=== PATIENT | male | born 1960 | race Caucasian/White ===

== ENCOUNTER 2019-07-10 06:03 | Outpatient (RCR) | payer MEDICARE, MEDICAID, SELFPAY | END 2019-07-22 00:01 | LOC: ONCMED 06:03 | PROVIDERS: Visit Provider Internal Medicine Medical Oncology | DX: Z79.01 Long term (current) use of anticoagulants (principal) | CPT/HCPCS: 85610 ==

== ENCOUNTER 2019-08-02 13:33 | Inpatient (IN) | payer MEDICARE, MEDICAID, SELFPAY ==
[2019-08-02] VITALS (14 sets, daily range): BP systolic 84–131; BP diastolic 54–82; PULSE 75–96; RESP 16–20; TEMP 36.3–37; O2SAT 85–94; BMI 23.0
--- NOTE | 2019-08-02 13:46 | ED_ITS ---
Entered by Abe Ferrell LPN, acting as scribe for Lizzette Gallego DO HPI - Alcohol General: Chief Complaint: Alcohol Stated Complaint: ETOH INTOX/SI Time Seen by Provider: 08/02/19 13:50 Source: patient, EMS and RN notes reviewed Mode of arrival: EMS Limitations: no limitations History of Present Illness: HPI narrative: 59 yo male presents with alcohol in toxication c/o suicidal thoughts. Pt admits he is an alcoholic, has gone through withdrawals before. He has drank beer and Vodka today, last drink 2 hours ago. He reports a friend came over and found him in the floor today and EMS was called. He admits to suicidal thoughts with plan to jump off a roof. He has bruising noted to the left eye and forehead, he states from 2 days ago. Associated symptoms: Reports depression and suicidal ideation; Deny abdominal pain, nausea or vomiting Review of Systems Const: Denies: fever, chills, change in appetite or malaise Eyes: Denies: change in vision, blurry vision, eye discharge or eye redness ENMT: Denies: throat pain, uvular edema, painful swallowing, mouth pain, dental pain, nasal congestion or facial/sinus pain Card: Denies: chest pain, irregular heart rhythm, swelling of feet/ankles, shortness of breath on exertion, shortness of breath when lying down or leg pain with exertion Resp: Denies: shortness of breath, productive cough, wheezing or coughing up blood GI: Denies: abdominal pain, nausea, vomiting, diarrhea, constipation or fecal incontinence : Denies: flank pain, painful urination, urinary frequency, urinary urgency or urinary hesitancy Musc: Denies: neck pain, back pain, extremity pain or extremity swelling Skin/Breast: Denies: rash, itching, redness, yellow skin or dry skin Neuro: Denies: headache, numbness in extremities, weakness in extremities, changes in sensation, lack of coordination or difficulty walking Psych: Reports: depression, hopelessness and suicidal ideation; Denies: anxiety, mood swings, panic attacks, sleeping less or homicidal ideation Endo: Denies: excessive urination, excessive thirst or tired all the time Obey/Lymph: Denies: easy bruising, petechiae or enlarged lymph nodes All/Imm: Denies: hives, throat swelling, facial swelling, acute wheezing or seasonal allergies PFSH ED PFSH: Statuses (acute, chronic, etc) shown below reflect problem list status as previously entered and may not be historically accurate Social History Smoking and tobacco status: current every day smoker Alcohol intake: never Physical Exam Const: COMMON NORMALS: oriented x3, no limitations, alert and well nourished GENERAL APPEARANCE: cooperative, well kempt, well developed, anxious and odor of alcohol detected ORIENTATION/CONSCIOUSNESS: Yes awake, Yes oriented to person, Yes oriented to place and Yes oriented to time HENMT: COMMON NORMALS: normocephalic, hearing grossly normal bilaterally, external ears normal, EAC's normal, external nose normal, nasal mucous membranes and turbinates normal, moist oral mucous membranes, oropharynx normal and dentition normal HEAD & SCALP: normocephalic, abrasion left frontal and hematoma left occipital HEAD IMAGES: 1. abrasion to forehead, medial left eye ecchymosis all healing- 2 days old FACE & SINUS: normal facial exam NOSE: external nose normal and nasal mucous membranes and turbinates normal EXTERNAL EAR: Yes external ears normal EXTERNAL AUDITORY CANAL: EAC's normal TYMPANIC MEMBRANE: TM's normal bilaterally MOUTH: oral and palatal mucosa normal, lip normal and tongue normal THROAT: no uvular edema Eye: COMMON NORMALS: PERRL, EOMs intact bilaterally, conjunctivae normal, no scleral icterus and normal visual lee by confrontation GENERAL EYE: normal light reflex VISUAL ACUITY: Yes acuity normal ALIGNMENT: Yes alignment normal PERIORBITAL: periorbital findings normal EYELID: eyelid abnormal left upper eyelid (ecchymosis) CONJUNCTIVA: Yes conjunctivae normal SCLERA: sclerae normal PUPIL: Yes PERRL and Yes accommodation reflex normal DIRECT OPHTHALMOSCOPY: Yes normal light reflex Neck/C-Spine: COMMON NORMALS: full ROM, no lymphadenopathy, supple, no meningeal signs and no JVD GENERAL: Yes normal visual inspection CAROTIDS: Yes normal carotid upstroke CERVICAL SPINE: Yes cervical ROM normal Lymph: LYMPHATIC: no lymphadenopathy noted Chest: COMMONS NORMALS: inspection of chest normal CHEST: Yes symmetrical chest wall rise Resp: COMMON NORMALS: normal respiratory effort, no retractions, no use of accessory muscles and clear to auscultation bilaterally EFFORT & INSPECTION: Yes able to speak in complete sentences and Yes symmetric chest movement AUSCULTATION: clear to auscultation bilaterally Cardio: COMMON NORMALS: no JVD, regular rate, regular rhythm, S1 normal heart sound, S2 normal heart sound, no murmurs and peripheral pulses 2+ throughout RATE: regular rate RHYTHM: regular rhythm HEART SOUNDS: S1 normal and S2 normal PERIPHERAL PULSES: pulses 2+ throughout GI: COMMON NORMALS: normal to inspection, nondistended, normoactive bowel sounds and non-tender : COMMON NORMALS: Yes no CVA tenderness BLADDER/KIDNEY EXAM: Yes no CVA tenderness Back/Pelvis: COMMON NORMALS: no CVA tenderness, thoracic and lumbar spine normal to inspection, no thoracic nor lumbar tenderness and thoraco-lumbar ROM normal Extremity: COMMON NORMALS: normal to inspection, full ROM, normal capillary refill, no calf tenderness and no pedal edema Neuro: COMMON NORMALS: oriented x3, CN's II-XII intact bilaterally, moves all extremities, no focal motor deficits, no sensory deficits noted and gait normal SENSORIUM/ORIENTATION: Yes alert, Yes oriented to person, Yes oriented to place and Yes oriented to time MENINGEAL SIGNS: Yes no meningeal signs SPEECH: speech normal GAIT: Yes normal gait MOTOR EXAM: strength 5/5 throughout, no pronator drift and no tremor noted Psych: COMMON NORMALS: mental status grossly normal, thought process normal, cooperative, affect normal, speech normal and activity/motor behavior normal APPEARANCE: Yes well kempt SPEECH: Yes normal speech THOUGHT PROCESS: normal thought process THOUGHT CONTENT: Yes normal thought content INSIGHT: insight good Skin: COMMON NORMALS: no rashes or lesions noted, no wounds, skin turgor normal and no jaundice GENERAL SKIN EXAM: no rashes or lesions noted and turgor normal Course Reevaluation(s): Reevaluation #1: Discussed with Dr. Dunbar. She accepts pt for admission. He will need alcohol detox and psych evaluation. Time: 15:22 Vital Signs: Vital signs: Vital Signs Temperature 97.4 F L 08/02/19 13:35 Pulse Rate 79 08/02/19 13:35 Respiratory Rate 16 08/02/19 13:35 Blood Pressure 121/64 08/02/19 13:35 Pulse Oximetry 88 L 08/02/19 13:35 MDM - Alcohol MDM Narrative: Medical decision making narrative: suicidal ideation with plan, alcohol intoxication and addiction Differential Diagnosis: Differential diagnosis: Likely alcohol withdrawal syndrome Lab Data: Labs: Lab Results 08/02/19 08/02/19 08/02/19 Range/Units 14:15 14:15 14:21 WBC 9.1 (4.0-10.0) 10^3/ uL RBC 4.90 (4.1-5.3) 10^6/u L Hgb 16.0 (11.7-16.6) g/dL Hct 46.7 (42.0-52.0) % MCV 95.3 H (80-94) fL MCH 32.7 (28.0-34.0) pg MCHC 34.3 (30.0-36.0) g/dL RDW 13.3 (12.1-15.1) % Plt Count 183 (130-400) 10^3/c mm MPV 8.9 (7.4-10.4) fL Neut % (Auto) 71.2 % Lymph % (Auto) 21.7 % [place] % (Auto) 6.0 % Eos % (Auto) 0.2 % Baso % (Auto) 0.8 % Neut # (Auto) 6.5 (1.8-7.7) 10^3/u L Lymph # (Auto) 2.0 (0.8-4.8) 10^3/u L [place] # (Auto) 0.6 (0.2-0.9) 10^3/u L Eos # (Auto) 0.0 (0.0-0.8) 10^3/u L Baso # (Auto) 0.1 (0.0-0.1) 10^3/u L Nucleated RBC % (a uto) 0 % Nucleated RBCs # 0.0 /100WBC PT (10.5-13.3) SECO NDS INR (0.8-1.2) Sodium (136-145) mmol/L Potassium (3.5-5.1) mmol/L Chloride (98-107) mmol/L Carbon Dioxide (22-29) mmol/L Anion Gap (5-19) BUN (6-20) mg/dL Creatinine (0.7-1.2) mg/dL GFR Calculation (90-130) mL/min Glucose (74-109) mg/dL Calcium (8.6-10.0) mg/Dl Total Bilirubin (0.15-1.2) mg/dL AST (0-40) U/L ALT (0-41) U/L Alkaline Phosphata se (40-130) IU/L Total Protein (6.6-8.7) g/dL Albumin (3.5-5.2) g/dL Globulin (1.3-4.6) g/dL TSH (0.27-4.20) uIU/ mL Urine Color Yellow (Yellow) Urine Appearance Clear (CLEAR) Urine pH 5 (5-7) Ur Specific Gravit y 1.005 (1.005-1.030) Urine Protein Neg (Negative) Urine Glucose (UA) Norm (Normal) Urine Ketones Negative (Negative) Urine Occult Blood Neg (Negative) Urine Nitrate Negative (Negative) Urine Bilirubin Neg (NEGATIVE) Urine Urobilinogen Norm (Negative) mg/dL Ur Leukocyte Dayna ase Negative (Negative) Salicylates (3-10) mg/dL Urine Opiates Scre en Negative (Negative) ng/mL Acetaminophen (10-30) ug/mL Ur Barbiturates Sc reen Negative (Negative) ng/mL Ur Phencyclidine S crn Negative (Negative) ng/mL Ur Amphetamines Sc reen Negative (Negative) ng/mL U Benzodiazepines Scrn Negative (Negative) ng/mL Urine Cocaine Scre en Negative (Negative) ng/mL U Marijuana (THC) Screen Negative (Negative) ng/mL Ethyl Alcohol (0-10) mg/dL 08/02/19 08/02/19 Range/Units 14:21 14:21 WBC (4.0-10.0) 10^3/ uL RBC (4.1-5.3) 10^6/u L Hgb (11.7-16.6) g/dL Hct (42.0-52.0) % MCV (80-94) fL MCH (28.0-34.0) pg MCHC (30.0-36.0) g/dL RDW (12.1-15.1) % Plt Count (130-400) 10^3/c mm MPV (7.4-10.4) fL Neut % (Auto) % Lymph % (Auto) % [place] % (Auto) % Eos % (Auto) % Baso % (Auto) % Neut # (Auto) (1.8-7.7) 10^3/u L Lymph # (Auto) (0.8-4.8) 10^3/u L [place] # (Auto) (0.2-0.9) 10^3/u L Eos # (Auto) (0.0-0.8) 10^3/u L Baso # (Auto) (0.0-0.1) 10^3/u L Nucleated RBC % (a uto) % Nucleated RBCs # /100WBC PT 13.60 H (10.5-13.3) SECO NDS INR 1.01 (0.8-1.2) Sodium 134 L (136-145) mmol/L Potassium 3.6 (3.5-5.1) mmol/L Chloride 94 L (98-107) mmol/L Carbon Dioxide 21 L (22-29) mmol/L Anion Gap 22.6 H (5-19) BUN 5 L (6-20) mg/dL Creatinine 0.6 L (0.7-1.2) mg/dL GFR Calculation 138.4 H (90-130) mL/min Glucose 160 H (74-109) mg/dL Calcium 8.8 (8.6-10.0) mg/Dl Total Bilirubin 0.5 (0.15-1.2) mg/dL AST 51 H (0-40) U/L ALT 44 H (0-41) U/L Alkaline Phosphata se 108 (40-130) IU/L Total Protein 7.1 (6.6-8.7) g/dL Albumin 4.2 (3.5-5.2) g/dL Globulin 2.9 (1.3-4.6) g/dL TSH 0.47 (0.27-4.20) uIU/ mL Urine Color (Yellow) Urine Appearance (CLEAR) Urine pH (5-7) Ur Specific Gravit y (1.005-1.030) Urine Protein (Negative) Urine Glucose (UA) (Normal) Urine Ketones (Negative) Urine Occult Blood (Negative) Urine Nitrate (Negative) Urine Bilirubin (NEGATIVE) Urine Urobilinogen (Negative) mg/dL Ur Leukocyte Dayna ase (Negative) Salicylates < 0.3 L (3-10) mg/dL Urine Opiates Scre en (Negative) ng/mL Acetaminophen < 5.0 L (10-30) ug/mL Ur Barbiturates Sc reen (Negative) ng/mL Ur Phencyclidine S crn (Negative) ng/mL Ur Amphetamines Sc reen (Negative) ng/mL U Benzodiazepines Scrn (Negative) ng/mL Urine Cocaine Scre en (Negative) ng/mL U Marijuana (THC) Screen (Negative) ng/mL Ethyl Alcohol 288 H (0-10) mg/dL Other Data: Attestation for Other Data: I personally reviewed and interpreted the following: Discharge Plan Discharge Patient Disposition: Admitted As Inpatient Clinical Impression: Depression with suicidal ideation Alcoholic intoxication Qualifiers: Complication of substance-induced condition: with unspecified complication Qualified Code(s): F10.929 - Alcohol use, unspecified with intoxication, unspecified Condition: Stable Referrals: Abdoul Morejon MD [Primary Care Provider] - Coding Level of Care Code ED Programming Equipment Operator for Chg Fwd Exam Problem Focused The documentation recorded by the Mariaelena mcdowell Dani Elizabeth, LPN, accurately reflects the service I personally performed and the decisions made by , Lizzette Gallego, DO
--- NOTE | 2019-08-02 14:04 | ECG_ITS ---
Measurements Intervals [place] Rate: 97 P: 71 WY: 178 QRS: 69 QRSD: 107 T: 74 QT: 379 QTc: 482 SINUS RHYTHM NONSPECIFIC T-WAVE ABNORMALITY Compared to ECG 06/21/2019 15:06:43 T-wave abnormality now present Sinus tachycardia no longer present Electronically Signed On 08-02-2019 16:47:53 MANAGER AUTOM[employer] by Adilia Clay M.D. [email or web address]
[2019-08-02] MEDS: nicotine 21 mg Patch 1 PATCH TRANSDERMA (14:18)
[2019-08-02] MEDS: sodium chloride 0.9% 1,000 ML 999 ML IV (14:18)
[2019-08-02] MEDS: LORazepam 2 mg/mL INJ 1 mL IM (14:18)
[2019-08-02 14:25] LABS: Add Urine Microscopic? NO
[2019-08-02 14:25] LABS: Basophils # 0.1 10^3/uL (0.0-0.1); Basophils % 0.8 %; Eosinophils % 0.2 %; Hematocrit 46.7 % (42.0-52.0); Lymphocytes % 21.7 %; Mean Corpuscular HGB Conc 34.3 g/dL (30.0-36.0); Mean Corpuscular Hemoglobin 32.7 pg (28.0-34.0); Mean Corpuscular Volume 95.3 fL (80-94); Mean Platelet Volume 8.9 fL (7.4-10.4); Monocytes # 0.6 10^3/uL (0.2-0.9); Neutrophils # 6.5 10^3/uL (1.8-7.7); Neutrophils % 71.2 %; Nucleated Red Blood Cells % 0 %; Platelet Count 183 10^3/cmm (130-400); Red Cell Distribution Width 13.3 % (12.1-15.1); White Blood Count 9.1 10^3/uL (4.0-10.0)
[2019-08-02 14:39] LABS: Urine Appearance Clear (CLEAR); Urine Color Yellow (Yellow); pH Urine 5 (5-7)
[2019-08-02 14:40] LABS: Bilirubin Urine Neg (NEGATIVE); Blood Urine Neg (Negative); Glucose Urine UA Norm (Normal); Ketones Urine Negative (Negative); Leukocyte Esterase Urine Negative (Negative); Nitrate Urine Negative (Negative); Protein Urine Neg (Negative); Specific Gravity, Urine 1.005 (1.005-1.030); Urobilinogen Urine Norm (Negative)
[2019-08-02 15:00] LABS: Amphetamines Screen Urine Negative (Negative); Barbiturates Screen Urine Negative (Negative); Benzodiazepines Screen Urine Negative (Negative); Cocaine Screen Urine Negative (Negative); Opiate Screen Urine Negative (Negative); PCP Screen Urine Negative (Negative); THC Screen Urine Negative (Negative)
[2019-08-02 15:01] LABS: Alanine Aminotransferase 44 U/L (0-41); Albumin Level 4.2 g/dL (3.5-5.2); Alcohol Level 288 mg/dL (0-10); Alkaline Phosphatase 108 IU/L (40-130); Anion Gap 22.6 (5-19); Aspartate Amino Transferase 51 U/L (0-40); Blood Urea Nitrogen 5 mg/dL (6-20); Calcium 8.8 mg/Dl (8.6-10.0); Carbon Dioxide 21 mmol/L (22-29); Chloride 94 mmol/L (98-107); Globulin 2.9 g/dL (1.3-4.6); Glomerular Filtration Rate 138.4 mL/min (90-130); Glucose 160 mg/dL (74-109); Potassium 3.6 mmol/L (3.5-5.1); Sodium 134 mmol/L (136-145); Thyroid Stimulating Hormone 0.47 uIU/mL (0.27-4.20); Total Bilirubin 0.5 mg/dL (0.15-1.2); Total Protein 7.1 g/dL (6.6-8.7)
[2019-08-02 15:05] LABS: Acetaminophen < 5.0 ug/mL (10-30); Salicylate < 0.3 mg/dL (3-10)
[2019-08-02 15:11] LABS: INR 1.01 (0.8-1.2)
--- NOTE | 2019-08-02 16:33 | PM.HP ---
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 Patient is acutely inebriated during my assessment in the ER so history obtained from mother and best friend at bedside as well as review of medical record. Patient is known to me from previous admission in 2018. He has been admitted at our facility previously for similar symptoms, most recently in May 2019 during which time he was acutely intoxicated and he was discharged on Xanax, Wellbutrin and already enrolled in an outpatient alcohol rehab program. Mother states that he has been drunk for approximately 4 days, patient does live alone though she checks on him daily. Unsure how much she has been drinking but he has been consuming vodka and beer, she has noted him to be hallucinating both visual and auditory. He has seemed more depressed lately but she cannot recall having heard him express wanting to hurt himself or a specific plan to do this. He has been trying to wean himself off of alcohol and she has been trying to limit his financial resources to prevent him from having another episode of the same without much success. Patient follows up in [place] at the infectious disease clinic and mother thinks that he may have had his HIV medications changed recently but she is unsure of this and I am unable to confirm this at this time. He follows up with Dr. Morejon for his history of B-cell lymphoma. Last CD4 count available on our records is from 2018 and was 249. 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 He is on prophylactic treatment with Bactrim and Diflucan. Work-up in the ER today shows a normal CBC, normal chemistry other than a blood sugar of 160, negative UA, negative urine drug screen, alcohol level of 288, INR of 1.01. He is on anticoagulation with Coumadin for his history of PE after which he developed pulmonary hypertension. Vital signs are stable, he is saturating at about 88 to 89% on 4 L nasal cannula. Per my recollection he was previously oxygen dependent but I am unsure of whether this is still the case. Per report received from ER patient expressed SI with plan to jump off a roof, affidavits are in the chart and I requested 96-hour hold paperwork be completed as well. Olga is at bedside during my assessment in the ER. Due to his acute alcohol intoxication, high risk for severe withdrawal and 96-hour hold, he will be admitted to ICU for further care. Review of Systems General: Reports: ROS unobtainable due to medical condition (patient acutely intoxicated; some information obtained from family) Const: Reports: other (poor sleep) Psych: Denies: anxiety Medications/Allergies Home Medications Medication Instructions Recorded Confirmed Last Taken Type alprazolam [Xanax] 0.25 mg PO DAILY PRN 08/02/19 08/02/19 Unknown History apixaban [Eliquis] 5 mg PO BID 08/02/19 08/02/19 Unknown History bupropion HCl [Wellbutrin XL] 150 mg PO QAM 08/02/19 08/02/19 Unknown History dolutegravir-lamivudine [Dovato] 1 tab PO DAILY 08/02/19 08/02/19 Unknown History fentanyl 1 patch TRANSDERMAL Q72H 08/02/19 08/02/19 Unknown History lorazepam 1 mg PO DAILY PRN 08/02/19 08/02/19 Unknown History mirtazapine 15 mg PO DAILY 08/02/19 08/02/19 Unknown History Allergies Allergy/AdvReac Type Severity Reaction Status Date / Time codeine Allergy Unknown Verified 07/21/19 12:29 PFSH Acute PFSH: Statuses (acute, chronic, etc) shown below reflect problem list status as previously entered and may not be historically accurate Medical History (Updated 08/02/19 @ 16:37 by Consuelo Dunbar MD) Atrial fibrillation (Acute) Colon polyps (Acute) HIV (human immunodeficiency virus infection) (Acute) Lymphoma (Acute) Pulmonary embolism (Acute) Surgical History (Updated 08/02/19 @ 16:37 by Consuelo Dunbar MD) H/O colonoscopy (Acute) H/O hemorrhoidectomy (Acute) History of orchiectomy, unilateral (Acute) Family History Other No pertinent family history Social History Smoking and tobacco status: current every day smoker Alcohol intake: never Vitals/I&O/Wt Last Vital Signs Temp 97.4 F L 08/02/19 13:35 Pulse 96 08/02/19 16:00 Resp 17 08/02/19 16:00 BP 84/54 08/02/19 16:00 Pulse Ox 88 L 08/02/19 13:35 Weight last 48 hrs Weight 74.843 kg Physical Exam Const: COMMON NORMALS: no apparent distress GENERAL APPEARANCE: odor of alcohol detected ORIENTATION/CONSCIOUSNESS: Yes lethargic HENMT: COMMON NORMALS: normocephalic, head/scalp atraumatic and hearing grossly normal bilaterally HEAD & SCALP: normocephalic and atraumatic Eye: COMMON NORMALS: PERRL and EOMs intact bilaterally CONJUNCTIVA: Yes conjunctiva abnormal (injected, bilaterally) PUPIL: Yes PERRL Neck/C-Spine: COMMON NORMALS: full ROM GENERAL: Yes normal visual inspection and Yes trachea midline Resp: COMMON NORMALS: normal respiratory effort, no retractions, no use of accessory muscles and clear to auscultation bilaterally EFFORT & INSPECTION: Yes able to speak in complete sentences, Yes symmetric chest movement and No tachypneic AUSCULTATION: clear to auscultation bilaterally Cardio: COMMON NORMALS: regular rate, regular rhythm, S1 normal heart sound, S2 normal heart sound and no murmurs RATE: regular rate RHYTHM: regular rhythm HEART SOUNDS: S1 normal and S2 normal GI: COMMON NORMALS: normal to inspection, nondistended, normoactive bowel sounds, soft to palpation and non-tender PALPATION: Yes soft Extremity: COMMON NORMALS: normal to inspection, full ROM and no clubbing, cyanosis or edema; negative for no pedal edema Neuro: COMMON NORMALS: oriented x3 Psych: ATTENTION/CONCENTRATION: Yes attention grossly impaired and Yes concentration grossly impaired MEMORY/COGNITION: Yes memory grossly impaired (acutely intoxicated) Skin: COMMON NORMALS: no rashes or lesions noted, no jaundice, no petechiae and no mottling GENERAL SKIN EXAM: no rashes or lesions noted Data : 08/02/19 14:21 08/02/19 14:21 Other Labs: Noted urine drug screen which is negative, EtOH level of 288, INR of 1.01 A&P Assessment and plan (1) Alcoholic intoxication: -acutely intoxicated, alcohol level of 288 -very high risk for alcohol withdrawal -CIWA protocol -fall, aspiration, seizure precautions -IVF hydration -keep NPO until more consistently awake -give 1 dose of IV thiamine now -monitor lytes, check CPK, Mg, Ph -telemetry monitoring -monitor vital signs -Has prior history of severe DTs with need for intubation for airway protection Status: Acute Qualifiers: Complication of substance-induced condition: with unspecified complication Qualified Code(s): F10.929 - Alcohol use, unspecified with intoxication, unspecified Code(s): F10.929 - Alcohol use, unspecified with intoxication, unspecified (2) Depression with suicidal ideation: -has known hx of depression, with prior [facility] admissions, last in 05/2019 -affidavits and 96 hr hold paperwork completed in ED, in chart -sitter at bedside -will need psychiatric evaluation once medically stable -given current inebriation, will hold sedating meds, antipsychotics, antidepressants, narcotics Status: Acute Code(s): F32.9 - Major depressive disorder, single episode, unspecified; R45.851 - Suicidal ideations Additional A&P Information Additional A&P Information: -hx of PE/DVT: on chronic anticoagulation with Coumadin; INR-1.01 (subtherapeutic) -hx of B-cell lymphoma of L testicle s/p orchiectomy, chemo + RT. Follows up with Dr. Morejon -Pulmonary HTN; resume sildenafil -Chronic smoker: nicotine patch -HIV, last CD4 count unknown; resume Bactrim, Diflucan, HAART once meds confirmed -Chronic pain on chronic narcotics; hold this -PUD; PPI -hx of diverticular disease -diet when appropriate -GI ppx with PPI -DVT ppx not needed as on therapeutic AC with Coumadin; daily INR -Dispo: pending psychiatric evaluation -Code status: FULL code -ICU admission due to 96 hr hold, high risk for alcohol withdrawal Attestations Medical Necessity Statement*: Flakito Almanzar's hospital stay will require greater than 2 midnights for management of acute alcohol intoxication with high risk for severe withdrawal, SI and on 96 hr hold. Time Spent in Patient Care: Greater than 35 minutes (>than 50% of time spent in counselling and/or direct pt care on unit). Coding Level of Care Code Acute Wood Sash And Frame Carpenter for Osmin Fwd Diagnoses Alcoholic intoxication F10.929 Complication of substance-induced condition: with unspecified complication Depression with suicidal ideation F32.9; R45.851
[2019-08-02] MEDS: sodium chlor 0.9% + KCl 20 mEq 20 MEQ/1,000 ML BAG 125 MEQ IV (17:09)
[2019-08-02 17:41] LABS: Creatine Phosphokinase 127 U/L (39-308); Phosphorus 3.2 mg/dL (2.5-4.5)
[2019-08-02] MEDS: apixaban 5 mg Tablet PO (21:08)
[2019-08-02] MEDS: LORazepam 2 mg Tablet PO (21:25)
[2019-08-03] VITALS (11 sets, daily range): BP systolic 104–154; BP diastolic 59–89; PULSE 88–103; RESP 17–23; TEMP 36.9; O2SAT 91–94; BMI 24.0
[2019-08-03] MEDS: sodium chlor 0.9% + KCl 20 mEq 20 MEQ/1,000 ML BAG 125 MEQ IV ×2 (00:03→09:23)
[2019-08-03] MEDS: LORazepam 2 mg Tablet PO ×4 (00:45→15:23)
[2019-08-03 05:42] LABS: Magnesium 1.9 mg/dL (1.7-2.3); Phosphorus 2.5 mg/dL (2.5-4.5)
[2019-08-03] MEDS: pantoprazole DR 40 mg Tablet PO (05:58)
[2019-08-03] MEDS: multivitamin therapeutic Tablet 1 TAB PO (05:58)
[2019-08-03] MEDS: dilTIAZem ER (24HR) 240 mg Capsule PO (05:58)
--- NOTE | 2019-08-03 08:01 | P.PN_ITS ---
Subjective Subjective: Interval history: Morning labs noted, had 450 mL urine output and 1 bowel movement overnight. Seems to be a little bit more awake this morning. Requesting something to eat. Received 2 doses of p.o. Ativan for total of 4 mg. Patient seen and examined, awake, still quite unsteady on his feet, states that he is having diarrhea from the alcohol and is requesting Imodium. Also requesting nicotine patch as he smokes 1 pack a day. Vital signs stable. Has tolerated oral intake without difficulty. Will be seen by psychiatry later today. Medications: Reviewed: Yes Medication Review Details: Active Medications Generic Name Dose Route Start Last Admin Trade Name Freq PRN Reason Stop Dose Admin Apixaban 5 mg 08/02/19 18:00 08/02/19 21:08 Eliquis PO 5 mg BID GRACIELA Administration Diltiazem HCl 240 mg 08/03/19 06:00 08/03/19 05:58 Cardizem Cd (24h r) PO 240 mg QAM GRACIELA Administration Ferrous Sulfate 324 mg 08/03/19 09:00 Ferrous Sulfate PO DAILY GRACIELA Fluconazole 100 mg 08/03/19 09:00 Diflucan Tab PO DAILY GRACIELA Folic Acid 1 mg 08/03/19 09:00 Folic Acid PO DAILY GRACIELA Potassium Chloride /Sodium Chloride 20 meq in 1,000 m ls @ 125 mls/hr 08/02/19 16:30 08/03/19 00:03 Sodium Chlor 0.9 % + Kcl 20 Meq IV 125 mls/hr .Q8H GRACIELA Administration Lorazepam 2 mg 08/02/19 16:26 Ativan IM Q4H PRN ALCOWD Protocol Lorazepam 2 mg 08/02/19 16:26 Ativan IVP PRN PRN WITHDRAWAL Protocol Lorazepam 2 mg 08/02/19 16:26 08/03/19 00:45 Ativan PO 2 mg Q4H PRN Administration WITHDRAWAL Protocol Multivitamins Ther apeutic 1 tab 08/03/19 06:00 08/03/19 05:58 Multivitamin Tab PO 1 tab QAM GRACIELA Administration Non-Formulary Medi cation 1 tab 08/03/19 09:00 Dolutegravir-Vega ivudine [Dovato] PO DAILY GRACIELA Non-Formulary Medi cation 1 tab 08/03/19 09:00 Emtricitabine-Te nofovir Alafen [De scovy] PO DAILY GRACIELA Non-Formulary Medi cation 20 mg 08/02/19 21:00 Sildenafil (Pulm .Hypertension) PO TID GRACIELA Pantoprazole Sodiu m 40 mg 08/03/19 06:00 08/03/19 05:58 Protonix PO 40 mg QAM GRACIELA Administration Potassium Chloride 20 meq 08/02/19 18:00 08/02/19 21:08 Klor-Con 10 PO 20 meq BID GRACIELA Administration Thiamine Mononitra te 100 mg 08/03/19 09:00 Vitamin B-1 PO DAILY [facility] Trimethoprim/Sulfa methoxazole 1 tab 08/04/19 10:00 Bactrim Ds PO [id number] [facility] Protocol codeine Allergy (Verified 07/21/19 12:29) Unknown Vitals/I&O/Wt Last Vital Signs Temp 98.5 F 08/03/19 04:00 Pulse 103 H 08/03/19 07:32 Resp 23 H 08/03/19 06:00 BP 146/88 08/03/19 06:00 Pulse Ox 92 08/03/19 07:32 08/02/19 08/03/19 08/03/19 22:59 06:59 14:59 Intake Total 400 / 400 862.5 / 1262.5 Output Total 450 / 450 Balance -50 / -50 862.5 / 812.5 Weight last 48 hrs Weight 78.245 kg Weight 74.843 kg Physical Exam Const: COMMON NORMALS: no apparent distress and oriented x3 GENERAL APPEARANCE: disheveled (Unkempt) and odor of alcohol detected OTHER: HENMT: COMMON NORMALS: normocephalic, head/scalp atraumatic and hearing grossly normal bilaterally HEAD & SCALP: normocephalic and atraumatic Eye: COMMON NORMALS: PERRL and EOMs intact bilaterally CONJUNCTIVA: Yes conjunctiva abnormal (injected, bilaterally) PUPIL: Yes PERRL Neck/C-Spine: COMMON NORMALS: full ROM GENERAL: Yes normal visual inspection and Yes trachea midline Resp: COMMON NORMALS: normal respiratory effort, no retractions, no use of accessory muscles and clear to auscultation bilaterally EFFORT & INSPECTION: Yes able to speak in complete sentences, Yes symmetric chest movement and No tachypneic AUSCULTATION: clear to auscultation bilaterally Cardio: COMMON NORMALS: regular rate, regular rhythm, S1 normal heart sound, S2 normal heart sound and no murmurs RATE: regular rate RHYTHM: regular rhythm HEART SOUNDS: S1 normal and S2 normal GI: COMMON NORMALS: normal to inspection, nondistended, normoactive bowel sounds, soft to palpation and non-tender PALPATION: Yes soft Extremity: COMMON NORMALS: normal to inspection, full ROM and no clubbing, cyanosis or edema; negative for no pedal edema Neuro: COMMON NORMALS: oriented x3 Psych: COMMON NORMALS: mental status grossly normal, cooperative and denies suicidal ideation Skin: COMMON NORMALS: no rashes or lesions noted, no jaundice, no petechiae and no mottling GENERAL SKIN EXAM: no rashes or lesions noted A&P Assessment and plan (1) Alcoholic intoxication: -acutely intoxicated on arrival, alcohol level of 288. More awake, alert and oriented today -very high risk for alcohol withdrawal -CIWA protocol -fall, aspiration, seizure precautions -IVF hydration -start on regular diet as more awake today -given 1 dose of IV thiamine; continue daily thiamine, folic acid, multivitamins -continue to monitor lytes, CPK, Mg, Ph all wnl -telemetry monitoring -VSS; continue to monitor -Has prior history of severe DTs with need for intubation for airway protection; respiratory status stable for now Status: Acute Qualifiers: Complication of substance-induced condition: with unspecified complication Qualified Code(s): F10.929 - Alcohol use, unspecified with intoxication, unspecified Code(s): F10.929 - Alcohol use, unspecified with intoxication, unspecified (2) Depression with suicidal ideation: -has known hx of depression, with prior [facility] admissions, last in 05/2019 -affidavits and 96 hr hold paperwork completed in ED, in chart -sitter at bedside -will need psychiatric evaluation once medically stable -given current inebriation, will hold sedating meds, antipsychotics, antidepressants, narcotics Status: Acute Code(s): F32.9 - Major depressive disorder, single episode, unspecified; R45.851 - Suicidal ideations Additional A&P Information Additional A&P Information: -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 Follows up with Dr. Morejon -Pulmonary HTN; on sildenafil -Chronic smoker: nicotine patch -HIV, last CD4 count unknown; continue Bactrim, Diflucan, HAART once meds confirmed -Chronic pain on chronic narcotics; hold this -PUD; PPI -hx of diverticular disease -regular diet as tolerated -GI ppx with PPI -DVT ppx not needed as on therapeutic AC with Eliquis -Dispo: pending psychiatric evaluation -Code status: FULL code -ICU admission due to 96 hr hold, high risk for alcohol withdrawal Attestations Medical Necessity Statement*: Patient requires hospitalization for continued management of acute alcohol intoxication, SI, currently on 96-hour hold. Coding Level of Care Code Acute Fire And Safety Helper for Osmin Fwd Exam Problem Focused Diagnoses Alcoholic intoxication F10.929 Complication of substance-induced condition: with unspecified complication Depression with suicidal ideation F32.9; R45.851
[2019-08-03] MEDS: ferrous sulfate EC 325 mg Tablet 324 MG PO (09:24)
[2019-08-03] MEDS: fluconazole 100 mg Tablet PO (09:24)
[2019-08-03] MEDS: thiamine 100 mg Tablet PO (09:24)
[2019-08-03] MEDS: apixaban 5 mg Tablet PO ×2 (09:24→17:49)
[2019-08-03] MEDS: folic acid 1 mg Tablet PO (09:24)
--- NOTE | 2019-08-03 11:06 | P.CONIM_ITS ---
Providers/Reason for Consult Consulting Physican/Specialty*: Nkio Bang M.D., Psychiatry. Reason for Consult*: Suicidal threats and concern for active suicidality, depression and alcohol use with intoxication. Attending Physician: Consuelo Dunbar MD Primary Care Provider: Abdoul Morejon MD Psych Consult HPI History of Present Illness Flakito Almanzar is a 59 year old male known to this typewriter assembly and parts inspector the previous interactions as he has been to the neuropsych unit 3 times since last March and this is the second ICU consult by this typewriter assembly and parts inspector on Flakito since then. He has generally come in with suicidal thinking, depression and alcohol use/intoxication, been managed appropriately in the ICU, gone to the neuropsych unit for mental health treatment and been discharged without major incident. Unfortunately multiple times he has reported a plan to go to inpatient rehabilitation, and that has never actually happened. At some point prior to discharge he gives some intellectualized response as to why it's impossible or not the best for him that he go to the inpatient rehabilitation. Those things include commitments to the charge, commitments to school in his academic pursuits, as well as personal desires not to go. Today we discussed his presentation and concerns about lethality which he downplayed. He reported that he loves himself too much to commit suicide, that he knows we'll be sending us guide the committed suicide, as well as other reasons. He then went on to say that he would not be seen by this typewriter assembly and parts inspector again, he was discharged. It seemed peculiar way that he said it. He tried to say that he would not be coming back here, because he wasn't going to drink, but it did not seem that was what he meant. He tried to say that he had plans to go to rehabilitation in the morning and that this had been prearranged. That has mother was aware and that he had t o leave tonight so that he can get some things done that only he could do prior to going for 30 days. His demeanor raised enough concern that I discussed with Dr. Dunbar that we needed to confirm with his mother that this was a known plan otherwise it raises concerns that he was trying to discharge to possibly harm himself. Otherwise he reported that there have been no changes in his psychosocial conditions. He reports that his history and situation had not changed and was consistent with my previous interview in March which can be seen below. Per last consult: History of Present Illness Date of Service: Apr 04, 2019 Reason for Consultation: Intoxication with reported aggressive threats Consulting Service and Doctor: Niko Bang M.D. Psychiatry. HPI: Flakito presents today somewhat lethargic having had a significant amount of Ativan to combat his alcohol withdrawal reporting that he's been having a fairly tough time recently. He reports that alcohol use has changed to an alarming level the last year and reports that the issue surrounds dealing with his homosexuality and the fact that he feels unworthy of guys love given his of homosexuality. He denies having any significant mental health treatment or hospitalizations or any problems and reports that he grew up in a fairly voodoo family and reports that about a year ago he began to really struggle with his known homosexuality to himself but reports that he began living a clearly homosexual life which she is struggle with from a spiritual standpoint. Records show confusing contradictions as he has had the diagnosis of HIV for some time and is unclear how that occurred however this is how he reports the story. He reports that he has been drinking about 4 pints of alcohol a day and reports that that has been going on for about a year. He reports he is probably only had a day here and there that he hasn't had a drink in this period of time. He also identifies that about 2 weeks ago he had a 1 or 2 day cessation of drinking where and he had a withdrawal seizure. He had reached out to etouches or this may have occurred during his emergency room stent however there is reportedly a bed available for him but we discussed the risks benefits and alternatives of home taking that bed with an understanding that he needs to be through the detox aspect of the situation prior to going to [facility]. His blood alcohol was 400 at about noon yesterday. He had gone to the emergency room and then left and apparently when he left the went home and had another pint of alcohol and was found unconscious and brought back to the emergency room which is how he got into the ICU. He reports a plan and agreement to work with the treatment team and psychiatric services to try to get him in a condition that it is safe for him to go to [facility] on Sunday at 8 AM when they would pick him up here at [facility] [place] [facility]. Active Meds: Current Hospital Medications: Medications (Trade) Dose Ordered Sig/[place] Route PRN Reason Start Time Stop Time Status Last Admin Dose Admin Potassium Chloride/Sodium Chloride 1,000 ml @ 125 mls/hr CONT IV 04/03/19 15:15 Hold 04/04/19 09:12 Thiamine Mononitrate (Thiamine Tab) 100 mg DAILY PO 04/04/19 10:00 04/04/19 09:10 Multivitamins Therapeutic (Therapeutic Multivitamin) 1 ea DAILY PO 04/04/19 10:00 04/04/19 09:10 Folic Acid/ Cyanocobalamin/ pyridoxin (Folic Acid Tab) 1 mg DAILY PO 04/04/19 10:00 04/04/19 09:10 Lorazepam (Ativan Inj) 2 mg PRN PRN IV FOR WITHDRAWAL 04/03/19 15:15 04/04/19 13:00 Lorazepam (Ativan Inj) 2 mg PRN PRN IM for Withdrawal 04/03/19 15:15 Lorazepam (Ativan Tab) 2 mg PRN PRN PO Withdrawal 04/03/19 15:15 04/04/19 16:07 Acetaminophen (Tylenol Tab) 650 mg Q4H PRN PO FOR MILD PAIN 04/03/19 15:15 Ondansetron HCl (Zofran Inj) 4 mg Q6H PRN IV FOR NAUSEA AND VOMITING 04/03/19 15:15 Pantoprazole Sodium (Protonix Tab) 40 mg DAILY PO 04/04/19 10:00 04/04/19 09:10 Enoxaparin Sodium (Lovenox) 40 mg Q24H SUBCUT 04/03/19 15:15 04/04/19 16:07 Nicotine (Nicoderm Patch) 21 mg DAILY PRN TD 04/04/19 04:30 04/04/19 05:05 Dexmedetomidine HCl 400 mcg/ Sodium Chloride 104 ml @ 0 mls/hr CONT IV 04/04/19 10:00 04/04/19 10:18 Haloperidol Lactate (Haldol Inj) 5 mg Q3H PRN IM FOR AGITATION 04/04/19 13:30 Home Meds: Home Medications: Active Reported [Opsumit] 1 Tab PO DAILY Symbicort 80-4.5 Mcg Inhaler (Budesonide/Formoterol Fumarate) 10.2 Gm Inhaler 2 Puff INH BID Iron Sulfate 325MG Tab (Ferrous Sulfate) 325 Mg Tabec 325 Mg PO BREAKFAST Diflucan Tab (Fluconazole) 100 Mg Tablet 100 Mg PO DAILY Wellbutrin XL (Bupropion HCl) 150 Mg Tab.sr.24h 150 Mg PO DAILY Trazodone Tab (Trazodone HCl) 150 Mg Tablet 300 Mg PO BEDTIME Klor Con Tab (Potassium Chloride) 20 Meq Tab.prt.sr 20 Meq PO TID Protonix Tab (Pantoprazole Sodium) 40 Mg Tabec 40 Mg PO DAILY [Descovy] 1 Tab PO DAILY Isentress Chew Tab (Raltegravir) 100 Mg Tab.chew 400 Mg PO BID Xanax Tab (Alprazolam) 0.25 Mg Tab 0.25 Mg PO TID Oxycodone IR (Oxycodone HCl) 30 Mg Tab 30 Mg PO QID PRN Duragesic Patch (Fentanyl) 50 Mcg Patch 50 Mcg TD Q72H Prednisone Tab (Prednisone) 10 Mg Tablet 20 Mg PO DAILY Narcan (Naloxone HCl) 4 Mg/Actuation [place] 4 Mg NASAL ONCE PRN 1 Days Cartia XT (Diltiazem HCl) 240 Mg Cap.sr.24h 240 Mg PO DAILY Pradaxa Cap (Dabigatran) 150 Mg Capsule 150 Mg PO BID Voltaren Gel (Diclofenac Gel) 100 Gm Gel..gm. 1 Applic TOP QID PRN Past Medical History Past Medical History: Please see ED and ICU notes for additional history. Other Family Medical History: He denies significant mental health, addiction or other issues in his family. He denies any history of suicide attempts or completions in his family. Other Past Social History: Developmental history: Flakito reports being the product of a normal . He endorses that he learn to walk and talk and met his development milestones on time. He denied any speech therapy, learning support, emotional support special education classes. Psychosocial history: He reports being the only child of his parents and that they were together when he was born. He denies any other siblings through their union with any other partners and reports that they never . He reports that his childhood was good but he was raised in a fairly voodoo family went to adventism on Sundays and Wednesdays at least. He reports he graduated from high school. He endorses being homosexual and his long-term relationship has not been very long. He denies ever being , never had any children, never been in the he endorses being a [employer]ist. He reports his longest tenure in any job was about 7 years. He reports he lives in a house alone. He denies any significant legal history. Meds Current Medications: Current Medications Generic Name Dose Route Start Last Admin Trade Name Freq PRN Reason Stop Dose Admin Apixaban 5 mg 08/02/19 18:00 08/03/19 09:24 Eliquis PO 5 mg BID [place] Administration Diltiazem HCl 240 mg 08/03/19 06:00 08/03/19 05:58 Cardizem Cd (24h r) PO 240 mg QAM [place] Administration Ferrous Sulfate 324 mg 08/03/19 09:00 08/03/19 09:24 Ferrous Sulfate PO 324 mg DAILY [place] Administration Fluconazole 100 mg 08/03/19 09:00 08/03/19 09:24 Diflucan Tab PO 100 mg DAILY [place] Administration Folic Acid 1 mg 08/03/19 09:00 08/03/19 09:24 Folic Acid PO 1 mg DAILY [place] Administration Potassium Chloride /Sodium Chloride 20 meq in 1,000 m ls @ 125 mls/hr 08/02/19 16:30 08/03/19 09:23 Sodium Chlor 0.9 % + Kcl 20 Meq IV 125 mls/hr .Q8H [place] Administration Lorazepam 2 mg 08/02/19 16:26 08/03/19 09:28 Ativan PO 2 mg Q4H PRN Administration WITHDRAWAL Protocol Multivitamins Ther apeutic 1 tab 08/03/19 06:00 08/03/19 05:58 Multivitamin Tab PO 1 tab QAM [place] Administration Pantoprazole Sodiu m 40 mg 08/03/19 06:00 08/03/19 05:58 Protonix PO 40 mg QAM [place] Administration Potassium Chloride 20 meq 08/02/19 18:00 08/03/19 09:24 Klor-Con 10 PO 20 meq BID [place] Administration Thiamine Mononitra te 100 mg 08/03/19 09:00 08/03/19 09:24 Vitamin B-1 PO 100 mg DAILY [place] Administration PFSH NPU PFSH: Statuses (acute, chronic, etc) shown below reflect problem list status as previously entered and may not be historically accurate Medical History (Updated 08/02/19 @ 16:37 by Consuelo Dunbar MD) Atrial fibrillation (Acute) Colon polyps (Acute) HIV (human immunodeficiency virus infection) (Acute) Lymphoma (Acute) Pulmonary embolism (Acute) Surgical History (Updated 08/02/19 @ 16:37 by Consuelo Dunbar MD) H/O colonoscopy (Acute) H/O hemorrhoidectomy (Acute) History of orchiectomy, unilateral (Acute) Family History Other No pertinent family history Social History Smoking and tobacco status: current every day smoker Alcohol intake: never Mental Status Exam MSE Comments: This is a well-nourished, well-developed white male with limited dressing, grooming and eye contact. Bruises of different ages were notable on his face. No abnormal movements except for psychomotor retardation. Cooperative with exam in mild distress. Speech was decreased rate and volume. Mood described as fine, affect depressed and despondent. Thought process organized. Thought content: Patient denied any suicidal or homicidal ideations, there were no delusions reported are noted, he denied any auditory or visual hallucinations. Attention and concentration were intact but memory was unreliable but none were formally tested. He is alert and oriented ?3. Insight and judgment are impaired. Vitals/I&O/Wt Last Vital Signs Temp 98.5 F 08/03/19 04:00 Pulse 103 H 08/03/19 07:32 Resp 20 H 08/03/19 10:00 BP 154/72 08/03/19 10:00 Pulse Ox 92 08/03/19 10:00 08/02/19 08/03/19 08/03/19 22:59 06:59 14:59 Intake Total 400 / 400 862.5 / 1262.5 1000 / 1000 Output Total 450 / 450 Balance -50 / -50 862.5 / 812.5 1000 / 1000 Weight last 48 hrs Weight 78.245 kg Weight 74.843 kg A&P Additional A&P Information Additional A&P Information: This is a 59-year-old white male with a long history of depression and alcohol use disorder with significant self-loathing and suicidal tendencies when intoxicated and relapsing, who presents to the ICU with reports of suicidal threats with denial of feeling suicidal but is not convincing. 1. Continue current medication. 2. Continue alcohol withdrawal protocol. 3. Agree with a 96 hour hold. 4. Transfer to neuropsych unit for definitive treatment. 5. Encourage discharged to a 30 day or more inpatient drug and alcohol treatment facility after concerns for lethality are managed. Attestations NPU Medical Necessity Statement*: Inpatient hospitalization is medically necessary and may clinically appropriate intervention at this time. We will monitor medications and titrate to effect. He will be in the hospital for over 2 mid nights. Patient will be transferred to the neuro psych unit for the 96 hour hold and definitive treatment. Likely length of stay 4-6 days. Coding Level of Care Code Acute Activities Leader for Osmin Ordonez
[2019-08-03] MEDS: diphenoxylate/atropine Tablet 1 TAB PO (11:12)
--- NOTE | 2019-08-03 11:59 | PC.CHAP ---
Pastoral Care Encounter/Spiritual Assessment Type of Contact [] Declined ground services instructor visit [] Patient/Family/Request visit [] Outpatient visit [] Follow-up visit [] Physician referral [] Code/Alert [x] Routine visit [] Staff referral [] Actively dying [x] Patient sleeping [] Family support [] [] Out of room [] Palliative care [] [] Receiving care in room [] Pre-surgical visit [] Trauma [] Long length of stay [x] ICU visit [] Other: Relational/Emotional Strength [] Patient feels connected with others/family/visitors/staff [] Distress [] Loneliness/isolation [] Abandonment Spirituality of Patient [] Person of Talia [] Attends Religious of their Talia [] Believes in Prayer [] Reads Bible or Congregation materials [] There are Spiritual issues to be addressed Sales Systems Engineer Interventions [] Prayer [] Active listening [] Non-anxious presence [] Spiritual/emotional support [] Crisis/trauma care [] Spiritual counseling [] Bereavement support [] Provided bereavement packet [] Provided Bible/devotional materials [] Provided toy/stuffed animal, coloring book to patient or family member [] Completed spiritual assessment [] Provided Communion [] Anointing/[place]ang[place] [] Salvation [] Other: Impact on Illness or Injury [] Angry [] Fearful [] Anxious [] Often cries [] Exhaustion [] Unable to work [] Unable to attend jewish [] Unable to walk/stand [] Unable to read [] Unable to drive [] Unable to eat/drink [] Unable to sleep [] Unable to be with family [] Other: Summary patient was sleeping. will do follow up visit. Time spent with patient 5min.
[2019-08-03] MEDS: nicotine 14 mg Patch 1 PATCH TRANSDERMA (15:57)
--- NOTE | 2019-08-03 17:50 | PC.NURSE ---
report called for transfer to
--- NOTE | 2019-08-03 18:44 | PC.NURSE ---
still pending transfer
[2019-08-04] MEDS: acetaminophen 325 mg Tablet 650 MG PO (03:49)
[2019-08-04] MEDS: pantoprazole DR 40 mg Tablet PO (06:16)
[2019-08-04] MEDS: dilTIAZem ER (24HR) 240 mg Capsule PO (06:16)
[2019-08-04] MEDS: multivitamin therapeutic Tablet 1 TAB PO (06:16)
[2019-08-04 06:28] VITALS: BP 166/104; PULSE 100; RESP 18; TEMP 36.9
[2019-08-04 07:22] LABS: Anion Gap 17.5 (5-19); Blood Urea Nitrogen 7 mg/dL (6-20); Calcium 9.8 mg/Dl (8.6-10.0); Carbon Dioxide 23 mmol/L (22-29); Chloride 100 mmol/L (98-107); Glomerular Filtration Rate 170.8 mL/min (90-130); Glucose 110 mg/dL (74-109); Potassium 3.5 mmol/L (3.5-5.1); Sodium 137 mmol/L (136-145)
[2019-08-04] MEDS: thiamine 100 mg Tablet PO (08:34)
[2019-08-04] MEDS: ferrous sulfate EC 325 mg Tablet 324 MG PO (08:34)
[2019-08-04] MEDS: apixaban 5 mg Tablet PO ×2 (08:36→17:11)
[2019-08-04] MEDS: folic acid 1 mg Tablet PO (08:36)
[2019-08-04] MEDS: nicotine 14 mg Patch 1 PATCH TRANSDERMA (08:36)
--- NOTE | 2019-08-04 10:50 | PM.NPN ---
Subjective NPU Subjective: Interval history: Flakito presents today reporting that things are going fine. He continues Dilaudid for discharge as he did in the ICU. But gives no clear reason why things changed and why and how he is going to make sure he continued to improve. He endorses a plan to go to the rehabilitation. Further investigation identify these known to them about the possibility of an outpatient rehabilitation but not impatient. He once again gave the reason for not doing inpatient rehabilitation being been busy and not having commitment. He is being somewhat cagey in some of his responses continue to raise the question of concern for safety. 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 Mental Status Exam MSE Comments: This is a well-nourished, well-developed white male with limited dressing, grooming and eye contact. Bruises of different ages were notable on his face. With the O2 cannula on. No abnormal movements except for psychomotor retardation. Cooperative with exam in mild distress. Speech was decreased rate and volume. Mood described as fine, affect depressed and despondent. Thought process organized. Thought content: Patient denied any suicidal or homicidal ideations, there were no delusions reported are noted, he denied any auditory or visual hallucinations. Attention and concentration were intact but memory was unreliable but none were formally tested. He is alert and oriented ?3. Insight and judgment are impaired. Vitals/I&O/Wt Last Vital Signs Temp 98.4 F 08/04/19 06:28 Pulse 100 08/04/19 06:28 Resp 18 08/04/19 06:28 BP 166/104 08/04/19 06:28 Pulse Ox 94 08/03/19 21:19 Weight last 48 hrs Weight 78.245 kg Weight 78.245 kg Weight 74.843 kg A&P Additional A&P Information Additional A&P Information: This is a 59-year-old white male with a long history of depression and alcohol use disorder with significant self-loathing and suicidal tendencies when intoxicated and relapsing, who presents to the ICU with reports of suicidal threats with denial of feeling suicidal but is not convincing. 1. Continue current medication. 2. Continue alcohol withdrawal protocol. 3. Restart some of his home HIV medications. 4. Encourage individual, group and milieu therapy. 5. Encourage discharged to a 30 day or more inpatient drug and alcohol treatment facility after concerns for lethality are managed. 6. Continue 1-1 given the tubing. Involuntary Hold Information 96 Hour Hold: 96 Hour Involuntary Admission: Yes 96 Hour Hold Ending Date: 08/08/19 96 Hour Hold Ending Time: 12:01 Attestations NPU Medical Necessity Statement*: Inpatient hospitalization is medically necessary and may clinically appropriate intervention at this time. We will monitor medications and titrate to effect. Likely length of stay 2-4 days. Coding Level of Care Code Acute Clinical Quality Assurance Associate for Osmin Ordonez
[2019-08-04 10:52] VITALS: PULSE 105; O2SAT 93
[2019-08-04] MEDS: sulfamethoxazole-trimeth DS 160-800 mg Tablet 1 TAB PO (10:56)
[2019-08-04] MEDS: fluconazole 100 mg Tablet PO (10:57)
[2019-08-04] MEDS: blistex lip oint 7 gm Tube 1 APPLIC TOPICAL (14:21)
[2019-08-04 14:28] VITALS: BP 132/89; PULSE 101; RESP 20; TEMP 36.5; O2SAT 95
[2019-08-04 20:03] VITALS: BP 143/88; PULSE 98; RESP 17; TEMP 36.9; O2SAT 94
[2019-08-04] MEDS: ondansetron 4 MG Tablet PO (20:15)
--- NOTE | 2019-08-04 22:02 | PC.NURSE ---
RN Note: Patient sitting in room with 1 to1 . He complains of nausea and feeling like he wanted to vomit. Good eye contact. Speech and behavior appropriate. only uses his oxygen when he is laying down otherwise he does not use his oxygen. Insight and judgment fair. Will continue to monitor patient for behavior and safety.
[2019-08-05] MEDS: pantoprazole DR 40 mg Tablet PO (05:45)
[2019-08-05] MEDS: dilTIAZem ER (24HR) 240 mg Capsule PO (05:45)
[2019-08-05] MEDS: multivitamin therapeutic Tablet 1 TAB PO (05:45)
[2019-08-05 06:00] VITALS: BP 131/81; PULSE 95; RESP 20; TEMP 37.3; O2SAT 91
[2019-08-05] MEDS: folic acid 1 mg Tablet PO (08:08)
[2019-08-05] MEDS: apixaban 5 mg Tablet PO ×2 (08:08→17:06)
[2019-08-05] MEDS: ferrous sulfate EC 325 mg Tablet 324 MG PO (08:08)
[2019-08-05] MEDS: thiamine 100 mg Tablet PO (08:08)
[2019-08-05] MEDS: nicotine 14 mg Patch 1 PATCH TRANSDERMA (08:09)
[2019-08-05] MEDS: fluconazole 100 mg Tablet PO (08:57)
--- NOTE | 2019-08-05 11:23 | PM.NPN ---
Subjective NPU Subjective: Interval history: Flakito presents today appearing better and less agitated less combative about collaborating on his wellness. We continue to struggle to get his HIV medication rectified partially representing his own lack of effective management of his condition with his increase in drinking. We work with his outpatient team to get the appropriate regimen in place. Additionally we were able to rally some of his support system together. We agreed to the plan of discharge tomorrow with a meeting with his inner cocopah to try to create an accountability that has appeared to be lacking in previous efforts. He reports that he is eating and sleeping better. Mental Status Exam MSE Comments: This is a well-nourished, well-developed white male with limited dressing, grooming and eye contact. Bruises of different ages were notable on his face. With the O2 cannula on. No abnormal movements except for psychomotor retardation. Cooperative with exam in mild distress. Speech was decreased rate and volume. Mood described as fine, affect slightly brighter. Thought process organized. Thought content: Patient denied any suicidal or homicidal ideations, there were no delusions reported are noted, he denied any auditory or visual hallucinations. Attention and concentration were intact and memory was more reliable but none were formally tested. He is alert and oriented ?3. Insight and judgment are impaired, but improving. Vitals/I&O/Wt Last Vital Signs Temp 99.2 F 08/05/19 06:00 Pulse 95 08/05/19 06:00 Resp 20 H 08/05/19 06:00 BP 131/81 08/05/19 06:00 Pulse Ox 91 08/05/19 06:00 Weight last 48 hrs Weight 78.245 kg A&P Additional A&P Information This is a 59-year-old white male with a long history of depression and alcohol use disorder with significant self-loathing and suicidal tendencies when intoxicated and relapsing, who presents to the ICU with reports of suicidal threats with denial of feeling suicidal but is not convincing. 1. Continue current medication. 2. Continue alcohol withdrawal protocol. 3. Encourage individual, group and milieu therapy. 4. Encourage discharged to a 30 day or more inpatient drug and alcohol treatment facility, but encourage the highest level of sober living care to which he is willing to commit. 6. Continue 1-1 given the tubing. Involuntary Hold Information 96 Hour Hold: 96 Hour Involuntary Admission: Yes 96 Hour Hold Ending Date: 08/08/19 96 Hour Hold Ending Time: 12:01 Attestations NPU Medical Necessity Statement*: Inpatient hospitalization is medically necessary and may clinically appropriate intervention at this time. We will monitor medications and titrate to effect. Tentative plan for discharge tomorrow. Likely length of stay 1-2 days. Coding Level of Care Code Acute Emergency Medical Technician/Driver for Osmin Ordonez
[2019-08-05 11:39] VITALS: PULSE 90; O2SAT 97
[2019-08-05] MEDS: blistex lip oint 7 gm Tube 1 APPLIC TOPICAL ×2 (12:20→17:59)
[2019-08-05 13:57] VITALS: BP 129/80; PULSE 98; RESP 20; TEMP 36.9; O2SAT 97
[2019-08-05 20:40] VITALS: BP 109/70; PULSE 92; RESP 18; TEMP 37.5; O2SAT 94
[2019-08-05] MEDS: trazodone 150 mg Tablet 300 MG PO (20:50)
[2019-08-05] MEDS: mirtazapine 15 mg Tablet PO (20:51)
[2019-08-06 00:45] VITALS: PULSE 89; O2SAT 96
[2019-08-06] MEDS: pantoprazole DR 40 mg Tablet PO (06:06)
[2019-08-06] MEDS: dilTIAZem ER (24HR) 240 mg Capsule PO (06:06)
[2019-08-06] MEDS: multivitamin therapeutic Tablet 1 TAB PO (06:07)
[2019-08-06 06:31] VITALS: BP 99/67; PULSE 90; RESP 18; TEMP 36.6; O2SAT 93
[2019-08-06] MEDS: nicotine 14 mg Patch 1 PATCH TRANSDERMA (08:52)
[2019-08-06] MEDS: ferrous sulfate EC 325 mg Tablet 324 MG PO (08:55)
[2019-08-06] MEDS: apixaban 5 mg Tablet PO (08:55)
[2019-08-06] MEDS: thiamine 100 mg Tablet PO (08:55)
[2019-08-06] MEDS: sulfamethoxazole-trimeth DS 160-800 mg Tablet 1 TAB PO (08:56)
[2019-08-06] MEDS: folic acid 1 mg Tablet PO (08:56)
[2019-08-06] MEDS: fluconazole 100 mg Tablet PO (08:56)
[2019-08-06 09:37] VITALS: PULSE 108; O2SAT 96
--- NOTE | 2019-08-06 10:27 | P.DS_ITS ---
Diagnoses at Discharge Discharge Diagnosis (1) Alcoholic intoxication: Status: Resolved Qualifiers: Complication of substance-induced condition: with unspecified complication Qualified Code(s): F10.929 - Alcohol use, unspecified with intoxication, unspecified (2) Depression with suicidal ideation: Status: Resolved Reason for Visit Reason for Visit: Reason For Visit: ETOH INTOX;SI 96 HOUR HOLD Brief History: Psych Consult HPI History of Present Illness Flakito Almanzar is a 59 year old male known to this senior writer the previous interactions as he has been to the neuropsych unit 3 times since last March and this is the second ICU consult by this senior writer on Flakito since then. He has generally come in with suicidal thinking, depression and alcohol use/intoxication, been managed appropriately in the ICU, gone to the neuropsych unit for mental health treatment and been discharged without major incident. Unfortunately multiple times he has reported a plan to go to inpatient rehabilitation, and that has never actually happened. At some point prior to discharge he gives some intellectualized response as to why it's impossible or not the best for him that he go to the inpatient rehabilitation. Those things include commitments to the charge, commitments to school in his academic pursuits, as well as personal desires not to go. Today we discussed his presentation and concerns about lethality which he downplayed. He reported that he loves himself too much to commit suicide, that he knows we'll be sending us guide the committed suicide, as well as other reasons. He then went on to say that he would not be seen by this senior writer again, he was discharged. It seemed peculiar way that he said it. He tried to say that he would not be coming back here, because he wasn't going to drink, but it did not seem that was what he meant. He tried to say that he had plans to go to rehabilitation in the morning and that this had been prearranged. That has mother was aware and that he had to leave tonight so that he can get some things done that only he could do prior to going for 30 days. His demeanor raised enough concern that I discussed with Dr. Dunbar that we needed to confirm with his mother that this was a known plan otherwise it raises concerns that he was trying to discharge to possibly harm himself. Otherwise he reported that there have been no changes in his psychosocial conditions. He reports that his history and situation had not changed and was consistent with my previous interview in March which can be seen below. Per last consult: History of Present Illness Date of Service: Apr 04, 2019 Reason for Consultation: Intoxication with reported aggressive threats Consulting Service and Doctor: Niko Bang M.D. Psychiatry. HPI: Flakito presents today somewhat lethargic having had a significant amount of Ativan to combat his alcohol withdrawal reporting that he's been having a fairly tough time recently. He reports that alcohol use has changed to an alarming level the last year and reports that the issue surrounds dealing with his homosexuality and the fact that he feels unworthy of guys love given his of homosexuality. He denies having any significant mental health treatment or hospitalizations or any problems and reports that he grew up in a fairly zoroastrianism family and reports that about a year ago he began to really struggle with his known homosexuality to himself but reports that he began living a clearly homosexual life which she is struggle with from a spiritual standpoint. Records show confusing contradictions as he has had the diagnosis of HIV for some time and is unclear how that occurred however this is how he reports the story. He reports that he has been drinking about 4 pints of alcohol a day and reports that that has been going on for about a year. He reports he is probably only had a day here and there that he hasn't had a drink in this period of time. He also identifies that about 2 weeks ago he had a 1 or 2 day cessation of drinking where and he had a withdrawal seizure. He had reached out to [facility] or this may have occurred during his emergency room stent however there is reportedly a bed available for him but we discussed the risks benefits and alternatives of home taking that bed with an understanding that he needs to be through the detox aspect of the situation prior to going to [facility]. His blood alcohol was 400 at about noon yesterday. He had gone to the emergency room and then left and apparently when he left the went home and had another pint of alcohol and was found unconscious and brought back to the emergency room which is how he got into the ICU. He reports a plan and agreement to work with the treatment team and psychiatric services to try to get him in a condition that it is safe for him to go to [facility] on Sunday at 8 AM when they [place] [facility] [place] Active Meds: Current Hospital Medications: Medications (Trade) Dose Ordered Sig/[place] Route PRN Reason Start Time Stop Time Status Last Admin Dose Admin Potassium Chloride/Sodium Chloride 1,000 ml @ 125 mls/hr CONT IV 04/03/19 15:15 Hold 04/04/19 09:12 Thiamine Mononitrate (Thiamine Tab) 100 mg DAILY PO 04/04/19 10:00 04/04/19 09:10 Multivitamins Therapeutic (Therapeutic Multivitamin) 1 ea DAILY PO 04/04/19 10:00 04/04/19 09:10 Folic Acid/ Cyanocobalamin/ pyridoxin (Folic Acid Tab) 1 mg DAILY PO 04/04/19 10:00 04/04/19 09:10 Lorazepam (Ativan Inj) 2 mg PRN PRN IV FOR WITHDRAWAL 04/03/19 15:15 04/04/19 13:00 Lorazepam (Ativan Inj) 2 mg PRN PRN IM for Withdrawal 04/03/19 15:15 Lorazepam (Ativan Tab) 2 mg PRN PRN PO Withdrawal 04/03/19 15:15 04/04/19 16:07 Acetaminophen (Tylenol Tab) 650 mg Q4H PRN PO FOR MILD PAIN 04/03/19 15:15 Ondansetron HCl (Zofran Inj) 4 mg Q6H PRN IV FOR NAUSEA AND VOMITING 04/03/19 15:15 Pantoprazole Sodium (Protonix Tab) 40 mg DAILY PO 04/04/19 10:00 04/04/19 09:10 Enoxaparin Sodium (Lovenox) 40 mg Q24H SUBCUT 04/03/19 15:15 04/04/19 16:07 Nicotine (Nicoderm Patch) 21 mg DAILY PRN TD 04/04/19 04:30 04/04/19 05:05 Dexmedetomidine HCl 400 mcg/ Sodium Chloride 104 ml @ 0 mls/hr CONT IV 04/04/19 10:00 04/04/19 10:18 Haloperidol Lactate (Haldol Inj) 5 mg Q3H PRN IM FOR AGITATION 04/04/19 13:30 Home Meds: Home Medications: Active Reported [Opsumit] 1 Tab PO DAILY Symbicort 80-4.5 Mcg Inhaler (Budesonide/Formoterol Fumarate) 10.2 Gm Inhaler 2 Puff INH BID Iron Sulfate 325MG Tab (Ferrous Sulfate) 325 Mg Tabec 325 Mg PO BREAKFAST Diflucan Tab (Fluconazole) 100 Mg Tablet 100 Mg PO DAILY Wellbutrin XL (Bupropion HCl) 150 Mg Tab.sr.24h 150 Mg PO DAILY Trazodone Tab (Trazodone HCl) 150 Mg Tablet 300 Mg PO BEDTIME Klor Con Tab (Potassium Chloride) 20 Meq Tab.prt.sr 20 Meq PO TID Protonix Tab (Pantoprazole Sodium) 40 Mg Tabec 40 Mg PO DAILY [Descovy] 1 Tab PO DAILY Isentress Chew Tab (Raltegravir) 100 Mg Tab.chew 400 Mg PO BID Xanax Tab (Alprazolam) 0.25 Mg Tab 0.25 Mg PO TID Oxycodone IR (Oxycodone HCl) 30 Mg Tab 30 Mg PO QID PRN Duragesic Patch (Fentanyl) 50 Mcg Patch 50 Mcg TD Q72H Prednisone Tab (Prednisone) 10 Mg Tablet 20 Mg PO DAILY Narcan (Naloxone HCl) 4 Mg/Actuation [place] 4 Mg NASAL ONCE PRN 1 Days Cartia XT (Diltiazem HCl) 240 Mg Cap.sr.24h 240 Mg PO DAILY Pradaxa Cap (Dabigatran) 150 Mg Capsule 150 Mg PO BID Voltaren Gel (Diclofenac Gel) 100 Gm Gel..gm. 1 Applic TOP QID PRN Past Medical History Past Medical History: Please see ED and ICU notes for additional history. Other Family Medical History: He denies significant mental health, addiction or other issues in his family. He denies any history of suicide attempts or completions in his family. Other Past Social History: Developmental history: Flakito reports being the product of a normal . He endorses that he learn to walk and talk and met his development milestones on time. He denied an y speech therapy, learning support, emotional support special education classes. Psychosocial history: He reports being the only child of his parents and that they were together when he was born. He denies any other siblings through their union with any other partners and reports that they never . He reports that his childhood was good but he was raised in a fairly zoroastrianism family went to [employer] on Sundays and Wednesdays at least. He reports he graduated from high school. He endorses being homosexual and his long-term relationship has not been very long. He denies ever being , never had any children, never been in the he endorses being a Buddhism. He reports his longest tenure in any job was about 7 years. He reports he lives in a house alone. He denies any significant legal history. Hospital Course Hospital Course Flakito presented to the emergency room and then was transferred to the ICU due to his unstable condition. Ultimately his condition stabilized he was transferred to the neuro psych unit for continuing treatment. He took medication as prescribed but was once again resistant to inpatient drug and alcohol rehabilitation which is very much needed in his treatment regimen. 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 He now is admitting he has a hard time surrendering his freedom and feeling like he was in senior living that makes him not want to do inpatient rehabilitation. Referrals were made for inpatient treatment at [facility] prior to discharge. During the hospitalization he had routine laboratory studies which were within normal limits except for some outliers. Significant ones were followed up by the ICU team. He also had a general medical evaluation which was within normal limits revealing no new acute processes other than those related to his intoxication. Discharge Summary At the time of discharge he denied any lethality, his mood had improved, his anxiety was being managed and he endorsed the plan to do the [facility] outpatient rehabilitation programming with the support of his family and [employer]. He had achieved maximum benefit from inpatient hospitalization so he was discharged. Involuntary Hold Information 96 Hour Hold: 96 Hour Involuntary Admission: Yes 96 Hour Hold Ending Date: 08/08/19 96 Hour Hold Ending Time: 12:01 Mental Status Exam MSE Comments: This is a well-nourished, well-developed white male with limited dressing, grooming and eye contact. Bruises of different ages were notable on his face. With the O2 cannula on. No abnormal movements except for improving psychomotor retardation. Cooperative with exam in no acute distress. Speech was less decreased rate and volume. Mood described as better, affect slightly brighter. Thought process organized. Thought content: Patient denied any suicidal or homicidal ideations, there were no delusions reported or noted, he denied any auditory or visual hallucinations. Attention and concentration were intact and memory was more reliable but none were formally tested. He is alert and oriented ?3. Insight and judgment are impaired, but improving. Discharge Data Data Completed and Pending: Pending at discharge Category Date Time Status C. DIFF BY PCR Ro utine Lab 08/03/19 11:14 Uncollected Enteric Bacterial Panel by PCR Rout ine Lab 08/03/19 11:14 Uncollected Enteric Parasite Panel Routine Lab 08/03/19 11:14 Uncollected Vitals: Last Vital Signs Temp 97.8 F 08/06/19 06:31 Pulse 108 H 08/06/19 09:37 Resp 18 08/06/19 06:31 BP 99/67 08/06/19 06:31 Pulse Ox 96 08/06/19 09:37 Discharge Plan Discharge Patient Disposition: Home, Self-Care Condition: Stable Prescriptions: Continued potassium chloride [Klor-Con M20] 20 mEq tablet,ER particles/crystals 20 meq PO BID RF: 0 Isentress 400 mg tablet 400 mg PO BID RF: 0 escitalopram oxalate [Lexapro] 10 mg tablet 10 mg PO DAILY RF: 0 fluconazole [Diflucan] 100 mg tablet 100 mg PO DAILY RF: 0 multivitamin Tablet 1 tab PO QAM RF: 0 trazodone 100 mg tablet 150 mg PO DAILY RF: 0 Pradaxa 150 mg capsule 150 mg PO BID RF: 0 sildenafil (pulm.hypertension) 20 mg tablet 20 mg PO TID RF: 0 pantoprazole 40 mg tablet,delayed release (DR/EC) 40 mg PO QAM RF: 0 sulfamethoxazole-trimethoprim [Bactrim DS] 800-160 mg tablet 1 tab PO .three times a week RF: 0 ferrous sulfate 324 mg (65 mg iron) tablet,delayed release (DR/EC) 324 mg PO DAILY RF: 0 fentanyl 50 mcg/hr Patch 72 Hour 1 patch TRANSDERMAL Q72H RF: 0 Xanax 0.25 mg Tablet 0.25 mg PO DAILY PRN (Reason: Anxiety) RF: 0 lorazepam 1 mg Tablet 1 mg PO DAILY PRN (Reason: Anxiety) RF: 0 Wellbutrin XL 150 mg Tablet Extended Release 24 Hr 150 mg PO QAM RF: 0 Eliquis 5 mg Tablet 5 mg PO BID RF: 0 Isentress 400 mg tablet 400 mg PO DAILY RF: 0 Opsumit 10 mg tablet 10 mg PO DAILY RF: 0 mirtazapine [Remeron] 15 mg tablet 15 mg PO BEDTIME RF: 0 Dovato 50-300 mg tablet 50 - 300 tab PO DAILY RF: 0 Descovy 200-25 mg tablet 200 tab PO DAILY RF: 0 Cartia XT 240 mg capsule,extended release 24hr 240 mg PO DAILY RF: 0 Discharge Orders: Discharge Order (Routine); Ordered 08/06/19 Ordered By: Niko Bang Referrals: Abdoul Morejon MD [Primary Care Provider] - (Call Dr. Morejon's office to reschedule your follow up appointment.) Discharge Diet: Regular Discharge Activity: Resume usual activity Patient Instructions: Sulfamethoxazole/Trimethoprim (By mouth), Iron Supplements (By mouth), Bupropion (By mouth), Diltiazem (By mouth), Alprazolam (By mouth), Lorazepam (By mouth), Trazodone (By mouth), Potassium Chloride (By mouth), Fluconazole (By mouth), Fentanyl (Absorbed through the skin), Mirtaz apine (By mouth), Sildenafil (By mouth), Pantoprazole (By mouth), Escitalopram (By mouth), Raltegravir (By mouth), Dabigatran (By mouth), Apixaban (By mouth), Macitentan (By mouth) Activity Restrictions/Additional Instructions: Follow-up with your current providers: 1. Dr. Rasheed Spivey [address] [place] [id number] phone [phone] fax January 04 @ 9:[address] Spivey. It was stated that Dr. Spivey might want to see you earlier to provide continuity of care. Also, be sure to call his office if you would like to see psychiatrist. Seeing a psychiatrist might also help you stay more accountable for your sobriety plan. 2. Dr. Morejon at [facility] [phone] Since you missed appointment while here, an appointment has been requested. You will need to call Dr. Morejon's office to check on new appointment time if a return call does not happen before you leave. Also, go to outpatient rehab for substance abuse: [address] [id number] SundayAugust 08 @ 9:00 a.m. intake for outpatient rehab Discharge Date/Time: 08/06/19 11:21 Discharge Attestations NPU Time Spent in Discharge Care*: greater than 30 min Specific Discharge Activities: Specific discharge activities: educating patient, educating and/or supporting family/caregiver, discussing with case manager/social workers/dc planners, documenting/other paperwork and evaluating patient/reviewing data Coding Level of Care Code Acute Regulatory Affairs Internship for Osmin Fwd Diagnoses Alcoholic intoxication F10.929 Complication of substance-induced condition: with unspecified complication Depression with suicidal ideation F32.9; R45.851
[2019-08-06 11:02] VITALS: BP 99/67; PULSE 108; RESP 18; TEMP 36.6; O2SAT 93
--- NOTE | 2019-08-06 11:47 | PC.SOCIAL ---
Dr. Mcallister's office called and said that patient has an appointment scheduled for August 18 at 10:45 a.m. Patient had given verbal consent to contact Mulugeta Flower, his band builder. Therefore, he was contacted to make sure patient has continuity of care and that he has the appointment time. Mr. Flower is also aware of the intake appointment for [facility] on Sunday.
== END 2019-08-06 11:21 | disposition home or self-care (01) | DRG 897 ==
LOC: ER 15:43 → ICU 17:12 → NP 08-03 19:06
PROVIDERS: Admitting Provider Family Medicine; Emergency Provider Emergency Medicine; PCP Internal Medicine Medical Oncology; Visit Provider Psychiatry & Neurology Psychiatry
DX: F10.129 Alcohol abuse with intoxication, unspecified (principal); R45.851 Suicidal ideations; Z21 Asymptomatic human immunodeficiency virus [HIV] infection status; I27.20 Pulmonary hypertension, unspecified; Y90.8 Blood alcohol level of 240 mg/100 ml or more; J44.9 Chronic obstructive pulmonary disease, unspecified; I48.91 Unspecified atrial fibrillation; F32.9 Major depressive disorder, single episode, unspecified; G89.29 Other chronic pain; F17.210 Nicotine dependence, cigarettes, uncomplicated; Z79.01 Long term (current) use of anticoagulants; Z86.711 Personal history of pulmonary embolism; Z85.72 Personal history of non-Hodgkin lymphomas; Z86.718 Personal history of other venous thrombosis and embolism; Z86.010 Personal history of colon polyps
CPT/HCPCS: 12345; 36415; 80048; 80053; 80307; 81003; 82550; 83735; 84100; 84443; 85025; 85610; 93005; 96365; 96372; 96374; 99283; J2060; J3411; J7030; Q0162

== ENCOUNTER 2019-08-15 05:47 | Outpatient (RCR) | payer MEDICARE, MEDICAID, SELFPAY | END 2019-08-22 23:59 | disposition home or self-care (01) | LOC: ONCMED 05:47 | PROVIDERS: Visit Provider Internal Medicine Medical Oncology | DX: Z86.711 Personal history of pulmonary embolism (principal); K52.1 Toxic gastroenteritis and colitis; T50.6X5A Adverse effect of antidotes and chelating agents, initial encounter; Z85.72 Personal history of non-Hodgkin lymphomas; Z21 Asymptomatic human immunodeficiency virus [HIV] infection status; J44.9 Chronic obstructive pulmonary disease, unspecified; I27.20 Pulmonary hypertension, unspecified; F10.21 Alcohol dependence, in remission; Z79.01 Long term (current) use of anticoagulants; Z79.899 Other long term (current) drug therapy; Z79.52 Long term (current) use of systemic steroids; Z87.01 Personal history of pneumonia (recurrent) | CPT/HCPCS: 99214 ==

== ENCOUNTER 2019-08-23 19:06 | Inpatient (IN) | payer MEDICARE, MEDICAID, SELFPAY ==
[2019-08-23 19:06] VITALS: BP 103/64; PULSE 97; RESP 17; TEMP 37; O2SAT 93; BMI 28.1
[2019-08-23 19:19] VITALS: BP 103/64; PULSE 94; RESP 20; O2SAT 93
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
--- NOTE | 2019-08-23 19:27 | XRR_ITS ---
PROCEDURE INFORMATION: Exam: XR Chest, 1 View Exam date and time: 08/23/2019 7:29 PM Age: 59 years old Clinical indication: Other: Unable to exlpain his condition; Additional info: Trauma TECHNIQUE: Imaging protocol: XR of the chest Views: 1 view. COMPARISON: CR Chest 1 [place] [id number] 06/21/2019 3:49 PM FINDINGS: Lungs: There is interstitial prominence compatible with fibrosis, bronchitis, viral pneumonitis or mild interstitial edema. Nonspecific bibasilar consolidation is present, consistent with atelectasis, edema, or pneumonia. This is greater on the right. Pleural space: Unremarkable. No pleural effusion. No pneumothorax. Heart/Mediastinum: Unremarkable. No cardiomegaly. Bones/joints: There is dextroscoliosis. [id number] degenerative changes in the spine are noted. XR/XR chest 1V portable [id number] IMPRESSION: 1. There is interstitial prominence compatible with fibrosis, bronchitis, viral pneumonitis or mild interstitial edema. 2. Nonspecific bibasilar consolidation is present, consistent with atelectasis, edema, or pneumonia. This is greater on the right.
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
[2019-08-23 19:45] LABS: Basophils # 0.1 10^3/uL (0.0-0.1); Basophils % 1.3 %; Eosinophils # 0.1 10^3/uL (0.0-0.8); Eosinophils % 2.1 %; Hematocrit 43.7 % (42.0-52.0); Hemoglobin 14.7 g/dL (11.7-16.6); Lymphocytes # 2.2 10^3/uL (0.8-4.8); Mean Corpuscular HGB Conc 33.6 g/dL (30.0-36.0); Mean Corpuscular Hemoglobin 33.1 pg (28.0-34.0); Mean Corpuscular Volume 98.4 fL (80-94); Mean Platelet Volume 8.8 fL (7.4-10.4); Monocytes # 0.4 10^3/uL (0.2-0.9); Monocytes % 9.4 %; Neutrophils # 1.8 10^3/uL (1.8-7.7); Nucleated Red Blood Cells % 0 %; Platelet Count 170 10^3/cmm (130-400); Red Blood Count 4.44 10^6/uL (4.1-5.3); Red Cell Distribution Width 12.7 % (12.1-15.1); White Blood Count 4.7 10^3/uL (4.0-10.0)
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
[2019-08-23 20:04] LABS: Alanine Aminotransferase 40 U/L (0-41); Alcohol Level 270 mg/dL (0-10); Alkaline Phosphatase 105 IU/L (40-130); Anion Gap 19.6 (5-19); Aspartate Amino Transferase 67 U/L (0-40); Blood Urea Nitrogen 4 mg/dL (6-20); Calcium 9.1 mg/dL (8.5-10.5); Carbon Dioxide 24 mmol/L (22-29); Chloride 102 mmol/L (98-107); Glomerular Filtration Rate 115.8 mL/min (90-130); Glucose 82 mg/dL (74-109); Magnesium 2.2 mg/dL (1.7-2.3); Potassium 3.6 mmol/L (3.5-5.1); Sodium 142 mmol/L (136-145); Total Bilirubin 0.4 mg/dL (0.15-1.2)
--- NOTE | 2019-08-23 20:06 | PC.NURSE ---
patient room made into a psych safe room. patient placed in paper scrubs. patient left on retail sales vitamin consultant at this time. patient has 1:1 sitter in room with sitter documentation paper sheet. patient belongings labeled and placed in the ER safe. pants, shoes, shirt,jacket, pill bottle.
--- NOTE | 2019-08-23 20:17 | PC.NURSE ---
patient phone was turned off and placed in bag with shirt, pants and pill bottle. bag is placed in the ER safe.
[2019-08-23 20:28] LABS: INR 0.97 (0.8-1.2)
[2019-08-23 20:52] VITALS: BP 119/92; PULSE 96; RESP 18; O2SAT 94
[2019-08-23 21:02] LABS: Add Urine Microscopic? NO
[2019-08-23 21:18] VITALS: BP 138/75; PULSE 95; RESP 20; O2SAT 93
[2019-08-23 21:19] LABS: Bilirubin Urine Neg (NEGATIVE); Blood Urine Neg (Negative); Glucose Urine UA Norm (Normal); Ketones Urine Negative (Negative); Leukocyte Esterase Urine Negative (Negative); Nitrate Urine Negative (Negative); Protein Urine Neg (Negative); Urine Appearance Clear (CLEAR); Urine Color Yellow (Yellow); Urobilinogen Urine Norm (Negative); pH Urine 6.5 (5-7)
[2019-08-23 21:43] LABS: Amphetamines Screen Urine Negative (Negative); Barbiturates Screen Urine Negative (Negative); Benzodiazepines Screen Urine Negative (Negative); Cocaine Screen Urine Negative (Negative); Opiate Screen Urine Negative (Negative); PCP Screen Urine Negative (Negative); THC Screen Urine Negative (Negative)
[2019-08-23 22:31] VITALS: BP 117/75; PULSE 77; RESP 19; O2SAT 98
[2019-08-23 23:09] VITALS: BP 109/73; PULSE 117; RESP 18; TEMP 36.4; O2SAT 83
[2019-08-24 06:00] VITALS: BP 132/77; PULSE 96; RESP 17; TEMP 36.5; O2SAT 94
[2019-08-24] MEDS: thiamine 100 mg Tablet PO (09:24)
[2019-08-24] MEDS: folic acid 1 mg Tablet PO (09:24)
[2019-08-24] MEDS: multivitamin therapeutic Tablet 1 TAB PO (09:24)
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
[2019-08-24] MEDS: loperamide 2 mg Capsule PO ×2 (16:13→21:18)
--- NOTE | 2019-08-24 16:14 | PC.NURSE ---
PT NOTE: PATIENT AND STAFF REPORT THAT PATIENT HASHAD APPROXIMATELY 3 WATERY STOOLS IN THE PAST 3 HOURS.
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
[2019-08-24] MEDS: trazodone 50 mg Tablet PO (21:18)
[2019-08-24 22:00] VITALS: BP 114/74; PULSE 93; RESP 18; TEMP 37.2; O2SAT 92
[2019-08-25 06:00] VITALS: BP 132/94; PULSE 83; RESP 19; TEMP 36.8; O2SAT 96
[2019-08-25] MEDS: folic acid 1 mg Tablet PO (08:30)
[2019-08-25] MEDS: thiamine 100 mg Tablet PO (08:30)
[2019-08-25] MEDS: multivitamin therapeutic Tablet 1 TAB PO (08:30)
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
[2019-08-25] MEDS: trazodone 50 mg Tablet PO (20:51)
[2019-08-25 21:17] VITALS: BP 125/87; PULSE 92; RESP 21; TEMP 37; O2SAT 96
[2019-08-26 06:00] VITALS: BP 134/80; PULSE 86; RESP 20; TEMP 36.8; O2SAT 97
[2019-08-26] MEDS: thiamine 100 mg Tablet PO (08:50)
[2019-08-26] MEDS: folic acid 1 mg Tablet PO (08:50)
[2019-08-26] MEDS: multivitamin therapeutic Tablet 1 TAB PO (08:50)
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
[2019-08-26 12:56] VITALS: BP 134/80; PULSE 86; RESP 20; TEMP 36.8; O2SAT 97
== END 2019-08-26 13:15 | disposition home or self-care (01) | DRG 897 ==
LOC: ER 20:12 → NP 22:13
PROVIDERS: Admitting Provider Psychiatry & Neurology Psychiatry; Emergency Provider Emergency Medicine; Visit Provider Psychiatry & Neurology Psychiatry
DX: F10.129 Alcohol abuse with intoxication, unspecified (principal); R45.851 Suicidal ideations; I48.91 Unspecified atrial fibrillation; Z21 Asymptomatic human immunodeficiency virus [HIV] infection status; Z85.72 Personal history of non-Hodgkin lymphomas; Z86.711 Personal history of pulmonary embolism; F32.9 Major depressive disorder, single episode, unspecified; Z79.01 Long term (current) use of anticoagulants; Z79.899 Other long term (current) drug therapy; Z88.5 Allergy status to narcotic agent
CPT/HCPCS: 12345; 70450; 71045; 72125; 80053; 80307; 81003; 83735; 85025; 85610; 99282

== ENCOUNTER 2019-09-01 06:37 | Emergency (ER) | payer MEDICARE, MEDICAID, SELFPAY ==
[2019-09-01 06:45] VITALS: BP 144/94; PULSE 114; RESP 18; TEMP 37.1; O2SAT 92; BMI 23.0
--- NOTE | 2019-09-01 06:47 | ED_ITS ---
HPI - General Adult General: Chief complaint: Shortness of Breath/Dyspnea Stated complaint: SOB, trying to passout Time Seen by Provider: 09/01/19 06:46 History of Present Illness: HPI narrative: 59 yo male was admitted to [facility] 1 wk ago. Comes in today complaining of shortness of breath cough and wheezing. He denies any fever sweats or chills he has a mildly productive cough of clear sputum in the character the sputum has not changed. Denies vomiting or d iarrhea. His previous hospitalization was reviewed he expresses no psychiatric illness symptoms at this time to me at the time of initial contact or at the time of discharge. Patient denies any chest pain. Associated symptoms: Deny chest pain, dyspnea, malaise, nausea, rash or vomiting Review of Systems Const: Denies: fever, chills, body aches, change in appetite, fatigue or malaise ENMT: Denies: throat pain, ear pain, nasal discharge or nasal congestion Card: Denies: chest pain, edema, shortness of breath on exertion or shortness of breath when lying down Resp: Denies: shortness of breath, productive cough or non-productive cough GI: Denies: abdominal pain, nausea, vomiting, vomiting blood, coffee grounds in vomit, diarrhea, constipation, bloating, blood in stool or black tarry stool : Denies: flank pain, painful urination, urinary frequency or urinary urgency Skin/Breast: Denies: rash or itching PFSH ED PFSH: Statuses (acute, chronic, etc) shown below reflect problem list status as previously entered and may not be historically accurate Medical History (Updated 09/01/19 @ 08:51 by Glenn Dan DO) Atrial fibrillation (Acute) Colon polyps (Acute) HIV (human immunodeficiency virus infection) (Acute) Lymphoma (Acute) Pulmonary embolism (Acute) Surgical History (Updated 08/02/19 @ 16:37 by Consuelo Dunbar MD) H/O colonoscopy (Acute) H/O hemorrhoidectomy (Acute) History of orchiectomy, unilateral (Acute) Social History Smoking and tobacco status: current every day smoker Alcohol intake: never Physical Exam Const: COMMON NORMALS: no apparent distress GENERAL APPEARANCE: cooperative and comfortable ORIENTATION/CONSCIOUSNESS: Yes awake, Yes oriented to person, Yes oriented to place and Yes oriented to time HENMT: COMMON NORMALS: normocephalic, head/scalp atraumatic, hearing grossly normal bilaterally, external ears normal, EAC's normal, TM's normal bilaterally, nasal mucous membranes and turbinates normal, moist oral mucous membranes and oropharynx normal HEAD & SCALP: normocephalic and atraumatic NOSE: nasal mucous membranes and turbinates normal EXTERNAL EAR: Yes external ears normal EXTERNAL AUDITORY CANAL: EAC's normal TYMPANIC MEMBRANE: TM's normal bilaterally Eye: COMMON NORMALS: PERRL, EOMs intact bilaterally, conjunctivae normal and no scleral icterus CONJUNCTIVA: Yes conjunctivae normal PUPIL: Yes PERRL Neck/C-Spine: COMMON NORMALS: full ROM, no lymphadenopathy, supple and no JVD Lymph: LYMPHATIC: no lymphadenopathy noted and no lymphedema noted Resp: COMMON NORMALS: normal respiratory effort, no retractions, no use of accessory muscles and clear to auscultation bilaterally AUSCULTATION: clear to auscultation bilaterally Cardio: COMMON NORMALS: no JVD, regular rate, regular rhythm and no murmurs RATE: regular rate RHYTHM: regular rhythm GI: COMMON NORMALS: soft to palpation and no hepatosplenomegaly AUSCULTATION: Yes normoactive bowel sounds PALPATION: Yes soft, No tender, No guarding and Yes no hepatosplenomegaly Extremity: COMMON NORMALS: normal to inspection, normal capillary refill, no clubbing, cyanosis or edema, no calf tenderness and no pedal edema Neuro: SENSORIUM/ORIENTATION: Yes oriented to person, Yes oriented to place and Yes oriented to time Skin: COMMON NORMALS: no rashes or lesions noted GENERAL SKIN EXAM: no rashes or lesions noted Course ED course: Patient improved significantly with nebulizers. Will put him on a Medrol Dosepak add doxycycline and increase pulmonary toilet by adding albuterol Atrovent nebulizers scheduled and albuterol nebulizers alone PRN follow-up with primary care doctor next 3 to 4 days return if worsens Vital Signs: Vital signs: Vital Signs Temperature 98.8 F 09/01/19 06:45 Pulse Rate 90 09/01/19 09:10 Respiratory Rate 16 09/01/19 09:10 Blood Pressure 139/91 09/01/19 09:10 Pulse Oximetry 93 09/01/19 09:10 [facility] - General Adult Lab Data: Labs: Lab Results 09/01/19 09/01/19 09/01/19 Range/Units 07:00 07:10 07:10 WBC 3.9 L (4.0-10.0) 10^3/ uL RBC 4.60 (4.1-5.3) 10^6/u L Hgb 15.0 (11.7-16.6) g/dL Hct 44.1 (42.0-52.0) % MCV 95.9 H (80-94) fL MCH 32.6 (28.0-34.0) pg MCHC 34.0 (30.0-36.0) g/dL RDW 12.9 (12.1-15.1) % Plt Count 122 L (130-400) 10^3/c mm MPV 9.4 (7.4-10.4) fL Neut % (Auto) 63.2 % Lymph % (Auto) 19.6 % [place] % (Auto) 13.0 % Eos % (Auto) 2.6 % Baso % (Auto) 1.3 % Neut # (Auto) 2.5 (1.8-7.7) 10^3/u L Lymph # (Auto) 0.8 (0.8-4.8) 10^3/u L [place] # (Auto) 0.5 (0.2-0.9) 10^3/u L Eos # (Auto) 0.1 (0.0-0.8) 10^3/u L Baso # (Auto) 0.1 (0.0-0.1) 10^3/u L Nucleated RBC % (a uto) 0 % Nucleated RBCs # 0.0 /100WBC Specimen Type Arterial Sample Site Radial, left ABG pH 7.49 H (7.35-7.45) ABG pCO2 31.8 L (35-45) mmHg ABG pO2 55.7 L (80.0-100.0) mmH g ABG HCO3 24.1 (22-26) mmol/L ABG O2 Saturation 91.4 ABG Base Excess 1.5 (-2.0-2.0) mmol/ L Jean-Paul Test Pos A-a O2 Gradient 53.1 H (5-10) mmHg Hematocrit 47.1 (42-52) % Hgb O2 Saturation 86.7 L (95-100) % Carboxyhemoglobin 4.5 (0.4-20.1) %THgb Methemoglobin 0.6 (0.4-1.5) % Total Hemoglobin 15.4 (14-18) g/dL Sodium 142.0 139 (131-143) mmol/L Potassium 2.9 L 3.5 (3.5-5.0) mmol/L Glucose 96.0 103 (70-115) mg/dL Ionized Calcium 1.1 (1.1-1.4) mmol/L O2 Delivery Device Nc O2 Liters/Min 4.0 % Bonsai Culturist ID ellpe Chloride 96 L (98-107) mmol/L Carbon Dioxide 26 (22-29) mmol/L Anion Gap 20.5 H (5-19) BUN 6 (6-20) mg/dL Creatinine 0.7 (0.7-1.2) mg/dL GFR Calculation 115.8 (90-130) mL/min Calculated Osmolal ity 284 L (285-295) mOsm/k g Calcium 9.3 (8.5-10.5) mg/dL Ethyl Alcohol (0-10) mg/dL Influenza Type A A g (Negative) POC Influenza B Ag (Negative) 09/01/19 09/01/19 Range/Units 07:10 07:28 WBC (4.0-10.0) 10^3/ uL RBC (4.1-5.3) 10^6/u L Hgb (11.7-16.6) g/dL Hct (42.0-52.0) % MCV (80-94) fL MCH (28.0-34.0) pg MCHC (30.0-36.0) g/dL RDW (12.1-15.1) % Plt Count (130-400) 10^3/c mm MPV (7.4-10.4) fL Neut % (Auto) % Lymph % (Auto) % [place] % (Auto) % Eos % (Auto) % Baso % (Auto) % Neut # (Auto) (1.8-7.7) 10^3/u L Lymph # (Auto) (0.8-4.8) 10^3/u L [place] # (Auto) (0.2-0.9) 10^3/u L Eos # (Auto) (0.0-0.8) 10^3/u L Baso # (Auto) (0.0-0.1) 10^3/u L Nucleated RBC % (a uto) % Nucleated RBCs # /100WBC Specimen Type Sample Site ABG pH (7.35-7.45) ABG pCO2 (35-45) mmHg ABG pO2 (80.0-100.0) mmH g ABG HCO3 (22-26) mmol/L ABG O2 Saturation ABG Base Excess (-2.0-2.0) mmol/ L Jean[place]Paul Test A-a O2 Gradient (5-10) mmHg Hematocrit (42-52) % Hgb O2 Saturation (95-100) % Carboxyhemoglobin (0.4-20.1) %THgb Methemoglobin (0.4-1.5) % Total Hemoglobin (14-18) g/dL Sodium (131-143) mmol/L Potassium (3.5-5.0) mmol/L Glucose (70-115) mg/dL Ionized Calcium (1.1-1.4) mmol/L O2 Delivery Device O2 Liters/Min % Bonsai Culturist ID Chloride (98-107) mmol/L Carbon Dioxide (22-29) mmol/L Anion Gap (5-19) BUN (6-20) mg/dL Creatinine (0.7-1.2) mg/dL GFR Calculation (90-130) mL/min Calculated Osmolal ity (285-295) mOsm/k g Calcium (8.5-10.5) mg/dL Ethyl Alcohol 40 H (0-10) mg/dL Influenza Type A A g Negative (Negative) POC Influenza B Ag Negative (Negative) Discharge Plan Discharge Patient Disposition: Home, Self-Care Clinical Impression: Acute exacerbation of chronic obstructive airways disease Condition: Stable Prescriptions: New doxycycline hyclate 100 mg capsule 100 mg PO BID 10 Days Qty: 20 RF: 0 Medrol (Ashwin) 4 mg tablets,dose pack See Rx Instructions .ROUTE .COMPLEX Qty: 21 RF: 0 albuterol sulfate 2.5 mg /3 mL (0.083 %) solution for nebulization 2.5 mg INHALATION Q4-5H PRN (Reason: prn) Qty: 180 RF: 0 ipratropium-albuterol 0.5 mg-3 mg(2.5 mg base)/3 mL solution for nebulization 3 ml INHALATION QID Qty: 180 RF: 0 (DME) Compact Compressor Nebulizer Misc See Rx Instructions .ROUTE .MEDSUPPLY Qty: 1 RF: 0 No Action potassium chloride [Klor-Con M20] 20 mEq tablet,ER particles/crystals 20 meq PO BID RF: 0 Isentress 400 mg tablet 400 mg PO BID RF: 0 escitalopram oxalate [Lexapro] 10 mg tablet 10 mg PO DAILY RF: 0 fluconazole [Diflucan] 100 mg tablet 100 mg PO DAILY RF: 0 multivitamin Tablet 1 tab PO QAM RF: 0 trazodone 100 mg tablet 150 mg PO DAILY RF: 0 sildenafil (pulm.hypertension) 20 mg tablet 20 mg PO TID RF: 0 pantoprazole 40 mg tablet,delayed release (DR/EC) 40 mg PO QAM RF: 0 sulfamethoxazole-trimethoprim [Bactrim DS] 800-160 mg tablet 1 tab PO .three times a week RF: 0 ferrous sulfate 324 mg (65 mg iron) tablet,delayed release (DR/EC) 324 mg PO DAILY RF: 0 fentanyl 50 mcg/hr Patch 72 Hour 1 patch TRANSDERMAL Q72H RF: 0 Xanax 0.25 mg Tablet 0.25 mg PO DAILY PRN (Reason: Anxiety) RF: 0 lorazepam 1 mg Tablet 1 mg PO DAILY PRN (Reason: Anxiety) RF: 0 Wellbutrin XL 150 mg Tablet Extended Release 24 Hr 150 mg PO QAM RF: 0 Eliquis 5 mg Tablet 5 mg PO BID RF: 0 Isentress 400 mg tablet 400 mg PO DAILY RF: 0 Opsumit 10 mg tablet 10 mg PO DAILY RF: 0 mirtazapine [Remeron] 15 mg tablet 15 mg PO BEDTIME RF: 0 Dovato 50-300 mg tablet 50 - 300 tab PO DAILY RF: 0 Descovy 200-25 mg tablet 200 tab PO DAILY RF: 0 Cartia XT 240 mg capsule,extended release 24hr 240 mg PO DAILY RF: 0 Discharge Orders: Discharge Order (Routine); Ordered 09/01/19 Ordered By: Glenn Dan Discharge Diet: Usual diet Discharge Activity: Increase activity as tolerated Activity Restrictions/Additional Instructions: Follow-up with your primary care doctor within the next week. Return if has increasing problems. Discharge Date/Time: 09/01/19 09:10 Coding Level of Care Code ED Engineering Lab Technician for Osmin Ordonez
--- NOTE | 2019-09-01 07:00 | ECG_ITS ---
Measurements Intervals Terry Rate: 111 P: 63 NC: 176 QRS: 59 QRSD: 93 T: 70 QT: 370 QTc: 505 SINUS TACHYCARDIA ABNORMAL RHYTHM ECG Compared to ECG 08/02/2019 14:17:44 Sinus rhythm no longer present T-wave abnormality no longer present Electronically Signed On 09-01-2019 20:08:10 CUSTOMER EXPERIENCE ANALYST by Kenny Claudio M.D. [id number]
--- NOTE | 2019-09-01 07:03 | XR_ITS ---
WS: [id number] PORTABLE CHEST HISTORY: dyspnea/cough COMPARISON: 08/23/2019, CTA 05/11/2019. Marked pulmonary hyperexpansion. Mild volume loss with increasing linear areas of consolidation in th e lower RIGHT thorax. Pulmonary hypertension. No pleural effusion or pneumothorax. Cardiac size: Normal. Mediastinum/Aorta: Mild atherosclerosis aorta. Pulmonary arteries are enlarged. No osseous abnormality seen. XR/XR chest 1V portable [id number] IMPRESSION: 1. Increasing linear areas of consolidation in the RIGHT lower lung. Probably atelectasis or fibrosis. Not likely pneumonia. 2. Pulmonary hypertension. 3. Subsegmental atelectasis LEFT lung base.
[2019-09-01 07:08] LABS: ABG PCO2 31.8 mmHg (35-45); ABG PH Result 7.49 (7.35-7.45); Alveolar-Arterial Oxygen Gradi 53.1 mmHg (5-10); Arterial Blood Gas Hematocrit 47.1 % (42-52); Base Excess ABG 1.5 mmol/L (-2.0-2.0); Blood Gas Allen Test Pos; Blood Gas Sample Site Radial, left; Blood Gas Sample Type Arterial; Carboxyhemoglobin 4.5 %THgb (0.4-20.1); HCO3 ABG 24.1 mmol/L (22-26); HGB O2 Sat 86.7 % (95-100); Ionized Calcium Level - ABG 1.1 mmol/L (1.1-1.4); Methemoglobin 0.6 % (0.4-1.5); Oxygen Device NC; Oxygen Saturation ABG 91.4; PO2 ABG 55.7 mmHg (80.0-100.0); Potassium Level - ABG 2.9 mmol/L (3.5-5.0); Total Hemoglobin 15.4 g/dL (14-18)
[2019-09-01 07:19] LABS: Basophils # 0.1 10^3/uL (0.0-0.1); Basophils % 1.3 %; Eosinophils # 0.1 10^3/uL (0.0-0.8); Eosinophils % 2.6 %; Hematocrit 44.1 % (42.0-52.0); Lymphocytes # 0.8 10^3/uL (0.8-4.8); Lymphocytes % 19.6 %; Mean Corpuscular Hemoglobin 32.6 pg (28.0-34.0); Mean Corpuscular Volume 95.9 fL (80-94); Mean Platelet Volume 9.4 fL (7.4-10.4); Monocytes # 0.5 10^3/uL (0.2-0.9); Neutrophils # 2.5 10^3/uL (1.8-7.7); Neutrophils % 63.2 %; Nucleated Red Blood Cells % 0 %; Platelet Count 122 10^3/cmm (130-400); Red Cell Distribution Width 12.9 % (12.1-15.1); White Blood Count 3.9 10^3/uL (4.0-10.0)
[2019-09-01 07:33] LABS: Anion Gap 20.5 (5-19); Blood Urea Nitrogen 6 mg/dL (6-20); Calcium 9.3 mg/dL (8.5-10.5); Carbon Dioxide 26 mmol/L (22-29); Chloride 96 mmol/L (98-107); Glomerular Filtration Rate 115.8 mL/min (90-130); Glucose 103 mg/dL (65-115); Osmolality Calculated 284 mOsm/kg (285-295); Potassium 3.5 mmol/L (3.5-5.1); Sodium 139 mmol/L (136-145)
[2019-09-01 07:34] VITALS: PULSE 113; RESP 20; O2SAT 93
[2019-09-01] MEDS: ipratropium-albuterol 3 mL Neb INHALATION (07:34)
[2019-09-01 07:40] VITALS: PULSE 115; RESP 20; O2SAT 94
[2019-09-01 07:52] LABS: Alcohol Level 40 mg/dL (0-10)
[2019-09-01 07:59] LABS: Influenza A by IFA Negative (Negative); Influenza B by IFA Negative (Negative)
[2019-09-01 09:10] VITALS: BP 139/91; PULSE 90; RESP 16; O2SAT 93
== END 2019-09-01 09:10 | disposition home or self-care (01) ==
PROVIDERS: Emergency Provider Family Medicine
DX: J44.1 Chronic obstructive pulmonary disease with (acute) exacerbation (principal); Z79.01 Long term (current) use of anticoagulants; I48.91 Unspecified atrial fibrillation; B20 Human immunodeficiency virus [HIV] disease; Z85.72 Personal history of non-Hodgkin lymphomas; F17.210 Nicotine dependence, cigarettes, uncomplicated
CPT/HCPCS: 36415; 36600; 71045; 80048; 80051; 80307; 82810; 83986; 85025; 87804; 93005; 94640; 96374; 96375; 99282; 99283; J2930

== ENCOUNTER 2019-09-28 19:18 | Inpatient (IN) | payer MEDICARE, MEDICAID, SELFPAY ==
[2019-09-28] VITALS (16 sets, daily range): BP systolic 107–151; BP diastolic 67–98; PULSE 84–95; RESP 0–18; TEMP 36.5–36.7; O2SAT 87–95; BMI 22.4
--- NOTE | 2019-09-28 19:22 | ED_ITS ---
Entered by Mary Warner, acting as scribe for Rema Wright HPI - Alcohol General: Chief Complaint: Alcohol Stated Complaint: ETOH Time Seen by Provider: 09/28/19 19:19 Source: patient Mode of arrival: EMS Limitations: no limitations History of Present Illness: HPI narrative: 59 yo Male presents to ED with complaint of ETOH. Pt states that he needs to go to rehab for alcohol. Pt states that he is having homicidal and suicidal ideation. Pt states that he wants to kill his dad. Pt states that his plan to kill himself would be to hang himself and he has tried in the past. Pt states that when he tries to quit drinking he shakes and has seizures. Pt states that he has HIV and atrial fibrillation. Pt states that he is on Eliquis and diazepam. Pt states that his last drink was an hour ago and it was vodka. MD complaint: alcohol intoxication and alcohol dependence Last drink: Hours (ago) (1) Chronic alcohol use: Yes Previous visits for alcohol intoxication: Yes Associated symptoms: Reports suicidal ideation and other (homicidal ideation); Deny abdominal pain, diaphoresis, hematemesis, melena, nausea, syncope or vomiting Treatments prior to arrival: none Review of Systems General: Reports: other (negative unless marked) Const: Denies: fever, chills, body aches, fatigue, malaise or diaphoresis Eyes: Denies: change in vision or blurry vision ENMT: Denies: throat pain, painful swallowing, hoarseness, ear pain, ear discharge, Change in hearing or nasal discharge Card: Denies: chest pain, palpitations, irregular heart rhythm, syncope, pre- syncope, shortness of breath on exertion or shortness of breath when lying down Resp: Denies: shortness of breath, productive cough, non-productive cough, wheezing, coughing up blood or chest congestion GI: Denies: abdominal pain, nausea, vomiting, vomiting blood, coffee grounds in vomit, diarrhea, constipation, cramping, blood in stool or black tarry stool : Denies: flank pain, difficulty urinating, painful urination, urinary frequency, urinary urgency, decreased urine ouput, urinary incontinence or blood in urine Musc: Denies: neck pain, back pain, extremity pain, extremity swelling, joint pain, joint swelling, joint warmth or joint stiffness Skin/Breast: Denies: rash, skin tenderness or yellow skin Neuro: Denies: headache, numbness in extremities, weakness in extremities, changes in sensation, lack of coordination, difficulty walking, dizziness, vertigo or confusion Psych: Reports: suicidal ideation and homicidal ideation Endo: Denies: excessive thirst, tired all the time, cold intolerance, excessive sweating, flushing or hot flashes Obey/Lymph: Denies: easy bruising, easy bleeding, petechiae or enlarged lymph nodes All/Imm: Denies: hives, throat swelling, tongue swelling, facial swelling or acute wheezing PFSH ED PFSH: Medical History (Updated 09/28/19 @ 22:49 by Kenny Osborn MD) Atrial fibrillation Colon polyps Diverticulitis HIV (human immunodeficiency virus infection) Hypogonadism Liver tumor Lymphoma Meningitis Orchialgia Pulmonary embolism Surgical History H/O colonoscopy H/O hemorrhoidectomy History of orchiectomy, unilateral Family History Other No pertinent family history Social History (Updated 09/28/19 @ 22:48 by Kenny Osborn MD) Smoking and tobacco status: current every day smoker Alcohol intake: current Alcohol use comment: 1 pint of vodka every day Household members: family Housing: House Physical Exam Const: COMMON NORMALS: no apparent distress, oriented x3, no limitations, healthy appearing and well nourished EXAM LIMITATIONS: no altered mental status GENERAL APPEARANCE: cooperative, well kempt and well developed ORIENTATION/CONSCIOUSNESS: Yes awake HENMT: COMMON NORMALS: normocephalic, head/scalp atraumatic, hearing grossly normal bilaterally, external ears normal, EAC's normal, external nose normal and moist oral mucous membranes HEAD & SCALP: normal to inspection, normocephalic and atraumatic FACE & SINUS: normal facial exam and face symmetric NOSE: external nose normal and nares normal EXTERNAL EAR: Yes external ears normal EXTERNAL AUDITORY CANAL: EAC's normal MOUTH: oral and palatal mucosa normal and tongue normal Eye: COMMON NORMALS: PERRL, EOMs intact bilaterally, conjunctivae normal and no scleral icterus GENERAL EYE: normal appearance of both eyes and normal light reflex CONJUNCTIVA: Yes conjunctivae normal SCLERA: sclerae normal CORNEA: Yes corneas normal PUPIL: Yes PERRL DIRECT OPHTHALMOSCOPY: Yes normal light reflex Neck/C-Spine: COMMON NORMALS: full ROM, no lymphadenopathy, supple, no meningeal signs and no JVD GENERAL: Yes normal visual inspection and Yes trachea midline CERVICAL SPINE: Yes cervical ROM normal Chest: COMMONS NORMALS: inspection of chest normal and palpation of chest n ormal Resp: COMMON NORMALS: normal respiratory effort, no retractions, no use of accessory muscles and clear to auscultation bilaterally EFFORT & INSPECTION: Yes able to speak in complete sentences AUSCULTATION: clear to auscultation bilaterally Cardio: COMMON NORMALS: no JVD, regular rate, regular rhythm, S1 normal heart sound, S2 normal heart sound, no gallops, no clicks, no murmurs and no rub JUGULAR VENOUS DISTENTION: no JVD RATE: regular rate RHYTHM: regular rhythm HEART SOUNDS: S1 normal and S2 normal GI: COMMON NORMALS: soft to palpation, non-tender, no hepatosplenomegaly and no masses INSPECTION: Yes normal to inspection PALPATION: Yes soft and Yes no hepatosplenomegaly : COMMON NORMALS: Yes no CVA tenderness BLADDER/KIDNEY EXAM: Yes no CVA tenderness Back/Pelvis: COMMON NORMALS: no CVA tenderness, thoracic and lumbar spine normal to inspection, no thoracic nor lumbar tenderness and thoraco-lumbar ROM normal Extremity: COMMON NORMALS: normal to inspection, full ROM, normal capillary refill, no joint enlargement, no clubbing, cyanosis or edema and no calf tenderness Neuro: COMMON NORMALS: oriented x3, CN's II-XII intact bilaterally, moves all extremities, no focal motor deficits and no sensory deficits noted MENINGEAL SIGNS: Yes no meningeal signs Psych: COMMON NORMALS: mental status grossly normal, thought process normal, cooperative, affect normal, speech normal and activity/motor behavior normal APPEARANCE: Yes well kempt SPEECH: Yes normal speech THOUGHT PROCESS: normal thought process Skin: COMMON NORMALS: no rashes or lesions noted, skin turgor normal, no jaundice, no petechiae and no mottling GENERAL SKIN EXAM: no rashes or lesions noted and turgor normal Course Vital Signs: Vital signs: Vital Signs Temperature 98.1 F 09/28/19 19:20 Pulse Rate 95 09/28/19 22:42 Respiratory Rate 16 09/28/19 22:23 Blood Pressure 128/67 09/28/19 22:23 Pulse Oximetry 92 09/28/19 22:42 MDM - Alcohol MDM Narrative: Medical decision making narrative: Mr. Almanzar is a 59-year-old male who comes in with suicidal and homicidal ideation. He is currently intoxicated. He states that when he withdrawals from alcohol he goes through severe DTs including seizures. I reviewed the case in full with Dr. Bang who wants the patient admitted to the ICU under 96-hour hold and he will consult on the patient there. I reviewed the case in full with Dr. Herrera and he agrees to admit the patient for further care. Lab Data: Labs: Lab Results 09/28/19 09/28/19 09/28/19 Range/Units 19:57 19:57 20:00 WBC 5.3 (4.0-10.0) 10^3/ uL RBC 4.98 (4.1-5.3) 10^6/u L Hgb 16.3 (11.7-16.6) g/dL Hct 46.5 (42.0-52.0) % MCV 93.4 (80-94) fL MCH 32.7 (28.0-34.0) pg MCHC 35.1 (30.0-36.0) g/dL RDW 12.2 (12.1-15.1) % Plt Count 189 (130-400) 10^3/c mm MPV 8.8 (7.4-10.4) fL Neut % (Auto) 29.2 % Lymph % (Auto) 58.9 % [place] % (Auto) 6.6 % Eos % (Auto) 3.8 % Baso % (Auto) 1.3 % Neut # (Auto) 1.6 L (1.8-7.7) 10^3/u L Lymph # (Auto) 3.1 (0.8-4.8) 10^3/u L [place] # (Auto) 0.4 (0.2-0.9) 10^3/u L Eos # (Auto) 0.2 (0.0-0.8) 10^3/u L Baso # (Auto) 0.1 (0.0-0.1) 10^3/u L Nucleated RBC % (a uto) 0 % Nucleated RBCs # 0.0 /100WBC Sodium (136-145) mmol/L Potassium (3.5-5.1) mmol/L Chloride (98-107) mmol/L Carbon Dioxide (22-29) mmol/L Anion Gap (5-19) BUN (6-20) mg/dL Creatinine (0.7-1.2) mg/dL GFR Calculation (90-130) mL/min Glucose (65-115) mg/dL Calculated Osmolal ity (285-295) mOsm/k g Calcium (8.5-10.5) mg/dL Magnesium (1.7-2.3) mg/dL Total Bilirubin (0.15-1.2) mg/dL AST (0-40) U/L ALT (0-41) U/L Alkaline Phosphata se (40-130) IU/L Creatine Kinase (39-308) U/L Total Protein (6.6-8.7) g/dL Albumin (3.5-5.2) g/dL Globulin (1.3-4.6) g/dL Urine Color Yellow (Yellow) Urine Appearance Clear (CLEAR) Urine pH 7 (5-7) Ur Specific Gravit y 1.010 (1.005-1.030) Urine Protein Neg (Negative) Urine Glucose (UA) Norm (Normal) Urine Ketones Negative (Negative) Urine Blood Neg (Negative) Urine Nitrate Negative (Negative) Urine Bilirubin Neg (NEGATIVE) Urine Urobilinogen Norm (Negative) mg/dL Ur Leukocyte Dayna ase Negative (Negative) Urine RBC 0-4 H (0-2) /hpf Urine WBC 0-4 H (0-5) /hpf Ur Squamous Epith Cells 0-4 H (0-5) Urine Bacteria 1+ H (NONE) Salicylates (3-10) mg/dL Urine Opiates Scre en Positive H (Negative) ng/mL Acetaminophen (10-30) ug/mL Ur Barbiturates Sc reen Negative (Negative) ng/mL Phenytoin (10-20) ug/mL Valproic Acid (50-100) mcg/mL Carbamazepine (4.0-12.0) ug/mL Ur Phencyclidine S crn Negative (Negative) ng/mL Ur Amphetamines Sc reen Negative (Negative) ng/mL U Benzodiazepines Scrn Negative (Negative) ng/mL [place] (0.6-1.2) mmol/L Urine Cocaine Scre en Negative (Negative) ng/mL U Marijuana (THC) Screen Negative (Negative) ng/mL Ethyl Alcohol (0-10) mg/dL Serum Ketones (Negative) 09/28/19 09/28/19 09/28/19 Range/Units 20:00 20:00 20:00 WBC (4.0-10.0) 10^3/ uL RBC (4.1-5.3) 10^6/u L Hgb (11.7-16.6) g/dL Hct (42.0-52.0) % MCV (80-94) fL MCH (28.0-34.0) pg MCHC (30.0-36.0) g/dL RDW (12.1-15.1) % Plt Count (130-400) 10^3/c mm MPV (7.4-10.4) fL Neut % (Auto) % Lymph % (Auto) % [place] % (Auto) % Eos % (Auto) % Baso % (Auto) % Neut # (Auto) (1.8-7.7) 10^3/u L Lymph # (Auto) (0.8-4.8) 10^3/u L [place] # (Auto) (0.2-0.9) 10^3/u L Eos # (Auto) (0.0-0.8) 10^3/u L Baso # (Auto) (0.0-0.1) 10^3/u L Nucleated RBC % (a uto) % Nucleated RBCs # /100WBC Sodium 142 (136-145) mmol/L Potassium 3.4 L (3.5-5.1) mmol/L Chloride 100 (98-107) mmol/L Carbon Dioxide 28 (22-29) mmol/L Anion Gap 17.4 (5-19) BUN 10 (6-20) mg/dL Creatinine 0.7 (0.7-1.2) mg/dL GFR Calculation 115.8 (90-130) mL/min Glucose 100 (65-115) mg/dL Calculated Osmolal ity 290 (285-295) mOsm/k g Calcium 8.9 (8.5-10.5) mg/dL Magnesium 2.4 H (1.7-2.3) mg/dL Total Bilirubin 0.5 (0.15-1.2) mg/dL AST 45 H (0-40) U/L ALT 30 (0-41) U/L Alkaline Phosphata se 111 (40-130) IU/L Creatine Kinase 119 (39-308) U/L Total Protein 7.5 (6.6-8.7) g/dL Albumin 4.3 (3.5-5.2) g/dL Globulin 3.2 (1.3-4.6) g/dL Urine Color (Yellow) Urine Appearance (CLEAR) Urine pH (5-7) Ur Specific Gravit y (1.005-1.030) Urine Protein (Negative) Urine Glucose (UA) (Normal) Urine Ketones (Negative) Urine Blood (Negative) Urine Nitrate (Negative) Urine Bilirubin (NEGATIVE) Urine Urobilinogen (Negative) mg/dL Ur Leukocyte Dayna ase (Negative) Urine RBC (0-2) /hpf Urine WBC (0-5) /hpf Ur Squamous Epith Cells (0-5) Urine Bacteria (NONE) Salicylates < 0.3 L (3-10) mg/dL Urine Opiates Scre en (Negative) ng/mL Acetaminophen < 5.0 L (10-30) ug/mL Ur Barbiturates Sc reen (Negative) ng/mL Phenytoin 0.8 L (10-20) ug/mL Valproic Acid 2.8 L (50-100) mcg/mL Carbamazepine 2.0 L (4.0-12.0) ug/mL Ur Phencyclidine S crn (Negative) ng/mL Ur Amphetamines Sc reen (Negative) ng/mL U Benzodiazepines Scrn (Negative) ng/mL [place] 0.1 L (0.6-1.2) mmol/L Urine Cocaine Scre en (Negative) ng/mL U Marijuana (THC) Screen (Negative) ng/mL Ethyl Alcohol 333 H* (0-10) mg/dL Serum Ketones Negative (Negative) Discharge Plan Discharge Patient Disposition: Admitted As Inpatient Admit Provider: Kenny Osborn Clinical Impression: Suicidal ideation, Homicidal ideation Alcoholic intoxication Qualifiers: Complication of substance-induced condition: with unspecified complication Qualified Code(s): F10.929 - Alcohol use, unspecified with intoxication, unspecified Condition: Stable Discharge Date/Time: 09/28/19 22:38 Coding Level of Care Code ED Telephone Order Dispatcher for Chg Fwd Exam Comprehensive The documentation recorded by the Timmy mcdowell Carmen, accurately reflects the service I personally performed and the decisions made by Kyle cervantes Eli N Sep 28, 2019 19:18
[2019-09-28] MEDS: haloperidol inj 5 mg/mL INJ 1 mL IM (19:39)
[2019-09-28] MEDS: folic acid 1 MG, multivitamin inj 10 ML, thiamine 100 MG in sodium chloride 0.9% 1,000 ML 252.8 MG IV (20:06)
[2019-09-28 20:07] LABS: Basophils # 0.1 10^3/uL (0.0-0.1); Basophils % 1.3 %; Eosinophils # 0.2 10^3/uL (0.0-0.8); Eosinophils % 3.8 %; Hematocrit 46.5 % (42.0-52.0); Hemoglobin 16.3 g/dL (11.7-16.6); Lymphocytes # 3.1 10^3/uL (0.8-4.8); Lymphocytes % 58.9 %; Mean Corpuscular HGB Conc 35.1 g/dL (30.0-36.0); Mean Corpuscular Hemoglobin 32.7 pg (28.0-34.0); Mean Corpuscular Volume 93.4 fL (80-94); Mean Platelet Volume 8.8 fL (7.4-10.4); Monocytes # 0.4 10^3/uL (0.2-0.9); Monocytes % 6.6 %; Neutrophils # 1.6 10^3/uL (1.8-7.7); Neutrophils % 29.2 %; Nucleated Red Blood Cells % 0 %; Platelet Count 189 10^3/cmm (130-400); Red Blood Count 4.98 10^6/uL (4.1-5.3); Red Cell Distribution Width 12.2 % (12.1-15.1); White Blood Count 5.3 10^3/uL (4.0-10.0)
--- NOTE | 2019-09-28 20:11 | PC.NURSE ---
[facility] NOTIFIED OF PT'S VERBAL THREATS TOWARD HIS FATHER. PT HAD VERBALIZED THESE THREATS TO DR MACIAS , STATING THAT HE HAD PLANS TO HANG HIMSELF AND ALSO KILL HIS FATHER, JANKI PICKARD.
--- NOTE | 2019-09-28 20:15 | PC.PHAR ---
PT ANSWERED MY QUESTIONS, BUT I AM NOT SURE HE KNEW WHICH MEDICATIONS HE HAS, OR WHICH ONES HE IS ACTUALLY TAKING.
[2019-09-28 20:19] LABS: Ketone (Acetest) Serum Negative (Negative)
[2019-09-28 20:34] LABS: Alanine Aminotransferase 30 U/L (0-41); Albumin Level 4.3 g/dL (3.5-5.2); Alkaline Phosphatase 111 IU/L (40-130); Anion Gap 17.4 (5-19); Aspartate Amino Transferase 45 U/L (0-40); Blood Urea Nitrogen 10 mg/dL (6-20); Calcium 8.9 mg/dL (8.5-10.5); Carbon Dioxide 28 mmol/L (22-29); Chloride 100 mmol/L (98-107); Creatine Phosphokinase 119 U/L (39-308); Globulin 3.2 g/dL (1.3-4.6); Glomerular Filtration Rate 115.8 mL/min (90-130); Glucose 100 mg/dL (65-115); Lithium 0.1 mmol/L (0.6-1.2); Magnesium 2.4 mg/dL (1.7-2.3); Osmolality Calculated 290 mOsm/kg (285-295); Phenytoin Dilantin 0.8 ug/mL (10-20); Potassium 3.4 mmol/L (3.5-5.1); Sodium 142 mmol/L (136-145); Total Bilirubin 0.5 mg/dL (0.15-1.2); Total Protein 7.5 g/dL (6.6-8.7); Valproic Acid Level 2.8 mcg/mL (50-100)
[2019-09-28 20:36] LABS: Salicylate < 0.3 mg/dL (3-10)
[2019-09-28 20:37] LABS: Acetaminophen < 5.0 ug/mL (10-30)
[2019-09-28 20:39] LABS: Alcohol Level 333 mg/dL (0-10)
--- NOTE | 2019-09-28 20:40 | PC.NURSE ---
Advised dr castillo of [facility] critical on patient
[2019-09-28 20:45] LABS: Amphetamines Screen Urine Negative (Negative); Barbiturates Screen Urine Negative (Negative); Benzodiazepines Screen Urine Negative (Negative); Cocaine Screen Urine Negative (Negative); Opiate Screen Urine Positive (Negative); PCP Screen Urine Negative (Negative); THC Screen Urine Negative (Negative)
[2019-09-28 20:47] LABS: Bacteria Urine 1+; Bilirubin Urine Neg (NEGATIVE); Blood Urine Neg (Negative); Glucose Urine UA Norm (Normal); Ketones Urine Negative (Negative); Leukocyte Esterase Urine Negative (Negative); Nitrate Urine Negative (Negative); Protein Urine Neg (Negative); RBC Urine 0-4 /hpf (0-2); Squamous Epithelial Cell Urine 0-4 (0-5); Urine Appearance Clear (CLEAR); Urine Color Yellow (Yellow); Urobilinogen Urine Norm (Negative); WBC Urine 0-4 /hpf (0-5); pH Urine 7 (5-7)
--- NOTE | 2019-09-28 21:38 | PM.HP ---
Providers/Chief Complaint Chief Complaint: ETOH History of Present Illness Flakito Almanzar is a 59 year old male who carries diagnosis of HIV, atrial fibrillation, chronic anticoagulation was sent in by his mother because of concerns for alcohol withdrawal, suicidal ideation, homicidal ideation. He has had couple of admissions secondary to alcohol withdrawal and major depressive disorders in the past as well. Patient is endorsing to drinking 1 pint of vodka every day, he is willing to go to alcohol rehab program. He is denying suicidal or homicidal ideation to us. Diagnostics in ER revealed alcohol level 23, hypokalemia, magnesium 2.4,. He will be admitted to ICU with CIWA protocol and 96-hour hold. Patient is a poor historian and not cooperating to give answers. He is endorsing to taking his HIV medications regularly. He smokes 1 pack/day Review of Systems Const: Denies: fever or chills Eyes: Denies: change in vision ENMT: Denies: throat pain Card: Denies: chest pain Resp: Denies: shortness of breath GI: Denies: abdominal pain : Denies: flank pain or difficulty urinating Musc: Denies: neck pain or back pain Skin/Breast: Denies: rash or itching Neuro: Denies: headache Psych: Denies: anxiety Endo: Denies: excessive urination Obey/Lymph: Denies: easy bruising All/Imm: Denies: hives Medications/Allergies Allergies Allergy/AdvReac Type Severity Reaction Status Date / Time No Known Allergies Allergy Verified 09/01/19 08:52 PFSH Acute PFSH: Medical History Atrial fibrillation Colon polyps HIV (human immunodeficiency virus infection) Lymphoma Pulmonary embolism Surgical History H/O colonoscopy H/O hemorrhoidectomy History of orchiectomy, unilateral Family History Other No pertinent family history Social History (Updated 09/28/19 @ 22:48 by Kenny Osborn MD) Smoking and tobacco status: current every day smoker Alcohol intake: current Alcohol use comment: 1 pint of vodka every day Household members: family Housing: House Vitals/I&O/Wt Last Vital Signs Temp 98.1 F 09/28/19 19:20 Pulse 95 09/28/19 19:20 Resp 18 09/28/19 19:20 BP 125/92 09/28/19 19:20 Pulse Ox 95 09/28/19 19:20 Weight last 48 hrs Weight 74.843 kg Physical Exam Narrative: EXAM NARRATIVE: Middle-age man lying in right lateral position with blanket on his face Unkempt appearance He is denying suicidal or homicidal ideation at the moment S1, S2, tachycardia No coarse tremors noted Abdomen distended, obese obesity, dull to percussion Flank distention positive Nontender Lungs reveal bilateral breath sounds without adventitious sounds Neurological nonfocal exam Poor dental hygiene Skin does not show any sign ischemia gangrene ulcer He is exhibiting withdrawn behavior Data : 09/28/19 20:00 09/28/19 20:00 A&P Assessment and plan (1) Alcoholic intoxication: Status: Acute Qualifiers: Complication of substance-induced condition: with unspecified complication Qualified Code(s): F10.929 - Alcohol use, unspecified with intoxication, unspecified Code(s): F10.929 - Alcohol use, unspecified with intoxication, unspecified (2) Suicidal ideation: Status: Acute Code(s): R45.851 - Suicidal ideations (3) Depressive disorder: Status: Acute Code(s): F32.9 - Major depressive disorder, single episode, unspecified Additional A&P Information Alcohol intoxication CIWA protocol High risk for DTs, has a history of DTs which required intubation at one point as per the patient Magnesium level normal, Will check lipase level Hypokalemia: Potassium repleted HIV, continue HIV medications A. fib without RVR Continue anticoagulation And rate control medication Cardizem With alcohol withdrawal and high adrenergic state and anticipating decompensation, will monitor in ICU Full code 96-hour hold for homicidal/suicidal ideation Patient is willing to go for alcohol detoxification rehab Attestations Medical Necessity Statement*: Inpatient, 96-hour hold for alcohol withdrawal and suicidal ideation Time Spent in Patient Care: 40 Critical Care Time: Critical Care Time (min): 30 Coding Level of Care Code Acute [employer] for [facility] Diagnoses Alcoholic intoxication F10.929 Complication of substance-induced condition: with unspecified complication Suicidal ideation R45.851 Depressive disorder F32.9
[2019-09-29] VITALS (56 sets, daily range): BP systolic 110–154; BP diastolic 61–93; PULSE 0–105; RESP 0–24; TEMP 36.6–37.1; O2SAT 91–96
[2019-09-29 00:10] LABS: Lipase 64 U/L (13-60)
--- NOTE | 2019-09-29 02:00 | PC.NURSE ---
iv to left ac dislodged. pt cleaned and new iv started x1 attempt to left forearm 20 ga. digna patrick.
--- NOTE | 2019-09-29 03:00 | PC.NURSE ---
pt incontinent of stool at this time. pt cleaned and assisted back to bed. digna patrick.
[2019-09-29] MEDS: LORazepam 2 mg/mL INJ 1 mL IVP ×2 (04:16→13:51)
[2019-09-29 05:20] LABS: Basophils # 0.1 10^3/uL (0.0-0.1); Basophils % 1.3 %; Eosinophils # 0.2 10^3/uL (0.0-0.8); Eosinophils % 5.1 %; Hematocrit 42.1 % (42.0-52.0); Hemoglobin 14.4 g/dL (11.7-16.6); Lymphocytes # 1.9 10^3/uL (0.8-4.8); Lymphocytes % 47.7 %; Mean Corpuscular HGB Conc 34.2 g/dL (30.0-36.0); Mean Corpuscular Hemoglobin 32.4 pg (28.0-34.0); Mean Corpuscular Volume 94.8 fL (80-94); Mean Platelet Volume 8.7 fL (7.4-10.4); Monocytes # 0.3 10^3/uL (0.2-0.9); Monocytes % 8.5 %; Neutrophils # 1.5 10^3/uL (1.8-7.7); Neutrophils % 37.4 %; Nucleated Red Blood Cells % 0 %; Platelet Count 162 10^3/cmm (130-400); Red Blood Count 4.44 10^6/uL (4.1-5.3); Red Cell Distribution Width 12.1 % (12.1-15.1); White Blood Count 3.9 10^3/uL (4.0-10.0)
[2019-09-29 05:43] LABS: Alanine Aminotransferase 25 U/L (0-41); Albumin Level 3.7 g/dL (3.5-5.2); Alkaline Phosphatase 94 IU/L (40-130); Anion Gap 15.5 (5-19); Aspartate Amino Transferase 45 U/L (0-40); Blood Urea Nitrogen 10 mg/dL (6-20); Calcium 8.1 mg/dL (8.5-10.5); Carbon Dioxide 26 mmol/L (22-29); Chloride 105 mmol/L (98-107); Globulin 2.7 g/dL (1.3-4.6); Glomerular Filtration Rate 138.4 mL/min (90-130); Glucose 92 mg/dL (65-115); Osmolality Calculated 292 mOsm/kg (285-295); Potassium 3.5 mmol/L (3.5-5.1); Sodium 143 mmol/L (136-145); Total Bilirubin 0.6 mg/dL (0.15-1.2); Total Protein 6.4 g/dL (6.6-8.7)
[2019-09-29] MEDS: pantoprazole DR 40 mg Tablet PO (08:03)
--- NOTE | 2019-09-29 08:41 | PC.CHAP ---
Pastoral Care Encounter/Spiritual Assessment Type of Contact [] Declined soft water mechanic visit [] Patient/Family/Request visit [] Outpatient visit [] Follow-up visit [] Physician referral [] Code/Alert [] Routine visit [] Staff referral [] Actively dying [x] Patient sleeping [] Family support [] [] Out of room [] Palliative care [] [] Receiving care in room [] Pre-surgical visit [] Trauma [] Long length of stay [] ICU visit [] Other: Relational/Emotional Strength [] Patient feels connected with others/family/visitors/staff [] Distress [] Loneliness/isolation [] Abandonment Spirituality of Patient [] Person of Talia [] Attends Evangelical of their Talia [] Believes in Prayer [] Reads Bible or Gnosticist materials [] There are Spiritual issues to be addressed Roof Bolter Interventions [] Prayer [] Active listening [] Non-anxious presence [] Spiritual/emotional support [] Crisis/trauma care [] Spiritual counseling [] Bereavement support [] Provided bereavement packet [] Provided Bible/devotional materials [] Provided toy/stuffed animal, coloring book to patient or family member [] Provided Communion [] Anointing/[place] [] Salvation [] Completed spiritual assessment [] Other: Impact on Illness or Injury [] Angry [] Fearful [] Anxious [] Often cries [] Exhaustion [] Unable to work [] Unable to attend amish [] Unable to walk/stand [] Unable to read [] Unable to drive [] Unable to eat/drink [] Unable to sleep [] Unable to be with family [] Patient intubated [] Other: Summary Patient was sleeping at the time of soft water mechanic visit. Patient visit attempted by Roof Bolter Og Tolbert. Time spent with patient 3 minutes
[2019-09-29] MEDS: apixaban 5 mg Tablet PO ×2 (09:13→18:35)
[2019-09-29] MEDS: folic acid 1 mg Tablet PO (09:14)
[2019-09-29] MEDS: dilTIAZem ER (24HR) 240 mg Capsule PO (09:14)
[2019-09-29] MEDS: escitalopram 10 mg Tablet PO (09:14)
[2019-09-29] MEDS: thiamine 100 mg Tablet PO (09:15)
[2019-09-29] MEDS: fluconazole 100 mg Tablet PO (09:15)
[2019-09-29] MEDS: multivitamin therapeutic Tablet 1 TAB PO (09:15)
[2019-09-29] MEDS: LORazepam 2 mg/mL INJ 1 mL IM ×3 (09:21→23:43)
--- NOTE | 2019-09-29 09:27 | PM.PN ---
Subjective Subjective: Interval history: This morning he feels like he is withdrawing. He somewhat anxious. Denies any auditory or visual hallucinations. No reports of seizure. Vitals/I&O/Wt Last Vital Signs Temp 97.7 F 09/28/19 23:10 Pulse 80 09/29/19 08:15 Resp 17 09/29/19 04:20 BP 138/93 09/29/19 04:20 Pulse Ox 92 09/29/19 08:15 Weight last 48 hrs Weight 74.843 kg Physical Exam Const: COMMON NORMALS: no apparent distress and oriented x3 OTHER: Mildly anxious HENMT: COMMON NORMALS: oropharynx normal Neck/C-Spine: COMMON NORMALS: no JVD Resp: COMMON NORMALS: normal respiratory effort and clear to auscultation bilaterally AUSCULTATION: clear to auscultation bilaterally Cardio: COMMON NORMALS: no JVD, regular rhythm, S1 normal heart sound, S2 normal heart sound and no murmurs RHYTHM: regular rhythm HEART SOUNDS: S1 normal and S2 normal GI: COMMON NORMALS: normal to inspection, nondistended, normoactive bowel sounds, soft to palpation and non-tender PALPATION: Yes soft Extremity: COMMON NORMALS: no joint enlargement and no pedal edema Neuro: COMMON NORMALS: oriented x3 and moves all extremities Skin: COMMON NORMALS: no rashes or lesions noted GENERAL SKIN EXAM: no rashes or lesions noted Data : 09/29/19 04:32 09/29/19 04:32 A&P Assessment and plan (1) Alcohol withdrawal: CIWA up to 17 overnight, this morning down to 1. He is mildly anxious, feels some slow withdrawal. Denies auditory visual hallucinations. Discussed with psychiatrist who is going to look into options for rehabilitation for him. Status: Acute Code(s): F10.239 - Alcohol dependence with withdrawal, unspecified (2) Suicidal ideation: Pending psychiatric evaluation. Status: Acute Code(s): R45.851 - Suicidal ideations (3) Depressive disorder: As above. Status: Acute Code(s): F32.9 - Major depressive disorder, single episode, unspecified (4) Alcoholic intoxication: Status: Acute Qualifiers: Complication of substance-induced condition: with unspecified complication Qualified Code(s): F10.929 - Alcohol use, unspecified with intoxication, unspecified Code(s): F10.929 - Alcohol use, unspecified with intoxication, unspecified Additional A&P Information Hypokalemia: Replaced HIV, continue HIV medications A. fib without RVR: Continue anticoagulation. Cardizem 96-hour hold for homicidal/suicidal ideation Attestations Medical Necessity Statement*: Continue admission for assessment and management of alcohol withdrawal, depression, suicidal/homicidal ideation reported by family. Coding Level of Care Code Acute [employer] for [facility] F[facility] Diagnoses Alcohol withdrawal F10.239 Suicidal ideation R45.851 Depressive disorder F32.9 Alcoholic intoxication F10.929 Complication of substance-induced condition: with unspecified complication
[2019-09-29] MEDS: dextrose 5%-sod chloride 0.45% 1,000 ML 100 ML IV ×2 (09:59)
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
--- NOTE | 2019-09-29 15:33 | PC.NURSE ---
pt refuses to wear monitor and is wearing own clothing and wanting to walk around the hospital. Mikki here on the unit discussing care with Dr. Santos. Maurice will place transfer orders and plan is for pt to transfer to [facility] tomorrow at 8am.
[2019-09-29] MEDS: nicotine 21 mg Patch 1 PATCH TRANSDERMA (16:20)
--- NOTE | 2019-09-29 19:58 | PC.NURSE ---
1929 report called to [facility] on med surg. pt not in room when i went to transfer him. belongings taken to room 253 . pt found wandering in [place] and walked to room 253. nurses unable to locate receiving nurse but will tell her he is in his room. pt understands that leaving to smoke will inhibit his care. digna patrick.
[2019-09-29 23:07] LABS: Glucose Point of Care 109 mg/dL (70-110)
[2019-09-30] VITALS: BP 135/88; PULSE 86; RESP 20; TEMP 36.7; O2SAT 94
[2019-09-30] MEDS: nicotine 21 mg Patch 1 PATCH TRANSDERMA (00:35)
[2019-09-30] MEDS: LORazepam 2 mg/mL INJ 1 mL IVP ×4 (00:58→09:59)
[2019-09-30] MEDS: LORazepam 2 mg/mL INJ 1 mL IM ×3 (02:51→07:00)
[2019-09-30] MEDS: ondansetron 2 mg/ML SDV 2 mL 4 MG IVP (02:51)
[2019-09-30 04:00] VITALS: BP 150/99; PULSE 105; RESP 20; TEMP 36.6; O2SAT 95
[2019-09-30] MEDS: pantoprazole DR 40 mg Tablet PO (05:33)
[2019-09-30 05:52] LABS: Basophils # 0.1 10^3/uL (0.0-0.1); Basophils % 1.1 %; Eosinophils # 0.2 10^3/uL (0.0-0.8); Eosinophils % 2.2 %; Hematocrit 46.8 % (42.0-52.0); Hemoglobin 16.1 g/dL (11.7-16.6); Lymphocytes # 2.4 10^3/uL (0.8-4.8); Lymphocytes % 32.6 %; Mean Corpuscular HGB Conc 34.4 g/dL (30.0-36.0); Mean Corpuscular Hemoglobin 32.3 pg (28.0-34.0); Mean Corpuscular Volume 93.8 fL (80-94); Mean Platelet Volume 9.3 fL (7.4-10.4); Monocytes # 0.6 10^3/uL (0.2-0.9); Monocytes % 7.8 %; Neutrophils # 4.1 10^3/uL (1.8-7.7); Nucleated Red Blood Cells % 0 %; Platelet Count 188 10^3/cmm (130-400); Red Blood Count 4.99 10^6/uL (4.1-5.3); Red Cell Distribution Width 12.1 % (12.1-15.1); White Blood Count 7.4 10^3/uL (4.0-10.0)
[2019-09-30 06:12] LABS: Alanine Aminotransferase 27 U/L (0-41); Alkaline Phosphatase 146 IU/L (40-130); Anion Gap 17.6 (5-19); Aspartate Amino Transferase 46 U/L (0-40); Blood Urea Nitrogen 9 mg/dL (6-20); Calcium 9.3 mg/dL (8.5-10.5); Carbon Dioxide 19 mmol/L (22-29); Chloride 102 mmol/L (98-107); Globulin 3.9 g/dL (1.3-4.6); Glomerular Filtration Rate 138.4 mL/min (90-130); Glucose 113 mg/dL (65-115); Osmolality Calculated 277 mOsm/kg (285-295); Potassium 3.6 mmol/L (3.5-5.1); Sodium 135 mmol/L (136-145); Total Bilirubin 1.5 mg/dL (0.15-1.2); Total Protein 7.9 g/dL (6.6-8.7)
[2019-09-30 08:00] VITALS: BP 133/87; PULSE 109; RESP 18; TEMP 36.7; O2SAT 90
[2019-09-30] MEDS: thiamine 100 mg Tablet PO (08:32)
[2019-09-30] MEDS: folic acid 1 mg Tablet PO (08:32)
[2019-09-30] MEDS: escitalopram 10 mg Tablet PO (08:32)
[2019-09-30] MEDS: apixaban 5 mg Tablet PO (08:32)
[2019-09-30] MEDS: fluconazole 100 mg Tablet PO (08:32)
[2019-09-30] MEDS: dilTIAZem ER (24HR) 240 mg Capsule PO (08:33)
[2019-09-30] MEDS: multivitamin therapeutic Tablet 1 TAB PO (08:33)
[2019-09-30] MEDS: dextrose 5%-sod chloride 0.45% 1,000 ML 100 ML IV (10:02)
--- NOTE | 2019-09-30 10:50 | PC.NURSE ---
Patient has been very agitated this shift, he has requested multiple times to go outside and smoke, this nurse has told patient that we are a non-smoking facility but we could offer him a nicotine patch or nicotine gum. Patient refused them. He has been pacing and very anxious. Ativan given per [place] protocol. Patient walking around in room with a cigarette in his mouth, saying he needed a smoke This nurse along with Milana RN went into patient's room to ask if we could keep his cigarettes locked up while he was here due to them being a safety issue. Patient refused to comply. He called his mother to come and get him because he was being kicked out of the hospital Milana and this nurse told patient he was not being kicked out of the hospital but he was encouraged to stay because we were concerned for his safety. Patient refused to stay, signed AMA papers, iv was discontinued and Dr. Richards notified. Home meds were sent with patient, he refused to wait for employee pharmacy to deliver prescription medications that Dr. Richards requested
--- NOTE | 2019-09-30 10:54 | PM.DCS ---
Discharge Providers Date of Admission: 09/28/19 21:52 Date of Discharge: September 30, 2019 Attending Provider at Admission: Kenny Osborn MD Attending Provider at Discharge: Carlos Richards Diagnoses at Discharge Discharge Diagnosis (1) Alcohol withdrawal: Status: Acute (2) Suicidal ideation: Status: Acute (3) Depressive disorder: Status: Acute (4) Alcoholic intoxication: Status: Acute Qualifiers: Complication of substance-induced condition: with unspecified complication Qualified Code(s): F10.929 - Alcohol use, unspecified with intoxication, unspecified Reason for Visit Reason for Visit: Reason For Visit: ETOH Hospital Course Discharge Summary: 59-year-old gentleman with alcoholism, depression, frequent readmissions to the hospital with attempts to get him into rehab so far unsuccessful. He was readmitted with alcohol intoxication and concern by family about his frequent binge drinking. He was placed on 96-hour hold initially in ICU due to concern for suicidal ideation by his family, where he was treated with supportive care for alcohol withdrawal. He had no delirium tremens, no seizure, although was having anxiety during the course of the hospitalization. He was assessed by psychiatry, without finding of suicidal or homicidal ideation, and his 96-hour hold was rescinded. He has been stating he was receptive to again making arrangements for placement for rehabilitation, and arrangements were made in place for today for him to be picked up by [facility], and taken to rehabilitation. This morning, however, he was still noted to have some alcohol withdrawal. On coming upstairs early in the morning before his right had arrived to discuss with him regarding delay of going to rehabilitation until he improves from alcohol withdrawal, however, he was was out from his room for some time and as it turned out was out smoking. Upon return I was able to speak with him and on assessment he denied any auditory or visual hallucinations, denied having any pain or discomfort, although still feeling anxious. He stated understanding with the reasoning and expressed agreement with the plan to delay the right to rehab until morning. I discussed this plan with psychiatry as well who were in agreement. Shortly later he was noted by nursing staff again and irritable mood wanting to again leave to go smoke. Nicotine replacement therapy was discussed and offered to him including nicotine patch and gum, however, he declined both. Shortly after I was notified the patient was leaving AMA, and he did not wait to be seen again. I discussed his condition, as well as the plans and the events this morning with his mother and whose care he is currently. Discussed to encourage him to return to emergency department, as well as to encourage to continue abstinence from alcohol and to seek rehabilitation. She verbalized understanding, although expressed that this is been a very difficult thing to do. Discussed also with psychiatry. He did cigar packer and picker his home medications from the hospital, although also encouraged his mother to have the new prescriptions picked up from our pharmacy. She thinks she may be able to take him in at home with her, although this may be difficult due to his father having dementia. Encouraged her to otherwise check up on him frequently at home if that is where he ends up going. Physical Exam Const: COMMON NORMALS: no apparent distress and oriented x3 OTHER: Mildly anxious, irritable HENMT: COMMON NORMALS: oropharynx normal Neck/C-Spine: COMMON NORMALS: no JVD Resp: COMMON NORMALS: normal respiratory effort and clear to auscultation bilaterally AUSCULTATION: clear to auscultation bilaterally Cardio: COMMON NORMALS: no JVD, regular rhythm, S1 normal heart sound, S2 normal heart sound and no murmurs RHYTHM: regular rhythm HEART SOUNDS: S1 normal and S2 normal GI: COMMON NORMALS: normal to inspection, nondistended, normoactive bowel sounds, soft to palpation and non-tender PALPATION: Yes soft Extremity: COMMON NORMALS: no joint enlargement and no pedal edema Neuro: COMMON NORMALS: oriented x3 and moves all extremities Psych: COMMON NORMALS: mental status grossly normal (He is awake, alert, lucid, with good insight into his condition.) OTHER: No SI, HI, hallucinations. Skin: COMMON NORMALS: no rashes or lesions noted GENERAL SKIN EXAM: no rashes or lesions noted Discharge Data Data Completed and Pending: Labs from last 24 hours 09/30/19 09/30/19 09/29/19 05:07 05:07 20:33 WBC 7.4 RBC 4.99 Hgb 16.1 Hct 46.8 MCV 93.8 MCH 32.3 MCHC 34.4 RDW 12.1 Plt Count 188 MPV 9.3 Neut % (Auto) 56.0 Lymph % (Auto) 32.6 [place] % (Auto) 7.8 Eos % (Auto) 2.2 Baso % (Auto) 1.1 Neut # (Auto) 4.1 Lymph # (Auto) 2.4 [place] # (Auto) 0.6 Eos # (Auto) 0.2 Baso # (Auto) 0.1 Nucleated RBC % (a uto) 0 Nucleated RBCs # 0.0 Sodium 135 L Potassium 3.6 Chloride 102 Carbon Dioxide 19 L Anion Gap 17.6 BUN 9 Creatinine 0.6 L GFR Calculation 138.4 H Glucose 113 POC Glucose 109 Calculated Osmolal ity 277 L Calcium 9.3 Total Bilirubin 1.5 H AST 46 H ALT 27 Alkaline Phosphata se 146 H Total Protein 7.9 Albumin 4.0 Globulin 3.9 Vitals: Last Vital Signs Temp 98.0 F 09/30/19 08:00 Pulse 109 H 09/30/19 08:00 Resp 18 09/30/19 08:00 BP 133/87 09/30/19 08:00 Pulse Ox 90 09/30/19 08:00 Discharge Plan Discharge Patient Disposition: Xfer Other Condition: Stable Prescriptions: New thiamine mononitrate (vit B1) [Vitamin B-1 (mononitrate)] 100 mg Tablet 100 mg PO DAILY Qty: 30 RF: 0 nicotine 21 mg/24 hr Patch 24 Hour 1 patch transdermal DAILY Qty: 30 RF: 0 folic acid 1 mg Tablet 1 mg PO DAILY Qty: 30 RF: 0 Thera 400 mcg Tablet 1 tab PO DAILY Qty: 30 RF: 0 Continued potassium chloride [Klor-Con M20] 20 mEq tablet,ER particles/crystals 20 meq PO BID RF: 0 escitalopram oxalate [Lexapro] 10 mg tablet 10 mg PO DAILY RF: 0 fluconazole [Diflucan] 100 mg tablet 100 mg PO DAILY RF: 0 sildenafil (pulm.hypertension) 20 mg tablet 20 mg PO TID RF: 0 pantoprazole 40 mg tablet,delayed release (DR/EC) 40 mg PO QAM RF: 0 fentanyl 50 mcg/hr Patch 72 Hour 1 patch TRANSDERMAL Q72H RF: 0 lorazepam 1 mg Tablet 1 mg PO DAILY PRN (Reason: Anxiety) RF: 0 Eliquis 5 mg Tablet 5 mg PO BID RF: 0 Isentress 400 mg tablet 400 mg PO DAILY RF: 0 Opsumit 10 mg tablet 10 mg PO DAILY RF: 0 mirtazapine [Remeron] 15 mg tablet 15 mg PO BEDTIME RF: 0 Dovato 50-300 mg tablet 50 - 300 tab PO DAILY RF: 0 diltiazem HCl [Cartia XT] 240 mg capsule,extended release 24hr 240 mg PO DAILY RF: 0 albuterol sulfate 2.5 mg /3 mL (0.083 %) solution for nebulization 2.5 mg INHALATION Q4-5H PRN (Reason: prn) Qty: 180 RF: 0 ipratropium-albuterol 0.5 mg-3 mg(2.5 mg base)/3 mL solution for nebulization 3 ml INHALATION QID Qty: 180 RF: 0 (DME) Compact Compressor Nebulizer Misc See Rx Instructions .ROUTE .MEDSUPPLY Qty: 1 RF: 0 Referrals: Tomas Spivey [Other] - 4-7 days [facility] [Provider Group] (After discharge from rehabilitation.) Abdoul Morejon MD [Hospitalist] - (Confirm apptointment) Discharge Diet: Cardiac Discharge Activity: Increase activity as tolerated Discharge Attestations Time Spent in Discharge Care*: greater than 30 min Quality Metrics Clinical Quality Measures During this hospital stay, did patient experience: None Coding Level of Care Code Acute Corporate Development Associate for [employer] Fwd Diagnoses Alcohol withdrawal F10.239 Suicidal ideation R45.851 Depressive disorder F32.9 Alcoholic intoxication F10.929 Complication of substance-induced condition: with unspecified complication
[2019-09-30 20:29] VITALS: BP 133/87; PULSE 109; RESP 18; TEMP 36.7; O2SAT 90
== END 2019-09-30 09:00 | disposition other institution (70) | DRG 897 ==
LOC: ER 19:30 → ICU 22:09 → MEDSURG 09-29 19:57
PROVIDERS: Admitting Provider Internal Medicine; Emergency Provider Emergency Medicine; Visit Provider Internal Medicine
DX: F10.929 Alcohol use, unspecified with intoxication, unspecified (principal); R45.851 Suicidal ideations; F32.9 Major depressive disorder, single episode, unspecified; F17.210 Nicotine dependence, cigarettes, uncomplicated; R45.850 Homicidal ideations
CPT/HCPCS: 12345; 36415; 36416; 80053; 80156; 80164; 80178; 80185; 80307; 81001; 82009; 82550; 82962; 83690; 83735; 85025; 96372; 96375; 99283; A9270; J1630; J2060; J2405; J3411; J3490; J7030; J7799

== ENCOUNTER 2019-11-03 16:10 | Outpatient (CLI) | payer MEDICARE, MEDICAID, SELFPAY ==
[2019-11-03 17:08] LABS: Basophils # 0.1 10^3/uL (0.0-0.1); Basophils % 1.1 %; Eosinophils # 0.2 10^3/uL (0.0-0.8); Eosinophils % 3.6 %; Hemoglobin 14.1 g/dL (11.7-16.6); Lymphocytes % 33.3 %; Mean Corpuscular HGB Conc 33.6 g/dL (30.0-36.0); Mean Corpuscular Hemoglobin 33.7 pg (28.0-34.0); Mean Corpuscular Volume 100.2 fL (80-94); Mean Platelet Volume 9.1 fL (7.4-10.4); Monocytes # 0.7 10^3/uL (0.2-0.9); Monocytes % 10.7 %; Neutrophils # 3.1 10^3/uL (1.8-7.7); Nucleated Red Blood Cells % 0 %; Platelet Count 205 10^3/cmm (130-400); Red Blood Count 4.19 10^6/uL (4.1-5.3); Red Cell Distribution Width 12.8 % (12.1-15.1); White Blood Count 6.1 10^3/uL (4.0-10.0)
[2019-11-03 17:14] LABS: INR 0.99 (0.8-1.2)
[2019-11-03 17:33] LABS: Alanine Aminotransferase 10 U/L (0-41); Albumin Level 4.1 g/dL (3.5-5.2); Alkaline Phosphatase 100 IU/L (40-130); Aspartate Amino Transferase 16 U/L (0-40); Blood Urea Nitrogen 12 mg/dL (6-20); Calcium 9.8 mg/dL (8.5-10.5); Carbon Dioxide 22 mmol/L (22-29); Chloride 102 mmol/L (98-107); Globulin 3.4 g/dL (1.3-4.6); Glomerular Filtration Rate 99.3 mL/min (90-130); Glucose 110 mg/dL (65-115); Lactate Dehydrogenase 146 U/L (135-225); Osmolality Calculated 283 mOsm/kg (285-295); Sodium 138 mmol/L (136-145); Total Bilirubin 0.3 mg/dL (0.15-1.2); Total Protein 7.5 g/dL (6.6-8.7)
== END 2019-11-03 16:11 | disposition home or self-care (01) ==
LOC: ONCMED 17:23
PROVIDERS: Visit Provider Internal Medicine Medical Oncology
DX: C83.39 Diffuse large B-cell lymphoma, extranodal and solid organ sites (principal); I27.20 Pulmonary hypertension, unspecified; Z79.01 Long term (current) use of anticoagulants
CPT/HCPCS: 36415; 80053; 83615; 85025; 85610

== ENCOUNTER 2019-11-04 08:31 | Outpatient (CLI) | payer MEDICARE, MEDICAID, SELFPAY ==
--- NOTE | 2019-11-05 12:49 | ONC FU_ITS ---
Dr. Morejon Patient Follow-Up Note Patient: Flakito Almanzar Unit #: [id number]: [id number] Dicatated By: Abdoul Morejon M.D.Date of Visit:Nov 04, 2019 Telehealth Progress Note The patient has been informed that the visit may not be secure and acknowledged the information. I have explained the option of participating in a telephone or video visit during the [facility] emergency to the patient. After being given an opportunity to ask questions about and discuss this type of visit, the patient verbally consented to proceeding with the telephone/video visit. the patient understands that this service replaces an office visit and they may be billed and /or responsible for any applicable copayments Chief Complaint: Lymphoma/pulmonary hypertension. 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 He developed pulmonary hypertension following a major episode of pulmonary embolism in January 2010. The lymphoma occurred in association with HIV disease. His treatment included left radical orchiectomy followed by 4 cycles of CHOP chemotherapy, which he completed in April of 2003. 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 Following chemotherapy, he was given prophylactic radiation to the right testicle. He has remained on observation since then, thus far with no evidence of recurrence of the lymphoma. In January of 2010 he was admitted to the hospital with deep vein thrombosis of the right leg and multiple pulmonary emboli. He was treated with thrombo-lysis followed by IV heparin and he then continued chronic anticoagulation with warfarin. He also has severe underlying COPD, and he subsequently was found to have severe pulmonary hypertension, for which he has been on treatment with Opsumit. He had restaging CT chest/abdomen/pelvis in April 2015. It did show findings of advanced emphysema and advanced pulmonary hypertension. Also noted was diverticulosis with marked mucosal thickening in the sigmoid colon, but similar to the previous study in 2009. There was no lymphadenopathy or other evidence of recurrence of the lymphoma. Colonoscopy on 01/31/2016 showed a severe intrinsic stenosis in the left colon. The stenosis was not able to be traversed. There were multiple medium diverticula without evidence of perforation or abscess and without evidence of bleeding. A subsequent barium abdomen showed no evidence of soft tissue mass or mucosal limiting stricture. Mild narrowing of the mid descending colon was felt to be most likely related to chronic diverticulosis. He was noted to have tortuous overlapping loops of colon. On 09/16/2016 he was seen in the emergency room with shortness of breath and vomiting. He was transferred to [facility] for admission. He apparently had evidence of bleeding gastric ulcers, and he was taken off warfarin for one month. He was then able to restart anticoagulation with warfarin, and during subsequent follow-up he remained stable clinically. During the course of that hospitalization he also was found to have nocturnal oxygen desaturation. He has continued on home oxygen. He has remained on observation/expectant management for the lymphoma. His medical history is otherwise significant for the HIV disease. He has chronic pain, and he also has a history of depression. He has a long smoking history, up to 2 packs of cigarettes daily. He had quit smoking in 2013, but he subsequently started again. INTERIM HISTORY: He was seen for a follow-up visit on 12/05/2018. That point he was complaining of nausea/anorexia, and he was losing weight. He was otherwise stable clinically. He was given a prescription for Marinol for the anorexia/weight loss. Sometime after that visit his anticoagulation was transition from warfarin to apixaban. On 12/21/2018 he was admitted to the hospital after presenting to the emergency room with shortness of breath. Chest x-ray at that time showed nonspecific diffuse interstitial prominence with left basilar atelectasis, similar to prior studies. He was treated empirically for pneumonia. On 01/19/2019 he returned to the emergency room with hemoptysis. His CT pulmonary angiogram showed small filling defects suggestive of incomplete, nonocclusive emboli involving right middle or lower lobe pulmonary artery branches. He was transferred to [facility] for admission. I did not receive any of those records. He apparently was discharged with no change in his anticoagulation. He was then scheduled for repeat CT pulmonary angiogram on 02/04/2019. It showed evidence of right middle lobe pulmonary emboli with the embolic burden slightly increased compared to the 01/19/2019 study. At that point his anticoagulation was changed to therapeutic Lovenox, but during subsequent follow-up it was transitioned to dabigatran 150 mg twice a day. Repeat CT pulmonary angiogram on 03/25/2019 showed resolution of previously noted right middle lobe pulmonary arterial emboli. There were no emboli seen on the current study. There was severe chronic emphysema and there was associated pulmonary arterial dilatation. There was increased subsegmental atelectasis or brachial scarring in the left lower lobe. There was no evidence of a neoplastic process of the chest. I had seen him for a follow-up visit on 03/26/2019. At that point he appeared stable clinically, and he continued anticoagulation with dabigatran. Subsequent to that visit, he had several admissions to the hospital for alcohol related issues. During the first admission, which was on 05/17/2019, a CT pulmonary angiogram showed severe COPD with bilateral basilar atelectasis, but no evidence of pulmonary embolism. He had initially declined rehab, and ultimately he was discharged home to the care of his mother. During that time, his anticoagulation was changed from the dabigatran to apixaban. I had seen him for a follow-up visit on 06/24/2019. At that point he was not drinking. He was having diarrhea, which he thought was possibly a side effect of the apixaban, and he desired to change anticoagulation back to warfarin. On 08/02/2019 he was again admitted to the hospital with acute alcohol intoxication. He was discharged home on 08/06/2019 on anticoagulaton with apixaban. He is seen for a followup visit by Telehealth. He has been feeling pretty good generally. He has continued anticoagulation with apixaban, which he seems to tolerate well. His energy has been pretty good. He is able to do light work. ECOG score is 1. He has good appetite. He has not had fever. He occasionally has night sweating. He says his breathing is pretty good, though he is on oxygen most of the time. He does not complain of cough and he has not been having chest pain. He has nausea occasionally and he has been having some acid reflux despite taking Protonix daily. He tends to have loose stools in the morning. Bladder function has been okay. He has pain in his legs and he also has some joint pain, but it has been managed adequately with fentanyl. He has just very occasional headache. He has some numbness/tingling in his hands and feet. Medications: Acamprosate Calcium 2 Tablet (of 333 mg) Tablet, enteric coated Oral t.i.d., Diflucan 1 (100 mg) Tablet Oral daily, Dovato 1 Tablet (of 50-300 mg) Oral daily, Duragesic-50 1 (50 mcg/hr) Patch 72 Hr Transdermal q 72 hours, Eliquis 1 Tablet (of 5 mg) Oral b.i.d., Ferrous Sulfate 1 Tablet (of 325 (65 fe) mg) Oral daily, Lexapro 1 Tablet (of 20 mg) Oral daily, Naltrexone HCl 0.5 Tablet (of 50 mg) Oral b.i.d., Opsumit 1 Tablet (of 10 mg) Oral daily, Potassium Chloride 1 (10 meq) Tablet, controlled release Oral b.i.d., predniSONE 1 Tablet (of 5 mg) Oral daily, Sildenafil Citrate 1 Tablet (of 25 mg) Oral t.i.d., Spiriva HandiHaler 1 (18 mcg) Capsule Inhalation daily, TraZODone HCl 1 (150 mg) Tablet Oral at bedtime, Ventolin HFA 2 puff(s) (of 108 (90 Base) mcg/act) Aerosol, solution Inhalation q 4 hours PRN Allergies: No Known Allergies. Review of Systems: Constitutional - His energy is pretty good. He is doing some walking and light work around the house. His appetite is good and weight is stable. No fever, chills, or hot flashes. He has occasional night sweats. ECOG score is 1, ENMT - He has sinus drainage. No mouth sores. No sore throat or difficulty swallowing, Hematologic/Lymphatic - No abnormal bruising or bleeding, Respiratory - He has some shortness of breath with activity. No cough. No pleuritic pain or hemoptysis. He wears oxygen most of the time, Cardiovascular - No angina pain. No palpitations, Gastrointestinal - No nausea or vomiting. He has frequent heartburn despite taking Protonix once daily. He has some loose stools in the mornings. No constipation. No blood in the stool or black stools, Genitourinary (M) - No dysuria or hematuria. He has urinary frequency at night. No urgency or incontinence, Musculoskeletal - He has intermittent pain in his legs and arms. His pain is adequately managed with fentanyl patches, Integumentary - No skin complications, Neurologic - He has occasional headaches. No dizziness. He has numbness and tingling in his hands and feet, Psychiatric - His anxiety/depression is adequately managed. He has been sleeping better with tazodone. Physical Examination: Constitutional - He appears chronically ill, but stable. Lab/Imaging: CBC shows hemoglobin 14.1 g, white blood cell count 6100, and platelet count 205,000. Comprehensive metabolic profile is unremarkable. LDH is normal at 146 U/L. Impression: 1. Patient with diffuse large B-cell lymphoma involving the left testicle, stage I E, which developed in association with HIV disease. 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 2. He has severe underlying COPD. 3. He had an episode of major pulmonary embolism in 2009, for which he has remained anticoagulated with warfarin. He subsequently was found to have severe pulmonary hypertension. 4. He developed hemoptysis in association with an episode of pneumonia in February 2014. Bronchoscopy showed no endobronchial lesion or other specific cause for the bleeding. The hemoptysis resolved with antibiotic therapy, and he was able to resume anticoagulation. 5. Subjectively he has had some improvement since starting Opsumit for the pulmonary hypertension. 6. He had a hospitalization in August 2016 for bleeding gastric ulcers. He was taken off warfarin for one month. During followup he has been chronically ill. He has continued follow-up with his mortgage coordinator and with his infectious disease specialist, both of whom are in [place]. He has had ongoing problems with fatigue and chronic pain. In December 2018 he had another episode of pulmonary embolism which occurred after his anticoagulation had been transitioned from warfarin to apixaban. He was then switched to therapeutic Lovenox and subsequently to dabigatran. His repeat CT pulmonary angiogram on 03/25/2019 showed resolution of the previously noted right middle lobe pulmonary emboli with no emboli evident on that study. At his follow-up visit on 03/26/2019 he appeared stable clinically, and he continued anticoagulation with dabigatran. His subsequent clinical course was complicated by alcohol abuse, requiring several hospital admissions. During that time his anticoagulation was changed back to apixaban. At his follow-up visit on 06/24/2019 I had put him back on warfarin, as he thought that the apixaban was causing diarrhea. On 08/02/2019 he was admitted to the hospital again with alcohol intoxication. He was since then been back on apixaban, and it has been tolerable. His overall clinical status at this point appears stable. He has had no further thromboembolism. Plan: He will continue anticoagulation with apixaban 5 mg bid. He will continue on the fentanyl patch, which does appear to be controlling his pain adequately. I will have him try increasing the pantoprazole to twice daily, as his acid reflux has not been managed adequately with once daily dosing. His other medications remain the same. I will see him again in 3 months, or sooner as needed. Signed By: Abdoul Morejon M.D. <<Signature on File>>
== END 2019-11-04 08:32 | disposition home or self-care (01) ==
LOC: ONCMED 08:31
PROVIDERS: Visit Provider Internal Medicine Medical Oncology
DX: Z86.711 Personal history of pulmonary embolism (principal); Z79.01 Long term (current) use of anticoagulants; Z85.72 Personal history of non-Hodgkin lymphomas; B20 Human immunodeficiency virus [HIV] disease; J44.9 Chronic obstructive pulmonary disease, unspecified; K21.9 Gastro-esophageal reflux disease without esophagitis; Z92.3 Personal history of irradiation; Z92.21 Personal history of antineoplastic chemotherapy; Z79.891 Long term (current) use of opiate analgesic; F10.10 Alcohol abuse, uncomplicated

== ENCOUNTER 2019-12-10 20:01 | Emergency (ER) | payer MEDICARE, MEDICAID, SELFPAY ==
[2019-12-10] VITALS (8 sets, daily range): BP systolic 107–127; BP diastolic 75–86; PULSE 89–102; RESP 13–20; TEMP 36.6; O2SAT 92–96; BMI 23.7
--- NOTE | 2019-12-10 20:09 | XR_ITS ---
WS: [id number] CHEST XRAY TECHNIQUE: Portable chest. CLINICAL INFORMATION: cp COMPARISON: September 01, 2019 FINDINGS: Heart: Normal cardiac silhouette. Lungs: Advanced chronic emphysematous changes. Chronic appearing interstitial thickening in both lung s. Subsegmental atelectasis left lower lobe. Enlarged right pulmonary artery unchanged from previous. Bones: Normal visualized bony structures. XR/XR chest 1V portable [id number] IMPRESSION: 1. No acute pulmonary infiltrates. 2. Chronic emphysematous changes with interstitial thickening is stable. 3. Enlarged right greater than left central pulmonary arteries unchanged from previous. This can be seen with pulmonary arterial hypertension.
--- NOTE | 2019-12-10 20:13 | ED_ITS ---
HPI - Chest Pain General: Chief Complaint: Chest Pain Stated Complaint: CP Time Seen by Provider: 12/10/19 20:09 Source: patient and EMS Mode of arrival: EMS Limitations: no limitations History of Present Illness: HPI narrative: 59-year-old male has history of HIV along with chronic alcoholism. Patient states that he has been having abdominal pain and chest pain over the last 2 days. He states pain is sharp in nature and rates it a 6 out of 10. He states is been 2 days since he had no drink of alcohol. He denies any worsening or improving factors. He said no vomiting. complaint: chest pain Onset (ago): hour(s) Timing of current episode: constant Onset: during rest Pain radiation: none Severity: moderate Relieving factors: nothing Exacerbating factors: nothing Associated symptoms: Reports abdominal pain; Deny dyspnea, fever(s), nausea or vomiting Review of Systems Const: Denies: fever(s), chills, body aches or change in appetite Eyes: Denies: blurry vision or eye discomfort ENMT: Denies: throat pain or dental pain Card: Reports: chest pain Resp: Denies: dyspnea GI: Reports: abdominal pain; Denies: nausea, vomiting or diarrhea : Denies: dysuria Musc: Denies: neck pain or back pain Skin/Breast: Denies: rash Neuro: Denies: headache(s) Psych: Denies: depression Obey/Lymph: Denies: easy bruising All/Imm: Denies: urticaria PFSH ED PFSH: Medical History Atrial fibrillation Colon polyps Diverticulitis HIV (human immunodeficiency virus infection) Hypogonadism Liver tumor Lymphoma Meningitis Orchialgia Pulmonary embolism Surgical History H/O colonoscopy H/O hemorrhoidectomy History of orchiectomy, unilateral Family History Other No pertinent family history Social History Smoking and tobacco status: current every day smoker Alcohol intake: current Household members: family Housing: House Physical Exam Const: COMMON NORMALS: no acute distress, patient oriented x3 and healthy appearing HENMT: COMMON NORMALS: normocephalic and atraumatic HEAD & SCALP: normocephalic and atraumatic Eye: COMMON NORMALS: Equal, round and reactive pupils present and EOMs intact bilaterally PUPIL: Yes Equal, round and reactive pupils present Neck/C-Spine: COMMON NORMALS: full ROM and supple Chest: COMMONS NORMALS: normal inspection of the chest and normal palpation of entire chest wall Resp: COMMON NORMALS: normal respiratory effort, No retractions, No use of accessory muscles and clear to auscultation bilaterally AUSCULTATION: clear to auscultation bilaterally Cardio: COMMON NORMALS: regular rate, regular rhythm and No murmurs present (Cardio) RATE: regular rate RHYTHM: regular rhythm GI: COMMON NORMALS: Normal to inspection, nondistended, normoactive bowel sounds present, Soft to palpation, non-tender and no masses PALPATION: Yes Soft to palpation Extremity: COMMON NORMALS: normal to inspection and full ROM Neuro: COMMON NORMALS: patient oriented x3, moves all extremities and no focal motor deficits Psych: COMMON NORMALS: mental status grossly normal, Normal thought process present and cooperative THOUGHT PROCESS: Normal thought process present Skin: COMMON NORMALS: no rashes or lesions noted and no wounds GENERAL SKIN EXAM: no rashes or lesions noted Course Vital Signs: Vital signs: Vital Signs Temperature 97.8 F 12/10/19 20:03 Pulse Rate 89 12/10/19 23:18 Respiratory Rate 19 H 12/10/19 23:18 Blood Pressure 117/75 12/10/19 23:18 Pulse Oximetry 94 12/10/19 23:18 MDM - Chest Pain MDM Narrative: Medical decision making narrative: Patient presents here with chest pain that is atypical in nature. Patient's pain resolved here after Ativan. Initial and repeat troponins here are negative. Patient's lab work is negative as well he feels much improved and is stable for discharge. Abdominal exam is benign at discharge. Patient is to follow-up with primary care doctor and return if worsening. Lab Data: Labs: Lab Results 12/10/19 12/10/19 12/10/19 Range/Units 20:10 20:10 20:10 WBC 5.9 (4.0-10.0) 10^3/ uL RBC 4.65 (4.1-5.3) 10^6/u L Hgb 15.4 (11.7-16.6) g/dL Hct 44.5 (42.0-52.0) % MCV 95.7 H (80-94) fL MCH 33.1 (28.0-34.0) pg MCHC 34.6 (30.0-36.0) g/dL RDW 12.4 (12.1-15.1) % Plt Count 172 (130-400) 10^3/c mm MPV 8.5 (7.4-10.4) fL Neut % (Auto) 44.2 % Lymph % (Auto) 39.2 % Simpson % (Auto) 14.2 % Eos % (Auto) 1.0 % Baso % (Auto) 1.2 % Neut # (Auto) 2.6 (1.8-7.7) 10^3/u L Lymph # (Auto) 2.3 (0.8-4.8) 10^3/u L Simpson # (Auto) 0.8 (0.2-0.9) 10^3/u L Eos # (Auto) 0.1 (0.0-0.8) 10^3/u L Baso # (Auto) 0.1 (0.0-0.1) 10^3/u L Nucleated RBC % (a uto) 0 % Nucleated RBCs # 0.0 /100WBC Sodium 137 (136-145) mmol/L Potassium 3.5 (3.5-5.1) mmol/L Chloride 101 (98-107) mmol/L Carbon Dioxide 20 L (22-29) mmol/L Anion Gap 19.5 H (5-19) BUN 8 (6-20) mg/dL Creatinine 0.7 (0.7-1.2) mg/dL GFR Calculation 115.8 (90-130) mL/min Glucose 103 (65-115) mg/dL Calculated Osmolal ity 280 L (285-295) mOsm/k g Calcium 7.8 L (8.5-10.5) mg/dL Total Bilirubin 0.4 (0.15-1.2) mg/dL AST 24 (0-40) U/L ALT 17 (0-41) U/L Alkaline Phosphata se 84 (40-130) IU/L Troponin T Baselin e 19 H (0-15) ng/mL Troponin T [address] [place] (0-15) ng/mL Delta Troponin T (0-10) ABS# Total Protein 6.8 (6.6-8.7) g/dL Albumin 4.3 (3.5-5.2) g/dL Globulin 2.5 (1.3-4.6) g/dL Lipase 66 H (13-60) U/L Ethyl Alcohol (0-10) mg/dL 12/10/19 12/10/19 Range/Units 20:10 22:40 WBC (4.0-10.0) 10^3/ uL RBC (4.1-5.3) 10^6/u L Hgb (11.7-16.6) g/dL Hct (42.0-52.0) % MCV (80-94) fL MCH (28.0-34.0) pg MCHC (30.0-36.0) g/dL RDW (12.1-15.1) % Plt Count (130-400) 10^3/c mm MPV (7.4-10.4) fL Neut % (Auto) % Lymph % (Auto) % Simpson % (Auto) % Eos % (Auto) % Baso % (Auto) % Neut # (Auto) (1.8-7.7) 10^3/u L Lymph # (Auto) (0.8-4.8) 10^3/u L Simpson # (Auto) (0.2-0.9) 10^3/u L Eos # (Auto) (0.0-0.8) 10^3/u L Baso # (Auto) (0.0-0.1) 10^3/u L Nucleated RBC % (a uto) % Nucleated RBCs # /100WBC Sodium (136-145) mmol/L Potassium (3.5-5.1) mmol/L Chloride (98-107) mmol/L Carbon Dioxide (22-29) mmol/L Anion Gap (5-19) BUN (6-20) mg/dL Creatinine (0.7-1.2) mg/dL GFR Calculation (90-130) mL/min Glucose (65-115) mg/dL Calculated Osmolal ity (285-295) mOsm/k g Calcium (8.5-10.5) mg/dL Total Bilirubin (0.15-1.2) mg/dL AST (0-40) U/L ALT (0-41) U/L Alkaline Phosphata se (40-130) IU/L Troponin T Baselin e (0-15) ng/mL Troponin T [address] [place] 16.48 H (0-15) ng/mL Delta Troponin T -2.52 L (0-10) ABS# Total Protein (6.6-8.7) g/dL Albumin (3.5-5.2) g/dL Globulin (1.3-4.6) g/dL Lipase (13-60) U/L Ethyl Alcohol 188 H (0-10) mg/dL Imaging Data^: CXR: Attestation: I personally reviewed and interpreted this imaging study as follows: My impression: no acute abnormality EKG Data^: EKG 1: Attestation: I personally reviewed and interpreted this EKG as follows: EKG interpretation date: 12/10/19 EKG interpretation time: 20:59 Interpretation: nsr hr [address] or t wave abnormalities qrs 106 qtc 442 Discharge Plan Discharge Patient Disposition: Home, Self-Care Clinical Impression: Atypical chest pain Condition: Stable Prescriptions: No Action potassium chloride [Klor-Con M20] 20 mEq tablet,ER particles/crystals 20 meq PO BID RF: 0 fluconazole [Diflucan] 100 mg tablet 100 mg PO DAILY RF: 0 sildenafil (pulm.hypertension) 20 mg tablet 20 mg PO TID RF: 0 pantoprazole 40 mg tablet,delayed release (DR/EC) 40 mg PO QAM RF: 0 diltiazem HCl [Cartia XT] 240 mg capsule,extended release 24hr 240 mg PO DAILY Qty: 90 RF: 3 fentanyl 50 mcg/hr Patch 72 Hour 1 patch TRANSDERMAL Q72H RF: 0 lorazepam 1 mg Tablet 1 mg PO DAILY PRN (Reason: Anxiety) RF: 0 Eliquis 5 mg Tablet 5 mg PO BID RF: 0 Opsumit 10 mg tablet 10 mg PO DAILY RF: 0 mirtazapine [Remeron] 15 mg tablet 15 mg PO BEDTIME RF: 0 Dovato 50-300 mg tablet 50 - 300 tab PO DAILY RF: 0 Multiple Vitamins Tablet 1 tab PO DAILY RF: 0 trazodone 150 mg Tablet 150 mg PO DAILY RF: 0 Ventolin HFA 90 mcg/actuation Hfa Aerosol Inhaler 2 puff INHALATION QID PRN (Reason: Shortness Of Breath) RF: 0 testosterone 1.62 % (40.5 mg/2.5 gram) Gel In Packet 1 packet TRANSDERMAL DAILY RF: 0 bupropion HCl See Rx Instructions .ROUTE .COMPLEX RF: 0 sulfamethoxazole-trimethoprim See Rx Instructions .ROUTE .COMPLEX RF: 0 albuterol sulfate 2.5 mg /3 mL (0.083 %) solution for nebulization 2.5 mg INHALATION Q4-5H PRN (Reason: prn) Qty: 180 RF: 0 ipratropium-albuterol 0.5 mg-3 mg(2.5 mg base)/3 mL solution for nebulization 3 ml INHALATION QID Qty: 180 RF: 0 (DME) Compact Compressor Nebulizer Misc See Rx Instructions .ROUTE .MEDSUPPLY Qty: 1 RF: 0 Discharge Orders: Discharge Order (Routine); Ordered 12/10/19 Ordered By: Fanny Virgen Discharge Diet: Advance as tolerated Discharge Activity: Resume usual activity Patient Instructions: Chest Pain (ED) Activity Restrictions/Additional Instructions: Follow-up with your primary care doctor in 3 to 5 days Discharge Date/Time: 12/11/19 00:13 Coding Level of Care Code ED [place] [employer] for Chg Fwd Exam Comprehensive
[2019-12-10] MEDS: morphine 4 mg/mL SDV 1 mL IVP (20:25)
[2019-12-10] MEDS: sodium chloride 0.9% 1,000 ML 999 ML IV (20:25)
[2019-12-10] MEDS: LORazepam 2 mg/mL INJ 1 mL 1 MG IVP ×2 (20:26→21:22)
[2019-12-10 20:29] LABS: Basophils # 0.1 10^3/uL (0.0-0.1); Basophils % 1.2 %; Eosinophils # 0.1 10^3/uL (0.0-0.8); Hematocrit 44.5 % (42.0-52.0); Hemoglobin 15.4 g/dL (11.7-16.6); Lymphocytes # 2.3 10^3/uL (0.8-4.8); Lymphocytes % 39.2 %; Mean Corpuscular HGB Conc 34.6 g/dL (30.0-36.0); Mean Corpuscular Hemoglobin 33.1 pg (28.0-34.0); Mean Corpuscular Volume 95.7 fL (80-94); Mean Platelet Volume 8.5 fL (7.4-10.4); Monocytes # 0.8 10^3/uL (0.2-0.9); Monocytes % 14.2 %; Neutrophils # 2.6 10^3/uL (1.8-7.7); Neutrophils % 44.2 %; Nucleated Red Blood Cells % 0 %; Platelet Count 172 10^3/cmm (130-400); Red Blood Count 4.65 10^6/uL (4.1-5.3); Red Cell Distribution Width 12.4 % (12.1-15.1); White Blood Count 5.9 10^3/uL (4.0-10.0)
[2019-12-10 20:43] LABS: Alanine Aminotransferase 17 U/L (0-41); Albumin Level 4.3 g/dL (3.5-5.2); Alkaline Phosphatase 84 IU/L (40-130); Anion Gap 19.5 (5-19); Aspartate Amino Transferase 24 U/L (0-40); Blood Urea Nitrogen 8 mg/dL (6-20); Calcium 7.8 mg/dL (8.5-10.5); Carbon Dioxide 20 mmol/L (22-29); Chloride 101 mmol/L (98-107); Globulin 2.5 g/dL (1.3-4.6); Glomerular Filtration Rate 115.8 mL/min (90-130); Glucose 103 mg/dL (65-115); Lipase 66 U/L (13-60); Osmolality Calculated 280 mOsm/kg (285-295); Potassium 3.5 mmol/L (3.5-5.1); Sodium 137 mmol/L (136-145); Total Bilirubin 0.4 mg/dL (0.15-1.2); Total Protein 6.8 g/dL (6.6-8.7)
[2019-12-10 20:45] LABS: Alcohol Level 188 mg/dL (0-10); Troponin(5th) Baseline 19 ng/mL (0-15)
--- NOTE | 2019-12-10 22:10 | ECG_ITS ---
Measurements Intervals [place] Rate: 92 P: 54 ND: 174 QRS: 22 QRSD: 106 T: 59 QT: 392 QTc: 486 SINUS RHYTHM Compared to ECG 09/01/2019 06:51:38 Sinus tachycardia no longer present Electronically Signed On 12-12-2019 18:44:02 CDT by Lisa Agustin M.D. [email or web address]
[2019-12-10 23:38] LABS: Troponin 5 2HR 16.48 ng/mL (0-15)
[2019-12-10 23:41] LABS: Troponin 5 2HR Delta -2.52 ABS# (0-10)
== END 2019-12-11 00:13 | disposition home or self-care (01) ==
PROVIDERS: Emergency Provider Emergency Medicine
DX: R07.89 Other chest pain (principal); Z79.01 Long term (current) use of anticoagulants; I48.91 Unspecified atrial fibrillation; B20 Human immunodeficiency virus [HIV] disease; Z85.72 Personal history of non-Hodgkin lymphomas; F17.210 Nicotine dependence, cigarettes, uncomplicated; Z79.899 Other long term (current) drug therapy
CPT/HCPCS: 12345; 36415; 71045; 80053; 80307; 83690; 84484; 85025; 93005; 96361; 96374; 96375; 96376; 99283; 99284; J2060; J2270; J7030

== ENCOUNTER 2019-12-11 15:38 | Emergency (ER) | payer MEDICARE, MEDICAID, SELFPAY ==
[2019-12-11 15:39] VITALS: BP 137/85; PULSE 130; RESP 20; TEMP 36.8; O2SAT 90
--- NOTE | 2019-12-11 15:51 | ECG_ITS ---
Measurements Intervals [place] Rate: 111 P: 47 AL: 180 QRS: 30 QRSD: 91 T: 61 QT: 377 QTc: 513 SINUS TACHYCARDIA WITH OCCASIONAL VENTRICULAR PREMATURE COMPLEXES Compared to ECG 09/01/2019 06:51:38 Ventricular premature complex(es) now present Electronically Signed On 12-12-2019 18:10:50 CDT by Lisa Agustin M.D. [email or web address]
--- NOTE | 2019-12-11 15:53 | W.ED.GIBLEED ---
Documented by User: Glenn Dan DO 12/16/19 14:30 HPI - GI Bleed General: Chief complaint: GI Bleed Stated complaint: RECTAL BLEEDING Time Seen by Provider: 12/11/19 15:41 History of Present Illness: HPI Narrative: 59-year-old male comes in complaining of rectal bleeding he is not had this ever previously. Is been going on for the last day he was seen last night with a complaint of chest pain. He also said he had not drank in the last 2 days. He had 2 troponins with a negative delta. His blood alcohol was 188 at the time. He returns today's and is repeatedly requesting from both EMS and from myself and I came in the room that he had to have Ativan immediately. 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 Is also complaining of a little bit of chest pain was persistent from last night. EMS tells me they were called to this home last evening and he said he had been drinking rubbing alcohol but he refused to be seen. Isopropyl alcohol Associated symptoms: Denies abdominal pain, chills, fever(s), malaise, nausea, rash or vomiting Review of Systems Const: Denies: fever(s), chills, body aches, change in appetite, fatigue or malaise ENMT: Denies: throat pain, ear or mastoid pain, nasal discharge or nasal congestion Card: Denies: chest pain, edema, dyspnea on exertion or orthopnea Resp: Denies: dyspnea, productive cough or non-productive cough GI: Denies: abdominal pain, nausea, vomiting, hematemesis, coffee ground emesis, diarrhea, constipation, bloating, hematochezia or melena : Denies: flank pain, dysuria, urinary frequency or urinary urgency Skin/Breast: Denies: rash or pruritus PFSH ED PFSH: Medical History Atrial fibrillation Colon polyps Diverticulitis HIV (human immunodeficiency virus infection) Hypogonadism Liver tumor Lymphoma Meningitis Orchialgia Pulmonary embolism Surgical History H/O colonoscopy H/O hemorrhoidectomy History of orchiectomy, unilateral Family History Other No pertinent family history Social History Smoking and tobacco status: current every day smoker Alcohol intake: current Household members: family Housing: House Physical Exam Const: COMMON NORMALS: no acute distress GENERAL APPEARANCE: cooperative, comfortable and lethargic (Acutely intoxicated smells strongly of alcohol) ORIENTATION/CONSCIOUSNESS: Yes lethargic (Acutely intoxicated smells strongly of alcohol) HENMT: COMMON NORMALS: normocephalic, atraumatic, hearing grossly normal bilaterally, external ears normal, EAC's normal, TM's normal bilaterally, Normal nasal mucous membranes and turbinates present, moist oral mucous membranes and oropharynx normal HEAD & SCALP: normocephalic and atraumatic NOSE: Normal nasal mucous membranes and turbinates present EXTERNAL EAR: Yes external ears normal EXTERNAL AUDITORY CANAL: EAC's normal TYMPANIC MEMBRANE: TM's normal bilaterally Eye: COMMON NORMALS: Equal, round and reactive pupils present, EOMs intact bilaterally, conjunctivae normal and no scleral icterus CONJUNCTIVA: Yes conjunctivae normal PUPIL: Yes Equal, round and reactive pupils present Neck/C-Spine: COMMON NORMALS: full ROM, no lymphadenopathy, supple and no JVD Lymph: LYMPHATIC: no lymphadenopathy noted and no lymphedema noted Resp: COMMON NORMALS: normal respiratory effort, No retractions, No use of accessory muscles and clear to auscultation bilaterally AUSCULTATION: clear to auscultation bilaterally Cardio: COMMON NORMALS: no JVD, regular rate, regular rhythm and No murmurs present (Cardio) RATE: regular rate RHYTHM: regular rhythm GI: COMMON NORMALS: Soft to palpation and No hepatosplenomegaly present AUSCULTATION: Yes normoactive bowel sounds PALPATION: Yes Soft to palpation, No Tenderness to palpation present (GI), No Guarding due to palpation present (GI) and Yes No hepatosplenomegaly present Extremity: COMMON NORMALS: normal to inspection, capillary refill normal, no clubbing, cyanosis or edema, no calf tenderness and no pedal edema Neuro: SENSORIUM/ORIENTATION: Yes lethargic (Acutely intoxicated smells strongly of alcohol) Skin: COMMON NORMALS: no rashes or lesions noted GENERAL SKIN EXAM: no rashes or lesions noted Course Vital Signs: Vital signs: Vital Signs Temperature 98.3 F 12/11/19 15:39 Pulse Rate 105 H 12/11/19 18:15 Respiratory Rate 20 H 12/11/19 15:39 Blood Pressure 174/110 12/11/19 18:15 Pulse Oximetry 95 12/11/19 18:15 MDM - GI Bleed MDM Narrative: Medical decision making narrative: Care transferred to Dr. Virgen at change of shift. Please see his notes for further course of care, course of care and disposition.. Lab Data: Labs: Lab Results 12/11/19 12/11/19 12/11/19 Range/Units 15:58 16:00 16:00 WBC 8.1 (4.0-10.0) 10^3/ uL RBC 4.50 (4.1-5.3) 10^6/u L Hgb 15.2 (11.7-16.6) g/dL Hct 43.8 (42.0-52.0) % MCV 97.3 H (80-94) fL MCH 33.8 (28.0-34.0) pg MCHC 34.7 (30.0-36.0) g/dL RDW 12.1 (12.1-15.1) % Plt Count 166 (130-400) 10^3/c mm MPV 8.8 (7.4-10.4) fL Neut % (Auto) 61.1 % Lymph % (Auto) 28.8 % [place] % (Auto) 8.8 % Eos % (Auto) 0.4 % Baso % (Auto) 0.7 % Neut # (Auto) 5.0 (1.8-7.7) 10^3/u L Lymph # (Auto) 2.3 (0.8-4.8) 10^3/u L [place] # (Auto) 0.7 (0.2-0.9) 10^3/u L Eos # (Auto) 0.0 (0.0-0.8) 10^3/u L Baso # (Auto) 0.1 (0.0-0.1) 10^3/u L Nucleated RBC % (a uto) 0 % Nucleated RBCs # 0.0 /100WBC PT 13.30 (10.5-13.3) SECO NDS INR 0.98 (0.8-1.2) APTT 27.3 (23.9-36.7) SECO NDS Specimen Type Arterial Sample Site Radial, left ABG pH 7.45 (7.35-7.45) ABG pCO2 32.0 L (35-45) mmHg ABG pO2 50.7 L (80.0-100.0) mmH g ABG HCO3 21.9 L (22-26) mmol/L ABG O2 Saturation 90.4 ABG Base Excess -1.2 (-2.0-2.0) mmol/ L Jean-Paul Test Pos A-a O2 Gradient 161.1 H (5-10) mmHg Hematocrit 46.2 (42-52) % Hgb O2 Saturation 82.3 L (95-100) % Carboxyhemoglobin 8.3 (0.4-20.1) %THgb Methemoglobin 0.8 (0.4-1.5) % Total Hemoglobin 15.1 (14-18) g/dL Sodium 137.0 (131-143) mmol/L Potassium 3.2 L (3.5-5.0) mmol/L Glucose 89.0 (70-115) mg/dL Ionized Calcium 1.1 (1.1-1.4) mmol/L O2 Delivery Device Nc O2 Liters/Min 4.0 % FiO2 36.0 % Director Operating Room ID cak Chloride (98-107) mmol/L Carbon Dioxide (22-29) mmol/L Anion Gap (5-19) BUN (6-20) mg/dL Creatinine (0.7-1.2) mg/dL GFR Calculation (90-130) mL/min Calculated Osmolal ity (285-295) mOsm/k g Lactate (0.5-2.2) mmol/L Calcium (8.5-10.5) mg/dL Total Bilirubin (0.15-1.2) mg/dL AST (0-40) U/L ALT (0-41) U/L Alkaline Phosphata se (40-130) IU/L Troponin T Baselin e (0-15) ng/mL Troponin T 120 Min [place] band (0-15) ng/mL Delta Troponin T (0-10) ABS# Total Protein (6.6-8.7) g/dL Albumin (3.5-5.2) g/dL Globulin (1.3-4.6) g/dL Lipase (13-60) U/L Urine Color (Yellow) Urine Appearance (CLEAR) Urine pH (5-7) Ur Specific Gravit y (1.005-1.030) Urine Protein (Negative) Urine Glucose (UA) (Normal) Urine Ketones (Negative) Urine Blood (Negative) Urine Nitrate (Negative) Urine Bilirubin (NEGATIVE) Urine Urobilinogen (Negative) mg/dL Ur Leukocyte Dayna ase (Negative) Salicylates (3-10) mg/dL Urine Opiates Scre en (Negative) ng/mL Acetaminophen (10-30) ug/mL Ur Barbiturates Sc reen (Negative) ng/mL Ur Phencyclidine S crn (Negative) ng/mL Ur Amphetamines Sc reen (Negative) ng/mL U Benzodiazepines Scrn (Negative) ng/mL Urine Cocaine Scre en (Negative) ng/mL U Marijuana (THC) Screen (Negative) ng/mL Ethyl Alcohol (0-10) mg/dL Serum Ketones (Negative) 12/11/19 12/11/19 12/11/19 Range/Units 16:00 16:00 16:00 WBC (4.0-10.0) 10^3/ uL RBC (4.1-5.3) 10^6/u L Hgb (11.7-16.6) g/dL Hct (42.0-52.0) % MCV (80-94) fL MCH (28.0-34.0) pg MCHC (30.0-36.0) g/dL RDW (12.1-15.1) % Plt Count (130-400) 10^3/c mm MPV (7.4-10.4) fL Neut % (Auto) % Lymph % (Auto) % [place] % (Auto) % Eos % (Auto) % Baso % (Auto) % Neut # (Auto) (1.8-7.7) 10^3/u L Lymph # (Auto) (0.8-4.8) 10^3/u L [place] # (Auto) (0.2-0.9) 10^3/u L Eos # (Auto) (0.0-0.8) 10^3/u L Baso # (Auto) (0.0-0.1) 10^3/u L Nucleated RBC % (a uto) % Nucleated RBCs # /100WBC PT (10.5-13.3) SECO NDS INR (0.8-1.2) APTT (23.9-36.7) SECO NDS Specimen Type Sample Site ABG pH (7.35-7.45) ABG pCO2 (35-45) mmHg ABG pO2 (80.0-100.0) mmH g ABG HCO3 (22-26) mmol/L ABG O2 Saturation ABG Base Excess (-2.0-2.0) mmol/ L Jean-Paul Test A-a O2 Gradient (5-10) mmHg Hematocrit (42-52) % Hgb O2 Saturation (95-100) % Carboxyhemoglobin (0.4-20.1) %THgb Methemoglobin (0.4-1.5) % Total Hemoglobin (14-18) g/dL Sodium 137 (131-143) mmol/L Potassium 3.7 (3.5-5.0) mmol/L Glucose 99 (70-115) mg/dL Ionized Calcium (1.1-1.4) mmol/L O2 Delivery Device O2 Liters/Min % FiO2 % Director Operating Room ID Chloride 98 (98-107) mmol/L Carbon Dioxide 23 (22-29) mmol/L Anion Gap 19.7 H (5-19) BUN 6 (6-20) mg/dL Creatinine 0.7 (0.7-1.2) mg/dL GFR Calculation 115.8 (90-130) mL/min Calculated Osmolal ity 280 L (285-295) mOsm/k g Lactate (0.5-2.2) mmol/L Calcium 8.2 L (8.5-10.5) mg/dL Total Bilirubin 0.6 (0.15-1.2) mg/dL AST 25 (0-40) U/L ALT 16 (0-41) U/L Alkaline Phosphata se 88 (40-130) IU/L Troponin T Baselin e 17 H (0-15) ng/mL Troponin T 120 Min [place] band (0-15) ng/mL Delta Troponin T (0-10) ABS# Total Protein 6.7 (6.6-8.7) g/dL Albumin 4.5 (3.5-5.2) g/dL Globulin 2.2 (1.3-4.6) g/dL Lipase 26 (13-60) U/L Urine Color (Yellow) Urine Appearance (CLEAR) Urine pH (5-7) Ur Specific Gravit y (1.005-1.030) Urine Protein (Negative) Urine Glucose (UA) (Normal) Urine Ketones (Negative) Urine Blood (Negative) Urine Nitrate (Negative) Urine Bilirubin (NEGATIVE) Urine Urobilinogen (Negative) mg/dL Ur Leukocyte Dayna ase (Negative) Salicylates < 0.3 L (3-10) mg/dL Urine Opiates Scre en (Negative) ng/mL Acetaminophen < 5.0 L (10-30) ug/mL Ur Barbiturates Sc reen (Negative) ng/mL Ur Phencyclidine S crn (Negative) ng/mL Ur Amphetamines Sc reen (Negative) ng/mL U Benzodiazepines Scrn (Negative) ng/mL Urine Cocaine Scre en (Negative) ng/mL U Marijuana (THC) Screen (Negative) ng/mL Ethyl Alcohol 99 H (0-10) mg/dL Serum Ketones Negative (Negative) 12/11/19 12/11/19 12/11/19 Range/Units 16:20 16:20 16:36 WBC (4.0-10.0) 10^3/ uL RBC (4.1-5.3) 10^6/u L Hgb (11.7-16.6) g/dL Hct (42.0-52.0) % MCV (80-94) fL MCH (28.0-34.0) pg MCHC (30.0-36.0) g/dL RDW (12.1-15.1) % Plt Count (130-400) 10^3/c mm MPV (7.4-10.4) fL Neut % (Auto) % Lymph % (Auto) % [place] % (Auto) % Eos % (Auto) % Baso % (Auto) % Neut # (Auto) (1.8-7.7) 10^3/u L Lymph # (Auto) (0.8-4.8) 10^3/u L [place] # (Auto) (0.2-0.9) 10^3/u L Eos # (Auto) (0.0-0.8) 10^3/u L Baso # (Auto) (0.0-0.1) 10^3/u L Nucleated RBC % (a uto) % Nucleated RBCs # /100WBC PT (10.5-13.3) SECO NDS INR (0.8-1.2) APTT (23.9-36.7) SECO NDS Specimen Type Sample Site ABG pH (7.35-7.45) ABG pCO2 (35-45) mmHg ABG pO2 (80.0-100.0) mmH g ABG HCO3 (22-26) mmol/L ABG O2 Saturation ABG Base Excess (-2.0-2.0) mmol/ L Jean-Paul Test A-a O2 Gradient (5-10) mmHg Hematocrit (42-52) % Hgb O2 Saturation (95-100) % Carboxyhemoglobin (0.4-20.1) %THgb Methemoglobin (0.4-1.5) % Total Hemoglobin (14-18) g/dL Sodium (131-143) mmol/L Potassium (3.5-5.0) mmol/L Glucose (70-115) mg/dL Ionized Calcium (1.1-1.4) mmol/L O2 Delivery Device O2 Liters/Min % FiO2 % Director Operating Room ID Chloride (98-107) mmol/L Carbon Dioxide (22-29) mmol/L Anion Gap (5-19) BUN (6-20) mg/dL Creatinine (0.7-1.2) mg/dL GFR Calculation (90-130) mL/min Calculated Osmolal ity (285-295) mOsm/k g Lactate 3.5 H (0.5-2.2) mmol/L Calcium (8.5-10.5) mg/dL Total Bilirubin (0.15-1.2) mg/dL AST (0-40) U/L ALT (0-41) U/L Alkaline Phosphata se (40-130) IU/L Troponin T Baselin e (0-15) ng/mL Troponin T 120 Min [place] band (0-15) ng/mL Delta Troponin T (0-10) ABS# Total Protein (6.6-8.7) g/dL Albumin (3.5-5.2) g/dL Globulin (1.3-4.6) g/dL Lipase (13-60) U/L Urine Color Yellow (Yellow) Urine Appearance Clear (CLEAR) Urine pH 5 (5-7) Ur Specific Gravit y 1.010 (1.005-1.030) Urine Protein Neg (Negative) Urine Glucose (UA) Norm (Normal) Urine Ketones Negative (Negative) Urine Blood Neg (Negative) Urine Nitrate Negative (Negative) Urine Bilirubin Neg (NEGATIVE) Urine Urobilinogen Norm (Negative) mg/dL Ur Leukocyte Dayna ase Negative (Negative) Salicylates (3-10) mg/dL Urine Opiates Scre en Negative (Negative) ng/mL Acetaminophen (10-30) ug/mL Ur Barbiturates Sc reen Negative (Negative) ng/mL Ur Phencyclidine S crn Negative (Negative) ng/mL Ur Amphetamines Sc reen Negative (Negative) ng/mL U Benzodiazepines Scrn Negative (Negative) ng/mL Urine Cocaine Scre en Negative (Negative) ng/mL U Marijuana (THC) Screen Negative (Negative) ng/mL Ethyl Alcohol (0-10) mg/dL Serum Ketones (Negative) 12/11/19 Range/Units 17:52 WBC (4.0-10.0) 10^3/ uL RBC (4.1-5.3) 10^6/u L Hgb (11.7-16.6) g/dL Hct (42.0-52.0) % MCV (80-94) fL MCH (28.0-34.0) pg MCHC (30.0-36.0) g/dL RDW (12.1-15.1) % Plt Count (130-400) 10^3/c mm MPV (7.4-10.4) fL Neut % (Auto) % Lymph % (Auto) % [place] % (Auto) % Eos % (Auto) % Baso % (Auto) % Neut # (Auto) (1.8-7.7) 10^3/u L Lymph # (Auto) (0.8-4.8) 10^3/u L [place] # (Auto) (0.2-0.9) 10^3/u L Eos # (Auto) (0.0-0.8) 10^3/u L Baso # (Auto) (0.0-0.1) 10^3/u L Nucleated RBC % (a uto) % Nucleated RBCs # /100WBC PT (10.5-13.3) SECO NDS INR (0.8-1.2) APTT (23.9-36.7) SECO NDS Specimen Type Sample Site ABG pH (7.35-7.45) ABG pCO2 (35-45) mmHg ABG pO2 (80.0-100.0) mmH g ABG HCO3 (22-26) mmol/L ABG O2 Saturation ABG Base Excess (-2.0-2.0) mmol/ L Jean-Paul Test A-a O2 Gradient (5-10) mmHg Hematocrit (42-52) % Hgb O2 Saturation (95-100) % Carboxyhemoglobin (0.4-20.1) %THgb Methemoglobin (0.4-1.5) % Total Hemoglobin (14-18) g/dL Sodium (131-143) mmol/L Potassium (3.5-5.0) mmol/L Glucose (70-115) mg/dL Ionized Calcium (1.1-1.4) mmol/L O2 Delivery Device O2 Liters/Min % FiO2 % Director Operating Room ID Chloride (98-107) mmol/L Carbon Dioxide (22-29) mmol/L Anion Gap (5-19) BUN (6-20) mg/dL Creatinine (0.7-1.2) mg/dL GFR Calculation (90-130) mL/min Calculated Osmolal ity (285-295) mOsm/k g Lactate (0.5-2.2) mmol/L Calcium (8.5-10.5) mg/dL Total Bilirubin (0.15-1.2) mg/dL AST (0-40) U/L ALT (0-41) U/L Alkaline Phosphata se (40-130) IU/L Troponin T Baselin e (0-15) ng/mL Troponin T 120 Min [place] band 14.43 (0-15) ng/mL Delta Troponin T -2.57 L (0-10) ABS# Total Protein (6.6-8.7) g/dL Albumin (3.5-5.2) g/dL Globulin (1.3-4.6) g/dL Lipase (13-60) U/L Urine Color (Yellow) Urine Appearance (CLEAR) Urine pH (5-7) Ur Specific Gravit y (1.005-1.030) Urine Protein (Negative) Urine Glucose (UA) (Normal) Urine Ketones (Negative) Urine Blood (Negative) Urine Nitrate (Negative) Urine Bilirubin (NEGATIVE) Urine Urobilinogen (Negative) mg/dL Ur Leukocyte Dayna ase (Negative) Salicylates (3-10) mg/dL Urine Opiates Scre en (Negative) ng/mL Acetaminophen (10-30) ug/mL Ur Barbiturates Sc reen (Negative) ng/mL Ur Phencyclidine S crn (Negative) ng/mL Ur Amphetamines Sc reen (Negative) ng/mL U Benzodiazepines Scrn (Negative) ng/mL Urine Cocaine Scre en (Negative) ng/mL U Marijuana (THC) Screen (Negative) ng/mL Ethyl Alcohol (0-10) mg/dL Serum Ketones (Negative) Discharge Plan Discharge Patient Disposition: Home, Self-Care Clinical Impression: Alcohol intoxication Qualifiers: Complication of substance-induced condition: uncomplicated Qualified Code(s): F10.920 - Alcohol use, unspecified with intoxication, uncomplicated Condition: Stable Prescriptions: No Action potassium chloride [Klor-Con M20] 20 mEq tablet,ER particles/crystals 20 meq PO BID RF: 0 fluconazole [Diflucan] 100 mg tablet 100 mg PO DAILY RF: 0 sildenafil (pulm.hypertension) 20 mg tablet 20 mg PO TID RF: 0 pantoprazole 40 mg tablet,delayed release (DR/EC) 40 mg PO QAM RF: 0 diltiazem HCl [Cartia XT] 240 mg capsule,extended release 24hr 240 mg PO DAILY Qty: 90 RF: 3 fentanyl 50 mcg/hr Patch 72 Hour 1 patch TRANSDERMAL Q72H RF: 0 Eliquis 5 mg Tablet 5 mg PO BID RF: 0 Opsumit 10 mg tablet 10 mg PO DAILY RF: 0 mirtazapine [Remeron] 15 mg tablet 15 mg PO BEDTIME RF: 0 Dovato 50-300 mg tablet 50 - 300 tab PO DAILY RF: 0 multivitamin [Multiple Vitamins] Tablet 1 tab PO DAILY RF: 0 trazodone 150 mg Tablet 300 mg PO BEDTIME RF: 0 albuterol sulfate [Ventolin HFA] 90 mcg/actuation Hfa Aerosol Inhaler 2 puff INHALATION 6XD PRN (Reason: Shortness Of Breath) RF: 0 testosterone 1.62 % (40.5 mg/2.5 gram) Gel In Packet See Rx Instructions .ROUTE .COMPLEX RF: 0 (DME) Compact Compressor Nebulizer Misc See Rx Instructions .ROUTE .MEDSUPPLY Qty: 1 RF: 0 Bactrim DS 800-160 mg Tablet See Rx Instructions .ROUTE .COMPLEX RF: 0 Xanax 0.25 mg Tablet 0.25 mg PO TID RF: 0 bupropion HCl 150 mg tablet extended release 24 hr 150 mg PO DAILY RF: 0 Symbicort 80-4.5 mcg/actuation HFA aerosol inhaler 2 puff INHALATION BID RF: 0 albuterol sulfate 2.5 mg /3 mL (0.083 %) solution for nebulization 2.5 mg INHALATION Q4-5H PRN (Reason: unknown) RF: 0 Discharge Orders: Discharge Order (Routine); Ordered 12/11/19 Ordered By: Fanny Virgen Discharge Diet: Advance as tolerated Discharge Activity: Resume usual activity Patient Instructions: Alcohol Intoxication (ED) Discharge Date/Time: 12/11/19 18:36 Coding Level of Care Code ED 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 for Chg Fwd Exam Comprehensive Documented by User: Fanny Virgen MD 12/11/19 18:52 HPI - GI Bleed General: Chief complaint: GI Bleed Stated complaint: RECTAL BLEEDING Time Seen by Provider: 12/11/19 15:41 PFS ED PFSH: Medical History Atrial fibrillation Colon polyps Diverticulitis HIV (human immunodeficiency virus infection) Hypogonadism Liver tumor Lymphoma Meningitis Orchialgia Pulmonary embolism Surgical History H/O colonoscopy H/O hemorrhoidectomy History of orchiectomy, unilateral Family History Other No pertinent family history Social History Smoking and tobacco status: current every day smoker Alcohol intake: current Household members: family Housing: House Course Vital Signs: Vital signs: Vital Signs Temperature 98.3 F 12/11/19 15:39 Pulse Rate 105 H 12/11/19 18:15 Respiratory Rate 20 H 12/11/19 15:39 Blood Pressure 174/110 12/11/19 18:15 Pulse Oximetry 95 12/11/19 18:15 MDM - GI Bleed MDM Narrative: Medical decision making narrative: Patient presents here with alcohol intoxication. Patient is demanding to leave currently. Was any give him IV fluids and recheck his lactate but he states he feels improved and wants to go home. Patient discharged is to follow-up with primary care doctor in 3 to 5 days and return if worsening. Lab Data: Labs: Lab Results 12/11/19 12/11/19 12/11/19 Range/Units 15:58 16:00 16:00 WBC 8.1 (4.0-10.0) 10^3/ uL RBC 4.50 (4.1-5.3) 10^6/u L Hgb 15.2 (11.7-16.6) g/dL Hct 43.8 (42.0-52.0) % MCV 97.3 H (80-94) fL MCH 33.8 (28.0-34.0) pg MCHC 34.7 (30.0-36.0) g/dL RDW 12.1 (12.1-15.1) % Plt Count 166 (130-400) 10^3/c mm MPV 8.8 (7.4-10.4) fL Neut % (Auto) 61.1 % Lymph % (Auto) 28.8 % [place] % (Auto) 8.8 % Eos % (Auto) 0.4 % Baso % (Auto) 0.7 % Neut # (Auto) 5.0 (1.8-7.7) 10^3/u L Lymph # (Auto) 2.3 (0.8-4.8) 10^3/u L [place] # (Auto) 0.7 (0.2-0.9) 10^3/u L Eos # (Auto) 0.0 (0.0-0.8) 10^3/u L Baso # (Auto) 0.1 (0.0-0.1) 10^3/u L Nucleated RBC % (a uto) 0 % Nucleated RBCs # 0.0 /100WBC PT 13.30 (10.5-13.3) SECO NDS INR 0.98 (0.8-1.2) APTT 27.3 (23.9-36.7) SECO NDS Specimen Type Arterial Sample Site Radial, left ABG pH 7.45 (7.35-7.45) ABG pCO2 32.0 L (35-45) mmHg ABG pO2 50.7 L (80.0-100.0) mmH g ABG HCO3 21.9 L (22-26) mmol/L ABG O2 Saturation 90.4 ABG Base Excess -1.2 (-2.0-2.0) mmol/ L Jean-Paul Test Pos A-a O2 Gradient 161.1 H (5-10) mmHg Hematocrit 46.2 (42-52) % Hgb O2 Saturation 82.3 L (95-100) % Carboxyhemoglobin 8.3 (0.4-20.1) %THgb Methemoglobin 0.8 (0.4-1.5) % Total Hemoglobin 15.1 (14-18) g/dL Sodium 137.0 (131-143) mmol/L Potassium 3.2 L (3.5-5.0) mmol/L Glucose 89.0 (70-115) mg/dL Ionized Calcium 1.1 (1.1-1.4) mmol/L O2 Delivery Device Nc O2 Liters/Min 4.0 % FiO2 36.0 % Director Operating Room ID cak Chloride (98-107) mmol/L Carbon Dioxide (22-29) mmol/L Anion Gap (5-19) BUN (6-20) mg/dL Creatinine (0.7-1.2) mg/dL GFR Calculation (90-130) mL/min Calculated Osmolal ity (285-295) mOsm/k g Lactate (0.5-2.2) mmol/L Calcium (8.5-10.5) mg/dL Total Bilirubin (0.15-1.2) mg/dL AST (0-40) U/L ALT (0-41) U/L Alkaline Phosphata se (40-130) IU/L Troponin T Baselin e (0-15) ng/mL Troponin T 120 Min [place] band (0-15) ng/mL Delta Troponin T (0-10) ABS# Total Protein (6.6-8.7) g/dL Albumin (3.5-5.2) g/dL Globulin (1.3-4.6) g/dL Lipase (13-60) U/L Urine Color (Yellow) Urine Appearance (CLEAR) Urine pH (5-7) Ur Specific Gravit y (1.005-1.030) Urine Protein (Negative) Urine Glucose (UA) (Normal) Urine Ketones (Negative) Urine Blood (Negative) Urine Nitrate (Negative) Urine Bilirubin (NEGATIVE) Urine Urobilinogen (Negative) mg/dL Ur Leukocyte Dayna ase (Negative) Salicylates (3-10) mg/dL Urine Opiates Scre en (Negative) ng/mL Acetaminophen (10-30) ug/mL Ur Barbiturates Sc reen (Negative) ng/mL Ur Phencyclidine S crn (Negative) ng/mL Ur Amphetamines Sc reen (Negative) ng/mL U Benzodiazepines Scrn (Negative) ng/mL Urine Cocaine Scre en (Negative) ng/mL U Marijuana (THC) Screen (Negative) ng/mL Ethyl Alcohol (0-10) mg/dL Serum Ketones (Negative) 12/11/19 12/11/19 12/11/19 Range/Units 16:00 16:00 16:00 WBC (4.0-10.0) 10^3/ uL RBC (4.1-5.3) 10^6/u L Hgb (11.7-16.6) g/dL Hct (42.0-52.0) % MCV (80-94) fL MCH (28.0-34.0) pg MCHC (30.0-36.0) g/dL RDW (12.1-15.1) % Plt Count (130-400) 10^3/c mm MPV (7.4-10.4) fL Neut % (Auto) % Lymph % (Auto) % [place] % (Auto) % Eos % (Auto) % Baso % (Auto) % Neut # (Auto) (1.8-7.7) 10^3/u L Lymph # (Auto) (0.8-4.8) 10^3/u L [place] # (Auto) (0.2-0.9) 10^3/u L Eos # (Auto) (0.0-0.8) 10^3/u L Baso # (Auto) (0.0-0.1) 10^3/u L Nucleated RBC % (a uto) % Nucleated RBCs # /100WBC PT (10.5-13.3) SECO NDS INR (0.8-1.2) APTT (23.9-36.7) SECO NDS Specimen Type Sample Site ABG pH (7.35-7.45) ABG pCO2 (35-45) mmHg ABG pO2 (80.0-100.0) mmH g ABG HCO3 (22-26) mmol/L ABG O2 Saturation ABG Base Excess (-2.0-2.0) mmol/ L [place] Test A-a O2 Gradient (5-10) mmHg Hematocrit (42-52) % Hgb O2 Saturation (95-100) % Carboxyhemoglobin (0.4-20.1) %THgb Methemoglobin (0.4-1.5) % Total Hemoglobin (14-18) g/dL Sodium 137 (131-143) mmol/L Potassium 3.7 (3.5-5.0) mmol/L Glucose 99 (70-115) mg/dL Ionized Calcium (1.1-1.4) mmol/L O2 Delivery Device O2 Liters/Min % FiO2 % Director Operating Room ID Chloride 98 (98-107) mmol/L Carbon Dioxide 23 (22-29) mmol/L Anion Gap 19.7 H (5-19) BUN 6 (6-20) mg/dL Creatinine 0.7 (0.7-1.2) mg/dL GFR Calculation 115.8 (90-130) mL/min Calculated Osmolal ity 280 L (285-295) mOsm/k g Lactate (0.5-2.2) mmol/L Calcium 8.2 L (8.5-10.5) mg/dL Total Bilirubin 0.6 (0.15-1.2) mg/dL AST 25 (0-40) U/L ALT 16 (0-41) U/L Alkaline Phosphata se 88 (40-130) IU/L Troponin T Baselin e 17 H (0-15) ng/mL Troponin T 120 Min [place] band (0-15) ng/mL Delta Troponin T (0-10) ABS# Total Protein 6.7 (6.6-8.7) g/dL Albumin 4.5 (3.5-5.2) g/dL Globulin 2.2 (1.3-4.6) g/dL Lipase 26 (13-60) U/L Urine Color (Yellow) Urine Appearance (CLEAR) Urine pH (5-7) Ur Specific Gravit y (1.005-1.030) Urine Protein (Negative) Urine Glucose (UA) (Normal) Urine Ketones (Negative) Urine Blood (Negative) Urine Nitrate (Negative) Urine Bilirubin (NEGATIVE) Urine Urobilinogen (Negative) mg/dL Ur Leukocyte Dayna ase (Negative) Salicylates < 0.3 L (3-10) mg/dL Urine Opiates Scre en (Negative) ng/mL Acetaminophen < 5.0 L (10-30) ug/mL Ur Barbiturates Sc reen (Negative) ng/mL Ur Phencyclidine S crn (Negative) ng/mL Ur Amphetamines Sc reen (Negative) ng/mL U Benzodiazepines Scrn (Negative) ng/mL Urine Cocaine Scre en (Negative) ng/mL U Marijuana (THC) Screen (Negative) ng/mL Ethyl Alcohol 99 H (0-10) mg/dL Serum Ketones Negative (Negative) 12/11/19 12/11/19 12/11/19 Range/Units 16:20 16:20 16:36 WBC (4.0-10.0) 10^3/ uL RBC (4.1-5.3) 10^6/u L Hgb (11.7-16.6) g/dL Hct (42.0-52.0) % MCV (80-94) fL MCH (28.0-34.0) pg MCHC (30.0-36.0) g/dL RDW (12.1-15.1) % Plt Count (130-400) 10^3/c mm MPV (7.4-10.4) fL Neut % (Auto) % Lymph % (Auto) % [place] % (Auto) % Eos % (Auto) % Baso % (Auto) % Neut # (Auto) (1.8-7.7) 10^3/u L Lymph # (Auto) (0.8-4.8) 10^3/u L [place] # (Auto) (0.2-0.9) 10^3/u L Eos # (Auto) (0.0-0.8) 10^3/u L Baso # (Auto) (0.0-0.1) 10^3/u L Nucleated RBC % (a uto) % Nucleated RBCs # /100WBC PT (10.5-13.3) SECO NDS INR (0.8-1.2) APTT (23.9-36.7) SECO NDS Specimen Type Sample Site ABG pH (7.35-7.45) ABG pCO2 (35-45) mmHg ABG pO2 (80.0-100.0) mmH g ABG HCO3 (22-26) mmol/L ABG O2 Saturation ABG Base Excess (-2.0-2.0) mmol/ L Jean-Paul Test A-a O2 Gradient (5-10) mmHg Hematocrit (42-52) % Hgb O2 Saturation (95-100) % Carboxyhemoglobin (0.4-20.1) %THgb Methemoglobin (0.4-1.5) % Total Hemoglobin (14-18) g/dL Sodium (131-143) mmol/L Potassium (3.5-5.0) mmol/L Glucose (70-115) mg/dL Ionized Calcium (1.1-1.4) mmol/L O2 Delivery Device O2 Liters/Min % FiO2 % Director Operating Room ID Chloride (98-107) mmol/L Carbon Dioxide (22-29) mmol/L Anion Gap (5-19) BUN (6-20) mg/dL Creatinine (0.7-1.2) mg/dL GFR Calculation (90-130) mL/min Calculated Osmolal ity (285-295) mOsm/k g Lactate 3.5 H (0.5-2.2) mmol/L Calcium (8.5-10.5) mg/dL Total Bilirubin (0.15-1.2) mg/dL AST (0-40) U/L ALT (0-41) U/L Alkaline Phosphata se (40-130) IU/L Troponin T Baselin e (0-15) ng/mL Troponin T 120 Min [place] band (0-15) ng/mL Delta Troponin T (0-10) ABS# Total Protein (6.6-8.7) g/dL Albumin (3.5-5.2) g/dL Globulin (1.3-4.6) g/dL Lipase (13-60) U/L Urine Color Yellow (Yellow) Urine Appearance Clear (CLEAR) Urine pH 5 (5-7) Ur Specific Gravit y 1.010 (1.005-1.030) Urine Protein Neg (Negative) Urine Glucose (UA) Norm (Normal) Urine Ketones Negative (Negative) Urine Blood Neg (Negative) Urine Nitrate Negative (Negative) Urine Bilirubin Neg (NEGATIVE) Urine Urobilinogen Norm (Negative) mg/dL Ur Leukocyte Dayna ase Negative (Negative) Salicylates (3-10) mg/dL Urine Opiates Scre en Negative (Negative) ng/mL Acetaminophen (10-30) ug/mL Ur Barbiturates Sc reen Negative (Negative) ng/mL Ur Phencyclidine S crn Negative (Negative) ng/mL Ur Amphetamines Sc reen Negative (Negative) ng/mL U Benzodiazepines Scrn Negative (Negative) ng/mL Urine Cocaine Scre en Negative (Negative) ng/mL U Marijuana (THC) Screen Negative (Negative) ng/mL Ethyl Alcohol (0-10) mg/dL Serum Ketones (Negative) 12/11/19 Range/Units 17:52 WBC (4.0-10.0) 10^3/ uL RBC (4.1-5.3) 10^6/u L Hgb (11.7-16.6) g/dL Hct (42.0-52.0) % MCV (80-94) fL MCH (28.0-34.0) pg MCHC (30.0-36.0) g/dL RDW (12.1-15.1) % Plt Count (130-400) 10^3/c mm MPV (7.4-10.4) fL Neut % (Auto) % Lymph % (Auto) % [place] % (Auto) % Eos % (Auto) % Baso % (Auto) % Neut # (Auto) (1.8-7.7) 10^3/u L Lymph # (Auto) (0.8-4.8) 10^3/u L [place] # (Auto) (0.2-0.9) 10^3/u L Eos # (Auto) (0.0-0.8) 10^3/u L Baso # (Auto) (0.0-0.1) 10^3/u L Nucleated RBC % (a uto) % Nucleated RBCs # /100WBC PT (10.5-13.3) SECO NDS INR (0.8-1.2) APTT (23.9-36.7) SECO NDS Specimen Type Sample Site ABG pH (7.35-7.45) ABG pCO2 (35-45) mmHg ABG pO2 (80.0-100.0) mmH g ABG HCO3 (22-26) mmol/L ABG O2 Saturation ABG Base Excess (-2.0-2.0) mmol/ L Jean-Paul Test A-a O2 Gradient (5-10) mmHg Hematocrit (42-52) % Hgb O2 Saturation (95-100) % Carboxyhemoglobin (0.4-20.1) %THgb Methemoglobin (0.4-1.5) % Total Hemoglobin (14-18) g/dL Sodium (131-143) mmol/L Potassium (3.5-5.0) mmol/L Glucose (70-115) mg/dL Ionized Calcium (1.1-1.4) mmol/L O2 Delivery Device O2 Liters/Min % FiO2 % Director Operating Room ID Chloride (98-107) mmol/L Carbon Dioxide (22-29) mmol/L Anion Gap (5-19) BUN (6-20) mg/dL Creatinine (0.7-1.2) mg/dL GFR Calculation (90-130) mL/min Calculated Osmolal ity (285-295) mOsm/k g Lactate (0.5-2.2) mmol/L Calcium (8.5-10.5) mg/dL Total Bilirubin (0.15-1.2) mg/dL AST (0-40) U/L ALT (0-41) U/L Alkaline Phosphata se (40-130) IU/L Troponin T Baselin e (0-15) ng/mL Troponin T 120 Min [place] band 14.43 (0-15) ng/mL Delta Troponin T -2.57 L (0-10) ABS# Total Protein (6.6-8.7) g/dL Albumin (3.5-5.2) g/dL Globulin (1.3-4.6) g/dL Lipase (13-60) U/L Urine Color (Yellow) Urine Appearance (CLEAR) Urine pH (5-7) Ur Specific Gravit y (1.005-1.030) Urine Protein (Negative) Urine Glucose (UA) (Normal) Urine Ketones (Negative) Urine Blood (Negative) Urine Nitrate (Negative) Urine Bilirubin (NEGATIVE) Urine Urobilinogen (Negative) mg/dL Ur Leukocyte Dayna ase (Negative) Salicylates (3-10) mg/dL Urine Opiates Scre en (Negative) ng/mL Acetaminophen (10-30) ug/mL Ur Barbiturates Sc reen (Negative) ng/mL Ur Phencyclidine S crn (Negative) ng/mL Ur Amphetamines Sc reen (Negative) ng/mL U Benzodiazepines Scrn (Negative) ng/mL Urine Cocaine Scre en (Negative) ng/mL U Marijuana (THC) Screen (Negative) ng/mL Ethyl Alcohol (0-10) mg/dL Serum Ketones (Negative) EKG Data^: EKG 1: Attestation: I personally reviewed and interpreted this EKG as follows: EKG interpretation date: 12/11/19 EKG interpretation time: 16:14 Interpretation: sinus tach hr [address] or twave abnormalities qrs 91 qtc 443 Discharge Plan Discharge Patient Disposition: Home, Self-Care Clinical Impression: Alcohol intoxication Qualifiers: Complication of substance-induced condition: uncomplicated Qualified Code(s): F10.920 - Alcohol use, unspecified with intoxication, uncomplicated Condition: Stable Prescriptions: No Action potassium chloride [Klor-Con M20] 20 mEq tablet,ER particles/crystals 20 meq PO BID RF: 0 fluconazole [Diflucan] 100 mg tablet 100 mg PO DAILY RF: 0 sildenafil (pulm.hypertension) 20 mg tablet 20 mg PO TID RF: 0 pantoprazole 40 mg tablet,delayed release (DR/EC) 40 mg PO QAM RF: 0 diltiazem HCl [Cartia XT] 240 mg capsule,extended release 24hr 240 mg PO DAILY Qty: 90 RF: 3 fentanyl 50 mcg/hr Patch 72 Hour 1 patch TRANSDERMAL Q72H RF: 0 Eliquis 5 mg Tablet 5 mg PO BID RF: 0 Opsumit 10 mg tablet 10 mg PO DAILY RF: 0 mirtazapine [Remeron] 15 mg tablet 15 mg PO BEDTIME RF: 0 Dovato 50-300 mg tablet 50 - 300 tab PO DAILY RF: 0 multivitamin [Multiple Vitamins] Tablet 1 tab PO DAILY RF: 0 trazodone 150 mg Tablet 300 mg PO BEDTIME RF: 0 albuterol sulfate [Ventolin HFA] 90 mcg/actuation Hfa Aerosol Inhaler 2 puff INHALATION 6XD PRN (Reason: Shortness Of Breath) RF: 0 testosterone 1.62 % (40.5 mg/2.5 gram) Gel In Packet See Rx Instructions .ROUTE .COMPLEX RF: 0 (DME) Compact Compressor Nebulizer Misc See Rx Instructions .ROUTE .MEDSUPPLY Qty: 1 RF: 0 Bactrim DS 800-160 mg Tablet See Rx Instructions .ROUTE .COMPLEX RF: 0 Xanax 0.25 mg Tablet 0.25 mg PO TID RF: 0 bupropion HCl 150 mg tablet extended release 24 hr 150 mg PO DAILY RF: 0 Symbicort 80-4.5 mcg/actuation HFA aerosol inhaler 2 puff INHALATION BID RF: 0 albuterol sulfate 2.5 mg /3 mL (0.083 %) solution for nebulization 2.5 mg INHALATION Q4-5H PRN (Reason: unknown) RF: 0 Discharge Orders: Discharge Order (Routine); Ordered 12/11/19 Ordered By: Fanny Virgen Discharge Diet: Advance as tolerated Discharge Activity: Resume usual activity Patient Instructions: Alcohol Intoxication (ED) Discharge Date/Time: 12/11/19 18:36 Coding Level of Care Code ED 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 for Chg Fwd Exam Comprehensive
[2019-12-11] MEDS: ondansetron 2 mg/ML SDV 2 mL 4 MG IVP (16:06)
[2019-12-11] MEDS: sodium chloride 0.9% 1,000 ML 999 ML IV (16:06)
[2019-12-11 16:09] LABS: ABG PH Result 7.45 (7.35-7.45); Alveolar-Arterial Oxygen Gradi 161.1 mmHg (5-10); Arterial Blood Gas Hematocrit 46.2 % (42-52); Base Excess ABG -1.2 mmol/L (-2.0-2.0); Blood Gas Allen Test Pos; Blood Gas Sample Site Radial, left; Blood Gas Sample Type Arterial; Carboxyhemoglobin 8.3 %THgb (0.4-20.1); HCO3 ABG 21.9 mmol/L (22-26); HGB O2 Sat 82.3 % (95-100); Ionized Calcium Level - ABG 1.1 mmol/L (1.1-1.4); Methemoglobin 0.8 % (0.4-1.5); Oxygen Device NC; Oxygen Saturation ABG 90.4; PO2 ABG 50.7 mmHg (80.0-100.0); Potassium Level - ABG 3.2 mmol/L (3.5-5.0); Total Hemoglobin 15.1 g/dL (14-18)
[2019-12-11 16:13] VITALS: O2SAT 93
[2019-12-11 16:20] LABS: Basophils # 0.1 10^3/uL (0.0-0.1); Basophils % 0.7 %; Eosinophils % 0.4 %; Hematocrit 43.8 % (42.0-52.0); Hemoglobin 15.2 g/dL (11.7-16.6); Lymphocytes # 2.3 10^3/uL (0.8-4.8); Lymphocytes % 28.8 %; Mean Corpuscular HGB Conc 34.7 g/dL (30.0-36.0); Mean Corpuscular Hemoglobin 33.8 pg (28.0-34.0); Mean Corpuscular Volume 97.3 fL (80-94); Mean Platelet Volume 8.8 fL (7.4-10.4); Monocytes # 0.7 10^3/uL (0.2-0.9); Monocytes % 8.8 %; Neutrophils % 61.1 %; Nucleated Red Blood Cells % 0 %; Platelet Count 166 10^3/cmm (130-400); Red Cell Distribution Width 12.1 % (12.1-15.1); White Blood Count 8.1 10^3/uL (4.0-10.0)
[2019-12-11 16:30] LABS: Ketone (Acetest) Serum Negative (Negative)
[2019-12-11 16:44] LABS: Alanine Aminotransferase 16 U/L (0-41); Albumin Level 4.5 g/dL (3.5-5.2); Alcohol Level 99 mg/dL (0-10); Alkaline Phosphatase 88 IU/L (40-130); Anion Gap 19.7 (5-19); Aspartate Amino Transferase 25 U/L (0-40); Blood Urea Nitrogen 6 mg/dL (6-20); Calcium 8.2 mg/dL (8.5-10.5); Carbon Dioxide 23 mmol/L (22-29); Chloride 98 mmol/L (98-107); Globulin 2.2 g/dL (1.3-4.6); Glomerular Filtration Rate 115.8 mL/min (90-130); Glucose 99 mg/dL (65-115); Lipase 26 U/L (13-60); Osmolality Calculated 280 mOsm/kg (285-295); Potassium 3.7 mmol/L (3.5-5.1); Sodium 137 mmol/L (136-145); Total Bilirubin 0.6 mg/dL (0.15-1.2); Total Protein 6.7 g/dL (6.6-8.7)
[2019-12-11 16:48] LABS: Acetaminophen < 5.0 ug/mL (10-30); Salicylate < 0.3 mg/dL (3-10); Troponin(5th) Baseline 17 ng/mL (0-15)
[2019-12-11 16:49] LABS: INR 0.98 (0.8-1.2)
[2019-12-11 16:50] LABS: Partial Thromboplastin Time 27.3 SECONDS (23.9-36.7)
--- NOTE | 2019-12-11 16:52 | PC.NURSE ---
Obey occult test performed test negative
[2019-12-11 16:58] LABS: Lactate (Lactic Acid level) 3.5 mmol/L (0.5-2.2)
[2019-12-11 17:08] VITALS: BP 151/93; PULSE 104; O2SAT 93
[2019-12-11] MEDS: lactated ringers 1,000 ML 999 ML IV (18:13)
[2019-12-11 18:15] VITALS: BP 174/110; PULSE 105; O2SAT 95
[2019-12-11 18:18] LABS: Troponin 5 2HR 14.43 ng/mL (0-15)
[2019-12-11 18:26] LABS: Troponin 5 2HR Delta -2.57 ABS# (0-10)
--- NOTE | 2019-12-11 18:35 | PC.NURSE ---
pt stated he did not want to wait for fluids to complete-he wanted to leave ER immediately. ER physician notified and gave approval.
[2019-12-11 18:42] LABS: Add Urine Microscopic? NO
[2019-12-11 18:46] LABS: Bilirubin Urine Neg (NEGATIVE); Blood Urine Neg (Negative); Glucose Urine UA Norm (Normal); Ketones Urine Negative (Negative); Leukocyte Esterase Urine Negative (Negative); Nitrate Urine Negative (Negative); Protein Urine Neg (Negative); Urine Appearance Clear (CLEAR); Urine Color Yellow (Yellow); Urobilinogen Urine Norm (Negative); pH Urine 5 (5-7)
[2019-12-11 18:52] LABS: Amphetamines Screen Urine Negative (Negative); Barbiturates Screen Urine Negative (Negative); Benzodiazepines Screen Urine Negative (Negative); Cocaine Screen Urine Negative (Negative); Opiate Screen Urine Negative (Negative); PCP Screen Urine Negative (Negative); THC Screen Urine Negative (Negative)
== END 2019-12-11 18:36 | disposition home or self-care (01) ==
PROVIDERS: Family Medicine; Emergency Provider Emergency Medicine
DX: F10.120 Alcohol abuse with intoxication, uncomplicated (principal); Y90.9 Presence of alcohol in blood, level not specified; Z79.01 Long term (current) use of anticoagulants; I48.91 Unspecified atrial fibrillation; B20 Human immunodeficiency virus [HIV] disease; F17.210 Nicotine dependence, cigarettes, uncomplicated; Z79.899 Other long term (current) drug therapy
CPT/HCPCS: 12345; 36415; 36600; 80051; 80053; 80306; 80307; 81003; 82009; 82810; 83605; 83690; 83986; 84484; 85025; 85610; 85730; 93005; 96361; 96365; 96375; 99284; A9270; J2405; J7030

== ENCOUNTER 2019-12-14 22:12 | Inpatient (IN) | payer MEDICARE, MEDICAID, SELFPAY ==
[2019-12-14 22:36] VITALS: BP 110/63; PULSE 84; RESP 18; TEMP 37.1; O2SAT 91; BMI 22.4
--- NOTE | 2019-12-14 22:45 | ECG_ITS ---
Measurements Intervals [place] Rate: 78 P: 44 NV: 210 QRS: 53 QRSD: 89 T: 62 QT: 443 QTc: 507 SINUS RHYTHM WITH FIRST DEGREE AV BLOCK NONSPECIFIC T-WAVE ABNORMALITY PROLONGED QT INTERVAL Compared to ECG 12/11/2019 16:14:17 First degree AV block now present T-wave abnormality now present Prolonged QT interval now present Sinus tachycardia no longer present Ventricular premature complex(es) no longer present Electronically Signed On 12-15-2019 10:30:00 CDT by Cristofer Silvestre MD [email or web address]
[2019-12-14 23:27] LABS: Basophils # 0.1 10^3/uL (0.0-0.1); Eosinophils # 0.2 10^3/uL (0.0-0.8); Eosinophils % 2.5 %; Hematocrit 40.9 % (42.0-52.0); Hemoglobin 13.8 g/dL (11.7-16.6); Lymphocytes # 2.3 10^3/uL (0.8-4.8); Lymphocytes % 38.8 %; Mean Corpuscular HGB Conc 33.7 g/dL (30.0-36.0); Mean Corpuscular Volume 100.7 fL (80-94); Mean Platelet Volume 9.1 fL (7.4-10.4); Monocytes # 0.4 10^3/uL (0.2-0.9); Neutrophils % 50.4 %; Nucleated Red Blood Cells % 0 %; Platelet Count 144 10^3/cmm (130-400); Red Blood Count 4.06 10^6/uL (4.1-5.3); Red Cell Distribution Width 12.7 % (12.1-15.1)
[2019-12-14] MEDS: LORazepam 2 mg/mL INJ 1 mL IM (23:39)
[2019-12-14] MEDS: ziprasidone 20 mg/mL SDV 10 MG IM (23:39)
[2019-12-14 23:40] VITALS: BP 99/53; PULSE 76; RESP 18; O2SAT 87
--- NOTE | 2019-12-14 23:55 | PC.NURSE ---
Pt's 02 level low. MD notified. RT called to provide oxy mask per MD request
[2019-12-14 23:58] LABS: Alanine Aminotransferase 16 U/L (0-41); Albumin Level 3.8 g/dL (3.5-5.2); Alcohol Level 197 mg/dL (0-10); Alkaline Phosphatase 91 IU/L (40-130); Anion Gap 17.7 (5-19); Aspartate Amino Transferase 23 U/L (0-40); Blood Urea Nitrogen 5 mg/dL (6-20); Carbon Dioxide 23 mmol/L (22-29); Chloride 101 mmol/L (98-107); Globulin 3.1 g/dL (1.3-4.6); Glomerular Filtration Rate 115.8 mL/min (90-130); Glucose 91 mg/dL (65-115); Osmolality Calculated 281 mOsm/kg (285-295); Potassium 3.7 mmol/L (3.5-5.1); Sodium 138 mmol/L (136-145); Thyroid Stimulating Hormone 1.34 uIU/mL (0.27-4.20); Total Bilirubin 0.4 mg/dL (0.15-1.2); Total Protein 6.9 g/dL (6.6-8.7)
[2019-12-15] VITALS (48 sets, daily range): BP systolic 78–133; BP diastolic 56–88; PULSE 73–105; RESP 10–25; TEMP 36.6–37.2; O2SAT 88–96
[2019-12-15] LABS: Acetaminophen < 5.0 ug/mL (10-30); Salicylate < 0.3 mg/dL (3-10)
--- NOTE | 2019-12-15 00:11 | XR_ITS ---
WS: [id number] PORTABLE CHEST HISTORY: hypoxia COMPARISON: 12/10/2019 New opacifications are noted bilaterally since the prior examination. Increasing haziness in opacifications over the lower lung lee. Some of these opacifications are re lated to atelectasis. Linear areas of atelectasis at the LEFT lung base. Additional hazy opacificatio ns and lower lungs are probably related to fluid overload or pneumonitis. No effusions. Cardiac size: Normal. Mediastinum/Aorta: Mild enlargement of the mediastinum. Pulmonary arteries are prominent. No osseous abnormality seen. XR/XR chest 1V portable [id number] IMPRESSION: 1. Changes of chronic emphysema and mild CHF. 2. RIGHT lower lobe pneumonitis and LEFT lower lobe atelectasis. 3. Mildly dilated pulmonary arteries.
[2019-12-15 00:26] LABS: ABG PCO2 40.6 mmHg (35-45); ABG PH Result 7.38 (7.35-7.45); Base Excess ABG -1.1 mmol/L (-2.0-2.0); Blood Gas Allen Test Pos; Blood Gas Sample Site Radial, right; Blood Gas Sample Type Arterial; Oxygen Device OXY MASK; PO2 ABG 60.1 mmHg (80.0-100.0)
[2019-12-15] MEDS: FUROsemide 10 mg/mL SDV 10mL 60 MG IVP (00:34)
[2019-12-15 01:48] LABS: NT Pro B Type Natriuretic Pept 64 pg/mL (0-125)
--- NOTE | 2019-12-15 02:04 | W.ED.PSYCH ---
HPI - Psych General: Chief Complaint: Psychiatric Symptoms Stated Complaint: adenike pan Time Seen by Provider: 12/14/19 22:45 History of Present Illness: HPI Narrative: 59-year-old male well-known to the ER. He presents intoxicated with alcohol. He was brought in with affidavit signed by family stating that he was making calls to them threatening to cut his throat. He denies suicidal ideation at this time. He says that he has been drinking heavily though to quiet the whispers in his head. He has a history of pulmonary hypertension, and is on oxygen chronically. MD complaint: suicidal ideation Onset (ago): day(s) Duration: constant History of same: Yes Relieving factors: none Context: recent alcohol abuse Associated symptoms: Reports auditory hallucinations and suicidal ideation; Deny visual hallucinations Review of Systems Const: Denies: fever(s) or chills Eyes: Denies: change in vision or blurry vision ENMT: Denies: swelling of lips/tongue, bleeding gums, change in hearing or sinus pain Card: Reports: edema and dyspnea on exertion; Denies: chest pain, palpitations, irregular heart rhythm or orthopnea Resp: Reports: dyspnea and non-productive cough; Denies: productive cough or wheezing GI: Denies: abdominal pain, nausea or vomiting : Denies: difficulty urinating or hematuria Musc: Reports: back pain; Denies: neck pain Skin/Breast: Denies: rash, pruritus or erythema Neuro: Reports: dizziness; Denies: headache(s), vertigo or confusion Psych: Reports: auditory hallucinations and suicidal ideation; Denies: visual hallucinations [facility] ED PFSH: Medical History (Updated 12/11/19 @ 18:25 by Fanny Virgen MD) Atrial fibrillation Colon polyps Diverticulitis HIV (human immunodeficiency virus infection) Hypogonadism Liver tumor Lymphoma Meningitis Orchialgia Pulmonary embolism Surgical History H/O colonoscopy H/O hemorrhoidectomy History of orchiectomy, unilateral Family History Other No pertinent family history Social History Smoking and tobacco status: current every day smoker Alcohol intake: current Household members: family Housing: House Physical Exam Const: ORIENTATION/CONSCIOUSNESS: Yes oriented to person, Yes oriented to place and Yes oriented to time HENMT: COMMON NORMALS: normocephalic, external ears normal and Normal external nose present HEAD & SCALP: normocephalic; no scalp tenderness FACE & SINUS: normal facial exam NOSE: Normal external nose present and No nasal discharge present EXTERNAL EAR: Yes external ears normal MOUTH: tongue normal Eye: COMMON NORMALS: Equal, round and reactive pupils present, EOMs intact bilaterally and conjunctivae normal EYELID: eyelids normal CONJUNCTIVA: Yes conjunctivae normal PUPIL: Yes Equal, round and reactive pupils present Neck/C-Spine: GENERAL: No tracheal deviation Chest: COMMONS NORMALS: normal inspection of the chest CHEST: No tenderness Resp: COMMON NORMALS: clear to auscultation bilaterally EFFORT & INSPECTION: No tachypneic, No respiratory distress, No retractions, No uses accessory muscles and No tracheal deviation AUSCULTATION: clear to auscultation bilaterally, no rhonchi, no wheezes and lung sounds not diminished Cardio: COMMON NORMALS: regular rate and regular rhythm RATE: regular rate RHYTHM: regular rhythm HEART SOUNDS: no murmurs PERIPHERAL PULSES: radial pulses present GI: AUSCULTATION: No Hyperactive bowel sounds present and No Hypoactive bowel sounds present PALPATION: No Guarding due to palpation present (GI) and No Rigid due to palpation PERCUSSION: no dullness to percussion and no tympanic to percussion Neuro: SENSORIUM/ORIENTATION: Yes oriented to person, Yes oriented to place and Yes oriented to time Psych: APPEARANCE: Yes unkempt ATTITUDE: Yes agitated ACTIVITY/MOTOR BEHAVIOR: Yes restless SPEECH: Yes slurred MOOD & AFFECT: Yes Flat affect present THOUGHT PROCESS: disorganized THOUGHT CONTENT: Yes Suicidality present Skin: COMMON NORMALS: no rashes or lesions noted GENERAL SKIN EXAM: no rashes or lesions noted MDM - Psych MDM Narrative: Medical decision making narrative: 59-year-old male with a history of pulmonary hypertension, and chronic oxygen use at 4 L. He presents after an episode of heavy drinking, during which time he had made suicidal threats. We placed him on 96-hour hold. He was agitated, and threatening to leave. He was given Ativan and Geodon intramuscularly here. His oxygen saturations on his normal O2 settings were in the mid 80s. He was placed on a liters oxygen mask which seemed to improve his oxygenation. His blood gas shows a PO2 of 60 on 8 L. He will require withdrawal medication. Since he has been placed on 96-hour hold, he will go to the ICU for treatment of alcohol withdrawal, oxygenation, and psychiatric consultation. Lab Data: Labs: Lab Results 12/14/19 12/14/19 12/14/19 Range/Units 23:06 23:06 23:06 WBC 6.0 (4.0-10.0) 10^3/ uL RBC 4.06 L (4.1-5.3) 10^6/u L Hgb 13.8 (11.7-16.6) g/dL Hct 40.9 L (42.0-52.0) % MCV 100.7 H (80-94) fL MCH 34.0 (28.0-34.0) pg MCHC 33.7 (30.0-36.0) g/dL RDW 12.7 (12.1-15.1) % Plt Count 144 (130-400) 10^3/c mm MPV 9.1 (7.4-10.4) fL Neut % (Auto) 50.4 % Lymph % (Auto) 38.8 % [place] % (Auto) 7.0 % Eos % (Auto) 2.5 % Baso % (Auto) 1.0 % Neut # (Auto) 3.0 (1.8-7.7) 10^3/u L Lymph # (Auto) 2.3 (0.8-4.8) 10^3/u L [place] # (Auto) 0.4 (0.2-0.9) 10^3/u L Eos # (Auto) 0.2 (0.0-0.8) 10^3/u L Baso # (Auto) 0.1 (0.0-0.1) 10^3/u L Nucleated RBC % (a uto) 0 % Nucleated RBCs # 0.0 /100WBC Specimen Type Sample Site ABG pH (7.35-7.45) ABG pCO2 (35-45) mmHg ABG pO2 (80.0-100.0) mmH g ABG HCO3 (22-26) mmol/L ABG Base Excess (-2.0-2.0) mmol/ L Jean-Paul Test Hematocrit (42-52) % O2 Delivery Device O2 Liters/Min % Customer Data Technician ID Sodium 138 (136-145) mmol/L Potassium 3.7 (3.5-5.1) mmol/L Chloride 101 (98-107) mmol/L Carbon Dioxide 23 (22-29) mmol/L Anion Gap 17.7 (5-19) BUN 5 L (6-20) mg/dL Creatinine 0.7 (0.7-1.2) mg/dL GFR Calculation 115.8 (90-130) mL/min Glucose 91 (65-115) mg/dL Calculated Osmolal ity 281 L (285-295) mOsm/k g Calcium 9.0 (8.5-10.5) mg/dL Total Bilirubin 0.4 (0.15-1.2) mg/dL AST 23 (0-40) U/L ALT 16 (0-41) U/L Alkaline Phosphata se 91 (40-130) IU/L NT-Pro-B Natriuret Pep 64 (0-125) pg/mL Total Protein 6.9 (6.6-8.7) g/dL Albumin 3.8 (3.5-5.2) g/dL Globulin 3.1 (1.3-4.6) g/dL TSH 1.34 (0.27-4.20) uIU/ mL Salicylates < 0.3 L (3-10) mg/dL Acetaminophen < 5.0 L (10-30) ug/mL Ethyl Alcohol 197 H (0-10) mg/dL 05/25/20 Range/Units 00:20 WBC (4.0-10.0) 10^3/ uL RBC (4.1-5.3) 10^6/u L Hgb (11.7-16.6) g/dL Hct (42.0-52.0) % MCV (80-94) fL MCH (28.0-34.0) pg MCHC (30.0-36.0) g/dL RDW (12.1-15.1) % Plt Count (130-400) 10^3/c mm MPV (7.4-10.4) fL Neut % (Auto) % Lymph % (Auto) % [place] % (Auto) % Eos % (Auto) % Baso % (Auto) % Neut # (Auto) (1.8-7.7) 10^3/u L Lymph # (Auto) (0.8-4.8) 10^3/u L [place] # (Auto) (0.2-0.9) 10^3/u L Eos # (Auto) (0.0-0.8) 10^3/u L Baso # (Auto) (0.0-0.1) 10^3/u L Nucleated RBC % (a uto) % Nucleated RBCs # /100WBC Specimen Type Arterial Sample Site Radial, right ABG pH 7.38 (7.35-7.45) ABG pCO2 40.6 (35-45) mmHg ABG pO2 60.1 L (80.0-100.0) mmH g ABG HCO3 24.0 (22-26) mmol/L ABG Base Excess -1.1 (-2.0-2.0) mmol/ L Jean-Paul Test Pos Hematocrit 43.0 (42-52) % O2 Delivery Device Oxy mask O2 Liters/Min 8.0 % Customer Data Technician ID [email or web address] Sodium (136-145) mmol/L Potassium (3.5-5.1) mmol/L Chloride (98-107) mmol/L Carbon Dioxide (22-29) mmol/L Anion Gap (5-19) BUN (6-20) mg/dL Creatinine (0.7-1.2) mg/dL GFR Calculation (90-130) mL/min Glucose (65-115) mg/dL Calculated Osmolal ity (285-295) mOsm/k g Calcium (8.5-10.5) mg/dL Total Bilirubin (0.15-1.2) mg/dL AST (0-40) U/L ALT (0-41) U/L Alkaline Phosphata se (40-130) IU/L NT-Pro-B Natriuret Pep (0-125) pg/mL Total Protein (6.6-8.7) g/dL Albumin (3.5-5.2) g/dL Globulin (1.3-4.6) g/dL TSH (0.27-4.20) uIU/ mL Salicylates (3-10) mg/dL Acetaminophen (10-30) ug/mL Ethyl Alcohol (0-10) mg/dL Discharge Plan Discharge Prescriptions: No Action potassium chloride [Klor-Con M20] 20 mEq tablet,ER particles/crystals 20 meq PO BID RF: 0 fluconazole [Diflucan] 100 mg tablet 100 mg PO DAILY RF: 0 sildenafil (pulm.hypertension) 20 mg tablet 20 mg PO TID RF: 0 pantoprazole 40 mg tablet,delayed release (DR/EC) 40 mg PO QAM RF: 0 diltiazem HCl [Cartia XT] 240 mg capsule,extended release 24hr 240 mg PO DAILY Qty: 90 RF: 3 fentanyl 50 mcg/hr Patch 72 Hour 1 patch TRANSDERMAL Q72H RF: 0 Eliquis 5 mg Tablet 5 mg PO BID RF: 0 Opsumit 10 mg tablet 10 mg PO DAILY RF: 0 mirtazapine [Remeron] 15 mg tablet 15 mg PO BEDTIME RF: 0 Dovato 50-300 mg tablet 50 - 300 tab PO DAILY RF: 0 multivitamin [Multiple Vitamins] Tablet 1 tab PO DAILY RF: 0 trazodone 150 mg Tablet 300 mg PO BEDTIME RF: 0 albuterol sulfate [Ventolin HFA] 90 mcg/actuation Hfa Aerosol Inhaler 2 puff INHALATION 6XD PRN (Reason: Shortness Of Breath) RF: 0 testosterone 1.62 % (40.5 mg/2.5 gram) Gel In Packet See Rx Instructions .ROUTE .COMPLEX RF: 0 (DME) Compact Compressor Nebulizer Misc See Rx Instructions .ROUTE .MEDSUPPLY Qty: 1 RF: 0 Bactrim DS 800-160 mg Tablet See Rx Instructions .ROUTE .COMPLEX RF: 0 Xanax 0.25 mg Tablet 0.25 mg PO TID RF: 0 bupropion HCl 150 mg tablet extended release 24 hr 150 mg PO DAILY RF: 0 Symbicort 80-4.5 mcg/actuation HFA aerosol inhaler 2 puff INHALATION BID RF: 0 albuterol sulfate 2.5 mg /3 mL (0.083 %) solution for nebulization 2.5 mg INHALATION Q4-5H PRN (Reason: unknown) RF: 0 Coding Level of Care Code ED Referral Specialist for Chg Fwd
--- NOTE | 2019-12-15 04:04 | P.HP_ITS ---
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 He presented to the ER after family called EMS as he was intoxicated with alcohol and had made calls threatening to cut his own throat. He has been drinking heavily in the last 24 hours or so. He he stated to the ER physician that this was to drown out whispers. Upon arrival here he was noted to be agitated and has since received Ativan and Caren. His O2 sat usually is maintained with supplemental O2 at 4 L/min but in the ER today he was requiring higher 8 to 10 L/min with O2 sat 88 to 90%. At the time of my interview he is currently sedated and is unable to give me any clear history. Medications/Allergies Home Medications Medication Instructions Recorded Confirmed Last Taken Type fluconazole 100 mg tablet 100 mg PO DAILY tab 07/21/19 12/11/19 12/10/19 H istory pantoprazole 40 mg tablet,delayed 40 mg PO QAM 07/21/19 12/11/19 12/10/19 History release potassium chloride 20 mEq 20 meq PO BID 07/21/19 12/11/19 12/10/19 History tablet,extended release(part/cryst) sildenafil (pulm.hypertension) 20 20 mg PO TID 07/21/19 12/11/19 12/10/19 History mg tablet Eliquis 5 mg PO BID 08/02/19 12/11/19 12/10/19 History fentanyl 1 patch TRANSDERMAL Q72H 08/02/19 12/11/19 12/10/19 History Dovato 50 - 300 tab PO DAILY 08/05/19 12/11/19 12/10/19 History Opsumit 10 mg PO DAILY 08/05/19 12/11/19 12/10/19 History mirtazapine [Remeron] 15 mg PO BEDTIME 08/05/19 12/11/19 12/09/19 History nebulizers [Compact Compressor #1 each 09/01/19 12/11/19 Unknown Rx Nebulizer] diltiazem HCl 240 mg 240 mg PO DAILY #90 cap 11/04/19 12/11/19 12/10/19 Rx capsule,extended release 24 hr albuterol sulfate [Ventolin HFA] 2 puff INHALATION 6XD PRN 12/10/19 12/11/19 12/10/19 History multivitamin [Multiple Vitamins] 1 tab PO DAILY 12/10/19 12/11/19 12/10/19 History testosterone See Rx Instructions .ROUTE .COMPLEX 12/10/19 12/11/19 12/10/19 History trazodone 300 mg PO BEDTIME 12/10/19 12/11/19 12/10/19 History albuterol sulfate 2.5 mg INHALATION Q4-5H PRN 12/11/19 12/11/19 12/10/19 History alprazolam [Xanax] 0.25 mg PO TID 12/11/19 12/11/19 12/09/19 History budesonide-formoterol [Symbicort] 2 puff INHALATION BID 12/11/19 12/11/19 Unknown History bupropion HCl 150 mg PO DAILY 12/11/19 12/11/19 12/09/19 History sulfamethoxazole-trimethoprim See Rx Instructions .ROUTE .COMPLEX 12/11/19 12/11/19 12/08/19 History [Bactrim DS] Allergies Allergy/AdvReac Type Severity Reaction Status Date / Time No Known Allergies Allergy Verified 09/01/19 08:52 PFSH Acute PFSH: Medical History Atrial fibrillation Colon polyps Diverticulitis HIV (human immunodeficiency virus infection) Hypogonadism Liver tumor Lymphoma Meningitis Orchialgia Pulmonary embolism Surgical History H/O colonoscopy H/O hemorrhoidectomy History of orchiectomy, unilateral Family History Other No pertinent family history Social History Smoking and tobacco status: current every day smoker Alcohol intake: current Household members: family Housing: House Vitals/I&O/Wt Last Vital Signs Temp 98.7 F 12/14/19 22:36 Pulse 82 12/15/19 04:00 Resp 20 H 12/15/19 04:00 BP 78/59 12/15/19 04:00 Pulse Ox 92 12/15/19 04:00 Weight last 48 hrs Weight 74.843 kg Physical Exam Narrative: EXAM NARRATIVE: GEN: Somnolent, wakes up to calling name opens eyes and follow simple commands to take out his tongue, hold hands, move toes etc. 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 Data : 12/14/19 23:06 12/14/19 23:06 A&P Assessment and plan (1) Alcohol intoxication: Status: Acute Qualifiers: Complication of substance-induced condition: uncomplicated Qualified Code(s): F10.920 - Alcohol use, unspecified with intoxication, uncomplicated (2) Alcohol use disorder: Status: Acute (3) HIV (human immunodeficiency virus infection): Status: Acute (4) Hx pulmonary embolism: Status: Acute (5) Pulmonary hypertension: Status: Acute (6) Suicidal ideation: Status: Acute Additional A&P Information Admit to ICU #1 alcohol abuse disorder with heavy drinking in the last 24 hours. Alcohol level is currently at 197. Patient is pretty sedated at this time, after having received Ativan and getting on for alcohol withdrawal signs. We will admit patient to the ICU and monitor for signs of alcoholic withdrawal. We will use CIWA protocol Since patient's O2 sats is between 88 to 90% at this present time, would minimize the use of Ativan to avoid any further depression of mental status and respiratory status. Will prefer to use Precedex instead if patient starts to get agitated. Thiamine folic acid and multivitamin. #2 suicidal ideation. Per history obtained from talking to ER physician patient had told family that he intends to slit his throat. I am unable to verify this directly from the patient because of his current mental status. He is currently started on a 96-hour hold. Psychiatry assessment in the a.m. #3 HIV currently on treatment with Dovato. Continue same. Patient is also noted to be on prophylactic doses of Bactrim and fluconazole, I presume this may be for PCP prophylaxis. I do not know if he were ever diagnosed with cryptococcal infection to warrant fluconazole. We will continue same for now. #4 pulmonary hypertension. Patient is oxygen dependent at baseline. Currently requiring more than his normal baseline. We will obtain CTA of the chest to rule out pulmonary embolism. Patient does have a history of PE in spite of being on anticoagulation in the past. Continue sildenafil that he is on already. Continue OPSUMIT and DuoNeb and budesonide inhalation. #5 history of pulmonary embolism multiple times in the past. Continue Eliquis for now. CTA of the chest has been ordered today. #6 history of lymphoma, currently MARY DVT prophylaxis Eliquis Full code. Attestations Medical Necessity Statement*: Anticipate greater than 2 midnight admission for management of alcohol withdrawal, psychiatry assessment for suicidal ideation. 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
[2019-12-15 04:10] LABS: Add Urine Microscopic? NO
[2019-12-15 04:18] LABS: Bilirubin Urine Neg (NEGATIVE); Blood Urine Neg (Negative); Glucose Urine UA Norm (Normal); Ketones Urine Negative (Negative); Leukocyte Esterase Urine Negative (Negative); Nitrate Urine Negative (Negative); Protein Urine Neg (Negative); Specific Gravity, Urine 1.005 (1.005-1.030); Urine Appearance Clear (CLEAR); Urine Color Yellow (Yellow); Urobilinogen Urine Norm (Negative); pH Urine 5 (5-7)
[2019-12-15 04:23] LABS: Amphetamines Screen Urine Negative (Negative); Barbiturates Screen Urine Negative (Negative); Benzodiazepines Screen Urine Negative (Negative); Cocaine Screen Urine Negative (Negative); Opiate Screen Urine Negative (Negative); PCP Screen Urine Negative (Negative); THC Screen Urine Negative (Negative)
--- NOTE | 2019-12-15 04:52 | CTR_ITS ---
PROCEDURE INFORMATION: Exam: CT Angiography Chest With Contrast Exam date and time: 12/15/2019 5:34 AM Age: 59 years old Clinical indication: Dyspnea; Additional info: Pulmonary embolism TECHNIQUE: Imaging protocol: Computed tomographic angiography of the chest with intravenous contrast. 3D rendering: MIP and/or 3D reconstructed images were created by the technologist. Radiation optimization: All CT scans at this facility use at least one of these dose optimization techniques: automated exposure control; mA and/or kV adjustment per patient size (includes targeted exams where dose is matched to clinical indication); or iterative reconstruction. Contrast material: OMNI 350; Contrast volume: 95 ml; Contrast route: LT AC; COMPARISON: CTA Chest-Pulmonary Emb [id number] 05/19/2019 5:59 PM RADIATION DOSE METRICS: Total DLP: 675.9 mGy-cm FINDINGS: Tubes, catheters and devices: Interval disappearance of the endotracheal and enteric tubes. Pulmonary arteries: Continued enlargement of the main and central pulmonary arteries suggesting pulmonary arterial hypertension. Interval enlargement of the flat filling defect along the lateral wall of the right lower pulmonary artery associated with narrowing of the takeoff of the 2 right middle lobe segmental arteries and slight stranding within the more proximal of these arteries. Small filling defect in a subsegmental right middle lobe artery (image 325 of series 2) now clearly evident, possibly present but less apparent previously. Small chronic embolus along the lateral wall of the left lower central pulmonary artery highly likely, especially considering the small calcifications in this area. No interval acute pulmonary embolus. Aorta: Continued atherosclerosis. Still no aortic aneurysm. Suboptimal aortic opacification; no suggestion of dissection. Other arteries: Continued origination of the left vertebral artery from the aortic arch. Lungs: Continued marked centrilobular blebs and some paraseptal blebs and small bullae in the lungs with upper lobe predominance. Interval slight decrease in the atelectasis in the posterior right lower lobe. Interval clearance of much of the atelectasis from the left lower lobe. Interval minimal increase in the subsegmental atelectasis in the right middle lobe. Continued calcified granuloma in the medial right upper lobe. Continued presence of 2 small calcifications adjacent to left upper lobe subsegmental pulmonary arteries. Calcified granuloma in the lingula and left lower lobe still conceivable. Pleural space: Unremarkable. No pneumothorax. No pleural effusion. Heart: Continued slight cardiac prominence. Interval increase in the small amount of pericardial fluid. Lymph nodes: Continued prominence of bilateral hilar nodes. No interval enlarged mediastinal nodes. Gallbladder and bile ducts: Continued evidence of a very small gallstone. Stomach and bowel: Extensive prominent upper colonic diverticulosis again evident. Bones/joints: Stable slight compression fractures and increased kyphosis. Continued subchondral defects in each humeral head and the right glenoid. Soft tissues: No acute finding. CT/CT angio chest PE protcl [id number] IMPRESSION: 1. Bilateral chronic pulmonary emboli again evident. Interval enlargement of the chronic right lower lobe embolus. No apparent acute pulmonary embolus. Continued findings suggesting pulmonary arterial hypertension. 2. Marked emphysema again evident. Interval decrease in the atelectasis in the lower lobes. 3. Interval increase in the small amount of pericardial fluid. Continued slight cardiac prominence. 4. Continued prominence of nodes in each hilum. Cholelithiasis and prominent upper colonic diverticulosis again evident. 5. Interval disappearance of the endotracheal and enteric tubes. Other findings detailed above. Radiation Dose CTDIVOL = (mGy): DLP = 675.9 (mGy-cm)
[2019-12-15 05:08] LABS: D Dimer 0.57 ug/mIFEU (0-0.59)
[2019-12-15] MEDS: pantoprazole DR 40 mg Tablet PO (05:10)
[2019-12-15] MEDS: iohexol 350 mg/mL 100 mL Btl IV (05:39)
[2019-12-15] MEDS: budesonide 0.5 mg/2 mL Neb INHALATION ×2 (09:29→19:44)
[2019-12-15] MEDS: fluconazole 100 mg Tablet PO (09:56)
[2019-12-15] MEDS: LORazepam 2 mg/mL INJ 1 mL 0.5 MG IVP ×3 (09:56→19:55)
[2019-12-15] MEDS: dilTIAZem ER (24HR) 240 mg Capsule PO (09:56)
[2019-12-15] MEDS: buPROPion XL (24 HR) 150 mg Tablet PO (09:56)
[2019-12-15] MEDS: sulfamethoxazole-trimeth DS 160-800 mg Tablet 1 TAB PO (10:11)
--- NOTE | 2019-12-15 15:38 | P.CONIM_ITS ---
Providers/Reason for Consult Consulting Physican/Specialty*: Niko Bang MD. Psychiatry Reason for Consult*: Evaluation for ongoing treatment and 96 hour hold Attending Physician: Livan Ramirez MD Psych Consult HPI History of Present Illness Flakito Almanzar is a 59 year old male who presented to the emergency room intoxicated with a 96-hour hold affidavit stating he threatened to kill himself. He endorsed drinking heavily due to voices in his head. He was admitted on a 96-hour hold to the ICU for definitive treatment of his alcohol withdrawal and a psychiatric consult was initiated. Flakito was found to be cogent at the time of the interview reporting that he had gone to a rehab as planned but that he left after a few days secondary to being the oldest person there. This tag writer challenged that is a real reason to leave the rehab and he showed some sense of humor. He then very quickly started talking about discharge and ending the 96- hour hold what he thought was unfair. I explained that first of all he is not medically cleared and he is in an ICU. We discussed the fact that it is our assessment that him going to a rehab for 30, 60, 90, 180 days presents on the best chance of maintaining his sobriety. He claims that after he left the rehab that he was sober for weeks but based on his history it is unclear that that is unlikely reality. We reviewed his most recent evaluation here and he denies any substance of changes in his history so an excerpt was included below. Per last [facility] eval: History of Present Illness Flakito Almanzar is a 59 year old male who presented to the emergency room intoxicated again. There have been a call from his mother the day before that he had been drinking again and talking about admission. Reportedly he has not been drinking for that long. In the past several hospitalizations he has said he would do inpatient r only to ehab retract that at discharge and then either not go to outpatient rehab or go to outpatient rehab and then slip-up. We have advised him the last couple of times that inpatient rehab is really the only vehicle through which we see success for him. He presents today reporting that he is ready to go to inpatient rehab. He denied lethality he endorsed some depression but reported that he just cannot seem to stay sober and he acknowledges that he needs to go to inpatient services to have a chance for success. His last [facility] eval is included below. We reviewed that he denied any changes to his psychosocial situation. He still lives along he still has his mom and his template cutter as his significant supports. His template cutter was here when I arrived. Per last [facility] eval: HPI NPU History of Present Illness Flakito Almanzar is a 59 year old male who presents today as he has multiple times recently intoxicated and endorsing depression. His mother called and reported that he had gone to the outpatient rehab 3 times and then never returned. He spent the last week getting drunk with an individual that he had agreed he would avoid during this critical. When he is so vulnerable. She reported that he threatened to kill his stepfather while in an intoxicated state. He was very resistant to the initial interview though we reviewed his previous psychosocial information that can be seen below. We discussed his continued presentation with resistance for inpatient rehab followed by discharge to some outpatient services and generally return to drinking within a week to 2 weeks if not sooner. We discussed the reality of the situation and the need for him to get 30/60/90 days sobriety to allow his mind to function and make decisions that are in his best interest. Especially given his other medical comorbidities as we discussed in his last visit the impact of his drinking on his already taxed immune system. We discussed the risks benefits and alternatives of different interventions and he understood and agreed to proceed with us finding him an inpatient rehab bed. D/C summary including recent pertinent psychosocial information: Discharge Diagnosis (1) Alcoholic intoxication: Status: Resolved Qualifiers: Complication of substance-induced condition: with unspecified complication Qualified Code(s): F10.929 - Alcohol use, unspecified with intoxication, unspecified (2) Depression with suicidal ideation: Status: Resolved Reason for Visit Reason for Visit: Reason For Visit: ETOH INTOX;SI 96 HOUR HOLD Brief History: Psych Consult HPI History of Present Illness Flakito Almanzar is a 59 year old male known to this tag writer the previous interactions as he has been to the neuropsych unit 3 times since last March and this is the second ICU consult by this tag writer on Flakito since then. He has generally come in with suicidal thinking, depression and alcohol use/intoxication, been managed appropriately in the ICU, gone to the neuropsych unit for mental health treatment and been discharged without major incident. Unfortunately multiple times he has reported a plan to go to inpatient rehabilitation, and that has never actually happened. At some point prior to discharge he gives some intellectualized response as to why it's impossible or not the best for him that he go to the inpatient rehabilitation. Those things include commitments to the charge, commitments to school in his academic pursuits, as well as personal desires not to go. Today we discussed his presentation and concerns about lethality which he downplayed. He reported that he loves himself too much to commit suicide, that he knows we'll be sending us guide the committed suicide, as well as other reasons. He then went on to say that he would not be seen by this tag writer again, he was discharged. It seemed peculiar way that he said it. He tried to say that he would not be coming back here, because he wasn't going to drink, but it did not seem that was what he meant. He tried to say that he had plans to go to rehabilitation in the morning and that this had been prearranged. That has mother was aware and that he had to leave [facility] so that he can get some things done that only he could do prior to going for 30 days. His demeanor raised enough concern that I discussed with Dr. Dunbar that we needed to confirm with his mother that this was a known plan otherwise it raises concerns that he was trying to discharge to possibly harm himself. Otherwise he reported that there have been no changes in his psychosocial conditions. He reports that his history and situation had not changed and was consistent with my previous interview in March which can be seen below. Per last consult: History of Present Illness Date of Service: Apr 04, 2019 Reason for Consultation: Intoxication with reported aggressive threats Consulting Service and Doctor: Niko Bang M.D. Psychiatry. HPI: Flakito presents today somewhat lethargic having had a significant amount of Ativan to combat his alcohol withdrawal reporting that he's been having a fairly tough time recently. He reports that alcohol use has changed to an alarming level the last year and reports that the issue surrounds dealing with his homosexuality and the fact that he feels unworthy of guys love given his of homosexuality. He denies having any significant mental health treatment or hospitalizations or any problems and reports that he grew up in a fairly church family and reports that about a year ago he began to really struggle with his known homosexuality to himself but reports that he began living a clearly homosexual life which she is struggle with from a spiritual standpoint. Records show confusing contradictions as he has had the diagnosis of HIV for some time and is unclear how that occurred however this is how he reports the story. He reports that he has been drinking about 4 pints of alcohol a day and reports that that has been going on for about a year. He reports he is probably only had a day here and there that he hasn't had a drink in this period of time. He also identifies that about 2 weeks ago he had a 1 or 2 day cessation of drinking where and he had a withdrawal seizure. He had reached out to [facility] or this may have occurred during his emergency room stent however there is reportedly a bed available for him but we discussed the risks benefits and alternatives of home taking that bed with an understanding that he needs to be through the detox aspect of the situation prior to going to [facility]. His blood alcohol was 400 at about noon yesterday. He had gone to the emergency room and then left and apparently when he left the went home and had another pint of alcohol and was found unconscious and brought back to the emergency room which is how he got into the ICU. He reports a plan and agreement to work with the treatment team and psychiatric services to try to get him in a condition that it is safe for him to go to [facility] on Sunday at 8 AM when they would pick him up here at [facility]. Active Meds: Current Hospital Medications: Medications (Trade) Dose Ordered Sig/Stan[place] Route PRN Reason Start Time Stop Time Status Last Admin Dose Admin Potassium Chloride/Sodium Chloride 1,000 ml @ 125 mls/hr CONT IV 04/03/19 15:15 Hold 04/04/19 09:12 Thiamine Mononitrate (Thiamine Tab) 100 mg DAILY PO 04/04/19 10:00 04/04/19 09:10 Multivitamins Therapeutic (Therapeutic Multivitamin) 1 ea DAILY PO 04/04/19 10:00 04/04/19 09:10 Folic Acid/ Cyanocobalamin/ pyridoxin (Folic Acid Tab) 1 mg DAILY PO 04/04/19 10:00 04/04/19 09:10 Lorazepam (Ativan Inj) 2 mg PRN PRN IV FOR WITHDRAWAL 04/03/19 15:15 04/04/19 13:00 Lorazepam (Ativan Inj) 2 mg PRN PRN IM for Withdrawal 04/03/19 15:15 Lorazepam (Ativan Tab) 2 mg PRN PRN PO Withdrawal 04/03/19 15:15 04/04/19 16:07 Acetaminophen (Tylenol Tab) 650 mg Q4H PRN PO FOR MILD PAIN 04/03/19 15:15 Ondansetron HCl (Zofran Inj) 4 mg Q6H PRN IV FOR NAUSEA AND VOMITING 04/03/19 15:15 Pantoprazole Sodium (Protonix Tab) 40 mg DAILY PO 04/04/19 10:00 04/04/19 09:10 Enoxaparin Sodium (Lovenox) 40 mg Q24H SUBCUT 04/03/19 15:15 04/04/19 16:07 Nicotine (Nicoderm Patch) 21 mg DAILY PRN TD 04/04/19 04:30 04/04/19 05:05 Dexmedetomidine HCl 400 mcg/ Sodium Chloride 104 ml @ 0 mls/hr CONT IV 04/04/19 10:00 04/04/19 10:18 Haloperidol Lactate (Haldol Inj) 5 mg Q3H PRN IM FOR AGITATION 04/04/19 13:30 Home Meds: Home Medications: Active Reported [Opsumit] 1 Tab PO DAILY Symbicort 80-4.5 Mcg Inhaler (Budesonide/Formoterol Fumarate) 10.2 Gm Inhaler 2 Puff INH BID Iron Sulfate 325MG Tab (Ferrous Sulfate) 325 Mg Tabec 325 Mg PO BREAKFAST Diflucan Tab (Fluconazole) 100 Mg Tablet 100 Mg PO DAILY Wellbutrin XL (Bupropion HCl) 150 Mg Tab.sr.24h 150 Mg PO DAILY Trazodone Tab (Trazodone HCl) 150 Mg Tablet 300 Mg PO BEDTIME Klor Con Tab (Potassium Chloride) 20 Meq Tab.prt.sr 20 Meq PO TID Protonix Tab (Pantoprazole Sodium) 40 Mg Tabec 40 Mg PO DAILY [Descovy] 1 Tab PO DAILY Isentress Chew Tab (Raltegravir) 100 Mg Tab.chew 400 Mg PO BID Xanax Tab (Alprazolam) 0.25 Mg Tab 0.25 Mg PO TID Oxycodone IR (Oxycodone HCl) 30 Mg Tab 30 Mg PO QID PRN Duragesic Patch (Fentanyl) 50 Mcg Patch 50 Mcg TD Q72H Prednisone Tab (Prednisone) 10 Mg Tablet 20 Mg PO DAILY Narcan (Naloxone HCl) 4 Mg/Actuation [place] 4 Mg NASAL ONCE PRN 1 Days Cartia XT (Diltiazem HCl) 240 Mg Cap.sr.24h 240 Mg PO DAILY Pradaxa Cap (Dabigatran) 150 Mg Capsule 150 Mg PO BID Voltaren Gel (Diclofenac Gel) 100 Gm Gel..gm. 1 Applic TOP QID PRN Past Medical History Past Medical History: Please see ED and ICU notes for additional history. Other Family Medical History: He denies significant mental health, addiction or other issues in his family. He denies any history of suicide attempts or completions in his family. Other Past Social History: Developmental history: Flakito reports being the product of a normal . He endorses that he learn to walk and talk and met his development milestones on time. He denied any speech therapy, learning support, emotional support special education classes. Psychosocial history: He reports being the only child of his parents and that they were together when he was born. He denies any other siblings through their union with any other partners and reports that they never . He reports that his childhood was good but he was raised in a fairly church family went to [employer] on Sundays and Wednesdays at least. He reports he graduated from high school. He endorses being homosexual and his long-term relationship has not been very long. He denies ever being , never had any children, never been in the [facility] he endorses being a [employer]. He reports his longest tenure in any job was about 7 years. He reports he lives in a house alone. He denies any significant legal history. Meds Current Medications: Current Medications Generic Name Dose Route Start Last Admin Trade Name Freq PRN Reason Stop Dose Admin Acetaminophen 650 mg 12/15/19 04:52 12/16/19 07:53 Tylenol PO 650 mg Q6H PRN Administration Mild/Mod Pain Or Temp >/= 101 Budesonide 0.5 mg 12/15/19 09:00 12/16/19 08:19 Pulmicort INHALATION 0.5 mg BID [place] Administration Bupropion HCl 150 mg 12/15/19 09:00 12/16/19 07:53 Wellbutrin Xl (2 4 Hr) PO 150 mg DAILY [place] Administration Diltiazem HCl 240 mg 12/15/19 09:00 12/16/19 07:53 Cardizem Cd (24h r) PO 240 mg DAILY [facility] Administration Fentanyl 1 patch 12/15/19 18:15 12/15/19 18:27 Duragesic 50 Mcg Patch TRANSDERMA 1 patch Q72H [place] Administration Fluconazole 100 mg 12/15/19 09:00 12/16/19 07:53 Diflucan Tab PO 100 mg DAILY [facility] Administration Mirtazapine 15 mg 12/15/19 21:00 12/15/19 19:56 Remeron PO 15 mg BEDTIME [facility] Administration Nicotine 1 patch 12/16/19 09:00 12/16/19 07:52 Nicoderm 21 Mg P atch TRANSDERMA 1 patch DAILY [facility] Administration Non-Formulary 1 each 12/15/19 09:00 12/16/19 07:54 Medication Apixaba n PO 1 each 5 Mg BID [facility] Administration Non-Formulary Medi cation 1 tab 12/15/19 09:00 12/16/19 07:55 Dolutegravir-Vega ivudine [Dovato] PO 1 tab DAILY [facility] Administration Non-Formulary 1 each 12/15/19 09:00 12/16/19 07:55 Medication (Descov y PO 1 each 200-25 Mg) DAILY [facility] Administration Non-Formulary Medi cation 10 mg 12/15/19 09:00 12/16/19 07:55 Macitentan [Opsu nathaniel] PO 10 mg DAILY [facility] Administration Pantoprazole Sodiu m 40 mg 12/15/19 06:00 12/16/19 05:38 Protonix PO 40 mg QAM [facility] Administration Trimethoprim/Sulfa methoxazole 1 tab 12/15/19 09:00 12/16/19 07:53 Bactrim Ds PO 1 tab [id number] [facility] Administration Protocol PFS NPU PFSH: Medical History Atrial fibrillation Colon polyps Diverticulitis HIV (human immunodeficiency virus infection) Hypogonadism Liver tumor Lymphoma Meningitis Orchialgia Pulmonary embolism Surgical History H/O colonoscopy H/O hemorrhoidectomy History of orchiectomy, unilateral Family History Other No pertinent family history Social History Smoking and tobacco status: current every day smoker Alcohol intake: current Household members: family Housing: House Mental Status Exam MSE Comments: This is a well-nourished, well-developed white male with limited dressing, grooming and eye contact. With the O2 cannula on. No abnormal movements except for psychomotor retardation. Cooperative with exam in mild distress. Speech was decreased rate and volume. Mood described as better than yesterday, affect subdued. Thought process organized. Thought content: Patient denied any suicidal or homicidal ideations, there were no delusions reported or noted, he denied any auditory or visual hallucinations. Attention and concentration were intact, and memory was unreliable but none were formally tested. He is alert and oriented ?3. Insight and judgment are impaired. impulse control is impaired. Vitals/I&O/Wt Last Vital Signs Temp 98.4 F 12/15/19 04:43 Pulse 85 12/15/19 04:43 Resp 17 12/15/19 04:43 BP 113/68 12/15/19 04:43 Pulse Ox 90 12/15/19 04:43 12/15/19 22:59 Intake Total 1000 / 1500 Output Total 500 / 1400 Balance 500 / 100 Weight last 48 hrs Weight 74.843 kg A&P Assessment and plan (1) Suicidal ideation: Status: Acute (2) Alcohol intoxication: Status: Acute Qualifiers: Complication of substance-induced condition: uncomplicated Qualified Code(s): F10.920 - Alcohol use, unspecified with intoxication, uncomplicated (3) Alcohol use disorder: Status: Acute (4) Major depressive disorder: Status: Acute (5) HIV (human immunodeficiency virus infection): Status: Acute Additional A&P Information This is a 59-year-old white male with a long history of depression and alcohol use disorder with significant self-loathing and suicidal tendencies when intoxicated and relapsing, who presents to the ICU with reports of suicidal/homicidal threats with denial of feeling suicidal. 1. Continue current medication. 2. Continue alcohol withdrawal protocol. 3. Encourage discharge to a 30 day or more inpatient drug and alcohol treatment facility. 4. Continue sitter and 96 hour hold for the time being.. 5. We will continue to follow. Involuntary Hold Information 96 Hour Hold: 96 Hour Involuntary Admission: Yes 96 Hour Hold Ending Date: 08/29/19 96 Hour Hold Ending Time: 12:01 Attestations NPU Medical Necessity Statement*: N/A. Refer to primary care team for inpatient necessity. However we will continue to evaluate for need for ongoing psychiatric services versus alcohol rehab. Coding Level of Care Code Acute [employer] Mainframe Developer for [facility] Fwd Diagnoses Suicidal ideation R45.851 Alcohol intoxication F10.920 Complication of substance-induced condition: uncomplicated Alcohol use disorder Major depressive disorder F32.9 HIV (human immunodeficiency virus infection) B20
--- NOTE | 2019-12-15 16:28 | PC.NURSE ---
ON FIRST ASSESSMENT PATIENT WOULD FOLLOW COMMANDS BUT HAD A NOTABLE GRUNT IN HIS BREATHING WITH CHIN TO CHEST. REPLACED NIV CPAP AND HE CLEARED UP IN HIS THOUGHT PROCESSES AND BREATHING WAS MORE CONTROLLED. STRONG BILATERAL TREMORS NOTED IN EXTREMITIES. SHEEN OF SWEAT ON HIS FACE. GOOD APPETITE. SOME ATTENTION DEFICIT LATER IN THE SHIFT BUT ABLE TO MAINTAIN SATS ABOVE 90 ON 5 L NC. MOTHER UPDATED 3X DURING THE SHIFT BEFORE 2PM. ANTICIPATE TRANSFER TO PSYCH FLOOR BUT PATIENT STILL HAS SOME CHEST PAIN ON ACTIVITY AND WHEN HE BREATHS DEEP . NORMAL OXYGEN FLOW IS 4L AT HOME.
--- NOTE | 2019-12-15 17:47 | PM.PN ---
Subjective Subjective: Interval history: This morning patient was examined in ICU, he does not understand why he is here in the hospital, states that his last alcohol drink was yesterday, at 2 PM, will be learned from family members that he was desperate for alcohol to drink rubbing alcohol and mineral extract, no chest pain, no shortness of breath, no dysphagia, no odynophagia, no hemoptysis, patient has a minimal tremor no visual hallucinations, no auditory hallucinations, no tactile hallucinations, no suicidal ideation Vitals/I&O/Wt Last Vital Signs Temp 97.9 F 12/15/19 16:00 Pulse 90 12/15/19 16:00 Resp 19 H 12/15/19 16:00 BP 113/81 12/15/19 16:00 Pulse Ox 93 12/15/19 16:00 12/15/19 12/15/19 12/15/19 06:59 14:59 22:59 Intake Total 500 / 500 800 / 1300 Output Total 900 / 900 500 / 1400 Balance -400 / -400 300 / -100 Weight last 48 hrs Weight 74.843 kg Physical Exam Const: COMMON NORMALS: no acute distress and patient oriented x3 HENMT: COMMON NORMALS: normocephalic HEAD & SCALP: normocephalic Neck/C-Spine: COMMON NORMALS: no JVD Resp: COMMON NORMALS: normal respiratory effort, No retractions, No use of accessory muscles and clear to auscultation bilaterally AUSCULTATION: clear to auscultation bilaterally Cardio: COMMON NORMALS: no JVD, regular rate, regular rhythm, S1 normal heart sound present and S2 normal heart sound present RATE: regular rate RHYTHM: regular rhythm HEART SOUNDS: S1 normal heart sound present and S2 normal heart sound present GI: COMMON NORMALS: Normal to inspection, nondistended, normoactive bowel sounds present, Soft to palpation, non-tender, No hepatosplenomegaly present, no masses and no bruits PALPATION: Yes Soft to palpation and Yes No hepatosplenomegaly present Extremity: COMMON NORMALS: capillary refill normal, no clubbing, cyanosis or edema, no calf tenderness and no pedal edema Neuro: COMMON NORMALS: patient oriented x3 Psych: COMMON NORMALS: mental status grossly normal Data : 12/14/19 23:06 12/14/19 23:06 A&P Assessment and plan (1) Alcohol intoxication: Status: Acute Qualifiers: Complication of substance-induced condition: uncomplicated Qualified Code(s): F10.920 - Alcohol use, unspecified with intoxication, uncomplicated (2) Alcohol use disorder: Status: Acute (3) HIV (human immunodeficiency virus infection): Status: Acute (4) Hx pulmonary embolism: Status: Acute (5) Pulmonary hypertension: Status: Acute (6) Suicidal ideation: Status: Acute Additional A&P Information Admit to ICU #1 alcohol abuse disorder with heavy drinking in the last 24 hours. Alcohol level is currently at 197. Answering all questions, minimal tremor, no auditory hallucinations, no visual hallucinations, no tachycardia We will admit patient to the ICU and monitor for signs of alcoholic withdrawal. We will use [facility] protocol Thiamine folic acid and multivitamin. #2 suicidal ideation. He is currently started on a 96-hour hold. Psychiatry assessment in the a.m. #3 HIV currently on treatment with Dovato. Continue same. Patient is also noted to be on prophylactic doses of Bactrim and fluconazole, I presume this may be for PCP prophylaxis. I do not know if he were ever diagnosed with cryptococcal infection to warrant fluconazole. We will continue same for now. #4 pulmonary hypertension Continue sildenafil that he is on already. Continue OPSUMIT and DuoNeb and budesonide inhalation. #5 history of pulmonary embolism multiple times in the past. Since 2009. Continue Eliquis for now. CTA of the chest has been ordered today shows bilateral chronic pulmonary emboli, interval involvement of the right lower lobe embolus -Patient has had one episode of GI bleed, one episode of hemoptysis in the past but but, but anticoagulation was resumed every time, -Back in June patient was on Coumadin, but was switched over to Eliquis, but a month later due to complaints of diarrhea with switch back to Coumadin, then on his admission on 08/02/2019 was switched back to Eliquis -We will discuss with hematology oncology tomorrow about possibly switching to Coumadin and Lovenox #6 history of lymphoma, currently MARY chronic pain, continue fentanyl, continue lorazepam DVT prophylaxis Eliquis Full code. Attestations Medical Necessity Statement*: Patient requires hospitalization, alcohol withdrawal Coding Level of Care Code Acute Government Auditor for [employer] Ordonez Diagnoses Alcohol intoxication F10.920 Complication of substance-induced condition: uncomplicated Alcohol use disorder HIV (human immunodeficiency virus infection) B20 Hx pulmonary embolism Z86.711 Pulmonary hypertension I27.20 Suicidal ideation R45.851
[2019-12-15] MEDS: fentaNYL 50 mcg Patch 1 PATCH TRANSDERMA (18:27)
[2019-12-15] MEDS: mirtazapine 15 mg Tablet PO (19:56)
[2019-12-16] VITALS (46 sets, daily range): BP systolic 81–149; BP diastolic 53–105; PULSE 74–106; RESP 11–26; TEMP 36.8–36.9; O2SAT 88–96
[2019-12-16] MEDS: LORazepam 2 mg/mL INJ 1 mL 0.5 MG IVP ×3 (00:17→07:54)
[2019-12-16 05:07] LABS: Magnesium 2.3 mg/dL (1.7-2.3); Phosphorus 3.9 mg/dL (2.5-4.5)
[2019-12-16] MEDS: pantoprazole DR 40 mg Tablet PO (05:38)
[2019-12-16] MEDS: nicotine 21 mg Patch 1 PATCH TRANSDERMA (07:52)
[2019-12-16] MEDS: sulfamethoxazole-trimeth DS 160-800 mg Tablet 1 TAB PO (07:53)
[2019-12-16] MEDS: fluconazole 100 mg Tablet PO (07:53)
[2019-12-16] MEDS: acetaminophen 325 mg Tablet 650 MG PO (07:53)
[2019-12-16] MEDS: dilTIAZem ER (24HR) 240 mg Capsule PO (07:53)
[2019-12-16] MEDS: buPROPion XL (24 HR) 150 mg Tablet PO (07:53)
[2019-12-16] MEDS: budesonide 0.5 mg/2 mL Neb INHALATION ×2 (08:19→21:41)
[2019-12-16 08:45] LABS: Basophils # 0.1 10^3/uL (0.0-0.1); Basophils % 1.1 %; Eosinophils # 0.1 10^3/uL (0.0-0.8); Eosinophils % 1.8 %; Hematocrit 47.8 % (42.0-52.0); Hemoglobin 15.9 g/dL (11.7-16.6); Lymphocytes # 1.6 10^3/uL (0.8-4.8); Lymphocytes % 28.5 %; Mean Corpuscular HGB Conc 33.3 g/dL (30.0-36.0); Mean Corpuscular Hemoglobin 32.7 pg (28.0-34.0); Mean Corpuscular Volume 98.4 fL (80-94); Mean Platelet Volume 9.1 fL (7.4-10.4); Monocytes # 0.5 10^3/uL (0.2-0.9); Monocytes % 8.5 %; Neutrophils # 3.4 10^3/uL (1.8-7.7); Neutrophils % 59.9 %; Nucleated Red Blood Cells % 0 %; Platelet Count 172 10^3/cmm (130-400); Red Blood Count 4.86 10^6/uL (4.1-5.3); Red Cell Distribution Width 12.7 % (12.1-15.1); White Blood Count 5.6 10^3/uL (4.0-10.0)
[2019-12-16 08:59] LABS: Alanine Aminotransferase 18 U/L (0-41); Albumin Level 4.4 g/dL (3.5-5.2); Alkaline Phosphatase 104 IU/L (40-130); Anion Gap 16.5 (5-19); Aspartate Amino Transferase 27 U/L (0-40); Blood Urea Nitrogen 9 mg/dL (6-20); Calcium 9.3 mg/dL (8.5-10.5); Carbon Dioxide 26 mmol/L (22-29); Chloride 98 mmol/L (98-107); Globulin 3.3 g/dL (1.3-4.6); Glomerular Filtration Rate 99.3 mL/min (90-130); Glucose 100 mg/dL (65-115); Osmolality Calculated 280 mOsm/kg (285-295); Potassium 3.5 mmol/L (3.5-5.1); Sodium 137 mmol/L (136-145); Total Bilirubin 0.8 mg/dL (0.15-1.2); Total Protein 7.7 g/dL (6.6-8.7)
[2019-12-16] MEDS: LORazepam 2 mg/mL INJ 1 mL IVP ×2 (09:50→11:39)
--- NOTE | 2019-12-16 10:49 | PC.NURSE ---
ELIESER WAS NOTABLY MORE RESTLESS THIS MORNING. HIS TREMOR WAS MODERATE AND STEADY 0700 BUT EVEN WITH .5 OF ATIVAN HE WAS SHAKING HARD AND DIAPHORETIC BY 0930. CONFUSED AND DEMANDING TO GO AMA. HIS 96 HR HOLD WAS SHOWN TO HIM AND HE STATED HE FELT OUT OF PLACE ' HERE. DR TANG CALLED FOR A COMPLETE [place] PROTOCOL. 2 OF ATIVAN GIVEN AND HE WAS ABLE TO REST. PRIOR TO ATIVAN HE WAS VERY AGGITATED. HE WAS THANKFUL AND CALM ONCE GIVEN RELIEF.
[2019-12-16] MEDS: chlordiazePOXIDE 25 mg Capsule 50 MG PO (11:39)
--- NOTE | 2019-12-16 11:56 | PM.PN ---
Subjective Subjective: Interval history: This morning patient denies chest pain, palpitations, anxiety, depression, suicidal ideation, homicidal ideation, visual hallucinations, auditory hallucinations, tactile hallucinations, states that he really wants to have Ativan when he goes home, but is only given a month supply, Vitals/I&O/Wt Last Vital Signs Temp 98.4 F 12/16/19 08:00 Pulse 93 12/16/19 10:30 Resp 18 12/16/19 10:30 BP 132/97 12/16/19 10:30 Pulse Ox 92 12/16/19 10:30 12/15/19 12/16/19 12/16/19 22:59 06:59 14:59 Intake Total 1000 / 1500 600 / 2100 500 / 500 Output Total 500 / 1400 600 / 600 Balance 500 / 100 600 / 700 -100 / -100 Weight last 48 hrs Weight 74.843 kg Physical Exam Const: COMMON NORMALS: no acute distress and patient oriented x3 HENMT: COMMON NORMALS: normocephalic HEAD & SCALP: normocephalic Neck/C-Spine: COMMON NORMALS: no JVD Resp: COMMON NORMALS: normal respiratory effort, No retractions, No use of accessory muscles and clear to auscultation bilaterally AUSCULTATION: clear to auscultation bilaterally Cardio: COMMON NORMALS: no JVD, regular rate, regular rhythm, S1 normal heart sound present and S2 normal heart sound present RATE: regular rate RHYTHM: regular rhythm HEART SOUNDS: S1 normal heart sound present and S2 normal heart sound present GI: COMMON NORMALS: Normal to inspection, nondistended, normoactive bowel sounds present, Soft to palpation, non-tender, No hepatosplenomegaly present, no masses and no bruits PALPATION: Yes Soft to palpation and Yes No hepatosplenomegaly present Extremity: COMMON NORMALS: capillary refill normal, no clubbing, cyanosis or edema, no calf tenderness and no pedal edema Neuro: COMMON NORMALS: patient oriented x3 Psych: COMMON NORMALS: mental status grossly normal Data : 12/16/19 07:54 12/16/19 07:54 A&P Assessment and plan (1) Alcohol intoxication: Status: Acute Qualifiers: Complication of substance-induced condition: uncomplicated Qualified Code(s): F10.920 - Alcohol use, unspecified with intoxication, uncomplicated (2) Alcohol use disorder: Status: Acute (3) HIV (human immunodeficiency virus infection): Status: Acute (4) Hx pulmonary embolism: Status: Acute (5) Pulmonary hypertension: Status: Acute (6) Suicidal ideation: Status: Acute Additional A&P Information Admit to ICU #1 alcohol abuse disorder with heavy drinking in the last 24 hours. Alcohol level is currently at 197. Answering all questions, minimal tremor, no auditory hallucinations, no visual hallucinations, no tachycardia Transfer patient to general medical floors We will use [facility] protocol Thiamine folic acid and multivitamin. According to family members, patient was consuming rubbing alcohol, anything that had alcohol in it to get a fix. Currently no respiratory compromise, no complaints of dysphagia, odynophagia, no significant choking events, no aspiration events, no fevers, continue Protonix for now, consider outpatient EGD for consideration for evaluation for stricture #2 suicidal ideation. None currently, he is currently started on a 96-hour hold. Psychiatry assessment by Dr. Bang #3 HIV currently on treatment with Dovato. Continue same. Patient is also noted to be on prophylactic doses of Bactrim and fluconazole, I presume this may be for PCP prophylaxis. I do not know if he were ever diagnosed with cryptococcal infection to warrant fluconazole. We will continue same for now. #4 pulmonary hypertension Continue sildenafil that he is on already. Continue OPSUMIT and DuoNeb and budesonide inhalation. #5 history of pulmonary embolism multiple times in the past. Since 2009. Continue Eliquis for now. CTA of the chest has been ordered today shows bilateral chronic pulmonary emboli, interval involvement of the right lower lobe embolus -Patient has had one episode of GI bleed, one episode of hemoptysis in the past but but, but anticoagulation was resumed every time, -Back in June patient was on Coumadin, but was switched over to Eliquis, but a month later due to complaints of diarrhea with switch back to Coumadin, then on his admission on 08/02/2019 was switched back to Eliquis -Discussed with hematology oncology, continue Eliquis for now as patient has failed anticoagulation with Coumadin in the past #6 history of lymphoma, currently MARY chronic pain, continue fentanyl DVT prophylaxis Eliquis Full code. Attestations Medical Necessity Statement*: Patient requires continued hospitalization for alcohol intoxication, will be downgraded to general medical floors today, still on 96-hour hold Coding Level of Care Code Acute Air Breaker Operator for Chg Fwd Diagnoses Alcohol intoxication F10.920 Complication of substance-induced condition: uncomplicated Alcohol use disorder HIV (human immunodeficiency virus infection) B20 Hx pulmonary embolism Z86.711 Pulmonary hypertension I27.20 Suicidal ideation R45.851
[2019-12-16] MEDS: haloperidol inj 5 mg/mL INJ 1 mL 3 MG IVP (12:27)
[2019-12-16 13:43] LABS: ABG PCO2 39.8 mmHg (35-45); ABG PH Result 7.44 (7.35-7.45); Arterial Blood Gas Hematocrit 46.4 % (42-52); Base Excess ABG 2.3 mmol/L (-2.0-2.0); Blood Gas Allen Test Pos; Blood Gas Sample Site Brachial, right; Blood Gas Sample Type Arterial; Carboxyhemoglobin 0.8 %THgb (0.4-20.1); HCO3 ABG 26.7 mmol/L (22-26); HGB O2 Sat 92.1 % (95-100); Ionized Calcium Level - ABG 1.2 mmol/L (1.1-1.4); Methemoglobin 0.8 % (0.4-1.5); Oxygen Saturation ABG 93.6; PO2 ABG 66.2 mmHg (80.0-100.0); Potassium Level - ABG 3.8 mmol/L (3.5-5.0); Total Hemoglobin 15.2 g/dL (14-18)
--- NOTE | 2019-12-16 15:48 | P.PN_ITS ---
Subjective NPU Subjective: Interval history: Flakito presented today essentially unarousable and communicative for interview. He had really struggled with withdrawal symptoms today from his alcohol addiction and was given medications to assist the process which made him sleepy and unarousable for a formal interview. Mental Status Exam MSE Comments: This is a well-nourished, well-developed white male with limited dressing, grooming and eye contact. With the O2 on via a mask. No abnormal movements except for psychomotor retardation. uncooperative with exam in no acute distress. Speech was absent. Mood not described, affect sleep. Vitals/I&O/Wt Last Vital Signs Temp 98.3 F 12/16/19 04:00 Pulse 90 12/16/19 04:00 Resp 16 12/16/19 04:00 BP 127/90 12/16/19 04:00 Pulse Ox 92 12/16/19 02:00 12/16/19 14:59 Intake Total 500 / 500 Output Total 600 / 600 Balance -100 / -100 Data NPU : 12/17/19 03:00 12/17/19 03:00 A&P Additional A&P Information (1) Suicidal ideation: (2) Alcohol intoxication: (3) Alcohol use disorder: (4) Major depressive disorder: (5) HIV (human immunodeficiency virus infection): This is a 59-year-old white male with a long history of depression and alcohol use disorder with significant self-loathing and suicidal tendencies when in toxicated and relapsing, who presents to the ICU with reports of suicidal with denial of feeling suicidal and today unarousable for interview. 1. Continue current medication. 2. Continue alcohol withdrawal protocol. 3. Encourage discharge to a 30 day or more inpatient drug and alcohol treatment facility. 4. Continue sitter and 96 hour hold for the time being. 5. We will continue to follow. Involuntary Hold Information 96 Hour Hold: 96 Hour Involuntary Admission: Yes 96 Hour Hold Ending Date: 08/29/19 96 Hour Hold Ending Time: 12:01 Attestations NPU Medical Necessity Statement*: N/A. Refer to primary care team for inpatient necessity. However we will continue to evaluate for need for ongoing psychiatric services versus alcohol rehab. Coding Level of Care Code Acute Fire Support Specialist for Osmin Ordonez
[2019-12-16] MEDS: LORazepam 2 mg Tablet PO (20:43)
[2019-12-16] MEDS: mirtazapine 15 mg Tablet PO (20:43)
[2019-12-17] VITALS (37 sets, daily range): BP systolic 87–140; BP diastolic 59–98; PULSE 78–116; RESP 11–19; TEMP 36.2–37.4; O2SAT 86–97
[2019-12-17 03:49] LABS: Basophils # 0.1 10^3/uL (0.0-0.1); Basophils % 1.1 %; Eosinophils # 0.1 10^3/uL (0.0-0.8); Eosinophils % 2.6 %; Hemoglobin 15.3 g/dL (11.7-16.6); Lymphocytes # 1.3 10^3/uL (0.8-4.8); Lymphocytes % 28.6 %; Mean Corpuscular HGB Conc 33.3 g/dL (30.0-36.0); Mean Corpuscular Hemoglobin 33.6 pg (28.0-34.0); Mean Corpuscular Volume 100.9 fL (80-94); Mean Platelet Volume 9.2 fL (7.4-10.4); Monocytes # 0.4 10^3/uL (0.2-0.9); Monocytes % 8.8 %; Neutrophils # 2.7 10^3/uL (1.8-7.7); Neutrophils % 58.5 %; Nucleated Red Blood Cells % 0 %; Platelet Count 157 10^3/cmm (130-400); Red Blood Count 4.56 10^6/uL (4.1-5.3); Red Cell Distribution Width 12.9 % (12.1-15.1); White Blood Count 4.5 10^3/uL (4.0-10.0)
[2019-12-17 04:20] LABS: Alanine Aminotransferase 19 U/L (0-41); Albumin Level 4.1 g/dL (3.5-5.2); Alkaline Phosphatase 96 IU/L (40-130); Anion Gap 16.1 (5-19); Aspartate Amino Transferase 25 U/L (0-40); Blood Urea Nitrogen 13 mg/dL (6-20); Calcium 9.4 mg/dL (8.5-10.5); Carbon Dioxide 25 mmol/L (22-29); Chloride 102 mmol/L (98-107); Globulin 3.1 g/dL (1.3-4.6); Glomerular Filtration Rate 76.7 mL/min (90-130); Glucose 99 mg/dL (65-115); Osmolality Calculated 284 mOsm/kg (285-295); Potassium 4.1 mmol/L (3.5-5.1); Sodium 139 mmol/L (136-145); Total Bilirubin 0.7 mg/dL (0.15-1.2); Total Protein 7.2 g/dL (6.6-8.7)
[2019-12-17] MEDS: LORazepam 2 mg Tablet PO ×5 (04:20→20:23)
[2019-12-17 04:26] LABS: Magnesium 2.4 mg/dL (1.7-2.3); Phosphorus 5.4 mg/dL (2.5-4.5)
[2019-12-17] MEDS: pantoprazole DR 40 mg Tablet PO (05:51)
--- NOTE | 2019-12-17 06:45 | PC.NURSE ---
SHIFT SUMMARY PT HAS REMAINED ALERT AND ORIENTATED TO PERSON AND PLACE. PT HAS RECEIVED ATIVAN PO TWICE IN THE NIGHT. PT WORE BIPAP FOR 3 HOURS APPROXIMATELY IN THE NIGHT. SOFTWARE SOLUTIONS ARCHITECT AT BEDSIDE. PT HAS NOT HAD ANY OUTBURST IN THE SHIFT.
--- NOTE | 2019-12-17 07:45 | XR_ITS ---
WS: [id number] PORTABLE CHEST HISTORY: Requiring OXYGEN COMPARISON: 12/15/2019 Slightly improved aeration bilaterally with less pulmonary venous congestion. No focal pneumonia. Sub segmental atelectasis LEFT lung base. Small bilateral pleural effusions versus pleural thickening. Cardiac size: Normal. Mediastinum/Aorta: Moderate enlargement of the pulmonary arteries bilaterally. No osseous abnormality seen. XR/XR chest 1V portable [id number] IMPRESSION: 1. Mild improvement in pulmonary venous congestion. 2. Pulmonary hypertension. 3. No pneumonia.
[2019-12-17] MEDS: fluconazole 100 mg Tablet PO (08:01)
[2019-12-17] MEDS: multivitamin therapeutic Tablet 1 TAB PO (08:01)
[2019-12-17] MEDS: folic acid 1 mg Tablet PO (08:01)
[2019-12-17] MEDS: thiamine 100 mg Tablet PO (08:02)
[2019-12-17] MEDS: buPROPion XL (24 HR) 150 mg Tablet PO (08:02)
[2019-12-17] MEDS: dilTIAZem ER (24HR) 240 mg Capsule PO (08:02)
[2019-12-17] MEDS: ipratropium-albuterol 3 mL Neb INHALATION ×3 (08:45→20:19)
--- NOTE | 2019-12-17 12:08 | PM.PN ---
Subjective Subjective: Interval history: Patient continued to have significant withdrawal episodes yesterday afternoon, precluding him to move to the general medical floors, this morning is a bit anxious, minimal tremor, complains of some shortness of breath, cough, no lightheadedness, no dizziness, no nausea, no vomiting, states that he really wants Ativan when he goes home Vitals/I&O/Wt Last Vital Signs Temp 98.4 F 12/17/19 08:42 Pulse 90 12/17/19 09:00 Resp 17 12/17/19 09:00 BP 133/98 12/17/19 09:00 Pulse Ox 86 L 12/17/19 09:00 12/16/19 12/17/19 12/17/19 22:59 06:59 14:59 Intake Total 370 / 870 480 / 1350 500 / 500 Output Total 500 / 1100 600 / 600 Balance -130 / -230 480 / 250 -100 / -100 Physical Exam Const: COMMON NORMALS: no acute distress and patient oriented x3 HENMT: COMMON NORMALS: normocephalic HEAD & SCALP: normocephalic Neck/C-Spine: COMMON NORMALS: no JVD Resp: COMMON NORMALS: normal respiratory effort, No retractions and No use of accessory muscles AUSCULTATION: wheezes Cardio: COMMON NORMALS: no JVD, regular rate, regular rhythm, S1 normal heart sound present and S2 normal heart sound present RATE: regular rate RHYTHM: regular rhythm HEART SOUNDS: S1 normal heart sound present and S2 normal heart sound present GI: COMMON NORMALS: Normal to inspection, nondistended, normoactive bowel sounds present, Soft to palpation, non-tender, No hepatosplenomegaly present, no masses and no bruits PALPATION: Yes Soft to palpation and Yes No hepatosplenomegaly present Extremity: COMMON NORMALS: capillary refill normal, no clubbing, cyanosis or edema, no calf tenderness and no pedal edema Neuro: COMMON NORMALS: patient oriented x3 Psych: COMMON NORMALS: mental status grossly normal Data : 12/17/19 03:00 12/17/19 03:00 A&P Assessment and plan (1) Alcohol intoxication: Status: Acute Qualifiers: Complication of substance-induced condition: uncomplicated Qualified Code(s): F10.920 - Alcohol use, unspecified with intoxication, uncomplicated (2) Alcohol use disorder: Status: Acute (3) HIV (human immunodeficiency virus infection): Status: Acute (4) Hx pulmonary embolism: Status: Acute (5) Pulmonary hypertension: Status: Acute (6) Suicidal ideation: Status: Acute Additional A&P Information Admit to ICU #1 alcohol abuse disorder with heavy drinking in the last 24 hours. Alcohol level is currently at 197. Answering all questions, minimal tremor, no auditory hallucinations, no visual hallucinations, no tachycardia Transfer patient to general medical floors later on today if remains stable We will use CIWA protocol Thiamine folic acid and multivitamin. According to family members, patient was consuming rubbing alcohol, anything that had alcohol in it to get a fix. Currently no respiratory compromise, no complaints of dysphagia, odynophagia, no significant choking events, no aspiration events, no fevers, continue Protonix for now, consider outpatient EGD for consideration for evaluation for stricture #2 suicidal ideation. None currently, he is currently started on a 96-hour hold. Psychiatry assessment by Dr. Bang #3 HIV currently on treatment with Dovato. Continue same. Patient is also noted to be on prophylactic doses of Bactrim and fluconazole, I presume this may be for PCP prophylaxis. I do not know if he were ever diagnosed with cryptococcal infection to warrant fluconazole. We will continue same for now. #4 pulmonary hypertension Continue sildenafil that he is on already. Continue OPSUMIT and DuoNeb and budesonide inhalation. #5 history of pulmonary embolism multiple times in the past. Since 2009. Continue Eliquis for now. CTA of the chest has been ordered today shows bilateral chronic pulmonary emboli, interval involvement of the right lower lobe embolus -Patient has had one episode of GI bleed, one episode of hemoptysis in the past but but, but anticoagulation was resumed every time, -Back in June patient was on Coumadin, but was switched over to Eliquis, but a month later due to complaints of diarrhea with switch back to Coumadin, then on his admission on 08/02/2019 was switched back to Eliquis -Discussed with hematology oncology, continue Eliquis for now as patient has failed anticoagulation with Coumadin in the past #6 history of lymphoma, currently MARY #7 aspiration pneumonia Aspiration pneumonitis: Continue Advair, nebulizer treatments, add Augmentin chronic pain, continue fentanyl DVT prophylaxis Eliquis Full code. Attestations Medical Necessity Statement*: She requires hospitalization for alcohol withdrawal Coding Level of Care Code Acute Learning Support Specialist for g Fwd Diagnoses Alcohol intoxication F10.920 Complication of substance-induced condition: uncomplicated Alcohol use disorder HIV (human immunodeficiency virus infection) B20 Hx pulmonary embolism Z86.711 Pulmonary hypertension I27.20 Suicidal ideation R45.851
--- NOTE | 2019-12-17 14:33 | P.PN_ITS ---
Subjective NPU Subjective: Interval history: Flakito presents today continuing to be resistant to the idea of treatment. Functioning all mostly magical thinking about situation changing because he's really serious about it this time. I am done with drinking. 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 He has no interest in going to the neuropsychiatric unit. At this point no interest in going to a rehabilitation. We discussed how concerned we are about his prognosis given his resistance to surrender any form of aggressive treatment for his addiction. Mental Status Exam MSE Comments: This is a well-nourished, well-developed white male with limited dressing, grooming and eye contact. With the O2 cannula on. No abnormal movements except for psychomotor retardation. Cooperative with exam in mild distress. Speech was decreased rate and volume. Mood described as better, affect subdued and occasionally tearful. Thought process organized. Thought content: Patient denied any suicidal or homicidal ideations, there were no delusions reported or noted, he denied any auditory or visual hallucinations. Attention and concentration were intact, and memory was unreliable but none were formally tested. He is alert and oriented ?3. Insight and judgment are limited. impulse control is impaired. Vitals/I&O/Wt Last Vital Signs Temp 99.2 F 12/17/19 22:00 Pulse 100 12/17/19 22:00 Resp 16 12/17/19 22:00 BP 137/86 12/17/19 22:00 Pulse Ox 97 12/17/19 21:00 12/17/19 22:59 Intake Total 1280 / 2130 Output Total 1000 / 2000 Balance 280 / 130 Data NPU : 12/18/19 03:05 12/18/19 03:05 A&P Additional A&P Information (1) Suicidal ideation: (2) Alcohol intoxication: (3) Alcohol use disorder: (4) Major depressive disorder: (5) HIV (human immunodeficiency virus infection): This is a 59-year-old white male with a long history of depression and alcohol use disorder with significant self-loathing and suicidal tendencies when intoxicated and relapsing, who presents to the ICU with reports of suicidal with denial of feeling suicidal. 1. Continue current medication. 2. Continue alcohol withdrawal protocol. 3. Encourage discharge to a 30 day or more inpatient drug and alcohol treatment facility. 4. Continue sitter and 96 hour hold for the time being. 5. At this point he is resistant to inpatient psychiatric care or inpatient rehabilitation. We need to speak with family and determine if they are going to allow to come home or use some of the leverage they have force him into a different option. 6. We will continue to follow. Involuntary Hold Information 96 Hour Hold: 96 Hour Involuntary Admission: Yes 96 Hour Hold Ending Date: 08/29/19 96 Hour Hold Ending Time: 12:01 Attestations NPU Medical Necessity Statement*: N/A. Refer to primary care team for inpatient necessity. However we will continue to evaluate for need for ongoing psychiatric services versus alcohol rehab. Coding Level of Care Code Acute Dry Pan Feeder for Osmin Ordonez
--- NOTE | 2019-12-17 19:54 | PC.NURSE ---
up to bathroom with assist. patient is anxious and is very compulsive. one to one sitter at beside. patients vs wnl. Patient is resting in bed now .
[2019-12-17] MEDS: mirtazapine 15 mg Tablet PO (20:23)
[2019-12-18] VITALS (14 sets, daily range): BP systolic 113–150; BP diastolic 80–94; PULSE 92–110; RESP 6–18; TEMP 36.6–37.5; O2SAT 87–96
[2019-12-18] MEDS: LORazepam 2 mg Tablet PO ×2 (01:01→03:29)
[2019-12-18] MEDS: ipratropium-albuterol 3 mL Neb INHALATION (02:03)
[2019-12-18 03:56] LABS: Alanine Aminotransferase 19 U/L (0-41); Albumin Level 4.3 g/dL (3.5-5.2); Alkaline Phosphatase 106 IU/L (40-130); Aspartate Amino Transferase 23 U/L (0-40); Blood Urea Nitrogen 12 mg/dL (6-20); Calcium 9.9 mg/dL (8.5-10.5); Carbon Dioxide 27 mmol/L (22-29); Chloride 98 mmol/L (98-107); Globulin 3.3 g/dL (1.3-4.6); Glomerular Filtration Rate 76.7 mL/min (90-130); Glucose 117 mg/dL (65-115); Osmolality Calculated 283 mOsm/kg (285-295); Sodium 138 mmol/L (136-145); Total Bilirubin 0.5 mg/dL (0.15-1.2); Total Protein 7.6 g/dL (6.6-8.7)
[2019-12-18 03:57] LABS: Magnesium 2.3 mg/dL (1.7-2.3); Phosphorus 3.7 mg/dL (2.5-4.5)
[2019-12-18] MEDS: pantoprazole DR 40 mg Tablet PO (05:17)
--- NOTE | 2019-12-18 05:32 | PC.NURSE ---
patient has become increasingly agitated and confused through-out the night. 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 explained to patient he is under 96 hour hold and the doctor would be in to see him in the morning. patient has been on CIWA protocol and requiring ativan often this evening.
[2019-12-18 07:09] LABS: Basophils # 0.1 10^3/uL (0.0-0.1); Basophils % 0.8 %; Eosinophils # 0.1 10^3/uL (0.0-0.8); Eosinophils % 2.2 %; Hematocrit 46.9 % (42.0-52.0); Hemoglobin 15.4 g/dL (11.7-16.6); Lymphocytes # 1.5 10^3/uL (0.8-4.8); Mean Corpuscular HGB Conc 32.8 g/dL (30.0-36.0); Mean Corpuscular Hemoglobin 33.3 pg (28.0-34.0); Mean Corpuscular Volume 101.5 fL (80-94); Mean Platelet Volume 9.5 fL (7.4-10.4); Monocytes # 0.5 10^3/uL (0.2-0.9); Monocytes % 8.3 %; Neutrophils # 3.8 10^3/uL (1.8-7.7); Neutrophils % 63.4 %; Nucleated Red Blood Cells % 0 %; Platelet Count 164 10^3/cmm (130-400); Red Blood Count 4.62 10^6/uL (4.1-5.3); Red Cell Distribution Width 12.8 % (12.1-15.1)
[2019-12-18] MEDS: nicotine 21 mg Patch 1 PATCH TRANSDERMA (10:05)
[2019-12-18] MEDS: fluconazole 100 mg Tablet PO (10:06)
[2019-12-18] MEDS: multivitamin therapeutic Tablet 1 TAB PO (10:06)
[2019-12-18] MEDS: buPROPion XL (24 HR) 150 mg Tablet PO (10:06)
[2019-12-18] MEDS: folic acid 1 mg Tablet PO (10:06)
[2019-12-18] MEDS: dilTIAZem ER (24HR) 240 mg Capsule PO (10:06)
--- NOTE | 2019-12-18 10:10 | PC.NURSE ---
Morning medications were delayed due to caring for other patients. Dr Ramirez notified of delay via secure messaging.
[2019-12-18] MEDS: thiamine 100 mg Tablet PO (11:00)
--- NOTE | 2019-12-18 11:40 | PM.DCS ---
Discharge Providers Date of Admission: 12/15/19 04:03 Date of Discharge: December 18, 2019 Attending Provider at Admission: Laurie Platt MD Attending Provider at Discharge: Livan Ramirez MD Diagnoses at Discharge Discharge Diagnosis (1) Alcohol intoxication: Status: Acute Qualifiers: Complication of substance-induced condition: uncomplicated Qualified Code(s): F10.920 - Alcohol use, unspecified with intoxication, uncomplicated (2) Alcohol use disorder: Status: Acute (3) HIV (human immunodeficiency virus infection): Status: Acute (4) Hx pulmonary embolism: Status: Acute (5) Pulmonary hypertension: Status: Acute (6) Suicidal ideation: Status: Acute Reason for Visit Reason for Visit: Reason For Visit: ETOH WITHDRAWL; SI; 96 HR HOLD Hospital Course Discharge Summary: This is a 59-year-old male with a past medical history of alcohol abuse disorder, HIV currently on dovato, primary hypertension, history of pulmonary embolism, history lymphoma, chronic pain on fentanyl who presents to [facility] due to alcohol intoxication and suicidal ideation, was placed on a 96-hour hold. Patient was admitted to the intensive care unit, monitored for alcohol withdrawal, CIWA protocol, received folic acid, thiamine, IV fluids, clinically improved, 72 hours out of withdrawal window he was doing well, minimal symptoms; psychiatry was consulted, recommended inpatient rehab, patient refused. Patient was advised to abstain from alcohol, advised of outpatient alcohol support programs, follow-up with primary care provider as outpatient. For suicidal ideation, patient refused suicidal ideation during his hospital admission, seen by psychiatry as inpatient, was not deemed a risk to himself or others, was advised of inpatient rehab, patient refused, was discharged home with his mom, was advised to follow-up with [facility] in 1 to 3 days, advised if he were to have any suicidal ideation to call 911. Discharged on hydroxyzine as needed for anxiety, and his home bupropion. On admission, patient admits to drinking anything with alcohol in it, including rubbing alcohol, no swallowing difficulties, no choking, no coughing. Patient was advised to follow-up with general surgery as outpatient for consideration of a barium swallow and/or EGD to evaluate for stricture. Physical Exam Const: COMMON NORMALS: no acute distress and patient oriented x3 HENMT: COMMON NORMALS: normocephalic HEAD & SCALP: normocephalic Neck/C-Spine: COMMON NORMALS: no JVD Resp: COMMON NORMALS: normal respiratory effort, No retractions, No use of accessory muscles and clear to auscultation bilaterally AUSCULTATION: clear to auscultation bilaterally Cardio: COMMON NORMALS: no JVD, regular rate, regular rhythm, S1 normal heart sound present and S2 normal heart sound present RATE: regular rate RHYTHM: regular rhythm HEART SOUNDS: S1 normal heart sound present and S2 normal heart sound present GI: COMMON NORMALS: Normal to inspection, nondistended, normoactive bowel sounds present, Soft to palpation, non-tender, No hepatosplenomegaly present, no masses and no bruits PALPATION: Yes Soft to palpation and Yes No hepatosplenomegaly present Extremity: COMMON NORMALS: capillary refill normal, no clubbing, cyanosis or edema, no calf tenderness and no pedal edema Neuro: COMMON NORMALS: patient oriented x3 Psych: COMMON NORMALS: mental status grossly normal Discharge Data Data Completed and Pending: Completed Studies During Hospitalization Category Date Time Status CT angio chest PE protcl [id number] Urge nt Cat Scan 12/15/19 04:52 Completed XR chest 1V zane ble [id number] Routine Exams 12/17/19 07:45 Completed XR chest 1V zane ble [id number] Stat Exams 12/15/19 00:11 Completed Pending at discharge Category Date Time Status Arterial Blood Ga s Full Stat Lab 12/16/19 13:30 Results Labs from last 24 hours 12/18/19 12/18/19 12/18/19 03:05 03:05 03:05 WBC 6.0 RBC 4.62 Hgb 15.4 Hct 46.9 MCV 101.5 H MCH 33.3 MCHC 32.8 RDW 12.8 Plt Count 164 MPV 9.5 Neut % (Auto) 63.4 Lymph % (Auto) 25.0 [place] % (Auto) 8.3 Eos % (Auto) 2.2 Baso % (Auto) 0.8 Neut # (Auto) 3.8 Lymph # (Auto) 1.5 [place] # (Auto) 0.5 Eos # (Auto) 0.1 Baso # (Auto) 0.1 Nucleated RBC % (a uto) 0 Nucleated RBCs # 0.0 Sodium 138 Potassium 4.0 Chloride 98 Carbon Dioxide 27 Anion Gap 17.0 BUN 12 Creatinine 1.0 GFR Calculation 76.7 L Glucose 117 H Calculated Osmolal ity 283 L Calcium 9.9 Phosphorus 3.7 Magnesium 2.3 Total Bilirubin 0.5 AST 23 ALT 19 Alkaline Phosphata se 106 Total Protein 7.6 Albumin 4.3 Globulin 3.3 Vitals: Last Vital Signs Temp 97.8 F 12/18/19 07:33 Pulse 95 12/18/19 11:06 Resp 16 12/18/19 11:06 BP 126/85 12/18/19 11:06 Pulse Ox 92 12/18/19 08:30 Discharge Plan Discharge Patient Disposition: Home, Self-Care Condition: Stable Prescriptions: New folic acid 1 mg Tablet 1 mg PO DAILY 30 Days Qty: 30 RF: 0 hydroxyzine HCl 10 mg Tablet 10 mg PO BID PRN (Reason: Anxiety) 30 Days Qty: 30 RF: 0 Vitamin B-1 (mononitrate) 100 mg Tablet 100 mg PO DAILY 30 Days Qty: 30 RF: 0 Thera 400 mcg Tablet 1 tab PO DAILY 30 Days Qty: 30 RF: 0 Continued potassium chloride [Klor-Con M20] 20 mEq tablet,ER particles/crystals 20 meq PO BID RF: 0 fluconazole [Diflucan] 100 mg tablet 100 mg PO DAILY RF: 0 sildenafil (pulm.hypertension) 20 mg tablet 20 mg PO TID RF: 0 pantoprazole 40 mg tablet,delayed release (DR/EC) 40 mg PO QAM RF: 0 diltiazem HCl [Cartia XT] 240 mg capsule,extended release 24hr 240 mg PO DAILY Qty: 90 RF: 3 fentanyl 50 mcg/hr Patch 72 Hour 1 patch TRANSDERMAL Q72H RF: 0 Eliquis 5 mg Tablet 5 mg PO BID RF: 0 Opsumit 10 mg tablet 10 mg PO DAILY RF: 0 mirtazapine [Remeron] 15 mg tablet 15 mg PO BEDTIME RF: 0 Dovato 50-300 mg tablet 50 - 300 tab PO DAILY RF: 0 multivitamin [Multiple Vitamins] Tablet 1 tab PO DAILY RF: 0 trazodone 150 mg Tablet 300 mg PO BEDTIME RF: 0 albuterol sulfate [Ventolin HFA] 90 mcg/actuation Hfa Aerosol Inhaler 2 puff INHALATION 6XD PRN (Reason: Shortness Of Breath) RF: 0 testosterone 1.62 % (40.5 mg/2.5 gram) Gel In Packet See Rx Instructions .ROUTE .COMPLEX RF: 0 Bactrim DS 800-160 mg Tablet See Rx Instructions .ROUTE .COMPLEX RF: 0 bupropion HCl 150 mg tablet extended release 24 hr 150 mg PO DAILY RF: 0 Symbicort 80-4.5 mcg/actuation HFA aerosol inhaler 2 puff INHALATION BID RF: 0 albuterol sulfate 2.5 mg /3 mL (0.083 %) solution for nebulization 2.5 mg INHALATION Q4-5H PRN (Reason: unknown) RF: 0 Discontinued Xanax 0.25 mg Tablet 0.25 mg PO TID RF: 0 No Action (DME) Compact Compressor Nebulizer Misc See Rx Instructions .ROUTE .MEDSUPPLY Qty: 1 RF: 0 Discharge Orders: Discharge Order (Routine); Ordered 12/18/19 Ordered By: Livan Ramirez Other Ambulatory Orders: Complete Blood Count w/Auto (Routine) Timeframe: 1 Week Location: Determined by Patient Ordered By: Livan Ramirez Comprehensive Metabolic Panel (Routine) Timeframe: 1 Week Facility: [facility] - Location: Lab - Main Lab Ordered By: Livan Ramirez Referrals: Nathan Dia MD [Physician] - 1 month (consideration for barium swallow and/or EGD) [facility] [place] [Staff Physician] - 1-3 days Discharge Diet: Regular Discharge Activity: Resume usual activity Patient Instructions: Alcoholism, Alcohol Intoxication (DC), Abuse of Alcohol (DC), Suicide Prevention for Adults (DC), Anxiety (DC) Activity Restrictions/Additional Instructions: -Please abstain from alcohol consumption -If you have suicidal ideation call 911 -Please follow-up with primary care provider in 1 week -Please follow-up with general surgery in 1 month for consideration for barium swallow and/or EGD -Please use hydroxyzine as needed for anxiety -Please follow-up with [facility] in 1 to 3 days Discharge Attestations Time Spent in Discharge Care*: less than 30 min Quality Metrics Clinical Quality Measures During this hospital stay, did patient experience: None Coding Level of Care Code Acute Head Sawyer Automatic for Sueg Fwd Diagnoses Alcohol intoxication F10.920 Complication of substance-induced condition: uncomplicated Alcohol use disorder HIV (human immunodeficiency virus infection) B20 Hx pulmonary embolism Z86.711 Pulmonary hypertension I27.20 Suicidal ideation R45.851
--- NOTE | 2019-12-18 11:42 | PC.NURSE ---
Pt attempted to leave unit. Took of his oxygen and started to walk towards door that leads to the outside. Staff x2 blocked door and Mary RN called a code 10. After code was called before anystaff responded pt calmly turned around and went back to his room.
--- NOTE | 2019-12-18 13:00 | PC.NURSE ---
N96 hour hold rescinded this am. Pt discharged. Discharge instructions provided and discussed: new medications, old medications, Follow-up appts, alcohol abuse. Pt verbalized understanding. Mother, called back within minutes of discharge , very angry due to pt wanting her to stop and get him alcohol.
--- NOTE | 2019-12-18 13:38 | PC.SOCIAL ---
IMM Update Pg 2 of IMM given and explained to patent who verbalized understanding. Copy provided.
[2019-12-19 17:44] LABS: Oxygen Device BIPAP
== END 2019-12-18 12:55 | disposition home or self-care (01) | DRG 897 ==
LOC: ER 12-15 04:17 → ICU 12-15 04:17
PROVIDERS: Emergency Medicine; Admitting Provider Student in an Organized Health Care Education/Training Program; Visit Provider Family Medicine
DX: F10.229 Alcohol dependence with intoxication, unspecified (principal); B20 Human immunodeficiency virus [HIV] disease; R45.851 Suicidal ideations; F10.239 Alcohol dependence with withdrawal, unspecified; Y90.6 Blood alcohol level of 120-199 mg/100 ml; I48.91 Unspecified atrial fibrillation; I27.20 Pulmonary hypertension, unspecified; Z86.711 Personal history of pulmonary embolism; Z79.01 Long term (current) use of anticoagulants; Z85.72 Personal history of non-Hodgkin lymphomas; Z90.79 Acquired absence of other genital organ(s); F17.210 Nicotine dependence, cigarettes, uncomplicated; F32.9 Major depressive disorder, single episode, unspecified
CPT/HCPCS: 12345; 36415; 36600; 71045; 71275; 80051; 80053; 80306; 80307; 81003; 82803; 82810; 83735; 83880; 83986; 84100; 84443; 85025; 85378; 93005; 93010; 94640; 94660; 96372; 96375; 99284; J1630; J1940; J2060; J3486; J3490; J7626; Q9967

== ENCOUNTER 2019-12-18 21:30 | Emergency (ER) | payer MEDICARE, MEDICAID, SELFPAY ==
[2019-12-18 21:43] VITALS: BP 109/71; PULSE 90; RESP 18; TEMP 36.7; O2SAT 76
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
--- NOTE | 2019-12-18 22:18 | PC.NURSE ---
Patients mother and aunt decided to take patient to [facility], Patient left via wheelchair in family care.
== END 2019-12-18 22:21 | disposition left against medical advice (07) ==
PROVIDERS: Emergency Provider Emergency Medicine
DX: Z53.21 Procedure and treatment not carried out due to patient leaving prior to being seen by health care provider (principal)
CPT/HCPCS: 99281

== ENCOUNTER 2020-01-15 15:46 | Outpatient (CLI) | payer MEDICARE, MEDICAID, SELFPAY ==
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
== END 2020-01-15 15:47 | disposition home or self-care (01) ==
LOC: ONCMED 15:51
PROVIDERS: PCP Family Medicine; Visit Provider Internal Medicine Medical Oncology
DX: Z86.711 Personal history of pulmonary embolism (principal); Z85.72 Personal history of non-Hodgkin lymphomas; J44.9 Chronic obstructive pulmonary disease, unspecified; I27.20 Pulmonary hypertension, unspecified; F10.10 Alcohol abuse, uncomplicated; T21.01XD Burn of unspecified degree of chest wall, subsequent encounter; X08.8XXD Exposure to other specified smoke, fire and flames, subsequent encounter; Z79.01 Long term (current) use of anticoagulants; Z79.891 Long term (current) use of opiate analgesic
CPT/HCPCS: 99214

== ENCOUNTER 2020-01-19 21:21 | Inpatient (IN) | payer MEDICARE, MEDICAID, SELFPAY ==
[2020-01-19 21:26] VITALS: BP 133/80; PULSE 110; RESP 20; TEMP 37.2; O2SAT 91; BMI 22.8
--- NOTE | 2020-01-19 22:08 | ED_ITS ---
HPI - Alcohol General: Chief Complaint: Alcohol Stated Complaint: detox Time Seen by Provider: 01/19/20 21:57 History of Present Illness: HPI narrative: This patient is a 59-year-old male presenting with alcohol abuse. He is here with his chief librarian circulation department and friend. Patient said he has decided that he wants to go to rehab and wants to get over drinking all the time. He has been drinking at least a 24 pack of beer a day plus hard liquor for several months now. He was admitted about a month ago to the ICU for alcohol withdrawal and refused rehab at that time. He has been drinking regularly since then. His chief librarian circulation department said he threatened suicide several times yeste rday but the patient denies that now. He said he has been having abdominal pain, vomiting, diarrhea. He also has a history of HIV and is on medications for that. He uses 4 L of oxygen per minute at home for lung disease. MD complaint: alcohol intoxication and desires rehab Last drink: Just TESTING ANALYST Amount of alcohol consumed: His last drink was just prior to coming to the hospital. Chronic alcohol use: Yes Previous visits for alcohol intoxication: Yes Associated symptoms: Reports abdominal pain, depression, nausea and vomiting Review of Systems General: Reports: ROS unobtainable due to mental status (Patient was not able to provide much of a coherent history.) GI: Reports: abdominal pain, nausea and vomiting Psych: Reports: depression and loss of interest PFSH ED PFSH: Medical History Atrial fibrillation Colon polyps Diverticulitis HIV (human immunodeficiency virus infection) Hypogonadism Liver tumor Lymphoma Meningitis Orchialgia Pulmonary embolism Surgical History H/O colonoscopy H/O hemorrhoidectomy History of orchiectomy, unilateral Family History Other No pertinent family history Social History Smoking and tobacco status: current every day smoker Alcohol intake: current Household members: family Housing: House Physical Exam Const: COMMON NORMALS: no acute distress, patient oriented x3 and alert GENERAL APPEARANCE: cooperative HENMT: HEAD & SCALP: normal to inspection FACE & SINUS: normal facial exam Eye: GENERAL EYE: appearance normal, both eyes and all related structures Neck/C-Spine: COMMON NORMALS: supple, no meningeal signs and no JVD Chest: COMMONS NORMALS: normal inspection of the chest Resp: COMMON NORMALS: normal respiratory effort, No use of accessory muscles and clear to auscultation bilaterally AUSCULTATION: clear to auscultation bilaterally Cardio: COMMON NORMALS: no JVD, regular rate, regular rhythm and No murmurs present (Cardio) RATE: regular rate RHYTHM: regular rhythm GI: COMMON NORMALS: Normal to inspection, nondistended, normoactive bowel sounds present and Soft to palpation INSPECTION: Yes normal to inspection AUSCULTATION: Yes normoactive bowel sounds PALPATION: Yes Soft to palpation and Yes Tenderness to palpation present (GI) (Mild, diffuse) Back/Pelvis: COMMON NORMALS: thoracic and lumbar spine normal to inspection Extremity: COMMON NORMALS: normal to inspection Neuro: COMMON NORMALS: patient oriented x3, moves all extremities, no focal motor deficits and no sensory deficits noted SENSORIUM/ORIENTATION: Yes alert MENINGEAL SIGNS: Yes no meningeal signs Psych: COMMON NORMALS: mental status grossly normal, cooperative and normal affect Skin: COMMON NORMALS: no rashes or lesions noted and turgor normal GENERAL SKIN EXAM: no rashes or lesions noted and turgor normal Course ED course: Patient with a history of alcohol abuse. Presenting today for detox. He has been drinking all day, his usual amount, last drink just prior to arrival. He reports that he has had DTs with withdrawal before. He reports a history of seizures with withdrawal although I am not sure if that is accurate. His chief librarian circulation department says that he is spoken with the people at [facility] and there is a bed available there. I think the patient might need medical admit for withdrawal symptoms prior to going to detox. Vital Signs: Vital signs: Vital Signs Temperature 99.0 F 01/19/20 21:26 Pulse Rate 110 H 01/19/20 21:26 Respiratory Rate 20 H 01/19/20 21:26 Blood Pressure 133/80 01/19/20 21:26 Pulse Oximetry 91 01/19/20 21:26 MDM - Alcohol Lab Data: Labs: Lab Results 01/19/20 01/19/20 Range/Units 22:12 22:12 WBC 5.4 (4.0-10.0) 10^3/ uL RBC 4.33 (4.1-5.3) 10^6/u L Hgb 13.7 (11.7-16.6) g/dL Hct 41.0 L (42.0-52.0) % MCV 94.7 H (80-94) fL MCH 31.6 (28.0-34.0) pg MCHC 33.4 (30.0-36.0) g/dL RDW 12.7 (12.1-15.1) % Plt Count 191 (130-400) 10^3/c mm MPV 8.4 (7.4-10.4) fL Neut % (Auto) 40.3 % Lymph % (Auto) 47.8 % [place] % (Auto) 9.1 % Eos % (Auto) 1.9 % Baso % (Auto) 0.9 % Neut # (Auto) 2.2 (1.8-7.7) 10^3/u L Lymph # (Auto) 2.6 (0.8-4.8) 10^3/u L [place] # (Auto) 0.5 (0.2-0.9) 10^3/u L Eos # (Auto) 0.1 (0.0-0.8) 10^3/u L Baso # (Auto) 0.1 (0.0-0.1) 10^3/u L Nucleated RBC % (a uto) 0 % Nucleated RBCs # 0.0 /100WBC Sodium 139 (136-145) mmol/L Potassium 3.3 L (3.5-5.1) mmol/L Chloride 99 (98-107) mmol/L Carbon Dioxide 26 (22-29) mmol/L Anion Gap 17.3 (5-19) BUN 4 L (6-20) mg/dL Creatinine 0.6 L (0.7-1.2) mg/dL GFR Calculation 138.4 H (90-130) mL/min Glucose 106 (65-115) mg/dL Calculated Osmolal ity 284 L (285-295) mOsm/k g Calcium 8.5 (8.5-10.5) mg/dL Salicylates < 0.3 L (3-10) mg/dL Acetaminophen < 5.0 L (10-30) ug/mL Ethyl Alcohol 264 H (0-10) mg/dL Discharge Plan Discharge Prescriptions: No Action potassium chloride [Klor-Con M20] 20 mEq tablet,ER particles/crystals 20 meq PO BID RF: 0 fluconazole [Diflucan] 100 mg tablet 100 mg PO DAILY RF: 0 sildenafil (pulm.hypertension) 20 mg tablet 20 mg PO TID RF: 0 pantoprazole 40 mg tablet,delayed release (DR/EC) 40 mg PO QAM RF: 0 diltiazem HCl [Cartia XT] 240 mg capsule,extended release 24hr 240 mg PO DAILY Qty: 90 RF: 3 fentanyl 50 mcg/hr Patch 72 Hour 1 patch TRANSDERMAL Q72H RF: 0 Eliquis 5 mg Tablet 5 mg PO BID RF: 0 Opsumit 10 mg tablet 10 mg PO DAILY RF: 0 mirtazapine [Remeron] 15 mg tablet 15 mg PO BEDTIME RF: 0 Dovato 50-300 mg tablet 50 - 300 tab PO DAILY RF: 0 multivitamin [Multiple Vitamins] Tablet 1 tab PO DAILY RF: 0 trazodone 150 mg Tablet 300 mg PO BEDTIME RF: 0 albuterol sulfate [Ventolin HFA] 90 mcg/actuation Hfa Aerosol Inhaler 2 puff INHALATION 6XD PRN (Reason: Shortness Of Breath) RF: 0 testosterone 1.62 % (40.5 mg/2.5 gram) Gel In Packet See Rx Instructions .ROUTE .COMPLEX RF: 0 (DME) Compact Compressor Nebulizer Misc See Rx Instructions .ROUTE .MEDSUPPLY Qty: 1 RF: 0 Bactrim DS 800-160 mg Tablet See Rx Instructions .ROUTE .COMPLEX RF: 0 bupropion HCl 150 mg tablet extended release 24 hr 150 mg PO DAILY RF: 0 Symbicort 80-4.5 mcg/actuation HFA aerosol inhaler 2 puff INHALATION BID RF: 0 albuterol sulfate 2.5 mg /3 mL (0.083 %) solution for nebulization 2.5 mg INHALATION Q4-5H PRN (Reason: unknown) RF: 0 Coding Level of Care Code ED Machine Installer for Chg Fwd Exam Comprehensive
[2020-01-19 22:17] LABS: Basophils # 0.1 10^3/uL (0.0-0.1); Basophils % 0.9 %; Eosinophils # 0.1 10^3/uL (0.0-0.8); Eosinophils % 1.9 %; Hemoglobin 13.7 g/dL (11.7-16.6); Lymphocytes # 2.6 10^3/uL (0.8-4.8); Lymphocytes % 47.8 %; Mean Corpuscular HGB Conc 33.4 g/dL (30.0-36.0); Mean Corpuscular Hemoglobin 31.6 pg (28.0-34.0); Mean Corpuscular Volume 94.7 fL (80-94); Mean Platelet Volume 8.4 fL (7.4-10.4); Monocytes # 0.5 10^3/uL (0.2-0.9); Monocytes % 9.1 %; Neutrophils # 2.2 10^3/uL (1.8-7.7); Neutrophils % 40.3 %; Nucleated Red Blood Cells % 0 %; Platelet Count 191 10^3/cmm (130-400); Red Blood Count 4.33 10^6/uL (4.1-5.3); Red Cell Distribution Width 12.7 % (12.1-15.1); White Blood Count 5.4 10^3/uL (4.0-10.0)
[2020-01-19] MEDS: LORazepam 2 mg/mL INJ 1 mL IVP (22:27)
[2020-01-19 22:32] LABS: Alcohol Level 264 mg/dL (0-10); Anion Gap 17.3 (5-19); Blood Urea Nitrogen 4 mg/dL (6-20); Calcium 8.5 mg/dL (8.5-10.5); Carbon Dioxide 26 mmol/L (22-29); Chloride 99 mmol/L (98-107); Glomerular Filtration Rate 138.4 mL/min (90-130); Glucose 106 mg/dL (65-115); Osmolality Calculated 284 mOsm/kg (285-295); Potassium 3.3 mmol/L (3.5-5.1); Sodium 139 mmol/L (136-145)
[2020-01-19] MEDS: sodium chloride 0.9% 1,000 ML 999 ML IV (22:32)
[2020-01-19 22:34] LABS: Acetaminophen < 5.0 ug/mL (10-30); Salicylate < 0.3 mg/dL (3-10)
--- NOTE | 2020-01-19 23:19 | PM.HP ---
Providers/Chief Complaint Admitting Physician: Kenny Osborn MD Primary Care Provider: Rasheed Spivey MD Chief Complaint: shaky History of Present Illness Flakito Almanzar is a 59 year old male who has history of atrial fibrillation, pulmonary embolism, lymphoma, chronic pain being managed with fentanyl, chronic anticoagulation, HIV currently on dovato, suicidal ideation in the past, major depressive disorder coming in for alcohol withdrawal symptoms. He was recently discharged on 12/17 after psych evaluation when he was on 96-hour hold, at that point patient endorsed to drinking anything which includes alcohol in it including rubbing alcohol, he was asked to follow-up with general surgery for EGD for his dysphagia. Today he was brought in by his b2b managed service sales exec. Certified Tumor Registrar told on ER staff that he checked on him today. He was really anxious, diaphoretic and was going through alcohol withdrawal. Certified Tumor Registrar endorsed that Mr. Almanzar is really trying hard to quit alcohol and needs help. He got 2 mg of Ativan in the ER by the time I went to see him he was not really cooperative for the interview and evaluation, a systolic blood pressure was in 90s, he was diaphoretic, somnolent. Review of Systems General: Reports: ROS unobtainable due to medical condition (Alcohol withdrawal, noncooperative) Medications/Allergies Home Medications Medication Instructions Recorded Confirmed Last Taken Type fluconazole 100 mg tablet 100 mg PO DAILY tab 07/21/19 12/11/19 12/10/19 History pantoprazole 40 mg tablet,delayed 40 mg PO QAM 07/21/19 12/11/19 12/10/19 History release potassium chloride 20 mEq 20 meq PO BID 07/21/19 12/11/19 12/10/19 History tablet,extended release(part/cryst) sildenafil (pulm.hypertension) 20 20 mg PO TID 07/21/19 12/11/19 12/10/19 History mg tablet Eliquis 5 mg PO BID 08/02/19 12/11/19 12/10/19 History fentanyl 1 patch TRANSDERMAL Q72H 08/02/19 12/11/19 12/10/19 History Dovato 50 - 300 tab PO DAILY 08/05/19 12/11/19 12/10/19 History Opsumit 10 mg PO DAILY 08/05/19 12/11/19 12/10/19 History mirtazapine [Remeron] 15 mg PO BEDTIME 08/05/19 12/11/19 12/09/19 History nebulizers [Compact Compressor #1 each 09/01/19 12/11/19 Unknown Rx Nebulizer] diltiazem HCl 240 mg 240 mg PO DAILY #90 cap 11/04/19 12/11/19 12/10/19 Rx capsule,extended release 24 hr albuterol sulfate [Ventolin HFA] 2 puff INHALATION 6XD PRN 12/10/19 12/11/19 12/10/19 History multivitamin [Multiple Vitamins] 1 tab PO DAILY 12/10/19 12/11/19 12/10/19 History testosterone See Rx Instructions .ROUTE .COMPLEX 12/10/19 12/11/19 12/10/19 History trazodone 300 mg PO BEDTIME 12/10/19 12/11/19 12/10/19 History Bactrim DS See Rx Instructions .ROUTE .COMPLEX 12/11/19 12/11/19 12/08/19 History Symbicort 2 puff INHALATION BID 12/11/19 12/11/19 Unknown History albuterol sulfate 2.5 mg INHALATION Q4-5H PRN 12/11/19 12/11/19 12/10/19 History bupropion HCl 150 mg PO DAILY 12/11/19 12/11/19 12/09/19 History Allergies Allergy/AdvReac Type Severity Reaction Status Date / Time No Known Allergies Allergy Verified 09/01/19 08:52 PFSH Acute PFSH: Medical History (Updated 01/20/20 @ 00:22 by Kenny Osborn MD) Anorexia Atrial fibrillation Colon polyps COPD (chronic obstructive pulmonary disease) Severe COPD Diverticulitis GI bleed Was taken off Coumadin for a month in 2015 after a bleeding gastric ulcer, currently on Eliquis HIV (human immunodeficiency virus infection) Hypogonadism Liver tumor Lymphoma 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 No evidence of recurrence, currently getting RESEARCH PHYSICIAN prophylaxis with intrathecal methotrexate with prophylactic radiation to right testicle, CHOP treatment Meningitis Orchialgia Pulmonary embolism DVT of right leg, 2009 Anticoagulated with Coumadin Pulmonary hypertension After PE Surgical History H/O colonoscopy H/O hemorrhoidectomy History of orchiectomy, unilateral Family History Other No pertinent family history Social History (Updated 01/20/20 @ 00:22 by Kenny Osborn MD) Smoking and tobacco status: current every day smoker Alcohol intake: current Alcohol use comment: 1 pint of vodka and occasionally beer almost every day Household members: family Housing: House Vitals/I&O/Wt Last Vital Signs Temp 99.0 F 01/19/20 21:26 Pulse 110 H 01/19/20 21:26 Resp 20 H 01/19/20 21:26 BP 133/80 01/19/20 21: Pulse Ox 91 01/19/20 21:26 Weight last 48 hrs Weight 76.204 kg Physical Exam Narrative: EXAM NARRATIVE: Head to toe examination Patient is very somnolent after getting Ativan Able to open his eyes on verbal commands, Neurologically I am not able to assess him completely however he is able to move his extremities without any discomfort Noticed diaphoresis No active tremors Abdomen distended, obesity, no active tenderness S1, S2 sinus tachycardia No CVA tenderness Poor dental hygiene CIWA 6-8 Somnolent Data : 01/19/20 22:12 01/19/20 22:12 A&P Assessment and plan (1) Alcohol intoxication: Status: Acute (2) Alcohol use disorder: Status: Acute (3) Major depressive disorder: Status: Acute (4) HIV (human immunodeficiency virus infection): Status: Acute Additional A&P Information Alcohol intoxication History of heavy alcohol abuse, drinks vodka 1 pint every day, before coming to the hospital he had beer Was brought in by his b2b managed service sales exec who endorsed that he is trying his best to quit alcohol and agreeable to go through alcohol detox Current alcohol level 264 CIWA Continue thiamine folic acid Admission to ICU Hypokalemia: Repleted Anorexia with malnourishment Cardiac diet with supplements Continue mirtazapine History of PE and subsequent pulmonary hypertension Continue Eliquis Large B-cell lymphoma Following with Dr. Morejon for CHOP therapy No recurrence of cancer Severe COPD No active exacerbation Full code Attestations Medical Necessity Statement*: Anticipating stay in the hospital cross more than 2 midnights currently need ICU for alcohol withdrawal, patient is intoxicated with alcohol at the moment anticipating severe withdrawal in 48 hours Time Spent in Patient Care: (>than 50% of time spent in counselling and/or direct pt care on unit). 40mins Coding Level of Care Code Acute Straightening Press Operator for Osmin Falcond Diagnoses Alcohol intoxication F10.929 Alcohol use disorder Major depressive disorder F32.9 HIV (human immunodeficiency virus infection) B20
[2020-01-19 23:20] LABS: Amphetamines Screen Urine Negative (Negative); Barbiturates Screen Urine Negative (Negative); Benzodiazepines Screen Urine Negative (Negative); Cocaine Screen Urine Negative (Negative); Opiate Screen Urine Negative (Negative); PCP Screen Urine Negative (Negative); THC Screen Urine Negative (Negative)
[2020-01-19 23:33] VITALS: BP 94/67; PULSE 92; RESP 20; TEMP 36.7
[2020-01-20] VITALS (21 sets, daily range): BP systolic 69–142; BP diastolic 44–99; PULSE 79–111; RESP 13–36; TEMP 36.3–37.2; O2SAT 85–97
[2020-01-20] MEDS: sodium chloride 0.9% 1,000 ML 999 ML IV ×2 (00:45→02:27)
[2020-01-20] MEDS: sodium chlor 0.9% + KCl 20 mEq 20 MEQ/1,000 ML BAG 100 MEQ IV (00:46)
[2020-01-20 01:19] LABS: Magnesium 2.2 mg/dL (1.7-2.3); Phosphorus 3.6 mg/dL (2.5-4.5)
[2020-01-20 04:19] LABS: Anion Gap 15.1 (5-19); Blood Urea Nitrogen 4 mg/dL (6-20); Calcium 7.6 mg/dL (8.5-10.5); Carbon Dioxide 24 mmol/L (22-29); Chloride 107 mmol/L (98-107); Glomerular Filtration Rate 170.8 mL/min (90-130); Glucose 79 mg/dL (65-115); Osmolality Calculated 291 mOsm/kg (285-295); Potassium 3.1 mmol/L (3.5-5.1); Sodium 143 mmol/L (136-145)
[2020-01-20 04:30] LABS: Lipase 29 U/L (13-60)
[2020-01-20] MEDS: LORazepam 2 mg/mL INJ 1 mL IVP ×3 (04:49→13:09)
[2020-01-20] MEDS: thiamine 100 mg Tablet PO (08:51)
[2020-01-20] MEDS: multivitamin therapeutic Tablet 1 TAB PO (08:51)
[2020-01-20] MEDS: folic acid 1 mg Tablet PO (08:51)
--- NOTE | 2020-01-20 14:22 | PC.NURSE ---
AMA pt requested to leave AMA and pulling wires off. IV removed before patient was able to pull it out. cath tip intact. Dr. Fung notified and met staff in the hallway with the patient. The patient refused to stay regardless of what the doctor had to say. Pt escorted out to personal vehicle driven by the mother.
[2020-01-20] MEDS: folic acid 1 MG, multivitamin inj 10 ML, thiamine 100 MG in sodium chloride 0.9% 1,000 ML 252.8 MG IV (14:44)
--- NOTE | 2020-01-20 15:48 | PM.PN ---
Subjective Subjective: Interval history: Admitted overnight. H&P and labs noted. On examination patient is sitting comfortably in bed. Having multiple episodes of diarrhea since last night. He states diarrhea has started 2 months ago has been on and off. With last episode a week ago. Denies of abdominal pain, nausea, vomiting. Complains of mild headache, dizziness. Since admission he is received 4 mg of Ativan overall. Vitals/I&O/Wt Last Vital Signs Temp 98.9 F 01/20/20 10:13 Pulse 100 01/20/20 14:00 Resp 16 01/20/20 14:00 BP 140/99 01/20/20 14:00 Pulse Ox 95 01/20/20 14:00 01/20/20 01/20/20 01/20/20 06:59 14:59 22:59 Intake Total 1120 / 1120 840 / 840 Output Total 850 / 850 Balance 1120 / 1120 -10 / -10 Weight last 48 hrs Weight 76.204 kg Physical Exam Narrative: EXAM NARRATIVE: General: No acute distress, AO x3, anxious HEENT: PERRLA, pupils bilaterally equal and reactive Chest: Normal vesicular breath sounds, no added sounds, equal good air entry bilaterally CVS: S1-S2 regular, pansystolic murmur present in the fourth intercostal space, retrosternal, no tachycardia, no gallops, no rubs Abdomen: Soft, nontender, no organomegaly, bowel sounds present Neuro: No focal deficits, no facial deformity, AO x3, power 5/5 in all limbs Data : 01/19/20 22:12 01/20/20 03:04 Micro: Microbiology 01/20/20 12:30 Stool Lactoferrin - Final Stool Occult Blood (FIT) - Final A&P Assessment and plan (1) Alcohol intoxication: Status: Acute (2) Alcohol use disorder: Status: Acute (3) Major depressive disorder: Status: Acute (4) HIV (human immunodeficiency virus infection): Status: Acute (5) Pulmonary hypertension: Status: Acute (6) Hx pulmonary embolism: Status: Acute (7) Atrial fibrillation: Status: Acute Additional A&P Information Alcohol intoxication: History of heavy alcohol abuse, drinks vodka 1 pint every day, before coming to the hospital he had beer. Was brought in by his sustainable landscape architect who endorsed that he is trying his best to quit alcohol and agreeable to go through alcohol detox Current alcohol level 264 Ativan as per CIWA score. We will start him on Librium 25 every 8 hourly with first dose right now. Banana bag. Normal saline at 100 cc/h Folic acid and oral thiamine. Diarrhea: Given the multiple episodes in last 2 months cannot rule out infectious source. Check stool studies, isospora as patient is HIV positive. If C. difficile is negative can give Imodium. IV hydration as above. Pulmonary HTN/ Pulmonary embolism: Last ECHO March 2019 shows an EF of 65% with grade 1 diastolic dysfunction with mild pulmonary hypertension with RVSP of 40. Continue home dose of Eliquis 5 mg p.o. twice daily. Continue Symbicort, sildenafil Oxygen supplementation keeping saturation 92%. At home patient is on 4 L nasal cannula. HIV: Continue home dose of Dovato, OPSUMIT, Bactrim and fluconazole prophylaxis. We will check HIV viral load and CD4 count. Because patient is been having recurrent diarrheas. Afib: Restart home dose of Cardizem. Large B-cell lymphoma Following with Dr. Morejon for CHOP therapy No recurrence of cancer Severe COPD No active exacerbation Continue chronic medication like Remeron, bupropion. Full code Cardiac diet. Eliquis will help with DVT prophylaxis as well Patient is interested in alcohol rehab. If stool studies are negative for C. difficile we will over and discharge the patient accordingly. Attestations Medical Necessity Statement*: Alcohol withdrawal, diarrhea Time Spent in Patient Care: Greater than 35 minutes (>than 50% of time spent in counselling and/or direct pt care on unit). Coding Level of Care Code Acute Information Assurance Analyst for Osmin Ordonez Diagnoses Alcohol intoxication F10.929 Alcohol use disorder Major depressive disorder F32.9 HIV (human immunodeficiency virus infection) B20 Pulmonary hypertension I27.20 Hx pulmonary embolism Z86.711 Atrial fibrillation I48.91
== END 2020-01-20 14:22 | disposition left against medical advice (07) | DRG 894 ==
LOC: ER 21:57 → ICU 23:06
PROVIDERS: Emergency Medicine; Admitting Provider Internal Medicine; Emergency Provider Emergency Medicine; PCP Family Medicine; Visit Provider Student in an Organized Health Care Education/Training Program
DX: F10.221 Alcohol dependence with intoxication delirium (principal); B20 Human immunodeficiency virus [HIV] disease; C83.30 Diffuse large B-cell lymphoma, unspecified site; F32.9 Major depressive disorder, single episode, unspecified; I27.20 Pulmonary hypertension, unspecified; Z86.711 Personal history of pulmonary embolism; I48.91 Unspecified atrial fibrillation; Y90.8 Blood alcohol level of 240 mg/100 ml or more; R19.7 Diarrhea, unspecified; J44.9 Chronic obstructive pulmonary disease, unspecified; Z53.29 Procedure and treatment not carried out because of patient's decision for other reasons; Z79.899 Other long term (current) drug therapy; G89.29 Other chronic pain; Z79.01 Long term (current) use of anticoagulants; E29.1 Testicular hypofunction; F17.210 Nicotine dependence, cigarettes, uncomplicated; E87.6 Hypokalemia
CPT/HCPCS: 12345; 36415; 80048; 80306; 80307; 82274; 83630; 83690; 83735; 84100; 85025; 87327; 87493; 87506; 96372; 96375; 99283; J2060; J3411; J3490; J7030

== ENCOUNTER 2020-01-20 21:16 | Inpatient (IN) | payer MEDICARE, MEDICAID, SELFPAY ==
[2020-01-20] VITALS (7 sets, daily range): BP systolic 101–139; BP diastolic 69–80; PULSE 109–121; RESP 12–24; TEMP 36.2; O2SAT 71–99; BMI 23.0
--- NOTE | 2020-01-20 21:18 | CTR_ITS ---
PROCEDURE INFORMATION: Exam: CT Head Without Contrast Exam date and time: 01/20/2020 9:20 PM Age: 59 years old Clinical indication: Altered mental status/memory loss; Patient HX: PT ETOH and intubated TECHNIQUE: Imaging protocol: Computed tomography of the head without contrast. Radiation optimization: All CT scans at this facility use at least one of these dose optimization techniques: automated exposure control; mA and/or kV adjustment per patient size (includes targeted exams where dose is matched to clinical indication); or iterative reconstruction. COMPARISON: CT head wo con* [id number] 08/23/2019 9:15 PM RADIATION DOSE METRICS: Total DLP (mGy-cm): 871.86 FINDINGS: Brain: Normal. No hemorrhage. Unremarkable white matter. No mass effect. Ventricles: Normal. No ventriculomegaly. Bones/joints: Unremarkable. No acute fracture. Sinuses: There is patchy opacification of the sinuses. Mastoid air cells: Visualized mastoid air cells are well aerated. Soft tissues: Unremarkable. CT/CT head wo con* [id number] IMPRESSION: No acute intracranial abnormality. Radiation Dose CTDIVOL = (mGy): DLP = 871.86 (mGy-cm)
--- NOTE | 2020-01-20 21:25 | XR_ITS ---
WS: [id number] CHEST XRAY TECHNIQUE: Portable chest. CLINICAL INFORMATION: sob COMPARISON: December 17, 2019 FINDINGS: Heart: Cardiomegaly. Lungs: Moderate chronic emphysematous changes. Patchy interstitial and airspace infiltrates more prom inent in the right lower lobe. Recommend correlation for pneumonia. Subsegmental atelectasis left low er lobe. Bones: Normal visualized bony structures. XR/XR chest 1V portable [id number] IMPRESSION: 1. Progressed patchy interstitial and airspace infiltrates worse in the right lower lobe. Recommend correlation for pneumonia. 2. Stable cardiomegaly.
--- NOTE | 2020-01-20 21:25 | W.ED.ALCOHOL ---
HPI - Alcohol General: Chief Complaint: Alcohol Stated Complaint: ETOH/AMS Time Seen by Provider: 01/20/20 21:18 Source: patient and EMS Mode of arrival: EMS Limitations: altered mental status History of Present Illness: HPI narrative: Patient presents with EMS with alcohol intoxication. Patient signed out AMA from IC this morning. Patient is quite intoxicated and will not follow any commands here keeps try to get a bed. He is in respiratory distress and is currently 80% on 6 L. Patient unable to give any history currently as he is quite altered from being intoxicated. Patient was found in the floor per EMS by family. 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 No evidence of recurrence, currently getting [employer] CLE[employer]ENDANT prophylaxis with intrathecal methotrexate with prophylactic radiation to right testicle, CHOP treatment Meningitis Orchialgia Pulmonary embolism DVT of right leg, 2009 Anticoagulated with Coumadin Pulmonary hypertension After PE Surgical History H/O colonoscopy H/O hemorrhoidectomy History of orchiectomy, unilateral Family History Other No pertinent family history Social History (Updated 01/20/20 @ 00:22 by Kenny Osborn MD) Smoking and tobacco status: current every day smoker Alcohol intake: current Household members: family Housing: House Physical Exam Const: COMMON NORMALS: no acute distress EXAM LIMITATIONS: altered mental status GENERAL APPEARANCE: disheveled and odor of alcohol detected HENMT: COMMON NORMALS: normocephalic and atraumatic HEAD & SCALP: normocephalic and atraumatic Eye: COMMON NORMALS: Equal, round and reactive pupils present and EOMs intact bilaterally PUPIL: Yes Equal, round and reactive pupils present Neck/C-Spine: COMMON NORMALS: full ROM and supple Chest: COMMONS NORMALS: normal inspection of the chest and normal palpation of entire chest wall Resp: COMMON NORMALS: normal respiratory effort, No retractions, No use of accessory muscles and clear to auscultation bilaterally AUSCULTATION: clear to auscultation bilaterally Cardio: COMMON NORMALS: regular rate, regular rhythm and No murmurs present (Cardio) RATE: regular rate RHYTHM: regular rhythm GI: COMMON NORMALS: Normal to inspection, nondistended, normoactive bowel sounds present, Soft to palpation, non-tender and no masses PALPATION: Yes Soft to palpation Extremity: COMMON NORMALS: normal to inspection and full ROM Neuro: COMMON NORMALS: moves all extremities and no focal motor deficits Psych: OTHER: intoxicated Skin: COMMON NORMALS: no rashes or lesions noted and no wounds GENERAL SKIN EXAM: no rashes or lesions noted Procedures Intubation sedative: Etomidate Mg Given: 20 paralytic: Rocuronium Mg Given: 100 Laryngoscope: fiber optic video scope ET Tube Size: 8 Tube Secured Depth (cm): 26 Tube Secured Location: teeth Tube Placement Confirmation: visualized tube passing through cords, equal breath sounds bilaterally, no breath sounds over epigastrium and confirmation by capnometry Patient Tolerated Procedure: well Intubation Complications: none Course Vital Signs: Vital signs: Vital Signs Temperature 97.1 F L 01/20/20 21:18 Pulse Rate 114 H 01/20/20 23:30 Respiratory Rate 16 01/20/20 23:30 Blood Pressure 111/74 01/20/20 23:30 Pulse Oximetry 95 01/20/20 23:30 MDM - Alcohol MDM Narrative: Medical decision making narrative: Patient presents with respiratory distress along with alcohol intoxication. When patient first arrived he was requiring 8 L of oxygen to keep his oxygen sats above 90% and he was in quite a bit of distress. Patient was combative intoxicated and kept repeating his oxygen off. Patient had to be intubated as he kept becoming hypoxic. X-ray appears to be a possible right lower lobe pneumonia and patient started on IV antibiotics. CT showed no signs of pulmonary embolism. CT head is normal. I spoke to hospitalist will admit to the ICU. Patient has been stable while in the ER. Lab Data: Labs: Lab Results 01/20/20 01/20/20 01/20/20 Range/Units 21:01 21:02 21:02 WBC 7.4 (4.0-10.0) 10^3/ uL RBC 4.27 (4.1-5.3) 10^6/u L Hgb 13.4 (11.7-16.6) g/dL Hct 41.4 L (42.0-52.0) % MCV 97.0 H (80-94) fL MCH 31.4 (28.0-34.0) pg MCHC 32.4 (30.0-36.0) g/dL RDW 12.7 (12.1-15.1) % Plt Count 181 (130-400) 10^3/c mm MPV 8.9 (7.4-10.4) fL Neut % (Auto) 55.8 % Lymph % (Auto) 35.3 % Mcintosh % (Auto) 7.8 % Eos % (Auto) 0.4 % Baso % (Auto) 0.7 % Neut # (Auto) 4.1 (1.8-7.7) 10^3/u L Lymph # (Auto) 2.6 (0.8-4.8) 10^3/u L Mcintosh # (Auto) 0.6 (0.2-0.9) 10^3/u L Eos # (Auto) 0.0 (0.0-0.8) 10^3/u L Baso # (Auto) 0.1 (0.0-0.1) 10^3/u L Nucleated RBC % (a uto) 0 % Nucleated RBCs # 0.0 /100WBC Specimen Type Sample Site ABG pH (7.35-7.45) ABG pCO2 (35-45) mmHg ABG pO2 (80.0-100.0) mmH g ABG HCO3 (22-26) mmol/L ABG Base Excess (-2.0-2.0) mmol/ L Jean-Paul Test Hematocrit (42-52) % Respiration Rate % O2 Delivery Device FiO2 % PEEP cmH20 Transport Truck Driver ID Sodium 141 (136-145) mmol/L Potassium 2.9 L (3.5-5.1) mmol/L Chloride 103 (98-107) mmol/L Carbon Dioxide 21 L (22-29) mmol/L Anion Gap 19.9 H (5-19) BUN 5 L (6-20) mg/dL Creatinine 0.5 L (0.7-1.2) mg/dL GFR Calculation 170.8 H (90-130) mL/min Glucose 94 (65-115) mg/dL Calculated Osmolal ity 287 (285-295) mOsm/k g Calcium 8.5 (8.5-10.5) mg/dL Magnesium 2.1 (1.7-2.3) mg/dL Total Bilirubin 0.4 (0.15-1.2) mg/dL AST 37 (0-40) U/L ALT 19 (0-41) U/L Alkaline Phosphata se 117 (40-130) IU/L Troponin T Baselin e (0-15) ng/L Troponin T 120 Min lili (0-15) ng/L NT-Pro-B Natriuret Pep (0-125) pg/mL Total Protein 6.5 L (6.6-8.7) g/dL Albumin 4.1 (3.5-5.2) g/dL Globulin 2.4 (1.3-4.6) g/dL Salicylates < 0.3 L (3-10) mg/dL Urine Opiates Scre en (Negative) ng/mL Acetaminophen < 5.0 L (10-30) ug/mL Ur Barbiturates Sc reen (Negative) ng/mL Ur Phencyclidine S crn (Negative) ng/mL Ur Amphetamines Sc reen (Negative) ng/mL U Benzodiazepines Scrn (Negative) ng/mL Urine Cocaine Scre en (Negative) ng/mL U Marijuana (THC) Screen (Negative) ng/mL Ethyl Alcohol 263 H (0-10) mg/dL 01/20/20 01/20/20 01/20/20 Range/Units 21:02 21:02 22:10 WBC (4.0-10.0) 10^3/ uL RBC (4.1-5.3) 10^6/u L Hgb (11.7-16.6) g/dL Hct (42.0-52.0) % MCV (80-94) fL MCH (28.0-34.0) pg MCHC (30.0-36.0) g/dL RDW (12.1-15.1) % Plt Count (130-400) 10^3/c mm MPV (7.4-10.4) fL Neut % (Auto) % Lymph % (Auto) % Mcintosh % (Auto) % Eos % (Auto) % Baso % (Auto) % Neut # (Auto) (1.8-7.7) 10^3/u L Lymph # (Auto) (0.8-4.8) 10^3/u L Mcintosh # (Auto) (0.2-0.9) 10^3/u L Eos # (Auto) (0.0-0.8) 10^3/u L Baso # (Auto) (0.0-0.1) 10^3/u L Nucleated RBC % (a uto) % Nucleated RBCs # /100WBC Specimen Type Arterial Sample Site Brachial, right ABG pH 7.27 L (7.35-7.45) ABG pCO2 50.1 H (35-45) mmHg ABG pO2 97.4 (80.0-100.0) mmH g ABG HCO3 22.8 (22-26) mmol/L ABG Base Excess -4.5 L (-2.0-2.0) mmol/ L Jean-Paul Test Pos Hematocrit 40.3 L (42-52) % Respiration Rate 12.0 % O2 Delivery Device Vent FiO2 60.0 % PEEP 10.0 cmH20 Transport Truck Driver ID dilki Sodium (136-145) mmol/L Potassium (3.5-5.1) mmol/L Chloride (98-107) mmol/L Carbon Dioxide (22-29) mmol/L Anion Gap (5-19) BUN (6-20) mg/dL Creatinine (0.7-1.2) mg/dL GFR Calculation (90-130) mL/min Glucose (65-115) mg/dL Calculated Osmolal ity (285-295) mOsm/k g Calcium (8.5-10.5) mg/dL Magnesium (1.7-2.3) mg/dL Total Bilirubin (0.15-1.2) mg/dL AST (0-40) U/L ALT (0-41) U/L Alkaline Phosphata se (40-130) IU/L Troponin T Baselin e 31 H (0-15) ng/L Troponin T 120 Min lili (0-15) ng/L NT-Pro-B Natriuret Pep 237 H (0-125) pg/mL Total Protein (6.6-8.7) g/dL Albumin (3.5-5.2) g/dL Globulin (1.3-4.6) g/dL Salicylates (3-10) mg/dL Urine Opiates Scre en (Negative) ng/mL Acetaminophen (10-30) ug/mL Ur Barbiturates Sc reen (Negative) ng/mL Ur Phencyclidine S crn (Negative) ng/mL Ur Amphetamines Sc reen (Negative) ng/mL U Benzodiazepines Scrn (Negative) ng/mL Urine Cocaine Scre en (Negative) ng/mL U Marijuana (THC) Screen (Negative) ng/mL Ethyl Alcohol (0-10) mg/dL 01/20/20 01/20/20 Range/Units 22:40 23:14 WBC (4.0-10.0) 10^3/ uL RBC (4.1-5.3) 10^6/u L Hgb (11.7-16.6) g/dL Hct (42.0-52.0) % MCV (80-94) fL MCH (28.0-34.0) pg MCHC (30.0-36.0) g/dL RDW (12.1-15.1) % Plt Count (130-400) 10^3/c mm MPV (7.4-10.4) fL Neut % (Auto) % Lymph % (Auto) % Mcintosh % (Auto) % Eos % (Auto) % Baso % (Auto) % Neut # (Auto) (1.8-7.7) 10^3/u L Lymph # (Auto) (0.8-4.8) 10^3/u L Mcintosh # (Auto) (0.2-0.9) 10^3/u L Eos # (Auto) (0.0-0.8) 10^3/u L Baso # (Auto) (0.0-0.1) 10^3/u L Nucleated RBC % (a uto) % Nucleated RBCs # /100WBC Specimen Type Sample Site ABG pH (7.35-7.45) ABG pCO2 (35-45) mmHg ABG pO2 (80.0-100.0) mmH g ABG HCO3 (22-26) mmol/L ABG Base Excess (-2.0-2.0) mmol/ L Jean-Paul Test Hematocrit (42-52) % Respiration Rate % O2 Delivery Device FiO2 % PEEP cmH20 Transport Truck Driver ID Sodium (136-145) mmol/L Potassium (3.5-5.1) mmol/L Chloride (98-107) mmol/L Carbon Dioxide (22-29) mmol/L Anion Gap (5-19) BUN (6-20) mg/dL Creatinine (0.7-1.2) mg/dL GFR Calculation (90-130) mL/min Glucose (65-115) mg/dL Calculated Osmolal ity (285-295) mOsm/k g Calcium (8.5-10.5) mg/dL Magnesium (1.7-2.3) mg/dL Total Bilirubin (0.15-1.2) mg/dL AST (0-40) U/L ALT (0-41) U/L Alkaline Phosphata se (40-130) IU/L Troponin T Baselin e (0-15) ng/L Troponin T 120 Min lili 24.65 H (0-15) ng/L NT-Pro-B Natriuret Pep (0-125) pg/mL Total Protein (6.6-8.7) g/dL Albumin (3.5-5.2) g/dL Globulin (1.3-4.6) g/dL Salicylates (3-10) mg/dL Urine Opiates Scre en Negative (Negative) ng/mL Acetaminophen (10-30) ug/mL Ur Barbiturates Sc reen Negative (Negative) ng/mL Ur Phencyclidine S crn Negative (Negative) ng/mL Ur Amphetamines Sc reen Negative (Negative) ng/mL U Benzodiazepines Scrn Negative (Negative) ng/mL Urine Cocaine Scre en Negative (Negative) ng/mL U Marijuana (THC) Screen Negative (Negative) ng/mL Ethyl Alcohol (0-10) mg/dL Imaging Data^: CT Head: Radiologist's impression: [address] [place] [address] CT Scan Report Signed Patient: Flakito Almanzar Unit #: [id number] : 1960 Age/Sex: 59 / M ADM Date: 01/20/20 Loc: ER Room/Bed: Attending Dr: Ordering Provider/Ordering MD: Fanny Virgen MD Date of Service: 01/20/20 Procedure(s): CT head wo con* [id number] Accession Number(s): [id number] Report Number: [id number] PROCEDURE INFORMATION: Exam: CT Head Without Contrast Exam date and time: 01/20/2020 9:20 PM Age: 59 years old Clinical indication: Altered mental status/memory loss; Patient HX: PT ETOH and intubated TECHNIQUE: Imaging protocol: Computed tomography of the head without contrast. Radiation optimization: All CT scans at this facility use at least one of these dose optimization techniques: automated exposure control; mA and/or kV adjustment per patient size (includes targeted exams where dose is matched to clinical indication); or iterative reconstruction. COMPARISON: CT head wo con* [id number] 08/23/2019 9:15 PM RADIATION DOSE METRICS: Total DLP (mGy-cm): 871.86 FINDINGS: Brain: Normal. No hemorrhage. Unremarkable white matter. No mass effect. Ventricles: Normal. No ventriculomegaly. Bones/joints: Unremarkable. No acute fracture. Sinuses: There is patchy opacification of the sinuses. Mastoid air cells: Visualized mastoid air cells are well aerated. Soft tissues: Unremarkable. CT/CT head wo con* [id number] IMPRESSION: No acute intracranial abnormality. CT Chest: Radiologist's impression: [place] [address] CT Scan Report Signed Patient: Flakito Almanzar Unit #: [id number] : 1960 Age/Sex: 59 / M ADM Date: 01/20/20 Loc: ER Room/Bed: Attending Dr: Ordering Provider/Ordering MD: Fanny Virgen MD Date of Service: 01/20/20 Procedure(s): CT angio chest PE protcl [id number] Accession Number(s): [id number] Report Number: [id number] PROCEDURE INFORMATION: Exam: CT Angiography Chest With Contrast Exam date and time: 01/20/2020 10:40 PM Age: 59 years old Clinical indication: Shortness of breath; Patient HX: PT intubated; Additional info: Dyspnea TECHNIQUE: Imaging protocol: Computed tomographic angiography of the chest with intravenous contrast. 3D rendering: MIP and/or 3D reconstructed images were created by the technologist. Radiation optimization: All CT scans at this facility use at least one of these dose optimization techniques: automated exposure control; mA and/or kV adjustment per patient size (includes targeted exams where dose is matched to clinical indication); or iterative reconstruction. Contrast material: OMNI 350; Contrast volume: 95 ml; Contrast route: INTRAVENOUS (IV); COMPARISON: CT angio chest PE protcl [id number] 12/15/2019 6:10 AM RADIATION DOSE METRICS: Total DLP (mGy-cm): 670.4 FINDINGS: Tubes, catheters and devices: There is an ET tube with tip 2 cm above the cheng. Pulmonary arteries: There is no pulmonary embolus. The pulmonary artery trunk is markedly enlarged compared to the thoracic aorta with a transverse measurement of 4.8 cm compared to the aorta which measures 3.7 cm. This appearance is compatible with pulmonary arterial hypertension. Aorta: Unremarkable. No aortic aneurysm. No aortic dissection. Lungs: There are severe emphysematous changes. There are bilateral airspace opacities greatest in the lower lobes with air bronchograms. This appearance may reflect pneumonic infiltrates and/or airspace pulmonary edema. There is also diffuse mild ground-glass opacity and interstitial prominence in the lungs compatible with probable CHF. Pleural space: Unremarkable. No pneumothorax. No pleural effusion. Heart: The heart is enlarged. Mediastinal space: A small hiatal hernia is present. Lymph nodes: Unremarkable. No enlarged lymph nodes. Adrenals: There is mild bilateral adrenal thickening compatible with hyperplasia. Bones/joints: Unremarkable. No acute fracture. Soft tissues: Unremarkable. CT/CT angio chest PE protcl [id number] IMPRESSION: 1. There is no pulmonary embolus. 2. There are findings compatible with pulmonary arterial hypertension. 3. Probable CHF. Airspace opacities are also noted especially in the lower lobes concerning for pneumonic infiltrates with underlying severe emphysematous changes. EKG Data^: EKG 1: Attestation: I personally reviewed and interpreted this EKG as follows: EKG interpretation date: 01/20/20 EKG interpretation time: 22:17 Interpretation: sinus tach hr 119 no acute stemi qrs 104 qtc 415 Critical Care Time Critical Care Time: Critical Care Time: Yes Total Critical Care Time: 35 Attestation: This case had a high probability of a clinically significant, sudden, or life threatening deterioration of this patient's condition which required my full and direct attention, intervention and personal management. Discharge Plan Discharge Patient Disposition: Admitted As Inpatient Clinical Impression: ETOH abuse, Pneumonia Respiratory failure Qualifiers: Chronicity: acute Respiratory failure complication: hypoxia Qualified Code(s): J96.01 - Acute respiratory failure with hypoxia Condition: Stable Referrals: Rasheed Spivey MD [Primary Care Provider] - Coding Level of Care Code ED Switchbox Assembler for Chg Fwd Exam Comprehensive
--- NOTE | 2020-01-20 21:33 | ECG_ITS ---
[facility] Test Date: 2020-01-20 Pat Name: Flakito Almanzar Department: Room: Gender: Male Human Resources Administrator: : 1960 Requested By: Fanny Virgen Order Number: [id number] Papo MD: Josue Maier M.D. Measurements Intervals [place] Rate: 119 P: -14 NH: 104 QRS: 44 QRSD: 104 T: 51 QT: 344 QTc: 485 Interpretive Statements SINUS TACHYCARDIA WITH SHORT NH INTERVAL WITH OCCASIONAL VENTRICULAR PREMATURE COMPLEXES MODERATE ST DEPRESSION [0.05+ mV ST DEPRESSION] Compared to ECG 12/15/2019 00:38:33 Ventricular premature complex(es) now present Short NH interval now present ST (T wave) deviation now present Sinus rhythm no longer present First degree AV block no longer present T-wave abnormality no longer present Prolonged QT interval no longer present Electronically Signed On 01-21-2020 17:42:55 CDT by Josue Maier M.D. [id number]
--- NOTE | 2020-01-20 21:45 | PC.NURSE ---
Received patient to er via ems with complaint of etoh/ being found passed out by his family. Patient was here earlier in the day but left AMA and has been drinking ever since he got home. Patient is restless and resistant to care. 18g lac per ems, o2 @4lpm via nc. patient refuses to leave monitor and pulse ox on.
--- NOTE | 2020-01-20 21:48 | XR_ITS ---
WS: [id number] CHEST XRAY TECHNIQUE: Portable chest. CLINICAL INFORMATION: post intubation COMPARISON: January 20, 2020 FINDINGS: Endotracheal tube with tip above the cheng measuring 3.1 CM. Heart: Cardiomegaly. Moderate chronic emphysematous changes. Lungs: Improved aeration of the right lower lobe with improved right lower lobe infiltrates. Mild int erstitial thickening within both lungs. Bones: Normal visualized bony structures. XR/XR chest 1V portable [id number] IMPRESSION: 1. Endotracheal tube with tip 3.1 cm above the cheng. 2. Improved aeration right lower lobe with improved right lower lobe infiltrat es. 3. Mild interstitial thickening in both lungs likely edema
[2020-01-20 22:01] LABS: Basophils # 0.1 10^3/uL (0.0-0.1); Basophils % 0.7 %; Eosinophils % 0.4 %; Hematocrit 41.4 % (42.0-52.0); Hemoglobin 13.4 g/dL (11.7-16.6); Lymphocytes # 2.6 10^3/uL (0.8-4.8); Lymphocytes % 35.3 %; Mean Corpuscular HGB Conc 32.4 g/dL (30.0-36.0); Mean Corpuscular Hemoglobin 31.4 pg (28.0-34.0); Mean Platelet Volume 8.9 fL (7.4-10.4); Monocytes # 0.6 10^3/uL (0.2-0.9); Monocytes % 7.8 %; Neutrophils # 4.1 10^3/uL (1.8-7.7); Neutrophils % 55.8 %; Nucleated Red Blood Cells % 0 %; Platelet Count 181 10^3/cmm (130-400); Red Blood Count 4.27 10^6/uL (4.1-5.3); Red Cell Distribution Width 12.7 % (12.1-15.1); White Blood Count 7.4 10^3/uL (4.0-10.0)
[2020-01-20] MEDS: propofol 1,000 MG/100 ML INJ 2.3 MG IV (22:03)
[2020-01-20] MEDS: sodium chloride 0.9% 1,000 ML 999 ML IV (22:04)
[2020-01-20] MEDS: rocuronium 10 mg/mL INJ 5mL 100 MG (22:04)
[2020-01-20] MEDS: ipratropium-albuterol 3 mL Neb INHALATION (22:09)
[2020-01-20] MEDS: LORazepam 2 mg/mL INJ 1 mL 1 MG IVP (22:13)
[2020-01-20] MEDS: piperacillin-tazobactam 3.375 GM in sodium chloride 0.9% (plus) 50 ML IV (22:22)
[2020-01-20 22:26] LABS: Alanine Aminotransferase 19 U/L (0-41); Albumin Level 4.1 g/dL (3.5-5.2); Alcohol Level 263 mg/dL (0-10); Alkaline Phosphatase 117 IU/L (40-130); Anion Gap 19.9 (5-19); Aspartate Amino Transferase 37 U/L (0-40); Blood Urea Nitrogen 5 mg/dL (6-20); Calcium 8.5 mg/dL (8.5-10.5); Carbon Dioxide 21 mmol/L (22-29); Chloride 103 mmol/L (98-107); Globulin 2.4 g/dL (1.3-4.6); Glomerular Filtration Rate 170.8 mL/min (90-130); Glucose 94 mg/dL (65-115); Osmolality Calculated 287 mOsm/kg (285-295); Sodium 141 mmol/L (136-145); Total Bilirubin 0.4 mg/dL (0.15-1.2); Total Protein 6.5 g/dL (6.6-8.7); Troponin(5th) Baseline 31 ng/L (0-15)
[2020-01-20 22:26] LABS: ABG PCO2 50.1 mmHg (35-45); ABG PH Result 7.27 (7.35-7.45); Arterial Blood Gas Hematocrit 40.3 % (42-52); Base Excess ABG -4.5 mmol/L (-2.0-2.0); Blood Gas Allen Test Pos; Blood Gas Sample Site Brachial, right; Blood Gas Sample Type Arterial; HCO3 ABG 22.8 mmol/L (22-26); Oxygen Device VENT; PO2 ABG 97.4 mmHg (80.0-100.0)
[2020-01-20 22:28] LABS: Acetaminophen < 5.0 ug/mL (10-30); Potassium 2.9 mmol/L (3.5-5.1); Salicylate < 0.3 mg/dL (3-10)
--- NOTE | 2020-01-20 22:38 | CTR_ITS ---
PROCEDURE INFORMATION: Exam: CT Angiography Chest With Contrast Exam date and time: 01/20/2020 10:40 PM Age: 59 years old Clinical indication: Shortness of breath; Patient HX: PT intubated; Additional info: Dyspnea TECHNIQUE: Imaging protocol: Computed tomographic angiography of the chest with intravenous contrast. 3D rendering: MIP and/or 3D reconstructed images were created by the technologist. Radiation optimization: All CT scans at this facility use at least one of these dose optimization techniques: automated exposure control; mA and/or kV adjustment per patient size (includes targeted exams where dose is matched to clinical indication); or iterative reconstruction. Contrast material: OMNI 350; Contrast volume: 95 ml; Contrast route: INTRAVENOUS (IV); COMPARISON: CT angio chest PE protcl [id number] 12/15/2019 6:10 AM RADIATION DOSE METRICS: Total DLP (mGy-cm): 670.4 FINDINGS: Tubes, catheters and devices: There is an ET tube with tip 2 cm above the cheng. Pulmonary arteries: There is no pulmonary embolus. The pulmonary artery trunk is markedly enlarged compared to the thoracic aorta with a transverse measurement of 4.8 cm compared to the aorta which measures 3.7 cm. This appearance is compatible with pulmonary arterial hypertension. Aorta: Unremarkable. No aortic aneurysm. No aortic dissection. Lungs: There are severe emphysematous changes. There are bilateral airspace opacities greatest in the lower lobes with air bronchograms. This appearance may reflect pneumonic infiltrates and/or airspace pulmonary edema. There is also diffuse mild ground-glass opacity and interstitial prominence in the lungs compatible with probable CHF. Pleural space: Unremarkable. No pneumothorax. No pleural effusion. Heart: The heart is enlarged. Mediastinal space: A small hiatal hernia is present. Lymph nodes: Unremarkable. No enlarged lymph nodes. Adrenals: There is mild bilateral adrenal thickening compatible with hyperplasia. Bones/joints: Unremarkable. No acute fracture. Soft tissues: Unremarkable. CT/CT angio chest PE protcl [id number] IMPRESSION: 1. There is no pulmonary embolus. 2. There are findings compatible with pulmonary arterial hypertension. 3. Probable CHF. Airspace opacities are also noted especially in the lower lobes concerning for pneumonic infiltrates with underlying severe emphysematous changes. Radiation Dose CTDIVOL = (mGy): DLP = 670.4 (mGy-cm)
[2020-01-20 22:48] LABS: NT Pro B Type Natriuretic Pept 237 pg/mL (0-125)
[2020-01-20] MEDS: iohexol 350 mg/mL 100 mL Btl IV (23:04)
[2020-01-20 23:15] LABS: Amphetamines Screen Urine Negative (Negative); Barbiturates Screen Urine Negative (Negative); Benzodiazepines Screen Urine Negative (Negative); Cocaine Screen Urine Negative (Negative); Opiate Screen Urine Negative (Negative); PCP Screen Urine Negative (Negative); THC Screen Urine Negative (Negative)
[2020-01-20 23:17] LABS: Magnesium 2.1 mg/dL (1.7-2.3)
[2020-01-20] MEDS: potassium chloride premix 40 MEQ/100 ML PREMIX 25 MEQ IV (23:33)
[2020-01-20] MEDS: vancomycin 1,000 MG in sodium chloride 0.9% 250 ML 250 MG IV (23:34)
[2020-01-20 23:37] LABS: Troponin 5 2HR 24.65 ng/L (0-15)
--- NOTE | 2020-01-20 23:42 | PM.HP ---
Providers/Chief Complaint Primary Care Provider: Rasheed Spivey MD Chief Complaint: ETOH/AMS History of Present Illness Flakito Almanzar is a 59 year old male [place] history of A. fib, chronic anticoagulation with Eliquis, pulmonary embolism, pulmonary hypertension, lymphoma, HIV with history of suicidal ideation, major depressive disorder who was admitted yesterday for alcohol withdrawal symptoms. He left AGAINST MEDICAL ADVICE in the morning was brought in today by EMS after he was found obtunded on the floor. He was very combative and agitated, he was extremely distressed, he was requiring 8 L of oxygen for his hypoxia, ERphysician intubated him. At the time of my evaluation he was very agitated on sedated propofol infusion, fentanyl was added after getting 4 mg of Versed. I requested another blood gas because respiratory acidosis on ventilator. Diagnostics in the ER revealed normal leukocytosis, he was afebrile, hypokalemia, alcohol level 263, chest x-ray is revealing aspiration pneumonitis. Review of Systems General: Reports: ROS unobtainable due to endotracheal tube Medications/Allergies Home Medications Medication Instructions Recorded Confirmed Last Taken Type fluconazole 100 mg tablet 100 mg PO DAILY tab 07/21/19 01/20/20 12/10/19 History pantoprazole 40 mg tablet,delayed 40 mg PO QAM 07/21/19 01/20/20 12/10/19 History release potassium chloride 20 mEq 20 meq PO BID 07/21/19 01/20/20 12/10/19 History tablet,extended release(part/cryst) sildenafil (pulm.hypertension) 20 20 mg PO TID 07/21/19 01/20/20 12/10/19 History mg tablet Eliquis 5 mg PO BID 08/02/19 01/20/20 12/10/19 History fentanyl 1 patch TRANSDERMAL Q72H 08/02/19 01/20/20 12/10/19 History Dovato 50 - 300 tab PO DAILY 08/05/19 01/20/20 12/10/19 History Opsumit 10 mg PO DAILY 08/05/19 01/20/20 12/10/19 History mirtazapine [Remeron] 15 mg PO BEDTIME 08/05/19 01/20/20 12/09/19 History nebulizers [Compact Compressor #1 each 09/01/19 12/11/19 Unknown Rx Nebulizer] diltiazem HCl 240 mg 240 mg PO DAILY #90 cap 11/04/19 01/20/20 12/10/19 Rx capsule,extended release 24 hr albuterol sulfate [Ventolin HFA] 2 puff INHALATION 6XD PRN 12/10/19 01/20/20 12/10/19 History multivitamin [Multiple Vitamins] 1 tab PO DAILY 12/10/19 01/20/20 12/10/19 History testosterone See Rx Instructions .ROUTE .COMPLEX 12/10/19 01/20/20 12/10/19 History trazodone 300 mg PO BEDTIME 12/10/19 01/20/20 12/10/19 History albuterol sulfate 2.5 mg INHALATION Q4-5H PRN 12/11/19 01/20/20 12/10/19 History budesonide-formoterol [Symbicort] 2 puff INHALATION BID 12/11/19 01/20/20 Unknown History bupropion HCl 150 mg PO DAILY 12/11/19 01/20/20 12/09/19 History sulfamethoxazole-trimethoprim See Rx Instructions .ROUTE .COMPLEX 12/11/19 01/20/20 12/08/19 History [Bactrim DS] Allergies Allergy/AdvReac Type Severity Reaction Status Date / Time No Known Allergies Allergy Verified 09/01/19 08:52 PFSH Acute PFSH: Medical History Anorexia Atrial fibrillation Colon polyps COPD (chronic obstructive pulmonary disease) Severe COPD Diverticulitis GI bleed Was taken off Coumadin for a month in 2015 after a bleeding gastric ulcer, currently on Eliquis HIV (human immunodeficiency virus infection) Hypogonadism Liver tumor Lymphoma 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 No evidence of recurrence, currently getting DONATIONS ATTENDANT prophylaxis with intrathecal methotrexate with prophylactic radiation to right testicle, CHOP treatment Meningitis Orchialgia Pulmonary embolism DVT of right leg, 2009 Anticoagulated with Coumadin Pulmonary hypertension After PE Surgical History H/O colonoscopy H/O hemorrhoidectomy History of orchiectomy, unilateral Family History Other No pertinent family history Social History Smoking and tobacco status: current every day smoker Alcohol intake: current Household members: family Housing: House Vitals/I&O/Wt Last Vital Signs Temp 97.1 F L 01/20/20 21:18 Pulse 114 H 01/20/20 23:30 Resp 16 01/20/20 23:30 BP 111/74 01/20/20 23:30 Pulse Ox 95 01/20/20 23:30 01/20/20 01/20/20 01/21/20 14:59 22:59 06:59 Intake Total 50.882 / 50.882 Balance 50.882 / 50.882 Weight last 48 hrs Weight 77.111 kg Physical Exam Narrative: EXAM NARRATIVE: Acute examination Patient is intubated and sedated with propofol and fentanyl Currently saturating well, tachycardic Variable S1, S2 RVR 120 Bowel sounds present on abdominal wall auscultation Skin graft right leg Assisted breath sounds bilaterally with coarse rhonchi Neurological exam not applicable: Patient is intubated: sedated, but moving his extremities, fentanyl is being added to his propofol infusion PRVC ventilator setting FiO2 60%, PEEP 10, respiratory 12, tidal volume 400 Urinary Catheter Management^: Barba: Cath Placed During This Visit: yes Urinary Catheter Date of Insertion: 01/20/20 Urinary Catheter Time of Insertion: 22:40 Data : 01/20/20 21:02 01/20/20 21:02 Micro: Microbiology 01/20/20 22:26 Blood Culture - Preliminary Blood SPECIMEN COLLECTED 01/20/20 22:26 Blood Culture - Preliminary Blood SPECIMEN COLLECTED A&P Assessment and plan (1) Respiratory failure: Status: Acute Qualifiers: Chronicity: acute Respiratory failure complication: hypoxia Qualified Code(s): J96.01 - Acute respiratory failure with hypoxia (2) ETOH abuse: Status: Acute (3) Aspiration pneumonitis: Status: Acute (4) Alcohol intoxication: Status: Acute (5) Pulmonary hypertension: Status: Acute (6) Hx pulmonary embolism: Status: Acute (7) Alcohol use disorder: Status: Acute (8) Major depressive disorder: Status: Acute Additional A&P Information Respiratory failure requiring intubation Currently intubated and sedated for airway protection Alcohol intoxication Current blood gases showing respiratory acidosis, will request another blood gas to adjust his ventilator settings We will check magnesium and phosphorus level as he has been considered high risk for refeeding syndrome Aspiration pneumonitis No signs of sepsis, he is afebrile, no leukocytosis, I would avoid adding antibiotics for now Echo intoxication IV thiamine folic acid Currently sedated with propofol and fentanyl Chronic anticoagulation for PE Continue Eliquis 5 mg twice via OG tube Major depressive disorder in the past with suicidal ideation He was evaluated by psych Full code N.p.o. Attestations Medical Necessity Statement*: Anticipating stay in the hospital proximal more than 2 minutes currently intubated for respiratory failure secondary to alcohol intoxication Time Spent in Patient Care: (>than 50% of time spent in counselling and/or direct pt care on unit). 35mins Coding Level of Care Code Acute Slag Mixer for Osmin Falcond Diagnoses Respiratory failure J96.01 Chronicity: acute Respiratory failure complication: hypoxia ETOH abuse F10.10 Aspiration pneumonitis J69.0 Alcohol intoxication F10.929 Pulmonary hypertension I27.20 Hx pulmonary embolism Z86.711 Alcohol use disorder Major depressive disorder F32.9
[2020-01-20 23:44] LABS: Troponin 5 2HR Delta -6.35 ABS# (0-10)
[2020-01-20] MEDS: midazolam 1 mg/mL INJ 2 mL 4 MG IVP (23:54)
[2020-01-21] VITALS (91 sets, daily range): BP systolic 91–148; BP diastolic 61–100; PULSE 72–112; RESP 5–29; TEMP 36.7–37.2; O2SAT 88–99
[2020-01-21] MEDS: sodium chlor 0.9% + KCl 20 mEq 20 MEQ/1,000 ML BAG 75 MEQ IV ×2 (01:50→15:12)
[2020-01-21] MEDS: propofol 1,000 MG/100 ML INJ 23.1 MG IV ×2 (01:53→06:22)
--- NOTE | 2020-01-21 02:19 | XR_ITS ---
WS: [id number] CHEST XRAY TECHNIQUE: Portable chest. CLINICAL INFORMATION: NG placement COMPARISON: January 20, 2020 FINDINGS: Endotracheal tube with tip 5.2 cm above the cheng. Enteric tube with tip below the diaphra gm. Heart: Normal cardiac silhouette. Lungs: Moderate chronic emphysematous changes. No acute pulmonary infiltrates. No focal pneumonia. Bones: Normal visualized bony structures. XR/XR chest 1V portable [id number] IMPRESSION: 1. Enteric tube with tip below the diaphragm. 2. Endotracheal tube with tip 5.2 cm above the cheng. 3. Improved lung volumes with improved aeration lower lobes.
[2020-01-21 03:23] LABS: ABG PCO2 41.7 mmHg (35-45); Blood Gas Allen Test Pos; Blood Gas Sample Site Radial, right; Blood Gas Sample Type Arterial; HCO3 ABG 18.7 mmol/L (22-26); Oxygen Device VENT
[2020-01-21 03:24] LABS: ABG PH Result 7.26 (7.35-7.45)
[2020-01-21] MEDS: LORazepam 2 mg/mL INJ 1 mL IVP ×3 (03:32→21:46)
--- NOTE | 2020-01-21 03:33 | ECG_ITS ---
[facility] [place] [facility] Date: 2020-01-21 Pat Name: Flakito Almanzar Department: Room: ICU08 Gender: Male [employer]: : 1960 Requested By: Fanny Virgen Order Number: [id number] Papo MD: Josue Maier M.D. Measurements Intervals [place] Rate: 93 P: VA: -1 QRS: 75 QRSD: 86 T: 77 QT: 402 QTc: 502 Interpretive Statements Sinus TACHYCARDIA ABNORMAL RHYTHM ECG WARNING: DATA QUALITY MAY AFFECT INTERPRETATION Compared to ECG 01/20/2020 22:17:04 Ventricular premature complex(es) no longer present Short VA interval no longer present ST (T wave) deviation no longer present Electronically Signed On 01-21-2020 17:46:26 CDT by Josue Maier M.D. [id number]
--- NOTE | 2020-01-21 03:41 | PC.NURSE ---
summary of care [id number] patient received from MIRIAN Cole from ER. patient currently on propofol at 50mcg, fentanyl at 25mcg, and Krider at 25ml/hr. patient resting comfortably. carbajal catheter in place on admission. 18G in the right hand was infiltrated on admission. nurse started new 18G in right forearm. patients tshirt and button up cut off. pants brought from er placed in [facility] bag and placed on chair. will continue to monitor.
[2020-01-21 04:48] LABS: Basophils % 0.4 %; Hematocrit 41.5 % (42.0-52.0); Hemoglobin 13.1 g/dL (11.7-16.6); Lymphocytes # 0.6 10^3/uL (0.8-4.8); Lymphocytes % 11.6 %; Mean Corpuscular HGB Conc 31.6 g/dL (30.0-36.0); Mean Corpuscular Hemoglobin 31.2 pg (28.0-34.0); Mean Corpuscular Volume 98.8 fL (80-94); Mean Platelet Volume 9.3 fL (7.4-10.4); Monocytes # 0.1 10^3/uL (0.2-0.9); Monocytes % 1.3 %; Neutrophils # 4.1 10^3/uL (1.8-7.7); Neutrophils % 86.5 %; Nucleated Red Blood Cells % 0 %; Platelet Count 181 10^3/cmm (130-400); Red Cell Distribution Width 12.9 % (12.1-15.1); White Blood Count 4.7 10^3/uL (4.0-10.0)
[2020-01-21 05:16] LABS: Troponin 5 6HR 21.27 ng/L (0-15)
[2020-01-21 05:17] LABS: Blood Urea Nitrogen 4 mg/dL (6-20); Calcium 8.1 mg/dL (8.5-10.5); Carbon Dioxide 17 mmol/L (22-29); Chloride 108 mmol/L (98-107); Glomerular Filtration Rate 170.8 mL/min (90-130); Glucose 127 mg/dL (65-115); Osmolality Calculated 295 mOsm/kg (285-295); Phosphorus 3.2 mg/dL (2.5-4.5); Sodium 144 mmol/L (136-145)
[2020-01-21 05:18] LABS: Troponin 5 6HR Delta -9.73 ng/L (0-12)
--- NOTE | 2020-01-21 05:30 | PC.NURSE ---
update to family spoke with patients motherCarmelita. updated mother on patient status and ICU admit. all questions answered. patient has two home medications at bedside. mother is aware of medications with patient. will continue to monitor.
[2020-01-21] MEDS: folic acid 1 mg Tablet PO (08:51)
[2020-01-21] MEDS: pantoprazole 40 mg SDV IVP (08:51)
[2020-01-21] MEDS: thiamine 100 mg Tablet PO (08:52)
[2020-01-21] MEDS: apixaban 5 mg Tablet PO ×2 (08:52→18:22)
[2020-01-21] MEDS: multivitamin therapeutic Tablet 1 TAB PO (08:52)
--- NOTE | 2020-01-21 10:38 | P.PN_ITS ---
Subjective Subjective: Interval history: Patient left AMA yesterday at around 7 PM and then was brought back to the ER at 11 PM and alcohol intoxication. And ER patient was apparently intubated as patient was not able to maintain his airway. On review of blood work it looks like patient was overnight kept on a PEEP of 15, respirate of 12, FiO2 60%. Today morning on my evaluation patient is on PEEP of 8, FiO2 40%, respiratory rate of 12, tidal volume of 450 saturating 94% on fentanyl and propofol but responsive to being called out. On discussion about goals of care and events leading up to hospitalization with patient's mother she states apparently patient had told his friend that he would be going to kill himself and mother also thinks that patient is a potential threat to himself. I have asked mother to fill out an affidavit if required for potential 96-hour hold. Vitals/I&O/Wt Last Vital Signs Temp 98.4 F 01/21/20 08:00 Pulse 74 01/21/20 09:30 Resp 12 01/21/20 09:24 BP 107/79 01/21/20 09:30 Pulse Ox 95 01/21/20 09:30 01/20/20 01/21/20 01/21/20 22:59 06:59 14:59 Intake Total 50.882 / 50.882 1169.288 / 1220.170 Output Total 3950 / 3950 Balance 50.882 / 50.882 -2780.712 / -2729.830 Weight last 48 hrs Weight 77.111 kg Physical Exam Narrative: EXAM NARRATIVE: General: Sedated but arousable, on ventilator HEENT: PERRLA, pupils bilaterally equal and reactive Chest: Normal vesicular breath sounds, no added sounds, equal good air entry bilaterally CVS: S1-S2 regular, no murmurs, no tachycardia, no gallops, no rubs Abdomen: Soft, nontender, no organomegaly, bowel sounds present Neuro: GCS: E1 M4 VT Urinary Catheter Management^: Barba: Cath Placed During This Visit: yes Reason for Continuing Indwelling Catheter: Accurate Measurement of Urinary Output in Critically Ill Patients Urinary Catheter Date of Insertion: 01/21/20 Urinary Catheter Time of Insertion: 22:40 Data : 01/21/20 04:15 01/21/20 04:15 Micro: Microbiology 01/20/20 22:26 Blood Culture - Preliminary Blood SPECIMEN COLLECTED 01/20/20 22:26 Blood Culture - Preliminary Blood SPECIMEN COLLECTED A&P Assessment and plan (1) Alcohol intoxication: Status: Acute (2) Respiratory failure: Status: Acute Qualifiers: Chronicity: acute Respiratory failure complication: hypoxia Qualified Code(s): J96.01 - Acute respiratory failure with hypoxia (3) Aspiration pneumonitis: Status: Acute (4) Pulmonary hypertension: Status: Acute (5) Hx pulmonary embolism: Status: Acute (6) Alcohol use disorder: Status: Acute (7) Major depressive disorder: Status: Acute (8) Atrial fibrillation: Status: Acute (9) HIV (human immunodeficiency virus infection): Status: Acute Additional A&P Information Alcohol intoxication/history of alcohol abuse: Patient left AMA yesterday and then presented again and alcohol intoxication. Alcohol levels 264. Continue with normal saline 200 cc/h, oral thiamine, oral folic acid. Switch propofol to Precedex. Once patient is awake enough we will try to extubate if he meets the criteria. If patient is extubated we will start patient on Librium 50 every 8 hourly along with Precedex. Ativan as per CIWA score. 96-hour hold. Affidavit has been filled out by Mr. Dalal. Psych consult. Aspiration pneumonitis No signs of sepsis, he is afebrile, no leukocytosis, I would avoid adding antibiotics for now Start on duo nebs every 6 hours, budesonide twice daily. Chronic anticoagulation for PE Continue Eliquis 5 mg twice via OG tube HIV: CD4 counts, HIV viral load sent out day before yesterday. Results awaited. Continue home medications of Dovato, OPSUMIT, prophylaxis dose of Bactrim, fluconazole. Diarrhea: Infective causes ruled out with C. difficile negative. If patient continues to have diarrhea we will start him on Imodium. Full code. N.p.o. for now. 96-hour hold Heparin for DVT prophylaxis Attestations Medical Necessity Statement*: Alcohol intoxication, 96-hour hold Time Spent in Patient Care: Greater than 35 minutes (>than 50% of time spent in counselling and/or direct pt care on unit) . Coding Level of Care Code Acute Parking Patroller for Osmin Ordonez Diagnoses Alcohol intoxication F10.929 Respiratory failure J96.01 Chronicity: acute Respiratory failure complication: hypoxia Aspiration pneumonitis J69.0 Pulmonary hypertension I27.20 Hx pulmonary embolism Z86.711 Alcohol use disorder Major depressive disorder F32.9 Atrial fibrillation I48.91 HIV (human immunodeficiency virus infection) B20
[2020-01-21] MEDS: dexmedetomidine 400 MCG in sodium chloride 0.9% (100 ml) 100 ML IV (11:32)
[2020-01-21] MEDS: chlordiazePOXIDE 25 mg Capsule 50 MG PO ×2 (14:29→21:40)
--- NOTE | 2020-01-21 17:46 | PC.RESP ---
Smoking Cessation and Pulmonary Rehab information to patient with a schedule of classes.
--- NOTE | 2020-01-21 18:27 | PC.NURSE ---
Fentanyl Drip remaining amount was wasted with Xander VELA at this time.
[2020-01-21] MEDS: ipratropium-albuterol 3 mL Neb INHALATION ×2 (20:25)
[2020-01-21] MEDS: budesonide 0.5 mg/2 mL Neb INHALATION (20:25)
[2020-01-21] MEDS: trazodone 150 mg Tablet 300 MG PO (21:40)
[2020-01-22] VITALS (25 sets, daily range): BP systolic 118–151; BP diastolic 70–91; PULSE 68–116; RESP 16–30; TEMP 36.7–37.1; O2SAT 86–96
[2020-01-22] MEDS: LORazepam 2 mg/mL INJ 1 mL IVP (00:02)
[2020-01-22] MEDS: ipratropium-albuterol 3 mL Neb INHALATION ×3 (02:29→21:07)
[2020-01-22] MEDS: sodium chlor 0.9% + KCl 20 mEq 20 MEQ/1,000 ML BAG 75 MEQ IV (04:28)
[2020-01-22] MEDS: chlordiazePOXIDE 25 mg Capsule 50 MG PO ×2 (06:10→18:12)
[2020-01-22] MEDS: apixaban 5 mg Tablet PO ×2 (08:03→18:12)
[2020-01-22] MEDS: thiamine 100 mg Tablet PO (08:03)
[2020-01-22] MEDS: dilTIAZem ER (24HR) 120 mg Capsule PO (08:03)
[2020-01-22] MEDS: folic acid 1 mg Tablet PO (08:03)
[2020-01-22] MEDS: multivitamin therapeutic Tablet 1 TAB PO (08:03)
[2020-01-22] MEDS: fluconazole 100 mg Tablet PO (08:03)
[2020-01-22] MEDS: budesonide 0.5 mg/2 mL Neb INHALATION ×2 (08:13→21:08)
--- NOTE | 2020-01-22 11:02 | PM.PN ---
Subjective Subjective: Interval history: No acute events overnight. Patient was extubated yesterday. Has done well post extubation. Precedex was stopped earlier in the morning. Has been doing well without Precedex. Requiring minimal Ativan. Denies any nausea, vomiting, headache. Sleeping comfortably on examination and awoken to verbal stimulus. Vitals/I&O/Wt Last Vital Signs Temp 98.7 F 01/22/20 08:00 Pulse 82 01/22/20 10:00 Resp 21 H 01/22/20 10:00 BP 128/79 01/22/20 10:00 Pulse Ox 94 01/22/20 10:00 01/21/20 01/22/20 01/22/20 22:59 06:59 14:59 Intake Total 1550 / 9819.448 4348 / 3089.833 291 / 291 Output Total 575 / 875 600 / 1475 200 / 200 Balance 975 / 919.833 695 / 1614.833 91 / 91 Weight last 48 hrs Weight 77.111 kg Physical Exam Narrative: EXAM NARRATIVE: General: No acute distress, AO x3 HEENT: PERRLA, pupils bilaterally equal and reactive Chest: Normal vesicular breath sounds, no added sounds, equal good air entry bilaterally CVS: S1-S2 regular, no murmurs, no tachycardia, no gallops, no rubs Abdomen: Soft, nontender, no organomegaly, bowel sounds present Neuro: Moving all 4 limbs. Urinary Catheter Management^: Barba: Cath Placed During This Visit: yes Reason for Continuing Indwelling Catheter: Accurate Measurement of Urinary Output in Critically Ill Patients Urinary Catheter Date of Insertion: 01/21/20 Urinary Catheter Time of Insertion: 22:40 Data : 01/21/20 04:15 01/21/20 04:15 Micro: Microbiology 01/20/20 22:26 Blood Culture - Preliminary Blood NEGATIVE TO DATE 01/20/20 22:26 Blood Culture - Preliminary Blood NEGATIVE TO DATE A&P Assessment and plan (1) Alcohol intoxication: Status: Acute (2) Respiratory failure: Status: Acute Qualifiers: Chronicity: acute Respiratory failure complication: hypoxia Qualified Code(s): J96.01 - Acute respiratory failure with hypoxia (3) Aspiration pneumonitis: Status: Acute (4) Pulmonary hypertension: Status: Acute (5) Hx pulmonary embolism: Status: Acute (6) Alcohol use disorder: Status: Acute (7) Major depressive disorder: Status: Acute (8) Atrial fibrillation: Status: Acute (9) HIV (human immunodeficiency virus infection): Status: Acute Additional A&P Information Alcohol intoxication/history of alcohol abuse: Patient left AMA yesterday and then presented again and alcohol intoxication. Alcohol levels 264. Discontinue fluid as taking oral well. Continue oral thiamine and folic acid. Decrease Librium to 50 mg every 12 hour. Ativan as per CIWA protocol. 96-hour hold. Affidavit has been filled out by Mr. Dalal. Psych consult. Aspiration pneumonitis No signs of sepsis, he is afebrile, no leukocytosis, I would avoid adding antibiotics for now Start on duo nebs every 6 hours, budesonide twice daily. Chronic anticoagulation for PE Continue Eliquis 5 mg twice daily. HIV: CD4 counts, HIV viral load sent out day before yesterday. Results awaited. Continue home medications of Dovato, OPSUMIT, prophylaxis dose of Bactrim, fluconazole. Diarrhea: Infective causes ruled out with C. difficile negative. If patient continues to have diarrhea we will start him on Imodium. Full code. Cardiac diet. 96-hour hold Heparin for DVT prophylaxis.. Patient is stable enough from medical point of view to be transferred to neuropsych [place]. Will discuss with Dr. Bang. Patient will continue on Cardizem but at 120 mg daily, Eliquis 5 mg twice daily, his HIV medications, nebulization, oxygen supplementation and 4 L which is his baseline. Attestations Medical Necessity Statement*: Alcohol intoxication, 96-hour hold Time Spent in Patient Care: Greater than 35 minutes Coding Level of Care Code Acute Early Childhood Aide Classroom for [facility] Ezekiel Diagnoses Alcohol intoxication F10.929 Respiratory failure J96.01 Chronicity: acute Respiratory failure complication: hypoxia Aspiration pneumonitis J69.0 Pulmonary hypertension I27.20 Hx pulmonary embolism Z86.711 Alcohol use disorder Major depressive disorder F32.9 Atrial fibrillation I48.91 HIV (human immunodeficiency virus infection) B20
[2020-01-22] MEDS: blistex lip oint 7 gm Tube 1 APPLIC TOPICAL (18:15)
--- NOTE | 2020-01-22 19:54 | PC.NURSE ---
The patient is using oxygen at 4 liter via nasal canula.
[2020-01-22] MEDS: mirtazapine 15 mg Tablet PO (20:23)
[2020-01-22] MEDS: trazodone 150 mg Tablet 300 MG PO (20:24)
[2020-01-23 04:55] VITALS: BP 122/78; PULSE 116; RESP 21; TEMP 36.7; O2SAT 91
[2020-01-23] MEDS: chlordiazePOXIDE 25 mg Capsule 50 MG PO ×2 (05:44→18:38)
[2020-01-23] MEDS: pantoprazole DR 40 mg Tablet PO (05:44)
[2020-01-23 06:16] VITALS: BP 119/79; PULSE 87; RESP 17; TEMP 37; O2SAT 90
[2020-01-23 07:24] LABS: Basophils % 0.6 %; Eosinophils # 0.1 10^3/uL (0.0-0.8); Eosinophils % 1.3 %; Hematocrit 40.8 % (42.0-52.0); Hemoglobin 13.2 g/dL (11.7-16.6); Lymphocytes % 31.4 %; Mean Corpuscular HGB Conc 32.4 g/dL (30.0-36.0); Mean Corpuscular Hemoglobin 31.9 pg (28.0-34.0); Mean Corpuscular Volume 98.6 fL (80-94); Monocytes # 0.4 10^3/uL (0.2-0.9); Monocytes % 5.6 %; Neutrophils # 3.8 10^3/uL (1.8-7.7); Neutrophils % 60.9 %; Nucleated Red Blood Cells % 0 %; Platelet Count 157 10^3/cmm (130-400); Red Blood Count 4.14 10^6/uL (4.1-5.3); Red Cell Distribution Width 12.8 % (12.1-15.1); White Blood Count 6.2 10^3/uL (4.0-10.0)
[2020-01-23 07:45] LABS: Alanine Aminotransferase 15 U/L (0-41); Albumin Level 3.7 g/dL (3.5-5.2); Alkaline Phosphatase 109 IU/L (40-130); Anion Gap 14.4 (5-19); Aspartate Amino Transferase 27 U/L (0-40); Blood Urea Nitrogen 9 mg/dL (6-20); Carbon Dioxide 28 mmol/L (22-29); Chloride 103 mmol/L (98-107); Globulin 2.7 g/dL (1.3-4.6); Glomerular Filtration Rate 115.8 mL/min (90-130); Glucose 108 mg/dL (65-115); Osmolality Calculated 291 mOsm/kg (285-295); Potassium 3.4 mmol/L (3.5-5.1); Sodium 142 mmol/L (136-145); Total Bilirubin 0.4 mg/dL (0.15-1.2); Total Protein 6.4 g/dL (6.6-8.7)
[2020-01-23] MEDS: folic acid 1 mg Tablet PO (08:31)
[2020-01-23] MEDS: fluconazole 100 mg Tablet PO (08:31)
[2020-01-23] MEDS: dilTIAZem ER (24HR) 120 mg Capsule PO (08:31)
[2020-01-23] MEDS: multivitamin therapeutic Tablet 1 TAB PO (08:31)
[2020-01-23] MEDS: thiamine 100 mg Tablet PO (08:32)
[2020-01-23] MEDS: apixaban 5 mg Tablet PO ×2 (08:32→18:37)
[2020-01-23] MEDS: sulfamethoxazole-trimeth DS 160-800 mg Tablet 1 TAB PO (08:32)
--- NOTE | 2020-01-23 13:19 | PM.NHP ---
Providers/Chief Complaint Admitting Physician: Kenny Osborn MD Primary Care Provider: Rasheed Spivey MD Chief Complaint: ETOH/AMS HPI NPU History of Present Illness Flakito Almanzar is a 59 year old male who presented to the emergency room on 01-19-20 and was brought in with his Psychiatric Np. This was a month after his previous hospitalization to the ICU for alcohol use, where he refused rehabilitation. He reportedly had been drinking a 24 pack of beer plus hard liquor everyday, for months, and he had reportedly threatened suicide several times. He was admitted to the ICU for definitive treatment of those issues. After two days in the ICU, he left the hospital against medical advise, and he returned on 01-20-20 late at night, and it had been identified that he had just left AMA; he was quite intoxicated and was in respiratory distress, only citing at 80% on 6 liters of oxygen and unable to give a history because of his intoxication and respiratory distress. So he was once admitted to the ICU for definitive treatment for his withdrawal and respiratory distress. Once he was medically cleared from the ICU, he was transferred to the neuropsychiatric unit for definitive treatment of his alcohol use disorder, depression, and suicidality. He presents today still resistant to the idea of inpatient rehabilitation. He was open to the idea of the utilization of Disulfiram / Antabuse after discussing the risks, benefits, and alternatives, but is resistant to the idea of rehab. We discussed the fact that his mom was planning on possibly challenging him in court to force him to go to an inpatient detox, against his will, which he was very upset about. We had a long discussion about how, at this point, his decision making is so flawed in relation to his alcohol that everyone treating him has grave concerns about which time we hear about him that is going to be the last time, due to how out of control his drinking is in relation to his overall medical issues. Ultimately, he seemed accepting that there was a high likelihood that we would support him being sent to rehab on a forced court order. We reviewed his last hospitalization notes, and he agreed that there had been no substantive changes and it represented his psycho-social history appropriately. Per his last [facility] [place]/19: History of Present Illness Flakito Almanzar is a 59 year old male who presented to the emergency room intoxicated with a 96-hour hold affidavit stating he threatened to kill himself. He endorsed drinking heavily due to voices in his head. He was admitted on a 96-hour hold to the ICU for definitive treatment of his alcohol withdrawal and a psychiatric consult was initiated. Flakito was found to be cogent at the time of the interview reporting that he had gone to a rehab as planned but that he left after a few days secondary to being the oldest person there. This report writer challenged that is a real reason to leave the rehab and he showed some sense of humor. He then very quickly started talking about discharge and ending the 96-hour hold what he thought was unfair. I explained that first of all he is not medically cleared and he is in an ICU. We discussed the fact that it is our assessment that him going to a rehab for 30, 60, 90, 180 days presents on the best chance of maintaining his sobriety. He claims that after he left the rehab that he was sober for weeks but based on his history it is unclear that that is unlikely reality. We reviewed his most recent evaluation here and he denies any substance of changes in his history so an excerpt was included below. Per last [facility] [place]: History of Present Illness Flakito Almanzar is a 59 year old male who presented to the emergency room intoxicated again. There have been a call from his mother the day before that he had been drinking again and talking about admission. Reportedly he has not been drinking for that long. In the past several hospitalizations he has said he would do inpatient r only to ehab retract that at discharge and then either not go to outpatient rehab or go to outpatient rehab and then slip-up. We have advised him the last couple of times that inpatient rehab is really the only vehicle through which we see success for him. He presents today reporting that he is ready to go to inpatient rehab. He denied lethality he endorsed some depression but reported that he just cannot seem to stay sober and he acknowledges that he needs to go to inpatient services to have a chance for success. His last [facility] [place] is included below. We reviewed that he denied any changes to his psychosocial situation. He still lives along he still has his mom and his director of distance learning as his significant supports. His director of distance learning was here when I arrived. Per last [facility] [place]: HPI NPU History of Present Illness Flakito Almanzar is a 59 year old male who presents today as he has multiple times recently intoxicated and endorsing depression. His mother called and reported that he had gone to the outpatient rehab 3 times and then never returned. He spent the last week getting drunk with an individual that he had agreed he would avoid during this critical. When he is so vulnerable. She reported that he threatened to kill his stepfather while in an intoxicated state. He was very resistant to the initial interview though we reviewed his previous psychosocial information that can be seen below. We discussed his continued presentation with resistance for inpatient rehab followed by discharge to some outpatient services and generally return to drinking within a week to 2 weeks if not sooner. We discussed the reality of the situation and the need for him to get 30/60/90 days sobriety to allow his mind to function and make decisions that are in his best interest. Especially given his other medical comorbidities as we discussed in his last visit the impact of his drinking on his already taxed immune system. We discussed the risks benefits and alternatives of different interventions and he understood and agreed to proceed with us finding him an inpatient rehab bed. D/C summary including recent pertinent psychosocial information: Discharge Diagnosis (1) Alcoholic intoxication: Status: Resolved Qualifiers: Complication of substance-induced condition: with unspecified complication Qualified Code(s): F10.929 - Alcohol use, unspecified with intoxication, unspecified (2) Depression with suicidal ideation: Status: Resolved Reason for Visit Reason for Visit: Reason For Visit: ETOH INTOX;SI 96 HOUR HOLD Brief History: Psych Consult HPI History of Present Illness Flakito Almanzar is a 59 year old male known to this report writer the previous interactions as he has been to the neuropsych unit 3 times since last March and this is the second ICU consult by this report writer on Flakito since then. He has generally come in with suicidal thinking, depression and alcohol use/intoxication, been managed appropriately in the ICU, gone to the neuropsych unit for mental health treatment and been discharged without major incident. Unfortunately multiple times he has reported a plan to go to inpatient rehabilitation, and that has never actually happened. At some point prior to discharge he gives some intellectualized response as to why it's impossible or not the best for him that he go to the inpatient rehabilitation. Those things include commitments to the charge, commitments to school in his academic pursuits, as well as personal desires not to go. Today we discussed his presentation and concerns about lethality which he downplayed. He reported that he loves himself too much to commit suicide, that he knows we'll be sending us guide the committed suicide, as well as other reasons. He then went on to say that he would not be seen by this report writer again, he was discharged. It seemed peculiar way that he said it. He tried to say that he would not be coming back here, because he wasn't going to drink, but it did not seem that was what he meant. He tried to say that he had plans to go to rehabilitation in the morning and that this had been prearranged. That has mother was aware and that he had to leave tonight so that he can get some things done that only he could do prior to going for 30 days. His demeanor raised enough concern that I discussed with Dr. Dunbar that we needed to confirm with his mother that this was a known plan otherwise it raises concerns that he was trying to discharge to possibly harm himself. Otherwise he reported that there have been no changes in his psychosocial conditions. He reports that his history and situation had not changed and was consistent with my previous interview in March which can be seen below. Per last consult: History of Present Illness Date of Service: Apr 04, 2019 Reason for Consultation: Intoxication with reported aggressive threats Consulting Service and Doctor: Niko Bang M.D. Psychiatry. HPI: Flakito presents today somewhat lethargic having had a significant amount of Ativan to combat his alcohol withdrawal reporting that he's been having a fairly tough time recently. He reports that alcohol use has changed to an alarming level the last year and reports that the issue surrounds dealing with his homosexuality and the fact that he feels unworthy of guys love given his of homosexuality. He denies having any significant mental health treatment or hospitalizations or any problems and reports that he grew up in a fairly christianity family and reports that about a year ago he began to really struggle with his known homosexuality to himself but reports that he began living a clearly homosexual life which she is struggle with from a spiritual standpoint. Records show confusing contradictions as he has had the diagnosis of HIV for some time and is unclear how that occurred however this is how he reports the story. He reports that he has been drinking about 4 pints of alcohol a day and reports that that has been going on for about a year. He reports he is probably only had a day here and there that he hasn't had a drink in this period of time. He also identifies that about 2 weeks ago he had a 1 or 2 day cessation of drinking where and he had a withdrawal seizure. He had reached out to [facility] or this may have occurred during his emergency room stent however there is reportedly a bed available for him but we discussed the risks benefits and alternatives of home taking that bed with an understanding that he needs to be through the detox aspect of the situation prior to going to [facility]. His blood alcohol was 400 at about noon yesterday. He had gone to the emergency room and then left and apparently when he left the went home and had another pint of alcohol and was found unconscious and brought back to the emergency room which is how he got into the ICU. He reports a plan and agreement to work with the treatment team and psychiatric services to try to get him in a condition that it is safe for him to go to [facility] on Sunday at 8 AM when they would pick him up here at [facility]. Active Meds: Current Hospital Medications: Medications (Trade) Dose Ordered Sig/Stan[place] Route PRN Reason Start Time Stop Time Status Last Admin Dose Admin Potassium Chloride/Sodium Chloride 1,000 ml @ 125 mls/hr CONT IV 04/03/19 15:15 Hold 04/04/19 09:12 Thiamine Mononitrate (Thiamine Tab) 100 mg DAILY PO 04/04/19 10:00 04/04/19 09:10 Multivitamins Therapeutic (Therapeutic Multivitamin) 1 ea DAILY PO 04/04/19 10:00 04/04/19 09:10 Folic Acid/ Cyanocobalamin/ pyridoxin (Folic Acid Tab) 1 mg DAILY PO 04/04/19 10:00 04/04/19 09:10 Lorazepam (Ativan Inj) 2 mg PRN PRN IV FOR WITHDRAWAL 04/03/19 15:15 04/04/19 13:00 Lorazepam (Ativan Inj) 2 mg PRN PRN IM for Withdrawal 04/03/19 15:15 Lorazepam (Ativan Tab) 2 mg PRN PRN PO Withdrawal 04/03/19 15:15 04/04/19 16:07 Acetaminophen (Tylenol Tab) 650 mg Q4H PRN PO FOR MILD PAIN 04/03/19 15:15 Ondansetron HCl (Zofran Inj) 4 mg Q6H PRN IV FOR NAUSEA AND VOMITING 04/03/19 15:15 Pantoprazole Sodium (Protonix Tab) 40 mg DAILY PO 04/04/19 10:00 04/04/19 09:10 Enoxaparin Sodium (Lovenox) 40 mg Q24H SUBCUT 04/03/19 15:15 04/04/19 16:07 Nicotine (Nicoderm Patch) 21 mg DAILY PRN TD 04/04/19 04:30 04/04/19 05:05 Dexmedetomidine HCl 400 mcg/ Sodium Chloride 104 ml @ 0 mls/hr CONT IV 04/04/19 10:00 04/04/19 10:18 Haloperidol Lactate (Haldol Inj) 5 mg Q3H PRN IM FOR AGITATION 04/04/19 13:30 Home Meds: Home Medications: Active Reported [Opsumit] 1 Tab PO DAILY Symbicort 80-4.5 Mcg Inhaler (Budesonide/Formoterol Fumarate) 10.2 Gm Inhaler 2 Puff INH BID Iron Sulfate 325MG Tab (Ferrous Sulfate) 325 Mg Tabec 325 Mg PO BREAKFAST Diflucan Tab (Fluconazole) 100 Mg Tablet 100 Mg PO DAILY Wellbutrin XL (Bupropion HCl) 150 Mg Tab.sr.24h 150 Mg PO DAILY Trazodone Tab (Trazodone HCl) 150 Mg Tablet 300 Mg PO BEDTIME Klor Con Tab (Potassium Chloride) 20 Meq Tab.prt.sr 20 Meq PO TID Protonix Tab (Pantoprazole Sodium) 40 Mg Tabec 40 Mg PO DAILY [Descovy] 1 Tab PO DAILY Isentress Chew Tab (Raltegravir) 100 Mg Tab.chew 400 Mg PO BID Xanax Tab (Alprazolam) 0.25 Mg Tab 0.25 Mg PO TID Oxycodone IR (Oxycodone HCl) 30 Mg Tab 30 Mg PO QID PRN Duragesic Patch (Fentanyl) 50 Mcg Patch 50 Mcg TD Q72H Prednisone Tab (Prednisone) 10 Mg Tablet 20 Mg PO DAILY Narcan (Naloxone HCl) 4 Mg/Actuation [place] 4 Mg NASAL ONCE PRN 1 Days Cartia XT (Diltiazem HCl) 240 Mg Cap.sr.24h 240 Mg PO DAILY Pradaxa Cap (Dabigatran) 150 Mg Capsule 150 Mg PO BID Voltaren Gel (Diclofenac Gel) 100 Gm Gel..gm. 1 Applic TOP QID PRN Past Medical History Past Medical History: Please see ED and ICU notes for additional history. Other Family Medical History: He denies significant mental health, addiction or other issues in his family. He denies any history of suicide attempts or completions in his family. Other Past Social History: Developmental history: Flakito reports being the product of a normal . He endorses that he learn to walk and talk and met his development milestones on time. He denied any speech therapy, learning support, emotional support special education classes. Psychosocial history: He reports being the only child of his parents and that they were together when he was born. He denies any other siblings through their union with any other partners and reports that they never . He reports that his childhood was good but he was raised in a fairly christianity family went to [employer] on Sundays and Wednesdays at least. He reports he graduated from high school. He endorses being homosexual and his long-term relationship has not been very long. He denies ever being , never had any children, never been in the he endorses being a [employer]. He reports his longest tenure in any job was about 7 years. He reports he lives in a house alone. He denies any significant legal history. Meds NPU Home Medications Medication Instructions Recorded Confirmed Last Taken Type fluconazole 100 mg tablet 100 mg PO DAILY tab 07/21/19 01/21/20 12/10/19 History pantoprazole 40 mg tablet,delayed 40 mg PO QAM 07/21/19 01/21/20 12/10/19 History release potassium chloride 20 mEq 20 meq PO BID 07/21/19 01/21/20 12/10/19 History tablet,extended release(part/cryst) sildenafil (pulm.hypertension) 20 20 mg PO TID 07/21/19 01/21/20 12/10/19 History mg tablet Eliquis 5 mg PO BID 08/02/19 01/21/20 12/10/19 History fentanyl 1 patch TRANSDERMAL Q72H 08/02/19 01/21/20 12/10/19 History Dovato 50 - 300 tab PO DAILY 08/05/19 01/21/2020 History Opsumit 10 mg PO DAILY 08/05/19 01/21/20 12/10/19 History mirtazapine [Remeron] 15 mg PO BEDTIME 08/05/19 01/21/20 12/09/19 History nebulizers [Compact Compressor #1 each 09/01/19 01/21/20 Unknown Rx Nebulizer] diltiazem HCl 240 mg 240 mg PO DAILY #90 cap 11/04/19 01/21/20 12/10/19 Rx capsule,extended release 24 hr albuterol sulfate [Ventolin HFA] 2 puff INHALATION 6XD PRN 12/10/19 01/21/20 12/10/19 History multivitamin [Multiple Vitamins] 1 tab PO DAILY 12/10/19 01/21/20 12/10/19 History testosterone See Rx Instructions .ROUTE .COMPLEX 12/10/19 01/21/20 12/10/19 History trazodone 300 mg PO BEDTIME 12/10/19 01/21/20 12/10/19 History albuterol sulfate 2.5 mg INHALATION Q4-5H PRN 12/11/19 01/21/20 12/10/19 History budesonide-formoterol [Symbicort] 2 puff INHALATION BID 12/11/19 01/21/20 Unknown History bupropion HCl 150 mg PO DAILY 12/11/19 01/21/20 12/09/19 History sulfamethoxazole-trimethoprim See Rx Instructions .ROUTE .COMPLEX 12/11/19 01/21/20 12/08/19 History [Bactrim DS] Allergies Allergy/AdvReac Type Severity Reaction Status Date / Time No Known Allergies Allergy Verified 09/01/19 08:52 PFSH NPU PFSH: Medical History Anorexia Atrial fibrillation Colon polyps COPD (chronic obstructive pulmonary disease) Severe COPD Diverticulitis GI bleed Was taken off Coumadin for a month in 2015 after a bleeding gastric ulcer, currently on Eliquis HIV (human immunodeficiency virus infection) Hypogonadism Liver tumor Lymphoma 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 No evidence of recurrence, currently getting RAIL BONDER prophylaxis with intrathecal methotrexate with prophylactic radiation to right testicle, CHOP treatment Meningitis Orchialgia Pulmonary embolism DVT of right leg, 2009 Anticoagulated with Coumadin Pulmonary hypertension After PE Surgical History H/O colonoscopy H/O hemorrhoidectomy History of orchiectomy, unilateral Family History Other No pertinent family history Social History Smoking and tobacco status: current every day smoker Alcohol intake: current Household members: family Housing: House Mental Status Exam MSE Comments: This is a feeble appearing, white male, with nasal cannula in, with limited dress, grooming, and eye contact. No abnormal movements, except for psychomotor retardation and some mild tremor. Semi-cooperative with exam in no acute distress. Speech was decreased rate and volume. Mood described as tired; affect congruent. Thought process, organized. Thought content: patient denied any suicidal or homicidal ideation, there were no delusions reported or noted, patient denied any auditory or visual hallucinations. Attention, concentration, and memory appear intact but none were formally tested. He is alert and oriented times three. Insight and judgment are impaired. Impulse control is impaired. Vitals/I&O/Wt Last Vital Signs Temp 98.6 F 01/23/20 06:16 Pulse 87 01/23/20 06:16 Resp 17 01/23/20 06:16 BP 119/79 01/23/20 06:16 Pulse Ox 90 01/23/20 06:16 Physical Exam Urinary Catheter Management^: Barba: Cath Placed During This Visit: yes Reason for Continuing Indwelling Catheter: Accurate Measurement of Urinary Output in Critically Ill Patients Urinary Catheter Date of Insertion: 01/21/20 Urinary Catheter Time of Insertion: 22:40 Data NPU : 01/23/20 07:15 01/23/20 07:15 A&P Assessment and plan (1) Alcohol intoxication: Status: Acute (2) Alcohol use disorder: Status: Acute (3) Major depressive disorder: Status: Acute (4) HIV (human immunodeficiency virus infection): Status: Acute (5) Posttraumatic stress disorder: Status: Acute Additional A&P Information This is a 59 year old, white male, with HIV, alcohol use disorder, severe, depression, and suicidality, who presents reporting and openness to starting Disulfiram, with some resistance to the current plan for discharge to an inpatient rehab, hopefully via court order at the beginning of next week. Continue current medication, including medications for withdrawal. Initiate Disulfiram 500 mg every day, likely for two weeks to start, then we may be able to drop it down to 250 mg a day. But we will start there, and the hope would be that he would continue that medication at the rehab. Encourage individual, group, and milieu therapy. Will continue one on one level of observation as he has the nasal cannula, and per policy, he has to be on one on one with that on board. Plan for discharge to an inpatient rehab, at the beginning of the week. Involuntary Hold Information 96 Hour Hold: 96 Hour Involuntary Admission: Yes 96 Hour Hold Ending Date: 01/27/20 96 Hour Hold Ending Time: 14:00 Attestations NPU Medical Necessity Statement*: Inpatient hospitalization is medically necessary and the clinically appropriate intervention at this time. We will monitor medications and make changes as indicated. Patient will be in the hospital for over two midnights. Likely length of stay is four to six days. Coding Level of Care Code Acute Helicopter Technician for Osmin Ordonez Diagnoses Alcohol intoxication F10.929 Alcohol use disorder Major depressive disorder F32.9 HIV (human immunodeficiency virus infection) B20 Posttraumatic stress disorder F43.10
--- NOTE | 2020-01-23 13:46 | PC.SOCIAL ---
Important Medicare Message Reviewed page 2 Important Medicare Message with patient. Previous copy had not been signed due to him being intubated. It was signed, original to patient and copy in chart.
[2020-01-23 14:00] VITALS: BP 102/60; PULSE 86; RESP 18; TEMP 36.8; O2SAT 91
[2020-01-23] MEDS: nicotine 21 mg Patch 1 PATCH TRANSDERMA (19:08)
[2020-01-23] MEDS: hyDROXYzine 25 mg Capsule 50 MG PO (19:23)
--- NOTE | 2020-01-23 19:24 | PC.NURSE ---
PRN VISTARIL PT REQUESTING SOMETHING TO HELP WITH ANXIETY. VISTARIL 50 MG PO ADMINISTERED. WILL MONITOR FOR MEDICATION EFFECTIVENESS.
[2020-01-23 20:12] VITALS: BP 117/82; PULSE 84; RESP 16; TEMP 37; O2SAT 97
[2020-01-23] MEDS: mirtazapine 15 mg Tablet PO (20:28)
[2020-01-23] MEDS: trazodone 150 mg Tablet 300 MG PO (20:28)
[2020-01-23] MEDS: LORazepam 2 mg Tablet PO (21:52)
--- NOTE | 2020-01-23 21:57 | PC.NURSE ---
Addendum entered by Jen Russell LPN 01/23/20 23:04: PT CONTINUES TO BE RESTLESS AND ANXIOUS. WILL CONTINUE TO MONITOR. Original Note: PRN ATIVAN PT BECOMING AGITATED AND PACING THE HALLWAY. PT KEEPS REQUESTING ANTABUSE. ADMINISTERED ATIVAN 2 MG PER [facility] PROTOCOL. WILL CONTINUE TO MONITOR.
[2020-01-23 23:40] VITALS: PULSE 84; RESP 17; O2SAT 93
[2020-01-23] MEDS: ipratropium-albuterol 3 mL Neb INHALATION (23:40)
[2020-01-23] MEDS: budesonide 0.5 mg/2 mL Neb INHALATION (23:40)
[2020-01-23 23:50] VITALS: PULSE 87; O2SAT 94
[2020-01-24] VITALS (8 sets, daily range): BP systolic 117–129; BP diastolic 74–86; PULSE 84–98; RESP 16–20; TEMP 36.4–36.8; O2SAT 92–97
[2020-01-24] MEDS: hyDROXYzine 25 mg Capsule 50 MG PO (02:49)
--- NOTE | 2020-01-24 02:51 | PC.NURSE ---
PRN VISTARIL ADMINISTERED VISTARIL 50 MG PO FOR PT C/O OF INCREASING ANXIETY. WILL MONITOR FOR MEDICATION EFFECTIVENESS.
[2020-01-24] MEDS: pantoprazole DR 40 mg Tablet PO (05:44)
[2020-01-24] MEDS: chlordiazePOXIDE 25 mg Capsule 50 MG PO ×2 (05:44→16:59)
[2020-01-24 07:40] LABS: HIV RNA (CPY/ML) <1.30 NOT DETECTED (NOT DETECTED); HIV RNA LOG <20 NOT DETECTED copies/mL (NOT DETECTED)
[2020-01-24] MEDS: thiamine 100 mg Tablet PO (08:27)
[2020-01-24] MEDS: folic acid 1 mg Tablet PO (08:27)
[2020-01-24] MEDS: apixaban 5 mg Tablet PO ×2 (08:27→17:00)
[2020-01-24] MEDS: multivitamin therapeutic Tablet 1 TAB PO (08:27)
[2020-01-24] MEDS: dilTIAZem ER (24HR) 120 mg Capsule PO (08:27)
[2020-01-24] MEDS: fluconazole 100 mg Tablet PO (08:27)
[2020-01-24] MEDS: budesonide 0.5 mg/2 mL Neb INHALATION ×2 (09:40→20:25)
[2020-01-24] MEDS: ipratropium-albuterol 3 mL Neb INHALATION ×3 (09:40→20:25)
[2020-01-24] MEDS: LORazepam 2 mg Tablet PO (10:17)
--- NOTE | 2020-01-24 10:17 | PC.NURSE ---
Addendum entered by Celia Farmer LPN 01/24/20 11:36: medication effective, patient is lying in bed resting. Original Note: PRN ATIVAN ATIVAN 2MG PO PER [facility] SCORE OF 13. WILL CONTINUE TO MONITOR FOR MEDICATION EFFECTIVENESS.
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
[2020-01-24] MEDS: OLANZapine 5 mg ODT PO ×2 (16:00→20:18)
--- NOTE | 2020-01-24 16:01 | PC.NURSE ---
Addendum entered by Celia Farmer LPN 01/24/20 17:05: MEDICATION EFFECTIVE, NO FURTHER C/O ANXIETY. Original Note: PRN ZYPREXA ZYDIS ZYPREXA ZYDIS 5MG PO PER PATIENT C/O ANXIETY. WILL CONTINUE TO MONITOR FOR MEDICATION EFFECTIVENESS.
[2020-01-24] MEDS: nicotine 21 mg Patch 1 PATCH TRANSDERMA (17:00)
[2020-01-24] MEDS: loperamide 2 mg Capsule PO (18:22)
[2020-01-24] MEDS: trazodone 150 mg Tablet 300 MG PO (20:18)
[2020-01-24] MEDS: mirtazapine 15 mg Tablet PO (20:20)
[2020-01-24] MEDS: trazodone 50 mg Tablet PO (22:23)
[2020-01-25] VITALS (8 sets, daily range): BP systolic 98–114; BP diastolic 67–78; PULSE 87–112; RESP 16–24; TEMP 36.3–37; O2SAT 90–97
[2020-01-25] MEDS: hyDROXYzine 25 mg Capsule 50 MG PO ×3 (03:22→20:36)
[2020-01-25] MEDS: chlordiazePOXIDE 25 mg Capsule 50 MG PO ×2 (06:04→17:45)
[2020-01-25] MEDS: pantoprazole DR 40 mg Tablet PO (06:05)
[2020-01-25] MEDS: fluconazole 100 mg Tablet PO (08:21)
[2020-01-25] MEDS: multivitamin therapeutic Tablet 1 TAB PO (08:21)
[2020-01-25] MEDS: folic acid 1 mg Tablet PO (08:21)
[2020-01-25] MEDS: thiamine 100 mg Tablet PO (08:21)
[2020-01-25] MEDS: dilTIAZem ER (24HR) 120 mg Capsule PO (08:21)
[2020-01-25] MEDS: apixaban 5 mg Tablet PO ×2 (08:21→17:45)
[2020-01-25] MEDS: budesonide 0.5 mg/2 mL Neb INHALATION ×2 (08:40→20:19)
[2020-01-25] MEDS: ipratropium-albuterol 3 mL Neb INHALATION ×3 (08:40→20:19)
--- NOTE | 2020-01-25 12:35 | PM.NPN ---
Subjective NPU Subjective: Interval history: Flakito presents today reading me a letter that he wrote that expressed absolute dedication to the inpatient rehab program and the Antabuse treatment, and that he would follow-up and do everything being asked of him. He also added some comment about his moravian connection. He then spent the time, as he has the last few days, trying to have a plan that has him going to multiple appointments, and then showing up at rehab on or something like that. I assured him that the treatment team with Dr. Zuniga, and the social workers would work with whatever rehab he was going to, but everyone had a full understanding of what could or could not happen during his stay there. Typically, whether or not he could go to specific appointments within the confines of the program, one of the things that he says is critical with him is going to the dentist, or he goes to rehab, and we will have to evaluate with those providers if there is anything that is actually more critical than him going to rehab at this point given how out of control his drinking and addiction has become. Mental Status Exam MSE Comments: This is an underweight, white male, with limited dress, grooming, and improved eye contact. No abnormal movements except for psychomotor retardation which is improving, looking much less sickly today. Cooperative with exam in mild distress at times. Speech was decreased rate and volume. Mood described as better; affect occasionally tearful. Thought process, organized. Thought content: patient denied any suicidal or homicidal ideation, there were no delusions reported or noted, patient denied any auditory or visual hallucinations. Attention, concentration, and memory appeared intact but were not formally tested. Alert and oriented times three. Insight and judgment are improving. Impulse control is impaired. Vitals/I&O/Wt Last Vital Signs Temp 97.4 F 01/25/20 06:00 Pulse 94 01/25/20 06:00 Resp 16 01/25/20 06:00 BP 114/78 01/25/20 06:00 Pulse Ox 97 01/25/20 06:00 Physical Exam Urinary Catheter Management^: Barba: Cath Placed During This Visit: yes Reason for Continuing Indwelling Catheter: Accurate Measurement of Urinary Output in Critically Ill Patients Urinary Catheter Date of Insertion: 01/21/20 Urinary Catheter Time of Insertion: 22:40 Data NPU : 01/23/20 07:15 01/23/20 07:15 A&P Additional A&P Information (1) Alcohol intoxication: (2) Alcohol use disorder: (3) Major depressive disorder: (4) HIV (human immunodeficiency virus infection): (5) Posttraumatic stress disorder: Additional A&P Information This is a 59 year old, white male, with HIV, alcohol use disorder, severe, depression, and suicidality, who presents reporting and openness to starting Disulfiram, with some resistance to the current plan for discharge to an inpatient rehab, hopefully via court order at the beginning of next week. Continue current medication, including medications for withdrawal. Initiate Disulfiram 500 mg every day, likely for two weeks to start, then we may be able to drop it down to 250 mg a day. But we will start there, and the hope would be that he would continue that medication at the rehab. Encourage individual, group, and milieu therapy. Will continue one on one level of observation as he has the nasal cannula, and per policy, he has to be on one on one with that on board. Plan for discharge to an inpatient rehab, at the beginning of the week. Encourage individual, group, and milieu therapy. Will continue one on one level of observation as he has the nasal cannula, and per policy, he has to be on one on one with that on board. Plan for discharge to an inpatient rehab, at the beginning of the week. Involuntary Hold Information 96 Hour Hold: 96 Hour Involuntary Admission: Yes 96 Hour Hold Ending Date: 01/27/20 96 Hour Hold Ending Time: 14:00 Attestations NPU Medical Necessity Statement*: Inpatient hospitalization is medically necessary and the clinically appropriate intervention at this time. We will monitor medications and make changes as indicated. Likely length of stay is 2-4 days.We are proceeding forward with court ordered rehab the paperwork has been submitted. Coding Level of Care Code Acute [employer] Supervisor for Osmin Ordonez
[2020-01-25] MEDS: loperamide 2 mg Capsule PO (13:53)
[2020-01-25] MEDS: nicotine 21 mg Patch 1 PATCH TRANSDERMA (19:45)
--- NOTE | 2020-01-25 19:58 | PC.NURSE ---
PATIENT HAS 02 4 L N/C WITH LONG TUBING, HAS 1-1 SITTER CONTINUOUSLY.
[2020-01-25] MEDS: trazodone 150 mg Tablet 300 MG PO (20:36)
[2020-01-25] MEDS: OLANZapine 5 mg ODT PO (20:36)
[2020-01-25] MEDS: mirtazapine 15 mg Tablet PO (20:37)
--- NOTE | 2020-01-25 20:39 | PC.NURSE ---
SAID TO GIVE DOSE NOW.
[2020-01-25] MEDS: trazodone 50 mg Tablet PO (22:20)
[2020-01-26 03:16] VITALS: O2SAT 95
[2020-01-26] MEDS: pantoprazole DR 40 mg Tablet PO (05:59)
[2020-01-26] MEDS: chlordiazePOXIDE 25 mg Capsule 50 MG PO (05:59)
[2020-01-26 06:00] VITALS: BP 106/72; PULSE 56; RESP 17; TEMP 36.4; O2SAT 98
[2020-01-26] MEDS: apixaban 5 mg Tablet PO ×2 (08:56→17:30)
[2020-01-26] MEDS: fluconazole 100 mg Tablet PO (08:56)
[2020-01-26] MEDS: dilTIAZem ER (24HR) 120 mg Capsule PO (08:56)
[2020-01-26] MEDS: sulfamethoxazole-trimeth DS 160-800 mg Tablet 1 TAB PO (08:56)
[2020-01-26] MEDS: thiamine 100 mg Tablet PO (08:56)
[2020-01-26] MEDS: folic acid 1 mg Tablet PO (08:56)
[2020-01-26] MEDS: multivitamin therapeutic Tablet 1 TAB PO (08:56)
[2020-01-26] MEDS: OLANZapine 5 mg ODT PO ×2 (09:02→17:59)
--- NOTE | 2020-01-26 09:02 | PC.NURSE ---
PRN ZYPREXA ZYDIS ZYPREXA ZYDIS 5MG PO PER PATIENT C/O ANXIETY/AGITATION. WILL CONTINUE TO MONITOR FOR MEDICATION EFFECTIVENESS.
[2020-01-26] MEDS: budesonide 0.5 mg/2 mL Neb INHALATION ×2 (09:57→20:13)
[2020-01-26] MEDS: ipratropium-albuterol 3 mL Neb INHALATION ×2 (09:58→20:13)
[2020-01-26 09:59] VITALS: PULSE 56; RESP 16; O2SAT 98
--- NOTE | 2020-01-26 10:00 | PC.NURSE ---
PRN ZYPREXA ZYDIS FOLLOW UP MEDICATION EFFECTIVE. NO FURTHER C/O ANXIETY/AGITATION.
--- NOTE | 2020-01-26 12:09 | PM.NPN ---
Subjective NPU Subjective: Interval history: Brother was educated with regard to the upcoming events whereby he will go to court and be offered the opportunity to make an argument that he does not need rehab for his alcohol use if he so desires. He indicated his willingness to go to rehab at this time. We also discussed his problems with insomnia and historic use of trazodone and mirtazapine. He was also educated with regard to the effects of taking Librium on a regular basis which she is doing right now due to the alcohol withdrawal. So it is difficult to make long-term plans regarding assistance with sleep pattern. Mental Status Exam MSE Comments: This is a tremuous white male,with good eye contact. No abnormal movements, except for some mild tremor. No acute distress. Speech was nl rate and volume. Mood described as OK ; affect congruent. Thought process, organized. Thought content: patient denied any suicidal or homicidal ideation, there were no delusions reported or noted, patient denied any auditory or visual hallucinations. Attention, concentration, and memory appear intact but none were formally tested. He is alert and oriented times three. Insight and judgment are fair. Impulse control is impaired. Vitals/I&O/Wt Last Vital Signs Temp 97.6 F 01/26/20 06:00 Pulse 56 L 01/26/20 09:59 Resp 16 01/26/20 09:59 BP 106/72 01/26/20 06:00 Pulse Ox 98 01/26/20 09:59 Weight last 48 hrs Weight 78.245 kg Physical Exam Urinary Catheter Management^: Barba: Cath Placed During This Visit: yes Reason for Continuing Indwelling Catheter: Accurate Measurement of Urinary Output in Critically Ill Patients Urinary Catheter Date of Insertion: 01/21/20 Urinary Catheter Time of Insertion: 22:40 Data NPU : 01/23/20 07:15 01/23/20 07:15 Micro: Microbiology 01/20/20 22:26 Blood Culture - Final Blood NO GROWTH AFTER 5 DAYS 01/20/20 22:26 Blood Culture - Final Blood NO GROWTH AFTER 5 DAYS Microbiology 01/20/20 22:26 Blood Blood Culture - Final NO GROWTH AFTER 5 DAYS 01/20/20 22:26 Blood Blood Culture - Final NO GROWTH AFTER 5 DAYS A&P Assessment and plan (1) Alcohol intoxication: Status: Resolved (2) Alcohol use disorder: Status: Acute (3) Major depressive disorder: Status: Acute (4) HIV (human immunodeficiency virus infection): Status: Acute (5) Posttraumatic stress disorder: Status: Acute Additional A&P Information (1) Alcohol intoxication: (2) Alcohol use disorder: (3) Major depressive disorder: (4) HIV (human immunodeficiency virus infection): (5) Posttraumatic stress disorder: This is a 59 year old, white male, with HIV, alcohol use disorder, severe, depression, and suicidality, who presents reporting and openness to starting Disulfiram, with some resistance to the current plan for discharge to an inpatient rehab, hopefully via court order at the beginning of next week. Continue current medication, including medications for withdrawal. Initiate Disulfiram 500 mg every day, likely for two weeks to start, then we may be able to drop it down to 250 mg a day. But we will start there, and the hope would be that he would continue that medication at the rehab. (1) Alcohol intoxication: (2) Alcohol use disorder: (3) Major depressive disorder: (4) HIV (human immunodeficiency virus infection): (5) Posttraumatic stress disorder: Additional A&P Information This is a 59 year old, white male, with HIV, alcohol use disorder, severe, depression, and suicidality, who presents reporting and openness to starting Disulfiram, with some resistance to the current plan for discharge to an inpatient rehab, hopefully via court order at the beginning of next week. Continue current medication, including medications for withdrawal. Initiate Disulfiram 500 mg every day, likely for two weeks to start, then we may be able to drop it down to 250 mg a day. But we will start there, and the hope would be that he would continue that medication at the rehab. Hospital day #8: Decrease Librium to 25 mg twice daily. Add gabapentin 600 mg at bedtime targeting sleep. He was instructed that when he finally is in an environment in which is easier to sleep, it is permissible to discontinue this medication. He was also informed that the Librium would again be decreased in 1 week. Encourage individual, group, and milieu therapy. Will continue one on one level of observation as he has the nasal cannula, and per policy, he has to be on one on one with that on board. Plan for discharge to an inpatient rehab, at the beginning of the week. Encourage individual, group, and milieu therapy. Will continue one on one level of observation as he has the nasal cannula, and per policy, he has to be on one on one with that on board. Plan for discharge to an inpatient rehab, at the beginning of the week. Involuntary Hold Information 96 Hour Hold: 96 Hour Involuntary Admission: Yes 96 Hour Hold Ending Date: 01/27/20 96 Hour Hold Ending Time: 14:00 Attestations NPU Medical Necessity Statement*: Patient will remain in the hospital another 1-2 nights for the completion of his 96-hour involuntary commitment. Coding Level of Care Code Acute School Photograph Editor for Osmin Ordonez Diagnoses Alcohol intoxication F10.929 Alcohol use disorder Major depressive disorder F32.9 HIV (human immunodeficiency virus infection) B20 Posttraumatic stress disorder F43.10
[2020-01-26 13:57] VITALS: BP 114/78; PULSE 96; RESP 20; TEMP 36.3; O2SAT 92
[2020-01-26] MEDS: chlordiazePOXIDE 25 mg Capsule PO (17:30)
--- NOTE | 2020-01-26 18:00 | PC.NURSE ---
Addendum entered by Celia Farmer LPN 01/26/20 18:48: medication effective. no further c/o anxiety. Original Note: PRN ZYPREXA ZYDIS ZYPREXA ZYDIS 5MG PO PER PATIENT C/O ANXIETY/AGITATION. WILL CONTINUE TO MONITOR FOR MEDICATION EFFECTIVENESS.
[2020-01-26] MEDS: nicotine 21 mg Patch 1 PATCH TRANSDERMA (19:43)
[2020-01-26 20:06] VITALS: BP 110/71; PULSE 97; RESP 17; TEMP 36.5; O2SAT 84
[2020-01-26 20:13] VITALS: PULSE 88; RESP 20; O2SAT 90
[2020-01-26] MEDS: mirtazapine 15 mg Tablet PO (20:58)
[2020-01-26] MEDS: gabapentin 300 mg Capsule 600 MG PO (20:58)
[2020-01-26] MEDS: trazodone 150 mg Tablet 300 MG PO (20:58)
--- NOTE | 2020-01-26 21:16 | PC.NURSE ---
Continuous oxygen at 4 liter per NC. Patient denied air hunger.
[2020-01-27 03:12] VITALS: PULSE 78; RESP 19; O2SAT 92
[2020-01-27 06:00] VITALS: BP 115/72; PULSE 110; RESP 14; TEMP 36.6; O2SAT 90
[2020-01-27] MEDS: chlordiazePOXIDE 25 mg Capsule PO (06:13)
[2020-01-27] MEDS: pantoprazole DR 40 mg Tablet PO (06:13)
[2020-01-27] MEDS: folic acid 1 mg Tablet PO (09:27)
[2020-01-27] MEDS: fluconazole 100 mg Tablet PO (09:27)
[2020-01-27] MEDS: multivitamin therapeutic Tablet 1 TAB PO (09:27)
[2020-01-27] MEDS: apixaban 5 mg Tablet PO (09:27)
[2020-01-27] MEDS: dilTIAZem ER (24HR) 120 mg Capsule PO (09:27)
[2020-01-27] MEDS: thiamine 100 mg Tablet PO (09:27)
[2020-01-27] MEDS: nicotine 21 mg Patch 1 PATCH TRANSDERMA (09:54)
[2020-01-27] MEDS: OLANZapine 5 mg ODT PO (09:55)
--- NOTE | 2020-01-27 09:55 | PC.NURSE ---
PRN ZYPREXA ZYDIS ZYPREXA ZYDIS 5MG PO PER PATIENT C/O AGITATION/ANXIETY. WILL CONTINUE TO MONITOR FOR MEDICATION EFFECTIVENESS.
[2020-01-27] MEDS: budesonide 0.5 mg/2 mL Neb INHALATION (10:01)
[2020-01-27] MEDS: ipratropium-albuterol 3 mL Neb INHALATION (10:01)
[2020-01-27 10:02] VITALS: PULSE 90; RESP 18; O2SAT 91
--- NOTE | 2020-01-27 11:00 | PC.NURSE ---
PRN ZYPREXA ZYDIS FOLLOW UP MEDICATION EFFECTIVE. NO FURTHER C/O ANXIETY/AGITATION.
[2020-01-27] MEDS: hyDROXYzine 25 mg Capsule 50 MG PO (13:18)
--- NOTE | 2020-01-27 13:18 | PC.NURSE ---
PRN VISTARIL VISTARIL 50MG PO PER PATIENT C/O ANXIETY. WILL CONTINUE TO MONITOR FOR MEDICATION EFFECTIVENESS.
--- NOTE | 2020-01-27 13:45 | PC.NURSE ---
PRN VISTARIL FOLLOW UP MEDICATION EFFECTIVE, NO FURTHER C/O ANXIETY. PATIENT GETTING READY TO LEAVE FOR COURT.
--- NOTE | 2020-01-27 13:50 | PC.NURSE ---
PATIENT OFF UNIT FOR COURT ACCOMPANIED BY DEPUTLarry
[2020-01-27 14:26] VITALS: BP 115/72; PULSE 90; RESP 18; TEMP 36.6; O2SAT 91
--- NOTE | 2020-01-27 15:15 | PC.NURSE ---
PATIENT NOTE PATIENT ARRIVED BACK TO UNIT FROM COURT, 1:1 SITTER WITH PATIENT.
--- NOTE | 2020-01-28 09:45 | P.DS_ITS ---
Diagnoses at Discharge Discharge Diagnosis (1) Alcohol intoxication: Status: Resolved (2) Alcohol use disorder: Status: Chronic (3) Major depressive disorder: Status: Chronic (4) HIV (human immunodeficiency virus infection): Status: Chronic (5) Posttraumatic stress disorder: Status: Chronic Reason for Visit Reason for Visit: ETOH/AMS Brief History: ICU H&P: Flakito Almanzar is a 59 year old male [place] history of A. fib, chronic anticoagulation with Eliquis, pulmonary embolism, pulmonary hypertension, lymphoma, HIV with history of suicidal ideation, major depressive disorder who was admitted yesterday for alcohol withdrawal symptoms. He left AGAINST MEDICAL ADVICE in the morning was brought in today by EMS after he was found obtunded on the floor. He was very combative and agitated, he was extremely distressed, he was requiring 8 L of oxygen for his hypoxia, ERphysician intubated him. At the time of my evaluation he was very agitated on sedated propofol infusion, fentanyl was added after getting 4 mg of Versed. I requested another blood gas because respiratory acidosis on ventilator. Diagnostics in the ER revealed normal leukocytosis, he was afebrile, hypokalemia, alcohol level 263, chest x- ray is revealing aspiration pneumonitis. Psychiatric consult: Flakito Almanzar is a 59 year old male who presented to the emergency room on 01-19-20 and was brought in with his [facility]. This was a month after his previous hospitalization to the ICU for alcohol use, where he refused rehabilitation. He reportedly had been drinking a 24 pack of beer plus hard liquor everyday, for months, and he had reportedly threatened suicide several times. He was admitted to the ICU for definitive treatment of those issues. After two days in the ICU, he left the hospital against medical advise, and he returned on 01-20-20 late at night, and it had been identified that he had just left AMA; he was quite intoxicated and was in respiratory distress, only citing at 80% on 6 liters of oxygen and unable to give a history because of his intoxication and respiratory distress. So he was once admitted to the ICU for definitive treatment for his withdrawal and respiratory distress. Once he was medically cleared from the ICU, he was transferred to the neuropsychiatric unit for definitive treatment of his alcohol use disorder, depression, and suicidality. He presents today still resistant to the idea of inpatient rehabilitation. He was open to the idea of the utilization of Disulfiram / Antabuse after discussing the risks, benefits, and alternatives, but is resistant to the idea of rehab. We discussed the fact that his mom was planning on possibly challenging him in court to force him to go to an inpatient detox, against his will, which he was very upset about. We had a long discussion about how, at this point, his decision making is so flawed in relation to his alcohol that everyone treating him has grave concerns about which time we hear about him that is going to be the last time, due to how out of control his drinking is in relation to his overall medical issues. Ultimately, he seemed accepting that there was a high likelihood that we would support him being sent to rehab on a forced court order. We reviewed his last hospitalization notes, and he agreed that there had been no substantive changes and it represented his psycho-social history appropriately. Hospital Course Hospital Course Assessment and plan (1) Alcohol intoxication: Status: Acute (2) Alcohol use disorder: Status: Acute (3) Major depressive disorder: Status: Acute (4) HIV (human immunodeficiency virus infection): Status: Acute (5) Posttraumatic stress disorder: Status: Acute Additional A&P Information This is a 59 year old, white male, with HIV, alcohol use disorder, severe, depression, and suicidality, who presents reporting and openness to starting Disulfiram, with some resistance to the current plan for discharge to an inpatient rehab, hopefully via court order at the beginning of next week. Continue current medication, including medications for withdrawal. Initiate Disulfiram 500 mg every day, likely for two weeks to start, then we may be able to drop it down to 250 mg a day. But we will start there, and the hope would be that he would continue that medication at the rehab. Encourage individual, group, and milieu therapy. Will continue one on one level of observation as he has the nasal cannula, and per policy, he has to be on one on one with that on board. Plan for discharge to an inpatient rehab, at the beginning of the week. Hospital Day #5: Initiate Disulfiram 500 mg every day, Hosapital Day #6: Interval history: Flakito was educated with regard to the upcoming events whereby he will go to court and be offered the opportunity to make an argument that he does not need rehab for his alcohol use if he so desires. He indicated his willingness to go to rehab at this time. We also discussed his problems with insomnia and historic use of trazodone and mirtazapine. He was also educated with regard to the effects of taking Librium on a regular basis which she is doing right now due to the alcohol withdrawal. So it is difficult to make long-term plans regarding assistance with sleep pattern. Hospital day #8: Decrease Librium to 25 mg twice daily. Add gabapentin 600 mg at bedtime targeting sleep. He was instructed that when he finally is in an environment in which is easier to sleep, it is permissible to discontinue this medication. He was also informed that the Librium would again be decreased in 1 week. The patient was adjudicated as not requiring a mandated 30 day inpatient rehabilitation program. He was discharged to home. He claimed to be intent on participating in outpatient rehab. Involuntary Hold Information 96 Hour Hold: 96 Hour Involuntary Admission: Yes 96 Hour Hold Ending Date: 01/27/20 96 Hour Hold Ending Time: 14:00 Mental Status Exam MSE Comments: Discharge Mental Status Exam: Appearance: hygiene is good; no gross neurological deficits., gait is unremarkable; AIMS=0 Speech: Speech is of normal rate and rhythm and easily understood. Thought processes: Thought processes are abstract. Judgment is adequate for safety. Associations: intact Psychotic processes: There is no indication of guarding or paranoia. There is no attention to the internal stimuli. Auditory and visual hallucinations are denied. Judgment: Insight is fair. Problem solving skills are adequate for safety. Orientation: The patient is oriented to person, place time and situation. Memory: no deficits noted in immediate, intermediate, or remote spheres. Attention: The patient is alert and interpersonally engaged. Language: Verbalizations are coherent. Fund of knowledge: Fund of knowledge is adequate. Affect/Mood: Affect is consistent with a euthymic mood. denied suicidal ideation Affective range is appropriate. Psychosis: perception unimpaired except through cognitive distortion; reality testing intact. Physical Exam Urinary Catheter Management^: Barba: Cath Placed During This Visit: yes Reason for Continuing Indwelling Catheter: Accurate Measurement of Urinary Output in Critically Ill Patients Urinary Catheter Date of Insertion: 01/21/20 Urinary Catheter Time of Insertion: 22:40 Discharge Data Data Completed and Pending: Completed Studies During Hospitalization Category Date Time Status CT angio chest PE protcl 90776 Urge nt Cat Scan 01/20/20 22:[address] head wo con* 7 0450 Urgent Cat Scan 01/20/20 21:18 Completed XR chest 1V zane ble [id number] Routine Exams 01/21/20 02:19 Completed XR chest 1V zane ble [id number] Stat Exams 01/20/20 21:25 Completed XR chest 1V zane ble [id number] Stat Exams 01/20/20 21:48 Completed Pending at discharge Category Date Time Status Miscellaneous Anuja t Routine Lab 01/22/20 12:17 Received Vitals: Last Vital Signs Temp 97.9 F 01/27/20 14:26 Pulse 90 01/27/20 14:26 Resp 18 01/27/20 14:26 BP 115/72 01/27/20 14:26 Pulse Ox 91 01/27/20 14:26 Discharge Plan Discharge Patient Disposition: Home, Self-Care Condition: Stable Prescriptions: New fluconazole 100 mg Tablet 100 mg PO DAILY Qty: 30 RF: 0 ipratropium-albuterol 0.5 mg-3 mg(2.5 mg base)/3 mL Solution For Nebulization 3 ml inhalation Q6H.RESPIRATORY Qty: 240 RF: 2 sulfamethoxazole-trimethoprim 800-160 mg Tablet 1 tab PO MoWeFr@0800 Qty: 15 RF: 3 chlordiazepoxide HCl 25 mg Capsule 25 mg PO Q12H Qty: 15 RF: 0 pantoprazole 40 mg Tablet,Delayed Release (Dr/Ec) 40 mg PO QAM Qty: 30 RF: 3 trazodone 150 mg Tablet 300 mg PO BEDTIME Qty: 60 RF: 2 gabapentin 300 mg Capsule 600 mg PO BEDTIME Qty: 60 RF: 2 budesonide 0.5 mg/2 mL Suspension For Nebulization 0.5 mg inhalation BID.RESPIRATORY Qty: 60 RF: 2 diltiazem HCl 120 mg Capsule,Extended Release 24hr 120 mg PO DAILY Qty: 30 RF: 2 folic acid 1 mg Tablet 1 mg PO DAILY Qty: 30 RF: 0 mirtazapine 15 mg Tablet 15 mg PO BEDTIME Qty: 30 RF: 2 Thera 400 mcg Tablet 1 tab PO DAILY Qty: 30 RF: 0 Eliquis 5 mg Tablet 5 mg PO BID Qty: 30 RF: 2 Dolutegravir-La 1 tab PO DAILY Qty: 30 RF: 2 Macitentan [Ops 10 mg PO DAILY Qty: 30 RF: 2 chlordiazepoxide HCl 10 mg capsule 10 mg PO Q12H Qty: 14 RF: 0 Continued potassium chloride [Klor-Con M20] 20 mEq tablet,ER particles/crystals 20 meq PO BID RF: 0 Discontinued fluconazole [Diflucan] 100 mg tablet 100 mg PO DAILY RF: 0 sildenafil (pulm.hypertension) 20 mg tablet 20 mg PO TID RF: 0 pantoprazole 40 mg tablet,delayed release (DR/EC) 40 mg PO QAM RF: 0 diltiazem HCl [Cartia XT] 240 mg capsule,extended release 24hr 240 mg PO DAILY Qty: 90 RF: 3 fentanyl 50 mcg/hr Patch 72 Hour 1 patch TRANSDERMAL Q72H RF: 0 Eliquis 5 mg Tablet 5 mg PO BID RF: 0 Opsumit 10 mg tablet 10 mg PO DAILY RF: 0 mirtazapine [Remeron] 15 mg tablet 15 mg PO BEDTIME RF: 0 Dovato 50-300 mg tablet 50 - 300 tab PO DAILY RF: 0 multivitamin [Multiple Vitamins] Tablet 1 tab PO DAILY RF: 0 trazodone 150 mg Tablet 300 mg PO BEDTIME RF: 0 albuterol sulfate [Ventolin HFA] 90 mcg/actuation Hfa Aerosol Inhaler 2 puff INHALATION 6XD PRN (Reason: Shortness Of Breath) RF: 0 testosterone 1.62 % (40.5 mg/2.5 gram) Gel In Packet See Rx Instructions .ROUTE .COMPLEX RF: 0 sulfamethoxazole-trimethoprim [Bactrim DS] 800-160 mg Tablet See Rx Instructions .ROUTE .COMPLEX RF: 0 bupropion HCl 150 mg tablet extended release 24 hr 150 mg PO DAILY RF: 0 budesonide-formoterol [Symbicort] 80-4.5 mcg/actuation HFA aerosol inhaler 2 puff INHALATION BID RF: 0 albuterol sulfate 2.5 mg /3 mL (0.083 %) solution for nebulization 2.5 mg INHALATION Q4-5H PRN (Reason: unknown) RF: 0 No Action (DME) Compact Compressor Nebulizer Misc See Rx Instructions .ROUTE .MEDSUPPLY Qty: 1 RF: 0 Discharge Orders: Discharge Order (Routine); Ordered 01/27/20 Ordered By: Durga Zuniga Referrals: Rasheed Spivey MD [Primary Care Provider] - Patient Instructions: Chlordiazepoxide (By mouth), Diltiazem (By mouth), Trazodone (By mouth), Fluconazole (By mouth), Folic Acid (By mouth), Gabapentin (By mouth), Budesonide (Into the nose), Mirtazapine (By mouth), Pantoprazole (By mouth), Apixaban (By mouth), Dolutegravir (By mouth), Macitentan (By mouth) Discharge Date/Time: 01/27/20 16:34 Discharge Attestations NPU Time Spent in Discharge Care*: greater than 30 min Coding Level of Care Code Acute Undraped Artist Model for Chg Fwd Diagnoses Alcohol intoxication F10.929 Alcohol use disorder Major depressive disorder F32.9 HIV (human immunodeficiency virus infection) B20 Posttraumatic stress disorder F43.10
== END 2020-01-27 16:34 | disposition home or self-care (01) | DRG 208 ==
LOC: ER 23:42 → ICU 23:47 → NP 01-22 12:31
PROVIDERS: Emergency Medicine; Student in an Organized Health Care Education/Training Program; Admitting Provider Internal Medicine; PCP Family Medicine; Visit Provider Psychiatry & Neurology Psychiatry
DX: J96.01 Acute respiratory failure with hypoxia (principal); J69.0 Pneumonitis due to inhalation of food and vomit; B20 Human immunodeficiency virus [HIV] disease; I48.20 Chronic atrial fibrillation, unspecified; E87.2 Acidosis; R45.851 Suicidal ideations; F10.239 Alcohol dependence with withdrawal, unspecified; F10.229 Alcohol dependence with intoxication, unspecified; F32.9 Major depressive disorder, single episode, unspecified; F43.12 Post-traumatic stress disorder, chronic; Z79.01 Long term (current) use of anticoagulants; Z86.711 Personal history of pulmonary embolism; Z91.14 Patient's other noncompliance with medication regimen; E87.6 Hypokalemia; Y90.8 Blood alcohol level of 240 mg/100 ml or more; J44.9 Chronic obstructive pulmonary disease, unspecified; Z85.72 Personal history of non-Hodgkin lymphomas; I27.20 Pulmonary hypertension, unspecified; F17.210 Nicotine dependence, cigarettes, uncomplicated; R19.7 Diarrhea, unspecified
CPT/HCPCS: 12345; 31500; 36415; 36600; 51702; 70450; 71045; 71275; 80048; 80053; 80306; 80307; 82274; 82803; 83630; 83690; 83735; 83880; 84100; 84484; 85025; 86361; 87040; 87327; 87493; 87506; 87536; 93005; 94002; 94003; 94640; 94799; 96372; 96375; 99283; 99285; C9113; J2060; J2250; J2543; J2704; J2930; J3010; J3370; J3411; J3480; J3490; J7030; J7050; J7626; Q9967

== ENCOUNTER 2020-04-10 20:50 | Inpatient (IN) | payer MEDICARE, MEDICAID, SELFPAY ==
[2020-04-10] VITALS (21 sets, daily range): BP systolic 59–162; BP diastolic 41–95; PULSE 82–114; RESP 7–23; TEMP 36.8–36.9; O2SAT 87–98; BMI 27.3
--- NOTE | 2020-04-10 20:52 | XRR_ITS ---
PROCEDURE INFORMATION: Exam: XR Chest, 1 View Exam date and time: 04/10/2020 9:42 PM Age: 59 years old Clinical indication: Device placement; Ett placement (vent status); Patient HX: Intubated, ng tube; Additional info: Altered mental status TECHNIQUE: Imaging protocol: XR of the chest Views: 1 view. COMPARISON: CR XR chest 1V portable [id number] 01/21/2020 3:25 AM FINDINGS: Tubes, catheters and devices: ET tube tip over the distal trachea, 1 cm proximal to the cheng. Lungs: Left discoid atelectasis and/or scarring. Pleural space: Unremarkable. No pleural effusion. No pneumothorax. Heart/Mediastinum: Possible right hilar mass versus prominent pulmonary artery. CTA chest dated January 20, 2020 reveals pulmonary artery hypertension with no hilar mass. Bones/joints: Unremarkable. XR/XR chest 1V portable [id number] IMPRESSION: 1. Possible right hilar mass versus prominent pulmonary artery. CTA chest dated January 20, 2020 reveals pulmonary artery hypertension with no hilar mass. 2. ET tube tip over the distal trachea, 1 cm proximal to the cheng.
--- NOTE | 2020-04-10 20:53 | ECG_ITS ---
[facility] Test Date: 2020-04-10 Pat Name: Flakito Almanzar Department: Room: ICU07 Gender: Male [employer]: : 1960 Requested By: Rema Rich Order Number: [id number] Papo MD: Jori Cisse M.D. Measurements Intervals [place] Rate: 114 P: 58 TN: 177 QRS: 76 QRSD: 89 T: 91 QT: 342 QTc: 472 Interpretive Statements SINUS TACHYCARDIA MODERATE ST DEPRESSION [0.05+ mV ST DEPRESSION] Compared to ECG 01/21/2020 04:17:19 ST (T wave) deviation now present Electronically Signed On 04-12-2020 19:27:09 CDT by Jori Cisse M.D. [email or web address]
--- NOTE | 2020-04-10 20:56 | ED_ITS ---
HPI - General Adult General: Chief complaint: Overdose Stated complaint: SI Time Seen by Provider: 04/10/20 20:52 Source: EMS Mode of arrival: EMS Limitations: altered mental status History of Present Illness: HPI narrative: Mr. Almanzar is a 59-year-old male who arrives via EMS after receiving sedation for agitation and combativeness. He received ketamine IM to control his aggression. 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 He admitted to police he took 30 trazodone but upon inspection of the room he was in multiple medicine bottles were empty. It is undetermined what the patient took or how much. No further history can be obtained. 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 No evidence of recurrence, currently getting [facility] [employer] [facility] prophylaxis with intrathecal methotrexate with prophylactic radiation to right testicle, CHOP treatment Meningitis Orchialgia Pulmonary embolism DVT of right leg, 2009 Pulmonary hypertension After PE Surgical History H/O colonoscopy H/O hemorrhoidectomy History of orchiectomy, unilateral Family History Other No pertinent family history Social History Smoking and tobacco status: current every day smoker Alcohol intake: current Household members: family Housing: House Physical Exam Const: EXAM LIMITATIONS: altered mental status GENERAL APPEARANCE: lethargic ORIENTATION/CONSCIOUSNESS: Yes lethargic HENMT: COMMON NORMALS: normocephalic, atraumatic, EAC's normal and Normal external nose present HEAD & SCALP: normocephalic and atraumatic FACE & SINUS: normal facial exam NOSE: Normal external nose present EXTERNAL AUDITORY CANAL: EAC's normal MOUTH: Abnormal oral and palatal mucosa present (dry) Eye: COMMON NORMALS: Equal, round and reactive pupils present PUPIL: Yes Equal, round and reactive pupils present Neck/C-Spine: COMMON NORMALS: supple, no meningeal signs and no JVD Chest: COMMONS NORMALS: normal inspection of the chest and normal palpation of entire chest wall Resp: EFFORT & INSPECTION: Yes labored AUSCULTATION: rhonchi and wheezes Cardio: COMMON NORMALS: no JVD, regular rate, regular rhythm, S1 normal heart sound present and S2 normal heart sound present RATE: regular rate RHYTHM: regular rhythm HEART SOUNDS: S1 normal heart sound present and S2 normal heart sound present GI: COMMON NORMALS: Soft to palpation and No hepatosplenomegaly present INSPECTION: Yes normal to inspection, No abdominal wall ecchymosis, Yes scaphoid and No Fluid wave present AUSCULTATION: Yes normoactive bowel sounds PALPATION: Yes Soft to palpation, No Guarding due to palpation present (GI), No Rigid due to palpation and Yes No hepatosplenomegaly present PERCUSSION: no fluid wave Extremity: COMMON NORMALS: normal to inspection, capillary refill normal, no joint enlargement and no clubbing, cyanosis or edema Neuro: [place] COMA SCALE: document [facility] findings [place] coma scale eye opening: To pressure [place] coma scale verbal response: None [place] coma scale motor response: Localising [place] coma scale total score: 8 SENSORIUM/ORIENTATION: Yes lethargic MENINGEAL SIGNS: Yes no meningeal signs Skin: COMMON NORMALS: no rashes or lesions noted, no wounds and turgor normal GENERAL SKIN EXAM: no rashes or lesions noted and turgor normal Procedures Intubation sedative: Etomidate Mg Given: 20 Course Vital Signs: Vital signs: Vital Signs Temperature 98.5 F 04/10/20 21:18 Pulse Rate 106 H 04/10/20 22:30 Respiratory Rate 23 H 04/10/20 22:30 Blood Pressure 152/89 04/10/20 22:30 Pulse Oximetry 93 04/10/20 22:30 MDM - General Adult MDM Narrative: Medical decision making narrative: The case was reviewed with Dr. Osborn he agrees to admit the patient for further evaluation and care. He is aware of the patient's past medical history. Lab Data: Attestation: I reviewed the patient's lab results. Labs: Lab Results 04/10/20 04/10/20 04/10/20 Range/Units 20:30 20:30 20:30 WBC 7.4 (4.0-10.0) 10^3/ uL RBC 4.85 (4.1-5.3) 10^6/u L Hgb 14.2 (11.7-16.6) g/dL Hct 43.7 (42.0-52.0) % MCV 90.1 (80-94) fL MCH 29.3 (28.0-34.0) pg MCHC 32.5 (30.0-36.0) g/dL RDW 14.4 (12.1-15.1) % Plt Count 194 (130-400) 10^3/c mm MPV 9.3 (7.4-10.4) fL Neut % (Auto) 35.6 % Lymph % (Auto) 53.4 % [place] % (Auto) 7.0 % Eos % (Auto) 3.1 % Baso % (Auto) 0.8 % Neut # (Auto) 2.63 (1.8-7.7) 10^3/u L Lymph # (Auto) 4.0 (0.8-4.8) 10^3/u L [place] # (Auto) 0.5 (0.2-0.9) 10^3/u L Eos # (Auto) 0.2 (0.0-0.8) 10^3/u L Baso # (Auto) 0.1 (0.0-0.1) 10^3/u L Nucleated RBC % (a uto) 0 % Nucleated RBCs # 0.0 /100WBC PT 12.30 (12.1-14.9) SECO NDS INR 0.89 (0.8-1.2) APTT 27.7 (23.9-36.7) SECO NDS Specimen Type Sample Site ABG pH (7.35-7.45) ABG pCO2 (35-45) mmHg ABG pO2 (80.0-100.0) mmH g ABG HCO3 (22-26) mmol/L ABG Base Excess (-2.0-2.0) mmol/ L Jean-Paul Test Hematocrit (42-52) % O2 Delivery Device Mechanical Rate FiO2 % PEEP cmH20 Data Sme ID Sodium 135 L (136-145) mmol/L Potassium 4.0 (3.5-5.1) mmol/L Chloride 99 (98-107) mmol/L Carbon Dioxide 18 L (22-29) mmol/L Anion Gap 22.0 H (5-19) BUN 4 L (6-20) mg/dL Creatinine 0.7 (0.7-1.2) mg/dL GFR Calculation 115.8 (90-130) mL/min Glucose 105 (65-115) mg/dL Calculated Osmolal ity 277 L (285-295) mOsm/k g Calcium 8.0 L (8.5-10.5) mg/dL Magnesium 2.2 (1.7-2.3) mg/dL Total Bilirubin 0.3 (0.15-1.2) mg/dL AST 65 H (0-40) U/L ALT 77 H (0-41) U/L Alkaline Phosphata se 124 (40-130) IU/L Creatine Kinase 82 (39-308) U/L Troponin T Baselin e (0-15) ng/L Total Protein 7.3 (6.6-8.7) g/dL Albumin 4.2 (3.5-5.2) g/dL Globulin 3.1 (1.3-4.6) g/dL TSH 0.71 (0.27-4.20) uIU/ mL Urine Color (Yellow) Urine Appearance (CLEAR) Urine pH (5-7) Ur Specific Gravit y (1.005-1.030) Urine Protein (Negative) Urine Glucose (UA) (Normal) Urine Ketones (Negative) Urine Blood (Negative) Urine Nitrate (Negative) Urine Bilirubin (Negative) Urine Urobilinogen (Negative) mg/dL Ur Leukocyte Dayna ase (Negative) Salicylates < 0.3 L (3-10) mg/dL Urine Opiates Scre en (Negative) ng/mL Acetaminophen < 5.0 L (10-30) ug/mL Ur Barbiturates Sc reen (Negative) ng/mL Ur Phencyclidine S crn (Negative) ng/mL Ur Amphetamines Sc reen (Negative) ng/mL U Benzodiazepines Scrn (Negative) ng/mL Urine Cocaine Scre en (Negative) ng/mL U Marijuana (THC) Screen (Negative) ng/mL Ethyl Alcohol 266 H (0-10) mg/dL 04/10/20 04/10/20 04/10/20 Range/Units 20:30 21:38 21:38 WBC (4.0-10.0) 10^3/ uL RBC (4.1-5.3) 10^6/u L Hgb (11.7-16.6) g/dL Hct (42.0-52.0) % MCV (80-94) fL MCH (28.0-34.0) pg MCHC (30.0-36.0) g/dL RDW (12.1-15.1) % Plt Count (130-400) 10^3/c mm MPV (7.4-10.4) fL Neut % (Auto) % Lymph % (Auto) % [place] % (Auto) % Eos % (Auto) % Baso % (Auto) % Neut # (Auto) (1.8-7.7) 10^3/u L Lymph # (Auto) (0.8-4.8) 10^3/u L [place] # (Auto) (0.2-0.9) 10^3/u L Eos # (Auto) (0.0-0.8) 10^3/u L Baso # (Auto) (0.0-0.1) 10^3/u L Nucleated RBC % (a uto) % Nucleated RBCs # /100WBC PT (12.1-14.9) SECO NDS INR (0.8-1.2) APTT (23.9-36.7) SECO NDS Specimen Type Sample Site ABG pH (7.35-7.45) ABG pCO2 (35-45) mmHg ABG pO2 (80.0-100.0) mmH g ABG HCO3 (22-26) mmol/L ABG Base Excess (-2.0-2.0) mmol/ L Jean-Paul Test Hematocrit (42-52) % O2 Delivery Device Mechanical Rate FiO2 % PEEP cmH20 Data Sme ID Sodium (136-145) mmol/L Potassium (3.5-5.1) mmol/L Chloride (98-107) mmol/L Carbon Dioxide (22-29) mmol/L Anion Gap (5-19) BUN (6-20) mg/dL Creatinine (0.7-1.2) mg/dL GFR Calculation (90-130) mL/min Glucose (65-115) mg/dL Calculated Osmolal ity (285-295) mOsm/k g Calcium (8.5-10.5) mg/dL Magnesium (1.7-2.3) mg/dL Total Bilirubin (0.15-1.2) mg/dL AST (0-40) U/L ALT (0-41) U/L Alkaline Phosphata se (40-130) IU/L Creatine Kinase (39-308) U/L Troponin T Baselin e 17 H (0-15) ng/L Total Protein (6.6-8.7) g/dL Albumin (3.5-5.2) g/dL Globulin (1.3-4.6) g/dL TSH (0.27-4.20) uIU/ mL Urine Color Yellow (Yellow) Urine Appearance Clear (CLEAR) Urine pH 6.5 (5-7) Ur Specific Gravit y 1.005 (1.005-1.030) Urine Protein Neg (Negative) Urine Glucose (UA) Norm (Normal) Urine Ketones Negative (Negative) Urine Blood Neg (Negative) Urine Nitrate Negative (Negative) Urine Bilirubin Neg (Negative) Urine Urobilinogen Norm (Negative) mg/dL Ur Leukocyte Dayna ase Negative (Negative) Salicylates (3-10) mg/dL Urine Opiates Scre en Negative (Negative) ng/mL Acetaminophen (10-30) ug/mL Ur Barbiturates Sc reen Negative (Negative) ng/mL Ur Phencyclidine S crn Negative (Negative) ng/mL Ur Amphetamines Sc reen Negative (Negative) ng/mL U Benzodiazepines Scrn Negative (Negative) ng/mL Urine Cocaine Scre en Negative (Negative) ng/mL U Marijuana (THC) Screen Negative (Negative) ng/mL Ethyl Alcohol (0-10) mg/dL 04/10/20 Range/Units 21:50 WBC (4.0-10.0) 10^3/ uL RBC (4.1-5.3) 10^6/u L Hgb (11.7-16.6) g/dL Hct (42.0-52.0) % MCV (80-94) fL MCH (28.0-34.0) pg MCHC (30.0-36.0) g/dL RDW (12.1-15.1) % Plt Count (130-400) 10^3/c mm MPV (7.4-10.4) fL Neut % (Auto) % Lymph % (Auto) % [place] % (Auto) % Eos % (Auto) % Baso % (Auto) % Neut # (Auto) (1.8-7.7) 10^3/u L Lymph # (Auto) (0.8-4.8) 10^3/u L [place] # (Auto) (0.2-0.9) 10^3/u L Eos # (Auto) (0.0-0.8) 10^3/u L Baso # (Auto) (0.0-0.1) 10^3/u L Nucleated RBC % (a uto) % Nucleated RBCs # /100WBC PT (12.1-14.9) SECO NDS INR (0.8-1.2) APTT (23.9-36.7) SECO NDS Specimen Type Arterial Sample Site Radial, right ABG pH 7.19 L (7.35-7.45) ABG pCO2 58.7 H (35-45) mmHg ABG pO2 85.9 (80.0-100.0) mmH g ABG HCO3 22.5 (22-26) mmol/L ABG Base Excess -6.5 L (-2.0-2.0) mmol/ L Jean-Paul Test N/a Hematocrit 42.7 (42-52) % O2 Delivery Device Vent Mechanical Rate 12.0 FiO2 50.0 % PEEP 8.0 cmH20 Data Sme ID [id number] Sodium (136-145) mmol/L Potassium (3.5-5.1) mmol/L Chloride (98-107) mmol/L Carbon Dioxide (22-29) mmol/L Anion Gap (5-19) BUN (6-20) mg/dL Creatinine (0.7-1.2) mg/dL GFR Calculation (90-130) mL/min Glucose (65-115) mg/dL Calculated Osmolal ity (285-295) mOsm/k g Calcium (8.5-10.5) mg/dL Magnesium (1.7-2.3) mg/dL Total Bilirubin (0.15-1.2) mg/dL AST (0-40) U/L ALT (0-41) U/L Alkaline Phosphata se (40-130) IU/L Creatine Kinase (39-308) U/L Troponin T Baselin e (0-15) ng/L Total Protein (6.6-8.7) g/dL Albumin (3.5-5.2) g/dL Globulin (1.3-4.6) g/dL TSH (0.27-4.20) uIU/ mL Urine Color (Yellow) Urine Appearance (CLEAR) Urine pH (5-7) Ur Specific Gravit y (1.005-1.030) Urine Protein (Negative) Urine Glucose (UA) (Normal) Urine Ketones (Negative) Urine Blood (Negative) Urine Nitrate (Negative) Urine Bilirubin (Negative) Urine Urobilinogen (Negative) mg/dL Ur Leukocyte Dayna ase (Negative) Salicylates (3-10) mg/dL Urine Opiates Scre en (Negative) ng/mL Acetaminophen (10-30) ug/mL Ur Barbiturates Sc reen (Negative) ng/mL Ur Phencyclidine S crn (Negative) ng/mL Ur Amphetamines Sc reen (Negative) ng/mL U Benzodiazepines Scrn (Negative) ng/mL Urine Cocaine Scre en (Negative) ng/mL U Marijuana (THC) Screen (Negative) ng/mL Ethyl Alcohol (0-10) mg/dL Imaging Data^: CXR: Attestation: I personally reviewed and interpreted this imaging study as follows: My impression: No evidence of aspiration. ET tube with good placement. NG tube with appropriate placement. CT Head: Radiologist's impression: [place] [address] CT Scan Report Signed Patient: Flakito Almanzar Unit #: [id number] : 1960 Age/Sex: 59 / M ADM Date: 04/10/20 Loc: ICU Room/Bed: [place] [address]: Kenny Osborn MD Ordering Provider/Ordering MD: Rema Wright DO Date of Service: 04/10/20 Procedure(s): CT head wo con* [id number] Accession Number(s): [id number] Report Number: [id number] PROCEDURE INFORMATION: Exam: CT Head Without Contrast Exam date and time: 04/10/2020 10:22 PM Age: 59 years old Clinical indication: Altered mental status/memory loss; Other: Od-si; Patient HX: Od - si TECHNIQUE: Imaging protocol: Computed tomography of the head without contrast. Radiation optimization: All CT scans at this facility use at least one of these dose optimization techniques: automated exposure control; mA and/or kV adjustment per patient size (includes targeted exams where dose is matched to clinical indication); or iterative reconstruction. COMPARISON: CT head wo con* [id number] 01/20/2020 10:50 PM RADIATION DOSE METRICS: Total DLP (mGy-cm): 796.52 FINDINGS: Brain: There is no evidence of intracranial hemorrhage. No abnormal extra-axial fluid collections are identified. No mass effect or midline shift is seen. There are global involutional changes of the brain which are in keeping with the patient's age. Ventricles: No hydrocephalus. Bones/joints: Unremarkable. No acute fracture. Paranasal sinuses: The visualized sinuses are unremarkable. Mastoid air cells: There is no mastoid effusion detected. CT/CT head wo con* [id number] IMPRESSION: No acute intracranial pathology demonstrated by CT. Radiation Dose CTDIVOL = (mGy): DLP = 796.52 (mGy-cm) Dictated By: Laura Shine MD Signed By: Laura Shine MD Signed Date/Time: 04/10/202313 DD/ 11 CT C-Spine: Radiologist's impression: [address] [address] [address] Scan Report Signed Patient: Flakito Almanzar Unit #: [id number] : 1960 Age/Sex: 59 / M ADM Date: 04/10/20 Loc: ICU Room/Bed: [place] [address]: Kenny Osborn MD Ordering Provider/Ordering MD: Rema Wright DO Date of Service: 04/10/20 Procedure(s): CT cervical spin wo con* [id number] Accession Number(s): [id number] Report Number: [id number] PROCEDURE INFORMATION: Exam: CT Cervical Spine Without Contrast Exam date and time: 04/10/2020 10:22 PM Age: 59 years old Clinical indication: Patient HX: Found unresponsive od - si; Additional info: Altered mental status TECHNIQUE: Imaging protocol: Computed tomography images of the cervical spine without contrast. Radiation optimization: All CT scans at this facility use at least one of these dose optimization techniques: automated exposure control; mA and/or kV adjustment per patient size (includes targeted exams where dose is matched to clinical indication); or iterative reconstruction. COMPARISON: No relevant prior studies available. RADIATION DOSE METRICS: Total DLP (mGy-cm): 514.04 FINDINGS: Vertebrae: No anterior wedging deformity. No acute lucent fracture lines are seen. Prominent anterior bridging osteophyte at C5-C6. Discs/Spinal canal/Neural foramina: No severe central canal or neural foraminal stenosis demonstrated by CT. Lungs: Lung apices are normal. CT/CT cervical spin wo con* [id number] IMPRESSION: No acute cervical spinal injury demonstrated by CT. Radiation Dose CTDIVOL = (mGy): DLP = 514.04 (mGy-cm) Dictated By: Laura Shine MD Signed By: Laura Shine MD Signed Date/Time: 04/10/202310 DD/ 08 EKG Data^: EKG 1: Attestation: I personally reviewed and interpreted this EKG as follows: EKG interpretation date: 04/10/20 EKG interpretation time: 21:04 Interpretation: Sinus tachycardia at 114 beats a minute, normal axis, significant baseline artifact, normal QTC. Nonspecific ST and T wave changes. Computer generated interpretation: Chest X-Ray 04/10/20 20:52 IMPRESSION: 1. Possible right hilar mass versus prominent pulmonary artery. CTA chest dated January 20, 2020 reveals pulmonary artery hypertension with no hilar mass. 2. ET tube tip over the distal trachea, 1 cm proximal to the cheng. Cervical Spine CT 04/10/20 21:19 IMPRESSION: No acute cervical spinal injury demonstrated by CT. Radiation Dose CTDIVOL = (mGy): DLP = 514.04 (mGy-cm) Head CT 04/10/20 21:19 IMPRESSION: No acute intracranial pathology demonstrated by CT. Radiation Dose CTDIVOL = (mGy): DLP = 796.52 (mGy-cm) Discharge Plan Discharge Patient Disposition: Admitted As Inpatient Admit Provider: Kenny Osborn Clinical Impression: Drug overdose Condition: Stable Interventions: ED Discharge Assessment Last Done: 04/10/20 22:20 ED Charges Last Done: 04/10/20 22:20 Coding Level of Care Code ED Metalizing Machine Operator Automatic for Chg Fwd Exam Comprehensive
[2020-04-10 21:12] LABS: Basophils # 0.1 10^3/uL (0.0-0.1); Basophils % 0.8 %; Eosinophils # 0.2 10^3/uL (0.0-0.8); Eosinophils % 3.1 %; Hematocrit 43.7 % (42.0-52.0); Hemoglobin 14.2 g/dL (11.7-16.6); Lymphocytes % 53.4 %; Mean Corpuscular HGB Conc 32.5 g/dL (30.0-36.0); Mean Corpuscular Hemoglobin 29.3 pg (28.0-34.0); Mean Corpuscular Volume 90.1 fL (80-94); Mean Platelet Volume 9.3 fL (7.4-10.4); Monocytes # 0.5 10^3/uL (0.2-0.9); Neutrophils # 2.63 10^3/uL (1.8-7.7); Neutrophils % 35.6 %; Nucleated Red Blood Cells % 0 %; Platelet Count 194 10^3/cmm (130-400); Red Blood Count 4.85 10^6/uL (4.1-5.3); Red Cell Distribution Width 14.4 % (12.1-15.1); White Blood Count 7.4 10^3/uL (4.0-10.0)
[2020-04-10] MEDS: succinylcholine 20 mg/mL SDV 10mL 150 MG IVP (21:13)
--- NOTE | 2020-04-10 21:19 | CTR_ITS ---
PROCEDURE INFORMATION: Exam: CT Head Without Contrast Exam date and time: 04/10/2020 10:22 PM Age: 59 years old Clinical indication: Altered mental status/memory loss; Other: Od-si; Patient HX: Od - si TECHNIQUE: Imaging protocol: Computed tomography of the head without contrast. Radiation optimization: All CT scans at this facility use at least one of these dose optimization techniques: automated exposure control; mA and/or kV adjustment per patient size (includes targeted exams where dose is matched to clinical indication); or iterative reconstruction. COMPARISON: CT head wo con* [id number] 01/20/2020 10:50 PM RADIATION DOSE METRICS: Total DLP (mGy-cm): 796.52 FINDINGS: Brain: There is no evidence of intracranial hemorrhage. No abnormal extra-axial fluid collections are identified. No mass effect or midline shift is seen. There are global involutional changes of the brain which are in keeping with the patient's age. Ventricles: No hydrocephalus. Bones/joints: Unremarkable. No acute fracture. Paranasal sinuses: The visualized sinuses are unremarkable. Mastoid air cells: There is no mastoid effusion detected. CT/CT head wo con* [id number] IMPRESSION: No acute intracranial pathology demonstrated by CT. Radiation Dose CTDIVOL = (mGy): DLP = 796.52 (mGy-cm)
--- NOTE | 2020-04-10 21:19 | CTR_ITS ---
PROCEDURE INFORMATION: Exam: CT Cervical Spine Without Contrast Exam date and time: 04/10/2020 10:22 PM Age: 59 years old Clinical indication: Patient HX: Found unresponsive od - si; Additional info: Altered mental status TECHNIQUE: Imaging protocol: Computed tomography images of the cervical spine without contrast. Radiation optimization: All CT scans at this facility use at least one of these dose optimization techniques: automated exposure control; mA and/or kV adjustment per patient size (includes targeted exams where dose is matched to clinical indication); or iterative reconstruction. COMPARISON: No relevant prior studies available. RADIATION DOSE METRICS: Total DLP (mGy-cm): 514.04 FINDINGS: Vertebrae: No anterior wedging deformity. No acute lucent fracture lines are seen. Prominent anterior bridging osteophyte at C5-C6. Discs/Spinal canal/Neural foramina: No severe central canal or neural foraminal stenosis demonstrated by CT. Lungs: Lung apices are normal. CT/CT cervical spin wo con* [id number] IMPRESSION: No acute cervical spinal injury demonstrated by CT. Radiation Dose CTDIVOL = (mGy): DLP = 514.04 (mGy-cm)
[2020-04-10] MEDS: vecuronium 10 mg SDV IVP (21:21)
[2020-04-10] MEDS: sodium chloride 0.9% 1,000 ML 999 ML IV ×2 (21:22→23:38)
[2020-04-10 21:23] LABS: INR 0.89 (0.8-1.2)
[2020-04-10 21:24] LABS: Partial Thromboplastin Time 27.7 SECONDS (23.9-36.7)
[2020-04-10 21:31] LABS: Troponin(5th) Baseline 17 ng/L (0-15)
[2020-04-10 21:38] LABS: Alanine Aminotransferase 77 U/L (0-41); Albumin Level 4.2 g/dL (3.5-5.2); Alcohol Level 266 mg/dL (0-10); Alkaline Phosphatase 124 IU/L (40-130); Aspartate Amino Transferase 65 U/L (0-40); Blood Urea Nitrogen 4 mg/dL (6-20); Carbon Dioxide 18 mmol/L (22-29); Chloride 99 mmol/L (98-107); Creatine Phosphokinase 82 U/L (39-308); Globulin 3.1 g/dL (1.3-4.6); Glomerular Filtration Rate 115.8 mL/min (90-130); Glucose 105 mg/dL (65-115); Magnesium 2.2 mg/dL (1.7-2.3); Osmolality Calculated 277 mOsm/kg (285-295); Sodium 135 mmol/L (136-145); Thyroid Stimulating Hormone 0.71 uIU/mL (0.27-4.20); Total Bilirubin 0.3 mg/dL (0.15-1.2); Total Protein 7.3 g/dL (6.6-8.7)
[2020-04-10 21:45] LABS: Acetaminophen < 5.0 ug/mL (10-30); Salicylate < 0.3 mg/dL (3-10)
--- NOTE | 2020-04-10 21:45 | PM.HP ---
Providers/Chief Complaint Primary Care Provider: Rasheed Spivey MD Chief Complaint: SI History of Present Illness Flakito Almanzar is a 59 year old male who has history of HIV, alcohol abuse, multiple suicidal attempts in the past, was sent in by his mother via EMS when he was found obtunded in his room. As per the EMS report patient was found in his room with multiple empty bottles by his side, he endorsed taking multiple dose of trazodone(30 tablets) to the crime prevention police officer earlier, en-route to the hospital he was very combative, EMS gave him IM ketamine, he was immediately intubated in the ER(he was saturating 88 to 89% on 5 to 6 L) by Dr. Vargas. Blood gas showed respiratory acidosis, respiratory rate was increased to increase minute ventilation, head CT did not reveal acute hemorrhage, CT cervical spine reading is pending. Chest x-ray showing satisfactory placement of ET tube. No remarkable blood chemistry, high alcohol level detected without Tylenol or salicylate poisoning. On review of previous notes patient seems to have tendency to leave AGAINST MEDICAL ADVICE, on previous admission he was transferred to the neuropsychiatric unit, psychiatrist discussed the fact that his mother was planning on possibly challenging him in court to force him to go to inpatient detox against his will. Antabuse/disulfiram 500 mg was initiated. Librium dose was decreased to 25 mg twice daily and gabapentin was added 600 mg at bedtime. Review of Systems General: Reports: ROS unobtainable due to endotracheal tube Medications/Allergies Home Medications Medication Instructions Recorded Confirmed Last Taken Type potassium chloride 20 mEq 20 meq PO BID 07/21/19 01/21/20 12/10/19 History tablet,extended release(part/cryst) nebulizers [Compact Compressor #1 each 09/01/19 01/21/20 Unknown Rx Nebulizer] apixaban [Eliquis] 5 mg PO BID #30 tab 01/27/20 Unknown Rx budesonide 0.5 mg INHALATION BID.RESPIRATORY 01/27/20 Unknown Rx #60 ml chlordiazepoxide HCl 10 mg PO Q12H #14 cap 01/27/20 Unknown Rx chlordiazepoxide HCl 25 mg PO Q12H #15 cap 01/27/20 Unknown Rx dolutegravir-lamivudine [Dovato] 1 tab PO DAILY #30 cap 01/27/20 Unknown Rx fluconazole 100 mg PO DAILY #30 tab 01/27/20 Unknown Rx folic acid 1 mg PO DAILY #30 tab 01/27/20 Unknown Rx gabapentin 600 mg PO BEDTIME #60 cap 01/27/20 Unknown Rx ipratropium-albuterol 3 ml INHALATION Q6H.RESPIRATORY 01/27/20 Unknown Rx #240 ml macitentan [Opsumit] 10 mg PO DAILY #30 cap 01/27/20 Unknown Rx mirtazapine 15 mg PO BEDTIME #30 tab 01/27/20 Unknown Rx multivitamin with folic acid 1 tab PO DAILY #30 tab 01/27/20 Unknown Rx [Thera] pantoprazole 40 mg PO QAM #30 tab 01/27/20 Unknown Rx sulfamethoxazole-trimethoprim 1 tab PO MoWeFr@0800 #15 tab 01/27/20 Unknown Rx trazodone 300 mg PO BEDTIME #60 tab 01/27/20 Unknown Rx diltiazem HCl 240 mg capsule,24 240 mg PO QAM #90 cap 02/13/20 Unknown Rx hr,extended release Allergies Allergy/AdvReac Type Severity Reaction Status Date / Time No Known Allergies Allergy Verified 09/01/19 08:52 PFSH Acute PFSH: Medical History Anorexia Atrial fibrillation Colon polyps COPD (chronic obstructive pulmonary disease) Severe COPD Diverticulitis GI bleed Was taken off Coumadin for a month in 2015 after a bleeding gastric ulcer, currently on Eliquis HIV (human immunodeficiency virus infection) Hypogonadism Liver tumor Lymphoma 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 No evidence of recurrence, currently getting CLAIMS ADMINISTRATOR prophylaxis with intrathecal methotrexate with prophylactic radiation to right testicle, CHOP treatment Meningitis Orchialgia Pulmonary embolism DVT of right leg, 2009 Pulmonary hypertension After PE Surgical History H/O colonoscopy H/O hemorrhoidectomy History of orchiectomy, unilateral Family History Other No pertinent family history Social History Smoking and tobacco status: current every day smoker Alcohol intake: current Household members: family Housing: House Vitals/I&O/Wt Last Vital Signs Temp 98.5 F 04/10/20 21:18 Pulse 108 H 04/10/20 21:34 Resp 12 04/10/20 21:34 BP 162/95 04/10/20 21:34 Pulse Ox 98 04/10/20 21:34 Weight last 48 hrs Weight 83.915 kg Physical Exam Narrative: EXAM NARRATIVE: Middle-age male currently intubated and sedated with propofol and fentanyl On Sunday occasions he was waking up, I have requested ER nurse to increase fentanyl to soft max Hemodynamically stable Saturating well on PEEP 8, PRVC, tidal volume 500, FiO2 50%, respiratory rate increased from 12-16 Bilateral assisted breath sounds No visible skin rash Does not look malnourished or emaciated Neuro exam not able to assess secondary to sedation and intubation Abdomen flat no distention noted Lower extremity no edema gangrene or ulcer Data : 04/10/20 20:30 04/10/20 20:30 A&P Assessment and plan (1) Suicidal overdose: Status: Acute (2) Endotracheally intubated: Status: Acute (3) Respiratory failure requiring intubation: Status: Acute (4) Alcohol abuse: Status: Acute Additional A&P Information Suicidal attempt with drug overdose Multiple empty bottles found around the patient, patient endorsed to taking multiple dose of trazodone, alcohol abuse No ischemic or infarctive changes or severe interval changes on EKG 96-hour hold and psychiatric consult on extubation Acute respiratory failure requiring mechanical ventilation for acute hypoxia Patient was saturating 88% on 6 L, combative despite getting IM ketamine, was intubated in the ER Endotracheal tube in satisfactory position on chest x-ray, Increased respiratory rate for respiratory acidosis to increase minute ventilation for respiratory acidosis(respiratory acidosis after intubation) Sedation with propofol and fentanyl Protonix 40 mg IV daily Ventilator associated pneumonia prophylaxis Daily chlorhexidine mouthwash Weaning trial tomorrow morning Alcohol abuse Start CIWA protocol HIV Patient was taking Dovato and fluconazole Would be continuing this regimen via NG tube I do not see any signs of opportunistic infection, he is afebrile, no leukocytosis, His chest x-ray has bilateral hilar adenopathy versus pulmonary hypertensive changes A. fib without RVR: Continue Eliquis via NG tube Would use IV AV andre blocking agents if required Full code DVT prophylaxis not needed, currently is on Eliquis N.p.o. Attestations Medical Necessity Statement*: Anticipating stay in the hospital course more than 2 midnights currently need 96-hour hold for suicidal attempt, currently intubated and sedated Time Spent in Patient Care: (>than 50% of time spent in counselling and/or direct pt care on unit). 45mins Coding Level of Care Code Acute Medical Staff Assistant for [facility] Fwd Diagnoses Suicidal overdose T50.902A Endotracheally intubated Z97.8 Respiratory failure requiring intubation J96.90 Alcohol abuse F10.10
[2020-04-10 21:47] LABS: Add Urine Microscopic? NO
[2020-04-10] MEDS: propofol 1,000 MG/100 ML INJ 2.5 MG IV (21:52)
[2020-04-10 21:53] LABS: Urine Appearance Clear (CLEAR); Urine Color Yellow (Yellow); pH Urine 6.5 (5-7)
[2020-04-10 21:54] LABS: Bilirubin Urine Neg (Negative); Blood Urine Neg (Negative); Glucose Urine UA Norm (Normal); Ketones Urine Negative (Negative); Leukocyte Esterase Urine Negative (Negative); Nitrate Urine Negative (Negative); Protein Urine Neg (Negative); Specific Gravity, Urine 1.005 (1.005-1.030); Urobilinogen Urine Norm (Negative)
[2020-04-10 21:57] LABS: Amphetamines Screen Urine Negative (Negative); Barbiturates Screen Urine Negative (Negative); Benzodiazepines Screen Urine Negative (Negative); Cocaine Screen Urine Negative (Negative); Opiate Screen Urine Negative (Negative); PCP Screen Urine Negative (Negative); THC Screen Urine Negative (Negative)
[2020-04-10 22:03] LABS: ABG PCO2 58.7 mmHg (35-45); ABG PH Result 7.19 (7.35-7.45); Arterial Blood Gas Hematocrit 42.7 % (42-52); Base Excess ABG -6.5 mmol/L (-2.0-2.0); Blood Gas Sample Site Radial, right; Blood Gas Sample Type Arterial; HCO3 ABG 22.5 mmol/L (22-26); Oxygen Device VENT; PO2 ABG 85.9 mmHg (80.0-100.0)
[2020-04-10 23:10] LABS: Troponin 5 2HR 12.04 ng/L (0-15)
[2020-04-10 23:15] LABS: Troponin 5 2HR Delta -4.96 ABS# (0-10)
[2020-04-10 23:20] LABS: Lithium 0.1 mmol/L (0.6-1.2); Phenytoin Dilantin 0.8 ug/mL (10-20); Valproic Acid Level 2.8 ug/mL (50-100)
[2020-04-11] VITALS (57 sets, daily range): BP systolic 68–183; BP diastolic 47–96; PULSE 72–105; RESP 12; TEMP 37.2; O2SAT 91–99
[2020-04-11] MEDS: dextrose 5%-sod chloride 0.45% 1,000 ML 75 ML IV ×2 (00:18→13:25)
[2020-04-11] MEDS: propofol 1,000 MG/100 ML INJ 24.4 MG IV ×3 (01:46→09:47)
[2020-04-11] MEDS: ipratropium-albuterol 3 mL Neb INHALATION ×3 (02:21→15:19)
[2020-04-11 04:11] LABS: ABG PCO2 32.9 mmHg (35-45); ABG PH Result 7.38 (7.35-7.45); Arterial Blood Gas Hematocrit 39.3 % (42-52); Base Excess ABG -4.7 mmol/L (-2.0-2.0); Blood Gas Allen Test Pos; Blood Gas Sample Site Radial, left; Blood Gas Sample Type Arterial; HCO3 ABG 19.5 mmol/L (22-26); Oxygen Device VENT
[2020-04-11 05:11] LABS: Hematocrit 38.2 % (42.0-52.0); Hemoglobin 12.3 g/dL (11.7-16.6); Mean Corpuscular HGB Conc 32.2 g/dL (30.0-36.0); Mean Corpuscular Hemoglobin 29.8 pg (28.0-34.0); Mean Corpuscular Volume 92.5 fL (80-94); Mean Platelet Volume 9.4 fL (7.4-10.4); Monocytes % 12.1 %; Neutrophils % 50.6 %; Platelet Count 188 10^3/cmm (130-400); Red Blood Count 4.13 10^6/uL (4.1-5.3); Red Cell Distribution Width 14.6 % (12.1-15.1); White Blood Count 5.7 10^3/uL (4.0-10.0)
[2020-04-11 05:12] LABS: Basophils # 0.1 10^3/uL (0.0-0.1); Eosinophils # 0.2 10^3/uL (0.0-0.8); Lymphocytes # 1.9 10^3/uL (0.8-4.8); Monocytes # 0.7 10^3/uL (0.2-0.9); Neutrophils # 2.89 10^3/uL (1.8-7.7); Nucleated Red Blood Cells % 0 %
[2020-04-11 05:29] LABS: Alanine Aminotransferase 61 U/L (0-41); Albumin Level 3.3 g/dL (3.5-5.2); Alkaline Phosphatase 102 IU/L (40-130); Anion Gap 16.6 (5-19); Aspartate Amino Transferase 54 U/L (0-40); Blood Urea Nitrogen 4 mg/dL (6-20); Calcium 7.4 mg/dL (8.5-10.5); Carbon Dioxide 18 mmol/L (22-29); Chloride 106 mmol/L (98-107); Globulin 2.7 g/dL (1.3-4.6); Glomerular Filtration Rate 115.8 mL/min (90-130); Glucose 138 mg/dL (65-115); Magnesium 1.9 mg/dL (1.7-2.3); Osmolality Calculated 283 mOsm/kg (285-295); Potassium 3.6 mmol/L (3.5-5.1); Sodium 137 mmol/L (136-145); Total Bilirubin 0.2 mg/dL (0.15-1.2)
[2020-04-11 05:35] LABS: Lactate (Lactic Acid level) 2.2 mmol/L (0.5-2.2)
[2020-04-11] MEDS: fluconazole 100 mg Tablet NG-TUBE (09:40)
[2020-04-11] MEDS: thiamine 100 mg Tablet PO (09:40)
[2020-04-11] MEDS: multivitamin therapeutic Tablet 1 TAB PO (09:40)
[2020-04-11] MEDS: folic acid 1 mg Tablet PO (09:40)
--- NOTE | 2020-04-11 13:26 | PC.NURSE ---
stated to with hold eliquis d/t red color of drainage.
[2020-04-11] MEDS: propofol 1,000 MG/100 ML INJ 19.5 MG IV ×2 (13:52→18:35)
--- NOTE | 2020-04-11 15:08 | PC.NURSE ---
sterile dressing change to left juglar triple lumen catheter
--- NOTE | 2020-04-11 15:49 | PC.NURSE ---
pt. wakes up, but goes back to sleep easily.
--- NOTE | 2020-04-11 16:50 | PC.NURSE ---
mom in brought home meds she could find. sent them back home after list written down. mom also took billfold and phone.
--- NOTE | 2020-04-11 17:54 | P.PN_ITS ---
Subjective Subjective: Interval history: Overnight labs and H&P reviewed. Coffee-ground material noted in patient's NGT. Eliquis has been discontinued because of the same. Continues to be intubated and sedated presently. Medications: Reviewed: Yes Vitals/I&O/Wt Last Vital Signs Temp 98.9 F 04/11/20 07:30 Pulse 80 04/11/20 15:19 Resp 12 04/11/20 15:41 BP 126/80 04/11/20 15:00 Pulse Ox 97 04/11/20 15:19 04/11/20 04/11/20 04/11/20 06:59 14:59 22:59 Intake Total 2302.109 / 2310.225 1412.979 / 1412.979 59.833 / 1472.812 Output Total 1700 / 1700 1300 / 1300 Balance 602.109 / 587.304 6714.979 / 1412.979 -1240.167 / 172.812 Weight last 48 hrs Weight 81.284 kg Weight 83.915 kg Physical Exam Urinary Catheter Management^: Barba: Cath Placed During This Visit: yes Reason for Continuing Indwelling Catheter: Accurate Measurement of Urinary Output in Critically Ill Patients Urinary Catheter Date of Insertion: 04/10/20 Urinary Catheter Time of Insertion: 22:00 Data : 04/11/20 04:47 04/11/20 04:47 A&P Assessment and plan (1) Suicidal overdose: Status: Acute (2) Endotracheally intubated: Status: Acute (3) Respiratory failure requiring intubation: Status: Acute (4) Alcohol abuse: Status: Acute Additional A&P Information Suicidal attempt with drug overdose Multiple empty bottles found around the patient, patient endorsed to taking multiple dose of trazodone, alcohol abuse No ischemic or infarctive changes or severe interval changes on EKG 96-hour hold and psychiatric consult on extubation Acute respiratory failure requiring mechanical ventilation for acute hypoxia Patient was saturating 88% on 6 L, combative despite getting IM ketamine, was intubated in the ER Endotracheal tube in satisfactory position on chest x-ray, Increased respiratory rate for respiratory acidosis to increase minute ventilat ion for respiratory acidosis(respiratory acidosis after intubation) Sedation with propofol and fentanyl, midazolam added UGI bleeding : Protonix 40 mg IV BID stop eliquis Alcohol abuse Start [facility] protocol HIV Patient was taking Dovato and fluconazole Would be continuing this regimen via NG tube A. fib without RVR: Continue Eliquis via NG tube Would use IV AV andre blocking agents if required Full code DVT prophylaxis not needed, currently is on Eliquis N.p.o. Attestations Medical Necessity Statement*: respiratory failure requiring mechanical ventilation Coding Level of Care Code Acute Shearer Operator for [facility] Fwd Diagnoses Suicidal overdose T50.902A Endotracheally intubated Z97.8 Respiratory failure requiring intubation J96.90 Alcohol abuse F10.10
[2020-04-11] MEDS: pantoprazole 40 mg SDV IVP (18:14)
[2020-04-12] VITALS (101 sets, daily range): BP systolic 82–125; BP diastolic 51–83; PULSE 85–110; RESP 9–27; TEMP 37–38.8; O2SAT 86–98
[2020-04-12] MEDS: dextrose 5%-sod chloride 0.45% 1,000 ML 75 ML IV ×2 (01:01→15:59)
[2020-04-12] MEDS: LORazepam 2 mg/mL INJ 1 mL IVP ×3 (01:01→13:20)
[2020-04-12] MEDS: ipratropium-albuterol 3 mL Neb INHALATION ×4 (03:02→20:07)
[2020-04-12 04:45] LABS: Basophils % 0.6 %; Eosinophils # 0.1 10^3/uL (0.0-0.8); Eosinophils % 1.2 %; Hematocrit 36.1 % (42.0-52.0); Hemoglobin 11.5 g/dL (11.7-16.6); Lymphocytes # 1.8 10^3/uL (0.8-4.8); Lymphocytes % 25.9 %; Mean Corpuscular HGB Conc 31.9 g/dL (30.0-36.0); Mean Corpuscular Hemoglobin 29.5 pg (28.0-34.0); Mean Corpuscular Volume 92.6 fL (80-94); Mean Platelet Volume 9.9 fL (7.4-10.4); Monocytes # 0.8 10^3/uL (0.2-0.9); Monocytes % 12.1 %; Neutrophils # 4.04 10^3/uL (1.8-7.7); Neutrophils % 59.9 %; Nucleated Red Blood Cells % 0 %; Platelet Count 136 10^3/cmm (130-400); Red Cell Distribution Width 15.2 % (12.1-15.1); White Blood Count 6.8 10^3/uL (4.0-10.0)
[2020-04-12 05:05] LABS: Alanine Aminotransferase 51 U/L (0-41); Alkaline Phosphatase 99 IU/L (40-130); Aspartate Amino Transferase 47 U/L (0-40); Blood Urea Nitrogen 8 mg/dL (6-20); Calcium 7.7 mg/dL (8.5-10.5); Carbon Dioxide 23 mmol/L (22-29); Chloride 107 mmol/L (98-107); Globulin 2.7 g/dL (1.3-4.6); Glomerular Filtration Rate 115.8 mL/min (90-130); Glucose 97 mg/dL (65-115); Osmolality Calculated 280 mOsm/kg (285-295); Sodium 136 mmol/L (136-145); Total Bilirubin 0.4 mg/dL (0.15-1.2); Total Protein 5.7 g/dL (6.6-8.7)
[2020-04-12 05:36] LABS: ABG PCO2 40.2 mmHg (35-45); ABG PH Result 7.42 (7.35-7.45); Arterial Blood Gas Hematocrit 39.4 % (42-52); Base Excess ABG 1.6 mmol/L (-2.0-2.0); Blood Gas Allen Test Pos; Blood Gas Sample Type Arterial; HCO3 ABG 26.2 mmol/L (22-26); PO2 ABG 72.6 mmHg (80.0-100.0)
[2020-04-12 05:37] LABS: Blood Gas Sample Site Radial, right; Oxygen Device VENT
[2020-04-12] MEDS: pantoprazole 40 mg SDV IVP ×2 (06:29→18:17)
[2020-04-12] MEDS: folic acid 1 mg Tablet PO (08:48)
[2020-04-12] MEDS: multivitamin therapeutic Tablet 1 TAB PO (08:48)
[2020-04-12] MEDS: thiamine 100 mg Tablet PO (08:48)
[2020-04-12] MEDS: fluconazole 100 mg Tablet NG-TUBE (08:48)
[2020-04-12] MEDS: propofol 1,000 MG/100 ML INJ 4.9 MG IV (09:23)
--- NOTE | 2020-04-12 12:39 | PM.CONSULT ---
Providers/Reason For Consult Consulting Physican/Specialty*: General Surgery Kilo Pollard MD Reason for Consult*: Possible blood/coffee-ground material via nasogastric tube. Attending Physician: Quentin Barrow Primary Care Provider: Rasheed Spivey MD History of Present Illness History of Present Illness Flakito Almanzar is a 59 year old male admitted 2 days ago with a reported overdose of trazodone. He was immediately intubated in the emergency department and a nasogastric tube was passed. Dr. Izquierdo had contacted me this morning because the patient's nasogastric tube contents appeared as if they may be coffee-ground in appearance after the nasogastric tube was passed. Today, his nasogastric tube drainage is clear, however. His hemoglobin took a slight drop after he was admitted. He does have a reported history of peptic ulcer disease. Review of Systems General: Reports: ROS unobtainable due to endotracheal tube Meds/Allergies Home Medications and Allergies Home Medications Medication Instructions Recorded Confirmed Last Taken Type potassium chloride 20 mEq 20 meq PO BID 07/21/19 04/11/20 12/10/19 History tablet,extended release(part/cryst) apixaban [Eliquis] 5 mg PO BID #30 tab 01/27/20 04/11/20 Unknown Rx budesonide 0.5 mg INHALATION BID.RESPIRATORY 01/27/20 04/11/20 Unknown Rx #60 ml chlordiazepoxide HCl 10 mg PO Q12H #14 cap 01/27/20 04/11/20 Unknown Rx chlordiazepoxide HCl 25 mg PO Q12H #15 cap 01/27/20 04/11/20 Unknown Rx dolutegravir-lamivudine [Dovato] 1 tab PO DAILY #30 cap 01/27/20 04/11/20 Unknown Rx fluconazole 100 mg PO DAILY #30 tab 01/27/20 04/11/20 Unknown Rx folic acid 1 mg PO DAILY #30 tab 01/27/20 04/11/20 Unknown Rx gabapentin 600 mg PO BEDTIME #60 cap 01/27/20 04/11/20 Unknown Rx ipratropium-albuterol 3 ml INHALATION Q6H.RESPIRATORY 01/27/20 04/11/20 Unknown Rx #240 ml macitentan [Opsumit] 10 mg PO DAILY #30 cap 01/27/20 04/11/20 Unknown Rx mirtazapine 15 mg PO BEDTIME #30 tab 01/27/20 04/11/20 Unknown Rx multivitamin with folic acid 1 tab PO DAILY #30 tab 01/27/20 04/11/20 Unknown Rx [Thera] pantoprazole 40 mg PO QAM #30 tab 01/27/20 04/11/20 Unknown Rx sulfamethoxazole-trimethoprim 1 tab PO MoWeFr@0800 #15 tab 01/27/20 04/11/20 Unknown Rx trazodone 300 mg PO BEDTIME #60 tab 01/27/20 04/11/20 Unknown Rx diltiazem HCl 240 mg capsule,24 240 mg PO QAM #90 cap 02/13/20 04/11/20 Unknown Rx hr,extended release albuterol sulfate [Ventolin HFA] See Rx Instructions .ROUTE .COMPLEX 04/11/20 04/11/20 Unknown History alprazolam See Rx Instructions .ROUTE .COMPLEX 04/11/20 04/11/20 Unknown History disulfiram [Antabuse] See Rx Instructions .ROUTE .COMPLEX 04/11/20 04/11/20 Unknown History dolutegravir-lamivudine [Dovato] See Rx Instructions .ROUTE .COMPLEX 04/11/20 04/11/20 Unknown History fentanyl See Rx Instructions .ROUTE .COMPLEX 04/11/20 04/11/20 Unknown History hydroxyzine HCl See Rx Instructions .ROUTE .COMPLEX 04/11/20 04/11/20 Unknown History sildenafil (pulm.hypertension) See Rx Instructions .ROUTE .COMPLEX 04/11/20 04/11/20 Unknown History testosterone See Rx Instructions .ROUTE .COMPLEX 04/11/20 04/11/20 Unknown History Allergies Allergy/AdvReac Type Severity Reaction Status Date / Time No Known Allergies Allergy Verified 09/01/19 08:52 Current Medications Current Medications Generic Name Dose Route Start Last Admin Trade Name Freq PRN Reason Stop Dose Admin Albuterol/Ipratropium 3 ml 04/10/20 23:35 04/12/20 08:34 Duoneb INHALATION 3 ml Q6H PRN Administration SHORTNESS OF BREATH Diltiazem HCl 240 mg 04/11/20 06:00 04/11/20 04:14 Cardizem Cd (24hr) NG-TUBE Not Given QAM GRACIELA Fluconazole 100 mg 04/11/20 09:00 04/12/20 08:48 Diflucan Tab NG-TUBE 100 mg DAILY GRACIELA Administration Folic Acid 1 mg 04/11/20 09:00 04/12/20 08:48 Folic Acid PO 1 mg DAILY GRACIELA Administration Fentanyl 1,000 mcg/ Sodium 100 mls @ 0 mls/hr 04/10/20 21:15 04/12/20 10:43 Chloride IV 25 mcg/hr .Q0M GRACIELA 2.5 mls/hr Titration Protocol Per Protocol Propofol 1,000 mg in 100 mls @ 0 mls/hr 04/10/20 23:35 04/12/20 09:23 Diprivan IV 10 mcg/kg/min .Q0M GRACIELA 4.9 mls/hr Administration Protocol Per Protocol Dextrose/Sodium Chloride 1,000 mls @ 75 mls/hr 04/10/20 23:35 04/12/20 01:01 Dextrose 5%-Sod Chloride 0.45% IV 75 mls/hr .[id number] GRACIELA Administration Norepinephrine Bitartrate 4 mg 254 mls @ 0 mls/hr 04/10/20 23:45 04/12/20 01:14 / Dextrose IV Infused .Q0M GRACIELA Titration Protocol Per Protocol Midazolam HCl 100 mg/ Sodium 100 mls @ 0 mls/hr 04/11/20 01:00 04/12/20 11:42 Chloride IV 0 mg/hr .Q0M GRACIELA 0 mls/hr Titration Protocol Per Protocol Lorazepam 2 mg 04/10/20 23:35 04/12/20 06:29 Ativan IVP 2 mg PRN PRN Administration WITHDRAWAL Protocol Multivitamins Therapeutic 1 tab 04/11/20 09:00 04/12/20 08:48 Multivitamin Tab PO 1 tab DAILY GRACIELA Administration Non-Formulary Medication 1 tab 04/11/20 09:00 04/12/20 09:17 Dolutegravir-Lamivudine [Dovato] G-TUBE 1 tab DAILY GRACIELA Administration Pantoprazole Sodium 40 mg 04/11/20 18:15 04/12/20 06:29 Protonix IVP 40 mg Q12H GRACIELA Administration Thiamine Mononitrate 100 mg 04/11/20 09:00 04/12/20 08:48 Vitamin B-1 PO 100 mg DAILY GRACIELA Administration PFSH Acute PFSH: Medical History (Updated 04/12/20 @ 13:11 by Kilo Pollard MD) Anorexia Atrial fibrillation Colon polyps COPD (chronic obstructive pulmonary disease) Severe COPD Diverticulitis / Diverticulosis GI bleed Was taken off Coumadin for a month in 2015 after a bleeding gastric ulcer, currently on Eliquis History of peptic ulcer disease HIV (human immunodeficiency virus infection) Hypogonadism Liver tumor Lymphoma 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 No evidence of recurrence, currently getting FIELD IRONWORKER prophylaxis with intrathecal methotrexate with prophylactic radiation to right testicle, CHOP treatment Meningitis Orchialgia Pulmonary embolism DVT of right leg, 2009 Pulmonary hypertension After PE Surgical History (Updated 04/12/20 @ 13:13 by Kilo Pollard MD) H/O colonoscopy 2001 -diverticulosis, colon polyps / 2005 -diverticulosis, small telangiectasia / 01/2016 -diverticulosis with intrinsic stenosis and sigmoid H/O esophagogastroduodenoscopy 2005 -reflux esophagitis, superficial gastric erosions with hemorrhagic gastritis, duodenitis /2008 -reflux esophagitis, gastritis, small chronic gastric ulcer H/O hemorrhoidectomy History of orchiectomy, unilateral L -- diffuse large B-cell lymphoma Family History Other No pertinent family history Social History (Updated 04/12/20 @ 13:07 by Kilo Pollard MD) Smoking and tobacco status: current every day smoker cigarettes Packs smoked per day: 2 Alcohol intake: current Household members: family Housing: House Vitals/I&O/Wt Last Vital Signs Temp 100.3 F H 04/12/20 09:45 Pulse 88 04/12/20 12:00 Resp 15 04/12/20 11:14 BP 95/55 04/12/20 12:00 Pulse Ox 93 04/12/20 12:00 04/11/20 04/12/20 04/12/20 22:59 06:59 14:59 Intake Total 151.808 / 2912.587 1347.80 / 2912.587 70.708 / 70.708 Output Total 1300 / 1300 625 / 625 Balance -1148.192 / 4849.822 7423.80 / 1612.587 -554.292 / -554.292 Weight last 48 hrs Weight 179 lb 3.2 oz Weight 185 lb Physical Exam Narrative: EXAM NARRATIVE: The patient is intubated and on some sedation but will open his eyes to voice. The nasogastric tube has clear fluid in the tubing. His canister has a small amount of liquid that is a little bit more red/brown in color. Pupils seem equal. No carotid bruits are heard. Lungs reveal symmetric air movement. The abdomen is soft and has bowel sounds. There is no appreciable tenderness. Extremities reveal no significant edema. Urinary Catheter Management^: Barba: Cath Placed During This Visit: yes Reason for Continuing Indwelling Catheter: Accurate Measurement of Urinary Output in Critically Ill Patients Urinary Catheter Date of Insertion: 04/10/20 Urinary Catheter Time of Insertion: 22:00 A&P Assessment and plan (1) Upper GI bleeding: It is difficult to know if the patient has had any bleeding; his nasogastric tube contents are currently clear but the contents in the canister are a little bit red in color; I do not think heme testing this is necessary if it has not been done, as simple placement/presence of a nasogastric tube can result in heme positive contents, anyway. His hemoglobin has dropped from 14 to 11.5, but I would imagine at least some of this is secondary to rehydration. The patient reportedly takes a PPI at home and is continued on the same here. He also takes Eliquis daily which is currently on hold. I do not think an EGD is going to add much to his current management unless his clinical status changes. I will check a H. pylori serum antibody just to make sure there is nothing obvious that may be treatable. Otherwise, I do not see any problem with holding on endoscopy at this point. Status: Acute (2) History of peptic ulcer disease: The patient has had evidence of esophagitis, gastritis with small chronic and superficial acute ulcerations, and duodenitis on previous studies. Status: Acute Consult Attestations Medical Necessity Statement: See admitting service's notation. Coding Level of Care Code Acute Account Advisor for [facility] Diagnoses Upper GI bleeding K92.2 History of peptic ulcer disease Z87.11
[2020-04-12 13:18] LABS: H. Pylori IgG Antibody Negative (Negative)
--- NOTE | 2020-04-12 16:20 | PC.NURSE ---
I witnessed Ban VELA waste fentanyl 49.7ml and versed 55.792ml that were remaining from the medications used for tube tolerance while on the ventilator. Medications no longer needed at this time.
--- NOTE | 2020-04-12 18:14 | PC.RESP ---
Smoking Cessation and Pulmonary Rehab information to patient.
--- NOTE | 2020-04-12 21:00 | P.PN_ITS ---
Subjective Subjective: Interval history: In the morning the patient was still sedated, on mechanical ventilation. After initial assessment we decided to wean him off sedation and give him CPAP trial. He tolerated it well. Consequently he was extubated. On my third evaluation the patient was awake and slightly confused. However his responses are adequate. Normal speech. No shortness of breath or cough. He denied any pain. No nausea or vomiting. Medications: Reviewed: Yes Medication Review Details: Generic Name Dose Route Start Last Admin Trade Name Freq PRN Reason Stop Dose Admin Albuterol/Ipratrop ium 3 ml 04/10/20 23:35 04/12/20 20:07 Duoneb INHALATION 3 ml Q6H PRN Administration SHORTNESS OF MUKUND TH Diltiazem HCl 240 mg 04/11/20 06:00 04/11/20 04:14 Cardizem Cd (24h r) NG-TUBE Not Given QAM GRACIELA Fluconazole 100 mg 04/11/20 09:00 04/12/20 08:48 Diflucan Tab NG-TUBE 100 mg DAILY GRACIELA Administration Folic Acid 1 mg 04/11/20 09:00 04/12/20 08:48 Folic Acid PO 1 mg DAILY GRACIELA Administration Fentanyl 1,000 mcg / Sodium 100 mls @ 0 mls/h r 04/10/20 21:15 04/12/20 16:19 Chloride IV Infused .Q0M GRACIELA Titration Protocol Per Protocol Propofol 1,000 mg in 100 m ls @ 0 mls/hr 04/10/20 23:35 04/12/20 13:00 Diprivan IV 0 mcg/kg/min .Q0M GRACIELA 0 mls/hr Titration Protocol Per Protocol Norepinephrine Bit artrate 4 mg 254 mls @ 0 mls/h r 04/10/20 23:45 04/12/20 01:14 / Dextrose IV Infused .Q0M GRACIELA Titration Protocol Per Protocol Midazolam HCl 100 mg/ Sodium 100 mls @ 0 mls/h r 04/11/20 01:00 04/12/20 16:19 Chloride IV Infused .Q0M GRACIELA Titration Protocol Per Protocol Lorazepam 2 mg 04/10/20 23:35 04/12/20 13:20 Ativan IVP 2 mg PRN PRN Administration WITHDRAWAL Protocol Multivitamins Ther apeutic 1 tab 04/11/20 09:00 04/12/20 08:48 Multivitamin Tab PO 1 tab DAILY GRACIELA Administration Non-Formulary Medi cation 1 tab 04/11/20 09:00 04/12/20 09:17 Dolutegravir-Vega ivudine [Dovato] G-TUBE 1 tab DAILY GRACIELA Administration Pantoprazole Sodiu m 40 mg 04/11/20 18:15 04/12/20 18:17 Protonix IVP 40 mg Q12H GRACIELA Administration Thiamine Mononitra te 100 mg 04/11/20 09:00 04/12/20 08:48 Vitamin B-1 PO 100 mg DAILY GRACIELA Administration Vitals/I&O/Wt Last Vital Signs Temp 98.6 F 04/12/20 19:00 Pulse 107 H 04/12/20 20:19 Resp 20 H 04/12/20 20:08 BP 107/63 04/12/20 19:30 Pulse Ox 93 04/12/20 20:08 04/12/20 04/12/20 04/12/20 06:59 14:59 22:59 Intake Total 1347.80 / 2912.587 1088.430 / 1088.430 371.25 / 1459.680 Output Total 625 / 625 1400 / 5 Balance 1347.80 / 1612.587 463.430 / 463.430 -1028.75 / -565.320 Weight last 48 hrs Weight 81.284 kg Physical Exam Narrative: EXAM NARRATIVE: Slightly confused. Awake. No acute distress. Responses are adequate. Speech slow but without aphasia or dysarthria. Skin is warm and dry. Moist mucous membranes. Neck supple no JVD Lungs clear bilaterally. No respiratory distress Heart S1, S2, regular Abdomen soft, nontender, bowel sounds are present Extremities no edema cyanosis or calf tenderness bilaterally Moves all extremities. Eyes Abby. Her ocular muscles are intact. Urinary Catheter Management^: Barba: Cath Placed During This Visit: yes Reason for Continuing Indwelling Catheter: Accurate Measurement of Urinary Output in Critically Ill Patients Urinary Catheter Date of Insertion: 04/10/20 Urinary Catheter Time of Insertion: 22:00 Data : 04/12/20 04:10 04/12/20 04:10 Other Labs: Laboratory Results WBC 6.8 10^3/uL (4.0-10.0) 04/12/20 04:10 RBC 3.90 10^6/uL (4.1-5.3) L 04/12/20 04:10 Hgb 11.5 g/dL (11.7-16.6) L 04/12/20 04:10 Hct 36.1 % (42.0-52.0) L 04/12/20 04:10 MCV 92.6 fL (80-94) 04/12/20 04:10 MCH 29.5 pg (28.0-34.0) 04/12/20 04:10 MCHC 31.9 g/dL (30.0-36.0) 04/12/20 04:10 RDW 15.2 % (12.1-15.1) H 04/12/20 04:10 Plt Count 136 10^3/cmm (130-400) 04/12/20 04:10 MPV 9.9 fL (7.4-10.4) 04/12/20 04:10 Neut % (Auto) 59.9 % 04/12/20 04:10 Lymph % (Auto) 25.9 % 04/12/20 04:10 Toole % (Auto) 12.1 % 04/12/20 04:10 Eos % (Auto) 1.2 % 04/12/20 04:10 Baso % (Auto) 0.6 % 04/12/20 04:10 Neut # (Auto) 4.04 10^3/uL (1.8-7.7) 04/12/20 04:10 Lymph # (Auto) 1.8 10^3/uL (0.8-4.8) 04/12/20 04:10 Toole # (Auto) 0.8 10^3/uL (0.2-0.9) 04/12/20 04:10 Eos # (Auto) 0.1 10^3/uL (0.0-0.8) 04/12/20 04:10 Baso # (Auto) 0.0 10^3/uL (0.0-0.1) 04/12/20 04:10 Nucleated RBC % (auto) 0 % 04/12/20 04:10 Nucleated RBCs # 0.0 /100WBC 04/12/20 04:10 PT 12.30 SECONDS (12.1-14.9) 04/10/20 20:30 INR 0.89 (0.8-1.2) 04/10/20 20:30 APTT 27.7 SECONDS (23.9-36.7) 04/10/20 20:30 Specimen Type Arterial 04/12/20 05:15 Sample Site Radial, right 04/12/20 05:15 ABG pH 7.42 (7.35-7.45) 04/12/20 05:15 ABG pCO2 40.2 mmHg (35-45) 04/12/20 05:15 ABG pO2 72.6 mmHg (80.0-100.0) L 04/12/20 05:15 ABG HCO3 26.2 mmol/L (22-26) H 04/12/20 05:15 ABG Base Excess 1.6 mmol/L (-2.0-2.0) 04/12/20 05:15 Jean-Paul Test Pos 04/12/20 05:15 Hematocrit 39.4 % (42-52) L 04/12/20 05:15 O2 Delivery Device Vent 04/12/20 05:15 Mechanical Rate 12.0 04/11/20 03:52 FiO2 40.0 % 04/12/20 05:15 PEEP 12.0 cmH20 04/12/20 05:15 Press Operator Apprentice ID vossa 04/12/20 05:15 Sodium 136 mmol/L (136-145) 04/12/20 04:10 Potassium 4.0 mmol/L (3.5-5.1) 04/12/20 04:10 Chloride 107 mmol/L (98-107) 04/12/20 04:10 Carbon Dioxide 23 mmol/L (22-29) 04/12/20 04:10 Anion Gap 10.0 (5-19) 04/12/20 04:10 BUN 8 mg/dL (6-20) 04/12/20 04:10 Creatinine 0.7 mg/dL (0.7-1.2) 04/12/20 04:10 GFR Calculation 115.8 mL/min (90-130) 04/12/20 04:10 Glucose 97 mg/dL (65-115) 04/12/20 04:10 Calculated Osmolality 280 mOsm/kg (285-295) L 04/12/20 04:10 Lactate 2.2 mmol/L (0.5-2.2) 04/11/20 04:47 Calcium 7.7 mg/dL (8.5-10.5) L 04/12/20 04:10 Magnesium 1.9 mg/dL (1.7-2.3) 04/11/20 04:47 Total Bilirubin 0.4 mg/dL (0.15-1.2) 04/12/20 04:10 AST 47 U/L (0-40) H 04/12/20 04:10 ALT 51 U/L (0-41) H 04/12/20 04:10 Alkaline Phosphatase 99 IU/L (40-130) 04/12/20 04:10 Creatine Kinase 82 U/L (39-308) 04/10/20 20:30 Troponin T Baseline 17 ng/L (0-15) H 04/10/20 20:30 Troponin T 120 Minute 12.04 ng/L (0-15) 04/10/20 22:30 Delta Troponin T -4.96 ABS# (0-10) L 04/10/20 22:30 Total Protein 5.7 g/dL (6.6-8.7) L 04/12/20 04:10 Albumin 3.0 g/dL (3.5-5.2) L 04/12/20 04:10 Globulin 2.7 g/dL (1.3-4.6) 04/12/20 04:10 TSH 0.71 uIU/mL (0.27-4.20) 04/10/20 20:30 Urine Color Yellow (Yellow) 04/10/20 21:38 Urine Appearance Clear (CLEAR) 04/10/20 21:38 Urine pH 6.5 (5-7) 04/10/20 21:38 Ur Specific [place] 1.005 (1.005-1.030) 04/10/20 21:38 Urine Protein Neg (Negative) 04/10/20 21:38 Urine Glucose (UA) Norm (Normal) 04/10/20 21:38 Urine Ketones Negative (Negative) 04/10/20 21:38 Urine Blood Neg (Negative) 04/10/20 21:38 Urine Nitrate Negative (Negative) 04/10/20 21:38 Urine Bilirubin Neg (Negative) 04/10/20 21:38 Urine Urobilinogen Norm mg/dL (Negative) 04/10/20 21:38 Ur Leukocyte Esterase Negative (Negative) 04/10/20 21:38 Salicylates < 0.3 mg/dL (3-10) L 04/10/20 20:30 Urine Opiates Screen Negative ng/mL (Negative) 04/10/20 21:38 Acetaminophen < 5.0 ug/mL (10-30) L 04/10/20 20:30 Ur Barbiturates Screen Negative ng/mL (Negative) 04/10/20 21:38 Phenytoin 0.8 ug/mL (10-20) L 04/10/20 22:30 Valproic Acid 2.8 ug/mL (50-100) L 04/10/20 22:30 Carbamazepine 2.0 ug/mL (4.0-12.0) L 04/10/20 22:30 Ur Phencyclidine Scrn Negative ng/mL (Negative) 04/10/20 21:38 Ur Amphetamines Screen Negative ng/mL (Negative) 04/10/20 21:38 U Benzodiazepines Scrn Negative ng/mL (Negative) 04/10/20 21:38 Jagual 0.1 mmol/L (0.6-1.2) L 04/10/20 22:30 Urine Cocaine Screen Negative ng/mL (Negative) 04/10/20 21:38 U Marijuana (THC) Screen Negative ng/mL (Negative) 04/10/20 21:38 Ethyl Alcohol 266 mg/dL (0-10) H 04/10/20 20:30 H. pylori IgG Antibody Negative (Negative) 04/12/20 04:10 Impressions Chest X-Ray 04/10/20 20:52 IMPRESSION: 1. Possible right hilar mass versus prominent pulmonary artery. CTA chest dated January 20, 2020 reveals pulmonary artery hypertension with no hilar mass. 2. ET tube tip over the distal trachea, 1 cm proximal to the cheng. Cervical Spine CT 04/10/20 21:19 IMPRESSION: No acute cervical spinal injury demonstrated by CT. Radiation Dose CTDIVOL = (mGy): DLP = 514.04 (mGy-cm) Head CT 04/10/20 21:19 IMPRESSION: No acute intracranial pathology demonstrated by CT. Radiation Dose CTDIVOL = (mGy): DLP = 796.52 (mGy-cm) A&P Assessment and plan (1) Suicidal overdose: Status: Acute (2) Endotracheally intubated: Status: Acute (3) Respiratory failure requiring intubation: Status: Acute (4) Alcohol abuse: Status: Acute Additional A&P Information Suicidal attempt with drug overdose Multiple empty bottles found around the patient, patient endorsed to taking multiple dose of trazodone, alcohol abuse No ischemic or infarctive changes or severe interval changes on EKG 96-hour hold and psychiatric consult on extubation Acute respiratory failure requiring mechanical ventilation for acute hypoxia Patient was saturating 88% on 6 L, combative despite getting IM ketamine, was intubated in the ER Endotracheal tube in satisfactory position on chest x-ray, Increased respiratory rate for respiratory acidosis to increase minute ventilation for respiratory acidosis(respiratory acidosis after intubation) Sedation with propofol and fentanyl, midazolam added UGI bleeding : Protonix 40 mg IV BID stop eliquis Alcohol abuse Start CIWA protocol HIV Patient was taking Dovato and fluconazole Would be continuing this regimen via NG tube A. fib without RVR: Continue Eliquis via NG tube Would use IV AV andre blocking agents if required Full code DVT prophylaxis not needed, currently is on Eliquis N.p.o. [place] Trazodone overdose secondary to suicidal attempt. Continuing supportive care. Monitoring on telemetry. Severe depression and suicidal attempt. Will request psychiatry evaluation tomorrow. Currently stable. We will continue one-on-one observation. Respiratory failure secondary to #1. Resolved. Extubated. Stable currently. History of COPD. Currently stable no evidence of acute exacerbation. Continue monitoring and current management. Reported upper GI bleeding and acute blood loss anemia. Hemodynamically stable. Eliquis is on hold. Continue PPI. Requesting GI consultation. We appreciate Dr. Pollard's input. Elevated LFTs. Probably secondary to EtOH. We will continue monitoring. History of HIV. Continue current medications. History of PE and DVT. We will try to resume Eliquis as soon as possible from the surgical standpoint. The plan of care was discussed with the multidisciplinary team. Attestations Medical Necessity Statement*: Critical care time spent on this encounter was 65 minutes. The patient still requires ICU and inpatient hospitalization. Coding Level of Care Code Acute Marketing Effectiveness Manager for Osmin Fwd Diagnoses Suicidal overdose T50.902A Endotracheally intubated Z97.8 Respiratory failure requiring intubation J96.90 Alcohol abuse F10.10
[2020-04-13] VITALS (27 sets, daily range): BP systolic 87–120; BP diastolic 62–75; PULSE 89–107; RESP 14–25; TEMP 36.9–37.7; O2SAT 4–94
[2020-04-13] MEDS: LORazepam 2 mg/mL INJ 1 mL IM (03:03)
[2020-04-13 03:39] LABS: Basophils % 0.6 %; Eosinophils # 0.1 10^3/uL (0.0-0.8); Eosinophils % 1.3 %; Hematocrit 38.6 % (42.0-52.0); Hemoglobin 12.4 g/dL (11.7-16.6); Lymphocytes # 1.6 10^3/uL (0.8-4.8); Lymphocytes % 22.4 %; Mean Corpuscular HGB Conc 32.1 g/dL (30.0-36.0); Mean Corpuscular Hemoglobin 29.5 pg (28.0-34.0); Mean Corpuscular Volume 91.7 fL (80-94); Mean Platelet Volume 9.4 fL (7.4-10.4); Monocytes # 0.6 10^3/uL (0.2-0.9); Monocytes % 9.2 %; Neutrophils # 4.57 10^3/uL (1.8-7.7); Neutrophils % 66.1 %; Nucleated Red Blood Cells % 0 %; Platelet Count 151 10^3/cmm (130-400); Red Blood Count 4.21 10^6/uL (4.1-5.3); Red Cell Distribution Width 14.9 % (12.1-15.1); White Blood Count 6.9 10^3/uL (4.0-10.0)
[2020-04-13 04:01] LABS: Alanine Aminotransferase 57 U/L (0-41); Albumin Level 3.2 g/dL (3.5-5.2); Alkaline Phosphatase 106 IU/L (40-130); Anion Gap 13.8 (5-19); Aspartate Amino Transferase 69 U/L (0-40); Blood Urea Nitrogen 8 mg/dL (6-20); Calcium 8.2 mg/dL (8.5-10.5); Carbon Dioxide 25 mmol/L (22-29); Chloride 103 mmol/L (98-107); Glomerular Filtration Rate 99.3 mL/min (90-130); Glucose 92 mg/dL (65-115); Osmolality Calculated 284 mOsm/kg (285-295); Potassium 3.8 mmol/L (3.5-5.1); Sodium 138 mmol/L (136-145); Total Bilirubin 0.8 mg/dL (0.15-1.2); Total Protein 6.2 g/dL (6.6-8.7)
[2020-04-13] MEDS: pantoprazole 40 mg SDV IVP ×2 (05:45→17:06)
--- NOTE | 2020-04-13 07:42 | PM.PN ---
Subjective Subjective: Interval history: Patient now extubated and has been started on oral intake. Vitals/I&O/Wt Last Vital Signs Temp 98.6 F 04/13/20 06:00 Pulse 97 04/13/20 05:32 Resp 25 H 04/13/20 05:30 BP 110/70 04/13/20 05:30 Pulse Ox 86 L 04/13/20 06:00 04/12/20 04/13/20 04/13/20 22:59 06:59 14:59 Intake Total 371.25 / 1699.680 240 / 1699.680 Output Total 2600 / 4075 850 / 4075 Balance -2228.75 / -2375.320 -610 / -2375.320 Physical Exam Narrative: EXAM NARRATIVE: No significant change in abdomen; abdomen remains soft. Urinary Catheter Management^: Barba: Cath Placed During This Visit: yes Reason for Continuing Indwelling Catheter: Accurate Measurement of Urinary Output in Critically Ill Patients Urinary Catheter Date of Insertion: 04/10/20 Urinary Catheter Time of Insertion: 22:00 Data : 04/13/20 02:55 04/13/20 02:55 A&P Assessment and plan (1) Upper GI bleeding: Hemoglobin has actually improved. No clinical evidence of ongoing bleeding. Status: Acute (2) History of peptic ulcer disease: The patient has had evidence of esophagitis, gastritis with small chronic and superficial acute ulcerations, and duodenitis on previous studies. Status: Acute Attestations Medical Necessity Statement*: See admitting service's notation. Coding Level of Care Code Acute Human Resources Generalist for Osmin Ordonez Diagnoses Upper GI bleeding K92.2 History of peptic ulcer disease Z87.11
[2020-04-13] MEDS: thiamine 100 mg Tablet PO (08:59)
[2020-04-13] MEDS: fluconazole 100 mg Tablet NG-TUBE (08:59)
[2020-04-13] MEDS: folic acid 1 mg Tablet PO (08:59)
[2020-04-13] MEDS: multivitamin therapeutic Tablet 1 TAB PO (08:59)
--- NOTE | 2020-04-13 12:29 | P.HP_ITS ---
Providers/Chief Complaint Admitting Physician: Kenny Osborn MD Primary Care Provider: Rasheed Spivey MD Chief Complaint: SI HPI NPU History of Present Illness Flakito Almanzar is a 59 year old male who presented to the emergency room with the following report: Mr. Almanzar is a 59-year-old male who arrives via EMS after receiving sedation for agitation and combativeness. He received ketamine IM to control his aggression. Information is second and retail merchandiser technician but the best I can ascertain the patient was found to have possibly overdosed. He admitted to police he took 30 trazodone but upon inspection of the room he was in multiple medicine bottles were empty. It is undetermined what the patient took or how much. No further history can be obtained. He was admitted to the ICU for definitive treatment of those issues. A psychiatric consult was obtained to determine whether he was safe for discharge. He is known to this financial underwriter through multiple previous admissions and excerpt of the last admission is included below for context. He was very resistant as a historian as we discussed the circumstances that brings him back here. He reports that he did go to a rehab like he was supposed to after our last contact and stayed there for 30 days. He reports that he went home and stop talking after that. was home for about 30 days and then reportedly inexplicably he began to drink and reports that he has drank 4 times prior to coming here intoxicated. He did not reveal with this financial underwriter that attempt. And only endorsed that he wanted to go home. We discussed the fact that he was on a 96-hour hold and he essentially stopped talking. We discussed the fact that given the emergency room report he would at least need to be evaluated in the neuropsychiatric unit. Per his last [facility] eval: History of Present Illness Flakito Almanzar is a 59 year old male who presented to the emergency room on 01-19-20 and was brought in with his Regional Sales Executive. This was a month after his previous hospitalization to the ICU for alcohol use, where he refused rehabilitation. He reportedly had been drinking a 24 pack of beer plus hard liquor everyday, for months, and he had reportedly threatened suicide several times. He was admitted to the ICU for definitive treatment of those issues. After two days in the ICU, he left the hospital against medical advise, and he returned on 01-20-20 late at night, and it had been identified that he had just left AMA; he was quite intoxicated and was in respiratory distress, only citing at 80% on 6 liters of oxygen and unable to give a history because of his intoxication and respiratory distress. So he was once admitted to the ICU for definitive treatment for his withdrawal and respiratory distress. Once he was medically cleared from the ICU, he was transferred to the neuropsychiatric unit for definitive treatment of his alcohol use disorder, depression, and suicidality. He presents today still resistant to the idea of inpatient rehabilitation. He was open to the idea of the utilization of Disulfiram / Antabuse after discussing the risks, benefits, and alternatives, but is resistant to the idea of rehab. We discussed the fact that his mom was planning on possibly challenging him in court to force him to go to an inpatient detox, against his will, which he was very upset about. We had a long discussion about how, at this point, his decision making is so flawed in relation to his alcohol that everyone treating him has grave concerns about which time we hear about him that is going to be the last time, due to how out of control his drinking is in relation to his overall medical issues. Ultimately, he seemed accepting that there was a high likelihood that we would support him being sent to rehab on a forced court order. We reviewed his last hospitalization notes, and he agreed that there had been no substantive changes and it represented his psycho-social history appropriately. Per his last [facility] eval 12/15/19: History of Present Illness Flakito Almanzar is a 59 year old male who presented to the emergency room intoxicated with a 96-hour hold affidavit stating he threatened to kill himself. He endorsed drinking heavily due to voices in his head. He was admitted on a 96-hour hold to the ICU for definitive treatment of his alcohol withdrawal and a psychiatric consult was initiated. Flakito was found to be cogent at the time of the interview reporting that he had gone to a rehab as planned but that he left after a few days secondary to being the oldest person there. This financial underwriter challenged that is a real reason to leave the rehab and he showed some sense of humor. He then very quickly started talking about discharge and ending the 96- hour hold what he thought was unfair. I explained that first of all he is not medically cleared and he is in an ICU. We discussed the fact that it is our assessment that him going to a rehab for 30, 60, 90, 180 days presents on the best chance of maintaining his sobriety. He claims that after he left the rehab that he was sober for weeks but based on his history it is unclear that that is unlikely reality. We reviewed his most recent evaluation here and he denies any substance of changes in his history so an excerpt was included below. Per last [facility] eval: History of Present Illness Flakito Almanzar is a 59 year old male who presented to the emergency room intoxicated again. There have been a call from his mother the day before that he had been drinking again and talking about admission. Reportedly he has not been drinking for that long. In the past several hospitalizations he has said he would do inpatient r only to ehab retract that at discharge and then either not go to outpatient rehab or go to outpatient rehab and then slip-up. We have advised him the last couple of times that inpatient rehab is really the only vehicle through which we see success for him. He presents today reporting that he is ready to go to inpatient rehab. He denied lethality he endorsed some depression but reported that he just cannot seem to stay sober and he acknowledges that he needs to go to inpatient services to have a chance for success. His last [facility] eval is included below. We reviewed that he denied any changes to his psychosocial situation. He still lives along he still has his mom and his machinist bench as his significant supports. His machinist bench was here when I arrived. Per last [facility] eval: HPI NPU History of Present Illness Flakito Almanzar is a 59 year old male who presents today as he has multiple times recently intoxicated and endorsing depression. His mother called and reported that he had gone to the outpatient rehab 3 times and then never returned. He spent the last week getting drunk with an individual that he had agreed he would avoid during this critical. When he is so vulnerable. She reported that he threatened to kill his stepfather while in an intoxicated state. He was very resistant to the initial interview though we reviewed his previous psychosocial information that can be seen below. We discussed his continued presentation with resistance for inpatient rehab followed by discharge to some outpatient services and generally return to drinking within a week to 2 weeks if not sooner. We discussed the reality of the situation and the need for him to get 30/60/90 days sobriety to allow his mind to function and make decisions that are in his best interest. Especially given his other medical comorbidities as we discussed in his last visit the impact of his drinking on his already taxed immune system. We discussed the risks benefits and alternatives of different interventions and he understood and agreed to proceed with us finding him an inpatient rehab bed. D/C summary including recent pertinent psychosocial information: Discharge Diagnosis (1) Alcoholic intoxication: Status: Resolved Qualifiers: Complication of substance-induced condition: with unspecified complication Qualified Code(s): F10.929 - Alcohol use, unspecified with intoxication, unspecified (2) Depression with suicidal ideation: Status: Resolved Reason for Visit Reason for Visit: Reason For Visit: ETOH INTOX;SI 96 HOUR HOLD Brief History: Psych Consult HPI History of Present Illness Flakito Almanzar is a 59 year old male known to this financial underwriter the previous interactions as he has been to the neuropsych unit 3 times since last March and this is the second ICU consult by this financial underwriter on Flakito since then. He has generally come in with suicidal thinking, depression and alcohol use/intoxication, been managed appropriately in the ICU, gone to the neuropsych unit for mental health treatment and been discharged without major incident. Unfortunately multiple times he has reported a plan to go to inpatient rehabilitation, and that has never actually happened. At some point prior to discharge he gives some intellectualized response as to why it's impossible or not the best for him that he go to the inpatient rehabilitation. Those things include commitments to the charge, commitments to school in his academic pursuits, as well as personal desires not to go. Today we discussed his presentation and concerns about lethality which he downplayed. He reported that he loves himself too much to commit suicide, that he knows we'll be sending us guide the committed suicide, as well as other reasons. He then went on to say that he would not be seen by this financial underwriter again, he was discharged. It seemed peculiar way that he said it. He tried to say that he would not be coming back here, because he wasn't going to drink, but it did not seem that was what he meant. He tried to say that he had plans to go to rehabilitation in the morning and that this had been prearranged. That has mother was aware and that he had to leave tonight so that he can get some things done that only he could do prior to going for 30 days. His demeanor raised enough concern that I discussed with Dr. Dunbar that we needed to confirm with his mother that this was a known plan otherwise it raises concerns that he was trying to discharge to possibly harm himself. Otherwise he reported that there have been no changes in his psychosocial conditions. He reports that his history and situation had not changed and was consistent with my previous interview in March which can be seen below. Per last consult: History of Present Illness Date of Service: Apr 04, 2019 Reason for Consultation: Intoxication with reported aggressive threats Consulting Service and Doctor: Niko Bang M.D. Psychiatry. HPI: Flakito presents today somewhat lethargic having had a significant amount of Ativan to combat his alcohol withdrawal reporting that he's been having a fairly tough time recently. He reports that alcohol use has changed to an alarming level the last year and reports that the issue surrounds dealing with his homosexuality and the fact that he feels unworthy of guys love given his of homosexuality. He denies having any significant mental health treatment or hospitalizations or any problems and reports that he grew up in a fairly christian family and reports that about a year ago he began to really struggle with his known homosexuality to himself but reports that he began living a clearly homosexual life which she is struggle with from a spiritual standpoint. Records show confusing contradictions as he has had the diagnosis of HIV for some time and is unclear how that occurred however this is how he reports the story. He reports that he has been drinking about 4 pints of alcohol a day and reports that that has been going on for about a year. He reports he is probably only had a day here and there that he hasn't had a drink in this period of time. He also identifies that about 2 weeks ago he had a 1 or 2 day cessation of drinking where and he had a withdrawal seizure. He had reached out to [facility] or this may have occurred during his emergency room stent however there is reportedly a bed available for him but we discussed the risks benefits and alternatives of home taking that bed with an understanding that he needs to be through the detox aspect of the situation prior to going to [facility]. His blood alcohol was 400 at about noon yesterday. He had gone to the emergency room and then left and apparently when he left the went home and had another pint of alcohol and was found unconscious and brought back to the emergency room which is how he got into the ICU. He reports a plan and agreement to work with the treatment team and psychiatric services to try to get him in a condition that it is safe for him to go to [facility] on Sunday at 8 AM when they would pick him up here at [facility]. Active Meds: Current Hospital Medications: Medications (Trade) Dose Ordered Sig/[place] Route PRN Reason Start Time Stop Time Status Last Admin Dose Admin Potassium Chloride/Sodium Chloride 1,000 ml @ 125 mls/hr CONT IV 04/03/19 15:15 Hold 04/04/19 09:12 Thiamine Mononitrate (Thiamine Tab) 100 mg DAILY PO 04/04/19 10:00 04/04/19 09:10 Multivitamins Therapeutic (Therapeutic Multivitamin) 1 ea DAILY PO 04/04/19 10:00 04/04/19 09:10 Folic Acid/ Cyanocobalamin/ pyridoxin (Folic Acid Tab) 1 mg DAILY PO 04/04/19 10:00 04/04/19 09:10 Lorazepam (Ativan Inj) 2 mg PRN PRN IV FOR WITHDRAWAL 04/03/19 15:15 04/04/19 13:00 Lorazepam (Ativan Inj) 2 mg PRN PRN IM for Withdrawal 04/03/19 15:15 Lorazepam (Ativan Tab) 2 mg PRN PRN PO Withdrawal 04/03/19 15:15 04/04/19 16:07 Acetaminophen (Tylenol Tab) 650 mg Q4H PRN PO FOR MILD PAIN 04/03/19 15:15 Ondansetron HCl (Zofran Inj) 4 mg Q6H PRN IV FOR NAUSEA AND VOMITING 04/03/19 15:15 Pantoprazole Sodium (Protonix Tab) 40 mg DAILY PO 04/04/19 10:00 04/04/19 09:10 Enoxaparin Sodium (Lovenox) 40 mg Q24H SUBCUT 04/03/19 15:15 04/04/19 16:07 Nicotine (Nicoderm Patch) 21 mg DAILY PRN TD 04/04/19 04:30 04/04/19 05:05 Dexmedetomidine HCl 400 mcg/ Sodium Chloride 104 ml @ 0 mls/hr CONT IV 04/04/19 10:00 04/04/19 10:18 Haloperidol Lactate (Haldol Inj) 5 mg Q3H PRN IM FOR AGITATION 04/04/19 13:30 Home Meds: Home Medications: Active Reported [Opsumit] 1 Tab PO DAILY Symbicort 80-4.5 Mcg Inhaler (Budesonide/Formoterol Fumarate) 10.2 Gm Inhaler 2 Puff INH BID Iron Sulfate 325MG Tab (Ferrous Sulfate) 325 Mg Tabec 325 Mg PO BREAKFAST Diflucan Tab (Fluconazole) 100 Mg Tablet 100 Mg PO DAILY Wellbutrin XL (Bupropion HCl) 150 Mg Tab.sr.24h 150 Mg PO DAILY Trazodone Tab (Trazodone HCl) 150 Mg Tablet 300 Mg PO BEDTIME Klor Con Tab (Potassium Chloride) 20 Meq Tab.prt.sr 20 Meq PO TID Protonix Tab (Pantoprazole Sodium) 40 Mg Tabec 40 Mg PO DAILY [Descovy] 1 Tab PO DAILY Isentress Chew Tab (Raltegravir) 100 Mg Tab.chew 400 Mg PO BID Xanax Tab (Alprazolam) 0.25 Mg Tab 0.25 Mg PO TID Oxycodone IR (Oxycodone HCl) 30 Mg Tab 30 Mg PO QID PRN Duragesic Patch (Fentanyl) 50 Mcg Patch 50 Mcg TD Q72H Prednisone Tab (Prednisone) 10 Mg Tablet 20 Mg PO DAILY Narcan (Naloxone HCl) 4 Mg/Actuation [place] 4 Mg NASAL ONCE PRN 1 Days Cartia XT (Diltiazem HCl) 240 Mg Cap.sr.24h 240 Mg PO DAILY Pradaxa Cap (Dabigatran) 150 Mg Capsule 150 Mg PO BID Voltaren Gel (Diclofenac Gel) 100 Gm Gel..gm. 1 Applic TOP QID PRN Past Medical History Past Medical History: Please see ED and ICU notes for additional history. Other Family Medical History: He denies significant mental health, addiction or other issues in his family. He denies any history of suicide attempts or completions in his family. Other Past Social History: Developmental history: Flakito reports being the product of a normal . He endorses that he learn to walk and talk and met his development milestones on time. He denied any speech therapy, learning support, emotional support special education classes. Psychosocial history: He reports being the only child of his parents and that they were together when he was born. He denies any other siblings through their union with any other partners and reports that they never . He reports that his childhood was good but he was raised in a fairly christian family went to tenriism on Sundays and Wednesdays at least. He reports he graduated from high school. He endorses being homosexual and his long-term relationship has not been very long. He denies ever being , never had any children, never been in the he endorses being a Moravian. He reports his longest tenure in [employer] was about 7 years. He reports he lives in a house alone. He denies any significant legal history. Meds NPU Home Medications Medication Instructions Recorded Confirmed Last Taken Type potassium chloride 20 mEq 20 meq PO BID 07/21/19 04/11/20 12/10/19 History tablet,extended release(part/cryst) apixaban [Eliquis] 5 mg PO BID #30 tab 01/27/20 04/11/20 Unknown Rx budesonide 0.5 mg INHALATION BID.RESPIRATORY 01/27/20 04/11/20 Unknown Rx #60 ml chlordiazepoxide HCl 10 mg PO Q12H #14 cap 01/27/20 04/11/20 Unknown Rx chlordiazepoxide HCl 25 mg PO Q12H #15 cap 01/27/20 04/11/20 Unknown Rx dolutegravir-lamivudine [Dovato] 1 tab PO DAILY #30 cap 01/27/20 04/11/20 Unknown Rx fluconazole 100 mg PO DAILY #30 tab 01/27/20 04/11/20 Unknown Rx folic acid 1 mg PO DAILY #30 tab 01/27/20 04/11/20 Unknown Rx gabapentin 600 mg PO BEDTIME #60 cap 01/27/20 04/11/20 Unknown Rx ipratropium-albuterol 3 ml INHALATION Q6H.RESPIRATORY 01/27/20 04/11/20 Unknown Rx #240 ml macitentan [Opsumit] 10 mg PO DAILY #30 cap 01/27/20 04/11/20 Unknown Rx mirtazapine 15 mg PO BEDTIME #30 tab 01/27/20 04/11/20 Unknown Rx multivitamin with folic acid 1 tab PO DAILY #30 tab 01/27/20 04/11/20 Unknown Rx [Thera] pantoprazole 40 mg PO QAM #30 tab 01/27/20 04/11/20 Unknown Rx sulfamethoxazole-trimethoprim 1 tab PO MoWeFr@0800 #15 tab 01/27/20 04/11/20 Unknown Rx trazodone 300 mg PO BEDTIME #60 tab 01/27/20 04/11/20 Unknown Rx diltiazem HCl 240 mg capsule,24 240 mg PO QAM #90 cap 02/13/20 04/11/20 Unknown Rx hr,extended release albuterol sulfate [Ventolin HFA] See Rx Instructions .ROUTE .COMPLEX 04/11/20 04/11/20 Unknown History alprazolam See Rx Instructions .ROUTE .COMPLEX 04/11/20 04/11/20 Unknown History disulfiram [Antabuse] See Rx Instructions .ROUTE .COMPLEX 04/11/20 04/11/20 Unknown History dolutegravir-lamivudine [Dovato] See Rx Instructions .ROUTE .COMPLEX 04/11/20 04/11/20 Unknown History fentanyl See Rx Instructions .ROUTE .COMPLEX 04/11/20 04/11/20 Unknown History hydroxyzine HCl See Rx Instructions .ROUTE .COMPLEX 04/11/20 04/11/20 Unknown History sildenafil (pulm.hypertension) See Rx Instructions .ROUTE .COMPLEX 04/11/20 04/11/20 Unknown History testosterone See Rx Instructions .ROUTE .COMPLEX 04/11/20 04/11/20 Unknown History Allergies Allergy/AdvReac Type Severity Reaction Status Date / Time No Known Allergies Allergy Verified 09/01/19 08:52 PFSH NPU PFSH: Medical History (Updated 04/12/20 @ 13:11 by Kilo Pollard MD) Anorexia Atrial fibrillation Colon polyps COPD (chronic obstructive pulmonary disease) Severe COPD Diverticulitis / Diverticulosis GI bleed Was taken off Coumadin for a month in 2015 after a bleeding gastric ulcer, currently on Eliquis History of peptic ulcer disease HIV (human immunodeficiency virus infection) Hypogonadism Liver tumor Lymphoma 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 No evidence of recurrence, currently getting RETAIL CLIENT SOLUTIONS ANALYST prophylaxis with intrathecal methotrexate with prophylactic radiation to right testicle, CHOP treatment Meningitis Orchialgia Pulmonary embolism DVT of right leg, 2009 Pulmonary hypertension After PE Surgical History (Updated 04/12/20 @ 13:13 by Kilo Pollard MD) H/O colonoscopy 2001 -diverticulosis, colon polyps / 2005 -diverticulosis, small telangiectasia / 01/2016 -diverticulosis with intrinsic stenosis and sigmoid H/O esophagogastroduodenoscopy 2005 -reflux esophagitis, superficial gastric erosions with hemorrhagic gastritis, duodenitis /2008 -reflux esophagitis, gastritis, small chronic gastric ulcer H/O hemorrhoidectomy History of orchiectomy, unilateral L -- diffuse large B-cell lymphoma Family History Other No pertinent family history Social History (Updated 04/12/20 @ 13:07 by Klio Pollard MD) Smoking and tobacco status: current every day smoker cigarettes Packs smoked per day: 2 Alcohol intake: current Household members: family Housing: House Mental Status Exam MSE Comments: This is a feeble, sickly appearing, white male, with nasal cannula in, with limited dress, grooming, and eye contact. No abnormal movements, except for psychomotor retardation and some mild tremor. Semi- cooperative with exam in no acute distress. Speech was decreased rate and volume. Mood described as OK; affect congruent. Thought process, organized. Thought content: patient denied any suicidal or homicidal ideation, there were no delusions reported or noted, patient denied any auditory or visual hallucinations. Attention, concentration, and memory appear intact but none were formally tested. He is alert and oriented times three. Insight and judgment are impaired. Impulse control is impaired. Vitals/I&O/Wt Last Vital Signs Temp 98.4 F 04/13/20 20:00 Pulse 104 H 04/13/20 20:18 Resp 17 04/13/20 20:18 BP 102/69 04/13/20 20:00 Pulse Ox 4 L 04/13/20 20:18 04/13/20 04/13/20 04/14/20 14:59 22:59 06:59 Intake Total 690 / 690 300 / 990 Output Total 500 / 500 Balance 690 / 690 -200 / 490 Physical Exam Urinary Catheter Management^: Barba: Cath Placed During This Visit: yes Reason for Continuing Indwelling Catheter: Accurate Measurement of Urinary Output in Critically Ill Patients Urinary Catheter Date of Insertion: 04/10/20 Urinary Catheter Time of Insertion: 22:00 Data NPU : 04/14/20 04:35 04/14/20 04:35 A&P Assessment and plan (1) Drug overdose: Status: Acute Qualifiers: Encounter type: initial encounter Injury intent: intentional self-harm Qualified Code(s): T50.902A - Poisoning by unspecified drugs, medicaments and biological substances, intentional self-harm, initial encounter (2) Suicidal overdose: Status: Acute (3) Posttraumatic stress disorder: Status: Chronic (4) Alcohol use disorder: Status: Chronic (5) Major depressive disorder: Status: Chronic (6) HIV (human immunodeficiency virus infection): Status: Chronic Additional A&P Information This is a 59-year-old white male well-known to this financial underwriter with significant history of alcohol use disorder severe with reports of recent stent in a rehab followed by some weeks of sobriety but he has returned to drinking and was admitted to the ICU secondary to a intentional overdose. He is on a 96-hour hold and will need to be evaluated in the neuropsychiatric unit. 1. Continue current medication. 2. Continue on one-to-one and he will be on one-to-one in the MPU secondary to his nasal cannula and continuous oxygen. 3. Once he reaches the unit we will encourage individual, group and milieu therapy. 4. Encourage sober living treatment after discharge at the highest level of care to which she is willing to commit. If he did in fact do a 30-day program that we need to increase it to a 90-day program or 1 year. Involuntary Hold Information 96 Hour Hold: 96 Hour Involuntary Admission: Yes 96 Hour Hold Ending Date: 01/27/20 96 Hour Hold Ending Time: 14:00 Attestations NPU Medical Necessity Statement*: Inpatient hospitalization is medically necessary and the clinically appropriate intervention at the time. Once he is medically cleared from the hospitalists standpoint he should be transferred to the neuropsychiatric unit for definitive treatment of his issues. He will be in the hospital for over 2 midnights. Likely length of stay 2 to 4 days. Coding Level of Care Code Acute Optical Mechanic Apprentice for Osmin Ordonez Diagnoses Drug overdose T50.902A Encounter type: initial encounter Injury intent: intentional self-harm Suicidal overdose T50.902A Posttraumatic stress disorder F43.10 Alcohol use disorder Major depressive disorder F32.9 HIV (human immunodeficiency virus infection) B20
--- NOTE | 2020-04-13 12:40 | DCPLANNER ---
Pg 2 of IM updated and reviewed with pt. No questions. Copy provided.
--- NOTE | 2020-04-13 13:18 | PC.NURSE ---
Dread faxed to [facility].
--- NOTE | 2020-04-13 13:26 | PC.NURSE ---
Report called to [facility] and given to MIRIAN Dillard. No questions.
--- NOTE | 2020-04-13 13:50 | PC.NURSE ---
Patient arrived from ICU transfer via wheelchair, !:1 sitter in room, patient denies pain, no distress noted, call light in reach, side rails up X2.
--- NOTE | 2020-04-13 13:59 | PC.NURSE ---
Addendum entered by Jacqueline Hinkle RN 04/13/20 14:01: Home med Dovato, and [facility] Original Note: Pt transferred to [facility] via W/C with Oxygen. Further report/update given to MIRIAN Dillard. Sitter at bedside. Verified with MIRIAN Dillard per chart that Mom took wallet and phone home when she brought in his Dovato yesterday. Flakito informed of this.
[2020-04-13] MEDS: nicotine 14 mg Patch 1 PATCH TRANSDERMA (16:09)
--- NOTE | 2020-04-13 16:48 | P.PN_ITS ---
Subjective Subjective: Interval history: Patient is awake alert oriented x3. No acute distress. Flat affect is present. Responses are adequate but he is responding unwillingly. Denies any active complaints. Denies shortness of breath, chest pain, palpitations, nausea or vomiting. Fever or chills. Medications: Reviewed: Yes Medication Review Details: Generic Name Dose Route Start Last Admin Trade Name Freq PRN Reason Stop Dose Admin Albuterol/Ipratrop ium 3 ml 04/10/20 23:35 04/12/20 20:07 Duoneb INHALATION 3 ml Q6H PRN Administration SHORTNESS OF MUKUND TH Diltiazem HCl 240 mg 04/11/20 06:00 04/11/20 04:14 Cardizem Cd (24h r) NG-TUBE Not Given QAM GRACIELA Fluconazole 100 mg 04/11/20 09:00 04/13/20 08:59 Diflucan Tab NG-TUBE 100 mg DAILY GRACIELA Administration Folic Acid 1 mg 04/11/20 09:00 04/13/20 08:59 Folic Acid PO 1 mg DAILY GRACIELA Administration Lorazepam 2 mg 04/10/20 23:35 04/13/20 03:03 Ativan IM 2 mg Q4H PRN Administration ALCOWD Protocol Lorazepam 2 mg 04/10/20 23:35 04/12/20 13:20 Ativan IVP 2 mg PRN PRN Administration WITHDRAWAL Protocol Multivitamins Ther apeutic 1 tab 04/11/20 09:00 04/13/20 08:59 Multivitamin Tab PO 1 tab DAILY GRACIELA Administration Nicotine 1 patch 04/13/20 15:46 04/13/20 16:09 Nicoderm 14 Mg P atch TRANSDERMA 1 patch DAILY GRACIELA Administration Non-Formulary Medi cation 1 tab 04/11/20 09:00 04/13/20 08:59 Dolutegravir-Vega ivudine [Dovato] G-TUBE 1 tab DAILY GRACIELA Administration Pantoprazole Sodiu m 40 mg 04/11/20 18:15 04/13/20 05:45 Protonix IVP 40 mg Q12H GRACIELA Administration Thiamine Mononitra te 100 mg 04/11/20 09:00 04/13/20 08:59 Vitamin B-1 PO 100 mg DAILY GRACIELA Administration Vitals/I&O/Wt Last Vital Signs Temp 98.4 F 04/13/20 16:00 Pulse 95 04/13/20 16:00 Resp 20 H 04/13/20 16:00 BP 105/68 04/13/20 16:00 Pulse Ox 90 04/13/20 16:00 04/13/20 04/13/20 04/13/20 06:59 14:59 22:59 Intake Total 240 / 1699.680 690 / 690 Output Total 850 / 4075 500 / 500 Balance -610 / -2375.320 690 / 690 -500 / 190 Physical Exam Narrative: EXAM NARRATIVE: Slightly confused. Awake. No acute distress. Responses are adequate. Speech slow but without aphasia or dysarthria. Skin is warm and dry. Moist mucous membranes. Neck supple no JVD Lungs clear bilaterally. No respiratory distress Heart S1, S2, regular Abdomen soft, nontender, bowel sounds are present Extremities no edema cyanosis or calf tenderness bilaterally Moves all extremities. Eyes Abby. Her ocular muscles are intact. No tremors. Urinary Catheter Management^: Barba: Cath Placed During This Visit: yes Reason for Continuing Indwelling Catheter: Accurate Measurement of Urinary Output in Critically Ill Patients Urinary Catheter Date of Insertion: 04/10/20 Urinary Catheter Time of Insertion: 22:00 Data : 04/13/20 02:55 04/13/20 02:55 A&P Assessment and plan (1) Suicidal overdose: Status: Acute (2) Endotracheally intubated: Status: Acute (3) Respiratory failure requiring intubation: Status: Acute (4) Alcohol abuse: Status: Acute Additional A&P Information Suicidal attempt with drug overdose Multiple empty bottles found around the patient, patient endorsed to taking multiple dose of trazodone, alcohol abuse No ischemic or infarctive changes or severe interval changes on EKG 96-hour hold and psychiatric consult on extubation Acute respiratory failure requiring mechanical ventilation for acute hypoxia Patient was saturating 88% on 6 L, combative despite getting IM ketamine, was intubated in the ER Endotracheal tube in satisfactory position on chest x-ray, Increased respiratory rate for respiratory acidosis to increase minute ventilation for respiratory acidosis(respiratory acidosis after intubation) Sedation with propofol and fentanyl, midazolam added UGI bleeding : Protonix 40 mg IV BID stop eliquis Alcohol abuse Start CIWA protocol HIV Patient was taking Dovato and fluconazole Would be continuing this regimen via NG tube A. fib without RVR: Continue Eliquis via NG tube Would use IV AV andre blocking agents if required Full code DVT prophylaxis not needed, currently is on Eliquis N.p.o. [place] Trazodone overdose secondary to suicidal attempt. Resolved. Continuing supportive care. Severe depression and suicidal attempt. Discussed with Dr. Bang who already saw the patient. He is also concerned about uncontrolled depression and suicidal attempt. He is recommending inpatient psychiatric hospitalization. Probably will transfer him tomorrow. Respiratory failure secondary to #1. Resolved. Extubated. Stable currently. History of COPD. Currently stable no evidence of acute exacerbation. His cur rent oxygen need is likely higher than his baseline. No evidence of acute exacerbation of COPD on physical exam. We will continue current management. Will reassess in the morning. Reported upper GI bleeding and acute blood loss anemia. Hemodynamically stable. No evidence of continuous GI bleeding. Discussed with Dr. Pollard. He is okay with resuming Eliquis. We will recheck his CBC in the morning. Elevated LFTs. Probably secondary to EtOH. We will continue monitoring. History of HIV. Continue current home medications. History of PE and DVT. As above. The plan of care was discussed with the multidisciplinary team. Attestations Medical Necessity Statement*: Possible transfer to psych unit tomorrow Coding Level of Care Code Acute Director Software Quality Assurance for g Fwd Diagnoses Suicidal overdose T50.902A Endotracheally intubated Z97.8 Respiratory failure requiring intubation J96.90 Alcohol abuse F10.10
[2020-04-13] MEDS: apixaban 5 mg Tablet PO (17:06)
[2020-04-13] MEDS: mirtazapine 15 mg Tablet PO (23:02)
[2020-04-14] VITALS (12 sets, daily range): BP systolic 90–128; BP diastolic 60–85; PULSE 74–99; RESP 14–21; TEMP 36.6–37.1; O2SAT 90–95
[2020-04-14 05:39] LABS: Basophils % 0.3 %; Eosinophils # 0.2 10^3/uL (0.0-0.8); Eosinophils % 3.2 %; Hematocrit 40.6 % (42.0-52.0); Hemoglobin 13.4 g/dL (11.7-16.6); Lymphocytes # 1.3 10^3/uL (0.8-4.8); Mean Corpuscular Hemoglobin 29.4 pg (28.0-34.0); Mean Platelet Volume 9.7 fL (7.4-10.4); Monocytes # 0.6 10^3/uL (0.2-0.9); Neutrophils # 4.14 10^3/uL (1.8-7.7); Neutrophils % 66.2 %; Nucleated Red Blood Cells % 0 %; Platelet Count 168 10^3/cmm (130-400); Red Blood Count 4.56 10^6/uL (4.1-5.3); Red Cell Distribution Width 14.5 % (12.1-15.1); White Blood Count 6.3 10^3/uL (4.0-10.0)
[2020-04-14 06:08] LABS: Albumin Level 3.5 g/dL (3.5-5.2); Anion Gap 14.6 (5-19); Blood Urea Nitrogen 7 mg/dL (6-20); Calcium 8.2 mg/dL (8.5-10.5); Carbon Dioxide 23 mmol/L (22-29); Chloride 104 mmol/L (98-107); Glomerular Filtration Rate 170.8 mL/min (90-130); Glucose 91 mg/dL (65-115); Phosphorus 3.1 mg/dL (2.5-4.5); Potassium 3.6 mmol/L (3.5-5.1); Sodium 138 mmol/L (136-145)
[2020-04-14 06:18] LABS: Magnesium 1.9 mg/dL (1.7-2.3)
[2020-04-14] MEDS: pantoprazole 40 mg SDV IVP (06:52)
[2020-04-14] MEDS: dilTIAZem ER (24HR) 240 mg Capsule PO (07:15)
[2020-04-14] MEDS: multivitamin therapeutic Tablet 1 TAB PO (09:32)
[2020-04-14] MEDS: apixaban 5 mg Tablet PO ×2 (09:32→17:36)
[2020-04-14] MEDS: fluconazole 100 mg Tablet NG-TUBE (09:32)
[2020-04-14] MEDS: thiamine 100 mg Tablet PO (09:32)
[2020-04-14] MEDS: folic acid 1 mg Tablet PO (09:33)
[2020-04-14] MEDS: nicotine 14 mg Patch 1 PATCH TRANSDERMA (09:33)
--- NOTE | 2020-04-14 11:11 | P.PN_ITS ---
Subjective Subjective: Interval history: Patient is awake alert oriented x3. No acute distress. Flat affect is little better today. Responses are adequate but he is responding unwillingly. Denies any active complaints. Denies shortness of breath, chest pain, palpitations, nausea or vomiting. Fever or chills. Vitals/I&O/Wt Last Vital Signs Temp 98.3 F 04/14/20 08:00 Pulse 99 04/14/20 09:11 Resp 14 04/14/20 09:11 BP 128/85 04/14/20 08:00 Pulse Ox 91 04/14/20 09:11 04/13/20 04/14/20 04/14/20 22:59 06:59 14:59 Intake Total 300 / 990 480 / 480 Output Total 500 / 500 Balance -200 / 490 480 / 480 Physical Exam Narrative: EXAM NARRATIVE: alert and Awake. No acute distress. Responses are adequate. Speech slow but without aphasia or dysarthria. Skin is warm and dry. Moist mucous membranes. Neck supple no JVD Lungs clear bilaterally. No respiratory distress Heart S1, S2, regular Abdomen soft, nontender, bowel sounds are present Extremities no edema cyanosis or calf tenderness bilaterally Moves all extremities. Eyes Abby. Her ocular muscles are intact. No tremors. Urinary Catheter Management^: Barba: Cath Placed During This Visit: yes, but has since been removed by the nurse Reason for Continuing Indwelling Catheter: Acute Urinary Retention or Obstruction Urinary Catheter Date of Insertion: 04/10/20 Urinary Catheter Time of Insertion: 22:00 Date Urinary Catheter Removed: 04/14/20 Time Urinary Catheter Discontinued: 09:25 Data : 04/14/20 04:35 04/14/20 04:35 A&P Assessment and plan (1) Suicidal overdose: Status: Acute (2) Endotracheally intubated: Status: Acute (3) Respiratory failure requiring intubation: Status: Acute (4) Alcohol abuse: Status: Acute Additional A&P Information Suicidal attempt with drug overdose Multiple empty bottles found around the patient, patient endorsed to taking multiple dose of trazodone, alcohol abuse No ischemic or infarctive changes or severe interval changes on EKG 96-hour hold and psychiatric consult on extubation Acute respiratory failure requiring mechanical ventilation for acute hypoxia Patient was saturating 88% on 6 L, combative despite getting IM ketamine, was intubated in the ER Endotracheal tube in satisfactory position on chest x-ray, Increased respiratory rate for respiratory acidosis to increase minute ventilation for respiratory acidosis(respiratory acidosis after intubation) Sedation with propofol and fentanyl, midazolam added UGI bleeding : Protonix 40 mg IV BID stop eliquis Alcohol abuse Start CIWA protocol HIV Patient was taking Dovato and fluconazole Would be continuing this regimen via NG tube A. fib without RVR: Continue Eliquis via NG tube Would use IV AV andre blocking agents if required Full code DVT prophylaxis not needed, currently is on Eliquis N.p.o. [place] Trazodone overdose secondary to suicidal attempt. Resolved. Continuing supportive care. Severe depression and suicidal attempt. Discussed with Dr. Bang who already saw the patient. He was also concerned about uncontrolled depression and suicidal attempt. were transferring the patient to psychiatric unit per his recommendations. Respiratory failure secondary to #1. Resolved. Extubated. Stable currently. History of COPD. Currently stable no evidence of acute exacerbation. continue home oxygen via nasal cannula and home medications. Reported upper GI bleeding and acute blood loss anemia. Hemodynamically stable. No evidence of continuous GI bleeding. Discussed with Dr. Pollard. He is okay with resuming Eliquis. continue monitoring CBC. EtOH. No evidence of withdrawals. Continue management per psychiatric recommendations. Receiving replacement of vitamins. Elevated LFTs. Probably secondary to EtOH. please continue monitoring. History of HIV. Continue current home medications. History of PE and DVT. As above. On Eliquis. The plan of care was discussed with the multidisciplinary teamand the patient. They verbalized understanding and agreement. Signing off. Please contact me as needed for questions regarding medical manage ment of this patient. My phone number is [phone] Attestations Medical Necessity Statement*: being transferred to psych unit. Coding Level of Care Code Acute Anesthesia Resident for Chg Fwd Diagnoses Suicidal overdose T50.902A Endotracheally intubated Z97.8 Respiratory failure requiring intubation J96.90 Alcohol abuse F10.10
--- NOTE | 2020-04-14 12:31 | PM.NPN ---
Subjective NPU Subjective: Interval history: Flakito presents today continuing to be resistant to admission in the neuropsychiatric unit. Upon questioning about why he feels discharge would be best reported that he took a drug overdose on a dare. He then expressed great out rage that he was being brought to the neuropsychiatric unit saying that he does not want to stay for 30 days. He cannot articulate who that he would like any particular period of time. He reports he is fine and that there is no reason for admission. Mental Status Exam MSE Comments: This is a feeble, sickly appearing, white male, with nasal cannula in, with limited dress, grooming, and eye contact. No abnormal movements, except for psychomotor retardation and some mild tremor. Semi-cooperative with exam in no acute distress. Speech was decreased rate and volume. Mood described as fine; affect irritable. Thought process, organized. Thought content: patient denied any suicidal or homicidal ideation, there were no delusions reported or noted, patient denied any auditory or visual hallucinations. Attention, concentration, and memory appear intact but none were formally tested. He is alert and oriented times three. Insight and judgment are impaired. Impulse control is impaired. Vitals/I&O/Wt Last Vital Signs Temp 97.8 F 04/14/20 20:21 Pulse 77 04/14/20 21:45 Resp 18 04/14/20 21:40 BP 92/60 04/14/20 20:21 Pulse Ox 94 04/14/20 21:40 04/14/20 04/14/20 04/15/20 14:59 22:59 06:59 Intake Total 480 / 480 Balance 480 / 480 Physical Exam Urinary Catheter Management^: Barba: Cath Placed During This Visit: yes, but has since been removed by the nurse Reason for Continuing Indwelling Catheter: Acute Urinary Retention or Obstruction Urinary Catheter Date of Insertion: 04/10/20 Urinary Catheter Time of Insertion: 22:00 Date Urinary Catheter Removed: 04/14/20 Time Urinary Catheter Discontinued: 09:25 Data NPU : 04/14/20 04:35 04/14/20 04:35 A&P Additional A&P Information (1) Drug overdose: (2) Suicidal overdose: (3) Posttraumatic stress disorder: (4) Alcohol use disorder: (5) Major depressive disorder: (6) HIV (human immunodeficiency virus infection): This is a 59-year-old white male well-known to this news writer with significant history of alcohol use disorder severe with reports of recent stent in a rehab followed by some weeks of sobriety but he has returned to drinking and was admitted to the ICU secondary to a intentional overdose. He is on a 96-hour hold and will need to be evaluated in the neuropsychiatric unit. 1. Continue current medication. 2. Continue on one-to-one in the NPU secondary to his nasal cannula and continuous oxygen. 3. encourage individual, group and milieu therapy. 4. Encourage sober living treatment after discharge at the highest level of care to which she is willing to commit. If he did in fact do a 30-day program that we need to increase it to a 90-day program or 1 year. Involuntary Hold Information 96 Hour Hold: 96 Hour Involuntary Admission: Yes 96 Hour Hold Ending Date: 04/16/20 96 Hour Hold Ending Time: 00:01 Attestations NPU Medical Necessity Statement*: Inpatient hospitalization is medically necessary and the clinically appropriate intervention at the time. We will monitor medications and make changes as indicated. He will be in the hospital for over 2 midnights. Likely length of stay 4-6 days. Coding Level of Care Code Acute Knockup Worker for Osmin Ordonez
[2020-04-14] MEDS: ipratropium-albuterol 3 mL Neb INHALATION (14:34)
[2020-04-14] MEDS: pantoprazole DR 40 mg Tablet PO (17:36)
[2020-04-14] MEDS: albuterol 8 gm MDI 2 PUFF INHALATION (21:40)
[2020-04-14] MEDS: trazodone 50 mg Tablet PO (21:55)
[2020-04-14] MEDS: mirtazapine 15 mg Tablet PO (21:55)
[2020-04-14] MEDS: hyDROXYzine 25 mg Capsule 50 MG PO (21:56)
[2020-04-14] MEDS: gabapentin 300 mg Capsule 600 MG PO (21:56)
--- NOTE | 2020-04-15 02:54 | PC.NURSE ---
Message to nurse. Patient is allowed to shave under observation.
[2020-04-15 06:00] VITALS: BP 99/63; PULSE 80; RESP 17; TEMP 37; O2SAT 97
[2020-04-15] MEDS: folic acid 1 mg Tablet PO (09:37)
[2020-04-15] MEDS: multivitamin therapeutic Tablet 1 TAB PO (09:37)
[2020-04-15] MEDS: apixaban 5 mg Tablet PO ×2 (09:37→17:04)
[2020-04-15] MEDS: nicotine 14 mg Patch 1 PATCH TRANSDERMA (09:37)
[2020-04-15] MEDS: pantoprazole DR 40 mg Tablet PO ×2 (09:37→17:04)
[2020-04-15] MEDS: thiamine 100 mg Tablet PO (09:37)
[2020-04-15 10:37] LABS: Chlamydia Trachomatis RNA TMA NOT DETECTED (NOT DETECTED); Neisseria Gonorrhoeae RNA, TMA NOT DETECTED (NOT DETECTED)
[2020-04-15] MEDS: dilTIAZem ER (24HR) 240 mg Capsule PO (13:13)
--- NOTE | 2020-04-15 13:47 | P.PN_ITS ---
Subjective NPU Subjective: Interval history: Flakito presents today reporting that he did not take the pills that he reported yesterday that he took on a dare. I reviewed the history in the chart with him and did not find he had shared with the emergency room doctor that he did in fact take the medication and possibly with the EMS as well. I explained to him the position he is putting is all in and that he wants to be discharged and ending his 96-hour hold and we are stuck with information from 2 individuals were prepared to go to court and say in fact he did say those things. He identified that he does need to make some changes in his life. That he did this to people that are not making it less likely that he abstains from alcohol. We discussed the prospect of me doing a 21-day hold versus him signing himself in allowing this property underwriter to do his due diligence and identifying that he will be safe for discharge and he understood and agreed to proceed as is documented in this note. Mental Status Exam MSE Comments: This is a sickly appearing, white male, with nasal cannula in, with limited dress, grooming, and eye contact. No abnormal movements, except for psychomotor retardation and some mild tremor. Semi-cooperative with exam in no acute distress. Speech was decreased rate and volume. Mood described as OK; affect irritable. Thought process, organized. Thought content: patient denied any suicidal or homicidal ideation, there were no delusions reported or noted, patient denied any auditory or visual hallucinations. Attention, concentration, and memory appear intact but none were formally tested. He is alert and oriented times three. Insight and judgment are impaired. Impulse control is impaired. Vitals/I&O/Wt Last Vital Signs Temp 98.6 F 04/15/20 06:00 Pulse 80 04/15/20 06:00 Resp 17 04/15/20 06:00 BP 99/63 04/15/20 06:00 Pulse Ox 97 04/15/20 06:00 Physical Exam Urinary Catheter Management^: Barba: Cath Placed During This Visit: yes, but has since been removed by the nurse Reason for Continuing Indwelling Catheter: Acute Urinary Retention or Obstruction Urinary Catheter Date of Insertion: 04/10/20 Urinary Catheter Time of Insertion: 22:00 Date Urinary Catheter Removed: 04/14/20 Time Urinary Catheter Discontinued: :25 Data NPU : 04/14/20 04:35 04/14/20 04:35 A&P Additional A&P Information (1) Drug overdose: (2) Suicidal overdose: (3) Posttraumatic stress disorder: (4) Alcohol use disorder: (5) Major depressive disorder: (6) HIV (human immunodeficiency virus infection): This is a 59-year-old white male well-known to this property underwriter with significant history of alcohol use disorder severe with reports of recent stent in a rehab followed by some weeks of sobriety but he has returned to drinking and was admitted to the ICU secondary to a intentional overdose. He is on a 96-hour hold and will need to be evaluated in the neuropsychiatric unit. 1. Continue current medication. We will again explore the Antabuse. 2. Continue on one-to-one in the NPU secondary to his nasal cannula and continuous oxygen. 3. encourage individual, group and milieu therapy. 4. Encourage sober living treatment after discharge at the highest level of care to which she is willing to commit. If he did in fact do a 30-day program that we need to increase it to a 90-day program or 1 year. 5. He has agreed to sign himself into the unit with a plan to evaluate him for safety and have him discharged if he is safe by Sunday. Involuntary Hold Information 96 Hour Hold: 96 Hour Involuntary Admission: Yes 96 Hour Hold Ending Date: 04/16/20 96 Hour Hold Ending Time: 00:01 Attestations NPU Medical Necessity Statement*: Inpatient hospitalization is medically necessary and the clinically appropriate intervention at the time. We will monitor medications and make changes as indicated. Likely length of stay 2-4 days. Coding Level of Care Code Acute Manager Business Development [facility] for Osmin Ordonez
[2020-04-15 14:00] VITALS: BP 117/75; PULSE 80; RESP 18; TEMP 36.6; O2SAT 95
[2020-04-15] MEDS: hyDROXYzine 25 mg Capsule 50 MG PO (21:06)
[2020-04-15] MEDS: gabapentin 300 mg Capsule 600 MG PO (21:06)
[2020-04-15] MEDS: OLANZapine 5 mg ODT PO (21:07)
[2020-04-15] MEDS: trazodone 50 mg Tablet PO (21:07)
[2020-04-15] MEDS: mirtazapine 15 mg Tablet PO (21:07)
[2020-04-15 21:15] VITALS: BP 99/61; PULSE 84; RESP 19; TEMP 37.8; O2SAT 95
[2020-04-15 23:45] VITALS: PULSE 88; RESP 18; O2SAT 95
[2020-04-16 06:00] VITALS: BP 95/52; PULSE 105; RESP 34; TEMP 38.3; O2SAT 92
[2020-04-16] MEDS: dilTIAZem ER (24HR) 240 mg Capsule PO ×2 (07:50→07:59)
[2020-04-16] MEDS: nicotine 14 mg Patch 1 PATCH TRANSDERMA (08:32)
[2020-04-16] MEDS: pantoprazole DR 40 mg Tablet PO ×2 (08:33→17:16)
[2020-04-16] MEDS: folic acid 1 mg Tablet PO (08:33)
[2020-04-16] MEDS: apixaban 5 mg Tablet PO ×2 (08:33→17:16)
[2020-04-16] MEDS: multivitamin therapeutic Tablet 1 TAB PO (08:33)
[2020-04-16] MEDS: thiamine 100 mg Tablet PO (08:33)
[2020-04-16] MEDS: acetaminophen 325 mg Tablet 650 MG PO (09:58)
--- NOTE | 2020-04-16 12:06 | PC.SOCIAL ---
Important Medicare Message Reviewed page 2 Important Medicare Message. Verbalized understanding and signed. Original to patient and copy in chart.
[2020-04-16] MEDS: blistex lip oint 7 gm Tube 1 APPLIC TOPICAL (12:10)
[2020-04-16 14:00] VITALS: BP 116/78; PULSE 80; RESP 16; TEMP 36.5; O2SAT 95
--- NOTE | 2020-04-16 14:42 | P.PN_ITS ---
Subjective NPU Subjective: Interval history: Flakito presents today reporting that he is feeling better. He reports that he knows that his behavior on the day of admission was labor union business representative O. He identifies that he continues to have people in his life that are not in his best interest. We discussed the last couple months and his mother's arrival for relapse and he identified that even when he does well it seems like he just will out of the blue have to have a drink. We discussed harm reduction and trying to really decrease the times that he drinks at all. He identifies that drinking 9 beers beverages is the thing that ultimately gets him in trouble with his drinking. He reports he is eating fine and sleeping better. Mental Status Exam MSE Comments: This is a sickly appearing, white male, with nasal cannula in, with limited dress, grooming, and eye contact. No abnormal movements, except for psychomotor retardation. Cooperative with exam in no acute distress. Speech was decreased rate and volume. Mood described as a little better; affect less irritable. Thought process, organized. Thought content: patient denied any suicidal or homicidal ideation, there were no delusions reported or noted, patient denied any auditory or visual hallucinations. Attention, concentration, and memory appear intact but none were formally tested. He is alert and oriented times three. Insight and judgment are impaired, but improving. Impulse control is impaired. Vitals/I&O/Wt Last Vital Signs Temp 99.3 F 04/16/20 22:00 Pulse 110 H 04/16/20 22:03 Resp 18 04/16/20 22:00 BP 93/45 04/16/20 22:00 Pulse Ox 92 04/16/20 22:03 Physical Exam Urinary Catheter Management^: Barba: Cath Placed During This Visit: yes, but has since been removed by the nurse Reason for Continuing Indwelling Catheter: Acute Urinary Retention or Obstruction Urinary Catheter Date of Insertion: 04/10/20 Urinary Catheter Time of Insertion: 22:00 Date Urinary Catheter Removed: 04/14/20 Time Urinary Catheter Discontinued: :25 Data NPU : 04/14/20 04:35 04/14/20 04:35 A&P Additional A&P Information (1) Drug overdose: (2) Suicidal overdose: (3) Posttraumatic stress disorder: (4) Alcohol use disorder: (5) Major depressive disorder: (6) HIV (human immunodeficiency virus infection): This is a 59-year-old white male well-known to this policy writer typist with significant history of alcohol use disorder severe with reports of recent stent in a rehab followed by some weeks of sobriety but he has returned to drinking and was admitted to the ICU secondary to a intentional overdose. He is on a 96-hour hold and will need to be evaluated in the neuropsychiatric unit. 1. Continue current medication. We will again explore the Antabuse. 2. Continue on one-to-one in the NPU secondary to his nasal cannula and continuous oxygen. 3. encourage individual, group and milieu therapy. 4. Encourage sober living treatment after discharge at the highest level of care to which she is willing to commit. If he did in fact do a 30-day program that we need to increase it to a 90-day program or 1 year. Involuntary Hold Information 96 Hour Hold: 96 Hour Involuntary Admission: Yes 96 Hour Hold Ending Date: 04/16/20 96 Hour Hold Ending Time: 00:01 Attestations NPU Medical Necessity Statement*: Inpatient hospitalization is medically necessary and the clinically appropriate intervention at the time. We will monitor medications and make changes as indicated. Likely length of stay 1-3 days. Coding Level of Care Code Acute Rn Mds Coordinator for Osmin Ordonez
[2020-04-16 15:21] VITALS: PULSE 82; RESP 18; O2SAT 96
[2020-04-16] MEDS: gabapentin 300 mg Capsule 600 MG PO (21:19)
[2020-04-16] MEDS: OLANZapine 5 mg ODT PO (21:19)
[2020-04-16] MEDS: hyDROXYzine 25 mg Capsule 50 MG PO (21:19)
[2020-04-16] MEDS: mirtazapine 15 mg Tablet PO (21:19)
--- NOTE | 2020-04-16 21:21 | PC.NURSE ---
PRN VISTARIL & ZYPREXA ZYDIS ADMINISTERED ZYPREXA ZYDIS 5MG SUBLINGUAL AND VISTARIL 50MG PO FOR INCREASING ANXIETY AND AGITATION. WILL MONITOR FOR MEDICATION EFFECTIVENESS.
[2020-04-16 22:00] VITALS: BP 93/45; PULSE 112; PULSE 86; RESP 18; TEMP 37.4; O2SAT 90; O2SAT 94
[2020-04-16] MEDS: albuterol 8 gm MDI 2 PUFF INHALATION (22:00)
[2020-04-16 22:03] VITALS: PULSE 110; O2SAT 92
[2020-04-17 06:00] VITALS: BP 98/61; PULSE 93; RESP 19; TEMP 36.8; O2SAT 91
[2020-04-17] MEDS: apixaban 5 mg Tablet PO ×2 (08:47→17:05)
[2020-04-17] MEDS: nicotine 14 mg Patch 1 PATCH TRANSDERMA (08:47)
[2020-04-17] MEDS: folic acid 1 mg Tablet PO (08:47)
[2020-04-17] MEDS: pantoprazole DR 40 mg Tablet PO ×2 (08:47→17:05)
[2020-04-17] MEDS: dilTIAZem ER (24HR) 240 mg Capsule PO (08:47)
[2020-04-17] MEDS: multivitamin therapeutic Tablet 1 TAB PO (08:47)
[2020-04-17] MEDS: thiamine 100 mg Tablet PO (08:48)
--- NOTE | 2020-04-17 11:12 | PM.NPN ---
Subjective NPU Subjective: Interval history: Flakito presents today continuing to report an absence of lethality and desire to continue to work on his recovery. 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 We had discussed him being discharged by Sunday based on his mental status. I discussed the fact that I would be much more inclined to discharge home early tomorrow than today. Mental Status Exam MSE Comments: This is a well-nourished , white male, with nasal cannula in, with hospital scrubs on and adequate, grooming, and eye contact. No abnormal movements, except for mild psychomotor retardation. Cooperative with exam in no acute distress. Speech was decreased rate and normal volume. Mood described as better; affect congruent. Thought process, organized. Thought content: patient denied any suicidal or homicidal ideation, there were no delusions reported or noted, patient denied any auditory or visual hallucinations. Attention, concentration, and memory appear intact but none were formally tested. He is alert and oriented times three. Insight and judgment are improving. Impulse control is impaired. Vitals/I&O/Wt Last Vital Signs Temp 98.2 F 04/17/20 06:00 Pulse 93 04/17/20 06:00 Resp 19 H 04/17/20 06:00 BP 98/61 04/17/20 06:00 Pulse Ox 91 04/17/20 06:00 Weight last 48 hrs Weight 74.843 kg Physical Exam Urinary Catheter Management^: Barba: Cath Placed During This Visit: yes, but has since been removed by the nurse Reason for Continuing Indwelling Catheter: Acute Urinary Retention or Obstruction Urinary Catheter Date of Insertion: 04/10/20 Urinary Catheter Time of Insertion: 22:00 Date Urinary Catheter Removed: 04/14/20 Time Urinary Catheter Discontinued: 09:25 Data NPU : 04/14/20 04:35 04/14/20 04:35 A&P Additional A&P Information (1) Drug overdose: (2) Suicidal overdose: (3) Posttraumatic stress disorder: (4) Alcohol use disorder: (5) Major depressive disorder: (6) HIV (human immunodeficiency virus infection): This is a 59-year-old white male 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 He is on a 96-hour hold and will need to be evaluated in the neuropsychiatric unit. 1. Continue current medication. We will again explore the Antabuse. 2. Continue on one-to-one in the NPU secondary to his nasal cannula and continuous oxygen. 3. encourage individual, group and milieu therapy. 4. Encourage sober living treatment after discharge at the highest level of care to which she is willing to commit. If he did in fact do a 30-day program that we need to increase it to a 90-day program or 1 year. Involuntary Hold Information 96 Hour Hold: 96 Hour Involuntary Admission: Yes 96 Hour Hold Ending Date: 04/16/20 96 Hour Hold Ending Time: 00:01 Attestations NPU Medical Necessity Statement*: Inpatient hospitalization is medically necessary and the clinically appropriate intervention at the time. We will monitor medications and make changes as indicated. Likely length of stay 1-2 days. Coding Level of Care Code Acute Sugar Mixer for Osmin Ordonez
[2020-04-17 14:00] VITALS: BP 101/68; PULSE 89; RESP 17; TEMP 36.8
[2020-04-17] MEDS: mirtazapine 15 mg Tablet PO (20:42)
[2020-04-17] MEDS: trazodone 50 mg Tablet PO (20:42)
[2020-04-17] MEDS: gabapentin 300 mg Capsule 600 MG PO (20:42)
[2020-04-17] MEDS: hyDROXYzine 25 mg Capsule 50 MG PO (20:42)
--- NOTE | 2020-04-17 20:42 | PC.NURSE ---
PRN TRAZODONE & VISTARIL PT REQUESTING SLEEP AID AND ANXIETY MEDICATION, ADMINISTERED TRAZODONE 50 MG PO & VISTARIL 50MG PO. WILL MONITOR FOR MEDICATION EFFECTIVENESS.
[2020-04-17] MEDS: OLANZapine 5 mg ODT PO (21:47)
[2020-04-17 21:52] VITALS: BP 104/66; PULSE 87; RESP 19; TEMP 36.5; O2SAT 97
--- NOTE | 2020-04-18 01:09 | PC.NURSE ---
PRN ZYPREXA ADMINISTERED ZYPREXA ZYDIS 5MG SUBLINGUAL FOR PT C/O OF INCREASING AGITATION. WILL CONTINUE TO MONITOR.
[2020-04-18] MEDS: OLANZapine 5 mg ODT PO (03:20)
[2020-04-18 05:26] VITALS: BP 105/71; PULSE 93; RESP 18; TEMP 36.4; O2SAT 95
--- NOTE | 2020-04-18 07:18 | PM.NDC ---
Diagnoses at Discharge Discharge Diagnosis (1) Suicidal overdose: Status: Resolved (2) Endotracheally intubated: Status: Resolved (3) Respiratory failure requiring intubation: Status: Resolved (4) Alcohol abuse: Status: Acute Reason for Visit Reason for Visit: SI Brief History: History of Present Illness Flakito Almanzar is a 59 year old male who presented to the emergency room with the following report: Mr. Almanzar is a 59-year-old male who arrives via EMS after receiving sedation for agitation and combativeness. He received ketamine IM to control his aggression. Information is second and wharf hand but the best I can ascertain the patient was found to have possibly overdosed. He admitted to police he took 30 trazodone but upon inspection of the room he was in multiple medicine bottles were empty. It is undetermined what the patient took or how much. No further history can be obtained. He was admitted to the ICU for definitive treatment of those issues. A psychiatric consult was obtained to determine whether he was safe for discharge. He is known to this public relations writer through multiple previous admissions and excerpt of the last admission is included below for context. He was very resistant as a historian as we discussed the circumstances that brings him back here. He reports that he did go to a rehab like he was supposed to after our last contact and stayed there for 30 days. He reports that he went home and stop talking after that. was home for about 30 days and then reportedly inexplicably he began to drink and reports that he has drank 4 times prior to coming here intoxicated. He did not reveal with this public relations writer that attempt. And only endorsed that he wanted to go home. We discussed the fact that he was on a 96-hour hold and he essentially stopped talking. We discussed the fact that given the emergency room report he would at least need to be evaluated in the neuropsychiatric unit. Per his last IP [facility] eval: History of Present Illness Flakito Almanzar is a 59 year old male who presented to the emergency room on 01-19-20 and was brought in with his Meter Engineer. This was a month after his previous hospitalization to the ICU for alcohol use, where he refused rehabilitation. He reportedly had been drinking a 24 pack of beer plus hard liquor everyday, for months, and he had reportedly threatened suicide several times. He was admitted to the ICU for definitive treatment of those issues. After two days in the ICU, he left the hospital against medical advise, and he returned on 01-20-20 late at night, and it had been identified that he had just left AMA; he was quite intoxicated and was in respiratory distress, only citing at 80% on 6 liters of oxygen and unable to give a history because of his intoxication and respiratory distress. So he was once admitted to the ICU for definitive treatment for his withdrawal and respiratory distress. Once he was medically cleared from the ICU, he was transferred to the neuropsychiatric unit for definitive treatment of his alcohol use disorder, depression, and suicidality. He presents today still resistant to the idea of inpatient rehabilitation. He was open to the idea of the utilization of Disulfiram / Antabuse after discussing the risks, benefits, and alternatives, but is resistant to the idea of rehab. We discussed the fact that his mom was planning on possibly challenging him in court to force him to go to an inpatient detox, against his will, which he was very upset about. We had a long discussion about how, at this point, his decision making is so flawed in relation to his alcohol that everyone treating him has grave concerns about which time we hear about him that is going to be the last time, due to how out of control his drinking is in relation to his overall medical issues. Ultimately, he seemed accepting that there was a high likelihood that we would support him being sent to rehab on a forced court order. We reviewed his last hospitalization notes, and he agreed that there had been no substantive changes and it represented his psycho-social history appropriately. Per his last [facility] eval 12/15/19: History of Present Illness Flakito Almanzar is a 59 year old male who presented to the emergency room intoxicated with a 96-hour hold affidavit stating he threatened to kill himself. He endorsed drinking heavily due to voices in his head. He was admitted on a 96-hour hold to the ICU for definitive treatment of his alcohol withdrawal and a psychiatric consult was initiated. Flakito was found to be cogent at the time of the interview reporting that he had gone to a rehab as planned but that he left after a few days secondary to being the oldest person there. This public relations writer challenged that is a real reason to leave the rehab and he showed some sense of humor. He then very quickly started talking about discharge and ending the 96-hour hold what he thought was unfair. I explained that first of all he is not medically cleared and he is in an ICU. We discussed the fact that it is our assessment that him going to a rehab for 30, 60, 90, 180 days presents on the best chance of maintaining his sobriety. He claims that after he left the rehab that he was sober for weeks but based on his history it is unclear that that is unlikely reality. We reviewed his most recent evaluation here and he denies any substance of changes in his history so an excerpt was included below. Per last [facility] eval: History of Present Illness Flakito Almanzar is a 59 year old male who presented to the emergency room intoxicated again. There have been a call from his mother the day before that he had been drinking again and talking about admission. Reportedly he has not been drinking for that long. In the past several hospitalizations he has said he would do inpatient r only to ehab retract that at discharge and then either not go to outpatient rehab or go to outpatient rehab and then slip-up. We have advised him the last couple of times that inpatient rehab is really the only vehicle through which we see success for him. He presents today reporting that he is ready to go to inpatient rehab. He denied lethality he endorsed some depression but reported that he just cannot seem to stay sober and he acknowledges that he needs to go to inpatient services to have a chance for success. His last [facility] eval is included below. We reviewed that he denied any changes to his psychosocial situation. He still lives along he still has his mom and his communications intern as his significant supports. His communications intern was here when I arrived. Per last [facility] eval: HPI NPU History of Present Illness Flakito Almanzar is a 59 year old male who presents today as he has multiple times recently intoxicated and endorsing depression. His mother called and reported that he had gone to the outpatient rehab 3 times and then never returned. He spent the last week getting drunk with an individual that he had agreed he would avoid during this critical. When he is so vulnerable. She reported that he threatened to kill his stepfather while in an intoxicated state. He was very resistant to the initial interview though we reviewed his previous psychosocial information that can be seen below. We discussed his continued presentation with resistance for inpatient rehab followed by discharge to some outpatient services and generally return to drinking within a week to 2 weeks if not sooner. We discussed the reality of the situation and the need for him to get 30/60/90 days sobriety to allow his mind to function and make decisions that are in his best interest. Especially given his other medical comorbidities as we discussed in his last visit the impact of his drinking on his already taxed immune system. We discussed the risks benefits and alternatives of different interventions and he understood and agreed to proceed with us finding him an inpatient rehab bed. D/C summary including recent pertinent psychosocial information: Discharge Diagnosis (1) Alcoholic intoxication: Status: Resolved Qualifiers: Complication of substance-induced condition: with unspecified complication Qualified Code(s): F10.929 - Alcohol use, unspecified with intoxication, unspecified (2) Depression with suicidal ideation: Status: Resolved Reason for Visit Reason for Visit: Reason For Visit: ETOH INTOX;SI 96 HOUR HOLD Brief History: Psych Consult HPI History of Present Illness Flakito Almanzar is a 59 year old male known to this public relations writer the previous interactions as he has been to the neuropsych unit 3 times since last March and this is the second ICU consult by this public relations writer on Flakito since then. He has generally come in with suicidal thinking, depression and alcohol use/intoxication, been managed appropriately in the ICU, gone to the neuropsych unit for mental health treatment and been discharged without major incident. Unfortunately multiple times he has reported a plan to go to inpatient rehabilitation, and that has never actually happened. At some point prior to discharge he gives some intellectualized response as to why it's impossible or not the best for him that he go to the inpatient rehabilitation. Those things include commitments to the charge, commitments to school in his academic pursuits, as well as personal desires not to go. Today we discussed his presentation and concerns about lethality which he downplayed. He reported that he loves himself too much to commit suicide, that he knows we'll be sending us guide the committed suicide, as well as other reasons. He then went on to say that he would not be seen by this public relations writer again, he was discharged. It seemed peculiar way that he said it. He tried to say that he would not be coming back here, because he wasn't going to drink, but it did not seem that was what he meant. He tried to say that he had plans to go to rehabilitation in the morning and that this had been prearranged. That has mother was aware and that he had to leave tonight so that he can get some things done that only he could do prior to going for 30 days. His demeanor raised enough concern that I discussed with Dr. Dunbar that we needed to confirm with his mother that this was a known plan otherwise it raises concerns that he was trying to discharge to possibly harm himself. Otherwise he reported that there have been no changes in his psychosocial conditions. He reports that his history and situation had not changed and was consistent with my previous interview in March which can be seen below. Per last consult: History of Present Illness Date of Service: Apr 04, 2019 Reason for Consultation: Intoxication with reported aggressive threats Consulting Service and Doctor: Niko Bang M.D. Psychiatry. HPI: Flakito presents today somewhat lethargic having had a significant amount of Ativan to combat his alcohol withdrawal reporting that he's been having a fairly tough time recently. He reports that alcohol use has changed to an alarming level the last year and reports that the issue surrounds dealing with his homosexuality and the fact that he feels unworthy of guys love given his of homosexuality. He denies having any significant mental health treatment or hospitalizations or any problems and reports that he grew up in a fairly sabianism family and reports that about a year ago he began to really struggle with his known homosexuality to himself but reports that he began living a clearly homosexual life which she is struggle with from a spiritual standpoint. Records show confusing contradictions as he has had the diagnosis of HIV for some time and is unclear how that occurred however this is how he reports the story. He reports that he has been drinking about 4 pints of alcohol a day and reports that that has been going on for about a year. He reports he is probably only had a day here and there that he hasn't had a drink in this period of time. He also identifies that about 2 weeks ago he had a 1 or 2 day cessation of drinking where and he had a withdrawal seizure. He had reached out to [facility] or this may have occurred during his emergency room stent however there is reportedly a bed available for him but we discussed the risks benefits and alternatives of home taking that bed with an understanding that he needs to be through the detox aspect of the situation prior to going to [facility]. His blood alcohol was 400 at about noon yesterday. He had gone to the emergency room and then left and apparently when he left the went home and had another pint of alcohol and was found unconscious and brought back to the emergency room which is how he got into the ICU. He reports a plan and agreement to work with the treatment team and psychiatric services to try to get him in a condition that it is safe for him to go to [facility] on Sunday at 8 AM when they would pick him up here at [facility]. Active Meds: Current Hospital Medications: Medications (Trade) Dose Ordered Sig/Stanford Route PRN Reason Start Time Stop Time Status Last Admin Dose Admin Potassium Chloride/Sodium Chloride 1,000 ml @ 125 mls/hr CONT IV 04/03/19 15:15 Hold 04/04/19 09:12 Thiamine Mononitrate (Thiamine Tab) 100 mg DAILY PO 04/04/19 10:00 04/04/19 09:10 Multivitamins Therapeutic (Therapeutic Multivitamin) 1 ea DAILY PO 04/04/19 10:00 04/04/19 09:10 Folic Acid/ Cyanocobalamin/ pyridoxin (Folic Acid Tab) 1 mg DAILY PO 04/04/19 10:00 04/04/19 09:10 Lorazepam (Ativan Inj) 2 mg PRN PRN IV FOR WITHDRAWAL 04/03/19 15:15 04/04/19 13:00 Lorazepam (Ativan Inj) 2 mg PRN PRN IM for Withdrawal 04/03/19 15:15 Lorazepam (Ativan Tab) 2 mg PRN PRN PO Withdrawal 04/03/19 15:15 04/04/19 16:07 Acetaminophen (Tylenol Tab) 650 mg Q4H PRN PO FOR MILD PAIN 04/03/19 15:15 Ondansetron HCl (Zofran Inj) 4 mg Q6H PRN IV FOR NAUSEA AND VOMITING 04/03/19 15:15 Pantoprazole Sodium (Protonix Tab) 40 mg DAILY PO 04/04/19 10:00 04/04/19 09:10 Enoxaparin Sodium (Lovenox) 40 mg Q24H SUBCUT 04/03/19 15:15 04/04/19 16:07 Nicotine (Nicoderm Patch) 21 mg DAILY PRN TD 04/04/19 04:30 04/04/19 05:05 Dexmedetomidine HCl 400 mcg/ Sodium Chloride 104 ml @ 0 mls/hr CONT IV 04/04/19 10:00 04/04/19 10:18 Haloperidol Lactate (Haldol Inj) 5 mg Q3H PRN IM FOR AGITATION 04/04/19 13:30 Home Meds: Home Medications: Active Reported [Opsumit] 1 Tab PO DAILY Symbicort 80-4.5 Mcg Inhaler (Budesonide/Formoterol Fumarate) 10.2 Gm Inhaler 2 Puff INH BID Iron Sulfate 325MG Tab (Ferrous Sulfate) 325 Mg Tabec 325 Mg PO BREAKFAST Diflucan Tab (Fluconazole) 100 Mg Tablet 100 Mg PO DAILY Wellbutrin XL (Bupropion HCl) 150 Mg Tab.sr.24h 150 Mg PO DAILY Trazodone Tab (Trazodone HCl) 150 Mg Tablet 300 Mg PO BEDTIME Klor Con Tab (Potassium Chloride) 20 Meq Tab.prt.sr 20 Meq PO TID Protonix Tab (Pantoprazole Sodium) 40 Mg Tabec 40 Mg PO DAILY [Descovy] 1 Tab PO DAILY Isentress Chew Tab (Raltegravir) 100 Mg Tab.chew 400 Mg PO BID Xanax Tab (Alprazolam) 0.25 Mg Tab 0.25 Mg PO TID Oxycodone IR (Oxycodone HCl) 30 Mg Tab 30 Mg PO QID PRN Duragesic Patch (Fentanyl) 50 Mcg Patch 50 Mcg TD Q72H Prednisone Tab (Prednisone) 10 Mg Tablet 20 Mg PO DAILY Narcan (Naloxone HCl) 4 Mg/Actuation Ray 4 Mg NASAL ONCE PRN 1 Days Cartia XT (Diltiazem HCl) 240 Mg Cap.sr.24h 240 Mg PO DAILY Pradaxa Cap (Dabigatran) 150 Mg Capsule 150 Mg PO BID Voltaren Gel (Diclofenac Gel) 100 Gm Gel..gm. 1 Applic TOP QID PRN Past Medical History Past Medical History: Please see ED and ICU notes for additional history. Other Family Medical History: He denies significant mental health, addiction or other issues in his family. He denies any history of suicide attempts or completions in his family. Other Past Social History: Developmental history: Flakito reports being the product of a normal . He endorses that he learn to walk and talk and met his development milestones on time. He denied any speech therapy, learning support, emotional support special education classes. Psychosocial history: He reports being the only child of his parents and that they were together when he was born. He denies any other siblings through their union with any other partners and reports that they never . He reports that his childhood was good but he was raised in a fairly sabianism family went to yarsanism on Sundays and Wednesdays at least. He reports he graduated from high school. He endorses being homosexual and his long-term relationship has not been very long. He denies ever being , never had any children, never been in the he endorses being a Sikh. He reports his longest tenure in any job was about 7 years. He reports he lives in a house alone. He denies any significant legal history. Meds NPU Home Medications Medication Instructions Recorded Confirmed Last Taken Type potassium chloride 20 mEq 20 meq PO BID 07/21/19 04/11/20 12/10/19 History tablet,extended release(part/cryst) apixaban [Eliquis] 5 mg PO BID #30 tab 01/27/20 04/11/20 Unknown Rx budesonide 0.5 mg INHALATION BID.RESPIRATORY 01/27/20 04/11/20 Unknown Rx #60 ml chlordiazepoxide HCl 10 mg PO Q12H #14 cap 01/27/20 04/11/20 Unknown Rx chlordiazepoxide HCl 25 mg PO Q12H #15 cap 01/27/20 04/11/20 Unknown Rx dolutegravir-lamivudine [Dovato] 1 tab PO DAILY #30 cap 01/27/20 04/11/20 Unknown Rx fluconazole 100 mg PO DAILY #30 tab 01/27/20 04/11/20 Unknown Rx folic acid 1 mg PO DAILY #30 tab 01/27/20 04/11/20 Unknown Rx gabapentin 600 mg PO BEDTIME #60 cap 01/27/20 04/11/20 Unknown Rx ipratropium-albuterol 3 ml INHALATION Q6H.RESPIRATORY 01/27/20 04/11/20 Unknown Rx #240 ml macitentan [Opsumit] 10 mg PO DAILY #30 cap 01/27/20 04/11/20 Unknown Rx mirtazapine 15 mg PO BEDTIME #30 tab 01/27/20 04/11/20 Unknown Rx multivitamin with folic acid 1 tab PO DAILY #30 tab 01/27/20 04/11/20 Unknown Rx [Thera] pantoprazole 40 mg PO QAM #30 tab 01/27/20 04/11/20 Unknown Rx sulfamethoxazole-trimethoprim 1 tab PO MoWeFr@0800 #15 tab 01/27/20 04/11/20 Unknown Rx trazodone 300 mg PO BEDTIME #60 tab 01/27/20 04/11/20 Unknown Rx diltiazem HCl 240 mg capsule,24 240 mg PO QAM #90 cap 02/13/20 04/11/20 Unknown Rx hr,extended release albuterol sulfate [Ventolin HFA] See Rx Instructions .ROUTE .COMPLEX 04/11/20 04/11/20 Unknown History alprazolam See Rx Instructions .ROUTE .COMPLEX 04/11/20 04/11/20 Unknown History disulfiram [Antabuse] See Rx Instructions .ROUTE .COMPLEX 04/11/20 04/11/20 Unknown History dolutegravir-lamivudine [Dovato] See Rx Instructions .ROUTE .COMPLEX 04/11/20 04/11/20 Unknown History fentanyl See Rx Instructions .ROUTE .COMPLEX 04/11/20 04/11/20 Unknown History hydroxyzine HCl See Rx Instructions .ROUTE .COMPLEX 04/11/20 04/11/20 Unknown History sildenafil (pulm.hypertension) See Rx Instructions .ROUTE .COMPLEX 04/11/20 04/11/20 Unknown History testosterone See Rx Instructions .ROUTE .COMPLEX 04/11/20 04/11/20 Unknown History Allergies Allergy/AdvReac Type Severity Reaction Status Date / Time No Known Allergies Allergy Verified 09/01/19 08:52 PFSH NPU PFSH: Medical History (Updated 04/12/20 @ 13:11 by Kilo Pollard MD) Anorexia Atrial fibrillation Colon polyps COPD (chronic obstructive pulmonary disease) Severe COPD Diverticulitis / Diverticulosis GI bleed Was taken off Coumadin for a month in 2015 after a bleeding gastric ulcer, currently on Eliquis History of peptic ulcer disease HIV (human immunodeficiency virus infection) Hypogonadism Liver tumor Lymphoma 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 No evidence of recurrence, currently getting GRANITE POLISHER MACHINE prophylaxis with intrathecal methotrexate with prophylactic radiation to right testicle, CHOP treatment Meningitis Orchialgia Pulmonary embolism DVT of right leg, 2009 Pulmonary hypertension After PE Surgical History (Updated 04/12/20 @ 13:13 by Kilo Pollard MD) H/O colonoscopy 2001 -diverticulosis, colon polyps / 2005 -diverticulosis, small telangiectasia / 01/2016 -diverticulosis with intrinsic stenosis and sigmoid H/O esophagogastroduodenoscopy 2005 -reflux esophagitis, superficial gastric erosions with hemorrhagic gastritis, duodenitis /2008 -reflux esophagitis, gastritis, small chronic gastric ulcer H/O hemorrhoidectomy History of orchiectomy, unilateral L -- diffuse large B-cell lymphoma Family History Other No pertinent family history Social History (Updated 04/12/20 @ 13:07 by Kilo Pollard MD) Smoking and tobacco status: current every day smoker cigarettes Packs smoked per day: 2 Alcohol intake: current Household members: family Housing: House Hospital Course Hospital Course The patient presented to the emergency room after receiving sedation by EMS for agitation and combativeness. He received Ketamine IM to control his aggression. They got information second and wharf hand, but the patient was found to have possibly overdosed. He admitted to police that he took 30 Trazodone, and inspection of the room just found empty bottles. So it is unclear what was taken. No further history was obtained, at that point. He was admitted to the ICU for definitive treatment of those issues. Once he showed improvement, he was transferred to the medical surgical unit for continued care. During the ICU stay, a psychiatric evaluation/consult was requested to identify his safety for discharge. During that assessment, he made comments that continued the concern about his safety upon discharge, so he was ultimately transferred to the neuropsychiatric unit for definitive treatment of a possible drug overdose. On the unit, he fairly quickly acclimated to the individual, group, and milieu therapies provided. His home medications were continued and he was able to have reasonable conversations about the situation and the issues leading to him drinking again, after a reported thirty days in rehab and thirty days sober at home. We attempted to assist him in recovery management and exploring ways to continue to build on his recovery work. Ultimately, he agreed to sign in to the hospital, when his 96-hour hold resolved, and with a few additional days of observation it was deemed he was safe for discharge. During the hospitalization, the patient had routine laboratory studies which were within normal limits, except for a few outliers. Additionally, the patient had a general medical evaluation which was within normal limits and revealed no new acute processes, except for those identified and treated in the ICU and on the med-surg unit. Discharge Summary At the time of discharge the patient denied all lethality, was absent psychosis, and mood and anxiety were well managed. The patient endorsed a plan to avoid all drugs of abuse and to follow-up with outpatient services, as recommended. The patient was evaluated and deemed to be absent credible lethality, and had achieved the maximum benefit from an inpatient hospitalization, and so he was discharged. Involuntary Hold Information 96 Hour Hold: 96 Hour Involuntary Admission: Yes 96 Hour Hold Ending Date: 04/16/20 96 Hour Hold Ending Time: 00:01 Mental Status Exam MSE Comments: This is a well-nourished , white male, with nasal cannula in, with hospital scrubs on and adequate, grooming, and eye contact. No abnormal movements, except for mild psychomotor retardation. Cooperative with exam in no acute distress. Speech was slightly decreased rate and normal volume. Mood described as pretty good; affect congruent. Thought process, organized. Thought content: patient denied any suicidal or homicidal ideation, there were no delusions reported or noted, patient denied any auditory or visual hallucinations. Attention, concentration, and memory appear intact but none were formally tested. He is alert and oriented times three. Insight and judgment are improving. Impulse control is limited, but improving Physical Exam Urinary Catheter Management^: Barba: Cath Placed During This Visit: yes, but has since been removed by the nurse Reason for Continuing Indwelling Catheter: Acute Urinary Retention or Obstruction Urinary Catheter Date of Insertion: 04/10/20 Urinary Catheter Time of Insertion: 22:00 Date Urinary Catheter Removed: 04/14/20 Time Urinary Catheter Discontinued: 09:25 Discharge Data Data Completed and Pending: Completed Studies During Hospitalization Category Date Time Status CT cervical spin wo con* 40957 Urge nt Cat Scan 04/10/20 21:[address] head wo con* 7 0450 Stat Cat Scan 04/10/20 21:19 Completed XR chest 1V zane ble 51536 Stat Exams 04/10/20 20:52 Completed Vitals: Last Vital Signs Temp 97.6 F 04/18/20 05:26 Pulse 93 04/18/20 05:26 Resp 18 04/18/20 05:26 BP 105/71 04/18/20 05:26 Pulse Ox 95 04/18/20 05:26 Discharge Plan Discharge Patient Disposition: Home Condition: Stable Prescriptions: Continued potassium chloride [Klor-Con M20] 20 mEq tablet,ER particles/crystals 20 meq PO BID RF: 0 diltiazem HCl 240 mg capsule,extended release 24 hr 240 mg PO QAM Qty: 90 RF: 3 fluconazole 100 mg Tablet 100 mg PO DAILY Qty: 30 RF: 0 ipratropium-albuterol 0.5 mg-3 mg(2.5 mg base)/3 mL Solution For Nebulization 3 ml inhalation Q6H.RESPIRATORY Qty: 240 RF: 2 sulfamethoxazole-trimethoprim 800-160 mg Tablet 1 tab PO MoWeFr@0800 Qty: 15 RF: 3 chlordiazepoxide HCl 25 mg Capsule 25 mg PO Q12H Qty: 15 RF: 0 pantoprazole 40 mg Tablet,Delayed Release (Dr/Ec) 40 mg PO QAM Qty: 30 RF: 3 trazodone 150 mg Tablet 300 mg PO BEDTIME Qty: 60 RF: 2 gabapentin 300 mg Capsule 600 mg PO BEDTIME Qty: 60 RF: 2 budesonide 0.5 mg/2 mL Suspension For Nebulization 0.5 mg inhalation BID.RESPIRATORY Qty: 60 RF: 2 folic acid 1 mg Tablet 1 mg PO DAILY Qty: 30 RF: 0 mirtazapine 15 mg Tablet 15 mg PO BEDTIME Qty: 30 RF: 2 Thera 400 mcg Tablet 1 tab PO DAILY Qty: 30 RF: 0 Eliquis 5 mg Tablet 5 mg PO BID Qty: 30 RF: 2 Dolutegravir-La 1 tab PO DAILY Qty: 30 RF: 2 Macitentan [Ops 10 mg PO DAILY Qty: 30 RF: 2 chlordiazepoxide HCl 10 mg capsule 10 mg PO Q12H Qty: 14 RF: 0 fentanyl 50 mcg/hr patch 72 hour See Rx Instructions .ROUTE .COMPLEX RF: 0 alprazolam 0.25 mg tablet See Rx Instructions .ROUTE .COMPLEX RF: 0 Ventolin HFA 90 mcg/actuation HFA aerosol inhaler See Rx Instructions .ROUTE .COMPLEX RF: 0 hydroxyzine HCl 10 mg tablet See Rx Instructions .ROUTE .COMPLEX RF: 0 disulfiram [Antabuse] 500 mg tablet See Rx Instructions .ROUTE .COMPLEX RF: 0 sildenafil (pulm.hypertension) 20 mg tablet See Rx Instructions .ROUTE .COMPLEX RF: 0 testosterone 20.25 mg/1.25 gram (1.62 %) gel in metered-dose pump See Rx Instructions .ROUTE .COMPLEX RF: 0 Dovato 50-300 mg tablet See Rx Instructions .ROUTE .COMPLEX RF: 0 Discharge Orders: Discharge Order (Routine); Ordered 04/18/20 Ordered By: Niko Bang Referrals: Rasheed Spivey MD [Primary Care Provider] - Discharge Diet: Regular Discharge Activity: Resume usual activity Discharge Date/Time: 04/18/20 07:57 Discharge Attestations NPU Time Spent in Discharge Care*: less than 30 min Specific Discharge Activities: Specific discharge activities: educating patient, documenting/other paperwork and evaluating patient/reviewing data Coding Level of Care Code Acute Account Service Associate for [facility] Fwd Diagnoses Suicidal overdose T50.902A Endotracheally intubated Z97.8 Respiratory failure requiring intubation J96.90 Alcohol abuse F10.10
[2020-04-18 07:20] VITALS: BP 105/71; PULSE 93; RESP 18; TEMP 36.4; O2SAT 95
== END 2020-04-18 07:57 | disposition home or self-care (01) | DRG 917 ==
LOC: ER 21:09 → ICU 22:38 → MEDSURG 04-13 13:41 → NP 04-14 14:52
PROVIDERS: Emergency Medicine; Internal Medicine; Student in an Organized Health Care Education/Training Program; Surgery; Admitting Provider Internal Medicine; PCP Family Medicine; Visit Provider Psychiatry & Neurology Psychiatry
DX: T43.212A Poisoning by selective serotonin and norepinephrine reuptake inhibitors, intentional self-harm, initial encounter (principal); J96.90 Respiratory failure, unspecified, unspecified whether with hypoxia or hypercapnia; B20 Human immunodeficiency virus [HIV] disease; I48.91 Unspecified atrial fibrillation; F43.10 Post-traumatic stress disorder, unspecified; F10.10 Alcohol abuse, uncomplicated; F32.9 Major depressive disorder, single episode, unspecified; Y92.009 Unspecified place in unspecified non-institutional (private) residence as the place of occurrence of the external cause; Z91.5 Personal history of self-harm; J44.9 Chronic obstructive pulmonary disease, unspecified; Z86.711 Personal history of pulmonary embolism; I27.20 Pulmonary hypertension, unspecified; F17.210 Nicotine dependence, cigarettes, uncomplicated; Z79.01 Long term (current) use of anticoagulants
CPT/HCPCS: 12345; 36415; 36600; 51702; 70450; 71045; 72125; 80053; 80069; 80156; 80164; 80178; 80185; 80306; 80307; 81003; 82550; 82803; 83605; 83735; 84443; 84484; 85025; 85610; 85730; 86677; 87491; 87591; 93005; 94002; 94003; 94640; 94660; 94799; 96375; 99285; C9113; J0330; J2060; J2250; J2704; J3010; J3411; J3490; J3535; J7030; J7799

== ENCOUNTER → 2020-04-30 10:50 | Outpatient (BNVA) | payer MEDICARE, MEDICAID, SELFPAY | PROVIDERS: PCP Family Medicine; Visit Provider Nurse Practitioner Family | DX: J06.9 Acute upper respiratory infection, unspecified (principal); Z20.828 Contact with and (suspected) exposure to other viral communicable diseases | CPT/HCPCS: 87635 ==

== ENCOUNTER 2020-06-29 08:43 | Emergency (ER) | payer MEDICARE, MEDICAID, SELFPAY ==
[2020-06-29 08:45] VITALS: BP 104/79; PULSE 109; RESP 20; TEMP 36.7; O2SAT 93; BMI 22.9
--- NOTE | 2020-06-29 08:53 | XR_ITS ---
WS: [id number] XR chest 1V portable [id number] REASON FOR EXAM: dyspnea FINDINGS: Since the previous examination of 04/10/2020, consolidative changes in the left lower lung have resolv ed however there are now consolidative and/or atelectatic changes involving the right lung. There is severe underlying interstitial and cystic lung change which has been confirmed by previous C T scan. No other interval change or new finding. XR/XR chest 1V portable [id number] IMPRESSION: Interval clearing of infiltrate and consolidation from left lung, infiltrative process now noted in the right lung of unknown chronicity due to the time inter almaz between the comparison examinations. This could represent acute/subacute pn eumonitis.
[2020-06-29 09:16] LABS: ABG PCO2 36.2 mmHg (35-45); ABG PH Result 7.52 (7.35-7.45); Arterial Blood Gas Hematocrit 43.5 % (42-52); Base Excess ABG 6.3 mmol/L (-2.0-2.0); Blood Gas Allen Test Pos; Blood Gas Operator Identificat MONRO; Blood Gas Sample Site Radial, left; Blood Gas Sample Type Arterial; HCO3 ABG 29.4 mmol/L (22-26); Oxygen Device NC; PO2 ABG 57.3 mmHg (80.0-100.0)
[2020-06-29 09:25] VITALS: O2SAT 93
--- NOTE | 2020-06-29 09:39 | ED_ITS ---
HPI - COVID General: Chief Complaint: COVID symptoms Stated Complaint: troubling eat, coughing, nausea Time Seen by Provider: 06/29/20 08:53 Triage information: Has fever, cough or shortness of breath . No known COVID + exposure last 14 days History of Present Illness: HPI Narrative: 60-year-old male presents emergency room with complaints of shortness of breath cough and diarrhea. This all began 2 days ago. He said a little bit of low-grade subjective fever as well. In addition that he has had myalgias. He is chronically on oxygen and is at his baseline requirement at this time. He denies chest or abdominal pain. Patient is at his baseline as far as productive cough goes. He has not had any purulent sputum just usual clear white sputum. MD complaint: has COVID symptoms Prior covid testing: no COVID 19 common symptoms: positive cough, productive cough (At his baseline.), fatigue, body aches, nasal congestion, nausea and diarrhea; negative loss of sense of smell and/or taste COVID 19 other sytmptoms: negative chest pain or requiring more oxygen Onset (ago): day(s) (2) Severity: mild Pertinent comorbid conditions: heart disease (Atrial fibrillation), COPD/respiratory disease, tobacco use/smoking and on home oxygen Treatment prior to arrival: oxygen (Usual oxygen requirement) COVID Results: SARS-CoV-2 Antigen (Rapid) Negative (Negative) 06/29/20 09:18 06/29/20 SARS-CoV-2 RNA (RT-PCR) Not detected (NOT DETECTED) 04/30/20 10:50 04/30/20 Nasal/Oral Coronavirus 2019 PCR Pending 06/29/20 11:31 06/29/20 Review of Systems Const: Reports: body aches and fatigue ENMT: Reports: nasal congestion Card: Denies: chest pain Resp: Reports: productive cough (At his baseline.) GI: Reports: nausea and diarrhea : Denies: flank pain, dysuria, urinary frequency or urinary urgency Skin/Breast: Denies: rash or pruritus PFS ED PFSH: Medical History Anorexia Atrial fibrillation Colon polyps COPD (chronic obstructive pulmonary disease) Severe COPD Depressive disorder Diverticulitis / Diverticulosis GI bleed Was taken off Coumadin for a month in 2016 after a bleeding gastric ulcer, currently on Eliquis History of peptic ulcer disease HIV (human immunodeficiency virus infection) Hypogonadism Liver tumor Lymphoma 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 No evidence of recurrence, currently getting MANAGER NEW PRODUCT prophylaxis with intrathecal methotrexate with prophylactic radiation to right testicle, CHOP treatment Meningitis Orchialgia Pulmonary embolism DVT of right leg, 2009 Pulmonary hypertension After PE Surgical History H/O colonoscopy 2001 -diverticulosis, colon polyps / 2005 -diverticulosis, small telangiectasia / 01/2016 -diverticulosis with intrinsic stenosis and sigmoid H/O esophagogastroduodenoscopy 2005 -reflux esophagitis, superficial gastric erosions with hemorrhagic gastritis, duodenitis /2008 -reflux esophagitis, gastritis, small chronic gastric ulcer H/O hemorrhoidectomy History of orchiectomy, unilateral L -- diffuse large B-cell lymphoma Family History Other No pertinent family history Social History Smoking and tobacco status: current every day smoker cigarettes Packs smoked per day: 2 Alcohol intake: current Household members: family Housing: House Physical Exam Const: COMMON NORMALS: no acute distress GENERAL APPEARANCE: cooperative and comfortable ORIENTATION/CONSCIOUSNESS: Yes awake, Yes oriented to person, Yes oriented to place and Yes oriented to time HENMT: COMMON NORMALS: normocephalic, atraumatic and hearing grossly normal bilaterally HEAD & SCALP: normocephalic and atraumatic Neck/C-Spine: COMMON NORMALS: no JVD Resp: AUSCULTATION: rhonchi, wheezes and diminished lung sounds Cardio: COMMON NORMALS: no JVD, regular rate, regular rhythm and No murmurs present (Cardio) RATE: regular rate RHYTHM: regular rhythm GI: COMMON NORMALS: Soft to palpation and No hepatosplenomegaly present AUSCULTATION: Yes normoactive bowel sounds PALPATION: Yes Soft to palpation, No Tenderness to palpation present (GI), No Guarding due to palpation present (GI) and Yes No hepatosplenomegaly present Extremity: COMMON NORMALS: normal to inspection, capillary refill normal, no clubbing, cyanosis or edema, no calf tenderness and no pedal edema Neuro: SENSORIUM/ORIENTATION: Yes oriented to person, Yes oriented to place and Yes oriented to time Skin: COMMON NORMALS: no rashes or lesions noted GENERAL SKIN EXAM: no rashes or lesions noted Course Vital Signs: Vital signs: Vital Signs Temperature 98.1 F 06/29/20 08:45 Pulse Rate 93 06/29/20 12:50 Respiratory Rate 11 L 06/29/20 12:50 Blood Pressure 105/78 06/29/20 12:50 Pulse Oximetry 97 06/29/20 12:50 MDM - COVID MDM Narrative: Medical decision making narrative: Patient maintaining on his usual baseline oxygen. He still has a sore throat and generally not feeling well reviewed his labs and CT findings with him we will go and discharge him home. I do suspect he has Covid has been advised to maintain quarantine. We will discharge him home on dexamethasone doxycycline aggressive use of beta agonist. F/U with PCP tomorrow Lab Data: Labs: Lab Results 06/29/20 06/29/20 06/29/20 Range/Units 09:02 09:16 09:16 WBC 7.2 (4.0-10.0) 10^3/ uL RBC 4.71 (4.1-5.3) 10^6/u L Hgb 14.8 (11.7-16.6) g/dL Hct 42.9 (42.0-52.0) % MCV 91.1 (80-94) fL MCH 31.4 (28.0-34.0) pg MCHC 34.5 (30.0-36.0) g/dL RDW 13.0 (12.1-15.1) % Plt Count 180 (130-400) 10^3/c mm MPV 9.0 (7.4-10.4) fL Neut % (Auto) 78.8 % Lymph % (Auto) 14.5 % [place] % (Auto) 5.1 % Eos % (Auto) 0.6 % Baso % (Auto) 0.6 % Neut # (Auto) 5.71 (1.8-7.7) 10^3/u L Lymph # (Auto) 1.1 (0.8-4.8) 10^3/u L [place] # (Auto) 0.4 (0.2-0.9) 10^3/u L Eos # (Auto) 0.0 (0.0-0.8) 10^3/u L Baso # (Auto) 0.0 (0.0-0.1) 10^3/u L Nucleated RBC % (a uto) 0 % Nucleated RBCs # 0.0 /100WBC D-Dimer 0.96 H (0-0.59) ug/mIFE U Specimen Type Arterial Sample Site Radial, left ABG pH 7.52 H (7.35-7.45) ABG pCO2 36.2 (35-45) mmHg ABG pO2 57.3 L (80.0-100.0) mmH g ABG HCO3 29.4 H (22-26) mmol/L ABG Base Excess 6.3 H (-2.0-2.0) mmol/ L Jean-Paul Test Pos Hematocrit 43.5 (42-52) % O2 Delivery Device Nc O2 Liters/Min 4.0 % FiO2 36.0 % Childcare Administrator ID [place]ro Sodium (136-145) mmol/L Potassium (3.5-5.1) mmol/L Chloride (98-107) mmol/L Carbon Dioxide (22-29) mmol/L Anion Gap (5-19) BUN (6-20) mg/dL Creatinine (0.7-1.2) mg/dL GFR Calculation (90-130) mL/min Glucose (65-115) mg/dL Calculated Osmolal ity (285-295) mOsm/k g Lactic Acid (0.5-2.2) mmol/L Calcium (8.5-10.5) mg/dL Total Bilirubin (0.15-1.2) mg/dL AST (0-40) U/L ALT (0-41) U/L Alkaline Phosphata se (40-130) IU/L C-Reactive Protein (0.0-4.9) mg/L Total Protein (6.6-8.7) g/dL Albumin (3.5-5.2) g/dL Globulin (1.3-4.6) g/dL SARS-CoV-2 Ag (Rap id) (Negative) 06/29/20 06/29/20 06/29/20 Range/Units 09:16 09:16 09:18 WBC (4.0-10.0) 10^3/ uL RBC (4.1-5.3) 10^6/u L Hgb (11.7-16.6) g/dL Hct (42.0-52.0) % MCV (80-94) fL MCH (28.0-34.0) pg MCHC (30.0-36.0) g/dL RDW (12.1-15.1) % Plt Count (130-400) 10^3/c mm MPV (7.4-10.4) fL Neut % (Auto) % Lymph % (Auto) % Highland % (Auto) % Eos % (Auto) % Baso % (Auto) % Neut # (Auto) (1.8-7.7) 10^3/u L Lymph # (Auto) (0.8-4.8) 10^3/u L Highland # (Auto) (0.2-0.9) 10^3/u L Eos # (Auto) (0.0-0.8) 10^3/u L Baso # (Auto) (0.0-0.1) 10^3/u L Nucleated RBC % (a uto) % Nucleated RBCs # /100WBC D-Dimer (0-0.59) ug/mIFE U Specimen Type Sample Site ABG pH (7.35-7.45) ABG pCO2 (35-45) mmHg ABG pO2 (80.0-100.0) mmH g ABG HCO3 (22-26) mmol/L ABG Base Excess (-2.0-2.0) mmol/ L Jean-Paul Test Hematocrit (42-52) % O2 Delivery Device O2 Liters/Min % FiO2 % Childcare Administrator ID Sodium 130 L (136-145) mmol/L Potassium 3.5 (3.5-5.1) mmol/L Chloride 89 L (98-107) mmol/L Carbon Dioxide 27 (22-29) mmol/L Anion Gap 17.5 (5-19) BUN 10 (6-20) mg/dL Creatinine 0.7 (0.7-1.2) mg/dL GFR Calculation 115.4 (90-130) mL/min Glucose 148 H (65-115) mg/dL Calculated Osmolal ity 272 L (285-295) mOsm/k g Lactic Acid 2.7 H (0.5-2.2) mmol/L Calcium 9.4 (8.5-10.5) mg/dL Total Bilirubin 0.5 (0.15-1.2) mg/dL AST 47 H (0-40) U/L ALT 26 (0-41) U/L Alkaline Phosphata se 109 (40-130) IU/L C-Reactive Protein 19.8 H (0.0-4.9) mg/L Total Protein 7.8 (6.6-8.7) g/dL Albumin 4.4 (3.5-5.2) g/dL Globulin 3.4 (1.3-4.6) g/dL SARS-CoV-2 Ag (Rap id) Negative (Negative) COVID Results: SARS-CoV-2 Antigen (Rapid) Negative (Negative) 06/29/20 09:18 12 SARS-CoV-2 RNA (RT-PCR) Not detected (NOT DETECTED) 04/30/20 10:50 04/30/20 Nasal/Oral Coronavirus 2019 PCR Pending 06/29/20 11:31 06/29/20 Discharge Plan Discharge Patient Disposition: Home Clinical Impression: Acute exacerbation of chronic obstructive pulmonary disease, Suspected 2019 novel coronavirus infection Condition: Stable Prescriptions: New doxycycline hyclate 100 mg capsule 100 mg PO BID 10 Days Qty: 20 RF: 0 dexamethasone 6 mg tablet 6 mg PO DAILY Qty: 7 RF: 0 albuterol sulfate 90 mcg/actuation HFA aerosol inhaler 2 inh INHALATION Q4H PRN (Reason: shortness of breath or wheezing) Qty: 18 RF: 0 No Action potassium chloride [Klor-Con M20] 20 mEq tablet,ER particles/crystals 20 meq PO BID@07,19 RF: 0 multivitamin Tablet 1 tab PO DAILY RF: 0 Opsumit 10 mg tablet 10 mg PO DAILY@07 RF: 0 fluconazole 100 mg tablet 100 mg PO DAILY@19 RF: 0 ipratropium-albuterol 0.5 mg-3 mg(2.5 mg base)/3 mL solution for nebulization 3 ml inhalation Q6H RF: 0 diltiazem HCl 240 mg capsule,extended release 24 hr 240 mg PO DAILY@07 RF: 0 sulfamethoxazole-trimethoprim 800-160 mg tablet 1 tab PO MOWEFR@07 RF: 0 pantoprazole 40 mg tablet,delayed release (DR/EC) 40 mg PO DAILY@07 RF: 0 trazodone 150 mg tablet 300 mg PO DAILY@20 RF: 0 budesonide 0.5 mg/2 mL suspension for nebulization 0.5 mg inhalation BID RF: 0 Eliquis 5 mg tablet 5 mg PO BID@, RF: 0 mirtazapine 15 mg Tablet 15 mg PO BEDTIME Qty: 30 RF: 2 alprazolam 0.25 mg tablet 0.25 mg PO TID PRN (Reason: Anxiety) RF: 0 albuterol sulfate [Ventolin HFA] 90 mcg/actuation HFA aerosol inhaler 1 - 2 puff inhalation Q4H PRN (Reason: Shortness Of Breath) RF: 0 hydroxyzine HCl 10 mg tablet 10 mg PO BID RF: 0 sildenafil (pulm.hypertension) 20 mg tablet See Rx Instructions .ROUTE .COMPLEX RF: 0 testosterone 20.25 mg/1.25 gram (1.62 %) gel in metered-dose pump See Rx Instructions .ROUTE .COMPLEX RF: 0 Dovato 50-300 mg tablet 1 tab PO DAILY@07 RF: 0 Discharge Orders: Discharge ED (Routine); Ordered 06/29/20 Ordered By: Glenn Dan Referrals: Rasheed Spivey MD [Primary Care Provider] - Activity Restrictions/Additional Instructions: Suspect that you do have COVID-19. Final testing is pending. Recommend that you remain self quarantine until then. Monitor oxygen sats with a monitor given to you today in the ER. If it consistently is below 90 recheck in the emergency room. You were prescribed antibiotics steroids and inhalers continue to use the inhalers as needed to relieve symptoms. 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
[2020-06-29 09:51] LABS: Lactic Sepsis W/Reflex 2.7 mmol/L (0.5-2.2)
[2020-06-29 09:52] LABS: Alanine Aminotransferase 26 U/L (0-41); Albumin Level 4.4 g/dL (3.5-5.2); Alkaline Phosphatase 109 IU/L (40-130); Anion Gap 17.5 (5-19); Aspartate Amino Transferase 47 U/L (0-40); Blood Urea Nitrogen 10 mg/dL (6-20); C Reactive Protein 19.8 mg/L (0.0-4.9); Calcium 9.4 mg/dL (8.5-10.5); Carbon Dioxide 27 mmol/L (22-29); Chloride 89 mmol/L (98-107); Globulin 3.4 g/dL (1.3-4.6); Glomerular Filtration Rate 115.4 mL/min (90-130); Glucose 148 mg/dL (65-115); Osmolality Calculated 272 mOsm/kg (285-295); Potassium 3.5 mmol/L (3.5-5.1); Sodium 130 mmol/L (136-145); Total Bilirubin 0.5 mg/dL (0.15-1.2); Total Protein 7.8 g/dL (6.6-8.7)
[2020-06-29 09:58] LABS: D Dimer 0.96 ug/mIFEU (0-0.59)
[2020-06-29 10:00] VITALS: BP 98/70; PULSE 95; RESP 12; O2SAT 93
[2020-06-29 10:21] LABS: SARS Covid-2 Antigen Negative (Negative)
--- NOTE | 2020-06-29 10:24 | CT_ITS ---
WS: [id number] CT CHEST ANGIOGRAPHY WITH REFORMATS HISTORY: dyspnea/suspected COVID TECHNIQUE: Contiguous axial images are obtained through the chest during arterial injection of intrav enous contrast. Images are reconstructed to evaluate the pulmonary arteries. MIP imaging also reviewe d. All CT scans at [facility] use at least one of these dose optimization techniques: aut omated exposure control; mA and/or kV adjustment per patient size (includes targeted exams where dose is matched to clinical indication); or iterative reconstruction. CONTRAST: Omnipaque 350; 95 mL IV. DLP: 614.81 mGy.cm COMPARISON: 01/20/2020 Very good opacification of the pulmonary arteries. No filling defects or pulmonary embolism. Pulmonar y artery is enlarged from pulmonary hypertension. Normal-sized thoracic aorta. There is severe centri lobular and paraseptal emphysema. Improved aeration as compared to the most recent CT of 01/20/2020. L ess scattered opacifications. Mild dependent changes persist at the lung bases. No CHF. Stable 5 mm L EFT lower lobe nodule on image 46 of series 3. There are numerous mediastinal and hilar lymph nodes. Most significant burden at the LEFT hilum with the largest lymph nodes measuring up to 1.7 cm. Lymph node burden has slightly increased in size. Zita ology is not certain. No adrenal mass. Extensive diverticular disease in the transverse colon without acute diverticulitis. Healed rib fractures in the lateral mid RIGHT thorax. CT/CT angio chest PE protcl [id number] IMPRESSION: 1. No pulmonary embolism. 2. Improved aeration with less pulmonary congestion and improving opacificatio n since 01/20/2020. 3. Marked pulmonary arterial hypertension. 4. Severe emphysema. 5. Increasing pulmonary mediastinal lymph node burden. Uncertain etiology. May be reactive but neoplastic etiology should be considered as there is continued slow progression.
[2020-06-29 10:29] LABS: Basophils % 0.6 %; Eosinophils % 0.6 %; Hematocrit 42.9 % (42.0-52.0); Hemoglobin 14.8 g/dL (11.7-16.6); Lymphocytes # 1.1 10^3/uL (0.8-4.8); Lymphocytes % 14.5 %; Mean Corpuscular HGB Conc 34.5 g/dL (30.0-36.0); Mean Corpuscular Hemoglobin 31.4 pg (28.0-34.0); Mean Corpuscular Volume 91.1 fL (80-94); Monocytes # 0.4 10^3/uL (0.2-0.9); Monocytes % 5.1 %; Neutrophils # 5.71 10^3/uL (1.8-7.7); Neutrophils % 78.8 %; Nucleated Red Blood Cells % 0 %; Platelet Count 180 10^3/cmm (130-400); Red Blood Count 4.71 10^6/uL (4.1-5.3); White Blood Count 7.2 10^3/uL (4.0-10.0)
[2020-06-29 11:00] VITALS: PULSE 92; RESP 15; O2SAT 94
[2020-06-29] MEDS: iohexol 350 mg/mL 100 mL Btl IV (11:03)
[2020-06-29 11:11] LABS: Reflex Lactate Order REFLEX LACTIC ORDERD
[2020-06-29] MEDS: sodium chloride 0.9% 1,000 ML 999 ML IV (11:35)
[2020-06-29 12:50] VITALS: BP 105/78; PULSE 93; RESP 11; O2SAT 97
--- NOTE | 2020-06-30 10:02 | DCPLANNER ---
volunteer manager had message to schedule a follow up appointment for patient with primary care. volunteer manager called patient to confirm who patient sees for primary care. Patient stated that he sees Dr. Morejon, [facility]. volunteer manager called and spoke with Lilia Chavez, she stated that she would give the patients information to one of the nurses for the nurse to call patient. volunteer manager told the clinic that the physician in the ER wanted patient to be seen today, waiting for COVID results. Clinic cannot see patient in the clinic until they have a negative test. volunteer manager asked about a tele health visit. Lilia will call case briefer back after nurse speaks with patient and let case briefer know about appointment for patient.
[2020-07-01 07:06] LABS: Coronavirus Lab Test PTC Negative
--- NOTE | 2020-07-01 08:52 | PC.NURSE ---
Pt called and notified of negative COVID results.
--- NOTE | 2020-07-21 13:04 | DCPLANNER ---
care center manager called Lilia Chavez, with oncology, was told that clinic has been in contact with patient and will schedule a follow up appointment as needed.
== END 2020-06-29 12:48 | disposition home or self-care (01) ==
PROVIDERS: Emergency Provider Family Medicine; PCP Family Medicine
DX: J44.1 Chronic obstructive pulmonary disease with (acute) exacerbation (principal); Z20.828 Contact with and (suspected) exposure to other viral communicable diseases; Z79.01 Long term (current) use of anticoagulants; I48.91 Unspecified atrial fibrillation; B20 Human immunodeficiency virus [HIV] disease; Z85.72 Personal history of non-Hodgkin lymphomas; F17.210 Nicotine dependence, cigarettes, uncomplicated
CPT/HCPCS: 12345; 36600; 71045; 71275; 80053; 82803; 83605; 85025; 85378; 86140; 87426; 87635; 96360; 99283; 99284; J7030; Q9967

== ENCOUNTER 2020-07-10 17:12 | Inpatient (IN) | payer MEDICARE, MEDICAID, SELFPAY ==
[2020-07-10] VITALS (7 sets, daily range): BP systolic 95–138; BP diastolic 55–83; PULSE 80–100; RESP 14–20; TEMP 36.6–36.7; O2SAT 88–96; BMI 29.8
[2020-07-10 18:10] LABS: Basophils % 0.4 %; Eosinophils # 0.2 10^3/uL (0.0-0.8); Eosinophils % 2.5 %; Hematocrit 43.2 % (42.0-52.0); Hemoglobin 14.1 g/dL (11.7-16.6); Lymphocytes # 2.1 10^3/uL (0.8-4.8); Lymphocytes % 29.3 %; Mean Corpuscular HGB Conc 32.6 g/dL (30.0-36.0); Mean Corpuscular Hemoglobin 31.3 pg (28.0-34.0); Mean Corpuscular Volume 95.8 fL (80-94); Mean Platelet Volume 8.5 fL (7.4-10.4); Monocytes # 0.7 10^3/uL (0.2-0.9); Monocytes % 9.7 %; Neutrophils # 4.17 10^3/uL (1.8-7.7); Neutrophils % 57.5 %; Nucleated Red Blood Cells % 0 %; Platelet Count 181 10^3/cmm (130-400); Red Blood Count 4.51 10^6/uL (4.1-5.3); Red Cell Distribution Width 13.3 % (12.1-15.1); White Blood Count 7.2 10^3/uL (4.0-10.0)
[2020-07-10] MEDS: ziprasidone 20 mg/mL SDV IM (18:17)
[2020-07-10 18:45] LABS: Alanine Aminotransferase 14 U/L (0-41); Albumin Level 3.6 g/dL (3.5-5.2); Alcohol Level 214 mg/dL (0-10); Alkaline Phosphatase 79 IU/L (40-130); Anion Gap 18.1 (5-19); Aspartate Amino Transferase 15 U/L (0-40); Blood Urea Nitrogen 7 mg/dL (6-20); Calcium 7.9 mg/dL (8.5-10.5); Carbon Dioxide 16 mmol/L (22-29); Chloride 100 mmol/L (98-107); Globulin 2.9 g/dL (1.3-4.6); Glomerular Filtration Rate 170.2 mL/min (90-130); Glucose 101 mg/dL (65-115); Osmolality Calculated 268 mOsm/kg (285-295); Potassium 4.1 mmol/L (3.5-5.1); Sodium 130 mmol/L (136-145); Thyroid Stimulating Hormone 1.44 uIU/mL (0.27-4.20); Total Bilirubin 0.3 mg/dL (0.15-1.2); Total Protein 6.5 g/dL (6.6-8.7)
--- NOTE | 2020-07-10 18:45 | ED_ITS ---
HPI - Psych General: Chief Complaint: Psychiatric Symptoms Stated Complaint: SI Time Seen by Provider: 07/10/20 17:16 Source: EMS and police Mode of arrival: EMS Limitations: altered mental status History of Present Illness: HPI Narrative: Unable to obtain a history from the patient as he has been given 100 mg of ketamine by EMS. He was brought in by EMS on [place] [employer]. The patient apparently made several comments to different people that he was going to kill himself tonight and police was therefore called. The patient was not cooperative and tried to jump out of the ambulance he was therefore given ketamine at a time. He has a history of COPD and wears 4 to 5 L of oxygen all the time. The patient is unable to give me history. 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 No evidence of recurrence, currently getting PACKAGE DYER prophylaxis with intrathecal methotrexate with prophylactic radiation to right testicle, CHOP treatment Meningitis Orchialgia Pulmonary embolism DVT of right leg, 2009 Pulmonary hypertension After PE Surgical History H/O colonoscopy 2001 -diverticulosis, colon polyps / 2005 -diverticulosis, small telangiectasia / 01/2016 -diverticulosis with intrinsic stenosis and sigmoid H/O esophagogastroduodenoscopy 2005 -reflux esophagitis, superficial gastric erosions with hemorrhagic gastritis, duodenitis /2008 -reflux esophagitis, gastritis, small chronic gastric ulcer H/O hemorrhoidectomy History of orchiectomy, unilateral L -- diffuse large B-cell lymphoma Family History Other No pertinent family history Social History Smoking and tobacco status: current every day smoker cigarettes Packs smoked per day: 2 Alcohol intake: current Household members: family Housing: House Physical Exam Const: COMMON NORMALS: no acute distress, average body habitus, no limitations, healthy appearing and well nourished HENMT: COMMON NORMALS: normocephalic, atraumatic and moist oral mucous membranes HEAD & SCALP: normocephalic and atraumatic Neck/C-Spine: COMMON NORMALS: no meningeal signs and no JVD Resp: COMMON NORMALS: normal respiratory effort, No retractions, No use of accessory muscles, clear to auscultation bilaterally and percussion normal AUSCULTATION: clear to auscultation bilaterally PERCUSSION: percussion normal Cardio: COMMON NORMALS: no JVD, regular rate, regular rhythm, S1 normal heart sound present, S2 normal heart sound present, No gallops present (Cardio), No clicks present (Cardio), No murmurs present (Cardio), No rub (Cardio) and Peripheral pulses 2+ throughout RATE: regular rate RHYTHM: regular rhythm HEART SOUNDS: S1 normal heart sound present and S2 normal heart sound present PERIPHERAL PULSES: Peripheral pulses 2+ throughout GI: COMMON NORMALS: Normal to inspection, nondistended, normoactive bowel sounds present, Soft to palpation, non-tender, No hepatosplenomegaly present, no masses and no bruits PALPATION: Yes Soft to palpation and Yes No hepatosplenomegaly present Extremity: COMMON NORMALS: normal to inspection, full ROM, capillary refill normal, no calf tenderness and no pedal edema Neuro: SENSORIUM/ORIENTATION: Yes fluctuating sensorium (secondary to ketamine) MENINGEAL SIGNS: Yes no meningeal signs Skin: COMMON NORMALS: no rashes or lesions noted, no wounds, turgor normal, no jaundice, no petechiae and no mottling GENERAL SKIN EXAM: no rashes or lesions noted and turgor normal MDM - Psych MDM Narrative: Medical decision making narrative: 60 year old male who presented to the ED following statements made that he was suicidal. He was medically cleared and admitted to the [facility] for further evaluation and management. Medical Records: Attestation: I reviewed the patient's medical records. Lab Data: Attestation: I reviewed the patient's lab results. Labs: Lab Results 07/10/20 07/10/20 07/10/20 Range/Units 17:50 17:50 17:52 WBC 7.2 (4.0-10.0) 10^3/ uL RBC 4.51 (4.1-5.3) 10^6/u L Hgb 14.1 (11.7-16.6) g/dL Hct 43.2 (42.0-52.0) % MCV 95.8 H (80-94) fL MCH 31.3 (28.0-34.0) pg MCHC 32.6 (30.0-36.0) g/dL RDW 13.3 (12.1-15.1) % Plt Count 181 (130-400) 10^3/c mm MPV 8.5 (7.4-10.4) fL Neut % (Auto) 57.5 % Lymph % (Auto) 29.3 % [place] % (Auto) 9.7 % Eos % (Auto) 2.5 % Baso % (Auto) 0.4 % Neut # (Auto) 4.17 (1.8-7.7) 10^3/u L Lymph # (Auto) 2.1 (0.8-4.8) 10^3/u L [place] # (Auto) 0.7 (0.2-0.9) 10^3/u L Eos # (Auto) 0.2 (0.0-0.8) 10^3/u L Baso # (Auto) 0.0 (0.0-0.1) 10^3/u L Nucleated RBC % (a uto) 0 % Nucleated RBCs # 0.0 /100WBC Sodium (136-145) mmol/L Potassium (3.5-5.1) mmol/L Chloride (98-107) mmol/L Carbon Dioxide (22-29) mmol/L Anion Gap (5-19) BUN (6-20) mg/dL Creatinine (0.7-1.2) mg/dL GFR Calculation (90-130) mL/min Glucose (65-115) mg/dL Calculated Osmolal ity (285-295) mOsm/k g Calcium (8.5-10.5) mg/dL Total Bilirubin (0.15-1.2) mg/dL AST (0-40) U/L ALT (0-41) U/L Alkaline Phosphata se (40-130) IU/L Total Protein (6.6-8.7) g/dL Albumin (3.5-5.2) g/dL Globulin (1.3-4.6) g/dL TSH (0.27-4.20) uIU/ mL Urine Color Straw (Yellow) Urine Appearance Clear (CLEAR) Urine pH 5 (5-7) Ur Specific Gravit y 1.005 (1.005-1.030) Urine Protein Neg (Negative) Urine Glucose (UA) Norm (Normal) Urine Ketones Negative (Negative) Urine Blood Neg (Negative) Urine Nitrate Negative (Negative) Urine Bilirubin Neg (Negative) Urine Urobilinogen Norm (Negative) mg/dL Ur Leukocyte Dayna ase Negative (Negative) Salicylates (3-10) mg/dL Urine Opiates Scre en Negative (Negative) ng/mL Acetaminophen (10-30) ug/mL Ur Barbiturates Sc reen Negative (Negative) ng/mL Ur Phencyclidine S crn Negative (Negative) ng/mL Ur Amphetamines Sc reen Negative (Negative) ng/mL U Benzodiazepines Scrn Negative (Negative) ng/mL Urine Cocaine Scre en Negative (Negative) ng/mL U Marijuana (THC) Screen Negative (Negative) ng/mL Ethyl Alcohol (0-10) mg/dL 07/10/20 Range/Units 17:52 WBC (4.0-10.0) 10^3/ uL RBC (4.1-5.3) 10^6/u L Hgb (11.7-16.6) g/dL Hct (42.0-52.0) % MCV (80-94) fL MCH (28.0-34.0) pg MCHC (30.0-36.0) g/dL RDW (12.1-15.1) % Plt Count (130-400) 10^3/c mm MPV (7.4-10.4) fL Neut % (Auto) % Lymph % (Auto) % [place] % (Auto) % Eos % (Auto) % Baso % (Auto) % Neut # (Auto) (1.8-7.7) 10^3/u L Lymph # (Auto) (0.8-4.8) 10^3/u L [place] # (Auto) (0.2-0.9) 10^3/u L Eos # (Auto) (0.0-0.8) 10^3/u L Baso # (Auto) (0.0-0.1) 10^3/u L Nucleated RBC % (a uto) % Nucleated RBCs # /100WBC Sodium 130 L (136-145) mmol/L Potassium 4.1 (3.5-5.1) mmol/L Chloride 100 (98-107) mmol/L Carbon Dioxide 16 L (22-29) mmol/L Anion Gap 18.1 (5-19) BUN 7 (6-20) mg/dL Creatinine 0.5 L (0.7-1.2) mg/dL GFR Calculation 170.2 H (90-130) mL/min Glucose 101 (65-115) mg/dL Calculated Osmolal ity 268 L (285-295) mOsm/k g Calcium 7.9 L (8.5-10.5) mg/dL Total Bilirubin 0.3 (0.15-1.2) mg/dL AST 15 (0-40) U/L ALT 14 (0-41) U/L Alkaline Phosphata se 79 (40-130) IU/L Total Protein 6.5 L (6.6-8.7) g/dL Albumin 3.6 (3.5-5.2) g/dL Globulin 2.9 (1.3-4.6) g/dL TSH 1.44 (0.27-4.20) uIU/ mL Urine Color (Yellow) Urine Appearance (CLEAR) Urine pH (5-7) Ur Specific Gravit y (1.005-1.030) Urine Protein (Negative) Urine Glucose (UA) (Normal) Urine Ketones (Negative) Urine Blood (Negative) Urine Nitrate (Negative) Urine Bilirubin (Negative) Urine Urobilinogen (Negative) mg/dL Ur Leukocyte Dayna ase (Negative) Salicylates < 0.3 L (3-10) mg/dL Urine Opiates Scre en (Negative) ng/mL Acetaminophen < 5.0 L (10-30) ug/mL Ur Barbiturates Sc reen (Negative) ng/mL Ur Phencyclidine S crn (Negative) ng/mL Ur Amphetamines Sc reen (Negative) ng/mL U Benzodiazepines Scrn (Negative) ng/mL Urine Cocaine Scre en (Negative) ng/mL U Marijuana (THC) Screen (Negative) ng/mL Ethyl Alcohol 214 H (0-10) mg/dL Discharge Plan Discharge Patient Disposition: Admitted As Inpatient Admit Provider: Niko Bang Clinical Impression: Suicidal ideation, Alcohol use disorder, Alcohol intoxication Condition: Stable Coding Level of Care Code 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
[2020-07-10 18:50] LABS: Acetaminophen < 5.0 ug/mL (10-30); Salicylate < 0.3 mg/dL (3-10)
[2020-07-10 18:54] LABS: Add Urine Microscopic? NO
[2020-07-10 19:06] LABS: Bilirubin Urine Neg (Negative); Blood Urine Neg (Negative); Glucose Urine UA Norm (Normal); Ketones Urine Negative (Negative); Leukocyte Esterase Urine Negative (Negative); Nitrate Urine Negative (Negative); Protein Urine Neg (Negative); Specific Gravity, Urine 1.005 (1.005-1.030); Urine Appearance Clear (CLEAR); Urine Color Straw (Yellow); Urobilinogen Urine Norm (Negative); pH Urine 5 (5-7)
[2020-07-10 19:15] LABS: Amphetamines Screen Urine Negative (Negative); Barbiturates Screen Urine Negative (Negative); Benzodiazepines Screen Urine Negative (Negative); Cocaine Screen Urine Negative (Negative); Opiate Screen Urine Negative (Negative); PCP Screen Urine Negative (Negative); THC Screen Urine Negative (Negative)
--- NOTE | 2020-07-10 19:19 | PC.NURSE ---
1:1 sitter at bedside
[2020-07-11] VITALS (8 sets, daily range): BP systolic 109–127; BP diastolic 75–87; PULSE 85–98; RESP 16–22; TEMP 36.7–37.2; O2SAT 95–98
[2020-07-11] MEDS: hyDROXYzine 25 mg Capsule 50 MG PO (02:24)
--- NOTE | 2020-07-11 02:24 | PC.NURSE ---
PRN VISTARIL ADMINISTERED VISTARIL 50MG PO FOR PT C/O OF INCREASING ANXIETY. WILL MONITOR FOR MEDICATION EFFECTIVENESS.
[2020-07-11] MEDS: thiamine 100 mg Tablet PO (08:07)
[2020-07-11] MEDS: pantoprazole DR 40 mg Tablet PO (08:07)
[2020-07-11] MEDS: apixaban 5 mg Tablet PO ×2 (08:07→16:52)
[2020-07-11] MEDS: potassium chloride ER 20 mEq Tablet PO ×2 (08:07→16:52)
[2020-07-11] MEDS: folic acid 1 mg Tablet PO (08:07)
[2020-07-11] MEDS: multivitamin therapeutic Tablet 1 TAB PO (08:07)
[2020-07-11] MEDS: budesonide 0.5 mg/2 mL Neb INHALATION ×2 (09:52→20:30)
[2020-07-11] MEDS: ipratropium-albuterol 3 mL Neb INHALATION ×3 (09:52→20:30)
--- NOTE | 2020-07-11 11:07 | PM.NHP ---
Providers/Chief Complaint Admitting Physician: Niko Bang MD Primary Care Provider: Rasheed Spivey MD Chief Complaint: SI HPI NPU History of Present Illness Flakito Almanzar is a 60 year old male who presented to the ED with the following report: Chief Complaint: Psychiatric Symptoms Stated Complaint: SI Time Seen by Provider: 07/10/20 17:16 Source: EMS and police Mode of arrival: EMS Limitations: altered mental status History of Present Illness: HPI Narrative: Unable to obtain a history from the patient as he has been given 100 mg of ketamine by EMS. He was brought in by EMS on [place] [employer]. The patient apparently made several comments to different people that he was going to kill himself tonight and police was therefore called. The patient was not cooperative and tried to jump out of the ambulance he was therefore given ketamine at a time. He has a history of COPD and wears 4 to 5 L of oxygen all the time. The patient is unable to give me history. MD complaint: suicidal ideation. Brought presented to the neuropsychiatric unit for definitive treatment of those issues. Today he presents as he often does reporting that he is not suicidal now and is not sure why anyone said that. However he is on a 96-hour hold and the affidavits state that he in fact reported being suicidal to the officers on the scene. We discussed the treatment team convening tomorrow morning and that we would discuss his discharge planning and explore concerns about lethality each day and discharge as soon as it appears appropriate. We reviewed his history and he denies any substantive changes so an excerpt for the last inpatient contact has been included below. He did talk about having a wonderful life with his partner for about 28 years and then in the last 5 years drinking has been a problem since that significant support has been absent in his life. He had no clear plan about how he would decrease his drinking though he reports it has been less lately. Per his 04/13/2020 inpatient psychiatric consult: History of Present Illness Flakito Almanzar is a 59 year old male who presented to the emergency room with the following report: Mr. Almanzar is a 59-year-old male who arrives via EMS after receiving sedation for agitation and combativeness. He received ketamine IM to control his aggression. Information is second and product merchandiser but the best I can ascertain the patient was found to have possibly overdosed. He admitted to police he took 30 trazodone but upon inspection of the room he was in multiple medicine bottles were empty. It is undetermined what the patient took or how much. No further history can be obtained. He was admitted to the ICU for definitive treatment of those issues. A psychiatric consult was obtained to determine whether he was safe for discharge. He is known to this advertising copywriter through multiple previous admissions and excerpt of the last admission is included below for context. He was very resistant as a historian as we discussed the circumstances that brings him back here. He reports that he did go to a rehab like he was supposed to after our last contact and stayed there for 30 days. He reports that he went home and stop talking after that. was home for about 30 days and then reportedly inexplicably he began to drink and reports that he has drank 4 times prior to coming here intoxicated. He did not reveal with this advertising copywriter that attempt. And only endorsed that he wanted to go home. We discussed the fact that he was on a 96-hour hold and he essentially stopped talking. We discussed the fact that given the emergency room report he would at least need to be evaluated in the neuropsychiatric unit. Per his last IP [facility] eval: History of Present Illness Flakito Almanzar is a 59 year old male who presented to the emergency room on 01-19-20 and was brought in with his Clasp Machine Operator. This was a month after his previous hospitalization to the ICU for alcohol use, where he refused rehabilitation. He reportedly had been drinking a 24 pack of beer plus hard liquor everyday, for months, and he had reportedly threatened suicide several times. He was admitted to the ICU for definitive treatment of those issues. After two days in the ICU, he left the hospital against medical advise, and he returned on 01-20-20 late at night, and it had been identified that he had just left AMA; he was quite intoxicated and was in respiratory distress, only citing at 80% on 6 liters of oxygen and unable to give a history because of his intoxication and respiratory distress. So he was once admitted to the ICU for definitive treatment for his withdrawal and respiratory distress. Once he was medically cleared from the ICU, he was transferred to the neuropsychiatric unit for definitive treatment of his alcohol use disorder, depression, and suicidality. He presents today still resistant to the idea of inpatient rehabilitation. He was open to the idea of the utilization of Disulfiram / Antabuse after discussing the risks, benefits, and alternatives, but is resistant to the idea of rehab. We discussed the fact that his mom was planning on possibly challenging him in court to force him to go to an inpatient detox, against his will, which he was very upset about. We had a long discussion about how, at this point, his decision making is so flawed in relation to his alcohol that everyone treating him has grave concerns about which time we hear about him that is going to be the last time, due to how out of control his drinking is in relation to his overall medical issues. Ultimately, he seemed accepting that there was a high likelihood that we would support him being sent to rehab on a forced court order. We reviewed his last hospitalization notes, and he agreed that there had been no substantive changes and it represented his psycho-social history appropriately. Per his last [facility] eval 12/15/19: History of Present Illness Flakito Almanzar is a 59 year old male who presented to the emergency room intoxicated with a 96-hour hold affidavit stating he threatened to kill himself. He endorsed drinking heavily due to voices in his head. He was admitted on a 96-hour hold to the ICU for definitive treatment of his alcohol withdrawal and a psychiatric consult was initiated. Flakito was found to be cogent at the time of the interview reporting that he had gone to a rehab as planned but that he left after a few days secondary to being the oldest person there. This advertising copywriter challenged that is a real reason to leave the rehab and he showed some sense of humor. He then very quickly started talking about discharge and ending the 96-hour hold what he thought was unfair. I explained that first of all he is not medically cleared and he is in an ICU. We discussed the fact that it is our assessment that him going to a rehab for 30, 60, 90, 180 days presents on the best chance of maintaining his sobriety. He claims that after he left the rehab that he was sober for weeks but based on his history it is unclear that that is unlikely reality. We reviewed his most recent evaluation here and he denies any substance of changes in his history so an excerpt was included below. Per last [facility] eval: History of Present Illness Flakito Almanzar is a 59 year old male who presented to the emergency room intoxicated again. There have been a call from his mother the day before that he had been drinking again and talking about admission. Reportedly he has not been drinking for that long. In the past several hospitalizations he has said he would do inpatient r only to ehab retract that at discharge and then either not go to outpatient rehab or go to outpatient rehab and then slip-up. We have advised him the last couple of times that inpatient rehab is really the only vehicle through which we see success for him. He presents today reporting that he is ready to go to inpatient rehab. He denied lethality he endorsed some depression but reported that he just cannot seem to stay sober and he acknowledges that he needs to go to inpatient services to have a chance for success. His last [facility] eval is included below. We reviewed that he denied any changes to his psychosocial situation. He still lives along he still has his mom and his awning hanger helper as his significant supports. His awning hanger helper was here when I arrived. Per last [facility] eval: HPI NPU History of Present Illness Flakito Almanzar is a 59 year old male who presents today as he has multiple times recently intoxicated and endorsing depression. His mother called and reported that he had gone to the outpatient rehab 3 times and then never returned. He spent the last week getting drunk with an individual that he had agreed he would avoid during this critical. When he is so vulnerable. She reported that he threatened to kill his stepfather while in an intoxicated state. He was very resistant to the initial interview though we reviewed his previous psychosocial information that can be seen below. We discussed his continued presentation with resistance for inpatient rehab followed by discharge to some outpatient services and generally return to drinking within a week to 2 weeks if not sooner. We discussed the reality of the situation and the need for him to get 30/60/90 days sobriety to allow his mind to function and make decisions that are in his best interest. Especially given his other medical comorbidities as we discussed in his last visit the impact of his drinking on his already taxed immune system. We discussed the risks benefits and alternatives of different interventions and he understood and agreed to proceed with us finding him an inpatient rehab bed. D/C summary including recent pertinent psychosocial information: Discharge Diagnosis (1) Alcoholic intoxication: Status: Resolved Qualifiers: Complication of substance-induced condition: with unspecified complication Qualified Code(s): F10.929 - Alcohol use, unspecified with intoxication, unspecified (2) Depression with suicidal ideation: Status: Resolved Reason for Visit Reason for Visit: Reason For Visit: ETOH INTOX;SI 96 HOUR HOLD Brief History: Psych Consult HPI History of Present Illness Flakito Almanzar is a 59 year old male known to this advertising copywriter the previous interactions as he has been to the neuropsych unit 3 times since last March and this is the second ICU consult by this advertising copywriter on Flakito since then. He has generally come in with suicidal thinking, depression and alcohol use/intoxication, been managed appropriately in the ICU, gone to the neuropsych unit for mental health treatment and been discharged without major incident. Unfortunately multiple times he has reported a plan to go to inpatient rehabilitation, and that has never actually happened. At some point prior to discharge he gives some intellectualized response as to why it's impossible or not the best for him that he go to the inpatient rehabilitation. Those things include commitments to the charge, commitments to school in his academic pursuits, as well as personal desires not to go. Today we discussed his presentation and concerns about lethality which he downplayed. He reported that he loves himself too much to commit suicide, that he knows we'll be sending us guide the committed suicide, as well as other reasons. He then went on to say that he would not be seen by this advertising copywriter again, he was discharged. It seemed peculiar way that he said it. He tried to say that he would not be coming back here, because he wasn't going to drink, but it did not seem that was what he meant. He tried to say that he had plans to go to rehabilitation in the morning and that this had been prearranged. That has mother was aware and that he had to leave tonight so that he can get some things done that only he could do prior to going for 30 days. His demeanor raised enough concern that I discussed with Dr. Dunbar that we needed to confirm with his mother that this was a known plan otherwise it raises concerns that he was trying to discharge to possibly harm himself. Otherwise he reported that there have been no changes in his psychosocial conditions. He reports that his history and situation had not changed and was consistent with my previous interview in March which can be seen below. Per last consult: History of Present Illness Date of Service: Apr 04, 2019 Reason for Consultation: Intoxication with reported aggressive threats Consulting Service and Doctor: Niko Bang M.D. Psychiatry. HPI: Flakito presents today somewhat lethargic having had a significant amount of Ativan to combat his alcohol withdrawal reporting that he's been having a fairly tough time recently. He reports that alcohol use has changed to an alarming level the last year and reports that the issue surrounds dealing with his homosexuality and the fact that he feels unworthy of guys love given his of homosexuality. He denies having any significant mental health treatment or hospitalizations or any problems and reports that he grew up in a fairly mosque family and reports that about a year ago he began to really struggle with his known homosexuality to himself but reports that he began living a clearly homosexual life which she is struggle with from a spiritual standpoint. Records show confusing contradictions as he has had the diagnosis of HIV for some time and is unclear how that occurred however this is how he reports the story. He reports that he has been drinking about 4 pints of alcohol a day and reports that that has been going on for about a year. He reports he is probably only had a day here and there that he hasn't had a drink in this period of time. He also identifies that about 2 weeks ago he had a 1 or 2 day cessation of drinking where and he had a withdrawal seizure. He had reached out to [facility] or this may have occurred during his emergency room stent however there is reportedly a bed available for him but we discussed the risks benefits and alternatives of home taking that bed with an understanding that he needs to be through the detox aspect of the situation prior to going to [facility]. His blood alcohol was 400 at about noon yesterday. He had gone to the emergency room and then left and apparently when he left the went home and had another pint of alcohol and was found unconscious and brought back to the emergency room which is how he got into the ICU. He reports a plan and agreement to work with the treatment team and psychiatric services to try to get him in a condition that it is safe for him to go to [facility] on Sunday at 8 AM when they would pick him up here at [facility]. Active Meds: Current Hospital Medications: Medications (Trade) Dose Ordered Sig/Stanford Route PRN Reason Start Time Stop Time Status Last Admin Dose Admin Potassium Chloride/Sodium Chloride 1,000 ml @ 125 mls/hr CONT IV 04/03/19 15:15 Hold 04/04/19 09:12 Thiamine Mononitrate (Thiamine Tab) 100 mg DAILY PO 04/04/19 10:00 04/04/19 09:10 Multivitamins Therapeutic (Therapeutic Multivitamin) 1 ea DAILY PO 04/04/19 10:00 04/04/19 09:10 Folic Acid/ Cyanocobalamin/ pyridoxin (Folic Acid Tab) 1 mg DAILY PO 04/04/19 10:00 04/04/19 09:10 Lorazepam (Ativan Inj) 2 mg PRN PRN IV FOR WITHDRAWAL 04/03/19 15:15 04/04/19 13:00 Lorazepam (Ativan Inj) 2 mg PRN PRN IM for Withdrawal 04/03/19 15:15 Lorazepam (Ativan Tab) 2 mg PRN PRN PO Withdrawal 04/03/19 15:15 04/04/19 16:07 Acetaminophen (Tylenol Tab) 650 mg Q4H PRN PO FOR MILD PAIN 04/03/19 15:15 Ondansetron HCl (Zofran Inj) 4 mg Q6H PRN IV FOR NAUSEA AND VOMITING 04/03/19 15:15 Pantoprazole Sodium (Protonix Tab) 40 mg DAILY PO 04/04/19 10:00 04/04/19 09:10 Enoxaparin Sodium (Lovenox) 40 mg Q24H SUBCUT 04/03/19 15:15 04/04/19 16:07 Nicotine (Nicoderm Patch) 21 mg DAILY PRN TD 04/04/19 04:30 04/04/19 05:05 Dexmedetomidine HCl 400 mcg/ Sodium Chloride 104 ml @ 0 mls/hr CONT IV 04/04/19 10:00 04/04/19 10:18 Haloperidol Lactate (Haldol Inj) 5 mg Q3H PRN IM FOR AGITATION 04/04/19 13:30 Home Meds: Home Medications: Active Reported [Opsumit] 1 Tab PO DAILY Symbicort 80-4.5 Mcg Inhaler (Budesonide/Formoterol Fumarate) 10.2 Gm Inhaler 2 Puff INH BID Iron Sulfate 325MG Tab (Ferrous Sulfate) 325 Mg Tabec 325 Mg PO BREAKFAST Diflucan Tab (Fluconazole) 100 Mg Tablet 100 Mg PO DAILY Wellbutrin XL (Bupropion HCl) 150 Mg Tab.sr.24h 150 Mg PO DAILY Trazodone Tab (Trazodone HCl) 150 Mg Tablet 300 Mg PO BEDTIME Klor Con Tab (Potassium Chloride) 20 Meq Tab.prt.sr 20 Meq PO TID Protonix Tab (Pantoprazole Sodium) 40 Mg Tabec 40 Mg PO DAILY [Descovy] 1 Tab PO DAILY Isentress Chew Tab (Raltegravir) 100 Mg Tab.chew 400 Mg PO BID Xanax Tab (Alprazolam) 0.25 Mg Tab 0.25 Mg PO TID Oxycodone IR (Oxycodone HCl) 30 Mg Tab 30 Mg PO QID PRN Duragesic Patch (Fentanyl) 50 Mcg Patch 50 Mcg TD Q72H Prednisone Tab (Prednisone) 10 Mg Tablet 20 Mg PO DAILY Narcan (Naloxone HCl) 4 Mg/Actuation [place] 4 Mg NASAL ONCE PRN 1 Days Cartia XT (Diltiazem HCl) 240 Mg Cap.sr.24h 240 Mg PO DAILY Pradaxa Cap (Dabigatran) 150 Mg Capsule 150 Mg PO BID Voltaren Gel (Diclofenac Gel) 100 Gm Gel..gm. 1 Applic TOP QID PRN Past Medical History Past Medical History: Please see ED and ICU notes for additional history. Other Family Medical History: He denies significant mental health, addiction or other issues in his family. He denies any history of suicide attempts or completions in his family. Other Past Social History: Developmental history: Flakito reports being the product of a normal . He endorses that he learn to walk and talk and met his development milestones on time. He denied any speech therapy, learning support, emotional support special education classes. Psychosocial history: He reports being the only child of his parents and that they were together when he was born. He denies any other siblings through their union with any other partners and reports that they never . He reports that his childhood was good but he was raised in a fairly mosque family went to congregation on Sundays and Wednesdays at least. He reports he graduated from high school. He endorses being homosexual and his long-term relationship has not been very long. He denies ever being , never had any children, never been in the he endorses being a Taoist. He reports his longest tenure in any job was about 7 years. He reports he lives in a house alone. He denies any significant legal history. Meds NPU Home Medications Medication Instructions Recorded Confirmed Last Taken Type potassium chloride 20 mEq 20 meq PO BID@07/21/19 07/10/20 06/29/20 History tablet,extended release(part/cryst) mirtazapine 15 mg PO BEDTIME #30 tab 01/27/20 07/10/20 Unknown Rx Dovato 1 tab PO DAILY@04/11/20 07/10/20 06/29/20 07:00 History albuterol sulfate [Ventolin HFA] 1 - 2 puff INHALATION Q4H PRN 04/11/20 07/10/20 Unknown History alprazolam 0.25 mg PO TID PRN 04/11/20 07/10/20 06/28/20 History hydroxyzine HCl 10 mg PO BID 04/11/20 07/10/20 Unknown History sildenafil (pulm.hypertension) See Rx Instructions .ROUTE .COMPLEX 04/11/20 07/10/20 Unknown History testosterone See Rx Instructions .ROUTE .COMPLEX 04/11/20 07/10/20 Unknown History Eliquis 5 mg PO BID@06/29/20 07/10/20 06/29/20 History albuterol sulfate 2 inh INHALATION Q4H PRN #18 gm 06/29/20 07/10/20 Unknown Rx budesonide 0.5 mg INHALATION BID 06/29/20 07/10/20 Unknown History diltiazem HCl 240 mg PO DAILY@06/29/20 07/10/20 06/29/20 07:00 History fluconazole 100 mg PO DAILY@06/29/20 07/10/20 06/28/20 History ipratropium-albuterol 3 ml INHALATION Q6H 06/29/20 07/10/20 Unknown History macitentan [Opsumit] 10 mg PO DAILY@06/29/20 07/10/20 06/29/20 History multivitamin 1 tab PO DAILY 06/29/20 07/10/20 Unknown History pantoprazole 40 mg PO DAILY@06/29/20 07/10/20 Unknown History sulfamethoxazole-trimethoprim 1 tab PO MOWEFR@06/29/20 07/10/20 Unknown History trazodone 300 mg PO DAILY@20 06/29/20 07/10/20 Unknown History Allergies Allergy/AdvReac Type Severity Reaction Status Date / Time No Known Allergies Allergy Verified 06/29/20 09:44 PFSH NPU PFSH: Medical History Anorexia Atrial fibrillation Colon polyps COPD (chronic obstructive pulmonary disease) Severe COPD Depressive disorder Diverticulitis / Diverticulosis GI bleed Was taken off Coumadin for a month in 2015 after a bleeding gastric ulcer, currently on Eliquis History of peptic ulcer disease HIV (human immunodeficiency virus infection) Hypogonadism Liver tumor Lymphoma 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 No evidence of recurrence, currently getting DIGITAL SALES REPRESENTATIVE prophylaxis with intrathecal methotrexate with prophylactic radiation to right testicle, CHOP treatment Meningitis Orchialgia Pulmonary embolism DVT of right leg, 2009 Pulmonary hypertension After PE Surgical History H/O colonoscopy 2001 -diverticulosis, colon polyps / 2005 -diverticulosis, small telangiectasia / 01/2016 -diverticulosis with intrinsic stenosis and sigmoid H/O esophagogastroduodenoscopy 2005 -reflux esophagitis, superficial gastric erosions with hemorrhagic gastritis, duodenitis /2008 -reflux esophagitis, gastritis, small chronic gastric ulcer H/O hemorrhoidectomy History of orchiectomy, unilateral L -- diffuse large B-cell lymphoma Family History Other No pertinent family history Social History Smoking and tobacco status: current every day smoker cigarettes Packs smoked per day: 2 Alcohol intake: current Household members: family Housing: House Mental Status Exam MSE Comments: This is a feeble, sickly appearing, white male, with nasal cannula in, with limited dress, grooming, and eye contact. No abnormal movements, except for psychomotor retardation and some mild tremor. Semi-cooperative with exam in no acute distress. Speech was decreased rate and volume. Mood described as fine; affect irritable. Thought process, organized. Thought content: patient denied any suicidal or homicidal ideation, there were no delusions reported or noted, patient denied any auditory or visual hallucinations. Attention, concentration, and memory appear intact but none were formally tested. He is alert and oriented times three. Insight and judgment are impaired. Impulse control is impaired. Vitals/I&O/Wt Last Vital Signs Temp 99.0 F 07/11/20 14:00 Pulse 93 07/11/20 14:00 Resp 20 H 07/11/20 14:00 BP 109/75 07/11/20 14:00 Pulse Ox 97 07/11/20 09:50 Weight last 48 hrs Weight 77.111 kg Weight 99.79 kg Data NPU : 07/10/20 17:52 07/10/20 17:52 A&P Assessment and plan (1) Suicidal ideation: Status: Acute (2) Alcohol intoxication: Status: Acute Qualifiers: Complication of substance-induced condition: with delirium Qualified Code(s): F10.921 - Alcohol use, unspecified with intoxication delirium (3) Alcohol abuse: Status: Acute (4) Posttraumatic stress disorder: Status: Chronic (5) Alcohol use disorder: Status: Chronic (6) Major depressive disorder: Status: Chronic (7) HIV (human immunodeficiency virus infection): Status: Chronic Additional A&P Information This is a 60-year-old white male with a long history of PTSD alcohol use and HIV who presents with ongoing depression reported suicidal ideation on a 96-hour hold. 1. Continue current medication. 2. Then you one-to-one observation given the nasal cannula being continuous. 3. Encourage individual, group and milieu therapy. 4. Encourage sober living treatment at the highest level of care to which he is willing to commit. Involuntary Hold Information 96 Hour Hold: 96 Hour Involuntary Admission: Yes 96 Hour Hold Ending Date: 07/16/20 96 Hour Hold Ending Time: 21:31 Attestations NPU Medical Necessity Statement*: Inpatient hospitalization is medically necessary and the clinically appropriate intervention at this time. We will monitor medications and make changes as indicated. He will be in the hospital for over 2 midnights. With a high safety for discharge given the 96-hour hold. Likely length of stay 2-4 days. Coding Level of Care Code Acute Customer [employer]ist for [employer] Or[employer] Diagnoses Suicidal ideation R45.851 Alcohol intoxication F10.921 Complication of substance-induced condition: with delirium Alcohol abuse F10.10 Posttraumatic stress disorder F43.10 Alcohol use disorder Major depressive disorder F32.9 HIV (human immunodeficiency virus infection) B20
[2020-07-11] MEDS: mirtazapine 15 mg Tablet PO (20:07)
[2020-07-11] MEDS: trazodone 150 mg Tablet 300 MG PO (20:07)
--- NOTE | 2020-07-11 21:17 | PC.NURSE ---
PLEASANT THIS EVENING. CONTINUES TO HAVE 1-1 SITTER D/T 02 @4L N/C. DENIES WANTING TO HARM SELF. SAYS HOPING TO GET TO GO HOME IN AM.
[2020-07-12 06:00] VITALS: BP 119/82; PULSE 88; RESP 16; TEMP 36.8; O2SAT 93
[2020-07-12] MEDS: budesonide 0.5 mg/2 mL Neb INHALATION (08:44)
[2020-07-12] MEDS: ipratropium-albuterol 3 mL Neb INHALATION (08:44)
[2020-07-12 08:46] VITALS: PULSE 102; RESP 18; O2SAT 95
[2020-07-12 08:52] VITALS: PULSE 99
[2020-07-12] MEDS: pantoprazole DR 40 mg Tablet PO (09:09)
[2020-07-12] MEDS: apixaban 5 mg Tablet PO (09:10)
[2020-07-12] MEDS: thiamine 100 mg Tablet PO (09:10)
[2020-07-12] MEDS: potassium chloride ER 20 mEq Tablet PO (09:10)
[2020-07-12] MEDS: multivitamin therapeutic Tablet 1 TAB PO (09:10)
[2020-07-12] MEDS: folic acid 1 mg Tablet PO (09:10)
--- NOTE | 2020-07-12 13:34 | PM.NDC ---
Diagnoses at Discharge Discharge Diagnosis (1) Suicidal ideation: Status: Resolved (2) Alcohol intoxication: Status: Resolved Qualifiers: Complication of substance-induced condition: with delirium Qualified Code(s): F10.921 - Alcohol use, unspecified with intoxication delirium (3) Alcohol abuse: Status: Acute (4) Posttraumatic stress disorder: Status: Chronic (5) Alcohol use disorder: Status: Chronic (6) Major depressive disorder: Status: Chronic (7) HIV (human immunodeficiency virus infection): Status: Chronic Reason for Visit Reason for Visit: SI Brief History: History of Present Illness Flakito Almanzar is a 60 year old male who presented to the ED with the following report: Chief Complaint: Psychiatric Symptoms Stated Complaint: SI Time Seen by Provider: 07/10/20 17:16 Source: EMS and police Mode of arrival: EMS Limitations: altered mental status History of Present Illness: HPI Narrative: Unable to obtain a history from the patient as he has been given 100 mg of ketamine by EMS. He was brought in by EMS on [place] [employer]. The patient apparently made several comments to different people that he was going to kill himself tonight and police was therefore called. The patient was not cooperative and tried to jump out of the ambulance he was therefore given ketamine at a time. He has a history of COPD and wears 4 to 5 L of oxygen all the time. The patient is unable to give me history. MD complaint: suicidal ideation. Brought presented to the neuropsychiatric unit for definitive treatment of those issues. Today he presents as he often does reporting that he is not suicidal now and is not sure why anyone said that. However he is on a 96-hour hold and the affidavits state that he in fact reported being suicidal to the officers on the scene. We discussed the treatment team convening tomorrow morning and that we would discuss his discharge planning and explore concerns about lethality each day and discharge as soon as it appears appropriate. We reviewed his history and he denies any substantive changes so an excerpt for the last inpatient contact has been included below. He did talk about having a wonderful life with his partner for about 28 years and then in the last 5 years drinking has been a problem since that significant support has been absent in his life. He had no clear plan about how he would decrease his drinking though he reports it has been less lately. Per his 04/13/2020 inpatient psychiatric consult: History of Present Illness Flakito Almanzar is a 59 year old male who presented to the emergency room with the following report: Mr. Almanzar is a 59-year-old male who arrives via EMS after receiving sedation for agitation and combativeness. He received ketamine IM to control his aggression. Information is second and molder hand but the best I can ascertain the patient was found to have possibly overdosed. He admitted to police he took 30 trazodone but upon inspection of the room he was in multiple medicine bottles were empty. It is undetermined what the patient took or how much. No further history can be obtained. He was admitted to the ICU for definitive treatment of those issues. A psychiatric consult was obtained to determine whether he was safe for discharge. He is known to this proposal lead writer through multiple previous admissions and excerpt of the last admission is included below for context. He was very resistant as a historian as we discussed the circumstances that brings him back here. He reports that he did go to a rehab like he was supposed to after our last contact and stayed there for 30 days. He reports that he went home and stop talking after that. was home for about 30 days and then reportedly inexplicably he began to drink and reports that he has drank 4 times prior to coming here intoxicated. He did not reveal with this proposal lead writer that attempt. And only endorsed that he wanted to go home. We discussed the fact that he was on a 96-hour hold and he essentially stopped talking. We discussed the fact that given the emergency room report he would at least need to be evaluated in the neuropsychiatric unit. Per his last IP [facility] eval: History of Present Illness Flakito Almanzar is a 59 year old male who presented to the emergency room on 01-19-20 and was brought in with his Family Law Paralegal. This was a month after his previous hospitalization to the ICU for alcohol use, where he refused rehabilitation. He reportedly had been drinking a 24 pack of beer plus hard liquor everyday, for months, and he had reportedly threatened suicide several times. He was admitted to the ICU for definitive treatment of those issues. After two days in the ICU, he left the hospital against medical advise, and he returned on 01-20-20 late at night, and it had been identified that he had just left AMA; he was quite intoxicated and was in respiratory distress, only citing at 80% on 6 liters of oxygen and unable to give a history because of his intoxication and respiratory distress. So he was once admitted to the ICU for definitive treatment for his withdrawal and respiratory distress. Once he was medically cleared from the ICU, he was transferred to the neuropsychiatric unit for definitive treatment of his alcohol use disorder, depression, and suicidality. He presents today still resistant to the idea of inpatient rehabilitation. He was open to the idea of the utilization of Disulfiram / Antabuse after discussing the risks, benefits, and alternatives, but is resistant to the idea of rehab. We discussed the fact that his mom was planning on possibly challenging him in court to force him to go to an inpatient detox, against his will, which he was very upset about. We had a long discussion about how, at this point, his decision making is so flawed in relation to his alcohol that everyone treating him has grave concerns about which time we hear about him that is going to be the last time, due to how out of control his drinking is in relation to his overall medical issues. Ultimately, he seemed accepting that there was a high likelihood that we would support him being sent to rehab on a forced court order. We reviewed his last hospitalization notes, and he agreed that there had been no substantive changes and it represented his psycho-social history appropriately. Per his last [facility] eval 12/15/19: History of Present Illness Flakito Almanzar is a 59 year old male who presented to the emergency room intoxicated with a 96-hour hold affidavit stating he threatened to kill himself. He endorsed drinking heavily due to voices in his head. He was admitted on a 96-hour hold to the ICU for definitive treatment of his alcohol withdrawal and a psychiatric consult was initiated. Flakito was found to be cogent at the time of the interview reporting that he had gone to a rehab as planned but that he left after a few days secondary to being the oldest person there. This proposal lead writer challenged that is a real reason to leave the rehab and he showed some sense of humor. He then very quickly started talking about discharge and ending the 96-hour hold what he thought was unfair. I explained that first of all he is not medically cleared and he is in an ICU. We discussed the fact that it is our assessment that him going to a rehab for 30, 60, 90, 180 days presents on the best chance of maintaining his sobriety. He claims that after he left the rehab that he was sober for weeks but based on his history it is unclear that that is unlikely reality. We reviewed his most recent evaluation here and he denies any substance of changes in his history so an excerpt was included below. Per last [facility] eval: History of Present Illness Flakito Almanzar is a 59 year old male who presented to the emergency room intoxicated again. There have been a call from his mother the day before that he had been drinking again and talking about admission. Reportedly he has not been drinking for that long. In the past several hospitalizations he has said he would do inpatient r only to ehab retract that at discharge and then either not go to outpatient rehab or go to outpatient rehab and then slip-up. We have advised him the last couple of times that inpatient rehab is really the only vehicle through which we see success for him. He presents today reporting that he is ready to go to inpatient rehab. He denied lethality he endorsed some depression but reported that he just cannot seem to stay sober and he acknowledges that he needs to go to inpatient services to have a chance for success. His last [facility] eval is included below. We reviewed that he denied any changes to his psychosocial situation. He still lives along he still has his mom and his dining room maid as his significant supports. His dining room maid was here when I arrived. Per last [facility] eval: HPI NPU History of Present Illness Flakito Almanzar is a 59 year old male who presents today as he has multiple times recently intoxicated and endorsing depression. His mother called and reported that he had gone to the outpatient rehab 3 times and then never returned. He spent the last week getting drunk with an individual that he had agreed he would avoid during this critical. When he is so vulnerable. She reported that he threatened to kill his stepfather while in an intoxicated state. He was very resistant to the initial interview though we reviewed his previous psychosocial information that can be seen below. We discussed his continued presentation with resistance for inpatient rehab followed by discharge to some outpatient services and generally return to drinking within a week to 2 weeks if not sooner. We discussed the reality of the situation and the need for him to get 30/60/90 days sobriety to allow his mind to function and make decisions that are in his best interest. Especially given his other medical comorbidities as we discussed in his last visit the impact of his drinking on his already taxed immune system. We discussed the risks benefits and alternatives of different interventions and he understood and agreed to proceed with us finding him an inpatient rehab bed. D/C summary including recent pertinent psychosocial information: Discharge Diagnosis (1) Alcoholic intoxication: Status: Resolved Qualifiers: Complication of substance-induced condition: with unspecified complication Qualified Code(s): F10.929 - Alcohol use, unspecified with intoxication, unspecified (2) Depression with suicidal ideation: Status: Resolved Reason for Visit Reason for Visit: Reason For Visit: ETOH INTOX;SI 96 HOUR HOLD Brief History: Psych Consult HPI History of Present Illness Flakito Almanzar is a 59 year old male known to this proposal lead writer the previous interactions as he has been to the neuropsych unit 3 times since last March and this is the second ICU consult by this proposal lead writer on Flakito since then. He has generally come in with suicidal thinking, depression and alcohol use/intoxication, been managed appropriately in the ICU, gone to the neuropsych unit for mental health treatment and been discharged without major incident. Unfortunately multiple times he has reported a plan to go to inpatient rehabilitation, and that has never actually happened. At some point prior to discharge he gives some intellectualized response as to why it's impossible or not the best for him that he go to the inpatient rehabilitation. Those things include commitments to the charge, commitments to school in his academic pursuits, as well as personal desires not to go. Today we discussed his presentation and concerns about lethality which he downplayed. He reported that he loves himself too much to commit suicide, that he knows we'll be sending us guide the committed suicide, as well as other reasons. He then went on to say that he would not be seen by this proposal lead writer again, he was discharged. It seemed peculiar way that he said it. He tried to say that he would not be coming back here, because he wasn't going to drink, but it did not seem that was what he meant. He tried to say that he had plans to go to rehabilitation in the morning and that this had been prearranged. That has mother was aware and that he had to leave tonight so that he can get some things done that only he could do prior to going for 30 days. His demeanor raised enough concern that I discussed with Dr. Dunbar that we needed to confirm with his mother that this was a known plan otherwise it raises concerns that he was trying to discharge to possibly harm himself. Otherwise he reported that there have been no changes in his psychosocial conditions. He reports that his history and situation had not changed and was consistent with my previous interview in March which can be seen below. Per last consult: History of Present Illness Date of Service: Apr 04, 2019 Reason for Consultation: Intoxication with reported aggressive threats Consulting Service and Doctor: Niko Bang M.D. Psychiatry. HPI: Flakito presents today somewhat lethargic having had a significant amount of Ativan to combat his alcohol withdrawal reporting that he's been having a fairly tough time recently. He reports that alcohol use has changed to an alarming level the last year and reports that the issue surrounds dealing with his homosexuality and the fact that he feels unworthy of guys love given his of homosexuality. He denies having any significant mental health treatment or hospitalizations or any problems and reports that he grew up in a fairly bahai family and reports that about a year ago he began to really struggle with his known homosexuality to himself but reports that he began living a clearly homosexual life which she is struggle with from a spiritual standpoint. Records show confusing contradictions as he has had the diagnosis of HIV for some time and is unclear how that occurred however this is how he reports the story. He reports that he has been drinking about 4 pints of alcohol a day and reports that that has been going on for about a year. He reports he is probably only had a day here and there that he hasn't had a drink in this period of time. He also identifies that about 2 weeks ago he had a 1 or 2 day cessation of drinking where and he had a withdrawal seizure. He had reached out to [facility] or this may have occurred during his emergency room stent however there is reportedly a bed available for him but we discussed the risks benefits and alternatives of home taking that bed with an understanding that he needs to be through the detox aspect of the situation prior to going to [facility]. His blood alcohol was 400 at about noon yesterday. He had gone to the emergency room and then left and apparently when he left the went home and had another pint of alcohol and was found unconscious and brought back to the emergency room which is how he got into the ICU. He reports a plan and agreement to work with the treatment team and psychiatric services to try to get him in a condition that it is safe for him to go to [facility] on Sunday at 8 AM when they would pick him up here at [facility]. Active Meds: Current Hospital Medications: Medications (Trade) Dose Ordered Sig/Stanford Route PRN Reason Start Time Stop Time Status Last Admin Dose Admin Potassium Chloride/Sodium Chloride 1,000 ml @ 125 mls/hr CONT IV 04/03/19 15:15 Hold 04/04/19 09:12 Thiamine Mononitrate (Thiamine Tab) 100 mg DAILY PO 04/04/19 10:00 04/04/19 09:10 Multivitamins Therapeutic (Therapeutic Multivitamin) 1 ea DAILY PO 04/04/19 10:00 04/04/19 09:10 Folic Acid/ Cyanocobalamin/ pyridoxin (Folic Acid Tab) 1 mg DAILY PO 04/04/19 10:00 04/04/19 09:10 Lorazepam (Ativan Inj) 2 mg PRN PRN IV FOR WITHDRAWAL 04/03/19 15:15 04/04/19 13:00 Lorazepam (Ativan Inj) 2 mg PRN PRN IM for Withdrawal 04/03/19 15:15 Lorazepam (Ativan Tab) 2 mg PRN PRN PO Withdrawal 04/03/19 15:15 04/04/19 16:07 Acetaminophen (Tylenol Tab) 650 mg Q4H PRN PO FOR MILD PAIN 04/03/19 15:15 Ondansetron HCl (Zofran Inj) 4 mg Q6H PRN IV FOR NAUSEA AND VOMITING 04/03/19 15:15 Pantoprazole Sodium (Protonix Tab) 40 mg DAILY PO 04/04/19 10:00 04/04/19 09:10 Enoxaparin Sodium (Lovenox) 40 mg Q24H SUBCUT 04/03/19 15:15 04/04/19 16:07 Nicotine (Nicoderm Patch) 21 mg DAILY PRN TD 04/04/19 04:30 04/04/19 05:05 Dexmedetomidine HCl 400 mcg/ Sodium Chloride 104 ml @ 0 mls/hr CONT IV 04/04/19 10:00 04/04/19 10:18 Haloperidol Lactate (Haldol Inj) 5 mg Q3H PRN IM FOR AGITATION 04/04/19 13:30 Home Meds: Home Medications: Active Reported [Opsumit] 1 Tab PO DAILY Symbicort 80-4.5 Mcg Inhaler (Budesonide/Formoterol Fumarate) 10.2 Gm Inhaler 2 Puff INH BID Iron Sulfate 325MG Tab (Ferrous Sulfate) 325 Mg Tabec 325 Mg PO BREAKFAST Diflucan Tab (Fluconazole) 100 Mg Tablet 100 Mg PO DAILY Wellbutrin XL (Bupropion HCl) 150 Mg Tab.sr.24h 150 Mg PO DAILY Trazodone Tab (Trazodone HCl) 150 Mg Tablet 300 Mg PO BEDTIME Klor Con Tab (Potassium Chloride) 20 Meq Tab.prt.sr 20 Meq PO TID Protonix Tab (Pantoprazole Sodium) 40 Mg Tabec 40 Mg PO DAILY [Descovy] 1 Tab PO DAILY Isentress Chew Tab (Raltegravir) 100 Mg Tab.chew 400 Mg PO BID Xanax Tab (Alprazolam) 0.25 Mg Tab 0.25 Mg PO TID Oxycodone IR (Oxycodone HCl) 30 Mg Tab 30 Mg PO QID PRN Duragesic Patch (Fentanyl) 50 Mcg Patch 50 Mcg TD Q72H Prednisone Tab (Prednisone) 10 Mg Tablet 20 Mg PO DAILY Narcan (Naloxone HCl) 4 Mg/Actuation Ovett 4 Mg NASAL ONCE PRN 1 Days Cartia XT (Diltiazem HCl) 240 Mg Cap.sr.24h 240 Mg PO DAILY Pradaxa Cap (Dabigatran) 150 Mg Capsule 150 Mg PO BID Voltaren Gel (Diclofenac Gel) 100 Gm Gel..gm. 1 Applic TOP QID PRN Past Medical History Past Medical History: Please see ED and ICU notes for additional history. Other Family Medical History: He denies significant mental health, addiction or other issues in his family. He denies any history of suicide attempts or completions in his family. Other Past Social History: Developmental history: Flakito reports being the product of a normal . He endorses that he learn to walk and talk and met his development milestones on time. He denied any speech therapy, learning support, emotional support special education classes. Psychosocial history: He reports being the only child of his parents and that they were together when he was born. He denies any other siblings through their union with any other partners and reports that they never . He reports that his childhood was good but he was raised in a fairly bahai family went to sabianist on Sundays and Wednesdays at least. He reports he graduated from high school. He endorses being homosexual and his long-term relationship has not been very long. He denies ever being , never had any children, never been in the he endorses being a [employer]. He reports his longest tenure in any job was about 7 years. He reports he lives in a house alone. He denies any significant legal history. Hospital Course Hospital Course Who presented to the emergency department with affidavits on a 96-hour hold from the police with reports that he was endorsing suicidal ideation. He was intoxicated and ultimately admitted to the neuropsychiatric unit for definitive treatment of those issues. On the unit he quickly acclimated to the individual, group and milieu therapies provided. As per usual he quickly denied any suicidal ideation endorsing that he never said anything like that. There were collateral reports that he was possibly a little down secondary to a romantic partner not being reciprocative. Either way there were no signs of credible lethality once he was sober, he was able to contract for safety prior to discharge. During the hospitalization, patient had routine laboratory studies which were within normal limits except for few outliers. Additionally he had a general medical evaluation which was also within normal limits and revealed no new acute processes. Discharge Summary: At the time of discharge, lethality and psychosis were absent. Mood and anxiety were well managed. Patient endorsed a plan to avoid all drugs of abuse and follow-up with the aftercare recommendations of the treatment team. Patient was evaluated and deemed to be absent credible lethality, and had achieved the maximum benefit from an inpatient hospitalization, so was discharged. Involuntary Hold Information 96 Hour Hold: 96 Hour Involuntary Admission: Yes 96 Hour Hold Ending Date: 07/16/20 96 Hour Hold Ending Time: 21:31 Mental Status Exam MSE Comments: This is a slender appearing, white male, with nasal cannula in, with adequate dress, grooming, and eye contact. No abnormal movements, except for mild psychomotor retardation and some mild tremor. Cooperative with exam in no acute distress. Speech was more normal rate and volume. Mood described as better; affect congruent. Thought process, organized. Thought content: patient denied any suicidal or homicidal ideation, there were no delusions reported or noted, patient denied any auditory or visual hallucinations. Attention, concentration, and memory appear intact but none were formally tested. He is alert and oriented times three. Insight and judgment are limited, but improving. Impulse control is impaired. Discharge Data Vitals: Last Vital Signs Temp 98.2 F 07/12/20 06:00 Pulse 99 07/12/20 08:52 Resp 18 07/12/20 08:46 BP 119/82 07/12/20 06:00 Pulse Ox 95 07/12/20 08:46 Discharge Plan Discharge Patient Disposition: Home Condition: Stable Prescriptions: Continued potassium chloride [Klor-Con M20] 20 mEq tablet,ER particles/crystals 20 meq PO BID@, RF: 0 multivitamin Tablet 1 tab PO DAILY RF: 0 Opsumit 10 mg tablet 10 mg PO DAILY@ RF: 0 fluconazole 100 mg tablet 100 mg PO DAILY@ RF: 0 ipratropium-albuterol 0.5 mg-3 mg(2.5 mg base)/3 mL solution for nebulization 3 ml inhalation Q6H RF: 0 diltiazem HCl 240 mg capsule,extended release 24 hr 240 mg PO DAILY@07 RF: 0 sulfamethoxazole-trimethoprim 800-160 mg tablet 1 tab PO MOWEFR@ RF: 0 pantoprazole 40 mg tablet,delayed release (DR/EC) 40 mg PO DAILY@ RF: 0 trazodone 150 mg tablet 300 mg PO DAILY@20 RF: 0 budesonide 0.5 mg/2 mL suspension for nebulization 0.5 mg inhalation BID RF: 0 Eliquis 5 mg tablet 5 mg PO BID@ RF: 0 albuterol sulfate 90 mcg/actuation HFA aerosol inhaler 2 inh INHALATION Q4H PRN (Reason: shortness of breath or wheezing) Qty: 18 RF: 0 mirtazapine 15 mg Tablet 15 mg PO BEDTIME Qty: 30 RF: 2 alprazolam 0.25 mg tablet 0.25 mg PO TID PRN (Reason: Anxiety) RF: 0 albuterol sulfate [Ventolin HFA] 90 mcg/actuation HFA aerosol inhaler 1 - 2 puff inhalation Q4H PRN (Reason: Shortness Of Breath) RF: 0 hydroxyzine HCl 10 mg tablet 10 mg PO BID RF: 0 sildenafil (pulm.hypertension) 20 mg tablet See Rx Instructions .ROUTE .COMPLEX RF: 0 testosterone 20.25 mg/1.25 gram (1.62 %) gel in metered-dose pump See Rx Instructions .ROUTE .COMPLEX RF: 0 Dovato 50-300 mg tablet 1 tab PO DAILY@07 RF: 0 Discharge Orders: Discharge Order (Routine); Ordered 07/12/20 Ordered By: Niko Bang Discharge Diet: Regular Discharge Activity: Resume usual activity Discharge Attestations NPU Time Spent in Discharge Care*: less than 30 min Specific Discharge Activities: Specific discharge activities: educating patient, discussing with mattress spring encaser/social workers/dc planners, documenting/other paperwork and evaluating patient/reviewing data Coding Level of Care Code Acute Color Making Supervisor for g Fwd Diagnoses Suicidal ideation R45.851 Alcohol intoxication F10.921 Complication of substance-induced condition: with delirium Alcohol abuse F10.10 Posttraumatic stress disorder F43.10 Alcohol use disorder Major depressive disorder F32.9 HIV (human immunodeficiency virus infection) B20
[2020-07-12 13:38] VITALS: PULSE 99
--- NOTE | 2020-07-13 13:47 | PC.RESP ---
SMOKING CESSATION AND PULMONARY REHAB INFORMATION SENT TO PATIENT.
== END 2020-07-12 14:13 | disposition home or self-care (01) | DRG 897 ==
LOC: ER 17:57 → NP 21:42
PROVIDERS: Admitting Provider Psychiatry & Neurology Psychiatry; Emergency Provider Family Medicine; PCP Family Medicine; Visit Provider Psychiatry & Neurology Psychiatry
DX: F10.121 Alcohol abuse with intoxication delirium (principal); R45.851 Suicidal ideations; B20 Human immunodeficiency virus [HIV] disease; J44.9 Chronic obstructive pulmonary disease, unspecified; Z99.81 Dependence on supplemental oxygen; I48.91 Unspecified atrial fibrillation; F32.9 Major depressive disorder, single episode, unspecified; K57.90 Diverticulosis of intestine, part unspecified, without perforation or abscess without bleeding; Z87.11 Personal history of peptic ulcer disease; Z85.72 Personal history of non-Hodgkin lymphomas; Z86.718 Personal history of other venous thrombosis and embolism; Z86.711 Personal history of pulmonary embolism; Z90.79 Acquired absence of other genital organ(s); F17.210 Nicotine dependence, cigarettes, uncomplicated; F43.12 Post-traumatic stress disorder, chronic; Z79.51 Long term (current) use of inhaled steroids; Z79.02 Long term (current) use of antithrombotics/antiplatelets
CPT/HCPCS: 12345; 51701; 80053; 80306; 80307; 81003; 84443; 85025; 94640; 96372; 99284; J3486; J3490; J7626

== ENCOUNTER 2020-09-21 11:08 | Inpatient (IN) | payer MEDICARE, MEDICAID, SELFPAY ==
[2020-09-21] VITALS (75 sets, daily range): BP systolic 100–154; BP diastolic 70–109; PULSE 93–127; RESP 12–23; O2SAT 86–97; BMI 23.0
--- NOTE | 2020-09-21 11:13 | CT_ITS ---
WS: [id number] CT HEAD NONCONTRAST HISTORY: AMS TECHNIQUE: Contiguous axial imaging performed through the brain in 2.5 mm imaging. Bone and soft tiss ue windows. Sagittal and coronal reformats reviewed. All CT scans at [facility] use at le ast one of these dose optimization techniques: automated exposure control; mA and/or kV adjustment pe r patient size (includes targeted exams where dose is matched to clinical indication); or iterative r econstruction. DLP: 870.02 mGy.cm COMPARISON: 04/10/2020 Moderate amount of artifact through the brain. No acute blood products are identified taking into con sideration the artifact. Mild atrophy and mild chronic microvascular ischemic disease. No inferior herniation or midline shift. Ventricles: Normal size with no hydrocephalus. Paranasal sinuses: As visualized are clear. Mastoid air cells: Well pneumatized. Calvarium and scalp: Skull is intact with no soft tissue edema or swelling. Mild intracranial carotid atherosclerosis with ectasia and tortuosity. CT/CT head wo con* [id number] IMPRESSION: 1. No acute intracranial hemorrhage or edema. 2. Mild atrophy and chronic ischemic disease.
--- NOTE | 2020-09-21 11:13 | XRR_ITS ---
PROCEDURE INFORMATION: Exam: XR Chest Exam date and time: 09/21/2020 11:20 AM Age: 60 years old Clinical indication: Cough and dyspnea; Additional info: Dyspnea/cough TECHNIQUE: Imaging protocol: XR of the chest Views: 1 view. COMPARISON: CR XR chest 1V portable [id number] 06/29/2020 9:00 AM FINDINGS: Lungs: Emphysematous change, interstitial prominence, and asymmetric bibasilar airspace disease. Pleural spaces: No significant pleural effusion. Heart/Mediastinum: Epicardial fat, without cardiomegaly. Bones/joints: Mild degenerative change. XR/XR chest 1V portable [id number] IMPRESSION: Emphysematous change, interstitial prominence, and asymmetric bibasilar airspace disease.
--- NOTE | 2020-09-21 11:14 | ECG_ITS ---
[facility] Test Date: 2020-09-21 Pat Name: Flakito Alamnzar Department: Room: Gender: Male Claim Manager: : 1960 Requested By: Glenn Luther Order Number: [id number] Reading MD: ELADIA NIETO Measurements Intervals [place] Rate: 102 P: NC: QRS: 43 QRSD: 92 T: 68 QT: 376 QTc: 490 Interpretive Statements SINUS TACHYCARDIA \ Compared to ECG 04/10/2020 21:04:47 No significant change Electronically Signed On 09-21-2020 19:57:35 THREAD WEAVER by ELADIA NIETO [email or web address]
[2020-09-21 11:40] LABS: ABG PCO2 45.8 mmHg (35-45); ABG PH Result 7.36 (7.35-7.45); Arterial Blood Gas Hematocrit 46.5 % (42-52); Base Excess ABG -0.2 mmol/L (-2.0-2.0); Blood Gas Allen Test Pos; Blood Gas Operator Identificat CAK; Blood Gas Sample Site Brachial, right; Blood Gas Sample Type Arterial; Carboxyhemoglobin 4.4 %THgb (0.4-20.1); HCO3 ABG 25.8 mmol/L (22-26); HGB O2 Sat 87.2 % (95-100); Ionized Calcium Level - ABG 1.1 mmol/L (1.1-1.4); Methemoglobin 0.6 % (0.4-1.5); Oxygen Device NC; Oxygen Saturation ABG 91.8; PO2 ABG 67.2 mmHg (80.0-100.0); Potassium Level - ABG 3.3 mmol/L (3.5-5.0); Total Hemoglobin 15.2 g/dL (14-18)
--- NOTE | 2020-09-21 11:45 | ED_ITS ---
HPI - Altered Mental Status General: Chief Complaint: Altered Mental Status Stated Complaint: ETOH, AMS Time Seen by Provider: 09/21/20 11:13 History of Present Illness: HPI narrative: 60-year-old male with a history of HIV. He is a known history of heavy drinking. He was found unresponsive by PD became combative and required restraints in route he was given 2 mg of Ativan. Family reports he is been drinking heavily heavily recently and also there is report of bright red blood per rectum. Patient is chronically on 4 L by nasal cannula. He has a Glascow coma scale of 12 on arrival here. MD complaint: altered mental status and intoxication Onset (ago): hour(s) Severity: severe Context: alcohol abuse Treatments prior to arrival: IV fluid and oxygen Review of Systems Const: Denies: fever(s), chills, body aches, change in appetite, fatigue or malaise ENMT: Denies: throat pain, ear or mastoid pain, nasal discharge or nasal congestion Card: Denies: chest pain, edema, dyspnea on exertion or orthopnea Resp: Denies: dyspnea, productive cough or non-productive cough GI: Denies: abdominal pain, nausea, vomiting, hematemesis, coffee ground emesis, diarrhea, constipation, bloating, hematochezia or melena : Denies: flank pain, dysuria, urinary frequency or urinary urgency Skin/Breast: Denies: rash or pruritus PFSH ED PFSH: Medical History Anorexia Atrial fibrillation Colon polyps COPD (chronic obstructive pulmonary disease) Severe COPD Depressive disorder Diverticulitis / Diverticulosis GI bleed Was taken off Coumadin for a month in 2015 after a bleeding gastric ulcer, currently on Eliquis History of peptic ulcer disease HIV (human immunodeficiency virus infection) Hypogonadism Liver tumor Lymphoma 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 No evidence of recurrence, currently getting PICK UP DRIVER prophylaxis with intrathecal methotrexate with prophylactic radiation to right testicle, CHOP treatment Meningitis Orchialgia Pulmonary embolism DVT of right leg, 2009 Pulmonary hypertension After PE Surgical History H/O colonoscopy 2001 -diverticulosis, colon polyps / 2005 -diverticulosis, small telangiectasia / 01/2016 -diverticulosis with intrinsic stenosis and sigmoid H/O esophagogastroduodenoscopy 2006 -reflux esophagitis, superficial gastric erosions with hemorrhagic gastritis, duodenitis /2009 -reflux esophagitis, gastritis, small chronic gastric ulcer H/O hemorrhoidectomy History of orchiectomy, unilateral L -- diffuse large B-cell lymphoma Family History Other No pertinent family history Social History Smoking and tobacco status: current every day smoker cigarettes Packs smoked per day: 2 Alcohol intake: current Household members: family Housing: House Physical Exam HENMT: COMMON NORMALS: normocephalic, atraumatic and hearing grossly normal bilaterally HEAD & SCALP: normocephalic and atraumatic Neck/C-Spine: COMMON NORMALS: full ROM, no lymphadenopathy, supple and no JVD Resp: COMMON NORMALS: normal respiratory effort, No retractions, No use of accessory muscles and clear to auscultation bilaterally AUSCULTATION: clear to auscultation bilaterally Cardio: COMMON NORMALS: no JVD, regular rate, regular rhythm and No murmurs present (Cardio) RATE: regular rate RHYTHM: regular rhythm GI: COMMON NORMALS: Soft to palpation and No hepatosplenomegaly present AUSCULTATION: Yes normoactive bowel sounds PALPATION: Yes Soft to palpation, No Tenderness to palpation present (GI), No Guarding due to palpation present (GI) and Yes No hepatosplenomegaly present Extremity: COMMON NORMALS: normal to inspection, capillary refill normal, no clubbing, cyanosis or edema, no calf tenderness and no pedal edema Neuro: CASPER COMA SCALE: document GCS findings Casper coma scale eye opening: To sound Thompson coma scale verbal response: Words Casper coma scale motor response: Obey commands Thompson coma scale total score: 12 Skin: COMMON NORMALS: no rashes or lesions noted GENERAL SKIN EXAM: no rashes or lesions noted Procedures Intubation Time out performed: Yes sedative: Etomidate paralytic: Succinylcholine Laryngoscope: fiber optic video scope Assist Device Used: fiber optic device ET Tube Size: 8.5 ET Tube Uncuffed: No Tube Secured Depth (cm): 22 Tube Secured Location: teeth Tube Placement Confirmation: visualized tube passing through cords, equal breath sounds bilaterally, no breath sounds over epigastrium and confirmation by capnometry Patient Tolerated Procedure: well Intubation Complications: none Course Vital Signs: Vital signs: Vital Signs Temperature 98.7 F 09/25/20 05:25 Pulse Rate 73 09/25/20 06:02 Respiratory Rate 15 09/25/20 06:23 Blood Pressure 115/76 09/25/20 06:00 Pulse Oximetry 92 09/25/20 06:23 MDM - Altered Mental Status MDM Narrative: Medical decision making narrative: Patient has a history of HIV. He is extremely intoxicated with respiratory depression initially we will monitor him his oxygen sats were good however he began to worsen and had difficult time maintaining his oxygen sats increased his oxygen supplemental oxygen to an oxygen mask at 15 L he still is not holding his oxygen sats above 90. Patient became more difficult to arouse and we elected to intubate before he decompensated further. Will admit to the ICU. He appears to have a pneumonia as well. This was started on antibiotics. Lab Data: Labs: Lab Results 09/21/20 09/21/20 09/21/20 Range/Units 11:29 11:39 11:39 WBC 5.3 (4.0-10.0) 10^3/ uL RBC 5.21 (4.1-5.3) 10^6/u L Hgb 16.2 (11.7-16.6) g/dL Hct 49.8 (42.0-52.0) % MCV 95.6 H (80-94) fL MCH 31.1 (28.0-34.0) pg MCHC 32.5 (30.0-36.0) g/dL RDW 13.5 (12.1-15.1) % Plt Count 238 (130-400) 10^3/c mm MPV 8.7 (7.4-10.4) fL Neut % (Auto) 46.9 % Lymph % (Auto) 42.9 % [place] % (Auto) 6.4 % Eos % (Auto) 2.3 % Baso % (Auto) 1.3 % Neut # (Auto) 2.48 (1.8-7.7) 10^3/u L Lymph # (Auto) 2.3 (0.8-4.8) 10^3/u L [place] # (Auto) 0.3 (0.2-0.9) 10^3/u L Eos # (Auto) 0.1 (0.0-0.8) 10^3/u L Baso # (Auto) 0.1 (0.0-0.1) 10^3/u L Nucleated RBC % (a uto) 0 % Nucleated RBCs # 0.0 /100WBC D-Dimer (0-0.59) ug/mIFE U Specimen Type Arterial Sample Site Brachial, right ABG pH 7.36 (7.35-7.45) ABG pCO2 45.8 H (35-45) mmHg ABG pO2 67.2 L (80.0-100.0) mmH g ABG HCO3 25.8 (22-26) mmol/L ABG O2 Saturation 91.8 ABG Base Excess -0.2 (-2.0-2.0) mmol/ L Jean-Paul Test Pos A-a O2 Gradient Not Reportable Hematocrit 46.5 (42-52) % Hgb O2 Saturation 87.2 L (95-100) % Carboxyhemoglobin 4.4 (0.4-20.1) %THgb Methemoglobin 0.6 (0.4-1.5) % Total Hemoglobin 15.2 (14-18) g/dL Sodium 148.0 H (131-143) mmol/L Potassium 3.3 L (3.5-5.0) mmol/L Glucose 103.0 (70-115) mg/dL Ionized Calcium 1.1 (1.1-1.4) mmol/L O2 Delivery Device Nc O2 Liters/Min 5.0 % FiO2 0.0 % Cardiac Tech ID Cak Chloride (98-107) mmol/L Carbon Dioxide (22-29) mmol/L Anion Gap (5-19) BUN (6-20) mg/dL Creatinine (0.7-1.2) mg/dL GFR Calculation (90-130) mL/min Calculated Osmolal ity (285-295) mOsm/k g Lactic Acid (0.5-2.2) mmol/L Lactic Acid (Sepsi s) (0.5-2.2) mmol/L Calcium (8.5-10.5) mg/dL Magnesium (1.7-2.3) mg/dL Total Bilirubin (0.15-1.2) mg/dL AST (0-40) U/L ALT (0-41) U/L Alkaline Phosphata se (40-130) IU/L Ammonia 30 (16-60) umol/L Creatine Kinase (39-308) U/L Troponin T Baselin e (0-15) ng/L Troponin T 120 Min [place] (0-15) ng/L Delta Troponin T (0-10) ABS# NT-Pro-B Natriuret Pep (0-125) pg/mL Total Protein (6.6-8.7) g/dL Albumin (3.5-5.2) g/dL Globulin (1.3-4.6) g/dL Lipase (13-60) U/L Urine Color (Yellow) Urine Appearance (CLEAR) Urine pH (5-7) Ur Specific Gravit y (1.005-1.030) Urine Protein (Negative) Urine Glucose (UA) (Normal) Urine Ketones (Negative) Urine Blood (Negative) Urine Nitrate (Negative) Urine Bilirubin (Negative) Urine Urobilinogen (Negative) mg/dL Ur Leukocyte Dayna ase (Negative) Salicylates (3-10) mg/dL Urine Opiates Scre en (Negative) ng/mL Acetaminophen (10-30) ug/mL Ur Barbiturates Sc reen (Negative) ng/mL Ur Phencyclidine S crn (Negative) ng/mL Ur Amphetamines Sc reen (Negative) ng/mL U Benzodiazepines Scrn (Negative) ng/mL Urine Cocaine Scre en (Negative) ng/mL U Marijuana (THC) Screen (Negative) ng/mL Ethyl Alcohol (0-10) mg/dL Serum Ketones (Negative) 09/21/20 09/21/20 09/21/20 Range/Units 11:39 11:39 11:39 WBC (4.0-10.0) 10^3/ uL RBC (4.1-5.3) 10^6/u L Hgb (11.7-16.6) g/dL Hct (42.0-52.0) % MCV (80-94) fL MCH (28.0-34.0) pg MCHC (30.0-36.0) g/dL RDW (12.1-15.1) % Plt Count (130-400) 10^3/c mm MPV (7.4-10.4) fL Neut % (Auto) % Lymph % (Auto) % [place] % (Auto) % Eos % (Auto) % Baso % (Auto) % Neut # (Auto) (1.8-7.7) 10^3/u L Lymph # (Auto) (0.8-4.8) 10^3/u L [place] # (Auto) (0.2-0.9) 10^3/u L Eos # (Auto) (0.0-0.8) 10^3/u L Baso # (Auto) (0.0-0.1) 10^3/u L Nucleated RBC % (a uto) % Nucleated RBCs # /100WBC D-Dimer (0-0.59) ug/mIFE U Specimen Type Sample Site ABG pH (7.35-7.45) ABG pCO2 (35-45) mmHg ABG pO2 (80.0-100.0) mmH g ABG HCO3 (22-26) mmol/L ABG O2 Saturation ABG Base Excess (-2.0-2.0) mmol/ L Jean-Paul Test A-a O2 Gradient Hematocrit (42-52) % Hgb O2 Saturation (95-100) % Carboxyhemoglobin (0.4-20.1) %THgb Methemoglobin (0.4-1.5) % Total Hemoglobin (14-18) g/dL Sodium 140 (131-143) mmol/L Potassium 3.3 L (3.5-5.0) mmol/L Glucose 91 (70-115) mg/dL Ionized Calcium (1.1-1.4) mmol/L O2 Delivery Device O2 Liters/Min % FiO2 % Cardiac Tech ID Chloride 102 (98-107) mmol/L Carbon Dioxide 24 (22-29) mmol/L Anion Gap 17.3 (5-19) BUN 3 L (6-20) mg/dL Creatinine 0.6 L (0.7-1.2) mg/dL GFR Calculation 137.9 H (90-130) mL/min Calculated Osmolal ity 286 (285-295) mOsm/k g Lactic Acid 2.3 H (0.5-2.2) mmol/L Lactic Acid (Sepsi s) (0.5-2.2) mmol/L Calcium 8.2 L (8.5-10.5) mg/dL Magnesium 2.1 (1.7-2.3) mg/dL Total Bilirubin 0.2 (0.15-1.2) mg/dL AST 25 (0-40) U/L ALT 15 (0-41) U/L Alkaline Phosphata se 128 (40-130) IU/L Ammonia (16-60) umol/L Creatine Kinase 72 (39-308) U/L Troponin T Baselin e (0-15) ng/L Troponin T 120 Min [place] (0-15) ng/L Delta Troponin T (0-10) ABS# NT-Pro-B Natriuret Pep 83 (0-125) pg/mL Total Protein 8.0 (6.6-8.7) g/dL Albumin 4.3 (3.5-5.2) g/dL Globulin 3.7 (1.3-4.6) g/dL Lipase 68 H (13-60) U/L Urine Color (Yellow) Urine Appearance (CLEAR) Urine pH (5-7) Ur Specific Gravit y (1.005-1.030) Urine Protein (Negative) Urine Glucose (UA) (Normal) Urine Ketones (Negative) Urine Blood (Negative) Urine Nitrate (Negative) Urine Bilirubin (Negative) Urine Urobilinogen (Negative) mg/dL Ur Leukocyte Dayna ase (Negative) Salicylates (3-10) mg/dL Urine Opiates Scre en (Negative) ng/mL Acetaminophen (10-30) ug/mL Ur Barbiturates Sc reen (Negative) ng/mL Ur Phencyclidine S crn (Negative) ng/mL Ur Amphetamines Sc reen (Negative) ng/mL U Benzodiazepines Scrn (Negative) ng/mL Urine Cocaine Scre en (Negative) ng/mL U Marijuana (THC) Screen (Negative) ng/mL Ethyl Alcohol 409 H* (0-10) mg/dL Serum Ketones Negative (Negative) 09/21/20 09/21/20 09/21/20 Range/Units 11:39 11:39 11:39 WBC (4.0-10.0) 10^3/ uL RBC (4.1-5.3) 10^6/u L Hgb (11.7-16.6) g/dL Hct (42.0-52.0) % MCV (80-94) fL MCH (28.0-34.0) pg MCHC (30.0-36.0) g/dL RDW (12.1-15.1) % Plt Count (130-400) 10^3/c mm MPV (7.4-10.4) fL Neut % (Auto) % Lymph % (Auto) % [place] % (Auto) % Eos % (Auto) % Baso % (Auto) % Neut # (Auto) (1.8-7.7) 10^3/u L Lymph # (Auto) (0.8-4.8) 10^3/u L [place] # (Auto) (0.2-0.9) 10^3/u L Eos # (Auto) (0.0-0.8) 10^3/u L Baso # (Auto) (0.0-0.1) 10^3/u L Nucleated RBC % (a uto) % Nucleated RBCs # /100WBC D-Dimer 2.37 H (0-0.59) ug/mIFE U Specimen Type Sample Site ABG pH (7.35-7.45) ABG pCO2 (35-45) mmHg ABG pO2 (80.0-100.0) mmH g ABG HCO3 (22-26) mmol/L ABG O2 Saturation ABG Base Excess (-2.0-2.0) mmol/ L Jean-Paul Test A-a O2 Gradient Hematocrit (42-52) % Hgb O2 Saturation (95-100) % Carboxyhemoglobin (0.4-20.1) %THgb Methemoglobin (0.4-1.5) % Total Hemoglobin (14-18) g/dL Sodium (131-143) mmol/L Potassium (3.5-5.0) mmol/L Glucose (70-115) mg/dL Ionized Calcium (1.1-1.4) mmol/L O2 Delivery Device O2 Liters/Min % FiO2 % Cardiac Tech ID Chloride (98-107) mmol/L Carbon Dioxide (22-29) mmol/L Anion Gap (5-19) BUN (6-20) mg/dL Creatinine (0.7-1.2) mg/dL GFR Calculation (90-130) mL/min Calculated Osmolal ity (285-295) mOsm/k g Lactic Acid (0.5-2.2) mmol/L Lactic Acid (Sepsi s) (0.5-2.2) mmol/L Calcium (8.5-10.5) mg/dL Magnesium (1.7-2.3) mg/dL Total Bilirubin (0.15-1.2) mg/dL AST (0-40) U/L ALT (0-41) U/L Alkaline Phosphata se (40-130) IU/L Ammonia (16-60) umol/L Creatine Kinase 72 (39-308) U/L Troponin T Baselin e 19 H (0-15) ng/L Troponin T 120 Min [place] (0-15) ng/L Delta Troponin T (0-10) ABS# NT-Pro-B Natriuret Pep (0-125) pg/mL Total Protein (6.6-8.7) g/dL Albumin (3.5-5.2) g/dL Globulin (1.3-4.6) g/dL Lipase (13-60) U/L Urine Color (Yellow) Urine Appearance (CLEAR) Urine pH (5-7) Ur Specific Gravit y (1.005-1.030) Urine Protein (Negative) Urine Glucose (UA) (Normal) Urine Ketones (Negative) Urine Blood (Negative) Urine Nitrate (Negative) Urine Bilirubin (Negative) Urine Urobilinogen (Negative) mg/dL Ur Leukocyte Dayna ase (Negative) Salicylates < 0.3 L (3-10) mg/dL Urine Opiates Scre en (Negative) ng/mL Acetaminophen < 5.0 L (10-30) ug/mL Ur Barbiturates Sc reen (Negative) ng/mL Ur Phencyclidine S crn (Negative) ng/mL Ur Amphetamines Sc reen (Negative) ng/mL U Benzodiazepines Scrn (Negative) ng/mL Urine Cocaine Scre en (Negative) ng/mL U Marijuana (THC) Screen (Negative) ng/mL Ethyl Alcohol (0-10) mg/dL Serum Ketones (Negative) 09/21/20 09/21/20 09/21/20 Range/Units 11:43 11:43 13:39 WBC (4.0-10.0) 10^3/ uL RBC (4.1-5.3) 10^6/u L Hgb (11.7-16.6) g/dL Hct (42.0-52.0) % MCV (80-94) fL MCH (28.0-34.0) pg MCHC (30.0-36.0) g/dL RDW (12.1-15.1) % Plt Count (130-400) 10^3/c mm MPV (7.4-10.4) fL Neut % (Auto) % Lymph % (Auto) % [place] % (Auto) % Eos % (Auto) % Baso % (Auto) % Neut # (Auto) (1.8-7.7) 10^3/u L Lymph # (Auto) (0.8-4.8) 10^3/u L [place] # (Auto) (0.2-0.9) 10^3/u L Eos # (Auto) (0.0-0.8) 10^3/u L Baso # (Auto) (0.0-0.1) 10^3/u L Nucleated RBC % (a uto) % Nucleated RBCs # /100WBC D-Dimer (0-0.59) ug/mIFE U Specimen Type Sample Site ABG pH (7.35-7.45) ABG pCO2 (35-45) mmHg ABG pO2 (80.0-100.0) mmH g ABG HCO3 (22-26) mmol/L ABG O2 Saturation ABG Base Excess (-2.0-2.0) mmol/ L Jean-Paul Test A-a O2 Gradient Hematocrit (42-52) % Hgb O2 Saturation (95-100) % Carboxyhemoglobin (0.4-20.1) %THgb Methemoglobin (0.4-1.5) % Total Hemoglobin (14-18) g/dL Sodium (131-143) mmol/L Potassium (3.5-5.0) mmol/L Glucose (70-115) mg/dL Ionized Calcium (1.1-1.4) mmol/L O2 Delivery Device O2 Liters/Min % FiO2 % Cardiac Tech ID Chloride (98-107) mmol/L Carbon Dioxide (22-29) mmol/L Anion Gap (5-19) BUN (6-20) mg/dL Creatinine (0.7-1.2) mg/dL GFR Calculation (90-130) mL/min Calculated Osmolal ity (285-295) mOsm/k g Lactic Acid (0.5-2.2) mmol/L Lactic Acid (Sepsi s) (0.5-2.2) mmol/L Calcium (8.5-10.5) mg/dL Magnesium (1.7-2.3) mg/dL Total Bilirubin (0.15-1.2) mg/dL AST (0-40) U/L ALT (0-41) U/L Alkaline Phosphata se (40-130) IU/L Ammonia (16-60) umol/L Creatine Kinase (39-308) U/L Troponin T Baselin e (0-15) ng/L Troponin T 120 Min [place] 18.91 H (0-15) ng/L Delta Troponin T -0.09 L (0-10) ABS# NT-Pro-B Natriuret Pep (0-125) pg/mL Total Protein (6.6-8.7) g/dL Albumin (3.5-5.2) g/dL Globulin (1.3-4.6) g/dL Lipase (13-60) U/L Urine Color Straw (Yellow) Urine Appearance Clear (CLEAR) Urine pH 6 (5-7) Ur Specific Gravit y 1.010 (1.005-1.030) Urine Protein Neg (Negative) Urine Glucose (UA) Norm (Normal) Urine Ketones Negative (Negative) Urine Blood Neg (Negative) Urine Nitrate Negative (Negative) Urine Bilirubin Neg (Negative) Urine Urobilinogen Norm (Negative) mg/dL Ur Leukocyte Dayna ase Negative (Negative) Salicylates (3-10) mg/dL Urine Opiates Scre en Negative (Negative) ng/mL Acetaminophen (10-30) ug/mL Ur Barbiturates Sc reen Negative (Negative) ng/mL Ur Phencyclidine S crn Negative (Negative) ng/mL Ur Amphetamines Sc reen Negative (Negative) ng/mL U Benzodiazepines Scrn Negative (Negative) ng/mL Urine Cocaine Scre en Negative (Negative) ng/mL U Marijuana (THC) Screen Negative (Negative) ng/mL Ethyl Alcohol (0-10) mg/dL Serum Ketones (Negative) 09/21/20 Range/Units 13:39 WBC (4.0-10.0) 10^3/ uL RBC (4.1-5.3) 10^6/u L Hgb (11.7-16.6) g/dL Hct (42.0-52.0) % MCV (80-94) fL MCH (28.0-34.0) pg MCHC (30.0-36.0) g/dL RDW (12.1-15.1) % Plt Count (130-400) 10^3/c mm MPV (7.4-10.4) fL Neut % (Auto) % Lymph % (Auto) % [place] % (Auto) % Eos % (Auto) % Baso % (Auto) % Neut # (Auto) (1.8-7.7) 10^3/u L Lymph # (Auto) (0.8-4.8) 10^3/u L [place] # (Auto) (0.2-0.9) 10^3/u L Eos # (Auto) (0.0-0.8) 10^3/u L Baso # (Auto) (0.0-0.1) 10^3/u L Nucleated RBC % (a uto) % Nucleated RBCs # /100WBC D-Dimer (0-0.59) ug/mIFE U Specimen Type Sample Site ABG pH (7.35-7.45) ABG pCO2 (35-45) mmHg ABG pO2 (80.0-100.0) mmH g ABG HCO3 (22-26) mmol/L ABG O2 Saturation ABG Base Excess (-2.0-2.0) mmol/ L Jean-Paul Test A-a O2 Gradient Hematocrit (42-52) % Hgb O2 Saturation (95-100) % Carboxyhemoglobin (0.4-20.1) %THgb Methemoglobin (0.4-1.5) % Total Hemoglobin (14-18) g/dL Sodium (131-143) mmol/L Potassium (3.5-5.0) mmol/L Glucose (70-115) mg/dL Ionized Calcium (1.1-1.4) mmol/L O2 Delivery Device O2 Liters/Min % FiO2 % Cardiac Tech ID Chloride (98-107) mmol/L Carbon Dioxide (22-29) mmol/L Anion Gap (5-19) BUN (6-20) mg/dL Creatinine (0.7-1.2) mg/dL GFR Calculation (90-130) mL/min Calculated Osmolal ity (285-295) mOsm/k g Lactic Acid (0.5-2.2) mmol/L Lactic Acid (Sepsi s) 2.7 H (0.5-2.2) mmol/L Calcium (8.5-10.5) mg/dL Magnesium (1.7-2.3) mg/dL Total Bilirubin (0.15-1.2) mg/dL AST (0-40) U/L ALT (0-41) U/L Alkaline Phosphata se (40-130) IU/L Ammonia (16-60) umol/L Creatine Kinase (39-308) U/L Troponin T Baselin e (0-15) ng/L Troponin T 120 Min [place] (0-15) ng/L Delta Troponin T (0-10) ABS# NT-Pro-B Natriuret Pep (0-125) pg/mL Total Protein (6.6-8.7) g/dL Albumin (3.5-5.2) g/dL Globulin (1.3-4.6) g/dL Lipase (13-60) U/L Urine Color (Yellow) Urine Appearance (CLEAR) Urine pH (5-7) Ur Specific Gravit y (1.005-1.030) Urine Protein (Negative) Urine Glucose (UA) (Normal) Urine Ketones (Negative) Urine Blood (Negative) Urine Nitrate (Negative) Urine Bilirubin (Negative) Urine Urobilinogen (Negative) mg/dL Ur Leukocyte Dayna ase (Negative) Salicylates (3-10) mg/dL Urine Opiates Scre en (Negative) ng/mL Acetaminophen (10-30) ug/mL Ur Barbiturates Sc reen (Negative) ng/mL Ur Phencyclidine S crn (Negative) ng/mL Ur Amphetamines Sc reen (Negative) ng/mL U Benzodiazepines Scrn (Negative) ng/mL Urine Cocaine Scre en (Negative) ng/mL U Marijuana (THC) Screen (Negative) ng/mL Ethyl Alcohol (0-10) mg/dL Serum Ketones (Negative) Discharge Plan Discharge Patient Disposition: Admitted As Inpatient Admit Provider: Carlos Richards Clinical Impression: Acute on chronic respiratory failure with hypoxia and hypercapnia, Alcohol intoxication, Community acquired pneumonia, COPD exacerbation, Lactic acidosis, HIV (human immunodeficiency virus infection) Condition: Stable Coding Level of Care Code ED Hat Block Maker for Osmin Fwisra Exam Problem Focused
[2020-09-21 11:47] LABS: Add Urine Microscopic? NO
[2020-09-21 11:52] LABS: Basophils # 0.1 10^3/uL (0.0-0.1); Basophils % 1.3 %; Eosinophils # 0.1 10^3/uL (0.0-0.8); Eosinophils % 2.3 %; Hematocrit 49.8 % (42.0-52.0); Hemoglobin 16.2 g/dL (11.7-16.6); Lymphocytes # 2.3 10^3/uL (0.8-4.8); Lymphocytes % 42.9 %; Mean Corpuscular HGB Conc 32.5 g/dL (30.0-36.0); Mean Corpuscular Hemoglobin 31.1 pg (28.0-34.0); Mean Corpuscular Volume 95.6 fL (80-94); Mean Platelet Volume 8.7 fL (7.4-10.4); Monocytes # 0.3 10^3/uL (0.2-0.9); Monocytes % 6.4 %; Neutrophils # 2.48 10^3/uL (1.8-7.7); Neutrophils % 46.9 %; Nucleated Red Blood Cells % 0 %; Platelet Count 238 10^3/cmm (130-400); Red Blood Count 5.21 10^6/uL (4.1-5.3); Red Cell Distribution Width 13.5 % (12.1-15.1); White Blood Count 5.3 10^3/uL (4.0-10.0)
[2020-09-21 12:07] LABS: Amphetamines Screen Urine Negative (Negative); Barbiturates Screen Urine Negative (Negative); Benzodiazepines Screen Urine Negative (Negative); Cocaine Screen Urine Negative (Negative); Opiate Screen Urine Negative (Negative); PCP Screen Urine Negative (Negative); THC Screen Urine Negative (Negative)
[2020-09-21 12:10] LABS: Bilirubin Urine Neg (Negative); Blood Urine Neg (Negative); Glucose Urine UA Norm (Normal); Ketones Urine Negative (Negative); Leukocyte Esterase Urine Negative (Negative); Nitrate Urine Negative (Negative); Protein Urine Neg (Negative); Urine Appearance Clear (CLEAR); Urine Color Straw (Yellow); Urobilinogen Urine Norm (Negative); pH Urine 6 (5-7)
[2020-09-21 12:18] LABS: Ammonia 30 umol/L (16-60)
[2020-09-21] MEDS: piperacillin-tazobactam 3.375 GM in sodium chloride 0.9% (plus) 50 ML IV ×2 (12:20→21:28)
[2020-09-21] MEDS: sodium chloride 0.9% 1,000 ML 999 ML IV (12:21)
[2020-09-21] MEDS: levofloxacin-dextrose 5 % 750 MG/150 ML PREMIX 100 MG IV (12:21)
[2020-09-21 12:24] LABS: Lactic Sepsis W/Reflex 2.3 mmol/L (0.5-2.2)
[2020-09-21 12:26] LABS: Troponin(5th) Baseline 19 ng/L (0-15)
[2020-09-21 12:34] LABS: Alanine Aminotransferase 15 U/L (0-41); Albumin Level 4.3 g/dL (3.5-5.2); Alkaline Phosphatase 128 IU/L (40-130); Anion Gap 17.3 (5-19); Aspartate Amino Transferase 25 U/L (0-40); Blood Urea Nitrogen 3 mg/dL (6-20); Calcium 8.2 mg/dL (8.5-10.5); Carbon Dioxide 24 mmol/L (22-29); Chloride 102 mmol/L (98-107); Creatine Phosphokinase 72 U/L (39-308); Globulin 3.7 g/dL (1.3-4.6); Glomerular Filtration Rate 137.9 mL/min (90-130); Glucose 91 mg/dL (65-115); Lipase 68 U/L (13-60); Magnesium 2.1 mg/dL (1.7-2.3); NT Pro B Type Natriuretic Pept 83 pg/mL (0-125); Osmolality Calculated 286 mOsm/kg (285-295); Potassium 3.3 mmol/L (3.5-5.1); Sodium 140 mmol/L (136-145); Total Bilirubin 0.2 mg/dL (0.15-1.2)
[2020-09-21 12:35] LABS: Creatinine Clr Calc Pharmacy 145.1333
[2020-09-21 12:36] LABS: Alcohol Level 409 mg/dL (0-10)
[2020-09-21] MEDS: LORazepam 2 mg/mL INJ 1 mL IVP (12:54)
[2020-09-21 12:58] LABS: Ketone (Acetest) Serum Negative (Negative)
--- NOTE | 2020-09-21 13:14 | ECG_ITS ---
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
[2020-09-21] MEDS: folic acid 1 MG, multivitamin inj 10 ML, thiamine 100 MG in sodium chloride 0.9% 1,000 ML 252.8 MG IV (13:29)
--- NOTE | 2020-09-21 13:35 | PC.PHAR ---
PT UNABLE TO VERIFY MEDICATIONS-PT BROUGHT IN SOME MEDICATION BOTTLES-MEDICATIONS ENTERED FROM EXT MED HISTORY AND MEDICATION BOTTLES BROUGHT IN -EVERYTHING IS NOTED IN THE PHARMACY COMMENTS
[2020-09-21 13:36] LABS: Reflex Lactate Order REFLEX LACTIC ORDERD
[2020-09-21] MEDS: succinylcholine 20 mg/mL SDV 10mL 100 MG IVP (13:55)
[2020-09-21] MEDS: vecuronium 10 mg SDV IVP ×2 (14:10→18:24)
--- NOTE | 2020-09-21 14:21 | PC.NURSE ---
Pt was intubated by Dr Dan at 1356. See MAR for medication times. Pt intubated with 8.5Fr ETT, 24 at the lip. Vent settings as follows: TV 500, RR 15, FiO2 100%, PEEP 8. 14Fr OG placed at 1420. See VS flowsheet.
--- NOTE | 2020-09-21 14:27 | XRR_ITS ---
PROCEDURE INFORMATION: Exam: XR Chest Exam date and time: 09/21/2020 2:30 PM Age: 60 years old Clinical indication: Device placement; Ett placement (vent status); Additional info: Post-intubation TECHNIQUE: Imaging protocol: XR of the chest Views: 1 view. COMPARISON: CR XR chest 1V portable [id number] 09/21/2020 11:44 AM FINDINGS: Tubes, catheters and devices: Endotracheal tube terminates 9.5 cm above the cheng. Feeding tube courses into the proximal stomach. Lungs: COPD, interstitial disease, and asymmetric basilar airspace disease. Pleural spaces: No significant pleural effusion or pneumothorax. Heart/Mediastinum: No cardiomegaly. Bones/joints: Degenerative change. XR/XR chest 1V portable [id number] IMPRESSION: Endotracheal tube terminates 9.5 cm above the cheng. Feeding tube courses into the proximal stomach.
[2020-09-21 14:43] LABS: Lactic Acid level (Lactate) 2.7 mmol/L (0.5-2.2)
[2020-09-21 14:46] LABS: Troponin 5 2HR 18.91 ng/L (0-15)
[2020-09-21 14:53] LABS: Troponin 5 2HR Delta -0.09 ABS# (0-10)
[2020-09-21 15:10] LABS: ABG PCO2 51.2 mmHg (35-45); ABG PH Result 7.29 (7.35-7.45); Arterial Blood Gas Hematocrit 44.7 % (42-52); Blood Gas Allen Test Pos; Blood Gas Sample Type Arterial; Carboxyhemoglobin 2.6 %THgb (0.4-20.1); HCO3 ABG 24.3 mmol/L (22-26); HGB O2 Sat 94.9 % (95-100); Methemoglobin 0.8 % (0.4-1.5); Oxygen Saturation ABG 98.2; Potassium Level - ABG 3.4 mmol/L (3.5-5.0); Total Hemoglobin 14.6 g/dL (14-18)
[2020-09-21 15:12] LABS: Alveolar-Arterial Oxygen Gradi 68.9 mmHg (5-10); Blood Gas Operator Identificat ED; Blood Gas Sample Site Radial, right; Oxygen Device VENT
[2020-09-21 15:31] LABS: SARS Covid-2 Antigen Negative (Negative)
--- NOTE | 2020-09-21 17:14 | ECG_ITS ---
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
--- NOTE | 2020-09-21 17:31 | XR_ITS ---
WS: [id number] Portable AP semiupright chest, 09/21/2020, 1741 hours. Clinical Data: after ETT position adj Comparison: Portable chest, 09/21/2020 Findings: The endotracheal tube and oral gastric tube remain in good position. There is bibasilar ate lectasis. The heart size is normal. No pneumothorax is present. The aortic arch and descending aorta are tortuous. Monitor leads are on the chest wall. XR/XR chest 1V portable [id number] Impression: Satisfactory position of oral gastric tube and endotracheal tube.
--- NOTE | 2020-09-21 18:00 | P.HP_ITS ---
Providers/Chief Complaint Admitting Physician: Carlos Richards Primary Care Provider: Rasheed Spivey MD Chief Complaint: ETOH, AMS History of Present Illness 60-year-old gentleman was found unresponsive at home after family concerned called EMS, with history alcoholism, HIV. In route to emergency department became combative, requiring 2 mg Ativan and restraints. He reportedly is on 4 L chronic nasal cannula oxygen due to COPD. Per family he has been drinking heavily recently. There is also report of BRBPR. In ER he is noted hypoxic, becoming restless, with hypoxia requiring 15 L oxygen by nonrebreather, although with confusion pulling off oxygen mask. With restlessness, inability to tolerate oxygen support required intubation with mechanical ventilation support and sedation. In ER he empirically received Levaquin and Zosyn. 1 L normal saline bolus. Intubated using succinylcholine, vecuronium premedication, Ativan. He is started on banana bag. Currently sedation with fentanyl, Versed. Maintaining blood pressure. Saturations in low 90s with FiO2 80%, PEEP of 8. Respiratory rate 14. No apparent vent dyssynchrony. VT 500. In ER he is afebrile, without leukocytosis. ABG 7.29/51.2/123. Sodium 140, potassium 3.3. Bicarbonate 24. Anion gap 17.3. BUN 30, creatinine 0.6. Lactic acid 2.3-2.7 calcium 8.2. Albumin 4.3. Lipase 68. Troponin baseline 19, 2-hour 18.91. Urinalysis unremarkable. Urine drug screen unremarkable apart from ethyl alcohol 409. Rapid COVID-19 negative. Chest x-ray with emphysema, interstitial prominence, as symmetric bibasilar airspace disease. CT head without acute intracranial hemorrhage or edema. Mild atrophy and chronic ischemic disease. Discussing with his mother, she states he has been drinking quite a bit. He has been hoarse for several days losing his voice. She denies that he complained of fevers, chills. He did receive 1 dose of coronavirus vaccine. Was supposed to be getting second dose possibly today. Blood on the floor and near the oxygen tank noted by mother today, as if it was coughed up, and pt reported repored possibly passing blood in stool. Not reporting hematemesis. Mother states they also found some feces on the floor, although she is not sure whether they are the patient's, or his friend's. Mother states that the person who is supposed to be helping him out at home thro [facility] independent living and also patient's friend, Abdoul Nowak reported that yesterday patient took an unclear amount of Viagra pills yesterday while intoxicated and possibly trying to harm himself, and that he may have taken more of unspecified medications today, although the patient's mother is not sure whether she is able to trust his reports, she did not find any medications around where the patient was found, and the person himself was also intoxicated at the time of staying with the patient, as well as reported intoxicated today. I could not reach him on his phone # [phone], and his voicemail is not set up. For HIV follows with ID Dr Spivey, for COPD, pulmonary hypertension with Dr Junior pulmonary medicine, both at [facility]. Attended rehab 30 days less than a year ago and reportedly did stop drinking as well, however, subsequently relapsed again. Review of Systems Narrative: Patient intubated, sedated after being restless and confused, unable to provide history or review of systems. This was obtained partially from ER staff, partially from his mother. Const: Reports: fever(s) ENMT: Denies: throat pain, oral sores or ear or mastoid pain Card: Denies: chest pain, edema, pre-syncope or dyspnea on exertion Resp: Denies: dyspnea, productive cough, change in phlegm color or hemoptysis GI: Denies: abdominal pain, nausea, vomiting, diarrhea, constipation, he matochezia or melena : Denies: flank pain, difficulty urinating, urinary frequency or hematuria Musc: Denies: back pain, joint swelling or joint redness Skin/Breast: Denies: rash, sores or new lesions Neuro: Denies: headache(s), numbness in extremities, weakness in extremities, dizziness, confusion or seizure-like activity Endo: Denies: polyuria or polydipsia Obey/Lymph: Denies: easy bleeding or purpura All/Imm: Denies: urticaria, throat swelling or tongue swelling Medications/Allergies Home Medications Medication Instructions Recorded Confirmed Last Taken Type potassium chloride 20 mEq 20 meq PO BID@07/21/19 09/21/20 06/29/20 History tablet,extended release(part/cryst) mirtazapine 15 mg PO BEDTIME #30 tab 01/27/20 09/21/20 Unknown Rx Dovato 1 tab PO DAILY@04/11/20 09/21/20 06/29/20 07:00 History alprazolam 0.25 mg PO TID PRN 04/11/20 09/21/20 06/28/20 History hydroxyzine HCl 10 mg PO BID 04/11/20 09/21/20 Unknown History sildenafil (pulm.hypertension) 20 mg PO TID 04/11/20 09/21/20 Unknown History testosterone See Rx Instructions .ROUTE .COMPLEX 04/11/20 09/21/20 Unknown History Eliquis 5 mg PO BID@06/29/20 09/21/20 06/29/20 History Opsumit 10 mg PO DAILY@06/29/20 09/21/20 06/29/20 History albuterol sulfate 2 inh INHALATION Q4H PRN #18 gm 06/29/20 09/21/20 Unknown Rx diltiazem HCl 240 mg PO DAILY@06/29/20 09/21/20 06/29/20 07:00 History fluconazole 100 mg PO DAILY@06/29/20 09/21/20 06/28/20 History multivitamin 1 tab PO DAILY 06/29/20 09/21/20 Unknown History pantoprazole 40 mg PO DAILY@06/29/20 09/21/20 Unknown History sulfamethoxazole-trimethoprim 1 tab PO MOWEFR@06/29/20 09/21/20 Unknown History trazodone 300 mg PO DAILY@06/29/20 09/21/20 Unknown History acetaminophen [Tylenol Extra 500 - 1,000 mg PO PRN 09/21/20 09/21/20 Unknown History Strength] budesonide-formoterol [Symbicort] 2 puff INHALATION BID 09/21/20 09/21/20 Unknown History folic acid 1 mg PO DAILY 09/21/20 09/21/20 Unknown History Allergies Allergy/AdvReac Type Severity Reaction Status Date / Time No Known Allergies Allergy Verified 06/29/20 09:44 PFSH Acute PFSH: Medical History Anorexia Atrial fibrillation Colon polyps COPD (chronic obstructive pulmonary disease) Severe COPD Depressive disorder Diverticulitis / Diverticulosis GI bleed Was taken off Coumadin for a month in 2015 after a bleeding gastric ulcer, currently on Eliquis History of peptic ulcer disease HIV (human immunodeficiency virus infection) Hypogonadism Liver tumor Lymphoma 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 No evidence of recurrence, currently getting TU[employer] 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 prophylaxis with intrathecal methotrexate with prophylactic radiation to right testicle, CHOP treatment Meningitis Orchialgia Pulmonary embolism DVT of right leg, 2009 Pulmonary hypertension After PE Surgical History H/O colonoscopy 2001 -diverticulosis, colon polyps / 2005 -diverticulosis, small telangiectasia / 01/2016 -diverticulosis with intrinsic stenosis and sigmoid H/O esophagogastroduodenoscopy 2005 -reflux esophagitis, superficial gastric erosions with hemorrhagic gastritis, duodenitis /2008 -reflux esophagitis, gastritis, small chronic gastric ulcer H/O hemorrhoidectomy History of orchiectomy, unilateral L -- diffuse large B-cell lymphoma Family History Other No pertinent family history Social History Smoking and tobacco status: current every day smoker cigarettes Packs smoked per day: 2 Alcohol intake: current Household members: family Housing: House Vitals/I&O/Wt Last Vital Signs Pulse 105 H 09/21/20 17:00 Resp 13 09/21/20 17:00 BP 109/78 09/21/20 17:00 Pulse Ox 92 09/21/20 17:00 09/21/20 09/21/20 09/21/20 06:59 14:59 22:59 Intake Total 1150 / 1150 59.408 / 1209.408 Output Total 1450 / 1450 Balance -300 / -300 59.408 / -240.592 Weight last 48 hrs Weight 77.111 kg Physical Exam Const: COMMON NORMALS: no acute distress OTHER: Intubated, sedated. HENMT: COMMON NORMALS: oropharynx normal Eye: OTHER: Symmetrical, pinpoint pupils while on fentanyl for sedation. Neck/C-Spine: COMMON NORMALS: no JVD Resp: COMMON NORMALS: normal respiratory effort AUSCULTATION: diminished lung sounds Cardio: COMMON NORMALS: no JVD, regular rhythm, S1 normal heart sound present, S2 normal heart sound present and No murmurs present (Cardio) RHYTHM: regular rhythm HEART SOUNDS: S1 normal heart sound present and S2 normal heart sound present GI: COMMON NORMALS: Normal to inspection, nondistended, normoactive bowel sounds present, Soft to palpation and non-tender PALPATION: Yes Soft to palpation Extremity: COMMON NORMALS: no joint enlargement and no pedal edema Neuro: COMMON NORMALS: moves all extremities; negative for patient oriented x3 Skin: COMMON NORMALS: no rashes or lesions noted GENERAL SKIN EXAM: no ra shes or lesions noted Urinary Catheter Management^: Barba: Cath Placed During This Visit: yes Urinary Catheter Date of Insertion: 09/21/20 Urinary Catheter Time of Insertion: 13:14 Data : 09/21/20 11:39 09/21/20 11:39 Micro: Microbiology 09/21/20 14:00 Gram Stain - Final Sputum - Endotracheal Wash 09/21/20 11:39 Blood Culture - Preliminary Blood SPECIMEN COLLECTED 09/21/20 11:39 Blood Culture - Preliminary Blood SPECIMEN COLLECTED A&P Assessment and plan (1) Acute encephalopathy: Found confused at home, intoxicated, in ER restless, on the way combative, requiring Ativan, restraints and EMS. In ER hypoxic, not maintaining oxygen mask on, pulling it off, desaturating, required intubation, mechanical ventil ator support, sedation. Alcohol intoxication. Will provide supportive care. Monitor for withdrawal. He is receiving banana bag currently. Continue vitamin supplementation, Ativan per [facility] protocol. There are vague reports that he may have also overdosed on medication, possibly intentionally, in an intoxicated state took a number of Viagra tablets at the same time, although he reports. Not very reliable, coming from third person who we cannot reach, that person appears to be intoxicated at the same time with the patient. Additional report of possible additional surreptitious medication intake this morning. Discussed with poison control. Hypotension, tachycardia to be watched for with large shoulders. Sometimes rhabdomyolysis. Report of seizure. He has had no seizure-like activity. Will monitor. At lower doses vomiting, blurred vision reported. Attempted peak plasma 60 minutes, half-life 3-5 hours, he does not appear to be exhibiting hypotension, has been mildly to moderately tachycardic with sinus tachycardia. Continue supportive care. He will need psychiatric evaluation once he is able to speak with him. Status: Acute (2) Alcohol intoxication: At the alcohol 409 mg/dL on urine toxicology. Require intubation, sedation due to confusion, or sepsis. Will provide supportive care, sedation, mechanical ventilatory support. Monitor for withdrawal. Provide vitamin supplementation. Unfortunately appears to be recurrent issue for him. Previously spent 30 days in rehabilitation and appears did temporarily improve, but relapsed again. Mother unsuccessfully try to help him to set up with Alcoholics Anonymous. Status: Acute (3) Acute on chronic respiratory failure with hypoxia and hypercapnia: This appears may be multifactorial, with COPD exacerbation, also hypercapnia likely secondary to acute encephalopathy, hypoxia secondary to severe COPD, with chronic hypoxia requiring 4 L, now with exacerbation, and also possible pneumonia with interstitial prominence, asymmetric bibasilar airspace disease. Mechanical ventilatory support. Treat as below. Discussed with his mother, also has history of PE, on chronic anticoagulation, but recently has had some concern of possible BRBPR, and so not entirely known, but suspicion is that he may have discontinued taking Eliquis. PE does is a possibility. For now empirically continue tribulation with heparin drip, monitor hemoglobin. Will request D-dimer. ET tube noted 9.5 cm from cheng. Discussed with RT who will reposition the tub e with repeat chest x-ray ordered. Noted underlying pulmonary hypertension. Medication cannot be crushed. Status: Acute (4) Community acquired pneumonia: Continue Zosyn, Levaquin. Obtain sputum cultures. Blood cultures. COVID-19 PCR. Rapid flu. Status: Acute (5) COPD exacerbation: Solumedrol, Abx as above. Dupneb. Status: Acute (6) Lactic acidosis: Likely secondary to alcohol intoxication, respiratory failure. Unknown if has history of cirrhosis. Status: Acute (7) Depression: Mother states recently depressed, has not expressed suicidal ideation, but question is of possible deliberate medication overdose possibly witnessed by a friend who is also his independent living caregiver, although this person was reported intoxicated at the time as well. Status: Acute (8) Deliberate medication overdose: Report by independent living caregiver and patient's friend Abdoul Dia given to patient's mother regarding patient taking an unspecified amount of Viagra pills from his bottle at the same time yesterday, while intoxicated. Report of possible additional surreptitious medication intake this morning, again while intoxicated. Mother states that no medications were found around the patient where he was. She is not sure whether this in fact happened. She states that details could not be obtained from patient's friend as he himself was intoxicated. Appears he is also intoxicated today when her daughter tried to reach and discussed with him today. I try to call him on the phone number provided [phone], but could not reach him, and voicemail is not set up. We will have to confirm with patient once he is able to communicate. He will need psychiatric evaluation prior to discharge. Status: Acute (9) Suicide attempt: Report of possible suicide attempt as above. Status: Acute (10) HIV (human immunodeficiency virus infection): Mother states he follows with ID clinic in [place]. Takes the bottle. Chronically on empiric Bactrim. Dates his counts have most recently been undetectable. Mother will bring the medication. Status: Chronic (11) History of peptic ulcer disease: History of hematemesis reported in the past. Mother states he has had EGD in the past, although is not sure how long ago, does not think he has had a recent one. She is not aware of history of esophageal or gastric varicose veins. Takes PPI at home. Status: Acute (12) Hemoptysis: Reported small amount of blood found on the floor near oxygen tank, unclear whether this was coughed up, but appeared to be perhaps with some s putum. Mother does say that they found some feces on the floor as well, although unclear whether either were belonging to the patient or his friend. Monitor for any bloody secretions. For now empirically anticoagulation with heparin drip rather than Eliquis as discussed with mother so it may be rapidly discontinued in case of any active bleeding. Hemoglobin appears to be close to baseline. Monitor. Status: Acute (13) Hematochezia: Monitor hemoglobin. Discussed with pharmacy will initiate IV Protonix twice daily 40 mg. Monitor for bleeding. For now empiric anticoagulation with heparin drip to allow rapid discontinuation/reversal in case of need. Status: Acute (14) Troponin level elevated: Mild elevation of troponin, without peak, follow-up complete troponin EKG series. Sinus tachycardia noted on presentation. Discussed with mother again cannot entirely exclude PE given history, unclear whether he was taking blood thinners. He did not have chest pain. EKG not suggestive of acute ischemia. Suspect this is likely demand, possibly from acute hypoxic and hypercapnic respiratory failure. Status: Acute (15) Serum lipase elevation: Incidentally noted mildly elevated lipase at 68. Will reassess. Status: Acute Attestations Medical Necessity Statement*: Admission of over 2 midnights is continued for assessment and management of acute encephalopathy, respiratory failure, required mechanical ventilator support, possible overdose, severe alcohol intoxication, possible GI bleeding, in setting of history of HIV, and other comorbid disease noted. Critical Care Time: 75 minutes critical care time spent on assessment management of immediately life-threatening issues including acute respiratory failure, with assessment of management of underlying conditions, and encephalopathy, possible medication overdose, additional investigation discussion with the family, poison control, also with possible GI bleeding, with respiratory, possible PE, with history of VTE, with chronic anticoagulation, discussion with nursing staff, pharmacy, respiratory therapy and family. Coding Level of Care Code Acute Shirt Sewer for [facility] Fwd Diagnoses Acute encephalopathy G93.40 Alcohol intoxication F10.929 Acute on chronic respiratory failure with hypoxia and hypercapnia J96.21; J96.22 Community acquired pneumonia J18.9 COPD exacerbation J44.1 Lactic acidosis E87.2 Depression F32.9 Deliberate medication overdose T50.902A Suicide attempt T14.91XA HIV (human immunodeficiency virus infection) B20 History of peptic ulcer disease Z87.11 Hemoptysis R04.2 Hematochezia K92.1 Troponin level elevated R77.8 Serum lipase elevation R74.8
[2020-09-21] MEDS: LORazepam 2 mg/mL INJ 1 mL 4 MG IVP (18:25)
[2020-09-21] MEDS: heparin drip 25,000 UNIT/500 ML PREMIX 33.9 UNIT IV (18:43)
[2020-09-21 19:07] LABS: Troponin 5 6HR 16.67 ng/L (0-15)
[2020-09-21 19:08] LABS: Troponin 5 6HR Delta -2.33 ng/L (0-12)
[2020-09-21 19:50] LABS: Influenza A by IFA Negative (Negative); Influenza B by IFA Negative (Negative)
[2020-09-21 20:07] LABS: D Dimer 2.37 ug/mIFEU (0-0.59)
[2020-09-21 21:06] LABS: Creatine Phosphokinase 72 U/L (39-308)
[2020-09-21 21:12] LABS: Acetaminophen < 5.0 ug/mL (10-30); Salicylate < 0.3 mg/dL (3-10)
[2020-09-21] MEDS: pantoprazole 40 mg SDV IV (21:28)
[2020-09-21] MEDS: ipratropium-albuterol 3 mL Neb INHALATION (21:29)
[2020-09-21 21:59] LABS: ABG PCO2 43.6 mmHg (35-45); ABG PH Result 7.32 (7.35-7.45); Alveolar-Arterial Oxygen Gradi 2.6 mmHg (5-10); Arterial Blood Gas Hematocrit 45.6 % (42-52); Base Excess ABG -3.9 mmol/L (-2.0-2.0); Blood Gas Allen Test Pos; Blood Gas Sample Type Arterial; Carboxyhemoglobin 1.3 %THgb (0.4-20.1); HCO3 ABG 22.3 mmol/L (22-26); HGB O2 Sat 92.1 % (95-100); Ionized Calcium Level - ABG 1.1 mmol/L (1.1-1.4); Methemoglobin 0.8 % (0.4-1.5); Oxygen Saturation ABG 94.1; PO2 ABG 76.1 mmHg (80.0-100.0); Potassium Level - ABG 3.4 mmol/L (3.5-5.0); Total Hemoglobin 14.9 g/dL (14-18)
[2020-09-22] VITALS (185 sets, daily range): BP systolic 90–181; BP diastolic 60–116; PULSE 75–117; RESP 14–21; TEMP 36.3–36.4; O2SAT 92–99
[2020-09-22 00:34] LABS: Partial Thromboplastin Time 45.2 SECONDS (23.9-36.7)
[2020-09-22] MEDS: LORazepam 2 mg/mL INJ 1 mL IM (00:38)
[2020-09-22] MEDS: ipratropium-albuterol 3 mL Neb INHALATION ×6 (00:43→20:38)
[2020-09-22] MEDS: heparin 5,000 unit/mL INJ 1 mL IV (01:00)
--- NOTE | 2020-09-22 02:52 | PC.NURSE ---
Upon arrival from ER at 2014, heparin drip was running at 22 ml/hr. Per the Heparin protocol the infusion should be at 33.9 ml/hr. After the PTT paper work calculations completed the dose was corrected off the original rate of 22 ml/hr. Current rate is 24 ml/hr.
[2020-09-22] MEDS: piperacillin-tazobactam 3.375 GM in sodium chloride 0.9% (plus) 50 ML IV ×3 (03:56→20:37)
[2020-09-22 05:05] LABS: ABG PH Result 7.32 (7.35-7.45); Arterial Blood Gas Hematocrit 44.4 % (42-52); Base Excess ABG -1.6 mmol/L (-2.0-2.0); Blood Gas Allen Test Pos; Blood Gas Operator Identificat JB; Blood Gas Sample Site Brachial, right; Blood Gas Sample Type Arterial; HCO3 ABG 25.2 mmol/L (22-26); Oxygen Device VENT
[2020-09-22] MEDS: LORazepam 2 mg/mL INJ 1 mL IVP ×2 (05:38→08:43)
--- NOTE | 2020-09-22 06:00 | XR_ITS ---
WS: [id number] Portable AP semiupright chest, 09/22/2020 Clinical Data: Hypoxia Comparison: Portable chest, 09/21/2020 Findings: The bibasilar atelectasis remains the same. Endotracheal tube and nasogastric tube remain i n good position. The aortic arch and descending aorta are tortuous. There are monitor leads on the ch est wall. XR/XR chest 1V portable [id number] Impression: 1. No change in position of endotracheal tube and nasogastric tube. 2. No change in bibasilar atelectasis.
[2020-09-22 06:54] LABS: Basophils % 0.3 %; Hematocrit 41.5 % (42.0-52.0); Hemoglobin 13.5 g/dL (11.7-16.6); Lymphocytes # 0.4 10^3/uL (0.8-4.8); Lymphocytes % 6.1 %; Mean Corpuscular HGB Conc 32.5 g/dL (30.0-36.0); Mean Corpuscular Hemoglobin 31.2 pg (28.0-34.0); Mean Corpuscular Volume 95.8 fL (80-94); Mean Platelet Volume 9.1 fL (7.4-10.4); Monocytes # 0.1 10^3/uL (0.2-0.9); Monocytes % 0.9 %; Neutrophils # 6.17 10^3/uL (1.8-7.7); Neutrophils % 92.6 %; Nucleated Red Blood Cells % 0 %; Platelet Count 227 10^3/cmm (130-400); Red Blood Count 4.33 10^6/uL (4.1-5.3); Red Cell Distribution Width 13.7 % (12.1-15.1); White Blood Count 6.7 10^3/uL (4.0-10.0)
[2020-09-22 07:11] LABS: Alanine Aminotransferase 14 U/L (0-41); Albumin Level 3.6 g/dL (3.5-5.2); Alkaline Phosphatase 116 IU/L (40-130); Aspartate Amino Transferase 23 U/L (0-40); Blood Urea Nitrogen 6 mg/dL (6-20); Calcium 7.6 mg/dL (8.5-10.5); Carbon Dioxide 23 mmol/L (22-29); Chloride 106 mmol/L (98-107); Globulin 2.9 g/dL (1.3-4.6); Glomerular Filtration Rate 115.4 mL/min (90-130); Glucose 154 mg/dL (65-115); Osmolality Calculated 297 mOsm/kg (285-295); Sodium 143 mmol/L (136-145); Total Bilirubin 0.4 mg/dL (0.15-1.2); Total Protein 6.5 g/dL (6.6-8.7)
[2020-09-22] MEDS: pantoprazole 40 mg SDV IV ×2 (07:11→20:43)
[2020-09-22 07:12] LABS: Lipase 17 U/L (13-60); Magnesium 1.7 mg/dL (1.7-2.3)
[2020-09-22] MEDS: propofol 1,000 MG/100 ML INJ 23.1 MG IV ×3 (08:43→16:31)
[2020-09-22] MEDS: thiamine 100 mg Tablet PO (09:40)
[2020-09-22] MEDS: multivitamin therapeutic Tablet 1 TAB PO (09:40)
[2020-09-22] MEDS: folic acid 1 mg Tablet PO (09:40)
[2020-09-22] MEDS: sulfamethoxazole-trimeth DS 160-800 mg Tablet 1 TAB PO (09:40)
[2020-09-22] MEDS: levofloxacin-dextrose 5 % 750 MG/150 ML PREMIX 100 MG IV (11:18)
[2020-09-22 14:09] LABS: Coronavirus Test Green County Not Detected
--- NOTE | 2020-09-22 14:39 | PC.NURSE ---
Covid - Mother notified of negative covid test and visiting hours. Will visit tomorrow.
[2020-09-22 15:06] LABS: Partial Thromboplastin Time 89.2 SECONDS (23.9-36.7)
--- NOTE | 2020-09-22 15:17 | PM.PN ---
Subjective Subjective: Interval history: Restless this morning, getting up in bed, trying to self extubate. Started on additional sedation. Resting comfortably during my assessment. Not in distress. No seizure-like activity. Vitals/I&O/Wt Last Vital Signs Temp 97.4 F L 09/22/20 13:36 Pulse 85 09/22/20 14:30 Resp 15 09/22/20 14:30 BP 96/64 09/22/20 14:30 Pulse Ox 94 09/22/20 14:30 09/22/20 09/22/20 09/22/20 06:59 14:59 22:59 Intake Total 271.639 / 2592.339 582.315 / 582.315 Output Total 250 / 1700 Balance 21.639 / 892.339 582.315 / 582.315 Weight last 48 hrs Weight 77.111 kg Weight 77.111 kg Physical Exam Const: COMMON NORMALS: no acute distress; negative for patient oriented x3 OTHER: Intubated, sedated. HENMT: COMMON NORMALS: oropharynx normal Eye: OTHER: Symmetrical pupils Neck/C-Spine: COMMON NORMALS: no JVD Resp: COMMON NORMALS: normal respiratory effort AUSCULTATION: diminished lung sounds Cardio: COMMON NORMALS: no JVD, regular rhythm, S1 normal heart sound present, S2 normal heart sound present and No murmurs present (Cardio) RHYTHM: regular rhythm HEART SOUNDS: S1 normal heart sound present and S2 normal heart sound present GI: COMMON NORMALS: Normal to inspection, nondistended, normoactive bowel sounds present, Soft to palpation and non-tender PALPATION: Yes Soft to palpation Extremity: COMMON NORMALS: no joint enlargement and no pedal edema Neuro: COMMON NORMALS: moves all extremities; negative for patient oriented x3 Skin: COMMON NORMALS: no rashes or lesions noted GENERAL SKIN EXAM: no rashes or lesions noted Urinary Catheter Management^: Barba: Cath Placed During This Visit: yes Reason for Continuing Indwelling Catheter: Accurate Measurement of Urinary Output in Critically Ill Patients Urinary Catheter Date of Insertion: 09/21/20 Urinary Catheter Time of Insertion: 13:14 Data : 09/22/20 06:17 09/22/20 06:17 Micro: Microbiology 09/21/20 11:39 Blood Culture - Preliminary Blood NEGATIVE TO DATE 09/21/20 11:39 Blood Culture - Preliminary Blood NEGATIVE TO DATE 09/21/20 14:00 Gram Stain - Final Sputum - Endotracheal Wash Sputum Culture - Preliminary A&P Assessment and plan (1) Acute on chronic respiratory failure with hypoxia and hypercapnia: FiO2 requirement decreasing. Down to 50% so far. Continue supportive care, current ventilatory support. Treatment of COPD exacerbation. COVID-19 PCR negative. Rapid flu negative. Follow-up cultures. Continue Zosyn for possible aspiration pneumonia. Also with underlying pulmonary hypertension. At baseline on 4 L nasal cannula oxygen. If hemoglobin remained stable, consider switching to Lovenox for anticoagulation. Monitor for any bleeding. ET tube repositioned. Status: Acute (2) Acute encephalopathy: With severe alcohol intoxication. Monitor for withdrawal. Continue supportive care, management of hypoxic respiratory failure. Continue treatment of possible aspiration pneumonia. Continue thiamine, folate, multivitamin. There are vague reports that he may have also overdosed on medication, possibly intentionally, in an intoxicated state took a number of Viagra tablets at the same time, although he reports. Not very reliable, coming from third person who we cannot reach, that person appears to be intoxicated at the same time with the patient. Additional report of possible additional surreptitious medication intake morning of admission. Blood pressure remained stable, somewhat soft after initiation of propofol. Heart rates improved. Will recheck CK. Continue supportive care. He will need psychiatric evaluation once he is able to speak with him. Status: Acute (3) Alcohol intoxication: Continue supportive care with acute encephalopathy with alcohol intoxication, monitor for withdrawal. At the alcohol 409 mg/dL on urine toxicology. Require intubation, sedation due to confusion, or sepsis. Will provide supportive care, sedation, mechanical ventilatory support. Monitor for withdrawal. Provide vitamin supplementation. Unfortunately appears to be recurrent issue for him. Previously spent 30 days in rehabilitation and appears did temporarily improve, but relapsed again. Mother unsuccessfully try to help him to set up with Alcoholics Anonymous. Status: Acute (4) Community acquired pneumonia: Continue Zosyn, Levaquin. Obtain sputum cultures. Blood cultures. Negative COVID-19 PCR and rapid flu. Status: Acute (5) COPD exacerbation: Solumedrol, Abx as above. Duoneb. Status: Acute (6) Lactic acidosis: Likely secondary to alcohol intoxication, respiratory failure. Unknown if has history of cirrhosis. Status: Acute (7) Depression: Mother states recently depressed, has not expressed suicidal ideation, but question is of possible deliberate medication overdose possibly witnessed by a friend who is also his independent living caregiver, although this person was reported intoxicated at the time as well. Status: Acute (8) Deliberate medication overdose: Report by independent living caregiver and patient's friend Abdoul Dia given to patient's mother regarding patient taking an unspecified amount of Viagra pills from his bottle at the same time yesterday, while intoxicated. Report of possible additional surreptitious medication intake this morning, again while intoxicated. Mother states that no medications were found around the patient where he was. She is not sure whether this in fact happened. She states that details could not be obtained from patient's friend as he himself was intoxicated. Appears he is also intoxicated today when her daughter tried to reach and discussed with him today. I try to call him on the phone number provided [phone], but could not reach him, and voicemail is not set up. We will have to confirm with patient once he is able to communicate. He will need psychiatric evaluation before being able to discharge. Status: Acute (9) Suicide attempt: Report of possible suicide attempt as above. Status: Acute (10) HIV (human immunodeficiency virus infection): Mother states he follows with ID clinic in [place]. Takes the bottle. Chronically on empiric Bactrim. Dates his counts have most recently been undetectable. Mother to bring the medication. Status: Chronic (11) History of peptic ulcer disease: History of hematemesis reported in the past. Mother states he has had EGD in the past, although is not sure how long ago, does not think he has had a recent one. She is not aware of history of esophageal or gastric varicose veins. Takes PPI at home. Status: Acute (12) Hemoptysis: We have not noted any bloody secretions, no bloody stools. Hemoglobin did decrease a bit, but has been in positive balance, and so dilutional effect is possible. Requested Hemoccult. Monitor for bleeding. Recheck hemoglobin. Continue PPI twice daily. For now empirically anticoagulation with heparin drip rather than Eliquis as discussed with mother so it may be rapidly discontinued in case of any active bleeding. Hemoglobin appears to be close to baseline. Monitor. Reported small amount of blood found on the floor near oxygen tank, unclear whether this was coughed up, but appeared to be perhaps with some sputum. Mother does say that they found some feces on the floor as well, although unclear whether either were belonging to the patient or his friend. Status: Acute (13) Hematochezia: IV Protonix twice daily 40 mg. Check Hemoccult with BM. Recheck hemoglobin. Monitor for bleeding. For now empiric anticoagulation with heparin drip to allow rapid discontinuation/reversal in case of need. Status: Acute (14) Troponin level elevated: Mild elevation of troponin, without peak, follow-up complete troponin EKG series. Sinus tachycardia noted on presentation. Discussed with mother again cannot entirely exclude PE given history, unclear whether he was taking blood thinners. He did not have chest pain. EKG not suggestive of acute ischemia. Suspect this is likely demand, possibly from acute hypoxic and hypercapnic respiratory failure. Status: Acute (15) Serum lipase elevation: Incidentally noted mildly elevated lipase at 68. Normalized. Status: Acute Attestations Medical Necessity Statement*: Continue admission for cyst management of respiratory failure with hypoxia, COPD exacerbation, acute encephalopathy with alcohol intoxication, hypoxia and hypercapnia, possible deliberate medication overdose. Coding Level of Care Code Acute Manager Safe for [facility] Fwd Diagnoses Acute on chronic respiratory failure with hypoxia and hypercapnia J96.21; J96.22 Acute encephalopathy G93.40 Alcohol intoxication F10.929 Community acquired pneumonia J18.9 COPD exacerbation J44.1 Lactic acidosis E87.2 Depression F32.9 Deliberate medication overdose T50.902A Suicide attempt T14.91XA HIV (human immunodeficiency virus infection) B20 History of peptic ulcer disease Z87.11 Hemoptysis R04.2 Hematochezia K92.1 Troponin level elevated R77.8 Serum lipase elevation R74.8
[2020-09-22] MEDS: heparin drip 25,000 UNIT/500 ML PREMIX 16 UNIT IV (20:34)
[2020-09-22] MEDS: propofol 1,000 MG/100 ML INJ 20.8 MG IV (20:54)
[2020-09-22 21:34] LABS: Partial Thromboplastin Time 70.9 SECONDS (23.9-36.7)
[2020-09-23] VITALS (187 sets, daily range): BP systolic 88–122; BP diastolic 56–79; PULSE 76–125; RESP 15–18; TEMP 36.6–36.8; O2SAT 89–96; BMI 23.4
[2020-09-23] MEDS: ipratropium-albuterol 3 mL Neb INHALATION ×6 (00:01→20:12)
[2020-09-23] MEDS: propofol 1,000 MG/100 ML INJ 20.8 MG IV (02:33)
[2020-09-23 04:14] LABS: Hematocrit 39.2 % (42.0-52.0); Hemoglobin 12.6 g/dL (11.7-16.6); Lymphocytes # 0.6 10^3/uL (0.8-4.8); Lymphocytes % 12.6 %; Mean Corpuscular HGB Conc 32.1 g/dL (30.0-36.0); Mean Corpuscular Hemoglobin 31.3 pg (28.0-34.0); Mean Corpuscular Volume 97.3 fL (80-94); Mean Platelet Volume 9.2 fL (7.4-10.4); Monocytes # 0.3 10^3/uL (0.2-0.9); Monocytes % 7.1 %; Neutrophils # 3.47 10^3/uL (1.8-7.7); Neutrophils % 79.8 %; Nucleated Red Blood Cells % 0 %; Platelet Count 229 10^3/cmm (130-400); Red Blood Count 4.03 10^6/uL (4.1-5.3); Red Cell Distribution Width 13.9 % (12.1-15.1); White Blood Count 4.4 10^3/uL (4.0-10.0)
[2020-09-23 04:21] LABS: Partial Thromboplastin Time 57.6 SECONDS (23.9-36.7)
[2020-09-23] MEDS: piperacillin-tazobactam 3.375 GM in sodium chloride 0.9% (plus) 50 ML IV ×3 (04:25→20:26)
[2020-09-23 04:33] LABS: Alanine Aminotransferase 12 U/L (0-41); Albumin Level 3.4 g/dL (3.5-5.2); Alkaline Phosphatase 95 IU/L (40-130); Anion Gap 13.9 (5-19); Aspartate Amino Transferase 20 U/L (0-40); Blood Urea Nitrogen 10 mg/dL (6-20); Calcium 8.4 mg/dL (8.5-10.5); Carbon Dioxide 26 mmol/L (22-29); Chloride 106 mmol/L (98-107); Creatinine Clr Calc Pharmacy 145.1333; Globulin 2.7 g/dL (1.3-4.6); Glomerular Filtration Rate 137.9 mL/min (90-130); Glucose 133 mg/dL (65-115); Osmolality Calculated 295 mOsm/kg (285-295); Potassium 3.9 mmol/L (3.5-5.1); Sodium 142 mmol/L (136-145); Total Bilirubin 0.2 mg/dL (0.15-1.2); Total Protein 6.1 g/dL (6.6-8.7)
[2020-09-23 04:52] LABS: Creatine Phosphokinase 160 U/L (39-308)
[2020-09-23 05:25] LABS: ABG PCO2 45.1 mmHg (35-45); ABG PH Result 7.41 (7.35-7.45); Arterial Blood Gas Hematocrit 39.7 % (42-52); Base Excess ABG 2.9 mmol/L (-2.0-2.0); Blood Gas Sample Type Arterial; HCO3 ABG 28.2 mmol/L (22-26); PO2 ABG 67.1 mmHg (80.0-100.0)
[2020-09-23 05:27] LABS: Blood Gas Sample Site Brachial, right; Blood Gas Tidal Volume 0.55; Oxygen Device VENT
[2020-09-23] MEDS: pantoprazole 40 mg SDV IV ×2 (07:16→20:38)
[2020-09-23] MEDS: propofol 1,000 MG/100 ML INJ 16.2 MG IV (07:16)
[2020-09-23] MEDS: multivitamin therapeutic Tablet 1 TAB PO (08:56)
[2020-09-23] MEDS: thiamine 100 mg Tablet PO (08:56)
[2020-09-23] MEDS: folic acid 1 mg Tablet PO (08:56)
--- NOTE | 2020-09-23 09:05 | PC.CHAP ---
Pastoral Care Encounter/Spiritual Assessment Type of Contact [] Declined director business intelligence visit [] Patient/Family/Request visit [] Outpatient visit [] Follow-up visit [] Physician referral [] Code/Alert [x] Routine visit [] Staff referral [] Actively dying [] Patient sleeping [] Family support [] [] Out of room [] Palliative care [] [] Receiving care in room [] Pre-surgical visit [] Trauma [] Long length of stay [x] ICU visit [x] Other: ventilator Relational/Emotional Strength [] Patient feels connected with others/family/visitors/staff [] Distress [] Loneliness/isolation [] Abandonment Spirituality of Patient [] Person of Talia [] Attends Denominational of their Talia [] Believes in Prayer [] Reads Bible or Episcopalian materials [] There are Spiritual issues to be addressed Student Teacher Interventions [x] Prayer [] Active listening [] Non-anxious presence [] Spiritual/emotional support [] Crisis/trauma care [] Spiritual counseling [] Bereavement support [] Provided bereavement packet [] Provided Bible/devotional materials [] Provided toy/stuffed animal, coloring book to patient or family member [] Provided Communion [] Anointing/[place] [] Salvation [x] Completed spiritual assessment [] Other: Impact on Illness or Injury [] Angry [] Fearful [] Anxious [] Often cries [] Exhaustion [] Unable to work [] Unable to attend mandaen [] Unable to walk/stand [] Unable to read [] Unable to drive [] Unable to eat/drink [] Unable to sleep [] Unable to be with family [] Patient intubated [] Other: Summary Time spent with patient
--- NOTE | 2020-09-23 09:35 | PM.PN ---
Subjective Subjective: Interval history: Intubated, sedated. Appears comfortable. Vitals/I&O/Wt Last Vital Signs Temp 97.9 F 09/23/20 05:35 Pulse 86 09/23/20 09:00 Resp 15 09/23/20 09:30 BP 96/57 09/23/20 09:00 Pulse Ox 93 09/23/20 09:00 09/22/20 09/23/20 09/23/20 22:59 06:59 14:59 Intake Total 465.392 / 1047.707 265.775 / 1313.482 224.117 / 224.117 Output Total 450 / 450 350 / 800 Balance 15.392 / 597.707 -84.225 / 513.482 224.117 / 224.117 Weight last 48 hrs Weight 78.471 kg Weight 77.111 kg Weight 77.111 kg Physical Exam Const: COMMON NORMALS: no acute distress; negative for patient oriented x3 OTHER: Intubated, sedated. HENMT: COMMON NORMALS: oropharynx normal Neck/C-Spine: COMMON NORMALS: no JVD Resp: COMMON NORMALS: normal respiratory effort AUSCULTATION: diminished lung sounds Cardio: COMMON NORMALS: no JVD, regular rhythm, S1 normal heart sound present, S2 normal heart sound present and No murmurs present (Cardio) RHYTHM: regular rhythm HEART SOUNDS: S1 normal heart sound present and S2 normal heart sound present GI: COMMON NORMALS: Normal to inspection, nondistended, normoactive bowel sounds present, Soft to palpation and non-tender PALPATION: Yes Soft to palpation Extremity: COMMON NORMALS: no joint enlargement and no pedal edema Neuro: COMMON NORMALS: moves all extremities; negative for patient oriented x3 Skin: COMMON NORMALS: no rashes or lesions noted GENERAL SKIN EXAM: no rashes or lesions noted Urinary Catheter Management^: Barba: Cath Placed During This Visit: yes Reason for Continuing Indwelling Catheter: Accurate Measurement of Urinary Output in Critically Ill Patients Urinary Catheter Date of Insertion: 09/21/20 Urinary Catheter Time of Insertion: 13:14 Data : 09/23/20 03:11 09/23/20 03:11 Micro: Microbiology 09/21/20 11:39 Blood Culture - Preliminary Blood NEGATIVE TO DATE 09/21/20 11:39 Blood Culture - Preliminary Blood NEGATIVE TO DATE 09/21/20 14:00 Gram Stain - Final Sputum - Endotracheal Wash Sputum Culture - Preliminary A&P Assessment and plan (1) Acute on chronic respiratory failure with hypoxia and hypercapnia: FiO2 requirement continue to improve. Down to 40% FiO2 at this time. Does not appear to have excessive secretions. We will attempt to wean down sedation, reassess mental status, consider weaning trial, and depending on how he does possible extubation in the near future. At baseline on 4 L nasal cannula. Continue Zosyn for possible aspiration pneumonia. Continue Decadron. Will taper down the dose. Also with underlying pulmonary hypertension. At baseline on 4 L nasal cannula oxygen. DC heparin drip. Switch to Lovenox for anticoagulation. Monitor for any bleeding. Status: Acute (2) Acute encephalopathy: Wean down sedation. Reassess mental status. Severe alcohol intoxication should be resolved now. At risk for withdrawal. Continue supportive care, management of hypoxic respiratory failure. Continue treatment of possible aspiration pneumonia. Continue thiamine, folate, multivitamin. There are vague reports that he may have also overdosed on medication, possibly intentionally, in an intoxicated state took a number of Viagra tablets at the same time, although he reports. Not very reliable, coming from third person who we cannot reach, that person appears to be intoxicated at the same time with the patient. Additional report of possible additional surreptitious medication intake morning of admission. Blood pressure remained stable, somewhat soft after initiation of propofol. Heart rates improved. Will recheck CK. Continue supportive care. He will need psychiatric evaluation once he is able to speak with him. Status: Acute (3) Alcohol intoxication: As above. Recurrent relapses. Previously spent 30 days in rehabilitation and appears did temporarily improve, but relapsed again. Mother unsuccessfully try to help him to set up with Alcoholics Anonymous. Status: Acute (4) Community acquired pneumonia: Continue Zosyn, Levaquin. Follow blood cultures. Scant normal arnie on sputum cultures. Status: Acute (5) COPD exacerbation: Taper down Solumedrol, Abx as above. Duoneb. Weaning trial. Status: Acute (6) Lactic acidosis: Likely secondary to alcohol intoxication, respiratory failure. Unknown if has history of cirrhosis. Status: Acute (7) Depression: Mother states recently depressed, has not expressed suicidal ideation, but question is of possible deliberate medication overdose possibly witnessed by a friend who is also his independent living caregiver, although this person was reported intoxicated at the time as well. Status: Acute (8) Deliberate medication overdose: Report by independent living caregiver and patient's friend Abdoul Dia given to patient's mother regarding patient taking an unspecified amount of Viagra pills from his bottle at the same time yesterday, while intoxicated. Report of possible additional surreptitious medication intake this morning, again while intoxicated. Mother states that no medications were found around the patient where he was. She is not sure whether this in fact happened. She states that details could not be obtained from patient's friend as he himself was intoxicated. Appears he is also intoxicated today when her daughter tried to reach and discussed with him today. I try to call him on the phone number provided [phone], but could not reach him, and voicemail is not set up. We will have to confirm with patient once he is able to communicate. He will need psychiatric evaluation before being able to discharge. Status: Acute (9) Suicide attempt: Report of possible suicide attempt as above. Status: Acute (10) HIV (human immunodeficiency virus infection): Mother states he follows with ID clinic in [place]. Takes the bottle. Chronically on empiric Bactrim. Dates his counts have most recently been undetectable. Mother to bring the medication. Status: Chronic (11) History of peptic ulcer disease: History of hematemesis reported in the past. Mother states he has had EGD in the past, although is not sure how long ago, does not think he has had a recent one. She is not aware of history of esophageal or gastric varicose veins. Takes PPI at home. Status: Acute (12) Hemoptysis: We have not noted any bloody secretions, no bloody stools. Hemoglobin did decrease a bit, but has been in positive balance, and so dilutional effect is possible. Requested Hemoccult. Monitor for bleeding. Recheck hemoglobin. Continue PPI twice daily. Transition to Lovenox. Reported small amount of blood found on the floor near oxygen tank, unclear whether this was coughed up, but appeared to be perhaps with some sputum. Mother does say that they found some feces on the floor as well, although unclear whether either were belonging to the patient or his friend. Status: Acute (13) Hematochezia: IV Protonix twice daily 40 mg. Check Hemoccult with BM. Recheck hemoglobin. Monitor for bleeding. Change heparin drip to Lovenox. Status: Acute (14) Troponin level elevated: Mild elevation of troponin, without peak, follow-up complete troponin EKG series. Sinus tachycardia noted on presentation. Discussed with mother again cannot entirely exclude PE given history, unclear whether he was taking blood thinners. He did not have chest pain. EKG not suggestive of acute ischemia. Suspect this is likely demand, possibly from acute hypoxic and hypercapnic respiratory failure. Status: Acute (15) Serum lipase elevation: Incidentally noted mildly elevated lipase at 68. Normalized. Status: Acute Attestations Medical Necessity Statement*: Continue admission for assessment of management of respiratory failure with hypoxia, acute encephalopathy, possible delivered medication overdose, monitoring for alcohol withdrawal, monitoring of hemoglobin levels with possible GI bleed in the setting of need for chronic anticoagulation. Coding Level of Care Code Acute Labelling Machine Operator for [facility] Fwd Diagnoses Acute on chronic respiratory failure with hypoxia and hypercapnia J96.21; J96.22 Acute encephalopathy G93.40 Alcohol intoxication F10.929 Community acquired pneumonia J18.9 COPD exacerbation J44.1 Lactic acidosis E87.2 Depression F32.9 Deliberate medication overdose T50.902A Suicide attempt T14.91XA HIV (human immunodeficiency virus infection) B20 History of peptic ulcer disease Z87.11 Hemoptysis R04.2 Hematochezia K92.1 Troponin level elevated R77.8 Serum lipase elevation R74.8
[2020-09-23] MEDS: enoxaparin 80 mg/0.8 mL Syringe SUBCUT ×2 (10:39→21:15)
[2020-09-23] MEDS: levofloxacin-dextrose 5 % 750 MG/150 ML PREMIX 150 MG IV (12:19)
[2020-09-23] MEDS: LORazepam 2 mg/mL INJ 1 mL IVP (13:07)
[2020-09-23] MEDS: propofol 1,000 MG/100 ML INJ 13.9 MG IV (16:46)
--- NOTE | 2020-09-23 17:17 | XR_ITS ---
WS: [id number] Portable AP upright chest, 09/23/2020 Clinical Data: Increased vent settings Comparison: Portable chest, 09/22/2020. Findings: There is bibasilar atelectasis with slight increase in the right basilar atelectasis and de velopment of a small right pleural effusion. The heart size remains the same. Aortic arch is tortuous . The endotracheal tube and nasal gastric tube are in good position. Monitor leads are on the chest w all. XR/XR chest 1V portable [id number] Impression: 1. Increase in right basilar atelectasis. 2. No change in left basilar atelectasis. 3. No change in endotracheal tube and nasogastric tube
--- NOTE | 2020-09-23 19:24 | PC.NURSE ---
Received bed side shift report from off going nurse. Pt's plan of care reviewed. Pt is currently intubated and sedated. Pt appears to be resting comfortably at this time. Respirations are even and unlabored. No s/sx of distress noted. Pt is sating 91% on current vent settings. Right lung noted to be more diminished tonight compared to last night. Pt shakes and tries raising his arms with touch/painful stimuli. Bed in lowest and locked position, call light within reach, x's 4 rails up. Bed alarm on and soft wrist restraints applied. Will continue to monitor pt.
[2020-09-23] MEDS: propofol 1,000 MG/100 ML INJ 18.5 MG IV (21:39)
[2020-09-24] VITALS (188 sets, daily range): BP systolic 91–138; BP diastolic 58–88; PULSE 65–103; RESP 15; TEMP 36.7–36.8; O2SAT 90–97; BMI 23.2
[2020-09-24] MEDS: ipratropium-albuterol 3 mL Neb INHALATION ×7 (00:08→23:33)
[2020-09-24] MEDS: propofol 1,000 MG/100 ML INJ 18.5 MG IV ×3 (02:48→21:09)
[2020-09-24 03:59] LABS: Hematocrit 39.4 % (42.0-52.0); Hemoglobin 12.6 g/dL (11.7-16.6); Lymphocytes # 0.5 10^3/uL (0.8-4.8); Mean Platelet Volume 9.4 fL (7.4-10.4); Monocytes # 0.3 10^3/uL (0.2-0.9); Monocytes % 3.2 %; Neutrophils # 7.51 10^3/uL (1.8-7.7); Neutrophils % 90.4 %; Nucleated Red Blood Cells % 0 %; Platelet Count 227 10^3/cmm (130-400); Red Blood Count 4.06 10^6/uL (4.1-5.3); White Blood Count 8.3 10^3/uL (4.0-10.0)
[2020-09-24 04:15] LABS: Partial Thromboplastin Time 32.1 SECONDS (23.9-36.7)
[2020-09-24] MEDS: piperacillin-tazobactam 3.375 GM in sodium chloride 0.9% (plus) 50 ML IV ×3 (04:28→19:42)
[2020-09-24 04:37] LABS: Alanine Aminotransferase 14 U/L (0-41); Albumin Level 3.2 g/dL (3.5-5.2); Alkaline Phosphatase 83 IU/L (40-130); Anion Gap 10.7 (5-19); Aspartate Amino Transferase 24 U/L (0-40); Blood Urea Nitrogen 17 mg/dL (6-20); Calcium 8.2 mg/dL (8.5-10.5); Carbon Dioxide 29 mmol/L (22-29); Chloride 108 mmol/L (98-107); Globulin 2.8 g/dL (1.3-4.6); Glomerular Filtration Rate 115.4 mL/min (90-130); Glucose 120 mg/dL (65-115); Osmolality Calculated 301 mOsm/kg (285-295); Potassium 3.7 mmol/L (3.5-5.1); Sodium 144 mmol/L (136-145); Total Bilirubin 0.3 mg/dL (0.15-1.2)
[2020-09-24 05:18] LABS: ABG PCO2 43.6 mmHg (35-45); ABG PH Result 7.45 (7.35-7.45); Arterial Blood Gas Hematocrit 40.3 % (42-52); Base Excess ABG 5.5 mmol/L (-2.0-2.0); Blood Gas Sample Site Brachial, right; Blood Gas Sample Type Arterial; Blood Gas Tidal Volume 0.55; HCO3 ABG 30.2 mmol/L (22-26); Oxygen Device VENT; PO2 ABG 71.3 mmHg (80.0-100.0)
[2020-09-24] MEDS: sulfamethoxazole-trimeth DS 160-800 mg Tablet 1 TAB PO (06:10)
[2020-09-24] MEDS: folic acid 1 mg Tablet PO (08:42)
[2020-09-24] MEDS: thiamine 100 mg Tablet PO (08:42)
[2020-09-24] MEDS: multivitamin therapeutic Tablet 1 TAB PO (08:42)
--- NOTE | 2020-09-24 09:29 | P.PN_ITS ---
Subjective Subjective: Interval history: Intubated, sedated. not in distress. Attempts to wean sedation unsuccessful earlier due to restlessness. Not following commands. Vitals/I&O/Wt Last Vital Signs Temp 98.3 F 09/24/20 02:10 Pulse 75 09/24/20 08:00 Resp 15 09/24/20 08:00 BP 104/70 09/24/20 08:00 Pulse Ox 93 09/24/20 08:00 09/23/20 09/24/20 09/24/20 22:59 06:59 14:59 Intake Total 381.768 / 847.488 245.275 / 1092.763 161.308 / 161.308 Output Total 300 / 300 250 / 550 125 / 125 Balance 81.768 / 547.488 -4.725 / 542.763 36.308 / 36.308 Weight last 48 hrs Weight 77.819 kg Weight 78.471 kg Physical Exam Const: COMMON NORMALS: no acute distress; negative for patient oriented x3 OTHER: Intubated, sedated. HENMT: COMMON NORMALS: oropharynx normal Eye: OTHER: Symmetrical pupils Neck/C-Spine: COMMON NORMALS: no JVD Resp: COMMON NORMALS: normal respiratory effort AUSCULTATION: diminished l tony sounds Cardio: COMMON NORMALS: no JVD, regular rhythm, S1 normal heart sound present, S2 normal heart sound present and No murmurs present (Cardio) RHYTHM: regular rhythm HEART SOUNDS: S1 normal heart sound present and S2 normal heart sound present GI: COMMON NORMALS: Normal to inspection, nondistended, normoactive bowel sounds present, Soft to palpation and non-tender PALPATION: Yes Soft to palpation Extremity: COMMON NORMALS: no joint enlargement and no pedal edema Neuro: COMMON NORMALS: moves all extremities; negative for patient oriented x3 Skin: COMMON NORMALS: no rashes or lesions noted GENERAL SKIN EXAM: no rashes or lesions noted Urinary Catheter Management^: Barba: Cath Placed During This Visit: yes Reason for Continuing Indwelling Catheter: Accurate Measurement of Urinary Output in Critically Ill Patients Urinary Catheter Date of Insertion: 09/21/20 Urinary Catheter Time of Insertion: 13:14 Data : 09/24/20 03:15 09/24/20 03:15 Micro: Microbiology 09/21/20 14:00 Gram Stain - Final Sputum - Endotracheal Wash Sputum Culture - Final A&P Assessment and plan (1) Acute on chronic respiratory failure with hypoxia and hypercapnia: Worsening hypoxia last night, requiring 50%FiO2. Repeat chest x-ray appears to show persistent right-sided pneumonia. Appears to also have some congestive changes. Appears to be in positive balance. Difficult to assess whether his weight is higher than usual as it appears to fluctuate so much. We will give him a dose of 20 mg IV Lasix. Yesterday we tried to taper down on Solu-Medrol dose, however, we increased this back up due to worsening hypoxia. Continue Zosyn for aspiration pneumonia. At baseline on 4 L nasal cannula. Also with underlying pulmonary hypertension. Has not been able to receive his medications as these cannot be crushed and put down the NG. At baseline on 4 L nasal cannula oxygen. Lovenox for anticoagulation. Monitor for any bleeding. Tried to reach mother for update. Status: Acute (2) Acute encephalopathy: Weaning down sedation he still becomes restless, not following commands, try to get up from bed or pull in the ET tube. Not redirectable. Sedation had to be increased back up. Appears he may be withdrawing from alcohol currently. Continue supportive care. Continue Ativan per [facility] protocol for alcohol withdrawal. Continue weaning trials. Continue thiamine, folate, multivitamin. There are vague reports that he may have also overdosed on medication, possibly intentionally, in an intoxicated state took a number of Viagra tablets at the same time, although he reports. Not very reliable, coming from third person who we cannot reach, that person appears to be intoxicated at the same time with the patient. Additional report of possible additional surreptitious medication in take morning of admission. Blood pressure remained stable, somewhat soft after initiation of propofol. Heart rates improved. CK normal. Continue supportive care. He will need psychiatric evaluation once he is able to speak with him. Afebrile, without signs of persistent sepsis. [employer] infection likelihood rather low. Status: Acute (3) Alcohol intoxication: Now alcohol withdrawal. As above. Recurrent relapses. Previously spent 30 days in rehabilitation and appears did temporarily improve, but relapsed again. Mother unsuccessfully try to help him to set up with Alcoholics Anonymous. Status: Acute (4) Community acquired pneumonia: Continue Zosyn, Levaquin. Follow blood cultures. Scant normal arnie on sputum cultures. Status: Acute (5) COPD exacerbation: Taper down Solumedrol, Abx as above. Duoneb. Weaning trial. Status: Acute (6) Lactic acidosis: Likely secondary to alcohol intoxication, respiratory failure. Unknown if has history of cirrhosis. Status: Acute (7) Depression: Mother states recently depressed, has not expressed suicidal ideation, but question is of possible deliberate medication overdose possibly witnessed by a friend who is also his independent living caregiver, although this person was reported intoxicated at the time as well. Status: Acute (8) Deliberate medication overdose: Report by independent living caregiver and patient's friend Abdoul Dia given to patient's mother regarding patient taking an unspecified amount of Viagra pills from his bottle at the same time yesterday, while intoxicated. Report of possible additional surreptitious medication intake this morning, again while intoxicated. Mother states that no medications were found around the patient where he was. She is not sure whether this in fact happened. She states that details could not be obtained from patient's friend as he himself was intoxicated. Appears he is also intoxicated today when her daughter tried to reach and discussed with him today. I try to call him on the phone number provided [phone], but could not reach him, and voicemail is not set up. We will have to confirm with patient once he is able to communicate. He will need psychiatric evaluation before being able to discharge. Status: Acute (9) Suicide attempt: Report of possible suicide attempt as above. Status: Acute (10) HIV (human immunodeficiency virus infection): He is not so far received his HIV medication. This was brought in by his mother, however, has been conflicting reports as to whether he can be crushed and put in OGT. This will be confirmed again with pharmacy. Mother states he follows with ID clinic in [place]. Takes the bottle. Chronically on empiric Bactrim. Dates his counts have most recently been undetectable. Status: Chronic (11) History of peptic ulcer disease: History of hematemesis reported in the past. Mother states he has had EGD in the past, although is not sure how long ago, does not think he has had a recent one. She is not aware of history of esophageal or gastric varicose veins. Takes PPI at home. Status: Acute (12) Hemoptysis: We have not noted any bloody secretions, no bloody stools. Hemoglobin did decrease a bit, but has been in positive balance, and so dilutional effect is possible. Requested Hemoccult. Monitor for bleeding. Recheck hemoglobin. Continue PPI twice daily. Transition to Lovenox. Reported small amount of blood found on the floor near oxygen tank, unclear w hether this was coughed up, but appeared to be perhaps with some sputum. Mother does say that they found some feces on the floor as well, although unclear whether either were belonging to the patient or his friend. Status: Acute (13) Hematochezia: IV Protonix twice daily 40 mg. Check Hemoccult with BM. Recheck hemoglobin. Monitor for bleeding. Change heparin drip to Lovenox. Status: Acute (14) Troponin level elevated: Mild elevation of troponin, without peak, follow-up complete troponin EKG series. Sinus tachycardia noted on presentation. Discussed with mother again cannot entirely exclude PE given history, unclear whether he was taking blood thinners. He did not have chest pain. EKG not suggestive of acute ischemia. Suspect this is likely demand, possibly from acute hypoxic and hypercapnic respiratory failure. Status: Acute (15) Serum lipase elevation: Incidentally noted mildly elevated lipase at 68. Normalized. Status: Acute Attestations Medical Necessity Statement*: Continue admission for assessment management of respiratory failure with hypoxia, encephalopathy, alcohol withdrawal and possible delivered medication overdose and suicide attempt, underlying HIV. Coding Level of Care Code Acute Supervisor Dials for [facility] Fwd Exam Comprehensive Diagnoses Acute on chronic respiratory failure with hypoxia and hypercapnia J96.21; J96.22 Acute encephalopathy G93.40 Alcohol intoxication F10.929 Community acquired pneumonia J18.9 COPD exacerbation J44.1 Lactic acidosis E87.2 Depression F32.9 Deliberate medication overdose T50.902A Suicide attempt T14.91XA HIV (human immunodeficiency virus infection) B20 History of peptic ulcer disease Z87.11 Hemoptysis R04.2 Hematochezia K92.1 Troponin level elevated R77.8 Serum lipase elevation R74.8
[2020-09-24] MEDS: pantoprazole 40 mg SDV IV ×2 (09:51→19:42)
[2020-09-24] MEDS: FUROsemide 10 mg/mL SDV 2mL 20 MG IVP (09:51)
[2020-09-24] MEDS: enoxaparin 80 mg/0.8 mL Syringe SUBCUT ×2 (09:52→21:01)
[2020-09-24] MEDS: levofloxacin-dextrose 5 % 750 MG/150 ML PREMIX 100 MG IV (11:18)
--- NOTE | 2020-09-24 15:39 | PC.SOCIAL ---
IMM update Page 2. IMM update given to Carmelita, patient's mother over the phone since patient is intubated. Carmelita verbalized an understand of these rights. A copy was left in patient's room for her when she came to visit tomorrow. Initialed, dated, timed, and placed in chart.
--- NOTE | 2020-09-24 16:06 | PC.NURSE ---
Wake up trial Turned propofol off, versed at 4mg/hr, fentanyl at 100mcg/hr. Patient wakes but doesn't follow commands. Attempts to sit up in bed and tries to grab ETT. Tremors still present but much better than trial on 09/23/20. Ventilator turned to pressure support by RT but quickly turned back to VC-AC due to decreased RR. Propofol restarted, patient resting comfortably, vss. Not ready for extubation today.
[2020-09-24] MEDS: propofol 1,000 MG/100 ML INJ 20.8 MG IV (16:39)
[2020-09-25] VITALS (171 sets, daily range): BP systolic 97–165; BP diastolic 64–112; PULSE 66–122; RESP 7–17; TEMP 36.6–37.1; O2SAT 91–96; BMI 23.1
[2020-09-25] MEDS: propofol 1,000 MG/100 ML INJ 13.9 MG IV ×3 (03:01→18:57)
[2020-09-25] MEDS: ipratropium-albuterol 3 mL Neb INHALATION ×5 (03:07→19:43)
[2020-09-25] MEDS: piperacillin-tazobactam 3.375 GM in sodium chloride 0.9% (plus) 50 ML IV ×3 (04:50→20:15)
[2020-09-25 05:15] LABS: ABG PCO2 42.3 mmHg (35-45); ABG PH Result 7.48 (7.35-7.45); Arterial Blood Gas Hematocrit 40.7 % (42-52); Base Excess ABG 7.5 mmol/L (-2.0-2.0); Blood Gas Sample Site Brachial, right; Blood Gas Sample Type Arterial; Blood Gas Tidal Volume 0.55; HCO3 ABG 31.8 mmol/L (22-26); Oxygen Device VENT; PO2 ABG 77.2 mmHg (80.0-100.0)
[2020-09-25 05:50] LABS: Hematocrit 40.3 % (42.0-52.0); Hemoglobin 12.6 g/dL (11.7-16.6); Lymphocytes # 0.4 10^3/uL (0.8-4.8); Lymphocytes % 6.4 %; Mean Corpuscular HGB Conc 31.3 g/dL (30.0-36.0); Mean Corpuscular Hemoglobin 30.2 pg (28.0-34.0); Mean Corpuscular Volume 96.6 fL (80-94); Mean Platelet Volume 9.7 fL (7.4-10.4); Monocytes # 0.2 10^3/uL (0.2-0.9); Monocytes % 2.8 %; Neutrophils # 6.04 10^3/uL (1.8-7.7); Neutrophils % 90.2 %; Nucleated Red Blood Cells % 0 %; Platelet Count 228 10^3/cmm (130-400); Red Blood Count 4.17 10^6/uL (4.1-5.3); Red Cell Distribution Width 14.1 % (12.1-15.1); White Blood Count 6.7 10^3/uL (4.0-10.0)
[2020-09-25 06:21] LABS: Alanine Aminotransferase 30 U/L (0-41); Albumin Level 3.4 g/dL (3.5-5.2); Alkaline Phosphatase 75 IU/L (40-130); Anion Gap 12.5 (5-19); Aspartate Amino Transferase 48 U/L (0-40); Blood Urea Nitrogen 22 mg/dL (6-20); Calcium 8.2 mg/dL (8.5-10.5); Carbon Dioxide 28 mmol/L (22-29); Chloride 105 mmol/L (98-107); Globulin 2.8 g/dL (1.3-4.6); Glomerular Filtration Rate 170.2 mL/min (90-130); Glucose 114 mg/dL (65-115); Osmolality Calculated 298 mOsm/kg (285-295); Potassium 3.5 mmol/L (3.5-5.1); Sodium 142 mmol/L (136-145); Total Bilirubin 0.5 mg/dL (0.15-1.2); Total Protein 6.2 g/dL (6.6-8.7)
[2020-09-25] MEDS: pantoprazole 40 mg SDV IV ×2 (07:32→20:15)
[2020-09-25] MEDS: LORazepam 2 mg Tablet PO (09:10)
[2020-09-25] MEDS: folic acid 1 mg Tablet PO (09:10)
[2020-09-25] MEDS: multivitamin therapeutic Tablet 1 TAB PO (09:10)
[2020-09-25] MEDS: thiamine 100 mg Tablet PO (09:10)
--- NOTE | 2020-09-25 09:20 | P.PN_ITS ---
Subjective Subjective: Interval history: He is intubated, sedated. Not in distress. Vitals/I&O/Wt Last Vital Signs Temp 98.7 F 09/25/20 05:25 Pulse 68 09/25/20 07:53 Resp 15 09/25/20 09:08 BP 129/83 09/25/20 07:15 Pulse Ox 92 09/25/20 09:08 09/24/20 09/25/20 09/25/20 22:59 06:59 14:59 Intake Total 411.649 / 793.625 294.443 / 1088.068 50 / 50 Output Total 825 / 950 200 / 1150 Balance -413.351 / -156.375 94.443 / -61.932 50 / 50 Weight last 48 hrs Weight 77.337 kg Weight 77.819 kg Physical Exam Const: COMMON NORMALS: no acute distress; negative for patient oriented x3 GENERAL APPEARANCE: comfortable OTHER: Intubated, sedated. HENMT: COMMON NORMALS: oropharynx normal Eye: OTHER: Symmetrical pupils Neck/C-Spine: COMMON NORMALS: no JVD Resp: COMMON NORMALS: normal respiratory effort AUSCULTATION: diminished lung sounds (Improving) Cardio: COMMON NORMALS: no JVD, regular rhythm, S1 normal heart sound present, S2 normal heart sound present and No murmurs present (Cardio) RHYTHM: regular rhythm HEART SOUNDS: S1 normal heart sound present and S2 normal heart sound present GI: COMMON NORMALS: Normal to inspection, nondistended, normoactive bowel sounds present, Soft to palpation and non-tender PALPATION: Yes Soft to palpation Extremity: COMMON NORMALS: no joint enlargement and no pedal edema Neuro: COMMON NORMALS: moves all extremities; negative for patient oriented x3 Skin: COMMON NORMALS: no rashes or lesions noted GENERAL SKIN EXAM: no rashes or lesions noted Urinary Catheter Management^: Barba: Cath Placed During This Visit: yes Reason for Continuing Indwelling Catheter: Accurate Measurement of Urinary Output in Critically Ill Patients Urinary Catheter Date of Insertion: 09/21/20 Urinary Catheter Time of Insertion: 13:14 Data : 09/25/20 03:05 09/25/20 03:05 Micro: Microbiology 09/21/20 11:39 Blood Culture - Preliminary Blood Gram positive cocci Gram positive guillermina A&P Assessment and plan (1) Acute on chronic respiratory failure with hypoxia and hypercapnia: Alcohol withdrawal has been a barrier to successful weaning of sedation, extubation. Continue supportive care. Continue weaning trials. If mental status not improving yet, start tube feeds. Today weaning down to 45% on FiO2. Sounds little bit better. Will attempt to taper down steroids. Yesterday we tried to taper down on Solu-Medrol dose, however, we increased this back up due to worsening hypoxia. Continue Zosyn for aspiration pneumonia. At baseline on 4 L nasal cannula. Also with underlying pulmonary hypertension. Has not been able to receive his medications as these cannot be crushed and put down the NG. Lovenox for anticoagulation. Monitor for any bleeding. Discussed with his mother. She is coming to visit. Status: Acute (2) Acute encephalopathy: He was still becoming restless, not following commands last night. Tremulous. Will reassess again mental status today. Continue supportive care. Continue Ativan per [facility] protocol for alcohol withdrawal. Continue weaning trials. Continue thiamine, folate, multivitamin. There are vague reports that he may have also overdosed on medication, possibly intentionally, in an intoxicated state took a number of Viagra tablets at the same time, although he reports. Not very reliable, coming from third person who we cannot reach, that person appears to be intoxicated at the same time with the patient. Additional report of possible additional surreptitious medication intake morning of admission. Blood pressure remained stable, somewhat soft after initiation of propofol. Heart rates improved. CK normal. Continue supportive care. He will need psychiatric evaluation once he is able to speak with him. Afebrile, without signs of persistent sepsis. [employer] infection likelihood rather low. Status: Acute (3) Alcohol intoxication: Now alcohol withdrawal. As above. Recurrent relapses. Previously spent 30 days in rehabilitation and appears did temporarily improve, but relapsed again. Mother unsuccessfully try to help him to set up with Alcoholics Anonymous. Status: Acute (4) Community acquired pneumonia: Continue Zosyn, Levaquin. Follow blood cultures. Scant normal arnie on sputum cultures. Status: Acute (5) COPD exacerbation: Taper down Solumedrol, Abx as above. Duoneb. Weaning trial. Status: Acute (6) Lactic acidosis: Likely secondary to alcohol intoxication, respiratory failure. Unknown if has history of cirrhosis. Status: Acute (7) Depression: Mother states recently depressed, has not expressed suicidal ideation, but question is of possible deliberate medication overdose possibly witnessed by a friend who is also his independent living caregiver, although this person was reported intoxicated at the time as well. Status: Acute (8) Deliberate medication overdose: Report by independent living caregiver and patient's friend Abdoul Dia given to patient's mother regarding patient taking an unspecified amount of Viagra pills from his bottle at the same time yesterday, while intoxicated. Report of possible additional surreptitious medication intake this morning, again while intoxicated. Mother states that no medications were found around the patient where he was. She is not sure whether this in fact happened. She states that details could not be obtained from patient's friend as he himself was intoxicated. Appears he is also intoxicated today when her daughter tried to reach and discussed with him today. I try to call him on the phone number provided [phone], but could not reach him, and voicemail is not set up. We will have to confirm with patient once he is able to communicate. He will need psychiatric evaluation before being able to discharge. Status: Acute (9) Suicide attempt: Report of possible suicide attempt as above. Status: Acute (10) HIV (human immunodeficiency virus infection): He is not so far received his HIV medication. This was brought in by his mother, however, has been conflicting reports as to whether he can be crushed and put in OGT. This will be confirmed again with pharmacy. Mother states he follows with ID clinic in [place]. Takes the bottle. Chronically on empiric Bactrim. Dates his counts have most recently been undetectable. Status: Chronic (11) History of peptic ulcer disease: History of hematemesis reported in the past. Mother states he has had EGD in the past, although is not sure how long ago, does not think he has had a recent one. She is not aware of history of esophageal or gastric varicose veins. Takes PPI at home. Status: Acute (12) Hemoptysis: We have not noted any bloody secretions, no bloody stools. Hemoglobin did decrease a bit, but has been in positive balance, and so dilutional effect is possible. Requested Hemoccult. Monitor for bleeding. Recheck hemoglobin. Continue PPI twice daily. Transition to Lovenox. Reported small amount of blood found on the floor near oxygen tank, unclear whether this was coughed up, but appeared to be perhaps with some sputum. Mother does say that they found some feces on the floor as well, although unclear whether either were belonging to the patient or his friend. Status: Acute (13) Hematochezia: IV Protonix twice daily 40 mg. Check Hemoccult with BM. Recheck hemoglobin. Monitor for bleeding. Change heparin drip to Lovenox. Hemoglobin remained stable while on anticoagulation, without any signs of bleeding. Will likely need outpatient follow-up for endoscopic evaluation. Status: Acute (14) Troponin level elevated: Mild elevation of troponin, without peak, follow-up complete troponin EKG series. Sinus tachycardia noted on presentation. Discussed with mother again cannot entirely exclude PE given history, unclear whether he was taking blood thinners. He did not have chest pain. EKG not suggestive of acute ischemia. Suspect this is likely demand, possibly from acute hypoxic and hypercapnic respiratory failure. Status: Acute (15) Serum lipase elevation: Incidentally noted mildly elevated lipase at 68. Normalized. Status: Acute Attestations Medical Necessity Statement*: Continue admission for assessment of management of acute encephalopathy, alcohol withdrawal, need for sedation, mechanical ventilatory support, daily reassessments of improvement in mental status, weaning trials. Coding Level of Care Code Acute Surgical Services Manager for [facility] Fwd Exam Comprehensive Diagnoses Acute on chronic respiratory failure with hypoxia and hypercapnia J96.21; J96.22 Acute encephalopathy G93.40 Alcohol intoxication F10.929 Community acquired pneumonia J18.9 COPD exacerbation J44.1 Lactic acidosis E87.2 Depression F32.9 Deliberate medication overdose T50.902A Suicide attempt T14.91XA HIV (human immunodeficiency virus infection) B20 History of peptic ulcer disease Z87.11 Hemoptysis R04.2 Hematochezia K92.1 Troponin level elevated R77.8 Serum lipase elevation R74.8
--- NOTE | 2020-09-25 09:22 | PC.NURSE ---
weaning of iv drips started
--- NOTE | 2020-09-25 09:26 | PC.NURSE ---
some tremors noted, but subsided quickly.
[2020-09-25] MEDS: enoxaparin 80 mg/0.8 mL Syringe SUBCUT ×2 (09:28→21:49)
--- NOTE | 2020-09-25 10:24 | PC.NURSE ---
breathing pattern irregular. doesnt follow commands
--- NOTE | 2020-09-25 11:24 | PC.NURSE ---
all gtts off. attempted to straighten himself up in bed on request, wont squeeze with hands but nods head yes he can. r.r. remains irregular. run of abnormal rhythm on monitor. heart [id number]. b/p slightly elevated.
--- NOTE | 2020-09-25 11:34 | PC.NURSE ---
back on assist control. periods of apnea. will leave gttsoff at this time until pt. more alert.
[2020-09-25] MEDS: levofloxacin-dextrose 5 % 750 MG/150 ML PREMIX 100 MG IV (11:35)
--- NOTE | 2020-09-25 12:13 | PC.NURSE ---
sitting up in bed h.r. up and b.p. up.
--- NOTE | 2020-09-25 13:39 | PC.NURSE ---
resting quieter. mom at bedside.
--- NOTE | 2020-09-25 20:40 | PC.NURSE ---
SCD's not in place due to IV's being in lower extremitie
[2020-09-25] MEDS: propofol 1,000 MG/100 ML INJ 20.8 MG IV (23:31)
[2020-09-26] VITALS (63 sets, daily range): BP systolic 97–155; BP diastolic 67–117; PULSE 70–112; RESP 8–26; TEMP 36.6–37.3; O2SAT 88–94
[2020-09-26] MEDS: ipratropium-albuterol 3 mL Neb INHALATION ×6 (02:59→23:21)
[2020-09-26] MEDS: piperacillin-tazobactam 3.375 GM in sodium chloride 0.9% (plus) 50 ML IV ×3 (03:42→20:37)
[2020-09-26 03:54] LABS: Hematocrit 40.3 % (42.0-52.0); Lymphocytes # 0.8 10^3/uL (0.8-4.8); Lymphocytes % 11.2 %; Mean Corpuscular HGB Conc 32.3 g/dL (30.0-36.0); Mean Corpuscular Hemoglobin 30.8 pg (28.0-34.0); Mean Corpuscular Volume 95.5 fL (80-94); Mean Platelet Volume 9.3 fL (7.4-10.4); Monocytes # 0.3 10^3/uL (0.2-0.9); Monocytes % 4.7 %; Neutrophils # 5.73 10^3/uL (1.8-7.7); Neutrophils % 83.4 %; Nucleated Red Blood Cells % 0 %; Platelet Count 194 10^3/cmm (130-400); Red Blood Count 4.22 10^6/uL (4.1-5.3); Red Cell Distribution Width 14.2 % (12.1-15.1); White Blood Count 6.9 10^3/uL (4.0-10.0)
[2020-09-26] MEDS: propofol 1,000 MG/100 ML INJ 20.8 MG IV (04:12)
[2020-09-26 04:26] LABS: Alanine Aminotransferase 51 U/L (0-41); Albumin Level 3.4 g/dL (3.5-5.2); Alkaline Phosphatase 68 IU/L (40-130); Anion Gap 9.9 (5-19); Aspartate Amino Transferase 60 U/L (0-40); Blood Urea Nitrogen 21 mg/dL (6-20); Calcium 8.4 mg/dL (8.5-10.5); Carbon Dioxide 30 mmol/L (22-29); Chloride 106 mmol/L (98-107); Globulin 2.6 g/dL (1.3-4.6); Glomerular Filtration Rate 115.4 mL/min (90-130); Glucose 112 mg/dL (65-115); Osmolality Calculated 298 mOsm/kg (285-295); Potassium 3.9 mmol/L (3.5-5.1); Sodium 142 mmol/L (136-145); Total Bilirubin 0.7 mg/dL (0.15-1.2)
--- NOTE | 2020-09-26 07:53 | PC.SOCIAL ---
IMM not Updated Pt is still intubated. Did not update IMM. Pt is not within 48hrs of discharge.
[2020-09-26] MEDS: pantoprazole 40 mg SDV IV ×2 (08:15→20:37)
--- NOTE | 2020-09-26 08:43 | PM.PN ---
Subjective Subjective: Interval history: Intubated, sedated. Yesterday weaning sedation he was following commands only sporadically. Apparently did perhaps weekly try to squeeze his hands although did not really do well with other commands, did not answer questions, did not track, he did not follow commands to move his legs. Overnight was noted to be sitting up. Sedation was increased. Vitals/I&O/Wt Last Vital Signs Temp 98.7 F 09/26/20 03:30 Pulse 74 09/26/20 08:06 Resp 15 09/26/20 07:54 BP 103/67 09/26/20 07:30 Pulse Ox 92 09/26/20 07:54 09/25/20 09/26/20 09/26/20 22:59 06:59 14:59 Intake Total 188.863 / 684.173 574.893 / 1259.066 138.471 / 138.471 Output Total 825 / 825 350 / 1175 Balance -636.137 / -140.827 224.893 / 84.066 138.471 / 138.471 Weight last 48 hrs Weight 76.839 kg Weight 77.337 kg Physical Exam Const: COMMON NORMALS: no acute distress; negative for patient oriented x3 GENERAL APPEARANCE: comfortable OTHER: Intubated, sedated. HENMT: COMMON NORMALS: oropharynx normal Eye: OTHER: Symmetrical pupils. Corneal reflex present. Neck/C-Spine: COMMON NORMALS: no JVD Resp: COMMON NORMALS: normal respiratory effort AUSCULTATION: diminished lung sounds (Improving) Cardio: COMMON NORMALS: no JVD, regular rhythm, S1 normal heart sound present, S2 normal heart sound present and No murmurs present (Cardio) RHYTHM: regular rhythm HEART SOUNDS: S1 normal heart sound present and S2 normal heart sound present GI: COMMON NORMALS: Normal to inspection, nondistended, normoactive bowel sounds present, Soft to palpation and non-tender PALPATION: Yes Soft to palpation Extremity: COMMON NORMALS: no joint enlargement and no pedal edema Neuro: COMMON NORMALS: moves all extremities; negative for patient oriented x3 Skin: COMMON NORMALS: no rashes or lesions noted GENERAL SKIN EXAM: no rashes or lesions noted Urinary Catheter Management^: Barba: Cath Placed During This Visit: yes Reason for Continuing Indwelling Catheter: Accurate Measurement of Urinary Output in Critically Ill Patients Urinary Catheter Date of Insertion: 09/21/20 Urinary Catheter Time of Insertion: 13:14 Data : 09/26/20 03:11 09/26/20 03:11 Micro: Microbiology 09/21/20 11:39 Blood Culture - Preliminary Blood Gram positive cocci Corynebacterium species A&P Assessment and plan (1) Acute encephalopathy: We will again attempt to wean sedation today. If not weaning well, obtain additional imaging with CT of the head. It appears to be perhaps sometimes following some commands, but sporadically. Blood pressure, heart rate increasing when weaning sedation. Continue daily reassessments. Supportive care for alcohol withdrawal. Continue supportive care. Continue Ativan per [facility] protocol for alcohol withdrawal. Continue weaning trials. If still not improving, consider additional evaluation. No signs of sepsis. No seizure-like activity. Continue supportive care. Continue weaning trials. Continue thiamine, folate, multivitamin. There are vague reports that he may have also overdosed on medication, possibly intentionally, in an intoxicated state took a number of Viagra tablets at the same time, although he reports. Not very reliable, coming from third person who we cannot reach, that person appears to be intoxicated at the same time with the patient. Additional report of possible additional surreptitious medication intake morning of admission. Blood pressure remained stable. Heart rates improved. CK normal. He will need psychiatric evaluation once he is able to speak with him. Afebrile, without signs of persistent sepsis. 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 Status: Acute (2) Acute on chronic respiratory failure with hypoxia and hypercapnia: FiO2 decreased down to 45%. Trial of weaning sedation today. If mental status improves, should likely be able to extubate. Alcohol withdrawal has been a barrier to successful weaning of sedation, extubation. Started tube feeds. Tolerating well so far. Did okay with tapering down the steroids. Continue Zosyn for aspiration pneumonia. At baseline on 4 L nasal cannula. Also with underlying pulmonary hypertension. Has not been able to receive his medications as these cannot be crushed and put down the NG. Lovenox for anticoagulation. Monitor for any bleeding. Discussed with his mother. She is coming to visit. Status: Acute (3) Alcohol intoxication: Now alcohol withdrawal. As above. Recurrent relapses. Previously spent 30 days in rehabilitation and appears did temporarily improve, but relapsed again. Mother unsuccessfully try to help him to set up with Alcoholics Anonymous. Status: Acute (4) Community acquired pneumonia: Continue Zosyn, Levaquin. Follow blood cultures. Scant normal arnie on sputum cultures. Status: Acute (5) COPD exacerbation: Taper down Solumedrol, Abx as above. Duoneb. Weaning trial. Status: Acute (6) Lactic acidosis: Likely secondary to alcohol intoxication, respiratory failure. Unknown if has history of cirrhosis. Status: Acute (7) Depression: Mother states recently depressed, has not expressed suicidal ideation, but question is of possible deliberate medication overdose possibly witnessed by a friend who is also his independent living caregiver, although this person was reported intoxicated at the time as well. Status: Acute (8) Deliberate medication overdose: Report by independent living caregiver and patient's friend Abdoul Dia given to patient's mother regarding patient taking an unspecified amount of Viagra pills from his bottle at the same time yesterday, while intoxicated. Report of possible additional surreptitious medication intake this morning, again while intoxicated. Mother states that no medications were found around the patient where he was. She is not sure whether this in fact happened. She states that details could not be obtained from patient's friend as he himself was intoxicated. Appears he is also intoxicated today when her daughter tried to reach and discussed with him today. I try to call him on the phone number provided [phone], but could not reach him, and voicemail is not set up. We will have to confirm with patient once he is able to communicate. He will need psychiatric evaluation before being able to discharge. Status: Acute (9) Suicide attempt: Report of possible suicide attempt as above. Status: Acute (10) HIV (human immunodeficiency virus infection): He is not so far received his HIV medication. This was brought in by his mother, however, has been conflicting reports as to whether he can be crushed and put in OGT. This will be confirmed again with pharmacy. Mother states he follows with ID clinic in [place]. Takes the bottle. Chronically on empiric Bactrim. Dates his counts have most recently been undetectable. Status: Chronic (11) History of peptic ulcer disease: History of hematemesis reported in the past. Mother states he has had EGD in the past, although is not sure how long ago, does not think he has had a recent one. She is not aware of history of esophageal or gastric varicose veins. Takes PPI at home. Status: Acute (12) Hemoptysis: We have not noted any bloody secretions, no bloody stools. Hemoglobin did decrease a bit, but has been in positive balance, and so dilutional effect is possible. Requested Hemoccult. Monitor for bleeding. Recheck hemoglobin. Continue PPI twice daily. Transition to Lovenox. Reported small amount of blood found on the floor near oxygen tank, unclear whether this was coughed up, but appeared to be perhaps with some sputum. Mother does say that they found some feces on the floor as well, although unclear whether either were belonging to the patient or his friend. Status: Acute (13) Hematochezia: IV Protonix twice daily 40 mg. Check Hemoccult with BM. Recheck hemoglobin. Monitor for bleeding. Change heparin drip to Lovenox. Hemoglobin remained stable while on anticoagulation, without any signs of bleeding. Will likely need outpatient follow-up for endoscopic evaluation. Status: Acute (14) Troponin level elevated: Mild elevation of troponin, without peak, follow-up complete troponin EKG series. Sinus tachycardia noted on presentation. Discussed with mother again cannot entirely exclude PE given history, unclear whether he was taking blood thinners. He did not have chest pain. EKG not suggestive of acute ischemia. Suspect this is likely demand, possibly from acute hypoxic and hypercapnic respiratory failure. Status: Acute (15) Serum lipase elevation: Incidentally noted mildly elevated lipase at 68. Normalized. Status: Acute Attestations Medical Necessity Statement*: Continue admission for assessment of management of severe alcohol withdrawal, supportive care, weaning trials off sedation, mechanical ventilator support until mental status is improving and for improving respiratory failure. Coding Level of Care Code Acute Cigar Head Pegger for [facility] Fwd Diagnoses Acute encephalopathy G93.40 Acute on chronic respiratory failure with hypoxia and hypercapnia J96.21; J96.22 Alcohol intoxication F10.929 Community acquired pneumonia J18.9 COPD exacerbation J44.1 Lactic acidosis E87.2 Depression F32.9 Deliberate medication overdose T50.902A Suicide attempt T14.91XA HIV (human immunodeficiency virus infection) B20 History of peptic ulcer disease Z87.11 Hemoptysis R04.2 Hematochezia K92.1 Troponin level elevated R77.8 Serum lipase elevation R74.8
[2020-09-26] MEDS: enoxaparin 80 mg/0.8 mL Syringe SUBCUT ×2 (09:05→21:10)
[2020-09-26] MEDS: folic acid 1 mg Tablet PO (09:05)
[2020-09-26] MEDS: multivitamin therapeutic Tablet 1 TAB PO (09:05)
[2020-09-26] MEDS: thiamine 100 mg Tablet PO (09:05)
[2020-09-26] MEDS: artificial tears Op Oint 3.5 gm 1 APPLIC EYE-BOTH ×2 (09:06→21:15)
--- NOTE | 2020-09-26 09:26 | PC.NURSE ---
pt. raised up trying to pull at e.t. restraints resecured. reminded pt. not to pull on tubes. earlier, squeezed my fingers on command, raised legs, tho weak, nods head yes.
--- NOTE | 2020-09-26 10:49 | CTR_ITS ---
PROCEDURE INFORMATION: Exam: CT Head Without Contrast Exam date and time: 09/26/2020 11:03 AM Age: 60 years old Clinical indication: Altered mental status/memory loss; Patient HX: PT on vent; Additional info: Not as responsive TECHNIQUE: Imaging protocol: Computed tomography of the head without contrast. Radiation optimization: All CT scans at this facility use at least one of these dose optimization techniques: automated exposure control; mA and/or kV adjustment per patient size (includes targeted exams where dose is matched to clinical indication); or iterative reconstruction. COMPARISON: CT head wo con* [id number] 09/21/2020 12:18 PM RADIATION DOSE METRICS: Total DLP (mGy-cm): 771.66 FINDINGS: Brain: Symmetric prominence of the cortical sulci. No acute cortical infarct, mass effect, or intracranial hemorrhage. Dural calcifications. Cerebral ventricles: Normal configuration of the ventricles. Bones/joints: No acute calvarial pathology. Paranasal sinuses: Localized inflammatory change in a right ethmoidal air cell. Mastoid air cells: A few opacified right mastoid air cells. Soft tissues: Unremarkable soft tissues. CT/CT head wo con* [id number] IMPRESSION: No acute intracranial pathology. Radiation Dose CTDIVOL = (mGy): DLP = 771.66 (mGy-cm)
--- NOTE | 2020-09-26 11:44 | PC.NURSE ---
back from ct. til. well. remains alert.
--- NOTE | 2020-09-26 11:54 | PC.NURSE ---
lab michael amended micro results reported on 09-24-20 as contaminate.
--- NOTE | 2020-09-26 13:00 | PC.NURSE ---
pt. to be extubated.
[2020-09-26] MEDS: levofloxacin-dextrose 5 % 750 MG/150 ML PREMIX 150 MG IV (13:20)
--- NOTE | 2020-09-26 14:27 | PC.NURSE ---
Addendum entered by Kaitlin Tomas RN 09/26/20 14:33: wasted with aurora Original Note: wasted 65ml. fentanyl. versed 42
--- NOTE | 2020-09-26 15:25 | PC.NURSE ---
1320 extubated to 5 l n.c.
--- NOTE | 2020-09-26 16:28 | PC.NURSE ---
resting quietly taking ice chips when awakened. tol. mireles. asking for dr. hodges.
--- NOTE | 2020-09-26 16:29 | PC.NURSE ---
mom commented prior to leaving that archie not just right . explained some of sedation is probably hanging on.
[2020-09-27] VITALS (39 sets, daily range): BP systolic 103–150; BP diastolic 78–99; PULSE 73–108; RESP 0–23; TEMP 36.4–37.3; O2SAT 86–95
[2020-09-27] MEDS: piperacillin-tazobactam 3.375 GM in sodium chloride 0.9% (plus) 50 ML IV (03:26)
[2020-09-27] MEDS: ipratropium-albuterol 3 mL Neb INHALATION ×6 (03:31→23:20)
[2020-09-27 04:30] LABS: Basophils % 0.1 %; Hematocrit 42.7 % (42.0-52.0); Hemoglobin 13.8 g/dL (11.7-16.6); Lymphocytes # 1.2 10^3/uL (0.8-4.8); Lymphocytes % 12.1 %; Mean Corpuscular HGB Conc 32.3 g/dL (30.0-36.0); Mean Corpuscular Hemoglobin 30.5 pg (28.0-34.0); Mean Corpuscular Volume 94.3 fL (80-94); Mean Platelet Volume 9.4 fL (7.4-10.4); Monocytes # 0.7 10^3/uL (0.2-0.9); Monocytes % 7.3 %; Neutrophils # 7.65 10^3/uL (1.8-7.7); Nucleated Red Blood Cells % 0 %; Platelet Count 193 10^3/cmm (130-400); Red Blood Count 4.53 10^6/uL (4.1-5.3); Red Cell Distribution Width 13.6 % (12.1-15.1); White Blood Count 9.6 10^3/uL (4.0-10.0)
[2020-09-27 05:03] LABS: Alanine Aminotransferase 49 U/L (0-41); Albumin Level 3.5 g/dL (3.5-5.2); Alkaline Phosphatase 77 IU/L (40-130); Anion Gap 11.4 (5-19); Aspartate Amino Transferase 36 U/L (0-40); Blood Urea Nitrogen 16 mg/dL (6-20); Calcium 8.3 mg/dL (8.5-10.5); Carbon Dioxide 29 mmol/L (22-29); Chloride 103 mmol/L (98-107); Globulin 2.8 g/dL (1.3-4.6); Glomerular Filtration Rate 170.2 mL/min (90-130); Glucose 94 mg/dL (65-115); Osmolality Calculated 291 mOsm/kg (285-295); Potassium 3.4 mmol/L (3.5-5.1); Sodium 140 mmol/L (136-145); Total Bilirubin 0.9 mg/dL (0.15-1.2); Total Protein 6.3 g/dL (6.6-8.7)
--- NOTE | 2020-09-27 07:23 | P.PN_ITS ---
Subjective Subjective: Interval history: Patient was evaluated in the ICU, he was saturating well on 7 L humidified high flow, I have requested CTA which did not reveal PE, patient did not complain of any new pain however endorsed mild abdominal discomfort, he recently had a bowel movement He has been afebrile Not endorsing new complaints Patient is stating that he is in the hospital because he was drunk, he is denying use of Viagra or any other IV drugs Vitals/I&O/Wt Last Vital Signs Temp 99.1 F 09/27/20 04:27 Pulse 78 09/27/20 06:00 Resp 17 09/27/20 06:00 BP 144/89 09/27/20 06:00 Pulse Ox 91 09/27/20 06:00 09/26/20 09/27/20 09/27/20 22:59 06:59 14:59 Intake Total 360 / 732.316 50 / 782.316 Output Total 2150 / 2150 1625 / 3775 Balance -1790 / -1417.684 -1575 / -2992.684 Weight last 48 hrs Weight 69.4 kg Weight 76.839 kg Physical Exam Narrative: EXAM NARRATIVE: Patient was laying comfortably in his bed when I entered the room, recently had a bowel movement Was saturating 90 to 91% on 7 L high flow No acute respiratory distress or chest pain S1, S2 no murmur appreciated no signs of heart failure Abdomen soft nontender bowel sounds sluggish No neurological deficit, EOMI, PERRLA Awake alert oriented x3 GCS 15 Lower extremity no edema gangrene or ulcer Patient seems to have withdrawn affect, flat affect Denies suicidal ideation or behavior Barba catheter was draining concentrated urine Urinary Catheter Management^: Barba: Cath Placed During This Visit: yes Reason for Continuing Indwelling Catheter: Accurate Measurement of Urinary Output in Critically Ill Patients Urinary Catheter Date of Insertion: 09/21/20 Urinary Catheter Time of Insertion: 13:14 Data : 09/27/20 03:11 09/27/20 03:11 Micro: Microbiology 09/21/20 11:39 Blood Culture - Preliminary Blood Corynebacterium species 09/21/20 11:39 Blood Culture - Final Blood NO GROWTH AFTER 5 DAYS A&P Additional A&P Information Assessment Patient required mechanical ventilation because of altered mental status and hypoxic hypercarbic respiratory failure with concern of polysubstance abuse at the time of ER evaluation, he has history of alcoholism, HIV, bipolar disorder,, there was some concern of taking unspecified amount of Viagra tablets as well. He does carry history of COPD, pulmonary hypertension, peptic ulcer disease Acute on chronic hypoxic hypercapnic respiratory failure Patient extubated on 09/26/2020 Currently saturating well on 7 L minified high flow CTA ruled out PE, I would discontinue therapeutic dose of Lovenox and keep him on DVT prophylactic dose Most likely this is related to aspiration pneumonia Encephalopathy secondary to intoxication Currently patient is awake and alert GCS 15, successfully extubated last night He will be evaluated by psychiatrist currently denying suicidal ideation or behavior No active signs of stroke or meningitis, he has stayed afebrile Aspiration pneumonia with COPD exacerbation No active signs of sepsis I will de-escalate his antibiotics to Augmentin, discontinue IV antibiotic, wean off oxygen gradually, home O2 evaluation before discharge DuoNeb every 4 as needed Medication overdose and depression Currently denying suicidal attempt, will follow up with psychiatrist recomme ndations Continue HIV medication Peptic ulcer disease There was some report of hematochezia hemoglobin has stayed stable I will de- escalate to Protonix once daily and discontinue steroids Will follow up with Hemoccult stool test Full code Regular diet DVT prophylaxis Lovenox Anticipating discharge in next 48 hours depending on psychiatry's evaluation Attestations Medical Necessity Statement*: Transfer patient out of ICU to [facility], will monitor and follow-up with psychiatrist recommendations, currently needing inpatient hospitalization because of above-mentioned concerns Time Spent in Patient Care: less than 15 minutes (>than 50% of time spent in counselling and/or direct pt care on unit) . 30mins Critical Care Time: Critical Care Time (min): 30 Coding Level of Care Code Acute Tape Rules Printing Machine Operator for Osmin Ordonez
--- NOTE | 2020-09-27 07:47 | CT_ITS ---
WS: [id number] CTA OF THE CHEST WITH PULMONARY EMBOLISM PROTOCOL TECHNIQUE: High-resolution contrast enhanced CTA of the chest with coronal and sagittal reformatted i mages with pulmonary embolism protocol. MIP images are also reviewed. CLINICAL INFORMATION: PE COMPARISON: June 29, 2020 DLP: 584.[address] scans at [facility] use at least one of these dose optimization techniques: automat ed exposure control; mA and/or kV adjustment per patient size (includes targeted exams where dose is matched to clinical indication); or iterative reconstruction. FINDINGS: Proximal main pulmonary arteries are normal. Normal segmental and subsegmental pulmonary arteries. No evidence of pulmonary embolus. Enlargement of the central pulmonary arteries consistent with pulmona ry arterial hypertension. Normal caliber thoracic aorta. No mediastinal or hilar lymphadenopathy. No axillary lymphadenopathy. Subsegmental atelectasis with air bronchograms in the right middle lobe. Bibasilar atelectasis. Advan see chronic emphysematous changes. Normal thoracic spine. CT/CT angio chest PE protcl [id number] IMPRESSION: 1. Proximal main pulmonary arteries are normal. No evidence of pulmonary embol us. 2. Advanced chronic emphysematous changes. 3. Subsegmental atelectasis right middle lobe with a few air bronchograms. 4. Subsegmental atelectasis in the lung bases. 5. No focal pneumonia or significant pleural fluid. 6. Enlarged central pulmonary arteries can be seen with pulmonary arterial hyp ertension.
[2020-09-27] MEDS: thiamine 100 mg Tablet PO (08:13)
[2020-09-27] MEDS: amoxicillin-clav 875-125 mg Tablet 1 TAB PO ×2 (08:13→18:17)
[2020-09-27] MEDS: nystatin 100,000 unit/mL UDC 5 mL 500000 UNIT PO ×4 (08:13→20:59)
[2020-09-27] MEDS: multivitamin therapeutic Tablet 1 TAB PO (08:13)
[2020-09-27] MEDS: folic acid 1 mg Tablet PO (08:14)
[2020-09-27] MEDS: enoxaparin 80 mg/0.8 mL Syringe SUBCUT (09:08)
[2020-09-27] MEDS: MACITENTAN 10 MG 10 EACH PO (09:08)
--- NOTE | 2020-09-27 09:40 | PC.CHAP ---
Pastoral Care Encounter/Spiritual Assessment Type of Contact [] Declined key filer visit [] Patient/Family/Request visit [] Outpatient visit [] Follow-up visit [] Physician referral [] Code/Alert [x] Routine visit [] Staff referral [] Actively dying [] Patient sleeping [] Family support [] [] Out of room [] Palliative care [] [] Receiving care in room [] Pre-surgical visit [] Trauma [] Long length of stay [x] ICU visit [] Other: Relational/Emotional Strength [] Patient feels connected with others/family/visitors/staff [] Distress [] Loneliness/isolation [] Abandonment Spirituality of Patient [] Person of Talia [] Attends [employer] of their Talia [] Believes in Prayer [] Reads Bible or Congregational materials [] There are Spiritual issues to be addressed Freight Team Associate Interventions [x] Prayer [] Active listening [] Non-anxious presence [] Spiritual/emotional support [] Crisis/trauma care [] Spiritual counseling [] Bereavement support [] Provided bereavement packet [] Provided Bible/devotional materials [] Provided toy/stuffed animal, coloring book to patient or family member [] Provided Communion [] Anointing/[place] [] Salvation [x] Completed spiritual assessment [] Other: Impact on Illness or Injury [] Angry [] Fearful [] Anxious [] Often cries [] Exhaustion [] Unable to work [] Unable to attend sikhism [] Unable to walk/stand [] Unable to read [] Unable to drive [] Unable to eat/drink [] Unable to sleep [] Unable to be with family [] Patient intubated [] Other: Summary Time spent with patient
[2020-09-27] MEDS: LORazepam 2 mg Tablet PO (10:07)
[2020-09-27] MEDS: iohexol 350 mg/mL 100 mL Btl IV (10:45)
[2020-09-27] MEDS: pantoprazole DR 40 mg Tablet PO (11:02)
[2020-09-27] MEDS: LORazepam 2 mg/mL INJ 1 mL IVP (14:26)
--- NOTE | 2020-09-27 16:47 | PM.PSYCN ---
Providers/Reason for Consult Consulting Physican/Specialty*: Niko Bang MD. Psychiatry. Reason for Consult*: Altered mental status Attending Physician: Kenny Osborn MD Primary Care Provider: Rasheed Spivey MD Psych Consult HPI History of Present Illness Flakito Almanzar is a 60 year old male who presented to the emergency department with the following report: Chief Complaint: Altered Mental Status Stated Complaint: ETOH, AMS Time Seen by Provider: 09/21/20 11:13 History of Present Illness: HPI narrative: 60-year-old male with a history of HIV. He is a known history of heavy drinking. He was found unresponsive by PD became combative and required restraints in route he was given 2 mg of Ativan. Family reports he is been drinking heavily heavily recently and also there is report of bright red blood per rectum. Patient is chronically on 4 L by nasal cannula. He has a Glascow coma scale of 12 on arrival here. MD complaint: altered mental status and intoxication Onset (ago): hour(s) Severity: severe Context: alcohol abuse Treatments prior to arrival: IV fluid and oxygen. He was admitted to the ICU for definitive treatment of those issues. After days of intubation and stabilization he was transferred to the [facility] unit for continued care. As he was being extubated a psychiatric consult was initiated to assist in determining appropriate discharge. Today Flakito, who is known to this policy writer typist from numerous contact, presented with a very similar pattern. He very much downplaying the need for additional services at a higher level of care and once again reverted back to his I just have to beat it! Mentality. We had a long discussion about how the answer to his situation is not great for determination but higher level of care. He continues, as he has for some time, to be resistant to the idea of a higher level of care. His mother was present and she agrees and at this point him going home and just trying to not drink is a recipe for no change. We discussed our recommendation that he commit himself to a longer sobriety inpatient treatment option whether that 60, 90, 180 or 1 year. He did complete a 30-day program he reported in the last year the beginning of this year but it was not sufficient to get him a prolonged period of sobriety. With his oxygen requirement, his HIV and his level of unreliable alcohol consumption is just a matter of time before a very negative outcome presents itself. An excerpt of his last inpatient evaluation is included below for context as he was a fairly resistant historian. He denies any substantive changes to his circumstances. Per his 07/11/2020 [facility] inpatient psychiatric evaluation: History of Present Illness Flakito Almanzar is a 60 year old male who presented to the ED with the following report: Chief Complaint: Psychiatric Symptoms Stated Complaint: SI Time Seen by Provider: 07/10/20 17:16 Source: EMS and police Mode of arrival: EMS Limitations: altered mental status History of Present Illness: HPI Narrative: Unable to obtain a history from the patient as he has been given 100 mg of ketamine by EMS. He was brought in by EMS on [employer]. The patient apparently made several comments to different people that he was going to kill himself tonight and police was therefore called. The patient was not cooperative and tried to jump out of the ambulance he was therefore given ketamine at a time. He has a history of COPD and wears 4 to 5 L of oxygen all the time. The patient is unable to give me history. MD complaint: suicidal ideation. Brought presented to the neuropsychiatric unit for definitive treatment of those issues. Today he presents as he often does reporting that he is not suicidal now and is not sure why anyone said that. However he is on a 96-hour hold and the affidavits state that he in fact reported being suicidal to the officers on the scene. We discussed the treatment team convening tomorrow morning and that we would discuss his discharge planning and explore concerns about lethality each day and discharge as soon as it appears appropriate. We reviewed his history and he denies any substantive changes so an excerpt for the last inpatient contact has been included below. He did talk about having a wonderful life with his partner for about 28 years and then in the last 5 years drinking has been a problem since that significant support has been absent in his life. He had no clear plan about how he would decrease his drinking though he reports it has been less lately. Per his 04/13/2020 inpatient psychiatric consult: History of Present Illness Flakito Almanzar is a 59 year old male who presented to the emergency room with the following report: Mr. Almanzar is a 59-year-old male who arrives via EMS after receiving sedation for agitation and combativeness. He received ketamine IM to control his aggression. Information is second and stone hand but the best I can ascertain the patient was found to have possibly overdosed. He admitted to police he took 30 trazodone but upon inspection of the room he was in multiple medicine bottles were empty. It is undetermined what the patient took or how much. No further history can be obtained. He was admitted to the ICU for definitive treatment of those issues. A psychiatric consult was obtained to determine whether he was safe for discharge. He is known to this policy writer typist through multiple previous admissions and excerpt of the last admission is included below for context. He was very resistant as a historian as we discussed the circumstances that brings him back here. He reports that he did go to a rehab like he was supposed to after our last contact and stayed there for 30 days. He reports that he went home and stop talking after that. was home for about 30 days and then reportedly inexplicably he began to drink and reports that he has drank 4 times prior to coming here intoxicated. He did not reveal with this policy writer typist that attempt. And only endorsed that he wanted to go home. We discussed the fact that he was on a 96-hour hold and he essentially stopped talking. We discussed the fact that given the emergency room report he would at least need to be evaluated in the neuropsychiatric unit. Per his last IP [facility] eval: History of Present Illness Flakito Almanzar is a 59 year old male who presented to the emergency room on 01-19-20 and was brought in with his Air Defense Control Officer. This was a month after his previous hospitalization to the ICU for alcohol use, where he refused rehabilitation. He reportedly had been drinking a 24 pack of beer plus hard liquor everyday, for months, and he had reportedly threatened suicide several times. He was admitted to the ICU for definitive treatment of those issues. After two days in the ICU, he left the hospital against medical advise, and he returned on 01-20-20 late at night, and it had been identified that he had just left AMA; he was quite intoxicated and was in respiratory distress, only citing at 80% on 6 liters of oxygen and unable to give a history because of his intoxication and respiratory distress. So he was once admitted to the ICU for definitive treatment for his withdrawal and respiratory distress. Once he was medically cleared from the ICU, he was transferred to the neuropsychiatric unit for definitive treatment of his alcohol use disorder, depression, and suicidality. He presents today still resistant to the idea of inpatient rehabilitation. He was open to the idea of the utilization of Disulfiram / Antabuse after discussing the risks, benefits, and alternatives, but is resistant to the idea of rehab. We discussed the fact that his mom was planning on possibly challenging him in court to force him to go to an inpatient detox, against his will, which he was very upset about. We had a long discussion about how, at this point, his decision making is so flawed in relation to his alcohol that everyone treating him has grave concerns about which time we hear about him that is going to be the last time, due to how out of control his drinking is in relation to his overall medical issues. Ultimately, he seemed accepting that there was a high likelihood that we would support him being sent to rehab on a forced court order. We reviewed his last hospitalization notes, and he agreed that there had been no substantive changes and it represented his psycho-social history appropriately. Per his last [facility] eval 12/15/19: History of Present Illness Flakito Almanzar is a 59 year old male who presented to the emergency room intoxicated with a 96-hour hold affidavit stating he threatened to kill himself. He endorsed drinking heavily due to voices in his head. He was admitted on a 96-hour hold to the ICU for definitive treatment of his alcohol withdrawal and a psychiatric consult was initiated. Flakito was found to be cogent at the time of the interview reporting that he had gone to a rehab as planned but that he left after a few days secondary to being the oldest person there. This policy writer typist challenged that is a real reason to leave the rehab and he showed some sense of humor. He then very quickly started talking about discharge and ending the 96-hour hold what he thought was unfair. I explained that first of all he is not medically cleared and he is in an ICU. We discussed the fact that it is our assessment that him going to a rehab for 30, 60, 90, 180 days presents on the best chance of maintaining his sobriety. He claims that after he left the rehab that he was sober for weeks but based on his history it is unclear that that is unlikely reality. We reviewed his most recent evaluation here and he denies any substance of changes in his history so an excerpt was included below. Per last [facility] eval: History of Present Illness Flakito Almanzar is a 59 year old male who presented to the emergency room intoxicated again. There have been a call from his mother the day before that he had been drinking again and talking about admission. Reportedly he has not been drinking for that long. In the past several hospitalizations he has said he would do inpatient r only to ehab retract that at discharge and then either not go to outpatient rehab or go to outpatient rehab and then slip-up. We have advised him the last couple of times that inpatient rehab is really the only vehicle through which we see success for him. He presents today reporting that he is ready to go to inpatient rehab. He denied lethality he endorsed some depression but reported that he just cannot seem to stay sober and he acknowledges that he needs to go to inpatient services to have a chance for success. His last [facility] eval is included below. We reviewed that he denied any changes to his psychosocial situation. He still lives along he still has his mom and his rn radiation oncology as his significant supports. His rn radiation oncology was here when I arrived. Per last [facility] eval: HPI NPU History of Present Illness Flakito Almanzar is a 59 year old male who presents today as he has multiple times recently intoxicated and endorsing depression. His mother called and reported that he had gone to the outpatient rehab 3 times and then never returned. He spent the last week getting drunk with an individual that he had agreed he would avoid during this critical. When he is so vulnerable. She reported that he threatened to kill his stepfather while in an intoxicated state. He was very resistant to the initial interview though we reviewed his previous psychosocial information that can be seen below. We discussed his continued presentation with resistance for inpatient rehab followed by discharge to some outpatient services and generally return to drinking within a week to 2 weeks if not sooner. We discussed the reality of the situation and the need for him to get 30/60/90 days sobriety to allow his mind to function and make decisions that are in his best interest. Especially given his other medical comorbidities as we discussed in his last visit the impact of his drinking on his already taxed immune system. We discussed the risks benefits and alternatives of different interventions and he understood and agreed to proceed with us finding him an inpatient rehab bed. D/C summary including recent pertinent psychosocial information: Discharge Diagnosis (1) Alcoholic intoxication: Status: Resolved Qualifiers: Complication of substance-induced condition: with unspecified complication Qualified Code(s): F10.929 - Alcohol use, unspecified with intoxication, unspecified (2) Depression with suicidal ideation: Status: Resolved Reason for Visit Reason for Visit: Reason For Visit: ETOH INTOX;SI 96 HOUR HOLD Brief History: Psych Consult HPI History of Present Illness Flakito Almanzar is a 59 year old male known to this policy writer typist the previous interactions as he has been to the neuropsych unit 3 times since last March and this is the second ICU consult by this policy writer typist on Flakito since then. He has generally come in with suicidal thinking, depression and alcohol use/intoxication, been managed appropriately in the ICU, gone to the neuropsych unit for mental health treatment and been discharged without major incident. Unfortunately multiple times he has reported a plan to go to inpatient rehabilitation, and that has never actually happened. At some point prior to discharge he gives some intellectualized response as to why it's impossible or not the best for him that he go to the inpatient rehabilitation. Those things include commitments to the charge, commitments to school in his academic pursuits, as well as personal desires not to go. Today we discussed his presentation and concerns about lethality which he downplayed. He reported that he loves himself too much to commit suicide, that he knows we'll be sending us guide the committed suicide, as well as other reasons. He then went on to say that he would not be seen by this policy writer typist again, he was discharged. It seemed peculiar way that he said it. He tried to say that he would not be coming back here, because he wasn't going to drink, but it did not seem that was what he meant. He tried to say that he had plans to go to rehabilitation in the morning and that this had been prearranged. That has mother was aware and that he had to leave tonight so that he can get some things done that only he could do prior to going for 30 days. His demeanor raised enough concern that I discussed with Dr. Dunbar that we needed to confirm with his mother that this was a known plan otherwise it raises concerns that he was trying to discharge to possibly harm himself. Otherwise he reported that there have been no changes in his psychosocial conditions. He reports that his history and situation had not changed and was consistent with my previous interview in March which can be seen below. Per last consult: History of Present Illness Date of Service: Apr 04, 2019 Reason for Consultation: Intoxication with reported aggressive threats Consulting Service and Doctor: Niko Bang M.D. Psychiatry. HPI: Flakito presents today somewhat lethargic having had a significant amount of Ativan to combat his alcohol withdrawal reporting that he's been having a fairly tough time recently. He reports that alcohol use has changed to an alarming level the last year and reports that the issue surrounds dealing with his homosexuality and the fact that he feels unworthy of guys love given his of homosexuality. He denies having any significant mental health treatment or hospitalizations or any problems and reports that he grew up in a fairly uatsdin family and reports that about a year ago he began to really struggle with his known homosexuality to himself but reports that he began living a clearly homosexual life which she is struggle with from a spiritual standpoint. Records show confusing contradictions as he has had the diagnosis of HIV for some time and is unclear how that occurred however this is how he reports the story. He reports that he has been drinking about 4 pints of alcohol a day and reports that that has been going on for about a year. He reports he is probably only had a day here and there that he hasn't had a drink in this period of time. He also identifies that about 2 weeks ago he had a 1 or 2 day cessation of drinking where and he had a withdrawal seizure. He had reached out to [facility] or this may have occurred during his emergency room stent however there is reportedly a bed available for him but we discussed the risks benefits and alternatives of home taking that bed with an understanding that he needs to be through the detox aspect of the situation prior to going to [facility]. His blood alcohol was 400 at about noon yesterday. He had gone to the emergency room and then left and apparently when he left the went home and had another pint of alcohol and was found unconscious and brought back to the emergency room which is how he got into the ICU. He reports a plan and agreement to work with the treatment team and psychiatric services to try to get him in a condition that it is safe for him to go to [facility] on Sunday at 8 AM when they would pick him up here at [facility]. Active Meds: Current Hospital Medications: Medications (Trade) Dose Ordered Sig/Stanford Route PRN Reason Start Time Stop Time Status Last Admin Dose Admin Potassium Chloride/Sodium Chloride 1,000 ml @ 125 mls/hr CONT IV 04/03/19 15:15 Hold 04/04/19 09:12 Thiamine Mononitrate (Thiamine Tab) 100 mg DAILY PO 04/04/19 10:00 04/04/19 09:10 Multivitamins Therapeutic (Therapeutic Multivitamin) 1 ea DAILY PO 04/04/19 10:00 04/04/19 09:10 Folic Acid/ Cyanocobalamin/ pyridoxin (Folic Acid Tab) 1 mg DAILY PO 04/04/19 10:00 04/04/19 09:10 Lorazepam (Ativan Inj) 2 mg PRN PRN IV FOR WITHDRAWAL 04/03/19 15:15 04/04/19 13:00 Lorazepam (Ativan Inj) 2 mg PRN PRN IM for Withdrawal 04/03/19 15:15 Lorazepam (Ativan Tab) 2 mg PRN PRN PO Withdrawal 04/03/19 15:15 04/04/19 16:07 Acetaminophen (Tylenol Tab) 650 mg Q4H PRN PO FOR MILD PAIN 04/03/19 15:15 Ondansetron HCl (Zofran Inj) 4 mg Q6H PRN IV FOR NAUSEA AND VOMITING 04/03/19 15:15 Pantoprazole Sodium (Protonix Tab) 40 mg DAILY PO 04/04/19 10:00 04/04/19 09:10 Enoxaparin Sodium (Lovenox) 40 mg Q24H SUBCUT 04/03/19 15:15 04/04/19 16:07 Nicotine (Nicoderm Patch) 21 mg DAILY PRN TD 04/04/19 04:30 04/04/19 05:05 Dexmedetomidine HCl 400 mcg/ Sodium Chloride 104 ml @ 0 mls/hr CONT IV 04/04/19 10:00 04/04/19 10:18 Haloperidol Lactate (Haldol Inj) 5 mg Q3H PRN IM FOR AGITATION 04/04/19 13:30 Home Meds: Home Medications: Active Reported [Opsumit] 1 Tab PO DAILY Symbicort 80-4.5 Mcg Inhaler (Budesonide/Formoterol Fumarate) 10.2 Gm Inhaler 2 Puff INH BID Iron Sulfate 325MG Tab (Ferrous Sulfate) 325 Mg Tabec 325 Mg PO BREAKFAST Diflucan Tab (Fluconazole) 100 Mg Tablet 100 Mg PO DAILY Wellbutrin XL (Bupropion HCl) 150 Mg Tab.sr.24h 150 Mg PO DAILY Trazodone Tab (Trazodone HCl) 150 Mg Tablet 300 Mg PO BEDTIME Klor Con Tab (Potassium Chloride) 20 Meq Tab.prt.sr 20 Meq PO TID Protonix Tab (Pantoprazole Sodium) 40 Mg Tabec 40 Mg PO DAILY [Descovy] 1 Tab PO DAILY Isentress Chew Tab (Raltegravir) 100 Mg Tab.chew 400 Mg PO BID Xanax Tab (Alprazolam) 0.25 Mg Tab 0.25 Mg PO TID Oxycodone IR (Oxycodone HCl) 30 Mg Tab 30 Mg PO QID PRN Duragesic Patch (Fentanyl) 50 Mcg Patch 50 Mcg TD Q72H Prednisone Tab (Prednisone) 10 Mg Tablet 20 Mg PO DAILY Narcan (Naloxone HCl) 4 Mg/Actuation [place] 4 Mg NASAL ONCE PRN 1 Days Cartia XT (Diltiazem HCl) 240 Mg Cap.sr.24h 240 Mg PO DAILY Pradaxa Cap (Dabigatran) 150 Mg Capsule 150 Mg PO BID Voltaren Gel (Diclofenac Gel) 100 Gm Gel..gm. 1 Applic TOP QID PRN Past Medical History Past Medical History: Please see ED and ICU notes for additional history. Other Family Medical History: He denies significant mental health, addiction or other issues in his family. He denies any history of suicide attempts or completions in his family. Other Past Social History: Developmental history: Flakito reports being the product of a normal . He endorses that he learn to walk and talk and met his development milestones on time. He denied any speech therapy, learning support, emotional support special education classes. Psychosocial history: He reports being the only child of his parents and that they were together when he was born. He denies any other siblings through their union with any other partners and reports that they never . He reports that his childhood was good but he was raised in a fairly uatsdin family went to restoration on Sundays and Wednesdays at least. He reports he graduated from high school. He endorses being homosexual and his long-term relationship has not been very long. He denies ever being , never had any children, never been in the he endorses being a Rastafari. He reports his longest tenure in any job was about 7 years. He reports he lives in a house alone. He denies any significant legal history. Meds Current Medications: Current Medications Generic Name Dose Route Start Last Admin Trade Name Freq PRN Reason Stop Dose Admin Albuterol/Ipratrop ium 3 ml 09/21/20 20:27 09/28/20 03:44 Ipratropium-Albu terol 3 Ml Neb INHALATION 3 ml Q4H.RESPIRATORY S CH Administration Amoxicillin/Clavul anate Potassium 1 tab 09/27/20 09:00 09/27/20 18:17 Amoxicillin-Clav 875-125 Mg Tablet PO 1 tab BID [facility] Administration Protocol Artificial Tears 1 applic 09/26/20 09:00 09/27/20 20:59 Artificial Tears Op Oint 3.5 Gm EYE-BOTH 1 applic BEDTIME [facility] Administration Folic Acid 1 mg 09/22/20 09:00 09/27/20 08:14 Folic Acid 1 Mg Tablet PO 1 mg DAILY [facility] Administration Lorazepam 2 mg 09/21/20 20:27 09/22/20 00:38 Lorazepam 2 Mg/M l Inj 1 Ml IM 2 mg Q4H PRN Administration ALCOWD Protocol Lorazepam 2 mg 09/21/20 20:27 09/27/20 14:26 Lorazepam 2 Mg/M l Inj 1 Ml IVP 2 mg PRN PRN Administration WITHDRAWAL Protocol Lorazepam 2 mg 09/21/20 20:27 09/27/20 10:07 Lorazepam 2 Mg T ablet PO 2 mg Q4H PRN Administration WITHDRAWAL Protocol Multivitamins Ther apeutic 1 tab 09/22/20 09:00 09/27/20 08:13 Multivitamin The rapeutic Tablet PO 1 tab DAILY [facility] Administration Non-Formulary Medi cation 1 tab 09/24/20 10:30 09/27/20 08:08 Dolutegravir-Vega ivudine [Dovato] OG-TUBE 1 tab DAILY@07 [facility] Administration Non-Formulary Medi cation 10 mg 09/27/20 07:00 09/27/20 09:08 Macitentan [Opsu nathaniel] PO 10 mg DAILY@07 [facility] Administration Nystatin 500,000 unit 09/27/20 07:50 09/27/20 20:59 Nystatin 100,000 Unit/Ml Udc 5 Ml PO 500,000 unit QID [facility] Administration Ondansetron HCl 4 mg 09/21/20 20:27 09/27/20 21:06 Ondansetron 2 Mg /Ml Sdv 2 Ml IVP 4 mg Q6H PRN Administration NAUSEA AND VOMITI NG Pantoprazole Sodiu m 40 mg 09/27/20 10:47 09/27/20 11:[address] 40 Mg Tablet PO 40 mg DAILY [facility] Administration Fluticasone/Salmet saundra 1 puff 09/27/20 08:00 09/27/20 20:12 Fluticasone-Salm eterol 250-50 Disk us INHALATION 1 puff BID.RESPIRATORY S CH Administration Thiamine Mononitra te 100 mg 09/22/20 09:00 09/27/20 08:13 Thiamine 100 Mg Tablet PO 100 mg DAILY [facility] Administration PFSH NPU PFSH: Medical History Anorexia Atrial fibrillation Colon polyps COPD (chronic obstructive pulmonary disease) Severe COPD Depressive disorder Diverticulitis / Diverticulosis GI bleed Was taken off Coumadin for a month in 2015 after a bleeding gastric ulcer, currently on Eliquis History of peptic ulcer disease HIV (human immunodeficiency virus infection) Hypogonadism Liver tumor Lymphoma 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 No evidence of recurrence, currently getting ANIMAL RESEARCHER prophylaxis with intrathecal methotrexate with prophylactic radiation to right testicle, CHOP treatment Meningitis Orchialgia Pulmonary embolism DVT of right leg, 2009 Pulmonary hypertension After PE Surgical History H/O colonoscopy 2001 -diverticulosis, colon polyps / 2005 -diverticulosis, small telangiectasia / 01/2016 -diverticulosis with intrinsic stenosis and sigmoid H/O esophagogastroduodenoscopy 2005 -reflux esophagitis, superficial gastric erosions with hemorrhagic gastritis, duodenitis /2008 -reflux esophagitis, gastritis, small chronic gastric ulcer H/O hemorrhoidectomy History of orchiectomy, unilateral L -- diffuse large B-cell lymphoma Family History Other No pertinent family history Social History Smoking and tobacco status: current every day smoker cigarettes Packs smoked per day: 2 Alcohol intake: current Household members: family Housing: House Mental Status Exam MSE Comments: This is a slender white male in hospital gown with limited grooming and eye contact. No abnormal movement except for psychomotor retardation. Semicooperative with exam in mild distress. Speech was limited and decreased rate and volume. Mood described as I will note, affect subdued. Thought process organized. Thought content: Patient denied suicidal or homicidal ideation, there were no delusions reported or noted, he denies any auditory visual hallucinations. Attention and concentration were limited and memory was unreliable but none were formally tested. He is alert and oriented x3. Insight and judgment are impaired and impulse control is impaired. Vitals/I&O/Wt Last Vital Signs Temp 98.9 F 09/27/20 14:54 Pulse 103 H 09/27/20 14:54 Resp 18 09/27/20 14:54 BP 125/87 09/27/20 14:54 Pulse Ox 90 09/27/20 14:54 09/27/20 14:59 Intake Total 770 / 770 Output Total 450 / 450 Balance 320 / 320 Weight last 48 hrs Weight 69.536 kg Weight 69.4 kg Physical Exam Urinary Catheter Management^: Barba: Cath Placed During This Visit: yes, but has since been removed by the nurse Reason for Continuing Indwelling Catheter: Acute Urinary Retention or Obstruction Urinary Catheter Date of Insertion: 09/21/20 Urinary Catheter Time of Insertion: 13:14 Date Urinary Catheter Removed: 09/27/20 Time Urinary Catheter Discontinued: 10:00 Data NPU Micro: Micro: Microbiology 09/21/20 11:39 Blood Culture - Fi nal Blood Corynebacterium species 09/27/20 08:45 Occult Blood (FIT) - Final Stool Routine Col lection Microbiology 09/21/20 11:39 Blood Blood Culture - Final Corynebacterium species 09/27/20 08:45 Stool Routine Collection Occult Blood (FIT) - Final A&P Assessment and plan (1) Serum lipase elevation: Status: Acute (2) Troponin level elevated: Status: Acute (3) Hematochezia: Status: Acute (4) Hemoptysis: Status: Acute (5) Suicide attempt: Status: Acute (6) Deliberate medication overdose: Status: Acute (7) Depression: Status: Acute (8) Lactic acidosis: Status: Acute (9) COPD exacerbation: Status: Acute (10) Community acquired pneumonia: Status: Acute (11) Acute on chronic respiratory failure with hypoxia and hypercapnia: Status: Acute (12) Alcohol intoxication: Status: Acute (13) Acute encephalopathy: Status: Acute (14) Posttraumatic stress disorder: Status: Chronic (15) Alcohol use disorder: Status: Chronic (16) Major depressive disorder: Status: Chronic (17) HIV (human immunodeficiency virus infection): Status: Chronic Additional A&P Information This is a 60-year-old white male with a long history of alcohol addiction, HIV, major depression with frequent hospitalizations with ICU stays and inpatient psychiatric treatment who presents after a questionable intentional overdose who presents not interested in any changes in his treatment to address his okp-gq-yutopem alcohol use. 1. Continue current medication. 2. Continue every 15 minute checks for safety. 3. Encourage individual, group and milieu therapies. 4. Encourage sober living treatment after discharge in the inpatient program. He continues to be resistant to this and we will explore the obstacles to getting a court ordered inpatient rehab of an extended variety 90 days to 1 year. Involuntary Hold Information 96 Hour Hold: 96 Hour Involuntary Admission: Yes 96 Hour Hold Ending Date: 07/16/20 96 Hour Hold Ending Time: 21:31 Attestations NPU Medical Necessity Statement*: N/A. Please see primary team note for medical necessity. However do recommend long-term inpatient rehab to address the heavy alcohol addiction. Coding Level of Care Code Acute Bridges And Buildings Supervisor for Osmin Ordonez Diagnoses Serum lipase elevation R74.8 Troponin level elevated R77.8 Hematochezia K92.1 Hemoptysis R04.2 Suicide attempt T14.91XA Deliberate medication overdose T50.902A Depression F32.9 Lactic acidosis E87.2 COPD exacerbation J44.1 Community acquired pneumonia J18.9 Acute on chronic respiratory failure with hypoxia and hypercapnia J96.21; J96.22 Alcohol intoxication F10.929 Acute encephalopathy G93.40 Posttraumatic stress disorder F43.10 Alcohol use disorder Major depressive disorder F32.9 HIV (human immunodeficiency virus infection) B20
--- NOTE | 2020-09-27 17:32 | PC.NURSE ---
Dr Osborn notified that patient choked on lunch and is choking on dinner. Requesting different diet and possible swallow eval.
[2020-09-27] MEDS: artificial tears Op Oint 3.5 gm 1 APPLIC EYE-BOTH (20:59)
[2020-09-27] MEDS: ondansetron 2 mg/ML SDV 2 mL 4 MG IVP (21:06)
[2020-09-28] VITALS (19 sets, daily range): BP systolic 98–132; BP diastolic 67–83; PULSE 64–104; RESP 16–20; TEMP 36.5–36.9; O2SAT 85–98
[2020-09-28] MEDS: ipratropium-albuterol 3 mL Neb INHALATION ×6 (03:44→23:55)
[2020-09-28 06:18] LABS: Eosinophils % 0.5 %; Hematocrit 45.3 % (42.0-52.0); Hemoglobin 14.9 g/dL (11.7-16.6); Lymphocytes # 1.4 10^3/uL (0.8-4.8); Lymphocytes % 19.1 %; Mean Corpuscular HGB Conc 32.9 g/dL (30.0-36.0); Mean Corpuscular Hemoglobin 30.6 pg (28.0-34.0); Mean Platelet Volume 9.5 fL (7.4-10.4); Monocytes # 0.8 10^3/uL (0.2-0.9); Monocytes % 10.9 %; Neutrophils # 5.06 10^3/uL (1.8-7.7); Nucleated Red Blood Cells % 0 %; Platelet Count 161 10^3/cmm (130-400); Red Blood Count 4.87 10^6/uL (4.1-5.3); Red Cell Distribution Width 13.5 % (12.1-15.1); White Blood Count 7.3 10^3/uL (4.0-10.0)
[2020-09-28 07:00] LABS: Alanine Aminotransferase 36 U/L (0-41); Albumin Level 3.7 g/dL (3.5-5.2); Alkaline Phosphatase 76 IU/L (40-130); Aspartate Amino Transferase 26 U/L (0-40); Blood Urea Nitrogen 15 mg/dL (6-20); Calcium 8.4 mg/dL (8.5-10.5); Carbon Dioxide 29 mmol/L (22-29); Chloride 103 mmol/L (98-107); Globulin 2.7 g/dL (1.3-4.6); Glomerular Filtration Rate 170.2 mL/min (90-130); Glucose 80 mg/dL (65-115); Osmolality Calculated 292 mOsm/kg (285-295); Sodium 141 mmol/L (136-145); Total Bilirubin 1.1 mg/dL (0.15-1.2); Total Protein 6.4 g/dL (6.6-8.7)
--- NOTE | 2020-09-28 07:07 | PC.NURSE ---
SHIFT NOTE: AT APPROXIMATELY 0300 THE PATIENT ASKED FOR THE TELEPHONE TO CALL HIS MOTHER TO COME TAKE HIM HOME. THIS NURSE EXPLAINED TO THE PATIENT THAT HIS OXYGEN REQUIREMENTS ARE SUBSTANTIAL TO LEAVE HOME AT THIS TIME. THE PATIENT AGREED AND LEFT THE SUBJECT ALONE.
--- NOTE | 2020-09-28 07:14 | PC.NURSE ---
notified Dr Osborn that pt choked on meals yesterday and still have regular diet. Requesting swallow eval and/or diet change.
--- NOTE | 2020-09-28 07:22 | PC.NURSE ---
Rcvd order for [place] soft diet.
[2020-09-28] MEDS: enoxaparin 40 mg/0.4 mL Syringe SUBCUT (08:59)
[2020-09-28] MEDS: amoxicillin-clav 875-125 mg Tablet 1 TAB PO ×2 (08:59→17:14)
[2020-09-28] MEDS: multivitamin therapeutic Tablet 1 TAB PO (08:59)
[2020-09-28] MEDS: thiamine 100 mg Tablet PO (08:59)
[2020-09-28] MEDS: folic acid 1 mg Tablet PO (08:59)
[2020-09-28] MEDS: MACITENTAN 10 MG 10 EACH PO (08:59)
[2020-09-28] MEDS: pantoprazole DR 40 mg Tablet PO (08:59)
[2020-09-28] MEDS: nystatin 100,000 unit/mL UDC 5 mL 500000 UNIT PO ×4 (09:00→21:31)
--- NOTE | 2020-09-28 09:58 | PC.NURSE ---
patient's mother called and requesting call from Dr. Dr Osborn notified.
--- NOTE | 2020-09-28 10:19 | P.PN_ITS ---
Subjective Subjective: Interval history: Interval history: Patient stating feeling better today he is on oxygen mask, CTA rule out PE, was evaluated by psychiatrist yesterday, patient is stating that he would avoid going to a halfway when I brought short-term rehab placement because of his post ICU myopathy and weakness. I updated manager social media and requested physical therapy along speech evaluation, Mr. Almanzar experienced aspiration twice yesterday. Vitals/I&O/Wt Last Vital Signs Temp 97.9 F 09/28/20 07:00 Pulse 84 09/28/20 08:10 Resp 18 09/28/20 08:00 BP 113/80 09/28/20 07:00 Pulse Ox 92 09/28/20 08:00 09/27/20 09/28/20 09/28/20 22:59 06:59 14:59 Intake Total 240 / 1010 240 / 240 Output Total 850 / 1300 650 / 1950 Balance -610 / -290 -650 / -940 240 / 240 Weight last 48 hrs Weight 69.536 kg Weight 69.4 kg Physical Exam Narrative: EXAM NARRATIVE: Mr. Almanzar was laying in left lateral position with oxygen mask He did not complain of any active issues He appears very subdued and quiet No active neurological deficit no strokelike symptoms EOMI, PERRLA Seems to have poor insight and judgment S1, S2 no active chest discomfort No conversational dyspnea or acute respiratory distress Not complaining of left abdominal pain, soft abdomen nontender Lower extremity no edema gangrene or ulcer No joint swelling or skin findings of gangrene/ ulcer Urinary Catheter Management^: Barba: Cath Placed During This Visit: yes, but has since been removed by the nurse Reason for Continuing Indwelling Catheter: Acute Urinary Retention or Obstruction Urinary Catheter Date of Insertion: 09/21/20 Urinary Catheter Time of Insertion: 13:14 Date Urinary Catheter Removed: 09/27/20 Time Urinary Catheter Discontinued: 10:00 Data : 09/28/20 05:33 09/28/20 05:33 Micro: Microbiology 09/21/20 11:39 Blood Culture - Final Blood Corynebacterium species 09/27/20 08:45 Occult Blood (FIT) - Final Stool Routine Collection A&P Additional A&P Information Patient required mechanical ventilation because of altered mental status and hypoxic hypercarbic respiratory failure with concern of polysubstance abuse at the time of ER evaluation, he has history of alcoholism, HIV, bipolar disorder,, there was some concern of taking unspecified amount of Viagra tablets as well. He does carry history of COPD, pulmonary hypertension, peptic ulcer disease Post ICU syndrome/myopathy Patient has not been able to get out of bed and ambulate on his own I am requesting physical therapy evaluation I do believe he will benefit from subacute rehab placement however patient does not want to go there, will touch base with his mother as well Acute on chronic hypoxic respiratory failure Extubated 09/26/2020: CT rule out PE currently on oxygen mask, wean off oxygen, home O2 evaluation Etiology of hypoxia is hypoventilation and aspiration pneumonia Aspiration pneumonia No fever or sepsis, patient aspirated twice yesterday, will follow up with speech evaluation, I will hold off on adding any antibiotics at this point other than Augmentin Encephalopathy Alcohol intoxication: Improved Patient does show signs of myalgias/myopathy Continue thiamine and folic acid along with HIV No active signs of stroke Patient does have signs of depression and has subdued/flat affect Appreciate psych evaluation recommendation Full code Swallow/speech evaluation DVT prophylaxis Lovenox Disposition dependent on physical therapy evaluation Attestations Medical Necessity Statement*: He will need speech evaluation and physical therapy recommendations today anticipating discharge in next 24 hours Time Spent in Patient Care: (>than 50% of time spent in counselling and/or direct pt care on unit) . 30mins Coding Level of Care Code Acute Manager Floral for Osmin Ordonez
[2020-09-28] MEDS: lidocaine 1% 5 ML in potassium chloride premix 100 ML 25 ML IV ×2 (11:20→14:44)
--- NOTE | 2020-09-28 16:01 | P.PN_ITS ---
Subjective NPU Subjective: Interval history: Flakito presents today essentially the same as he normally presents days after a intoxication event or suicide attempt. Reporting that he has a solution and often involves his mother. This time the plan is that he is going go stay with his mother even though he still has car keys, the ability to drive and other than her being able to find an earlier definitely change the dynamics of his life. He talked about being able to go home tomorrow. He has evaluated him to prevent that from happening and I advised him that I was not sure that we are looking at different options. What is clear is that his current drinking pattern continues to put him in grave danger. Mental Status Exam MSE Comments: This is a slender white male in hospital gown with limited grooming and eye contact. No abnormal movement except for psychomotor retardation. Semicooperative with exam in mild distress. Speech was limited and decreased rate and volume. Mood described as better, affect somber. Thought process organized. Thought content: Patient denied suicidal or ho micidal ideation, there were no delusions reported or noted, he denies any auditory visual hallucinations. Attention and concentration were limited and memory was unreliable but none were formally tested. He is alert and oriented x3. Insight and judgment are impaired and impulse control is impaired. Vitals/I&O/Wt Last Vital Signs Temp 98.2 F 09/28/20 19:00 Pulse 100 09/28/20 19:00 Resp 20 H 09/28/20 19:00 BP 111/80 09/28/20 19:00 Pulse Ox 92 09/28/20 19:00 09/28/20 14:59 Intake Total 565 / 565 Output Total Balance 565 / 565 Weight last 48 hrs Weight 69.536 kg Physical Exam Urinary Catheter Management^: Barba: Cath Placed During This Visit: yes, but has since been removed by the nurse Reason for Continuing Indwelling Catheter: Acute Urinary Retention or Obstruction Urinary Catheter Date of Insertion: 09/21/20 Urinary Catheter Time of Insertion: 13:14 Date Urinary Catheter Removed: 09/27/20 Time Urinary Catheter Discontinued: 10:00 Data NPU : 09/28/20 05:33 09/28/20 05:33 Micro: Microbiology 09/28/20 18:45 Occult Blood (FIT) - Final Stool Microbiology 09/28/20 18:45 Stool Occult Blood (FIT) - Final A&P Additional A&P Information (1) Serum lipase elevation: (2) Troponin level elevated: (3) Hematochezia: (4) Hemoptysis: (5) Suicide attempt: (6) Deliberate medication overdose: (7) Depression: (8) Lactic acidosis: (9) COPD exacerbation: (10) Community acquired pneumonia: (11) Acute on chronic respiratory failure with hypoxia and hypercapnia: (12) Alcohol intoxication: (13) Acute encephalopathy: (14) Posttraumatic stress disorder: (15) Alcohol use disorder: (16) Major depressive disorder: (17) HIV (human immunodeficiency virus infection): Additional A&P Information This is a 60-year-old white male with a long history of alcohol addiction, HIV, major depression with frequent hospitalizations with ICU stays and inpatient p sychiatric treatment who presents after a questionable intentional overdose who presents not interested in any changes in his treatment to address his apx-nt-rtgzupo alcohol use. 1. Continue current medication. 2. Continue every 15 minute checks for safety. 3. Encourage individual, group and milieu therapies. 4. Encourage sober living treatment after discharge in the inpatient program. He continues to be resistant to this and we will explore the obstacles to getting a court ordered inpatient rehab of an extended variety 90 days to 1 year. Involuntary Hold Information 96 Hour Hold: 96 Hour Involuntary Admission: Yes 96 Hour Hold Ending Date: 07/16/20 96 Hour Hold Ending Time: 21:31 Attestations NPU Medical Necessity Statement*: N/A. Please see primary team note for medical necessity. However do recommend long-term inpatient rehab to address the heavy alcohol addiction. Coding Level of Care Code Acute Public Relations Associate for Osmin Ordonez
--- NOTE | 2020-09-28 16:06 | PC.SOCIAL ---
IMM update Pg 2 of IMM update given to patient. Patient verbalized an understanding. Copy provided, initialed, dated, timed in the chart.
[2020-09-29] VITALS (8 sets, daily range): BP systolic 128–138; BP diastolic 72–85; PULSE 85–94; RESP 17–18; TEMP 36.7–37.1; O2SAT 91–93
[2020-09-29] MEDS: ipratropium-albuterol 3 mL Neb INHALATION ×2 (03:50→07:46)
--- NOTE | 2020-09-29 07:34 | PM.DCS ---
Discharge Providers Date of Admission: 09/21/20 14:49 Date of Discharge: September 29, 2020 Attending Provider at Admission: Carlos Richards Attending Provider at Discharge: Kenny Osborn MD Primary Care Provider: Rasheed Spivey MD Diagnoses at Discharge Discharge Diagnosis (1) Serum lipase elevation: Status: Acute (2) Troponin level elevated: Status: Acute (3) Hematochezia: Status: Acute (4) Hemoptysis: Status: Acute (5) Suicide attempt: Status: Acute (6) Deliberate medication overdose: Status: Acute (7) Depression: Status: Acute (8) Lactic acidosis: Status: Acute (9) COPD exacerbation: Status: Acute (10) Community acquired pneumonia: Status: Acute (11) Acute on chronic respiratory failure with hypoxia and hypercapnia: Status: Acute (12) Alcohol intoxication: Status: Acute (13) Acute encephalopathy: Status: Acute (14) Posttraumatic stress disorder: Status: Chronic (15) Alcohol use disorder: Status: Chronic (16) Major depressive disorder: Status: Chronic (17) HIV (human immunodeficiency virus infection): Status: Chronic Reason for Visit Reason for Visit: ETOH, AMS Hospital Course Hospital Course 60-year-old gentleman with depression alcoholism HIV readmitted to the hospital multiple times brought in this time after he was found confused on the floor of his home by his family. Reportedly independent living accounting manager assistant controller had seen him however they were both intoxicated when family tried to reach him. There was also some report about usage of unspecified amount of Viagra tablets(takes for pulmonary hypertension) and some other unspecified medications while intoxicated. Patient was very agitated during his transportation to the hospital and received multiple chemical sedatives. In the ER he was diagnosed with COPD exacerbation, worsening acute on chronic hypoxic respiratory failure, he has underlying COPD pulmonary hypertension and uses 4 L of oxygen at baseline. He was intubated for airway protection. He was extubated on 09/26/[address] to nasal cannula 5l. CT head was unremarkable, therapeutic dose of Lovenox was discontinued which was initiated at the time of admission for concern of PE however CTA ruled out pulmonary embolism. He was treated for aspiration pneumonia with IV antibiotics, however never became septic, was transitioned to Augmentin at the time of discharge. Speech evaluation was requested because of his dysphagia, patient did well with mechanical soft diet as per the patient he always do well with mechanical soft diet however denied odynophagia or dysphagia. For oral thrush nystatin was initiated in the hospital. He is HIV positive, his HIV medications were continued during hospitalizations. Patient suffered from post ICU syndrome with myopathy and mild encephalopathy which improved, physical therapy recommended usE OF a walker at home. He will be discharged home on folded nasal cannula, nystatin, Augmentin, he will stay with his mother. He has decided to quit alcohol intake. Physical Exam Narrative: EXAM NARRATIVE: S1, S2 sinus rhythm no signs of heart failure No acute respiratory distress saturating well on 4 L nasal cannula Abdomen soft No acute neurological changes Awake alert oriented x3 GCS 15 No joint swelling No lower extremity edema or cellulitis Urinary Catheter Management^: Barba: Cath Placed During This Visit: yes, but has since been removed by the nurse Reason for Continuing Indwelling Catheter: Acute Urinary Retention or Obstruction Urinary Catheter Date of Insertion: 09/21/20 Urinary Catheter Time of Insertion: 13:14 Date Urinary Catheter Removed: 09/27/20 Time Urinary Catheter Discontinued: 10:00 Discharge Data Data Completed and Pending: Completed Studies During Hospitalization Category Date Time Status CT angio chest PE protcl 67712 Stat Cat Scan 09/27/20 07:[address] head wo con* 7 0450 Routine Cat Scan 09/26/20 10:[address] head wo con* 7 0450 Stat Cat Scan 09/21/20 11:13 Completed XR chest 1V zane ble [id number] Routine Exams 09/21/20 17:31 Completed XR chest 1V zane ble [id number] Routine Exams 09/22/20 06:00 Completed XR chest 1V zane ble [id number] Routine Exams 09/23/20 17:17 Completed XR chest 1V zane ble [id number] Stat Exams 09/21/20 11:13 Completed XR chest 1V zane ble [id number] Stat Exams 09/21/20 14:27 Completed Labs from last 24 hours 09/21/20 21:45 Sample Site [employer] Cashier ID [email or web address] Vitals: Last Vital Signs Temp 98.8 F 09/29/20 07:00 Pulse 85 09/29/20 07:00 Resp 17 09/29/20 07:00 BP 138/85 09/29/20 07:00 Pulse Ox 93 09/29/20 07:00 Discharge Plan Discharge Patient Disposition: Home Condition: Stable Prescriptions: New nystatin 100,000 unit/mL Suspension 500,000 unit PO QID 14 Days Qty: 280 RF: 0 folic acid 1 mg Tablet 1 mg PO DAILY 30 Days Qty: 30 RF: 0 thiamine mononitrate (vit B1) [Vitamin B-1 (mononitrate)] 100 mg Tablet 100 mg PO DAILY 30 Days Qty: 30 RF: 0 amoxicillin-pot clavulanate 875-125 mg Tablet 1 tab PO BID 5 Days Qty: 10 RF: 0 Continued multivitamin Tablet 1 tab PO DAILY RF: 0 Opsumit 10 mg tablet 10 mg PO DAILY@07 RF: 0 fluconazole 100 mg tablet 100 mg PO DAILY@19 RF: 0 diltiazem HCl 240 mg capsule,extended release 24 hr 240 mg PO DAILY@07 RF: 0 pantoprazole 40 mg tablet,delayed release (DR/EC) 40 mg PO DAILY@07 RF: 0 Eliquis 5 mg tablet 5 mg PO BID@ RF: 0 albuterol sulfate 90 mcg/actuation HFA aerosol inhaler 2 inh INHALATION Q4H PRN (Reason: shortness of breath or wheezing) Qty: 18 RF: 0 Tylenol Extra Strength 500 mg Tablet 500 - 1,000 mg PO PRN RF: 0 folic acid 1 mg Tablet 1 mg PO DAILY RF: 0 Symbicort 80-4.5 mcg/actuation HFA aerosol inhaler 2 puff INHALATION BID RF: 0 alprazolam 0.25 mg tablet 0.25 mg PO TID PRN (Reason: Anxiety) RF: 0 sildenafil (pulm.hypertension) 20 mg tablet 20 mg PO TID RF: 0 Dovato 50-300 mg tablet 1 tab PO DAILY@07 RF: 0 Discontinued potassium chloride [Klor-Con M20] 20 mEq tablet,ER particles/crystals 20 meq PO BID@ RF: 0 sulfamethoxazole-trimethoprim 800-160 mg tablet 1 tab PO MOWEFR@07 RF: 0 trazodone 150 mg tablet 300 mg PO DAILY@20 RF: 0 mirtazapine 15 mg Tablet 15 mg PO BEDTIME Qty: 30 RF: 2 hydroxyzine HCl 10 mg tablet 10 mg PO BID RF: 0 testosterone 20.25 mg/1.25 gram (1.62 %) gel in metered-dose pump See Rx Instructions .ROUTE .COMPLEX RF: 0 Discharge Orders: Discharge Order (Routine); Ordered 09/29/20 Ordered By: Kenny Osborn Discharge Diet: Soft Mechanical Discharge Activity: Increase activity as tolerated Activity Restrictions/Additional Instructions: Please finish antibiotic Augmentin in next 5 days Keep taking a statin for next 2 weeks for oral thrush He can continue HIV medications Please be aware that I have discontinued your mirtazapine and trazodone which can cause sedation You can take sildenafil for pulmonary hypertension but do not drink alcohol which can cause serious side effects with your other medications as well Can resume your mechanical soft diet Discharge Attestations Time Spent in Discharge Care*: less than 30 min Quality Metrics Clinical Quality Measures During this hospital stay, did patient experience: None Coding Level of Care Code Acute Safety Investigator/Cause Analyst for Sueg Fwd Diagnoses Serum lipase elevation R74.8 Troponin level elevated R77.8 Hematochezia K92.1 Hemoptysis R04.2 Suicide attempt T14.91XA Deliberate medication overdose T50.902A Depression F32.9 Lactic acidosis E87.2 COPD exacerbation J44.1 Community acquired pneumonia J18.9 Acute on chronic respiratory failure with hypoxia and hypercapnia J96.21; J96.22 Alcohol intoxication F10.929 Acute encephalopathy G93.40 Posttraumatic stress disorder F43.10 Alcohol use disorder Major depressive disorder F32.9 HIV (human immunodeficiency virus infection) B20
--- NOTE | 2020-09-29 07:53 | PC.NURSE ---
Patient refused to get up to a chair for breakfast
[2020-09-29] MEDS: enoxaparin 40 mg/0.4 mL Syringe SUBCUT (08:04)
[2020-09-29] MEDS: multivitamin therapeutic Tablet 1 TAB PO (08:04)
[2020-09-29] MEDS: nystatin 100,000 unit/mL UDC 5 mL 500000 UNIT PO (08:04)
[2020-09-29] MEDS: amoxicillin-clav 875-125 mg Tablet 1 TAB PO (08:04)
[2020-09-29] MEDS: thiamine 100 mg Tablet PO (08:04)
[2020-09-29] MEDS: folic acid 1 mg Tablet PO (08:04)
[2020-09-29] MEDS: pantoprazole DR 40 mg Tablet PO (08:04)
--- NOTE | 2020-09-29 11:18 | PC.NURSE ---
pt ivs taken out and intact. discharge instructions explained and all questions answered. pt taken to exit via wheelchair.
== END 2020-09-29 11:19 | disposition home or self-care (01) | DRG 917 ==
LOC: ER 12:39 → ICU 17:25 → MEDSURG 09-27 10:22
PROVIDERS: Internal Medicine; Admitting Provider Internal Medicine; Emergency Provider Family Medicine; PCP Family Medicine; Visit Provider Internal Medicine
DX: T50.902A Poisoning by unspecified drugs, medicaments and biological substances, intentional self-harm, initial encounter (principal); J96.22 Acute and chronic respiratory failure with hypercapnia; J96.21 Acute and chronic respiratory failure with hypoxia; J69.0 Pneumonitis due to inhalation of food and vomit; G92 Toxic encephalopathy; F10.239 Alcohol dependence with withdrawal, unspecified; B20 Human immunodeficiency virus [HIV] disease; J44.1 Chronic obstructive pulmonary disease with (acute) exacerbation; J44.0 Chronic obstructive pulmonary disease with (acute) lower respiratory infection; E87.2 Acidosis; R04.2 Hemoptysis; K92.1 Melena; B37.0 Candidal stomatitis; F10.229 Alcohol dependence with intoxication, unspecified; Y90.8 Blood alcohol level of 240 mg/100 ml or more; Z99.81 Dependence on supplemental oxygen; I27.20 Pulmonary hypertension, unspecified; I48.91 Unspecified atrial fibrillation; F32.9 Major depressive disorder, single episode, unspecified; K57.90 Diverticulosis of intestine, part unspecified, without perforation or abscess without bleeding; Z87.11 Personal history of peptic ulcer disease; E29.1 Testicular hypofunction; Z85.72 Personal history of non-Hodgkin lymphomas; Z92.3 Personal history of irradiation; Z86.711 Personal history of pulmonary embolism; Z86.718 Personal history of other venous thrombosis and embolism; Z90.79 Acquired absence of other genital organ(s); F17.210 Nicotine dependence, cigarettes, uncomplicated; R74.8 Abnormal levels of other serum enzymes; F43.10 Post-traumatic stress disorder, unspecified; Z79.01 Long term (current) use of anticoagulants; Z79.51 Long term (current) use of inhaled steroids; G72.9 Myopathy, unspecified; R13.10 Dysphagia, unspecified
CPT/HCPCS: 31500; 36415; 36600; 51702; 70450; 71045; 71275; 80051; 80053; 80306; 80307; 81003; 82009; 82140; 82274; 82330; 82550; 82803; 82805; 83605; 83690; 83735; 83880; 84484; 85018; 85025; 85378; 85730; 87040; 87070; 87205; 87426; 87635; 87804; 92610; 93005; 94002; 94003; 94640; 94664; 94799; 96365; 96366; 96367; 96368; 96372; 96375; 96376; 97161; 97530; 99291; 99292; C9113; J0330; J1644; J1650; J1940; J1956; J2060; J2250; J2405; J2543; J2704; J2920; J2930; J3010; J3411; J3480; J3490; J7030; Q9967

== ENCOUNTER 2020-10-20 16:59 | Emergency (ER) | payer MEDICARE, MEDICAID, SELFPAY ==
[2020-10-20 17:47] VITALS: BP 103/71; PULSE 112; RESP 18; O2SAT 95; BMI 21.5
--- NOTE | 2020-10-20 18:56 | W.ED.GENADLT ---
HPI - General Adult General: Chief complaint: General Medical Stated complaint: DETOX Time Seen by Provider: 10/20/20 18:44 History of Present Illness: HPI narrative: Patient chronic alcoholic inquiring about get into detox program. Drinks about a pint a day. Did drink today. Is requesting a shot of Ativan. complaint: Alcoholism Onset (ago): year(s) Associated symptoms: Deny chest pain, dyspnea, headache(s), nausea, rash or vomiting Review of Systems Const: Denies: fever(s), chills or body aches Eyes: Denies: change in vision or blurry vision ENMT: Denies: throat pain or nasal congestion Card: Denies: chest pain or dyspnea on exertion Resp: Denies: dyspnea, productive cough or non-productive cough GI: Denies: abdominal pain, nausea or vomiting : Denies: difficulty urinating Musc: Denies: extremity pain Skin/Breast: Denies: rash Neuro: Denies: headache(s) Psych: Reports: other (Would like information on detox program want to quit drinking); Denies: anxiety or depression Obey/Lymph: Denies: easy bruising PFSH ED PFSH: Medical History Anorexia Atrial fibrillation Colon polyps COPD (chronic obstructive pulmonary disease) Severe COPD Depressive disorder Diverticulitis / Diverticulosis GI bleed Was taken off Coumadin for a month in 2015 after a bleeding gastric ulcer, currently on Eliquis History of peptic ulcer disease HIV (human immunodeficiency virus infection) Hypogonadism Liver tumor Lymphoma 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 No evidence of recurrence, currently getting CROWN IRONER prophylaxis with intrathecal methotrexate with prophylactic radiation to right testicle, CHOP treatment Meningitis Orchialgia Pulmonary embolism DVT of right leg, 2009 Pulmonary hypertension After PE Surgical History H/O colonoscopy 2001 -diverticulosis, colon polyps / 2005 -diverticulosis, small telangiectasia / 01/2016 -diverticulosis with intrinsic stenosis and sigmoid H/O esophagogastroduodenoscopy 2005 -reflux esophagitis, superficial gastric erosions with hemorrhagic gastritis, duodenitis /2008 -reflux esophagitis, gastritis, small chronic gastric ulcer H/O hemorrhoidectomy History of orchiectomy, unilateral L -- diffuse large B-cell lymphoma Family History Other No pertinent family history Social History Smoking and tobacco status: current every day smoker cigarettes Packs smoked per day: 2 Alcohol intake: current Household members: family Housing: House Physical Exam Const: COMMON NORMALS: no acute distress Resp: COMMON NORMALS: normal respiratory effort Cardio: RATE: tachycardic Psych: COMMON NORMALS: mental status grossly normal, Normal thought process present, cooperative, normal affect, speech normal, denies homicidal ideation and denies suicidal ideation APPEARANCE: Yes grossly normal ATTITUDE: Yes calm ACTIVITY/MOTOR BEHAVIOR: Yes appropriate eye contact SPEECH: Yes normal speech THOUGHT PROCESS: Normal thought process present THOUGHT CONTENT: Yes Normal thought content present Course Vital Signs: Vital signs: Vital Signs Pulse Rate 112 H 10/20/20 17:47 Respiratory Rate 18 10/20/20 17:47 Blood Pressure 103/71 10/20/20 17:47 Pulse Oximetry 95 10/20/20 17:47 MDM - General Adult MDM Narrative: Medical decision making narrative: Patient desiring detox. He has been drinking for years. [facility] numbers for [facility] [place] were given to patient patient is contacted morning see for admission. Discharge Plan Discharge Patient Disposition: Home Clinical Impression: Alcohol abuse Condition: Stable Prescriptions: No Action multivitamin Tablet 1 tab PO DAILY RF: 0 Opsumit 10 mg tablet 10 mg PO DAILY@07 RF: 0 fluconazole 100 mg tablet 100 mg PO DAILY@19 RF: 0 diltiazem HCl 240 mg capsule,extended release 24 hr 240 mg PO DAILY@07 RF: 0 pantoprazole 40 mg tablet,delayed release (DR/EC) 40 mg PO DAILY@07 RF: 0 Eliquis 5 mg tablet 5 mg PO BID@,19 RF: 0 albuterol sulfate 90 mcg/actuation HFA aerosol inhaler 2 inh INHALATION Q4H PRN (Reason: shortness of breath or wheezing) Qty: 18 RF: 0 Tylenol Extra Strength 500 mg Tablet 500 - 1,000 mg PO PRN RF: 0 folic acid 1 mg Tablet 1 mg PO DAILY RF: 0 Symbicort 80-4.5 mcg/actuation HFA aerosol inhaler 2 puff INHALATION BID RF: 0 folic acid 1 mg Tablet 1 mg PO DAILY 30 Days Qty: 30 RF: 0 Vitamin B-1 (mononitrate) 100 mg Tablet 100 mg PO DAILY 30 Days Qty: 30 RF: 0 alprazolam 0.25 mg tablet 0.25 mg PO TID PRN (Reason: Anxiety) RF: 0 sildenafil (pulm.hypertension) 20 mg tablet 20 mg PO TID RF: 0 Dovato 50-300 mg tablet 1 tab PO DAILY@07 RF: 0 Discharge Orders: Discharge ED (Routine); Ordered 10/20/20 Ordered By: Matt Higgins Referrals: Rasheed Spivey MD [Primary Care Provider] - Discharge Diet: Usual diet Discharge Activity: Resume usual activity Patient Instructions: Abuse of Alcohol (ED) Activity Restrictions/Additional Instructions: [facility] [phone] or [facility] at [phone]. Decrease alcohol intake and follow-up with 1 of these programs Coding Level of Care Code ED [employer] Officer for Chg Fwd Exam Expanded Problem Focused
--- NOTE | 2020-10-20 19:15 | PC.NURSE ---
Pt noted to not be in room at this time and discharge papers are still at nurses station. Lorazepam was not given per SEP.
== END 2020-10-20 19:15 | disposition home or self-care (01) ==
PROVIDERS: Emergency Provider Nurse Practitioner Family; PCP Family Medicine
DX: F10.10 Alcohol abuse, uncomplicated (principal); Z79.01 Long term (current) use of anticoagulants; I48.91 Unspecified atrial fibrillation; J44.9 Chronic obstructive pulmonary disease, unspecified; B20 Human immunodeficiency virus [HIV] disease; F17.210 Nicotine dependence, cigarettes, uncomplicated
CPT/HCPCS: 99281

== ENCOUNTER → 2020-11-22 08:54 | Outpatient (BNVA) | payer MEDICARE, MEDICAID, SELFPAY | PROVIDERS: PCP Family Medicine; Visit Provider Internal Medicine | DX: Z20.822 Contact with and (suspected) exposure to COVID-19 (principal); Z12.11 Encounter for screening for malignant neoplasm of colon | CPT/HCPCS: 87635 ==

== ENCOUNTER 2020-11-26 10:18 | Day surgery (SDC) | payer MEDICARE, MEDICAID, SELFPAY ==
--- NOTE | 2020-11-26 09:13 | ANES.PREANE2 ---
Pre-Anesthetic Assessment Pre-Anesthetic Assessment: Height/Weight: Height 1.83 m Proposed Procedure: Operation Date: 11/26/20 10:30 Proposed Procedures p Colonoscopy 05205 Z12.11(Not Applicable) - Delfino Tomas MD Was Beta Daniela taken within 24 hours: N/A Was Clonidine taken within 24 hours: N/A Social: Social History: Alcohol and Tobacco Exam: Pre-Anes Outpt Exam: alert and oriented x 3 Airway: Submandibular: WNL Cervical ROM: WNL MP: 2 Dentition: Chipped Pulmonary: Pulmonary: COPD CV/HEM: CV/HEM: Afib and HTN Comments: Mild PHTN, Normal EF Hepatic: Hepatic: Cirrohsis GI: GI: GERD Anesthetic Plan: ASA status: 3 Anesthesia: MAC Other: HI V+ Risk of > 500 ml blood loss (7ml/kg in children): No PFSH Anesthesia PFSH: Medical History Anorexia Atrial fibrillation Colon polyps COPD (chronic obstructive pulmonary disease) Severe COPD Depressive disorder Diverticulitis / Diverticulosis GI bleed Was taken off Coumadin for a month in 2015 after a bleeding gastric ulcer, currently on Eliquis History of peptic ulcer disease HIV (human immunodeficiency virus infection) Hypogonadism Liver tumor Lymphoma 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 No evidence of recurrence, currently getting EXHIBITION DESIGNER prophylaxis with intrathecal methotrexate with prophylactic radiation to right testicle, CHOP treatment Meningitis Orchialgia Pulmonary embolism DVT of right leg, 2009 Pulmonary hypertension After PE Surgical History H/O colonoscopy 2001 -diverticulosis, colon polyps / 2005 -diverticulosis, small telangiectasia / 01/2016 -diverticulosis with intrinsic stenosis and sigmoid H/O esophagogastroduodenoscopy 2005 -reflux esophagitis, superficial gastric erosions with hemorrhagic gastritis, duodenitis /2008 -reflux esophagitis, gastritis, small chronic gastric ulcer H/O hemorrhoidectomy History of orchiectomy, unilateral L -- diffuse large B-cell lymphoma Family History Other No pertinent family history Social History Smoking and tobacco status: current every day smoker cigarettes Packs smoked per day: 2 Alcohol intake: current Household members: family Housing: House Data Anesthesia Cardiac Studies: No Data to Display
--- NOTE | 2020-11-26 09:16 | W.PM.OPSFHP ---
Same Day Surgery H&P Indication for Procedure/HPI DATE OF PROCEDURE: November 26, 2020 CHIEF COMPLAINT/INDICATIONFOR SURGICAL PROCEDURE: Hematochezia PREOP DIAGNOSIS: Hematochezia PLANNED PROCEDRUE: Operation Date: 11/26/20 10:30 Proposed Procedures p Colonoscopy 46819 Z12.11(Not Applicable) - Delfino Tomas MD Medications/Allergies* Home Medications Medication Instructions Recorded Confirmed Type Dovato 1 tab PO DAILY@04/11/20 09/21/20 History alprazolam 0.25 mg PO TID PRN 04/11/20 09/21/20 History sildenafil (pulm.hypertension) 20 mg PO TID 04/11/20 09/21/20 History Eliquis 5 mg PO BID@06/29/20 09/21/20 History Opsumit 10 mg PO DAILY@06/29/20 09/21/20 History diltiazem HCl 240 mg PO DAILY@06/29/20 09/21/20 History fluconazole 100 mg PO DAILY@06/29/20 09/21/20 History multivitamin 1 tab PO DAILY 06/29/20 09/21/20 History pantoprazole 40 mg PO DAILY@06/29/20 09/21/20 History Symbicort 2 puff INHALATION BID 09/21/20 09/21/20 History Tylenol Extra Strength 500 - 1,000 mg PO PRN 09/21/20 09/21/20 History folic acid 1 mg PO DAILY 09/21/20 09/21/20 History Allergies/Adverse Reactions Allergy/AdvReac Type Severity Reaction Status Date / Time No Known Allergies Allergy Verified 06/29/20 09:44 Pertinent History/Comorbid Conditions* Medical History (Updated 09/30/20 @ 00:00 by ) Alcohol use disorder Anorexia Atrial fibrillation Colon polyps COPD (chronic obstructive pulmonary disease) Severe COPD Deliberate medication overdose Depression Depressive disorder Diverticulitis / Diverticulosis GI bleed Was taken off Coumadin for a month in 2015 after a bleeding gastric ulcer, currently on Eliquis History of peptic ulcer disease HIV (human immunodeficiency virus infection) Hypogonadism Liver tumor Lymphoma 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 No evidence of recurrence, currently getting BUSHING AND BROACH OPERATOR prophylaxis with intrathecal methotrexate with prophylactic radiation to right testicle, CHOP treatment Major depressive disorder Meningitis Orchialgia Posttraumatic stress disorder Pulmonary embolism DVT of right leg, 2009 Pulmonary hypertension After PE Suicide attempt Surgical History (Updated 04/12/20 @ 13:13 by Kilo Pollard MD) H/O colonoscopy 2001 -diverticulosis, colon polyps / 2005 -diverticulosis, small telangiectasia / 01/2016 -diverticulosis with intrinsic stenosis and sigmoid H/O esophagogastroduodenoscopy 2005 -reflux esophagitis, superficial gastric erosions with hemorrhagic gastritis, duodenitis /2008 -reflux esophagitis, gastritis, small chronic gastric ulcer H/O hemorrhoidectomy History of orchiectomy, unilateral L -- diffuse large B-cell lymphoma Family History (Updated 07/21/19 @ 12:41 by Steph Dia RN) No pertinent family history Social History Smoking and tobacco status: current every day smoker cigarettes Packs smoked per day: 2 Alcohol intake: current Household members: family Housing: House Pertinent Exam Findings alert, oriented x 3, clear to auscultation bilaterally, regular rate & rhythm, operative site marked and procedure specific exam findings Recommendations Surgery/Procedure today Coding Level of Care Code Acute Newspaper Photographer for Osmin Ordonez
[2020-11-26 09:49] VITALS: BP 118/77; PULSE 110; RESP 20; TEMP 37.4; O2SAT 87; BMI 16.9
[2020-11-26] MEDS: sodium chloride 0.9% 1,000 ML 30 ML IV (10:06)
--- NOTE | 2020-11-26 11:46 | ANE.PACU2 ---
Inpatient post-anesthesia follow up: Airway intact: Yes Vital signs: Temperature 99.3 F Pulse Rate 110 Respiratory Rate 20 Blood Pressure 118/77 Pulse Oximetry 87 Oxygen Delivery Me thod Nasal Cannula Oxygen Flow Rate 5 Fraction of Inspir ed Oxygen Hydration adequate: Yes Nausea and vomiting: No Pain level: 1 Mental status: Baseline
[2020-11-26 11:47] VITALS: BP 99/63; PULSE 90; RESP 16; TEMP 36.1; O2SAT 93
[2020-11-26 11:55] VITALS: BP 104/68; PULSE 91; RESP 18; O2SAT 90
== END 2020-11-26 12:12 | disposition home or self-care (01) ==
PROVIDERS: PCP Family Medicine; Visit Provider Internal Medicine
PROC: 0DJD8ZZ Inspection of Lower Intestinal Tract, Via Natural or Artificial Opening Endoscopic (ICD-10-PCS; CPT 45378; principal; 2020-11-26 10:30)
DX: K92.1 Melena (principal); I48.91 Unspecified atrial fibrillation; J44.9 Chronic obstructive pulmonary disease, unspecified; J32.9 Chronic sinusitis, unspecified; B20 Human immunodeficiency virus [HIV] disease; F32.9 Major depressive disorder, single episode, unspecified; F17.210 Nicotine dependence, cigarettes, uncomplicated; K21.9 Gastro-esophageal reflux disease without esophagitis; I10 Essential (primary) hypertension
CPT/HCPCS: 45380; 45385; 88305; 96360; 96361; J2704; J7030

== ENCOUNTER 2021-02-10 14:57 | Inpatient (IN) | payer MEDICARE, MEDICAID, SELFPAY ==
[2021-02-10] VITALS (12 sets, daily range): BP systolic 83–118; BP diastolic 57–79; PULSE 101–109; RESP 10–22; TEMP 36.8–37.1; O2SAT 83–94; BMI 23.0
--- NOTE | 2021-02-10 15:21 | XR_ITS ---
WS: [id number] Right leg including the tibia and fibula, AP and lateral views, 02/10/2021 Clinical Data: alcohol intoxication, fall Comparison: None. Findings: There is an oblique slightly displaced fracture of the distal right tibia. There is an oblique displa see fracture of the proximal left fibula. XR/XR tibia fibula RT 2V [id number] Impression: Fractures of the proximal right fibula and distal right tibia.
--- NOTE | 2021-02-10 15:21 | CT_ITS ---
WS: [id number] CT HEAD TECHNIQUE: Noncontrast CT of the head obtained from the skullbase to the vertex. CLINICAL INFORMATION: alcohol intoxication, fall, abrasion on forehead COMPARISON: None. DLP: 698.[address] scans at [facility] use at least one of these dose optimization techniques: automat ed exposure control; mA and/or kV adjustment per patient size (includes targeted exams where dose is matched to clinical indication); or iterative reconstruction. FINDINGS: No evidence of intracranial hemorrhage or mass effect. Ventricular system and basal cisterns are dominguez nt. Mild small vessel changes with mild parenchymal volume loss. No extra-axial fluid collections. No evidence of mass or mass effect. Normal solomon-white differentiation. Paranasal sinuses and mastoid air cells are well aerated. .Normal visualized soft tissues. CT/CT head wo con* [id number] IMPRESSION: 1. No evidence of intracranial hemorrhage or mass effect. 2. Mild small vessel changes. Mild parenchymal volume loss. 3. No acute intracranial findings.
--- NOTE | 2021-02-10 15:21 | CT_ITS ---
WS: [id number] CT CHEST, ABDOMEN, AND PELVIS TECHNIQUE: Contrast-enhanced CT of the chest, abdomen, and pelvis with coronal and sagittal reformatt ed images. CLINICAL INFORMATION: alcohol intoxication, fall COMPARISON: None. DLP: 1974.[address] scans at [facility] use at least one of these dose optimization techniques: automat ed exposure control; mA and/or kV adjustment per patient size (includes targeted exams where dose is matched to clinical indication); or iterative reconstruction. CT CHEST: Moderate chronic emphysematous changes. Slight hazy infiltrates and dependent atelectasis in the lung bases. Subsegmental atelectasis in the right middle lobe and lingula. No focal consolidation. No sig nificant pleural fluid. Recommend correlation for pneumonia. Normal caliber thoracic aorta. Enlarged central pulmonary arteries can be seen with pulmonary arteria l hypertension. No mediastinal or hilar lymphadenopathy. CT ABDOMEN AND PELVIS: Mild diffuse fatty infiltration of the liver. Normal GE junction. Normal spleen. Adrenal glands are n ormal. Normal renal parenchymal enhancement. No hydronephrosis. Pancreas appears normal. Normal calib er abdominal aorta. Urine distended bladder. Colonic diverticulosis. Mild thickening of the sigmoid colon with mucosal e nhancement can be seen with mild or early diverticulitis.Colon is otherwise normal in appearance. No evidence of high-grade small or large bowel obstruction. Chronic left rib fractures with callus forma tion. CT/CT chest abd pel w con* IMPRESSION: 1. No evidence of acute aortic injury. No pneumothorax. 2. Slight patchy infiltrates and dependent atelectasis in the lung bases. Philipp mmend correlation for pneumonia. 3. Mild diffuse fatty infiltration the liver. 4. No free fluid in the abdomen and pelvis. 5. Urine distended bladder. 6. Mild diffuse thickening of the sigmoid colon with extensive diverticulosis. Mild mucosal enhancement with a trace amount of induration. Recommend correlat ion for early or mild diverticulitis. Colon is otherwise normal. 7. No other significant findings.
[2021-02-10 15:37] LABS: Basophils # 0.1 10^3/uL (0.0-0.1); Basophils % 1.1 %; Eosinophils # 0.2 10^3/uL (0.0-0.8); Eosinophils % 3.2 %; Hematocrit 39.4 % (42.0-52.0); Hemoglobin 13.2 g/dL (11.7-16.6); Lymphocytes # 2.2 10^3/uL (0.8-4.8); Lymphocytes % 46.4 %; Mean Corpuscular HGB Conc 33.5 g/dL (30.0-36.0); Mean Corpuscular Hemoglobin 31.6 pg (28.0-34.0); Mean Corpuscular Volume 94.3 fL (80-94); Mean Platelet Volume 8.7 fL (7.4-10.4); Monocytes # 0.4 10^3/uL (0.2-0.9); Monocytes % 7.5 %; Neutrophils # 1.96 10^3/uL (1.8-7.7); Neutrophils % 41.8 %; Nucleated Red Blood Cells % 0 %; Platelet Count 157 10^3/cmm (130-400); Red Blood Count 4.18 10^6/uL (4.1-5.3); Red Cell Distribution Width 13.2 % (12.1-15.1); White Blood Count 4.7 10^3/uL (4.0-10.0)
[2021-02-10 15:54] LABS: Alanine Aminotransferase 13 U/L (0-41); Albumin Level 3.9 g/dL (3.5-5.2); Alcohol Level 294 mg/dL (0-10); Alkaline Phosphatase 103 IU/L (40-130); Aspartate Amino Transferase 21 U/L (0-40); Blood Urea Nitrogen 6 mg/dL (6-20); Calcium 8.1 mg/dL (8.5-10.5); Carbon Dioxide 20 mmol/L (22-29); Chloride 100 mmol/L (98-107); Globulin 2.7 g/dL (1.3-4.6); Glomerular Filtration Rate 115.4 mL/min (90-130); Glucose 95 mg/dL (65-115); Osmolality Calculated 275 mOsm/kg (285-295); Sodium 134 mmol/L (136-145); Total Bilirubin 0.3 mg/dL (0.15-1.2); Total Protein 6.6 g/dL (6.6-8.7)
[2021-02-10] MEDS: morphine 4 mg/mL SDV 1 mL IVP ×3 (15:59→22:52)
[2021-02-10] MEDS: iohexol 300 mg/mL 100 mL Btl IV (16:12)
--- NOTE | 2021-02-10 16:51 | PC.PHAR ---
pt states he fills his medications at [facility] and if they fill it then he takes it-medications entered are what shows has been filled on ext med history-notes are made on the pharmacy comments
[2021-02-10 18:06] LABS: Amphetamines Screen Urine Negative (Negative); Barbiturates Screen Urine Negative (Negative); Benzodiazepines Screen Urine Negative (Negative); Cocaine Screen Urine Negative (Negative); Opiate Screen Urine Positive (Negative); PCP Screen Urine Negative (Negative); THC Screen Urine Negative (Negative)
[2021-02-10 18:30] LABS: SARS Covid-2 Antigen Negative (Negative)
--- NOTE | 2021-02-10 18:34 | ED_ITS ---
HPI - Extremity Problem General: Chief complaint: Extremity Injury, Lower Stated complaint: fall/ ankle deformity/ etoh Time Seen by Provider: 02/10/21 15:21 Source: patient, EMS and RN notes reviewed Mode of arrival: EMS Limitations: other (alcohol intoxication) History of Present Illness: HPI Narrative: Patient is a 60-year-old male with a history of HIV, alcohol abuse, atrial fibrillation on Eliquis anticoagulation who presents to the emergency department following a fall. He was apparently walking of a homemade rope bridge and fell this afternoon. He was obviously int oxicated and the ambulance drivers noted that he had a deformity of his right ankle. They put him in a splint and brought him into the emergency department to be evaluated. In the ambulance the patient refused an IV and threatened to punch the EMT. On arrival to the emergency department he was initially belligerent, was trying to get up and was not cooperative. He however eventually settled down. Complaint: extremity pain Onset (ago): hour(s) (1) Pain Consistency: constant Location: right and lower extremity Severity scale (1-10): 10 Quality: sharp Radiation: none Relieving factors: nothing Exacerbating factors: weight bearing and palpation Associated symptoms: Deny arthralgias, chest pain, fever(s), myalgias, rash or short of breath Review of Systems General: Reports: 10 or more systems reviewed and unremarkable except in HPI and below Const: Denies: fever(s) Card: Denies: chest pain Skin/Breast: Denies: rash PFS ED PFSH: Medical History (Updated 02/10/21 @ 22:58 by Paola Alvarado [place], [facility] [place] Alcohol use disorder Anorexia Atrial fibrillation Colon polyps COPD (chronic obstructive pulmonary disease) Severe COPD Deliberate medication overdose Depression Depressive disorder Diverticulitis / Diverticulosis GI bleed Was taken off Coumadin for a month in 2016 after a bleeding gastric ulcer, currently on Eliquis History of peptic ulcer disease HIV (human immunodeficiency virus infection) Hypogonadism Liver tumor Lymphoma 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 No evidence of recurrence, currently getting CHIEF MEDICAL DIRECTOR prophylaxis with intrathecal methotrexate with prophylactic radiation to right testicle, CHOP treatment Major depressive disorder Meningitis Orchialgia Posttraumatic stress disorder Pulmonary embolism DVT of right leg, 2009 Pulmonary hypertension After PE Suicide attempt Surgical History H/O colonoscopy 2001 -diverticulosis, colon polyps / 2005 -diverticulosis, small telangiectasia / 01/2016 -diverticulosis with intrinsic stenosis and sigmoid H/O esophagogastroduodenoscopy 2005 -reflux esophagitis, superficial gastric erosions with hemorrhagic gastritis, duodenitis /2008 -reflux esophagitis, gastritis, small chronic gastric ulcer H/O hemorrhoidectomy History of orchiectomy, unilateral L -- diffuse large B-cell lymphoma Family History Other No pertinent family history Social History Smoking and tobacco status: current every day smoker cigarettes Packs smoked per day: 2 Alcohol intake: current Lives independently: Yes Housing: House Physical Exam Const: COMMON NORMALS: no acute distress, average body habitus, patient oriented x3, no limitations, healthy appearing, alert and well nourished HENMT: COMMON NORMALS: normocephalic, atraumatic and moist oral mucous membranes HEAD & SCALP: normocephalic and atraumatic Eye: COMMON NORMALS: Equal, round and reactive pupils present, EOMs intact bilaterally, conjunctivae normal and no scleral icterus CONJUNCTIVA: Yes conjunctivae normal PUPIL: Yes Equal, round and reactive pupils present Neck/C-Spine: COMMON NORMALS: full ROM, supple, no meningeal signs, no JVD and No carotid bruits Resp: COMMON NORMALS: normal respiratory effort, No retractions, No use of accessory muscles, clear to auscultation bilaterally and percussion normal AUSCULTATION: clear to auscultation bilaterally PERCUSSION: percussion normal Cardio: COMMON NORMALS: no JVD, regular rate, regular rhythm, S1 normal heart sound present, S2 normal heart sound present, No gallops present (Cardio), No clicks present (Cardio), No murmurs present (Cardio), No rub (Cardio) and Peripheral pulses 2+ throughout RATE: regular rate RHYTHM: regular rhythm HEART SOUNDS: S1 normal heart sound present and S2 normal heart sound present PERIPHERAL PULSES: Peripheral pulses 2+ throughout GI: COMMON NORMALS: Normal to inspection, nondistended, normoactive bowel sounds present, Soft to palpation, non-tender, No hepatosplenomegaly present, no masses and no bruits PALPATION: Yes Soft to palpation and Yes No hepatosplenomegaly present Extremity: COMMON NORMALS: normal to inspection, full ROM, capillary refill normal, no calf tenderness and no pedal edema RIGHT LOWER EXTREMITY: Yes lower leg Right lower leg: Yes inspection (deformity of his distal leg), Yes palpation (marked tenderness) and Yes neurovascular exam (intact dorsalis pedis and neurologic exam) Neuro: COMMON NORMALS: patient oriented x3 SENSORIUM/ORIENTATION: Yes alert MENINGEAL SIGNS: Yes no meningeal signs Skin: COMMON NORMALS: no rashes or lesions noted, no wounds, turgor normal, no jaundice, no petechiae and no mottling GENERAL SKIN EXAM: no rashes or lesions noted and turgor normal Procedures Orthopedic Splinting/Casting Injury #1: Side: right Lower Extremity Injury Location: lower leg Lower Extremity Immobilizer: stirrup splint Course Consultations: Consultation #1: Discussed the patient with Dr. Clarke, orthopedic surgeon on-call. He advised that we admit the patient to the hospitalist service and he will take the patient to the OR in the morning. Time: 16:57 Consultation #2: Discussed the patient with Dr. Richards, hospitalist and he kindly accepted the patient to his service Time: 17:05 Vital Signs: Vital signs: Vital Signs Temperature 98.2 F 02/10/21 15:33 Pulse Rate 101 H 02/10/21 22:00 Respiratory Rate 16 02/10/21 22:00 Blood Pressure 105/61 02/10/21 22:00 Pulse Oximetry 91 02/10/21 22:00 MDM - Extremity (Nontraumatic) MDM Narrative: Medical decision making narrative: 60-year-old gentleman who is a known alcoholic and who was intoxicated today and fell on sustained a right tibia and fibula fracture. He was uncooperative in the emergency department and he also had difficulty getting his pain under control. He required multiple doses of intravenous pain medications. The patient has pulmonary hypertension and is oxygen dependent at 4 L/min. He also is HIV positive and is on treatment for this. Right lower extremity was splinted using a posterior splint with a stirrup and h e is admitted to the hospital for surgery tomorrow. No other injuries on examination or imaging were noted. Medical Records: Attestation: I reviewed the patient's medical records. Lab Data: Attestation: I reviewed the patient's lab results. Labs: Lab Results 02/10/21 02/10/21 02/10/21 Range/Units 15:15 15:15 15:15 WBC 4.7 (4.0-10.0) 10^3/ uL RBC 4.18 (4.1-5.3) 10^6/u L Hgb 13.2 (11.7-16.6) g/dL Hct 39.4 L (42.0-52.0) % MCV 94.3 H (80-94) fL MCH 31.6 (28.0-34.0) pg MCHC 33.5 (30.0-36.0) g/dL RDW 13.2 (12.1-15.1) % Plt Count 157 (130-400) 10^3/c mm MPV 8.7 (7.4-10.4) fL Neut % (Auto) 41.8 % Lymph % (Auto) 46.4 % [place] % (Auto) 7.5 % Eos % (Auto) 3.2 % Baso % (Auto) 1.1 % Neut # (Auto) 1.96 (1.8-7.7) 10^3/u L Lymph # (Auto) 2.2 (0.8-4.8) 10^3/u L [place] # (Auto) 0.4 (0.2-0.9) 10^3/u L Eos # (Auto) 0.2 (0.0-0.8) 10^3/u L Baso # (Auto) 0.1 (0.0-0.1) 10^3/u L Nucleated RBC % (a uto) 0 % Nucleated RBCs # 0.0 /100WBC Sodium 134 L (136-145) mmol/L Potassium 4.0 (3.5-5.1) mmol/L Chloride 100 (98-107) mmol/L Carbon Dioxide 20 L (22-29) mmol/L Anion Gap 18.0 (5-19) BUN 6 (6-20) mg/dL Creatinine 0.7 (0.7-1.2) mg/dL GFR Calculation 115.4 (90-130) mL/min Glucose 95 (65-115) mg/dL Calculated Osmolal ity 275 L (285-295) mOsm/k g Calcium 8.1 L (8.5-10.5) mg/dL Total Bilirubin 0.3 (0.15-1.2) mg/dL AST 21 (0-40) U/L ALT 13 (0-41) U/L Alkaline Phosphata se 103 (40-130) IU/L Total Protein 6.6 (6.6-8.7) g/dL Albumin 3.9 (3.5-5.2) g/dL Globulin 2.7 (1.3-4.6) g/dL Ethyl Alcohol 294 H (0-10) mg/dL Blood Type AB Positive Rho(D) Type Positive / 4+ Antibody Screen Negative Imaging Data^: Other CT: Attestation: I personally reviewed and interpreted this imaging study as follows: Radiologist's impression: [address] [id number] Scan ReportSigned Patient: Flakito Almanzar #: [id number]: 1960[facility]#:[id number]/Sex: 60 / MADM Date: 02/10/21Loc: ERRoom/Bed:Attending Dr: Ordering Provider/Ordering MD: Paola Alvarado [place] [facility] [place] of Service: 02/10/21 Procedure(s): CT chest abd pel w con* Accession Number(s): [id number] Report Number: [id number] WS: [id number] CT CHEST, ABDOMEN, AND PELVIS TECHNIQUE: Contrast-enhanced CT of the chest, abdomen, and pelvis with coronal and sagittal reformatted images. CLINICAL INFORMATION: alcohol intoxication, fall COMPARISON: None. DLP: 1974.[address] scans at [facility] use at least one of these dose optimization techniques: automated exposure control; mA and/or kV adjustment per patient size (includes targeted exams where dose is matched to clinical indication); or iterative reconstruction. CT CHEST: Moderate chronic emphysematous changes. Slight hazy infiltrates and dependent atelectasis in the lung bases. Subsegmental atelectasis in the right middle lobe and lingula. No focal consolidation. No significant pleural fluid. Recommend correlation for pneumonia. Normal caliber thoracic aorta. Enlarged central pulmonary arteries can be seen with pulmonary arterial hypertension. No mediastinal or hilar lymphadenopathy. CT ABDOMEN AND PELVIS: Mild diffuse fatty infiltration of the liver. Normal GE junction. Normal spleen. Adrenal glands are normal. Normal renal parenchymal enhancement. No hydronephrosis. Pancreas appears normal. Normal caliber abdominal aorta. Urine distended bladder. Colonic diverticulosis. Mild thickening of the sigmoid colon with mucosal enhancement can be seen with mild or early diverticulitis.Colon is otherwise normal in appearance. No evidence of high- grade small or large bowel obstruction. Chronic left rib fractures with callus formation. CT/CT chest abd pel w con* IMPRESSION: 1. No evidence of acute aortic injury. No pneumothorax. 2. Slight patchy infiltrates and dependent atelectasis in the lung bases. Recommend correlation for pneumonia. 3. Mild diffuse fatty infiltration the liver. 4. No free fluid in the abdomen and pelvis. 5. Urine distended bladder. 6. Mild diffuse thickening of the sigmoid colon with extensive diverticulosis. Mild mucosal enhancement with a trace amount of induration. Recommend correlation for early or mild diverticulitis. Colon is otherwise normal. 7. No other significant findings. Dictated By:Jon Spain MDSigned By:Jon Spain MDSigned Date/Time:02/10/21 1637DD/ 1625 CT Head: Attestation: I personally reviewed and interpreted this imaging study as follows: Radiologist's impression: [address] [id number] Scan ReportSigned Patient: Flakito Almanzar #: [id number]: 1960cct#:[id number]/Sex: 60 / MADM Date: 02/10/21Loc: ERRoom/Bed:Attending Dr: Ordering Provider/Ordering MD: Paola Alvarado [place] [facility] of Service: 02/10/21 Procedure(s): CT head wo con* [id number] Accession Number(s): [id number] Report Number: [id number] WS: [id number] CT HEAD TECHNIQUE: Noncontrast CT of the head obtained from the skullbase to the vertex. CLINICAL INFORMATION: alcohol intoxication, fall, abrasion on forehead COMPARISON: None. DLP: 698.[address] scans at [facility] use at least one of these dose optimization techniques: automated exposure control; mA and/or kV adjustment per patient size (includes targeted exams where dose is matched to clinical indication); or iterative reconstruction. FINDINGS: No evidence of intracranial hemorrhage or mass effect. Ventricular system and basal cisterns are patent. Mild small vessel changes with mild parenchymal volume loss. No extra-axial fluid collections. No evidence of mass or mass effect. Normal solomon-white differentiation. Paranasal sinuses and mastoid air cells are well aerated. .Normal visualized soft tissues. CT/CT head wo con* [id number] IMPRESSION: 1. No evidence of intracranial hemorrhage or mass effect. 2. Mild small vessel changes. Mild parenchymal volume loss. 3. No acute intracranial findings. Dictated By:Jon Spain MDSigned By:Jon Spain MDSigned Date/Time:02/10/211624DD/ 21 Xray Ortho: Attestation: I personally reviewed and interpreted this imaging study as follows: Radiologist's impression: [address], [place] [address]SVsg ReportSigned Patient: Flakito Almanzar #: [id number]: [id number]#:[id number]/Sex: 60 / MADM Date: 02/10/21Loc: ERRoom/Bed:Attending Dr: Ordering Provider/Ordering MD: Paola Alvarado [place] [facility] [place] of Service: 02/10/21 Procedure(s): XR tibia fibula RT 2V 53075 Accession Number(s): [id number] Report Number: [id number] WS: [id number] Right leg including the tibia and fibula, AP and lateral views, 02/10/2021 Clinical Data: alcohol intoxication, fall Comparison: None. Findings: There is an oblique slightly displaced fracture of the distal right tibia. There is an oblique displaced fracture of the proximal left fibula. XR/XR tibia fibula RT 2V 60607 Impression: Fractures of the proximal right fibula and distal right tibia. Dictated By:Mila Loza MDSigned By:Mila Loza MDSigned Date/Time:02/10/21 1607DD/ 1550 Discharge Plan Discharge Patient Disposition: Admitted As Inpatient Admit Provider: Carlos Richards Clinical Impression: Closed fractures involving multiple regions of right lower extremity, Alcohol abuse, Pulmonary hypertension HIV (human immunodeficiency virus infection) Qualifiers: HIV symptom status: asymptomatic, with no history of HIV-related illness Qualified Code(s): Z21 - Asymptomatic human immunodeficiency virus [HIV] infection status Condition: Stable Coding Level of Care Code ED Ply Splicer for Osmin Ordonez
--- NOTE | 2021-02-10 19:00 | PC.NURSE ---
pt noted to be on his phone with no noted distress at this time. Pt reports pain of 10/10 and is requesting pain medication. Pt currently on 6 L NC with an O2 of 89- 91%. Dr. Schuster aware.
--- NOTE | 2021-02-10 19:02 | P.HP_ITS ---
Providers/Chief Complaint Admitting Physician: Carlos Richards Primary Care Provider: Rasheed Spivey MD Chief Complaint: fall/ ankle deformity/ etoh History of Present Illness 60-year-old gentleman with history of alcoholism, HIV, pulmonary hypertension, COPD, on chronic oxygen 4 L at home, a number of additional prior medical conditions, including atrial fibrillation, on chronic anticoagulation with Eliquis, had relapsed to drinking about 6 months ago. Currently living indep endently with his mother coming to check on him. He fell off a foot bridge/ramp on home property resulting in right ankle pain. In ER found to have fractures of proximal right fibula and distal right tibia. Head CT, CT chest abdomen pelvis without findings of additional trauma. Slight patchy infiltrates and dependent atelectasis in lung bases. Pneumonia cannot be excluded. Mild diffuse fatty infiltration of the liver. Mild diffuse thickening of sigmoid colon with extensive diverticulosis. Mild mucosal enhancement with a trace amount of induration. Early or mild diverticulitis could appear similar. Initially hypotensive, 85/50, but blood pressure subsequently spontaneously to 100 teens systolic with elevation of lower extremities. Right ankle fracture splinted in ER. Orthopedics has been contacted and will be seeing patient for arrangements for fracture repair. He asks for pain medication several times during the visit. In ER he was noted intoxicated, his alcohol elevated at 294. He follows with ID in [place] for HIV. He has taken his HIV medication this morning. Prior viral loads were undetectable. Last visit 3 months ago. 3 months ago he also visited his director of land acquisition with whom he follows for pulmonary hypertension. He took OPSUMIT and sildenafil this morning. He otherwise has been at baseline state of health. He had completed COVID-19 vaccination series in September. Review of Systems Const: Denies: fever(s), chills, body aches or malaise Eyes: Denies: change in vision or eye redness ENMT: Denies: throat pain, oral sores or ear or mastoid pain Card: Denies: chest pain, edema, pre-syncope or dyspnea on exertion Resp: Denies: dyspnea, productive cough, change in phlegm color or hemoptysis GI: Denies: abdominal pain, nausea, vomiting, diarrhea, constipation, hematochezia or melena : Denies: flank pain, difficulty urinating, urinary frequency or hematuria Musc: Reports: extremity pain (RLE); Denies: back pain, joint swelling or joint redness Skin/Breast: Denies: rash, sores or new lesions Neuro: Denies: headache(s), numbness in extremities, weakness in extremities, dizziness, confusion or seizure-like activity Endo: Denies: polyuria or polydipsia [place]/Lymph: Denies: easy bleeding or purpura All/Imm: Denies: urticaria, throat swelling or tongue swelling Medications/Allergies Home Medications Medication Instructions Recorded Confirmed Last Taken Type Dovato 1 tab PO DAILY 04/11/20 02/10/21 11/25/20 History alprazolam 0.25 mg PO TID PRN 04/11/20 02/10/21 11/25/20 History sildenafil (pulm.hypertension) 20 mg PO TID 04/11/20 02/10/21 11/25/20 History Eliquis 5 mg PO BID 06/29/20 02/10/21 11/21/20 History Opsumit 10 mg PO DAILY 06/29/20 02/10/21 11/25/20 History albuterol sulfate 2 inh INHALATION Q4H PRN #18 gm 06/29/20 02/10/21 11/25/20 Rx diltiazem HCl 240 mg PO DAILY 06/29/20 02/10/21 11/25/20 History fluconazole 100 mg PO DAILY 06/29/20 02/10/21 11/25/20 History multivitamin 1 tab PO DAILY 06/29/20 02/10/21 11/25/20 History acetaminophen [Tylenol Extra 500 - 1,000 mg PO PRN 09/21/20 02/10/21 11/25/20 History Strength] folic acid 1 mg PO DAILY 09/21/20 02/10/21 11/25/20 History mirtazapine 15 mg PO BEDTIME 02/10/21 02/10/21 Unknown History potassium chloride 20 meq PO BID 02/10/21 02/10/21 Unknown History testosterone 2 pump TOPICAL QAM 02/10/21 02/10/21 Unknown History trazodone 300 mg PO BEDTIME 02/10/21 02/10/21 Unknown History Allergies Allergy/AdvReac Type Severity Reaction Status Date / Time No Known Allergies Allergy Verified 02/10/21 15:40 PFSH Acute PFSH: Medical History (Updated 02/10/21 @ 19:41 by Carlos Richards MD) Alcohol use disorder Anorexia Atrial fibrillation Colon polyps COPD (chronic obstructive pulmonary disease) Severe COPD Deliberate medication overdose Depression Depressive disorder Diverticulitis / Diverticulosis GI bleed Was taken off Coumadin for a month in 2015 after a bleeding gastric ulcer, currently on Eliquis History of peptic ulcer disease HIV (human immunodeficiency virus infection) Hypogonadism Liver tumor Lymphoma 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 No evidence of recurrence, currently getting FINANCIAL ACCOUNTING ANALYST prophylaxis with intrathecal methotrexate with prophylactic radiation to right testicle, CHOP treatment Major depressive disorder Meningitis Orchialgia Posttraumatic stress disorder Pulmonary embolism DVT of right leg, 2009 Pulmonary hypertension After PE Suicide attempt Surgical History H/O colonoscopy 2001 -diverticulosis, colon polyps / 2005 -diverticulosis, small telangiectasia / 01/2016 -diverticulosis with intrinsic stenosis and sigmoid H/O esophagogastroduodenoscopy 2005 -reflux esophagitis, superficial gastric erosions with hemorrhagic gastritis, duodenitis /2008 -reflux esophagitis, gastritis, small chronic gastric ulcer H/O hemorrhoidectomy History of orchiectomy, unilateral L -- diffuse large B-cell lymphoma Family History Other No pertinent family history Social History Smoking and tobacco status: current every day smoker cigarettes Packs smoked per day: 2 Alcohol intake: current Lives independently: Yes Housing: House Vitals/I&O/Wt Last Vital Signs Temp 98.2 F 02/10/21 15:33 Pulse 108 H 02/10/21 18:40 Resp 16 02/10/21 18:40 BP 109/79 02/10/21 18:40 Pulse Ox 87 L 02/10/21 18:40 Weight last 48 hrs Weight 77.111 kg Physical Exam Const: COMMON NORMALS: no acute distress and patient oriented x3 HENMT: COMMON NORMALS: oropharynx normal Neck/C-Spine: COMMON NORMALS: no JVD Resp: COMMON NORMALS: normal respiratory effort and clear to auscultation bilaterally AUSCULTATION: clear to auscultation bilaterally Cardio: COMMON NORMALS: no JVD, regular rhythm, S1 normal heart sound present, S2 normal heart sound present and No murmurs present (Cardio) RHYTHM: regular rhythm HEART SOUNDS: S1 normal heart sound present and S2 normal heart sound present GI: COMMON NORMALS: Normal to inspection, nondistended, normoactive bowel sounds present, Soft to palpation and non-tender PALPATION: Yes Soft to palpation Extremity: COMMON NORMALS: no joint enlargement and no pedal edema Neuro: COMMON NORMALS: patient oriented x3 and moves all extremities Skin: COMMON NORMALS: no rashes or lesions noted GENERAL SKIN EXAM: no rashes or lesions noted Data : 02/10/21 15:15 02/10/21 15:15 A&P Assessment and plan (1) Closed fractures involving multiple regions of right lower extremity: Hold anticoagulation with Eliquis. Pending assessment by orthopedics. Recheck hemoglobin. Pain control. Monitor oxygenation. At baseline he is on 4 L. Currently on 6 L, possibly secondary to supine positioning. Some noted mild patchy infiltrates in dependent atelectasis in lung bases. He denies any symptoms of pneumonia. Otherwise no suggestion of sepsis. Afebrile. No leukocytosis. Add NSAID spirometry. Monitor for any changes. Status: Acute (2) HIV (human immunodeficiency virus infection): Follows with ID in [place]. Continue Dovato if his mother will be a ble to bring it for him. Reports 3 months ago last HIV viral load undetectable. Denies any fevers. Denies any shortness of breath. Denies any dysphagia. No diarrhea. No rash. Denies any other concerning symptoms. Apart from alcohol intoxication, fall reports has been at baseline state of health. Reports no problems during recent evaluation 3 months ago. Status: Chronic (3) Alcohol abuse: Alcohol intoxication. History of withdrawal. Monitor for withdrawal. Benzodiazepines per [facility] protocol. Thiamine, folic acid. Multivitamin. Status: Acute (4) Pulmonary hypertension: Follows with pulmonology in [place]. Continue OPSUMIT, sildenafil if his mother is able to bring it for him. Status: Acute Additional A&P Information Is a blood pressure in ER. Improved. Hold diltiazem for now. Monitor. Mild colonic thickening: Denies any diarrhea. Denies any abdominal discomfort. No signs of colitis or diverticulitis at this time. Unclear significance. Monitor for any changes in condition. COPD: Not in exacerbation at the moment Atrial fibrillation History of depression Other morbidities noted Could not reach his mother for update. Attestations Medical Necessity Statement*: Admission of over 2 midnights is going to needed for assessment management of right lower extremity fractures in the setting of anticoagulation, with alcohol intoxication and gentleman with underlying HIV, pulmonary hypertension, chronic hypoxia on chronic oxygen. Coding Level of Care Code Acute Ski Lift Operator for Osmin Ordonez Diagnoses Closed fractures involving multiple regions of right lower extremity S82.91XA HIV (human immunodeficiency virus infection) B20 Alcohol abuse F10.10 Pulmonary hypertension I27.20
--- NOTE | 2021-02-10 19:23 | PC.NURSE ---
held at this time per Dr. Alvarado and pt current vitals.
[2021-02-10] MEDS: acetaminophen 1,000 MG/100 ML PIGGYBACK 400 MG IV (19:56)
[2021-02-10] MEDS: trazodone 150 mg Tablet 300 MG PO (22:51)
[2021-02-10] MEDS: mirtazapine 15 mg Tablet PO (22:51)
[2021-02-10 23:30] LABS: Hemoglobin 13.2 g/dL (11.7-16.6)
[2021-02-11] VITALS (42 sets, daily range): BP systolic 90–156; BP diastolic 52–96; PULSE 97–123; RESP 10–27; TEMP 36.4–37.6; O2SAT 88–94
--- NOTE | 2021-02-11 | XR_ITS ---
WS: [id number] Right leg including the tibia and fibula, seen on fluoroscopy views, 02/11/2021 Clinical Data: orif right tib fib Comparison: Right leg, 02/10/2021 Findings: There is a long intramedullary guillermina extending the length of the right tibia reducing the distal right tibial fracture. There are orthopedic screws both proximally and distally to aid in the fixation of t he guillermina. There is a proximal right fibular fracture. XR/XR tibia fibula RT 2V [id number] Impression: Internal fixation of distal right tibial fracture.
--- NOTE | 2021-02-11 | SCC_ITS ---
Procedure Done: Right IM nail tibia 106.3 seconds of fluoroscopic guidance, for a cumulative dose of 3.2 mGy, was provided to Dr. Clarke by the radiology department. C-arm images of the RIGHT tibia fibula were saved for the patient's permanent record. [facility]
[2021-02-11] MEDS: morphine 4 mg/mL SDV 1 mL IVP ×5 (03:36→22:13)
[2021-02-11 05:33] LABS: Basophils % 0.5 %; Eosinophils # 0.1 10^3/uL (0.0-0.8); Eosinophils % 0.9 %; Hematocrit 38.3 % (42.0-52.0); Hemoglobin 12.6 g/dL (11.7-16.6); Lymphocytes # 1.1 10^3/uL (0.8-4.8); Lymphocytes % 17.3 %; Mean Corpuscular HGB Conc 32.9 g/dL (30.0-36.0); Mean Corpuscular Hemoglobin 31.5 pg (28.0-34.0); Mean Corpuscular Volume 95.8 fL (80-94); Mean Platelet Volume 8.7 fL (7.4-10.4); Monocytes # 0.5 10^3/uL (0.2-0.9); Monocytes % 7.4 %; Neutrophils # 4.68 10^3/uL (1.8-7.7); Neutrophils % 73.7 %; Nucleated Red Blood Cells % 0 %; Platelet Count 134 10^3/cmm (130-400); Red Cell Distribution Width 13.3 % (12.1-15.1); White Blood Count 6.4 10^3/uL (4.0-10.0)
[2021-02-11 05:54] LABS: Alanine Aminotransferase 13 U/L (0-41); Albumin Level 3.6 g/dL (3.5-5.2); Alkaline Phosphatase 104 IU/L (40-130); Aspartate Amino Transferase 21 U/L (0-40); Blood Urea Nitrogen 10 mg/dL (6-20); Carbon Dioxide 25 mmol/L (22-29); Chloride 105 mmol/L (98-107); Glomerular Filtration Rate 137.9 mL/min (90-130); Glucose 93 mg/dL (65-115); Osmolality Calculated 287 mOsm/kg (285-295); Sodium 139 mmol/L (136-145); Total Bilirubin 0.7 mg/dL (0.15-1.2); Total Protein 6.6 g/dL (6.6-8.7)
[2021-02-11 05:59] LABS: Creatinine Clr Calc Pharmacy 145.1333
--- NOTE | 2021-02-11 07:10 | PC.NURSE ---
Patient remains in bed with right elevated. Remains on 6LPM oxygen. Nil distress noted. LISA saline locked. Urinal and call cadena in close reach. ST on monitor. Kept NPO overnight, possible surgery today. Bath given. Remains stable.
--- NOTE | 2021-02-11 07:17 | PM.CONSULT ---
Providers/Reason For Consult Consulting Physician/Specialty*: hospitalist Reason for Consult*: right tibia fracture Attending Physician: Carlos Richards Primary Care Provider: Rasheed Spivey MD History of Present Illness History of Present Illness Flakito Almanzar is a 60 year old male with history of alcoholism, HIV, pulmonary hypertension, COPD, on chronic oxygen 4 L at home, a number of additional prior medical conditions, including atrial fibrillation, on chronic anticoagulation with Eliquis, had relapsed to drinking about 6 months ago. Currently living independently with his mother coming to check on him. He fell off a foot bridge/ramp on home property resulting in right ankle pain. In ER found to have fractures of proximal right fibula and distal right tibia. Head CT, CT chest abdomen pelvis without findings of additional trauma. Slight patchy infiltrates and dependent atelectasis in lung bases. Pneumonia cannot be excluded. Mild diffuse fatty infiltration of the liver. Mild diffuse thickening of sigmoid colon with extensive diverticulosis. Mild mucosal enhancement with a trace amount of induration. Early or mild diverticulitis could appear similar. Review of Systems General: Reports: 10 or more systems reviewed and unremarkable except in HPI and below Const: Denies: fever(s), chills, body aches or malaise Eyes: Denies: change in vision or eye redness ENMT: Denies: throat pain, oral sores or ear or mastoid pain Card: Denies: chest pain, edema, pre-syncope or dyspnea on exertion Resp: Denies: dyspnea, productive cough, change in phlegm color or hemoptysis GI: Denies: abdominal pain, nausea, vomiting, diarrhea, constipation, hematochezia or melena : Denies: flank pain, difficulty urinating, urinary frequency or hematuria Musc: Reports: extremity pain (RLE); Denies: back pain, joint swelling, joint redness or joint warmth Skin/Breast: Denies: rash, sores or new lesions Neuro: Denies: headache(s), numbness in extremities, weakness in extremities, dizziness, confusion or seizure-like activity Endo: Denies: polyuria or polydipsia Obye/Lymph: Denies: easy bleeding or purpura All/Imm: Denies: urticaria, throat swelling, tongue swelling or acute wheezing Meds/Allergies Home Medications and Allergies Home Medications Medication Instructions Recorded Confirmed Last Taken Type Dovato 1 tab PO DAILY 04/11/20 02/10/21 11/25/20 History alprazolam 0.25 mg PO TID PRN 04/11/20 02/10/21 11/25/20 History sildenafil (pulm.hypertension) 20 mg PO TID 04/11/20 02/10/21 11/25/20 History Eliquis 5 mg PO BID 06/29/20 02/10/21 11/21/20 History Opsumit 10 mg PO DAILY 06/29/20 02/10/21 11/25/20 History albuterol sulfate 2 inh INHALATION Q4H PRN #18 gm 06/29/20 02/10/21 11/25/20 Rx diltiazem HCl 240 mg PO DAILY 06/29/20 02/10/21 11/25/20 History fluconazole 100 mg PO DAILY 06/29/20 02/10/21 11/25/20 History multivitamin 1 tab PO DAILY 06/29/20 02/10/21 11/25/20 History acetaminophen [Tylenol Extra 500 - 1,000 mg PO PRN 09/21/20 02/10/21 11/25/20 History Strength] folic acid 1 mg PO DAILY 09/21/20 02/10/21 11/25/20 History mirtazapine 15 mg PO BEDTIME 02/10/21 02/10/21 Unknown History potassium chloride 20 meq PO BID 02/10/21 02/10/21 Unknown History testosterone 2 pump TOPICAL QAM 02/10/21 02/10/21 Unknown History trazodone 300 mg PO BEDTIME 02/10/21 02/10/21 Unknown History Allergies Allergy/AdvReac Type Severity Reaction Status Date / Time No Known Allergies Allergy Verified 02/10/21 15:40 Current Medications Current Medications Generic Name Dose Route Start Last Admin Trade Name Freq PRN Reason Stop Dose Admin Mirtazapine 15 mg 02/10/21 22:31 02/10/21 22:51 Mirtazapine 15 Mg Tablet PO 15 mg BEDTIME GRACIELA Administration Morphine Sulfate 4 mg 02/10/21 22:31 02/11/21 03:36 Morphine 4 Mg/Ml Sdv 1 Ml IVP 4 mg Q4H PRN Administration SEVERE PAIN Non-Formulary Medication 20 mg 02/10/21 22:31 02/10/21 22:56 Sildenafil (Pulm.Hypertension) PO Not Given TID GRACIELA Trazodone HCl 300 mg 02/10/21 22:31 02/10/21 22:51 Trazodone 150 Mg Tablet PO 300 mg BEDTIME GRACIELA Administration PFSH Acute PFSH: Medical History (Updated 02/10/21 @ 22:58 [place] Paola Alvarado [place] [facility] [place] use disorder Anorexia Atrial fibrillation Colon polyps COPD (chronic obstructive pulmonary disease) Severe COPD Deliberate medication overdose Depression Depressive disorder Diverticulitis / Diverticulosis GI bleed Was taken off Coumadin for a month in 2015 after a bleeding gastric ulcer, currently on Eliquis History of peptic ulcer disease HIV (human immunodeficiency virus infection) Hypogonadism Liver tumor Lymphoma 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 No evidence of recurrence, currently getting WINDER OPERATOR prophylaxis with intrathecal methotrexate with prophylactic radiation to right testicle, CHOP treatment Major depressive disorder Meningitis Orchialgia Posttraumatic stress disorder Pulmonary embolism DVT of right leg, 2009 Pulmonary hypertension After PE Suicide attempt Surgical History H/O colonoscopy 2001 -diverticulosis, colon polyps / 2005 -diverticulosis, small telangiectasia / 01/2016 -diverticulosis with intrinsic stenosis and sigmoid H/O esophagogastroduodenoscopy 2005 -reflux esophagitis, superficial gastric erosions with hemorrhagic gastritis, duodenitis /2008 -reflux esophagitis, gastritis, small chronic gastric ulcer H/O hemorrhoidectomy History of orchiectomy, unilateral L -- diffuse large B-cell lymphoma Family History Other No pertinent family history Social History Smoking and tobacco status: current every day smoker cigarettes Packs smoked per day: 2 Alcohol intake: current Lives independently: Yes Housing: House Vitals/I&O/Wt Last Vital Signs Temp 97.7 F 02/11/21 04:00 Pulse 108 H 02/11/21 06:00 Resp 15 02/11/21 06:00 BP 112/61 02/11/21 06:00 Pulse Ox 90 02/11/21 06:00 02/10/21 02/11/21 02/11/21 22:59 06:59 14:59 Intake Total 100 / 100 Output Total 250 / 250 Balance 100 / 100 -250 / -150 Weight last 48 hrs Weight 173 lb Weight 170 lb Physical Exam Narrative: EXAM NARRATIVE: CONSTITUTIONAL: The patient is a normal appearing [] in no apparent distress. GENERAL: Patient in no acute distress. CARDIAC: Regular rate and rhythm. CHEST: Normal inspiratory effort, normal respiratory rate. ABDOMEN: Soft and nontender. SKIN: Clear, warm and intact. NEURO?PSYCH: The patient is alert and oriented to person, place and time. Sensorv /SILT Motor StrengthShoulder abduction C5 5/5Wrist extension C6 5/5Elbow extension C7 5/5Hand Fiscal Officer C8 5/5Finger abduction T15/5 Radial/ Ulnar/ Median n intact LowerSensory (SILT)Motor StrengthHin flexion L2/3Ant/inner thigh 5/5Hip adduction L2/3 5/5Knee extension L4 Lat thigh, 5/5Toe dorsiflexion L5 5/5Ankle dorsiflexion L5/ [id number] flexion S1 5/5 DTRBleeps 2+Triceps 2+Brachioradialis 2+Patellar 2+Achilles 2+ MUSCULOSKELETAL: [] UPPEREXTREMITIES: The patient had full active ROM in fingers, wrist, elbow, and shoulder. The patient demonstrated ability to fully flex/extend/abduct/adduct fingers, make ok sign, cross 2nd/3rd digits, extend 1st digit fully.. Radial pulse 2+, CR<2 seconds. LOWER EXTREMITIES: Pt has full, active ROM of toes, ankle, knee, and hip. Dorsalis pedis/posterior tibialis pulses 2+, CR<2 seconds. SPINE: Skin warm, dry, intact. right leg in splint not tested A&P Assessment and plan (1) Closed fractures involving multiple regions of right lower extremity: fix today Status: Acute Consult Attestations Medical Necessity Statement: fx tibia Coding Level of Care Code Acute Fretted Instrument Maker Hand for Osmin Fwisra Diagnoses Closed fractures involving multiple regions of right lower extremity S82.91XA
--- NOTE | 2021-02-11 07:17 | ANES.PREANE2 ---
Pre-Anesthetic Assessment Pre-Anesthetic Assessment: Height/Weight: Height 1.83 m Weight 78.471 kg Temp Pulse Resp BP Pulse Ox 97.7 F 108 H 15 112/61 90 02/11/21 04:00 02/11/21 06:00 02/11/21 06:00 02/11/21 06:00 02/11/21 06:00 Preop Diagnosis: Hematochezia Proposed Procedure: Operation Date: 02/11/21 13:15 Proposed Procedures p IM Tibial Nail Insertion(Right) - Odilon Clarke, Familial anesthetic complications: None Was Beta Daniela taken within 24 hours: N/A Was Clonidine taken within 24 hours: N/A Last intake: > 8 hrs Social: Social History: Alcohol and Tobacco Exam: Pre-Anes Outpt Exam: alert, oriented x 3, clear to auscultation bilaterally and regular rate & rhythm Airway: Cervical ROM: WNL MP: 4 Dentition: Chipped Pulmonary: Pulmonary: COPD (on 4 L NC at baseline, currently at 5 L) Comments: Hx PE and Pulm HTN after DVT [id number] CV/HEM: CV/HEM: Afib (on eliquis) Comments: HIV+ Hepatic: Comments: cirrhosis GI: GI: PUD Metabolic: Comments: ETOH w/ hx of withdrawal - on CIWA protocol Anesthetic Plan: ASA status: 4 Anesthesia: General Risk of > 500 ml blood loss (7ml/kg in children): No Meds/Allergies Current Medications: Current Medications Generic Name Dose Route Start Last Admin Trade Name Freq PRN Reason Stop Dose Admin Mirtazapine 15 mg 02/10/21 22:31 02/10/21 22:51 Mirtazapine 15 M g Tablet PO 15 mg BEDTIME GRACIELA Administration Morphine Sulfate 4 mg 02/10/21 22:31 02/11/21 03:36 Morphine 4 Mg/Ml Sdv 1 Ml IVP 4 mg Q4H PRN Administration SEVERE PAIN Non-Formulary Medi cation 20 mg 02/10/21 22:31 02/10/21 22:56 Sildenafil (Pulm .Hypertension) PO Not Given TID GRACIELA Trazodone HCl 300 mg 02/10/21 22:31 02/10/21 22:51 Trazodone 150 Mg Tablet PO 300 mg BEDTIME GRACIELA Administration PFSH Anesthesia PFSH: Medical History (Updated 02/10/21 @ 22:58 by Paola Alvarado MD, [facility] [place] Alcohol use disorder Anorexia Atrial fibrillation Colon polyps COPD (chronic obstructive pulmonary disease) Severe COPD Deliberate medication overdose Depression Depressive disorder Diverticulitis / Diverticulosis GI bleed Was taken off Coumadin for a month in 2015 after a bleeding gastric ulcer, currently on Eliquis History of peptic ulcer disease HIV (human immunodeficiency virus infection) Hypogonadism Liver tumor Lymphoma 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 No evidence of recurrence, currently getting POLYSILICON PREPARATION WORKER prophylaxis with intrathecal methotrexate with prophylactic radiation to right testicle, CHOP treatment Major depressive disorder Meningitis Orchialgia Posttraumatic stress disorder Pulmonary embolism DVT of right leg, 2009 Pulmonary hypertension After PE Suicide attempt Surgical History H/O colonoscopy 2001 -diverticulosis, colon polyps / 2005 -diverticulosis, small telangiectasia / 01/2016 -diverticulosis with intrinsic stenosis and sigmoid H/O esophagogastroduodenoscopy 2005 -reflux esophagitis, superficial gastric erosions with hemorrhagic gastritis, duodenitis /2008 -reflux esophagitis, gastritis, small chronic gastric ulcer H/O hemorrhoidectomy History of orchiectomy, unilateral L -- diffuse large B-cell lymphoma Family History Other No pertinent family history Social History Smoking and tobacco status: current every day smoker cigarettes Packs smoked per day: 2 Alcohol intake: current Lives independently: Yes Housing: House Data Anesthesia CBC & Chem 7: 02/11/21 05:20 02/11/21 05:20 Other Labs: Laboratory Results - last 48 hr 02/10/21 02/10/21 02/10/21 15:15 15:15 15:15 WBC 4.7 RBC 4.18 Hgb 13.2 Hct 39.4 L MCV 94.3 H MCH 31.6 MCHC 33.5 RDW 13.2 Plt Count 157 MPV 8.7 Neut % (Auto) 41.8 Lymph % (Auto) 46.4 Mitchell % (Auto) 7.5 Eos % (Auto) 3.2 Baso % (Auto) 1.1 Neut # (Auto) 1.96 Lymph # (Auto) 2.2 Mitchell # (Auto) 0.4 Eos # (Auto) 0.2 Baso # (Auto) 0.1 Nucleated RBC % (auto) 0 Nucleated RBCs # 0.0 Sodium 134 L Potassium 4.0 Chloride 100 Carbon Dioxide 20 L Anion Gap 18.0 BUN 6 Creatinine 0.7 GFR Calculation 115.4 Glucose 95 Calculated Osmolality 275 L Calcium 8.1 L Total Bilirubin 0.3 AST 21 ALT 13 Alkaline Phosphatase 103 Total Protein 6.6 Albumin 3.9 Globulin 2.7 Urine Opiates Screen Ur Barbiturates Screen Ur Phencyclidine Scrn Ur Amphetamines Screen U Benzodiazepines Scrn Urine Cocaine Screen U Marijuana (THC) Screen Ethyl Alcohol 294 H SARS-CoV-2 Ag (Rapid) Blood Type AB Positive Rho(D) Type Positive / 4+ Antibody Screen Negative 02/10/21 02/10/21 02/10/21 17:29 17:47 23:20 WBC RBC Hgb 13.2 Hct MCV MCH MCHC RDW Plt Count MPV Neut % (Auto) Lymph % (Auto) Mitchell % (Auto) Eos % (Auto) Baso % (Auto) Neut # (Auto) Lymph # (Auto) Mitchell # (Auto) Eos # (Auto) Baso # (Auto) Nucleated RBC % (auto) Nucleated RBCs # Sodium Potassium Chloride Carbon Dioxide Anion Gap BUN Creatinine GFR Calculation Glucose Calculated Osmolality Calcium Total Bilirubin AST ALT Alkaline Phosphatase Total Protein Albumin Globulin Urine Opiates Screen Positive H Ur Barbiturates Screen Negative Ur Phencyclidine Scrn Negative Ur Amphetamines Screen Negative U Benzodiazepines Scrn Negative Urine Cocaine Screen Negative U Marijuana (THC) Screen Negative Ethyl Alcohol SARS-CoV-2 Ag (Rapid) Negative Blood Type Rho(D) Type Antibody Screen 02/11/21 02/11/21 05:20 05:20 WBC 6.4 RBC 4.00 L Hgb 12.6 Hct 38.3 L MCV 95.8 H MCH 31.5 MCHC 32.9 RDW 13.3 Plt Count 134 MPV 8.7 Neut % (Auto) 73.7 Lymph % (Auto) 17.3 Mitchell % (Auto) 7.4 Eos % (Auto) 0.9 Baso % (Auto) 0.5 Neut # (Auto) 4.68 Lymph # (Auto) 1.1 Mitchell # (Auto) 0.5 Eos # (Auto) 0.1 Baso # (Auto) 0.0 Nucleated RBC % (auto) 0 Nucleated RBCs # 0.0 Sodium 139 Potassium 4.0 Chloride 105 Carbon Dioxide 25 Anion Gap 13.0 BUN 10 Creatinine 0.6 L GFR Calculation 137.9 H Glucose 93 Calculated Osmolality 287 Calcium 8.0 L Total Bilirubin 0.7 AST 21 ALT 13 Alkaline Phosphatase 104 Total Protein 6.6 Albumin 3.6 Globulin 3.0 Urine Opiates Screen Ur Barbiturates Screen Ur Phencyclidine Scrn Ur Amphetamines Screen U Benzodiazepines Scrn Urine Cocaine Screen U Marijuana (THC) Screen Ethyl Alcohol SARS-CoV-2 Ag (Rapid) Blood Type Rho(D) Type Antibody Screen Cardiac Studies: No Data to Display
--- NOTE | 2021-02-11 07:54 | XR_ITS ---
WS: [id number] Portable AP upright chest, 02/11/2021 Clinical Data: hypoxia Comparison: Portable chest, 09/23/2020 Findings: There are interstitial changes throughout both lungs which are chronic. There is probable b asilar atelectasis on the right with a small effusion. The heart is normal. The aortic arch shows tor tuosity. The right hilum is prominent. No pneumothorax is seen. The pulmonary vascularity is not incr eased. Monitor leads are on the chest wall. XR/XR chest 1V portable [id number] Impression: 1. Chronic interstitial changes throughout both lungs. 2. Right basilar atelectasis and possible small right effusion. 3. Atherosclerosis. 4. Right hilar prominence which may indicate pulmonary hypertension.
[2021-02-11] MEDS: thiamine 100 mg Tablet PO (08:46)
[2021-02-11] MEDS: famotidine 20 mg Tablet PO ×2 (08:46→18:11)
[2021-02-11] MEDS: fluconazole 100 mg Tablet PO (08:46)
[2021-02-11] MEDS: multivitamin therapeutic Tablet 1 TAB PO (08:46)
[2021-02-11] MEDS: folic acid 1 mg Tablet PO (08:46)
--- NOTE | 2021-02-11 12:55 | W.PM.OPSUD ---
Surgery/Procedure H&P Update DATE OF PROCEDURE: February 11, 2021 DATE H&P PERFORMED: 02/11/21 PREOP DIAGNOSIS: Hematochezia PLANNED PROCEDURE: Operation Date: 02/11/21 13:15 Proposed Procedures p IM Tibial Nail Insertion(Right) - Odilon Clarke DO
--- NOTE | 2021-02-11 13:00 | PC.NURSE ---
Home meds: Sildenafil, DOvato and Opsumit brought in by family. To pharmacy for hosiptal use labeling.
--- NOTE | 2021-02-11 13:36 | PC.NURSE ---
Pt to OR. Ancef online tutor as ordered.
--- NOTE | 2021-02-11 14:12 | P.PN_ITS ---
Subjective Subjective: Interval history: He says he is doing well other than wanting to get through the surgery, and able to go home. He denies any cough, no shortness of breath. Is not producing any phlegm. Denies any chest pain. Denies any abdominal discomfort. Denies any diarrhea, no melena or hematochezia. He states he will be starting rehabilitation at [facility] on Sunday. He states he has been using the incentive spirometer. Vitals/I&O/Wt Last Vital Signs Temp 97.9 F 02/11/21 13:00 Pulse 98 02/11/21 13:28 Resp 18 02/11/21 13:00 BP 119/78 02/11/21 13:00 Pulse Ox 92 02/11/21 13:00 02/10/21 02/11/21 02/11/21 22:59 06:59 14:59 Intake Total 100 / 100 30 / 30 Output Total 250 / 250 1200 / 1200 Balance 100 / 100 -250 / -150 -1170 / -1170 Weight last 48 hrs Weight 78.471 kg Weight 77.111 kg Physical Exam Const: COMMON NORMALS: no acute distress, patient oriented x3 and alert GENERAL APPEARANCE: cooperative ORIENTATION/CONSCIOUSNESS: Yes awake HENMT: COMMON NORMALS: oropharynx normal Neck/C-Spine: COMMON NORMALS: no JVD Resp: COMMON NORMALS: normal respiratory effort and clear to auscultation bilaterally AUSCULTATION: clear to auscultation bilaterally Cardio: COMMON NORMALS: no JVD, regular rhythm, S1 normal heart sound present, S2 normal heart sound present and No murmurs present (Cardio) RHYTHM: regular rhythm HEART SOUNDS: S1 normal heart sound present and S2 normal heart sound present GI: COMMON NORMALS: Normal to inspection, nondistended, normoactive bowel sounds present, Soft to palpation and non-tender PALPATION: Yes Soft to palpation Extremity: COMMON NORMALS: no joint enlargement and no pedal edema OTHER: RLE splint. Foot appears perfused. Neuro: COMMON NORMALS: patient oriented x3 and moves all extremities SENSORIUM/ORIENTATION: Yes alert Skin: COMMON NORMALS: no rashes or lesions noted GENERAL SKIN EXAM: no rashes or lesions noted Data : 02/11/21 05:20 02/11/21 05:20 A&P Assessment and plan (1) Closed fractures involving multiple regions of right lower extremity: He is going for surgery this afternoon for fracture repair. Monitor hemoglobin. So far with minimal decrease. Pain control. Monitor oxygenation. At baseline he is on 4 L. Currently on 6 L, possibly secondary to supine positioning. Discussed with him. He is still not having any symptoms of pneumonia. Some noted mild patchy infiltrates in dependent atelectasis in lung bases. He denies any symptoms of pneumonia. Otherwise no suggestion of sepsis. Afebrile. No leukocytosis. Monitor for any changes. Encouraged I-S. Status: Acute (2) HIV (human immunodeficiency virus infection): His mother is bringing his medications with Follows with ID in [place]. Continue Dovato if his mother will be able to bring it for him. Reports 3 months ago last HIV viral load undetectable. Denies any fevers. Denies any shortness of breath. Denies any dysphagia. No diarrhea. No rash. Denies any other concerning symptoms. Apart from alcohol intoxication, fall reports has been at baseline state of health. Reports no problems during recent evaluation 3 months ago. Status: Chronic Qualifiers: HIV symptom status: asymptomatic, with no history of HIV-related illness Qualified Code(s): Z21 - Asymptomatic human immunodeficiency virus [HIV] infection status (3) Alcohol abuse: Alcohol intoxication resolved. No withdrawal. History of withdrawal. Monitor for withdrawal. Benzodiazepines per [facility] protocol. Thiamine, folic acid. Multivitamin. He will be starting rehabilitation at [facility] on Sunday. Status: Acute (4) Pulmonary hypertension: Follows with pulmonology in [place]. Continue OPSUMIT, sildenafil if his mother is able to bring it for him. Mother is bringing his medications. Status: Acute Additional A&P Information Low blood pressure in ER. Resolved. Hold diltiazem for now. Monitor. Mild colonic thickening: Denies any diarrhea. Denies any abdominal discomfort. No signs of colitis or diverticulitis at this time. Unclear significance. Monitor for any changes in condition. COPD: Not in exacerbation at the moment Atrial fibrillation History of depression Other morbidities noted Could not reach his mother for update. Attestations Medical Necessity Statement*: Continue admission for repair of tib-fib fracture after fall after alcohol intoxication and gentleman with underlying pulmonary hypertension on chronic oxygen, HIV, COPD, atrial fibrillation on chr onic anticoagulation, additional comorbidities. Coding Level of Care Code Acute Mechanical Assembly for [facility] Fwd Exam Comprehensive Diagnoses Closed fractures involving multiple regions of right lower extremity S82.91XA HIV (human immunodeficiency virus infection) Z21 HIV symptom status: asymptomatic, with no history of HIV-related illness Alcohol abuse F10.10 Pulmonary hypertension I27.20
--- NOTE | 2021-02-11 15:16 | PC.RESP ---
SMOKING CESSATION AND PULMONARY REHAB INFORMATION SENT TO PATIENT.
--- NOTE | 2021-02-11 15:18 | P.OP_ITS ---
Operative Report Date of procedure: February 11, 2021 Pre-op Diagnosis: Right tibia shaft fracture Post-op diagnosis: same Procedure Done: Right IM nail tibia Surgeon: Odilon Clarke Anesthesia: General Estimated blood loss (mL): 25 Condition: stable Disposition: PACU Procedure: Rigth IM nail tibia Patient was brought to the operative suite placed in the supine position after undergoing anesthesia. All areas impingement were well-padded. Patient was prepped and draped in normal sterile fashion. Skin incision made proximal to the patella. Quad tendon was split. The dilator was passed starting pin was inserted. Opening reamer was used. Guidewire was passed. Fracture was reduced using point to point reduction clamp. Guide wire pin was passed across the fracture. Canal was reamed to 11.5. A [employer] tibial nail was then inserted. Measured to be the appropriate length. 3 screws were placed distally though the nail 1 screws placed proximally. Wounds were irrigated and wounds were closed with Vicryl and nylon suture. Patient was placed in a posterior splint and transferred to the PACU in stable condition.
[2021-02-11] MEDS: NON-FORMULARY MEDICATION (Sildenafil (Pulm.Hypertension) 20 mg tablet) 20 EACH PO ×2 (15:58→20:22)
[2021-02-11 17:54] LABS: Coronavirus Test Green County Not Detected
--- NOTE | 2021-02-11 19:00 | PC.NURSE ---
Report given to MIRIAN Thompson.
--- NOTE | 2021-02-11 19:00 | PC.NURSE ---
Shift summary: Pt cooperative today. His highest CIWA :1, hand tremors. He has needed pain med every 4 hours , he rates his right leg pain 10, 0-10 scale. He had surgery on his right leg around 1400. He has been using oxygen at 6lpm/NC throughout the day, except for shortly after surgery when he required an oxymask at 10lpm to keep O2 sats up until he completely woke up. Pt has used the urinal 3 times today, urine putput adequate.
[2021-02-11] MEDS: mirtazapine 15 mg Tablet PO (20:22)
[2021-02-11] MEDS: trazodone 150 mg Tablet 300 MG PO (20:22)
[2021-02-12] VITALS (13 sets, daily range): BP systolic 96–114; BP diastolic 55–83; PULSE 100–124; RESP 14–21; TEMP 36.9–37; O2SAT 88–92
[2021-02-12] MEDS: morphine 4 mg/mL SDV 1 mL IVP (02:30)
[2021-02-12 05:49] LABS: Basophils % 0.6 %; Eosinophils % 0.6 %; Hematocrit 34.5 % (42.0-52.0); Hemoglobin 11.5 g/dL (11.7-16.6); Lymphocytes # 1.2 10^3/uL (0.8-4.8); Mean Corpuscular HGB Conc 33.3 g/dL (30.0-36.0); Mean Corpuscular Hemoglobin 32.4 pg (28.0-34.0); Mean Corpuscular Volume 97.2 fL (80-94); Mean Platelet Volume 9.5 fL (7.4-10.4); Monocytes # 0.6 10^3/uL (0.2-0.9); Monocytes % 10.9 %; Neutrophils # 3.26 10^3/uL (1.8-7.7); Neutrophils % 64.7 %; Nucleated Red Blood Cells % 0 %; Platelet Count 120 10^3/cmm (130-400); Red Blood Count 3.55 10^6/uL (4.1-5.3); Red Cell Distribution Width 13.1 % (12.1-15.1)
[2021-02-12 06:35] LABS: Alanine Aminotransferase 8 U/L (0-41); Albumin Level 3.3 g/dL (3.5-5.2); Alkaline Phosphatase 88 IU/L (40-130); Anion Gap 12.6 (5-19); Aspartate Amino Transferase 16 U/L (0-40); Blood Urea Nitrogen 7 mg/dL (6-20); Calcium 7.4 mg/dL (8.5-10.5); Carbon Dioxide 25 mmol/L (22-29); Chloride 102 mmol/L (98-107); Creatinine Clr Calc Pharmacy 149.1473; Globulin 2.6 g/dL (1.3-4.6); Glomerular Filtration Rate 137.9 mL/min (90-130); Glucose 106 mg/dL (65-115); Osmolality Calculated 280 mOsm/kg (285-295); Potassium 3.6 mmol/L (3.5-5.1); Sodium 136 mmol/L (136-145); Total Bilirubin 0.7 mg/dL (0.15-1.2); Total Protein 5.9 g/dL (6.6-8.7)
--- NOTE | 2021-02-12 08:13 | P.PN_ITS ---
Subjective Subjective: Interval history: pain controlled Vitals/I&O/Wt Last Vital Signs Temp 98.6 F 02/12/21 04:00 Pulse 100 02/12/21 08:01 Resp 20 H 02/12/21 08:01 BP 107/65 02/12/21 06:00 Pulse Ox 92 02/12/21 08:01 02/11/21 02/12/21 02/12/21 22:59 06:59 14:59 Intake Total 2310 / 2400 260 / 2660 Output Total 900 / 2100 500 / 2600 Balance 1410 / 300 -240 / 60 Weight last 48 hrs Weight 181 lb 12.8 oz Weight 173 lb Weight 170 lb Physical Exam Narrative: EXAM NARRATIVE: splint intact Data : 02/12/21 05:14 02/12/21 05:14 A&P Assessment and plan (1) Closed fractures involving multiple regions of right lower extremity: POD#1 Right IM nail tibia NWB RLE Status: Acute Attestations Medical Necessity Statement*: in ICU Coding Level of Care Code Acute Family Service Worker for Osmin Ordonez Diagnoses Closed fractures involving multiple regions of right lower extremity S82.91XA
[2021-02-12] MEDS: HYDROcodone-acetaminophen 5-325 mg Tablet PO (09:14)
[2021-02-12] MEDS: multivitamin therapeutic Tablet 1 TAB PO (09:15)
[2021-02-12] MEDS: nicotine 21 mg Patch 1 PATCH TRANSDERMA (09:15)
[2021-02-12] MEDS: folic acid 1 mg Tablet PO (09:16)
[2021-02-12] MEDS: famotidine 20 mg Tablet PO (09:16)
[2021-02-12] MEDS: thiamine 100 mg Tablet PO (09:16)
[2021-02-12] MEDS: fluconazole 100 mg Tablet PO (09:16)
[2021-02-12] MEDS: NON-FORMULARY MEDICATION (Sildenafil (Pulm.Hypertension) 20 mg tablet) 20 EACH PO (09:16)
[2021-02-12] MEDS: MACITENTAN 10 MG 10 EACH PO (09:17)
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
--- NOTE | 2021-02-12 11:35 | PC.NURSE ---
PT noted to be with pt. Crutch instruction noted.
--- NOTE | 2021-02-12 11:41 | PC.NURSE ---
marketing services rep/case management, Batsheva, notified of mother's request for transport for pt at time of discharge. Pt to be discharged with walker.
--- NOTE | 2021-02-12 12:41 | PC.NURSE ---
Pt discharged home in POV, with his portable O2 , crutches and personal belonings. Pt stated he had a walker at home for his use. Discharge instructions discussed prior, CBC in 3 days, Pt to make follow up appts with his primary care 4-7 days and, with Dr Clarke in 2weeks, as today is aday, RLE restrictions, abstaining from alcohol. Pt declined to go over [place] provided. After discharge signed, pt stated his pharmacy was closed since it is after noon. This nurse called [facility] verified they are open until 1400, pharmacy personnel needed a prior authorization for pain med to verifly pt to have narcotic. Dr Richards notified and given pharmacy #.
== END 2021-02-12 12:45 | disposition home or self-care (01) | DRG 493 ==
LOC: ER 17:13 → ICU 17:34
PROVIDERS: Orthopaedic Surgery; Admitting Provider Internal Medicine; Emergency Provider Family Medicine; PCP Family Medicine; Visit Provider Internal Medicine
PROC: 0QSG06Z Reposition Right Tibia with Intramedullary Internal Fixation Device, Open Approach (ICD-10-PCS; principal; 2021-02-11 13:05)
DX: S82.301A Unspecified fracture of lower end of right tibia, initial encounter for closed fracture (principal); B20 Human immunodeficiency virus [HIV] disease; S82.831A Other fracture of upper and lower end of right fibula, initial encounter for closed fracture; W19.XXXA Unspecified fall, initial encounter; F10.129 Alcohol abuse with intoxication, unspecified; J44.9 Chronic obstructive pulmonary disease, unspecified; Z99.81 Dependence on supplemental oxygen; I48.91 Unspecified atrial fibrillation; I95.9 Hypotension, unspecified; F32.9 Major depressive disorder, single episode, unspecified; Z87.11 Personal history of peptic ulcer disease; Z85.72 Personal history of non-Hodgkin lymphomas; Z86.718 Personal history of other venous thrombosis and embolism; F17.210 Nicotine dependence, cigarettes, uncomplicated; I27.20 Pulmonary hypertension, unspecified; K57.30 Diverticulosis of large intestine without perforation or abscess without bleeding; Z79.01 Long term (current) use of anticoagulants; Z79.51 Long term (current) use of inhaled steroids
CPT/HCPCS: 29515; 36415; 70450; 71045; 71260; 73590; 74177; 76000; 80053; 80306; 80307; 85018; 85025; 86850; 86900; 87426; 87635; 94664; 96365; 96372; 96375; 96376; 97161; 97165; 97530; 99285; A4590; C1713; J0690; J1170; J2270; J2405; J2704; J3010; J3411; J3490; Q9967

== ENCOUNTER 2021-02-15 08:41 | Outpatient (CLI) | payer MEDICARE, MEDICAID, SELFPAY ==
[2021-02-15 09:16] LABS: Basophils # 0.1 10^3/uL (0.0-0.1); Basophils % 1.3 %; Eosinophils # 0.2 10^3/uL (0.0-0.8); Eosinophils % 3.5 %; Hematocrit 34.6 % (42.0-52.0); Hemoglobin 11.6 g/dL (11.7-16.6); Lymphocytes # 1.4 10^3/uL (0.8-4.8); Lymphocytes % 29.4 %; Mean Corpuscular HGB Conc 33.5 g/dL (30.0-36.0); Mean Corpuscular Hemoglobin 31.7 pg (28.0-34.0); Mean Corpuscular Volume 94.5 fL (80-94); Mean Platelet Volume 9.1 fL (7.4-10.4); Monocytes # 0.4 10^3/uL (0.2-0.9); Monocytes % 9.3 %; Neutrophils # 2.61 10^3/uL (1.8-7.7); Neutrophils % 56.3 %; Nucleated Red Blood Cells % 0 %; Platelet Count 193 10^3/cmm (130-400); Red Blood Count 3.66 10^6/uL (4.1-5.3); Red Cell Distribution Width 13.2 % (12.1-15.1); White Blood Count 4.6 10^3/uL (4.0-10.0)
== END 2021-02-15 08:42 | disposition home or self-care (01) ==
LOC: LAB 08:47
PROVIDERS: PCP Family Medicine; Visit Provider Internal Medicine
DX: D64.9 Anemia, unspecified (principal)
CPT/HCPCS: 36415; 85025

== ENCOUNTER 2021-02-24 14:16 | Outpatient (CLI) | payer MEDICARE, MEDICAID, SELFPAY | END 2021-02-24 14:17 | disposition home or self-care (01) | LOC: SPT 14:17 | PROVIDERS: PCP Family Medicine; Visit Provider Orthopaedic Surgery | DX: Z47.89 Encounter for other orthopedic aftercare (principal) | CPT/HCPCS: 97760; L4361 ==

== ENCOUNTER 2021-03-12 10:15 | Inpatient (IN) | payer MEDICARE, MEDICAID, SELFPAY ==
[2021-03-12] VITALS (8 sets, daily range): BP systolic 87–112; BP diastolic 56–72; PULSE 89–109; RESP 14–26; TEMP 36.8–36.9; O2SAT 94–99; BMI 23.7
--- NOTE | 2021-03-12 10:27 | XRR_ITS ---
PROCEDURE INFORMATION: Exam: XR Chest Exam date and time: 03/12/2021 10:27 AM Age: 60 years old Clinical indication: Cough and dyspnea; Additional info: Cough/dyspnea TECHNIQUE: Imaging protocol: XR of the chest. Views: 1 view. COMPARISON: 1. CR XR chest 1V portable [id number] 02/11/2021 8:[address] chest abd pel w con* 02/10/2021 4:09:36 PM FINDINGS: Lungs: There are again diffusely prominent interstitial markings on a background of emphysema. No focal consolidation. New blunting of the left lateral costophrenic angle suspected to reflect small effusion. Right costophrenic angle sharp. No consolidation. No visible pneumothorax. Pleural spaces: See Lungs finding. Heart/Mediastinum: Cardiac silhouette mildly enlarged. Unchanged bilateral hilar prominence likely related to pulmonary arteries. Bones/joints: Unremarkable. XR/XR chest 1V portable [id number] IMPRESSION: 1. Nonspecific diffusely increased interstitial markings similar to prior, on background of emphysema. New blunting of the left lateral costophrenic angle likely reflects a small effusion. No focal consolidation appreciated. 2. Cardiac silhouette mildly enlarged.
--- NOTE | 2021-03-12 10:45 | ED_ITS ---
HPI - Psych General: Chief Complaint: Psychiatric Symptoms Stated Complaint: SI; ETOH Time Seen by Provider: 03/12/21 10:16 History of Present Illness: HPI Narrative: 60-year-old male presents emergency room acutely intoxicated having made several suicidal complaints. There are affidavits available he also made suicidal ideation remarks to the EMS crew. He denies suicidal ideation to me. Patient has a history of HIV he is highly intoxicated at this time. Patient is chronically on oxygen due to his HIV. MD complaint: suicidal ideation Onset (ago): unknown History of same: Yes Relieving factors: none Exacerbating factors: none Context: recent alcohol abuse Associated psychiatric symptoms: depression and suicidal ideation Associated symptoms: Reports suicidal ideation Treatments prior to arrival: none If self harm: admits thoughts of self harm Review of Systems General: Reports: ROS unobtainable due to mental status Psych: Reports: suicidal ideation [facility] ED PFSH: Medical History Alcohol use disorder Anorexia Atrial fibrillation Closed fractures involving multiple regions of right lower extremity Colon polyps COPD (chronic obstructive pulmonary disease) Severe COPD Deliberate medication overdose Depression Depressive disorder Diverticulitis / Diverticulosis GI bleed Was taken off Coumadin for a month in 2015 after a bleeding gastric ulcer, currently on Eliquis History of peptic ulcer disease HIV (human immunodeficiency virus infection) Hypogonadism Liver tumor Lymphoma 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 No evidence of recurrence, currently getting [employer] prophylaxis with intrathecal methotrexate with prophylactic radiation to right testicle, CHOP treatment Major depressive disorder Meningitis Orchialgia Posttraumatic stress disorder Pulmonary embolism DVT of right leg, 2009 Pulmonary hypertension After PE Suicide attempt Surgical History H/O colonoscopy 2001 -diverticulosis, colon polyps / 2005 -diverticulosis, small telangiectasia / 01/2016 -diverticulosis with intrinsic stenosis and sigmoid H/O esophagogastroduodenoscopy 2005 -reflux esophagitis, superficial gastric erosions with hemorrhagic gastritis, duodenitis /2008 -reflux esophagitis, gastritis, small chronic gastric ulcer H/O hemorrhoidectomy History of orchiectomy, unilateral L -- diffuse large B-cell lymphoma Family History Other No pertinent family history Social History Smoking and tobacco status: current every day smoker cigarettes Packs smoked per day: 2 Alcohol intake: current Lives independently: Yes Housing: House Physical Exam HENMT: COMMON NORMALS: normocephalic and atraumatic HEAD & SCALP: normocephalic and atraumatic Neck/C-Spine: COMMON NORMALS: no JVD Resp: COMMON NORMALS: normal respiratory effort, No retractions, No use of accessory muscles and clear to auscultation bilaterally AUSCULTATION: clear to auscultation bilaterally Cardio: COMMON NORMALS: no JVD, regular rate, regular rhythm and No murmurs present (Cardio) RATE: regular rate RHYTHM: regular rhythm GI: COMMON NORMALS: Soft to palpation and No hepatosplenomegaly present AUSCULTATION: Yes normoactive bowel sounds PALPATION: Yes Soft to palpation, No Tenderness to palpation present (GI), No Guarding due to palpation present (GI) and Yes No hepatosplenomegaly present Extremity: COMMON NORMALS: normal to inspection, capillary refill normal, no clubbing, cyanosis or edema, no calf tenderness and no pedal edema Course Vital Signs: Vital signs: Vital Signs Pulse Rate 98 03/12/21 15:15 Respiratory Rate 26 H 03/12/21 15:27 Blood Pressure 112/65 03/12/21 15:15 Pulse Oximetry 94 03/12/21 15:15 MDM - Psych MDM Narrative: Medical decision making narrative: Patient severely intoxicated. Discussed Dr. Bang will admit to medicine suicidal ideation under 96-hour hold he will need to remain in the ER for a time until he is more coherent and ambulatory. Patient was monitored for a time he did become quite anxious and had to be redirected back to his bed. Ultimately complied blood pressure had some transient decreases he was given IV fluids and that resolved. Patient is awake alert talking he and eating now. He is oriented. He is able to ambulate to and from the bathroom on his own despite the fact he has a fracture on his left foot and still has a cam walker on it. We will go ahead and discharge him from the ER admit him to this neuropsychiatric unit. Lab Data: Labs: Lab Results 03/12/21 03/12/21 Range/Units 10:40 10:40 WBC 5.6 (4.0-10.0) 10^3/ uL RBC 4.20 (4.1-5.3) 10^6/u L Hgb 13.2 (11.7-16.6) g/dL Hct 39.5 L (42.0-52.0) % MCV 94.0 (80-94) fl MCH 31.4 (28.0-34.0) pg MCHC 33.4 (30.0-36.0) g/dL RDW 13.6 (12.1-15.1) % Plt Count 174 (130-400) 10^3/c mm MPV 8.7 (7.4-10.4) fL Neut % (Auto) 46.8 % Lymph % (Auto) 41.2 % [place] % (Auto) 8.6 % Eos % (Auto) 2.3 % Baso % (Auto) 1.1 % Neut # (Auto) 2.63 (1.8-7.7) 10^3/u L Lymph # (Auto) 2.3 (0.8-4.8) 10^3/u L [place] # (Auto) 0.5 (0.2-0.9) 10^3/u L Eos # (Auto) 0.1 (0.0-0.8) 10^3/u L Baso # (Auto) 0.1 (0.0-0.1) 10^3/u L Nucleated RBC % (a uto) 0 % Nucleated RBCs # 0.0 /100WBC Sodium 140 (136-145) mmol/L Potassium 3.0 L (3.5-5.1) mmol/L Chloride 102 (98-107) mmol/L Carbon Dioxide 23 (22-29) mmol/L Anion Gap 18.0 (5-19) BUN 3 L (6-20) mg/dL Creatinine 0.5 L (0.7-1.2) mg/dL GFR Calculation 170.2 H (90-130) mL/min Glucose 115 (65-115) mg/dL Calculated Osmolal ity 287 (285-295) mOsm/k g Calcium 8.1 L (8.5-10.5) mg/dL Total Bilirubin 0.3 (0.15-1.2) mg/dL AST 20 (0-40) U/L ALT 11 (0-41) U/L Alkaline Phosphata se 143 H (40-130) IU/L Total Protein 7.1 (6.6-8.7) g/dL Albumin 3.7 (3.5-5.2) g/dL Globulin 3.4 (1.3-4.6) g/dL Salicylates < 0.3 L (3-10) mg/dL Acetaminophen < 5.0 L (10-30) ug/mL Ethyl Alcohol 393 H* (0-10) mg/dL Discharge Plan Discharge Patient Disposition: Admitted As Inpatient Admit Provider: Niko Bang Clinical Impression: Suicidal ideation, Acute alcohol intoxication, Alcoholism Condition: Stable Coding Level of Care Code ED Manager Of Maintenance for Osmin [facility] Exam Detailed
[2021-03-12 10:47] LABS: Basophils # 0.1 10^3/uL (0.0-0.1); Basophils % 1.1 %; Eosinophils # 0.1 10^3/uL (0.0-0.8); Eosinophils % 2.3 %; Hematocrit 39.5 % (42.0-52.0); Hemoglobin 13.2 g/dL (11.7-16.6); Lymphocytes # 2.3 10^3/uL (0.8-4.8); Lymphocytes % 41.2 %; Mean Corpuscular HGB Conc 33.4 g/dL (30.0-36.0); Mean Corpuscular Hemoglobin 31.4 pg (28.0-34.0); Mean Platelet Volume 8.7 fL (7.4-10.4); Monocytes # 0.5 10^3/uL (0.2-0.9); Monocytes % 8.6 %; Neutrophils # 2.63 10^3/uL (1.8-7.7); Neutrophils % 46.8 %; Nucleated Red Blood Cells % 0 %; Platelet Count 174 10^3/cmm (130-400); Red Cell Distribution Width 13.6 % (12.1-15.1); White Blood Count 5.6 10^3/uL (4.0-10.0)
[2021-03-12 11:22] LABS: Alanine Aminotransferase 11 U/L (0-41); Albumin Level 3.7 g/dL (3.5-5.2); Alkaline Phosphatase 143 IU/L (40-130); Aspartate Amino Transferase 20 U/L (0-40); Blood Urea Nitrogen 3 mg/dL (6-20); Calcium 8.1 mg/dL (8.5-10.5); Carbon Dioxide 23 mmol/L (22-29); Chloride 102 mmol/L (98-107); Globulin 3.4 g/dL (1.3-4.6); Glomerular Filtration Rate 170.2 mL/min (90-130); Glucose 115 mg/dL (65-115); Osmolality Calculated 287 mOsm/kg (285-295); Sodium 140 mmol/L (136-145); Total Bilirubin 0.3 mg/dL (0.15-1.2); Total Protein 7.1 g/dL (6.6-8.7)
[2021-03-12 11:39] LABS: Acetaminophen < 5.0 ug/mL (10-30); Salicylate < 0.3 mg/dL (3-10)
[2021-03-12 11:40] LABS: Alcohol Level 393 mg/dL (0-10)
[2021-03-12] MEDS: sodium chloride 0.9% 1,000 ML 999 ML IV ×2 (14:08→14:14)
[2021-03-12] MEDS: ondansetron 2 mg/ML SDV 2 mL 4 MG IVP (14:10)
[2021-03-12] MEDS: LORazepam 2 mg/mL INJ 1 mL 1 MG IM (14:19)
[2021-03-13 06:00] VITALS: BP 121/74; PULSE 87; RESP 19; TEMP 37.7; O2SAT 95
[2021-03-13] MEDS: thiamine 100 mg Tablet PO (09:01)
[2021-03-13] MEDS: folic acid 1 mg Tablet PO (09:01)
[2021-03-13] MEDS: multivitamin therapeutic Tablet 1 TAB PO (09:01)
--- NOTE | 2021-03-13 09:55 | PM.NHP ---
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 06/29/20 03/12/21 11/25/20 Rx fluconazole 100 mg PO DAILY 06/29/20 03/12/21 11/25/20 History multivitamin 1 tab PO DAILY 06/29/20 03/12/21 11/25/20 History acetaminophen [Tylenol Extra 500 - 1,000 mg PO PRN 09/21/20 03/12/21 11/25/20 History Strength] folic acid 1 mg PO DAILY 09/21/20 03/12/21 03/11/21 History mirtazapine 15 mg PO BEDTIME 02/10/21 03/12/21 03/11/21 History potassium chloride 20 meq PO BID 02/10/21 03/12/21 Unknown History testosterone 2 pump TOPICAL QAM 02/10/21 03/12/21 Unknown History trazodone 300 mg PO BEDTIME 02/10/21 03/12/21 Unknown History nicotine 1 patch TRANSDERMAL DAILY #30 ea 02/12/21 03/12/21 Unknown Rx nicotine (polacrilex) 2 mg BUCCAL Q2H PRN #60 ea 02/12/21 03/12/21 Unknown Rx thiamine mononitrate (vit B1) 100 mg PO DAILY #30 tab 02/12/21 03/12/21 Unknown Rx [Vitamin B-1 (mononitrate)] Cam Walker #1 ea 02/24/21 03/12/21 Unknown Rx hydrocodone 5 mg-acetaminophen 325 1 tab PO Q4H PRN 7 Days #30 tab 02/24/21 03/12/21 Unknown Rx mg tablet diltiazem HCl 240 mg capsule,24 240 mg PO DAILY #30 cap 03/08/21 03/12/21 Unknown Rx hr,extended release Allergies Allergy/AdvReac Type Severity Reaction Status Date / Time No Known Allergies Allergy Verified 02/24/21 13:12 PFSH NPU PFSH: Medical History Alcohol use disorder Anorexia Atrial fibrillation Closed fractures involving multiple regions of right lower extremity Colon polyps COPD (chronic obstructive pulmonary disease) Severe COPD Deliberate medication overdose Depression Depressive disorder Diverticulitis / Diverticulosis GI bleed Was taken off Coumadin for a month in 2015 after a bleeding gastric ulcer, currently on Eliquis History of peptic ulcer disease HIV (human immunodeficiency virus infection) Hypogonadism Liver tumor Lymphoma 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 No evidence of recurrence, currently getting MERCHANDISING MANAGER prophylaxis with intrathecal methotrexate with prophylactic radiation to right testicle, CHOP treatment Major depressive disorder Meningitis Orchialgia Posttraumatic stress disorder Pulmonary embolism DVT of right leg, 2009 Pulmonary hypertension After PE Suicide attempt Surgical History H/O colonoscopy 2001 -diverticulosis, colon polyps / 2005 -diverticulosis, small telangiectasia / 01/2016 -diverticulosis with intrinsic stenosis and sigmoid H/O esophagogastroduodenoscopy 2005 -reflux esophagitis, superficial gastric erosions with hemorrhagic gastritis, duodenitis /2008 -reflux esophagitis, gastritis, small chronic gastric ulcer H/O hemorrhoidectomy History of orchiectomy, unilateral L -- diffuse large B-cell lymphoma Family History Other No pertinent family history Social History Smoking and tobacco status: current every day smoker cigarettes Packs smoked per day: 2 Alcohol intake: current Lives independently: Yes Housing: House Mental Status Exam MSE Comments: This is a slender white male in hospital scrubs with limited grooming and adequate eye contact. No abnormal movement except for psychomotor retardation. Cooperative with exam in mild distress. Speech was decreased rate and volume. Mood described as better than yesterday, affect subdued. Thought process organized. Thought content: Patient denied suicidal or homicidal ideation, there were no delusions reported or noted, he denies any auditory visual hallucinations. Attention and concentration were limited and memory was unreliable but none were formally tested. He is alert and oriented x3. Insight and judgment are impaired and impulse control is impaired. Vitals/I&O/Wt Last Vital Signs Temp 99.8 F H 03/13/21 06:00 Pulse 87 03/13/21 06:00 Resp 19 H 03/13/21 06:00 BP 121/74 03/13/21 06:00 Pulse Ox 95 03/13/21 06:00 Weight last 48 hrs Weight 79.379 kg Weight 79.379 kg Weight 79.379 kg Data NPU : 03/12/21 10:40 03/12/21 10:40 Micro: Microbiology 03/12/21 14:04 Blood Culture - Preliminary Blood SPECIMEN COLLECTED 03/12/21 14:14 Blood Culture - Preliminary Blood SPECIMEN COLLECTED Microbiology 03/12/21 14:04 Blood Blood Culture - Preliminary SPECIMEN COLLECTED 03/12/21 14:14 Blood Blood Culture - Preliminary SPECIMEN COLLECTED A&P Assessment and plan (1) Suicidal ideation: Status: Acute (2) Acute alcohol intoxication: Status: Acute (3) Alcohol withdrawal: Status: Acute (4) Anemia: Status: Acute (5) Alcohol dependence: Status: Acute Additional A&P Information This is a 60-year-old white male with a long history of alcohol dependence, HIV, major depression with frequent hospitalizations with ICU stays and inpatient psychiatric treatment who presents with a 96-hour hold after conflict with a sister while he was intoxicated who presents as usual stating that he is not suicidal and wants to leave as soon as possible but endorses being open to some medication changes.. 1. Continue current medication. We will obtain naltrexone and identify his oral tolerance with the plan of getting him Vivitrol as soon as possible. We also discussed Antabuse/disulfiram which would be a possible next intervention. 2. Continue every 15 minute checks for safety. 3. Encourage individual, group and milieu therapies. 4. Encourage sober living treatment after discharge in the inpatient program. He continues to be resistant to this and we will explore the obstacles to getting a court ordered inpatient rehab of an extended variety 90 days to 1 year. Involuntary Hold Information 96 Hour Hold: 96 Hour Involuntary Admission: Yes 96 Hour Hold Ending Date: 03/18/21 96 Hour Hold Ending Time: 12:05 Attestations NPU Medical Necessity Statement*: Inpatient hospitalization is medically necessary and the clinically appropriate intervention at this time. We will monitor medications and make changes as indicated. Patient will be in the hospital for over two midnights. Likely length of stay 3 to 5 days. Coding Level of Care Code Acute Chain Carrier for Osmin Fwd Diagnoses Suicidal ideation R45.851 Acute alcohol intoxication F10.929 Alcohol withdrawal F10.239 Anemia D64.9 Alcohol dependence F10.20
[2021-03-13 12:32] LABS: Urine Color Yellow (Yellow)
[2021-03-13 12:33] LABS: Add Urine Microscopic? YES; Bilirubin Urine Neg (Negative); Blood Urine Neg (Negative); Glucose Urine UA Norm (Normal); Ketones Urine Negative (Negative); Leukocyte Esterase Urine Negative (Negative); Nitrate Urine Negative (Negative); Protein Urine Neg (Negative); Specific Gravity, Urine 1.015 (1.005-1.030); Sulfosalicylic Acid Urine Negative (Negative); Urine Appearance SL Hazy (CLEAR); Urobilinogen Urine Norm (Negative); pH Urine 8 (5-7)
[2021-03-13 12:34] LABS: Amorphous Sediment Urine 2+ /hpf; Squamous Epithelial Cell Urine RARE /hpf (0-5)
[2021-03-13 12:35] LABS: Add Urine Culture? No
[2021-03-13 12:36] LABS: Amphetamines Screen Urine Negative (Negative); Barbiturates Screen Urine Negative (Negative); Benzodiazepines Screen Urine Negative (Negative); Cocaine Screen Urine Negative (Negative); Opiate Screen Urine Negative (Negative); PCP Screen Urine Negative (Negative); THC Screen Urine Negative (Negative)
[2021-03-13 12:42] VITALS: BP 113/66; PULSE 94; RESP 16; TEMP 37.8; O2SAT 92
[2021-03-13] MEDS: nicotine 21 mg Patch 1 PATCH TRANSDERMA (13:07)
[2021-03-13 14:00] VITALS: BP 113/66; PULSE 94; RESP 16; TEMP 37.8; O2SAT 92
[2021-03-13] MEDS: loperamide 2 mg Capsule PO (17:22)
[2021-03-13 20:37] VITALS: BP 115/77; PULSE 88; RESP 21; TEMP 37.2; O2SAT 93
[2021-03-13] MEDS: trazodone 50 mg Tablet PO (22:40)
[2021-03-13] MEDS: acetaminophen 325 mg Tablet 650 MG PO (22:40)
[2021-03-13] MEDS: hyDROXYzine 25 mg Capsule 50 MG PO (22:40)
[2021-03-14 06:00] VITALS: BP 126/91; PULSE 80; RESP 18; TEMP 37.2; O2SAT 99
[2021-03-14 09:12] VITALS: PULSE 87; O2SAT 99
[2021-03-14] MEDS: multivitamin therapeutic Tablet 1 TAB PO (09:49)
[2021-03-14] MEDS: thiamine 100 mg Tablet PO (09:49)
[2021-03-14] MEDS: folic acid 1 mg Tablet PO (09:49)
--- NOTE | 2021-03-14 12:02 | P.PN_ITS ---
Subjective NPU Subjective: Interval history: Flakito presents today presenting as he generally does endorsing that he is feeling better now that he is sober. He reports that he does have some lingering depression related to his circumstances and not being able to discontinue his drinking. We continue to talk about his baseline issue with self-loathing. He continued to endorse being open to the naltrexone but was not really wanting to try an antidepressant but we discussed the treatment team's position that he should consider something for depression. Mental Status Exam MSE Comments: This is a slender white male in hospital scrubs with limited grooming and adequate eye contact. The nasal cannula and. No abnormal movement except for psychomotor retardation. Cooperative with exam in mild distress. Speech was decreased rate and volume. Mood described as a little down, affect subdued. Thought process organized. Thought content: Patient denied suicidal or homicidal ideation, there were no delusions reported or noted, he denies any auditory visual hallucinations. Attention and concentration were limited and memory was unreliable but none were formally tested. He is alert and oriented x3. Insight and judgment are impaired and impulse control is impaired. Vitals/I&O/Wt Last Vital Signs Temp 99.0 F 03/14/21 06:00 Pulse 87 03/14/21 09:12 Resp 18 03/14/21 06:00 BP 126/91 03/14/21 06:00 Pulse Ox 99 03/14/21 09:12 Weight last 48 hrs Weight 79.379 kg Weight 79.379 kg Data NPU : 03/12/21 10:40 03/12/21 10:40 Micro: Microbiology 03/12/21 14:04 Blood Culture - Preliminary Blood NEGATIVE TO DATE 03/12/21 14:14 Blood Culture - Preliminary Blood NEGATIVE TO DATE Microbiology 03/12/21 14:04 Blood Blood Culture - Preliminary NEGATIVE TO DATE 03/12/21 14:14 Blood Blood Culture - Preliminary NEGATIVE TO DATE A&P Assessment and plan (1) Major depressive disorder, recurrent: Status: Acute (2) Alcohol dependence: Status: Acute (3) Alcohol withdrawal: Status: Acute (4) Suicidal ideation: Status: Acute (5) Acute alcohol intoxication: Status: Acute (6) Anemia: Status: Acute Additional A&P Information (1) Suicidal ideation: (2) Acute alcohol intoxication: (3) Alcohol withdrawal: (4) Anemia: (5) Alcohol dependence: Additional A&P Information This is a 60-year-old white male with a long history of alcohol dependence, HIV, major depression with frequent hospitalizations with ICU stays and inpatient psychiatric treatment who presents with a 96-hour hold after conflict with a sister while he was intoxicated who presents as usual stating that he is not suicidal and wants to leave as soon as possible but endorses being open to some medication changes.. 1. Continue current medication. Working on getting naltrexone to initiate first dose. 2. Continue every 15 minute checks for safety. 3. Encourage individual, group and milieu therapies. 4. Encourage sober living treatment after discharge in the inpatient program. He continues to be resistant to this and we will explore the obstacles to getting a court ordered inpatient rehab of an extended variety 90 days to 1 year. Involuntary Hold Information 96 Hour Hold: 96 Hour Involuntary Admission: Yes 96 Hour Hold Ending Date: 03/18/21 96 Hour Hold Ending Time: 12:05 Attestations NPU Medical Necessity Statement*: Inpatient hospitalization is medically necessary and the clinically appropriate intervention at this time. We will monitor med ications and make changes as indicated. Patient will be in the hospital for over two midnights. Likely length of stay 1-3 days. Coding Level of Care Code Acute [employer]a Integration Developer for Osmin Ordonez Diagnoses Major depressive disorder, recurrent F33.9 Alcohol dependence F10.20 Alcohol withdrawal F10.239 Suicidal ideation R45.851 Acute alcohol intoxication F10.929 Anemia D64.9
[2021-03-14] MEDS: acetaminophen 325 mg Tablet 650 MG PO ×2 (13:36→17:30)
[2021-03-14 13:56] VITALS: BP 102/66; PULSE 93; RESP 16; TEMP 37.3; O2SAT 94
[2021-03-14] MEDS: hyDROXYzine 25 mg Capsule 50 MG PO ×2 (14:58→20:07)
--- NOTE | 2021-03-14 15:00 | PC.NURSE ---
Patient at nurses station requesting something for anxiety. Patient stated that he wanted Ativan. Patient was educated that patient could have Vistaril.
[2021-03-14] MEDS: nicotine 21 mg Patch 1 PATCH TRANSDERMA (17:31)
[2021-03-14 19:51] VITALS: BP 109/77; PULSE 94; RESP 19; TEMP 37; O2SAT 95
[2021-03-14] MEDS: trazodone 50 mg Tablet PO (20:07)
[2021-03-14] MEDS: apixaban 5 mg Tablet PO (20:18)
--- NOTE | 2021-03-14 20:20 | PC.NURSE ---
Trazodone 50mg PO, Vistaril 50mgPO given for sleep and anxiety
[2021-03-14] MEDS: ibuprofen 600 mg Tablet PO (20:38)
[2021-03-15 06:00] VITALS: BP 109/76; PULSE 92; RESP 17; TEMP 36.6; O2SAT 94
[2021-03-15] MEDS: multivitamin therapeutic Tablet 1 TAB PO (09:02)
[2021-03-15] MEDS: folic acid 1 mg Tablet PO (09:02)
[2021-03-15] MEDS: thiamine 100 mg Tablet PO (09:02)
[2021-03-15] MEDS: hyDROXYzine 25 mg Capsule 50 MG PO ×2 (09:02→23:02)
[2021-03-15] MEDS: ibuprofen 600 mg Tablet PO ×3 (09:02→23:02)
[2021-03-15] MEDS: apixaban 5 mg Tablet PO ×2 (09:03→17:27)
--- NOTE | 2021-03-15 09:08 | PC.NURSE ---
Addendum entered by Luis Henry RN 03/15/21 10:58: PRN VISTARIL FOLLOW UP FOR 1000 PRN MEDICATION EFFECTIVE. PT VOICES TO FURTHER C/O ANXIETY AT THIS TIME. Original Note: PRN VISTARIL PRN VISTARIL 50 MG GIVEN PO PER PT C/O ANXIETY. WILL CONTINUE TO MONITOR FOR MEDICATION EFFECTIVENESS.
[2021-03-15 09:11] VITALS: PULSE 95; O2SAT 97
--- NOTE | 2021-03-15 10:48 | P.PN_ITS ---
Subjective NPU Subjective: Interval history: Flakito presented today reporting that he continues to be really eager for discharge. We are able to review concerns about some narcotic he was prescribed but he endorsed that he was only taking that pain medication for the right lower leg fracture and is no longer taking it and has not taken it for some time. We ordered the naltrexone for him to start today and discussed the possibility for discharge in the next 48 hours. Mental Status Exam MSE Comments: This is a slender white male in hospital scrubs with limited grooming and adequate eye contact. The nasal cannula in. No abnormal movement except for psychomotor retardation. Cooperative with exam in no acute distress. Speech was decreased rate and volume. Mood described as better, affect aponte bdued. Thought process organized. Thought content: Patient denied suicidal or homicidal ideation, there were no delusions reported or noted, he denies any auditory visual hallucinations. Attention and concentration were limited and memory was unreliable but none were formally tested. He is alert and oriented x3. Insight and judgment are limited, but improving and impulse control is limited. Vitals/I&O/Wt Last Vital Signs Temp 97.8 F 03/15/21 06:00 Pulse 95 03/15/21 09:11 Resp 17 03/15/21 06:00 BP 109/76 03/15/21 06:00 Pulse Ox 97 03/15/21 09:11 Data NPU : 03/12/21 10:40 03/12/21 10:40 A&P Additional A&P Information (1) Major depressive disorder, recurrent: (2) Alcohol dependence: (3) Alcohol withdrawal: (4) Suicidal ideation: (5) Acute alcohol intoxication: (6) Anemia: This is a 60-year-old white male with a long history of alcohol dependence, HIV, major depression with frequent hospitalizations with ICU stays and inpatient psychiatric treatment who presents with a 96-hour hold after conflict with a sister while he was intoxicated who presents as usual stating that he is not suicidal and wants to leave as soon as possible but endorses being open to some medication changes.. 1. Continue current medication. Started on naltrexone 50 mg p.o. daily with a goal to change to the injection after discharge. 2. Continue every 15 minute checks for safety. 3. Encourage individual, group and milieu therapies. 4. Encourage sober living treatment after discharge in the inpatient program. He continues to be resistant to this and we will explore the obstacles to getting a court ordered inpatient rehab of an extended variety 90 days to 1 year. Involuntary Hold Information 96 Hour Hold: 96 Hour Involuntary Admission: Yes 96 Hour Hold Ending Date: 03/18/21 96 Hour Hold Ending Time: 12:05 Attestations NPU Medical Necessity Statement*: Inpatient hospitalization is medically necessary and the clinically appropriate intervention at this time. We will monitor medications and make changes as indicated. Patient will be in the hospital for over two midnights. Likely length of stay 1-3 days. Coding Level of Care Code Acute Commercial Electrician for Osmin Ordonez
[2021-03-15] MEDS: nicotine 21 mg Patch 1 PATCH TRANSDERMA (11:35)
[2021-03-15] MEDS: naltrexone hcl 50 mg Tablet PO (11:35)
[2021-03-15 11:44] LABS: Basophils % 0.7 %; Eosinophils # 0.1 10^3/uL (0.0-0.8); Eosinophils % 1.5 %; Hematocrit 41.3 % (42.0-52.0); Hemoglobin 13.1 g/dL (11.7-16.6); Lymphocytes # 1.4 10^3/uL (0.8-4.8); Lymphocytes % 23.7 %; Mean Corpuscular HGB Conc 31.7 g/dL (30.0-36.0); Mean Corpuscular Volume 97.6 fl (80-94); Mean Platelet Volume 9.5 fL (7.4-10.4); Monocytes # 0.5 10^3/uL (0.2-0.9); Monocytes % 8.3 %; Neutrophils # 3.88 10^3/uL (1.8-7.7); Neutrophils % 65.6 %; Nucleated Red Blood Cells % 0 %; Platelet Count 174 10^3/cmm (130-400); Red Blood Count 4.23 10^6/uL (4.1-5.3); Red Cell Distribution Width 13.7 % (12.1-15.1); White Blood Count 5.9 10^3/uL (4.0-10.0)
[2021-03-15 12:09] LABS: Alanine Aminotransferase 8 U/L (0-41); Albumin Level 3.8 g/dL (3.5-5.2); Alkaline Phosphatase 135 IU/L (40-130); Aspartate Amino Transferase 17 U/L (0-40); Blood Urea Nitrogen 11 mg/dL (6-20); Calcium 9.1 mg/dL (8.5-10.5); Carbon Dioxide 25 mmol/L (22-29); Chloride 103 mmol/L (98-107); Globulin 3.1 g/dL (1.3-4.6); Glomerular Filtration Rate 137.9 mL/min (90-130); Glucose 91 mg/dL (65-115); Osmolality Calculated 287 mOsm/kg (285-295); Sodium 139 mmol/L (136-145); Total Bilirubin 0.5 mg/dL (0.15-1.2); Total Protein 6.9 g/dL (6.6-8.7)
--- NOTE | 2021-03-15 12:10 | NPU.GN ---
[facility] Topic:2 true one false General Mood of Group: Patient did not attend group today, had a wound on his foot from wearing his boot.
[2021-03-15 12:27] LABS: Anion Gap 15.3 (5-19); Potassium 4.3 mmol/L (3.5-5.1)
[2021-03-15 14:00] VITALS: BP 119/78; PULSE 92; RESP 20; TEMP 36.7; O2SAT 94
[2021-03-15 21:22] VITALS: BP 123/81; PULSE 82; RESP 16; TEMP 36.9; O2SAT 92
[2021-03-15] MEDS: trazodone 50 mg Tablet PO (23:03)
--- NOTE | 2021-03-16 05:54 | P.DS_ITS ---
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 of suicidal behavior and active alcohol addiction. He showed moderate improvement and was able to contract for safety prior to discharge. During the hospitalization, he had routine laboratory studies which were within normal limits except for few outliers. There were concerns regarding his previous conditions that were managed by hospitalist. Additionally, he had a general medical evaluation which was also within normal limits and revealed no new acute processes other than those addressed by the hospitalist. At the time of discharge, he denied psychosis or lethality. He endorsed a plan to avoid all drugs of abuse and follow-up with the aftercare recommendations of the treatment team. He was evaluated, and deemed to be absent credible lethality. He had achieved a maximal benefit from an inpatient hospitalization so he was discharged. Involuntary Hold Information 96 Hour Hold: 96 Hour Involuntary Admission: Yes 96 Hour Hold Ending Date: 03/18/21 96 Hour Hold Ending Time: 12:05 Mental Status Exam MSE Comments: This is a slender white male in hospital scrubs with limited grooming and adequate eye contact. The nasal cannula in. No abnormal movement except for psychomotor retardation. Cooperative with exam in no acute distress. Speech was decreased rate and volume. Mood described as better, affect subdued. Thought process organized. Thought content: Patient denied suicidal or homicidal ideation, there were no delusions reported or noted, he denies any auditory visual hallucinations. Attention and concentration were limited and memory was unreliable but none were formally tested. He is alert and oriented x3. Insight and judgment are limited, but improving and impulse control is limited. Discharge Data Data Completed and Pending: Completed Studies During Hospitalization Category Date Time Status XR chest 1V zane ble [id number] Urgent Exams 03/12/21 10:27 Completed Pending at discharge Category Date Time Status Blood Culture Sta t Lab 03/12/21 14:04 Results Labs from last 24 hours 03/15/21 03/15/21 11:35 11:35 WBC 5.9 RBC 4.23 Hgb 13.1 Hct 41.3 L MCV 97.6 H MCH 31.0 MCHC 31.7 RDW 13.7 Plt Count 174 MPV 9.5 Neut % (Auto) 65.6 Lymph % (Auto) 23.7 Rapides % (Auto) 8.3 Eos % (Auto) 1.5 Baso % (Auto) 0.7 Neut # (Auto) 3.88 Lymph # (Auto) 1.4 Rapides # (Auto) 0.5 Eos # (Auto) 0.1 Baso # (Auto) 0.0 Nucleated RBC % (a uto) 0 Nucleated RBCs # 0.0 Sodium 139 Potassium 4.3 Chloride 103 Carbon Dioxide 25 Anion Gap 15.3 BUN 11 Creatinine 0.6 L GFR Calculation 137.9 H Glucose 91 Calculated Osmolal ity 287 Calcium 9.1 Total Bilirubin 0.5 AST 17 ALT 8 Alkaline Phosphata se 135 H Total Protein 6.9 Albumin 3.8 Globulin 3.1 Vitals: Last Vital Signs Temp 98.4 F 03/15/21 21:22 Pulse 82 03/15/21 21:22 Resp 16 03/15/21 21:22 BP 123/81 03/15/21 21:22 Pulse Ox 92 03/15/21 21:22 Discharge Plan Discharge Patient Disposition: Home Condition: Stable Prescriptions: New naltrexone 50 mg tablet 50 mg PO DAILY 30 Days Qty: 30 RF: 1 bacitracin 500 unit/gram Ointment 1 applic topical BID 30 Days Qty: 1 RF: 0 Continued (DME) Cam Walker See Rx Instructions .ROUTE .MEDSUPPLY Qty: 1 RF: 0 diltiazem HCl 240 mg capsule,extended release 24 hr 240 mg PO DAILY Qty: 30 RF: 0 multivitamin Tablet 1 tab PO DAILY RF: 0 Opsumit 10 mg tablet 10 mg PO DAILY RF: 0 fluconazole 100 mg tablet 100 mg PO DAILY RF: 0 Eliquis 5 mg tablet 5 mg PO BID RF: 0 albuterol sulfate 90 mcg/actuation HFA aerosol inhaler 2 inh INHALATION Q4H PRN (Reason: shortness of breath or wheezing) Qty: 18 RF: 0 acetaminophen [Tylenol Extra Strength] 500 mg Tablet 500 - 1,000 mg PO PRN RF: 0 folic acid 1 mg Tablet 1 mg PO DAILY RF: 0 sildenafil (pulm.hypertension) 20 mg tablet 20 mg PO TID RF: 0 Dovato 50-300 mg tablet 1 tab PO DAILY RF: 0 potassium chloride 20 mEq tablet,ER particles/crystals 20 meq PO BID RF: 0 trazodone 150 mg tablet 300 mg PO BEDTIME RF: 0 mirtazapine 15 mg tablet 15 mg PO BEDTIME RF: 0 testosterone 20.25 mg/1.25 gram (1.62 %) gel in metered-dose pump 2 pump topical QAM RF: 0 nicotine (polacrilex) 2 mg Gum 2 mg buccal Q2H PRN (Reason: Withdrawal) Qty: 60 RF: 4 nicotine 21 mg/24 hr Patch 24 Hour 1 patch transdermal DAILY Qty: 30 RF: 0 thiamine mononitrate (vit B1) [Vitamin B-1 (mononitrate)] 100 mg Tablet 100 mg PO DAILY Qty: 30 RF: 0 Discontinued hydrocodone-acetaminophen 5-325 mg tablet 1 tab PO Q4H PRN (Reason: Mild To Moderate Pain) 7 Days Qty: 30 RF: 0 Discharge Orders: Discharge Order (Routine); Ordered 03/16/21 Ordered By: Niko Bang Referrals: [facility] [Outside] (Walk-in Tuesdays or 7:30am to 3om for medication management.) Discharge Diet: Regular Discharge Activity: Limit activity as instructed Patient Instructions: Opioid Safety Discharge Attestations NPU Time Spent in Discharge Care*: less than 30 min Specific Discharge Activities: Specific discharge activities: educating patient, discussing with foster care case manager/social workers/dc planners, docu menting/other paperwork and evaluating patient/reviewing data Coding Level of Care Code Acute Chg FW DC note Diagnoses Major depressive disorder, recurrent F33.9 Alcohol dependence F10.20 Alcohol withdrawal F10.239 Suicidal ideation R45.851 Acute alcohol intoxication F10.929 Anemia D64.9
[2021-03-16 06:00] VITALS: BP 116/79; PULSE 79; RESP 18; TEMP 36.3; O2SAT 92
[2021-03-16] MEDS: ibuprofen 600 mg Tablet PO (06:38)
[2021-03-16 07:29] VITALS: BP 116/79; PULSE 79; RESP 18; TEMP 36.3; O2SAT 92
--- NOTE | 2021-03-16 12:03 | PC.RESP ---
SMOKING CESSATION AND PULMONARY REHAB INFORMATION SENT TO PATIENT.
== END 2021-03-16 07:55 | disposition home or self-care (01) | DRG 885 ==
LOC: ER 11:03 → NP 16:21
PROVIDERS: Admitting Provider Psychiatry & Neurology Psychiatry; Emergency Provider Family Medicine; PCP Family Medicine; Visit Provider Psychiatry & Neurology Psychiatry
DX: F33.2 Major depressive disorder, recurrent severe without psychotic features (principal); R45.851 Suicidal ideations; F10.24 Alcohol dependence with alcohol-induced mood disorder; B20 Human immunodeficiency virus [HIV] disease; F10.229 Alcohol dependence with intoxication, unspecified; J44.9 Chronic obstructive pulmonary disease, unspecified; F17.210 Nicotine dependence, cigarettes, uncomplicated; Z99.81 Dependence on supplemental oxygen; Z91.81 History of falling; Z65.3 Problems related to other legal circumstances; Z91.5 Personal history of self-harm; Z86.711 Personal history of pulmonary embolism; Z90.79 Acquired absence of other genital organ(s); Z85.72 Personal history of non-Hodgkin lymphomas
CPT/HCPCS: 36415; 71045; 80053; 80306; 80307; 81001; 85025; 87040; 96372; 99285; J2060; J2405; J3411; J7030

== ENCOUNTER 2021-03-24 18:32 | Inpatient (IN) | payer MEDICARE, MEDICAID, SELFPAY ==
[2021-03-24 18:35] VITALS: BP 133/84; PULSE 111; RESP 16; TEMP 36.6; O2SAT 97; BMI 23.0
--- NOTE | 2021-03-24 18:35 | W.ED.GENADLT ---
Documented by User: Bryant Lieberman MD 03/26/21 16:17 HPI - General Adult General: Chief complaint: Alcohol Stated complaint: 96 HOLD Time Seen by Provider: 03/24/21 18:35 History of Present Illness: HPI narrative: Mr. Almanzar is a 60-year-old gentleman with significant past medical history of alcohol abuse who presents the emergency department via EMS and PD custody for a 96-hour hold. Reportedly, per review of petition, the patient has a known lower extremity fracture which he has not been taking care of and declines to go to follow-up appointments for. Additionally he drinks daily and stumbles around. Upon presentation to the emergency department patient appears clinically intoxicated and does admit to drinking. He provides limited to no additional history only repeating please don't . Review of Systems General: Reports: ROS unobtainable due to mental status PFSH ED PFSH: Medical History Alcohol use disorder Anorexia Atrial fibrillation Closed fractures involving multiple regions of right lower extremity Colon polyps COPD (chronic obstructive pulmonary disease) Severe COPD Deliberate medication overdose Depression Depressive disorder Diverticulitis / Diverticulosis GI bleed Was taken off Coumadin for a month in 2015 after a bleeding gastric ulcer, currently on Eliquis History of peptic ulcer disease HIV (human immunodeficiency virus infection) Hypogonadism Liver tumor Lymphoma 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 No evidence of recurrence, currently getting HISTORIC SITES REGISTRAR prophylaxis with intrathecal methotrexate with prophylactic radiation to right testicle, CHOP treatment Major depressive disorder Meningitis Orchialgia Posttraumatic stress disorder Pulmonary embolism DVT of right leg, 2009 Pulmonary hypertension After PE Suicide attempt Surgical History H/O colonoscopy 2001 -diverticulosis, colon polyps / 2005 -diverticulosis, small telangiectasia / 01/2016 -diverticulosis with intrinsic stenosis and sigmoid H/O esophagogastroduodenoscopy 2005 -reflux esophagitis, superficial gastric erosions with hemorrhagic gastritis, duodenitis /2008 -reflux esophagitis, gastritis, small chronic gastric ulcer H/O hemorrhoidectomy History of orchiectomy, unilateral L -- diffuse large B-cell lymphoma Family History Other No pertinent family history Social History Smoking and tobacco status: current every day smoker cigarettes Packs smoked per day: 2 Alcohol intake: current Lives independently: Yes Housing: House Physical Exam Narrative: EXAM NARRATIVE: GENERAL/CONSTITUTIONAL -chronically ill appearing. No acute distress. Eyes - PERRL, no conjunctival injection ENMT - Atraumatic external nose and ears. Moist mucous membranes. No obvious external trauma NECK -moves range of motion without apparent difficulty. trachea midline CARDIOVASCULAR - regular rate and rhythm. RESPIRATORY - No retractions or accessory muscle use. ABDOMEN/GI - Nondistended. No guarding. MSK -lower extremity splint in place, distal CMS intact. SKIN - Warm, Dry NEURO -impaired, he is alert, moves all extremities equally. Patient appears clinically intoxicated. PSYCH -impaired cognition and memory Course ED course: - Patient was seen and evaluated by me at bedside - Patient placed on cardiac monitors, IV access obtained - Initial evaluation notable for patient appears clinically intoxicated and provides limited to no meaningful history requiring frequent redirection. -Unfortunately short time later the patient escalated his behavior and, given current mental status, presented a threat to himself and others including medical staff. I attempted to verbally redirect the patient and explained expectations however his behavior continued to escalate. He required medication. - Labs notable for no acute hematologic or metabolic abnormality to explain the patient's symptoms. Alcohol level was elevated. - Upon serial reexamination after treatment the patient was improved with desired therapeutic effect of medication - Based on patient history, evaluation, labs, and imaging as interpreted the most likely cause of the patient's condition is alcohol abuse with underlying psychiatric disorder -Patient care handed off to overnight physician pending reevaluation when sober with possibility of either inpatient admission or resending 96-hour hold Vital Signs: Vital signs: Vital Signs Temperature 98.2 F 03/25/21 15:00 Pulse Rate 100 03/25/21 15:00 Respiratory Rate 18 03/25/21 15:00 Blood Pressure 118/78 03/25/21 15:00 Pulse Oximetry 93 03/25/21 15:00 MDM - General Adult Lab Data: Labs: Lab Results 03/24/21 03/24/21 03/25/21 Range/Units 21:20 21:20 00:51 WBC 4.8 (4.0-10.0) 10^3/ uL RBC 4.43 (4.1-5.3) 10^6/u L Hgb 13.7 (11.7-16.6) g/dL Hct 41.3 L (42.0-52.0) % MCV 93.2 (80-94) fl MCH 30.9 (28.0-34.0) pg MCHC 33.2 (30.0-36.0) g/dL RDW 13.3 (12.1-15.1) % Plt Count 252 (130-400) 10^3/c mm MPV 8.4 (7.4-10.4) fL Neut % (Auto) 34.9 % Lymph % (Auto) 52.0 % Grant % (Auto) 8.1 % Eos % (Auto) 2.5 % Baso % (Auto) 2.3 % Neut # (Auto) 1.69 L (1.8-7.7) 10^3/u L Lymph # (Auto) 2.5 (0.8-4.8) 10^3/u L Grant # (Auto) 0.4 (0.2-0.9) 10^3/u L Eos # (Auto) 0.1 (0.0-0.8) 10^3/u L Baso # (Auto) 0.1 (0.0-0.1) 10^3/u L Nucleated RBC % (a uto) 0 % Nucleated RBCs # 0.0 /100WBC Sodium 145 (136-145) mmol/L Potassium 3.5 (3.5-5.1) mmol/L Chloride 104 (98-107) mmol/L Carbon Dioxide 26 (22-29) mmol/L Anion Gap 18.5 (5-19) BUN 4 L (6-20) mg/dL Creatinine 0.5 L (0.7-1.2) mg/dL GFR Calculation 170.2 H (90-130) mL/min Glucose 88 (65-115) mg/dL Calculated Osmolal ity 296 H (285-295) mOsm/k g Calcium 8.1 L (8.5-10.5) mg/dL Total Bilirubin 0.2 (0.15-1.2) mg/dL AST 26 (0-40) U/L ALT 11 (0-41) U/L Alkaline Phosphata se 136 H (40-130) IU/L Total Protein 7.2 (6.6-8.7) g/dL Albumin 3.9 (3.5-5.2) g/dL Globulin 3.3 (1.3-4.6) g/dL Salicylates < 0.3 L (3-10) mg/dL Acetaminophen < 5.0 L (10-30) ug/mL Ethyl Alcohol 330 H* 226 H (0-10) mg/dL Discharge Plan Discharge Patient Disposition: Admitted As Inpatient Admit Provider: Obed Corbin Clinical Impression: Alcohol intoxication, Delusion Condition: Stable Discharge Diet: Usual diet Discharge Activity: Resume usual activity Coding Level of Care Code ED Certification Technician for Chg Fwd Documented by User: Fanny Virgen MD 03/25/21 02:21 HPI - General Adult General: Chief complaint: Alcohol Stated complaint: 96 HOLD Time Seen by Provider: 03/24/21 18:35 PFSH ED PFSH: Medical History Alcohol use disorder Anorexia Atrial fibrillation Closed fractures involving multiple regions of right lower extremity Colon polyps COPD (chronic obstructive pulmonary disease) Severe COPD Deliberate medication overdose Depression Depressive disorder Diverticulitis / Diverticulosis GI bleed Was taken off Coumadin for a month in 2015 after a bleeding gastric ulcer, currently on Eliquis History of peptic ulcer disease HIV (human immunodeficiency virus infection) Hypogonadism Liver tumor Lymphoma 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 No evidence of recurrence, currently getting HISTORIC SITES REGISTRAR prophylaxis with intrathecal methotrexate with prophylactic radiation to right testicle, CHOP treatment Major depressive disorder Meningitis Orchialgia Posttraumatic stress disorder Pulmonary embolism DVT of right leg, 2009 Pulmonary hypertension After PE Suicide attempt Surgical History H/O colonoscopy 2001 -diverticulosis, colon polyps / 2005 -diverticulosis, small telangiectasia / 01/2016 -diverticulosis with intrinsic stenosis and sigmoid H/O esophagogastroduodenoscopy 2005 -reflux esophagitis, superficial gastric erosions with hemorrhagic gastritis, duodenitis /2008 -reflux esophagitis, gastritis, small chronic gastric ulcer H/O hemorrhoidectomy History of orchiectomy, unilateral L -- diffuse large B-cell lymphoma Family History Other No pertinent family history Social History Smoking and tobacco status: current every day smoker cigarettes Packs smoked per day: 2 Alcohol intake: current Lives independently: Yes Housing: House Course Vital Signs: Vital signs: Vital Signs Temperature 98.2 F 03/25/21 15:00 Pulse Rate 100 03/25/21 15:00 Respiratory Rate 18 03/25/21 15:00 Blood Pressure 118/78 03/25/21 15:00 Pulse Oximetry 93 03/25/21 15:00 MDM - General Adult MDM Narrative: Medical decision making narrative: Patient presents here with alcohol intoxication also under 96-hour hold for delusions. Patient is not able to give a coherent history here but he has denied suicide and homicide. I did take patient from At home who had to chemically sedate the patient due to him being aggressive. I spoke to psychiatrist and will admit at this time as he is under the 96-hour hold. Lab Data: Labs: Lab Results 03/24/21 03/24/21 03/25/21 Range/Units 21:20 21:20 00:51 WBC 4.8 (4.0-10.0) 10^3/ uL RBC 4.43 (4.1-5.3) 10^6/u L Hgb 13.7 (11.7-16.6) g/dL Hct 41.3 L (42.0-52.0) % MCV 93.2 (80-94) fl MCH 30.9 (28.0-34.0) pg MCHC 33.2 (30.0-36.0) g/dL RDW 13.3 (12.1-15.1) % Plt Count 252 (130-400) 10^3/c mm MPV 8.4 (7.4-10.4) fL Neut % (Auto) 34.9 % Lymph % (Auto) 52.0 % Grant % (Auto) 8.1 % Eos % (Auto) 2.5 % Baso % (Auto) 2.3 % Neut # (Auto) 1.69 L (1.8-7.7) 10^3/u L Lymph # (Auto) 2.5 (0.8-4.8) 10^3/u L Grant # (Auto) 0.4 (0.2-0.9) 10^3/u L Eos # (Auto) 0.1 (0.0-0.8) 10^3/u L Baso # (Auto) 0.1 (0.0-0.1) 10^3/u L Nucleated RBC % (a uto) 0 % Nucleated RBCs # 0.0 /100WBC Sodium 145 (136-145) mmol/L Potassium 3.5 (3.5-5.1) mmol/L Chloride 104 (98-107) mmol/L Carbon Dioxide 26 (22-29) mmol/L Anion Gap 18.5 (5-19) BUN 4 L (6-20) mg/dL Creatinine 0.5 L (0.7-1.2) mg/dL GFR Calculation 170.2 H (90-130) mL/min Glucose 88 (65-115) mg/dL Calculated Osmolal ity 296 H (285-295) mOsm/k g Calcium 8.1 L (8.5-10.5) mg/dL Total Bilirubin 0.2 (0.15-1.2) mg/dL AST 26 (0-40) U/L ALT 11 (0-41) U/L Alkaline Phosphata se 136 H (40-130) IU/L Total Protein 7.2 (6.6-8.7) g/dL Albumin 3.9 (3.5-5.2) g/dL Globulin 3.3 (1.3-4.6) g/dL Salicylates < 0.3 L (3-10) mg/dL Acetaminophen < 5.0 L (10-30) ug/mL Ethyl Alcohol 330 H* 226 H (0-10) mg/dL Discharge Plan Discharge Patient Disposition: Admitted As Inpatient Admit Provider: Obed Corbin Clinical Impression: Alcohol intoxication, Delusion Condition: Stable Discharge Diet: Usual diet Discharge Activity: Resume usual activity Coding Level of Care Code ED Certification Technician for Osmin Ordonez
--- NOTE | 2021-03-24 19:36 | ECG_ITS ---
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
[2021-03-24] MEDS: midazolam 1 mg/mL INJ 2 mL 5 MG IM (19:40)
[2021-03-24 19:57] VITALS: BP 121/74; PULSE 98; RESP 16; O2SAT 97
[2021-03-24] MEDS: LORazepam 2 mg/mL INJ 1 mL IM (20:51)
[2021-03-24] MEDS: haloperidol inj 5 mg/mL INJ 1 mL 2 MG IVP (20:51)
[2021-03-24 21:39] LABS: Basophils # 0.1 10^3/uL (0.0-0.1); Basophils % 2.3 %; Eosinophils # 0.1 10^3/uL (0.0-0.8); Eosinophils % 2.5 %; Hematocrit 41.3 % (42.0-52.0); Hemoglobin 13.7 g/dL (11.7-16.6); Lymphocytes # 2.5 10^3/uL (0.8-4.8); Mean Corpuscular HGB Conc 33.2 g/dL (30.0-36.0); Mean Corpuscular Hemoglobin 30.9 pg (28.0-34.0); Mean Corpuscular Volume 93.2 fl (80-94); Mean Platelet Volume 8.4 fL (7.4-10.4); Monocytes # 0.4 10^3/uL (0.2-0.9); Monocytes % 8.1 %; Neutrophils # 1.69 10^3/uL (1.8-7.7); Neutrophils % 34.9 %; Nucleated Red Blood Cells % 0 %; Platelet Count 252 10^3/cmm (130-400); Red Blood Count 4.43 10^6/uL (4.1-5.3); Red Cell Distribution Width 13.3 % (12.1-15.1); White Blood Count 4.8 10^3/uL (4.0-10.0)
[2021-03-24 21:57] LABS: Alanine Aminotransferase 11 U/L (0-41); Albumin Level 3.9 g/dL (3.5-5.2); Alkaline Phosphatase 136 IU/L (40-130); Anion Gap 18.5 (5-19); Aspartate Amino Transferase 26 U/L (0-40); Blood Urea Nitrogen 4 mg/dL (6-20); Calcium 8.1 mg/dL (8.5-10.5); Carbon Dioxide 26 mmol/L (22-29); Chloride 104 mmol/L (98-107); Globulin 3.3 g/dL (1.3-4.6); Glomerular Filtration Rate 170.2 mL/min (90-130); Glucose 88 mg/dL (65-115); Osmolality Calculated 296 mOsm/kg (285-295); Potassium 3.5 mmol/L (3.5-5.1); Sodium 145 mmol/L (136-145); Total Bilirubin 0.2 mg/dL (0.15-1.2); Total Protein 7.2 g/dL (6.6-8.7)
[2021-03-24 21:58] LABS: Acetaminophen < 5.0 ug/mL (10-30); Alcohol Level 330 mg/dL (0-10); Salicylate < 0.3 mg/dL (3-10)
[2021-03-24 22:10] VITALS: BP 97/62; PULSE 96; RESP 16; O2SAT 98
[2021-03-25 01:15] LABS: Alcohol Level 226 mg/dL (0-10)
[2021-03-25 03:50] VITALS: BP 110/76; PULSE 88; RESP 14; O2SAT 96
[2021-03-25 03:52] VITALS: BP 110/76; PULSE 88; RESP 16; O2SAT 96
[2021-03-25 04:15] VITALS: BP 118/78; PULSE 100; RESP 18; TEMP 36.8; O2SAT 93
[2021-03-25 06:00] VITALS: BP 118/78; PULSE 100; RESP 18; TEMP 36.8; O2SAT 93
[2021-03-25] MEDS: multivitamin therapeutic Tablet 1 TAB PO (08:34)
[2021-03-25] MEDS: fluconazole 100 mg Tablet PO (08:34)
[2021-03-25] MEDS: potassium chloride ER 20 mEq Tablet PO (08:34)
[2021-03-25] MEDS: apixaban 5 mg Tablet PO (08:34)
[2021-03-25] MEDS: naltrexone hcl 50 mg Tablet PO (08:34)
[2021-03-25] MEDS: dilTIAZem ER (24HR) 240 mg Capsule PO (08:34)
[2021-03-25] MEDS: folic acid 1 mg Tablet PO (08:34)
[2021-03-25] MEDS: thiamine 100 mg Tablet PO (08:34)
[2021-03-25] MEDS: bacitracin ointment 28 gm 1 APPLIC TOPICAL (08:35)
[2021-03-25] MEDS: nicotine 21 mg Patch 1 PATCH TRANSDERMA (08:36)
[2021-03-25] MEDS: loperamide 2 mg Capsule PO (10:59)
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
[2021-03-25 15:00] VITALS: BP 118/78; PULSE 100; RESP 18; TEMP 36.8; O2SAT 93
== END 2021-03-25 15:27 | disposition home or self-care (01) | DRG 885 ==
LOC: ER 03-25 02:20 → NP 03-25 03:44
PROVIDERS: Emergency Medicine; Admitting Provider Psychiatry & Neurology Child & Adolescent Psychiatry; Emergency Provider Emergency Medicine; PCP Family Medicine; Visit Provider Psychiatry & Neurology Child & Adolescent Psychiatry
DX: F33.3 Major depressive disorder, recurrent, severe with psychotic symptoms (principal); F10.24 Alcohol dependence with alcohol-induced mood disorder; B20 Human immunodeficiency virus [HIV] disease; F33.9 Major depressive disorder, recurrent, unspecified; F10.229 Alcohol dependence with intoxication, unspecified; D64.9 Anemia, unspecified; J44.9 Chronic obstructive pulmonary disease, unspecified; F17.210 Nicotine dependence, cigarettes, uncomplicated; Z99.81 Dependence on supplemental oxygen; Z91.5 Personal history of self-harm; Z86.718 Personal history of other venous thrombosis and embolism; Z79.01 Long term (current) use of anticoagulants
CPT/HCPCS: 36415; 80053; 80307; 85025; 93005; 96372; 96374; 99285; J1630; J2060; J2250; J3411

== ENCOUNTER 2021-04-04 13:55 | Emergency (ER) | payer MEDICARE, MEDICAID, SELFPAY ==
[2021-04-04 14:02] VITALS: BP 124/83; PULSE 97; RESP 18; TEMP 36.9; O2SAT 99; BMI 21.2
--- NOTE | 2021-04-04 14:09 | CT_ITS ---
WS: [id number] CT FACIAL BONES HISTORY: facial hematoma TECHNIQUE: Images obtained from the supraorbital location through the mandible. Soft tissue and bone windows are reviewed. Coronal and sagittal reformats have also been submitted. DLP: 794.[address] scans at [facility] use at least one of these dose optimization techniques: automated e xposure control; mA and/or kV adjustment per patient size (includes targeted exams where dose is matc hed to clinical indication); or iterative reconstruction. COMPARISON: None available. Nondisplaced fracture involving the lateral wall of the LEFT maxillary sinus. There is an air-fluid l evel in the maxillary sinus. Additional minimal buckle fracture involving the LEFT zygomatic arch. Th ere is a nondisplaced fracture involving the RIGHT anterior nasal bone. Large amount of soft tissue e renetta surrounding the LEFT facial bones centered over the orbit and maxillary sinus. The globe is inta ct. No retro-orbital hematoma. CT/CT facial bones wo con* [id number] IMPRESSION: 1. Acute, nondisplaced fractures involving the lateral wall of the LEFT maxill kashif sinus. 2. Acute nondisplaced fracture LEFT zygomatic arch. 3. Anterior RIGHT nasal bone fracture. Age indeterminate. 4. Large soft tissue hematoma centered over the LEFT orbit and maxillary sinus .
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
[2021-04-04 14:56] VITALS: BP 104/73; PULSE 98; RESP 16; O2SAT 99
[2021-04-04] MEDS: acetaminophen 500 mg Tablet PO (15:07)
[2021-04-04 15:49] VITALS: BP 104/76; PULSE 90; RESP 18; O2SAT 99
[2021-04-04 15:55] LABS: Basophils # 0.1 10^3/uL (0.0-0.1); Basophils % 0.9 %; Eosinophils % 0.5 %; Hematocrit 40.5 % (42.0-52.0); Hemoglobin 13.3 g/dL (11.7-16.6); Lymphocytes # 1.8 10^3/uL (0.8-4.8); Lymphocytes % 32.8 %; Mean Corpuscular HGB Conc 32.8 g/dL (30.0-36.0); Mean Corpuscular Hemoglobin 30.9 pg (28.0-34.0); Mean Platelet Volume 9.3 fL (7.4-10.4); Monocytes # 0.5 10^3/uL (0.2-0.9); Monocytes % 9.1 %; Neutrophils # 3.12 10^3/uL (1.8-7.7); Neutrophils % 56.5 %; Nucleated Red Blood Cells % 0 %; Platelet Count 157 10^3/cmm (130-400); Red Blood Count 4.31 10^6/uL (4.1-5.3); Red Cell Distribution Width 13.2 % (12.1-15.1); White Blood Count 5.5 10^3/uL (4.0-10.0)
[2021-04-04 16:10] LABS: Partial Thromboplastin Time 27.6 SECONDS (23.9-36.7)
[2021-04-04 16:14] LABS: Anion Gap 16.6 (5-19); Blood Urea Nitrogen 3 mg/dL (6-20); Carbon Dioxide 28 mmol/L (22-29); Chloride 104 mmol/L (98-107); Glomerular Filtration Rate 170.2 mL/min (90-130); Glucose 83 mg/dL (65-115); Osmolality Calculated 296 mOsm/kg (285-295); Potassium 3.6 mmol/L (3.5-5.1); Sodium 145 mmol/L (136-145)
[2021-04-04 16:41] VITALS: BP 109/70; RESP 18
--- NOTE | 2021-04-05 10:00 | DCPLANNER ---
manager client had message to schedule a follow up appointment for patient with Dr. Chavez. manager client called the office of Dr. Chavez, told the clinic about patient. manager client faxed patients records to the clinic. Clinic will call patient with appointment information.
--- NOTE | 2021-04-08 10:24 | DCPLANNER ---
assistant warehouse manager called the office of Dr. Chavez to confirm if a follow up appointment had been scheduled for patient. assistant warehouse manager was told that a follow up appointment had been scheduled for Tuesday, May 04, [address] at 4:[address] Chavez. Clinic will call patient with appointment information.
== END 2021-04-04 14:30 | disposition home or self-care (01) ==
PROVIDERS: Emergency Provider Emergency Medicine; PCP Family Medicine
DX: S02.40FA Zygomatic fracture, left side, initial encounter for closed fracture (principal); S02.85XA Fracture of orbit, unspecified, initial encounter for closed fracture; H53.8 Other visual disturbances; N50.811 Right testicular pain; Z79.01 Long term (current) use of anticoagulants; J44.9 Chronic obstructive pulmonary disease, unspecified; B20 Human immunodeficiency virus [HIV] disease; Z85.72 Personal history of non-Hodgkin lymphomas; Z86.711 Personal history of pulmonary embolism; F17.210 Nicotine dependence, cigarettes, uncomplicated; Y04.2XXA Assault by strike against or bumped into by another person, initial encounter
CPT/HCPCS: 70450; 70486; 76870; 80048; 85025; 85610; 85730; 99283

== ENCOUNTER → 2021-04-05 09:41 | Outpatient (BNVA) | payer MEDICARE, MEDICAID, SELFPAY | PROVIDERS: PCP Family Medicine; Visit Provider Orthopaedic Surgery | DX: S82.231D Displaced oblique fracture of shaft of right tibia, subsequent encounter for closed fracture with routine healing (principal); S82.431D Displaced oblique fracture of shaft of right fibula, subsequent encounter for closed fracture with routine healing; X58.XXXD Exposure to other specified factors, subsequent encounter; Z98.890 Other specified postprocedural states | CPT/HCPCS: 73590 ==

== ENCOUNTER 2021-07-18 09:14 | Emergency (ER) | payer MEDICARE, MEDICAID, SELFPAY ==
--- NOTE | 2021-07-18 09:21 | XR_ITS ---
WS: [id number] Portable AP upright chest, 07/18/2021 Clinical Data: cough Comparison: Portable chest, 03/12/2021. Findings: No nodules, masses or effusions are seen. The heart is normal. The pulmonary vascularity is not increased. No pneumonia or pneumothorax is seen. There is bilateral lower lobe interstitial camilo ge most consistent with chronic lung disease. The right hilum is enlarged probably from adenopathy. XR/XR chest 1V portable [id number] Impression: 1. Patchy bilateral lower lobe interstitial change most consistent with chronic lung disease, but recommend follow-up PA and lateral chest x-ray in 5-10 days. 2. Right hilar enlargement probably from adenopathy.
[2021-07-18 10:55] VITALS: BP 108/68; PULSE 100; RESP 20; TEMP 36.8; O2SAT 91; BMI 21.5
[2021-07-18 12:49] LABS: Adenovirus Not Detected (NOT DETECT); Chlamydia Pneumoniae Not Detected (NOT DETECT); Coronavirus 229E,HKU1,NL63,OC4 Not Detected (NOT DETECT); Human Metapneumovirus Not Detected (NOT DETECT); Human Rhinovirus/Enterovirus Detected (NOT DETECT); Influenza A Not Detected (NOT DETECT); Influenza A H1 Not Detected (NOT DETECT); Influenza A H1-2009 Not Detected (NOT DETECT); Influenza A H3 Not Detected (NOT DETECT); Influenza B Not Detected (NOT DETECT); Mycoplasma Pneumoniae Not Detected (NOT DETECT); Parainfluenza Virus Type 1 Not Detected (NOT DETECT); Parainfluenza Virus Type 2 Not Detected (NOT DETECT); Parainfluenza Virus Type 3 Not Detected (NOT DETECT); Parainfluenza Virus Type 4 Not Detected (NOT DETECT); Respiratory Syncytial Virus A Not Detected (NOT DETECT); Respiratory Syncytial Virus B Not Detected (NOT DETECT); SARS-COV-2 Not Detected (NOT DETECT)
[2021-07-18 12:53] LABS: Human Metapneumovirus Not Detected (NOT DETECT); Human Rhinovirus/Enterovirus Detected (NOT DETECT); Results from Genmark
== END 2021-07-18 13:00 | disposition left against medical advice (07) ==
LOC: ER 09:17
PROVIDERS: Physician Assistant; Emergency Provider Family Medicine; PCP Family Medicine
DX: Z53.21 Procedure and treatment not carried out due to patient leaving prior to being seen by health care provider (principal)
CPT/HCPCS: 71045; 87635; 87801; 99282

== ENCOUNTER 2021-10-03 08:39 | Outpatient (CLI) | payer MEDICARE, MEDICAID, SELFPAY ==
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
== END 2021-10-03 08:40 | disposition home or self-care (01) ==
PROVIDERS: PCP Family Medicine; Visit Provider Internal Medicine Medical Oncology
DX: Z85.47 Personal history of malignant neoplasm of testis (principal); J44.9 Chronic obstructive pulmonary disease, unspecified; B20 Human immunodeficiency virus [HIV] disease; I27.20 Pulmonary hypertension, unspecified; F32.A Depression, unspecified; G47.00 Insomnia, unspecified; Z86.711 Personal history of pulmonary embolism; Z79.899 Other long term (current) drug therapy
CPT/HCPCS: 99214

== ENCOUNTER 2021-10-24 21:32 | Emergency (ER) | payer MEDICARE, MEDICAID, SELFPAY ==
--- NOTE | 2021-10-24 21:41 | ED_ITS ---
Documented by User: Eder Stallworth MD 10/24/21 22:59 HPI - General Adult General: Chief complaint: Psychiatric Symptoms Stated complaint: 96, Time Seen by Provider: 10/24/21 21:35 History of Present Illness: HPI: [61]yo patient w/ hx of depression BIBP under involuntary commitment and court order. Patient is not able to take care of self and is confused. On arrival, the patient is AAOx3 and cooperative with my evaluation. No focal complaints of chest pain, shortness of breath, palpitations, N/V, focal GI/ complaints. No complaints of hallucinations. Onset: acute Duration: ongoing Location: home Severity: severe Associated symptoms: Deny chest pain, dyspnea, nausea, rash, palpitations or vomiting Review of Systems Const: Denies: fever(s) or chills Eyes: Denies: change in vision ENMT: Denies: mouth pain Card: Denies: chest pain or palpitations Resp: Denies: dyspnea or non-productive cough GI: Denies: abdominal pain, nausea, vomiting or diarrhea : Denies: dysuria Musc: Denies: extremity pain Skin/Breast: Denies: rash or new lesions Neuro: Denies: weakness in extremities Psych: Reports: irritability and other (confusion, altered mental status) Obey/Lymph: Denies: easy bruising PFSH ED PFSH: Medical History Alcohol use disorder Anorexia Atrial fibrillation Closed fractures involving multiple regions of right lower extremity Colon polyps COPD (chronic obstructive pulmonary disease) Severe COPD Deliberate medication overdose Depression Depressive disorder Diverticulitis / Diverticulosis GI bleed Was taken off Coumadin for a month in 2015 after a bleeding gastric ulcer, currently on Eliquis History of peptic ulcer disease HIV (human immunodeficiency virus infection) Hypogonadism Liver tumor Lymphoma 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 No evidence of recurrence, currently getting NITROGLYCERIN SUPERVISOR prophylaxis with intrathecal methotrexate with prophylactic radiation to right testicle, CHOP treatment Major depressive disorder Meningitis Orchialgia Posttraumatic stress disorder Pulmonary embolism DVT of right leg, 2009 Pulmonary hypertension After PE Suicide attempt Surgical History H/O colonoscopy 2001 -diverticulosis, colon polyps / 2005 -diverticulosis, small telangiectasia / 01/2016 -diverticulosis with intrinsic stenosis and sigmoid H/O esophagogastroduodenoscopy 2005 -reflux esophagitis, superficial gastric erosions with hemorrhagic gastritis, duodenitis /2009 -reflux esophagitis, gastritis, small chronic gastric ulcer H/O hemorrhoidectomy History of orchiectomy, unilateral L -- diffuse large B-cell lymphoma Family History Other No pertinent family history Social History Smoking and tobacco status: current every day smoker (pack a day) cigarettes Packs smoked per day: 1 Alcohol intake: current Lives independently: Yes Housing: House Physical Exam Const: COMMON NORMALS: alert HENMT: COMMON NORMALS: atraumatic HEAD & SCALP: atraumatic MOUTH: moist mucous membranes not abnormal Eye: COMMON NORMALS: EOMs intact bilaterally and conjunctivae normal CONJUNCTIVA: Yes conjunctivae normal Neck/C-Spine: COMMON NORMALS: full ROM and supple Resp: COMMON NORMALS: normal respiratory effort and clear to auscultation bilaterally AUSCULTATION: clear to auscultation bilaterally Cardio: COMMON NORMALS: regular rate RATE: regular rate GI: COMMON NORMALS: Soft to palpation and non-tender PALPATION: Yes Soft to palpation Extremity: COMMON NORMALS: full ROM Neuro: SENSORIUM/ORIENTATION: Yes alert MOTOR EXAM: No Abnormal motor strength present and Other motor observations present (no focal motor deficits) Psych: SPEECH: Yes incoherent MOOD & AFFECT: Yes euthymic mood Course Vital Signs: Vital signs: Vital Signs Temperature 97.1 F L 10/24/21 21:53 Pulse Rate 75 10/25/21 10:39 Respiratory Rate 14 10/25/21 10:39 Blood Pressure 97/72 10/25/21 10:39 Pulse Oximetry 92 10/25/21 10:39 MDM - General Adult Medical Decision Making [61]yo patient w/ hx of depression presenting for depression and SI. HDS, exam within normal limit. Thoughts are nonlinear and disorganized and the patient has no AH/VH, or HI. Clinically the patient displays no overt toxidrome; they are well appearing, with low suspicion for toxic ingestion given history and exam. Symptoms unlikely 2/2 anemia, hypothyroidism, infection, or ICH. Workup: CBC, CMP, Lipase, salicylate/tylenol, UDS, CT head CT head negative for any acute brain bleed. Alcohol 337. Case signed out to Dr. Virgen pending further work-up and reassessment Lab Data : 10/24/21 22:13 10/24/21 22:[address] 10/24/21 21:43 IMPRESSION: 1. Examination is limited secondary to motion artifact which could obscure pathology. 2. No acute intracranial findings. Chest X-Ray 10/25/21 02:27 IMPRESSION: 1. Moderate right basilar airspace opacity (atelectasis and/or consolidation), increased from prior study. 2. Mild pulmonary edema, increased from prior study. 3. Small right pleural effusion, increased from prior study. Laboratory Results WBC 5.8 10^3/uL (4.0-10.0) 10/24/21 22:13 RBC 4.70 10^6/uL (4.1-5.3) 10/24/21 22:13 Hgb 14.5 g/dL (11.7-16.6) 10/24/21 22:13 Hct 44.1 % (42.0-52.0) 10/24/21 22:13 MCV 93.8 fl (80-94) 10/24/21 22:13 MCH 30.9 pg (28.0-34.0) 10/24/21 22:13 MCHC 32.9 g/dL (30.0-36.0) 10/24/21 22:13 RDW 13.1 % (12.1-15.1) 10/24/21 22:13 Plt Count 157 10^3/cmm (130-400) 10/24/21 22:13 MPV 8.7 fL (7.4-10.4) 10/24/21 22:13 Neut % (Auto) 39.3 % 10/24/21 22:13 Lymph % (Auto) 49.7 % 10/24/21 22:13 Webster % (Auto) 6.7 % 10/24/21 22:13 Eos % (Auto) 2.7 % 10/24/21 22:13 Baso % (Auto) 1.4 % 10/24/21 22:13 Neut # (Auto) 2.29 10^3/uL (1.8-7.7) 10/24/21 22:13 Lymph # (Auto) 2.9 10^3/uL (0.8-4.8) 10/24/21 22:13 Webster # (Auto) 0.4 10^3/uL (0.2-0.9) 10/24/21 22:13 Eos # (Auto) 0.2 10^3/uL (0.0-0.8) 10/24/21 22:13 Baso # (Auto) 0.1 10^3/uL (0.0-0.1) 10/24/21 22:13 Nucleated RBC % (auto) 0 % 10/24/21 22:13 Nucleated RBCs # 0.0 /100WBC 10/24/21 22:13 Sodium 142 mmol/L (136-145) 10/24/21 22:13 Potassium 3.8 mmol/L (3.5-5.1) 10/24/21 22:13 Chloride 103 mmol/L (98-107) 10/24/21 22:13 Carbon Dioxide 22 mmol/L (22-29) 10/24/21 22:13 Anion Gap 20.8 (5-19) H 10/24/21 22:13 BUN 7 mg/dL (8-23) L 10/24/21 22:13 Creatinine 0.9 mg/dL (0.7-1.2) 10/24/21 22:13 GFR Calculation 86.1 mL/min (90-130) L 10/24/21 22:13 Glucose 88 mg/dL (65-115) 10/24/21 22:13 Calculated Osmolality 291 mOsm/kg (285-295) 10/24/21 22:13 Calcium 8.5 mg/dL (8.5-10.5) 10/24/21 22:13 Total Bilirubin 0.3 mg/dL (0.15-1.2) 10/24/21 22:13 AST 30 U/L (0-40) 10/24/21 22:13 ALT 13 U/L (0-41) 10/24/21 22:13 Alkaline Phosphatase 119 IU/L (40-130) 10/24/21 22:13 Total Protein 6.9 g/dL (6.6-8.7) 10/24/21 22:13 Albumin 4.0 g/dL (3.5-5.2) 10/24/21 22:13 Globulin 2.9 g/dL (1.3-4.6) 10/24/21 22:13 Lipase 55 U/L (13-60) 10/24/21 22:13 Salicylates < 0.3 mg/dL (3-10) L 10/24/21 22:13 Acetaminophen < 5.0 ug/mL (10-30) L 10/24/21 22:13 Acetaminophen Cancelled 10/24/21 22:13 Ethyl Alcohol 344 mg/dL (0-10) H* 10/25/21 04:25 Discharge Plan Discharge Patient Disposition: Home Clinical Impression: Depression with suicidal ideation, Asthma exacerbation in COPD Condition: Stable Prescriptions: New doxycycline hyclate 100 mg capsule 100 mg PO BID 10 Days Qty: 20 0RF Medrol (Ashwin) 4 mg tablets,dose pack See Rx Instructions .ROUTE .COMPLEX Qty: 21 0RF Rx Instructions: orally per package directions albuterol sulfate 90 mcg/actuation HFA aerosol inhaler 2 inh INHALATION Q4H PRN (Reason: shortness of breath or wheezing) Qty: 18 0RF No Action (DME) Manohar Bernal See Rx Instructions .ROUTE .MEDSUPPLY Qty: 1 0RF Rx Instructions: As directed multivitamin Tablet 1 tab PO DAILY 0RF Opsumit 10 mg tablet 10 mg PO DAILY 0RF Eliquis 5 mg tablet 5 mg PO BID 0RF albuterol sulfate 90 mcg/actuation HFA aerosol inhaler 2 inh INHALATION Q4H PRN (Reason: shortness of breath or wheezing) Qty: 18 0RF sildenafil (pulm.hypertension) 20 mg tablet 20 mg PO TID 0RF Dovato 50-300 mg tablet 1 tab PO QAM 0RF potassium chloride 20 mEq tablet,ER particles/crystals 20 meq PO DAILY 0RF trazodone 150 mg tablet 150 mg PO BEDTIME 0RF mirtazapine 15 mg tablet 15 mg PO BEDTIME 0RF testosterone 20.25 mg/1.25 gram (1.62 %) gel in metered-dose pump 2 pump topical QAM 0RF nicotine (polacrilex) 2 mg Gum 2 mg buccal Q2H PRN (Reason: Withdrawal) Qty: 60 4RF nicotine 21 mg/24 hr Patch 24 Hour 1 patch transdermal DAILY Qty: 30 0RF sulfamethoxazole-trimethoprim 800-160 mg tablet 1 tab PO .MON,WED,FRI 0RF prednisolone acetate 1 % drops,suspension 2 drp ophthalmic (eye) BID 0RF Rx Instructions: right eye Mytesi 125 mg tablet,delayed release (DR/EC) 125 mg PO BID 0RF Discharge Orders: Discharge ED (Routine); Ordered 10/25/21 Ordered By: Glenn Dan Referrals: Rasheed Spivey MD [Primary Care Provider] - Discharge Diet: Usual diet Discharge Activity: Increase activity as tolerated Patient Instructions: Alcoholism, Alcohol Intoxication (ED), Abuse of Alcohol (ED), Opioid Safety Activity Restrictions/Additional Instructions: Follow-up with your primary care doctor within the next week. Recommend abst inence from alcohol Sign Out Sign Out Data: Patient Sign Out occurred on 10/25/21 at 05:48. Patient's care was discussed, and care was transferred from to Glenn Dan DO. Coding Level of Care Code ED Pipe Coremaker for Chg Fwd Exam Comprehensive Documented by User: Glenn Dan DO 10/25/21 10:46 HPI - General Adult General: Chief complaint: Psychiatric Symptoms Stated complaint: 96, Time Seen by Provider: 10/24/21 21:35 PFSH ED PFSH: Medical History Alcohol use disorder Anorexia Atrial fibrillation Closed fractures involving multiple regions of right lower extremity Colon polyps COPD (chronic obstructive pulmonary disease) Severe COPD Deliberate medication overdose Depression Depressive disorder Diverticulitis / Diverticulosis GI bleed Was taken off Coumadin for a month in 2015 after a bleeding gastric ulcer, currently on Eliquis History of peptic ulcer disease HIV (human immunodeficiency virus infection) Hypogonadism Liver tumor Lymphoma 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 No evidence of recurrence, currently getting NITROGLYCERIN SUPERVISOR prophylaxis with intrathecal methotrexate with prophylactic radiation to right testicle, CHOP treatment Major depressive disorder Meningitis Orchialgia Posttraumatic stress disorder Pulmonary embolism DVT of right leg, 2010 Pulmonary hypertension After PE Suicide attempt Surgical History H/O colonoscopy 2001 -diverticulosis, colon polyps / 2005 -diverticulosis, small telangiectasia / 01/2016 -diverticulosis with intrinsic stenosis and sigmoid H/O esophagogastroduodenoscopy 2005 -reflux esophagitis, superficial gastric erosions with hemorrhagic gastritis, duodenitis /2008 -reflux esophagitis, gastritis, small chronic gastric ulcer H/O hemorrhoidectomy History of orchiectomy, unilateral L -- diffuse large B-cell lymphoma Family History Other No pertinent family history Social History Smoking and tobacco status: current every day smoker (pack a day) cigarettes Packs smoked per day: 1 Alcohol intake: current Lives independently: Yes Housing: House Course Vital Signs: Vital signs: Vital Signs Temperature 97.1 F L 10/24/21 21:53 Pulse Rate 75 10/25/21 10:39 Respiratory Rate 14 10/25/21 10:39 Blood Pressure 97/72 10/25/21 10:39 Pulse Oximetry 92 10/25/21 10:39 MDM - General Adult Medical Decision Making [61]yo patient w/ hx of depression presenting for depression and SI. HDS, exam within normal limit. Thoughts are nonlinear and disorganized and the patient has no AH/VH, or HI. Clinically the patient displays no overt toxidrome; they are well appearing, with low suspicion for toxic ingestion given history and exam. Symptoms unlikely 2/2 anemia, hypothyroidism, infection, or ICH. Workup: CBC, CMP, Lipase, salicylate/tylenol, UDS, CT head CT head negative for any acute brain bleed. Alcohol 337. Case signed out to Dr. Virgen pending further work-up and reassessment Patient awake and alert up and active. Care was assumed at change of shift. He follows simple commands psychiatry seemingly okay with him being discharged at this point. His lung sounds are coarse but relatively at his baseline he is at his usual baseline amount of oxygen he is not had any increase in sputum production chest x-rays questionably show some slight worsening of pleural effusion but he was significantly rotated overall he feels well and he prefer to go home we will discharge him home on steroids doxycycline and albuterol recommend abstinence from alcohol Lab Data : 10/24/21 22:13 10/24/21 22:[address] 10/24/21 21:43 IMPRESSION: 1. Examination is limited secondary to motion artifact which could obscure pathology. 2. No acute intracranial findings. Chest X-Ray 10/25/21 02:27 IMPRESSION: 1. Moderate right basilar airspace opacity (atelectasis and/or consolidation), increased from prior study. 2. Mild pulmonary edema, increased from prior study. 3. Small right pleural effusion, increased from prior study. Laboratory Results WBC 5.8 10^3/uL (4.0-10.0) 10/24/21 22:13 RBC 4.70 10^6/uL (4.1-5.3) 10/24/21 22:13 Hgb 14.5 g/dL (11.7-16.6) 10/24/21 22:13 Hct 44.1 % (42.0-52.0) 10/24/21 22:13 MCV 93.8 fl (80-94) 10/24/21 22:13 MCH 30.9 pg (28.0-34.0) 10/24/21 22:13 MCHC 32.9 g/dL (30.0-36.0) 10/24/21 22:13 RDW 13.1 % (12.1-15.1) 10/24/21 22:13 Plt Count 157 10^3/cmm (130-400) 10/24/21 22:13 MPV 8.7 fL (7.4-10.4) 10/24/21 22:13 Neut % (Auto) 39.3 % 10/24/21 22:13 Lymph % (Auto) 49.7 % 10/24/21 22:13 Webster % (Auto) 6.7 % 10/24/21 22:13 Eos % (Auto) 2.7 % 10/24/21 22:13 Baso % (Auto) 1.4 % 10/24/21 22:13 Neut # (Auto) 2.29 10^3/uL (1.8-7.7) 10/24/21 22:13 Lymph # (Auto) 2.9 10^3/uL (0.8-4.8) 10/24/21 22:13 Webster # (Auto) 0.4 10^3/uL (0.2-0.9) 10/24/21 22:13 Eos # (Auto) 0.2 10^3/uL (0.0-0.8) 10/24/21 22:13 Baso # (Auto) 0.1 10^3/uL (0.0-0.1) 10/24/21 22:13 Nucleated RBC % (auto) 0 % 10/24/21 22:13 Nucleated RBCs # 0.0 /100WBC 10/24/21 22:13 Sodium 142 mmol/L (136-145) 10/24/21 22:13 Potassium 3.8 mmol/L (3.5-5.1) 10/24/21 22:13 Chloride 103 mmol/L (98-107) 10/24/21 22:13 Carbon Dioxide 22 mmol/L (22-29) 10/24/21 22:13 Anion Gap 20.8 (5-19) H 10/24/21 22:13 BUN 7 mg/dL (8-23) L 10/24/21 22:13 Creatinine 0.9 mg/dL (0.7-1.2) 10/24/21 22:13 GFR Calculation 86.1 mL/min (90-130) L 10/24/21 22:13 Glucose 88 mg/dL (65-115) 10/24/21 22:13 Calculated Osmolality 291 mOsm/kg (285-295) 10/24/21 22:13 Calcium 8.5 mg/dL (8.5-10.5) 10/24/21 22:13 Total Bilirubin 0.3 mg/dL (0.15-1.2) 10/24/21 22:13 AST 30 U/L (0-40) 10/24/21 22:13 ALT 13 U/L (0-41) 10/24/21 22:13 Alkaline Phosphatase 119 IU/L (40-130) 10/24/21 22:13 Total Protein 6.9 g/dL (6.6-8.7) 10/24/21 22:13 Albumin 4.0 g/dL (3.5-5.2) 10/24/21 22:13 Globulin 2.9 g/dL (1.3-4.6) 10/24/21 22:13 Lipase 55 U/L (13-60) 10/24/21 22:13 Salicylates < 0.3 mg/dL (3-10) L 10/24/21 22:13 Acetaminophen < 5.0 ug/mL (10-30) L 10/24/21 22:13 Acetaminophen Cancelled 10/24/21 22:13 Ethyl Alcohol 344 mg/dL (0-10) H* 10/25/21 04:25 Discharge Plan Discharge Patient Disposition: Home Clinical Impression: Depression with suicidal ideation, Asthma exacerbation in COPD Condition: Stable Prescriptions: New doxycycline hyclate 100 mg capsule 100 mg PO BID 10 Days Qty: 20 0RF Medrol (Ashiwn) 4 mg tablets,dose pack See Rx Instructions .ROUTE .COMPLEX Qty: 21 0RF Rx Instructions: orally per package directions albuterol sulfate 90 mcg/actuation HFA aerosol inhaler 2 inh INHALATION Q4H PRN (Reason: shortness of breath or wheezing) Qty: 18 0RF No Action (DME) Manohar Bernal See Rx Instructions .ROUTE .MEDSUPPLY Qty: 1 0RF Rx Instructions: As directed multivitamin Tablet 1 tab PO DAILY 0RF Opsumit 10 mg tablet 10 mg PO DAILY 0RF Eliquis 5 mg tablet 5 mg PO BID 0RF albuterol sulfate 90 mcg/actuation HFA aerosol inhaler 2 inh INHALATION Q4H PRN (Reason: shortness of breath or wheezing) Qty: 18 0RF sildenafil (pulm.hypertension) 20 mg tablet 20 mg PO TID 0RF Dovato 50-300 mg tablet 1 tab PO QAM 0RF potassium chloride 20 mEq tablet,ER particles/crystals 20 meq PO DAILY 0RF trazodone 150 mg tablet 150 mg PO BEDTIME 0RF mirtazapine 15 mg tablet 15 mg PO BEDTIME 0RF testosterone 20.25 mg/1.25 gram (1.62 %) gel in metered-dose pump 2 pump topical QAM 0RF nicotine (polacrilex) 2 mg Gum 2 mg buccal Q2H PRN (Reason: Withdrawal) Qty: 60 4RF nicotine 21 mg/24 hr Patch 24 Hour 1 patch transdermal DAILY Qty: 30 0RF sulfamethoxazole-trimethoprim 800-160 mg tablet 1 tab PO .MON,WED,FRI 0RF prednisolone acetate 1 % drops,suspension 2 drp ophthalmic (eye) BID 0RF Rx Instructions: right eye Mytesi 125 mg tablet,delayed release (DR/EC) 125 mg PO BID 0RF Discharge Orders: Discharge ED (Routine); Ordered 10/25/21 Ordered By: Glenn Dan Referrals: Rasheed Spivey MD [Primary Care Provider] - Discharge Diet: Usual diet Discharge Activity: Increase activity as tolerated Patient Instructions: Alcoholism, Alcohol Intoxication (ED), Abuse of Alcohol (ED), Opioid Safety Activity Restrictions/Additional Instructions: Follow-up with your primary care doctor within the next week. Recommend abstinence from alcohol Sign Out Sign Out Data: Patient Sign Out occurred on 10/25/21 at 05:48. Patient's care was discussed, and care was transferred from to Glenn Dan DO. Coding Level of Care Code ED Pipe Coremaker for Osmin Fwisra Exam Comprehensive
--- NOTE | 2021-10-24 21:43 | CTR_ITS ---
PROCEDURE INFORMATION: Exam: CT Head Without Contrast Exam date and time: 10/24/2021 10:32 PM Age: 61 years old Clinical indication: Altered mental status/memory loss; Other: ETOH; Additional info: Eval for pathologies TECHNIQUE: Imaging protocol: Computed tomography of the head without contrast. Radiation optimization: All CT scans at this facility use at least one of these dose optimization techniques: automated exposure control; mA and/or kV adjustment per patient size (includes targeted exams where dose is matched to clinical indication); or iterative reconstruction. COMPARISON: CT head wo con* [id number] 04/04/2021 3:12 PM RADIATION DOSE METRICS: Total DLP (mGy-cm): 918.55 FINDINGS: Brain: Normal. No hemorrhage. Unremarkable white matter. No mass effect. Cerebral ventricles: No ventriculomegaly. Paranasal sinuses: Visualized sinuses are unremarkable. No fluid levels. Mastoid air cells: Visualized mastoid air cells are well aerated. Bones/joints: Unremarkable. No acute fracture. Soft tissues: Unremarkable. Other findings: Examination is limited secondary to motion artifact which could obscure pathology, specially in the inferior portion of the scan. CT/CT head wo con* [id number] IMPRESSION: 1. Examination is limited secondary to motion artifact which could obscure pathology. 2. No acute intracranial findings.
[2021-10-24 21:47] VITALS: PULSE 105; RESP 24; TEMP 36.2; O2SAT 86; BMI 25.7
[2021-10-24] MEDS: diphenhydrAMINE 50 mg/mL SDV 1mL IM (21:49)
[2021-10-24] MEDS: LORazepam 2 mg/mL INJ 1 mL IM (21:49)
[2021-10-24] MEDS: haloperidol inj 5 mg/mL INJ 1 mL IM (21:49)
[2021-10-24 21:53] VITALS: PULSE 105; RESP 24; TEMP 36.2; O2SAT 86
[2021-10-24 22:20] LABS: Basophils # 0.1 10^3/uL (0.0-0.1); Basophils % 1.4 %; Eosinophils # 0.2 10^3/uL (0.0-0.8); Eosinophils % 2.7 %; Hematocrit 44.1 % (42.0-52.0); Hemoglobin 14.5 g/dL (11.7-16.6); Lymphocytes # 2.9 10^3/uL (0.8-4.8); Lymphocytes % 49.7 %; Mean Corpuscular HGB Conc 32.9 g/dL (30.0-36.0); Mean Corpuscular Hemoglobin 30.9 pg (28.0-34.0); Mean Corpuscular Volume 93.8 fl (80-94); Mean Platelet Volume 8.7 fL (7.4-10.4); Monocytes # 0.4 10^3/uL (0.2-0.9); Monocytes % 6.7 %; Neutrophils # 2.29 10^3/uL (1.8-7.7); Neutrophils % 39.3 %; Nucleated Red Blood Cells % 0 %; Platelet Count 157 10^3/cmm (130-400); Red Cell Distribution Width 13.1 % (12.1-15.1); White Blood Count 5.8 10^3/uL (4.0-10.0)
[2021-10-24 22:48] LABS: Acetaminophen < 5.0 ug/mL (10-30); Alanine Aminotransferase 13 U/L (0-41); Alkaline Phosphatase 119 IU/L (40-130); Aspartate Amino Transferase 30 U/L (0-40); Blood Urea Nitrogen 7 mg/dL (8-23); Calcium 8.5 mg/dL (8.5-10.5); Carbon Dioxide 22 mmol/L (22-29); Chloride 103 mmol/L (98-107); Globulin 2.9 g/dL (1.3-4.6); Glomerular Filtration Rate 86.1 mL/min (90-130); Glucose 88 mg/dL (65-115); Lipase 55 U/L (13-60); Osmolality Calculated 291 mOsm/kg (285-295); Salicylate < 0.3 mg/dL (3-10); Sodium 142 mmol/L (136-145); Total Bilirubin 0.3 mg/dL (0.15-1.2); Total Protein 6.9 g/dL (6.6-8.7)
[2021-10-24 22:49] LABS: Anion Gap 20.8 (5-19); Potassium 3.8 mmol/L (3.5-5.1)
[2021-10-24 22:56] LABS: Alcohol Level 537 mg/dL (0-10)
[2021-10-25] VITALS (9 sets, daily range): BP systolic 97–119; BP diastolic 71–82; PULSE 68–94; RESP 14–20; O2SAT 90–94
--- NOTE | 2021-10-25 02:27 | XRR_ITS ---
PROCEDURE INFORMATION: Exam: XR Chest Exam date and time: 10/25/2021 2:39 AM Age: 61 years old Clinical indication: Dyspnea; Additional info: SOB TECHNIQUE: Imaging protocol: XR of the chest. Views: 1 view. COMPARISON: CR XR chest 1V portable [id number] 07/18/2021 9:44 AM FINDINGS: Lungs: Moderate right basilar airspace opacity (atelectasis and/or consolidation), increased from prior study. Mild left basilar atelectasis, similar to prior study. Mild pulmonary edema, increased from prior study. Pleural spaces: No visible pneumothorax. Small right pleural effusion, increased from prior study. Heart/Mediastinum: Mild cardiomegaly, increased from prior study. Bones/joints: No emergent findings identified. XR/XR chest 1V portable [id number] IMPRESSION: 1. Moderate right basilar airspace opacity (atelectasis and/or consolidation), increased from prior study. 2. Mild pulmonary edema, increased from prior study. 3. Small right pleural effusion, increased from prior study.
[2021-10-25 05:19] LABS: Alcohol Level 344 mg/dL (0-10)
--- NOTE | 2021-10-25 07:00 | PC.NURSE ---
Patient in bed, received report for night RN, patient wears oxygen at night while sleeping patient has severe COPD. Patient vitals stable, no distress noted, breathing even and non-labored. Sitter at bedside.
--- NOTE | 2021-10-25 07:46 | PC.NURSE ---
Patient in bed, requested water, provider okay with that. Patient received water. Patient in bed, drowsy but awake. Vitals stable. Sitter at bedside.
--- NOTE | 2021-10-25 10:40 | PC.NURSE ---
Provider at bedside. patient stable, denies any needs at this time.
--- NOTE | 2021-10-25 11:15 | PC.NURSE ---
Addendum entered by Karen Marks RN 10/25/21 11:17: Patient requested we call [employer] This RN called [employer] and will be here around 1120 AM. patient ambulated with steady gait out of er. Patient has oxygen at home, states he is okay to go home at this time, denies SI, and states he will come back for help if he begins to have SI. orthopedic coder and patient aware and agreeable to plan Original Note: Patient requested we call [employer] This RN called [employer] and will be here around 1120 AM. patient ambulated with steady gait out of er. Patient has oxygen at home, states he is okay to go home at this time, denies SI, and states he will come back for help if he begins to have SI. orthopedic coder aware and agreeable to plan.
== END 2021-10-25 11:18 | disposition home or self-care (01) ==
PROVIDERS: Emergency Medicine; Emergency Provider Family Medicine; PCP Family Medicine
DX: F32.A Depression, unspecified (principal); R45.851 Suicidal ideations; J44.1 Chronic obstructive pulmonary disease with (acute) exacerbation
CPT/HCPCS: 70450; 71045; 80053; 80307; 83690; 85025; 96372; 99284; J1200; J1630; J2060

== ENCOUNTER 2021-11-16 01:22 | Inpatient (IN) | payer MEDICARE, MEDICAID, SELFPAY ==
[2021-11-16] VITALS (95 sets, daily range): BP systolic 79–159; BP diastolic 47–106; PULSE 76–105; RESP 10–25; TEMP 36.9–37.7; O2SAT 89–97; BMI 22.4
--- NOTE | 2021-11-16 01:24 | ECG_ITS ---
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 Measurements Intervals [place] Rate: 94 P: 56 IL: 163 QRS: 54 QRSD: 92 T: 66 QT: 408 QTc: 510 Interpretive Statements SINUS RHYTHM Compared to ECG 03/25/2021 02:27:20 No significant changes Electronically Signed On 11-16-2021 16:50:58 CDT by Josue Maier M.D. [id number]
--- NOTE | 2021-11-16 01:24 | XRR_ITS ---
PROCEDURE INFORMATION: Exam: XR Chest Exam date and time: 11/16/2021 1:29 AM Age: 61 years old Clinical indication: Other: Drug od; Patient HX: Drug overdose with ETOH. History of copd. TECHNIQUE: Imaging protocol: XR of the chest. Views: 1 view. COMPARISON: CR XR chest 1V portable [id number] 10/25/2021 2:39 AM FINDINGS: Lungs: No definite CHF/pulmonary edema. Mild interstitial prominence in the lower lungs, similar to prior exam. This may represent chronic scarring/fibrosis or atelectasis. Pneumonitis not excluded. Please correlate clinically. Visible lungs otherwise appear essentially clear. Pleural spaces: No visible pneumothorax. No definite pleural fluid. Heart/Mediastinum: Heart size is upper range of normal. Bones/joints: No significant acute finding. XR/XR chest 1V portable [id number] IMPRESSION: 1. Mild interstitial prominence in the lower lungs, see above discussion. 2. Other findings discussed above.
[2021-11-16 01:36] LABS: Basophils # 0.1 10^3/uL (0.0-0.1); Basophils % 1.9 %; Eosinophils # 0.1 10^3/uL (0.0-0.8); Hematocrit 46.1 % (42.0-52.0); Hemoglobin 15.5 g/dL (11.7-16.6); Lymphocytes # 2.4 10^3/uL (0.8-4.8); Lymphocytes % 50.5 %; Mean Corpuscular HGB Conc 33.6 g/dL (30.0-36.0); Mean Corpuscular Hemoglobin 30.8 pg (28.0-34.0); Mean Corpuscular Volume 91.7 fl (80-94); Mean Platelet Volume 8.8 fL (7.4-10.4); Monocytes # 0.5 10^3/uL (0.2-0.9); Neutrophils # 1.56 10^3/uL (1.8-7.7); Neutrophils % 33.2 %; Nucleated Red Blood Cells % 0 %; Platelet Count 222 10^3/cmm (130-400); Red Blood Count 5.03 10^6/uL (4.1-5.3); Red Cell Distribution Width 13.5 % (12.1-15.1); White Blood Count 4.7 10^3/uL (4.0-10.0)
[2021-11-16] MEDS: charcoal (sorbitol) 25 gm/120 mL UDC 50 GM PO (01:44)
[2021-11-16] MEDS: ondansetron 2 mg/ML SDV 2 mL 4 MG IVP (01:44)
[2021-11-16 01:52] LABS: INR 0.92 (0.8-1.2); Partial Thromboplastin Time 26.5 SECONDS (23.9-36.7)
--- NOTE | 2021-11-16 01:52 | W.ED.OVERDOS ---
HPI - Overdose General: Chief Complaint: Overdose Stated Complaint: OD Time Seen by Provider: 11/16/21 01:23 Source: EMS Mode of arrival: EMS Limitations: no limitations History of Present Illness: 61-year-old male that here after an overdose attempt. He states that he is going through a break-up and is had increasing depression. He states he been drinking heavily tonight is a daily drinker states he also took a large handful of 5 mg Eliquis tablets roughly 2 hours ago in an attempt to kill himself. Unsure how many Eliquis tablets he took EMS was only able to find 1 bottle he states that he is combined multiple of his bottles of Eliquis the bottle is had 60 prescribed but has roughly 100 and the bottles was hard to tell how many he actually took he states he took 1 handful. He is intoxicated little lethargic from his intoxication no other ingestions he states. Review of Systems Const: Denies: fever(s), chills, body aches or change in appetite Eyes: Denies: blurry vision or eye discomfort ENMT: Denies: throat pain or dental pain Card: Denies: chest pain Resp: Denies: dyspnea GI: Denies: abdominal pain, nausea, vomiting or diarrhea : Denies: dysuria Musc: Denies: neck pain or back pain Skin/Breast: Denies: rash Neuro: Denies: headache(s) Psych: Reports: depression and suicidal ideation Obey/Lymph: Denies: easy bruising All/Imm: Denies: urticaria PFSH ED PFSH: Medical History Alcohol use disorder Anorexia Atrial fibrillation Closed fractures involving multiple regions of right lower extremity Colon polyps COPD (chronic obstructive pulmonary disease) Severe COPD Deliberate medication overdose Depression Depressive disorder Diverticulitis / Diverticulosis GI bleed Was taken off Coumadin for a month in 2016 after a bleeding gastric ulcer, currently on Eliquis History of peptic ulcer disease HIV (human immunodeficiency virus infection) Hypogonadism Liver tumor Lymphoma 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 No evidence of recurrence, currently getting [employer] prophylaxis with intrathecal methotrexate with prophylactic radiation to right testicle, CHOP treatment Major depressive disorder Meningitis Orchialgia Posttraumatic stress disorder Pulmonary embolism DVT of right leg, 2009 Pulmonary hypertension After PE Suicide attempt Surgical History H/O colonoscopy 2001 -diverticulosis, colon polyps / 2005 -diverticulosis, small telangiectasia / 01/2016 -diverticulosis with intrinsic stenosis and sigmoid H/O esophagogastroduodenoscopy 2005 -reflux esophagitis, superficial gastric erosions with hemorrhagic gastritis, duodenitis /2008 -reflux esophagitis, gastritis, small chronic gastric ulcer H/O hemorrhoidectomy History of orchiectomy, unilateral L -- diffuse large B-cell lymphoma Family History Other No pertinent family history Social History Smoking and tobacco status: current every day smoker (pack a day) cigarettes Packs smoked per day: 1 Alcohol intake: current Lives independently: Yes Housing: House Physical Exam Const: COMMON NORMALS: patient oriented x3 and healthy appearing GENERAL APPEARANCE: in distress, ill appearing and odor of alcohol detected HENMT: COMMON NORMALS: normocephalic and atraumatic HEAD & SCALP: normocephalic and atraumatic Eye: COMMON NORMALS: Equal, round and reactive pupils present and EOMs intact bilaterally PUPIL: Yes Equal, round and reactive pupils present Neck/C-Spine: COMMON NORMALS: full ROM and supple Chest: COMMONS NORMALS: normal inspection of the chest and normal palpation of entire chest wall Resp: COMMON NORMALS: normal respiratory effort, No retractions, No use of accessory muscles and clear to auscultation bilaterally AUSCULTATION: clear to auscultation bilaterally Cardio: COMMON NORMALS: regular rate, regular rhythm and No murmurs present (Cardio) RATE: regular rate RHYTHM: regular rhythm GI: COMMON NORMALS: Normal to inspection, nondistended, normoactive bowel sounds present, Soft to palpation, non-tender and no masses PALPATION: Yes Soft to palpation Extremity: COMMON NORMALS: normal to inspection and full ROM Neuro: COMMON NORMALS: patient oriented x3, moves all extremities and no focal motor deficits Psych: COMMON NORMALS: mental status grossly normal and cooperative THOUGHT CONTENT: Yes Suicidality present Skin: COMMON NORMALS: no rashes or lesions noted and no wounds GENERAL SKIN EXAM: no rashes or lesions noted Course Vital Signs: Vital signs: Vital Signs Pulse Rate 96 11/16/21 02:04 Respiratory Rate 20 H 11/16/21 02:04 Blood Pressure 109/80 11/16/21 02:04 Pulse Oximetry 89 L 11/16/21 02:04 MDM - Overdose Medical Decision Making Patient presents here with overdose on Eliquis and a suicide attempt all with alcohol intoxication unsure how much Eliquis he took he is no bleeding at this time he has been well-appearing here patient was given charcoal I spoke to the hospitalist along with psychiatrist and will admit to the ICU at this time for further monitoring he is under a 96-hour hold as well Lab Data : 11/16/21 01:10 11/16/21 01:10 Laboratory Results WBC 4.7 10^3/uL (4.0-10.0) 11/16/21 01:10 RBC 5.03 10^6/uL (4.1-5.3) 11/16/21 01:10 Hgb 15.5 g/dL (11.7-16.6) 11/16/21 01:10 Hct 46.1 % (42.0-52.0) 11/16/21 01:10 MCV 91.7 fl (80-94) 11/16/21 01:10 MCH 30.8 pg (28.0-34.0) 11/16/21 01:10 MCHC 33.6 g/dL (30.0-36.0) 11/16/21 01:10 RDW 13.5 % (12.1-15.1) 11/16/21 01:10 Plt Count 222 10^3/cmm (130-400) 11/16/21 01:10 MPV 8.8 fL (7.4-10.4) 11/16/21 01:10 Neut % (Auto) 33.2 % 11/16/21 01:10 Lymph % (Auto) 50.5 % 11/16/21 01:10 Roosevelt % (Auto) 11.0 % 11/16/21 01:10 Eos % (Auto) 3.0 % 11/16/21 01:10 Baso % (Auto) 1.9 % 11/16/21 01:10 Neut # (Auto) 1.56 10^3/uL (1.8-7.7) L 11/16/21 01:10 Lymph # (Auto) 2.4 10^3/uL (0.8-4.8) 11/16/21 01:10 Roosevelt # (Auto) 0.5 10^3/uL (0.2-0.9) 11/16/21 01:10 Eos # (Auto) 0.1 10^3/uL (0.0-0.8) 11/16/21 01:10 Baso # (Auto) 0.1 10^3/uL (0.0-0.1) 11/16/21 01:10 Nucleated RBC % (auto) 0 % 11/16/21 01:10 Nucleated RBCs # 0.0 /100WBC 11/16/21 01:10 PT 12.70 SECONDS (12.1-14.9) 11/16/21 01:10 INR 0.92 (0.8-1.2) 11/16/21 01:10 APTT 26.5 SECONDS (23.9-36.7) 11/16/21 01:10 Sodium 141 mmol/L (136-145) 11/16/21 01:10 Potassium 3.9 mmol/L (3.5-5.1) 11/16/21 01:10 Chloride 103 mmol/L (98-107) 11/16/21 01:10 Carbon Dioxide 22 mmol/L (22-29) 11/16/21 01:10 Anion Gap 19.9 (5-19) H 11/16/21 01:10 BUN 4 mg/dL (8-23) L 11/16/21 01:10 Creatinine 0.8 mg/dL (0.7-1.2) 11/16/21 01:10 GFR Calculation 98.6 mL/min (90-130) 11/16/21 01:10 Glucose 111 mg/dL (65-115) 11/16/21 01:10 Calculated Osmolality 290 mOsm/kg (285-295) 11/16/21 01:10 Calcium 7.9 mg/dL (8.5-10.5) L 11/16/21 01:10 Total Bilirubin 0.3 mg/dL (0.15-1.2) 11/16/21 01:10 AST 26 U/L (0-40) 11/16/21 01:10 ALT 14 U/L (0-41) 11/16/21 01:10 Alkaline Phosphatase 121 IU/L (40-130) 11/16/21 01:10 Total Protein 8.1 g/dL (6.6-8.7) 11/16/21 01:10 Albumin 4.2 g/dL (3.5-5.2) 11/16/21 01:10 Globulin 3.9 g/dL (1.3-4.6) 11/16/21 01:10 Salicylates < 0.3 mg/dL (3-10) L 11/16/21 01:10 Acetaminophen < 5.0 ug/mL (10-30) L 11/16/21 01:10 Ethyl Alcohol 306 mg/dL (0-10) H* 11/16/21 01:10 EKG Data EKG 1: I personally reviewed and interpreted this EKG as follows: EKG interpretation date: 11/16/21 EKG interpretation time: : Interpretation: Normal sinus rhythm heart rate [address] or T wave normalities QRS 92 QTC 459 Critical Care Time Critical Care Time: Critical Care Time: Yes Total Critical Care Time: 40 Attestation: The high probability of a clinically significant, sudden or life threatening deterioration of the patient'ssystem(s) required my full and direct attention, intervention and personal management. The critical care time is as shown. This time is in addition to time spent performing any reported procedures but includes the following: [x] Data and vital sign review and interpretation [x] Patient assessment, examination and intervention [x] Documentation [x] Medication orders and management Discharge Plan Discharge Patient Disposition: Admitted As Inpatient Clinical Impression: Overdose, Alcohol intoxication Condition: Stable Prescriptions: No Action (DME) Manohar Bernal See Rx Instructions .ROUTE .MEDSUPPLY Qty: 1 0RF Rx Instructions: As directed multivitamin Tablet 1 tab PO DAILY 0RF Opsumit 10 mg tablet 10 mg PO DAILY 0RF Eliquis 5 mg tablet 5 mg PO BID 0RF albuterol sulfate 90 mcg/actuation HFA aerosol inhaler 2 inh INHALATION Q4H PRN (Reason: shortness of breath or wheezing) Qty: 18 0RF sildenafil (pulm.hypertension) 20 mg tablet 20 mg PO TID 0RF Dovato 50-300 mg tablet 1 tab PO QAM 0RF potassium chloride 20 mEq tablet,ER particles/crystals 20 meq PO DAILY 0RF trazodone 150 mg tablet 150 mg PO BEDTIME 0RF mirtazapine 15 mg tablet 15 mg PO BEDTIME 0RF testosterone 20.25 mg/1.25 gram (1.62 %) gel in metered-dose pump 2 pump topical QAM 0RF nicotine (polacrilex) 2 mg Gum 2 mg buccal Q2H PRN (Reason: Withdrawal) Qty: 60 4RF nicotine 21 mg/24 hr Patch 24 Hour 1 patch transdermal DAILY Qty: 30 0RF sulfamethoxazole-trimethoprim 800-160 mg tablet 1 tab PO .MON,WED,FRI 0RF prednisolone acetate 1 % drops,suspension 2 drp ophthalmic (eye) BID 0RF Rx Instructions: right eye Mytesi 125 mg tablet,delayed release (DR/EC) 125 mg PO BID 0RF Medrol (Ashwin) 4 mg tablets,dose pack See Rx Instructions .ROUTE .COMPLEX Qty: 21 0RF Rx Instructions: orally per package directions albuterol sulfate 90 mcg/actuation HFA aerosol inhaler 2 inh INHALATION Q4H PRN (Reason: shortness of breath or wheezing) Qty: 18 0RF Referrals: Rasheed Spivey MD [Primary Care Provider] - Coding Level of Care Code ED Freight Elevator Erector for Chg Fwd Exam Comprehensive
[2021-11-16 01:55] LABS: Alanine Aminotransferase 14 U/L (0-41); Albumin Level 4.2 g/dL (3.5-5.2); Alkaline Phosphatase 121 IU/L (40-130); Anion Gap 19.9 (5-19); Aspartate Amino Transferase 26 U/L (0-40); Blood Urea Nitrogen 4 mg/dL (8-23); Calcium 7.9 mg/dL (8.5-10.5); Carbon Dioxide 22 mmol/L (22-29); Chloride 103 mmol/L (98-107); Globulin 3.9 g/dL (1.3-4.6); Glomerular Filtration Rate 98.6 mL/min (90-130); Glucose 111 mg/dL (65-115); Osmolality Calculated 290 mOsm/kg (285-295); Potassium 3.9 mmol/L (3.5-5.1); Sodium 141 mmol/L (136-145); Total Bilirubin 0.3 mg/dL (0.15-1.2); Total Protein 8.1 g/dL (6.6-8.7)
[2021-11-16 02:00] LABS: Acetaminophen < 5.0 ug/mL (10-30); Salicylate < 0.3 mg/dL (3-10)
[2021-11-16 02:01] LABS: Alcohol Level 306 mg/dL (0-10)
--- NOTE | 2021-11-16 03:10 | PC.NURSE ---
poison control this nurse called poison control at approx 0150 on 11/16/21 and spoke with erum. erum stated to instruct pt for such things as 'not falling down the stairs' and it has a 'ceiling effect'. pt has a 3-4 hour peak. and a half life of 12 hours.
--- NOTE | 2021-11-16 04:00 | P.HP_ITS ---
Providers/Chief Complaint Primary Care Provider: Rasheed Spivey MD Chief Complaint: OD History of Present Illness Flakito Almanzar is a 61 year old male with h/o atrial fib on eliquis, oxygen dependent COPD, alcohol dependence and abuse, HIV positive, and pulmonary HTN who presented to ED with intentional overdose of eliquis. Patient states his boyfriend broke up with him and he felt very depressed. He states he was trying to harm himself, but then states he did it to get attention. Evaluation in ED reveals fairly unremarkable labs, elevated alcohol level of 306 and tox screen is pending. Patient not able to recall how many pills of eliquis he took. Patient given thiamine and started on alcohol withdrawal protocol. Patient is admitted for further management and monitoring. Review of Systems General: Reports: 10 or more systems reviewed and unremarkable except in HPI and below Eyes: Denies: change in vision or blurry vision ENMT: Denies: throat pain or hoarseness Card: Denies: chest pain, palpitations or swelling of feet/ankles Resp: Denies: dyspnea or wheezing GI: Denies: abdominal pain, nausea, vomiting, diarrhea or hematochezia Musc: Denies: back pain or extremity pain Skin/Breast: Denies: rash, pruritus or skin tenderness Psych: Reports: depression, mood swings and suicidal ideation Medications/Allergies Home Medications Medication Instructions Recorded Confirmed Last Taken Type dolutegravir 50 mg-lamivudine 300 1 tab PO QAM 04/11/20 10/25/21 11/25/20 History mg tablet (Dovato) sildenafil (pulm.hypertension) 20 20 mg PO TID 04/11/20 10/25/21 11/25/20 History mg tablet albuterol sulfate 90 mcg/actuation 2 inh INHALATION Q4H PRN #18 gm 06/29/20 10/25/21 11/25/20 Rx aerosol inhaler apixaban 5 mg tablet (Eliquis) 5 mg PO BID 06/29/20 10/25/21 11/21/20 History macitentan 10 mg tablet (Opsumit) 10 mg PO DAILY 06/29/20 10/25/21 11/25/20 History multivitamin 1 tab PO DAILY 06/29/20 10/25/21 11/25/20 History mirtazapine 15 mg tablet 15 mg PO BEDTIME 02/10/21 10/25/21 03/11/21 History potassium chloride 20 mEq 20 meq PO DAILY 02/10/21 10/25/21 Unknown History tablet,extended release(part/cryst) testosterone 20.25 mg/1.25 gram 2 pump TOPICAL QAM 02/10/21 10/25/21 Unknown History (1.62 %) transdermal gel pump trazodone 150 mg tablet 150 mg PO BEDTIME 02/10/21 10/25/21 Unknown History nicotine (polacrilex) 2 mg gum 2 mg BUCCAL Q2H PRN #60 ea 02/12/21 10/25/21 Unknown Rx nicotine 21 mg/24 hr daily 1 patch TRANSDERMAL DAILY #30 ea 02/12/21 10/25/21 Unknown Rx transdermal patch Cam Walker #1 ea 02/24/21 10/25/21 Unknown Rx albuterol sulfate 90 mcg/actuation 2 inh INHALATION Q4H PRN #18 gm 10/25/21 Unknown Rx aerosol inhaler crofelemer 125 mg tablet,delayed 125 mg PO BID 10/25/21 10/25/21 Unknown History release (Mytesi) methylprednisolone 4 mg tablets in See Rx Instructions .ROUTE 10/25/21 Unknown Rx a dose pack (Medrol (Ashwin)) .COMPLEX #21 each prednisolone acetate 1 % eye 2 drp OPHTHALMIC (EYE) BID 10/25/21 10/25/21 Un known History drops,suspension sulfamethoxazole 800 1 tab PO .MON,WED,FRI 10/25/21 10/25/21 Unknown History mg-trimethoprim 160 mg tablet Allergies Allergy/AdvReac Type Severity Reaction Status Date / Time No Known Allergies Allergy Verified 10/25/21 08:52 PFSH Acute PFSH: Medical History (Updated 11/16/21 @ 04:15 by Rosalva Escobar MD) Alcohol use disorder Anorexia Atrial fibrillation Closed fractures involving multiple regions of right lower extremity Colon polyps COPD (chronic obstructive pulmonary disease) Severe COPD Deliberate medication overdose Depression Depressive disorder Diverticulitis / Diverticulosis GI bleed Was taken off Coumadin for a month in 2015 after a bleeding gastric ulcer, currently on Eliquis History of peptic ulcer disease HIV (human immunodeficiency virus infection) Hypogonadism Liver tumor Lymphoma 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 No evidence of recurrence, currently getting [employer] prophylaxis with intrathecal methotrexate with prophylactic radiation to right testicle, CHOP treatment Major depressive disorder Meningitis Orchialgia Posttraumatic stress disorder Pulmonary embolism DVT of right leg, 2010 Pulmonary hypertension After PE Suicide attempt Surgical History H/O colonoscopy 2001 -diverticulosis, colon polyps / 2005 -diverticulosis, small telangi ectasia / 01/2016 -diverticulosis with intrinsic stenosis and sigmoid H/O esophagogastroduodenoscopy 2005 -reflux esophagitis, superficial gastric erosions with hemorrhagic gastritis, duodenitis /2008 -reflux esophagitis, gastritis, small chronic gastric ulcer H/O hemorrhoidectomy History of orchiectomy, unilateral L -- diffuse large B-cell lymphoma Family History Other No pertinent family history Social History Smoking and tobacco status: current every day smoker (pack a day) cigarettes Packs smoked per day: 1 Alcohol intake: current Lives independently: Yes Housing: House Vitals/I&O/Wt Last Vital Signs Pulse 95 11/16/21 03:45 Resp 18 11/16/21 03:45 BP 93/59 11/16/21 03:45 Pulse Ox 95 11/16/21 03:45 Weight last 48 hrs Weight 75.008 kg Physical Exam Const: EXAM LIMITATIONS: other limitations OTHER: acutely intoxicated, chronically ill appearing male HENMT: HEAD & SCALP: normocephalic and atraumatic Neck/C-Spine: GENERAL: Yes normal visual inspection, Yes trachea midline, No lymphadenopathy and No Mass present (neck) Chest: CHEST: Yes Symmetrical chest wall rise Resp: EFFORT & INSPECTION: Yes able to speak in complete sentences, No tachypneic and No respiratory distress AUSCULTATION: clear to auscultation bilaterally Cardio: RATE: Other RHYTHM: abnormal rhythm OTHER: irregularly irregular GI: INSPECTION: Yes normal to inspection PALPATION: Yes Soft to palpation, No Tenderness to palpation present (GI), No Guarding due to palpation present (GI) and Yes No hepatosplenomegaly present : COMMON NORMALS: No no CVA tenderness Back/Pelvis: GENERAL BACK: Yes mass Extremity: GENERAL: No calf tenderness, No clubbing, No cyanosis and No edema Neuro: COMMON NORMALS: moves all extremities and no sensory deficits noted SENSORIUM/ORIENTATION: Yes Orientation impaired and Yes fluctuating sensorium SPEECH: speech normal Psych: APPEARANCE: Yes disheveled ATTITUDE: Yes Withdrawn affect present MOOD & AFFECT: Yes Blunted affect present Skin: GENERAL SKIN EXAM: no rashes or lesions noted and turgor normal Data : 11/16/21 01:10 11/16/21 01:10 A&P Assessment and plan (1) Overdose: Patient presents with intentional OD with eliquis- unknown amount. Patient will be placed on suicide precautions and monitored closely. Psych consult in AM Status: Acute Qualifiers: Encounter type: initial encounter Injury intent: intentional self-harm Qualified Code(s): T50.902A - Poisoning by unspecified drugs, medicaments and biological substances, intentional self-harm, initial encounter (2) Alcohol intoxication: Alcohol level 306. Intoxicated. [facility] protocol Recd thiamine Status: Acute (3) Major depressive disorder, recurrent: Psych eval requested Status: Chronic (4) Alcohol dependence: as noted above. Has long h/o alcohol abuse and dependence Supportive care and management Status: Chronic (5) Atrial fibrillation: Patient on eliquis- on hold currently Rate controlled Status: Acute (6) HIV (human immunodeficiency virus infection): Patient's home meds need to be updated and resumed Status: Acute Qualifiers: HIV symptom status: asymptomatic, with no history of HIV-related illness Qualified Code(s): Z21 - Asymptomatic human immunodeficiency virus [HIV] infection status (7) COPD (chronic obstructive pulmonary disease): Patient on 5 L supplemental oxygen at home- Continue Albuterol inhaler prn Status: Acute Attestations Medical Necessity Statement*: Anticipated stay greater than 2 midnites in [facility] with intentional overdose with eliquis, major depressive disorder and alcohol intoxication. Patient requires close monitoring and treatment for alcohol withdrawal, suicide precautions and psychiatry evaluation Coding Level of Care Code Acute Rcp for Chg Fwd History Expanded Problem Focused Exam Detailed Medical Decision Making Moderate Complexity Diagnoses Overdose T50.902A Encounter type: initial encounter Injury intent: intentional self-harm Alcohol intoxication F10.929 Major depressive disorder, recurrent F33.9 Alcohol dependence F10.20 Atrial fibrillation I48.91 HIV (human immunodeficiency virus infection) Z21 HIV symptom status: asymptomatic, with no history of HIV-related illness COPD (chronic obstructive pulmonary disease) J44.9
--- NOTE | 2021-11-16 04:50 | PC.NURSE ---
pt assessment pt very uncooperative at this time. wants us to leave him covered up and get him some food.
[2021-11-16] MEDS: sodium chloride 0.9% 1,000 ML 999 ML IV ×2 (05:41→07:22)
[2021-11-16 07:14] LABS: Basophils # 0.1 10^3/uL (0.0-0.1); Basophils % 2.4 %; Eosinophils # 0.1 10^3/uL (0.0-0.8); Eosinophils % 3.8 %; Hemoglobin 13.7 g/dL (11.7-16.6); Lymphocytes # 1.2 10^3/uL (0.8-4.8); Lymphocytes % 42.9 %; Mean Corpuscular HGB Conc 32.6 g/dL (30.0-36.0); Mean Corpuscular Hemoglobin 30.9 pg (28.0-34.0); Mean Corpuscular Volume 94.6 fl (80-94); Mean Platelet Volume 8.8 fL (7.4-10.4); Monocytes # 0.4 10^3/uL (0.2-0.9); Monocytes % 14.3 %; Neutrophils # 1.04 10^3/uL (1.8-7.7); Neutrophils % 36.3 %; Nucleated Red Blood Cells % 0 %; Platelet Count 191 10^3/cmm (130-400); Red Blood Count 4.44 10^6/uL (4.1-5.3); Red Cell Distribution Width 13.6 % (12.1-15.1); White Blood Count 2.9 10^3/uL (4.0-10.0)
[2021-11-16 07:34] LABS: Anion Gap 14.8 (5-19); Blood Urea Nitrogen 4 mg/dL (8-23); Carbon Dioxide 23 mmol/L (22-29); Chloride 107 mmol/L (98-107); Glucose 91 mg/dL (65-115); Osmolality Calculated 288 mOsm/kg (285-295); Potassium 3.8 mmol/L (3.5-5.1); Sodium 141 mmol/L (136-145)
[2021-11-16] MEDS: folic acid 1 MG, multivitamin inj 10 ML, thiamine 100 MG in sodium chloride 0.9% 1,000 ML 252.8 MG IV (08:29)
[2021-11-16] MEDS: nicotine 21 mg Patch 1 PATCH TRANSDERMA (09:02)
[2021-11-16] MEDS: multivitamin therapeutic Tablet 1 TAB PO (09:04)
[2021-11-16] MEDS: potassium chloride ER 20 mEq Tablet PO (09:04)
[2021-11-16] MEDS: folic acid 1 mg Tablet PO (09:04)
[2021-11-16] MEDS: pantoprazole DR 40 mg Tablet PO (09:04)
[2021-11-16] MEDS: thiamine 100 mg Tablet PO (09:04)
--- NOTE | 2021-11-16 09:17 | PC.PHAR ---
pt unable to verify medications-medications entered are meds that the pharmacy has filled recently and what was on previous entered med list
--- NOTE | 2021-11-16 09:50 | P.PN_ITS ---
Subjective Subjective: Patient was seen and examined this morning, currently is complaining of feeling as if he is going into withdrawal Patient wants to drink, patient has been hypotensive even after 2 Ls normal saline bolus, he has been started on banana bag, he has also been placed on Levophed, continue to be on CIWA protocol Medications: Medication Review Details: Generic Name Dose Route Start Last Admin Trade Name Julien PRN Reason Stop Dose Admin Folic Acid 1 mg 11/16/21 09:00 11/16/21 09:04 Folic Acid 1 Mg Tablet PO 1 mg DAILY GRACIELA Administration Folic Acid 1 mg/ M ultivitamins 1,011.2 mls @ 252 .8 mls/hr 11/16/21 08:45 11/16/21 08:29 10 ml/ Thiamine HC l 100 mg/ IV 11/16/21 12:44 252.8 mls/hr Sodium Chloride ONCE ONE Administration Norepinephrine Bit artrate 4 mg 254 mls @ 0 mls/h r 11/16/21 08:45 11/16/21 09:18 / Dextrose IV 2 mcg/min .Q0M GRACIELA 7.62 mls/hr Administration Protocol Per Protocol Multivitamins Ther apeutic 1 tab 11/16/21 09:00 11/16/21 09:04 Multivitamin The rapeutic Tablet PO 1 tab DAILY GRACIELA Administration Nicotine 1 patch 11/16/21 09:00 11/16/21 09:02 Nicotine 21 Mg P atch TRANSDERMA 1 patch DAILY GRACIELA Administration Pantoprazole Sodiu m 40 mg 11/16/21 09:00 11/16/21 09:[address] 40 Mg Tablet PO 40 mg DAILY GRACIELA Administration Potassium Chloride 20 meq 11/16/21 09:00 11/16/21 09:04 Potassium Chlori de Er 20 Meq Table t PO 20 meq DAILY GRACIELA Administration Thiamine Mononitra te 100 mg 11/16/21 09:00 11/16/21 09:04 Thiamine 100 Mg Tablet PO 100 mg DAILY GRACIELA Administration Vitals/I&O/Wt Last Vital Signs Temp 99.8 F H 11/16/21 06:00 Pulse 86 11/16/21 09:46 Resp 13 11/16/21 09:46 BP 95/56 11/16/21 09:46 Pulse Ox 94 11/16/21 09:46 11/15/21 11/16/2122 22:59 06:59 14:59 Intake Total 1999 Balance 1999 Weight last 48 hrs Weight 75.008 kg Physical Exam Const: COMMON NORMALS: patient oriented x3 HENMT: COMMON NORMALS: normocephalic and atraumatic HEAD & SCALP: normocephalic and atraumatic Eye: GENERAL EYE: appearance normal, both eyes and all related structures Chest: COMMONS NORMALS: normal inspection of the chest and normal palpation of entire chest wall CHEST: Yes Symmetrical chest wall rise Resp: COMMON NORMALS: normal respiratory effort, No retractions, No use of accessory muscles and clear to auscultation bilaterally EFFORT & INSPECTION: Yes symmetric chest movement AUSCULTATION: clear to auscultation bilaterally Cardio: COMMON NORMALS: regular rate, regular rhythm, S1 normal heart sound present, S2 normal heart sound present, No gallops present (Cardio), No murmurs present (Cardio), No rub (Cardio) and Peripheral pulses 2+ throughout RATE: regular rate RHYTHM: regular rhythm HEART SOUNDS: S1 normal heart sound present and S2 normal heart sound present PERIPHERAL PULSES: Peripheral pulses 2+ throughout GI: COMMON NORMALS: Normal to inspection, nondistended, normoactive bowel sounds present, Soft to palpation, non-tender, No hepatosplenomegaly present and no masses AUSCULTATION: Yes normoactive bowel sounds PALPATION: Yes Soft to palpation and Yes No hepatosplenomegaly present RECTAL EXAM: Yes deferred Extremity: COMMON NORMALS: no clubbing, cyanosis or edema and no pedal edema Neuro: COMMON NORMALS: patient oriented x3 Data : 11/16/21 11:05 11/16/21 07:06 A&P Assessment and plan (1) HIV (human immunodeficiency virus infection): Status: Acute Qualifiers: HIV symptom status: asymptomatic, with no history of HIV-related illness Qualified Code(s): Z21 - Asymptomatic human immunodeficiency virus [HIV] infection status (2) COPD (chronic obstructive pulmonary disease): Status: Acute (3) Atrial fibrillation: Status: Acute (4) Overdose: Status: Acute Qualifiers: Encounter type: initial encounter Injury intent: intentional self-harm Qualified Code(s): T50.902A - Poisoning by unspecified drugs, medicaments and biological substances, intentional self-harm, initial encounter (5) Alcohol intoxication: Status: Acute Plan 61 year old male with PMH of atrial fib on eliquis, COPD on home oxygen, alcohol dependence and abuse, HIV positive, and pulmonary HTN who presented to ED with intentional overdose of eliquis. #Intentional drug overdose: Patient presented with Eliquis overdose , currently he does not recall how many tablets he took. S/p: Activated charcoal H&H is stable Psychiatry on board Currently on 96-hour hold History of atrial fibrillation: Currently heart rate is well controlled Continue to monitor on telemetry We will resume Eliquis after monitoring of H&H #COPD Currently not in exacerbation Albuterol sulfate inhaler as needed Supplemental oxygen as needed #Hypovolemic shock: Likely secondary hypovolemia secondary to alcohol abuse: 3 Ls fluid bolus Transiently on Levophed Follow blood culture Urine culture #Alcohol intoxication: Blood alcohol level: 306 Currently on CIWA protocol, continue to monitor for withdrawal Banana bag Thiamine folic acid multivitamin Aspiration precaution Fall precaution We will [place] regarding alcohol abuse #HIV No acute intervention Will refer to infectious disease doctor as outpatient #Pulmonary hypertension: Pulmonary follow-up as an outpatient CODE STATUS: Full code #DVT prophylaxis: On SCDs Attestations Medical Necessity Statement*: Patient needs to be in hospital for management of intentional drug overdose. Time Spent in Patient Care: Greater than 35 minutes (>than 50% of time spent in counselling and/or direct pt care on unit) . Critical Care Time: The high probability of a clinically significant, sudden or life threatening deterioration of the patient's [] system(s) required my full and direct attention, intervention and personal management. The critical care time is as shown. 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
--- NOTE | 2021-11-16 10:17 | PC.NURSE ---
Banana bag infusion rate reduced to 125 ml/hr per verbal order admitting physician.
[2021-11-16 11:22] LABS: Basophils # 0.1 10^3/uL (0.0-0.1); Eosinophils # 0.1 10^3/uL (0.0-0.8); Eosinophils % 2.9 %; Hematocrit 40.6 % (42.0-52.0); Hemoglobin 13.4 g/dL (11.7-16.6); Lymphocytes # 1.1 10^3/uL (0.8-4.8); Lymphocytes % 35.2 %; Mean Platelet Volume 8.8 fL (7.4-10.4); Monocytes # 0.5 10^3/uL (0.2-0.9); Monocytes % 15.6 %; Neutrophils # 1.35 10^3/uL (1.8-7.7); Nucleated Red Blood Cells % 0 %; Platelet Count 184 10^3/cmm (130-400); Red Blood Count 4.32 10^6/uL (4.1-5.3); Red Cell Distribution Width 13.4 % (12.1-15.1); White Blood Count 3.1 10^3/uL (4.0-10.0)
[2021-11-16] MEDS: LORazepam 2 mg/mL INJ 1 mL IVP ×3 (11:25→20:10)
--- NOTE | 2021-11-16 13:42 | PC.NURSE ---
Patient arrived to ICU from ED. 1:1 sitter bedside with patient due to 96 hr hold. V/S WNL.
--- NOTE | 2021-11-16 17:46 | PC.NURSE ---
Diet advanced as tolerated. Tolerating full meals. 1:1 sitter still bedside
[2021-11-16 20:06] LABS: Amphetamines Screen Urine Negative (Negative); Barbiturates Screen Urine Negative (Negative); Benzodiazepines Screen Urine Positive (Negative); Cocaine Screen Urine Negative (Negative); Opiate Screen Urine Negative (Negative); PCP Screen Urine Negative (Negative); THC Screen Urine Negative (Negative)
[2021-11-16] MEDS: acetaminophen 325 mg Tablet 650 MG PO (22:32)
[2021-11-17] VITALS (43 sets, daily range): BP systolic 97–152; BP diastolic 64–113; PULSE 69–104; RESP 11–26; TEMP 36.6–36.8; O2SAT 88–98
[2021-11-17] MEDS: LORazepam 2 mg/mL INJ 1 mL IVP ×3 (00:29→08:30)
[2021-11-17 05:32] LABS: Basophils # 0.1 10^3/uL (0.0-0.1); Basophils % 1.1 %; Eosinophils # 0.2 10^3/uL (0.0-0.8); Eosinophils % 2.8 %; Hematocrit 44.1 % (42.0-52.0); Hemoglobin 14.3 g/dL (11.7-16.6); Lymphocytes # 1.6 10^3/uL (0.8-4.8); Lymphocytes % 27.6 %; Mean Corpuscular HGB Conc 32.4 g/dL (30.0-36.0); Mean Corpuscular Hemoglobin 30.8 pg (28.0-34.0); Mean Platelet Volume 8.9 fL (7.4-10.4); Monocytes # 0.7 10^3/uL (0.2-0.9); Monocytes % 12.9 %; Neutrophils # 3.12 10^3/uL (1.8-7.7); Neutrophils % 55.2 %; Nucleated Red Blood Cells % 0 %; Platelet Count 184 10^3/cmm (130-400); Red Blood Count 4.64 10^6/uL (4.1-5.3); Red Cell Distribution Width 13.3 % (12.1-15.1); White Blood Count 5.7 10^3/uL (4.0-10.0)
[2021-11-17 05:54] LABS: Alanine Aminotransferase 12 U/L (0-41); Albumin Level 3.6 g/dL (3.5-5.2); Alkaline Phosphatase 113 IU/L (40-130); Anion Gap 15.5 (5-19); Aspartate Amino Transferase 20 U/L (0-40); Blood Urea Nitrogen 7 mg/dL (8-23); Calcium 8.9 mg/dL (8.5-10.5); Carbon Dioxide 22 mmol/L (22-29); Chloride 101 mmol/L (98-107); Globulin 3.4 g/dL (1.3-4.6); Glomerular Filtration Rate 137.4 mL/min (90-130); Glucose 90 mg/dL (65-115); Magnesium 2.1 mg/dL (1.7-2.3); Osmolality Calculated 278 mOsm/kg (285-295); Potassium 3.5 mmol/L (3.5-5.1); Sodium 135 mmol/L (136-145); Total Bilirubin 0.4 mg/dL (0.15-1.2)
[2021-11-17] MEDS: nicotine 21 mg Patch 1 PATCH TRANSDERMA (08:10)
[2021-11-17] MEDS: pantoprazole DR 40 mg Tablet PO (08:13)
[2021-11-17] MEDS: potassium chloride ER 20 mEq Tablet PO (08:13)
[2021-11-17] MEDS: thiamine 100 mg Tablet PO (08:13)
[2021-11-17] MEDS: folic acid 1 mg Tablet PO (08:13)
[2021-11-17] MEDS: multivitamin therapeutic Tablet 1 TAB PO (08:13)
[2021-11-17] MEDS: LORazepam 2 mg Tablet PO ×4 (10:35→20:46)
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
--- NOTE | 2021-11-17 11:25 | W.PM.NPUH&PS ---
Providers/Chief Complaint Admitting Physician: Rosalva Escobar MD Primary Care Provider: Rasheed Spivey MD Chief Complaint: OD HPI NPU History of Present Illness Flakito Almanzar is a 61 year old male who presented to the emergency department with the following report: Chief Complaint: Overdose Stated Complaint: OD Time Seen by Provider: 11/16/21 01:23 Source: EMS Mode of arrival: EMS Limitations: no limitations History of Present Illness: 61-year-old male that here after an overdose attempt. He states that he is going through a break-up and is had increasing depression. He states he been drinking heavily tonight is a daily drinker states he also took a large handful of 5 mg Eliquis tablets roughly 2 hours ago in an attempt to kill himself. Unsure how many Eliquis tablets he took EMS was only able to find 1 bottle he states that he is combined multiple of his bottles of Eliquis the bottle is had 60 prescribed but has roughly 100 and the bottles was hard to tell how many he actually took he states he took 1 handful. He is intoxicated little lethargic from his intoxication no other ingestions he states. He was admitted to the ICU for definitive treatment of those issues. He was monitored in the ICU and then transferred to the neuropsychiatric unit for definitive treatment of a psychiatric concerns. He presents today having had improvement of 11 inpatient stays in the last 2 years for intoxication depression and suicidality. He also has multiple ICU stints after either toxic alcohol levels or suicidal gestures/attempts. He presents in transfer after a reported suicide attempt. He presents today as he usually does saying that I am ready to discharge. He reports that he is currently back to daily drinking but reports that this was not a suicide attempt but a attempt to get attention from his significant other who reports was wanting to not be together. We discussed that unfortunately it worked and his significant other suppose he wants to be back together. He denies any changes from his last hospitalizations. He continues to get treatment for his HIV which he has had for extremely long time. He continues to live alone in a house He continues to attend denominational and lean heavily on his denominational family. His mother who he reports is 76 continues to be a significant source of support for him. He reports that he is not desirous of any aggressive treatment for his addiction and denies any need for any changes in his medication for his mental health concerns. Discussed the risk benefits and alternatives of monitoring him on his 96-hour hold for couple of days to ensure safety and then discharge when safe and indicated. Meds NPU Home Medications Medication Instructions Recorded Confirmed Last Taken Type dolutegravir 50 mg-lamivudine 300 1 tab PO QAM 04/11/20 11/16/21 11/25/20 History mg tablet (Dovato) sildenafil (pulm.hypertension) 20 20 mg PO TID 04/11/20 11/16/21 11/25/20 History mg tablet apixaban 5 mg tablet (Eliquis) 5 mg PO BID 06/29/20 11/16/21 11/21/20 History macitentan 10 mg tablet (Opsumit) 10 mg PO DAILY 06/29/20 11/16/21 11/25/20 History multivitamin 1 tab PO DAILY 06/29/20 11/16/21 11/25/20 History mirtazapine 15 mg tablet 15 mg PO BEDTIME 02/10/21 11/16/21 03/11/21 History testosterone 20.25 mg/1.25 gram 2 pump TOPICAL QAM 02/10/21 11/16/21 Unknown History (1.62 %) transdermal gel pump trazodone 150 mg tablet 150 - 300 mg PO BEDTIME 02/10/21 11/16/21 Unknown History Cam Walker #1 ea 02/24/21 11/16/21 Unknown Rx albuterol sulfate 90 mcg/actuation 2 inh INHALATION Q4H PRN #18 gm 10/25/21 11/16/21 Unknown Rx aerosol inhaler crofelemer 125 mg tablet,delayed 125 mg PO BID 10/25/21 11/16/21 Unknown History release (Mytesi) prednisolone acetate 1 % eye 1 drp OPHTHALMIC (EYE) BID 10/25/21 11/16/21 Unknown History drops,suspension sulfamethoxazole 800 1 tab PO .MON,WED,Sun10/25/21 11/16/21 Unknown History mg-trimethoprim 160 mg tablet Allergies Allergy/AdvReac Type Severity Reaction Status Date / Time No Known Allergies Allergy Verified 10/25/21 08:52 PFSH NPU PFSH: Medical History (Updated 11/18/21 @ 09:46 by Niko Bang MD) Alcohol use disorder Anorexia Atrial fibrillation Closed fractures involving multiple regions of right lower extremity Colon polyps COPD (chronic obstructive pulmonary disease) Severe COPD Deliberate medication overdose Depression Depressive disorder Diverticulitis / Diverticulosis GI bleed Was taken off Coumadin for a month in 2016 after a bleeding gastric ulcer, currently on Eliquis History of peptic ulcer disease HIV (human immunodeficiency virus infection) Hypogonadism Liver tumor Lymphoma 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 No evidence of recurrence, currently getting MANDOLIN REPAIR PERSON prophylaxis with intrathecal methotrexate with prophylactic radiation to right testicle, CHOP treatment Major depressive disorder Meningitis Orchialgia Posttraumatic stress disorder Pulmonary embolism DVT of right leg, 2009 Pulmonary hypertension After PE Suicide attempt Surgical History H/O colonoscopy 2001 -diverticulosis, colon polyps / 2005 -diverticulosis, small telangiectasia / 01/2016 -diverticulosis with intrinsic stenosis and sigmoid H/O esophagogastroduodenoscopy 2005 -reflux esophagitis, superficial gastric erosions with hemorrhagic gastritis, duodenitis /2008 -reflux esophagitis, gastritis, small chronic gastric ulcer H/O hemorrhoidectomy History of orchiectomy, unilateral L -- diffuse large B-cell lymphoma Family History Other No pertinent family history Social History Smoking and tobacco status: current every day smoker (pack a day) cigarettes Packs smoked per day: 1 Alcohol intake: current Lives independently: Yes Housing: House Mental Status Exam MSE Comments: This is a slender white male in hospital scrubs with limited grooming and adequate eye contact lying in bed with a nasal cannula in for his standing oxygen order. No abnormal movement except for psychomotor retardation.? Cooperative with exam in mild distress.? Speech was decreased rate and volume.? Mood described as better, affect subdued.? Thought process organized.? Thought content: Patient denied suicidal or homicidal ideation, there were no delusions reported or noted, he denies any auditory visual hallucinations.? Attention and concentration were limited and memory was unreliable but none were formally tested.? He is alert and oriented x3.? Insight and judgment are impaired and impulse control is impaired. Vitals/I&O/Wt Last Vital Signs Temp 97.9 F 11/17/21 00:00 Pulse 80 11/17/21 06:15 Resp 23 H 11/17/21 06:15 BP 110/76 11/17/21 06:15 Pulse Ox 91 11/17/21 06:15 11/16/21 11/16/21 11/17/21 14:59 22:59 06:59 Intake Total 2488.695 / 2488.695 1516.16 / 4004.855 480 / 4484.855 Output Total 1850 / 1850 1650 / 3500 Balance 2488.695 / 2488.695 -333.84 / 2154.855 -1170 / 984.855 Weight last 48 hrs Weight 75.008 kg Data NPU : 11/17/21 04:36 11/17/21 04:36 Micro: Microbiology 11/16/21 09:00 Blood Culture - Preliminary Blood SPECIMEN COLLECTED 11/16/21 08:50 Blood Culture - Preliminary Blood SPECIMEN COLLECTED Microbiology 11/16/21 09:00 Blood Blood Culture - Preliminary SPECIMEN COLLECTED 11/16/21 08:50 Blood Blood Culture - Preliminary SPECIMEN COLLECTED A&P Assessment and plan (1) HIV (human immunodeficiency virus infection): Status: Acute Qualifiers: HIV symptom status: asymptomatic, with no history of HIV-related illness Qualified Code(s): Z21 - Asymptomatic human immunodeficiency virus [HIV] infection status (2) COPD (chronic obstructive pulmonary disease): Status: Acute (3) Atrial fibrillation: Status: Acute (4) Overdose: Status: Acute Qualifiers: Encounter type: initial encounter Injury intent: intentional self-harm Qualified Code(s): T50.902A - Poisoning by unspecified drugs, medicaments and biological substances, intentional self-harm, initial encounter (5) Alcohol intoxication: Status: Acute (6) Major depressive disorder, recurrent: Status: Chronic (7) Alcohol use disorder, severe, dependence: Status: Acute (8) Alcohol withdrawal: Status: Acute Plan This is a 61-year-old white male with a long history of alcohol dependence, HIV, major depression with frequent hospitalizations with ICU stays and inpatient psychiatric treatment who presents as a transfer from the ICU with a 96-hour hold after conflict with his significant other while he was intoxicated reporting as usual that he is no longer suicidal and wants to leave as soon as possible. changes.. 1.? Continue current medication.? 2.? Continue every 15 minute checks for safety. 3.? Encourage individual, group and milieu therapies. 4.? Encourage sober living treatment after discharge in the inpatient program.? He continues to be resistant to inpatient resources for his alcohol addiction. Involuntary Hold Information 96 Hour Hold: 96 Hour Involuntary Admission: Yes 96 Hour Hold Ending Date: 03/18/21 96 Hour Hold Ending Time: 12:05 Attestations NPU Medical Necessity Statement*: Inpatient hospitalization is medically necessary and the clinically appropriate intervention at this time. We will monitor medication to make changes as indicated. Patient will be in the hospital for over two midnights. Likely length of stay 3 to 5 days. 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
--- NOTE | 2021-11-17 11:29 | P.PN_ITS ---
Subjective Subjective: Patient was seen and examined this morning,hb has remained stable, maintaining good MAP,has remained afebrile, saturating well on baseline home oxygen,CIWA protocol in place. Current plan is to transfer to npu. Medications: Medication Review Details: Generic Name Dose Route Start Last Admin Trade Name Julien PRN Reason Stop Dose Admin Folic Acid 1 mg 11/16/21 09:00 11/16/21 09:04 Folic Acid 1 Mg Tablet PO 1 mg DAILY GRACIELA Administration Folic Acid 1 mg/ M ultivitamins 1,011.2 mls @ 252 .8 mls/hr 11/16/21 08:45 11/16/21 08:29 10 ml/ Thiamine HC l 100 mg/ IV 11/16/21 12:44 252.8 mls/hr Sodium Chloride ONCE ONE Administration Norepinephrine Bit artrate 4 mg 254 mls @ 0 mls/h r 11/16/21 08:45 11/16/21 09:18 / Dextrose IV 2 mcg/min .Q0M GRACIELA 7.62 mls/hr Administration Protocol Per Protocol Multivitamins Ther apeutic 1 tab 11/16/21 09:00 11/16/21 09:04 Multivitamin The rapeutic Tablet PO 1 tab DAILY GRACIELA Administration Nicotine 1 patch 11/16/21 09:00 11/16/21 09:02 Nicotine 21 Mg P atch TRANSDERMA 1 patch DAILY GRACIELA Administration Pantoprazole Sodiu m 40 mg 11/16/21 09:00 11/16/21 09:[address] 40 Mg Tablet PO 40 mg DAILY GRACIELA Administration Potassium Chloride 20 meq 11/16/21 09:00 11/16/21 09:04 Potassium Chlori de Er 20 Meq Table t PO 20 meq DAILY GRACIELA Administration Thiamine Mononitra te 100 mg 11/16/21 09:00 11/16/21 09:04 Thiamine 100 Mg Tablet PO 100 mg DAILY GRACIELA Administration Vitals/I&O/Wt Last Vital Signs Temp 97.8 F 11/17/21 10:04 Pulse 95 11/17/21 10:04 Resp 17 11/17/21 10:04 BP 125/89 11/17/21 10:04 Pulse Ox 93 11/17/21 10:04 11/16/21 11/17/21 11/17/21 22:59 06:59 14:59 Intake Total 1516.16 / 4004.855 480 / 4484.855 360 / 360 Output Total 1850 / 1850 1650 / 3500 1200 / 1200 Balance -333.84 / 2154.855 -1170 / 984.855 -840 / -840 Weight last 48 hrs Weight 75.008 kg Physical Exam Const: COMMON NORMALS: patient oriented x3 HENMT: COMMON NORMALS: normocephalic and atraumatic HEAD & SCALP: normocephalic and atraumatic Eye: GENERAL EYE: appearance normal, both eyes and all related structures Chest: COMMONS NORMALS: normal inspection of the chest and normal palpation of entire chest wall CHEST: Yes Symmetrical chest wall rise Resp: COMMON NORMALS: normal respiratory effort, No retractions, No use of accessory muscles and clear to auscultation bilaterally EFFORT & INSPECTION: Yes symmetric chest movement AUSCULTATION: clear to auscultation bilaterally Cardio: COMMON NORMALS: regular rate, regular rhythm, S1 normal heart sound present, S2 normal heart sound present, No gallops present (Cardio), No murmurs present (Cardio), No rub (Cardio) and Peripheral pulses 2+ throughout RATE: r egular rate RHYTHM: regular rhythm HEART SOUNDS: S1 normal heart sound present and S2 normal heart sound present PERIPHERAL PULSES: Peripheral pulses 2+ throughout GI: COMMON NORMALS: Normal to inspection, nondistended, normoactive bowel sounds present, Soft to palpation, non-tender, No hepatosplenomegaly present and no masses AUSCULTATION: Yes normoactive bowel sounds PALPATION: Yes Soft to palpation and Yes No hepatosplenomegaly present RECTAL EXAM: Yes deferred Extremity: COMMON NORMALS: no clubbing, cyanosis or edema and no pedal edema Neuro: COMMON NORMALS: patient oriented x3 Data : 11/17/21 04:36 11/17/21 04:36 Micro: Microbiology 11/16/21 08:50 Blood Culture - Preliminary Blood NEGATIVE TO DATE 11/16/21 09:00 Blood Culture - Preliminary Blood NEGATIVE TO DATE A&P Assessment and plan (1) HIV (human immunodeficiency virus infection): Status: Acute Qualifiers: HIV symptom status: asymptomatic, with no history of HIV-related illness Qualified Code(s): Z21 - Asymptomatic human immunodeficiency virus [HIV] infection status (2) COPD (chronic obstructive pulmonary disease): Status: Acute (3) Atrial fibrillation: Status: Acute (4) Overdose: Status: Acute Qualifiers: Encounter type: initial encounter Injury intent: intentional self-harm Qualified Code(s): T50.902A - Poisoning by unspecified drugs, medicaments and biological substances, intentional self-harm, initial encounter (5) Alcohol intoxication: Status: Acute Plan 61 year old male with PMH of atrial fib on eliquis, COPD on home oxygen, alcohol dependence and abuse, HIV positive, and pulmonary HTN who presented to ED with intentional overdose of eliquis. #Intentional drug overdose: Patient presented with Eliquis overdose , currently he does not recall how many tablets he took. S/p: Activated charcoal H&H is stable Psychiatry on board Currently on 96-hour hold History of atrial fibrillation: Currently heart rate is well controlled Continue to monitor on telemetry H&H Stable Eliquis has been resumed. #COPD Currently not in exacerbation Albuterol sulfate inhaler as needed Supplemental oxygen as needed #Hypovolemic shock: Likely secondary hypovolemia secondary to alcohol abuse: 3 Ls fluid bolus Transiently on Levophed Follow blood culture Urine culture #Alcohol intoxication: Blood alcohol level: 306 Currently on CIWA protocol, continue to monitor for withdrawal Banana bag Thiamine folic acid multivitamin Aspiration precaution Fall precaution We will [place] regarding alcohol abuse #HIV No acute intervention Will refer to infectious disease doctor as outpatient #Pulmonary hypertension: Pulmonary follow-up as an outpatient CODE STATUS: Full code #DVT prophylaxis: On SCDs Attestations Medical Necessity Statement*: Patient is being transferred to NPU Coding Level of Care Code Acute Belt 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
[2021-11-17] MEDS: hyDROXYzine 25 mg Capsule 50 MG PO (13:25)
[2021-11-17 13:42] LABS: Bacillus cereus group Not Detected (NOT DETECT); Bacillus subtillis group Not Detected (NOT DETECT); Corynebacterium Not Detected (NOT DETECT); Cutibacterium acnes (P.acnes) Not Detected (NOT DETECT); Enterococcus Not Detected (NOT DETECT); Enterococcus faecalis Not Detected (NOT DETECT); Enterococcus faecium Not Detected (NOT DETECT); Lactobacillus species Not Detected (NOT DETECT); Listeria Not Detected (NOT DETECT); Listeria monocytogenes Not Detected (NOT DETECT); Micrococcus Not Detected (NOT DETECT); Pan Candida Not Detected (NOT DETECT); Pan Gram-Negative Not Detected (NOT DETECT); Staphylococcus epidermidis Not Detected (NOT DETECT); Staphylococcus lugdunensis Not Detected (NOT DETECT); Staphylococcus species Detected (NOT DETECT); Streptococcus agalactiae Not Detected (NOT DETECT); Streptococcus anginosus group Not Detected (NOT DETECT); Streptococcus pneumoniae Not Detected (NOT DETECT); Streptococcus pyogenes Not Detected (NOT DETECT); Streptococcus species Not Detected (NOT DETECT); mecA Not Detected (NOT DETECT); mecC Not Detected (NOT DETECT)
[2021-11-17] MEDS: OLANZapine 5 mg ODT PO (15:47)
--- NOTE | 2021-11-17 15:49 | PC.NURSE ---
Patient given Zyprexa 5 mg sl for psychosis. Patient has been up at nurses station asking for a phone number of a friend this morning. Mother informed the nurse tech that the friend has been for several years.
[2021-11-17] MEDS: apixaban 5 mg Tablet PO (20:46)
[2021-11-18 06:00] VITALS: BP 120/79; PULSE 80; RESP 18; TEMP 36.3; O2SAT 92
[2021-11-18] MEDS: nicotine 2 mg Gum BUCCAL ×6 (07:23→20:32)
[2021-11-18 08:00] VITALS: PULSE 100; RESP 18; O2SAT 93
[2021-11-18] MEDS: pantoprazole DR 40 mg Tablet PO (08:59)
[2021-11-18] MEDS: potassium chloride ER 20 mEq Tablet PO (08:59)
[2021-11-18] MEDS: folic acid 1 mg Tablet PO (08:59)
[2021-11-18] MEDS: apixaban 5 mg Tablet PO ×2 (08:59→20:33)
[2021-11-18 10:13] VITALS: PULSE 112; RESP 18; O2SAT 96
[2021-11-18] MEDS: thiamine 100 mg Tablet PO (10:21)
[2021-11-18] MEDS: multivitamin therapeutic Tablet 1 TAB PO (10:21)
[2021-11-18] MEDS: LORazepam 2 mg Tablet PO ×3 (10:22→20:32)
--- NOTE | 2021-11-18 10:23 | PC.NURSE ---
Pt scoring 20 on CIWA, Administered 2mg Ativan per protocol.
[2021-11-18 14:00] VITALS: BP 126/80; PULSE 112; RESP 18; TEMP 36.5; O2SAT 92
--- NOTE | 2021-11-18 15:49 | PC.NURSE ---
Pt scored a 16 on Ciwa scale, Nurse administered 2mg Ativan for detox symptoms.
--- NOTE | 2021-11-18 18:37 | W.PM.NPUPNS ---
Subjective NPU Subjective: Patient presents today as he has previous days resting for discharge reporting that he has things to do specifically to take care of his dogs. We discussed the fact that his 96-hour hold was up next week and that we certainly would be considering him leaving before then expecting to go home after a suicide attempt is unreasonable. We did find his keys and he was noted to have someone go and check in on the dogs. He reported eating and sleeping fine. Mental Status Exam MSE Comments: This is a slender white male in hospital scrubs with limited grooming and adequate eye contact lying in bed with a nasal cannula in for his standing oxygen order.? No abnormal movement except for psychomotor retardation.? Cooperative with exam in mild distress.? Speech was decreased rate and volume.? Mood described as better, affect subdued.? Thought process organized.? Thought content: Patient denied suicidal or homicidal ideation, there were no delusions reported or noted, he denies any auditory visual hallucinations.? Attention and concentration were limited and memory was unreliable but none were formally tested.? He is alert and oriented x3.? Insight and judgment are impaired and impulse control is impaired. Vitals/I&O/Wt Last Vital Signs Temp 97.6 F 11/18/21 20:13 Pulse 106 H 11/18/21 20:13 Resp 18 11/18/21 20:13 BP 102/66 11/18/21 20:13 Pulse Ox 98 11/18/21 20:13 Data NPU : 11/17/21 04:36 11/17/21 04:36 Micro: Microbiology 11/18/21 09:18 Blood Culture - Preliminary Blood 11/16/21 19:39 Urine Culture - Preliminary Urine,Clean Catch 11/18/21 09:16 Blood Culture - Preliminary Blood SPECIMEN COLLECTED Microbiology 11/18/21 09:18 Blood Blood Culture - Preliminary 11/16/21 19:39 Urine,Clean Catch Urine Culture - Preliminary 11/18/21 09:16 Blood Blood Culture - Preliminary SPECIMEN COLLECTED A&P Assessment and plan (1) Alcohol withdrawal: Status: Acute (2) Alcohol use disorder, severe, dependence: Status: Acute (3) HIV (human immunodeficiency virus infection): Status: Acute Qualifiers: HIV symptom status: asymptomatic, with no history of HIV-related illness Qualified Code(s): Z21 - Asymptomatic human immunodeficiency virus [HIV] infection status (4) COPD (chronic obstructive pulmonary disease): Status: Acute (5) Overdose: Status: Acute Qualifiers: Encounter type: initial encounter Injury intent: intentional self-harm Qualified Code(s): T50.902A - Poisoning by unspecified drugs, medicaments and biological substances, intentional self-harm, initial encounter (6) Alcohol intoxication: Status: Acute (7) Major depressive disorder, recurrent: Status: Chronic Plan This is a 61-year-old white male with a long history of alcohol dependence, HIV, major depression with frequent hospitalizations with ICU stays and inpatient psychiatric treatment who presents as a transfer from the ICU with a 96-hour hold after conflict with his significant other while he was intoxicated reporting as usual that he is no longer suicidal and wants to leave as soon as possible. 1.? Continue current medication.? 2.? Continue every 15 minute checks for safety. 3.? Encourage individual, group and milieu therapies. 4.? Encourage sober living treatment after discharge in the inpatient program.? He continues to be resistant to inpatient resources for his alcohol addiction. Involuntary Hold Information 96 Hour Hold: 96 Hour Involuntary Admission: Yes 96 Hour Hold Ending Date: 11/22/21 96 Hour Hold Ending Time: 01:46 Attestations NPU Medical Necessity Statement*: Inpatient hospitalization is medically necessary and the clinically appropriate intervention at this time. We will monitor medication to make changes as indicated. Likely length of stay 2-4 days. Coding Level of Care Code Acute Participant Administrator for Osmin Ordonez Diagnoses Alcohol withdrawal F10.239 Alcohol use disorder, severe, dependence F10.20 HIV (human immunodeficiency virus infection) Z21 HIV symptom status: asymptomatic, with no history of HIV-related illness COPD (chronic obstructive pulmonary disease) J44.9 Overdose T50.902A Encounter type: initial encounter Injury intent: intentional self-harm Alcohol intoxication F10.929 Major depressive disorder, recurrent F33.9
[2021-11-18 20:13] VITALS: BP 102/66; PULSE 106; RESP 18; TEMP 36.4; O2SAT 98
[2021-11-18] MEDS: trazodone 50 mg Tablet PO (20:33)
--- NOTE | 2021-11-19 03:45 | PC.NURSE ---
Lab called to notify of critical result on blood culture, Dr. Ramirez notified of results.
[2021-11-19 05:10] LABS: Bacillus cereus group Not Detected (NOT DETECT); Bacillus subtillis group Not Detected (NOT DETECT); Corynebacterium Not Detected (NOT DETECT); Cutibacterium acnes (P.acnes) Not Detected (NOT DETECT); Enterococcus Not Detected (NOT DETECT); Enterococcus faecalis Not Detected (NOT DETECT); Enterococcus faecium Not Detected (NOT DETECT); Lactobacillus species Not Detected (NOT DETECT); Listeria Not Detected (NOT DETECT); Listeria monocytogenes Not Detected (NOT DETECT); Micrococcus Not Detected (NOT DETECT); Pan Candida Not Detected (NOT DETECT); Pan Gram-Negative Not Detected (NOT DETECT); Staphylococcus epidermidis Detected (NOT DETECT); Staphylococcus lugdunensis Not Detected (NOT DETECT); Staphylococcus species Detected (NOT DETECT); Streptococcus agalactiae Not Detected (NOT DETECT); Streptococcus anginosus group Not Detected (NOT DETECT); Streptococcus pneumoniae Not Detected (NOT DETECT); Streptococcus pyogenes Not Detected (NOT DETECT); Streptococcus species Not Detected (NOT DETECT); mecA Detected (NOT DETECT); mecC Not Detected (NOT DETECT)
[2021-11-19 05:50] VITALS: BP 102/66; PULSE 106; RESP 18; TEMP 36.4; O2SAT 98
[2021-11-19] MEDS: nicotine 2 mg Gum BUCCAL ×4 (06:12→13:47)
[2021-11-19 06:23] VITALS: BP 120/80; PULSE 101; RESP 18; TEMP 36.8; O2SAT 92
[2021-11-19 08:00] VITALS: PULSE 110; RESP 16; O2SAT 97
[2021-11-19] MEDS: folic acid 1 mg Tablet PO (08:01)
[2021-11-19] MEDS: apixaban 5 mg Tablet PO (08:01)
[2021-11-19] MEDS: pantoprazole DR 40 mg Tablet PO (08:01)
[2021-11-19] MEDS: multivitamin therapeutic Tablet 1 TAB PO (08:01)
[2021-11-19] MEDS: LORazepam 2 mg Tablet PO (08:02)
[2021-11-19] MEDS: potassium chloride ER 20 mEq Tablet PO (08:02)
[2021-11-19] MEDS: thiamine 100 mg Tablet PO (08:02)
--- NOTE | 2021-11-19 15:41 | W.PM.NPUDCS ---
Diagnoses at Discharge Discharge Diagnosis (1) Alcohol withdrawal: Status: Resolved (2) Alcohol use disorder, severe, dependence: Status: Acute (3) HIV (human immunodeficiency virus infection): Status: Acute Qualifiers: HIV symptom status: asymptomatic, with no history of HIV-related illness Qualified Code(s): Z21 - Asymptomatic human immunodeficiency virus [HIV] infection status (4) COPD (chronic obstructive pulmonary disease): Status: Acute Permanent problem details: Severe COPD (5) Overdose: Status: Acute Qualifiers: Encounter type: initial encounter Injury intent: intentional self-harm Qualified Code(s): T50.902A - Poisoning by unspecified drugs, medicaments and biological substances, intentional self-harm, initial encounter (6) Alcohol intoxication: Status: Resolved (7) Major depressive disorder, recurrent: Status: Chronic Reason for Visit Reason for Visit: OD Brief History: History of Present Illness Flakito Almanzar is a 61 year old male who presented to the emergency department with the following report: Chief Complaint: Overdose Stated Complaint: OD Time Seen by Provider: 11/16/21 01:23 Source: EMS Mode of arrival: EMS Limitations: no limitations History of Present Illness:?? 61-year-old male that here after an overdose attempt.? He states that he is going through a break-up and is had increasing depression.? He states he been drinking heavily tonight is a daily drinker states he also took a large handful of 5 mg Eliquis tablets roughly 2 hours ago in an attempt to kill himself.? Unsure how many Eliquis tablets he took EMS was only able to find 1 bottle he states that he is combined multiple of his bottles of Eliquis the bottle is had 60 prescribed but has roughly 100 and the bottles was hard to tell how many he actually took he states he took 1 handful.? He is intoxicated little lethargic from his intoxication no other ingestions he states. He was admitted to the ICU for definitive treatment of those issues.? He was monitored in the ICU and then transferred to the neuropsychiatric unit for definitive treatment of a psychiatric concerns.? He presents today having had improvement of 11 inpatient stays in the last 2 years for intoxication depression and suicidality.? He also has multiple ICU stints after either toxic alcohol levels or suicidal gestures/attempts.? He presents in transfer after a reported suicide attempt.? He presents today as he usually does saying that I am ready to discharge.? He reports that he is currently back to daily drinking but reports that this was not a suicide attempt but a attempt to get attention from his significant other who reports was wanting to not be together.? We discussed that unfortunately it worked and his significant other suppose he wants to be back together.? He denies any changes from his last hospitalizations.? He continues to get treatment for his HIV which he has had for extremely long time.? He continues to live alone in a house? He continues to attend zoroastrianism and lean heavily on his zoroastrianism family.? His mother who he reports is 76 continues to be a significant source of support for him.? He reports that he is not desirous of any aggressive treatment for his addiction and denies any need for any changes in his medication for his mental health concerns.? Discussed the risk benefits and alternatives of monitoring him on his 96-hour hold for couple of days to ensure safety and then discharge when safe and indicated. Hospital Course Hospital Course He slowly acclimated to the individual, group and milieu therapies provided. The presentation was fairly typical for the patient. He presented intoxicated with some suicidal or para suicidal behaviors or gestures. He slowly managed his withdrawal with some moments of perceptual disturbance. After this he had no complaints or concerns other than going home. His mother came to visit and was engaged in his discharge planning. This was related to athlete with a significant other over a break-up. He promised that person and his mother that he would be going to rehab when a bed becomes available. Long-term inpatient rehab is the only likely intervention that can be recommended for this patient. He had modest provement over admission and was able contract for safety outside of the hospital prior to discharge. During the hospitalization, patient had routine laboratory studies which were within normal limits except for few outliers which were managed by the hospitalist and the ICU. Additionally there was a general medical evaluation which was also within normal limits and revealed no new acute processes also managed by the hospitalist and acute care providers in the ICU. Discharge Summary: At the time of discharge, he denied psychosis or lethality. Mood and anxiety were well managed. Patient endorsed a plan to avoid all drugs of abuse and follow-up with the aftercare recommendations of the treatment team. Patient was evaluated and deemed to be absent credible lethality, and had achieved the maximum benefit from an inpatient hospitalization, so was discharged. Of note our recommendation continue be inpatient alcohol and drug rehab for this patient, likely a 90-day 1 year program will be most effective. Involuntary Hold Information 96 Hour Hold: 96 Hour Involuntary Admission: Yes 96 Hour Hold Ending Date: 11/22/21 96 Hour Hold Ending Time: 01:46 Mental Status Exam MSE Comments: This is a slender white male in hospital scrubs with limited grooming and adequate eye contact lying in bed with a nasal cannula in for his standing oxygen order.? No abnormal movement except for psychomotor retardation.? Cooperative with exam in no acute distress.? Speech was slightly decreased rate and volume.? Mood described as better, affect subdued.? Thought process organized.? Thought content: Patient denied suicidal or homicidal ideation, there were no delusions reported or noted, he denies any auditory visual hallucinations.? Attention and concentration were intact and memory was more reliable but none were formally tested.? He is alert and oriented x3.? Insight and judgment are impaired and impulse control is impaired. Discharge Data Studies Completed and Pending: Completed Studies During Hospitalization Category Date Time Status XR chest 1V zane ble [id number] Urgent Exams 11/16/21 01:24 Completed Pending at discharge Category Date Time Status Blood Culture AM LABS Lab 11/18/21 09:18 Results Blood Culture Rou rose Lab 11/16/21 09:00 Results Radiology Impressions Chest X-Ray 11/16/21 01:24 IMPRESSION: 1. Mild interstitial prominence in the lower lungs, see above discussion. 2. Other findings discussed above. Laboratory Results WBC 5.7 10^3/uL (4.0- 10.0) 11/17/21 04:36 RBC 4.64 10^6/uL (4.1 -5.3) 11/17/21 04:36 Hgb 14.3 g/dL (11.7-1 6.6) 11/17/21 04:36 Hct 44.1 % (42.0-52.0 ) 11/17/21 04:36 MCV 95.0 fl (80-94) H 11/17/21 04:36 MCH 30.8 pg (28.0-34. 0) 11/17/21 04:36 MCHC 32.4 g/dL (30.0-3 6.0) 11/17/21 04:36 RDW 13.3 % (12.1-15.1 ) 11/17/21 04:36 Plt Count 184 10^3/cmm (130 -400) 11/17/21 04:36 MPV 8.9 fL (7.4-10.4) 11/17/21 04:36 Neut % (Auto) 55.2 % 11/17/21 04:36 Lymph % (Auto) 27.6 % 11/17/21 04:36 Emmet % (Auto) 12.9 % 11/17/21 04:36 Eos % (Auto) 2.8 % 11/17/21 04:36 Baso % (Auto) 1.1 % 11/17/21 04:36 Neut # (Auto) 3.12 10^3/uL (1.8 -7.7) 11/17/21 04:36 Lymph # (Auto) 1.6 10^3/uL (0.8- 4.8) 11/17/21 04:36 Emmet # (Auto) 0.7 10^3/uL (0.2- 0.9) 11/17/21 04:36 Eos # (Auto) 0.2 10^3/uL (0.0- 0.8) 11/17/21 04:36 Baso # (Auto) 0.1 10^3/uL (0.0- 0.1) 11/17/21 04:36 Nucleated RBC % (a uto) 0 % 11/17/21 04:36 Nucleated RBCs # 0.0 /100WBC 11/17/21 04:36 PT 12.70 SECONDS (12 .1-14.9) 11/16/21 01:10 INR 0.92 (0.8-1.2) 11/16/21 01:10 APTT 26.5 SECONDS (23. 9-36.7) 11/16/21 01:10 Sodium 135 mmol/L (136-1 45) L 11/17/21 04:36 Potassium 3.5 mmol/L (3.5-5 .1) 11/17/21 04:36 Chloride 101 mmol/L (98-10 7) 11/17/21 04:36 Carbon Dioxide 22 mmol/L (22-29) 11/17/21 04:36 Anion Gap 15.5 (5-19) 11/17/21 04:36 BUN 7 mg/dL (8-23) L 11/17/21 04:36 Creatinine 0.6 mg/dL (0.7-1. 2) L 11/17/21 04:36 GFR Calculation 137.4 mL/min (90- 130) H 11/17/21 04:36 Glucose 90 mg/dL (65-115) 11/17/21 04:36 Calculated Osmolal ity 278 mOsm/kg (285- 295) L 11/17/21 04:36 Calcium 8.9 mg/dL (8.5-10 .5) 11/17/21 04:36 Magnesium 2.1 mg/dL (1.7-2. 3) 11/17/21 04:36 Total Bilirubin 0.4 mg/dL (0.15-1 .2) 11/17/21 04:36 AST 20 U/L (0-40) 11/17/21 04:36 ALT 12 U/L (0-41) 11/17/21 04:36 Alkaline Phosphata se 113 IU/L (40-130) 11/17/21 04:36 Total Protein 7.0 g/dL (6.6-8.7 ) 11/17/21 04:36 Albumin 3.6 g/dL (3.5-5.2 ) 11/17/21 04:36 Globulin 3.4 g/dL (1.3-4.6 ) 11/17/21 04:36 Salicylates < 0.3 mg/dL (3-10 ) L 11/16/21 01:10 Urine Opiates Scre en Negative ng/mL (N egative) 11/16/21 19:39 Acetaminophen < 5.0 ug/mL (10-3 0) L 11/16/21 01:10 Ur Barbiturates Sc reen Negative ng/mL (N egative) 11/16/21 19:39 Ur Phencyclidine S crn Negative ng/mL (N egative) 11/16/21 19:39 Ur Amphetamines Sc reen Negative ng/mL (N egative) 11/16/21 19:39 U Benzodiazepines Scrn Positive ng/mL (N egative) H 11/16/21 19:39 Urine Cocaine Scre en Negative ng/mL (N egative) 11/16/21 19:39 U Marijuana (THC) Screen Negative ng/mL (N egative) 11/16/21 19:39 Ethyl Alcohol 306 mg/dL (0-10) H* 11/16/21 01:10 Vitals: Last Vital Signs Temp 98.2 F 11/19/21 06:23 Pulse 110 H 11/19/21 08:00 Resp 16 11/19/21 08:00 BP 120/80 11/19/21 06:23 Pulse Ox 97 11/19/21 08:00 Discharge Plan Discharge Patient Disposition: Home Condition: Stable Prescriptions: Continued (DME) Manohar Walker See Rx Instructions .ROUTE .MEDSUPPLY Qty: 1 0RF Rx Instructions: As directed multivitamin Tablet 1 tab PO DAILY 0RF Opsumit 10 mg tablet 10 mg PO DAILY 0RF Eliquis 5 mg tablet 5 mg PO BID 0RF sildenafil (pulm.hypertension) 20 mg tablet 20 mg PO TID 0RF Dovato 50-300 mg tablet 1 tab PO QAM 0RF trazodone 150 mg tablet 150 - 300 mg PO BEDTIME 0RF mirtazapine 15 mg tablet 15 mg PO BEDTIME 0RF testosterone 20.25 mg/1.25 gram (1.62 %) gel in metered-dose pump 2 pump topical QAM 0RF sulfamethoxazole-trimethoprim 800-160 mg tablet 1 tab PO .MON,WED,FRI 0RF prednisolone acetate 1 % drops,suspension 1 drp ophthalmic (eye) BID 0RF Rx Instructions: right eye Mytesi 125 mg tablet,delayed release (DR/EC) 125 mg PO BID 0RF albuterol sulfate 90 mcg/actuation HFA aerosol inhaler 2 inh INHALATION Q4H PRN (Reason: shortness of breath or wheezing) Qty: 18 0RF Discharge Orders: Discharge Order (Routine); Ordered 11/19/21 Ordered By: Niko Bang Referrals: [facility] [Other] Rasheed Spivey MD [Primary Care Provider] - 12/06/21 11:15 am (Follow Up ) Discharge Diet: Regular Discharge Activity: Resume usual activity Patient Instructions: Alcohol Abuse, Depression, Opioid Safety Discharge Attestations NPU Time Spent in Discharge Care*: less than 30 min Specific Discharge Activities: Specific discharge activities: educating patient, educating and/or supporting family/caregiver, discussing with correctional casework specialist/social workers/dc planners, documenting/other paperwork and evaluating patient/reviewing data Status at Discharge: Cognitive status at discharge: cognitively intact, Behavioral status at discharge: can be uncooperative, Coding Level of Care Code Acute Chg FW DC note Diagnoses Alcohol withdrawal F10.239 Alcohol use disorder, severe, dependence F10.20 HIV (human immunodeficiency virus infection) Z21 HIV symptom status: asymptomatic, with no history of HIV-related illness COPD (chronic obstructive pulmonary disease) J44.9 Overdose T50.902A Encounter type: initial encounter Injury intent: intentional self-harm Alcohol intoxication F10.929 Major depressive disorder, recurrent F33.9
[2021-11-19 15:55] VITALS: BP 120/80; PULSE 110; RESP 16; TEMP 36.8; O2SAT 97
--- NOTE | 2021-11-19 16:23 | PC.NURSE ---
PT IS A&OX4. NO ISSUES NOTED AT THIS TIME. REPORTS FEELING STABLE TO DISCHARGE WITH MOM. PT TO DISCHARGE TO HOME TODAY. ALL PERSONAL BELONGINGS AND MEDICATION BROUGHT BEING RETURNED TO PT AT DISCHARGE. REPORTS HAVING ALL MEDICATIONS AT HOME. DENIES SI/HI.
== END 2021-11-19 16:31 | disposition home or self-care (01) | DRG 917 ==
LOC: ER 02:23 → ER IP 05:35 → ICU 11-17 00:40 → NP 11-17 13:17 → ICU 11-18 09:33
PROVIDERS: Internal Medicine; Admitting Provider Internal Medicine; Emergency Provider Emergency Medicine; PCP Family Medicine; Visit Provider Psychiatry & Neurology Psychiatry
DX: T45.512A Poisoning by anticoagulants, intentional self-harm, initial encounter (principal); R57.1 Hypovolemic shock; F33.9 Major depressive disorder, recurrent, unspecified; R45.851 Suicidal ideations; F10.239 Alcohol dependence with withdrawal, unspecified; Y90.8 Blood alcohol level of 240 mg/100 ml or more; I48.91 Unspecified atrial fibrillation; F17.210 Nicotine dependence, cigarettes, uncomplicated; Z99.81 Dependence on supplemental oxygen; J44.9 Chronic obstructive pulmonary disease, unspecified; Z21 Asymptomatic human immunodeficiency virus [HIV] infection status; I27.20 Pulmonary hypertension, unspecified; Z63.0 Problems in relationship with spouse or partner; E29.1 Testicular hypofunction; Z85.72 Personal history of non-Hodgkin lymphomas; F43.10 Post-traumatic stress disorder, unspecified; Z86.711 Personal history of pulmonary embolism; Z79.51 Long term (current) use of inhaled steroids; Z81.8 Family history of other mental and behavioral disorders; I95.9 Hypotension, unspecified; F10.229 Alcohol dependence with intoxication, unspecified
CPT/HCPCS: 12345; 36415; 71045; 80048; 80053; 80306; 80307; 83735; 85025; 85610; 85730; 87040; 87086; 87150; 87205; 93005; 96365; 96375; 99291; J2060; J2405; J3411; J3490; J7030

== ENCOUNTER 2021-12-01 04:18 | Emergency (ER) | payer MEDICARE, MEDICAID, SELFPAY ==
[2021-12-01] VITALS (8 sets, daily range): BP systolic 114–144; BP diastolic 86–97; PULSE 85–119; RESP 15–22; TEMP 36.7; O2SAT 92–94; BMI 22.4
--- NOTE | 2021-12-01 04:23 | ECG_ITS ---
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 Measurements Intervals Adams Rate: 110 P: NM: QRS: 38 QRSD: 88 T: 67 QT: 374 QTc: 508 Interpretive Statements Multifocal atrial tachycardia MODERATE ST DEPRESSION [0.05+ mV ST DEPRESSION] Compared to ECG 11/16/2021 01:27:28 ST (T wave) deviation now present Sinus rhythm no longer present Electronically Signed On 12-01-2021 23:56:49 CDT by Adilia Clay M.D. [email or web address]
--- NOTE | 2021-12-01 04:23 | XRR_ITS ---
PROCEDURE INFORMATION: Exam: XR Chest Exam date and time: 12/01/2021 4:30 AM Age: 61 years old Clinical indication: Shortness of breath; Patient HX: SOB. Hypoxia on monitor. History of copd. ; Additional info: Cp TECHNIQUE: Imaging protocol: XR of the chest. Views: 1 view. COMPARISON: 1. CR (CHEST, ) 11/16/2021 1:[address] chest abd pel w con* 02/10/2021 4:09 PM FINDINGS: Lungs: Bilateral perihilar prominence,. related to prominent pulmonary vasculature. Persistent mild interstitial prominence/basilar scarring/emphysematous disease similar to prior exam. No significant airspace consolidation identified. Pleural spaces: No pneumothorax. No pleural effusion. Heart/Mediastinum: The cardiomediastinal silhouette is within normal limits. Bones/joints: Unremarkable. XR/XR chest 1V portable [id number] IMPRESSION: No acute cardiopulmonary abnormality identified.
--- NOTE | 2021-12-01 04:25 | ED_ITS ---
Documented by User: Fanny Virgen MD 12/01/21 05:18 HPI - Chest Pain General: Chief Complaint: Alcohol Stated Complaint: etoh Time Seen by Provider: 12/01/21 04:22 Source: patient and EMS Mode of arrival: EMS Limitations: no limitations History of Present Illness: 61-year-old male who is well-known to ER has a history of chronic alcoholism he states his last drink was roughly 24 hours ago states he felt like he is going through withdrawals he states that having chest pain, shortness of breath been going on over the last 3 to 4 hours. States pain is sharp in nature in the center of his chest he rates it a 7 out of 10 no vomiting no diarrhea he has no tremors here no seizures. Associated symptoms: Deny abdominal pain, dyspnea, fever(s), nausea or vomiting Review of Systems Const: Denies: fever(s), chills, body aches or change in appetite Eyes: Denies: blurry vision or eye discomfort ENMT: Denies: throat pain or dental pain Card: Reports: chest pain Resp: Denies: dyspnea GI: Denies: abdominal pain, nausea, vomiting or diarrhea : Denies: dysuria Musc: Denies: neck pain or back pain Skin/Breast: Denies: rash Neuro: Denies: headache(s) Psych: Denies: depression Obey/Lymph: Denies: easy bruising All/Imm: Denies: urticaria PFSH ED PFSH: Medical History Alcohol dependence Alcohol use disorder Anorexia Atrial fibrillation Closed fractures involving multiple regions of right lower extremity Colon polyps COPD (chronic obstructive pulmonary disease) Severe COPD Deliberate medication overdose Depression Depressive disorder Diverticulitis / Diverticulosis GI bleed Was taken off Coumadin for a month in 2016 after a bleeding gastric ulcer, currently on Eliquis History of peptic ulcer disease HIV (human immunodeficiency virus infection) Hypogonadism Liver tumor Lymphoma 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 No evidence of recurrence, currently getting LABOR RELATIONS ANALYST prophylaxis with intrathecal methotrexate with prophylactic radiation to right testicle, CHOP treatment Major depressive disorder Meningitis Orchialgia Posttraumatic stress disorder Pulmonary embolism DVT of right leg, 2009 Pulmonary hypertension After PE Suicide attempt Surgical History H/O colonoscopy 2001 -diverticulosis, colon polyps / 2005 -diverticulosis, small telangiectasia / 01/2016 -diverticulosis with intrinsic stenosis and sigmoid H/O esophagogastroduodenoscopy 2005 -reflux esophagitis, superficial gastric erosions with hemorrhagic gastritis, duodenitis /2008 -reflux esophagitis, gastritis, small chronic gastric ulcer H/O hemorrhoidectomy History of orchiectomy, unilateral L -- diffuse large B-cell lymphoma Family History Other No pertinent family history Social History Smoking and tobacco status: current every day smoker (pack a day) cigarettes Packs smoked per day: 1 Alcohol intake: current Lives independently: Yes Housing: House Physical Exam Const: COMMON NORMALS: no acute distress, patient oriented x3 and healthy appearing HENMT: COMMON NORMALS: normocephalic and atraumatic HEAD & SCALP: normocephalic and atraumatic Eye: COMMON NORMALS: Equal, round and reactive pupils present and EOMs intact bilaterally PUPIL: Yes Equal, round and reactive pupils present Neck/C-Spine: COMMON NORMALS: full ROM and supple Chest: COMMONS NORMALS: normal inspection of the chest and normal palpation of entire chest wall Resp: COMMON NORMALS: normal respiratory effort, No retractions, No use of accessory muscles and clear to auscultation bilaterally AUSCULTATION: clear to auscultation bilaterally Cardio: COMMON NORMALS: regular rate, regular rhythm and No murmurs present (Cardio) RATE: regular rate RHYTHM: regular rhythm GI: COMMON NORMALS: Normal to inspection, nondistended, normoactive bowel sounds present, Soft to palpation, non-tender and no masses PALPATION: Yes Soft to palpation Extremity: COMMON NORMALS: normal to inspection and full ROM Neuro: COMMON NORMALS: patient oriented x3, moves all extremities and no focal motor deficits Psych: COMMON NORMALS: mental status grossly normal, Normal thought process present and cooperative THOUGHT PROCESS: Normal thought process present Skin: COMMON NORMALS: no rashes or lesions noted and no wounds GENERAL SKIN EXAM: no rashes or lesions noted Course Vital Signs: Vital signs: Vital Signs Temperature 98.1 F 12/01/21 04:19 Pulse Rate 92 12/01/21 09:02 Respiratory Rate 22 H 12/01/21 09:02 Blood Pressure 114/94 12/01/21 09:02 Pulse Oximetry 94 12/01/21 09:02 MDM - Chest Pain Lab Data : 12/01/21 04:30 12/01/21 07:33 Radiology Impressions Chest X-Ray 12/01/21 04:23 IMPRESSION: No acute cardiopulmonary abnormality identified. Laboratory Results WBC 5.5 10^3/uL (4.0-10.0) 12/01/21 04:30 RBC 5.04 10^6/uL (4.1-5.3) 12/01/21 04:30 Hgb 15.6 g/dL (11.7-16.6) 12/01/21 04:30 Hct 44.6 % (42.0-52.0) 12/01/21 04:30 MCV 88.5 fl (80-94) 12/01/21 04:30 MCH 31.0 pg (28.0-34.0) 12/01/21 04:30 MCHC 35.0 g/dL (30.0-36.0) 12/01/21 04:30 RDW 13.1 % (12.1-15.1) 12/01/21 04:30 Plt Count 128 10^3/cmm (130-400) L 12/01/21 04:30 MPV 9.9 fL (7.4-10.4) 12/01/21 04:30 Neut % (Auto) 41.6 % 12/01/21 04:30 Lymph % (Auto) 45.0 % 12/01/21 04:30 Cook % (Auto) 11.4 % 12/01/21 04:30 Eos % (Auto) 1.1 % 12/01/21 04:30 Baso % (Auto) 0.7 % 12/01/21 04:30 Neut # (Auto) 2.30 10^3/uL (1.8-7.7) 12/01/21 04:30 Lymph # (Auto) 2.5 10^3/uL (0.8-4.8) 12/01/21 04:30 Cook # (Auto) 0.6 10^3/uL (0.2-0.9) 12/01/21 04:30 Eos # (Auto) 0.1 10^3/uL (0.0-0.8) 12/01/21 04:30 Baso # (Auto) 0.0 10^3/uL (0.0-0.1) 12/01/21 04:30 Nucleated RBC % (auto) 0 % 12/01/21 04:30 Nucleated RBCs # 0.0 /100WBC 12/01/21 04:30 Sodium 132 mmol/L (136-145) L 12/01/21 04:30 Potassium 3.3 mmol/L (3.5-5.1) L 12/01/21 07:33 Chloride 91 mmol/L (98-107) L 12/01/21 04:30 Carbon Dioxide 24 mmol/L (22-29) 12/01/21 04:30 Anion Gap 19.4 (5-19) H 12/01/21 04:30 BUN 2 mg/dL (8-23) L 12/01/21 04:30 Creatinine 0.5 mg/dL (0.7-1.2) L 12/01/21 04:30 GFR Calculation 169.6 mL/min (90-130) H 12/01/21 04:30 Glucose 102 mg/dL (65-115) 12/01/21 04:30 Calculated Osmolality 270 mOsm/kg (285-295) L 12/01/21 04:30 Calcium 8.8 mg/dL (8.5-10.5) 12/01/21 04:30 Magnesium 1.3 mg/dL (1.7-2.3) L 12/01/21 04:30 Total Bilirubin 0.9 mg/dL (0.15-1.2) 12/01/21 04:30 AST 56 U/L (0-40) H 12/01/21 04:30 ALT 54 U/L (0-41) H 12/01/21 04:30 Alkaline Phosphatase 132 IU/L (40-130) H 12/01/21 04:30 Troponin T Baseline 21 ng/L (0-15) H 12/01/21 04:30 Troponin T 120 Minute 17.58 ng/L (0-15) H 12/01/21 06:30 Delta Troponin T -3.42 ABS# (0-10) L 12/01/21 06:30 Total Protein 7.6 g/dL (6.6-8.7) 12/01/21 04:30 Albumin 4.0 g/dL (3.5-5.2) 12/01/21 04:30 Globulin 3.6 g/dL (1.3-4.6) 12/01/21 04:30 Ethyl Alcohol 198 mg/dL (0-10) H 12/01/21 04:30 EKG Data EKG 1: I personally reviewed and interpreted this EKG as follows: EKG interpretation date: 12/01/21 EKG interpretation time: 05:15 Interpretation: sinus tach hr [address] or t wave abnormalities qrs 100 qtc 458 Discharge Plan Discharge Patient Disposition: Home Clinical Impression: Alcoholic intoxication, Hypokalemia, Chest pain, Hypomagnesemia Condition: Stable Prescriptions: No Action (DME) Cam Walker See Rx Instructions .ROUTE .MEDSUPPLY Qty: 1 0RF Rx Instructions: As directed multivitamin Tablet 1 tab PO DAILY 0RF Opsumit 10 mg tablet 10 mg PO DAILY 0RF Eliquis 5 mg tablet 5 mg PO BID 0RF sildenafil (pulm.hypertension) 20 mg tablet 20 mg PO TID 0RF Dovato 50-300 mg tablet 1 tab PO QAM 0RF trazodone 150 mg tablet 150 - 300 mg PO BEDTIME 0RF mirtazapine 15 mg tablet 15 mg PO BEDTIME 0RF testosterone 20.25 mg/1.25 gram (1.62 %) gel in metered-dose pump 2 pump topical QAM 0RF sulfamethoxazole-trimethoprim 800-160 mg tablet 1 tab PO .MON,WED,FRI 0RF prednisolone acetate 1 % drops,suspension 1 drp ophthalmic (eye) BID 0RF Rx Instructions: right eye Mytesi 125 mg tablet,delayed release (DR/EC) 125 mg PO BID 0RF albuterol sulfate 90 mcg/actuation HFA aerosol inhaler 2 inh INHALATION Q4H PRN (Reason: shortness of breath or wheezing) Qty: 18 0RF Discharge Orders: Discharge ED (Routine); Ordered 12/01/21 Ordered By: Bryant Lieberman Referrals: Rasheed Spivey MD [Primary Care Provider] - 1-3 days Discharge Diet: Advance as tolerated Discharge Activity: Resume usual activity Patient Instructions: Chest Pain (ED), Hypokalemia (ED) Activity Restrictions/Additional Instructions: Thank you for visiting the emergency department. You were seen and evaluated for concern of withdrawals in addition to chest pain. The exact cause of your symptoms is unclear however does not appear to need inpatient management at this time. Your potassium was low however this was improved on repeat, please ensure you are eating a well-balanced diet and have repeat blood work in 1 week to ensure potassium is improved. You will be given a prescription for potassium supplementation. Please follow-up with your primary care provider for additional testing. Return to the emergency department for worsening symptoms or anything else that you are concerned about and feel needs emergency department evaluation. Coding Level of Care Code ED Civil Rights Representative for Chg Fwd Exam Comprehensive Documented by User: Bryant Lieberman MD 12/06/21 06:44 HPI - Chest Pain General: Chief Complaint: Alcohol Stated Complaint: etoh Time Seen by Provider: 12/01/21 04:22 [facility] ED PFSH: Medical History Alcohol dependence Alcohol use disorder Anorexia Atrial fibrillation Closed fractures involving multiple regions of right lower extremity Colon polyps COPD (chronic obstructive pulmonary disease) Severe COPD Deliberate medication overdose Depression Depressive disorder Diverticulitis / Diverticulosis GI bleed Was taken off Coumadin for a month in 2015 after a bleeding gastric ulcer, currently on Eliquis History of peptic ulcer disease HIV (human immunodeficiency virus infection) Hypogonadism Liver tumor Lymphoma 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 No evidence of recurrence, currently getting LABOR RELATIONS ANALYST prophylaxis with intrathecal methotrexate with prophylactic radiation to right testicle, CHOP treatment Major depressive disorder Meningitis Orchialgia Posttraumatic stress disorder Pulmonary embolism DVT of right leg, 2009 Pulmonary hypertension After PE Suicide attempt Surgical History H/O colonoscopy 2001 -diverticulosis, colon polyps / 2005 -diverticulosis, small telangiectasia / 01/2016 -diverticulosis with intrinsic stenosis and sigmoid H/O esophagogastroduodenoscopy 2005 -reflux esophagitis, superficial gastric erosions with hemorrhagic gastritis, duodenitis /2009 -reflux esophagitis, gastritis, small chronic gastric ulcer H/O hemorrhoidectomy History of orchiectomy, unilateral L -- diffuse large B-cell lymphoma Family History Other No pertinent family history Social History Smoking and tobacco status: current every day smoker (pack a day) cigarettes Packs smoked per day: 1 Alcohol intake: current Lives independently: Yes Housing: House Course Vital Signs: Vital signs: Vital Signs Temperature 98.1 F 12/01/21 04:19 Pulse Rate 92 12/01/21 09:02 Respiratory Rate 22 H 12/01/21 09:02 Blood Pressure 114/94 12/01/21 09:02 Pulse Oximetry 94 12/01/21 09:02 MDM - Chest Pain Medical Decision Making Patient care handoff received from Dr. Virgen pending completion of ED evaluation. Potassium supplementation completed and repeat potassium on laboratory studies is improved. Delta troponin is negative. Patient tolerated p.o. intake and was able to ambulate without falling. Results of ED evaluation were discussed with the patient including need for outpatient follow-up with PCP and recheck of blood work in 1 week. Patient verbalized understanding and felt safe for discharge. Bryant Lieberman MD Emergency Medicine Lab Data : 12/01/21 04:30 12/01/21 07:33 Radiology Impressions Chest X-Ray 12/01/21 04:23 IMPRESSION: No acute cardiopulmonary abnormality identified. Laboratory Results WBC 5.5 10^3/uL (4.0-10.0) 12/01/21 04:30 RBC 5.04 10^6/uL (4.1-5.3) 12/01/21 04:30 Hgb 15.6 g/dL (11.7-16.6) 12/01/21 04:30 Hct 44.6 % (42.0-52.0) 12/01/21 04:30 MCV 88.5 fl (80-94) 12/01/21 04:30 MCH 31.0 pg (28.0-34.0) 12/01/21 04:30 MCHC 35.0 g/dL (30.0-36.0) 12/01/21 04:30 RDW 13.1 % (12.1-15.1) 12/01/21 04:30 Plt Count 128 10^3/cmm (130-400) L 12/01/21 04:30 MPV 9.9 fL (7.4-10.4) 12/01/21 04:30 Neut % (Auto) 41.6 % 12/01/21 04:30 Lymph % (Auto) 45.0 % 12/01/21 04:30 Cook % (Auto) 11.4 % 12/01/21 04:30 Eos % (Auto) 1.1 % 12/01/21 04:30 Baso % (Auto) 0.7 % 12/01/21 04:30 Neut # (Auto) 2.30 10^3/uL (1.8-7.7) 12/01/21 04:30 Lymph # (Auto) 2.5 10^3/uL (0.8-4.8) 12/01/21 04:30 Cook # (Auto) 0.6 10^3/uL (0.2-0.9) 12/01/21 04:30 Eos # (Auto) 0.1 10^3/uL (0.0-0.8) 12/01/21 04:30 Baso # (Auto) 0.0 10^3/uL (0.0-0.1) 12/01/21 04:30 Nucleated RBC % (auto) 0 % 12/01/21 04:30 Nucleated RBCs # 0.0 /100WBC 12/01/21 04:30 Sodium 132 mmol/L (136-145) L 12/01/21 04:30 Potassium 3.3 mmol/L (3.5-5.1) L 12/01/21 07:33 Chloride 91 mmol/L (98-107) L 12/01/21 04:30 Carbon Dioxide 24 mmol/L (22-29) 12/01/21 04:30 Anion Gap 19.4 (5-19) H 12/01/21 04:30 BUN 2 mg/dL (8-23) L 12/01/21 04:30 Creatinine 0.5 mg/dL (0.7-1.2) L 12/01/21 04:30 GFR Calculation 169.6 mL/min (90-130) H 12/01/21 04:30 Glucose 102 mg/dL (65-115) 12/01/21 04:30 Calculated Osmolality 270 mOsm/kg (285-295) L 12/01/21 04:30 Calcium 8.8 mg/dL (8.5-10.5) 12/01/21 04:30 Magnesium 1.3 mg/dL (1.7-2.3) L 12/01/21 04:30 Total Bilirubin 0.9 mg/dL (0.15-1.2) 12/01/21 04:30 AST 56 U/L (0-40) H 12/01/21 04:30 ALT 54 U/L (0-41) H 12/01/21 04:30 Alkaline Phosphatase 132 IU/L (40-130) H 12/01/21 04:30 Troponin T Baseline 21 ng/L (0-15) H 12/01/21 04:30 Troponin T 120 Minute 17.58 ng/L (0-15) H 12/01/21 06:30 Delta Troponin T -3.42 ABS# (0-10) L 12/01/21 06:30 Total Protein 7.6 g/dL (6.6-8.7) 12/01/21 04:30 Albumin 4.0 g/dL (3.5-5.2) 12/01/21 04:30 Globulin 3.6 g/dL (1.3-4.6) 12/01/21 04:30 Ethyl Alcohol 198 mg/dL (0-10) H 12/01/21 04:30 Discharge Plan Discharge Patient Disposition: Home Clinical Impression: Alcoholic intoxication, Hypokalemia, Chest pain, Hypomagnesemia Condition: Stable Prescriptions: No Action (DME) Cam Walker See Rx Instructions .ROUTE .MEDSUPPLY Qty: 1 0RF Rx Instructions: As directed multivitamin Tablet 1 tab PO DAILY 0RF Opsumit 10 mg tablet 10 mg PO DAILY 0RF Eliquis 5 mg tablet 5 mg PO BID 0RF sildenafil (pulm.hypertension) 20 mg tablet 20 mg PO TID 0RF Dovato 50-300 mg tablet 1 tab PO QAM 0RF trazodone 150 mg tablet 150 - 300 mg PO BEDTIME 0RF mirtazapine 15 mg tablet 15 mg PO BEDTIME 0RF testosterone 20.25 mg/1.25 gram (1.62 %) gel in metered-dose pump 2 pump topical QAM 0RF sulfamethoxazole-trimethoprim 800-160 mg tablet 1 tab PO .MON,WED,FRI 0RF prednisolone acetate 1 % drops,suspension 1 drp ophthalmic (eye) BID 0RF Rx Instructions: right eye Mytesi 125 mg tablet,delayed release (DR/EC) 125 mg PO BID 0RF albuterol sulfate 90 mcg/actuation HFA aerosol inhaler 2 inh INHALATION Q4H PRN (Reason: shortness of breath or wheezing) Qty: 18 0RF Discharge Orders: Discharge ED (Routine); Ordered 12/01/21 Ordered By: Bryant Lieberman Referrals: Rasheed Spivey MD [Primary Care Provider] - 1-3 days Discharge Diet: Advance as tolerated Discharge Activity: Resume usual activity Patient Instructions: Chest Pain (ED), Hypokalemia (ED) Activity Restrictions/Additional Instructions: Thank you for visiting the emergency department. You were seen and evaluated for concern of withdrawals in addition to chest pain. The exact cause of your symptoms is unclear however does not appear to need inpatient management at this time. Your potassium was low however this was improved on repeat, please ensure you are eating a well-balanced diet and have repeat blood work in 1 week to ensure potassium is improved. You will be given a prescription for potassium supplementation. Please follow-up with your primary care provider for additional testing. Return to the emergency department for worsening symptoms or anything else that you are concerned about and feel needs emergency department evaluation. Coding Level of Care Code ED Civil Rights Representative for Osmin Fwd Exam Comprehensive
[2021-12-01 04:41] LABS: Basophils % 0.7 %; Eosinophils # 0.1 10^3/uL (0.0-0.8); Eosinophils % 1.1 %; Hematocrit 44.6 % (42.0-52.0); Hemoglobin 15.6 g/dL (11.7-16.6); Lymphocytes # 2.5 10^3/uL (0.8-4.8); Mean Corpuscular Volume 88.5 fl (80-94); Mean Platelet Volume 9.9 fL (7.4-10.4); Monocytes # 0.6 10^3/uL (0.2-0.9); Monocytes % 11.4 %; Neutrophils % 41.6 %; Nucleated Red Blood Cells % 0 %; Platelet Count 128 10^3/cmm (130-400); Red Blood Count 5.04 10^6/uL (4.1-5.3); Red Cell Distribution Width 13.1 % (12.1-15.1); White Blood Count 5.5 10^3/uL (4.0-10.0)
[2021-12-01] MEDS: ondansetron 2 mg/ML SDV 2 mL 4 MG IVP (04:53)
[2021-12-01] MEDS: multivitamin therapeutic Tablet 1 TAB PO (04:55)
[2021-12-01] MEDS: sodium chloride 0.9% 1,000 ML 999 ML IV (04:56)
[2021-12-01] MEDS: morphine 4 mg/mL SDV 1 mL IVP (04:57)
[2021-12-01] MEDS: dilTIAZem 5 mg/mL SDV 5 mL 10 MG IVP (04:58)
[2021-12-01 05:01] LABS: Alanine Aminotransferase 54 U/L (0-41); Alcohol Level 198 mg/dL (0-10); Alkaline Phosphatase 132 IU/L (40-130); Anion Gap 19.4 (5-19); Aspartate Amino Transferase 56 U/L (0-40); Blood Urea Nitrogen 2 mg/dL (8-23); Calcium 8.8 mg/dL (8.5-10.5); Carbon Dioxide 24 mmol/L (22-29); Chloride 91 mmol/L (98-107); Globulin 3.6 g/dL (1.3-4.6); Glomerular Filtration Rate 169.6 mL/min (90-130); Glucose 102 mg/dL (65-115); Osmolality Calculated 270 mOsm/kg (285-295); Sodium 132 mmol/L (136-145); Total Bilirubin 0.9 mg/dL (0.15-1.2); Total Protein 7.6 g/dL (6.6-8.7)
[2021-12-01 05:02] LABS: Troponin(5th) Baseline 21 ng/L (0-15)
[2021-12-01 05:15] LABS: Potassium 2.4 mmol/L (3.5-5.1)
[2021-12-01 05:40] LABS: Magnesium 1.3 mg/dL (1.7-2.3)
[2021-12-01] MEDS: potassium chloride premix 100 ML 50 MEQ IV (05:57)
[2021-12-01] MEDS: magnesium sulfate premix 2 GM/50 ML PIGGYBACK IV (05:58)
[2021-12-01] MEDS: potassium chloride ER 20 mEq Tablet 60 MEQ PO (06:04)
--- NOTE | 2021-12-01 06:23 | ECG_ITS ---
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 Measurements Intervals [place] Rate: 104 P: 80 WV: 184 QRS: 18 QRSD: 100 T: 66 QT: 397 QTc: 524 Interpretive Statements SINUS TACHYCARDIA WITH OCCASIONAL VENTRICULAR PREMATURE COMPLEXES ABNORMAL RHYTHM ECG Compared to ECG 12/01/2021 04:38:43 Ventricular premature complex(es) now present Atrial fibrillation no longer present ST (T wave) deviation no longer present Electronically Signed On 12-02-2021 0:16:31 CDT by Adilia Clay M.D. [id number]
--- NOTE | 2021-12-01 07:09 | PC.NURSE ---
Addendum entered by Rasheed Duffy RN 12/01/21 07:10: Continuous cardiac, BP, and SpO2 monitoring continued. Original Note: Report received from MIRIAN Rogers. Pt resting in bed with eyes closed, resp even and unlabored. Care assumed.
[2021-12-01 07:10] LABS: Troponin 5 2HR 17.58 ng/L (0-15)
[2021-12-01 07:12] LABS: Troponin 5 2HR Delta -3.42 ABS# (0-10)
[2021-12-01 08:15] LABS: Potassium 3.3 mmol/L (3.5-5.1)
--- NOTE | 2021-12-01 08:36 | PC.NURSE ---
Ambulated pt 5 feet per DrKarrie Order. Pt stated he was dizzy but was able to ambulate.
== END 2021-12-01 09:04 | disposition home or self-care (01) ==
PROVIDERS: Emergency Medicine; Emergency Provider Emergency Medicine; PCP Family Medicine
DX: F10.129 Alcohol abuse with intoxication, unspecified (principal); Y90.6 Blood alcohol level of 120-199 mg/100 ml; E87.6 Hypokalemia; R07.9 Chest pain, unspecified; E83.42 Hypomagnesemia; B20 Human immunodeficiency virus [HIV] disease; F17.210 Nicotine dependence, cigarettes, uncomplicated; Z86.711 Personal history of pulmonary embolism; Z79.01 Long term (current) use of anticoagulants
CPT/HCPCS: 71045; 80053; 80307; 83735; 84132; 84484; 85025; 93005; 96365; 96366; 96367; 96375; 99285; J2270; J2405; J3411; J3475; J3480; J3490; J7030

== ENCOUNTER 2021-12-25 11:25 | Inpatient (IN) | payer MEDICARE, MEDICAID, SELFPAY ==
[2021-12-25] VITALS (54 sets, daily range): BP systolic 94–175; BP diastolic 60–116; PULSE 87–117; RESP 12–25; TEMP 36.4–36.8; O2SAT 82–97; BMI 29.8
--- NOTE | 2021-12-25 11:35 | CTR_ITS ---
PROCEDURE INFORMATION: Exam: CT Head Without Contrast Exam date and time: 12/25/2021 2:23 PM Age: 61 years old Clinical indication: Altered mental status/memory loss; Additional info: AMS TECHNIQUE: Imaging protocol: Computed tomography of the head without contrast. Radiation optimization: All CT scans at this facility use at least one of these dose optimization techniques: automated exposure control; mA and/or kV adjustment per patient size (includes targeted exams where dose is matched to clinical indication); or iterative reconstruction. COMPARISON: CT head wo con* [id number] 10/24/2021 10:32 PM RADIATION DOSE METRICS: Total DLP (mGy-cm): 2111.46 FINDINGS: Brain: Normal. No hemorrhage. Unremarkable white matter. No mass effect. Cerebral ventricles: No ventriculomegaly. Paranasal sinuses: The mucosal edema is seen in the left maxillary sinus, the left ethmoid sinuses, and the right nasal region. These findings correspond to chronic sinusitis. The sinuses are otherwise expanded and clear. Mastoid air cells: Visualized mastoid air cells are well aerated. Bones/joints: Unremarkable. No acute fracture. Soft tissues: Unremarkable. CT/CT head wo con* [id number] IMPRESSION: 1. No acute intracranial abnormality. 2. Chronic sinusitis left maxillary sinus and ethmoid sinus
--- NOTE | 2021-12-25 11:35 | ECG_ITS ---
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 Measurements Intervals [place] Rate: 98 P: 59 IA: 161 QRS: 59 QRSD: 101 T: 74 QT: 390 QTc: 500 Interpretive Statements SINUS RHYTHM Compared to ECG 12/01/2021 05:15:32 Sinus tachycardia no longer present Ventricular premature complex(es) no longer present Electronically Signed On 12-26-2021 16:18:33 CDT by Josue Maier M.D. [id number]
--- NOTE | 2021-12-25 11:35 | XRR_ITS ---
PROCEDURE INFORMATION: Exam: XR Chest Exam date and time: 12/25/2021 12:12 PM Age: 61 years old Clinical indication: Device placement; Other: Ng and et placement; Additional info: AMS TECHNIQUE: Imaging protocol: XR of the chest. Views: 1 view. COMPARISON: CR (CHEST, ) 12/01/2021 4:30 AM FINDINGS: Tubes, catheters and devices: there is a endotracheal tube in place 5.9 cm above the cheng. There is NG tube in place extending into the stomach. Lungs: Left lower lobe atelectasis is seen. Low lung volumes are present. Pleural spaces: Unremarkable. No pleural effusion. No pneumothorax. Heart/Mediastinum: Unremarkable. No cardiomegaly. Bones/joints: Unremarkable. XR/XR chest 1V portable [id number] IMPRESSION: 1. No acute findings. 2. Left lower lobe atelectasis 3. Endotracheal tube is above the cheng. 4. NG tube is in the stomach
--- NOTE | 2021-12-25 11:37 | W.ED.GENADLT ---
HPI - General Adult General: Chief complaint: Psychiatric Symptoms Stated complaint: AMS Time Seen by Provider: 12/25/21 11:30 History of Present Illness: Patient is a 61-year-old male with history of chronic alcohol dependence, COPD, atrial fibrillation depression who presents the emergency room with concerns for altered mental status. Patient told EMS that he had an abnormal ingestion of trazodone. Since then, patient has become confused and altered. Patient is intermittent somnolent and confused and unable to follow commands at this time. Patient reports feeling suicidal earlier today. On arrival, patient was noted to be satting 82% on 6 L of oxygen. Onset: unknown Duration:ongoing Location:home Severity:severe Review of Systems General: Reports: ROS unobtainable due to mental status Neuro: Reports: other (ams) Psych: Reports: suicidal ideation [facility] PFSH: Medical History Alcohol dependence Alcohol use disorder Anorexia Atrial fibrillation Closed fractures involving multiple regions of right lower extremity Colon polyps COPD (chronic obstructive pulmonary disease) Severe COPD Deliberate medication overdose Depression Depressive disorder Diverticulitis / Diverticulosis GI bleed Was taken off Coumadin for a month in 2015 after a bleeding gastric ulcer, currently on Eliquis History of peptic ulcer disease HIV (human immunodeficiency virus infection) Hypogonadism Liver tumor Lymphoma 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 No evidence of recurrence, currently getting MANAGER HOME IMPROVEMENT prophylaxis with intrathecal methotrexate with prophylactic radiation to right testicle, CHOP treatment Major depressive disorder Meningitis Orchialgia Posttraumatic stress disorder Pulmonary embolism DVT of right leg, 2009 Pulmonary hypertension After PE Suicide attempt Surgical History H/O colonoscopy 2001 -diverticulosis, colon polyps / 2005 -diverticulosis, small telangiectasia / 01/2016 -diverticulosis with intrinsic stenosis and sigmoid H/O esophagogastroduodenoscopy 2005 -reflux esophagitis, superficial gastric erosions with hemorrhagic gastritis, duodenitis /2008 -reflux esophagitis, gastritis, small chronic gastric ulcer H/O hemorrhoidectomy History of orchiectomy, unilateral L -- diffuse large B-cell lymphoma Family History Other No pertinent family history Social History Smoking and tobacco status: current every day smoker (pack a day) cigarettes Packs smoked per day: 1 Alcohol intake: current Lives independently: Yes Housing: House Physical Exam HENMT: COMMON NORMALS: atraumatic HEAD & SCALP: atraumatic MOUTH: moist mucous membranes abnormal Eye: COMMON NORMALS: conjunctivae normal CONJUNCTIVA: Yes conjunctivae normal Neck/C-Spine: COMMON NORMALS: full ROM and supple Resp: OTHER: +coarse breath sounds b/l Cardio: COMMON NORMALS: regular rate RATE: regular rate GI: COMMON NORMALS: Soft to palpation and non-tender PALPATION: Yes Soft to palpation OTHER: No focal TTP. NO guarding rebound, guarding, rigidity. No CVA tenderness to percussion. Neg Billings/Neg McBurney's point tenderness, no suprabupic tenderness to palpation. Extremity: COMMON NORMALS: full ROM Neuro: SENSORIUM/ORIENTATION: Yes somnolent and Yes stuporous MOTOR EXAM: No Abnormal motor strength present and Other motor observations present (no focal motor deficits) OTHER: GCS 13, moving all extremities, confused not following cvommands Psych: OTHER: +unable to assess given ams Procedures Intubation Time out performed: Yes sedative: Etomidate Mg Given: 20 paralytic: Vecuronium Mg Given: 10 Laryngoscope: Alessia ET Tube Size: 8 ET Tube Uncuffed: No Tube Secured Location: lips Tube Placement Confirmation: visualized tube passing through cords, equal breath sounds bilaterally, no breath sounds over epigastrium and confirmation by capnometry Patient Tolerated Procedure: well Intubation Complications: none Course Vital Signs: Vital signs: Vital Signs Temperature 98.3 F 12/25/21 11:27 Pulse Rate 101 H 12/25/21 14:40 Respiratory Rate 17 12/25/21 14:40 Blood Pressure 103/70 12/25/21 14:40 Pulse Oximetry 89 L 12/25/21 14:40 [facility] - General Adult Medical Decision Making 61-year-old male with history of chronic alcohol dependence presenting to the emergency room for concerns for altered mental status and hypoxemia. Patient was noted to be satting at 82% on room air that improved to 87% on 6 L of oxygen. Coarse breath sounds bilaterally. While observed in the emergency room, patient continues to be more somnolent. Given unknown quality of trazadone and alcohol, decision was made to intubate for airway protection at 11:49 am. Refer to the procedure note for intubation. Lab work-up showed a white count of 3.3 with mild neutropenia. Patient has no fever. K of 2.6. We will replete potassium and magnesium today. X-ray showed negative for pneumonia. CT head negative for any acute finding. Patient is on propofol/fentanyl drip. EKG did not show any signs of sodium channel blockade. QTC within normal limit. Patient is noted to have an alcohol level of over 500. This was discussed with poison center who recommended close follow-up for QTC prolongation and sedation/seizure for the trazodone overdose. Patient did verbalize that he attempted suicide today. Patient will be placed on a 96-hour hold. Patient will need psychiatric clearance. Disposition: ICU Lab Data : 12/25/21 11:52 12/25/21 11:52 Radiology Impressions Chest X-Ray 12/25/21 11:35 IMPRESSION: 1. No acute findings. 2. Left lower lobe atelectasis 3. Endotracheal tube is above the cheng. 4. NG tube is in the stomach Head CT 12/25/21 11:35 IMPRESSION: 1. No acute intracranial abnormality. 2. Chronic sinusitis left maxillary sinus and ethmoid sinus Laboratory Results WBC 3.3 10^3/uL (4.0-10.0) L 12/25/21 11:52 RBC 4.64 10^6/uL (4.1-5.3) 12/25/21 11:52 Hgb 14.8 g/dL (11.7-16.6) 12/25/21 11:52 Hct 43.2 % (42.0-52.0) 12/25/21 11:52 MCV 93.1 fl (80-94) 12/25/21 11:52 MCH 31.9 pg (28.0-34.0) 12/25/21 11:52 MCHC 34.3 g/dL (30.0-36.0) 12/25/21 11:52 RDW 14.9 % (12.1-15.1) 12/25/21 11:52 Plt Count 166 10^3/cmm (130-400) 12/25/21 11:52 MPV 8.6 fL (7.4-10.4) 12/25/21 11:52 Neut % (Auto) 26.5 % 12/25/21 11:52 Lymph % (Auto) 59.6 % 12/25/21 11:52 [place] % (Auto) 10.6 % 12/25/21 11:52 Eos % (Auto) 1.8 % 12/25/21 11:52 Baso % (Auto) 1.2 % 12/25/21 11:52 Neut # (Auto) 0.87 10^3/uL (1.8-7.7) L* 12/25/21 11:52 Lymph # (Auto) 2.0 10^3/uL (0.8-4.8) 12/25/21 11:52 [place] # (Auto) 0.4 10^3/uL (0.2-0.9) 12/25/21 11:52 Eos # (Auto) 0.1 10^3/uL (0.0-0.8) 12/25/21 11:52 Baso # (Auto) 0.0 10^3/uL (0.0-0.1) 12/25/21 11:52 Nucleated RBC % (auto) 0 % 12/25/21 11:52 Nucleated RBCs # 0.0 /100WBC 12/25/21 11:52 Specimen Type Arterial 12/25/21 12:45 Sample Site Radial, left 12/25/21 12:45 ABG pH 7.30 (7.35-7.45) L 12/25/21 12:45 ABG pCO2 62.0 mmHg (35-45) H* 12/25/21 12:45 ABG pO2 263.0 mmHg (80.0-100.0) H 12/25/21 12:45 ABG HCO3 30.4 mmol/L (22-26) H 12/25/21 12:45 ABG Base Excess 2.1 mmol/L (-2.0-2.0) H 12/25/21 12:45 Jean-Paul Test Pos 12/25/21 12:45 Hematocrit 47.7 % (42-52) 12/25/21 12:45 O2 Delivery Device Vent 12/25/21 12:45 FiO2 100.0 % 12/25/21 12:45 Tidal Volume 0.45 12/25/21 12:45 PEEP 5.0 cmH20 12/25/21 12:45 Lead Simulation Modeling Engineer ID Gd 12/25/21 12:45 Sodium 141 mmol/L (136-145) 12/25/21 11:52 Potassium 2.6 mmol/L (3.5-5.1) L* 12/25/21 11:52 Chloride 101 mmol/L (98-107) 12/25/21 11:52 Carbon Dioxide 30 mmol/L (22-29) H 12/25/21 11:52 Anion Gap 12.6 (5-19) 12/25/21 11:52 BUN 2 mg/dL (8-23) L 12/25/21 11:52 Creatinine 0.6 mg/dL (0.7-1.2) L 12/25/21 11:52 GFR Calculation 137.4 mL/min (90-130) H 12/25/21 11:52 Glucose 107 mg/dL (65-115) 12/25/21 11:52 Calculated Osmolality 289 mOsm/kg (285-295) 12/25/21 11:52 Calcium 7.4 mg/dL (8.5-10.5) L 12/25/21 11:52 Total Bilirubin 0.4 mg/dL (0.15-1.2) 12/25/21 11:52 AST 74 U/L (0-40) H 12/25/21 11:52 ALT 27 U/L (0-41) 12/25/21 11:52 Alkaline Phosphatase 135 IU/L (40-130) H 12/25/21 11:52 Ammonia 47 umol/L (16-60) 12/25/21 11:52 Creatine Kinase 159 U/L (39-308) 12/25/21 11:52 Troponin T Baseline 27 ng/L (0-15) H 12/25/21 11:52 Troponin T 120 Minute 22.71 ng/L (0-15) H 12/25/21 13:42 Delta Troponin T -4.29 ABS# (0-10) L 12/25/21 13:42 Total Protein 7.1 g/dL (6.6-8.7) 12/25/21 11:52 Albumin 3.5 g/dL (3.5-5.2) 12/25/21 11:52 Globulin 3.6 g/dL (1.3-4.6) 12/25/21 11:52 Lipase 90 U/L (13-60) H 12/25/21 11:52 Urine Color Yellow (Yellow) 12/25/21 12:10 Urine Appearance Clear (CLEAR) 12/25/21 12:10 Urine pH 7 (5-7) 12/25/21 12:10 Ur Specific [place] 1.005 (1.005-1.030) 12/25/21 12:10 Urine Protein Neg (Negative) 12/25/21 12:10 Urine Glucose (UA) Norm (Normal) 12/25/21 12:10 Urine Ketones Negative (Negative) 12/25/21 12:10 Urine Blood Neg (Negative) 12/25/21 12:10 Urine Nitrate Negative (Negative) 12/25/21 12:10 Urine Bilirubin Neg (Negative) 12/25/21 12:10 Urine Urobilinogen Norm mg/dL (Negative) 12/25/21 12:10 Ur Leukocyte Esterase Negative (Negative) 12/25/21 12:10 Salicylates < 0.3 mg/dL (3-10) L 12/25/21 11:52 Urine Opiates Screen Negative ng/mL (Negative) 12/25/21 12:10 Acetaminophen < 5.0 ug/mL (10-30) L 12/25/21 11:52 Ur Barbiturates Screen Negative ng/mL (Negative) 12/25/21 12:10 Ur Phencyclidine Scrn Negative ng/mL (Negative) 12/25/21 12:10 Ur Amphetamines Screen Negative ng/mL (Negative) 12/25/21 12:10 U Benzodiazepines Scrn Negative ng/mL (Negative) 12/25/21 12:10 Urine Cocaine Screen Negative ng/mL (Negative) 12/25/21 12:10 U Marijuana (THC) Screen Negative ng/mL (Negative) 12/25/21 12:10 Ethyl Alcohol 531 mg/dL (0-10) H* 12/25/21 11:52 Imaging Data Other Imaging: Radiologist's impression: [address] [address] [address] Scan Report Signed Patient: Flakito Almanzar Unit #: [id number] : 1960 Age/Sex: 61 / M ADM Date: 12/25/21 Loc: ER Room/Bed: Attending Dr: Ordering Provider/Ordering MD: Eder Stallworth MD Date of Service: 12/25/21 Procedure(s): CT head wo con* [id number] Accession Number(s): [id number] Report Number: [id number] PROCEDURE INFORMATION: Exam: CT Head Without Contrast Exam date and time: 12/25/2021 2:23 PM Age: 61 years old Clinical indication: Altered mental status/memory loss; Additional info: AMS TECHNIQUE: Imaging protocol: Computed tomography of the head without contrast. Radiation optimization: All CT scans at this facility use at least one of these dose optimization techniques: automated exposure control; mA and/or kV adjustment per patient size (includes targeted exams where dose is matched to clinical indication); or iterative reconstruction. COMPARISON: CT head wo con* [id number] 10/24/2021 10:32 PM RADIATION DOSE METRICS: Total DLP (mGy-cm): 2111.46 FINDINGS: Brain: Normal. No hemorrhage. Unremarkable white matter. No mass effect. Cerebral ventricles: No ventriculomegaly. Paranasal sinuses: The mucosal edema is seen in the left maxillary sinus, the left ethmoid sinuses, and the right nasal region. These findings correspond to chronic sinusitis. The sinuses are otherwise expanded and clear. Mastoid air cells: Visualized mastoid air cells are well aerated. Bones/joints: Unremarkable. No acute fracture. Soft tissues: Unremarkable. CT/CT head wo con* [id number] IMPRESSION: 1. No acute intracranial abnormality. 2. Chronic sinusitis left maxillary sinus and ethmoid sinus ? Dictated By: Kan Chavez Signed By: Kan Chavez Signed Date/Time: 12/25/21 1441 DD/ [address] [address] XRay Report Signed Patient: Flakito Almanzar Unit #: [id number] : 1960 Age/Sex: 61 / M ADM Date: 12/25/21 Loc: ER Room/Bed: Attending Dr: Ordering Provider/Ordering MD: Eder Stallworth MD Date of Service: 12/25/21 Procedure(s): XR chest 1V portable 18220 Accession Number(s): [id number] Report Number: [id number] PROCEDURE INFORMATION: Exam: XR Chest Exam date and time: 12/25/2021 12:12 PM Age: 61 years old Clinical indication: Device placement; Other: Ng and et placement; Additional info: AMS TECHNIQUE: Imaging protocol: XR of the chest. Views: 1 view. COMPARISON: CR (CHEST, ) 12/01/2021 4:30 AM FINDINGS: Tubes, catheters and devices: there is a endotracheal tube in place 5.9 cm above the cheng. There is NG tube in place extending into the stomach. Lungs: Left lower lobe atelectasis is seen. Low lung volumes are present. Pleural spaces: Unremarkable. No pleural effusion. No pneumothorax. Heart/Mediastinum: Unremarkable. No cardiomegaly. Bones/joints: Unremarkable. XR/XR chest 1V portable [id number] IMPRESSION: 1. No acute findings. 2. Left lower lobe atelectasis 3. Endotracheal tube is above the cheng. 4. NG tube is in the stomach ? Dictated By: Kan Chavez Signed By: Kan Chavez Signed Date/Time: 12/25/21 1255 DD/ 1212 Critical Care Time Critical Care Time: Critical Care Time: Yes Total Critical Care Time: 35 Attestation: The high probability of a clinically significant, sudden or life threatening deterioration of the patient's Respiratory and neurological system(s) required my full and direct attention, intervention and personal management. The critical care time is as shown. This time is in addition to time spent performing any reported procedures but includes the following: [x] Data and vital sign review and interpretation [x] Patient assessment, examination and intervention [x] Documentation [x] Medication orders and management Discharge Plan Discharge Patient Disposition: Admitted As Inpatient Clinical Impression: Altered mental status, Acute hypoxemic respiratory failure, Hypokalemia, Intentional overdose of trazodone, Alcohol intoxication, Suicide attempt Condition: Stable Coding Level of Care Code ED Clay Miller for Osmin Fwd Exam Detailed
[2021-12-25] MEDS: vecuronium 10 mg SDV IVP (11:49)
[2021-12-25 12:00] LABS: Basophils % 1.2 %; Eosinophils # 0.1 10^3/uL (0.0-0.8); Eosinophils % 1.8 %; Hematocrit 43.2 % (42.0-52.0); Hemoglobin 14.8 g/dL (11.7-16.6); Lymphocytes % 59.6 %; Mean Corpuscular HGB Conc 34.3 g/dL (30.0-36.0); Mean Corpuscular Hemoglobin 31.9 pg (28.0-34.0); Mean Corpuscular Volume 93.1 fl (80-94); Mean Platelet Volume 8.6 fL (7.4-10.4); Monocytes # 0.4 10^3/uL (0.2-0.9); Monocytes % 10.6 %; Neutrophils % 26.5 %; Nucleated Red Blood Cells % 0 %; Platelet Count 166 10^3/cmm (130-400); Red Blood Count 4.64 10^6/uL (4.1-5.3); Red Cell Distribution Width 14.9 % (12.1-15.1); White Blood Count 3.3 10^3/uL (4.0-10.0)
[2021-12-25 12:18] LABS: Slide Review Slide Review Perform
--- NOTE | 2021-12-25 12:19 | PC.NURSE ---
This RN spoke with poison control, unknown ingestion time or type of trazadone (extended vs immediate release). The following information received: For immediate release: 1-2hr peak with a 4hr half life, Extended Release: 9hr peak with a 10hr half life. Symptoms of OD include coma, respiratory depression, QT prolongation. Ensure Potassium and Magnesium are on the high side of normal to manage QT issues, otherwise supportive care. Trazadone has similar effects of alcohol so the two combined potentiate eachother.
[2021-12-25 12:20] LABS: Neutrophils # 0.87 10^3/uL (1.8-7.7)
[2021-12-25 12:21] LABS: Alanine Aminotransferase 27 U/L (0-41); Albumin Level 3.5 g/dL (3.5-5.2); Alkaline Phosphatase 135 IU/L (40-130); Anion Gap 12.6 (5-19); Aspartate Amino Transferase 74 U/L (0-40); Blood Urea Nitrogen 2 mg/dL (8-23); Calcium 7.4 mg/dL (8.5-10.5); Carbon Dioxide 30 mmol/L (22-29); Chloride 101 mmol/L (98-107); Creatine Phosphokinase 159 U/L (39-308); Globulin 3.6 g/dL (1.3-4.6); Glomerular Filtration Rate 137.4 mL/min (90-130); Glucose 107 mg/dL (65-115); Lipase 90 U/L (13-60); Osmolality Calculated 289 mOsm/kg (285-295); Sodium 141 mmol/L (136-145); Total Bilirubin 0.4 mg/dL (0.15-1.2); Total Protein 7.1 g/dL (6.6-8.7)
[2021-12-25 12:22] LABS: Ammonia 47 umol/L (16-60); Troponin(5th) Baseline 27 ng/L (0-15)
[2021-12-25 12:23] LABS: Acetaminophen < 5.0 ug/mL (10-30); Salicylate < 0.3 mg/dL (3-10)
[2021-12-25 12:24] LABS: Potassium 2.6 mmol/L (3.5-5.1)
[2021-12-25 12:31] LABS: Add Urine Microscopic? NO; Charge for UA Resulting for Rev
--- NOTE | 2021-12-25 12:31 | PC.PHAR ---
PT UNABLE TO VERIFY DUE TO INTUBATION
[2021-12-25] MEDS: propofol 1,000 MG/100 ML INJ 11.98 MG IV (12:32)
[2021-12-25] MEDS: sodium chloride 0.9% 1,000 ML 999 ML IV (12:35)
[2021-12-25 12:38] LABS: Bilirubin Urine Neg (Negative); Blood Urine Neg (Negative); Glucose Urine UA Norm (Normal); Ketones Urine Negative (Negative); Leukocyte Esterase Urine Negative (Negative); Nitrate Urine Negative (Negative); Protein Urine Neg (Negative); Specific Gravity, Urine 1.005 (1.005-1.030); Urine Appearance Clear (CLEAR); Urine Color Yellow (Yellow); Urobilinogen Urine Norm (Negative); pH Urine 7 (5-7)
[2021-12-25 12:44] LABS: Amphetamines Screen Urine Negative (Negative); Barbiturates Screen Urine Negative (Negative); Benzodiazepines Screen Urine Negative (Negative); Cocaine Screen Urine Negative (Negative); Opiate Screen Urine Negative (Negative); PCP Screen Urine Negative (Negative); THC Screen Urine Negative (Negative)
[2021-12-25 12:47] LABS: Alcohol Level 531 mg/dL (0-10)
--- NOTE | 2021-12-25 12:47 | PC.NURSE ---
reported to Dr Stallworth bp of 175/116 no orders given pt resting comfortable
--- NOTE | 2021-12-25 12:48 | PC.NURSE ---
ETOH [address] Stallworth.
[2021-12-25 13:01] LABS: Arterial Blood Gas Hematocrit 47.7 % (42-52); Base Excess ABG 2.1 mmol/L (-2.0-2.0); Blood Gas Allen Test Pos; Blood Gas Operator Identificat GD; Blood Gas Sample Site Radial, left; Blood Gas Sample Type Arterial; Blood Gas Tidal Volume 0.45; HCO3 ABG 30.4 mmol/L (22-26); Oxygen Device VENT
[2021-12-25] MEDS: magnesium sulfate premix 2 GM/50 ML PIGGYBACK IV (13:01)
--- NOTE | 2021-12-25 13:35 | ECG_ITS ---
[facility] Test Date: 2021-12-25 Pat Name: Flakito Almanzar Department: Room: Gender: Male Tuck Pointer Helper: : 1960 Requested By: Eder Stallworth Order Number: [id number] Reading MD: Josue Maier M.D. Measurements Intervals [place] Rate: 97 P: 50 CA: 173 QRS: 48 QRSD: 101 T: 75 QT: 381 QTc: 486 Interpretive Statements SINUS RHYTHM NONSPECIFIC ST & T-WAVE ABNORMALITY Compared to ECG 12/25/2021 11:58:46 T-wave abnormality now present Electronically Signed On 12-26-2021 16:28:09 CDT by Josue Maier M.D. [id number]
[2021-12-25] MEDS: potassium chloride premix 100 ML 25 MEQ IV (13:46)
--- NOTE | 2021-12-25 13:55 | PC.NURSE ---
pt's mother at bedside, she reports he has told her yesterday that he was going to drink himself to
[2021-12-25 14:05] LABS: Troponin 5 2HR 22.71 ng/L (0-15)
[2021-12-25 14:06] LABS: Troponin 5 2HR Delta -4.29 ABS# (0-10)
--- NOTE | 2021-12-25 14:06 | PC.NURSE ---
pt fighting tube increased sedation
--- NOTE | 2021-12-25 14:43 | PM.HP ---
Providers/Chief Complaint Primary Care Provider: Rasheed Spivey MD Chief Complaint: AMS History of Present Illness Flakito Almanzar is a 61 year old male with past medical history of polysubstance abuse, chronic alcohol dependence, COPD, atrial fibrillation, depression presented to the hospital for altered mental status and suicidal attempt. He told the ER physician that he took a bunch of trazodone tablets unable to tell us how much the quantity was but he said he took a bunch. He was confused and altered. Unable to follow commands. He also reported feeling suicidal earlier in the morning and tried to commit suicide by taking these tablets. Saturations were 82% on room air. He also vomited. Saturations continued to drop. He was quite drowsy. He was intubated for airway protection. Alcohol level 531. He has been admitted multiple times in the past for suicidal attempt and has been on 96 hours hold. Patient is on a 96-hour hold at this time and is intubated currently. Hospitalist was called for admission. On reviewing his previous charts it seems that patient has overdosed on Eliquis, sildenafil in the past for attempting suicide as well. He has had multiple stays in n.p.u. Vitals on arrival to ED: 123/70, saturating 88% on room air, respiratory rate 17, pulse 101, temperature 98.3. Work-up reveals mild neutropenia, potassium 2.6, WBC 3.3. Magnesium and potassium repleted. Chest x-ray negative for pneumonia. CT head negative for acute finding. Patient placed on propofol and fentanyl drip. EKG did not show any signs of sodium channel blockade. QTc within normal limit. Alcohol level over 500. Poison Control Center was called who recommended close follow-up for QTC prolongation and sedation/seizure for trazodone overdose. He also said trazodone peak of onset is about 4 hours. Unable to do review of systems due to patient being intubated. Unable to obtain any history due to patient being intubated. All of the above information were obtained from the chart and the ER physician. Medications/Allergies Home Medications Medication Instructions Recorded Confirmed Last Taken Type dolutegravir 50 mg-lamivudine 300 1 tab PO QAM 04/11/20 12/25/21 11/25/20 History mg tablet (Dovato) sildenafil (pulm.hypertension) 20 20 mg PO TID 04/11/20 12/25/2111/25/21 History mg tablet apixaban 5 mg tablet (Eliquis) 5 mg PO BID 06/29/20 12/25/21 11/21/20 History macitentan 10 mg tablet (Opsumit) 10 mg PO DAILY 06/29/20 12/25/21 11/25/20 History multivitamin 1 tab PO DAILY 06/29/20 12/25/21 11/25/20 History mirtazapine 15 mg tablet 15 mg PO BEDTIME 02/10/21 12/25/21 03/11/21 History testosterone 20.25 mg/1.25 gram 2 pump TOPICAL QAM 02/10/21 12/25/21 Unknown History (1.62 %) transdermal gel pump trazodone 150 mg tablet 150 - 300 mg PO BEDTIME 02/10/21 12/25/21 Unknown History Cam Walker #1 ea 02/24/21 12/25/21 Unknown Rx albuterol sulfate 90 mcg/actuation 2 inh INHALATION Q4H PRN #18 gm 10/25/21 12/25/21 Unknown Rx aerosol inhaler crofelemer 125 mg tablet,delayed 125 mg PO BID 10/25/21 12/25/21 Unknown History release (Mytesi) prednisolone acetate 1 % eye 1 drp OPHTHALMIC (EYE) BID 10/25/21 12/25/21 Unknown History drops,suspension sulfamethoxazole 800 1 tab PO .MON,WED,Sun10/25/21 12/25/21 Unknown History mg-trimethoprim 160 mg tablet Allergies Allergy/AdvReac Type Severity Reaction Status Date / Time No Known Allergies Allergy Verified 10/25/21 08:52 PFSH Acute PFSH: Medical History Alcohol dependence Alcohol use disorder Anorexia Atrial fibrillation Closed fractures involving multiple regions of right lower extremity Colon polyps COPD (chronic obstructive pulmonary disease) Severe COPD Deliberate medication overdose Depression Depressive disorder Diverticulitis / Diverticulosis GI bleed Was taken off Coumadin for a month in 2015 after a bleeding gastric ulcer, currently on Eliquis History of peptic ulcer disease HIV (human immunodeficiency virus infection) Hypogonadism Liver tumor Lymphoma 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 No evidence of recurrence, 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 getting 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 FIELD 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 COACH prophylaxis with intrathecal methotrexate with prophylactic radiation to right testicle, CHOP treatment Major depressive disorder Meningitis Orchialgia Posttraumatic stress disorder Pulmonary embolism DVT of right leg, 2009 Pulmonary hypertension After PE Suicide attempt Surgical History H/O colonoscopy 2001 -diverticulosis, colon polyps / 2005 -diverticulosis, small telangiectasia / 01/2016 -diverticulosis with intrinsic stenosis and sigmoid H/O esophagogastroduodenoscopy 2005 -reflux esophagitis, superficial gastric erosions with hemorrhagic gastritis, duodenitis /2008 -reflux esophagitis, gastritis, small chronic gastric ulcer H/O hemorrhoidectomy History of orchiectomy, unilateral L -- diffuse large B-cell lymphoma Family History Other No pertinent family history Social History Smoking and tobacco status: current every day smoker (pack a day) cigarettes Packs smoked per day: 1 Alcohol intake: current Lives independently: Yes Housing: House Vitals/I&O/Wt Last Vital Signs Temp 98.3 F 12/25/21 11:27 Pulse 96 12/25/21 13:55 Resp 14 12/25/21 14:33 BP 98/64 12/25/21 13:55 Pulse Ox 89 L 12/25/21 13:55 12/24/21 12/25/21 12/25/21 22:59 06:59 14:59 Intake Total 102.098 / 102.098 Balance 102.098 / 102.098 Weight last 48 hrs Weight 99.79 kg Physical Exam Narrative: General: Alert oriented x3, patient seen HEENT: Normocephalic, atraumatic, EOMI, breathing Cardio: Regular rate rhythm, normal S1-S2, no murmurs rubs gallops, JVD Respiratory: Good bilateral air entry, no wheezes no rhonchi appreciated GI: Abdomen soft, nontender, nondistended, bowel sounds + Behavior: Appropriate and cooperative Extremities: Pulses 2+, no edema, no cyanosis Urinary Catheter Management: Barba: Cath Placed During This Visit: yes Urinary Catheter Date of Insertion: 12/25/21 Urinary Catheter Time of Insertion: 12:30 Data : 12/25/21 11:52 12/25/21 11:52 Micro: Microbiology 12/25/21 12:50 Gram Stain - Final Sputum - Endotracheal Tube Aspirate A&P Assessment and plan (1) Altered mental status: Status: Acute (2) Acute hypoxemic respiratory failure: Status: Acute (3) Hypokalemia: Status: Acute (4) Intentional overdose of trazodone: Status: Acute (5) Alcohol intoxication: Status: Acute (6) Suicide attempt: Status: Acute (7) Alcohol use disorder, severe, dependence: Status: Acute (8) HIV (human immunodeficiency virus infection): Status: Acute Qualifiers: HIV symptom status: asymptomatic, with no history of HIV-related illness Qualified Code(s): Z21 - Asymptomatic human immunodeficiency virus [HIV] infection status Plan #Suicide attempt #Overdose on trazodone #Intubated for airway protection #Alcohol Abuse/Alcohol Intoxication ? Continue fentanyl propofol. ? Serial EKGs to watch for QT prolongation ? Seizure precautions ? 96-hour hold ? Once stable medically and extubated will transfer to psychiatry for further management - Monitor for seizure. - Hold all home medications are this time. - Thiamine, Folic acid #History of atrial fibrillation ? On Eliquis 5 mg twice daily at home. I do not see any andre blocking agent on his home medication Full code DVT prophylaxis Heparin Keep NPO Attestations Medical Necessity Statement*: 96-hour hold, suicide attempt. Will be here longer than 96 hours as patient is intubated today. 96-hour hold will start once he is extubated. Coding Level of Care Code Acute Home Appliance Technician for Osmin Ordonez Diagnoses Altered mental status R41.82 Acute hypoxemic respiratory failure J96.01 Hypokalemia E87.6 Intentional overdose of trazodone T43.212A Alcohol intoxication F10.929 Suicide attempt T14.91XA Alcohol use disorder, severe, dependence F10.20 HIV (human immunodeficiency virus infection) Z21 HIV symptom status: asymptomatic, with no history of HIV-related illness
[2021-12-25 15:04] LABS: Lactic Sepsis W/Reflex 2.8 mmol/L (0.5-2.2)
[2021-12-25 15:08] LABS: Acetaminophen < 5.0 ug/mL (10-30); Salicylate < 0.3 mg/dL (3-10)
[2021-12-25 15:26] LABS: ABG PCO2 55.4 mmHg (35-45); ABG PH Result 7.33 (7.35-7.45); Alveolar-Arterial Oxygen Gradi 36.9 mmHg (5-10); Base Excess ABG 1.7 mmol/L (-2.0-2.0); Blood Gas Allen Test Pos; Blood Gas Operator Identificat GD; Blood Gas Sample Site Radial, left; Blood Gas Sample Type Arterial; Carboxyhemoglobin 1.9 %THgb (0.4-20.1); HGB O2 Sat 89.5 % (95-100); Methemoglobin 0.5 % (0.4-1.5); Oxygen Device VENT; Oxygen Saturation ABG 91.7; PO2 ABG 73.2 mmHg (80.0-100.0); Potassium Level - ABG 3.1 mmol/L (3.5-5.0); Total Hemoglobin 14.7 g/dL (14-18)
--- NOTE | 2021-12-25 15:26 | PC.NURSE ---
emptied carbajal 800ml output
[2021-12-25 16:01] LABS: Reflex Lactate Order REFLEX LACTIC ORDERD
[2021-12-25] MEDS: sodium chloride 0.9% 1,000 ML 100 ML IV (16:15)
[2021-12-25] MEDS: heparin 5,000 unit/mL INJ 1 mL 5000 UNIT SUBCUT (16:16)
[2021-12-25] MEDS: propofol 1,000 MG/100 ML INJ 26.94 MG IV (16:57)
[2021-12-25 16:58] LABS: Lactic Acid level (Lactate) 2.1 mmol/L (0.5-2.2)
--- NOTE | 2021-12-25 17:35 | ECG_ITS ---
[facility] Test Date: 2021-12-25 Pat Name: Flakito Almanzar Department: Room: [facility]05 Gender: Male Community Board Member: : 1960 Requested By: Eder Stallworth Order Number: [id number] Papo MD: Josue Maier M.D. Measurements Intervals [place] Rate: 87 P: 58 [place]: 155 QRS: 57 QRSD: 87 T: 70 QT: 418 QTc: 504 Interpretive Statements SINUS RHYTHM PROLONGED QT INTERVAL Compared to ECG 12/25/2021 13:46:07 Prolonged QT interval now present T-wave abnormality no longer present Electronically Signed On 12-26-2021 16:28:36 CDT by Josue Maier M.D. [email or web address] [email or web address] [email or web address] hospitalicix/store/[id number]
[2021-12-25 17:59] LABS: ABG PCO2 52.7 mmHg (35-45); ABG PH Result 7.34 (7.35-7.45); Alveolar-Arterial Oxygen Gradi 1.2 mmHg (5-10); Arterial Blood Gas Hematocrit 43.9 % (42-52); Base Excess ABG 1.7 mmol/L (-2.0-2.0); Blood Gas Allen Test Pos; Blood Gas Operator Identificat GD; Blood Gas Sample Site Radial, left; Blood Gas Sample Type Arterial; Carboxyhemoglobin 1.5 %THgb (0.4-20.1); HCO3 ABG 28.5 mmol/L (22-26); HGB O2 Sat 90.5 % (95-100); Methemoglobin 0.6 % (0.4-1.5); Oxygen Device VENT; Oxygen Saturation ABG 92.5; PO2 ABG 74.3 mmHg (80.0-100.0); Potassium Level - ABG 3.4 mmol/L (3.5-5.0); Total Hemoglobin 14.3 g/dL (14-18)
[2021-12-25 18:17] LABS: Troponin 5 6HR 43.89 ng/L (0-15)
[2021-12-25 18:36] LABS: Troponin 5 6HR Delta 16.89 ng/L (0-12)
[2021-12-25] MEDS: folic acid 1 MG, multivitamin inj 10 ML, thiamine 100 MG in sodium chloride 0.9% 1,000 ML 252.8 MG IV (18:42)
--- NOTE | 2021-12-25 18:47 | USCV_ITS ---
Flakito Almanzar Age: 61 Gender: M : 1960 Exam Date: 12/25/2021 19:10 Ordering Phys: Kenny Osborn MD Technologist: Vishal Luis Exam Location: [facility] [place] Indication: syncope BP: 97 / 60 HR: 91 Rhythm: Sinus Technical Quality: Adequate MEASUREMENTS (Male / Female) Normal Values 2D ECHO LV Diastolic Diameter PLAX 4.6 cm 4.2 - 5.9 / 3.9 - 5.3 cm LV Systolic Diameter PLAX 3.0 cm IVS Diastolic Thickness 2.1 cm 0.6 - 1.0 / 0.6 - 0.9 cm IVS Systolic Thickness 3.0 cm LVPW Diastolic Thickness 1.3 cm 0.6 - 1.0 / 0.6 - 0.9 cm LVPW Systolic Thickness 2.5 cm LVOT Diameter 2.1 cm LV Ejection Fraction 2D Teich 46.8 % LV Ejection Fraction MOD 2C 44.0 % LV Ejection Fraction 2C AL 43.5 % LA Diameter 4.5 cm LA Width 4.7 cm LA Height 5.5 cm RA Width 3.4 cm RA Height 5.8 cm Aorta at Sinotubular Diameter 2.5 cm IVC Diameter 1.7 cm M-MODE Aortic Annulus Diameter 3.2 cm LA Ao Ratio MM 1.4 MV E Point Septal Separation 0.8 cm DOPPLER AV Peak Velocity 175.3 cm/s LVOT Peak Velocity 88.0 cm/s AV Area Cont Eq vti 2.4 cm squared AV Area Cont Eq pk 1.8 cm squared MV Area PHT 5.0 cm squared Mitral E to A Ratio 0.8 MV E' Velocity 35.5 cm/s Mitral E to MV E' Ratio 7.5 Mitral E to LV E' Lateral Ratio 6.5 Mitral E to LV E' Septal Ratio 8.9 Right Atrial Pressure 15.0 mmHg PV Peak Velocity 141.0 cm/s FINDINGS Left Ventricle Normal left ventricular size. LV systolic function is normal with EF of 55-60%. No regional wall motion abnormalities. Grade 1 diastolic dysfunction Right Ventricle The right ventricle is normal in size and function. Right Atrium The right atrium is normal in size. Left Atrium The left atrium is normal in size. Mitral Valve Mild mitral annular calcification without significant stenosis or prolapse. There is trace mitral regurgitation. Aortic Valve Grossly normal. No significant aortic stenosis or regurgitation. Tricuspid Valve Structurally normal tricuspid valve without significant stenosis. Trace tricuspid regurgitation. Insufficient TR jet to calculate RVSP Pulmonic Valve Not well-visualized Pericardium Normal pericardium without effusion. Aorta Normal ascending aorta dimension. IVC CONCLUSIONS Technically limited quality echocardiogram because of poor ultrasonic windows. LV systolic function is normal with EF 55-60% Grade 1 diastolic dysfunction. Mild mitral annular calcification is seen. Trace mitral regurgitation. Trace tricuspid regurgitation. Compared to prior echocardiogram from 2019, no significant changes are seen Jori Cisse MD (Electronically Signed) Final Date: 26 December 2021 10:41 S
[2021-12-25] MEDS: enoxaparin 80 mg/0.8 mL Syringe 70 MG SUBCUT (20:12)
[2021-12-25] MEDS: ipratropium-albuterol 3 mL Neb INHALATION (20:13)
--- NOTE | 2021-12-25 20:30 | ECG_ITS ---
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 Measurements Intervals [place] Rate: 94 P: 55 MS: 163 QRS: 57 QRSD: 92 T: 71 QT: 405 QTc: 508 Interpretive Statements SINUS RHYTHM Compared to ECG 12/25/2021 17:14:46 Prolonged QT interval no longer present Electronically Signed On 12-26-2021 16:29:10 CDT by Josue Maier M.D. [email or web address].[email or web address] Secure SolutionsSocialDiabetesdoctors [email or web address]/store/[id number]
[2021-12-25 20:53] LABS: Creatine Phosphokinase 123 U/L (39-308); D Dimer 4.48 ug/mIFEU (0-0.59)
[2021-12-25] MEDS: propofol 1,000 MG/100 ML INJ 34.73 MG IV (21:00)
--- NOTE | 2021-12-25 22:43 | PC.NURSE ---
EKG from 1447 was not charted by day shift. Completing task on work list only
--- NOTE | 2021-12-25 22:50 | PC.NURSE ---
Unable to complete immunization assessment due to patient being sedated and intubated
--- NOTE | 2021-12-25 23:10 | PC.NURSE ---
Pt is intubated and sedated, room close to nurse's station
--- NOTE | 2021-12-25 23:30 | ECG_ITS ---
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 Measurements Intervals [place] Rate: 90 P: 62 [place]: 158 QRS: 74 QRSD: 88 T: 89 QT: 431 QTc: 529 Interpretive Statements SINUS RHYTHM PROLONGED QT INTERVAL Compared to ECG 12/25/2021 20:10:21 Prolonged QT interval now present Electronically Signed On 12-26-2021 16:30:58 CDT by Josue Maier M.D. [email or web address] pickerington methodist hospitalXterprise Solutions/store/[id number]
[2021-12-25] MEDS: propofol 1,000 MG/100 ML INJ 47.9 MG IV (23:33)
[2021-12-26] VITALS (40 sets, daily range): BP systolic 86–135; BP diastolic 58–90; PULSE 74–125; RESP 16–22; TEMP 36.7–37.7; O2SAT 88–93
[2021-12-26] MEDS: sodium chloride 0.9% 1,000 ML 100 ML IV ×2 (01:50→20:28)
--- NOTE | 2021-12-26 02:30 | ECG_ITS ---
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 Measurements Intervals [place] Rate: 87 P: 72 [place]: 162 QRS: 71 QRSD: 88 T: 76 QT: 458 QTc: 554 Interpretive Statements SINUS RHYTHM WITH OCCASIONAL VENTRICULAR PREMATURE COMPLEXES MINIMAL ST DEPRESSION [0.025+ mV ST DEPRESSION] PROLONGED QT INTERVAL CRITICAL TEST RESULT Compared to ECG 12/25/2021 23:56:20 Ventricular premature complex(es) now present ST (T wave) deviation now present Electronically Signed On 12-26-2021 16:31:12 CDT by Josue Maier M.D. [email or web address].Tolera TherapeuticsInporiaashtabula county medical center.[employer]er [employer]/store/[id number]
[2021-12-26] MEDS: ipratropium-albuterol 3 mL Neb INHALATION ×4 (02:43→20:14)
[2021-12-26] MEDS: propofol 1,000 MG/100 ML INJ 47.9 MG IV (03:00)
[2021-12-26 03:50] LABS: Glucose Point of Care 121 mg/dL (70-110)
[2021-12-26 05:16] LABS: Basophils % 0.3 %; Hemoglobin 13.3 g/dL (11.7-16.6); Lymphocytes # 0.5 10^3/uL (0.8-4.8); Lymphocytes % 15.7 %; Mean Corpuscular HGB Conc 32.4 g/dL (30.0-36.0); Mean Corpuscular Hemoglobin 31.5 pg (28.0-34.0); Mean Corpuscular Volume 97.2 fl (80-94); Mean Platelet Volume 8.8 fL (7.4-10.4); Monocytes # 0.2 10^3/uL (0.2-0.9); Monocytes % 5.7 %; Neutrophils # 2.58 10^3/uL (1.8-7.7); Nucleated Red Blood Cells % 0 %; Platelet Count 159 10^3/cmm (130-400); Red Blood Count 4.22 10^6/uL (4.1-5.3); Red Cell Distribution Width 15.2 % (12.1-15.1); White Blood Count 3.3 10^3/uL (4.0-10.0)
[2021-12-26] MEDS: propofol 1,000 MG/100 ML INJ 29.94 MG IV ×2 (05:18→10:29)
[2021-12-26 05:24] LABS: INR 1.04 (0.8-1.2)
--- NOTE | 2021-12-26 05:30 | ECG_ITS ---
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 Measurements Intervals [place] Rate: 125 P: -40 AR: 138 QRS: 58 QRSD: 89 T: 69 QT: 371 QTc: 536 Interpretive Statements SINUS TACHYCARDIA ABNORMAL RHYTHM ECG Compared to ECG 12/26/2021 02:38:56 Sinus rhythm no longer present Ventricular premature complex(es) no longer present ST (T wave) deviation no longer present Prolonged QT interval no longer present Electronically Signed On 12-26-2021 16:32:02 CDT by Josue Maier M.D. [email or web address] Media.IPNetVoiceONE RECOVERYmercy health defiance hospital.Regenerate/store/[id number]
[2021-12-26 05:32] LABS: Alanine Aminotransferase 22 U/L (0-41); Albumin Level 3.1 g/dL (3.5-5.2); Alkaline Phosphatase 123 IU/L (40-130); Anion Gap 17.4 (5-19); Aspartate Amino Transferase 53 U/L (0-40); Blood Urea Nitrogen 5 mg/dL (8-23); Carbon Dioxide 24 mmol/L (22-29); Chloride 107 mmol/L (98-107); Globulin 3.4 g/dL (1.3-4.6); Glomerular Filtration Rate 137.4 mL/min (90-130); Glucose 126 mg/dL (65-115); Magnesium 1.9 mg/dL (1.7-2.3); Osmolality Calculated 299 mOsm/kg (285-295); Phosphorus 4.4 mg/dL (2.5-4.5); Potassium 3.4 mmol/L (3.5-5.1); Sodium 145 mmol/L (136-145); Total Bilirubin 0.4 mg/dL (0.15-1.2); Total Protein 6.5 g/dL (6.6-8.7)
[2021-12-26 05:55] LABS: ABG PCO2 56.3 mmHg (35-45); ABG PH Result 7.27 (7.35-7.45); Arterial Blood Gas Hematocrit 41.7 % (42-52); Base Excess ABG -1.8 mmol/L (-2.0-2.0); Blood Gas Allen Test Pos; Blood Gas Sample Site Radial, right; Blood Gas Sample Type Arterial; Blood Gas Tidal Volume 0.52; Oxygen Device VENT; PO2 ABG 77.8 mmHg (80.0-100.0)
[2021-12-26] MEDS: enoxaparin 80 mg/0.8 mL Syringe 70 MG SUBCUT ×2 (06:07→21:08)
[2021-12-26 06:15] LABS: Glucose Point of Care 122 mg/dL (70-110)
--- NOTE | 2021-12-26 08:01 | USCV_ITS ---
Flakito Almanzar Age: 61 Gender: M : 1960 Exam Date: 12/26/2021 14:13 Ordering Phys: Kenny Osborn MD Technologist: Brie Zambrano Exam [place] [facility] [place] [facility] [place] Indication: Pt on vent hypoxia HISTORY: Hypoxia PROCEDURES: The venous duplex Doppler examination of both lower extremities was performed in the standard fashion. The following venous structures were evaluated: common femoral vein, profunda vein, proximal portion of the greater saphenous vein, superficial femoral vein, and the popliteal vein. In addition, the posterior tibial and peroneal trunk were evaluated. Serial compression, augmentation maneuvers, and spectral Doppler flow evaluation were performed. FINDINGS: Evidence of acute occlusive deep vein thrombosis in the right common femoral vein through the popliteal and peroneal and posterior tibial vein with abnormal flow dynamics. Left leg, no DVT seen in any vessel examined CONCLUSIONS Acute right lower extremity deep venous thrombosis. Patient's nurse notified at time of exam. Dr. Sanam Nash DO (Electronically Signed) Final Date: 26 December 2021 15:32 S
--- NOTE | 2021-12-26 08:30 | ECG_ITS ---
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 Measurements Intervals [place] Rate: 125 P: -53 IN: 129 QRS: 57 QRSD: 88 T: 69 QT: 367 QTc: 530 Interpretive Statements SINUS TACHYCARDIA ABNORMAL RHYTHM ECG Compared to ECG 12/26/2021 05:33:23 No significant changes Electronically Signed On 12-26-2021 16:32:07 CDT by Josue Maier M.D. [id number]
[2021-12-26] MEDS: dexmedeTOMIDine 0.9 % NaCL 400 MCG/100 ML PREMIX IV (08:51)
[2021-12-26 09:16] LABS: ABG PCO2 48.4 mmHg (35-45); ABG PH Result 7.33 (7.35-7.45); Arterial Blood Gas Hematocrit 41.2 % (42-52); Base Excess ABG -1.1 mmol/L (-2.0-2.0); Blood Gas Operator Identificat GD; Blood Gas Sample Site Brachial, right; Blood Gas Sample Type Arterial; Blood Gas Tidal Volume 0.52; HCO3 ABG 25.4 mmol/L (22-26); Oxygen Device VENT
--- NOTE | 2021-12-26 10:04 | PC.CHAP ---
Pastoral Care Encounter/Spiritual Assessment Type of Contact [] Declined chief librarian branch or department visit [] Patient/Family/Request visit [] Outpatient visit [] Follow-up visit [] Physician referral [] Code/Alert [x] Routine visit [] Staff referral [] Actively dying [x] Patient sleeping [] Family support [] [] Out of room [] Palliative care [] [] Receiving care in room [] Pre-surgical visit [] Trauma [] Long length of stay [x] ICU visit [x] Other: vent Relational/Emotional Strength [] Patient feels connected with others/family/visitors/staff [] Distress [] Loneliness/isolation [] Abandonment Spirituality of Patient [] Person of Talia [] Attends Protestant of their Talia [] Believes in Prayer [] Reads Bible or Sabianist materials [] There are Spiritual issues to be addressed Engineering Technical Analyst Interventions [x] Prayer [] Active listening [] Non-anxious presence [] Spiritual/emotional support [] Crisis/trauma care [] Spiritual counseling [] Bereavement support [] Provided bereavement packet [] Provided Bible/devotional materials [] Provided toy/stuffed animal, coloring book to patient or family member [] Provided Communion [] Anointing/[place] [] Salvation [x] Completed spiritual assessment [] Other: Impact on Illness or Injury [] Angry [] Fearful [] Anxious [] Often cries [] Exhaustion [] Unable to work [] Unable to attend sikhism [] Unable to walk/stand [] Unable to read [] Unable to drive [] Unable to eat/drink [] Unable to sleep [] Unable to be with family [] Patient intubated [] Other: Summary Time spent with patient
[2021-12-26] MEDS: aspirin 81 mg EC Tablet PO (10:14)
[2021-12-26] MEDS: multivitamin therapeutic Tablet 1 TAB PO (10:14)
[2021-12-26] MEDS: pantoprazole 40 mg SDV IVP (10:16)
[2021-12-26] MEDS: sodium chloride 0.9% 500 ML IV (10:29)
[2021-12-26] MEDS: folic acid 5 mg/ml MDV 10mL 1 MG IVP (10:34)
--- NOTE | 2021-12-26 11:30 | ECG_ITS ---
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 Measurements Intervals [place] Rate: 119 P: 243 NM: 223 QRS: 70 QRSD: 89 T: 73 QT: 357 QTc: 502 Interpretive Statements ECTOPIC ATRIAL TACHYCARDIA WITH FIRST DEGREE AV BLOCK Compared to ECG 12/26/2021 05:34:18 First degree AV block now present Sinus tachycardia no longer present Electronically Signed On 12-26-2021 16:33:42 CDT by Josue Maier M.D. [email or web address].Flumesselect medical specialty hospital - cantonGourmant/store/[id number]
--- NOTE | 2021-12-26 12:58 | P.PN_ITS ---
Subjective Subjective: Respiratory acidosis, repeat ABG did show improvement Patient was waking up on maximum dose of fentanyl and propofol, added Precedex and Versed Potassium improved Patient was able to follow commands, tremors noted of his upper extremity High risk for DTs Reviewed H&P, echo level reviewed QTC prolongation, extra dose of magnesium given today Auto PEEP improved, with better sedation hypercapnia improved Avoid phenobarbital because of QTC prolongation If we are not able to extubate him by tomorrow we will start parenteral nutrition Vitals/I&O/Wt Last Vital Signs Temp 98.1 F 12/26/21 04:00 Pulse 118 H 12/26/21 08:10 Resp 18 12/26/21 12:06 BP 107/73 12/26/21 06:00 Pulse Ox 90 12/26/21 12:06 12/25/21 12/26/21 12/26/21 22:59 06:59 14:59 Intake Total 305.705 / 4815.286 5051.740 / 3719.533 350 / 350 Output Total 150 / 150 200 / 350 Balance 155.705 / 7232.115 3133.740 / 3369.533 350 / 350 Weight last 48 hrs Weight 77.428 kg Weight 73.391 kg Weight 99.79 kg Physical Exam Narrative: Intubated and sedated This morning he was waking up, despite being on 2 sedatives Active tremors when he woke up despite being on fentanyl and propofol Looks dehydrated Sinus tachycardic 130s Blood pressure stable Bilateral breath sounds Abdomen soft No signs of edema Urinary Catheter Management: Barba: Cath Placed During This Visit: yes Reason for Continuing Indwelling Catheter: Accurate Measurement of Urinary Output in Critically Ill Patients Urinary Catheter Date of Insertion: 12/25/21 Urinary Catheter Time of Insertion: 12:30 Data : 12/26/21 04:51 12/26/21 04:51 Micro: Microbiology 12/25/21 12:50 Gram Stain - Final Sputum - Endotracheal Tube Aspirate Sputum Culture - Preliminary Moraxella catarrhalis A&P Assessment and plan (1) Altered mental status: Status: Acute (2) Respiratory failure with hypoxia and hypercapnia: Status: Acute (3) Hypokalemia: Status: Acute (4) Alcohol intoxication: Status: Acute (5) Intentional overdose of trazodone: Status: Acute (6) Suicide attempt: Status: Acute (7) Alcohol use disorder, severe, dependence: Status: Acute (8) HIV (human immunodeficiency virus infection): Status: Acute Qualifiers: HIV symptom status: asymptomatic, with no history of HIV-related illness Qualified Code(s): Z21 - Asymptomatic human immunodeficiency virus [HIV] infection status (9) COPD (chronic obstructive pulmonary disease): Status: Acute Plan Suicide attempt Intentional drug overdose Patient took trazodone QTC prolongation noted: We will do EKG every 8 hours, current QTC 502, previous QTC 530, no significant arrhythmia noted on the telemetry Keep potassium above 4, magnesium above 2 Patient was showing tremors despite being on fentanyl and propofol added Precedex and Versed Hypoxic hypercapnic respiratory failure Patient is not ready to be extubated Added Versed because of his active tremors Slowly weaning off sedatives, sedation medication on daily basis, weaning trial on daily basis Start nutrition by tomorrow if we are not able to extubate Check phosphorus, magnesium and potassium, potassium repleted, Delta troponin noted, he is getting therapeutic dose of Lovenox because of high D-dimer, echo is unremarkable, type II FL? Alcohol abuse Multiple suicide attempts N.p.o. Full code Previously patient had overdosed on sildenafil family updated Attestations Medical Necessity Statement*: Continue medical management Time Spent in Patient Care: 30mins Coding Level of Care Code Acute Driver Guide for [facility] Fwd Diagnoses Altered mental status R41.82 Respiratory failure with hypoxia and hypercapnia J96.91; J96.92 Hypokalemia E87.6 Alcohol intoxication F10.929 Intentional overdose of trazodone T43.212A Suicide attempt T14.91XA Alcohol use disorder, severe, dependence F10.20 HIV (human immunodeficiency virus infection) Z21 HIV symptom status: asymptomatic, with no history of HIV-related illness COPD (chronic obstructive pulmonary disease) J44.9
[2021-12-26 13:31] LABS: ABG PCO2 50.3 mmHg (35-45); ABG PH Result 7.37 (7.35-7.45); Alveolar-Arterial Oxygen Gradi 43.2 mmHg (5-10); Arterial Blood Gas Hematocrit 37.1 % (42-52); Base Excess ABG 3.1 mmol/L (-2.0-2.0); Blood Gas Operator Identificat GD; Blood Gas Sample Site Brachial, right; Blood Gas Sample Type Arterial; Blood Gas Tidal Volume 0.52; Carboxyhemoglobin 0.9 %THgb (0.4-20.1); HCO3 ABG 29.2 mmol/L (22-26); HGB O2 Sat 91.3 % (95-100); Methemoglobin 0.7 % (0.4-1.5); Oxygen Device VENT; Oxygen Saturation ABG 92.8; PO2 ABG 65.9 mmHg (80.0-100.0); Potassium Level - ABG 3.3 mmol/L (3.5-5.0); Total Hemoglobin 12.1 g/dL (14-18)
[2021-12-26] MEDS: propofol 1,000 MG/100 ML INJ 23.95 MG IV (14:07)
[2021-12-26] MEDS: potassium chloride premix 100 ML 25 MEQ IV (14:09)
[2021-12-26 16:12] LABS: Glucose Point of Care 114 mg/dL (70-110)
[2021-12-26 18:12] LABS: Glucose Point of Care 121 mg/dL (70-110)
--- NOTE | 2021-12-26 18:14 | PC.NURSE ---
SHift Summary: At beggining of shift, patient started waking up while on the vent, we attempted a weaning trial, but due to large tidal volumes, and what appeared to be tremors associated with alcohol withdrawal the weaning trial was stopped. Additinal sedation was initially required and precedex and versed was added. We were able to titrated down or off of some of the sedatives after patient becam calm (See MAR). Total urine output today has been 450mL (0.49mL/kg/hr). DVT found in right leg.
[2021-12-27] VITALS (34 sets, daily range): BP systolic 103–171; BP diastolic 66–119; PULSE 77–150; RESP 10–35; TEMP 36.6–38.6; O2SAT 89–95
[2021-12-27 02:09] LABS: Glucose Point of Care 100 mg/dL (70-110)
[2021-12-27] MEDS: propofol 1,000 MG/100 ML INJ 17.96 MG IV (02:09)
[2021-12-27] MEDS: ipratropium-albuterol 3 mL Neb INHALATION ×4 (02:10→20:07)
[2021-12-27 04:21] LABS: Basophils % 0.6 %; Eosinophils % 0.2 %; Hematocrit 37.2 % (42.0-52.0); Hemoglobin 11.6 g/dL (11.7-16.6); Lymphocytes # 1.2 10^3/uL (0.8-4.8); Lymphocytes % 22.9 %; Mean Corpuscular HGB Conc 31.2 g/dL (30.0-36.0); Mean Corpuscular Hemoglobin 31.7 pg (28.0-34.0); Mean Corpuscular Volume 101.6 fl (80-94); Mean Platelet Volume 9.5 fL (7.4-10.4); Monocytes # 0.2 10^3/uL (0.2-0.9); Monocytes % 4.3 %; Neutrophils # 3.69 10^3/uL (1.8-7.7); Neutrophils % 71.4 %; Nucleated Red Blood Cells % 0 %; Platelet Count 130 10^3/cmm (130-400); Red Blood Count 3.66 10^6/uL (4.1-5.3); Red Cell Distribution Width 15.6 % (12.1-15.1); White Blood Count 5.2 10^3/uL (4.0-10.0)
[2021-12-27 04:43] LABS: Alanine Aminotransferase 17 U/L (0-41); Albumin Level 2.8 g/dL (3.5-5.2); Alkaline Phosphatase 98 IU/L (40-130); Anion Gap 8.3 (5-19); Aspartate Amino Transferase 35 U/L (0-40); Blood Urea Nitrogen 8 mg/dL (8-23); Carbon Dioxide 31 mmol/L (22-29); Chloride 111 mmol/L (98-107); Globulin 2.8 g/dL (1.3-4.6); Glomerular Filtration Rate 219.4 mL/min (90-130); Glucose 97 mg/dL (65-115); Lipase 29 U/L (13-60); Magnesium 1.8 mg/dL (1.7-2.3); Osmolality Calculated 302 mOsm/kg (285-295); Phosphorus 1.4 mg/dL (2.5-4.5); Potassium 3.3 mmol/L (3.5-5.1); Sodium 147 mmol/L (136-145); Total Bilirubin 0.5 mg/dL (0.15-1.2); Total Protein 5.6 g/dL (6.6-8.7)
[2021-12-27 05:29] LABS: ABG PCO2 49.9 mmHg (35-45); ABG PH Result 7.42 (7.35-7.45); Arterial Blood Gas Hematocrit 35.1 % (42-52); Base Excess ABG 6.8 mmol/L (-2.0-2.0); Blood Gas Allen Test Pos; Blood Gas Sample Site Radial, right; Blood Gas Sample Type Arterial; Blood Gas Tidal Volume 0.52; HCO3 ABG 32.4 mmol/L (22-26); Oxygen Device VENT; PO2 ABG 62.4 mmHg (80.0-100.0)
[2021-12-27] MEDS: enoxaparin 80 mg/0.8 mL Syringe 70 MG SUBCUT ×2 (06:33→18:23)
[2021-12-27] MEDS: sodium chloride 0.9% 1,000 ML 100 ML IV (06:34)
[2021-12-27 06:48] LABS: Glucose Point of Care 92 mg/dL (70-110)
[2021-12-27] MEDS: aspirin 81 mg EC Tablet PO (08:30)
[2021-12-27] MEDS: metoprolol tartrate 25 mg Tablet 12.5 MG PO ×2 (08:30→21:21)
[2021-12-27] MEDS: multivitamin therapeutic Tablet 1 TAB PO (08:30)
[2021-12-27] MEDS: folic acid 5 mg/ml MDV 10mL 1 MG IVP (08:33)
[2021-12-27] MEDS: pantoprazole 40 mg SDV IVP (08:35)
--- NOTE | 2021-12-27 09:50 | PC.CHAP ---
Pastoral Care Encounter/Spiritual Assessment Type of Contact [] Declined qualitative researcher visit [] Patient/Family/Request visit [] Outpatient visit [] Follow-up visit [] Physician referral [] Code/Alert [x] Routine visit [] Staff referral [] Actively dying [] Patient sleeping [] Family support [] [] Out of room [] Palliative care [] [x] Receiving care in room [] Pre-surgical visit [] Trauma [] Long length of stay [x] ICU visit [x] Other: vent Relational/Emotional Strength [] Patient feels connected with others/family/visitors/staff [] Distress [] Loneliness/isolation [] Abandonment Spirituality of Patient [] Person of Talia [] Attends Holiness of their Talia [] Believes in Prayer [] Reads Bible or Nondenominational materials [] There are Spiritual issues to be addressed Mains And Service Supervisor Interventions [x] Prayer [] Active listening [] Non-anxious presence [] Spiritual/emotional support [] Crisis/trauma care [] Spiritual counseling [] Bereavement support [] Provided bereavement packet [] Provided Bible/devotional materials [] Provided toy/stuffed animal, coloring book to patient or family member [] Provided Communion [] Anointing/[place] [] Salvation [x] Completed spiritual assessment [] Other: Impact on Illness or Injury [] Angry [] Fearful [] Anxious [] Often cries [] Exhaustion [] Unable to work [] Unable to attend religious [] Unable to walk/stand [] Unable to read [] Unable to drive [] Unable to eat/drink [] Unable to sleep [] Unable to be with family [] Patient intubated [] Other: Summary Time spent with patient
--- NOTE | 2021-12-27 10:00 | ECG_ITS ---
Test Date: 2021-12-27 Pat Name: Flakito Almanzar Department: Room: 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 Measurements Intervals [place] Rate: 91 P: 78 [place]: 149 QRS: 81 QRSD: 88 T: 81 QT: 402 QTc: 495 Interpretive Statements SINUS RHYTHM WITH OCCASIONAL SUPRAVENTRICULAR PREMATURE COMPLEXES Compared to ECG 12/26/2021 08:40:44 First degree AV block no longer present Electronically Signed On 12-27-2021 18:11:16 CDT by Jori Cisse M.D. [id number]
[2021-12-27] MEDS: propofol 1,000 MG/100 ML INJ 11.98 MG IV (10:12)
--- NOTE | 2021-12-27 11:31 | PC.NUTR ---
MD notes 12/26 said that if unable to extubate then would consider starting PN. If medically appropriate, recommend consideration of PPN in peripheral IV to begin at 13 mls/hr and increase by 10 mls Q8H until infusing at 83 mls/hr, with Fat Emulsion of 25 gm/125 mls added as well as standard electrolytes and multivitamins 10 mls/day. Details in RD's assessment.
[2021-12-27 12:14] LABS: Glucose Point of Care 101 mg/dL (70-110)
--- NOTE | 2021-12-27 13:17 | PM.PN ---
Subjective Subjective: Ins and outs reviewed Afebrile Sedation vacation was started this morning Patient was awake after we turned off his sedative agents became tachycardic and tachypneic, he is able to follow commands and blink his eyes appropriately Noticed thick yellow mucoid secretions I have asked RT to do pressure support for about 15 minutes and reassess Patient was examined twice ABG showing improvement in hypercapnia and pH Currently only on Precedex Right leg DVT Vitals/I&O/Wt Last Vital Signs Temp 101.3 F H 12/27/21 12:00 Pulse 97 12/27/21 12:00 Resp 10 L 12/27/21 12:04 BP 161/94 12/27/21 12:00 Pulse Ox 93 12/27/21 12:04 12/26/21 12/27/21 12/27/21 22:59 06:59 14:59 Intake Total 741.592 / 2261.011 1151 / 3412.011 191.133 / 191.133 Output Total 450 / 450 1100 / 1550 2300 / 2300 Balance 291.592 / 1811.011 51 / 1862.011 -2108.867 / -2108.867 Weight last 48 hrs Weight 80.286 kg Weight 77.428 kg Weight 73.391 kg Physical Exam Narrative: Patient is able to follow commands, off sedation currently only on Precedex Becomes tachycardic tachypneic tries to bring his hand towards his endotracheal tube Looks dehydrated Thick mucoid secretions noted Bilateral breath sounds without adventitious rhonchi or crackles Abdomen soft No signs of edema of legs He follows commands appropriately Urinary Catheter Management: Barba: Cath Placed During This Visit: yes Reason for Continuing Indwelling Catheter: Accurate Measurement of Urinary Output in Critically Ill Patients Urinary Catheter Date of Insertion: 12/25/21 Urinary Catheter Time of Insertion: 12:30 Data : 12/27/21 04:01 12/27/21 04:01 Micro: Microbiology 12/25/21 12:50 Gram Stain - Final Sputum - Endotracheal Tube Aspirate Sputum Culture - Final Moraxella catarrhalis A&P Assessment and plan (1) Respiratory failure with hypoxia and hypercapnia: Status: Acute (2) Altered mental status: Status: Acute (3) Intentional overdose of trazodone: Status: Acute (4) Alcohol intoxication: Status: Acute (5) Suicide attempt: Status: Acute (6) HIV (human immunodeficiency virus infection): Status: Acute Qualifiers: HIV symptom status: asymptomatic, with no history of HIV-related illness Qualified Code(s): Z21 - Asymptomatic human immunodeficiency virus [HIV] infection status (7) COPD (chronic obstructive pulmonary disease): Status: Acute Plan Patient is intubated and sedated secondary to hypoxic hypercapnic respiratory failure After intentional drug overdose with trazodone History of suicidal attempt HIV positive He is n.p.o. Thick mucoid secretions noted My plan today is to turn off sedation, Weaning trial for 15 minutes if he fails we will put him back on sedatives Daily weaning trial, sedation vacation For now we are monitoring him on Precedex I will add cefepime and Zosyn for thick mucoid secretions concern for Klebsiella pneumonia Fever 101 No signs of sepsis No leukocytosis Hypokalemia: Potassium and phosphorus repleted, Hypocalcemia: Given calcium gluconate Low albumin noted as well Glucose 101 Right leg DVT patient was taking Eliquis at home, I have kept him on therapeutic dose of Lovenox for now HIV: Continue HIV medications If we are not able to extubate him today we will start NG tube feeding he is getting dehydrated Full code 96-hour hold Suicide attempt Attestations Medical Necessity Statement*: Continue ICU management Time Spent in Patient Care: 45mins Coding Level of Care Code Acute Wreath Machine Operator for [facility] Mery Diagnoses Respiratory failure with hypoxia and hypercapnia J96.91; J96.92 Altered mental status R41.82 Intentional overdose of trazodone T43.212A Alcohol intoxication F10.929 Suicide attempt T14.91XA HIV (human immunodeficiency virus infection) Z21 HIV symptom status: asymptomatic, with no history of HIV-related illness COPD (chronic obstructive pulmonary disease) J44.9
[2021-12-27] MEDS: dextrose 5%-lactated ringers 1,000 ML 75 ML IV (14:06)
[2021-12-27] MEDS: calcium gluconate 0.9% NaCL 1 GM/50 ML PREMIX IV (14:15)
[2021-12-27] MEDS: cefepime 1,000 MG in sodium chloride 0.9% (plus) 50 ML 100 MG IV (14:19)
[2021-12-27] MEDS: piperacillin-tazobactam 3.375 GM in sodium chloride 0.9% (plus) 50 ML IV ×2 (14:23→21:21)
--- NOTE | 2021-12-27 14:41 | PC.NUTR ---
MD consult received for TF goals for Jevity 1.2. Recommend starting Jevity 1.2 @ 10 mls/hr and increasing 10 mls Q8H as tolerated until goal rate of 60 mls/hr is reached with flushes of 120 mls Q4H or per MD discretion. See RD assessment for details.
--- NOTE | 2021-12-27 15:36 | PC.SLP ---
Attempted to evaluate patient for swallowing function. He refused and would not turn on to his back to be evaluated. Will continue to monitor and assess when the patient is cooperative.
[2021-12-27] MEDS: LORazepam 2 mg/mL INJ 1 mL IVP ×2 (15:51→22:15)
[2021-12-27] MEDS: ondansetron 2 mg/ML SDV 2 mL 4 MG IVP (15:56)
--- NOTE | 2021-12-27 16:25 | PC.NURSE ---
Patient extubated to heated high flow. Patient can answer yes and no quesitons and make needs known, but unable to answer place, time, or situation questions. Patient is resistant to care. Refused PO ativan requiring IV. Refuses acetaminophen. Struggle against nursing staff when attempting to reposition or clean.
[2021-12-27] MEDS: labetalol 5 mg/mL SDV 20mL 10 MG IVP (17:20)
--- NOTE | 2021-12-27 17:52 | ECG_ITS ---
[facility] Test Date: 2021-12-27 Pat Name: Flakito Almanzar Department: Room: ICU05 Gender: Male Yard Engineer: : 1960 Requested By: Kenny Osborn Order Number: [id number] Barros MD: Jori Cisse M.D. Measurements Intervals [place] Rate: 106 P: OR: QRS: 66 QRSD: 92 T: 65 QT: 363 QTc: 482 Interpretive Statements ATRIAL FIBRILLATION WITH RAPID VENTRICULAR RESPONSE WITH ABERRANT CONDUCTION OR VENTRICULAR PREMATURE COMPLEXES Compared to ECG 12/27/2021 08:02:05 Ventricular premature complex(es) now present Aberrant conduction of supraventricular beat(s) now present Sinus rhythm no longer present Electronically Signed On 12-27-2021 18:10:51 CDT by Jori Cisse M.D. [id number]
--- NOTE | 2021-12-27 18:22 | ECG_ITS ---
[facility] Test Date: 2021-12-27 Pat Name: Flakito Almanzar Department: Room: [facility]05 Gender: Male Social Work Manager: : 1960 Requested By: Kenny Osborn Order Number: [id number] Barros MD: Jori Cisse M.D. Measurements Intervals [place] Rate: 132 P: MS: QRS: 65 QRSD: 90 T: 70 QT: 363 QTc: 539 Interpretive Statements ATRIAL FIBRILLATION WITH RAPID VENTRICULAR RESPONSE Compared to ECG 12/27/2021 18:07:22 Aberrant conduction of supraventricular beat(s) no longer present Ventricular premature complex(es) no longer present Electronically Signed On 12-28-2021 0:03:28 CDT by Jori Cisse M.D. [id number]
--- NOTE | 2021-12-27 19:15 | PC.NURSE ---
Shift Summary: Patient was extubated today. SInce extubation his heart rate has been low sinus tach with occaisonal AFIB with a rate in the 140's. Patient is a/Ox0, but hard to assess as he has been uncooperative with care. Refusing oral meds, resists linen changes or repositioning, refuses oral care.
[2021-12-27] MEDS: dexmedeTOMIDine 0.9 % NaCL 400 MCG/100 ML PREMIX 9.68 MCG IV (19:56)
[2021-12-28] VITALS (47 sets, daily range): BP systolic 92–158; BP diastolic 59–98; PULSE 78–144; RESP 13–40; TEMP 37.2–37.8; O2SAT 88–93
[2021-12-28] MEDS: ipratropium-albuterol 3 mL Neb INHALATION ×3 (02:07→14:17)
[2021-12-28] MEDS: cefepime 1,000 MG in sodium chloride 0.9% (plus) 50 ML 100 MG IV ×2 (02:08→15:04)
[2021-12-28 03:51] LABS: Basophils % 0.3 %; Eosinophils % 0.7 %; Hematocrit 37.6 % (42.0-52.0); Hemoglobin 12.3 g/dL (11.7-16.6); Lymphocytes # 1.4 10^3/uL (0.8-4.8); Lymphocytes % 23.9 %; Mean Corpuscular HGB Conc 32.7 g/dL (30.0-36.0); Mean Corpuscular Hemoglobin 31.5 pg (28.0-34.0); Mean Corpuscular Volume 96.4 fl (80-94); Mean Platelet Volume 9.8 fL (7.4-10.4); Monocytes # 0.3 10^3/uL (0.2-0.9); Monocytes % 4.7 %; Neutrophils # 4.17 10^3/uL (1.8-7.7); Neutrophils % 70.1 %; Nucleated Red Blood Cells % 0 %; Platelet Count 134 10^3/cmm (130-400); Red Cell Distribution Width 14.7 % (12.1-15.1)
--- NOTE | 2021-12-28 04:00 | XRR_ITS ---
PROCEDURE INFORMATION: Exam: XR Chest Exam date and time: 12/28/2021 5:16 AM Age: 61 years old Clinical indication: Other: Thick secretions TECHNIQUE: Imaging protocol: XR of the chest. Views: 1 view. COMPARISON: CR XR chest 1V portable [id number] 12/25/2021 12:12 PM FINDINGS: Lungs: There is redistribution and indistinctness of the pulmonary vasculature, in association with haziness of the lungs and small right pleural effusion, which in the setting of cardiomegaly is consistent with pulmonary edema. There is shifting of mediastinal structures towards the right, suggestive of right lower lung atelectasis. This finding may be accentuated by obliquity of the image. Pneumonia should be excluded clinically. No pneumothorax. Pleural spaces: See Lungs finding. Heart/Mediastinum: Stable cardiomediastinal silhouette. Bones/joints: Unremarkable. XR/XR chest 1V portable [id number] IMPRESSION: Imaging findings of pulmonary edema with small right pleural effusion. Pneumonia should be excluded clinically.
[2021-12-28 04:22] LABS: Alanine Aminotransferase 18 U/L (0-41); Albumin Level 3.1 g/dL (3.5-5.2); Alkaline Phosphatase 95 IU/L (40-130); Anion Gap 10.5 (5-19); Aspartate Amino Transferase 52 U/L (0-40); Blood Urea Nitrogen 7 mg/dL (8-23); Calcium 7.5 mg/dL (8.5-10.5); Carbon Dioxide 34 mmol/L (22-29); Chloride 98 mmol/L (98-107); Glomerular Filtration Rate 219.4 mL/min (90-130); Glucose 87 mg/dL (65-115); Magnesium 1.6 mg/dL (1.7-2.3); Osmolality Calculated 287 mOsm/kg (285-295); Phosphorus 1.6 mg/dL (2.5-4.5); Sodium 140 mmol/L (136-145); Total Bilirubin 1.5 mg/dL (0.15-1.2); Total Protein 6.1 g/dL (6.6-8.7)
[2021-12-28 04:30] LABS: Potassium 2.5 mmol/L (3.5-5.1)
[2021-12-28] MEDS: lidocaine 1% 5 ML in potassium chloride premix 100 ML 25 ML IV (04:50)
[2021-12-28] MEDS: piperacillin-tazobactam 3.375 GM in sodium chloride 0.9% (plus) 50 ML IV ×3 (04:50→21:10)
[2021-12-28 06:12] LABS: Glucose Point of Care 76 mg/dL (70-110)
[2021-12-28] MEDS: enoxaparin 80 mg/0.8 mL Syringe 70 MG SUBCUT ×2 (06:32→21:10)
[2021-12-28 08:03] LABS: Glucose Point of Care 79 mg/dL (70-110)
[2021-12-28] MEDS: magnesium sulfate premix 2 GM/50 ML PIGGYBACK IV (08:47)
[2021-12-28] MEDS: metoprolol tartrate 25 mg Tablet 12.5 MG PO (08:47)
[2021-12-28] MEDS: aspirin 81 mg EC Tablet PO (08:47)
[2021-12-28] MEDS: pantoprazole 40 mg SDV IVP (08:48)
[2021-12-28] MEDS: multivitamin therapeutic Tablet 1 TAB PO (08:48)
--- NOTE | 2021-12-28 09:00 | CTR_ITS ---
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 3D rendering (Not supervised by radiologist): MIP and/or 3D reconstructed images were created by the technologist. Radiation optimization: All CT scans at this facility use at least one of these dose optimization techniques: automated exposure control; mA and/or kV adjustment per patient size (includes targeted exams where dose is matched to clinical indication); or iterative reconstruction. Contrast material: OMNIPAQUE 300; Contrast volume: 90 ml; Contrast route: INTRAVENOUS (IV); COMPARISON: CT angio chest PE protcl [id number] 09/27/2020 10:50 AM RADIATION DOSE METRICS: Total DLP (mGy-cm): 616.87 FINDINGS: Limitations: Study somewhat limited due to streak artifact created by the patient being scanned with the arms at the sides. Pulmonary arteries: Central pulmonary arteries are enlarged suggestive of pulmonary hypertension not significantly changed. There is a large filling defect in the distal right main pulmonary artery consistent with an acute pulmonary embolus. Visualization of some peripheral branches is limited due to streak artifact. Aorta: There is no thoracic aortic aneurysm or dissection. Lungs: There is severe findings of pulmonary emphysema as noted on multiple previous exams. There is some partial atelectasis in the right middle lobe and dependent atelectasis in the right lower lobe involving portions of the basilar segments. There is some mild dependent atelectasis at the left lung base. Pleural spaces: Unremarkable. No pneumothorax. No pleural effusion. Heart: Unremarkable. No cardiomegaly. No pericardial effusion. Heart RV/LV ratio: 0.95 Lymph nodes: There is no evidence of lymphadenopathy. Bones/joints: Unremarkable. No acute fracture. Soft tissues: Unremarkable. CT/CT angio chest PE protcl [id number] IMPRESSION: 1. Acute pulmonary embolism. 2. COPD 3. Basilar atelectasis COMMENTS: THIS REPORT CONTAINS FINDINGS THAT MAY BE CRITICAL TO PATIENT CARE. The findings were verbally communicated via telephone conference with ELADIA CARROLL at 5:35 PM CDT on 12/28/2021. The findings were acknowledged and understood.
--- NOTE | 2021-12-28 09:33 | PM.PN ---
Subjective Subjective: Febrile events noted Currently on antibiotics Moraxella catarrhalis and sputum Asked nurse to turn off Precedex this morning Will do speech evaluation today Wean off oxygen PT evaluation I might be able to send him to Neuropsych Unit by tomorrow Heart rate has improved Currently in sinus rhythm Hemodynamically stable No active withdrawal signs or symptoms Very drowsy because of Precedex running at 0.5 Vitals/I&O/Wt Last Vital Signs Temp 98.9 F 12/28/21 01:00 Pulse 82 12/28/21 08:08 Resp 16 12/28/21 08:08 BP 108/75 12/28/21 05:00 Pulse Ox 89 L 12/28/21 08:08 12/27/21 12/28/21 12/28/21 22:59 06:59 14:59 Intake Total 185.493 / 1314.353 50 / 1364.353 100 / 100 Output Total 650 / 2950 Balance 185.493 / -985.647 -600 / -1585.647 100 / 100 Weight last 48 hrs Weight 69.853 kg Weight 80.286 kg Physical Exam Narrative: Patient following commands, very drowsy because of Precedex No new focal deficit S1, S2, sinus rhythm Crackles bilateral Increase secretions upper airway Cachectic, malnourished Skin grafts noted Abdomen soft Urinary Catheter Management: Barba: Cath Placed During This Visit: yes Reason for Continuing Indwelling Catheter: Accurate Measurement of Urinary Output in Critically Ill Patients Urinary Catheter Date of Insertion: 12/25/21 Urinary Catheter Time of Insertion: 12:30 Data : 12/28/21 02:50 12/28/21 02:50 Micro: Microbiology 12/25/21 12:50 Gram Stain - Final Sputum - Endotracheal Tube Aspirate Sputum Culture - Final Moraxella catarrhalis A&P Assessment and plan (1) Respiratory failure with hypoxia and hypercapnia: Status: Acute (2) Altered mental status: Status: Acute (3) Acute hypoxemic respiratory failure: Status: Acute (4) Hypokalemia: Status: Acute (5) Intentional overdose of trazodone: Status: Acute (6) Alcohol intoxication: Status: Acute (7) Suicide attempt: Status: Acute (8) HIV (human immunodeficiency virus infection): Status: Acute Qualifiers: HIV symptom status: asymptomatic, with no history of HIV-related illness Qualified Code(s): Z21 - Asymptomatic human immunodeficiency virus [HIV] infection status (9) Alcohol use disorder, severe, dependence: Status: Acute Plan Hypoxic hypercapnic respiratory failure Improving Patient was extubated successfully yesterday Wean off oxygen Turn off Precedex Speech evaluation, PT Community-acquired pneumonia Moraxella catarrhalis Continue cephalosporins Hypokalemia hypomagnesemia hypophosphatemia: Repleted Concern for refeeding syndrome Tachyarrhythmia resolved most likely secondary to alcohol withdrawal currently in sinus rhythm Intermittent A. fib His dominant rhythm is sinus He was taking Eliquis at home Has DVT in right leg Currently on therapeutic Lovenox Will discontinue fluids once he starts eating Turn off Precedex Will send him to neuropsychiatric unit by tomorrow Continue HIV medications once he is more awake and alert He take sildenafil for pulmonary hypertension Is full code Attestations Medical Necessity Statement*: Monitor 1 more day in ICU, Time Spent in Patient Care: 30mins Coding Level of Care Code Acute Research Laboratory Manager for [facility] [place] Diagnoses Respiratory failure with hypoxia and hypercapnia J96.91; J96.92 Altered mental status R41.82 Acute hypoxemic respiratory failure J96.01 Hypokalemia E87.6 Intentional overdose of trazodone T43.212A Alcohol intoxication F10.929 Suicide attempt T14.91XA HIV (human immunodeficiency virus infection) Z21 HIV symptom status: asymptomatic, with no history of HIV-related illness Alcohol use disorder, severe, dependence F10.20
--- NOTE | 2021-12-28 10:00 | ECG_ITS ---
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 Measurements Intervals [place] Rate: 119 P: -20 [place]: 174 QRS: 63 QRSD: 90 T: 78 QT: 389 QTc: 547 Interpretive Statements SINUS TACHYCARDIA LEFT ATRIAL ENLARGEMENT [-0.15mV P-WAVE IN V1/V2] Compared to ECG 12/27/2021 18:32:00 Atrial abnormality now present Atrial fibrillation no longer present Electronically Signed On 12-28-2021 20:18:54 CDT by Adilia Clay M.D. [id number]
--- NOTE | 2021-12-28 10:07 | PC.CHAP ---
Pastoral Care Encounter/Spiritual Assessment Type of Contact [] Declined director education visit [] Patient/Family/Request visit [] Outpatient visit [] Follow-up visit [] Physician referral [] Code/Alert [x] Routine visit [] Staff referral [] Actively dying [x] Patient sleeping [] Family support [] [] Out of room [] Palliative care [] [] Receiving care in room [] Pre-surgical visit [] Trauma [] Long length of stay [x] ICU visit [x] Other: setter Relational/Emotional Strength [] Patient feels connected with others/family/visitors/staff [] Distress [] Loneliness/isolation [] Abandonment Spirituality of Patient [] Person of Talia [] Attends Uatsdin of their Talia [] Believes in Prayer [] Reads Bible or Nondenominational materials [] There are Spiritual issues to be addressed Merchandiser Interventions [x] Prayer [] Active listening [] Non-anxious presence [] Spiritual/emotional support [] Crisis/trauma care [] Spiritual counseling [] Bereavement support [] Provided bereavement packet [] Provided Bible/devotional materials [] Provided toy/stuffed animal, coloring book to patient or family member [] Provided Communion [] Anointing/[place] [] Salvation [x] Completed spiritual assessment [] Other: Impact on Illness or Injury [] Angry [] Fearful [] Anxious [] Often cries [] Exhaustion [] Unable to work [] Unable to attend baptism [] Unable to walk/stand [] Unable to read [] Unable to drive [] Unable to eat/drink [] Unable to sleep [] Unable to be with family [] Patient intubated [] Other: Summary Time spent with patient
--- NOTE | 2021-12-28 11:00 | PC.NURSE ---
Pt accidentally pulled out right AC IV. Line inspected. Intact.
[2021-12-28 12:06] LABS: Glucose Point of Care 80 mg/dL (70-110)
--- NOTE | 2021-12-28 13:00 | PC.NURSE ---
Pt accidentally pulled out left AC IV. Line inspected. Unremarkable. 20 g started in left upper arm. Pt tolerated well.
--- NOTE | 2021-12-28 15:00 | PC.NURSE ---
Stool specimen given to Phase Eightconstruction or leak gang laborerTiti ruff.
[2021-12-28] MEDS: folic acid 1 mg Tablet PO (15:04)
[2021-12-28] MEDS: LORazepam 2 mg/mL INJ 1 mL IVP ×2 (15:07→19:44)
--- NOTE | 2021-12-28 15:21 | PC.NURSE ---
Pt's temp trending upward throughout shift but remaining under 101. Now 101.[address] Osborn notified. Orders received.
[2021-12-28] MEDS: lanolin oint 7 gm 1 APPLIC TOPICAL (15:41)
[2021-12-28] MEDS: acetaminophen 500 mg Tablet PO (15:41)
--- NOTE | 2021-12-28 16:00 | PC.NURSE ---
Pt pulled at left upper arm IV. Sitter saved but appears IV began to infiltrate shortly after. Line removed. Intact. Warm compress applied with coban. 20 g started in right FA. Pt tolerated well.
--- NOTE | 2021-12-28 17:03 | PC.SOCIAL ---
IMM UPDATED IMM dated and initialed and copy placed in chart and given to patient
[2021-12-28 18:16] LABS: Glucose Point of Care 85 mg/dL (70-110)
[2021-12-28] MEDS: metoprolol tartrate 25 mg Tablet PO (21:10)
[2021-12-29] VITALS (47 sets, daily range): BP systolic 99–146; BP diastolic 68–99; PULSE 85–141; RESP 14–44; TEMP 37.2–38.2; O2SAT 88–94
[2021-12-29] MEDS: LORazepam 2 mg/mL INJ 1 mL IVP ×2 (00:32→22:17)
[2021-12-29] MEDS: ipratropium-albuterol 3 mL Neb INHALATION ×4 (02:10→21:22)
[2021-12-29 03:46] LABS: Basophils % 0.5 %; Eosinophils % 0.2 %; Hematocrit 40.2 % (42.0-52.0); Hemoglobin 13.9 g/dL (11.7-16.6); Lymphocytes # 1.6 10^3/uL (0.8-4.8); Lymphocytes % 19.3 %; Mean Corpuscular HGB Conc 34.6 g/dL (30.0-36.0); Mean Corpuscular Hemoglobin 31.4 pg (28.0-34.0); Mean Platelet Volume 9.8 fL (7.4-10.4); Monocytes # 0.5 10^3/uL (0.2-0.9); Monocytes % 5.6 %; Neutrophils # 6.23 10^3/uL (1.8-7.7); Nucleated Red Blood Cells % 0 %; Platelet Count 147 10^3/cmm (130-400); Red Blood Count 4.42 10^6/uL (4.1-5.3); Red Cell Distribution Width 14.5 % (12.1-15.1); White Blood Count 8.4 10^3/uL (4.0-10.0)
[2021-12-29 04:10] LABS: Anion Gap 18.2 (5-19); Blood Urea Nitrogen 5 mg/dL (8-23); Calcium 8.2 mg/dL (8.5-10.5); Carbon Dioxide 29 mmol/L (22-29); Chloride 94 mmol/L (98-107); Glomerular Filtration Rate 219.4 mL/min (90-130); Glucose 84 mg/dL (65-115); Magnesium 1.7 mg/dL (1.7-2.3); Osmolality Calculated 284 mOsm/kg (285-295); Sodium 139 mmol/L (136-145)
[2021-12-29 04:16] LABS: Procalcitonin 0.12 ng/mL (0-0.5)
[2021-12-29 04:23] LABS: Phosphorus 0.9 mg/dL (2.5-4.5)
[2021-12-29 04:24] LABS: Potassium 2.2 mmol/L (3.5-5.1)
[2021-12-29] MEDS: enoxaparin 80 mg/0.8 mL Syringe 70 MG SUBCUT ×2 (06:40→18:05)
[2021-12-29] MEDS: piperacillin-tazobactam 3.375 GM in sodium chloride 0.9% (plus) 50 ML IV ×2 (06:41→13:17)
[2021-12-29] MEDS: lidocaine 1% 5 ML in potassium chloride premix 100 ML 25 ML IV (06:41)
[2021-12-29] MEDS: folic acid 1 mg Tablet PO (09:23)
[2021-12-29] MEDS: potassium chloride ER 20 mEq Tablet 40 MEQ PO (09:23)
[2021-12-29] MEDS: multivitamin therapeutic Tablet 1 TAB PO (09:23)
[2021-12-29] MEDS: aspirin 81 mg EC Tablet PO (09:23)
[2021-12-29] MEDS: metoprolol tartrate 25 mg Tablet PO ×2 (09:23→19:44)
--- NOTE | 2021-12-29 10:00 | ECG_ITS ---
[facility] Test Date: 2021-12-29 Pat Name: Flakito Almanzar Department: Room: [facility]05 Gender: Male Costumer Assistant: : 1960 Requested By: Kenny Osborn Order Number: [id number] Papo MD: Josue Maier M.D. Measurements Intervals [place] Rate: 112 P: 59 CO: 161 QRS: 42 QRSD: 85 T: 67 QT: 363 QTc: 497 Interpretive Statements SINUS TACHYCARDIA WITH OCCASIONAL SUPRAVENTRICULAR PREMATURE COMPLEXES MODERATE ST DEPRESSION [0.05+ mV ST DEPRESSION] Compared to ECG 12/28/2021 08:37:05 ST (T wave) deviation now present Atrial abnormality no longer present Electronically Signed On 12-29-2021 15:24:53 CDT by Josue Maier M.D. [id number]
[2021-12-29] MEDS: pantoprazole 40 mg SDV IVP (10:46)
[2021-12-29] MEDS: calcium gluconate 0.9% NaCL 1 GM/50 ML PREMIX IV (11:17)
[2021-12-29] MEDS: sodium chloride 0.9% 1,000 ML 100 ML IV ×2 (12:28→19:45)
[2021-12-29] MEDS: cefepime 1,000 MG in sodium chloride 0.9% (plus) 50 ML 100 MG IV (12:36)
--- NOTE | 2021-12-29 13:36 | P.PN_ITS ---
Subjective Subjective: Hypokalemia, C. difficile has been reported late this morning, incident report has been filed Potassium repleted Phosphorus repleted Patient is asking for water, speech therapy completed yesterday Severe hypokalemia, patient is showing signs of sinus tach intermittent A. fib He has significant clot burden with PE and DVT he has stayed on therapeutic Lovenox since admission At home he was using Eliquis for DVT Patient stated that he does not want to talk about his suicidal attempt or depression right now I do believe his swallowing and energy will improve with replenishment of phosphorus and potassium Magnesium looking better today Out of bed to chair C. difficile positive Isolation, p.o. vancomycin started Low-grade fever Vitals/I&O/Wt Last Vital Signs Temp 98.9 F 12/28/21 20:00 Pulse 92 12/29/21 12:00 Resp 24 H 12/29/21 12:00 BP 140/93 12/29/21 12:00 Pulse Ox 91 12/29/21 12:00 12/28/21 12/29/21 12/29/21 22:59 06:59 14:59 Intake Total 340 / 610 50 / 660 375 / 375 Output Total 2100 / 2100 1000 / 3100 Balance -1760 / -1490 -950 / -2440 375 / 375 Weight last 48 hrs Weight 69.853 kg Physical Exam Narrative: Very fatigued lethargic Able to answer my question Dehydrated Sinus tach to A. fib telemetry pattern Abdomen soft Bilateral breath sounds Dry cracked lips No signs of edema Skin graft Urinary Catheter Management: Barba: Cath Placed During This Visit: yes Reason for Continuing Indwelling Catheter: Accurate Measurement of Urinary Output in Critically Ill Patients Urinary Catheter Date of Insertion: 12/25/21 Urinary Catheter Time of Insertion: 12:30 Data : 12/29/21 02:52 12/29/21 02:52 Micro: Microbiology 12/28/21 12:15 C.difficile Toxin B Gene (PCR) - Final Stool - Stool Aspirate A&P Assessment and plan (1) Respiratory failure with hypoxia and hypercapnia: Status: Acute (2) Altered mental status: Status: Acute (3) Acute hypoxemic respiratory failure: Status: Acute (4) Hypokalemia: Status: Acute (5) Intentional overdose of trazodone: Status: Acute (6) Alcohol intoxication: Status: Acute (7) Suicide attempt: Status: Acute (8) HIV (human immunodeficiency virus infection): Status: Acute Qualifiers: HIV symptom status: asymptomatic, with no history of HIV-related illness Qualified Code(s): Z21 - Asymptomatic human immunodeficiency virus [HIV] infection status (9) Alcohol use disorder, severe, dependence: Status: Acute (10) C. difficile diarrhea: Status: Acute Plan Hypoxic hypercapnic respiratory failure s/p extubation Moraxella catarrhalis causing COPD exacerbation De-escalate antibiotics to cephalosporins only Low-grade fever overnight Severe hypokalemia and hypophosphatemia This will make him at risk of recurrent aspiration, respiratory failure he needs ICU care for now Potassium and phosphorus repleted Hypomagnesemia: Improved Speech therapy recommended soft mechanical diet No signs of stroke Suicidal attempt He will need neuropsych placement once he is medically cleared from ICU Is full code C. difficile diarrhea start p.o. vancomycin 12/29 Heavy clot burden PE and right leg DVT currently on therapeutic Lovenox No active signs of withdrawal Avoid Precedex QT prolongation no signs of malignant arrhythmia Attestations Medical Necessity Statement*: Continue ICU, reluctant to transfer to [facility] because of severe electrolyte imbalance Time Spent in Patient Care: 30 Coding Level of Care Code Acute Notch Machine Operator for g Fwd Diagnoses Respiratory failure with hypoxia and hypercapnia J96.91; J96.92 Altered mental status R41.82 Acute hypoxemic respiratory failure J96.01 Hypokalemia E87.6 Intentional overdose of trazodone T43.212A Alcohol intoxication F10.929 Suicide attempt T14.91XA HIV (human immunodeficiency virus infection) Z21 HIV symptom status: asymptomatic, with no history of HIV-related illness Alcohol use disorder, severe, dependence F10.20 C. difficile diarrhea A04.72
[2021-12-29] MEDS: phosphorus 250 mg Tablet PO (17:25)
[2021-12-29] MEDS: LORazepam 2 mg Tablet PO (18:05)
[2021-12-29] MEDS: LORazepam 2 mg/mL INJ 1 mL IM (19:44)
--- NOTE | 2021-12-29 22:31 | PC.NURSE ---
At 2221, pt had 8 beats of VT. Pt had no c/o of chest pain or SOB, and resting in bed. Dr. Reed was notified at 2225. No new orders received at this time. Will continue to monitor
--- NOTE | 2021-12-29 22:35 | PC.NURSE ---
2 mg ativan IVP push administered for CIWA score 21
[2021-12-30] VITALS (27 sets, daily range): BP systolic 101–145; BP diastolic 62–93; PULSE 75–113; RESP 16–45; TEMP 37.1–37.9; O2SAT 87–95
[2021-12-30] MEDS: cefepime 1,000 MG in sodium chloride 0.9% (plus) 50 ML 100 MG IV ×3 (00:10→23:01)
[2021-12-30] MEDS: LORazepam 2 mg/mL INJ 1 mL IVP ×2 (01:49→04:44)
[2021-12-30] MEDS: ipratropium-albuterol 3 mL Neb INHALATION ×4 (02:27→21:03)
[2021-12-30 04:49] LABS: Glucose Point of Care 84 mg/dL (70-110)
[2021-12-30] MEDS: enoxaparin 80 mg/0.8 mL Syringe 70 MG SUBCUT (06:08)
[2021-12-30 06:18] LABS: Basophils % 0.6 %; Eosinophils # 0.1 10^3/uL (0.0-0.8); Eosinophils % 1.1 %; Hematocrit 40.1 % (42.0-52.0); Hemoglobin 13.2 g/dL (11.7-16.6); Lymphocytes # 1.2 10^3/uL (0.8-4.8); Lymphocytes % 18.3 %; Mean Corpuscular HGB Conc 32.9 g/dL (30.0-36.0); Mean Corpuscular Hemoglobin 31.6 pg (28.0-34.0); Mean Corpuscular Volume 95.9 fl (80-94); Mean Platelet Volume 10.5 fL (7.4-10.4); Monocytes # 0.7 10^3/uL (0.2-0.9); Neutrophils # 4.41 10^3/uL (1.8-7.7); Neutrophils % 68.5 %; Nucleated Red Blood Cells % 0 %; Platelet Count 130 10^3/cmm (130-400); Red Blood Count 4.18 10^6/uL (4.1-5.3); Red Cell Distribution Width 15.3 % (12.1-15.1); White Blood Count 6.4 10^3/uL (4.0-10.0)
[2021-12-30 06:37] LABS: Blood Urea Nitrogen 6 mg/dL (8-23); Calcium 7.1 mg/dL (8.5-10.5); Carbon Dioxide 22 mmol/L (22-29); Chloride 100 mmol/L (98-107); Glomerular Filtration Rate 305.8 mL/min (90-130); Glucose 80 mg/dL (65-115); Magnesium 1.6 mg/dL (1.7-2.3); Osmolality Calculated 281 mOsm/kg (285-295); Phosphorus 2.2 mg/dL (2.5-4.5); Sodium 137 mmol/L (136-145)
[2021-12-30 07:27] LABS: Anion Gap 17.2 (5-19); Potassium 2.2 mmol/L (3.5-5.1)
[2021-12-30] MEDS: potassium chloride ER 20 mEq Tablet 40 MEQ PO (07:53)
[2021-12-30] MEDS: folic acid 1 mg Tablet PO (07:54)
[2021-12-30] MEDS: aspirin 81 mg EC Tablet PO (07:54)
[2021-12-30] MEDS: phosphorus 250 mg Tablet PO ×2 (07:54→17:14)
[2021-12-30] MEDS: metoprolol tartrate 25 mg Tablet PO ×2 (07:54→20:38)
[2021-12-30] MEDS: multivitamin therapeutic Tablet 1 TAB PO (07:54)
[2021-12-30] MEDS: potassium chloride oral liq 20 mEq/15 mL UDC 40 MEQ PO (07:55)
[2021-12-30] MEDS: pantoprazole 40 mg SDV IVP (08:58)
[2021-12-30] MEDS: magnesium sulfate premix 2 GM/50 ML PIGGYBACK IV (08:58)
--- NOTE | 2021-12-30 10:25 | PC.CHAP ---
Pastoral Care Encounter/Spiritual Assessment Type of Contact [] Declined rn case manager hospice visit [] Patient/Family/Request visit [] Outpatient visit [] Follow-up visit [] Physician referral [] Code/Alert [x] Routine visit [] Staff referral [] Actively dying [x] Patient sleeping [] Family support [] [] Out of room [] Palliative care [] [] Receiving care in room [] Pre-surgical visit [] Trauma [] Long length of stay [x] ICU visit [x] Other: sitter Relational/Emotional Strength [] Patient feels connected with others/family/visitors/staff [] Distress [] Loneliness/isolation [] Abandonment Spirituality of Patient [] Person of Talia [] Attends Restorationism of their Talia [] Believes in Prayer [] Reads Bible or Mosque materials [] There are Spiritual issues to be addressed Ship Worker Interventions [x] Prayer [] Active listening [] Non-anxious presence [] Spiritual/emotional support [] Crisis/trauma care [] Spiritual counseling [] Bereavement support [] Provided bereavement packet [] Provided Bible/devotional materials [] Provided toy/stuffed animal, coloring book to patient or family member [] Provided Communion [] Anointing/[place] [] Salvation [x] Completed spiritual assessment [] Other: Impact on Illness or Injury [] Angry [] Fearful [] Anxious [] Often cries [] Exhaustion [] Unable to work [] Unable to attend congregation [] Unable to walk/stand [] Unable to read [] Unable to drive [] Unable to eat/drink [] Unable to sleep [] Unable to be with family [] Patient intubated [] Other: Summary Time spent with patient
[2021-12-30 11:30] LABS: Glucose Point of Care 112 mg/dL (70-110)
[2021-12-30] MEDS: sodium chloride 0.9% 1,000 ML 100 ML IV ×2 (12:28→23:00)
--- NOTE | 2021-12-30 12:38 | PM.PN ---
Subjective Subjective: Patient did not endorse new events Has rectal tube for C. difficile diarrhea Hypophosphatemia hypokalemia repleted He can be transferred out of ICU 89-year-old who completed He can stay on 22 days old now Not stable to be transferred to neuropsychiatric Tolerating his diet Magnesium repleted Febrile episodes note PE and DVT Vitals/I&O/Wt Last Vital Signs Temp 99.8 F H 12/30/21 08:00 Pulse 79 12/30/21 10:00 Resp 24 H 12/30/21 10:00 BP 101/67 12/30/21 10:00 Pulse Ox 91 12/30/21 09:00 12/29/21 12/30/21 12/30/21 22:59 06:59 14:59 Intake Total 2617.4239 / 3112.3478 1050 / 4162.3478 100 / 100 Output Total 500 / 500 900 / 1400 Balance 2117.4239 / 2612.3478 150 / 2762.3478 100 / 100 Weight last 48 hrs Weight 71.259 kg Physical Exam Narrative: Very fatigued and lethargic Able to answer my questions appropriately Withdrawal signs and symptoms positive Sinus tach Clinically dehydrated Concentrated urine IV fluid running Abdomen soft To be well on heated high flow Abdomen is soft Clinically looks dehydrated Verbally redirectable Urinary Catheter Management: Barba: Cath Placed During This Visit: yes Reason for Continuing Indwelling Catheter: Accurate Measurement of Urinary Output in Critically Ill Patients Urinary Catheter Date of Insertion: 12/25/21 Urinary Catheter Time of Insertion: 12:30 Data : 12/30/21 04:30 12/30/21 04:30 Micro: Microbiology 12/27/21 06:45 MRSA Culture - Final Nose 12/28/21 12:15 C.difficile Toxin B Gene (PCR) - Final Stool - Stool Aspirate A&P Assessment and plan (1) C. difficile diarrhea: Status: Acute (2) Respiratory failure with hypoxia and hypercapnia: Status: Acute (3) Altered mental status: Status: Acute (4) Hypokalemia: Status: Acute (5) Intentional overdose of trazodone: Status: Acute (6) Alcohol intoxication: Status: Acute (7) Suicide attempt: Status: Acute (8) Alcohol use disorder, severe, dependence: Status: Acute (9) HIV (human immunodeficiency virus infection): Status: Acute Qualifiers: HIV symptom status: asymptomatic, with no history of HIV-related illness Qualified Code(s): Z21 - Asymptomatic human immunodeficiency virus [HIV] infection status (10) Overdose: Status: Acute Qualifiers: Encounter type: initial encounter Injury intent: intentional self-harm Qualified Code(s): T50.902A - Poisoning by unspecified drugs, medicaments and biological substances, intentional self-harm, initial encounter (11) Refeeding syndrome: Status: Acute Plan Hypoxic hypercapnic respite failure after intentional overdose on trazodone Successfully extubated to nasal cannula currently he is on heated high flow Alcohol abuse Currently suffering from refeeding syndrome Aggressive fluid and electrolyte replenishment for hypomagnesemia hypokalemia and hypophosphatemia Dysphagia after extubation I do believe with replenishment of phosphorus his dysphagia will improve Sinus tach, A. fib, right leg DVT and PE Continue therapeutic dose of Lovenox Patient states full code On dysphagia diet Currently on broad-spectrum antibiotics for aspiration pneumonia Transfer out of ICU HIV: Holding HIV meds, QTC prolongation improved Daily PT OT and ST Attestations Medical Necessity Statement*: Out of ICU today Daily PT/ST Time Spent in Patient Care: 30 Coding Level of Care Code Acute Tie Tamper for [facility] 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 difficile diarrhea A04.72 Respiratory failure with hypoxia and hypercapnia J96.91; J96.92 Altered mental status R41.82 Hypokalemia E87.6 Intentional overdose of trazodone T43.212A Alcohol intoxication F10.929 Suicide attempt T14.91XA Alcohol use disorder, severe, dependence F10.20 HIV (human immunodeficiency virus infection) Z21 HIV symptom status: asymptomatic, with no history of HIV-related illness Overdose T50. Encounter type: initial encounter Injury intent: intentional self-harm Refeeding syndrome E87.8
--- NOTE | 2021-12-30 15:37 | PC.SOCIAL ---
IMM update IMM updated with patient. Copy Pg 2 provided. Initialled, dated, timed, and placed in chart.
--- NOTE | 2021-12-30 16:15 | PC.OT ---
OT eval order received. RN reports pt is actively hallucination, very confused, and would not be appropriate for EOB or OOB activities at this time. OT eval to be attempted tomorrow.
[2021-12-30] MEDS: apixaban 5 mg Tablet PO (17:14)
[2021-12-30 17:40] LABS: Glucose Point of Care 91 mg/dL (70-110)
[2021-12-30] MEDS: HYDROcodone-acetaminophen 5-325 mg Tablet 1 TAB PO (20:42)
[2021-12-30] MEDS: ondansetron 2 mg/ML SDV 2 mL 4 MG IVP (21:15)
[2021-12-30 22:20] LABS: Glucose Point of Care 99 mg/dL (70-110)
[2021-12-30] MEDS: metoclopramide 5 mg/mL SDV 2 mL IVP (22:39)
[2021-12-30 23:28] LABS: Glucose Point of Care 101 mg/dL (70-110)
[2021-12-31] VITALS (18 sets, daily range): BP systolic 100–125; BP diastolic 62–83; PULSE 66–97; RESP 12–20; TEMP 36.3–37.7; O2SAT 91–95
[2021-12-31] MEDS: ipratropium-albuterol 3 mL Neb INHALATION ×4 (02:56→21:03)
[2021-12-31] MEDS: ondansetron 2 mg/ML SDV 2 mL 4 MG IVP ×2 (04:57→20:49)
[2021-12-31] MEDS: LORazepam 2 mg Tablet PO ×4 (05:05→21:22)
[2021-12-31 05:17] LABS: Basophils % 0.8 %; Eosinophils # 0.1 10^3/uL (0.0-0.8); Eosinophils % 2.1 %; Hematocrit 36.2 % (42.0-52.0); Hemoglobin 12.6 g/dL (11.7-16.6); Lymphocytes # 1.1 10^3/uL (0.8-4.8); Lymphocytes % 22.6 %; Mean Corpuscular HGB Conc 34.8 g/dL (30.0-36.0); Mean Corpuscular Hemoglobin 31.9 pg (28.0-34.0); Mean Corpuscular Volume 91.6 fl (80-94); Mean Platelet Volume 10.1 fL (7.4-10.4); Monocytes # 0.7 10^3/uL (0.2-0.9); Monocytes % 14.5 %; Neutrophils # 2.88 10^3/uL (1.8-7.7); Neutrophils % 59.8 %; Nucleated Red Blood Cells % 0 %; Platelet Count 123 10^3/cmm (130-400); Red Blood Count 3.95 10^6/uL (4.1-5.3); Red Cell Distribution Width 15.1 % (12.1-15.1); White Blood Count 4.8 10^3/uL (4.0-10.0)
[2021-12-31 05:31] LABS: Slide Review Slide Review Perform
[2021-12-31 05:39] LABS: Anion Gap 12.4 (5-19); Blood Urea Nitrogen 6 mg/dL (8-23); Calcium 7.4 mg/dL (8.5-10.5); Carbon Dioxide 24 mmol/L (22-29); Chloride 105 mmol/L (98-107); Glomerular Filtration Rate 219.4 mL/min (90-130); Glucose 85 mg/dL (65-115); Magnesium 1.9 mg/dL (1.7-2.3); Osmolality Calculated 285 mOsm/kg (285-295); Phosphorus 2.7 mg/dL (2.5-4.5); Sodium 139 mmol/L (136-145)
[2021-12-31 05:50] LABS: Potassium 2.4 mmol/L (3.5-5.1)
[2021-12-31 06:59] LABS: Glucose Point of Care 91 mg/dL (70-110)
[2021-12-31] MEDS: folic acid 1 mg Tablet PO (08:23)
[2021-12-31] MEDS: multivitamin therapeutic Tablet 1 TAB PO (08:23)
[2021-12-31] MEDS: potassium chloride ER 20 mEq Tablet 40 MEQ PO (08:23)
[2021-12-31] MEDS: potassium chloride oral liq 20 mEq/15 mL UDC 40 MEQ PO (08:23)
[2021-12-31] MEDS: apixaban 5 mg Tablet PO ×2 (08:24→17:32)
[2021-12-31] MEDS: phosphorus 250 mg Tablet PO ×2 (08:24→17:32)
[2021-12-31] MEDS: aspirin 81 mg EC Tablet PO (08:24)
[2021-12-31] MEDS: pantoprazole 40 mg SDV IVP (08:24)
[2021-12-31] MEDS: sodium chlor 0.9% + KCl 40 mEq 40 MEQ/1,000 ML BAG 75 MEQ IV (08:25)
[2021-12-31] MEDS: metoprolol tartrate 25 mg Tablet PO ×2 (08:31→20:48)
--- NOTE | 2021-12-31 10:10 | PM.PN ---
Subjective Subjective: Patient is endorsing feeling better he was upset that we are not able to send him home Patient is still low, magnesium phosphorus improved 40% 50 L heated high flow No active chest pain C. difficile diarrhea and rectal tube Clinical looks dehydrated Awake and alert Vitals/I&O/Wt Last Vital Signs Temp 98.9 F 12/31/21 07:51 Pulse 71 12/31/21 08:21 Resp 20 H 12/31/21 08:21 BP 125/83 12/31/21 07:51 Pulse Ox 95 12/31/21 08:21 12/30/21 12/31/21 12/31/21 22:59 06:59 14:59 Intake Total 1499.0909 / 1839.0909 250 / 2089.0909 1550 / 1550 Output Total 1999 / 1999 1500 / 3500 Balance -500.9091 / -160.9091 -1250 / -1410.9091 1550 / 1550 Weight last 48 hrs Weight 72.983 kg Weight 71.259 kg Physical Exam Narrative: Sitting in his chair brushing his teeth Awake and alert Nonfocal neuro exam No active signs of withdrawal Looks dehydrated Cooperative with C. difficile diarrhea S1, S2 A. fib Nonfocal neuro exam Abdomen soft No signs of edema of legs Urinary Catheter Management: Barba: Cath Placed During This Visit: yes Reason for Continuing Indwelling Catheter: Accurate Measurement of Urinary Output in Critically Ill Patients Urinary Catheter Date of Insertion: 12/25/21 Urinary Catheter Time of Insertion: 12:30 Data : 12/31/21 04:35 12/31/21 04:35 Micro: Microbiology 12/27/21 06:45 MRSA Culture - Final Nose A&P Assessment and plan (1) Refeeding syndrome: Status: Acute (2) C. difficile diarrhea: Status: Acute (3) Respiratory failure with hypoxia and hypercapnia: Status: Acute (4) Altered mental status: Status: Acute (5) Hypokalemia: Status: Acute (6) Intentional overdose of trazodone: Status: Acute (7) Suicide attempt: Status: Acute (8) Alcohol intoxication: Status: Acute (9) HIV (human immunodeficiency virus infection): Status: Acute Qualifiers: HIV symptom status: asymptomatic, with no history of HIV-related illness Qualified Code(s): Z21 - Asymptomatic human immunodeficiency virus [HIV] infection status (10) Alcohol use disorder, severe, dependence: Status: Acute Plan Intentional overdose, suicide attempt Respiratory failure related to hypoxic hypercapnic respiratory failure: Successfully extubated Currently on heated high flow 40 L 50% Wean off oxygen to room air if possible RT to assess and treat Patient has aspiration pneumonia currently on broad-spectrum antibiotics, leukocytosis trended down, still spiking low-grade fever Acute pulmonary embolism continue therapeutic Lovenox, right leg DVT positive which is old. 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 Attestations Medical Necessity Statement*: He came in transfer to neuropsych once off heated high flow and potassium improved Time Spent in Patient Care: 30 Coding Level of Care Code Acute Machine Puller And Laster for Chg Fwd Diagnoses Refeeding syndrome E87.8 C. difficile diarrhea A04.72 Respiratory failure with hypoxia and hypercapnia J96.91; J96.92 Altered mental status R41.82 Hypokalemia E87.6 Intentional overdose of trazodone T43.212A Suicide attempt T14.91XA Alcohol intoxication F10.929 HIV (human immunodeficiency virus infection) Z21 HIV symptom status: asymptomatic, with no history of HIV-related illness Alcohol use disorder, severe, dependence F10.20
[2021-12-31] MEDS: lidocaine 1% 5 ML in potassium chloride premix 100 ML 25 ML IV (11:20)
[2021-12-31] MEDS: cefepime 1,000 MG in sodium chloride 0.9% (plus) 50 ML 100 MG IV (11:22)
[2021-12-31 12:09] LABS: Glucose Point of Care 141 mg/dL (70-110)
[2021-12-31] MEDS: nicotine 14 mg Patch 1 PATCH TRANSDERMA (16:35)
[2021-12-31 18:40] LABS: Glucose Point of Care 172 mg/dL (70-110)
--- NOTE | 2021-12-31 19:26 | PC.NURSE ---
Patient AAOx4, VSS, rectal tube replaced during shift with liquid stool and is patent. Barba in place and patent with good UOP. patient sitting up in bed and oxygen requirements decreased significantly. Patient remains on CIWA and requiring medication throughout shift. Sitter still in place for impulsiveness. Report given bedside to oncoming nurse. Room clean and clutter free with call light in reach. Tolerating diet and fluids.
[2021-12-31 20:56] LABS: Glucose Point of Care 143 mg/dL (70-110)
[2022-01-01] VITALS (15 sets, daily range): BP systolic 112–146; BP diastolic 73–96; PULSE 69–106; RESP 16–18; TEMP 36.4–37.5; O2SAT 91–96
[2022-01-01 00:01] LABS: Glucose Point of Care 100 mg/dL (70-110)
[2022-01-01] MEDS: cefepime 1,000 MG in sodium chloride 0.9% (plus) 50 ML 100 MG IV ×3 (00:56→23:32)
[2022-01-01] MEDS: sodium chlor 0.9% + KCl 40 mEq 40 MEQ/1,000 ML BAG 75 MEQ IV ×2 (01:20→14:41)
[2022-01-01] MEDS: LORazepam 2 mg Tablet PO ×3 (01:21→20:05)
[2022-01-01] MEDS: acetaminophen 500 mg Tablet PO ×2 (02:47→13:48)
[2022-01-01] MEDS: ondansetron 2 mg/ML SDV 2 mL 4 MG IVP (02:48)
[2022-01-01] MEDS: ipratropium-albuterol 3 mL Neb INHALATION ×4 (03:37→20:19)
[2022-01-01 04:31] LABS: Hematocrit 36.9 % (42.0-52.0); Hemoglobin 12.3 g/dL (11.7-16.6); Mean Corpuscular HGB Conc 33.3 g/dL (30.0-36.0); Mean Corpuscular Hemoglobin 31.4 pg (28.0-34.0); Mean Corpuscular Volume 94.1 fl (80-94); Mean Platelet Volume 10.3 fL (7.4-10.4); Platelet Count 134 10^3/cmm (130-400); Red Blood Count 3.92 10^6/uL (4.1-5.3); Red Cell Distribution Width 14.9 % (12.1-15.1); White Blood Count 4.3 10^3/uL (4.0-10.0)
[2022-01-01 04:49] LABS: Anion Gap 11.8 (5-19); Blood Urea Nitrogen 3 mg/dL (8-23); Calcium 7.6 mg/dL (8.5-10.5); Carbon Dioxide 25 mmol/L (22-29); Chloride 105 mmol/L (98-107); Glomerular Filtration Rate 219.4 mL/min (90-130); Glucose 134 mg/dL (65-115); Magnesium 1.9 mg/dL (1.7-2.3); Osmolality Calculated 287 mOsm/kg (285-295); Phosphorus 1.8 mg/dL (2.5-4.5); Sodium 139 mmol/L (136-145)
[2022-01-01 04:55] LABS: Absolute Segmented Neutrophil 1.9 10/cmm (1.6-7.1); Lymphocytes 27 %; Monocytes Absolute 0.6 10^3/cmm (0.1-0.6); Segmented Neutrophils 44 %; Total Cells Counted 100 (0-100)
[2022-01-01 04:56] LABS: Absolute Eosinophils 0.2 10^3/cmm (0.0-0.7); Absolute Neutrophil 1.9 10^3/cmm (1.4-6.5); Eosinophils 6 %; Lymphocytes Absolute 1.5 10^3/cmm (1.2-3.4); Ovalocytes Trace; Platelet Estimate Decreased (Normal)
[2022-01-01 05:03] LABS: Potassium 2.8 mmol/L (3.5-5.1)
[2022-01-01 06:47] LABS: Glucose Point of Care 102 mg/dL (70-110)
--- NOTE | 2022-01-01 08:05 | PC.SOCIAL ---
IMM updated IMM dated and initialed and copy put in chart and given to patient
[2022-01-01] MEDS: lidocaine 1% 5 ML in potassium chloride premix 100 ML 25 ML IV (09:17)
[2022-01-01] MEDS: pantoprazole 40 mg SDV IVP (09:17)
[2022-01-01] MEDS: nicotine 14 mg Patch 1 PATCH TRANSDERMA (09:17)
[2022-01-01] MEDS: potassium chloride ER 20 mEq Tablet 40 MEQ PO (09:18)
[2022-01-01] MEDS: phosphorus 250 mg Tablet PO ×2 (09:18→17:20)
[2022-01-01] MEDS: multivitamin therapeutic Tablet 1 TAB PO (09:18)
[2022-01-01] MEDS: potassium chloride oral liq 20 mEq/15 mL UDC 40 MEQ PO (09:18)
[2022-01-01] MEDS: metoprolol tartrate 25 mg Tablet PO ×2 (09:18→20:26)
[2022-01-01] MEDS: apixaban 5 mg Tablet PO ×2 (09:19→17:20)
[2022-01-01] MEDS: aspirin 81 mg EC Tablet PO (09:19)
[2022-01-01] MEDS: folic acid 1 mg Tablet PO (09:19)
--- NOTE | 2022-01-01 11:05 | P.PN_ITS ---
Subjective Subjective: Patient is endorsing feeling better Hypophosphatemia hypokalemia repleted DE plan to send him to neuropsych tomorrow Patient is stating that he does not want to stay in the hospital He asked for nicotine patch He try to get up and walk around Active C. difficile diarrhea Currently on 4 L nasal cannula Vitals/I&O/Wt Last Vital Signs Temp 97.7 F 01/01/22 08:00 Pulse 89 01/01/22 09:10 Resp 16 01/01/22 09:10 BP 120/78 01/01/22 08:00 Pulse Ox 95 01/01/22 09:10 12/31/21 01/01/22 01/01/22 22:59 06:59 14:59 Intake Total 1825 / 3785 360 / 360 Output Total 2560 / 3460 1000 / 4460 Balance -735 / 325 -1000 / -675 360 / 360 Weight last 48 hrs Weight 75.296 kg Weight 72.983 kg Physical Exam Narrative: Patient is feeling well On 4 L nasal cannula Well-hydrated Much more awake and alert As per their one-to-one supervision he was experiencing hallucination before Abdomen soft Rectal tube with diarrhea Awake and alert nonfocal neuro exam S1, S2 Urinary Catheter Management: Barba: Cath Placed During This Visit: yes Reason for Continuing Indwelling Catheter: Other Urinary Catheter Date of Insertion: 12/25/21 Urinary Catheter Time of Insertion: 12:30 Data : 01/01/22 04:02 01/01/22 04:02 A&P Assessment and plan (1) Refeeding syndrome: Status: Acute (2) C. difficile diarrhea: Status: Acute (3) Respiratory failure with hypoxia and hypercapnia: Status: Acute (4) Acute hypoxemic respiratory failure: Status: Acute (5) Intentional overdose of trazodone: Status: Acute (6) Alcohol intoxication: Status: Acute (7) Hypokalemia: Status: Acute Plan Refeeding syndrome Potassium and phosphorus repleted Mentation silva he has improved significantly Rectal tube can be removed tomorrow before placement to neuropsych C. difficile diarrhea Hypoxia related to pneumonia currently on 4 L nasal cannula Afebrile, de-escalate antibiotics tomorrow as well Respiratory failure requiring intubation: Patient successfully extubated to nasal cannula now Neuropsych evaluation One-to-one supervision Suicidal attempt Status post 96-hour hold [place] transfer him to neuropsych today is because of profound hypokalemia and hypophosphatemia Attestations Medical Necessity Statement*: Transferred to neuropsych tomorrow Time Spent in Patient Care: 30 Coding Level of Care Code Acute Curtain Stretcher Assembler for Chg Fwd Diagnoses Refeeding syndrome E87.8 C. difficile diarrhea A04.72 Respiratory failure with hypoxia and hypercapnia J96.91; J96.92 Acute hypoxemic respiratory failure J96.01 Intentional overdose of trazodone T43.212A Alcohol intoxication F10.929 Hypokalemia E87.6
[2022-01-01 17:09] LABS: Glucose Point of Care 169 mg/dL (70-110)
[2022-01-01] MEDS: magnesium oxide 400 mg tablet PO (17:20)
[2022-01-01] MEDS: zolpidem 5 mg Tablet PO (20:05)
[2022-01-01 21:14] LABS: Glucose Point of Care 117 mg/dL (70-110)
[2022-01-02] VITALS (11 sets, daily range): BP systolic 117–172; BP diastolic 75–95; PULSE 62–92; RESP 14–18; TEMP 36.6–36.9; O2SAT 91–98
[2022-01-02] MEDS: ipratropium-albuterol 3 mL Neb INHALATION ×3 (03:04→14:43)
[2022-01-02] MEDS: LORazepam 2 mg Tablet PO ×2 (03:15→21:49)
[2022-01-02 05:15] LABS: Blood Urea Nitrogen 2 mg/dL (8-23); Calcium 8.1 mg/dL (8.5-10.5); Carbon Dioxide 25 mmol/L (22-29); Chloride 105 mmol/L (98-107); Glomerular Filtration Rate 219.4 mL/min (90-130); Glucose 94 mg/dL (65-115); Osmolality Calculated 284 mOsm/kg (285-295); Phosphorus 3.2 mg/dL (2.5-4.5); Sodium 139 mmol/L (136-145)
[2022-01-02 05:23] LABS: Anion Gap 12.5 (5-19); Potassium 3.5 mmol/L (3.5-5.1)
[2022-01-02] MEDS: potassium chloride ER 20 mEq Tablet 40 MEQ PO (09:15)
[2022-01-02] MEDS: aspirin 81 mg EC Tablet PO (09:16)
[2022-01-02] MEDS: multivitamin therapeutic Tablet 1 TAB PO (09:16)
[2022-01-02] MEDS: folic acid 1 mg Tablet PO (09:16)
[2022-01-02] MEDS: apixaban 5 mg Tablet PO ×2 (09:16→17:07)
[2022-01-02] MEDS: magnesium oxide 400 mg tablet PO ×2 (09:16→17:07)
[2022-01-02] MEDS: phosphorus 250 mg Tablet PO ×2 (09:17→17:07)
[2022-01-02] MEDS: potassium chloride oral liq 20 mEq/15 mL UDC 40 MEQ PO (09:17)
[2022-01-02] MEDS: nicotine 14 mg Patch 1 PATCH TRANSDERMA (09:17)
[2022-01-02] MEDS: metoprolol tartrate 25 mg Tablet PO ×2 (10:00→21:27)
[2022-01-02] MEDS: pantoprazole 40 mg SDV IVP (10:27)
[2022-01-02 11:07] LABS: Glucose Point of Care 123 mg/dL (70-110)
--- NOTE | 2022-01-02 11:09 | P.PN_ITS ---
Subjective Subjective: Potassium is better I have placement transfer order to send him to neuropsych Dr. Kent has been updated Rectal tube is out Discontinue Barba Vitals/I&O/Wt Last Vital Signs Temp 97.4 F L 01/03/22 11:07 Pulse 89 01/03/22 11:07 Resp 16 01/03/22 11:07 BP 128/83 01/03/22 11:07 Pulse Ox 96 01/03/22 11:07 01/02/22 01/03/22 01/03/22 22:59 06:59 14:59 Intake Total 240 / 1056.25 360 / 360 Balance 240 / -243.75 360 / 360 Weight last 48 hrs Weight 68.629 kg Weight 72.892 kg Physical Exam Narrative: Pleasant and cooperative One-to-one supervision S1, S2 Looks euvolemic now Much more better in terms of his mentation Abdomen soft Saturating well on 4 L nasal cannula high flow Urinary Catheter Management: Barba: Cath Placed During This Visit: yes, but has since been removed by the nurse Reason for Continuing Indwelling Catheter: Decision to DC Catheter Urinary Catheter Date of Insertion: 12/25/21 Urinary Catheter Time of Insertion: 12:30 Date Urinary Catheter Removed: 01/02/22 Time Urinary Catheter Discontinued: 11:00 Data : 01/01/22 04:02 01/03/22 05:12 A&P Assessment and plan (1) Refeeding syndrome: Status: Acute (2) C. difficile diarrhea: Status: Acute (3) Altered mental status: Status: Acute (4) Respiratory failure with hypoxia and hypercapnia: Status: Acute (5) Acute hypoxemic respiratory failure: Status: Acute (6) Intentional overdose of trazodone: Status: Acute (7) Alcohol intoxication: Status: Acute (8) Hypokalemia: Status: Acute (9) Suicide attempt: Status: Acute Plan -Transfer to neuropsych I have consulted neuropsych Rectal tube is out He is having 2-3 bowel movements a day Barba catheter will be discontinued He will stay on 3 to 4 L of nasal cannula And I have switched him to p.o. Augmentin Replenish potassium, phosphorus and magnesium are looking better Attestations Medical Necessity Statement*: Transfer to U 96 hrhold Time Spent in Patient Care: 15 Coding Level of Care Code Acute Pipe Line Maintenance Supervisor for Chg Fwd Diagnoses Refeeding syndrome E87.8 C. difficile diarrhea A04.72 Altered mental status R41.82 Respiratory failure with hypoxia and hypercapnia J96.91; J96.92 Acute hypoxemic respiratory failure J96.01 Intentional overdose of trazodone T43.212A Alcohol intoxication F10.929 Hypokalemia E87.6 Suicide attempt T14.91XA
[2022-01-03] VITALS (11 sets, daily range): BP systolic 109–130; BP diastolic 69–86; PULSE 0–90; RESP 16–18; TEMP 36.3–36.8; O2SAT 93–96
[2022-01-03 00:19] LABS: Glucose Point of Care 120 mg/dL (70-110)
[2022-01-03 06:01] LABS: Magnesium 2.2 mg/dL (1.7-2.3)
[2022-01-03 06:34] LABS: Glucose Point of Care 103 mg/dL (70-110)
[2022-01-03] MEDS: potassium chloride oral liq 20 mEq/15 mL UDC 40 MEQ PO (08:17)
[2022-01-03] MEDS: multivitamin therapeutic Tablet 1 TAB PO (08:18)
[2022-01-03] MEDS: nicotine 14 mg Patch 1 PATCH TRANSDERMA (08:18)
[2022-01-03] MEDS: phosphorus 250 mg Tablet PO ×2 (08:18→18:02)
[2022-01-03] MEDS: pantoprazole 40 mg SDV IVP (08:18)
[2022-01-03] MEDS: magnesium oxide 400 mg tablet PO ×2 (08:18→18:02)
[2022-01-03] MEDS: potassium chloride ER 20 mEq Tablet 40 MEQ PO (08:18)
[2022-01-03] MEDS: folic acid 1 mg Tablet PO (08:19)
[2022-01-03] MEDS: apixaban 5 mg Tablet PO ×2 (08:19→18:02)
[2022-01-03] MEDS: aspirin 81 mg EC Tablet PO (08:19)
[2022-01-03] MEDS: metoprolol tartrate 25 mg Tablet PO ×2 (09:24→21:36)
[2022-01-03] MEDS: LORazepam 2 mg Tablet PO (10:58)
[2022-01-03 11:40] LABS: Glucose Point of Care 123 mg/dL (70-110)
--- NOTE | 2022-01-03 11:45 | P.PN_ITS ---
Subjective Subjective: I spoke with Dr. Menchaca to see if he could see him today, he stating that Dr. Bang will be able to see him tomorrow as we are finishing 10 days of p.o. vancomycin for C. difficile Patient is stating that he has been having 2-3 bowel movements a day Is endorsing feeling fine and he wants to go home I told him that he cannot go home because of 96-hour hold after conversation he decided to stay however wanted to talk with a psychiatrist Potassium magnesium is better he is currently on 4 L high flow nasal cannula No overnight events Vitals/I&O/Wt Last Vital Signs Temp 97.4 F L 01/03/22 11:07 Pulse 89 01/03/22 11:07 Resp 16 01/03/22 11:07 BP 128/83 01/03/22 11:07 Pulse Ox 96 01/03/22 11:07 01/02/22 01/03/22 01/03/22 22:59 06:59 14:59 Intake Total 240 / 1056.25 360 / 360 Balance 240 / -243.75 360 / 360 Weight last 48 hrs Weight 68.629 kg Weight 72.892 kg Physical Exam Narrative: Patient is clinically doing better Euvolemic 4 L high flow nasal cannula saturating well S1, S2 No abdominal pain No audible stridor or wheezing Much more awake and alert Nonfocal neuro exam Urinary Catheter Management: Barba: Cath Placed During This Visit: yes, but has since been removed by the nurse Reason for Continuing Indwelling Catheter: Decision to DC Catheter Urinary Catheter Date of Insertion: 12/25/21 Urinary Catheter Time of Insertion: 12:30 Date Urinary Catheter Removed: 01/02/22 Time Urinary Catheter Discontinued: 11:00 Data : 01/01/22 04:02 01/03/22 05:12 A&P Assessment and plan (1) Suicide attempt: Status: Acute (2) Refeeding syndrome: Status: Acute (3) Respiratory failure with hypoxia and hypercapnia: Status: Acute (4) C. difficile diarrhea: Status: Acute (5) Altered mental status: Status: Acute (6) Acute hypoxemic respiratory failure: Status: Acute (7) Hypokalemia: Status: Acute (8) Intentional overdose of trazodone: Status: Acute (9) Alcohol intoxication: Status: Acute (10) Alcohol use disorder, severe, dependence: Status: Acute Plan acute hypoxia related to pneumonia, requiring 4 L nasal cannula Switched him to Augmentin Refeeding syndrome: Improved Hypomagnesemia, hypokalemia and hypophosphatemia: Improved C. difficile diarrhea: He will finish 10 days of p.o. vancomycin Right now he is having 2-3 bowel movements a day Afebrile Moraxella catarrhalis likely etiology for COPD exacerbation Successfully extubated Suicide attempt 96-hour hold I have been talking with a psychiatrist on daily basis since last 3 days, Dr. Menchaca stating that today he will not be able to see him, he told me that Dr. Bang might be able to see him tomorrow And neuropsych he will need contact isolation because of the C. difficile, ideally a private room Attestations Medical Necessity Statement*: Transferred to neuropsych Time Spent in Patient Care: 30 Coding Level of Care Code Acute Claim Attorney for Chg Fwd Diagnoses Suicide attempt T14.91XA Refeeding syndrome E87.8 Respiratory failure with hypoxia and hypercapnia J96.91; J96.92 C. difficile diarrhea A04.72 Altered mental status R41.82 Acute hypoxemic respiratory failure J96.01 Hypokalemia E87.6 Intentional overdose of trazodone T43.212A Alcohol intoxication F10.929 Alcohol use disorder, severe, dependence F10.20
--- NOTE | 2022-01-03 12:22 | PC.SOCIAL ---
IMM Update pg 2 of IMM updated and reviewed w/ patient. Copy provided and Copy in chart updated.
--- NOTE | 2022-01-03 17:48 | PC.NURSE ---
Pt refusing to wear telemetry
[2022-01-03 18:08] LABS: Glucose Point of Care 112 mg/dL (70-110)
[2022-01-03 21:05] LABS: Glucose Point of Care 110 mg/dL (70-110)
[2022-01-03] MEDS: zolpidem 5 mg Tablet PO (21:37)
[2022-01-04] VITALS (9 sets, daily range): BP systolic 101–122; BP diastolic 65–87; PULSE 72–82; RESP 16–20; TEMP 36.6–36.8; O2SAT 92–99
[2022-01-04 06:30] LABS: Glucose Point of Care 101 mg/dL (70-110)
--- NOTE | 2022-01-04 08:22 | PC.NURSE ---
Clarified orders for potassium PO and liquid. Orders received from Dr. Osborn to discontinue PO.
[2022-01-04] MEDS: magnesium oxide 400 mg tablet PO ×2 (08:28→17:07)
[2022-01-04] MEDS: metoprolol tartrate 25 mg Tablet PO (08:28)
[2022-01-04] MEDS: nicotine 14 mg Patch 1 PATCH TRANSDERMA (08:28)
[2022-01-04] MEDS: phosphorus 250 mg Tablet PO ×2 (08:28→17:07)
[2022-01-04] MEDS: aspirin 81 mg EC Tablet PO (08:28)
[2022-01-04] MEDS: folic acid 1 mg Tablet PO (08:28)
[2022-01-04] MEDS: pantoprazole 40 mg SDV IVP (08:28)
[2022-01-04] MEDS: multivitamin therapeutic Tablet 1 TAB PO (08:29)
[2022-01-04] MEDS: potassium chloride oral liq 20 mEq/15 mL UDC 40 MEQ PO (08:29)
[2022-01-04] MEDS: apixaban 5 mg Tablet PO ×2 (08:29→17:07)
[2022-01-04 10:25] LABS: Potassium 4.5 mmol/L (3.5-5.1)
[2022-01-04 10:27] LABS: Magnesium 2.3 mg/dL (1.7-2.3)
[2022-01-04 11:13] LABS: Glucose Point of Care 127 mg/dL (70-110)
--- NOTE | 2022-01-04 12:41 | PM.PN ---
Subjective Subjective: Patient stating he is having more than 6 episodes of diarrhea, potassium 4.5, mag 2.3 Endorsing feeling better Currently on 4 L nasal cannula Awaiting callback from Dr. Bang, Vitals/I&O/Wt Last Vital Signs Temp 97.9 F 01/04/22 11:49 Pulse 77 01/04/22 11:49 Resp 16 01/04/22 11:49 BP 104/70 01/04/22 11:49 Pulse Ox 98 01/04/22 11:49 01/03/22 01/04/22 01/04/22 22:59 06:59 14:59 Intake Total 1490 / 0 45 / 2135 240 / 240 Balance 1490 / 0 45 / 2135 240 / 240 Weight last 48 hrs Weight 68.492 kg Weight 68.629 kg Physical Exam Narrative: Euvolemic On 4 L Abdomen soft Much more awake and alert Nonfocal neuro exam No active shortness of breath S1, S2 Cooperative and pleasant One-to-one supervision Urinary Catheter Management: Barba: Cath Placed During This Visit: yes, but has since been removed by the nurse Reason for Continuing Indwelling Catheter: Decision to DC Catheter Urinary Catheter Date of Insertion: 12/25/21 Urinary Catheter Time of Insertion: 12:30 Date Urinary Catheter Removed: 01/02/22 Time Urinary Catheter Discontinued: 11:00 Data : 01/01/22 04:02 01/04/22 09:25 A&P Assessment and plan (1) Refeeding syndrome: Status: Acute (2) Respiratory failure with hypoxia and hypercapnia: Status: Acute (3) Altered mental status: Status: Acute (4) Acute hypoxemic respiratory failure: Status: Acute (5) C. difficile diarrhea: Status: Acute (6) Hypokalemia: Status: Acute (7) Intentional overdose of trazodone: Status: Acute (8) Alcohol intoxication: Status: Acute (9) Suicide attempt: Status: Acute (10) Alcohol use disorder, severe, dependence: Status: Acute (11) HIV (human immunodeficiency virus infection): Status: Acute Qualifiers: HIV symptom status: asymptomatic, with no history of HIV-related illness Qualified Code(s): Z21 - Asymptomatic human immunodeficiency virus [HIV] infection status (12) COPD (chronic obstructive pulmonary disease): Status: Acute Plan COPD exacerbation: Improved Successfully extubated Suicidal ideation New onset PE, DVT continue anticoagulating agent C. difficile diarrhea: More than 6 episodes Will add cholestyramine Electrolytes: Replenished Awaiting neuropsych eval Because of active diarrhea we will touch base with Dr. Bang if they can accommodate him n.p.o. I will do 14-day p.o. vancomycin regimen Currently requiring 4 L nasal cannula for COPD exacerbation since extubation Afebrile 96-hour hold reinstated Attestations Medical Necessity Statement*: Continue medical management Time Spent in Patient Care: 10 Coding Level of Care Code Acute Appellate Conferee for Chg Fwd Diagnoses Refeeding syndrome E87.8 Respiratory failure with hypoxia and hypercapnia J96.91; J96.92 Altered mental status R41.82 Acute hypoxemic respiratory failure J96.01 C. difficile diarrhea A04.72 Hypokalemia E87.6 Intentional overdose of trazodone T43.212A Alcohol intoxication F10.929 Suicide attempt T14.91XA Alcohol use disorder, severe, dependence F10.20 HIV (human immunodeficiency virus infection) Z21 HIV symptom status: asymptomatic, with no history of HIV-related illness COPD (chronic obstructive pulmonary disease) J44.9
[2022-01-04] MEDS: cholestyramine powder 4 gm Pkt PO (14:55)
[2022-01-04 16:32] LABS: Glucose Point of Care 107 mg/dL (70-110)
[2022-01-04] MEDS: zolpidem 5 mg Tablet PO (21:05)
[2022-01-04 21:28] LABS: Glucose Point of Care 128 mg/dL (70-110)
[2022-01-05] VITALS (9 sets, daily range): BP systolic 90–118; BP diastolic 61–78; PULSE 66–89; RESP 16–18; TEMP 36.5–36.8; O2SAT 90–98
[2022-01-05 05:52] LABS: Magnesium 2.5 mg/dL (1.7-2.3); Potassium 4.7 mmol/L (3.5-5.1)
[2022-01-05 06:20] LABS: Glucose Point of Care 87 mg/dL (70-110)
[2022-01-05] MEDS: magnesium oxide 400 mg tablet PO (08:53)
[2022-01-05] MEDS: potassium chloride oral liq 20 mEq/15 mL UDC 40 MEQ PO (08:53)
[2022-01-05] MEDS: metoprolol tartrate 25 mg Tablet PO ×2 (08:53→21:30)
[2022-01-05] MEDS: phosphorus 250 mg Tablet PO ×2 (08:53→17:44)
[2022-01-05] MEDS: apixaban 5 mg Tablet PO ×2 (08:54→17:44)
[2022-01-05] MEDS: folic acid 1 mg Tablet PO (08:54)
[2022-01-05] MEDS: nicotine 14 mg Patch 1 PATCH TRANSDERMA (08:54)
[2022-01-05] MEDS: multivitamin therapeutic Tablet 1 TAB PO (08:54)
[2022-01-05] MEDS: cholestyramine powder 4 gm Pkt PO (10:10)
--- NOTE | 2022-01-05 10:22 | PC.OT ---
OT NOTE: PATIENT HAS MET ALL OT GOALS; NO LONGER REQUIRES SKILLED OT SERVICES. DISCHARGE FROM SKILLED OT SERVICES.
--- NOTE | 2022-01-05 11:43 | P.PN_ITS ---
Subjective Subjective: Patient is stating that he is not going to stay in the hospital once is 96hr hold is done, I have told him that he needs to see Dr. Bang today and he cannot leave until he is seen by a psychiatrist Still endorsing more than 6 episodes of diarrhea, stating that cholestyramine has not helped his symptoms at all on 3 to 4 L of nasal cannula Vitals/I&O/Wt Last Vital Signs Temp 97.8 F 01/05/22 08:00 Pulse 85 01/05/22 08:00 Resp 16 01/05/22 08:00 BP 90/61 01/05/22 08:00 Pulse Ox 95 01/05/22 08:00 01/04/22 01/05/22 01/05/22 22:59 06:59 14:59 Intake Total 340 / 820 100 / 920 480 / 480 Balance 340 / 820 100 / 920 480 / 480 Weight last 48 hrs Weight 68.855 kg Weight 68.492 kg Physical Exam Narrative: Awake and alert Nonfocal neuro exam No signs of delirium or dementia Abdomen is soft Looks hydrated Looks fresh and awake Alert and oriented Saturating well on 4 L nasal cannula Urinary Catheter Management: Barba: Cath Placed During This Visit: yes, but has since been removed by the nurse Reason for Continuing Indwelling Catheter: Decision to DC Catheter Urinary Catheter Date of Insertion: 12/25/21 Urinary Catheter Time of Insertion: 12:30 Date Urinary Catheter Removed: 01/02/22 Time Urinary Catheter Discontinued: 11:00 Data : 01/01/22 04:02 01/05/22 04:45 A&P Assessment and plan (1) Refeeding syndrome: Status: Acute (2) C. difficile diarrhea: Status: Acute (3) Respiratory failure with hypoxia and hypercapnia: Status: Acute (4) Altered mental status: Status: Acute (5) Acute hypoxemic respiratory failure: Status: Acute (6) Hypokalemia: Status: Acute (7) Intentional overdose of trazodone: Status: Acute (8) Alcohol intoxication: Status: Acute Plan Patient uses 4 L of oxygen at home C. difficile diarrhea: He will finish his 10 days of C. difficile p.o. vancomycin regimen on Sunday Still having more than 6 episodes of diarrhea At risk of dehydration Not ready to be discharged 96-hour hold Dr. Bang to see him today Hypokalemia: Repleted Magnesium 2.5 Patient is full code Attestations Medical Necessity Statement*: Awaiting evaluation by neuropsych Time Spent in Patient Care: 30 Coding Level of Care Code Acute Water Fitness Instructor for Chg Fwd Diagnoses Refeeding syndrome E87.8 C. difficile diarrhea A04.72 Respiratory failure with hypoxia and hypercapnia J96.91; J96.92 Altered mental status R41.82 Acute hypoxemic respiratory failure J96.01 Hypokalemia E87.6 Intentional overdose of trazodone T43.212A Alcohol intoxication F10.929
[2022-01-05 12:08] LABS: Glucose Point of Care 98 mg/dL (70-110)
--- NOTE | 2022-01-05 12:15 | PC.NURSE ---
Dr. Osborn notified of 2.5 magnesium and verbal orders received to hold magnesium at this time.
--- NOTE | 2022-01-05 12:43 | PC.SOCIAL ---
IMM Updated Updated pt on IMM. No questions voiced. Provided pt a copy. Initialed, dated, & timed copy in chart.
--- NOTE | 2022-01-05 15:36 | PC.NURSE ---
Per NPU and 96 hour hold protocol patient can only have visitors 3-4pm daily and can only make phone calls from 7am-10pm daily. Will pass on to upcoming shift
[2022-01-05 17:12] LABS: Glucose Point of Care 109 mg/dL (70-110)
--- NOTE | 2022-01-05 17:26 | P.NPUHP_ITS ---
Providers/Chief Complaint Admitting Physician: Dianne Galvan MD Primary Care Provider: Rasheed Spivey MD Chief Complaint: AMS HPI NPU History of Present Illness Flakito Almanzar is a 61 year old male who presented to the emergency department with the following report: Chief complaint: Psychiatric Symptoms Stated complaint: AMS Time Seen by Provider: 12/25/21 11:30 History of Present Illness: Patient is a 61-year-old male with history of chronic alcohol dependence, COPD, atrial fibrillation depression who presents the emergency room with concerns for altered mental status. Patient told EMS that he had an abnormal ingestion of trazodone. Since then, patient has become confused and altered. Patient is intermittent somnolent and confused and unable to follow commands at this time. Patient reports feeling suicidal earlier today. On arrival, patient was noted to be satting 82% on 6 L of oxygen. Onset: unknown Duration:ongoing Location:home Severity:severe He was admitted to the ICU, intubated and treated for his presentation by the hospitalist. Ultimately he was extubated and transferred to [facility] for continued treatment of his other medical ailments while keeping him safe from the psychiatric concerns. He ultimately additionally was diagnosed with C. difficile and is getting the antibiotics but still having 6 episodes of diarrhea at least a day and is in contact isolation due to this concern. He presents today reporting that his 96-hour hold will be up today and he plans to sign out AMA. He is known to this contract technical writer from multiple past hospitalizations and presents most likely did not know situations recently having had we will s ignificant overdoses but having little to no insight into the dangerousness of his situation. This hospitalization he presented with a blood alcohol of 531. We had a lengthy discussion about this being a toxic level of alcohol ingestion that ended up itself could lead to and he spent much of the time of the interview promising that he would not drink again. We discussed the lack of weight that he will probably not to drink has after 3 years of caring for him and this escalating self destroyed behavior. All he can muster is that he needs to go home because he has a dog and he has a . We discussed the danger of his C. difficile the significant infectious disease concerns of him leaving the building, spreading it to others as well as the health medications were held given his other comorbidities and all he could muster was I need to go home. We discussed that it was completely unsafe for him to do that between a suicide attempt, discontinue drinking and his lack of insight into his health situation that he would review the 96-hour hold paperwork to make sure it was managed appropriately and would initiate a 21-day hold if necessary but that he would not be going home. Meds NPU Home Medications Medication Instructions Recorded Confirmed Last Taken Type dolutegravir 50 mg-lamivudine 300 1 tab PO QAM 04/11/20 12/25/21 11/25/20 History mg tablet (Dovato) sildenafil (pulm.hypertension) 20 20 mg PO TID 04/11/20 12/25/21 11/25/20 History mg tablet apixaban 5 mg tablet (Eliquis) 5 mg PO BID 06/29/20 12/25/21 11/21/20 History macitentan 10 mg tablet (Opsumit) 10 mg PO DAILY 06/29/20 12/25/21 11/25/20 History multivitamin 1 tab PO DAILY 06/29/20 12/25/21 11/25/20 History mirtazapine 15 mg tablet 15 mg PO BEDTIME 02/10/21 12/25/21 03/11/21 History testosterone 20.25 mg/1.25 gram 2 pump TOPICAL QAM 02/10/21 12/25/21 Unknown History (1.62 %) transdermal gel pump trazodone 150 mg tablet 150 - 300 mg PO BEDTIME 02/10/21 12/25/21 Unknown History Cam Walker #1 ea 02/24/21 12/25/21 Unknown Rx albuterol sulfate 90 mcg/actuation 2 inh INHALATION Q4H PRN #18 gm 10/25/21 12/25/21 Unknown Rx aerosol inhaler crofelemer 125 mg tablet,delayed 125 mg PO BID 10/25/21 12/25/21 Unknown History release (Mytesi) prednisolone acetate 1 % eye 1 drp OPHTHALMIC (EYE) BID 10/25/21 12/25/21 Unknown History drops,suspension sulfamethoxazole 800 1 tab PO .MON,WED,FRI 10/25/21 12/25/21 Unknown History mg-trimethoprim 160 mg tablet Allergies Allergy/AdvReac Type Severity Reaction Status Date / Time No Known Allergies Allergy Verified 10/25/21 08:52 PFSH NPU PFSH: Medical History Alcohol dependence Alcohol use disorder Anorexia Atrial fibrillation Closed fractures involving multiple regions of right lower extremity Colon polyps COPD (chronic obstructive pulmonary disease) Severe COPD Deliberate medication overdose Depression Depressive disorder Diverticulitis / Diverticulosis GI bleed Was taken off Coumadin for a month in 2015 after a bleeding gastric ulcer, currently on Eliquis History of peptic ulcer disease HIV (human immunodeficiency virus infection) Hypogonadism Liver tumor Lymphoma 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 No evidence of recurrence, currently getting [facility] prophylaxis with intrathecal methotrexate with prophylactic radiation to right testicle, [facility] treatment Major depressive disorder Meningitis Orchialgia Posttraumatic stress disorder Pulmonary embolism DVT of right leg, 2009 Pulmonary hypertension After PE Suicide attempt Surgical History H/O colonoscopy 2001 -diverticulosis, colon polyps / 2005 -diverticulosis, small telangiectasia / 01/2016 -diverticulosis with intrinsic stenosis and sigmoid H/O esophagogastroduodenoscopy 2005 -reflux esophagitis, superficial gastric erosions with hemorrhagic gastritis, duodenitis /2008 -reflux esophagitis, gastritis, small chronic gastric ulcer H/O hemorrhoidectomy History of orchiectomy, unilateral L -- diffuse large B-cell lymphoma Family History Other No pertinent family history Social History Smoking and tobacco status: current every day smoker (pack a day) cigarettes Packs smoked per day: 1 Alcohol intake: current Lives independently: Yes Housing: House Mental Status Exam MSE Comments: This is a slender white male in hospital gown with limited grooming and adequate eye contact.? Patient with nasal cannula in.? No abnormal movement except for psychomotor retardation.? Cooperative with exam in mild to moderate distress.? Speech was decreased rate and volume.? Mood described as happy to go home, affect subdued and irritable. Thought process organized.? Thought content: Patient denied suicidal or homicidal ideation, there were no delusions reported or noted, he denies any auditory or visual hallucinations.? Attention and concentration were limited and memory was unreliable but none were formally tested.? He is alert and oriented x3.? Insight and judgment are impaired and impulse control is impaired. Vitals/I&O/Wt Last Vital Signs Temp 98.3 F 01/05/22 16:00 Pulse 77 01/05/22 16:00 Resp 16 01/05/22 16:00 BP 103/69 01/05/22 16:00 Pulse Ox 96 01/05/22 16:00 01/05/22 14:59 Intake Total 960 / 960 Balance 960 / 960 Weight last 48 hrs Weight 68.447 kg Weight 68.855 kg Physical Exam Urinary Catheter Management: Barba: Cath Placed During This Visit: yes, but has since been removed by the nurse Reason for Continuing Indwelling Catheter: Decision to DC Catheter Urinary Catheter Date of Insertion: 12/25/21 Urinary Catheter Time of Insertion: 12:30 Date Urinary Catheter Removed: 01/02/22 Time Urinary Catheter Discontinued: 11:00 Data NPU : 01/01/22 04:02 01/05/22 04:45 A&P Assessment and plan (1) Refeeding syndrome: Status: Acute (2) C. difficile diarrhea: Status: Acute (3) Respiratory failure with hypoxia and hypercapnia: Status: Acute (4) Altered mental status: Status: Acute (5) Acute hypoxemic respiratory failure: Status: Acute (6) Hypokalemia: Status: Acute (7) Intentional overdose of trazodone: Status: Acute (8) Alcohol intoxication: Status: Acute (9) Suicide attempt: Status: Acute (10) Alcohol use disorder, severe, dependence: Status: Acute (11) HIV (human immunodeficiency virus infection): Status: Acute Qualifiers: HIV symptom status: asymptomatic, with no history of HIV-related illness Qualified Code(s): Z21 - Asymptomatic human immunodeficiency virus [HIV] infection status (12) COPD (chronic obstructive pulmonary disease): Status: Acute (13) Major depressive disorder, recurrent: Status: Chronic Plan This is a 61-year-old white male with a long history of alcohol dependence, HIV, major depression with frequent hospitalizations with ICU stays and inpatient psychiatric treatment who presents as a transfer from the ICU currently on the MedSurg unit with a 96-hour hold after conflict with his significant other coupled with heavy drinking reporting as usual that he is no longer suicidal and wants to leave as soon as possible including AGAINST MEDICAL ADVICE 1.? Continue current medication.? 2.? Continue one-to-one while on MedSurg 3.? Would be appropriate for transfer to neuropsychiatric unit once he is medically cleared and off contact precautions 4.? Encourage sober living treatment after discharge in the inpatient program.? He continues to be resistant to inpatient resources for his alcohol addiction. 5. We will initiate 21-day hold if there are any discrepancies on his 96-hour hold being valid. Involuntary Hold Information 96 Hour Hold: 96 Hour Involuntary Admission: Yes 96 Hour Hold Ending Date: 11/22/21 96 Hour Hold Ending Time: 01:46 Attestations NPU Medical Necessity Statement*: N/A. Please see primary team note for medical necessity however agree for need for continued inpatient medical care as well as psychiatric care. At present Coding Level of Care Code Acute Fish Dressing Machine Feeder for g Fwd Diagnoses Refeeding syndrome E87.8 C. difficile diarrhea A04.72 Respiratory failure with hypoxia and hypercapnia J96.91; J96.92 Altered mental status R41.82 Acute hypoxemic respiratory failure J96.01 Hypokalemia E87.6 Intentional overdose of trazodone T43.212A Alcohol intoxication F10.929 Suicide attempt T14.91XA Alcohol use disorder, severe, dependence F10.20 HIV (human immunodeficiency virus infection) Z21 HIV symptom status: asymptomatic, with no history of HIV-related illness COPD (chronic obstructive pulmonary disease) J44.9 Major depressive disorder, recurrent F33.9
--- NOTE | 2022-01-05 18:44 | PC.NURSE ---
Bedside report given to MIRIAN Espitia.
[2022-01-05 20:48] LABS: Glucose Point of Care 128 mg/dL (70-110)
[2022-01-06 04:00] VITALS: BP 108/71; PULSE 75; RESP 16; TEMP 36.9; O2SAT 94
[2022-01-06 08:00] VITALS: PULSE 78; RESP 18; O2SAT 98
[2022-01-06] MEDS: nicotine 14 mg Patch 1 PATCH TRANSDERMA (08:34)
[2022-01-06] MEDS: apixaban 5 mg Tablet PO ×2 (08:35→17:22)
[2022-01-06] MEDS: folic acid 1 mg Tablet PO (08:35)
[2022-01-06] MEDS: metoprolol tartrate 25 mg Tablet PO (08:37)
--- NOTE | 2022-01-06 10:29 | P.PN_ITS ---
Subjective Subjective: Patient is stating that he had 9 bowel movement yesterday, he does not want to use p.o. vancomycin, I asked him to hold p.o. vancomycin just 1 day He is able to get up and go to the bathroom Vitals/I&O/Wt Last Vital Signs Temp 98.5 F 01/06/22 04:00 Pulse 78 01/06/22 08:00 Resp 18 01/06/22 08:00 BP 108/71 01/06/22 04:00 Pulse Ox 98 01/06/22 08:00 01/05/22 01/06/22 01/06/22 22:59 06:59 14:59 Intake Total 240 / 1200 240 / 1440 600 / 600 Balance 240 / 1200 240 / 1440 600 / 600 Weight last 48 hrs Weight 68.447 kg Weight 68.855 kg Physical Exam Narrative: Nonfocal neuro exam Awake and alert Pleasant Cooperative Currently at 4 L nasal cannula No active chest pain or abdominal pain No audible stridor or wheezing Awake and alert Neuro, PERRLA Urinary Catheter Management: Barba: Cath Placed During This Visit: yes, but has since been removed by the nurse Reason for Continuing Indwelling Catheter: Decision to DC Catheter Urinary Catheter Date of Insertion: 12/25/21 Urinary Catheter Time of Insertion: 12:30 Date Urinary Catheter Removed: 01/02/22 Time Urinary Catheter Discontinued: 11:00 Data : 01/01/22 04:02 01/05/22 04:45 A&P Assessment and plan (1) Refeeding syndrome: Status: Acute (2) C. difficile diarrhea: Status: Acute (3) Respiratory failure with hypoxia and hypercapnia: Status: Acute (4) Altered mental status: Status: Acute (5) Acute hypoxemic respiratory failure: Status: Acute (6) Hypokalemia: Status: Acute (7) Intentional overdose of trazodone: Status: Acute (8) Alcohol intoxication: Status: Acute (9) Suicide attempt: Status: Acute (10) Alcohol use disorder, severe, dependence: Status: Acute (11) HIV (human immunodeficiency virus infection): Status: Acute Qualifiers: HIV symptom status: asymptomatic, with no history of HIV-related illness Qualified Code(s): Z21 - Asymptomatic human immunodeficiency virus [HIV] inf ection status Plan Refeeding syndrome: Electrolytes replenished C. difficile diarrhea patient had an episode yesterday, he does not want to use p.o. vancomycin, anymore however he is willing to try restarting it tomorrow he wants to give himself a break I do believe HIV related Motility disorder is also playing some role He is on 4 L which is her home oxygen requirement Dr. Bang is stating that he cannot isolate anyone with C. difficile in npu Full code Advance diet to regular 21-day commitment has been signed as per the piano case and bench assembler Patient cannot leave AGAINST MEDICAL ADVICE Attestations Medical Necessity Statement*: transfer to npu Time Spent in Patient Care: 15 Coding Level of Care Code Acute Esthetic Dermatologist for Chg Fwd Diagnoses Refeeding syndrome E87.8 C. difficile diarrhea A04.72 Respiratory failure with hypoxia and hypercapnia J96.91; J96.92 Altered mental status R41.82 Acute hypoxemic respiratory failure J96.01 Hypokalemia E87.6 Intentional overdose of trazodone T43.212A Alcohol intoxication F10.929 Suicide attempt T14.91XA Alcohol use disorder, severe, dependence F10.20 HIV (human immunodeficiency virus infection) Z21 HIV symptom status: asymptomatic, with no history of HIV-related illness
--- NOTE | 2022-01-06 11:35 | PC.NURSE ---
Patient was talking on phone to unknown person and asked them when they went to his house tomorrow to grab his trazadone and bring it to him. Unknown person spoke then patient stated I don't care just bring me one of them. They don't have to know. Patient continued phone conversation asked unknown person to check on his house and dog.
[2022-01-06 15:32] VITALS: BP 106/73; PULSE 78; RESP 18; TEMP 36.6; O2SAT 97
[2022-01-06 15:46] VITALS: BP 106/73; PULSE 78; RESP 18; TEMP 36.6; O2SAT 97
[2022-01-06 19:29] VITALS: BP 101/74; PULSE 74; RESP 18; TEMP 36.7; O2SAT 98
[2022-01-06 20:00] VITALS: PULSE 91; RESP 18; O2SAT 96
--- NOTE | 2022-01-06 21:45 | PC.NURSE ---
Patient was on phone speaking to unknown person and asked them to check on his house and dog tomorrow and to bring him his trazadone that he has at home. Administrative Support Technician could not hear what the reply was, Patient then said I don't care just bring me one of them. Unknown person spoke, patient stated They don't have to know, just bring it to me when you visit tomorrow. Charge nurse notified.
[2022-01-06] MEDS: zolpidem 5 mg Tablet PO (22:04)
--- NOTE | 2022-01-06 22:29 | PC.NURSE ---
Patient was served papers by a [facility] Martha for court hearing on January 10, 2022 at 2:30pm via video conference. Patient is verbalizing that he is unhappy about this and feels like he has been thrown under the bus.
[2022-01-07 04:00] VITALS: BP 104/76; PULSE 88; RESP 18; TEMP 36.6; O2SAT 94
[2022-01-07 05:50] LABS: Basophils # 0.1 10^3/uL (0.0-0.1); Basophils % 1.2 %; Eosinophils # 0.1 10^3/uL (0.0-0.8); Eosinophils % 1.3 %; Hematocrit 39.8 % (42.0-52.0); Hemoglobin 13.8 g/dL (11.7-16.6); Lymphocytes # 2.3 10^3/uL (0.8-4.8); Lymphocytes % 23.3 %; Mean Corpuscular HGB Conc 34.7 g/dL (30.0-36.0); Mean Corpuscular Hemoglobin 32.5 pg (28.0-34.0); Mean Corpuscular Volume 93.6 fl (80-94); Monocytes # 1.2 10^3/uL (0.2-0.9); Monocytes % 11.8 %; Neutrophils % 61.7 %; Nucleated Red Blood Cells % 0 %; Platelet Count 366 10^3/cmm (130-400); Red Blood Count 4.25 10^6/uL (4.1-5.3); Red Cell Distribution Width 14.8 % (12.1-15.1); White Blood Count 9.9 10^3/uL (4.0-10.0)
[2022-01-07 06:15] LABS: Anion Gap 13.9 (5-19); Blood Urea Nitrogen 9 mg/dL (8-23); Calcium 9.1 mg/dL (8.5-10.5); Carbon Dioxide 24 mmol/L (22-29); Chloride 103 mmol/L (98-107); Glomerular Filtration Rate 137.4 mL/min (90-130); Glucose 102 mg/dL (65-115); Osmolality Calculated 283 mOsm/kg (285-295); Potassium 3.9 mmol/L (3.5-5.1); Sodium 137 mmol/L (136-145)
[2022-01-07 08:00] VITALS: BP 98/55; PULSE 85; PULSE 92; RESP 16; RESP 17; TEMP 36.9; O2SAT 93; O2SAT 94
--- NOTE | 2022-01-07 08:33 | PC.SOCIAL ---
IMM Not Updated patient is on a 21 day hold anticipating transfer to NPU. No anticipating DC in the next 24 hours.
[2022-01-07] MEDS: apixaban 5 mg Tablet PO ×2 (09:50→17:26)
[2022-01-07] MEDS: magnesium oxide 400 mg tablet PO (09:50)
[2022-01-07] MEDS: folic acid 1 mg Tablet PO (09:50)
[2022-01-07] MEDS: nicotine 14 mg Patch 1 PATCH TRANSDERMA (09:51)
--- NOTE | 2022-01-07 11:12 | PM.PN ---
Subjective Subjective: We will discontinue isolation once he is having less than 3 liquid stools a day for now continue isolation Patient was asking for his bosentan We will hold this medication for now He is currently on 4 L nasal cannula No acute resp distress He was asking to see Dr. Bang today, I have updated Dr. Bang He has court orders for 21-day commitment Vitals/I&O/Wt Last Vital Signs Temp 98.4 F 01/07/22 08:00 Pulse 92 01/07/22 08:00 Resp 16 01/07/22 08:00 BP 98/55 01/07/22 08:00 Pulse Ox 93 01/07/22 08:00 01/06/22 01/07/22 01/07/22 22:59 06:59 14:59 Intake Total 600 / 1320 480 / 480 Balance 600 / 1320 480 / 480 Weight last 48 hrs Weight 68.447 kg Physical Exam Narrative: Nonfocal neuro exam Saturating well on 4 L nasal cannula Abdomen soft Euvolemic Awake and alert No signs of delirium No audible stridor or wheezing Urinary Catheter Management: Barba: Cath Placed During This Visit: yes, but has since been removed by the nurse Reason for Continuing Indwelling Catheter: Decision to DC Catheter Urinary Catheter Date of Insertion: 12/25/21 Urinary Catheter Time of Insertion: 12:30 Date Urinary Catheter Removed: 01/02/22 Time Urinary Catheter Discontinued: 11:00 Data : 01/07/22 05:25 01/07/22 05:25 A&P Assessment and plan (1) Refeeding syndrome: Status: Acute (2) C. difficile diarrhea: Status: Acute (3) Respiratory failure with hypoxia and hypercapnia: Status: Acute (4) Altered mental status: Status: Acute (5) Acute hypoxemic respiratory failure: Status: Acute (6) Hypokalemia: Status: Acute (7) Intentional overdose of trazodone: Status: Acute (8) Alcohol intoxication: Status: Acute (9) Suicide attempt: Status: Acute Plan C. difficile diarrhea: We will discontinue isolation once he is having less than 3 liquid stools a day History of HIV: Continue HIV medications Pulmonary hypertension: We are holding bosentan for now 21-day commitment court order has been signed and placed at the bedside, patient is aware He cannot leave AGAINST MEDICAL ADVICE He wanted to see Dr. Bang today, I have updated him Patient had 9-10 episodes of loose stools, I will go ahead and increase the dose of vancomycin to 250 mg 4 times daily Repeat CAT scan of abdomen Attestations Medical Necessity Statement*: 21-day commitment Time Spent in Patient Care: 30 Coding Level of Care Code Acute Insulation Cutter for Chg Fwd Diagnoses Refeeding syndrome E87.8 C. difficile diarrhea A04.72 Respiratory failure with hypoxia and hypercapnia J96.91; J96.92 Altered mental status R41.82 Acute hypoxemic respiratory failure J96.01 Hypokalemia E87.6 Intentional overdose of trazodone T43.212A Alcohol intoxication F10.929 Suicide attempt T14.91XA
--- NOTE | 2022-01-07 11:16 | XRR_ITS ---
PROCEDURE INFORMATION: Exam: XR Abdomen Exam date and time: 01/07/2022 1:24 PM Age: 61 years old Clinical indication: Diarrhea. Clostridium difficile. TECHNIQUE: Imaging protocol: Radiologic exam of the abdomen. Views: Frontal supine view of the abdomen. 1 View. COMPARISON: CT chest abd pel w con* 02/10/2021 4:09 PM FINDINGS: Gastrointestinal tract: There is moderate gas and stool in the colon. No evidence of small-bowel obstruction. Intraperitoneal space: No gross free air. Bones/joints: No gross acute fracture. XR/XR KUB portable [id number] IMPRESSION: 1. Moderate gas and stool in the colon. 2. No evidence of small-bowel obstruction.
[2022-01-07 12:00] VITALS: BP 114/75; PULSE 93; RESP 17; TEMP 36.7; O2SAT 96
--- NOTE | 2022-01-07 13:29 | W.PM.NPUPNS ---
Subjective NPU Subjective: Patient presents today reporting that he still struggling with the C. difficile. We had long discussion about him trying to leave AMA and his continued demonstration of poor judgment that has led to the 21-day hold. He continued to have psychoeducation around his high toxic blood alcohol levels as well as his risk for bad outcomes given his current behavior. He continues to lack rational thinking surrounding some critical decisions. Mental Status Exam MSE Comments: This is a slender white male in hospital gown with limited grooming and adequate eye contact.? Patient with nasal cannula in.? No abnormal movement except for psychomotor retardation.? Cooperative with exam in no acute distress.? Speech was more normal rate and volume.? Mood described as wish I could go home, affect subdued and irritable.? Thought process organized.? Thought content: Patient denied suicidal or homicidal ideation, there were no delusions reported or noted, he denies any auditory or visual hallucinations.? Attention and concentration were limited and memory was unreliable but none were formally tested.? He is alert and oriented x3.? Insight and judgment are impaired and impulse control is impaired. Vitals/I&O/Wt Last Vital Signs Temp 98.1 F 01/07/22 12:00 Pulse 93 01/07/22 12:00 Resp 17 01/07/22 12:00 BP 114/75 01/07/22 12:00 Pulse Ox 96 01/07/22 12:00 01/06/22 01/07/22 01/07/22 22:59 06:59 14:59 Intake Total 600 / 1320 960 / 960 Balance 600 / 1320 960 / 960 Weight last 48 hrs Weight 68.447 kg Physical Exam Urinary Catheter Management: Barba: Cath Placed During This Visit: yes, but has since been removed by the nurse Reason for Continuing Indwelling Catheter: Decision to DC Catheter Urinary Catheter Date of Insertion: 12/25/21 Urinary Catheter Time of Insertion: 12:30 Date Urinary Catheter Removed: 01/02/22 Time Urinary Catheter Discontinued: 11:00 Data NPU : 01/07/22 05:25 01/08/22 05:00 A&P Assessment and plan (1) Refeeding syndrome: Status: Acute (2) C. difficile diarrhea: Status: Acute (3) Respiratory failure with hypoxia and hypercapnia: Status: Acute (4) Altered mental status: Status: Acute (5) Acute hypoxemic respiratory failure: Status: Acute (6) Hypokalemia: Status: Acute (7) Intentional overdose of trazodone: Status: Acute (8) Alcohol intoxication: Status: Acute (9) Suicide attempt: Status: Acute (10) Alcohol use disorder, severe, dependence: Status: Acute (11) HIV (human immunodeficiency virus infection): Status: Acute Qualifiers: HIV symptom status: asymptomatic, with no history of HIV-related illness Qualified Code(s): Z21 - Asymptomatic human immunodeficiency virus [HIV] infection status (12) COPD (chronic obstructive pulmonary disease): Status: Acute (13) Major depressive disorder, recurrent: Status: Chronic Plan This is a 61-year-old white male with a long history of alcohol dependence, HIV, major depression with frequent hospitalizations with ICU stays and inpatient psychiatric treatment who presents as a transfer from the ICU currently on the MedSurg unit with a 96-hour hold after conflict with his significant other coupled with heavy drinking reporting as usual that he is no longer suicidal and wants to leave as soon as possible including AGAINST MEDICAL ADVICE 1.? Continue current medication.? 2.? Continue one-to-one while on MedSurg 3.? Would be appropriate for transfer to neuropsychiatric unit once he is medically cleared and off contact/isolation precautions 4.? Encourage sober living treatment after discharge in the inpatient program.? He continues to be resistant to inpatient resources for his alcohol addiction. 5.? We filed a 21-day hold. Involuntary Hold Information 96 Hour Hold: 96 Hour Involuntary Admission: Yes 96 Hour Hold Ending Date: 11/22/21 96 Hour Hold Ending Time: 01:46 Attestations NPU Medical Necessity Statement*: N/A.? Please see primary team note for medical necessity however agree for need for continued inpatient medical care as well as inpatient psychiatric care at present. Coding Level of Care Code Acute Evp Business Development for [facility] Fwd Diagnoses Refeeding syndrome E87.8 C. difficile diarrhea A04.72 Respiratory failure with hypoxia and hypercapnia J96.91; J96.92 Altered mental status R41.82 Acute hypoxemic respiratory failure J96.01 Hypokalemia E87.6 Intentional overdose of trazodone T43.212A Alcohol intoxication F10.929 Suicide attempt T14.91XA Alcohol use disorder, severe, dependence F10.20 HIV (human immunodeficiency virus infection) Z21 HIV symptom status: asymptomatic, with no history of HIV-related illness COPD (chronic obstructive pulmonary disease) J44.9 Major depressive disorder, recurrent F33.9
[2022-01-07] MEDS: phosphorus 250 mg Tablet PO (17:25)
[2022-01-07 19:05] VITALS: BP 106/75; PULSE 96; RESP 20; TEMP 36.8; O2SAT 97
[2022-01-07 20:00] VITALS: PULSE 93; RESP 18; O2SAT 97
[2022-01-07] MEDS: zolpidem 5 mg Tablet PO (20:53)
[2022-01-07 23:31] VITALS: BP 105/73; PULSE 94; RESP 22; TEMP 36.9; O2SAT 97
[2022-01-08] VITALS (7 sets, daily range): BP systolic 101–116; BP diastolic 58–74; PULSE 81–101; RESP 17–20; TEMP 36.9–38.1; O2SAT 93–97
[2022-01-08 05:40] LABS: Anion Gap 13.9 (5-19); Blood Urea Nitrogen 10 mg/dL (8-23); Calcium 8.8 mg/dL (8.5-10.5); Carbon Dioxide 22 mmol/L (22-29); Chloride 102 mmol/L (98-107); Glomerular Filtration Rate 169.6 mL/min (90-130); Glucose 100 mg/dL (65-115); Osmolality Calculated 277 mOsm/kg (285-295); Potassium 3.9 mmol/L (3.5-5.1); Sodium 134 mmol/L (136-145)
[2022-01-08] MEDS: apixaban 5 mg Tablet PO ×2 (09:36→17:31)
[2022-01-08] MEDS: folic acid 1 mg Tablet PO (09:36)
[2022-01-08] MEDS: phosphorus 250 mg Tablet PO ×2 (09:36→17:30)
[2022-01-08] MEDS: nicotine 14 mg Patch 1 PATCH TRANSDERMA (09:37)
[2022-01-08] MEDS: MACITENTAN 10 MG 10 EACH PO (09:39)
--- NOTE | 2022-01-08 12:17 | P.PN_ITS ---
Subjective Subjective: Less than 4 bowel movements yesterday, semisolid I asked patient that if his bowel movements are less than 3, semisolid we will discontinue isolation and transfer him to neuropsych This might happen tomorrow No overnight events Currently saturating well on 4 L Vitals/I&O/Wt Last Vital Signs Temp 98.4 F 01/08/22 11:17 Pulse 81 01/08/22 11:17 Resp 18 01/08/22 11:17 BP 108/69 01/08/22 11:17 Pulse Ox 93 01/08/22 11:17 01/07/22 01/08/22 01/08/22 22:59 06:59 14:59 Intake Total 600 / 1560 120 / 1680 240 / 240 Balance 600 / 1560 120 / 1680 240 / 240 Physical Exam Narrative: Saturating well on 4 L nasal cannula Hydrated Abdomen soft No new focal deficit Saturating well without any active respiratory distress Awake and alert Nonfocal neuro exam Urinary Catheter Management: Barba: Cath Placed During This Visit: yes, but has since been removed by the nurse Reason for Continuing Indwelling Catheter: Decision to DC Catheter Urinary Catheter Date of Insertion: 12/25/21 Urinary Catheter Time of Insertion: 12:30 Date Urinary Catheter Removed: 01/02/22 Time Urinary Catheter Discontinued: 11:00 Data : 01/07/22 05:25 01/08/22 05:00 A&P Assessment and plan (1) C. difficile diarrhea: Status: Acute (2) Refeeding syndrome: Status: Acute (3) Respiratory failure with hypoxia and hypercapnia: Status: Acute (4) Altered mental status: Status: Acute (5) Hypokalemia: Status: Acute (6) Alcohol intoxication: Status: Acute (7) Alcohol use disorder, severe, dependence: Status: Acute (8) Acute hypoxemic respiratory failure: Status: Acute (9) Intentional overdose of trazodone: Status: Acute (10) Suicide attempt: Status: Acute Plan C. difficile diarrhea: We will discontinue isolation once he is having less than 3 semisolid stools in a day which I am anticipating will happen tomorrow We will transfer him to neuropsych tomorrow Refeeding syndrome: Resolved Acute on chronic hypoxic hypercapnic respite failure: Resolved, extubated succes sfully Currently he is at baseline 4 L nasal cannula Electrolyte imbalance: Replenished Hypomagnesemia hypophosphatemia: Replenished Suicidal ideation, he is on 21-day commitment after 96-hour hold, appreciate neuropsych recommendations Is full code Regular diet DVT prophylaxis on board HIV and pulmonary hypertension medications have been resumed QT prolongation: Resolved Attestations Medical Necessity Statement*: Transfer to neuropsych tomorrow Time Spent in Patient Care: 20 Coding Level of Care Code Acute 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 difficile diarrhea A04.72 Refeeding syndrome E87.8 Respiratory failure with hypoxia and hypercapnia J96.91; J96.92 Altered mental status R41.82 Hypokalemia E87.6 Alcohol intoxication F10.929 Alcohol use disorder, severe, dependence F10.20 Acute hypoxemic respiratory failure J96.01 Intentional overdose of trazodone T43.212A Suicide attempt T14.91XA
[2022-01-08] MEDS: acetaminophen 500 mg Tablet PO (20:09)
[2022-01-08] MEDS: zolpidem 5 mg Tablet PO (20:10)
[2022-01-08] MEDS: metoprolol tartrate 25 mg Tablet PO (20:10)
[2022-01-08] MEDS: ALPRAZolam 0.5 mg Tablet 0.25 MG PO (20:17)
[2022-01-09] VITALS (10 sets, daily range): BP systolic 99–108; BP diastolic 60–69; PULSE 86–106; RESP 16–20; TEMP 36.8–37.6; O2SAT 90–97; BMI 20.5
[2022-01-09] MEDS: apixaban 5 mg Tablet PO ×2 (09:33→21:11)
[2022-01-09] MEDS: folic acid 1 mg Tablet PO (09:42)
[2022-01-09] MEDS: metoprolol tartrate 25 mg Tablet PO ×2 (09:42→21:11)
[2022-01-09] MEDS: nicotine 14 mg Patch 1 PATCH TRANSDERMA (09:42)
[2022-01-09] MEDS: ALPRAZolam 0.5 mg Tablet 0.25 MG PO (10:03)
[2022-01-09] MEDS: MACITENTAN 10 MG 10 EACH PO (10:04)
[2022-01-09] MEDS: phosphorus 250 mg Tablet PO ×2 (10:04→20:54)
--- NOTE | 2022-01-09 12:25 | PC.SOCIAL ---
IMM UPDATED IMM dated and initialed and copy given to patient
--- NOTE | 2022-01-09 17:20 | W.PM.NPUPNS ---
Subjective NPU Subjective: Patient presents today reporting that he is having many less bowel movements and believes that the primary team is going to take him off of isolation precautions. We discussed that we will clear him for transfer to the neuropsychiatric unit. We continue to discuss concerns about safety mostly surrounding his alcohol intoxication, poor decision-making, and multiple suicide attempts recently. We discussed the 21-day hold hearing that will likely be tomorrow or Sunday. Mental Status Exam MSE Comments: This is a slender white male in hospital gown with limited grooming and adequate eye contact.? Patient with nasal cannula in.? No abnormal movement except for psychomotor retardation.? Cooperative with exam in no acute distress.? Speech was more normal rate and volume.? Mood described as I want to go home, affect subdued but less irritable.? Thought process organized.? Thought content: Patient denied suicidal or homicidal ideation, there were no delusions reported or noted, he denies any auditory or visual hallucinations.? Attention and concentration were limited and memory was unreliable but none were formally tested.? He is alert and oriented x3.? Insight and judgment are impaired and impulse control is impaired. Vitals/I&O/Wt Last Vital Signs Temp 98.3 F 01/09/22 07:30 Pulse 95 01/09/22 07:30 Resp 16 01/09/22 07:30 BP 106/67 01/09/22 07:30 Pulse Ox 95 01/09/22 07:30 Weight last 48 hrs Weight 68.447 kg Physical Exam Urinary Catheter Management: Barba: Cath Placed During This Visit: yes, but has since been removed by the nurse Reason for Continuing Indwelling Catheter: Decision to DC Catheter Urinary Catheter Date of Insertion: 12/25/21 Urinary Catheter Time of Insertion: 12:30 Date Urinary Catheter Removed: 01/02/22 Time Urinary Catheter Discontinued: 11:00 Data NPU : 01/07/22 05:25 01/08/22 05:00 A&P Assessment and plan (1) Refeeding syndrome: Status: Acute (2) C. difficile diarrhea: Status: Acute (3) Respiratory failure with hypoxia and hypercapnia: Status: Acute (4) Altered mental status: Status: Acute (5) Acute hypoxemic respiratory failure: Status: Acute (6) Hypokalemia: Status: Acute (7) Intentional overdose of trazodone: Status: Acute (8) Alcohol intoxication: Status: Acute (9) Suicide attempt: Status: Acute (10) Alcohol use disorder, severe, dependence: Status: Acute (11) HIV (human immunodeficiency virus infection): Status: Acute Qualifiers: HIV symptom status: asymptomatic, with no history of HIV-related illness Qualified Code(s): Z21 - Asymptomatic human immunodeficiency virus [HIV] infection status (12) COPD (chronic obstructive pulmonary disease): Status: Acute Plan This is a 61-year-old white male with a long history of alcohol dependence, HIV, major depression with frequent hospitalizations with ICU stays and inpatient psychiatric treatment who presents as a transfer from the ICU currently on the [facility] unit with a 96-hour hold after conflict with his significant other coupled with heavy drinking reporting as usual that he is no longer suicidal and wants to leave as soon as possible including AGAINST MEDICAL ADVICE 1.? Continue current medication.? 2.? Continue one-to-one after transfer from [facility] 3.? Encourage individual, group and milieu therapy. 4.? Encourage sober living treatment after discharge in the inpatient program.? He continues to be resistant to inpatient resources for his alcohol addiction. 5.? Awaiting 21-day hold hearing Involuntary Hold Information 96 Hour Hold: 96 Hour Involuntary Admission: No Attestations NPU Medical Necessity Statement*: Inpatient hospitalization is medically necessary and the clinically appropriate intervention at this time. We will monitor medication to make changes as indicated. Likely length of stay 3 to 5 days. Possibly longer with 21-day hold. 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 difficile diarrhea A04.72 Respiratory failure with hypoxia and hypercapnia J96.91; J96.92 Altered mental status R41.82 Acute hypoxemic respiratory failure J96.01 Hypokalemia E87.6 Intentional overdose of trazodone T43.212A Alcohol intoxication F10.929 Suicide attempt T14.91XA Alcohol use disorder, severe, dependence F10.20 HIV (human immunodeficiency virus infection) Z21 HIV symptom status: asymptomatic, with no history of HIV-related illness COPD (chronic obstructive pulmonary disease) J44.9
--- NOTE | 2022-01-09 18:38 | PC.ADMIT ---
[email or web address] [facility] Admission Note: The patient,Flakito Almanzar,61 y/o, was given written information regarding hospital policies, unit procedures and contact persons. Patient's smoking status: current every day smoker. Vital Signs - 8 hr 01/09/22 12:00 01/09/22 13:40 01/09/22 14:41 Temperature 98.4 F Pulse Rate 88 89 Respiratory Rate 16 18 Blood Pressure 106/69 Pulse Oximetry 97 93 93 01/09/22 16:00 Temperature 98.5 F Pulse Rate 91 Respiratory Rate 16 Blood Pressure 103/66 Pulse Oximetry 96 ADMITTED FROM [facility] AT 1755 WITH SITTER AT SIDE. SKIN ASSESSMENT COMPLETED HAS NEEDLE STICK TO LEFT ARM. 4LO2 VIA NC APPLIED AT BEDSIDE. LUNGS ARE DIMINISHED THROUGHOUT. DENIES PAIN. WHEN ASKED WHY HE IS HERE STATES, I DON'T KNOW I GUESS ALCHOHOL. PT WAS ADMITTED TO THE ER ON 12/25/21 WITH BAL GREATER THAN 500 AND HAD TAKEN TRAZADONE. PT IS SCHEDULED TO GO TO COURT TOMORROW FOR 21 DAY HOLD. PT IS AWARE. PT DENIES SI/HI AND AVH AT THIS TIME. DINNER TRAY BROUGHT TO PT AND CONSUMES 100%. SITTER TO BE AT BEDSIDE AT ALL TIMES DUE TO OXYGEN THERAPY. PT STATES HE HAS NOT BEEN TO NPU IN OVER 2 YEARS WHEN IN FACT HE HAD BEEN HERE 2 MONTHS AGO. DENIES SUBSTANCE ABUSE, SEE SUBSTANCE ABUSE ASSESSMENT FOR PAST HISTORY. PT. IS POSITIVE FOR HIV AND RECENTLY HAD C-DFF. REPORTS LAST DIARRHEA STOOL WAS 01/08/22. ORIENTATED TO UNIT. ALL QUESTION ANSWERED AND SUPPORT VOICED.
[2022-01-09] MEDS: phenyleph-mineral oil-petrolat Oint 28 gm 1 APPLIC PR (20:52)
[2022-01-09] MEDS: zolpidem 5 mg Tablet PO (21:11)
[2022-01-09] MEDS: mirtazapine 15 mg Tablet PO (21:20)
[2022-01-09] MEDS: trazodone 150 mg Tablet PO (21:20)
[2022-01-10 03:53] VITALS: BP 108/67; PULSE 105; RESP 18; TEMP 36.8; O2SAT 94
[2022-01-10 08:00] VITALS: PULSE 99; RESP 18; O2SAT 95
[2022-01-10] MEDS: metoprolol tartrate 25 mg Tablet PO ×2 (08:37→21:07)
[2022-01-10] MEDS: multivitamin therapeutic Tablet 1 TAB PO (08:37)
[2022-01-10] MEDS: folic acid 1 mg Tablet PO (08:38)
[2022-01-10] MEDS: apixaban 5 mg Tablet PO ×2 (08:38→21:07)
[2022-01-10] MEDS: nicotine 14 mg Patch 1 PATCH TRANSDERMA (11:16)
[2022-01-10] MEDS: phosphorus 250 mg Tablet PO ×2 (11:16→21:08)
[2022-01-10] MEDS: ALPRAZolam 0.5 mg Tablet 0.25 MG PO ×2 (11:22→21:07)
--- NOTE | 2022-01-10 11:22 | PC.NURSE ---
PRN XANAX 0.25 MG GIVEN PO PER PT C/O STATED ANXIETY.
[2022-01-10 12:00] VITALS: BP 108/67; PULSE 99; RESP 18; TEMP 36.8; O2SAT 95
[2022-01-10] MEDS: prednisoLONE 1% Op Susp 5 mL Btl 1 DROP EYE-BOTH (13:34)
[2022-01-10 13:43] VITALS: BP 95/62; PULSE 77; RESP 20; TEMP 36.8; O2SAT 96
--- NOTE | 2022-01-10 15:02 | PC.NURSE ---
Addendum entered by Tala Rendon LPN 01/10/22 16:01: return to unit from court Original Note: off unit for [address]
--- NOTE | 2022-01-10 17:03 | P.NPUPN_ITS ---
Subjective NPU Subjective: Patient presents today excepting the consequences a 21-day hold. He reports it is really tough to be on the MPU because there is a collection of fairly psychotic individuals on the side that he is on. We were able to have a laugh and redirect his thinking to what is he going to do to get things turned around and how he going to focus on his recovery and work with the treatment team to find some facility that would take him. He denies any other issues. Mental Status Exam MSE Comments: This is a slender white male in hospital gown with limited grooming and adequate eye contact.? Patient with nasal cannula in.? No abnormal movement except for psychomotor retardation.? Cooperative with exam in no acute distress.? Speech was more normal rate and volume.? Mood described as it is crazy in here, affect subdued but less irritable.? Thought process organized.? Thought content: Patient denied suicidal or homicidal ideation, there were no delusions reported or noted, he denies any auditory or visual hallucinations.? Attention and concentration were limited and memory was unreliable but none were formally tested.? He is alert and oriented x3.? Insight and judgment are impaired and impulse control is impaired. Vitals/I&O/Wt Last Vital Signs Temp 98.3 F 01/10/22 13:43 Pulse 77 01/10/22 13:43 Resp 20 H 01/10/22 13:43 BP 95/62 01/10/22 13:43 Pulse Ox 96 01/10/22 13:43 Weight last 48 hrs Weight 68.447 kg Physical Exam Urinary Catheter Management: Barba: Cath Placed During This Visit: yes, but has since been removed by the nurse Reason for Continuing Indwelling Catheter: Decision to DC Catheter Urinary Catheter Date of Insertion: 12/25/21 Urinary Catheter Time of Insertion: 12:30 Date Urinary Catheter Removed: 01/02/22 Time Urinary Catheter Discontinued: 11:00 Data NPU : 01/07/22 05:25 01/08/22 05:00 A&P Assessment and plan (1) Refeeding syndrome: Status: Acute (2) C. difficile diarrhea: Status: Acute (3) Respiratory failure with hypoxia and hypercapnia: Status: Acute (4) Altered mental status: Status: Acute (5) Acute hypoxemic respiratory failure: Status: Acute (6) Hypokalemia: Status: Acute (7) Intentional overdose of trazodone: Status: Acute (8) Alcohol intoxication: Status: Acute (9) Suicide attempt: Status: Acute (10) Alcohol use disorder, severe, dependence: Status: Acute (11) HIV (human immunodeficiency virus infection): Status: Acute Qualifiers: HIV symptom status: asymptomatic, with no history of HIV-related illness Qualified Code(s): Z21 - Asymptomatic human immunodeficiency virus [HIV] infection status (12) COPD (chronic obstructive pulmonary disease): Status: Acute (13) Major depressive disorder, recurrent: Status: Chronic Plan This is a 61-year-old white male with a long history of alcohol dependence, HIV, major depression with frequent hospitalizations with ICU stays and inpatient psychiatric treatment who presents as a transfer from the ICU currently on the [facility] unit with a 96-hour hold after conflict with his significant other coupled with heavy drinking reporting as usual that he is no longer suicidal and wants to leave as soon as possible including AGAINST MEDICAL ADVICE 1.? Continue current medication.? 2.? Continue one-to-one due to oxygen hose. 3.? Encourage individual, group and milieu therapy. 4.? Encourage sober living treatment after discharge hopefully an inpatient program.? 5.? 21-day hold granted. Involuntary Hold Information 96 Hour Hold: 96 Hour Involuntary Admission: No Attestations NPU Medical Necessity Statement*: Inpatient hospitalization is medically necessary and the clinically appropriate intervention at this time. We will monitor medication to make changes as indicated. Likely length of stay 4-6 days.? Possibly longer with 21-day hold. 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 difficile diarrhea A04.72 Respiratory failure with hypoxia and hypercapnia J96.91; J96.92 Altered mental status R41.82 Acute hypoxemic respiratory failure J96.01 Hypokalemia E87.6 Intentional overdose of trazodone T43.212A Alcohol intoxication F10.929 Suicide attempt T14.91XA Alcohol use disorder, severe, dependence F10.20 HIV (human immunodeficiency virus infection) Z21 HIV symptom status: asymptomatic, with no history of HIV-related illness COPD (chronic obstructive pulmonary disease) J44.9 Major depressive disorder, recurrent F33.9
[2022-01-10 18:49] VITALS: BP 99/65; PULSE 96; TEMP 36.7
[2022-01-10 20:00] VITALS: BP 99/65; PULSE 96; RESP 20; TEMP 36.7
[2022-01-10] MEDS: mirtazapine 15 mg Tablet PO (21:06)
[2022-01-10] MEDS: trazodone 150 mg Tablet PO (21:07)
[2022-01-10] MEDS: zolpidem 5 mg Tablet PO (21:07)
--- NOTE | 2022-01-10 21:22 | PC.NURSE ---
Patient at nurses station with c/o anxiety and insomnia. Xanax 0.25 mg po and Ambien 5 mg po given for this
[2022-01-11 00:29] VITALS: BP 99/65; PULSE 96; RESP 20; TEMP 36.7
[2022-01-11 06:00] VITALS: PULSE 19
[2022-01-11 08:10] VITALS: PULSE 103; RESP 20; O2SAT 96
--- NOTE | 2022-01-11 08:58 | PC.NURSE ---
PT IN ROOM COMPLETING HYGIENE THIS AM. HAS 4L O2 VIA NC APPLIED ORDERED. SITTER IS AT BEDSIDE. DENIES PAIN. DENIES SI/HI AND AVH AT THIS TIME. SUPPORT VOICED.
[2022-01-11] MEDS: prednisoLONE 1% Op Susp 5 mL Btl 1 DROP EYE-BOTH ×2 (09:27→18:04)
[2022-01-11] MEDS: nicotine 14 mg Patch 1 PATCH TRANSDERMA (09:27)
[2022-01-11] MEDS: multivitamin therapeutic Tablet 1 TAB PO (09:28)
[2022-01-11] MEDS: apixaban 5 mg Tablet PO ×2 (09:28→20:24)
[2022-01-11] MEDS: phosphorus 250 mg Tablet PO ×2 (09:28→20:24)
[2022-01-11] MEDS: metoprolol tartrate 25 mg Tablet PO (09:28)
[2022-01-11] MEDS: folic acid 1 mg Tablet PO (09:28)
[2022-01-11] MEDS: ALPRAZolam 0.5 mg Tablet 0.25 MG PO (09:28)
[2022-01-11 14:00] VITALS: BP 99/67; PULSE 75; RESP 17; TEMP 36.6; O2SAT 96
--- NOTE | 2022-01-11 16:36 | PC.NURSE ---
MEDICATION REFUSAL PT HAS REFUSED VANYCOMYCIN DOSES TIMES 3 THIS SHIFT. EDUCATION PROVIDED FOR THE IMPORTANCE OF TAKING VANCOMYCIN AND COMPLETING ANTIBIOTIC THERAPY. PT STATES, I SHOULD NOT BE ON THAT SHIT AND I'M NOT TAKING IT.
--- NOTE | 2022-01-11 18:11 | W.PM.NPUPNS ---
Subjective NPU Subjective: Patient presents today continuing to have limited insight into how things will change. His focus was on conflict between his mother and his surrounding his taking better care of their place. He continues to report that he has known to [employer] and his because he would want to bring that in to the house. He tried to use the idea that he cannot walk to the liquor store as the reason why to be discharged. We did identify that he in fact was not on a waiting list at a rehab and has not been doing anything towards his recovery. Unfortunately he has an increase in his stools again and so we discussed getting a consult to ensure his C. difficile did not return. Mental Status Exam MSE Comments: This is a slender white male in hospital gown with limited grooming and adequate eye contact.? Patient with nasal cannula in.? No abnormal movement except for psychomotor retardation.? Cooperative with exam in no acute distress.? Speech was more normal rate and volume.? Mood described as I am fine to go home, affect subdued but less irritable.? Thought process organized.? Thought content: Patient denied suicidal or homicidal ideation, there were no delusions reported or noted, he denies any auditory or visual hallucinations.? Attention and concentration were limited and memory was unreliable but none were formally tested.? He is alert and oriented x3.? Insight and judgment are impaired and impulse control is impaired. Vitals/I&O/Wt Last Vital Signs Temp 97.4 F L 01/11/22 21:05 Pulse 80 01/11/22 21:05 Resp 16 01/11/22 21:05 BP 81/50 01/11/22 21:05 Pulse Ox 95 01/11/22 21:05 Physical Exam Urinary Catheter Management: Barba: Cath Placed During This Visit: yes, but has since been removed by the nurse Reason for Continuing Indwelling Catheter: Decision to DC Catheter Urinary Catheter Date of Insertion: 12/25/21 Urinary Catheter Time of Insertion: 12:30 Date Urinary Catheter Removed: 01/02/22 Time Urinary Catheter Discontinued: 11:00 Data NPU : 01/07/22 05:25 01/08/22 05:00 A&P Assessment and plan (1) Refeeding syndrome: Status: Acute (2) C. difficile diarrhea: Status: Acute (3) Respiratory failure with hypoxia and hypercapnia: Status: Acute (4) Altered mental status: Status: Acute (5) Acute hypoxemic respiratory failure: Status: Acute (6) Hypokalemia: Status: Acute (7) Intentional overdose of trazodone: Status: Acute (8) Alcohol intoxication: Status: Acute (9) Suicide attempt: Status: Acute (10) Alcohol use disorder, severe, dependence: Status: Acute (11) HIV (human immunodeficiency virus infection): Status: Acute Qualifiers: HIV symptom status: asymptomatic, with no history of HIV-related illness Qualified Code(s): Z21 - Asymptomatic human immunodeficiency virus [HIV] infection status (12) COPD (chronic obstructive pulmonary disease): Status: Acute (13) Major depressive disorder, recurrent: Status: Chronic Plan This is a 61-year-old white male with a long history of alcohol dependence, HIV, major depression with frequent hospitalizations with ICU stays and inpatient psychiatric treatment who presents as a transfer from the ICU currently on the [facility] unit with a 96-hour hold after conflict with his significant other coupled with heavy drinking reporting as usual that he is no longer suicidal and wants to leave as soon as possible including AGAINST MEDICAL ADVICE 1.? Continue current medication.? 2.? Continue one-to-one due to oxygen hose. 3.? Encourage individual, group and milieu therapy. 4.? Encourage sober living treatment after discharge hopefully an inpatient program.? We will verify what programs are available that might take medically compromised individuals. 5.? 21-day hold granted. 5. Get hospitalist consult to identify whether C. difficile has returned or was not exterminated. Involuntary Hold Information 96 Hour Hold: 96 Hour Involuntary Admission: No Attestations NPU Medical Necessity Statement*: Inpatient hospitalization is medically necessary and the clinically appropriate intervention at this time. We will monitor medication to make changes as indicated. Likely length of stay 4-6 days.? Possibly longer with 21-day hold. Coding Level of Care Code Acute Epic Willow Specialist for [facility] Fwd Diagnoses Refeeding syndrome E87.8 C. difficile diarrhea A04.72 Respiratory failure with hypoxia and hypercapnia J96.91; J96.92 Altered mental status R41.82 Acute hypoxemic respiratory failure J96.01 Hypokalemia E87.6 Intentional overdose of trazodone T43.212A Alcohol intoxication F10.929 Suicide attempt T14.91XA Alcohol use disorder, severe, dependence F10.20 HIV (human immunodeficiency virus infection) Z21 HIV symptom status: asymptomatic, with no history of HIV-related illness COPD (chronic obstructive pulmonary disease) J44.9 Major depressive disorder, recurrent F33.9
[2022-01-11 20:00] VITALS: PULSE 97; RESP 18; O2SAT 97
[2022-01-11] MEDS: mirtazapine 15 mg Tablet PO (20:22)
[2022-01-11] MEDS: trazodone 150 mg Tablet PO (20:23)
[2022-01-11] MEDS: loperamide 2 mg Capsule 4 MG PO (20:25)
[2022-01-11] MEDS: zolpidem 5 mg Tablet PO (20:46)
[2022-01-11 21:05] VITALS: BP 81/50; PULSE 80; RESP 16; TEMP 36.3; O2SAT 95
[2022-01-12 06:00] VITALS: BP 100/65; PULSE 79; RESP 17; TEMP 36.6; O2SAT 94
[2022-01-12 08:00] VITALS: PULSE 102; RESP 18; O2SAT 96
[2022-01-12 10:05] VITALS: O2SAT 96
[2022-01-12] MEDS: nicotine 14 mg Patch 1 PATCH TRANSDERMA (10:28)
[2022-01-12] MEDS: apixaban 5 mg Tablet PO ×2 (10:29→20:31)
[2022-01-12] MEDS: phosphorus 250 mg Tablet PO ×2 (10:29→20:31)
[2022-01-12] MEDS: folic acid 1 mg Tablet PO (10:29)
[2022-01-12] MEDS: ALPRAZolam 0.5 mg Tablet 0.25 MG PO (10:29)
[2022-01-12] MEDS: metoprolol tartrate 25 mg Tablet PO (10:29)
[2022-01-12] MEDS: multivitamin therapeutic Tablet 1 TAB PO (10:29)
[2022-01-12] MEDS: MACITENTAN 10 MG 10 EACH PO (10:37)
--- NOTE | 2022-01-12 12:19 | PC.NURSE ---
progress on home meds getting filled [facility] pharmacy will bring up Dovato 50-300mg as meds to beds, so we can administer to pt while on the unit. working on other home meds, having to order from another supplier..... may take a few business days to get in.
[2022-01-12 14:00] VITALS: BP 102/66; PULSE 79; RESP 18; O2SAT 95
--- NOTE | 2022-01-12 15:37 | P.NPUPN_ITS ---
Subjective NPU Subjective: Patient presents today reporting that he is feeling better. We had talked about the challenges in his life including his drinking, his partners drinking and his inability thus far to discontinue his drinking altogether. He has been to rehabs in the past and we have talked about the importance of considering a longer term intervention to hopefully produce a longer and more beneficial outcome. He reports that his mother is working on a possible rehab [id number]. We discussed wanting to make sure that we had something in place to aim for before discharge. Mental Status Exam MSE Comments: This is a slender white male in hospital gown with adequate grooming and eye contact.? Patient with nasal cannula in.? No abnormal movement except for resolving mild psychomotor retardation.? Cooperative with exam in no acute distress.? Speech was more normal rate and volume.? Mood described as I am feeling better, affect less subdued or irritable.? Thought process organized.? Thought content: Patient denied suicidal or homicidal ideation, there were no delusions reported or noted, he denies any auditory or visual hallucinations.? Attention and concentration were limited and memory was unreliable but none were formally tested.? He is alert and oriented x3.? Insight and judgment are impaired, but improving and impulse control is impaired. Vitals/I&O/Wt Last Vital Signs Temp 98 F 01/12/22 06:00 Pulse 79 01/12/22 14:00 Resp 18 01/12/22 14:00 BP 102/66 01/12/22 14:00 Pulse Ox 95 01/12/22 14:00 Physical Exam Urinary Catheter Management: Barba: Cath Placed During This Visit: yes, but has since been removed by the nurse Reason for Continuing Indwelling Catheter: Decision to DC Catheter Urinary Catheter Date of Insertion: 12/25/21 Urinary Catheter Time of Insertion: 12:30 Date Urinary Catheter Removed: 01/02/22 Time Urinary Catheter Discontinued: 11:00 Data NPU : 01/07/22 05:25 01/08/22 05:00 A&P Assessment and plan (1) Refeeding syndrome: Status: Acute (2) C. difficile diarrhea: Status: Acute (3) Respiratory failure with hypoxia and hypercapnia: Status: Acute (4) Altered mental status: Status: Acute (5) Acute hypoxemic respiratory failure: Status: Acute (6) Hypokalemia: Status: Acute (7) Intentional overdose of trazodone: Status: Acute (8) Alcohol intoxication: Status: Acute (9) Suicide attempt: Status: Acute (10) Alcohol use disorder, severe, dependence: Status: Acute (11) HIV (human immunodeficiency virus infection): Status: Acute Qualifiers: HIV symptom status: asymptomatic, with no history of HIV-related illness Qualified Code(s): Z21 - Asymptomatic human immunodeficiency virus [HIV] infec tion status (12) COPD (chronic obstructive pulmonary disease): Status: Acute (13) Major depressive disorder, recurrent: Status: Chronic Plan This is a 61-year-old white male with a long history of alcohol dependence, HIV, major depression with frequent hospitalizations with ICU stays and inpatient psychiatric treatment who presents as a transfer from the ICU currently on the Medr unit with a 96-hour hold after conflict with his significant other coupled with heavy drinking reporting as usual that he is no longer suicidal and wants to leave as soon as possible including AGAINST MEDICAL ADVICE 1.? Continue current medication.? 2.? Continue one-to-one due to oxygen hose. 3.? Encourage individual, group and milieu therapy. 4.? Encourage sober living treatment after discharge hopefully an inpatient program.? We will verify what programs are available that might take medically compromised individuals. 5.? 21-day hold granted. 5.? Get hospitalist consult to identify whether C. difficile has returned or was not exterminated. Will await response. Involuntary Hold Information 96 Hour Hold: 96 Hour Involuntary Admission: No Attestations NPU Medical Necessity Statement*: Inpatient hospitalization is medically necessary and the clinically appropriate intervention at this time. We will monitor medication to make changes as indicated. Likely length of stay 3-5 days.? Coding Level of Care Code Acute Professional Athlete for g Fwd Diagnoses Refeeding syndrome E87.8 C. difficile diarrhea A04.72 Respiratory failure with hypoxia and hypercapnia J96.91; J96.92 Altered mental status R41.82 Acute hypoxemic respiratory failure J96.01 Hypokalemia E87.6 Intentional overdose of trazodone T43.212A Alcohol intoxication F10.929 Suicide attempt T14.91XA Alcohol use disorder, severe, dependence F10.20 HIV (human immunodeficiency virus infection) Z21 HIV symptom status: asymptomatic, with no history of HIV-related illness COPD (chronic obstructive pulmonary disease) J44.9 Major depressive disorder, recurrent F33.9
[2022-01-12] MEDS: prednisoLONE 1% Op Susp 5 mL Btl 1 DROP EYE-BOTH (18:00)
[2022-01-12 20:17] VITALS: BP 101/65; PULSE 59; RESP 17; TEMP 36.8; O2SAT 97
[2022-01-12] MEDS: trazodone 150 mg Tablet PO (20:31)
[2022-01-12] MEDS: mirtazapine 15 mg Tablet PO (20:31)
[2022-01-12] MEDS: zolpidem 5 mg Tablet PO (20:31)
[2022-01-13 06:00] VITALS: BP 97/60; PULSE 75; RESP 16; TEMP 36.8; O2SAT 96
[2022-01-13] MEDS: nicotine 14 mg Patch 1 PATCH TRANSDERMA (09:29)
[2022-01-13] MEDS: multivitamin therapeutic Tablet 1 TAB PO (09:29)
[2022-01-13] MEDS: apixaban 5 mg Tablet PO ×2 (09:29→21:10)
[2022-01-13] MEDS: metoprolol tartrate 25 mg Tablet PO (09:29)
[2022-01-13] MEDS: ALPRAZolam 0.5 mg Tablet 0.25 MG PO (09:29)
[2022-01-13] MEDS: folic acid 1 mg Tablet PO (09:29)
[2022-01-13] MEDS: phosphorus 250 mg Tablet PO ×2 (11:16→20:42)
[2022-01-13] MEDS: prednisoLONE 1% Op Susp 5 mL Btl 1 DROP EYE-BOTH (11:16)
--- NOTE | 2022-01-13 13:54 | P.NPUPN_ITS ---
Subjective NPU Subjective: Patient presents today reporting that he is doing okay. He about the plan for rehabs. Specifically making sure that they were rehabs that could manage medical comorbidities. She reported that Flakito is lying in relation to her doing that. She reports that she is done that many times before but that he had not advised her or suggested that he was going to a rehab willing to go. He never specifically refuted his mother's statement. He reported that he was very open to going to rehab but worried that they would manage his COPD issues. He reports that he is working with the medical team on his diarrhea and that that has decreased. Mental Status Exam MSE Comments: This is a slender white male in hospital gown with adequate grooming and eye contact.? Patient with nasal cannula in.? No abnormal movement except for resolving mild psychomotor retardation.? Cooperative with exam in no acute distress.? Speech was more normal rate and volume.? Mood described as better, affect congruent.? Thought process organized.? Thought content: Patient denied suicidal or homicidal ideation, there were no delusions reported or noted, he denies any auditory or visual hallucinations.? Attention and con centration were limited and memory was unreliable but none were formally tested.? He is alert and oriented x3.? Insight and judgment are impaired, but improving and impulse control is impaired. Vitals/I&O/Wt Last Vital Signs Temp 98.2 F 01/13/22 06:00 Pulse 75 01/13/22 06:00 Resp 16 01/13/22 06:00 BP 97/60 01/13/22 06:00 Pulse Ox 96 01/13/22 06:00 Physical Exam Urinary Catheter Management: Barba: Cath Placed During This Visit: yes, but has since been removed by the nurse Reason for Continuing Indwelling Catheter: Decision to DC Catheter Urinary Catheter Date of Insertion: 12/25/21 Urinary Catheter Time of Insertion: 12:30 Date Urinary Catheter Removed: 01/02/22 Time Urinary Catheter Discontinued: 11:00 Data NPU : 01/07/22 05:25 01/08/22 05:00 A&P Assessment and plan (1) Refeeding syndrome: Status: Acute (2) C. difficile diarrhea: Status: Acute (3) Respiratory failure with hypoxia and hypercapnia: Status: Acute (4) Altered mental status: Status: Acute (5) Acute hypoxemic respiratory failure: Status: Acute (6) Hypokalemia: Status: Acute (7) Intentional overdose of trazodone: Status: Acute (8) Alcohol intoxication: Status: Acute (9) Suicide attempt: Status: Acute (10) Alcohol use disorder, severe, dependence: Status: Acute (11) HIV (human immunodeficiency virus infection): Status: Acute Qualifiers: HIV symptom status: asymptomatic, with no history of HIV-related illness Qualified Code(s): Z21 - Asymptomatic human immunodeficiency virus [HIV] infection status (12) COPD (chronic obstructive pulmonary disease): Status: Acute (13) Major depressive disorder, recurrent: Status: Chronic Plan This is a 61-year-old white male with a long history of alcohol dependence, HIV, major depression with frequent hospitalizations with ICU stays and inpatient psychiatric treatment who presents as a transfer from the ICU currently on the MedSurg unit with a 96-hour hold after conflict with his significant other coupled with heavy drinking reporting as usual that he is no longer suicidal and wants to leave as soon as possible including AGAINST MEDICAL ADVICE 1.? Continue current medication.? 2.? Continue one-to-one due to oxygen hose. 3.? Encourage individual, group and milieu therapy. 4.? Encourage sober living treatment after discharge hopefully an inpatient program.? We will verify what programs are available that might take medically compromised individuals. 5.? 21-day hold granted. Involuntary Hold Information 96 Hour Hold: 96 Hour Involuntary Admission: No Attestations NPU Medical Necessity Statement*: Inpatient hospitalization is medically necessary and the clinically appropriate intervention at this time. We will monitor medication to make changes as indicated. Likely length of stay 2-4 days.? Coding Level of Care Code Acute Manager Transmission for [facility] Fwd Diagnoses Refeeding syndrome E87.8 C. difficile diarrhea A04.72 Respiratory failure with hypoxia and hypercapnia J96.91; J96.92 Altered mental status R41.82 Acute hypoxemic respiratory failure J96.01 Hypokalemia E87.6 Intentional overdose of trazodone T43.212A Alcohol intoxication F10.929 Suicide attempt T14.91XA Alcohol use disorder, severe, dependence F10.20 HIV (human immunodeficiency virus infection) Z21 HIV symptom status: asymptomatic, with no history of HIV-related illness COPD (chronic obstructive pulmonary disease) J44.9 Major depressive disorder, recurrent F33.9
[2022-01-13 14:00] VITALS: BP 93/61; PULSE 78; RESP 16; TEMP 36.6; O2SAT 95
[2022-01-13 16:24] VITALS: PULSE 79; RESP 18; O2SAT 95
[2022-01-13 20:14] VITALS: BP 95/61; PULSE 81; RESP 18; O2SAT 96
[2022-01-13] MEDS: mirtazapine 15 mg Tablet PO (20:42)
[2022-01-13] MEDS: zolpidem 5 mg Tablet PO (20:42)
[2022-01-13] MEDS: loperamide 2 mg Capsule 4 MG PO (20:42)
[2022-01-13] MEDS: trazodone 150 mg Tablet PO (20:42)
[2022-01-14 06:00] VITALS: BP 106/72; PULSE 86; RESP 17; O2SAT 96
[2022-01-14 08:00] VITALS: PULSE 102; RESP 17; O2SAT 92
[2022-01-14] MEDS: metoprolol tartrate 25 mg Tablet PO ×2 (09:43→20:12)
[2022-01-14] MEDS: folic acid 1 mg Tablet PO (09:43)
[2022-01-14] MEDS: apixaban 5 mg Tablet PO ×2 (09:43→20:12)
[2022-01-14] MEDS: multivitamin therapeutic Tablet 1 TAB PO (09:43)
[2022-01-14] MEDS: ALPRAZolam 0.5 mg Tablet 0.25 MG PO ×2 (09:43→18:32)
[2022-01-14] MEDS: nicotine 14 mg Patch 1 PATCH TRANSDERMA (09:43)
[2022-01-14] MEDS: prednisoLONE 1% Op Susp 5 mL Btl 1 DROP EYE-BOTH (09:43)
[2022-01-14] MEDS: MACITENTAN 10 MG 10 EACH PO (09:48)
[2022-01-14] MEDS: phosphorus 250 mg Tablet PO ×2 (09:49→20:12)
[2022-01-14] MEDS: nicotine 4 mg lozenge MUCOUS MEM (10:07)
[2022-01-14 14:00] VITALS: BP 97/67; PULSE 87; RESP 16; TEMP 36.6; O2SAT 95
--- NOTE | 2022-01-14 14:44 | P.NPUPN_ITS ---
Subjective NPU Subjective: Patient presents today reporting that he is continuing to feel better and that he would be fine to go home. He has continued to endorse not wanting to drink. We have agreed to work on getting him placement at the beginning of the week. He was seen in the group room while he was watching a jenny sotelo talking about some of his favorite comedies that he has seen and continuing to be in positive spirits. Mental Status Exam MSE Comments: This is a slender white male in hospital gown with adequate makenna oming and eye contact.? Patient with nasal cannula in.? No abnormal movement except for resolving mild psychomotor retardation.? Cooperative with exam in no acute distress.? Speech was more normal rate and volume.? Mood described as better, affect congruent.? Thought process organized.? Thought content: Patient denied suicidal or homicidal ideation, there were no delusions reported or noted, he denies any auditory or visual hallucinations.? Attention and concentration were limited and memory was unreliable but none were formally tested.? He is alert and oriented x3.? Insight and judgment are impaired, but improving and impulse control is impaired. Vitals/I&O/Wt Last Vital Signs Temp 98 F 01/14/22 14:00 Pulse 87 01/14/22 14:00 Resp 16 01/14/22 14:00 BP 97/67 01/14/22 14:00 Pulse Ox 95 01/14/22 14:00 Physical Exam Urinary Catheter Management: Barba: Cath Placed During This Visit: yes, but has since been removed by the nurse Reason for Continuing Indwelling Catheter: Decision to DC Catheter Urinary Catheter Date of Insertion: 12/25/21 Urinary Catheter Time of Insertion: 12:30 Date Urinary Catheter Removed: 01/02/22 Time Urinary Catheter Discontinued: 11:00 Data NPU : 01/07/22 05:25 01/08/22 05:00 A&P Assessment and plan (1) Refeeding syndrome: Status: Acute (2) C. difficile diarrhea: Status: Acute (3) Respiratory failure with hypoxia and hypercapnia: Status: Acute (4) Altered mental status: Status: Acute (5) Acute hypoxemic respiratory failure: Status: Acute (6) Intentional overdose of trazodone: Status: Acute (7) Alcohol intoxication: Status: Acute (8) Suicide attempt: Status: Acute (9) Alcohol use disorder, severe, dependence: Status: Acute (10) HIV (human immunodeficiency virus infection): Status: Acute Qualifiers: HIV symptom status: asymptomatic, with no history of HIV-related illness Qualified Code(s): Z21 - Asymptomatic human immunodeficiency virus [HIV] infection status (11) COPD (chronic obstructive pulmonary disease): Status: Acute (12) Major depressive disorder, recurrent: Status: Chronic Plan This is a 61-year-old white male with a long history of alcohol dependence, HIV, major depression with frequent hospitalizations with ICU stays and inpatient psychiatric treatment who presents as a transfer from the ICU currently on the MedSurg unit with a 96-hour hold after conflict with his significant other coupled with heavy drinking reporting as usual that he is no longer suicidal and wants to leave as soon as possible including AGAINST MEDICAL ADVICE 1.? Continue current medication.? 2.? Continue one-to-one due to oxygen hose. 3.? Encourage individual, group and milieu therapy. 4.? Encourage sober living treatment after discharge hopefully an inpatient program.? We will verify what programs are available that might take medically compromised individuals. 5.? 21-day hold granted. Involuntary Hold Information 96 Hour Hold: 96 Hour Involuntary Admission: No Attestations NPU Medical Necessity Statement*: Inpatient hospitalization is medically necessary and the clinically appropriate intervention at this time. We will monitor medication to make changes as indicated. Likely length of stay 2-4 days.? Coding Level of Care Code Acute Refrigeration Plant Operator for g Fwd Diagnoses Refeeding syndrome E87.8 C. difficile diarrhea A04.72 Respiratory failure with hypoxia and hypercapnia J96.91; J96.92 Altered mental status R41.82 Acute hypoxemic respiratory failure J96.01 Intentional overdose of trazodone T43.212A Alcohol intoxication F10.929 Suicide attempt T14.91XA Alcohol use disorder, severe, dependence F10.20 HIV (human immunodeficiency virus infection) Z21 HIV symptom status: asymptomatic, with no history of HIV-related illness COPD (chronic obstructive pulmonary disease) J44.9 Major depressive disorder, recurrent F33.9
[2022-01-14 20:11] VITALS: BP 101/68; PULSE 78; RESP 16; TEMP 36.8; O2SAT 93
[2022-01-14] MEDS: trazodone 150 mg Tablet PO (20:12)
[2022-01-14] MEDS: mirtazapine 15 mg Tablet PO (20:12)
[2022-01-14] MEDS: zolpidem 5 mg Tablet PO (20:16)
[2022-01-15 06:00] VITALS: BP 104/72; PULSE 84; RESP 20; TEMP 36.5; O2SAT 96
[2022-01-15] MEDS: folic acid 1 mg Tablet PO (08:02)
[2022-01-15] MEDS: apixaban 5 mg Tablet PO (08:02)
[2022-01-15] MEDS: multivitamin therapeutic Tablet 1 TAB PO (08:02)
[2022-01-15] MEDS: metoprolol tartrate 25 mg Tablet PO (08:02)
[2022-01-15] MEDS: nicotine 4 mg lozenge MUCOUS MEM ×2 (08:02→11:19)
[2022-01-15] MEDS: phosphorus 250 mg Tablet PO ×2 (08:03→21:53)
[2022-01-15] MEDS: prednisoLONE 1% Op Susp 5 mL Btl 1 DROP EYE-BOTH ×2 (08:03→18:04)
[2022-01-15] MEDS: MACITENTAN 10 MG 10 EACH PO (08:07)
[2022-01-15] MEDS: loperamide 2 mg Capsule 4 MG PO (08:08)
--- NOTE | 2022-01-15 08:36 | P.NPUPN_ITS ---
Subjective NPU Subjective: Flakito presents today denying any changes. He reports a willingness to go to a rehab but reports he fears that he has oxygen need will be a blocking factor. We agreed that we would get a list of numbers from the treatment team tomorrow and both he and they can make calls and determine what options exist out there. Otherwise we talked about getting him on a list that can be verified and monitored and hopefully he will be able to get into someplace in the next month or 2. He is struggling a little with the psychotic patients on the unit. Mental Status Exam MSE Comments: This is a slender white male in hospital gown with adequate grooming and eye contact.? Patient with nasal cannula in.? No abnormal movement except for resolving mild psychomotor retardation.? Cooperative with exam in no acute distress.? Speech was more normal rate and volume.? Mood described as okay, affect congruent.? Thought process organized.? Thought content: Patient denied suicidal or homicidal ideation, there were no delusions reported or noted, he denies any auditory or visual hallucinations.? Attention and c oncentration were limited and memory was unreliable but none were formally tested.? He is alert and oriented x3.? Insight and judgment are impaired, but improving and impulse control is impaired. Vitals/I&O/Wt Last Vital Signs Temp 97.7 F 01/15/22 06:00 Pulse 84 01/15/22 06:00 Resp 20 H 01/15/22 06:00 BP 104/72 01/15/22 06:00 Pulse Ox 96 01/15/22 06:00 Weight last 48 hrs Weight 75.659 kg Physical Exam Urinary Catheter Management: Barba: Cath Placed During This Visit: yes, but has since been removed by the nurse Reason for Continuing Indwelling Catheter: Decision to DC Catheter Urinary Catheter Date of Insertion: 12/25/21 Urinary Catheter Time of Insertion: 12:30 Date Urinary Catheter Removed: 01/02/22 Time Urinary Catheter Discontinued: 11:00 Data NPU : 01/07/22 05:25 01/08/22 05:00 A&P Assessment and plan (1) Refeeding syndrome: Status: Acute (2) C. difficile diarrhea: Status: Acute (3) Respiratory failure with hypoxia and hypercapnia: Status: Acute (4) Altered mental status: Status: Acute (5) Acute hypoxemic respiratory failure: Status: Acute (6) Hypokalemia: Status: Acute (7) Intentional overdose of trazodone: Status: Acute (8) Alcohol intoxication: Status: Acute (9) Suicide attempt: Status: Acute (10) Alcohol use disorder, severe, dependence: Status: Acute (11) HIV (human immunodeficiency virus infection): Status: Acute Qualifiers: HIV symptom status: asymptomatic, with no history of HIV-related illness Qualified Code(s): Z21 - Asymptomatic human immunodeficiency virus [HIV] infection status (12) COPD (chronic obstructive pulmonary disease): Status: Acute (13) Major depressive disorder, recurrent: Status: Chronic Plan This is a 61-year-old white male with a long history of alcohol dependence, HIV, major depression with frequent hospitalizations with ICU stays and inpatient psychiatric treatment who presents as a transfer from the ICU currently on the MedSurg unit with a 96-hour hold after conflict with his significant other coupled with heavy drinking reporting as usual that he is no longer suicidal and wants to leave as soon as possible including AGAINST MEDICAL ADVICE 1.? Continue current medication.? 2.? Continue one-to-one due to oxygen hose. 3.? Encourage individual, group and milieu therapy. 4.? Encourage sober living treatment after discharge hopefully an inpatient program.? We will verify what programs are available that might take medically compromised individuals. 5.? 21-day hold granted. Involuntary Hold Information 96 Hour Hold: 96 Hour Involuntary Admission: No Attestations NPU Medical Necessity Statement*: Inpatient hospitalization is medically necessary and the clinically appropriate intervention at this time. We will monitor medication to make changes as indicated. Likely length of stay 1-3 days.? Coding Level of Care Code Acute Lead Sales Consultant for [facility] Fwd Diagnoses Refeeding syndrome E87.8 C. difficile diarrhea A04.72 Respiratory failure with hypoxia and hypercapnia J96.91; J96.92 Altered mental status R41.82 Acute hypoxemic respiratory failure J96.01 Hypokalemia E87.6 Intentional overdose of trazodone T43.212A Alcohol intoxication F10.929 Suicide attempt T14.91XA Alcohol use disorder, severe, dependence F10.20 HIV (human immunodeficiency virus infection) Z21 HIV symptom status: asymptomatic, with no history of HIV-related illness COPD (chronic obstructive pulmonary disease) J44.9 Major depressive disorder, recurrent F33.9
[2022-01-15 09:51] VITALS: PULSE 87; RESP 18; O2SAT 94
[2022-01-15] MEDS: ALPRAZolam 0.5 mg Tablet 0.25 MG PO (11:19)
[2022-01-15 14:00] VITALS: BP 107/69; PULSE 87; RESP 20; TEMP 36.4; O2SAT 91
[2022-01-15] MEDS: nicotine 14 mg Patch 1 PATCH TRANSDERMA (16:40)
[2022-01-15] MEDS: zolpidem 5 mg Tablet PO (21:53)
[2022-01-15] MEDS: mirtazapine 15 mg Tablet PO (21:54)
[2022-01-15] MEDS: trazodone 150 mg Tablet PO (21:54)
[2022-01-15 22:00] VITALS: BP 98/66; PULSE 88; RESP 20; TEMP 36.7; O2SAT 94
[2022-01-16 05:53] VITALS: BP 98/58; PULSE 74; RESP 17; TEMP 36.6; O2SAT 96
[2022-01-16 09:19] VITALS: PULSE 104; RESP 17; O2SAT 96
[2022-01-16] MEDS: nicotine 14 mg Patch 1 PATCH TRANSDERMA (10:02)
[2022-01-16] MEDS: multivitamin therapeutic Tablet 1 TAB PO (10:04)
[2022-01-16] MEDS: phosphorus 250 mg Tablet PO ×2 (10:04→20:51)
[2022-01-16] MEDS: folic acid 1 mg Tablet PO (10:05)
[2022-01-16] MEDS: apixaban 5 mg Tablet PO ×2 (10:05→20:51)
[2022-01-16] MEDS: metoprolol tartrate 25 mg Tablet PO (10:08)
[2022-01-16 10:09] VITALS: BP 97/59; PULSE 100
[2022-01-16] MEDS: prednisoLONE 1% Op Susp 5 mL Btl 1 DROP EYE-BOTH ×2 (10:18→18:31)
[2022-01-16] MEDS: MACITENTAN 10 MG 10 EACH PO (10:37)
--- NOTE | 2022-01-16 10:40 | PC.NURSE ---
home medication Mytesi & Sildenafil not able to be given at this time, unavailable from [facility] hospital pharmacy, unable to be filled through [facility] pharmacy since patient has had these two meds filled prior with [facility].....asked patient if he had these meds at home & if patient could possibly ask his mother (whom often visits) to bring home medications in so they could be administered as ordered....pt replied no I'm not going to ask her to do that, I should be getting out of here either today or tomorrow staff again expressed the importance of taking the medications, asked patient again if he would reconsider calling/asking his mother to bring in the medications from home. pt replied yeah maybe but didn't get up from his room at this time. cont to be 1:1 with sitter r/t oxygen tubing.
[2022-01-16 14:00] VITALS: BP 113/84; PULSE 87; RESP 17; TEMP 36.9; O2SAT 92
[2022-01-16 18:05] LABS: Glucose Point of Care 102 mg/dL (70-110)
--- NOTE | 2022-01-16 18:50 | W.PM.NPUPNS ---
Subjective NPU Subjective: Flakito 61 year old white male with alcohol dependence and MDD, currently reporting feeling more agitated about being inpatient today, reporting that he is normally quieter but reports being easily annoyed by others in the milieu. He reports no active suicidal ideation, he reports minimal cravings for alcohol despite his extended period of alcohol use. Patient reported good motivation to consider a placement with a rehab facility today. He denies suicidal or homicidal ideation. He reports adequate sleep and energy. Patient was agreeable to trial of Naltrexone oral prior to consideration of Vivitrol. Mental Status Exam MSE Comments: This is a slender white male in hospital gown with adequate grooming and eye contact.? Patient with nasal cannula in.? No abnormal movement except for resolving mild psychomotor retardation.? Cooperative with exam in no acute distress.? Speech was more normal rate and volume.? Mood described as a little frustrated, affect congruent.? Thought process organized.? Thought content: Patient denied suicidal or homicidal ideation, there were no delusions reported or noted, he denies any auditory or visual hallucinations.? Attention and concentration were limited and memory was unreliable but none were formally tested.? He is alert and oriented x3.? Insight and judgment are impaired, but improving and impulse control is impaired. Vitals/I&O/Wt Last Vital Signs Temp 98.1 F 01/16/22 21:35 Pulse 97 01/16/22 21:35 Resp 18 01/16/22 21:35 BP 97/67 01/16/22 21:35 Pulse Ox 95 01/16/22 21:35 Weight last 48 hrs Weight 75.659 kg Physical Exam Urinary Catheter Management: Barba: Cath Placed During This Visit: yes, but has since been removed by the nurse Reason for Continuing Indwelling Catheter: Decision to DC Catheter Urinary Catheter Date of Insertion: 12/25/21 Urinary Catheter Time of Insertion: 12:30 Date Urinary Catheter Removed: 01/02/22 Time Urinary Catheter Discontinued: 11:00 Data NPU : 01/07/22 05:25 01/08/22 05:00 A&P Assessment and plan (1) Refeeding syndrome: Status: Acute (2) C. difficile diarrhea: Status: Acute (3) Respiratory failure with hypoxia and hypercapnia: Status: Acute (4) Altered mental status: Status: Acute (5) Acute hypoxemic respiratory failure: Status: Acute (6) Intentional overdose of trazodone: Status: Acute (7) Alcohol intoxication: Status: Acute (8) Suicide attempt: Status: Acute (9) Alcohol use disorder, severe, dependence: Status: Acute (10) HIV (human immunodeficiency virus infection): Status: Acute Qualifiers: HIV symptom status: asymptomatic, with no history of HIV-related illness Qualified Code(s): Z21 - Asymptomatic human immunodeficiency virus [HIV] infection status (11) COPD (chronic obstructive pulmonary disease): Status: Acute (12) Major depressive disorder, recurrent: Status: Chronic Plan This is a 61-year-old white male with a long history of alcohol dependence, HIV, major depression with frequent hospitalizations with ICU stays and inpatient psychiatric treatment who presents as a transfer from the ICU currently on the MedSur unit with a 96-hour hold after conflict with his significant other coupled with heavy drinking reporting as usual that he is no longer suicidal and wants to leave as soon as possible including AGAINST MEDICAL ADVICE 1.? Continue current medication.? Start naltrexone 50 mg p.o. daily and hopefully move to Vivitrol injectable. 2.? Continue one-to-one due to oxygen hose. 3.? Encourage individual, group and milieu therapy. 4.? Encourage sober living treatment after discharge hopefully an inpatient program.? We will verify what programs are available that might take medically compromised individuals. 5.? 21-day hold granted. 6. Likely discharge in the morning. Involuntary Hold Information 96 Hour Hold: 96 Hour Involuntary Admission: No Attestations NPU Medical Necessity Statement*: Inpatient hospitalization is medically necessary and the clinically appropriate intervention at this time. We will monitor medication to make changes as indicated. Likely length of stay 1-2 days.? Coding Level of Care Code Acute Grain Cleaner And Transfer Operator for g Fwd Diagnoses Refeeding syndrome E87.8 C. difficile diarrhea A04.72 Respiratory failure with hypoxia and hypercapnia J96.91; J96.92 Altered mental status R41.82 Acute hypoxemic respiratory failure J96.01 Intentional overdose of trazodone T43.212A Alcohol intoxication F10.929 Suicide attempt T14.91XA Alcohol use disorder, severe, dependence F10.20 HIV (human immunodeficiency virus infection) Z21 HIV symptom status: asymptomatic, with no history of HIV-related illness COPD (chronic obstructive pulmonary disease) J44.9 Major depressive disorder, recurrent F33.9
[2022-01-16] MEDS: mirtazapine 15 mg Tablet PO (20:51)
[2022-01-16] MEDS: zolpidem 5 mg Tablet PO (20:52)
[2022-01-16] MEDS: trazodone 150 mg Tablet PO (20:52)
[2022-01-16 21:07] VITALS: PULSE 87; RESP 16; O2SAT 93
[2022-01-16 21:35] VITALS: BP 97/67; PULSE 97; RESP 18; TEMP 36.7; O2SAT 95
[2022-01-17 06:00] VITALS: BP 106/71; PULSE 98; RESP 16; TEMP 36.6; O2SAT 93
[2022-01-17] MEDS: nicotine 14 mg Patch 1 PATCH TRANSDERMA (08:21)
[2022-01-17] MEDS: ALPRAZolam 0.5 mg Tablet 0.25 MG PO (08:24)
[2022-01-17] MEDS: MACITENTAN 10 MG 10 EACH PO (08:25)
[2022-01-17 08:26] VITALS: BP 114/76; PULSE 118
[2022-01-17] MEDS: apixaban 5 mg Tablet PO (08:26)
[2022-01-17] MEDS: phosphorus 250 mg Tablet PO (08:26)
[2022-01-17] MEDS: naltrexone hcl 50 mg Tablet PO (08:26)
[2022-01-17] MEDS: folic acid 1 mg Tablet PO (08:26)
[2022-01-17] MEDS: multivitamin therapeutic Tablet 1 TAB PO (08:26)
[2022-01-17] MEDS: metoprolol tartrate 25 mg Tablet PO (08:26)
--- NOTE | 2022-01-17 08:33 | PC.NURSE ---
PRN XANAX 0.25 MG GIVEN PO PER PT C/O ANXIETY
[2022-01-17 09:34] VITALS: PULSE 91; RESP 16; O2SAT 96
--- NOTE | 2022-01-17 13:51 | P.NPUDS_ITS ---
Diagnoses at Discharge Discharge Diagnosis (1) Refeeding syndrome: Status: Acute (2) C. difficile diarrhea: Status: Acute (3) Respiratory failure with hypoxia and hypercapnia: Status: Acute (4) Altered mental status: Status: Acute (5) Acute hypoxemic respiratory failure: Status: Acute (6) Intentional overdose of trazodone: Status: Acute (7) Alcohol intoxication: Status: Acute (8) Suicide attempt: Status: Acute (9) Alcohol use disorder, severe, dependence: Status: Acute (10) HIV (human immunodeficiency virus infection): Status: Acute Qualifiers: HIV symptom status: asymptomatic, with no history of HIV-related illness Qualified Code(s): Z21 - Asymptomatic human immunodeficiency virus [HIV] infection status (11) COPD (chronic obstructive pulmonary disease): Status: Acute Permanent problem details: Severe COPD (12) Major depressive disorder, recurrent: Status: Chronic Reason for Visit Reason for Visit: AMS Brief History: History of Present Illness Flakito Almanzar is a 61 year old male who presented to the emergency department with the following report: Chief complaint: Psychiatric Symptoms Stated complaint: AMS Time Seen by Provider: 12/25/21 11:30 History of Present Illness:?? Patient is a 61-year-old male with history of chronic alcohol dependence, COPD, atrial fibrillation depression who presents the emergency room with concerns for altered mental status.? Patient told EMS that he had an abnormal ingestion of trazodone.? Since then, patient has become confused and altered.? Patient is intermittent somnolent and confused and unable to follow commands at this time.? Patient reports feeling suicidal earlier today.? On arrival, patient was noted to be satting 82% on 6 L of oxygen. Onset: unknown Duration:ongoing Location:home Severity:severe He was admitted to the ICU, intubated and treated for his presentation by the hospitalist.? Ultimately he was extubated and transferred to [facility] for continued treatment of his other medical ailments while keeping him safe from the psychiatric concerns.? He ultimately additionally was diagnosed with C. difficile and is getting the antibiotics but still having 6 episodes of diarrhea at least a day and is in contact isolation due to this concern.? He presents today reporting that his 96-hour hold will be up today and he plans to sign out AMA.? He is known to this report writer from multiple past hospitalizations and presents most likely did not know situations recently having had we will significant overdoses but having little to no insight into the dangerousness of his situation.? This hospitalization he presented with a blood alcohol of 531.? We had a lengthy discussion about this being a toxic level of alcohol ingestion that ended up itself could lead to and he spent much of the time of the interview promising that he would not drink again.? We discussed the lack of weight that he will probably not to drink has after 3 years of caring for him and this escalating self destroyed behavior.? All he can muster is that he needs to go home because he has a dog and he has a .? We discussed the danger of his C. difficile the significant infectious disease concerns of him leaving the building, spreading it to others as well as the health medications were held given his other comorbidities and all he could muster was I need to go home.? We discussed that it was completely unsafe for him to do that between a suicide attempt, discontinue drinking and his lack of insight into his health situation that he would review the 96-hour hold paperwork to make sure it was managed appropriately and would initiate a 21-day hold if necessary but that he would not be going home. Hospital Course Hospital Course During the hospitalization, patient had routine laboratory studies which were within normal limits except for few outliers. Additionally there was a general medical evaluation which was also within normal limits and revealed no new acute processes. He was originally resistant to considering treatment for alcohol dependence and minimized the potential lethal consequences of his medical conditions. He originally had spent several days on the he initially presented to the emergency department with a blood alcohol 531 and reporting overdose on trazodone. He was admitted to the hospital in the ICU initially intubated but then successfully extubated and then he was stepdown to the MedSurg unit. MedSurg unit it was determined that he had C. difficile and he was placed on a 96 hour hold which eventually was converted legally to a 21-day hold was requested as he was trying to leave AGAINST MEDICAL ADVICE with the C. difficile active and without any psychiatric interventions. Just prior to the 21-day hold he was transferred to the neuropsychiatric unit where he slowly acclimated to the individual, group and milieu therapies provided on the unit he started to gain some improved insight into his situation and was more open to working with the treatment team on interventions and aftercare including being signed up for inpatient rehab at [facility] He also To be started with a goal of differentiated at his appointment with his primary care doctor which was scheduled for February 06, 2022. The ongoing medical evaluation on the neuropsychiatric unit and was able to contract for safety outside the hospital prior to discharge. Benita ayala put him on their waiting list and he endorsed a plan to follow-up with him after when a bed would be available. Discharge Summary: At the time of discharge, he denied psychosis or lethality. Mood and anxiety were well managed. Patient endorsed a plan to avoid all drugs of abuse and follow-up with the aftercare recommendations of the treatment team. Patient was evaluated and deemed to be absent credible lethality, and had achieved the maximum benefit from an inpatient hospitalization, so was discharged. Involuntary Hold Information 96 Hour Hold: 96 Hour Involuntary Admission: No Mental Status Exam MSE Comments: This is a slender white male in hospital gown with adequate grooming and eye contact.? Patient with nasal cannula in.? No abnormal movement except for resolving mild psychomotor retardation.? Cooperative with exam in no acute distress.? Speech was more normal rate and volume.? Mood described as a little irritated and his affect was mood congruent. ? Thought process organized.? Thought content: Patient denied suicidal or homicidal ideation, there were no delusions reported or noted, he denies any auditory or visual hallucinations.? Attention and concentration were limited and memory was unreliable but none were formally tested.? He is alert and oriented x3.? Insight was improving regarding his mental health issues and his judgment was improved. and his impulse control remained guarded. Physical Exam Urinary Catheter Management: Barba: Cath Placed During This Visit: yes, but has since been removed by the nurse Reason for Continuing Indwelling Catheter: Decision to DC Catheter Urinary Catheter Date of Insertion: 12/25/21 Urinary Catheter Time of Insertion: 12:30 Date Urinary Catheter Removed: 01/02/22 Time Urinary Catheter Discontinued: 11:00 Discharge Data 2 Studies Completed and Pending: Completed Studies During Hospitalization Category Date Time Status CT angio chest PE protcl [id number] Rout ine Cat Scan 12/28/21 09:[address] head wo con* 7 [id number] Urgent Cat Scan 12/25/21 11:35 Completed XR KUB portable 7 [id number] Routine Exams 01/07/22 11:16 Completed XR chest 1V zane ble [id number] Routine Exams 12/28/21 04:00 Completed XR chest 1V zane ble [id number] Urgent Exams 12/25/21 11:35 [place] [id number] Routin e Ultrasound 12/26/21 08:01 Completed CV. echo complete * [id number] Routine Ultrasound 12/25/21 18:47 Completed Pending at discharge Category Date Time Status CT angio chest PE protcl [id number] Rout ine Cat Scan 12/27/21 09:00 Cancelled Radiology Impressions Head CT 12/25/21 11:35 IMPRESSION: 1. No acute intracranial abnormality. 2. Chronic sinusitis left maxillary sinus and ethmoid sinus Chest X-Ray 12/28/21 04:00 IMPRESSION: Imaging findings of pulmonary edema with small right pleural effusion. Pneumonia should be excluded clinically. Chest CTA 12/28/21 09:00 IMPRESSION: 1. Acute pulmonary embolism. 2. COPD 3. Basilar atelectasis COMMENTS: THIS REPORT CONTAINS FINDINGS THAT MAY BE CRITICAL TO PATIENT CARE. The findings were verbally communicated via telephone conference with ELADIA CARROLL at 5:35 PM CDT on 12/28/2021. The findings were acknowledged and understood. KUB X-Ray 01/07/22 11:16 IMPRESSION: 1. Moderate gas and stool in the colon. 2. No evidence of small-bowel obstruction. Laboratory Results WBC 9.9 10^3/uL (4.0- 10.0) 01/07/22 05:25 RBC 4.25 10^6/uL (4.1 -5.3) 01/07/22 05:25 Hgb 13.8 g/dL (11.7-1 6.6) 01/07/22 05:25 Hct 39.8 % (42.0-52.0 ) L 01/07/22 05:25 MCV 93.6 fl (80-94) 01/07/22 05:25 MCH 32.5 pg (28.0-34. 0) 01/07/22 05:25 MCHC 34.7 g/dL (30.0-3 6.0) 01/07/22 05:25 RDW 14.8 % (12.1-15.1 ) 01/07/22 05:25 Plt Count 366 10^3/cmm (130 -400) 01/07/22 05:25 MPV 10.0 fL (7.4-10.4 ) 01/07/22 05:25 Neut % (Auto) 61.7 % 01/07/22 05:25 Lymph % (Auto) 23.3 % 01/07/22 05:25 [place] % (Auto) 11.8 % 01/07/22 05:25 Eos % (Auto) 1.3 % 01/07/22 05:25 Baso % (Auto) 1.2 % 01/07/22 05:25 Neut # (Auto) 6.10 10^3/uL (1.8 -7.7) 01/07/22 05:25 Lymph # (Auto) 2.3 10^3/uL (0.8- 4.8) 01/07/22 05:25 [place] # (Auto) 1.2 10^3/uL (0.2- 0.9) H 01/07/22 05:25 Eos # (Auto) 0.1 10^3/uL (0.0- 0.8) 01/07/22 05:25 Baso # (Auto) 0.1 10^3/uL (0.0- 0.1) 01/07/22 05:25 Nucleated RBC % (a uto) 0 % 01/07/22 05:25 Total Counted 100 (0-100) 01/01/22 04:02 Atypical Lymphs % 8.0 % (0-5) H 01/01/22 04:02 Absolute Neutrophi ls 1.9 10^3/cmm (1.4 -6.5) 01/01/22 04:02 Segmented Neutroph ils 44 % 01/01/22 04:02 Abs Segm Neuts (Ma n) 1.9 10/cmm (1.6-7 .1) 01/01/22 04:02 Band Neutrophils 0.0 % 01/01/22 04:02 Abs Band Neuts (Ma n) 0.0 10^3/cmm (0.0 -1.2) 01/01/22 04:02 Absolute Lymphocyt es 1.5 10^3/cmm (1.2 -3.4) 01/01/22 04:02 Lymphocytes (Manua l) 27 % 01/01/22 04:02 Monocytes (Manual) 15.0 % 01/01/22 04:02 Absolute Monocytes 0.6 10^3/cmm (0.1 -0.6) 01/01/22 04:02 Eosinophils (Manua l) 6 % 01/01/22 04:02 Absolute Eosinophi ls 0.2 10^3/cmm (0.0 -0.7) 01/01/22 04:02 Basophils (Manual) 0.0 % 01/01/22 04:02 Absolute Basophils 0.0 10^3/cmm (0.0 -0.2) 01/01/22 04:02 Nucleated RBCs # 0.0 /100WBC 01/07/22 05:25 Platelet Estimate Decreased (Lydia l) 01/01/22 04:02 Ovalocytes Trace 01/01/22 04:02 PT 13.90 SECONDS (12 .1-14.9) 12/26/21 04:51 INR 1.04 (0.8-1.2) 12/26/21 04:51 D-Dimer 4.48 ug/mIFEU (0- 0.59) H 12/25/21 20:04 Specimen Type Arterial 12/27/21 04:00 Sample Site Radial, right 12/27/21 04:00 ABG pH 7.42 (7.35-7.45) 12/27/21 04:00 ABG pCO2 49.9 mmHg (35-45) H 12/27/21 04:00 ABG pO2 62.4 mmHg (80.0-1 00.0) L 12/27/21 04:00 ABG HCO3 32.4 mmol/L (22-2 6) H 12/27/21 04:00 ABG O2 Saturation 92.8 12/26/21 13:15 ABG Base Excess 6.8 mmol/L (-2.0- 2.0) H 12/27/21 04:00 Jean-Paul Test Pos 12/27/21 04:00 A-a O2 Gradient 43.2 mmHg (5-10) H 12/26/21 13:15 Hematocrit 35.1 % (42-52) L 12/27/21 04:00 Hgb O2 Saturation 91.3 % (95-100) L 12/26/21 13:15 Carboxyhemoglobin 0.9 %THgb (0.4-20 .1) 12/26/21 13:15 Methemoglobin 0.7 % (0.4-1.5) 12/26/21 13:15 Total Hemoglobin 12.1 g/dL (14-18) L 12/26/21 13:15 Sodium 148.0 mmol/L (131 -143) H 12/26/21 13:15 Potassium 3.3 mmol/L (3.5-5 .0) L 12/26/21 13:15 Glucose 118.0 mg/dL (70-1 15) H 12/26/21 13:15 Ionized Calcium 1.0 mmol/L (1.1-1 .4) L 12/26/21 13:15 O2 Delivery Device Vent 12/27/21 04:00 FiO2 65.0 % 12/27/21 04:00 Tidal Volume 0.52 12/27/21 04:00 PEEP 10.0 cmH20 12/27/21 04:00 Fleet Dispatch Manager ID simbape 12/27/21 04:00 Sodium 134 mmol/L (136-1 45) L 01/08/22 05:00 Potassium 3.9 mmol/L (3.5-5 .1) 01/08/22 05:00 Chloride 102 mmol/L (98-10 7) 01/08/22 05:00 Carbon Dioxide 22 mmol/L (22-29) 01/08/22 05:00 Anion Gap 13.9 (5-19) 01/08/22 05:00 BUN 10 mg/dL (8-23) 01/08/22 05:00 Creatinine 0.5 mg/dL (0.7-1. 2) L 01/08/22 05:00 GFR Calculation 169.6 mL/min (90- 130) H 01/08/22 05:00 Glucose 100 mg/dL (65-115 ) 01/08/22 05:00 POC Glucose 102 mg/dL (70-110 ) 01/06/22 10:45 Calculated Osmolal ity 277 mOsm/kg (285- 295) L 01/08/22 05:00 Lactic Acid 2.8 mmol/L (0.5-2 .2) H 12/25/21 11:52 Lactic Acid (Sepsi s) 2.1 mmol/L (0.5-2 .2) 12/25/21 16:26 Calcium 8.8 mg/dL (8.5-10 .5) 01/08/22 05:00 Phosphorus 3.2 mg/dL (2.5-4. 5) 01/02/22 04:27 Magnesium 2.5 mg/dL (1.7-2. 3) H 01/05/22 04:45 Total Bilirubin 1.5 mg/dL (0.15-1 .2) H 12/28/21 02:50 AST 52 U/L (0-40) H 12/28/21 02:50 ALT 18 U/L (0-41) 12/28/21 02:50 Alkaline Phosphata se 95 IU/L (40-130) 12/28/21 02:50 Ammonia 47 umol/L (16-60) 12/25/21 11:52 Creatine Kinase 123 U/L (39-308) 12/25/21 20:04 Troponin T Baselin e 27 ng/L (0-15) H 12/25/21 11:52 Troponin T 120 Min [place] 22.71 ng/L (0-15) H 12/25/21 13:42 Delta Troponin T -4.29 ABS# (0-10) L 12/25/21 13:42 Troponin T Hi Sens 6Hr 43.89 ng/L (0-15) H 12/25/21 17:38 Troponin T Hi Sens 6Hr Delta 16.89 ng/L (0-12) H* 12/25/21 17:38 Total Protein 6.1 g/dL (6.6-8.7 ) L 12/28/21 02:50 Albumin 3.1 g/dL (3.5-5.2 ) L 12/28/21 02:50 Globulin 3.0 g/dL (1.3-4.6 ) 12/28/21 02:50 Lipase 29 U/L (13-60) 12/27/21 04:01 Procalcitonin 0.12 ng/mL (0-0.5 ) 12/29/21 02:52 Urine Color Yellow (Yellow) 12/25/21 12:10 Urine Appearance Clear (CLEAR) 12/25/21 12:10 Urine pH 7 (5-7) 12/25/21 12:10 Ur Specific Gravit y 1.005 (1.005-1.0 30) 12/25/21 12:10 Urine Protein Neg (Negative) 12/25/21 12:10 Urine Glucose (UA) Norm (Normal) 12/25/21 12:10 Urine Ketones Negative (Negati ve) 12/25/21 12:10 Urine Blood Neg (Negative) 12/25/21 12:10 Urine Nitrate Negative (Negati ve) 12/25/21 12:10 Urine Bilirubin Neg (Negative) 12/25/21 12:10 Urine Urobilinogen Norm mg/dL (Negat sendy) 12/25/21 12:10 Ur Leukocyte Dayna ase Negative (Negati ve) 12/25/21 12:10 Salicylates < 0.3 mg/dL (3-10 ) L 12/25/21 11:52 Salicylates < 0.3 mg/dL (3-10 ) L 12/25/21 11:52 Urine Opiates Scre en Negative ng/mL (N egative) 12/25/21 12:10 Acetaminophen < 5.0 ug/mL (10-3 0) L 12/25/21 11:52 Acetaminophen < 5.0 ug/mL (10-3 0) L 12/25/21 11:52 Ur Barbiturates Sc reen Negative ng/mL (N egative) 12/25/21 12:10 Ur Phencyclidine S crn Negative ng/mL (N egative) 12/25/21 12:10 Ur Amphetamines Sc reen Negative ng/mL (N egative) 12/25/21 12:10 U Benzodiazepines Scrn Negative ng/mL (N egative) 12/25/21 12:10 Urine Cocaine Scre en Negative ng/mL (N egative) 12/25/21 12:10 U Marijuana (THC) Screen Negative ng/mL (N egative) 12/25/21 12:10 Ethyl Alcohol 531 mg/dL (0-10) H* 12/25/21 11:52 Vitals: Last Vital Signs Temp 97.8 F 01/17/22 06:00 Pulse 91 01/17/22 09:34 Resp 16 01/17/22 09:34 BP 114/76 01/17/22 08:26 Pulse Ox 96 01/17/22 09:34 Discharge Plan Discharge Patient Disposition: Home Condition: Stable Prescriptions: New naltrexone 50 mg Tablet 50 mg PO DAILY 30 Days Qty: 30 1RF Rx Instructions: Continue daily but discontinue when Vivitrol initiated metoprolol tartrate 25 mg Tablet 25 mg PO BID@0900,2100 30 Days Qty: 60 1RF Vivitrol 380 mg suspension,extended rel recon 380 mg IM ONCE 28 Days Qty: 1 2RF Rx Instructions: Began in 27 days when he has doctor's appointment. Discontinue oral naltrexo ne once injection started. Continued (DME) Manohar Bernal See Rx Instructions .ROUTE .MEDSUPPLY Qty: 1 0RF Rx Instructions: As directed multivitamin Tablet 1 tab PO DAILY 0RF Opsumit 10 mg tablet 10 mg PO DAILY 0RF Eliquis 5 mg tablet 5 mg PO BID 0RF sildenafil (pulm.hypertension) 20 mg tablet 20 mg PO TID 0RF Dovato 50-300 mg tablet 1 tab PO QAM 0RF trazodone 150 mg tablet 150 - 300 mg PO BEDTIME 0RF mirtazapine 15 mg tablet 15 mg PO BEDTIME 0RF testosterone 20.25 mg/1.25 gram (1.62 %) gel in metered-dose pump 2 pump topical QAM 0RF sulfamethoxazole-trimethoprim 800-160 mg tablet 1 tab PO .MON,WED,FRI 0RF prednisolone acetate 1 % drops,suspension 1 drp ophthalmic (eye) BID 0RF Rx Instructions: right eye Mytesi 125 mg tablet,delayed release (DR/EC) 125 mg PO BID 0RF albuterol sulfate 90 mcg/actuation HFA aerosol inhaler 2 inh INHALATION Q4H PRN (Reason: shortness of breath or wheezing) Qty: 18 0RF Discharge Orders: Discharge Order (Routine); Ordered 01/17/22 Ordered By: Niko Bang Referrals: [facility] [Outside] Rasheed Spivey MD [Primary Care Provider] - 02/06/22 2:45 pm Discharge Diet: Regular Discharge Activity: Resume usual activity Patient Instructions: Alcohol Abuse, Suicide Prevention (DC), Opioid Safety Discharge Attestations NPU Time Spent in Discharge Care*: less than 30 min Specific Discharge Activities: Specific discharge activities: educating patient, discussing with platen builder up/social workers/dc planners, documenting/other paperwork and evaluating patient/reviewing data Status at Discharge: Cognitive status at discharge: cognitively intact , Behavioral status at discharge: can be uncooperative , Coding Level of Care Code Acute Chg FW DC note Diagnoses Refeeding syndrome E87.8 C. difficile diarrhea A04.72 Respiratory failure with hypoxia and hypercapnia J96.91; J96.92 Altered mental status R41.82 Acute hypoxemic respiratory failure J96.01 Intentional overdose of trazodone T43.212A Alcohol intoxication F10.929 Suicide attempt T14.91XA Alcohol use disorder, severe, dependence F10.20 HIV (human immunodeficiency virus infection) Z21 HIV symptom status: asymptomatic, with no history of HIV-related illness COPD (chronic obstructive pulmonary disease) J44.9 Major depressive disorder, recurrent F33.9
--- NOTE | 2022-01-17 13:53 | DCPLANNER ---
IMM completed on 01/17/22 @ 8874. Pt was given a copy of rights and he stated he understood his rights.
[2022-01-17 14:07] VITALS: PULSE 91; RESP 16; O2SAT 96
== END 2022-01-17 15:25 | disposition home or self-care (01) | DRG 917 ==
LOC: ER 11:57 → ICU 15:03 → MEDSURG 12-30 16:40 → NP 01-09 18:02
PROVIDERS: Internal Medicine; Admitting Provider Internal Medicine; Emergency Provider Emergency Medicine; PCP Family Medicine; Visit Provider Psychiatry & Neurology Psychiatry
DX: T43.212A Poisoning by selective serotonin and norepinephrine reuptake inhibitors, intentional self-harm, initial encounter (principal); J96.02 Acute respiratory failure with hypercapnia; J96.01 Acute respiratory failure with hypoxia; F10.239 Alcohol dependence with withdrawal, unspecified; J44.1 Chronic obstructive pulmonary disease with (acute) exacerbation; F33.9 Major depressive disorder, recurrent, unspecified; A04.72 Enterocolitis due to Clostridium difficile, not specified as recurrent; I82.411 Acute embolism and thrombosis of right femoral vein; I82.431 Acute embolism and thrombosis of right popliteal vein; I82.451 Acute embolism and thrombosis of right peroneal vein; I82.441 Acute embolism and thrombosis of right tibial vein; T51.0X2A Toxic effect of ethanol, intentional self-harm, initial encounter; F10.229 Alcohol dependence with intoxication, unspecified; Y90.8 Blood alcohol level of 240 mg/100 ml or more; I48.91 Unspecified atrial fibrillation; Z87.11 Personal history of peptic ulcer disease; Z21 Asymptomatic human immunodeficiency virus [HIV] infection status; Z85.72 Personal history of non-Hodgkin lymphomas; F43.10 Post-traumatic stress disorder, unspecified; Z86.711 Personal history of pulmonary embolism; Z91.51 Personal history of suicidal behavior; Z90.79 Acquired absence of other genital organ(s); F17.210 Nicotine dependence, cigarettes, uncomplicated; Z79.51 Long term (current) use of inhaled steroids; Z79.01 Long term (current) use of anticoagulants; R13.10 Dysphagia, unspecified; I27.20 Pulmonary hypertension, unspecified; E83.42 Hypomagnesemia; E87.6 Hypokalemia
CPT/HCPCS: 31500; 36415; 36416; 36600; 51702; 70450; 71045; 71275; 74018; 80048; 80051; 80053; 80306; 80307; 81003; 82140; 82330; 82550; 82803; 82805; 82962; 83605; 83690; 83735; 84100; 84132; 84145; 84484; 85007; 85025; 85378; 85610; 87070; 87077; 87205; 87493; 87641; 92507; 92523; 92610; 93005; 93306; 93970; 94002; 94003; 94640; 94664; 94799; 96365; 96366; 96367; 96372; 96375; 97110; 97116; 97161; 97165; 97530; 97535; 99291; 99292; C9113; J0610; J0692; J1644; J1650; J2060; J2250; J2405; J2543; J2704; J2765; J2930; J3010; J3370; J3411; J3475; J3480; J3490; J7030; J7040; J7050; Q9967

== ENCOUNTER 2022-01-22 19:28 | Emergency (ER) | payer MEDICARE, MEDICAID, SELFPAY ==
[2022-01-22 19:41] VITALS: BMI 22.2
--- NOTE | 2022-01-22 19:53 | W.ED.PSYCHS ---
Documented by User: Bryant Lieberman MD 02/06/22 00:03 HPI - Psych General: Chief Complaint: Psychiatric Symptoms Stated Complaint: etoh Time Seen by Provider: 01/22/22 19:53 History of Present Illness: Mr. Almanzar is a 61-year-old gentleman with history of chronic hypoxic respiratory failure and alcohol abuse brought in by EMS for suicidal ideation. The patient himself denies any suicidal ideation however he apparently made statements to law enforcement that he wanted to . The patient endorses drinking alcohol today and is a daily drinker. He does report a few day history of palpitations but denies other significant changes in health. He denies any attempts to injure himself or desire to do so. He denies current complaints. No other specific changes in health, exacerbating, or alleviating factors identified. History of same: Yes Exacerbating factors: alcohol Review of Systems General: Reports: 10 or more systems reviewed and unremarkable except in HPI and below PFSH ED PFSH: Medical History Alcohol dependence Alcohol use disorder Anorexia Atrial fibrillation Closed fractures involving multiple regions of right lower extremity Colon polyps COPD (chronic obstructive pulmonary disease) Severe COPD Deliberate medication overdose Depression Depressive disorder Diverticulitis / Diverticulosis GI bleed Was taken off Coumadin for a month in 2015 after a bleeding gastric ulcer, currently on Eliquis History of peptic ulcer disease HIV (human immunodeficiency virus infection) Hypogonadism Liver tumor Lymphoma 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 No evidence of recurrence, currently getting [employer] prophylaxis with intrathecal methotrexate with prophylactic radiation to right testicle, CHOP treatment Major depressive disorder Meningitis Orchialgia Posttraumatic stress disorder Pulmonary embolism DVT of right leg, 2009 Pulmonary hypertension After PE Suicide attempt Surgical History H/O colonoscopy 2001 -diverticulosis, colon polyps / 2005 -diverticulosis, small telangiectasia / 01/2016 -diverticulosis with intrinsic stenosis and sigmoid H/O esophagogastroduodenoscopy 2005 -reflux esophagitis, superficial gastric erosions with hemorrhagic gastritis, duodenitis /2008 -reflux esophagitis, gastritis, small chronic gastric ulcer H/O hemorrhoidectomy History of orchiectomy, unilateral L -- diffuse large B-cell lymphoma Family History Other No pertinent family history Social History Smoking and tobacco status: current every day smoker (pack a day) cigarettes Packs smoked per day: 1 Alcohol intake: current Lives independently: Yes Housing: House Physical Exam Const: COMMON NORMALS: alert GENERAL APPEARANCE: cooperative and well developed HENMT: COMMON NORMALS: normocephalic and atraumatic HEAD & SCALP: normocephalic and atraumatic Eye: COMMON NORMALS: conjunctivae normal CONJUNCTIVA: Yes conjunctivae normal SCLERA: sclerae normal Neck/C-Spine: COMMON NORMALS: supple GENERAL: Yes trachea midline Resp: COMMON NORMALS: clear to auscultation bilaterally EFFORT & INSPECTION: Yes able to speak in complete sentences AUSCULTATION: clear to auscultation bilaterally Cardio: COMMON NORMALS: regular rate and regular rhythm RATE: regular rate RHYTHM: regular rhythm GI: COMMON NORMALS: Soft to palpation PALPATION: Yes Soft to palpation, No Tenderness to palpation present (GI), No Guarding due to palpation present (GI) and No Rigid due to palpation PERCUSSION: normal to percussion Extremity: GENERAL: Yes normal exam except as noted and No edema Neuro: COMMON NORMALS: moves all extremities SENSORIUM/ORIENTATION: Yes alert and No Orientation impaired Psych: COMMON NORMALS: mental status grossly normal and Normal thought process present THOUGHT PROCESS: Normal thought process present Course ED course: - Patient was seen and evaluated by me at bedside - Patient placed on cardiac monitors, IV access obtained - Initial evaluation notable for exam as above. Patient appears clinically intoxicated - Labs personally interpreted by me. EKG showing sinus rhythm with no STEMI. QRS appears prolonged. - Fluids given - Labs notable for no leukocytosis, normal hemoglobin. Metabolic panel notable for hypokalemia, replenishment ordered. Alcohol level elevated. - Patient care handed off to overnight ED physician pending reassessment for clinical sobriety and suicidal ideation with likely psychiatry consult versus admission. Vital Signs: Vital signs: Vital Signs Temperature 97.9 F 01/23/22 05:47 Pulse Rate 87 01/23/22 05:47 Respiratory Rate 18 01/23/22 05:47 Blood Pressure 117/74 01/23/22 05:47 Pulse Oximetry 95 01/23/22 05:47 MDM - Psych Medical Decision Making 61-year-old gentleman presenting with law enforcement for suicidal statements. Patient is clinically intoxicated and endorses alcohol use. Hypokalemia noted on metabolic panel. Patient handed off to overnight ED physician pending reassessment when clinically sober with likely psychiatry consult. I took patient over from previous physician. I spoke to Lefty multiple times throughout the night and he is adamantly denied being suicidal. Patient was evaluated by Dr. Bang at 4 AM after patient sobered up and Dr. Bang agrees that he is not acutely suicidal and feels patient is stable for discharge home. I did speak to patient again and offered admission to the psychiatric unit if he wanted to be admitted voluntarily and he refuses. He has not made any suicidal statements here and I believe that he is stable for discharge from the ER as well and agree with the psychiatrist. Patient is to follow-up and return if he has any suicidal thoughts he understands and agrees to plan. Medical Records I reviewed the patient's medical records. Lab Data I reviewed the patient's lab results. : 01/22/22 20:15 01/22/22 20:15 Laboratory Results WBC 7.4 10^3/uL (4.0-10.0) 01/22/22 20:15 RBC 4.05 10^6/uL (4.1-5.3) L 01/22/22 20:15 Hgb 13.0 g/dL (11.7-16.6) 01/22/22 20:15 Hct 36.6 % (42.0-52.0) L 01/22/22 20:15 MCV 90.4 fl (80-94) 01/22/22 20:15 MCH 32.1 pg (28.0-34.0) 01/22/22 20:15 MCHC 35.5 g/dL (30.0-36.0) 01/22/22 20:15 RDW 13.6 % (12.1-15.1) 01/22/22 20:15 Plt Count 215 10^3/cmm (130-400) 01/22/22 20:15 MPV 8.7 fL (7.4-10.4) 01/22/22 20:15 Neut % (Auto) 54.3 % 01/22/22 20:15 Lymph % (Auto) 35.7 % 01/22/22 20:15 [place] % (Auto) 7.5 % 01/22/22 20:15 Eos % (Auto) 1.0 % 01/22/22 20:15 Baso % (Auto) 1.2 % 01/22/22 20:15 Neut # (Auto) 4.00 10^3/uL (1.8-7.7) 01/22/22 20:15 Lymph # (Auto) 2.6 10^3/uL (0.8-4.8) 01/22/22 20:15 [place] # (Auto) 0.6 10^3/uL (0.2-0.9) 01/22/22 20:15 Eos # (Auto) 0.1 10^3/uL (0.0-0.8) 01/22/22 20:15 Baso # (Auto) 0.1 10^3/uL (0.0-0.1) 01/22/22 20:15 Nucleated RBC % (auto) 0 % 01/22/22 20:15 Nucleated RBCs # 0.0 /100WBC 01/22/22 20:15 Sodium 138 mmol/L (136-145) 01/22/22 20:15 Potassium 2.6 mmol/L (3.5-5.1) L* 01/22/22 20:15 Chloride 100 mmol/L (98-107) 01/22/22 20:15 Carbon Dioxide 21 mmol/L (22-29) L 01/22/22 20:15 Anion Gap 19.6 (5-19) H 01/22/22 20:15 BUN 3 mg/dL (8-23) L 01/22/22 20:15 Creatinine 0.6 mg/dL (0.7-1.2) L 01/22/22 20:15 GFR Calculation 137.4 mL/min (90-130) H 01/22/22 20:15 Glucose 105 mg/dL (65-115) 01/22/22 20:15 Calculated Osmolality 283 mOsm/kg (285-295) L 01/22/22 20:15 Calcium 8.4 mg/dL (8.5-10.5) L 01/22/22 20:15 Total Bilirubin 0.3 mg/dL (0.15-1.2) 01/22/22 20:15 AST 28 U/L (0-40) 01/22/22 20:15 ALT 26 U/L (0-41) 01/22/22 20:15 Alkaline Phosphatase 97 IU/L (40-130) 01/22/22 20:15 Total Protein 7.0 g/dL (6.6-8.7) 01/22/22 20:15 Albumin 3.8 g/dL (3.5-5.2) 01/22/22 20:15 Globulin 3.2 g/dL (1.3-4.6) 01/22/22 20:15 Salicylates < 0.3 mg/dL (3-10) L 01/22/22 20:15 Urine Opiates Screen Negative ng/mL (Negative) 01/22/22 20:15 Acetaminophen < 5.0 ug/mL (10-30) L 01/22/22 20:15 Ur Barbiturates Screen Negative ng/mL (Negative) 01/22/22 20:15 Ur Phencyclidine Scrn Negative ng/mL (Negative) 01/22/22 20:15 Ur Amphetamines Screen Negative ng/mL (Negative) 01/22/22 20:15 U Benzodiazepines Scrn Negative ng/mL (Negative) 01/22/22 20:15 Urine Cocaine Screen Negative ng/mL (Negative) 01/22/22 20:15 U Marijuana (THC) Screen Negative ng/mL (Negative) 01/22/22 20:15 Ethyl Alcohol 265 mg/dL (0-10) H 01/22/22 20:15 Discharge Plan Discharge Patient Disposition: Home Clinical Impression: Chronic alcohol abuse, Alcohol intoxication, Psychiatric care, Hypokalemia, Dehydration Condition: Stable Prescriptions: New potassium chloride 20 mEq tablet extended release 20 meq PO BID Qty: 6 0RF No Action (DME) Cam Walker See Rx Instructions .ROUTE .MEDSUPPLY Qty: 1 0RF Rx Instructions: As directed multivitamin Tablet 1 tab PO DAILY 0RF Opsumit 10 mg tablet 10 mg PO DAILY 0RF Eliquis 5 mg tablet 5 mg PO BID 0RF sildenafil (pulm.hypertension) 20 mg tablet 20 mg PO TID 0RF Dovato 50-300 mg tablet 1 tab PO QAM 0RF trazodone 150 mg tablet 150 - 300 mg PO BEDTIME 0RF mirtazapine 15 mg tablet 15 mg PO BEDTIME 0RF testosterone 20.25 mg/1.25 gram (1.62 %) gel in metered-dose pump 2 pump topical QAM 0RF naltrexone 50 mg Tablet 50 mg PO DAILY 30 Days Qty: 30 1RF Rx Instructions: Continue daily but discontinue when Vivitrol initiated metoprolol tartrate 25 mg Tablet 25 mg PO BID@0900,2100 30 Days Qty: 60 1RF Vivitrol 380 mg suspension,extended rel recon 380 mg IM ONCE 28 Days Qty: 1 2RF Rx Instructions: Began in 27 days when he has doctor's appointment. Discontinue oral naltrexone once injection started. sulfamethoxazole-trimethoprim 800-160 mg tablet 1 tab PO .MON,WED,FRI 0RF prednisolone acetate 1 % drops,suspension 1 drp ophthalmic (eye) BID 0RF Rx Instructions: right eye Mytesi 125 mg tablet,delayed release (DR/EC) 125 mg PO BID 0RF albuterol sulfate 90 mcg/actuation HFA aerosol inhaler 2 inh INHALATION Q4H PRN (Reason: shortness of breath or wheezing) Qty: 18 0RF Discharge Orders: Discharge ED (Routine); Ordered 01/23/22 Ordered By: Fanny Virgen Referrals: Rasheed Spivey MD [Primary Care Provider] - Discharge Diet: Usual diet Discharge Activity: Increase activity as tolerated Patient Instructions: Dehydration (ED), Hypokalemia (ED), Abuse of Alcohol (ED) Activity Restrictions/Additional Instructions: Thank you for visiting the emergency department. You were seen for psychiatric evaluation in the context of alcohol abuse. After discussion with psychiatry it is safe to discharge you. You were found to be dehydrated and have a low potassium. Please ensure that you are staying hydrated and I will prescribe potassium supplementation to take for the next 3 days. Please have repeat laboratory studies done within 1 week. Please stop abusing alcohol. Failure to stop abusing alcohol will likely lead to or worse. Return to the emergency department for anything that you are concerned about and feel needs emergency department evaluation. Coding Level of Care Code ED Java J2Ee Architect for [employer] Fwd Exam Comprehensive Documented by User: Fanyn Virgen MD 01/23/22 05:16 HPI - Psych General: Chief Complaint: Psychiatric Symptoms Stated Complaint: etoh Time Seen by Provider: 01/22/22 19:53 PFS ED PFSH: Medical History Alcohol dependence Alcohol use disorder Anorexia Atrial fibrillation Closed fractures involving multiple regions of right lower extremity Colon polyps COPD (chronic obstructive pulmonary disease) Severe COPD Deliberate medication overdose Depression Depressive disorder Diverticulitis / Diverticulosis GI bleed Was taken off Coumadin for a month in 2015 after a bleeding gastric ulcer, currently on Eliquis History of peptic ulcer disease HIV (human immunodeficiency virus infection) Hypogonadism Liver tumor Lymphoma 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 No evidence of recurrence, currently getting [employer] prophylaxis with intrathecal methotrexate with prophylactic radiation to right testicle, CHOP treatment Major depressive disorder Meningitis Orchialgia Posttraumatic stress disorder Pulmonary embolism DVT of right leg, 2009 Pulmonary hypertension After PE Suicide attempt Surgical History H/O colonoscopy 2001 -diverticulosis, colon polyps / 2005 -diverticulosis, small telangiectasia / 01/2016 -diverticulosis with intrinsic stenosis and sigmoid H/O esophagogastroduodenoscopy 2005 -reflux esophagitis, superficial gastric erosions with hemorrhagic gastritis, duodenitis /2008 -reflux esophagitis, gastritis, small chronic gastric ulcer H/O hemorrhoidectomy History of orchiectomy, unilateral L -- diffuse large B-cell lymphoma Family History Other No pertinent family history Social History Smoking and tobacco status: current every day smoker (pack a day) cigarettes Packs smoked per day: 1 Alcohol intake: current Lives independently: Yes Housing: House Course Vital Signs: Vital signs: Vital Signs Temperature 97.9 F 01/23/22 05:47 Pulse Rate 87 01/23/22 05:47 Respiratory Rate 18 01/23/22 05:47 Blood Pressure 117/74 01/23/22 05:47 Pulse Oximetry 95 01/23/22 05:47 MDM - Psych Medical Decision Making I took patient over from previous physician. I spoke to Lefty multiple times throughout the night and he is adamantly denied being suicidal. Patient was evaluated by Dr. Bang at 4 AM after patient sobered up and Dr. Bang agrees that he is not acutely suicidal and feels patient is stable for discharge home. I did speak to patient again and offered admission to the psychiatric unit if he wanted to be admitted voluntarily and he refuses. He has not made any suicidal statements here and I believe that he is stable for discharge from the ER as well and agree with the psychiatrist. Patient is to follow-up and return if he has any suicidal thoughts he understands and agrees to plan. Lab Data : 01/22/22 20:15 01/22/22 20:15 Laboratory Results WBC 7.4 10^3/uL (4.0-10.0) 01/22/22 20:15 RBC 4.05 10^6/uL (4.1-5.3) L 01/22/22 20:15 Hgb 13.0 g/dL (11.7-16.6) 01/22/22 20:15 Hct 36.6 % (42.0-52.0) L 01/22/22 20:15 MCV 90.4 fl (80-94) 01/22/22 20:15 MCH 32.1 pg (28.0-34.0) 01/22/22 20:15 MCHC 35.5 g/dL (30.0-36.0) 01/22/22 20:15 RDW 13.6 % (12.1-15.1) 01/22/22 20:15 Plt Count 215 10^3/cmm (130-400) 01/22/22 20:15 MPV 8.7 fL (7.4-10.4) 01/22/22 20:15 Neut % (Auto) 54.3 % 01/22/22 20:15 Lymph % (Auto) 35.7 % 01/22/22 20:15 [place] % (Auto) 7.5 % 01/22/22 20:15 Eos % (Auto) 1.0 % 01/22/22 20:15 Baso % (Auto) 1.2 % 01/22/22 20:15 Neut # (Auto) 4.00 10^3/uL (1.8-7.7) 01/22/22 20:15 Lymph # (Auto) 2.6 10^3/uL (0.8-4.8) 01/22/22 20:15 [place] # (Auto) 0.6 10^3/uL (0.2-0.9) 01/22/22 20:15 Eos # (Auto) 0.1 10^3/uL (0.0-0.8) 01/22/22 20:15 Baso # (Auto) 0.1 10^3/uL (0.0-0.1) 01/22/22 20:15 Nucleated RBC % (auto) 0 % 01/22/22 20:15 Nucleated RBCs # 0.0 /100WBC 01/22/22 20:15 Sodium 138 mmol/L (136-145) 01/22/22 20:15 Potassium 2.6 mmol/L (3.5-5.1) L* 01/22/22 20:15 Chloride 100 mmol/L (98-107) 01/22/22 20:15 Carbon Dioxide 21 mmol/L (22-29) L 01/22/22 20:15 Anion Gap 19.6 (5-19) H 01/22/22 20:15 BUN 3 mg/dL (8-23) L 01/22/22 20:15 Creatinine 0.6 mg/dL (0.7-1.2) L 01/22/22 20:15 GFR Calculation 137.4 mL/min (90-130) H 01/22/22 20:15 Glucose 105 mg/dL (65-115) 01/22/22 20:15 Calculated Osmolality 283 mOsm/kg (285-295) L 01/22/22 20:15 Calcium 8.4 mg/dL (8.5-10.5) L 01/22/22 20:15 Total Bilirubin 0.3 mg/dL (0.15-1.2) 01/22/22 20:15 AST 28 U/L (0-40) 01/22/22 20:15 ALT 26 U/L (0-41) 01/22/22 20:15 Alkaline Phosphatase 97 IU/L (40-130) 01/22/22 20:15 Total Protein 7.0 g/dL (6.6-8.7) 01/22/22 20:15 Albumin 3.8 g/dL (3.5-5.2) 01/22/22 20:15 Globulin 3.2 g/dL (1.3-4.6) 01/22/22 20:15 Salicylates < 0.3 mg/dL (3-10) L 01/22/22 20:15 Urine Opiates Screen Negative ng/mL (Negative) 01/22/22 20:15 Acetaminophen < 5.0 ug/mL (10-30) L 01/22/22 20:15 Ur Barbiturates Screen Negative ng/mL (Negative) 01/22/22 20:15 Ur Phencyclidine Scrn Negative ng/mL (Negative) 01/22/22 20:15 Ur Amphetamines Screen Negative ng/mL (Negative) 01/22/22 20:15 U Benzodiazepines Scrn Negative ng/mL (Negative) 01/22/22 20:15 Urine Cocaine Screen Negative ng/mL (Negative) 01/22/22 20:15 U Marijuana (THC) Screen Negative ng/mL (Negative) 01/22/22 20:15 Ethyl Alcohol 265 mg/dL (0-10) H 01/22/22 20:15 Discharge Plan Discharge Patient Disposition: Home Clinical Impression: Chronic alcohol abuse, Alcohol intoxication, Psychiatric care, Hypokalemia, Dehydration Condition: Stable Prescriptions: New potassium chloride 20 mEq tablet extended release 20 meq PO BID Qty: 6 0RF No Action (DME) Manohar Bernal See Rx Instructions .ROUTE .MEDSUPPLY Qty: 1 0RF Rx Instructions: As directed multivitamin Tablet 1 tab PO DAILY 0RF Opsumit 10 mg tablet 10 mg PO DAILY 0RF Eliquis 5 mg tablet 5 mg PO BID 0RF sildenafil (pulm.hypertension) 20 mg tablet 20 mg PO TID 0RF Dovato 50-300 mg tablet 1 tab PO QAM 0RF trazodone 150 mg tablet 150 - 300 mg PO BEDTIME 0RF mirtazapine 15 mg tablet 15 mg PO BEDTIME 0RF testosterone 20.25 mg/1.25 gram (1.62 %) gel in metered-dose pump 2 pump topical QAM 0RF naltrexone 50 mg Tablet 50 mg PO DAILY 30 Days Qty: 30 1RF Rx Instructions: Continue daily but discontinue when Vivitrol initiated metoprolol tartrate 25 mg Tablet 25 mg PO BID@0900,2100 30 Days Qty: 60 1RF Vivitrol 380 mg suspension,extended rel recon 380 mg IM ONCE 28 Days Qty: 1 2RF Rx Instructions: Began in 27 days when he has doctor's appointment. Discontinue oral naltrexone once injection started. sulfamethoxazole-trimethoprim 800-160 mg tablet 1 tab PO .MON,WED,FRI 0RF prednisolone acetate 1 % drops,suspension 1 drp ophthalmic (eye) BID 0RF Rx Instructions: right eye Mytesi 125 mg tablet,delayed release (DR/EC) 125 mg PO BID 0RF albuterol sulfate 90 mcg/actuation HFA aerosol inhaler 2 inh INHALATION Q4H PRN (Reason: shortness of breath or wheezing) Qty: 18 0RF Discharge Orders: Discharge ED (Routine); Ordered 01/23/22 Ordered By: Fanny Virgen Referrals: Rasheed Spivey MD [Primary Care Provider] - Discharge Diet: Usual diet Discharge Activity: Increase activity as tolerated Patient Instructions: Dehydration (ED), Hypokalemia (ED), Abuse of Alcohol (ED) Activity Restrictions/Additional Instructions: Thank you for visiting the emergency department. You were seen for psychiatric evaluation in the context of alcohol abuse. After discussion with psychiatry it is safe to discharge you. You were found to be dehydrated and have a low potassium. Please ensure that you are staying hydrated and I will prescribe potassium supplementation to take for the next 3 days. Please have repeat laboratory studies done within 1 week. Please stop abusing alcohol. Failure to stop abusing alcohol will likely lead to or worse. Return to the emergency department for anything that you are concerned about and feel needs emergency department evaluation. Coding Level of Care Code ED Java J2Ee Architect for Osmin Ordonez Exam Comprehensive
--- NOTE | 2022-01-22 19:58 | ECG_ITS ---
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 Measurements Intervals [place] Rate: 102 P: 42 WI: 163 QRS: 45 QRSD: 107 T: 66 QT: 395 QTc: 516 Interpretive Statements SINUS TACHYCARDIA NONSPECIFIC T-WAVE ABNORMALITY ABNORMAL RHYTHM ECG Compared to ECG 12/29/2021 09:56:55 T-wave abnormality now present ST (T wave) deviation no longer present Electronically Signed On 01-23-2022 8:48:12 CDT by Josue Maier M.D. [id number]
--- NOTE | 2022-01-22 20:09 | PC.NURSE ---
EKG done at 2005 and shown to ER doctor
[2022-01-22 20:23] LABS: Basophils # 0.1 10^3/uL (0.0-0.1); Basophils % 1.2 %; Eosinophils # 0.1 10^3/uL (0.0-0.8); Hematocrit 36.6 % (42.0-52.0); Lymphocytes # 2.6 10^3/uL (0.8-4.8); Lymphocytes % 35.7 %; Mean Corpuscular HGB Conc 35.5 g/dL (30.0-36.0); Mean Corpuscular Hemoglobin 32.1 pg (28.0-34.0); Mean Corpuscular Volume 90.4 fl (80-94); Mean Platelet Volume 8.7 fL (7.4-10.4); Monocytes # 0.6 10^3/uL (0.2-0.9); Monocytes % 7.5 %; Neutrophils % 54.3 %; Nucleated Red Blood Cells % 0 %; Platelet Count 215 10^3/cmm (130-400); Red Blood Count 4.05 10^6/uL (4.1-5.3); Red Cell Distribution Width 13.6 % (12.1-15.1); White Blood Count 7.4 10^3/uL (4.0-10.0)
[2022-01-22 20:40] LABS: Alanine Aminotransferase 26 U/L (0-41); Albumin Level 3.8 g/dL (3.5-5.2); Alcohol Level 265 mg/dL (0-10); Alkaline Phosphatase 97 IU/L (40-130); Anion Gap 19.6 (5-19); Aspartate Amino Transferase 28 U/L (0-40); Blood Urea Nitrogen 3 mg/dL (8-23); Calcium 8.4 mg/dL (8.5-10.5); Carbon Dioxide 21 mmol/L (22-29); Chloride 100 mmol/L (98-107); Globulin 3.2 g/dL (1.3-4.6); Glomerular Filtration Rate 137.4 mL/min (90-130); Glucose 105 mg/dL (65-115); Osmolality Calculated 283 mOsm/kg (285-295); Sodium 138 mmol/L (136-145); Total Bilirubin 0.3 mg/dL (0.15-1.2)
[2022-01-22 20:41] LABS: Acetaminophen < 5.0 ug/mL (10-30); Salicylate < 0.3 mg/dL (3-10)
[2022-01-22 20:42] LABS: Potassium 2.6 mmol/L (3.5-5.1)
[2022-01-22] MEDS: potassium chloride ER 20 mEq Tablet 40 MEQ PO (21:13)
[2022-01-22] MEDS: potassium chloride premix 100 ML 25 MEQ IV (21:13)
[2022-01-22] MEDS: sodium chloride 0.9% 1,000 ML 999 ML IV (21:13)
[2022-01-22] MEDS: LORazepam 2 mg/mL INJ 1 mL 0.5 MG IVP (21:13)
[2022-01-22 21:41] LABS: Amphetamines Screen Urine Negative (Negative); Barbiturates Screen Urine Negative (Negative); Benzodiazepines Screen Urine Negative (Negative); Cocaine Screen Urine Negative (Negative); Opiate Screen Urine Negative (Negative); PCP Screen Urine Negative (Negative); THC Screen Urine Negative (Negative)
[2022-01-23 00:49] VITALS: BP 120/68; PULSE 92; RESP 20; O2SAT 94
[2022-01-23 05:47] VITALS: BP 117/74; PULSE 87; RESP 18; TEMP 36.6; O2SAT 95
== END 2022-01-23 05:51 | disposition home or self-care (01) ==
PROVIDERS: Emergency Provider Emergency Medicine; PCP Family Medicine
DX: Z00.8 Encounter for other general examination (principal); F10.129 Alcohol abuse with intoxication, unspecified; Y90.8 Blood alcohol level of 240 mg/100 ml or more; E87.6 Hypokalemia; E86.0 Dehydration; Z79.01 Long term (current) use of anticoagulants; J44.9 Chronic obstructive pulmonary disease, unspecified; B20 Human immunodeficiency virus [HIV] disease; Z85.72 Personal history of non-Hodgkin lymphomas; Z91.51 Personal history of suicidal behavior; F17.210 Nicotine dependence, cigarettes, uncomplicated
CPT/HCPCS: 80053; 80306; 80307; 85025; 93005; 96365; 96375; 99284; J2060; J3480; J7030

== ENCOUNTER 2022-02-15 17:11 | Emergency (ER) | payer MEDICARE, MEDICAID, SELFPAY ==
[2022-02-15 17:25] VITALS: BP 109/66; PULSE 83; RESP 20; TEMP 36.8; O2SAT 93; BMI 22.8
--- NOTE | 2022-02-15 17:32 | USR_ITS ---
PROCEDURE INFORMATION: Exam: US Duplex Right Lower Extremity Veins, Limited Exam date and time: 02/15/2022 5:47 PM Age: 61 years old Clinical indication: Pain; Leg, lower; Right; Additional info: R/O dvt TECHNIQUE: Imaging protocol: Real-time Duplex ultrasound of the Right Lower Extremity with 2-D solomon scale, color Doppler flow and spectral waveform analysis with image documentation. Limited exam was focused on the right lower extremity veins. COMPARISON: No relevant prior studies available. FINDINGS: Right deep veins: The right common femoral vein, femoral vein, visualized profundus femoral vein, popliteal vein, posterior tibial vein, peroneal veins are incompletely compressible or noncompressible. Duplex imaging demonstrates limited blood flow by color Doppler and spectral Doppler. Venous waveforms are demonstrated on spectral Doppler without normal augmentation response or respiratory variation noted. Right superficial veins: Saphenofemoral junction is partially thrombosed. Soft tissues: Unremarkable. US/[place] [id number] IMPRESSION: Findings are consistent with deep vein thrombosis from the right common femoral vein through the calf veins.
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
--- NOTE | 2022-02-15 19:33 | ED_ITS ---
HPI - General Adult General: Chief complaint: General Medical Stated complaint: Left leg swelling, pain Time Seen by Provider: 02/15/22 19:13 Source: patient Mode of arrival: ambulatory Limitations: no limitations History of Present Illness: 61-year-old male who has had a DVT in his right lower leg patient is a chronic alcoholic. He states he has not been taking his Eliquis and has had some right leg swelling. He denies any chest pain denies any shortness of breath denies any worsening proving factors. Associated symptoms: Deny chest pain, dyspnea, headache(s), nausea, rash or vomiting Review of Systems Const: Denies: fever(s), chills, body aches or change in appetite Eyes: Denies: blurry vision or eye discomfort ENMT: Denies: throat pain or dental pain Card: Denies: chest pain Resp: Denies: dyspnea GI: Denies: abdominal pain, nausea, vomiting or diarrhea : Denies: dysuria Musc: Denies: neck pain or back pain Skin/Breast: Denies: rash Neuro: Denies: headache(s) Psych: Denies: depression Obey/Lymph: Denies: easy bruising All/Imm: Denies: urticaria PFSH ED PFSH: Medical History Alcohol dependence Alcohol use disorder Anorexia Atrial fibrillation Closed fractures involving multiple regions of right lower extremity Colon polyps COPD (chronic obstructive pulmonary disease) Severe COPD Deliberate medication overdose Depression Depressive disorder Diverticulitis / Diverticulosis GI bleed Was taken off Coumadin for a month in 2015 after a bleeding gastric ulcer, currently on Eliquis History of peptic ulcer disease HIV (human immunodeficiency virus infection) Hypogonadism Liver tumor Lymphoma 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 No evidence of recurrence, currently getting SECURITY DIRECTOR prophylaxis with intrathecal methotrexate with prophylactic radiation to right testicle, CHOP treatment Major depressive disorder Meningitis Orchialgia Posttraumatic stress disorder Pulmonary embolism DVT of right leg, 2009 Pulmonary hypertension After PE Suicide attempt Surgical History H/O colonoscopy 2001 -diverticulosis, colon polyps / 2005 -diverticulosis, small telangiectasia / 01/2016 -diverticulosis with intrinsic stenosis and sigmoid H/O esophagogastroduodenoscopy 2005 -reflux esophagitis, superficial gastric erosions with hemorrhagic gastritis, duodenitis /2009 -reflux esophagitis, gastritis, small chronic gastric ulcer H/O hemorrhoidectomy History of orchiectomy, unilateral L -- diffuse large B-cell lymphoma Family History Other No pertinent family history Social History Smoking and tobacco status: current every day smoker (pack a day) cigarettes Packs smoked per day: 1 Alcohol intake: current Lives independently: Yes Housing: House Physical Exam Const: COMMON NORMALS: no acute distress, patient oriented x3 and healthy appearing HENMT: COMMON NORMALS: normocephalic and atraumatic HEAD & SCALP: normocephalic and atraumatic Eye: COMMON NORMALS: Equal, round and reactive pupils present and EOMs intact bilaterally PUPIL: Yes Equal, round and reactive pupils present Neck/C-Spine: COMMON NORMALS: full ROM and supple Chest: COMMONS NORMALS: normal inspection of the chest and normal palpation of entire chest wall Resp: COMMON NORMALS: normal respiratory effort, No retractions, No use of accessory muscles and clear to auscultation bilaterally AUSCULTATION: clear to auscultation bilaterally Cardio: COMMON NORMALS: regular rate, regular rhythm and No murmurs present (Cardio) RATE: regular rate RHYTHM: regular rhythm GI: COMMON NORMALS: Normal to inspection, nondistended, normoactive bowel sounds present, Soft to palpation, non-tender and no masses PALPATION: Yes Soft to palpation Extremity: COMMON NORMALS: full ROM NARRATIVE EXTREMITY EXAM: rle swelling Neuro: COMMON NORMALS: patient oriented x3, moves all extremities and no focal motor deficits Psych: COMMON NORMALS: mental status grossly normal, Normal thought process present and cooperative THOUGHT PROCESS: Normal thought process present Skin: COMMON NORMALS: no rashes or lesions noted and no wounds GENERAL SKIN EXAM: no rashes or lesions noted Course Vital Signs: Vital signs: Vital Signs Temperature 98.2 F 02/15/22 17:25 Pulse Rate 83 02/15/22 17:25 Respiratory Rate 20 H 02/15/22 17:25 Blood Pressure 109/66 02/15/22 17:25 Pulse Oximetry 93 02/15/22 17:25 Oxygen Delivery Me thod 02/15/22 17:25 Oxygen Flow Rate 4 02/15/22 17:25 MDM - General Adult Medical Decision Making Patient presents here with a DVT has been chronic in nature he has not been taking his Eliquis he is well-appearing here he has no signs of PE he is stable for discharge is to follow-up PCP and return if worsening. Lab Data Radiology Impressions Venous Duplex 02/15/22 17:32 IMPRESSION: Findings are consistent with deep vein thrombosis from the right common femoral vein through the calf veins. ADDENDUM: 02/15/22 [id number] THIS REPORT CONTAINS FINDINGS MAY BE CRITICAL TO PATIENT CARE. The findings were verbally communicated via telephone conference call with Dr. Stallworth at 6:46 PM CDT on 02/15/2022. The findings were acknowledged and understood. Discharge Plan Discharge Patient Disposition: Home Clinical Impression: DVT (deep venous thrombosis) Condition: Stable Prescriptions: Continued Eliquis 5 mg tablet 5 mg PO BID Qty: 60 0RF No Action (DME) Manohar Bernal See Rx Instructions .ROUTE .MEDSUPPLY Qty: 1 0RF Rx Instructions: As directed multivitamin Tablet 1 tab PO DAILY Opsumit 10 mg tablet 10 mg PO DAILY sildenafil (pulm.hypertension) 20 mg tablet 20 mg PO TID Dovato 50-300 mg tablet 1 tab PO QAM trazodone 150 mg tablet 150 - 300 mg PO BEDTIME mirtazapine 15 mg tablet 15 mg PO BEDTIME testosterone 20.25 mg/1.25 gram (1.62 %) gel in metered-dose pump 2 pump topical QAM naltrexone 50 mg Tablet 50 mg PO DAILY 30 Days Qty: 30 1RF Rx Instructions: Continue daily but discontinue when Vivitrol initiated metoprolol tartrate 25 mg Tablet 25 mg PO BID@0900,2100 30 Days Qty: 60 1RF Vivitrol 380 mg suspension,extended rel recon 380 mg IM ONCE 28 Days Qty: 1 2RF Rx Instructions: Began in 27 days when he has doctor's appointment. Discontinue oral naltrexone once injection started. sulfamethoxazole-trimethoprim 800-160 mg tablet 1 tab PO .MON,WED,FRI prednisolone acetate 1 % drops,suspension 1 drp ophthalmic (eye) BID Rx Instructions: right eye Mytesi 125 mg tablet,delayed release (DR/EC) 125 mg PO BID albuterol sulfate 90 mcg/actuation HFA aerosol inhaler 2 inh INHALATION Q4H PRN (Reason: shortness of breath or wheezing) Qty: 18 0RF potassium chloride 20 mEq tablet extended release 20 meq PO BID Qty: 6 0RF Discharge Orders: Discharge ED (Routine); Ordered 02/15/22 Ordered By: Fanny Virgen Referrals: Rasheed Spivey MD [Primary Care Provider] - Discharge Diet: Advance as tolerated Discharge Activity: Increase activity as tolerated Patient Instructions: Deep Vein Thrombosis (ED) Coding Level of Care Code ED Fireworks Display Specialist for Osmin Ordonez
== END 2022-02-15 19:44 | disposition home or self-care (01) ==
PROVIDERS: Emergency Provider Emergency Medicine; PCP Family Medicine
DX: I82.411 Acute embolism and thrombosis of right femoral vein (principal); Z79.01 Long term (current) use of anticoagulants; J44.9 Chronic obstructive pulmonary disease, unspecified; B20 Human immunodeficiency virus [HIV] disease; Z85.72 Personal history of non-Hodgkin lymphomas; Z86.718 Personal history of other venous thrombosis and embolism; F17.210 Nicotine dependence, cigarettes, uncomplicated
CPT/HCPCS: 93971; 99283

== ENCOUNTER 2022-02-23 17:50 | Emergency (ER) | payer MEDICARE, MEDICAID, SELFPAY ==
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
[2022-02-23] MEDS: midazolam 1 mg/mL INJ 2 mL IM (18:14)
[2022-02-23] MEDS: haloperidol inj 5 mg/mL INJ 1 mL IM (18:14)
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
[2022-02-23 19:05] VITALS: BP 93/66; PULSE 85; RESP 20; O2SAT 94; BMI 24.4
[2022-02-23 19:13] LABS: Basophils # 0.1 10^3/uL (0.0-0.1); Eosinophils # 0.1 10^3/uL (0.0-0.8); Hematocrit 47.7 % (42.0-52.0); Hemoglobin 15.4 g/dL (11.7-16.6); Lymphocytes # 2.3 10^3/uL (0.8-4.8); Lymphocytes % 39.5 %; Mean Corpuscular HGB Conc 32.3 g/dL (30.0-36.0); Mean Corpuscular Hemoglobin 32.1 pg (28.0-34.0); Mean Corpuscular Volume 99.4 fl (80-94); Mean Platelet Volume 9.3 fL (7.4-10.4); Monocytes # 0.4 10^3/uL (0.2-0.9); Monocytes % 6.2 %; Neutrophils # 3.04 10^3/uL (1.8-7.7); Neutrophils % 52.1 %; Nucleated Red Blood Cells % 0 %; Platelet Count 229 10^3/cmm (130-400); Red Cell Distribution Width 13.7 % (12.1-15.1); White Blood Count 5.8 10^3/uL (4.0-10.0)
--- NOTE | 2022-02-23 19:23 | PC.NURSE ---
1910 - patient is sedated but uncooperative with staff and monitoring equipment. patient continues to remove equipment. will redirect patient and educate on the need for monitoring
[2022-02-23 19:40] LABS: Alanine Aminotransferase 26 U/L (0-41); Albumin Level 3.2 g/dL (3.5-5.2); Alkaline Phosphatase 174 IU/L (40-130); Anion Gap 18.3 (5-19); Aspartate Amino Transferase 53 U/L (0-40); Calcium 7.7 mg/dL (8.5-10.5); Carbon Dioxide 23 mmol/L (22-29); Chloride 98 mmol/L (98-107); Globulin 3.8 g/dL (1.3-4.6); Glomerular Filtration Rate 169.6 mL/min (90-130); Glucose 100 mg/dL (65-115); Sodium 137 mmol/L (136-145); Total Bilirubin 0.4 mg/dL (0.15-1.2)
[2022-02-23 20:05] LABS: Acetaminophen < 5.0 ug/mL (10-30); Blood Urea Nitrogen 1 mg/dL (8-23); Creatinine Clr Calc Pharmacy 170.9591; Osmolality Calculated 280 mOsm/kg (285-295); Salicylate < 0.3 mg/dL (3-10)
[2022-02-23 20:13] LABS: Alcohol Level 428 mg/dL (0-10); Potassium 2.3 mmol/L (3.5-5.1)
--- NOTE | 2022-02-23 20:35 | PC.PHAR ---
pt unable to verify home medications due to ETOH
--- NOTE | 2022-02-23 21:19 | PC.NURSE ---
patient refuses to change out of dirty clothes. only allowed tech and myself to clean off his legs and buttocks of stool. Wishes to remain in shirt. able to change patient out of shorts
[2022-02-23] MEDS: folic acid 1 MG, multivitamin inj 10 ML, thiamine 100 MG in sodium chloride 0.9% 1,000 ML 252.8 MG IV (21:28)
--- NOTE | 2022-02-23 21:32 | PC.NURSE ---
Patient refuses to allow staff to place him on the monitor. continues to remove pulse ox and blood pressure
[2022-02-23 23:24] VITALS: BP 112/75; PULSE 88; RESP 16; O2SAT 93
[2022-02-24 00:43] VITALS: BP 104/69; PULSE 84; O2SAT 92
[2022-02-24 04:48] VITALS: BP 110/74
[2022-02-24 05:46] VITALS: BP 119/77; PULSE 94; RESP 22; O2SAT 95
== END 2022-02-24 05:47 | disposition home or self-care (01) ==
PROVIDERS: Emergency Provider Emergency Medicine; PCP Family Medicine
DX: S09.8XXA Other specified injuries of head, initial encounter (principal); E87.6 Hypokalemia; F10.20 Alcohol dependence, uncomplicated; V03.90XA Pedestrian on foot injured in collision with car, pick-up truck or van, unspecified whether traffic or nontraffic accident, initial encounter; Z79.01 Long term (current) use of anticoagulants; J44.9 Chronic obstructive pulmonary disease, unspecified; B20 Human immunodeficiency virus [HIV] disease; Z85.72 Personal history of non-Hodgkin lymphomas; F17.210 Nicotine dependence, cigarettes, uncomplicated
CPT/HCPCS: 70450; 72125; 80053; 80307; 85025; 96372; 99285; J1630; J2250; J3411; J3490; J7030

== ENCOUNTER 2022-05-03 19:04 | Emergency (ER) | payer MEDICARE, MEDICAID, SELFPAY ==
--- NOTE | 2022-05-03 | CTR_ITS ---
PROCEDURE INFORMATION: Exam: CT Head Without Contrast Exam date and time: 05/03/2022 7:04 PM Age: 61 years old Clinical indication: Altered mental status/memory loss; Confusion or disorientation; Additional info: AMS, ETOH, high blood sugar TECHNIQUE: Imaging protocol: Computed tomography of the head without contrast. Radiation optimization: All CT scans at this facility use at least one of these dose optimization techniques: automated exposure control; mA and/or kV adjustment per patient size (includes targeted exams where dose is matched to clinical indication); or iterative reconstruction. COMPARISON: CT head wo con* [id number] 02/23/2022 8:27 PM RADIATION DOSE METRICS: Total DLP (mGy-cm): 1514.48 FINDINGS: Brain: Acute/subacute subdural hematoma noted along the right diamond convexity measuring up to 1 cm in transverse dimension. Mild [id number]-hp-[id number] midline shift of 2-3 mm. No brain herniation. Mild diffuse cerebral atrophy. Cerebral ventricles: No ventriculomegaly. Paranasal sinuses: Visualized sinuses are unremarkable. No fluid levels. Mastoid air cells: Visualized mastoid air cells are well aerated. Bones/joints: Unremarkable. No acute fracture. Soft tissues: Unremarkable. CT/CT head wo con* [id number] IMPRESSION: Acute/subacute subdural hematoma along the right diamond convexity measuring up to 1 cm in transverse dimension. There is mild pzdci-hw-rzpb midline shift of 2-3 mm.
[2022-05-03 19:05] VITALS: BP 138/91; PULSE 93; RESP 17; TEMP 36.6; O2SAT 88; BMI 22.3
--- NOTE | 2022-05-03 19:07 | ED_ITS ---
HPI - Altered Mental Status General: Chief Complaint: Neuro Symptoms/Deficit Stated Complaint: AMS/ETOH Time Seen by Provider: 05/03/22 19:06 Limitations: altered mental status History of Present Illness: Mr. Almanzar is a 61-year-old gentleman who presents to the emergency department due to altered mental status. History is otherwise limited by patient's degree of altered mental status. EMS notes asymmetric pupils. Patient does endorse alcohol consumption today. Review of Systems General: Reports: ROS unobtainable due to mental status PFSH ED PFSH: Medical History Alcohol dependence Alcohol use disorder Anorexia Atrial fibrillation Closed fractures involving multiple regions of right lower extremity Colon polyps COPD (chronic obstructive pulmonary disease) Severe COPD Deliberate medication overdose Depression Depressive disorder Diverticulitis / Diverticulosis GI bleed Was taken off Coumadin for a month in 2015 after a bleeding gastric ulcer, currently on Eliquis History of peptic ulcer disease HIV (human immunodeficiency virus infection) Hypogonadism Liver tumor Lymphoma 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 No evidence of recurrence, currently getting [employer] 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 prophylaxis with intrathecal methotrexate with prophylactic radiation to right testicle, CHOP treatment Major depressive disorder Meningitis Orchialgia Posttraumatic stress disorder Pulmonary embolism DVT of right leg, 2009 Pulmonary hypertension After PE Suicide attempt Surgical History H/O colonoscopy 2001 -diverticulosis, colon polyps / 2005 -diverticulosis, small telangiectasia / 01/2016 -diverticulosis with intrinsic stenosis and sigmoid H/O esophagogastroduodenoscopy 2005 -reflux esophagitis, superficial gastric erosions with hemorrhagic gastritis, duodenitis /2008 -reflux esophagitis, gastritis, small chronic gastric ulcer H/O hemorrhoidectomy History of orchiectomy, unilateral L -- diffuse large B-cell lymphoma Family History Other No pertinent family history Social History Smoking and tobacco status: current every day smoker (1 ppd) cigarettes Packs smoked per day: 1 Alcohol intake: current Lives independently: Yes Housing: House Physical Exam Const: COMMON NORMALS: alert GENERAL APPEARANCE: well developed and odor of alcohol detected HENMT: COMMON NORMALS: normocephalic HEAD & SCALP: normocephalic THROAT: posterior oropharynx normal OTHER: No fraser signs or raccoon eyes. No otorrhea or rhinorrhea. Jaw alignment normal. Dentition baseline. No obvious bony step-offs. No septal hematoma. No evidence of ocular entrapment. Eye: COMMON NORMALS: conjunctivae normal CONJUNCTIVA: Yes conjunctivae normal SCLERA: sclerae normal Neck/C-Spine: COMMON NORMALS: supple GENERAL: Yes trachea midline Resp: COMMON NORMALS: clear to auscultation bilaterally EFFORT & INSPECTION: Yes able to speak in complete sentences AUSCULTATION: clear to auscultation bilaterally Cardio: COMMON NORMALS: regular rate and regular rhythm RATE: regular rate RHYTHM: regular rhythm GI: COMMON NORMALS: Soft to palpation PALPATION: Yes Soft to palpation, Yes Tenderness to palpation present (GI), No Guarding due to palpation present (GI) and No Rigid due to palpation Extremity: GENERAL: Yes normal exam except as noted and No edema Neuro: COMMON NORMALS: moves all extremities SENSORIUM/ORIENTATION: Yes alert and Yes Orientation impaired Psych: MEMORY/COGNITION: Yes memory grossly impaired OTHER: Appears clinically intoxicated Course Vital Signs: Vital signs: Vital Signs Temperature 97.9 F 05/03/22 19:05 Pulse Rate 80 05/03/22 21:57 Respiratory Rate 16 05/03/22 21:57 Blood Pressure 118/86 05/03/22 21:57 Pulse Oximetry 96 05/03/22 21:57 Oxygen Delivery Me thod 05/03/22 19:05 MDM - Altered Mental Status Medical Decision Making 61-year-old male with history of alcohol abuse presenting to the emergency department with altered mental status and possible injury related to being found down. Head to toe exam performed. Mental status is abnormal consistent with alcohol toxidrome. Laboratory studies similar to prior, patient is supposed to be on Eliquis however I do not believe that he is taking it and INR is not elevated. Chronic hypokalemia. Significantly elevated alcohol. Imaging notable for subdural hematoma up to 1 cm with 2 to 3 mm of midline shift. No other acute traumatic injury identified on CT imaging that was completed while transfer pending. Patient excepted by Dr. Ferguson to [facility] ED for neurosurgical evaluation. Medical Records I reviewed the patient's medical records. Lab Data I reviewed the patient's lab results. : 05/03/22 19:23 05/03/22 19:[address] 05/03/22 00:00 IMPRESSION: Acute/subacute subdural hematoma along the right diamond convexity measuring up to 1 cm in transverse dimension. There is mild ruumf-pw-eptt midline shift of 2-3 mm. ADDENDUM: 05/03/222038 THIS REPORT CONTAINS FINDINGS THAT MAY BE CRITICAL TO PATIENT CARE. The findings were verbally communicated via telephone conference with Bryant Lieberman at 8:38 PM CDT on 05/03/2022. The findings were acknowledged and understood. Cervical Spine CT 05/03/22 20:41 IMPRESSION: No acute findings. Chest/Abdomen/Pelvis CT 05/03/22 20:41 IMPRESSION: 1. Emphysematous changes. 2. Bilateral dependent atelectasis. 3. Cardiomegaly. 4. Coronary artery atherosclerotic calcifications. IMPRESSION: 1. Negative for acute traumatic injury to the abdomen or pelvis. 2. Hepatic steatosis. 3. Diverticulosis without diverticulitis. 4. Cholelithiasis. Laboratory Results WBC 5.5 10^3/uL (4.0-10.0) 05/03/22 19: RBC 4.73 10^6/uL (4.1-5.3) 05/03/22 19: Hgb 15.5 g/dL (11.7-16.6) 05/03/22 19: Hct 44.3 % (42.0-52.0) 05/03/22: MCV 93.7 fl (80-94) 05/03/22 19: MCH 32.8 pg (28.0-34.0) 05/03/22 19: MCHC 35.0 g/dL (30.0-36.0) 05/03/22 19: RDW 13.9 % (12.1-15.1) 05/03/22 19: Plt Count 127 10^3/cmm (130-400) L 05/03/22 19: MPV 9.8 fL (7.4-10.4) 05/03/22: Neut % (Auto) 23.5 % 05/03/22 19: Lymph % (Auto) 66.1 % 05/03/22 19: Hartley % (Auto) 8.0 % 05/03/22 19: Eos % (Auto) 0.7 % 05/03/22 19: Baso % (Auto) 1.5 % 05/03/22: Neut # (Auto) 1.30 10^3/uL (1.8-7.7) L 05/03/22: Lymph # (Auto) 3.6 10^3/uL (0.8-4.8) 05/03/22: Hartley # (Auto) 0.4 10^3/uL (0.2-0.9) 05/03/22: Eos # (Auto) 0.0 10^3/uL (0.0-0.8) 05/03/22: Baso # (Auto) 0.1 10^3/uL (0.0-0.1) 05/03/22: Nucleated RBC % (auto) 0 % 05/03/22: Nucleated RBCs # 0.0 /100WBC 05/03/22 19: PT 14.00 SECONDS (12.1-14.9) 05/03/22 19: INR 1.05 (0.8-1.2) 05/03/22 19: APTT 31.9 SECONDS (23.9-36.7) 05/03/22 19: Sodium 139 mmol/L (136-145) 05/03/22 19: Potassium 2.5 mmol/L (3.5-5.1) L* 05/03/22 19: Chloride 93 mmol/L (98-107) L 05/03/22 19: Carbon Dioxide 33 mmol/L (22-29) H 05/03/22 19: Anion Gap 15.5 (5-19) 05/03/22 19: BUN 2 mg/dL (8-23) L 05/03/22 19:23 Creatinine 0.6 mg/dL (0.7-1.2) L 05/03/22 19:23 GFR Calculation 137.4 mL/min (90-130) H 05/03/22 19:23 Glucose 95 mg/dL (65-115) 05/03/22 19:23 Calculated Osmolality 284 mOsm/kg (285-295) L 05/03/22 19:23 Calcium 7.8 mg/dL (8.5-10.5) L 05/03/22 19:23 Total Bilirubin 1.1 mg/dL (0.15-1.2) 05/03/22 19:23 AST 205 U/L (0-40) H 05/03/22 19:23 ALT 75 U/L (0-41) H 05/03/22 19:23 Alkaline Phosphatase 155 U/L (40-130) H 05/03/22 19:23 Total Protein 7.6 g/dL (6.6-8.7) 05/03/22 19: Albumin 3.1 g/dL (3.5-5.2) L 05/03/22 19:23 Globulin 4.5 g/dL (1.3-4.6) 05/03/22 19: TSH 1.46 uIU/mL (0.27-4.20) 05/03/22 19:23 Salicylates < 0.3 mg/dL (3-10) L 05/03/22 19:23 Acetaminophen < 5.0 ug/mL (10-30) L 05/03/22 19:23 Ethyl Alcohol 496 mg/dL (0-10) H* 05/03/22 19:21 Critical Care Time Critical Care Time: Critical Care Time: Yes Total Critical Care Time: 45 Attestation: Due to a high probability of clinically significant, possibly life threatening deterioration, the patient required my highest level of attention and preparedness to intervene emergently and I personally spent this critical care time directly and personally managing the patient. This critical care time included obtaining a history; examining the patient; pulse oximetry; ordering and review of laboratory and imaging studies; arranging urgent treatment with development of a management plan; evaluation of patient's response to treatment; frequent reassessment; and, discussions with other providers as applicable. It was exclusive of separately billable procedures. Primary system involved is cerebrovascular Discharge Plan Discharge Patient Disposition: Transfer to ED Clinical Impression: Traumatic intracranial hemorrhage, Acute alteration in mental status, Alcohol abuse Condition: Stable Prescriptions: No Action (DME) Cam Walker See Rx Instructions .ROUTE .MEDSUPPLY Qty: 1 0RF Rx Instructions: As directed trazodone 150 mg tablet 150 - 300 mg PO BEDTIME Qty: 60 1RF albuterol sulfate [Ventolin HFA] 90 mcg/actuation HFA aerosol inhaler 2 inh inhalation 6XD PRN (Reason: shortness of breath or wheezing) Qty: 8.5 0RF multivitamin Tablet 1 tab PO DAILY Opsumit 10 mg tablet 10 mg PO DAILY sildenafil (pulm.hypertension) 20 mg tablet 20 mg PO TID Dovato 50-300 mg tablet 1 tab PO QAM mirtazapine 15 mg tablet 15 mg PO BEDTIME testosterone 20.25 mg/1.25 gram (1.62 %) gel in metered-dose pump 2 pump topical QAM naltrexone 50 mg Tablet 50 mg PO DAILY 30 Days Qty: 30 1RF Rx Instructions: Continue daily but discontinue when Vivitrol initiated metoprolol tartrate 25 mg Tablet 25 mg PO BID@0900,2100 30 Days Qty: 60 1RF Vivitrol 380 mg suspension,extended rel recon 380 mg IM ONCE 28 Days Qty: 1 2RF Rx Instructions: Began in 27 days when he has doctor's appointment. Discontinue oral naltre xone once injection started. Eliquis 5 mg tablet 5 mg PO BID Qty: 60 0RF sulfamethoxazole-trimethoprim 800-160 mg tablet 1 tab PO .MON,WED,FRI prednisolone acetate 1 % drops,suspension 1 drp ophthalmic (eye) BID Rx Instructions: right eye Mytesi 125 mg tablet,delayed release (DR/EC) 125 mg PO BID albuterol sulfate 90 mcg/actuation HFA aerosol inhaler 2 inh INHALATION Q4H PRN (Reason: shortness of breath or wheezing) Qty: 18 0RF potassium chloride 20 mEq tablet extended release 20 meq PO BID Qty: 6 0RF Referrals: Rasheed Spivey MD [Primary Care Provider] - Coding Level of Care Code ED Upsetting Machine Operator for Chg Fwd Exam Comprehensive
--- NOTE | 2022-05-03 19:22 | ECG_ITS ---
[facility] Test Date: 2022-05-03 Pat Name: Flakito Almanzar Department: Room: Gender: Male Title Searcher: : 1960 Requested By: Bryant Lieberman Order Number: [id number] Barros MD: Lisa Agustin M.D. Measurements Intervals [place] Rate: 91 P: 81 AK: 175 QRS: 51 QRSD: 110 T: 87 QT: 422 QTc: 519 Interpretive Statements SINUS RHYTHM WITH OCCASIONAL SUPRAVENTRICULAR PREMATURE COMPLEXES MODERATE ST DEPRESSION [0.05+ mV ST DEPRESSION] PROLONGED QT INTERVAL Compared to ECG 01/22/2022 20:06:33 ST (T wave) deviation now present Prolonged QT interval now present Sinus tachycardia no longer present T-wave abnormality no longer present Electronically Signed On 05-04-2022 12:52:48 CDT by Lisa Agustin M.D. [id number]
[2022-05-03 19:45] LABS: Basophils # 0.1 10^3/uL (0.0-0.1); Basophils % 1.5 %; Eosinophils % 0.7 %; Hematocrit 44.3 % (42.0-52.0); Hemoglobin 15.5 g/dL (11.7-16.6); Lymphocytes # 3.6 10^3/uL (0.8-4.8); Lymphocytes % 66.1 %; Mean Corpuscular Hemoglobin 32.8 pg (28.0-34.0); Mean Corpuscular Volume 93.7 fl (80-94); Mean Platelet Volume 9.8 fL (7.4-10.4); Monocytes # 0.4 10^3/uL (0.2-0.9); Neutrophils % 23.5 %; Nucleated Red Blood Cells % 0 %; Platelet Count 127 10^3/cmm (130-400); Red Blood Count 4.73 10^6/uL (4.1-5.3); Red Cell Distribution Width 13.9 % (12.1-15.1); White Blood Count 5.5 10^3/uL (4.0-10.0)
[2022-05-03 20:16] LABS: Alanine Aminotransferase 75 U/L (0-41); Albumin Level 3.1 g/dL (3.5-5.2); Alkaline Phosphatase 155 U/L (40-130); Aspartate Amino Transferase 205 U/L (0-40); Blood Urea Nitrogen 2 mg/dL (8-23); Calcium 7.8 mg/dL (8.5-10.5); Carbon Dioxide 33 mmol/L (22-29); Globulin 4.5 g/dL (1.3-4.6); Glomerular Filtration Rate 137.4 mL/min (90-130); Glucose 95 mg/dL (65-115); Thyroid Stimulating Hormone 1.46 uIU/mL (0.27-4.20); Total Bilirubin 1.1 mg/dL (0.15-1.2); Total Protein 7.6 g/dL (6.6-8.7)
--- NOTE | 2022-05-03 20:41 | CTR_ITS ---
PROCEDURE INFORMATION: Exam: CT Chest Without Contrast; Diagnostic Exam date and time: 05/03/2022 9:10 PM Age: 61 years old Clinical indication: Injury or trauma; Fall; Luq; Blunt trauma (contusions or hematomas); Additional info: AMS, questionable fall, ETOH TECHNIQUE: Imaging protocol: Diagnostic computed tomography of the chest without contrast. Radiation optimization: All CT scans at this facility use at least one of these dose optimization techniques: automated exposure control; mA and/or kV adjustment per patient size (includes targeted exams where dose is matched to clinical indication); or iterative reconstruction. COMPARISON: CT angio chest PE protcl [id number] 12/28/2021 5:06 PM RADIATION DOSE METRICS: Total DLP (mGy-cm): 639.28 FINDINGS: Lungs: Emphysematous changes. Bilateral dependent atelectasis. Pleural spaces: Unremarkable. No pneumothorax. No pleural effusion. Heart: Cardiomegaly. Coronary artery atherosclerotic calcifications. Lymph nodes: Unremarkable. No enlarged lymph nodes. Vasculature: Unremarkable. No aortic aneurysm. Bones/joints: Unremarkable. No acute fracture. Soft tissues: Unremarkable. PROCEDURE INFORMATION: Exam: CT Abdomen And Pelvis Without Contrast Exam date and time: 05/03/2022 9:10 PM Age: 61 years old Clinical indication: Injury or trauma; Fall; Luq; Blunt trauma (contusions or hematomas); Additional info: AMS, questionable fall, ETOH TECHNIQUE: Imaging protocol: Computed tomography of the abdomen and pelvis without contrast. Radiation optimization: All CT scans at this facility use at least one of these dose optimization techniques: automated exposure control; mA and/or kV adjustment per patient size (includes targeted exams where dose is matched to clinical indication); or iterative reconstruction. COMPARISON: CT chest abd pel w con* 02/10/2021 4:09 PM RADIATION DOSE METRICS: Total DLP (mGy-cm): 639.28 FINDINGS: Liver: Hepatic steatosis. Gallbladder and bile ducts: Cholelithiasis. Pancreas: Normal. No ductal dilation. Spleen: Normal. No splenomegaly. Adrenal glands: Normal. No mass. Kidneys and ureters: Normal. No hydronephrosis. Stomach and bowel: Diverticulosis without diverticulitis. Appendix: No evidence of appendicitis. Intraperitoneal space: Unremarkable. No free air. No significant fluid collection. Vasculature: Unremarkable. No abdominal aortic aneurysm. Lymph nodes: Unremarkable. No enlarged lymph nodes. Urinary bladder: Unremarkable as visualized. Reproductive: Unremarkable as visualized. Bones/joints: Unremarkable. No acute fracture. Soft tissues: Unremarkable. CT/CT chest abdpel [id number] IMPRESSION: 1. Emphysematous changes. 2. Bilateral dependent atelectasis. 3. Cardiomegaly. 4. Coronary artery atherosclerotic calcifications. IMPRESSION: 1. Negative for acute traumatic injury to the abdomen or pelvis. 2. Hepatic steatosis. 3. Diverticulosis without diverticulitis. 4. Cholelithiasis.
--- NOTE | 2022-05-03 20:41 | CTR_ITS ---
PROCEDURE INFORMATION: Exam: CT Cervical Spine Without Contrast Exam date and time: 05/03/2022 9:05 PM Age: 61 years old Clinical indication: Injury or trauma; Fall; Blunt trauma; Additional info: AMS, possible fall earlier, ETOH, high blood sugar TECHNIQUE: Imaging protocol: Computed tomography of the cervical spine without contrast. Radiation optimization: All CT scans at this facility use at least one of these dose optimization techniques: automated exposure control; mA and/or kV adjustment per patient size (includes targeted exams where dose is matched to clinical indication); or iterative reconstruction. COMPARISON: CT cervical spin wo con* [id number] 02/23/2022 8:29 PM RADIATION DOSE METRICS: Total DLP (mGy-cm): 251.47 FINDINGS: Bones/joints: No acute fracture. Normal alignment. No significant disc protrusion. No severe spinal canal stenosis. Lungs: Lung apices are normal. Soft tissues: Unremarkable. CT/CT cervical spin wo con* [id number] IMPRESSION: No acute findings.
[2022-05-03 20:42] LABS: Chloride 93 mmol/L (98-107); Osmolality Calculated 284 mOsm/kg (285-295)
[2022-05-03 20:48] LABS: Acetaminophen < 5.0 ug/mL (10-30); Creatinine Clr Calc Pharmacy 137.4259; Salicylate < 0.3 mg/dL (3-10); Sodium 139 mmol/L (136-145)
[2022-05-03 20:49] LABS: Anion Gap 15.5 (5-19); Potassium 2.5 mmol/L (3.5-5.1)
[2022-05-03 20:58] LABS: INR 1.05 (0.8-1.2)
[2022-05-03 20:59] LABS: Partial Thromboplastin Time 31.9 SECONDS (23.9-36.7)
[2022-05-03 21:16] LABS: Alcohol Level 496 mg/dL (0-10)
[2022-05-03 21:57] VITALS: BP 118/86; PULSE 80; RESP 16; O2SAT 96
[2022-05-03] MEDS: lidocaine 1% 5 ML in potassium chloride premix 100 ML 25 ML IV (21:57)
== END 2022-05-03 22:01 ==
PROVIDERS: Emergency Provider Emergency Medicine; PCP Family Medicine
DX: S06.30AA Unspecified focal traumatic brain injury with loss of consciousness status unknown, initial encounter (principal); F10.10 Alcohol abuse, uncomplicated; R41.82 Altered mental status, unspecified; Z79.01 Long term (current) use of anticoagulants; F17.210 Nicotine dependence, cigarettes, uncomplicated; J44.9 Chronic obstructive pulmonary disease, unspecified; B20 Human immunodeficiency virus [HIV] disease; Z85.72 Personal history of non-Hodgkin lymphomas; Z86.711 Personal history of pulmonary embolism; X58.XXXA Exposure to other specified factors, initial encounter
CPT/HCPCS: 70450; 71250; 72125; 74176; 80053; 80307; 84443; 85025; 85610; 85730; 93005; 99285; J3480

== ENCOUNTER 2022-06-26 15:08 | Emergency (ER) | payer MEDICARE, MEDICAID, SELFPAY ==
[2022-06-26 15:32] VITALS: BP 91/60; PULSE 96; TEMP 36.4
[2022-06-26 15:42] VITALS: PULSE 90; RESP 14; O2SAT 90
--- NOTE | 2022-06-26 15:44 | W.ED.ALCOHOL ---
HPI - Alcohol General: Chief Complaint: Alcohol Stated Complaint: ETOH ON BOARD/ INCOHERENT Time Seen by Provider: 06/26/22 15:15 Source: patient and EMS Mode of arrival: EMS History of Present Illness: 61-year-old male presents emergency room via ambulance. He was found on the garage floor where he potentially had been laying all night he become intoxicated and fell off of a cot onto the floor without his oxygen. He is normally supposed be on 4 L/min patient is unable to ambulate. When he arrived here his sats had improved with a reinstitution of supplemental oxygen however he was disoriented appears acutely intoxicated and is very uncooperative. He does begin to answer questions which she was not doing earlier with EMS when he was initially hypoxic. His clothing is very wet. He repeatedly states he wants to leave but the best he can do is sit up in the bed and even then only is able to do that for a few seconds at a time and then collapses back down onto the cot. MD complaint: alcohol intoxication Last drink: Unknown Chronic alcohol use: Yes Previous visits for alcohol intoxication: Yes Recent trauma: Yes Associated symptoms: Deny abdominal pain, depression, diaphoresis, hematemesis, involuntary movements, melena, nausea, seizure-like activity, suicidal ideation, syncope or vomiting Treatments prior to arrival: other (Oxygen) Review of Systems Const: Denies: diaphoresis Card: Denies: syncope GI: Denies: abdominal pain, nausea, vomiting, hematemesis or melena Neuro: Denies: seizure-like activity or involuntary movements Psych: Denies: depression or suicidal ideation [facility] ED PFSH: Medical History Alcohol dependence Alcohol use disorder Anorexia Atrial fibrillation Closed fractures involving multiple regions of right lower extremity Colon polyps COPD (chronic obstructive pulmonary disease) Severe COPD Deliberate medication overdose Depression Depressive disorder Diverticulitis / Diverticulosis GI bleed Was taken off Coumadin for a month in 2015 after a bleeding gastric ulcer, currently on Eliquis History of peptic ulcer disease HIV (human immunodeficiency virus infection) Hypogonadism Liver tumor Lymphoma 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 No evidence of recurrence, currently getting RELIGION INSTRUCTOR prophylaxis with intrathecal methotrexate with prophylactic radiation to right testicle, CHOP treatment Major depressive disorder Meningitis Orchialgia Posttraumatic stress disorder Pulmonary embolism DVT of right leg, 2009 Pulmonary hypertension After PE Suicide attempt Surgical History H/O colonoscopy 2001 -diverticulosis, colon polyps / 2005 -diverticulosis, small telangiectasia / 01/2016 -diverticulosis with intrinsic stenosis and sigmoid H/O esophagogastroduodenoscopy 2005 -reflux esophagitis, superficial gastric erosions with hemorrhagic gastritis, duodenitis /2008 -reflux esophagitis, gastritis, small chronic gastric ulcer H/O hemorrhoidectomy History of orchiectomy, unilateral L -- diffuse large B-cell lymphoma Family History Other No pertinent family history Social History Smoking and tobacco status: current every day smoker (1 ppd) cigarettes Packs smoked per day: 1 Alcohol intake: current Lives independently: Yes Housing: House Physical Exam Const: GENERAL APPEARANCE: comfortable ORIENTATION/CONSCIOUSNESS: Yes awake HENMT: COMMON NORMALS: normocephalic, atraumatic and hearing grossly normal bilaterally HEAD & SCALP: normocephalic and atraumatic Resp: COMMON NORMALS: normal respiratory effort, No retractions, No use of accessory muscles and clear to auscultation bilaterally AUSCULTATION: clear to auscultation bilaterally Cardio: COMMON NORMALS: regular rate, regular rhythm and No murmurs present (Cardio) RATE: regular rate RHYTHM: regular rhythm GI: COMMON NORMALS: Soft to palpation and No hepatosplenomegaly present AUSCULTATION: Yes normoactive bowel sounds PALPATION: Yes Soft to palpation, No Tenderness to palpation present (GI), No Guarding due to palpation present (GI) and Yes No hepatosplenomegaly present Extremity: COMMON NORMALS: normal to inspection, capillary refill normal, no clubbing, cyanosis or edema, no calf tenderness and no pedal edema Skin: COMMON NORMALS: no rashes or lesions noted GENERAL SKIN EXAM: no rashes or lesions noted Course Vital Signs: Vital signs: Vital Signs Temperature 97.4 F L 06/26/22 16:29 Pulse Rate 84 06/26/22 16:34 Respiratory Rate 14 06/26/22 16:34 Blood Pressure 106/73 06/26/22 16:34 Pulse Oximetry 93 06/26/22 16:34 Oxygen Delivery Me thod 06/26/22 16:34 Oxygen Flow Rate 4 06/26/22 16:34 MDM - Alcohol Medical Decision Making Patient severely intoxicated CPK is not elevated is only mildly hypothermic at on that he was probably really down for that long. He is combative with staff argumentative he is cursing and yelling at them he does not want us to do anything. patient is highly tolerant of alcohol and even his current alcohol level he is awake and alert. After he had been here for a time he was able to get up and move himself to bedside commode and back to the bed he is refusing to allow any further evaluation he does not want to be admitted. I have no reason to force him to stay at this point. Offered him full evaluation he declines he wants to leave AMA. We will call his my mother hopefully she will be able to bring his home oxygen to take him home on strongly encouraged him to abstain from alcohol. He states he has no desire or intent to do so Medical Records I reviewed the patient's medical records. Lab Data I reviewed the patient's lab results. 06/26/22 15:30 06/26/22 15:30 Laboratory Results WBC 6.9 10^3/uL (4.0-10.0) 06/26/22 15:30 RBC 3.94 10^6/uL (4.1-5.3) L 06/26/22 15:30 Hgb 12.7 g/dL (11.7-16.6) 06/26/22 15:30 Hct 37.8 % (42.0-52.0) L 06/26/22 15:30 MCV 95.9 fl (80-94) H 06/26/22 15:30 MCH 32.2 pg (28.0-34.0) 06/26/22 15:30 MCHC 33.6 g/dL (30.0-36.0) 06/26/22 15:30 RDW 13.2 % (12.1-15.1) 06/26/22 15:30 Plt Count 208 10^3/cmm (130-400) 06/26/22 15:30 MPV 8.8 fL (7.4-10.4) 06/26/22 15:30 Neut % (Auto) 40.3 % 06/26/22 15:30 Lymph % (Auto) 48.0 % 06/26/22 15:30 Buchanan % (Auto) 7.1 % 06/26/22 15:30 Eos % (Auto) 3.0 % 06/26/22 15:30 Baso % (Auto) 1.3 % 06/26/22 15:30 Neut # (Auto) 2.78 10^3/uL (1.8-7.7) 06/26/22 15:30 Lymph # (Auto) 3.3 10^3/uL (0.8-4.8) 06/26/22 15:30 Buchanan # (Auto) 0.5 10^3/uL (0.2-0.9) 06/26/22 15:30 Eos # (Auto) 0.2 10^3/uL (0.0-0.8) 06/26/22 15:30 Baso # (Auto) 0.1 10^3/uL (0.0-0.1) 06/26/22 15:30 Nucleated RBC % (auto) 0 % 06/26/22 15:30 Nucleated RBCs # 0.0 /100WBC 06/26/22 15:30 Specimen Type Arterial 06/26/22 15:35 Sample Site Brachial, right 06/26/22 15:35 ABG pH 7.36 (7.35-7.45) 06/26/22 15:35 ABG pCO2 36.4 mmHg (35-45) 06/26/22 15:35 ABG pO2 67.6 mmHg (80.0-100.0) L 06/26/22 15:35 ABG HCO3 20.7 mmol/L (22-26) L 06/26/22 15:35 ABG O2 Saturation 92.3 06/26/22 15:35 ABG Base Excess -4.2 mmol/L (-2.0-2.0) L 06/26/22 15:35 Jean-Paul Test N/a 06/26/22 15:35 A-a O2 Gradient 18.4 mmHg (5-10) H 06/26/22 15:35 Hematocrit 39.9 % (42-52) L 06/26/22 15:35 Hgb O2 Saturation 85.6 % (95-100) L 06/26/22 15:35 Carboxyhemoglobin 6.7 %THgb (0.4-20.1) 06/26/22 15:35 Methemoglobin 0.6 % (0.4-1.5) 06/26/22 15:35 Total Hemoglobin 13.0 g/dL (14-18) L 06/26/22 15:35 Sodium 140.0 mmol/L (131-143) 06/26/22 15:35 Potassium 3.1 mmol/L (3.5-5.0) L 06/26/22 15:35 Glucose 105.0 mg/dL (70-115) 06/26/22 15:35 Ionized Calcium 1.2 mmol/L (1.1-1.4) 06/26/22 15:35 O2 Delivery Device Nc 06/26/22 15:35 O2 Liters/Min 4.0 % 06/26/22 15:35 FiO2 36.0 % 06/26/22 15:35 Therapeutic Recreation Specialist ID Amh 06/26/22 15:35 Sodium 135 mmol/L (136-145) L 06/26/22 15:30 Potassium 3.4 mmol/L (3.5-5.1) L 06/26/22 15:30 Chloride 100 mmol/L (98-107) 06/26/22 15:30 Carbon Dioxide 20 mmol/L (22-29) L 06/26/22 15:30 Anion Gap 18.4 (5-19) 06/26/22 15:30 BUN 4 mg/dL (8-23) L 06/26/22 15:30 Creatinine 0.5 mg/dL (0.7-1.2) L 06/26/22 15:30 GFR Calculation 169.6 mL/min (90-130) H 06/26/22 15:30 Glucose 100 mg/dL (65-115) 06/26/22 15:30 Calculated Osmolality 277 mOsm/kg (285-295) L 06/26/22 15:30 Lactic Acid 4.8 mmol/L (0.5-2.2) H* 06/26/22 15:30 Calcium 8.7 mg/dL (8.5-10.5) 06/26/22 15:30 Total Bilirubin 0.3 mg/dL (0.15-1.2) 12/05/22 15:30 AST 32 U/L (0-40) 06/26/22 15:30 ALT 19 U/L (0-41) 06/26/22 15:30 Alkaline Phosphatase 96 U/L (40-130) 06/26/22 15:30 Creatine Kinase 91 U/L (39-308) 06/26/22 15:30 Total Protein 7.2 g/dL (6.6-8.7) 06/26/22 15:30 Albumin 3.7 g/dL (3.5-5.2) 06/26/22 15:30 Globulin 3.5 g/dL (1.3-4.6) 06/26/22 15:30 Lipase 154 U/L (13-60) H 06/26/22 15:30 Ethyl Alcohol 351 mg/dL (0-10) H* 06/26/22 15:30 Discharge Plan Discharge Patient Disposition: Left Against Medical Advice Clinical Impression: Alcoholic intoxication, HIV (human immunodeficiency virus infection), COPD (chronic obstructive pulmonary disease) Condition: Stable Prescriptions: No Action (DME) Manohar Bernal See Rx Instructions .ROUTE .MEDSUPPLY Qty: 1 0RF Rx Instructions: As directed trazodone 150 mg tablet 150 - 300 mg PO BEDTIME Qty: 60 1RF albuterol sulfate [Ventolin HFA] 90 mcg/actuation HFA aerosol inhaler 2 inh inhalation 6XD PRN (Reason: shortness of breath or wheezing) Qty: 8.5 2RF multivitamin Tablet 1 tab PO DAILY Opsumit 10 mg tablet 10 mg PO DAILY sildenafil (pulm.hypertension) 20 mg tablet 20 mg PO TID Dovato 50-300 mg tablet 1 tab PO QAM mirtazapine 15 mg tablet 15 mg PO BEDTIME testosterone 20.25 mg/1.25 gram (1.62 %) gel in metered-dose pump 2 pump topical QAM naltrexone 50 mg Tablet 50 mg PO DAILY 30 Days Qty: 30 1RF Rx Instructions: Continue daily but discontinue when Vivitrol initiated metoprolol tartrate 25 mg Tablet 25 mg PO BID@0900,2100 30 Days Qty: 60 1RF Vivitrol 380 mg suspension,extended rel recon 380 mg IM ONCE 28 Days Qty: 1 2RF Rx Instructions: Began in 27 days when he has doctor's appointment. Discontinue oral naltrexone once injection started. Eliquis 5 mg tablet 5 mg PO BID Qty: 60 0RF sulfamethoxazole-trimethoprim 800-160 mg tablet 1 tab PO .MON,WED,FRI prednisolone acetate 1 % drops,suspension 1 drp ophthalmic (eye) BID Rx Instructions: right eye Mytesi 125 mg tablet,delayed release (DR/EC) 125 mg PO BID potassium chloride 20 mEq tablet extended release 20 meq PO BID Qty: 6 0RF Referrals: Rasheed Spivey MD [Primary Care Provider] - Activity Restrictions/Additional Instructions: Ox gatedYou are seen in the emergency room for altered mental status. You were time you were seen. You have refused care in the emergency room and decided to leave AMA. We do not think this is in your best interest if you wish you are welcome to return at any point in the future to be reevaluated. Strongly suggest you abstain from alcohol Coding Level of Care Code ED Pupil Personnel Worker for Osmin Ordonez
[2022-06-26 15:45] LABS: Basophils # 0.1 10^3/uL (0.0-0.1); Basophils % 1.3 %; Eosinophils # 0.2 10^3/uL (0.0-0.8); Hematocrit 37.8 % (42.0-52.0); Hemoglobin 12.7 g/dL (11.7-16.6); Lymphocytes # 3.3 10^3/uL (0.8-4.8); Mean Corpuscular HGB Conc 33.6 g/dL (30.0-36.0); Mean Corpuscular Hemoglobin 32.2 pg (28.0-34.0); Mean Corpuscular Volume 95.9 fl (80-94); Mean Platelet Volume 8.8 fL (7.4-10.4); Monocytes # 0.5 10^3/uL (0.2-0.9); Monocytes % 7.1 %; Neutrophils # 2.78 10^3/uL (1.8-7.7); Neutrophils % 40.3 %; Nucleated Red Blood Cells % 0 %; Platelet Count 208 10^3/cmm (130-400); Red Blood Count 3.94 10^6/uL (4.1-5.3); Red Cell Distribution Width 13.2 % (12.1-15.1); White Blood Count 6.9 10^3/uL (4.0-10.0)
[2022-06-26 15:46] LABS: ABG PCO2 36.4 mmHg (35-45); ABG PH Result 7.36 (7.35-7.45); Alveolar-Arterial Oxygen Gradi 18.4 mmHg (5-10); Arterial Blood Gas Hematocrit 39.9 % (42-52); Base Excess ABG -4.2 mmol/L (-2.0-2.0); Blood Gas Operator Identificat AMH; Blood Gas Sample Site Brachial, right; Blood Gas Sample Type Arterial; Carboxyhemoglobin 6.7 %THgb (0.4-20.1); HCO3 ABG 20.7 mmol/L (22-26); HGB O2 Sat 85.6 % (95-100); Ionized Calcium Level - ABG 1.2 mmol/L (1.1-1.4); Methemoglobin 0.6 % (0.4-1.5); Oxygen Device NC; Oxygen Saturation ABG 92.3; PO2 ABG 67.6 mmHg (80.0-100.0); Potassium Level - ABG 3.1 mmol/L (3.5-5.0)
[2022-06-26 16:01] LABS: Alanine Aminotransferase 19 U/L (0-41); Albumin Level 3.7 g/dL (3.5-5.2); Alkaline Phosphatase 96 U/L (40-130); Anion Gap 18.4 (5-19); Aspartate Amino Transferase 32 U/L (0-40); Blood Urea Nitrogen 4 mg/dL (8-23); Calcium 8.7 mg/dL (8.5-10.5); Carbon Dioxide 20 mmol/L (22-29); Chloride 100 mmol/L (98-107); Creatine Phosphokinase 91 U/L (39-308); Globulin 3.5 g/dL (1.3-4.6); Glomerular Filtration Rate 169.6 mL/min (90-130); Glucose 100 mg/dL (65-115); Lipase 154 U/L (13-60); Osmolality Calculated 277 mOsm/kg (285-295); Potassium 3.4 mmol/L (3.5-5.1); Sodium 135 mmol/L (136-145); Total Bilirubin 0.3 mg/dL (0.15-1.2); Total Protein 7.2 g/dL (6.6-8.7)
[2022-06-26 16:09] LABS: Alcohol Level 351 mg/dL (0-10); Lactic Sepsis W/Reflex 4.8 mmol/L (0.5-2.2)
[2022-06-26 16:29] VITALS: BP 85/57; PULSE 66; RESP 12; TEMP 36.3; O2SAT 92
[2022-06-26 16:34] VITALS: BP 106/73; PULSE 84; RESP 14; O2SAT 93
--- NOTE | 2022-06-26 16:45 | PC.PHAR ---
pt is unable to verify due to AMS - verified meds by last filled from [facility] and ext med history
[2022-06-26 17:28] LABS: Reflex Lactate Order REFLEX LACTIC ORDERD
== END 2022-06-26 17:50 | disposition left against medical advice (07) ==
PROVIDERS: Emergency Provider Family Medicine; PCP Family Medicine
DX: F10.129 Alcohol abuse with intoxication, unspecified (principal); B20 Human immunodeficiency virus [HIV] disease; J44.9 Chronic obstructive pulmonary disease, unspecified; Z53.21 Procedure and treatment not carried out due to patient leaving prior to being seen by health care provider; Z79.01 Long term (current) use of anticoagulants; F17.210 Nicotine dependence, cigarettes, uncomplicated; Z85.72 Personal history of non-Hodgkin lymphomas
CPT/HCPCS: 36600; 80051; 80053; 80307; 82330; 82550; 82805; 83605; 83690; 85025; 87040; 99285

== ENCOUNTER 2022-06-28 20:31 | Emergency (ER) | payer MEDICARE, MEDICAID, SELFPAY ==
[2022-06-28 20:41] VITALS: BP 119/84; PULSE 106; RESP 20; O2SAT 93; BMI 21.7
--- NOTE | 2022-06-28 20:55 | ED_ITS ---
HPI - Alcohol General: Chief Complaint: Alcohol Stated Complaint: ETOH/SOB Time Seen by Provider: 06/28/22 20:36 Source: patient and EMS Mode of arrival: EMS Limitations: no limitations History of Present Illness: 61-year-old male who is very well-known to the ER has a history of chronic alcoholism patient's family did call EMS today because he was asleep in the bed and they could not get him up patient is now awake and alert he is able answer my questions appropriately he said he has been drinking heavily today denies any head injuries denies any pain anywhere. Associated symptoms: Deny abdominal pain, depression, nausea or vomiting Review of Systems Const: Denies: fever(s), chills, body aches or change in appetite Eyes: Denies: blurry vision or eye discomfort ENMT: Denies: throat pain or dental pain Card: Denies: chest pain Resp: Denies: dyspnea GI: Denies: abdominal pain, nausea, vomiting or diarrhea : Denies: dysuria Musc: Denies: neck pain or back pain Skin/Breast: Denies: rash Neuro: Denies: headache(s) Psych: Denies: depression Obey/Lymph: Denies: easy bruising All/Imm: Denies: urticaria PFSH ED PFSH: Medical History Alcohol dependence Alcohol use disorder Anorexia Atrial fibrillation Closed fractures involving multiple regions of right lower extremity Colon polyps COPD (chronic obstructive pulmonary disease) Severe COPD Deliberate medication overdose Depression Depressive disorder Diverticulitis / Diverticulosis GI bleed Was taken off Coumadin for a month in 2015 after a bleeding gastric ulcer, currently on Eliquis History of peptic ulcer disease HIV (human immunodeficiency virus infection) Hypogonadism Liver tumor Lymphoma 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 No evidence of recurrence, currently getting COST [employer]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 with intrathecal methotrexate with prophylactic radiation to right testicle, CHOP treatment Major depressive disorder Meningitis Orchialgia Posttraumatic stress disorder Pulmonary embolism DVT of right leg, 2009 Pulmonary hypertension After PE Suicide attempt Surgical History H/O colonoscopy 2001 -diverticulosis, colon polyps / 2005 -diverticulosis, small telangiectasia / 01/2016 -diverticulosis with intrinsic stenosis and sigmoid H/O esophagogastroduodenoscopy 2005 -reflux esophagitis, superficial gastric erosions with hemorrhagic gastritis, duodenitis /2008 -reflux esophagitis, gastritis, small chronic gastric ulcer H/O hemorrhoidectomy History of orchiectomy, unilateral L -- diffuse large B-cell lymphoma Family History Other No pertinent family history Social History Smoking and tobacco status: current every day smoker (1 ppd) cigarettes Packs smoked per day: 1 Alcohol intake: current Lives independently: Yes Housing: House Physical Exam Const: COMMON NORMALS: no acute distress and patient oriented x3 GENERAL APPEARANCE: odor of alcohol detected HENMT: COMMON NORMALS: normocephalic and atraumatic HEAD & SCALP: normocephalic and atraumatic Eye: COMMON NORMALS: Equal, round and reactive pupils present and EOMs intact bilaterally PUPIL: Yes Equal, round and reactive pupils present Neck/C-Spine: COMMON NORMALS: full ROM and supple Chest: COMMONS NORMALS: normal inspection of the chest and normal palpation of entire chest wall Resp: COMMON NORMALS: normal respiratory effort, No retractions, No use of accessory muscles and clear to auscultation bilaterally AUSCULTATION: clear to auscultation bilaterally Cardio: COMMON NORMALS: regular rate, regular rhythm and No murmurs present (Cardio) RATE: regular rate RHYTHM: regular rhythm GI: COMMON NORMALS: Normal to inspection, nondistended, normoactive bowel sounds present, Soft to palpation, non-tender and no masses PALPATION: Yes Soft to palpation Extremity: COMMON NORMALS: normal to inspection and full ROM Neuro: COMMON NORMALS: patient oriented x3, moves all extremities and no focal motor deficits Psych: COMMON NORMALS: mental status grossly normal, Normal thought process present and cooperative THOUGHT PROCESS: Normal thought process present Skin: COMMON NORMALS: no rashes or lesions noted and no wounds GENERAL SKIN EXAM: no rashes or lesions noted Course Vital Signs: Vital signs: Vital Signs Pulse Rate 84 06/28/22 22:40 Respiratory Rate 16 06/28/22 22:40 Blood Pressure 105/65 06/28/22 22:40 Pulse Oximetry 91 06/28/22 22:40 Oxygen Delivery Me thod 06/28/22 22:40 Oxygen Flow Rate 3 06/28/22 22:40 MDM - Alcohol Medical Decision Making Patient presents with alcohol intoxication he is at his baseline here he is not altered no signs of head injury he is stable for discharge he is to follow-up with PCP and return if worsening. Lab Data 06/28/22 21:52 06/28/22 21:52 Laboratory Results WBC 4.8 10^3/uL (4.0-10.0) 06/28/22 21:52 RBC 3.94 10^6/uL (4.1-5.3) L 06/28/22 21:52 Hgb 12.7 g/dL (11.7-16.6) 06/28/22 21:52 Hct 37.6 % (42.0-52.0) L 06/28/22 21:52 MCV 95.4 fl (80-94) H 06/28/22 21:52 MCH 32.2 pg (28.0-34.0) 06/28/22 21:52 MCHC 33.8 g/dL (30.0-36.0) 06/28/22 21:52 RDW 13.2 % (12.1-15.1) 06/28/22 21:52 Plt Count 211 10^3/cmm (130-400) 06/28/22 21:52 MPV 8.4 fL (7.4-10.4) 06/28/22 21:52 Neut % (Auto) 30.0 % 06/28/22 21:52 Lymph % (Auto) 55.6 % 06/28/22 21:52 Stewart % (Auto) 10.4 % 06/28/22 21:52 Eos % (Auto) 1.9 % 06/28/22 21:52 Baso % (Auto) 2.1 % 06/28/22 21:52 Neut # (Auto) 1.45 10^3/uL (1.8-7.7) L 06/28/22 21:52 Lymph # (Auto) 2.7 10^3/uL (0.8-4.8) 06/28/22 21:52 Stewart # (Auto) 0.5 10^3/uL (0.2-0.9) 06/28/22 21:52 Eos # (Auto) 0.1 10^3/uL (0.0-0.8) 06/28/22 21:52 Baso # (Auto) 0.1 10^3/uL (0.0-0.1) 06/28/22 21:52 Nucleated RBC % (auto) 0 % 06/28/22 21:52 Nucleated RBCs # 0.0 /100WBC 06/28/22 21:52 Sodium 142 mmol/L (136-145) 06/28/22 21:52 Potassium 3.7 mmol/L (3.5-5.1) 06/28/22 21:52 Chloride 102 mmol/L (98-107) 06/28/22 21:52 Carbon Dioxide 28 mmol/L (22-29) 06/28/22 21:52 Anion Gap 15.7 (5-19) 06/28/22 21:52 BUN 4 mg/dL (8-23) L 06/28/22 21:52 Creatinine 0.6 mg/dL (0.7-1.2) L 06/28/22 21:52 GFR Calculation 137.4 mL/min (90-130) H 06/28/22 21:52 Glucose 96 mg/dL (65-115) 06/28/22 21:52 Calculated Osmolality 291 mOsm/kg (285-295) 06/28/22 21:52 Calcium 8.4 mg/dL (8.5-10.5) L 06/28/22 21:52 Total Bilirubin 0.3 mg/dL (0.15-1.2) 06/28/22 21:52 AST 36 U/L (0-40) 06/28/22 21:52 ALT 22 U/L (0-41) 06/28/22 21:52 Alkaline Phosphatase 110 U/L (40-130) 06/28/22 21:52 Total Protein 7.1 g/dL (6.6-8.7) 06/28/22 21:52 Albumin 3.7 g/dL (3.5-5.2) 06/28/22 21:52 Globulin 3.4 g/dL (1.3-4.6) 06/28/22 21:52 Ethyl Alcohol 305 mg/dL (0-10) H* 06/28/22 21:52 Discharge Plan Discharge Patient Disposition: Home Clinical Impression: Alcohol intoxication Condition: Stable Prescriptions: No Action (DME) Cam Walker See Rx Instructions .ROUTE .MEDSUPPLY Qty: 1 0RF Rx Instructions: As directed trazodone 150 mg tablet 150 - 300 mg PO BEDTIME Qty: 60 1RF albuterol sulfate [Ventolin HFA] 90 mcg/actuation HFA aerosol inhaler 2 inh inhalation 6XD PRN (Reason: shortness of breath or wheezing) Qty: 8.5 2RF multivitamin Tablet 1 tab PO DAILY Opsumit 10 mg tablet 10 mg PO DAILY sildenafil (pulm.hypertension) 20 mg tablet 20 mg PO TID Dovato 50-300 mg tablet 1 tab PO QAM mirtazapine 15 mg tablet 15 mg PO BEDTIME testosterone 20.25 mg/1.25 gram (1.62 %) gel in metered-dose pump 2 pump topical QAM naltrexone 50 mg Tablet 50 mg PO DAILY 30 Days Qty: 30 1RF Rx Instructions: Continue daily but discontinue when Vivitrol initiated metoprolol tartrate 25 mg Tablet 25 mg PO BID@0900,2100 30 Days Qty: 60 1RF Vivitrol 380 mg suspension,extended rel recon 380 mg IM ONCE 28 Days Qty: 1 2RF Rx Instructions: Began in 27 days when he has doctor's appointment. Discontinue oral naltrexone once injection started. Eliquis 5 mg tablet 5 mg PO BID Qty: 60 0RF sulfamethoxazole-trimethoprim 800-160 mg tablet 1 tab PO .MON,WED,FRI prednisolone acetate 1 % drops,suspension 1 drp ophthalmic (eye) BID Rx Instructions: right eye Mytesi 125 mg tablet,delayed release (DR/EC) 125 mg PO BID potassium chloride 20 mEq tablet extended release 20 meq PO BID Qty: 6 0RF Discharge Orders: Discharge ED (Routine); Ordered 06/28/22 Ordered By: Fanny Virgen Referrals: Rasheed Spivey MD [Primary Care Provider] - 1-3 days Discharge Diet: Advance as tolerated Discharge Activity: Resume usual activity Patient Instructions: Alcohol Intoxication (ED) Coding Level of Care Code ED Boat Engines Installer for Osmin Fwd Exam Comprehensive
[2022-06-28 22:12] LABS: Basophils # 0.1 10^3/uL (0.0-0.1); Basophils % 2.1 %; Eosinophils # 0.1 10^3/uL (0.0-0.8); Eosinophils % 1.9 %; Hematocrit 37.6 % (42.0-52.0); Hemoglobin 12.7 g/dL (11.7-16.6); Lymphocytes # 2.7 10^3/uL (0.8-4.8); Lymphocytes % 55.6 %; Mean Corpuscular HGB Conc 33.8 g/dL (30.0-36.0); Mean Corpuscular Hemoglobin 32.2 pg (28.0-34.0); Mean Corpuscular Volume 95.4 fl (80-94); Mean Platelet Volume 8.4 fL (7.4-10.4); Monocytes # 0.5 10^3/uL (0.2-0.9); Monocytes % 10.4 %; Neutrophils # 1.45 10^3/uL (1.8-7.7); Nucleated Red Blood Cells % 0 %; Platelet Count 211 10^3/cmm (130-400); Red Blood Count 3.94 10^6/uL (4.1-5.3); Red Cell Distribution Width 13.2 % (12.1-15.1); White Blood Count 4.8 10^3/uL (4.0-10.0)
[2022-06-28 22:38] LABS: Alanine Aminotransferase 22 U/L (0-41); Albumin Level 3.7 g/dL (3.5-5.2); Alkaline Phosphatase 110 U/L (40-130); Anion Gap 15.7 (5-19); Aspartate Amino Transferase 36 U/L (0-40); Blood Urea Nitrogen 4 mg/dL (8-23); Calcium 8.4 mg/dL (8.5-10.5); Carbon Dioxide 28 mmol/L (22-29); Chloride 102 mmol/L (98-107); Globulin 3.4 g/dL (1.3-4.6); Glomerular Filtration Rate 137.4 mL/min (90-130); Glucose 96 mg/dL (65-115); Osmolality Calculated 291 mOsm/kg (285-295); Potassium 3.7 mmol/L (3.5-5.1); Sodium 142 mmol/L (136-145); Total Bilirubin 0.3 mg/dL (0.15-1.2); Total Protein 7.1 g/dL (6.6-8.7)
[2022-06-28 22:40] VITALS: BP 105/65; PULSE 84; RESP 16; O2SAT 91
[2022-06-28 22:42] LABS: Alcohol Level 305 mg/dL (0-10)
== END 2022-06-28 23:22 | disposition home or self-care (01) ==
PROVIDERS: Emergency Provider Emergency Medicine; PCP Family Medicine
DX: F10.129 Alcohol abuse with intoxication, unspecified (principal); Z79.01 Long term (current) use of anticoagulants; Y90.8 Blood alcohol level of 240 mg/100 ml or more; F17.210 Nicotine dependence, cigarettes, uncomplicated; J44.9 Chronic obstructive pulmonary disease, unspecified; B20 Human immunodeficiency virus [HIV] disease; Z85.72 Personal history of non-Hodgkin lymphomas
CPT/HCPCS: 80053; 80307; 85025; 96372; 99284; J3411

== ENCOUNTER → 2022-11-07 09:45 | Outpatient (BNVA) | payer MEDICARE, MEDICAID, SELFPAY | PROVIDERS: PCP Family Medicine; Referring Provider Family Medicine; Visit Provider Dermatology | DX: L57.8 Other skin changes due to chronic exposure to nonionizing radiation (principal); C44.229 Squamous cell carcinoma of skin of left ear and external auricular canal; L81.4 Other melanin hyperpigmentation; B20 Human immunodeficiency virus [HIV] disease | CPT/HCPCS: 69100; 99203 ==

== ENCOUNTER → 2022-11-23 08:00 | Outpatient (BNVA) | payer MEDICARE, MEDICAID, SELFPAY | PROVIDERS: PCP Family Medicine; Visit Provider Dermatology | DX: C44.229 Squamous cell carcinoma of skin of left ear and external auricular canal (principal) | CPT/HCPCS: 13152; 17311 ==

== ENCOUNTER 2023-01-24 11:10 | Oncology outpatient (recurring) (ONCR) | payer MEDICARE, MEDICAID, SELFPAY ==
[2023-01-24 11:49] VITALS: BP 102/68; PULSE 90; RESP 18; TEMP 37.2; O2SAT 91
[2023-01-24 12:00] LABS: Eosinophils # 0.2 10^3/uL (0.0-0.8); Eosinophils % 5.5 %; Hemoglobin 13.7 g/dL (11.7-16.6); Lymphocytes # 1.2 10^3/uL (0.8-4.8); Lymphocytes % 37.7 %; Mean Corpuscular HGB Conc 32.6 g/dL (30.0-36.0); Mean Corpuscular Hemoglobin 30.5 pg (28.0-34.0); Mean Corpuscular Volume 93.5 fl (80-94); Mean Platelet Volume 8.7 fL (7.4-10.4); Monocytes # 0.3 10^3/uL (0.2-0.9); Monocytes % 10.7 %; Neutrophils # 1.39 10^3/uL (1.8-7.7); Neutrophils % 45.1 %; Nucleated Red Blood Cells % 0 %; Platelet Count 123 10^3/cmm (130-400); Red Blood Count 4.49 10^6/uL (4.1-5.3); Red Cell Distribution Width 14.5 % (12.1-15.1); White Blood Count 3.1 10^3/uL (4.0-10.0)
[2023-01-24 12:16] LABS: Alanine Aminotransferase 14 U/L (0-41); Albumin Level 3.8 g/dL (3.5-5.2); Alkaline Phosphatase 80 U/L (40-130); Anion Gap 11.9 (5-19); Aspartate Amino Transferase 21 U/L (0-40); Blood Urea Nitrogen 7 mg/dL (8-23); Calcium 8.6 mg/dL (8.5-10.5); Carbon Dioxide 26 mmol/L (22-29); Chloride 103 mmol/L (98-107); Glomerular Filtration Rate 98.3 mL/min (90-130); Glucose 101 mg/dL (65-115); Lactate Dehydrogenase 164 U/L (135-225); Osmolality Calculated 282 mOsm/kg (285-295); Potassium 3.9 mmol/L (3.5-5.1); Sodium 137 mmol/L (136-145); Total Bilirubin 0.5 mg/dL (0.15-1.2); Total Protein 6.8 g/dL (6.6-8.7)
== END 2023-02-19 23:59 | disposition home or self-care (01) ==
PROVIDERS: PCP Family Medicine; Visit Provider Nurse Practitioner Family
DX: Z08 Encounter for follow-up examination after completed treatment for malignant neoplasm (principal); Z85.72 Personal history of non-Hodgkin lymphomas; F17.210 Nicotine dependence, cigarettes, uncomplicated
CPT/HCPCS: 36415; 80053; 83615; 85025; 99213

== ENCOUNTER → 2023-03-05 15:31 | Outpatient (BNVA) | payer MEDICARE, MEDICAID, SELFPAY | PROVIDERS: PCP Family Medicine; Visit Provider Dermatology | DX: L82.1 Other seborrheic keratosis (principal); Z08 Encounter for follow-up examination after completed treatment for malignant neoplasm; Z85.828 Personal history of other malignant neoplasm of skin; L72.0 Epidermal cyst; D48.5 Neoplasm of uncertain behavior of skin; L57.0 Actinic keratosis | CPT/HCPCS: 10060; 11102; 17000; 17003; 99212 ==

== ENCOUNTER 2023-06-12 16:47 | Outpatient (CLI) | payer MEDICARE, MEDICAID, SELFPAY ==
--- NOTE | 2023-06-12 16:51 | CTR_ITS ---
PROCEDURE INFORMATION: Exam: CT Chest Without Contrast; Diagnostic Exam date and time: 06/12/2023 4:57 PM Age: 62 years old Clinical indication: Abnormal findings; Abnormal radiologic exam of lung or chest; Patient HX: HX of lymphoma; Additional info: Pulmonary infiltrate in right lung on xray TECHNIQUE: Imaging protocol: Diagnostic computed tomography of the chest without contrast. Radiation optimization: All CT scans at this facility use at least one of these dose optimization techniques: automated exposure control; mA and/or kV adjustment per patient size (includes targeted exams where dose is matched to clinical indication); or iterative reconstruction. REPORTING DATA: Count of CT and Cardiac NM exams in prior 12 months: This patient has received 0 known CTs and 0 known cardiac nuclear medicine studies in the 12 months prior to the current study. COMPARISON: [place] [id number] 05/03/2022 9:10 PM RADIATION DOSE METRICS: Total DLP (mGy-cm): 393.66 FINDINGS: Lungs: Moderate centrilobular emphysema. Linear atelectasis in the right middle lobe. Chronic atelectasis in the left lower lobe. Pleural spaces: Unremarkable. No pneumothorax. No pleural effusion. Heart: Unremarkable. No cardiomegaly. No pericardial effusion. Coronary arteries: Slight coronary artery calcifications. Lymph nodes: Visible nonspecific central adenopathy. Vasculature: Unremarkable. No aortic aneurysm. Bones/joints: Unremarkable. No acute fracture. Soft tissues: Unremarkable. CT/CT chest wo con [id number] IMPRESSION: Mild right middle lobe atelectasis. Chronic atelectasis in the left lower lobe. COMMENTS: In the absence of a history or active diagnosis of lung cancer, it is recommended that this patient with emphysema be evaluated for enrollment in a low dose CT lung cancer screening program.
== END 2023-06-12 16:48 | disposition home or self-care (01) ==
PROVIDERS: PCP Family Medicine; Visit Provider Internal Medicine Pulmonary Disease
DX: R91.8 Other nonspecific abnormal finding of lung field (principal); J98.11 Atelectasis; Z85.72 Personal history of non-Hodgkin lymphomas
CPT/HCPCS: 71250

== ENCOUNTER 2023-08-15 08:05 | Emergency (ER) | payer MEDICARE, MEDICAID, SELFPAY ==
[2023-08-15] VITALS (8 sets, daily range): BP systolic 104–120; BP diastolic 73–81; PULSE 92–109; RESP 16–17; TEMP 36.8; O2SAT 88–91; BMI 25.3
--- NOTE | 2023-08-15 08:17 | ECG_ITS ---
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 Measurements Intervals [place] Rate: 98 P: 44 GA: 161 QRS: 32 QRSD: 88 T: 64 QT: 363 QTc: 464 Interpretive Statements SINUS RHYTHM Compared to ECG 05/03/2022 19:22:35 ST (T wave) deviation no longer present Prolonged QT interval no longer present Electronically Signed On 08-15-2023 21:37:44 LOGGING CREW FOREMAN by Adilia Clay M.D. [id number] f
--- NOTE | 2023-08-15 08:17 | XR_ITS ---
WS: [id number] XR chest 1V portable [id number] REASON FOR EXAM: chest pain FINDINGS: Moderate tortuosity the thoracic aorta the heart is not significantly enlarged. Calcified granulomas disease in both hemithoraces. Enlargement of both hilar regions which presumably represents enlargement of the right and left pulmo nary arteries. This is been demonstrated on the multiple previous examinations and is unchanged. Main pulmonary and right and left pulmonary artery enlargement confirmed on previous CT scan 06/12/2023. No pulmonary venous congestion. Irregular aeration and lucency in the upper lungs compatible with central lobar emphysema. Also confi rmed with previous CT scan. Reticular interstitial opacities in both lower lung bases most notably on the right. Patient has demo nstrated chronic abnormality in the lung bases on previous examinations. Difficult to determine if th ere is superimposition of acute or subacute process. IMPRESSION: Central lobar emphysema with pulmonary artery hypertension. Stable. Cannot exclude early congestive failure or pneumonitis. Follow-up chest x-ray recommended as clinical ly warranted.
--- NOTE | 2023-08-15 08:18 | ED_ITS ---
HPI - Chest Pain 2 General: Chief Complaint: Chest Pain Stated Complaint: chest pain Time Seen by Provider: 08/15/23 08:13 Source: patient History of Present Illness: 61-year-old male with a known history of severe COPD and pulmonary hypertension. He has HIV and is chronically oxygen dependent. Comes in complaining of chest discomfort worse with a deep breath he has a slight increase in his baseline sputum production is moderately purulent he does not have any hemoptysis. He has had a low-grade fever. He normally wears liters at for oxygen at baseline. He has worsening chest discomfort with deep inspiration. MD complaint: chest pain Pertinent past history: other (Pulmonary hypertension) Onset (ago): day(s) Timing of current episode: episodic Pain location: substernal Pain radiation: none Severity: mild Quality: sharp Relieving factors: nothing Exacerbating factors: nothing Associated symptoms: Reports dyspnea and nausea; Deny abdominal pain, diaphoresis, fever(s), leg edema, palpitations, sense of impending doom, syncope, vomiting or other Review of Systems 2 Const: Denies: fever(s), chills or diaphoresis Card: Denies: chest pain, palpitations or syncope Resp: Reports: dyspnea, productive cough and wheezing GI: Reports: nausea; Denies: abdominal pain or vomiting : Denies: dysuria, urinary frequency or urinary urgency Musc: Denies: neck pain or back pain Skin/Breast: Denies: rash PFSH ED 2 PFSH: Medical History Alcohol dependence Closed fractures involving multiple regions of right lower extremity Suicide attempt Deliberate medication overdose Depression History of peptic ulcer disease Posttraumatic stress disorder GI bleed Was taken off Coumadin for a month in 2016 after a bleeding gastric ulcer, currently on Eliquis Anorexia COPD (chronic obstructive pulmonary disease) Severe COPD Pulmonary hypertension After PE Alcohol use disorder Major depressive disorder Meningitis Liver tumor Diverticulitis / Diverticulosis Hypogonadism Orchialgia Depressive disorder HIV (human immunodeficiency virus infection) Pulmonary embolism DVT of right leg, 2010 Colon polyps Atrial fibrillation Lymphoma 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 Treatment included 4 cycles of CHOP chemotherapy, completed in April 2003, along with DRAMATIC CRITIC prophylaxis with intrathecal methotrexate and prophylactic radiation to the right testicle. Surgical History H/O esophagogastroduodenoscopy 2005 -reflux esophagitis, superficial gastric erosions with hemorrhagic gastritis, duodenitis /2008 -reflux esophagitis, gastritis, small chronic gastric ulcer History of orchiectomy, unilateral L -- diffuse large B-cell lymphoma H/O hemorrhoidectomy H/O colonoscopy 2001 -diverticulosis, colon polyps / 2005 -diverticulosis, small telangiectasia / 01/2016 -diverticulosis with intrinsic stenosis and sigmoid Family History Other No pertinent family history Social History Smoking and tobacco/nicotine status: current every day tobacco/nicotine user (1 ppd) cigarettes Packs smoked per day: 1 Alcohol intake: current Substance/Drug Use: never Lives independently: Yes Housing: House Physical Exam 2 Const: GENERAL APPEARANCE: cooperative ORIENTATION/CONSCIOUSNESS: Yes awake, Yes oriented to person, Yes oriented to place and Yes oriented to time HENMT: COMMON NORMALS: normocephalic, atraumatic and hearing grossly normal bilaterally HEAD & SCALP: normocephalic and atraumatic Resp: COMMON NORMALS: normal respiratory effort, No retractions and No use of accessory muscles AUSCULTATION: wheezes and diminished lung sounds Cardio: COMMON NORMALS: regular rhythm and No murmurs present (Cardio) R ATE: tachycardic RHYTHM: regular rhythm GI: COMMON NORMALS: Soft to palpation and No hepatosplenomegaly present A USCULTATION: Yes normoactive bowel sounds PALPATION: Yes Soft to palpation, No Tenderness to palpation present (GI), No Guarding due to palpation present (GI) and Yes No hepatosplenomegaly present Extremity: COMMON NORMALS: normal to inspection, capillary refill normal, no clubbing, cyanosis or edema, no calf tenderness and no pedal edema Neuro: SENSORIUM/ORIENTATION: Yes oriented to person, Yes oriented to place and Yes oriented to time Skin: COMMON NORMALS: no rashes or lesions noted GENERAL SKIN EXAM: no rashes or lesions noted Course 2 Vital Signs: Vital signs: Vital Signs Temperature 98.2 F 08/15/23 08:11 Pulse Rate 109 H 08/15/23 12:30 Respiratory Rate 16 08/15/23 09:25 Blood Pressure 120/78 08/15/23 12:30 Pulse Oximetry 88 L 08/15/23 12:30 Oxygen Delivery Me thod Nasal Cannula 08/15/23 12:30 Oxygen Flow Rate 3 08/15/23 12:30 MDM - Chest Pain Medical Decision Making Improved with steroids and nebulizers. Laboratory studies reviewed no significant change in his troponins no acute ST changes on his EKG. Patient has chronic hypoxic respiratory failure due to his pulmonary hypertension but is well compensated at this time on his ABG. His sats are varying between 88-92 or 93 on his usual 3 L which I suspect is at his baseline he is feeling better will discharge patient home on steroid taper since he had a bit of a change in his sputum production will also put him on doxycycline use DuoNebs at home given a prescription for the DuoNebs as well as a small-volume nebulizer. Recheck if not improving or worsens Medical Records I reviewed the patient's medical records. Lab Data I reviewed the patient's lab results. 08/15/23 08:26 08/15/23 08:26 Laboratory Results WBC 7.41 10^3/uL (3.29-11.43) 08/15/23 08:26 RBC 5.23 10^6/uL (3.85-5.65) 08/15/23 08:26 Hgb 15.80 g/dL (11.27-16.99) 08/15/23 08:26 Hct 46.3 % (37-53) 08/15/23 08:26 MCV 88.5 fl (82-101) 08/15/23 08:26 MCH 30.2 pg (27-33) 08/15/23 08:26 MCHC 34.1 g/dL (30-55) 08/15/23 08:26 RDW 16.3 % (12.1-15.1) H 08/15/23 08:26 Plt Count 162 10^3/cmm (157-399) 08/15/23 08:26 MPV 8.7 fL (7.4-10.4) 08/15/23 08:26 Neut % (Auto) 70.9 % 08/15/23 08:26 Lymph % (Auto) 17.8 % 08/15/23 08:26 Kendall % (Auto) 9.3 % 08/15/23 08: Eos % (Auto) 0.9 % 08/15/23 08:26 Baso % (Auto) 0.8 % 08/15/23 08: Neut # (Auto) 5.25 10^3/uL (1.8-7.7) 08/15/23 08: Lymph # (Auto) 1.3 10^3/uL (0.8-4.8) 08/15/23 08: Kendall # (Auto) 0.7 10^3/uL (0.2-0.9) 08/15/23 08: Eos # (Auto) 0.1 10^3/uL (0.0-0.8) 08/15/23 08: Baso # (Auto) 0.1 10^3/uL (0.0-0.1) 08/15/23 08: Nucleated RBC % (auto) 0 % 08/15/23 08: Nucleated RBCs # 0.0 /100WBC 08/15/23 08:26 Specimen Type Arterial 08/15/23 09:10 Sample Site Radial, right 08/15/23 09:10 ABG pH 7.47 (7.35-7.45) H 08/15/23 09:10 ABG pCO2 33.1 mmHg (35-45) L 08/15/23 09:10 ABG pO2 53.5 mmHg (80.0-100.0) L 08/15/23 09:10 ABG HCO3 24.1 mmol/L (22-26) 08/15/23 09:10 ABG O2 Saturation 90.0 08/15/23 09:10 ABG Base Excess 1.1 mmol/L (-2.0-2.0) 08/15/23 09:10 Jean-Paul Test Pos 08/15/23 09:10 A-a O2 Gradient 7.1 mmHg (5-10) 08/15/23 09:10 Hematocrit 48.1 % (42-52) 08/15/23 09:10 Hgb O2 Saturation 85.8 % (95-100) L 08/15/23 09:10 Carboxyhemoglobin 4.0 %THgb (0.4-20.1) 08/15/23 09:10 Methemoglobin 0.6 % (0.4-1.5) 08/15/23 09:10 Total Hemoglobin 15.7 g/dL (14-18) 08/15/23 09:10 Sodium 136.0 mmol/L (131-143) 08/15/23 09:10 Potassium 3.7 mmol/L (3.5-5.0) 08/15/23 09:10 Glucose 107.0 mg/dL (70-115) 08/15/23 09:10 Ionized Calcium 1.2 mmol/L (1.1-1.4) 08/15/23 09:10 O2 Delivery Device Nc 08/15/23 09:10 O2 Liters/Min 4.5 % 08/15/23 09:10 Production Hardener ID Walci 08/15/23 09:10 Sodium 134 mmol/L (136-145) L 08/15/23 08:26 Potassium 3.9 mmol/L (3.5-5.1) 08/15/23 08:26 Chloride 101 mmol/L (98-107) 08/15/23 08:26 Carbon Dioxide 22 mmol/L (22-29) 08/15/23 08:26 Anion Gap 15.9 (5-19) 08/15/23 08:26 BUN 8 mg/dL (8-23) 08/15/23 08:26 Creatinine 0.7 mg/dL (0.7-1.2) 08/15/23 08:26 GFR Calculation 114.3 mL/min (90-130) 08/15/23 08:26 Glucose 115 mg/dL (65-115) 08/15/23 08:26 Calculated Osmolality 277 mOsm/kg (285-295) L 08/15/23 08:26 Calcium 9.1 mg/dL (8.5-10.5) 08/15/23 08:26 Total Bilirubin 1.4 mg/dL (0.15-1.2) H 08/15/23 08:26 AST 20 U/L (0-40) 08/15/23 08:26 ALT 14 U/L (0-41) 08/15/23 08:26 Alkaline Phosphatase 98 U/L (40-130) 08/15/23 08:26 Troponin T Baseline 20 ng/L (0-15) H 08/15/23 08:26 Troponin T 120 Minute 14.73 ng/L (0-15) 08/15/23 10:26 Delta Troponin T -5.27 ABS# (0-10) L 08/15/23 10:26 Total Protein 7.1 g/dL (6.6-8.7) 08/15/23 08:26 Albumin 4.2 g/dL (3.5-5.2) 08/15/23 08:26 Globulin 2.9 g/dL (1.3-4.6) 08/15/23 08:26 Ethyl Alcohol < 10 mg/dL (0-10) 08/15/23 08:26 All radiology interpretation(s) finalized by discharge Discharge Plan Discharge Patient Disposition: Home Clinical Impression: COPD (chronic obstructive pulmonary disease), Pulmonary arterial hypertension, Acute exacerbation of chronic obstructive pulmonary disease Condition: Stable Prescriptions: New doxycycline hyclate 100 mg capsule 100 mg PO BID 10 Days Qty: 20 0RF ipratropium-albuterol 0.5 mg-3 mg(2.5 mg base)/3 mL solution for nebulization 3 ml inhalation Q4H PRN (Reason: shortness of breath or wheezing) Qty: 90 0RF dexamethasone 6 mg tablet 6 mg PO DAILY Qty: 7 0RF No Action albuterol sulfate [Ventolin HFA] 90 mcg/actuation HFA aerosol inhaler 2 inh inhalation 6XD PRN (Reason: shortness of breath or wheezing) Qty: 8.5 2RF multivitamin Tablet 1 tab PO QAM Opsumit 10 mg tablet 10 mg PO QAM sildenafil (pulm.hypertension) 20 mg tablet 20 mg PO TID Dovato 50-300 mg tablet 1 tab PO QAM mirtazapine 15 mg tablet 15 mg PO BEDTIME testosterone 20.25 mg/1.25 gram (1.62 %) gel in metered-dose pump 2 pump topical QAM fluconazole 50 mg tablet 50 mg PO QAM azelastine 137 mcg (0.1 %) aerosol,spray 2 spray INTRANASAL BID diltiazem HCl 30 mg tablet 30 mg PO QAM Symbicort 80-4.5 mcg/actuation HFA aerosol inhaler 2 puff INHALATION BID Eliquis 5 mg tablet 5 mg PO BID trazodone 150 mg tablet 300 mg PO BEDTIME sulfamethoxazole-trimethoprim 800-160 mg tablet 1 tab PO .MON,WED,FRI prednisolone acetate 1 % drops,suspension 1 drp ophthalmic (eye) BID Rx Instructions: right eye potassium chloride 20 mEq tablet extended release 20 meq PO BID Qty: 6 0RF Discharge Orders: Discharge ED (Routine); Ordered 08/15/23 Ordered By: Glenn Dan Other Ambulatory Orders: DME: Nebulizer with Neb Kit (Order) Timeframe: 99 Days Location: None Selected Ordered By: Glenn Dan Referrals: Rafael Kendall MD [Primary Care Provider] - Discharge Diet: Usual diet Discharge Activity: Increase activity as tolerated Patient Instructions: Opioid Safety, Pain Management Activity Restrictions/Additional Instructions: Thank you for choosing [facility] for your healthcare needs today. Please realize this is an emergency room and that we are providing you with a medical screening exam and this may not be complete and all inclusive of all the testing and or work up that you may need to determine your ailment or severity of your illness. It is very important that you follow up as instructed or that you return to the Emergency Department should you have concerns or if your condition changes or worsens in any way. Follow-up with primary care doctor within the next 4 to 5 days Coding Level of Care Code ED Plastic Die Maker Apprentice for Osmin Ordonez
[2023-08-15 08:34] LABS: Basophils # 0.1 10^3/uL (0.0-0.1); Basophils % 0.8 %; Eosinophils # 0.1 10^3/uL (0.0-0.8); Eosinophils % 0.9 %; Hematocrit 46.3 % (37-53); Lymphocytes # 1.3 10^3/uL (0.8-4.8); Lymphocytes % 17.8 %; Mean Corpuscular HGB Conc 34.1 g/dL (30-55); Mean Corpuscular Hemoglobin 30.2 pg (27-33); Mean Corpuscular Volume 88.5 fl (82-101); Mean Platelet Volume 8.7 fL (7.4-10.4); Monocytes # 0.7 10^3/uL (0.2-0.9); Monocytes % 9.3 %; Neutrophils # 5.25 10^3/uL (1.8-7.7); Neutrophils % 70.9 %; Nucleated Red Blood Cells % 0 %; Platelet Count 162 10^3/cmm (157-399); Red Blood Count 5.23 10^6/uL (3.85-5.65); Red Cell Distribution Width 16.3 % (12.1-15.1); White Blood Count 7.41 10^3/uL (3.29-11.43)
[2023-08-15] MEDS: aspirin 81 mg Chew Tablet 324 MG PO (08:43)
[2023-08-15 08:53] LABS: Troponin(5th) Baseline 20 ng/L (0-15)
[2023-08-15 08:55] LABS: Alanine Aminotransferase 14 U/L (0-41); Albumin Level 4.2 g/dL (3.5-5.2); Alkaline Phosphatase 98 U/L (40-130); Anion Gap 15.9 (5-19); Aspartate Amino Transferase 20 U/L (0-40); Carbon Dioxide 22 mmol/L (22-29); Chloride 101 mmol/L (98-107); Globulin 2.9 g/dL (1.3-4.6); Potassium 3.9 mmol/L (3.5-5.1); Total Protein 7.1 g/dL (6.6-8.7)
[2023-08-15 09:03] LABS: Blood Urea Nitrogen 8 mg/dL (8-23); Calcium 9.1 mg/dL (8.5-10.5); Glomerular Filtration Rate 114.3 mL/min (90-130); Glucose 115 mg/dL (65-115); Osmolality Calculated 277 mOsm/kg (285-295); Sodium 134 mmol/L (136-145); Total Bilirubin 1.4 mg/dL (0.15-1.2)
[2023-08-15 09:05] LABS: Alcohol Level < 10 mg/dL (0-10)
--- NOTE | 2023-08-15 09:19 | PC.PHAR ---
pt states he takes care of his own medications-pt states he finished his doxycycline hyclate 100mg bid 2 days ago on 08/13/23 rx filled 08/03/23 7d/s-pt states he no longer uses the spiriva handihaler
[2023-08-15] MEDS: dexamethasone 10 mg/mL INJ IM (09:20)
[2023-08-15 09:21] LABS: ABG PCO2 33.1 mmHg (35-45); ABG PH Result 7.47 (7.35-7.45); Alveolar-Arterial Oxygen Gradi 7.1 mmHg (5-10); Arterial Blood Gas Hematocrit 48.1 % (42-52); Base Excess ABG 1.1 mmol/L (-2.0-2.0); Blood Gas Allen Test Pos; Blood Gas LPM 4.5 %; Blood Gas Operator Identificat WALCI; Blood Gas Sample Site Radial, right; Blood Gas Sample Type Arterial; HCO3 ABG 24.1 mmol/L (22-26); HGB O2 Sat 85.8 % (95-100); Ionized Calcium Level - ABG 1.2 mmol/L (1.1-1.4); Methemoglobin 0.6 % (0.4-1.5); Oxygen Device NC; PO2 ABG 53.5 mmHg (80.0-100.0); Potassium Level - ABG 3.7 mmol/L (3.5-5.0); Total Hemoglobin 15.7 g/dL (14-18)
[2023-08-15] MEDS: ipratropium-albuterol 3 mL Neb INHALATION (09:26)
--- NOTE | 2023-08-15 10:10 | ECG_ITS ---
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 Measurements Intervals [place] Rate: 95 P: 55 [place]: 161 QRS: 52 QRSD: 89 T: 69 QT: 372 QTc: 469 Interpretive Statements SINUS RHYTHM Compared to ECG 08/15/2023 08:13:26 No significant changes Electronically Signed On 08-15-2023 21:43:22 UNDER BASTER by Adilia Clay M.D. [email or web address] behavioral [email or web address]/[id number]
[2023-08-15] MEDS: levofloxacin-dextrose 5 % 750 MG/150 ML PREMIX 100 MG IV (10:37)
[2023-08-15 10:57] LABS: Troponin 5 2HR 14.73 ng/L (0-15)
[2023-08-15 11:03] LABS: Troponin 5 2HR Delta -5.27 ABS# (0-10)
--- NOTE | 2023-08-15 11:38 | PC.NURSE ---
PER DR RIVERA, PATIENT BASELINE OXYGEN SATURATION IS 87-88%.
== END 2023-08-15 13:16 | disposition home or self-care (01) ==
PROVIDERS: Emergency Provider Family Medicine; PCP Family Medicine
DX: J44.1 Chronic obstructive pulmonary disease with (acute) exacerbation (principal); I27.21 Secondary pulmonary arterial hypertension; Z79.01 Long term (current) use of anticoagulants; F17.210 Nicotine dependence, cigarettes, uncomplicated; B20 Human immunodeficiency virus [HIV] disease; Z85.72 Personal history of non-Hodgkin lymphomas
CPT/HCPCS: 36415; 36600; 71045; 80051; 80053; 80307; 82330; 82805; 84484; 85025; 87040; 93005; 94640; 96365; 96366; 99285; J1100; J1956

== ENCOUNTER 2023-08-30 08:24 | Outpatient (CLI) | payer MEDICARE, MEDICAID, SELFPAY ==
--- NOTE | 2023-08-30 08:30 | MR_ITS ---
WS: [id number] MRI LEFT HIP WITH AND WITHOUT CONTRAST. COMPARISON: Soft tissue ultrasound 08/01/2023 and LEFT hip radiograph 06/06/2023 Multiplanar, multisequence imaging is performed with and without contrast. MultiHance 19 mL IV. There is a soft tissue mass centered within the subcutaneous soft tissues of the LEFT hip just wildland fire operations specialist ior to the greater trochanter. This mass extends to involve the iliotibial band. There is abnormal si gnal both medial and lateral to the iliotibial band. Ill-defined area of increased T2 signal and diff use decreased signal on the T1 sequences. There is peripheral enhancement of both the components on t he postcontrast images there is not a diffuse area of enhancement. Area of abnormality measures 3.6 x 4.6 cm. There is also abnormal signal within the gluteus medius muscle and tendon lateral as it appr oaches the greater trochanter. There is a partial tear of the gluteus medius tendon. There is a addit ional fluid in the subtrochanteric bursa. No fractures or marrow edema noted within the pelvis. No adenopathy or ascites. IMPRESSION: 1. No marrow edema or fracture. 2. There is a soft tissue mass just lateral to the LEFT greater trochanter with peripheral enhanceme nt measuring 3.6 x 4.6 cm. There is extension both medial and lateral to the iliotibial band and abno rmal enhancement involving the gluteus medius adjacent muscle and tendon. 3. Suspect partial tear of the gluteus medius tendon. 4. LEFT subtrochanteric bursitis. 5. Recommendation: Differential includes subtrochanteric bursitis with adjacent inflammation of the muscles and partial tear of the gluteus medius tendon. The soft tissue mass should be further evaluat ed for possible infection or adjacent neoplasm. This may be a resolving hematoma although that is les s likely due to its ultrasound appearance. If this mass does not resolve biopsy should be performed. Biopsy can be performed under ultrasound guidance. The mass may actually be improving. Compared to th e ultrasound from 08/01/2023 the soft tissue mass is less masslike on MRI exam. Still of concern as th e wall is enhancing. Abscess versus necrotic neoplasm.
[2023-08-30] MEDS: gadobenate dimeglumine 20 mL vial IV (09:32)
== END 2023-08-30 08:25 | disposition home or self-care (01) ==
LOC: RAD 08:24
PROVIDERS: PCP Family Medicine; Visit Provider Family Medicine
DX: R22.42 Localized swelling, mass and lump, left lower limb (principal)
CPT/HCPCS: 73723; A9577

== ENCOUNTER 2023-09-21 10:57 | Outpatient (CLI) | payer MEDICARE, MEDICAID, SELFPAY ==
--- NOTE | 2023-09-21 11:08 | US_ITS ---
WS: [id number] Ultrasound-guided biopsy LEFT hip mass. INDICATION: LEFT hip mass TECHNIQUE: Ultrasound-guided biopsy of LEFT hip mass FINDINGS: The procedure including risks, benefits, and complications were discussed with the patient who agreed to proceed. Timeout was performed. Using sterile technique, the patient was prepped and dr aped in usual sterile fashion. After 1% lidocaine, using ultrasound guidance, numerous 20-gauge and t hen 14-gauge core samples were obtained. No immediate complications. Specimens placed in formalin and RPMI solution No hematoma 5 minutes post biopsy evaluated by ultrasound. IMPRESSION: Uncomplicated ultrasound-guided LEFT soft tissue mass biopsy LEFT hip
[2023-09-25 07:46] LABS: Lymphoma Profile (BBPL) See Report
== END 2023-09-21 10:58 | disposition home or self-care (01) ==
LOC: RAD 10:57
PROVIDERS: PCP Family Medicine; Visit Provider Family Medicine
DX: R22.40 Localized swelling, mass and lump, unspecified lower limb (principal)
CPT/HCPCS: 76942; 88184; 88185; 88307

== ENCOUNTER 2023-10-05 22:37 | Observation (INO) | payer MEDICARE, MEDICAID, SELFPAY ==
--- NOTE | 2023-10-05 21:45 | ECG_ITS ---
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 Measurements Intervals [place] Rate: 92 P: 45 [place]: 179 QRS: 18 QRSD: 110 T: 61 QT: 400 QTc: 496 Interpretive Statements SINUS RHYTHM WITH OCCASIONAL SUPRAVENTRICULAR PREMATURE COMPLEXES Compared to ECG 08/15/2023 10:10:49 No significant changes Electronically Signed On 10-07-2023 21:25:51 CDT by Adilia Clay M.D. [email or web address][email or web address] [facility].[address]/store/OM/[id number]
[2023-10-05 22:38] VITALS: BP 104/73; PULSE 72; RESP 25; TEMP 36.6; O2SAT 89; BMI 26.3
--- NOTE | 2023-10-05 22:38 | XRR_ITS ---
PROCEDURE INFORMATION: Exam: XR Chest Exam date and time: 10/05/2023 10:47 PM Age: 63 years old Clinical indication: Other: Abdominal pain; Additional info: Dyspnea TECHNIQUE: Imaging protocol: Radiologic exam of the chest. Views: 1 view. COMPARISON: CR XR chest 1V portable [id number] 08/15/2023 8:30 AM FINDINGS: Lungs: Moderate chronic interstitial fibrosis is stable. Hypoventilatory changes are superimposed at the lung bases. Pleural spaces: Unremarkable. No pleural effusion. No pneumothorax. Heart/Mediastinum: Stable pramod unchanged from before. Vasculature: Uncoiling of the thoracic aorta. Bones/joints: Unremarkable. XR/XR chest 1V portable [id number] IMPRESSION: Chronic stable findings.
[2023-10-05 22:57] LABS: Basophils % 0.7 %; Eosinophils # 0.2 10^3/uL (0.0-0.8); Eosinophils % 2.5 %; Hematocrit 46.8 % (37-53); Lymphocytes # 2.3 10^3/uL (0.8-4.8); Lymphocytes % 37.5 %; Mean Corpuscular HGB Conc 33.8 g/dL (30-55); Mean Corpuscular Hemoglobin 31.8 pg (27-33); Mean Corpuscular Volume 94.2 fl (82-101); Mean Platelet Volume 8.8 fL (7.4-10.4); Monocytes # 0.6 10^3/uL (0.2-0.9); Neutrophils # 2.95 10^3/uL (1.8-7.7); Neutrophils % 49.1 %; Nucleated Red Blood Cells % 0 %; Platelet Count 154 10^3/cmm (157-399); Red Blood Count 4.97 10^6/uL (3.85-5.65); Red Cell Distribution Width 15.4 % (12.1-15.1)
[2023-10-05] MEDS: ipratropium-albuterol 3 mL Neb 9 ML INHALATION (22:57)
[2023-10-05 22:58] VITALS: PULSE 93; RESP 20; O2SAT 91
[2023-10-05 23:00] VITALS: PULSE 96; RESP 16; O2SAT 89
--- NOTE | 2023-10-05 23:00 | P.HP_ITS ---
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 Greenwood in the past, has had multiple admissions in the past secondary to COPD exacerbation, presenting today with chief complaint of worsening of shortness of breath in the past patient was intubated as well for resp distress. Patient stating that he is still smoking half pack a day, he is consistent and compliant with his HIV medications, he smokes about 10 cigarettes a day and takes off oxygen Lives with his mother, at baseline uses 4 L of oxygen, today present to the hospital for hoarseness of voice, productive cough, sputum production and worsening hypoxia despite on 4 L he was saturating 88% Patient is denying fever, diarrhea, chest pain Chest x-ray showing pneumonia on right side patient is currently on 6 L OxyMask Review of Systems 2 Const: Denies: fever(s) Eyes: Denies: change in vision ENMT: Denies: throat pain Card: Denies: chest pain Resp: Reports: dyspnea and productive cough GI: Denies: abdominal pain Medications/Allergies Home Medications Medication Instructions Recorded Confirmed Last Taken Type dolutegravir 50 mg-lamivudine 300 1 tab PO QAM 04/11/20 08/15/23 08/15/23 History mg tablet (Dovato) sildenafil (pulm.hypertension) 20 20 mg PO TID 04/11/20 08/15/23 08/15/23 History mg tablet macitentan 10 mg tablet (Opsumit) 10 mg PO QAM 06/29/20 08/15/23 08/15/23 History multivitamin 1 tab PO QAM 06/29/20 08/15/23 08/15/23 History mirtazapine 15 mg tablet 15 mg PO BEDTIME 02/10/21 08/15/23 08/14/23 History testosterone 2 pump topical QAM 02/10/21 08/15/23 08/15/23 History prednisolone acetate 1 % eye 1 drp ophthalmic (eye) BID 10/25/21 08/15/23 Unknown History drops,suspension sulfamethoxazole 800 1 tab PO .MON,WED,Sun10/25/21 08/15/23 08/15/23 History mg-trimethoprim 160 mg tablet potassium chloride 20 mEq 20 meq PO BID #6 tabs 01/22/22 08/15/23 08/15/23 Rx tablet,extended release albuterol sulfate 90 mcg/actuation 2 inh inhalation 6XD PRN shortness 07/09/23 08/15/23 Unknown Rx aerosol inhaler (Ventolin HFA) of breath or wheezing #8.5 grams apixaban 5 mg tablet (Eliquis) 5 mg PO BID 08/15/23 08/15/23 08/15/23 History azelastine 137 mcg (0.1 %) nasal 2 spray intranasal BID 08/15/23 08/15/23 Unknown History spray aerosol budesonide-formoterol HFA 80 2 puff inhalation BID 08/15/23 08/15/23 Unknown History mcg-4.5 mcg/actuation aerosol inhaler (Symbicort) dexamethasone 6 mg tablet 6 mg PO DAILY #7 tabs 08/15/23 Unknown Rx diltiazem HCl 30 mg tablet 30 mg PO QAM 08/15/23 08/15/23 08/15/23 History fluconazole 50 mg tablet 50 mg PO QAM 08/15/23 08/15/23 08/15/23 History ipratropium 0.5 mg-albuterol 3 mg 3 ml inhalation Q4H PRN shortness 08/15/23 Unknown Rx (2.5 mg base)/3 mL nebulization of breath or wheezing #90 mL soln trazodone 150 mg tablet 300 mg PO BEDTIME 08/15/23 08/15/23 08/14/23 History Allergies Allergy/AdvReac Type Severity Reaction Status Date / Time No Known Allergies Allergy Verified 01/24/23 11:27 PFSH Acute 2 PFSH: Medical History Alcohol dependence Closed fractures involving multiple regions of right lower extremity Suicide attempt Deliberate medication overdose Depression History of peptic ulcer disease Posttraumatic stress disorder GI bleed Was taken off Coumadin for a month in 2015 after a bleeding gastric ulcer, currently on Eliquis Anorexia COPD (chronic obstructive pulmonary disease) Severe COPD Pulmonary hypertension After PE Alcohol use disorder Major depressive disorder Meningitis Liver tumor Diverticulitis / Diverticulosis Hypogonadism Orchialgia Depressive disorder HIV (human immunodeficiency virus infection) Pulmonary embolism DVT of right leg, 2010 Colon polyps Atrial fibrillation Lymphoma 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 Surgical History H/O esophagogastroduodenoscopy 2005 -reflux esophagitis, superficial gastric erosions with hemorrhagic gastritis, duodenitis /2008 -reflux esophagitis, gastritis, small chronic gastric ulcer History of orchiectomy, unilateral L -- diffuse large B-cell lymphoma H/O hemorrhoidectomy H/O colonoscopy 2001 -diverticulosis, colon polyps / 2005 -diverticulosis, small telangiectasia / 01/2016 -diverticulosis with intrinsic stenosis and sigmoid Family History Other No pertinent family history Social History Smoking and tobacco/nicotine status: current every day tobacco/nicotine user (1 ppd) cigarettes Packs smoked per day: 1 Alcohol intake: current Substance/Drug Use: never Lives independently: Yes Housing: House Vitals/I&O/Wt Last Vital Signs Temp 97.8 F 10/05/23 22:38 Pulse 93 10/05/23 22:58 Resp 20 H 10/05/23 22:58 BP 104/73 10/05/23 22:38 Pulse Ox 91 10/05/23 22:58 O2 Del Method Nasal Cannula 10/05/23 22:58 O2 Flow Rate 5 10/05/23 22:58 Weight last 48 hrs Weight 87.997 kg Physical Exam 2 Narrative: Awake alert Euvolemic GCS 15 Currently on 6 L OxyMask Pleasant cough Portion of voice noted No active chest pain S1, S2 Hemodynamically stable Conjunctival hyperemia Data 10/05/23 22:46 10/05/23 23:17 A&P Assessment and plan (1) Lymphoma: Qualifiers: B-cell lymphoma type: diffuse large B-cell (2) HIV (human immunodeficiency virus infection): (3) Anemia: (4) Hypoxemia: (5) COPD (chronic obstructive pulmonary disease): (6) Acute exacerbation of chronic obstructive pulmonary disease: (7) Community acquired pneumonia: Plan Community-acquired pneumonia Acute on chronic hypoxia Patient currently requiring 6 L, at baseline uses 4 L Active smoker HIV with lymphoma history Compliant with HIV medication which I would continue Added antibiotics Admit to ICU for overnight monitoring Add inhaled steroids Patient is denying active use of alcohol but endorsing to smoking half a pack a day No active signs of heart failure Hoarseness of voice could be related to bronchitis/pneumonia Official report of chest x-ray is pending Nikolai treatment History of A-fib continue anticoagulation agent with Cardizem Patient was intubated last time for worsening of shortness of breath will monitor closely in ICU for tonight EXTR and stable can be transferred out of ICU potentially can go home by end of Sunday or Sunday morning Attestations 2 Medical Necessity Statement*: Anticipating discharge within 48 hours at baseline uses 4 L currently on 6 L Diagnoses Lymphoma C85.90 B-cell lymphoma type: diffuse large B-cell HIV (human immunodeficiency virus infection) B20 Anemia D64.9 Hypoxemia R09.02 COPD (chronic obstructive pulmonary disease) J44.9 Acute exacerbation of chronic obstructive pulmonary disease J44.1 Community acquired pneumonia J18.9
[2023-10-05 23:09] LABS: INR 1.01 (0.8-1.2)
[2023-10-05] MEDS: methylPREDNISolone sod succ 125 mg/2 mL INJ 60 MG IVP (23:12)
[2023-10-05 23:14] VITALS: PULSE 92; RESP 18; O2SAT 90
[2023-10-05 23:19] LABS: Troponin(5th) Baseline 19 ng/L (0-15)
[2023-10-05 23:20] LABS: ABG PCO2 35.3 mmHg (35-45); Alveolar-Arterial Oxygen Gradi 7.5 mmHg (5-10); Arterial Blood Gas Hematocrit 48.5 % (42-52); Base Excess ABG -2.3 mmol/L (-2.0-2.0); Blood Gas Allen Test Pos; Carboxyhemoglobin 4.2 %THgb (0.4-20.1); HCO3 ABG 21.9 mmol/L (22-26); HGB O2 Sat 78.8 % (95-100); Ionized Calcium Level - ABG 1.1 mmol/L (1.1-1.4); Methemoglobin 0.6 % (0.4-1.5); Oxygen Saturation ABG 82.8; PO2 ABG 48.4 mmHg (80.0-100.0); Potassium Level - ABG 3.4 mmol/L (3.5-5.0); Total Hemoglobin 15.8 g/dL (14-18)
[2023-10-05 23:21] LABS: Blood Gas Sample Site Brachial, right; Blood Gas Sample Type Venous; Oxygen Device NC; PO2 FiO2 Ratio Arterial Blood 0
[2023-10-05 23:29] LABS: Influenza A by IFA negative (Negative); Influenza B by IFA negative (Negative); SARS Covid-2 Antigen negative (Negative)
[2023-10-05 23:52] LABS: Alanine Aminotransferase 27 U/L (0-41); Albumin Level 3.9 g/dL (3.5-5.2); Alkaline Phosphatase 83 U/L (40-130); Anion Gap 18.3 (5-19); Aspartate Amino Transferase 42 U/L (0-40); Blood Urea Nitrogen 3 mg/dL (8-23); Calcium 8.2 mg/dL (8.5-10.5); Carbon Dioxide 21 mmol/L (22-29); Chloride 102 mmol/L (98-107); Creatinine Clr Calc Pharmacy 147.6201; Globulin 2.8 g/dL (1.3-4.6); Glomerular Filtration Rate 136.5 mL/min (90-130); Glucose 86 mg/dL (65-115); NT Pro B Type Natriuretic Pept < 36 pg/mL (0-125); Osmolality Calculated 282 mOsm/kg (285-295); Potassium 3.3 mmol/L (3.5-5.1); Sodium 138 mmol/L (136-145); Total Bilirubin 0.6 mg/dL (0.15-1.2); Total Protein 6.7 g/dL (6.6-8.7)
[2023-10-06] VITALS (68 sets, daily range): BP systolic 94–143; BP diastolic 60–97; PULSE 82–142; RESP 14–31; TEMP 36.4–37.2; O2SAT 83–94; BMI 25.2; BMI 25.3
--- NOTE | 2023-10-06 00:14 | PC.NURSE ---
Addendum entered by Alesia Acosta RN 10/06/23 00:15: Oxygen saturation improved to 88% on the mask. Original Note: Patients oxygen sats dropped to 82% while on 6lnc for several mins. Pt placed on Oxy mask as he breathing threw his mouth. Provider notified.
[2023-10-06 00:35] LABS: D Dimer 1.19 ug/mLFEU (0-0.59)
--- NOTE | 2023-10-06 00:38 | ECG_ITS ---
[facility] Test Date: 2023-10-05 Pat Name: Flakito Almanzar Department: Room: ICU02 Gender: Male Translator Deaf: : 1960 Requested By: Tomas Hannah Order Number: [id number] Papo MD: Adilia Clay M.D. Measurements Intervals Cucumber Rate: 90 P: 26 CA: 170 QRS: 0 QRSD: 98 T: 59 QT: 398 QTc: 488 Interpretive Statements SINUS RHYTHM NONSPECIFIC T-WAVE ABNORMALITY Compared to ECG 10/05/2023 21:45:57 T-wave abnormality now present Electronically Signed On 10-07-2023 21:45:25 CDT by Adilia Clay M.D. [id number]
--- NOTE | 2023-10-06 00:42 | ED_ITS ---
HPI - SOB/Dyspnea 2 General: Chief Complaint: Shortness of Breath/Dyspnea Stated Complaint: SOB Time Seen by Provider: 10/05/23 22:38 History of Present Illness: HPI Narrative: 63-year-old male presents emerged from [facility] complaints of shortness of breath that started approximately 2 days ago. He does have history of pulmonary hypertension. He states he is continued to feel like he is having significant shortness of breath and his home oxygen saturation was in the mid 80s on his 4 L nasal cannula that he normally wears on a regular basis at home. EMS personnel did provide him a DuoNeb breathing treatment with minimal improvement of his oxygen saturation. He was recently admitted to the hospital here and discharged on 09/18/2023 with similar concerns. Patient does have a previous history of alcoholism, pulmonary arterial hypertension, pulmonary embolism. HIV, continued tobacco abuse, lymphoma and recurrent COPD exacerbations. Review of Systems 2 General: Reports: 10 or more systems reviewed and unremarkable except in HPI and below Resp: Reports: dyspnea, productive cough and wheezing [facility] ED 2 PFSH: Medical History Alcohol dependence Closed fractures involving multiple regions of right lower extremity Suicide attempt Deliberate medication overdose Depression History of peptic ulcer disease Posttraumatic stress disorder GI bleed Was taken off Coumadin for a month in 2016 after a bleeding gastric ulcer, currently on Eliquis Anorexia COPD (chronic obstructive pulmonary disease) Severe COPD Pulmonary hypertension After PE Alcohol use disorder Major depressive disorder Meningitis Liver tumor Diverticulitis / Diverticulosis Hypogonadism Orchialgia Depressive disorder HIV (human immunodeficiency virus infection) Pulmonary embolism DVT of right leg, 2010 Colon polyps Atrial fibrillation Lymphoma 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 Treatment included 4 cycles of CHOP chemotherapy, completed in April 2003, along with NEONATAL SPECIALIST prophylaxis with intrathecal methotrexate and prophylactic radiation to the right testicle. Surgical History H/O esophagogastroduodenoscopy 2005 -reflux esophagitis, superficial gastric erosions with hemorrhagic gastritis, duodenitis /2008 -reflux esophagitis, gastritis, small chronic gastric ulcer History of orchiectomy, unilateral L -- diffuse large B-cell lymphoma H/O hemorrhoidectomy H/O colonoscopy 2001 -diverticulosis, colon polyps / 2005 -diverticulosis, small telangiectasia / 01/2016 -diverticulosis with intrinsic stenosis and sigmoid Family History Other No pertinent family history Social History Smoking and tobacco/nicotine status: current every day tobacco/nicotine user (1 ppd) cigarettes Packs smoked per day: 1 Alcohol intake: current Substance/Drug Use: never Lives independently: Yes Housing: House Physical Exam 2 Narrative: EXAM NARRATIVE: Constitutional: Ill-appearing, moderate respiratory distress, alert and oriented-to person, place, time and situation. Head, eyes, ears, nose, mouth, throat: Normocephalic, atraumatic. Pupils-equal, round, reactive to light. No scleral icterus. Normal-appearing external ears. Normal appearing nasal turbinates, no drainage. No obvious oral lesions, posterior oropharynx without erythema or exudates. Neck: Supple, trachea is midline, no lymphadenopathy, no jugular venous distension, thyromegaly, or carotid bruits. Carotid upstrokes are brisk bilaterally. Lungs: Scattered expiratory wheezes throughout, decreased bilaterally in the bases, symmetrical rise and fall of chest, no obvious signs of increased work of breathing at present. Cardiac: Regular rate and rhythm, positive S1, S2. No murmurs, rubs or gallops that I can appreciate Abdomen: Soft, non-tender to palpation, normal active bowel sounds to all quadrants. No palpable masses, no organomegaly and abdominal bruits. Extremities: 2+ pulses in the upper extremities that are equal bilaterally, 2+ pulses in the lower extremities that are equal bilaterally. Non-edematous. Moves all extremities well, sensation to all extremities are noted. Skin: Warm, dry, intact. Course 2 Vital Signs: Vital signs: Vital Signs Temperature 98.1 F 10/06/23 04:15 Pulse Rate 97 10/06/23 04:15 Respiratory Rate 19 H 10/06/23 04:15 Blood Pressure 110/70 10/06/23 04:15 Pulse Oximetry 89 L 10/06/23 04:15 Oxygen Delivery Me thod Oxymask 10/06/23 04:15 Oxygen Flow Rate 6 10/06/23 04:15 MDM - SOB/Dyspnea Medical Decision Making Physical exam completed and documented the patient does have increased work of breathing despite his 4 L nasal cannula with marginal hypoxemia and oxygen saturations. I have contacted the hospitalist physician to request admission for additional evaluation treatment and care. Medical Records I reviewed the patient's medical records. Lab Data 10/06/23 04:55 10/05/23 23:17 Labs/Radiology: Laboratory Results WBC 6.00 10^3/uL (3.29-11.43) 10/05/23 22:46 RBC 4.97 10^6/uL (3.85-5.65) 10/05/23 22:46 Hgb 15.80 g/dL (11.27-16.99) 10/05/23 22:46 Hct 46.8 % (37-53) 10/05/23 22:46 MCV 94.2 fl (82-101) 10/05/23 22:46 MCH 31.8 pg (27-33) 10/05/23 22:46 MCHC 33.8 g/dL (30-55) 10/05/23 22:46 RDW 15.4 % (12.1-15.1) H 10/05/23 22:46 Plt Count 154 10^3/cmm (157-399) L 10/05/23 22:46 MPV 8.8 fL (7.4-10.4) 10/05/23 22:46 Neut % (Auto) 49.1 % 10/05/23 22:46 Lymph % (Auto) 37.5 % 10/05/23 22:46 [place] % (Auto) 10.0 % 10/05/23 22:46 Eos % (Auto) 2.5 % 10/05/23 22:46 Baso % (Auto) 0.7 % 10/05/23 22:46 Neut # (Auto) 2.95 10^3/uL (1.8-7.7) 10/05/23 22:46 Lymph # (Auto) 2.3 10^3/uL (0.8-4.8) 10/05/23 22:46 [place] # (Auto) 0.6 10^3/uL (0.2-0.9) 10/05/23 22:46 Eos # (Auto) 0.2 10^3/uL (0.0-0.8) 10/05/23 22:46 Baso # (Auto) 0.0 10^3/uL (0.0-0.1) 10/05/23 22:46 Nucleated RBC % (auto) 0 % 10/05/23 22:46 Nucleated RBCs # 0.0 /100WBC 10/05/23 22:46 PT 13.60 SECONDS (12.1-14.9) 10/05/23 22:46 INR 1.01 (0.8-1.2) 10/05/23 22:46 Specimen Type Venous 10/05/23 23:15 Sample Site Brachial, right 10/05/23 23:15 ABG pH 7.40 (7.35-7.45) 10/05/23 23:15 ABG pCO2 35.3 mmHg (35-45) 10/05/23 23:15 ABG pO2 48.4 mmHg (80.0-100.0) L 10/05/23 23:15 ABG PO2/FiO2 Ratio 0 10/05/23 23:15 ABG HCO3 21.9 mmol/L (22-26) L 10/05/23 23:15 ABG O2 Saturation 82.8 10/05/23 23:15 ABG Base Excess -2.3 mmol/L (-2.0-2.0) L 10/05/23 23:15 Jean-Paul Test Pos 10/05/23 23:15 A-a O2 Gradient 7.5 mmHg (5-10) 10/05/23 23:15 Hematocrit 48.5 % (42-52) 10/05/23 23:15 Hgb O2 Saturation 78.8 % (95-100) L 10/05/23 23:15 Carboxyhemoglobin 4.2 %THgb (0.4-20.1) 10/05/23 23:15 Methemoglobin 0.6 % (0.4-1.5) 10/05/23 23:15 Total Hemoglobin 15.8 g/dL (14-18) 10/05/23 23:15 Sodium 141.0 mmol/L (131-143) 10/05/23 23:15 Potassium 3.4 mmol/L (3.5-5.0) L 10/05/23 23:15 Glucose 89.0 mg/dL (70-115) 10/05/23 23:15 Ionized Calcium 1.1 mmol/L (1.1-1.4) 10/05/23 23:15 O2 Delivery Device Nc 10/05/23 23:15 O2 Liters/Min 6.0 % 10/05/23 23:15 FiO2 45.0 % 10/05/23 23:15 Hostess Cashier ID [email or web address] 10/05/23 23:15 Sodium 138 mmol/L (136-145) 10/05/23 23:17 Potassium 3.3 mmol/L (3.5-5.1) L 10/05/23 23:17 Chloride 102 mmol/L (98-107) 10/05/23 23:17 Carbon Dioxide 21 mmol/L (22-29) L 10/05/23 23:17 Anion Gap 18.3 (5-19) 10/05/23 23:17 BUN 3 mg/dL (8-23) L 10/05/23 23:17 Creatinine 0.6 mg/dL (0.7-1.2) L 10/05/23 23:17 GFR Calculation 136.5 mL/min (90-130) H 10/05/23 23:17 Glucose 86 mg/dL (65-115) 10/05/23 23:17 Calculated Osmolality 282 mOsm/kg (285-295) L 10/05/23 23:17 Calcium 8.2 mg/dL (8.5-10.5) L 10/05/23 23:17 Total Bilirubin 0.6 mg/dL (0.15-1.2) 10/05/23 23:17 AST 42 U/L (0-40) H 10/05/23 23:17 ALT 27 U/L (0-41) 10/05/23 23:17 Alkaline Phosphatase 83 U/L (40-130) 10/05/23 23:17 Troponin T Baseline 19 ng/L (0-15) H 10/05/23 22:46 Troponin T 120 Minute 16.82 ng/L (0-15) H 10/06/23 00:26 Delta Troponin T -2.18 ABS# (0-10) L 10/06/23 00:26 NT-Pro-B Natriuret Pep < 36 pg/mL (0-125) 10/05/23 23:17 Total Protein 6.7 g/dL (6.6-8.7) 10/05/23 23:17 Albumin 3.9 g/dL (3.5-5.2) 10/05/23 23:17 Globulin 2.8 g/dL (1.3-4.6) 10/05/23 23:17 Influenza Type A Ag negative (Negative) 10/05/23 22:57 Influenza Type B Ag negative (Negative) 10/05/23 22:57 SARS-CoV-2 Ag (Rapid) negative (Negative) 10/05/23 22:57 All radiology interpretation(s) finalized by discharge EKG Data EKG 1: Interpretation: Twelve-lead EKG obtained at 2145 and reviewed at 2150 demonstrates sinus rhythm with PAC, ventricular rate of 92 bpm, [place] interval 179, QRS duration 110, QT [address] QTc [address] elevation or depression to demonstrate acute ischemia or infarction at present. EKG 2: Interpretation: Twelve-lead EKG obtained at 2329 reviewed at 2330 demonstrates sinus rhythm there is no ST elevation or depression to demonstrate acute ischemia or infarction at present. Ventricular rate 90, [place] interval 170, QRS duration 98, QT 398, QTc 445. Discharge Plan Discharge Patient Disposition: Admitted As Inpatient Admit Provider: Kenny Osborn Clinical Impression: Hypoxemia, Acute exacerbation of chronic obstructive pulmonary disease Condition: Stable Coding Level of Care Code ED Reproduction Machine Loader for Osmin Ordonez
[2023-10-06 00:46] LABS: Procalcitonin 0.04 ng/mL (0-0.5)
[2023-10-06 01:05] LABS: Troponin 5 2HR 16.82 ng/L (0-15)
[2023-10-06 01:06] LABS: Troponin 5 2HR Delta -2.18 ABS# (0-10)
--- NOTE | 2023-10-06 01:10 | PC.NURSE ---
Patient refused to get into a gown.
--- NOTE | 2023-10-06 03:56 | PC.NURSE ---
Drinking/Smoking Patient states he drinks 2-3 beers/day and smokes approximately [address] Osborn notified.
[2023-10-06 05:36] LABS: Amphetamines Screen Urine Negative (Negative); Barbiturates Screen Urine Negative (Negative); Benzodiazepines Screen Urine Negative (Negative); Cocaine Screen Urine Negative (Negative); Opiate Screen Urine Negative (Negative); PCP Screen Urine Negative (Negative); THC Screen Urine Negative (Negative)
[2023-10-06 05:43] LABS: Basophils % 0.3 %; Eosinophils % 0.3 %; Hematocrit 45.9 % (37-53); Lymphocytes # 0.5 10^3/uL (0.8-4.8); Mean Corpuscular HGB Conc 33.6 g/dL (30-55); Mean Corpuscular Hemoglobin 31.6 pg (27-33); Mean Corpuscular Volume 94.3 fl (82-101); Mean Platelet Volume 8.8 fL (7.4-10.4); Neutrophils # 2.55 10^3/uL (1.8-7.7); Neutrophils % 83.1 %; Nucleated Red Blood Cells % 0 %; Platelet Count 148 10^3/cmm (157-399); Red Blood Count 4.87 10^6/uL (3.85-5.65); Red Cell Distribution Width 15.5 % (12.1-15.1); White Blood Count 3.07 10^3/uL (3.29-11.43)
[2023-10-06 06:00] LABS: Troponin 5 6HR 15.28 ng/L (0-15)
[2023-10-06 06:01] LABS: Anion Gap 16.7 (5-19); Blood Urea Nitrogen 3 mg/dL (8-23); C Reactive Protein 7.2 mg/L (0.0-4.9); Calcium 8.7 mg/dL (8.5-10.5); Carbon Dioxide 23 mmol/L (22-29); Chloride 104 mmol/L (98-107); Creatinine Clr Calc Pharmacy 140.8694; Glomerular Filtration Rate 136.5 mL/min (90-130); Glucose 150 mg/dL (65-115); Magnesium 2.1 mg/dL (1.7-2.3); Osmolality Calculated 289 mOsm/kg (285-295); Potassium 3.7 mmol/L (3.5-5.1); Sodium 140 mmol/L (136-145); Troponin 5 6HR Delta -3.72 ng/L (0-12)
--- NOTE | 2023-10-06 06:15 | PC.NURSE ---
MIRIAMWA Protocol Due to drinking history, order received from Dr. Osborn to initiate ciwa protocol.
[2023-10-06] MEDS: dilTIAZem 30 mg Tablet PO (06:21)
[2023-10-06] MEDS: ipratropium-albuterol 3 mL Neb INHALATION ×2 (08:15→14:38)
[2023-10-06] MEDS: apixaban 5 mg Tablet PO ×2 (08:25→18:30)
[2023-10-06] MEDS: azithromycin 250 mg Tablet 500 MG PO (08:26)
[2023-10-06] MEDS: cefTRIAXone 1,000 MG in sodium chloride 0.9% (plus) 50 ML 100 MG IV (08:26)
[2023-10-06] MEDS: multivitamin therapeutic Tablet 1 TAB PO (08:26)
[2023-10-06] MEDS: folic acid 1 mg Tablet PO (08:26)
[2023-10-06] MEDS: potassium chloride ER 20 mEq Tablet PO ×2 (08:26→18:30)
[2023-10-06] MEDS: sennosides-docusate Tablet 1 TAB PO (08:26)
[2023-10-06] MEDS: predniSONE 20 mg Tablet 40 MG PO (08:26)
[2023-10-06] MEDS: thiamine 100 mg Tablet PO (08:26)
[2023-10-06] MEDS: nicotine 21 mg Patch 1 PATCH TRANSDERMA (15:50)
--- NOTE | 2023-10-06 16:58 | PC.NURSE ---
Report called to claudette on second floor, room 254-2.
--- NOTE | 2023-10-06 17:19 | PC.NURSE ---
Patient transferred via wheelchair on 6lNC to room 254-2, All patient belongings including cellphone and route carrier brought with patient. Patient resting in bed, eating evening meal with MS floor nurse at bedside. Patient had no complaints or requests at the time of transfer. Paper chart and home meds left with staff at front desk specialist.
--- NOTE | 2023-10-06 19:15 | P.PN_ITS ---
Subjective 2 Subjective: Feels slightly better. Still requiring 6 L of oxygen, saturating 91%. Coughing. Hoarse. Vitals/I&O/Wt Last Vital Signs Temp 98.9 F 10/06/23 09:15 Pulse 104 H 10/06/23 16:00 Resp 31 H 10/06/23 16:00 BP 124/77 10/06/23 16:00 Pulse Ox 91 10/06/23 16:00 O2 Del Method Nasal Cannula 10/06/23 16:00 O2 Flow Rate 5 10/06/23 18:33 10/06/23 10/06/23 10/06/23 06:59 14:59 22:59 Intake Total 394 / 394 480 / 874 Output Total 800 / 800 Balance -800 / -800 394 / 394 480 / 874 Weight last 48 hrs Weight 82.463 kg Weight 82.1 kg Weight 87.997 kg Physical Exam 2 Const: COMMON NORMALS: patient oriented x3 and alert GENERAL APPEARANCE: c ooperative ORIENTATION/CONSCIOUSNESS: Yes awake HENMT: COMMON NORMALS: oropharynx normal Neck/C-Spine: COMMON NORMALS: no JVD Resp: AUSCULTATION: diminished lung sounds Cardio: COMMON NORMALS: no JVD, regular rhythm, S1 normal heart sound present, S2 normal heart sound present and No murmurs present (Cardio) RHYTHM: regular rhythm HEART SOUNDS: S1 normal heart sound present and S2 normal heart sound present GI: COMMON NORMALS: Normal to inspection, nondistended, normoactive bowel sounds present, Soft to palpation and non-tender PALPATION: Yes Soft to palpation Extremity: COMMON NORMALS: no joint enlargement and no pedal edema Neuro: COMMON NORMALS: patient oriented x3 and moves all extremities S ENSORIUM/ORIENTATION: Yes alert Skin: COMMON NORMALS: no rashes or lesions noted GENERAL SKIN EXAM: no rashes or lesions noted Data 10/06/23 04:55 10/06/23 04:55 A&P Assessment and plan (1) Lymphoma: Qualifiers: B-cell lymphoma type: diffuse large B-cell (2) HIV (human immunodeficiency virus infection): (3) Anemia: (4) Hypoxemia: (5) COPD (chronic obstructive pulmonary disease): (6) Acute exacerbation of chronic obstructive pulmonary disease: (7) Community acquired pneumonia: Plan Community-acquired pneumonia, COPD exacerbation Acute on chronic hypoxia Still currently requiring 6 L, at baseline uses 4 L. Diminished lung sounds. Reviewed vitals, CBC, D-dimer, ABG,CMP, magnesium, phosphorus, troponin trend, CRP, NT-proBNP, procalcitonin, UDS, rapid influenza, rapid COVID-19. D-dimer with some chronic elevation, lower than usual. On Eliquis. Continue. Continue ceftriaxone, azithromycin, prednisone. Monitor for hyperglycemia, hypertension with steroid. Breathing treatments. Active smoker: Add nicotine patch, lozenges HIV with lymphoma history: Resuming medication. Monitor liver parameters. Compliant with HIV medication No active signs of heart failure Hoarseness of voice could be related to bronchitis/pneumonia History of A-fib continue anticoagulation agent with Cardizem Attestations 2 Medical Necessity Statement*: Continue admission for assessment and management of pneumonia, COPD exacerbation and gentleman with HIV, smoking, other comorbidities. and High MDM includes described risk of complication, morbidity or mortality of management as documented Diagnoses Lymphoma C85.90 B-cell lymphoma type: diffuse large B-cell HIV (human immunodeficiency virus infection) B20 Anemia D64.9 Hypoxemia R09.02 COPD (chronic obstructive pulmonary disease) J44.9 Acute exacerbation of chronic obstructive pulmonary disease J44.1 Community acquired pneumonia J18.9
[2023-10-06] MEDS: trazodone 150 mg Tablet 300 MG PO (22:26)
[2023-10-07 03:21] VITALS: BP 126/77; PULSE 77; RESP 18; TEMP 36.4; O2SAT 92
[2023-10-07 05:41] LABS: Basophils # 0.1 10^3/uL (0.0-0.1); Basophils % 0.6 %; Eosinophils # 0.1 10^3/uL (0.0-0.8); Eosinophils % 0.9 %; Hematocrit 47.8 % (37-53); Lymphocytes # 1.9 10^3/uL (0.8-4.8); Lymphocytes % 24.3 %; Mean Corpuscular HGB Conc 33.1 g/dL (30-55); Mean Corpuscular Hemoglobin 31.6 pg (27-33); Mean Corpuscular Volume 95.6 fl (82-101); Monocytes # 0.6 10^3/uL (0.2-0.9); Monocytes % 7.5 %; Neutrophils # 5.13 10^3/uL (1.8-7.7); Neutrophils % 66.1 %; Nucleated Red Blood Cells % 0 %; Platelet Count 153 10^3/cmm (157-399); Red Cell Distribution Width 15.5 % (12.1-15.1); White Blood Count 7.77 10^3/uL (3.29-11.43)
[2023-10-07] MEDS: dilTIAZem 30 mg Tablet PO (05:57)
[2023-10-07] MEDS: DOLUTEGRAVIR LAMIVUDINE 1 EACH PO (05:57)
[2023-10-07 06:12] LABS: Alanine Aminotransferase 23 U/L (0-41); Albumin Level 3.8 g/dL (3.5-5.2); Alkaline Phosphatase 80 U/L (40-130); Anion Gap 15.7 (5-19); Aspartate Amino Transferase 31 U/L (0-40); Blood Urea Nitrogen 9 mg/dL (8-23); Carbon Dioxide 24 mmol/L (22-29); Chloride 106 mmol/L (98-107); Creatinine Clr Calc Pharmacy 141.8524; Globulin 2.6 g/dL (1.3-4.6); Glomerular Filtration Rate 136.5 mL/min (90-130); Glucose 90 mg/dL (65-115); Osmolality Calculated 292 mOsm/kg (285-295); Potassium 3.7 mmol/L (3.5-5.1); Sodium 142 mmol/L (136-145); Total Bilirubin 0.8 mg/dL (0.15-1.2); Total Protein 6.4 g/dL (6.6-8.7)
[2023-10-07 07:21] VITALS: BP 102/65; PULSE 89; RESP 18; TEMP 36.6; O2SAT 91
[2023-10-07 08:35] VITALS: PULSE 85; RESP 18; O2SAT 90
[2023-10-07 08:45] VITALS: PULSE 88
[2023-10-07] MEDS: ipratropium-albuterol 3 mL Neb INHALATION (08:45)
[2023-10-07] MEDS: thiamine 100 mg Tablet PO (09:25)
[2023-10-07] MEDS: folic acid 1 mg Tablet PO (09:25)
[2023-10-07] MEDS: multivitamin therapeutic Tablet 1 TAB PO (09:25)
[2023-10-07] MEDS: predniSONE 20 mg Tablet 40 MG PO (09:25)
[2023-10-07] MEDS: apixaban 5 mg Tablet PO (09:25)
[2023-10-07] MEDS: azithromycin 250 mg Tablet 500 MG PO (09:25)
[2023-10-07] MEDS: potassium chloride ER 20 mEq Tablet PO (09:25)
[2023-10-07] MEDS: nicotine 21 mg Patch 1 PATCH TRANSDERMA (09:25)
[2023-10-07] MEDS: cefTRIAXone 1,000 MG in sodium chloride 0.9% (plus) 50 ML 100 MG IV (09:26)
[2023-10-07 11:43] VITALS: BP 119/70; PULSE 87; RESP 18; TEMP 36.4; O2SAT 93
--- NOTE | 2023-10-07 12:20 | PM.DCS ---
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 Treatment included 4 cycles of CHOP chemotherapy, completed in April 2003, along with [employer] prophylaxis with intrathecal methotrexate and prophylactic radiation to the right testicle. (2) HIV (human immunodeficiency virus infection): Status: Acute (3) Anemia: Status: Chronic (4) Hypoxemia: Status: Acute (5) COPD (chronic obstructive pulmonary disease): Status: Acute Permanent problem details: Severe COPD (6) Acute exacerbation of chronic obstructive pulmonary disease: Status: Acute (7) Community acquired pneumonia: Status: Acute Reason for Visit Reason for Visit: SOB Hospital Course Hospital Course Pleasant 63-year-old gentleman with COPD, smoking, HIV on antiretroviral, history of PE on anticoagulation, history of lymphoma was hospitalized after presenting with shortness of breath, found to be in COPD exacerbation with possible community-acquired pneumonia, treated with antibiotic, prednisone, breathing treatments, oxygen support. Above conditions complicated by worse hypoxia than usual requiring 6 L of oxygen who is usually on 4. His condition gradually improved with treatment. Today he is better. He is back on 4 L nasal cannula oxygen, subjectively he is feeling better. Air entry still mildly diminished but improving. He will complete a course of Decadron and ceftriaxone azithromycin after discharge. States he has oxygen supplies at home. Physical Exam Const: COMMON NORMALS: patient oriented x3 and alert GENERAL APPEARANCE: cooperative ORIENTATION/CONSCIOUSNESS: Yes awake HENMT: COMMON NORMALS: oropharynx normal Neck/C-Spine: COMMON NORMALS: no JVD Resp: AUSCULTATION: diminished lung sounds (improving) Cardio: COMMON NORMALS: no JVD, regular rhythm, S1 normal heart sound present, S2 normal heart sound present and No murmurs present (Cardio) RHYTHM: regular rhythm HEART SOUNDS: S1 normal heart sound present and S2 normal heart sound present GI: COMMON NORMALS: Normal to inspection, nondistended, normoactive bowel sounds present, Soft to palpation and non-tender PALPATION: Yes Soft to palpation Extremity: COMMON NORMALS: no joint enlargement and no pedal edema Neuro: COMMON NORMALS: patient oriented x3 and moves all extremities SENSORIUM/ORIENTATION: Yes alert Skin: COMMON NORMALS: no rashes or lesions noted GENERAL SKIN EXAM: no rashes or lesions noted Discharge Data Studies Completed and Pending Completed Studies During Hospitalization Category Date Time Status XR chest 1V portable [id number] Stat Exams 10/05/23 22:38 Completed Pending at discharge Category Date Time Status Complete Blood Count w/Auto AM LABS Lab 10/08/23 04:00 Ordered Complete Blood Count w/Auto AM LABS Lab 10/09/23 04:00 Ordered Comprehensive Metabolic Panel AM LABS Lab 10/08/23 04:00 Ordered Comprehensive Metabolic Panel AM LABS Lab 10/09/23 04:00 Ordered Sputum Culture and Gram Stain Routine Lab 10/07/23 08:52 Received Radiology Impressions Chest X-Ray 10/05/23 22:38 IMPRESSION: Chronic stable findings. Laboratory Results WBC 7.77 10^3/uL (3.29-11.43) 10/07/23 04:46 RBC 5.00 10^6/uL (3.85-5.65) 10/07/23 04:46 Hgb 15.80 g/dL (11.27-16.99) 10/07/23 04:46 Hct 47.8 % (37-53) 10/07/23 04:46 MCV 95.6 fl (82-101) 10/07/23 04:46 MCH 31.6 pg (27-33) 10/07/23 04:46 MCHC 33.1 g/dL (30-55) 10/07/23 04:46 RDW 15.5 % (12.1-15.1) H 10/07/23 04:46 Plt Count 153 10^3/cmm (157-399) L 10/07/23 04:46 MPV 9.0 fL (7.4-10.4) 10/07/23 04:46 Neut % (Auto) 66.1 % 10/07/23 04:46 Lymph % (Auto) 24.3 % 10/07/23 04:46 [place] % (Auto) 7.5 % 10/07/23 04:46 Eos % (Auto) 0.9 % 10/07/23 04:46 Baso % (Auto) 0.6 % 10/07/23 04:46 Neut # (Auto) 5.13 10^3/uL (1.8-7.7) 10/07/23 04:46 Lymph # (Auto) 1.9 10^3/uL (0.8-4.8) 10/07/23 04:46 [place] # (Auto) 0.6 10^3/uL (0.2-0.9) 10/07/23 04:46 Eos # (Auto) 0.1 10^3/uL (0.0-0.8) 10/07/23 04:46 Baso # (Auto) 0.1 10^3/uL (0.0-0.1) 10/07/23 04:46 Nucleated RBC % (auto) 0 % 10/07/23 04:46 Nucleated RBCs # 0.0 /100WBC 10/07/23 04:46 PT 13.60 SECONDS (12.1-14.9) 10/05/23 22:46 INR 1.01 (0.8-1.2) 10/05/23 22:46 D-Dimer 1.19 ug/mLFEU (0-0.59) H 10/06/23 Unknown Specimen Type Venous 10/05/23 23:15 Sample Site Brachial, right 10/05/23 23:15 ABG pH 7.40 (7.35-7.45) 10/05/23 23:15 ABG pCO2 35.3 mmHg (35-45) 10/05/23 23:15 ABG pO2 48.4 mmHg (80.0-100.0) L 10/05/23 23:15 ABG PO2/FiO2 Ratio 0 10/05/23 23:15 ABG HCO3 21.9 mmol/L (22-26) L 10/05/23 23:15 ABG O2 Saturation 82.8 10/05/23 23:15 ABG Base Excess -2.3 mmol/L (-2.0-2.0) L 10/05/23 23:15 Jean-Paul Test Pos 10/05/23 23:15 A-a O2 Gradient 7.5 mmHg (5-10) 10/05/23 23:15 Hematocrit 48.5 % (42-52) 10/05/23 23:15 Hgb O2 Saturation 78.8 % (95-100) L 10/05/23 23:15 Carboxyhemoglobin 4.2 %THgb (0.4-20.1) 10/05/23 23:15 Methemoglobin 0.6 % (0.4-1.5) 10/05/23 23:15 Total Hemoglobin 15.8 g/dL (14-18) 10/05/23 23:15 Sodium 141.0 mmol/L (131-143) 10/05/23 23:15 Potassium 3.4 mmol/L (3.5-5.0) L 10/05/23 23:15 Glucose 89.0 mg/dL (70-115) 10/05/23 23:15 Ionized Calcium 1.1 mmol/L (1.1-1.4) 10/05/23 23:15 O2 Delivery Device Nc 10/05/23 23:15 O2 Liters/Min 6.0 % 10/05/23 23:15 FiO2 45.0 % 10/05/23 23:15 [employer] ID [email or web address] 10/05/23 23:15 Sodium 142 mmol/L (136-145) 10/07/23 04:46 Potassium 3.7 mmol/L (3.5-5.1) 10/07/23 04:46 Chloride 106 mmol/L (98-107) 10/07/23 04:46 Carbon Dioxide 24 mmol/L (22-29) 10/07/23 04:46 Anion Gap 15.7 (5-19) 10/07/23 04:46 BUN 9 mg/dL (8-23) 10/07/23 04:46 Creatinine 0.6 mg/dL (0.7-1.2) L 10/07/23 04:46 GFR Calculation 136.5 mL/min (90-130) H 10/07/23 04:46 Glucose 90 mg/dL (65-115) 10/07/23 04:46 Calculated Osmolality 292 mOsm/kg (285-295) 10/07/23 04:46 Calcium 9.0 mg/dL (8.5-10.5) 10/07/23 04:46 Phosphorus 3.0 mg/dL (2.5-4.5) 10/06/23 04:55 Magnesium 2.1 mg/dL (1.7-2.3) 10/06/23 04:55 Total Bilirubin 0.8 mg/dL (0.15-1.2) 10/07/23 04:46 AST 31 U/L (0-40) 10/07/23 04:46 ALT 23 U/L (0-41) 10/07/23 04:46 Alkaline Phosphatase 80 U/L (40-130) 10/07/23 04:46 Troponin T Baseline 19 ng/L (0-15) H 10/05/23 22:46 Troponin T 120 Minute 16.82 ng/L (0-15) H 10/06/23 00:26 Delta Troponin T -2.18 ABS# (0-10) L 10/06/23 00:26 Troponin T Hi Sens 6Hr 15.28 ng/L (0-15) H 10/06/23 04:55 Troponin T Hi Sens 6Hr Delta -3.72 ng/L (0-12) L 10/06/23 04:55 C-Reactive Protein 7.2 mg/L (0.0-4.9) H 10/06/23 04:55 NT-Pro-B Natriuret Pep < 36 pg/mL (0-125) 10/05/23 23:17 Total Protein 6.4 g/dL (6.6-8.7) L 10/07/23 04:46 Albumin 3.8 g/dL (3.5-5.2) 10/07/23 04:46 Globulin 2.6 g/dL (1.3-4.6) 10/07/23 04:46 Procalcitonin 0.04 ng/mL (0-0.5) 10/06/23 Unknown Urine Opiates Screen Negative ng/mL (Negative) 10/06/23 05:18 Ur Barbiturates Screen Negative ng/mL (Negative) 10/06/23 05:18 Ur Phencyclidine Scrn Negative ng/mL (Negative) 10/06/23 05:18 Ur Amphetamines Screen Negative ng/mL (Negative) 10/06/23 05:18 U Benzodiazepines Scrn Negative ng/mL (Negative) 10/06/23 05:18 Urine Cocaine Screen Negative ng/mL (Negative) 10/06/23 05:18 U Marijuana (THC) Screen Negative ng/mL (Negative) 10/06/23 05:18 Influenza Type A Ag negative (Negative) 10/05/23 22:57 Influenza Type B Ag negative (Negative) 10/05/23 22:57 SARS-CoV-2 Ag (Rapid) negative (Negative) 10/05/23 22:57 Vitals Last Vital Signs Temp 97.6 F 10/07/23 11:43 Pulse 87 10/07/23 11:43 Resp 18 10/07/23 11:43 BP 119/70 10/07/23 11:43 Pulse Ox 93 10/07/23 11:43 O2 Del Method Nasal Cannula 10/07/23 11:43 O2 Flow Rate 4 10/07/23 08:35 Discharge Plan Discharge Patient Disposition: Home Condition: Stable Prescriptions: New cefdinir 300 mg capsule 300 mg PO BID 5 Days Qty: 10 0RF azithromycin 250 mg tablet 250 mg PO DAILY 5 Days Qty: 5 0RF nicotine 21 mg/24 hr Patch 24 Hour 1 patch transdermal DAILY Qty: 30 3RF nicotine (polacrilex) 4 mg Lozenge 4 mg mucous membrane Q4H PRN (Reason: Nicotine Cravings) Qty: 108 3RF Continued albuterol sulfate [Ventolin HFA] 90 mcg/actuation HFA aerosol inhaler 2 inh inhalation 6XD PRN (Reason: shortness of breath or wheezing) Qty: 8.5 2RF multivitamin Tablet 1 tab PO QAM Opsumit 10 mg tablet 10 mg PO QAM sildenafil (pulm.hypertension) 20 mg tablet 20 mg PO TID Dovato 50-300 mg tablet 1 tab PO QAM mirtazapine 15 mg tablet 15 mg PO BEDTIME testosterone 20.25 mg/1.25 gram (1.62 %) gel in metered-dose pump 2 pump topical QAM fluconazole 50 mg tablet 50 mg PO QAM azelastine 137 mcg (0.1 %) aerosol,spray 2 spray INTRANASAL BID diltiazem HCl 30 mg tablet 30 mg PO QAM budesonide-formoterol [Symbicort] 80-4.5 mcg/actuation HFA aerosol inhaler 2 puff INHALATION BID Eliquis 5 mg tablet 5 mg PO BID trazodone 150 mg tablet 300 mg PO BEDTIME ipratropium-albuterol 0.5 mg-3 mg(2.5 mg base)/3 mL solution for nebulization 3 ml inhalation Q4H PRN (Reason: shortness of breath or wheezing) Qty: 90 0RF sulfamethoxazole-trimethoprim 800-160 mg tablet 1 tab PO .MON,WED,FRI prednisolone acetate 1 % drops,suspension 1 drp ophthalmic (eye) BID Rx Instructions: right eye potassium chloride 20 mEq tablet extended release 20 meq PO BID Qty: 6 0RF dexamethasone 6 mg tablet 6 mg PO DAILY Qty: 4 0RF Discharge Orders: Discharge Order (Routine); Ordered 10/07/23 Ordered By: Carlos Richards Referrals: Rafael Kendall MD [Primary Care Provider] - 4-7 days (Please call primary care provider to schedule a hospital follow up appointment. ) Discharge Diet: Cardiac Discharge Activity: Increase activity as tolerated and Oxygen as instructed Patient Instructions: Azithromycin (By mouth), Cefdinir (By mouth), HIV Prevention, HIV Transmission (DC), COPD (Chronic Obstructive Pulmonary Disease) (DC), Bacterial Pneumonia (DC), COPD Stoplight, Opioid Safety Activity Restrictions/Additional Instructions: Follow-up with your primary doctor for reassessment of COPD exacerbation. Complete antibiotic course, continue inhaler treatments. Return to the hospital in case of any worsening or new concerning symptoms. Discharge Attestations Time Spent in Discharge Care*: greater than 30 min Status at Discharge: Cognitive status at discharge: cognitively intact, Behavioral status at discharge: can be uncooperative, Quality Metrics Clinical Quality Measures [ No reported AMI, CVA or VTE this stay] Coding Level of Care Code Acute Code for Chg Fwd Diagnoses Lymphoma C85.90 B-cell lymphoma type: diffuse large B-cell HIV (human immunodeficiency virus infection) B20 Anemia D64.9 Hypoxemia R09.02 COPD (chronic obstructive pulmonary disease) J44.9 Acute exacerbation of chronic obstructive pulmonary disease J44.1 Community acquired pneumonia J18.9
[2023-10-07 12:32] VITALS: BP 119/70; PULSE 87; RESP 18; TEMP 36.4; O2SAT 93
== END 2023-10-07 12:33 | disposition home or self-care (01) ==
LOC: ER 23:20 → ICU 10-06 00:45 → MEDSURG 10-06 17:11
PROVIDERS: Admitting Provider Internal Medicine; Emergency Provider Internal Medicine; PCP Family Medicine; Visit Provider Internal Medicine
DX: C85.90 Non-Hodgkin lymphoma, unspecified, unspecified site (principal); B20 Human immunodeficiency virus [HIV] disease; D64.9 Anemia, unspecified; R09.02 Hypoxemia; J44.1 Chronic obstructive pulmonary disease with (acute) exacerbation; J18.9 Pneumonia, unspecified organism; Z86.711 Personal history of pulmonary embolism; Z79.01 Long term (current) use of anticoagulants; Z99.81 Dependence on supplemental oxygen; R49.0 Dysphonia; I48.91 Unspecified atrial fibrillation; Z87.11 Personal history of peptic ulcer disease; F17.210 Nicotine dependence, cigarettes, uncomplicated
CPT/HCPCS: 36415; 36600; 71045; 80048; 80051; 80053; 80306; 82330; 82805; 83735; 83880; 84100; 84145; 84484; 85025; 85378; 85610; 86140; 87070; 87077; 87186; 87205; 87426; 87804; 93005; 94640; 96365; 96372; 96375; 96376; 99285; G0378; J0696; J2930; J3411; J7512; Q0144

== ENCOUNTER 2024-03-03 10:38 | Oncology outpatient (recurring) (ONCR) | payer MEDICARE, MEDICAID, SELFPAY ==
[2024-03-03 10:58] LABS: Basophils % 0.6 %; Eosinophils # 0.1 10^3/uL (0.0-0.8); Eosinophils % 1.9 %; Lymphocytes # 1.4 10^3/uL (0.8-4.8); Lymphocytes % 22.1 %; Mean Corpuscular Hemoglobin 32.5 pg (27-33); Mean Corpuscular Volume 95.6 fl (82-101); Mean Platelet Volume 8.5 fL (7.4-10.4); Monocytes # 0.6 10^3/uL (0.2-0.9); Neutrophils # 4.29 10^3/uL (1.8-7.7); Neutrophils % 66.1 %; Nucleated Red Blood Cells % 0 %; Platelet Count 151 10^3/cmm (157-399); Red Blood Count 5.02 10^6/uL (3.85-5.65); Red Cell Distribution Width 13.3 % (12.1-15.1); White Blood Count 6.48 10^3/uL (3.29-11.43)
[2024-03-03 11:16] LABS: Alanine Aminotransferase 15 U/L (0-41); Albumin Level 4.4 g/dL (3.5-5.2); Alkaline Phosphatase 100 U/L (40-130); Anion Gap 17.3 (5-19); Aspartate Amino Transferase 21 U/L (0-40); Blood Urea Nitrogen 11 mg/dL (8-23); Calcium 9.3 mg/dL (8.5-10.5); Carbon Dioxide 23 mmol/L (22-29); Chloride 104 mmol/L (98-107); Globulin 3.2 g/dL (1.3-4.6); Glucose 105 mg/dL (65-115); Lactate Dehydrogenase 172 U/L (135-225); Osmolality Calculated 290 mOsm/kg (285-295); Potassium 4.3 mmol/L (3.5-5.1); Sodium 140 mmol/L (136-145); Total Bilirubin 0.5 mg/dL (0.15-1.2); Total Protein 7.6 g/dL (6.6-8.7)
== END 2024-03-22 23:55 | disposition home or self-care (01) ==
PROVIDERS: Nurse Practitioner Family; PCP Family Medicine; Visit Provider Nurse Practitioner Family
DX: C83.39 Diffuse large B-cell lymphoma, extranodal and solid organ sites (principal); Z92.21 Personal history of antineoplastic chemotherapy; Z92.3 Personal history of irradiation; Z87.891 Personal history of nicotine dependence; R53.83 Other fatigue; J44.1 Chronic obstructive pulmonary disease with (acute) exacerbation
CPT/HCPCS: 80053; 83615; 85025; 99214

== ENCOUNTER 2024-03-06 14:23 | Outpatient (CLI) | payer MEDICARE, MEDICAID, SELFPAY ==
--- NOTE | 2024-03-06 15:30 | CT_ITS ---
WS: [id number] CT CHEST, ABDOMEN AND PELVIS WITH CONTRAST HISTORY: Surveillance lymphoma. TECHNIQUE: Contiguous 5 mm axial imaging performed through the chest, abdomen and pelvis with IV cont rast, oral contrast has been provided. Coronal and sagittal reformats chest. Coronal and sagittal ref ormats through the abdomen and pelvis. All CT scans at [facility] use at least one of these d ose optimization techniques: automated exposure control; mA and/or kV adjustment per patient size (in cludes targeted exams where dose is matched to clinical indication); or iterative reconstruction. CONTRAST: Omnipaque 350; 100 mL IV. DLP: 923.29 mGy.cm COMPARISON: 06/12/2023, 05/03/[address]: Lung volumes are decreased. Centrilobular emphysema. There are a few small peripheral micro nodules throughout both lungs. No mass or nodule greater than 3 mm. Conglomerate chronic opacificatio n LEFT lower lobe with a stable subpleural nodule. No mass. Heart size remains slightly enlarged. Mod erate enlargement of the pulmonary artery to 4.9 cm. Very minimal atherosclerosis aorta. LEFT vertebr al artery arises directly from the arch. Indeterminate RIGHT hilar lymph nodes have actually improved since 12/28/2021. The most recent exams were performed without IV contrast making comparison more diff icult. No obvious progression. Abdomen CT: Liver and spleen are normal size. Spleen measures 12.2 cm in length. No intrapelvic duct dilatation. Gallbladder is contracted with stones. No adjacent inflammation. Normal pancreas. Normal adrenal glands. No renal obstruction or mass. Mild atherosclerosis aorta. Stomach is well distended with oral contrast. No small bowel obstruction. Diffuse moderate constipati on. Appendix is not visualized. There is extensive diverticular disease beginning in the descending c olon. No acute diverticulitis. Luminal narrowing to the sigmoid. No free fluid and no adenopathy. The re is a large varicosity extending from the portal vein along the LEFT lateral aorta to the pelvis. T here are large varicosities in the pelvis. This collateral vein is been previously described. Pelvic CT: No free fluid in the pelvis. There are large varicosities in the presacral location no theresa nopathy. Negative urinary bladder. Degenerative disc disease at L4-5 and L5-S1. CT/CT chest abdpel w/*[id number] IMPRESSION: 1. No significant adenopathy within the chest, abdomen or pelvis. 2. Normal size spleen. 3. No ascites. 4. Advanced distal colonic diverticular burden with a component of luminal miguel rowing and moderate constipation. 5. Chronic atelectasis at the LEFT lung base. 6. Contracted gallbladder with stones. No adjacent inflammation.
[2024-03-06] MEDS: iohexol 350 mg/mL 500 mL Btl (per mL) IV (16:05)
[2024-03-06] MEDS: iohexol 350 mg/mL 500 mL Btl (per mL) PO (16:05)
== END 2024-03-06 14:24 | disposition home or self-care (01) ==
LOC: RAD 14:24
PROVIDERS: PCP Family Medicine; Visit Provider Nurse Practitioner Family
DX: C85.90 Non-Hodgkin lymphoma, unspecified, unspecified site (principal); J43.2 Centrilobular emphysema; R91.8 Other nonspecific abnormal finding of lung field; K80.20 Calculus of gallbladder without cholecystitis without obstruction; I86.2 Pelvic varices; J98.11 Atelectasis
CPT/HCPCS: 71260; 74177; 99214; Q9967

== ENCOUNTER 2024-05-10 08:44 | Inpatient (IN) | payer MEDICARE, MEDICAID, SELFPAY ==
[2024-05-10] VITALS (27 sets, daily range): BP systolic 89–143; BP diastolic 53–92; PULSE 84–135; RESP 13–35; TEMP 36.4–37.1; O2SAT 88–95
--- NOTE | 2024-05-10 08:50 | ED.C_ITS ---
HPI - Psych 2 General: Chief Complaint: Overdose Stated Complaint: overdose Time Seen by Provider: 05/10/24 08:45 Source: patient Mode of arrival: ambulatory Limitations: no limitations History of Present Illness: 63-year-old male who history alcoholism states that he is going to kill himself he had taken an unknown amount of trazodone and mirtazapine this morning he is also been drinking vodka and attempt to kill himself. Patient is awake is answering questions states he is suicidal Associated symptoms: Reports depression and suicidal ideation Related Data Home Medications Medication Instructions Recorded Confirmed dolutegravir 50 mg-lamivudine 300 1 tab PO QAM 04/11/20 03/03/24 mg tablet (Dovato) sildenafil (pulm.hypertension) 20 20 mg PO TID 04/11/20 03/03/24 mg tablet macitentan 10 mg tablet (Opsumit) 10 mg PO QAM 06/29/20 03/03/24 multivitamin 1 tab PO QAM 06/29/20 03/03/24 mirtazapine 15 mg tablet 15 mg PO BEDTIME 02/10/21 03/03/24 testosterone 2 pump topical QAM 02/10/21 03/03/24 prednisolone acetate 1 % eye 1 drp ophthalmic (eye) BID 10/25/21 03/03/24 drops,suspension sulfamethoxazole 800 1 tab PO .MON,WED,Sun10/25/21 03/03/24 mg-trimethoprim 160 mg tablet apixaban 5 mg tablet (Eliquis) 5 mg PO BID 08/15/23 03/03/24 azelastine 137 mcg (0.1 %) nasal 2 spray intranasal BID 08/15/23 03/03/24 spray budesonide-formoterol HFA 80 2 puff inhalation BID 08/15/23 03/03/24 mcg-4.5 mcg/actuation aerosol inhaler (Symbicort) diltiazem HCl 30 mg tablet 30 mg PO QAM 08/15/23 03/03/24 fluconazole 50 mg tablet 50 mg PO QAM 08/15/23 03/03/24 trazodone 150 mg tablet 300 mg PO BEDTIME 08/15/23 03/03/24 Previous Rx's Medication Instructions Recorded potassium chloride 20 mEq 20 meq PO BID #6 tabs 07/03/22 tablet,extended release albuterol sulfate 90 mcg/actuation 2 inh inhalation 6XD PRN shortness 07/09/23 aerosol inhaler (Ventolin HFA) of breath or wheezing #8.5 grams ipratropium 0.5 mg-albuterol 3 mg 3 ml inhalation Q4H PRN shortness 08/15/23 (2.5 mg base)/3 mL nebulization of breath or wheezing #90 mL soln dexamethasone 6 mg tablet 6 mg PO DAILY #4 tabs 10/07/23 nicotine (polacrilex) 4 mg buccal 4 mg mucous membrane Q4H PRN 10/07/23 lozenge Nicotine Cravings #108 ea nicotine 21 mg/24 hr daily 1 patch transdermal DAILY #30 ea 10/07/23 transdermal patch cefuroxime axetil 500 mg tablet 500 mg PO BID 10 days #20 tabs 03/03/24 methylprednisolone 4 mg tablets in See Rx Instructions PO PER PKG DIR 03/03/24 a dose pack (Medrol (Ashwin)) #21 ea Allergies Allergy/AdvReac Type Severity Reaction Status Date / Time No Known Allergies Allergy Verified 03/03/24 12:31 Review of Systems 2 Const: Denies: fever(s), chills, body aches or change in appetite ENMT: Denies: throat pain or dental pain Card: Denies: chest pain Resp: Denies: dyspnea GI: Denies: abdominal pain, nausea, vomiting or diarrhea Musc: Denies: neck pain or back pain Skin/Breast: Denies: rash Neuro: Denies: headache(s) Psych: Reports: depression and suicidal ideation PFSH ED 2 PFSH: Medical History Alcohol dependence Closed fractures involving multiple regions of right lower extremity Suicide attempt Deliberate medication overdose Depression History of peptic ulcer disease Posttraumatic stress disorder GI bleed Was taken off Coumadin for a month in 2016 after a bleeding gastric ulcer, currently on Eliquis Anorexia COPD (chronic obstructive pulmonary disease) Severe COPD Pulmonary hypertension After PE Alcohol use disorder Major depressive disorder Meningitis Liver tumor Diverticulitis / Diverticulosis Hypogonadism Orchialgia Depressive disorder HIV (human immunodeficiency virus infection) Pulmonary embolism DVT of right leg, 2010 Colon polyps Atrial fibrillation Lymphoma 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 Treatment included 4 cycles of CHOP chemotherapy, completed in April 2003, along with TUBE AND ROD STRAIGHTENER prophylaxis with intrathecal methotrexate and prophylactic radiation to the right testicle. Surgical History H/O esophagogastroduodenoscopy 2005 -reflux esophagitis, superficial gastric erosions with hemorrhagic gastritis, duodenitis /2008 -reflux esophagitis, gastritis, small chronic gastric ulcer History of orchiectomy, unilateral L -- diffuse large B-cell lymphoma H/O hemorrhoidectomy H/O colonoscopy 2001 -diverticulosis, colon polyps / 2005 -diverticulosis, small telangiectasia / 01/2016 -diverticulosis with intrinsic stenosis and sigmoid Family History Other No pertinent family history Social History Smoking and tobacco/nicotine status: former use of tobacco/nicotine Quit status (tobacco/nicotine): has quit using Year quit tobacco: Former quit date comment: 7 years total tobacco use Alcohol intake: current Substance/Drug Use: never Lives independently: Yes Housing: House Physical Exam 2 Const: COMMON NORMALS: patient oriented x3 HENMT: COMMON NORMALS: normocephalic and atraumatic HEAD & SCALP: n ormocephalic and atraumatic Eye: COMMON NORMALS: Equal, round and reactive pupils present and EOMs intact bilaterally PUPIL: Yes Equal, round and reactive pupils present Neck/C-Spine: COMMON NORMALS: full ROM Chest: COMMONS NORMALS: normal inspection of the chest Resp: COMMON NORMALS: normal respiratory effort and clear to auscultation bilaterally AUSCULTATION: clear to auscultation bilaterally Cardio: COMMON NORMALS: regular rate, regular rhythm and No murmurs present (Cardio) RATE: regular rate RHYTHM: regular rhythm GI: COMMON NORMALS: Normal to inspection, nondistended, normoactive bowel sounds present, Soft to palpation, non-tender and no masses PALPATION: Yes Soft to palpation Extremity: COMMON NORMALS: normal to inspection and full ROM Neuro: COMMON NORMALS: patient oriented x3, moves all extremities and no focal motor deficits Psych: COMMON NORMALS: cooperative THOUGHT CONTENT: Yes Suicidality present Skin: COMMON NORMALS: no rashes or lesions noted and no wounds GENERAL SKIN EXAM: no rashes or lesions noted Course 2 Vital Signs: Vital signs: Vital Signs Temperature 97.6 F 05/10/24 08:45 Pulse Rate 101 H 05/10/24 08:45 Respiratory Rate 16 05/10/24 08:45 Blood Pressure 121/91 05/10/24 08:45 Pulse Oximetry 90 05/10/24 08:45 Oxygen Delivery Me thod Room Air 05/10/24 08:45 MDM - Psych Medical Decision Making Patient presents here with suicide attempt by overdose he is also intoxicated patient is placed in ICU hold movement to the ICU also spoke to psychiatrist who is consulted. Medical Records I reviewed the patient's medical records. Lab Data I reviewed the patient's lab results. 05/10/24 09:05 05/10/24 09:05 Laboratory Results WBC 6.28 10^3/uL (3.29-11.43) 05/10/24 09:05 RBC 4.93 10^6/uL (3.85-5.65) 05/10/24 09:05 Hgb 15.90 g/dL (11.27-16.99) 05/10/24 09:05 Hct 46.8 % (37-53) 05/10/24 09:05 MCV 94.9 fl (82-101) 05/10/24 09:05 MCH 32.3 pg (27-33) 05/10/24 09:05 MCHC 34.0 g/dL (30-55) 05/10/24 09:05 RDW 13.8 % (12.1-15.1) 05/10/24 09:05 Plt Count 121 10^3/cmm (157-399) L 05/10/24 09:05 MPV 8.6 fL (7.4-10.4) 05/10/24 09:05 Neut % (Auto) 59.5 % 05/10/24 09:05 Lymph % (Auto) 28.5 % 05/10/24 09:05 [facility] [place] % (Auto) 8.9 % 05/10/24 09:05 Eos % (Auto) 1.6 % 05/10/24 09:05 Baso % (Auto) 1.3 % 05/10/24 09:05 Neut # (Auto) 3.74 10^3/uL (1.8-7.7) 05/10/24 09:05 Lymph # (Auto) 1.8 10^3/uL (0.8-4.8) 05/10/24 09:05 [facility] [place] [facility] # (Auto) 0.6 10^3/uL (0.2-0.9) 05/10/24 09:05 Eos # (Auto) 0.1 10^3/uL (0.0-0.8) 05/10/24 09:05 Baso # (Auto) 0.1 10^3/uL (0.0-0.1) 05/10/24 09:05 Nucleated RBC % (auto) 0 % 05/10/24 09:05 Nucleated RBCs # 0.0 /100WBC 05/10/24 09:05 PT 14.20 SECONDS (12.1-14.9) 05/10/24 09:05 INR 1.07 (0.8-1.2) 05/10/24 09:05 Sodium 141 mmol/L (136-145) 05/10/24 09:05 Potassium 3.1 mmol/L (3.5-5.1) L 05/10/24 09:05 Chloride 101 mmol/L (98-107) 05/10/24 09:05 Carbon Dioxide 25 mmol/L (22-29) 05/10/24 09:05 Anion Gap 18.1 (5-19) 05/10/24 09:05 BUN 6 mg/dL (8-23) L 05/10/24 09:05 Creatinine 0.6 mg/dL (0.7-1.2) L 05/10/24 09:05 GFR Calculation 136.5 mL/min (90-130) H 05/10/24 09:05 Glucose 100 mg/dL (65-115) 05/10/24 09:05 Calculated Osmolality 290 mOsm/kg (285-295) 05/10/24 09:05 Calcium 7.6 mg/dL (8.5-10.5) L 05/10/24 09:05 Total Bilirubin 1.2 mg/dL (0.15-1.2) 05/10/24 09:05 AST 44 U/L (0-40) H 05/10/24 09:05 ALT 18 U/L (0-41) 05/10/24 09:05 Alkaline Phosphatase 143 U/L (40-130) H 05/10/24 09:05 Total Protein 6.5 g/dL (6.6-8.7) L 05/10/24 09:05 Albumin 3.9 g/dL (3.5-5.2) 05/10/24 09:05 Globulin 2.6 g/dL (1.3-4.6) 05/10/24 09:05 Salicylates < 0.3 mg/dL (3-10) L 05/10/24 09:05 Acetaminophen < 5.0 ug/mL (10-30) L 05/10/24 09:05 Ethyl Alcohol 323 mg/dL (0-10) H* 05/10/24 09:05 All radiology interpretation(s) finalized by discharge EKG Data EKG 1: I personally reviewed and interpreted this EKG as follows: EKG interpretation date: 05/10/24 EKG interpretation time: 09:40 Interpretation: nsr hr [address] or t wave abnormalities qrs 105 qtc 441 Discharge Plan Discharge Patient Disposition: Admitted As Inpatient Clinical Impression: Suicide attempt by multiple drug overdose, Alcohol use disorder, severe, dependence Condition: Stable Prescriptions: No Action cefuroxime axetil 500 mg tablet 500 mg PO BID 10 Days Qty: 20 0RF methylprednisolone [Medrol (Ashwin)] 4 mg tablets,dose pack See Rx Instructions PO PER PKG DIR Qty: 21 0RF Rx Instructions: PO PER PKG DIR for 6 days albuterol sulfate [Ventolin HFA] 90 mcg/actuation HFA aerosol inhaler 2 inh inhalation 6XD PRN (Reason: shortness of breath or wheezing) Qty: 8.5 2RF multivitamin Tablet 1 tab PO QAM Opsumit 10 mg tablet 10 mg PO QAM sildenafil (pulm.hypertension) 20 mg tablet 20 mg PO TID Dovato 50-300 mg tablet 1 tab PO QAM mirtazapine 15 mg tablet 15 mg PO BEDTIME testosterone 20.25 mg/1.25 gram (1.62 %) gel in metered-dose pump 2 pump topical QAM fluconazole 50 mg tablet 50 mg PO QAM azelastine 137 mcg (0.1 %) aerosol,spray 2 spray INTRANASAL BID diltiazem HCl 30 mg tablet 30 mg PO QAM budesonide-formoterol [Symbicort] 80-4.5 mcg/actuation HFA aerosol inhaler 2 puff INHALATION BID Eliquis 5 mg tablet 5 mg PO BID trazodone 150 mg tablet 300 mg PO BEDTIME ipratropium-albuterol 0.5 mg-3 mg(2.5 mg base)/3 mL solution for nebulization 3 ml inhalation Q4H PRN (Reason: shortness of breath or wheezing) Qty: 90 0RF sulfamethoxazole-trimethoprim 800-160 mg tablet 1 tab PO .MON,WED,FRI prednisolone acetate 1 % drops,suspension 1 drp ophthalmic (eye) BID Rx Instructions: right eye potassium chloride 20 mEq tablet extended release 20 meq PO BID Qty: 6 0RF dexamethasone 6 mg tablet 6 mg PO DAILY Qty: 4 0RF nicotine 21 mg/24 hr Patch 24 Hour 1 patch transdermal DAILY Qty: 30 3RF nicotine (polacrilex) 4 mg Lozenge 4 mg mucous membrane Q4H PRN (Reason: Nicotine Cravings) Qty: 108 3RF Referrals: Rafael Kendall MD [Primary Care Provider] - Coding Level of Care Code ED Database Designer for Osmin Ordonez
[2024-05-10 09:11] LABS: Basophils # 0.1 10^3/uL (0.0-0.1); Basophils % 1.3 %; Eosinophils # 0.1 10^3/uL (0.0-0.8); Eosinophils % 1.6 %; Hematocrit 46.8 % (37-53); Lymphocytes # 1.8 10^3/uL (0.8-4.8); Lymphocytes % 28.5 %; Mean Corpuscular Hemoglobin 32.3 pg (27-33); Mean Corpuscular Volume 94.9 fl (82-101); Mean Platelet Volume 8.6 fL (7.4-10.4); Monocytes # 0.6 10^3/uL (0.2-0.9); Monocytes % 8.9 %; Neutrophils # 3.74 10^3/uL (1.8-7.7); Neutrophils % 59.5 %; Nucleated Red Blood Cells % 0 %; Platelet Count 121 10^3/cmm (157-399); Red Blood Count 4.93 10^6/uL (3.85-5.65); Red Cell Distribution Width 13.8 % (12.1-15.1); White Blood Count 6.28 10^3/uL (3.29-11.43)
[2024-05-10 09:24] LABS: INR 1.07 (0.8-1.2)
--- NOTE | 2024-05-10 09:32 | PC.NURSE ---
When patient arrived he was beligerent and altered. Patient was covered in feces and urine. I cut the patient's shirt and sweatpants off of him so that we could clean him up and assess him. Patient was upset that we cut his clothes off. Patient did attempt to urinate in a urinal, could not. We did an in and out catheter on the patient to obtain urine.
[2024-05-10 09:33] LABS: Acetaminophen < 5.0 ug/mL (10-30); Alanine Aminotransferase 18 U/L (0-41); Albumin Level 3.9 g/dL (3.5-5.2); Alkaline Phosphatase 143 U/L (40-130); Anion Gap 18.1 (5-19); Aspartate Amino Transferase 44 U/L (0-40); Blood Urea Nitrogen 6 mg/dL (8-23); Calcium 7.6 mg/dL (8.5-10.5); Carbon Dioxide 25 mmol/L (22-29); Chloride 101 mmol/L (98-107); Globulin 2.6 g/dL (1.3-4.6); Glomerular Filtration Rate 136.5 mL/min (90-130); Glucose 100 mg/dL (65-115); Osmolality Calculated 290 mOsm/kg (285-295); Potassium 3.1 mmol/L (3.5-5.1); Salicylate < 0.3 mg/dL (3-10); Sodium 141 mmol/L (136-145); Total Bilirubin 1.2 mg/dL (0.15-1.2); Total Protein 6.5 g/dL (6.6-8.7)
[2024-05-10 09:36] LABS: Alcohol Level 323 mg/dL (0-10)
--- NOTE | 2024-05-10 09:40 | ECG_ITS ---
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
--- NOTE | 2024-05-10 10:02 | PM.HP ---
Providers/Chief Complaint Primary Care Provider: Rafael Kendall MD Chief Complaint: overdose History of Present Illness Flakito Almanzar is a 63 year old male With past medical history of polysubstance abuse, chronic alcohol dependence, drug overdose with trazodone in the past requiring intubation, COPD, atrial fibrillation, depression presented to the hospital today stating that he is going to kill himself. He took an unknown amount of trazodone and mirtazapine this morning and also has been drinking vodka in the attempt to kill himself. In the ER patient awake answering questions and stating he is suicidal. Patient is a very poor historian and keeps covering his face with a blanket and does not want to talk. I asked him several questions however he do not really want to answer them. He states he does not think he took too many tablets. ER: 121/91, 16, 101, 97.6, saturating 90% on room air. 96-hour hold was initiated. ER doc spoke to Dr. Bang who will be eventually taking patient to Neuropsych Unit. Patient will need to be monitored in the ICU for 24 hours prior to transferring to the Neuropsych Unit secondary to his overdose above. EKG shows no ST or T wave abnormalities, QRS 105, QTc 441. Labs on arrival potassium 3.1, creatinine 0.6, AST 44, ALT 18, alkaline phosphatase 143, salicylates less than 0.3, acetaminophen less than 5, alcohol level 323. Medications/Allergies Home Medications Medication Instructions Recorded Confirmed Last Taken Type dolutegravir 50 mg-lamivudine 300 1 tab PO QAM 04/11/20 03/03/24 10/05/23 History mg tablet (Dovato) sildenafil (pulm.hypertension) 20 20 mg PO TID 04/11/20 03/03/24 10/05/23 History mg tablet macitentan 10 mg tablet (Opsumit) 10 mg PO QAM 06/29/20 03/03/24 10/05/23 History multivitamin 1 tab PO QAM 06/29/20 03/03/24 10/05/23 History mirtazapine 15 mg tablet 15 mg PO BEDTIME 02/10/21 03/03/24 10/04/23 History testosterone 2 pump topical QAM 02/10/21 03/03/24 08/15/23 History prednisolone acetate 1 % eye 1 drp ophthalmic (eye) BID 10/25/21 03/03/24 Unknown History drops,suspension sulfamethoxazole 800 1 tab PO .MON,SUN,Sun10/25/21 03/03/24 08/15/23 History mg-trimethoprim 160 mg tablet potassium chloride 20 mEq 20 meq PO BID #6 tabs 01/22/22 03/03/24 10/05/23 Rx tablet,extended release albuterol sulfate 90 mcg/actuation 2 inh inhalation 6XD PRN shortness 07/09/23 03/03/24 Unknown Rx aerosol inhaler (Ventolin HFA) of breath or wheezing #8.5 grams apixaban 5 mg tablet (Eliquis) 5 mg PO BID 08/15/23 03/03/24 10/05/23 History azelastine 137 mcg (0.1 %) nasal 2 spray intranasal BID 08/15/23 03/03/24 Unknown History spray budesonide-formoterol HFA 80 2 puff inhalation BID 08/15/23 03/03/24 10/05/23 History mcg-4.5 mcg/actuation aerosol inhaler (Symbicort) diltiazem HCl 30 mg tablet 30 mg PO QAM 08/15/23 03/03/24 10/05/23 History fluconazole 50 mg tablet 50 mg PO QAM 08/15/23 03/03/24 10/05/23 History ipratropium 0.5 mg-albuterol 3 mg 3 ml inhalation Q4H PRN shortness 08/15/23 03/03/24 Unknown Rx (2.5 mg base)/3 mL nebulization of breath or wheezing #90 mL soln trazodone 150 mg tablet 300 mg PO BEDTIME 08/15/23 03/03/24 10/04/23 History dexamethasone 6 mg tablet 6 mg PO DAILY #4 tabs 10/07/23 03/03/24 10/05/23 Rx nicotine (polacrilex) 4 mg buccal 4 mg mucous membrane Q4H PRN 10/07/23 03/03/24 Unknown Rx lozenge Nicotine Cravings #108 ea nicotine 21 mg/24 hr daily 1 patch transdermal DAILY #30 ea 10/07/23 03/03/24 Unknown Rx transdermal patch cefuroxime axetil 500 mg tablet 500 mg PO BID 10 days #20 tabs 03/03/24 03/03/24 Unknown Rx methylprednisolone 4 mg tablets in See Rx Instructions PO PER PKG DIR 03/03/24 03/03/24 Unknown Rx a dose pack (Medrol (Ashwin)) #21 ea Allergies Allergy/AdvReac Type Severity Reaction Status Date / Time No Known Allergies Allergy Verified 03/03/24 12:31 PFSH Acute PFSH: Medical History Alcohol dependence Closed fractures involving multiple regions of right lower extremity Suicide attempt Deliberate medication overdose Depression History of peptic ulcer disease Posttraumatic stress disorder GI bleed Was taken off Coumadin for a month in 2016 after a bleeding gastric ulcer, currently on Eliquis Anorexia COPD (chronic obstructive pulmonary disease) Severe COPD Pulmonary hypertension After PE Alcohol use disorder Major depressive disorder Meningitis Liver tumor Diverticulitis / Diverticulosis Hypogonadism Orchialgia Depressive disorder HIV (human immunodeficiency virus infection) Pulmonary embolism DVT of right leg, 2009 Colon polyps Atrial fibrillation Lymphoma 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 Treatment included 4 cycles of CHOP chemotherapy, completed in April 2003, along with MANAGER OF APPLICATIONS DEVELOPMENT prophylaxis with intrathecal methotrexate and prophylactic radiation to the right testicle. Surgical History H/O esophagogastroduodenoscopy 2005 -reflux esophagitis, superficial gastric erosions with hemorrhagic gastritis, duodenitis /2008 -reflux esophagitis, gastritis, small chronic gastric ulcer History of orchiectomy, unilateral L -- diffuse large B-cell lymphoma H/O hemorrhoidectomy H/O colonoscopy 2001 -diverticulosis, colon polyps / 2005 -diverticulosis, small telangiectasia / 01/2016 -diverticulosis with intrinsic stenosis and sigmoid Family History Other No pertinent family history Social History Smoking and tobacco/nicotine status: former use of tobacco/nicotine Quit status (tobacco/nicotine): has quit using Year quit tobacco: 1980s Former quit date comment: 7 years total tobacco use Alcohol intake: current Substance/Drug Use: never Lives independently: Yes Housing: House Vitals/I&O/Wt Last Vital Signs Temp 97.6 F 05/10/24 08:45 Pulse 101 H 05/10/24 08:45 Resp 16 05/10/24 08:45 BP 121/91 05/10/24 08:45 Pulse Ox 90 05/10/24 08:45 O2 Del Method Room Air 05/10/24 08:45 Physical Exam Narrative: General: Alert oriented x3, patient seen sitting up in bed. No acute distress. HEENT: Normocephalic, atraumatic, EOMI, breathing room air. Cardio: Regular rate rhythm, normal S1-S2, Respiratory: Mainly clear to auscultation bilaterally, diminished at bases GI: Abdomen soft, nontender, nondistended, bowel sounds + Extremities: No edema bilateral lower extremity Urinary Catheter Management: Barba: Cath Placed During This Visit: yes Urinary Catheter Date of Insertion: 12/25/21 Urinary Catheter Time of Insertion: 12:30 Data 05/10/24 09:05 05/10/24 09:05 A&P Assessment and plan (1) Suicide attempt: (2) Intentional overdose of trazodone: (3) Major depressive disorder, recurrent: (4) Alcohol use disorder, severe, dependence: (5) COPD (chronic obstructive pulmonary disease): Plan #Suicide attempt #Overdose on trazodone #Intubated for airway protection #Alcohol Abuse/Alcohol Intoxication #Positive HIV status #Pulmonary hypertension ? Serial EKGs to watch for QT prolongation ? Seizure precautions ? 96-hour hold ? Once stable medically, will transfer to psychiatry for further management - Monitor for seizure. - Hold all home medications are this time. - Thiamine, Folic acid ? Confirm home medications. And then we will continue the once deemed appropriate at this time. ? Check baseline chest x-ray. ? Check lactic acid. ? Ordered normal saline bolus 1 L and placed on continuous fluids at 125 cc/h. ? Patient is currently intoxicated with alcohol and will not provide me with a history. He is a very poor historian. #History of atrial fibrillation ? On Eliquis 5 mg twice daily at home. I do not see any andre blocking agent on his home medication Full code DVT prophylaxis Heparin Keep NPO Attestations Medical Necessity Statement*: 96-hour hold, suicide attempt, drug overdose, alcohol intoxication Diagnoses Suicide attempt T14.91XA Intentional overdose of trazodone T43.212A Major depressive disorder, recurrent F33.9 Alcohol use disorder, severe, dependence F10.20 COPD (chronic obstructive pulmonary disease) J44.9
--- NOTE | 2024-05-10 10:21 | PC.NURSE ---
Called poison control, spoke with MIRIAN Pike, she states since we are unsure of the time of ingestion of the pills and alcohol, she recommended that the patient be monitored cardiac silva and hemodynamically for at least 4 to 5 hours prior to being placed in a inpatient psych unit. Also she stated that the alcohol could cause heightened affects to the medicines.
[2024-05-10 10:33] LABS: Amphetamines Screen Urine Negative (Negative); Barbiturates Screen Urine Negative (Negative); Benzodiazepines Screen Urine Negative (Negative); Cocaine Screen Urine Negative (Negative); Opiate Screen Urine Negative (Negative); PCP Screen Urine Negative (Negative); THC Screen Urine Negative (Negative)
[2024-05-10 10:38] LABS: Lactic Sepsis W/Reflex 4.7 mmol/L (0.5-2.2)
[2024-05-10 10:52] LABS: Bilirubin Urine Negative (Negative); Blood Urine Negative (Negative); Glucose Urine UA Negative (Normal); Ketones Urine Negative (Negative); Leukocyte Esterase Urine Negative (Negative); Nitrate Urine Negative (Negative); Protein Urine Negative (Negative); Specific Gravity, Urine 1.008 (1.005-1.030); Urine Appearance Clear (CLEAR); Urine Color Yellow (Yellow)
[2024-05-10] MEDS: sodium chloride 0.9% 1,000 ML 999 ML IV (10:53)
[2024-05-10 10:56] LABS: Vitamin B12 468 pg/mL (232-1245)
[2024-05-10 10:57] LABS: Add Urine Microscopic? YES; Bacteria Urine None Seen /hpf; Hyaline Casts Urine 0-4 /lpf; RBC Urine 0-2 /hpf (0-2); Squamous Epithelial Cell Urine 0-5 /hpf (0-5); WBC Urine 0-5 /hpf (0-5)
[2024-05-10 11:12] LABS: UA Slide Review UA Slide Review Perf
[2024-05-10 12:06] LABS: Reflex Lactate Order REFLEX LACTIC ORDERD
--- NOTE | 2024-05-10 12:47 | ECG_ITS ---
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
[2024-05-10 13:10] LABS: Lactic Acid level (Lactate) 4.6 mmol/L (0.5-2.2)
--- NOTE | 2024-05-10 13:19 | PC.NURSE ---
96 hour hold right read at 1030am to patient.
--- NOTE | 2024-05-10 14:22 | PC.NURSE ---
Mother on unit and took cellphone home at patient's request.
[2024-05-10] MEDS: heparin 5,000 unit/mL INJ 1 mL 5000 UNIT SUBCUT (14:48)
[2024-05-10] MEDS: sodium chloride 0.9% 1,000 ML 125 ML IV ×2 (14:59→20:02)
--- NOTE | 2024-05-10 16:15 | ECG_ITS ---
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
--- NOTE | 2024-05-10 17:42 | XRR_ITS ---
PROCEDURE INFORMATION: Exam: XR Chest Exam date and time: 05/10/2024 7:29 PM Age: 63 years old Clinical indication: Patient HX: Cough; SOB; Hiv+; Additional info: Cough; SOB; Hiv+ TECHNIQUE: Imaging protocol: Radiologic exam of the chest. Views: 1 view. COMPARISON: CT chest abdpel w/*[id number] 03/06/2024 3:55 PM FINDINGS: Lungs: No focal consolidation. Emphysematous changes. Mid to lower right lung hazy opacities compatible with atelectasis or developing infection in the proper clinical setting. Pleural spaces: No evidence of pneumothorax. No evidence of pleural effusion. Heart/Mediastinum: Cardiomediastinal silhouette is within normal limits. Bones/joints: No evidence of acute osseous abnormality. XR/XR chest 1V portable [id number] IMPRESSION: 1. Mid to lower right lung hazy opacities compatible with atelectasis or developing infection in the proper clinical setting. 2. Emphysematous changes.
[2024-05-10] MEDS: ondansetron 2 mg/ML SDV 2 mL 4 MG IVP (17:51)
[2024-05-10] MEDS: potassium chloride ER 20 mEq Tablet 40 MEQ PO (18:21)
[2024-05-10 18:39] LABS: Procalcitonin 0.04 ng/mL (0-0.5)
--- NOTE | 2024-05-10 19:15 | ECG_ITS ---
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
[2024-05-10] MEDS: nicotine 21 mg Patch 1 PATCH TRANSDERMA (20:32)
[2024-05-10] MEDS: apixaban 5 mg Tablet PO (20:51)
--- NOTE | 2024-05-10 22:44 | ECG_ITS ---
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1960 Requested By: Dianne Galvan Order Number: [id number] Papo MD: ELADIA NIETO Measurements Intervals [place] Rate: 100 P: 81 SD: 163 QRS: 53 QRSD: 89 T: 80 QT: 372 QTc: 481 Interpretive Statements SINUS TACHYCARDIA WITH OCCASIONAL VENTRICULAR PREMATURE COMPLEXES WITH OCCASIONAL SUPRAVENTRICULAR PREMATURE COMPLEXES ABNORMAL RHYTHM ECG Compared to ECG 05/10/2024 14:24:16 Ventricular premature complex(es) now present Sinus rhythm no longer present Electronically Signed On 05-13-2024 21:23:39 CDT by ELADIA NIETO [email or web address]
[2024-05-10] MEDS: LORazepam 2 mg/mL INJ 1 mL IVP (23:41)
[2024-05-11] VITALS (33 sets, daily range): BP systolic 121–155; BP diastolic 71–111; PULSE 87–123; RESP 13–28; TEMP 36.6–37.3; O2SAT 87–96; BMI 25.2
[2024-05-11] MEDS: sodium chloride 0.9% 1,000 ML 125 ML IV (03:32)
[2024-05-11 05:17] LABS: Basophils % 0.7 %; Eosinophils # 0.1 10^3/uL (0.0-0.8); Eosinophils % 1.8 %; Hematocrit 41.2 % (37-53); Lymphocytes # 1.4 10^3/uL (0.8-4.8); Lymphocytes % 24.6 %; Mean Corpuscular HGB Conc 33.7 g/dL (30-55); Mean Corpuscular Hemoglobin 32.8 pg (27-33); Mean Corpuscular Volume 97.2 fl (82-101); Monocytes # 0.4 10^3/uL (0.2-0.9); Monocytes % 7.7 %; Neutrophils # 3.62 10^3/uL (1.8-7.7); Neutrophils % 65.2 %; Nucleated Red Blood Cells % 0 %; Platelet Count 112 10^3/cmm (157-399); Red Blood Count 4.24 10^6/uL (3.85-5.65); Red Cell Distribution Width 13.5 % (12.1-15.1); White Blood Count 5.56 10^3/uL (3.29-11.43)
[2024-05-11 05:47] LABS: Alanine Aminotransferase 18 U/L (0-41); Albumin Level 3.4 g/dL (3.5-5.2); Alkaline Phosphatase 128 U/L (40-130); Anion Gap 11.5 (5-19); Aspartate Amino Transferase 61 U/L (0-40); Blood Urea Nitrogen 4 mg/dL (8-23); Calcium 7.2 mg/dL (8.5-10.5); Carbon Dioxide 25 mmol/L (22-29); Chloride 106 mmol/L (98-107); Globulin 2.3 g/dL (1.3-4.6); Glomerular Filtration Rate 168.5 mL/min (90-130); Glucose 97 mg/dL (65-115); Magnesium 1.5 mg/dL (1.7-2.3); Osmolality Calculated 285 mOsm/kg (285-295); Potassium 3.5 mmol/L (3.5-5.1); Sodium 139 mmol/L (136-145); Total Protein 5.7 g/dL (6.6-8.7)
[2024-05-11 05:55] LABS: Creatinine Clr Calc Pharmacy 169.2011
[2024-05-11] MEDS: LORazepam 2 mg/mL INJ 1 mL IVP ×3 (05:55→23:53)
[2024-05-11] MEDS: ipratropium-albuterol 3 mL Neb INHALATION (07:43)
[2024-05-11] MEDS: folic acid 1 mg Tablet PO (09:09)
[2024-05-11] MEDS: nicotine 21 mg Patch 1 PATCH TRANSDERMA (09:09)
[2024-05-11] MEDS: thiamine 100 mg Tablet PO (09:09)
[2024-05-11] MEDS: multivitamin therapeutic Tablet 1 TAB PO (09:09)
[2024-05-11] MEDS: apixaban 5 mg Tablet PO ×2 (09:11→20:59)
--- NOTE | 2024-05-11 09:19 | P.PN_ITS ---
Subjective 2 Subjective: This morning patient is tachycardic Awake and alert GCS 15 Stating that he is not suicidal He just started drinking again and got intoxicated and called EMS by himself Vitals/I&O/Wt Last Vital Signs Temp 99.1 F 05/11/24 04:00 Pulse 98 05/11/24 07:50 Resp 16 05/11/24 07:43 BP 144/100 05/11/24 06:00 Pulse Ox 94 05/11/24 07:43 O2 Del Method Nasal Cannula 05/11/24 07:43 O2 Flow Rate 2 05/11/24 07:43 05/10/24 05/11/24 05/11/24 22:59 06:59 14:59 Intake Total 3848.00 / 3848.00 1177.5 / 5025.50 Output Total 1600 / 1600 1850 / 3450 Balance 2248.00 / 2248.00 -672.5 / 1575.50 Weight last 48 hrs Weight 82.3 kg Weight 82.3 kg Weight 82.282 kg Physical Exam 2 Narrative: Patient is awake and alert G significant Tachycardia Sinus tach GCS 15 Present above Nonfocal neuroexam Uses 4 L of oxygen at home as well Currently on 4 L no active respiratory distress Urinary Catheter Management: Barba: Cath Placed During This Visit: yes Urinary Catheter Date of Insertion: 12/25/21 Urinary Catheter Time of Insertion: 12:30 Data 05/11/24 04:43 05/11/24 04:43 A&P Assessment and plan (1) Suicide attempt by multiple drug overdose: (2) Alcohol use disorder, severe, dependence: (3) COPD (chronic obstructive pulmonary disease): Plan Will resume his home medications including sildenafil, Dovato, Bactrim, For A-fib continue Eliquis and added Cardizem Discontinue IV fluids Patient is awake and alert Denying suicidal ideation stating that he got intoxicated after 85 days of being sober Once tachycardia improved we can move to stress unit/NPU Continue cardiac diet Attestations 2 Medical Necessity Statement*: Can be transferred to neuropsych Diagnoses Suicide attempt by multiple drug overdose T50.912A Alcohol use disorder, severe, dependence F10.20 COPD (chronic obstructive pulmonary disease) J44.9
[2024-05-11] MEDS: dilTIAZem ER (12HR) 60 mg Capsule PO ×2 (10:30→19:27)
--- NOTE | 2024-05-11 11:05 | PC.NURSE ---
Poison Control called to follow-up on pt. Pt no s/s. VSS. CIWAs less than 14 no issues this am. He is back to him normal self that this nurse knows from pior admissions. Poison Control closing case.
--- NOTE | 2024-05-11 13:51 | W.PM.NPUH&PS ---
Providers/Chief Complaint Admitting Physician: Dianne Galvan MD Primary Care Provider: Rafael Kendall MD Chief Complaint: overdose HPI NPU History of Present Illness Flakito Almanzar is a 63 year old male who presented to the emergency department following report: Chief Complaint: Overdose Stated Complaint: overdose Time Seen by Provider: 05/10/24 08:45 Source: patient Mode of arrival: ambulatory Limitations: no limitations History of Present Illness: 63-year-old male who history alcoholism states that he is going to kill himself he had taken an unknown amount of trazodone and mirtazapine this morning he is also been drinking vodka and attempt to kill himself. Patient is awake is answering questions states he is suicidal Associated symptoms: Reports depression and suicidal ideation. He was admitted to the ICU for definitive treatment of those issues. A psychiatric consult quested to assist in determining level of care necessary following treatment of his overdose and he is deemed medically clear. He is known to inpatient and outpatient psychiatric care at [facility] through inpatient Services as well as outpatient services. He presents today as he often does with significant minimalization of his circumstance. First he denied that an overdose occurred. He reported that staff is able to count his medication and identify that he did not take an overdose. This has not been verified at this point. Preliminary conversation suggest no truth to this. He also reports that since was last seen inpatient. He has experienced significant success with his sobriety. He reports 50+, 70+ and 130+ days of sobriety in the past 2 years and reports he has only been due for a week. also needs to be corroborated. Otherwise he denies any problems other than needing to get his interlock car breathalyzer recalibrated. An excerpt of his last discharge summary is included below for history and context. Per his 01/17/2022 [facility] inpatient psychiatric discharge summary: Discharge Diagnosis (1) Refeeding syndrome: Status: Acute (2) C. difficile diarrhea: Status: Acute (3) Respiratory failure with hypoxia and hypercapnia: Status: Acute (4) Altered mental status: Status: Acute (5) Acute hypoxemic respiratory failure: Status: Acute (6) Intentional overdose of trazodone: Status: Acute (7) Alcohol intoxication: Status: Acute (8) Suicide attempt: Status: Acute (9) Alcohol use disorder, severe, dependence: Status: Acute (10) HIV (human immunodeficiency virus infection): Status: Acute Qualifiers: HIV symptom status: asymptomatic, with no history of HIV-related illness Qualified Code(s): Z21 - Asymptomatic human immunodeficiency virus [HIV] infection status (11) COPD (chronic obstructive pulmonary disease): Status: Acute Permanent problem details: Severe COPD (12) Major depressive disorder, recurrent: Status: Chronic Reason for Visit Reason for Visit: AMS Brief History: History of Present Illness Flakiot Almanzar is a 61 year old male who presented to the emergency department with the following report: Chief complaint: Psychiatric Symptoms Stated complaint: AMS Time Seen by Provider: 12/25/21 11:30 History of Present Illness: Patient is a 61-year-old male with history of chronic alcohol dependence, COPD, atrial fibrillation depression who presents the emergency room with concerns for altered mental status. Patient told EMS that he had an abnormal ingestion of trazodone. Since then, patient has become confused and altered. Patient is intermittent somnolent and confused and unable to follow commands at this time. Patient reports feeling suicidal earlier today. On arrival, patient was noted to be satting 82% on 6 L of oxygen. Onset: unknown Duration:ongoing Location:home Severity:severe He was admitted to the ICU, intubated and treated for his presentation by the hospitalist. Ultimately he was extubated and transferred to [facility] for continued treatment of his other medical ailments while keeping him safe from the psychiatric concerns. He ultimately additionally was diagnosed with C. difficile and is getting the antibiotics but still having 6 episodes of diarrhea at least a day and is in contact isolation due to this concern. He presents today reporting that his 96-hour hold will be up today and he plans to sign out AMA. He is known to this life underwriter from multiple past hospitalizations and presents most likely did not know situations recently having had we will significant overdoses but having little to no insight into the dangerousness of his situation. This hospitalization he presented with a blood alcohol of 531. We had a lengthy discussion about this being a toxic level of alcohol ingestion that ended up itself could lead to and he spent much of the time of the interview promising that he would not drink again. We discussed the lack of weight that he will probably not to drink has after 3 years of caring for him and this escalating self destroyed behavior. All he can muster is that he needs to go home because he has a dog and he has a . We discussed the danger of his C. difficile the significant infectious disease concerns of him leaving the building, spreading it to others as well as the health medications were held given his other comorbidities and all he could muster was I need to go home. We discussed that it was completely unsafe for him to do that between a suicide attempt, discontinue drinking and his lack of insight into his health situation that he would review the 96-hour hold paperwork to make sure it was managed appropriately and would initiate a 21-day hold if necessary but that he would not be going home. Hospital Course During the hospitalization, patient had routine laboratory studies which were within normal limits except for few outliers. Additionally there was a general medical evaluation which was also within normal limits and revealed no new acute processes. He was originally resistant to considering treatment for alcohol dependence and minimized the potential lethal consequences of his medical conditions. He originally had spent several days on the he initially presented to the emergency department with a blood alcohol 531 and reporting overdose on trazodone. He was admitted to the hospital in the ICU initially intubated but then successfully extubated and then he was stepdown to the MedSurg unit. MedSurg unit it was determined that he had C. difficile and he was placed on a 96 hour hold which eventually was converted legally to a 21-day hold was requested as he was trying to leave AGAINST MEDICAL ADVICE with the C. difficile active and without any psychiatric interventions. Just prior to the 21-day hold he was transferred to the neuropsychiatric unit where he slowly acclimated to the individual, group and milieu therapies provided on the unit he started to gain some improved insight into his situation and was more open to working with the treatment team on interventions and aftercare including being signed up for inpatient rehab at [facility]. He also To be started with a goal of differentiated at his appointment with his primary care doctor which was scheduled for February 06, 2022. The ongoing medical evaluation on the neuropsychiatric unit and was able to contract for safety outside the hospital prior to discharge. [place] [facility] put him on their waiting list and he endorsed a plan to follow-up with him after when a bed would be available. Discharge Summary: At the time of discharge, he denied psychosis or lethality. Mood and anxiety were well managed. Patient endorsed a plan to avoid all drugs of abuse and follow-up with the aftercare recommendations of the treatment team. Patient was evaluated and deemed to be absent credible lethality, and had achieved the maximum benefit from an inpatient hospitalization, so was discharged. Meds NPU Home Medications Medication Instructions Recorded Confirmed Last Taken Type dolutegravir 50 mg-lamivudine 300 1 tab PO QAM 04/11/20 03/03/24 10/05/23 History mg tablet (Dovato) sildenafil (pulm.hypertension) 20 20 mg PO TID 04/11/20 03/03/24 10/05/23 History mg tablet macitentan 10 mg tablet (Opsumit) 10 mg PO QAM 06/29/20 03/03/24 10/05/23 History multivitamin 1 tab PO QAM 06/29/20 03/03/24 10/05/23 History mirtazapine 15 mg tablet 15 mg PO BEDTIME 02/10/21 03/03/24 10/04/23 History testosterone 2 pump topical QAM 02/10/21 03/03/24 08/15/23 History prednisolone acetate 1 % eye 1 drp ophthalmic (eye) BID 10/25/21 03/03/24 Unknown History drops,suspension sulfamethoxazole 800 1 tab PO .MON,WED,Sun10/25/21 03/03/24 08/15/23 History mg-trimethoprim 160 mg tablet potassium chloride 20 mEq 20 meq PO BID #6 tabs 01/22/22 03/03/24 10/05/23 Rx tablet,extended release albuterol sulfate 90 mcg/actuation 2 inh inhalation 6XD PRN shortness 07/09/23 03/03/24 Unknown Rx aerosol inhaler (Ventolin HFA) of breath or wheezing #8.5 grams apixaban 5 mg tablet (Eliquis) 5 mg PO BID 08/15/23 03/03/24 10/05/23 History azelastine 137 mcg (0.1 %) nasal 2 spray intranasal BID 08/15/23 03/03/24 Unknown History spray budesonide-formoterol HFA 80 2 puff inhalation BID 08/15/23 03/03/24 10/05/23 History mcg-4.5 mcg/actuation aerosol inhaler (Symbicort) diltiazem HCl 30 mg tablet 30 mg PO QAM 08/15/23 03/03/24 10/05/23 History fluconazole 50 mg tablet 50 mg PO QAM 08/15/23 03/03/24 10/05/23 History ipratropium 0.5 mg-albuterol 3 mg 3 ml inhalation Q4H PRN shortness 08/15/23 03/03/24 Unknown Rx (2.5 mg base)/3 mL nebulization of breath or wheezing #90 mL soln trazodone 150 mg tablet 300 mg PO BEDTIME 08/15/23 03/03/24 10/04/23 History dexamethasone 6 mg tablet 6 mg PO DAILY #4 tabs 10/07/23 03/03/24 10/05/23 Rx nicotine (polacrilex) 4 mg buccal 4 mg mucous membrane Q4H PRN 10/07/23 03/03/24 Unknown Rx lozenge Nicotine Cravings #108 ea nicotine 21 mg/24 hr daily 1 patch transdermal DAILY #30 ea 10/07/23 03/03/24 Unknown Rx transdermal patch cefuroxime axetil 500 mg tablet 500 mg PO BID 10 days #20 tabs 03/03/24 03/03/24 Unknown Rx methylprednisolone 4 mg tablets in See Rx Instructions PO PER PKG DIR 03/03/24 03/03/24 Unknown Rx a dose pack (Medrol (Ashwin)) #21 ea Allergies Allergy/AdvReac Type Severity Reaction Status Date / Time No Known Allergies Allergy Verified 03/03/24 12:31 PFSH NPU PFSH: Medical History Alcohol dependence Closed fractures involving multiple regions of right lower extremity Suicide attempt Deliberate medication overdose Depression History of peptic ulcer disease Posttraumatic stress disorder GI bleed Was taken off Coumadin for a month in 2016 after a bleeding gastric ulcer, currently on Eliquis Anorexia COPD (chronic obstructive pulmonary disease) Severe COPD Pulmonary hypertension After PE Alcohol use disorder Major depressive disorder Meningitis Liver tumor Diverticulitis / Diverticulosis Hypogonadism Orchialgia Depressive disorder HIV (human immunodeficiency virus infection) Pulmonary embolism DVT of right leg, 2010 Colon polyps Atrial fibrillation Lymphoma 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 Surgical History H/O esophagogastroduodenoscopy 2005 -reflux esophagitis, superficial gastric erosions with hemorrhagic gastritis, duodenitis /2008 -reflux esophagitis, gastritis, small chronic gastric ulcer History of orchiectomy, unilateral L -- diffuse large B-cell lymphoma H/O hemorrhoidectomy H/O colonoscopy 2001 -diverticulosis, colon polyps / 2005 -diverticulosis, small telangiectasia / 01/2016 -diverticulosis with intrinsic stenosis and sigmoid Family History Other No pertinent family history Social History Smoking and tobacco/nicotine status: former use of tobacco/nicotine Quit status (tobacco/nicotine): has quit using Year quit tobacco: Former quit date comment: 7 years total tobacco use Alcohol intake: current Substance/Drug Use: never Lives independently: Yes Housing: House Mental Status Exam MSE Comments: This is a slender white male in hospital gown with adequate grooming and eye contact.? Patient with nasal cannula in.? No abnormal movement except for resolving mild psychomotor retardation.? Cooperative with exam in no acute distress.? Speech was more normal rate and volume.? Mood described as good and his affect was mood congruent. ? Thought process organized.? Thought content: Patient denied suicidal or homicidal ideation, there were no delusions reported or noted, he denies any auditory or visual hallucinations.? Attention and concentration were limited and memory was unreliable but none were formally tested.? He is alert and oriented x3.? Insight was limited regarding his mental health issues and his judgment was limited versus impaired. and his impulse control remains impaired. Vitals/I&O/Wt Last Vital Signs Temp 98 F 05/11/24 08:00 Pulse 113 H 05/11/24 12:00 Resp 17 05/11/24 12:00 BP 136/90 05/11/24 12:00 Pulse Ox 92 05/11/24 12:00 O2 Del Method Nasal Cannula 05/11/24 12:00 O2 Flow Rate 4 05/11/24 12:00 05/10/24 05/11/24 05/11/24 22:59 06:59 14:59 Intake Total 3848.00 / 3848.00 1177.5 / 5025.50 1999 Output Total 1600 / 1600 1850 / 3450 1650 / 1650 Balance 2248.00 / 2248.00 -672.5 / 1575.50 350 / 350 Weight last 48 hrs Weight 82.3 kg Weight 82.3 kg Weight 82.282 kg Physical Exam Urinary Catheter Management: Barba: Cath Placed During This Visit: yes Urinary Catheter Date of Insertion: 12/25/21 Urinary Catheter Time of Insertion: 12:30 Data NPU 05/11/24 04:43 05/11/24 04:43 A&P Assessment and plan (1) Refeeding syndrome: (2) Respiratory failure with hypoxia and hypercapnia: (3) Acute hypoxemic respiratory failure: (4) Intentional overdose of trazodone: (5) Alcohol intoxication: (6) Suicide attempt: (7) Alcohol use disorder, severe, dependence: (8) HIV (human immunodeficiency virus infection): (9) COPD (chronic obstructive pulmonary disease): (10) Major depressive disorder, recurrent: Plan This is a 63-year-old white male with a long history of alcohol dependence, HIV, major depression with frequent hospitalizations with ICU stays and inpatient psychiatric treatment who presents post report of overdose attempt that I will denying and reporting there is verifiable evidence that he did not have a dose. He denies any other than a relapse and drunken talk. 1.? Continue current medication.? Consider naltrexone or Vivitrol. 2.? Consider transfer to Neuropsych Unit versus discharge when medically cleared. 3.? Obtain collateral information to determine whether an overdose occurred. 4.? Encourage sober living treatment after discharge hopefully an inpatient program.? 5.? Will continue to follow. Involuntary Hold Information 96 Hour Hold: 96 Hour Involuntary Admission: No Attestations NPU Medical Necessity Statement*: N/A. Follow-up for medical necessity. Coding Level of Care Code Acute [facility] Diagnoses Refeeding syndrome E87.8 Respiratory failure with hypoxia and hypercapnia J96.91; J96.92 Acute hypoxemic respiratory failure J96.01 Intentional overdose of trazodone T43.212A Alcohol intoxication F10.929 Suicide attempt T14.91XA Alcohol use disorder, severe, dependence F10.20 HIV (human immunodeficiency virus infection) B20 COPD (chronic obstructive pulmonary disease) J44.9 Major depressive disorder, recurrent F33.9
[2024-05-11] MEDS: sulfamethoxazole-trimeth DS 160-800 mg Tablet 1 TAB PO (19:27)
--- NOTE | 2024-05-11 19:40 | PC.NURSE ---
Shift summary: Pt remained alert and oriented throughout shift. CIWA remained less than 10 this shift. He did get fidgeting more so in the afternoon but was easily redirectable. He was expressing concern about fees his car with the breathalyzer may be incurring at this time. Sinus tachycardia noted on monitor. In am he had PACs, in evening he was having infrequent PVCs. His O2 sats were greater than 94% on his home amount of O2: 4lpm/NC. He had H/A in am but no further complaints of pain. He has had great urine output. He has ate his meals well.
[2024-05-12] VITALS (41 sets, daily range): BP systolic 78–134; BP diastolic 49–96; PULSE 73–114; RESP 14–32; TEMP 36.1–37.3; O2SAT 86–98; BMI 24.3
[2024-05-12] MEDS: LORazepam 2 mg/mL INJ 1 mL IVP ×3 (02:48→05:33)
--- NOTE | 2024-05-12 03:01 | PC.NURSE ---
Patient becoming more agitated throughout the night with last two CIWAs scoring 19 and 16, ativan given. Pt is hallucinating trying to make phone calls on the tv remote, pt chewed off his pulse ox and stated the dr is trying to blow him up with all these wires hooked up . Pt said he can't sleep because he is seeing things when he closes his eyes. Pt has stood up and urinated in the floor multiple times tonight. Currently sitting on the side of the bed staring at the wall.
[2024-05-12] MEDS: dexmedeTOMIDine 0.9 % NaCL 400 MCG/100 ML PREMIX IV (04:17)
--- NOTE | 2024-05-12 05:28 | PC.NURSE ---
0400 Pt behavior escalating, security and household worker at bedside, Dr. Platt notified, new order for precedex drip.
--- NOTE | 2024-05-12 05:40 | PC.NURSE ---
Precedex increased to 1mcg/kg/hr per Dr Platt's order.
--- NOTE | 2024-05-12 05:46 | PC.NURSE ---
Addendum entered by Lily Sellers RN 05/12/24 05:48: New orders per Dr. Platt. Original Note: New orders for Haloperidol 5 mg IVP once, Geodon 10 mg IM now PRN.
--- NOTE | 2024-05-12 08:08 | PC.NURSE ---
Precedex gtt stopped. Had it weaned down to 0.4 mcg/kg/hr. Unable to rouse pt with speaking to him nor repositioning him. BP dropped, Pt now hypotensive : 78/54.
--- NOTE | 2024-05-12 08:45 | PC.NURSE ---
Bp improvin/65. Rounding with Dr Osborn completed.
--- NOTE | 2024-05-12 09:15 | PC.NURSE ---
Pt remains resting with eyes closed, difficult to arouse. Will admin am medications when pt more alert. Dr Osborn aware.
--- NOTE | 2024-05-12 09:22 | P.PN_ITS ---
Subjective 2 Subjective: Patient was agitated overnight required multiple sedatives and Precedex This morning he is resting well Blood pressure and heart rate improved By the lunchtime he can be transferred to neuropsychiatric unit today Vitals/I&O/Wt Last Vital Signs Temp 99.2 F 05/12/24 07:15 Pulse 81 05/12/24 08:00 Resp 31 H 05/12/24 08:00 BP 78/54 05/12/24 08:00 Pulse Ox 86 L 05/12/24 08:00 O2 Del Method Nasal Cannula 05/12/24 07:59 O2 Flow Rate 4 05/12/24 08:00 05/11/24 05/12/24 05/12/24 22:59 06:59 14:59 Intake Total 890 / 2890 250.943 / 3140.943 34.777 / 34.777 Output Total 1500 / 3150 Balance -610 / -260 250.943 / -9.057 34.777 / 34.777 Weight last 48 hrs Weight 79 kg Weight 79 kg Weight 82.3 kg Weight 82.3 kg Weight 82.282 kg Physical Exam 2 Narrative: Patient is heavily sedated after getting sedatives on Precedex As per the nursing staff he was combative and moving all of his extremities No sign of stroke Blood pressure and heart rate improving Currently on 4 L nasal cannula Urinary Catheter Management: Barba: Cath Placed During This Visit: yes Urinary Catheter Date of Insertion: 12/25/21 Urinary Catheter Time of Insertion: 12:30 Data 05/11/24 04:43 05/11/24 04:43 A&P Assessment and plan (1) Suicide attempt by multiple drug overdose: (2) Alcohol use disorder, severe, dependence: (3) COPD (chronic obstructive pulmonary disease): Plan Will resume his home medications including sildenafil, Dovato, Bactrim, For A-fib continue Eliquis and added Cardizem Patient was agitated overnight required sedatives and Precedex This morning Precedex is off Improvement in blood pressure and heart rate noted By lunchtime we can transfer him to neuropsychiatric unit Medicine team will follow along Continue CIWA protocol For now we are holding also on sildenafil because of low blood pressure We are asking pharmacy to review his home medications because I am not able to order his medication because they are not in our formulary list, I have consulted pharmacy Attestations 2 Medical Necessity Statement*: Continue medical management Diagnoses Suicide attempt by multiple drug overdose T50.912A Alcohol use disorder, severe, dependence F10.20 COPD (chronic obstructive pulmonary disease) J44.9
[2024-05-12] MEDS: folic acid 1 mg Tablet PO (10:46)
[2024-05-12] MEDS: sulfamethoxazole-trimeth DS 160-800 mg Tablet 1 TAB PO ×2 (10:47→17:13)
[2024-05-12] MEDS: thiamine 100 mg Tablet PO (10:47)
[2024-05-12] MEDS: dilTIAZem ER (12HR) 60 mg Capsule PO ×2 (10:47→17:14)
[2024-05-12] MEDS: multivitamin therapeutic Tablet 1 TAB PO (10:48)
[2024-05-12] MEDS: nicotine 21 mg Patch 1 PATCH TRANSDERMA (10:48)
[2024-05-12] MEDS: apixaban 5 mg Tablet PO ×2 (10:55→20:21)
--- NOTE | 2024-05-12 11:03 | PC.NURSE ---
Pt alert enough to follow commands. Morning medications administered without difficulty.
[2024-05-12 13:14] LABS: Anion Gap 13.5 (5-19); Blood Urea Nitrogen 11 mg/dL (8-23); Calcium 8.4 mg/dL (8.5-10.5); Carbon Dioxide 23 mmol/L (22-29); Chloride 97 mmol/L (98-107); Creatinine Clr Calc Pharmacy 138.6306; Glomerular Filtration Rate 136.5 mL/min (90-130); Glucose 138 mg/dL (65-115); Magnesium 1.7 mg/dL (1.7-2.3); Osmolality Calculated 272 mOsm/kg (285-295); Potassium 3.5 mmol/L (3.5-5.1); Sodium 130 mmol/L (136-145)
--- NOTE | 2024-05-12 15:30 | PC.NURSE ---
Home medications: Dovato remove from the pyxis for daily admin of home med while pt hospitalized. The remaining home meds placed back into ICU pyxis for safekeeping.
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
[2024-05-12] MEDS: DOVATO 1 EACH PO (17:14)
--- NOTE | 2024-05-12 19:20 | PC.NURSE ---
Shift summary: Pt started the shift off sedated with snoring respirations noted. Precedex was infusing. Titrated it down then he became hpotensive, so gtt stopped. his BP started improving within half an hour. Snoring respirations remained. he missed breakfast due to his drowsiness. He started arousing somewhat around 1030. He was able to swallow well and take hi medications at that time. VSS. He was more alert around lunch, but still confusion lingered. he was talking about needing to get his keys and head home. Re-oriented pt to place and situation. He was unsteady on his feet. This am he did not pay attention to his O2 cannula or VS monitoring cables when he would get out of bed, increasing his risk for falling. His unsteadiness decreased throughout the shift. At end of shift he was able to ambulate to toilet with standby by assistance, he was aware of his cables and nasal cannula and adjusted accordingly for safety. His mother came in this afternoon for a visit which he slept through most of it. He had pulled his O2 cannula off but his O2 sats stayed at 90% while resting this afternoon. Throughout the mid day he would make comments about getting out of here, etc., it appeared he had forgotten his situation and the 96 hour hold again. He needed explanation of situation and 96 hour hold repeatedly this afternoon. He stayed calm and cooperative.
--- NOTE | 2024-05-12 20:29 | PC.NURSE ---
Addendum entered by LYN Phelan 05/12/24 21:15: The order was accidentally entered with Dr. Kendall rather than Dr. Kenney. Dr. Kenney gave this order and Dr. Kendall was not contacted in reference to this order. Original Note: Contacted Dr. Kenney in reference to patient's reported level of anxiety and asking for ativan, a medication that has helped in the past. Received orders for 1mg ativan PO once.
[2024-05-12] MEDS: LORazepam 1 mg Tablet PO (20:36)
--- NOTE | 2024-05-12 23:13 | PC.NURSE ---
Contacted Dr. Kenney in reference to patient complaining of 8/[address] Kenney input orders for Toradol 15mg IVP once.
[2024-05-12] MEDS: ketorolac 30 mg/mL INJ 15 MG IVP (23:37)
[2024-05-13] VITALS (19 sets, daily range): BP systolic 81–127; BP diastolic 51–98; PULSE 74–115; RESP 15–31; TEMP 37.6–37.9; O2SAT 88–97
[2024-05-13] MEDS: prochlorperazine 10 mg/2 mL Inj IVP (01:04)
[2024-05-13] MEDS: lanolin oint 7 gm 1 APPLIC TOPICAL (01:10)
--- NOTE | 2024-05-13 01:12 | PC.NURSE ---
Contacted Dr. Kenney in reference to patient still complaining of headache, 7 pain after toradol administration at about 2330. Received orders for compazine 10mg IVP once.
[2024-05-13] MEDS: thiamine 100 mg Tablet PO (08:47)
[2024-05-13] MEDS: apixaban 5 mg Tablet PO (08:48)
[2024-05-13] MEDS: folic acid 1 mg Tablet PO (08:48)
[2024-05-13] MEDS: sulfamethoxazole-trimeth DS 160-800 mg Tablet 1 TAB PO (08:48)
[2024-05-13] MEDS: nicotine 21 mg Patch 1 PATCH TRANSDERMA (08:49)
[2024-05-13] MEDS: multivitamin therapeutic Tablet 1 TAB PO (08:49)
[2024-05-13] MEDS: dilTIAZem ER (12HR) 60 mg Capsule PO (08:49)
[2024-05-13] MEDS: DOVATO 1 EACH PO (08:50)
--- NOTE | 2024-05-13 10:57 | PM.DCS ---
Discharge Providers Date of Admission: 05/10/24 10:01 Date of Discharge: May 13, 2024 Attending Provider at Admission: Dianne Galvan MD Attending Provider at Discharge: Kenny Osborn MD Primary Care Provider: Rafael Kendall MD Diagnoses at Discharge Discharge Diagnosis (1) Refeeding syndrome: Status: Resolved (2) Respiratory failure with hypoxia and hypercapnia: Status: Acute (3) Acute hypoxemic respiratory failure: Status: Resolved (4) Intentional overdose of trazodone: Status: Acute (5) Alcohol intoxication: Status: Resolved (6) Suicide attempt: Status: Acute (7) Alcohol use disorder, severe, dependence: Status: Acute (8) HIV (human immunodeficiency virus infection): Status: Acute (9) COPD (chronic obstructive pulmonary disease): Status: Acute Permanent problem details: Severe COPD (10) Major depressive disorder, recurrent: Status: Chronic Reason for Visit Reason for Visit: overdose Hospital Course Hospital Course 61-year-old male who present to the hospital intoxicated, has alcohol dependency, HIV, major depression, previous hospitalization for suicidal ideation overdose of mirtazapine or trazodone, patient was put on CIWA protocol and admitted to the ICU, patient went became sober stated that he remained sober for about 85 days and then started drinking again, he called EMS by himself, patient is denying suicidal ideation, he was on 96-hour hold which was rescinded after Dr. Villalobos's evaluation, patient is deemed stable to be discharged home as per psychiatrist, he remained hemodynamically stable, please not for his agitation he required sedatives. Patient lives alone he takes his medications compliantly such as Dovato, Eliquis, sildenafil for pulmonary hypertension and Bactrim. Dr. Villalobos stated that he will arrange outpatient behavioral health/outpatient psychiatrist for this patient. Physical Exam Narrative: Euvolemic Currently on 2 L nasal cannula, at baseline uses up to 4, GCS 15 Nonfocal neuroexam No active suicidal ideation Urinary Catheter Management: Barba: Cath Placed During This Visit: yes Urinary Catheter Date of Insertion: 12/25/21 Urinary Catheter Time of Insertion: 12:30 Discharge Data Studies Completed and Pending Completed Studies During Hospitalization Category Date Time Status XR chest 1V portable [id number] Routine Exams 05/10/24 17:42 Completed Radiology Impressions Chest X-Ray 05/10/24 17:42 IMPRESSION: 1. Mid to lower right lung hazy opacities compatible with atelectasis or developing infection in the proper clinical setting. 2. Emphysematous changes. Laboratory Results WBC 5.56 10^3/uL (3.29-11.43) 05/11/24 04:43 RBC 4.24 10^6/uL (3.85-5.65) 05/11/24 04:43 Hgb 13.90 g/dL (11.27-16.99) 05/11/24 04:43 Hct 41.2 % (37-53) 05/11/24 04:43 MCV 97.2 fl (82-101) 05/11/24 04:43 MCH 32.8 pg (27-33) 05/11/24 04:43 MCHC 33.7 g/dL (30-55) 05/11/24 04:43 RDW 13.5 % (12.1-15.1) 05/11/24 04:43 Plt Count 112 10^3/cmm (157-399) L 05/11/24 04:43 MPV 9.0 fL (7.4-10.4) 05/11/24 04:43 Neut % (Auto) 65.2 % 05/11/24 04:43 Lymph % (Auto) 24.6 % 05/11/24 04:43 Bullock % (Auto) 7.7 % 05/11/24 04:43 Eos % (Auto) 1.8 % 05/11/24 04:43 Baso % (Auto) 0.7 % 05/11/24 04:43 Neut # (Auto) 3.62 10^3/uL (1.8-7.7) 05/11/24 04:43 Lymph # (Auto) 1.4 10^3/uL (0.8-4.8) 05/11/24 04:43 Bullock # (Auto) 0.4 10^3/uL (0.2-0.9) 05/11/24 04:43 Eos # (Auto) 0.1 10^3/uL (0.0-0.8) 05/11/24 04:43 Baso # (Auto) 0.0 10^3/uL (0.0-0.1) 05/11/24 04:43 Nucleated RBC % (auto) 0 % 05/11/24 04:43 Nucleated RBCs # 0.0 /100WBC 05/11/24 04:43 PT 14.20 SECONDS (12.1-14.9) 05/10/24 09:05 INR 1.07 (0.8-1.2) 05/10/24 09:05 Sodium 130 mmol/L (136-145) L 05/12/24 12:46 Potassium 3.5 mmol/L (3.5-5.1) 05/12/24 12:46 Chloride 97 mmol/L (98-107) L 05/12/24 12:46 Carbon Dioxide 23 mmol/L (22-29) 05/12/24 12:46 Anion Gap 13.5 (5-19) 05/12/24 12:46 BUN 11 mg/dL (8-23) 05/12/24 12:46 Creatinine 0.6 mg/dL (0.7-1.2) L 05/12/24 12:46 GFR Calculation 136.5 mL/min (90-130) H 05/12/24 12:46 Glucose 138 mg/dL (65-115) H 05/12/24 12:46 Calculated Osmolality 272 mOsm/kg (285-295) L 05/12/24 12:46 Lactic Acid 4.7 mmol/L (0.5-2.2) H* 05/10/24 09:05 Lactic Acid (Sepsis) 4.6 mmol/L (0.5-2.2) H* 05/10/24 12:25 Calcium 8.4 mg/dL (8.5-10.5) L 05/12/24 12:46 Magnesium 1.7 mg/dL (1.7-2.3) 05/12/24 12:46 Total Bilirubin 2.0 mg/dL (0.15-1.2) H 05/11/24 04:43 AST 61 U/L (0-40) H 05/11/24 04:43 ALT 18 U/L (0-41) 05/11/24 04:43 Alkaline Phosphatase 128 U/L (40-130) 05/11/24 04:43 Total Protein 5.7 g/dL (6.6-8.7) L 05/11/24 04:43 Albumin 3.4 g/dL (3.5-5.2) L 05/11/24 04:43 Globulin 2.3 g/dL (1.3-4.6) 05/11/24 04:43 Vitamin B12 468 pg/mL (232-1245) 05/10/24 09:05 Procalcitonin 0.04 ng/mL (0-0.5) 05/10/24 09:15 Urine Color Yellow (Yellow) 05/10/24 09:23 Urine Appearance Clear (CLEAR) 05/10/24 09:23 Urine pH 7.0 (5-7) 05/10/24 09:23 Ur Specific [place] 1.008 (1.005-1.030) 05/10/24 09:23 Urine Protein Negative (Negative) 05/10/24 09:23 Urine Glucose (UA) Negative (Normal) 05/10/24 09:23 Urine Ketones Negative (Negative) 05/10/24 09:23 Urine Blood Negative (Negative) 05/10/24 09:23 Urine Nitrate Negative (Negative) 05/10/24 09:23 Urine Bilirubin Negative (Negative) 05/10/24 09:23 Urine Urobilinogen 1.0 mg/dL (Negative) 05/10/24 09:23 Ur Leukocyte Esterase Negative (Negative) 05/10/24 09:23 Urine RBC 0-2 /hpf (0-2) 05/10/24 09:23 Urine WBC 0-5 /hpf (0-5) 05/10/24 09:23 Ur Squamous Epith Cells 0-5 /hpf (0-5) 05/10/24 09:23 Amorphous Sediment Not Reportable 05/10/24 09:23 Urine Bacteria None seen /hpf (NONE) 05/10/24 09:23 Hyaline Casts 0-4 /lpf H 05/10/24 09:23 Salicylates < 0.3 mg/dL (3-10) L 05/10/24 09:05 Urine Opiates Screen Negative ng/mL (Negative) 05/10/24 09:27 Acetaminophen < 5.0 ug/mL (10-30) L 05/10/24 09:05 Ur Barbiturates Screen Negative ng/mL (Negative) 05/10/24 09:27 Ur Phencyclidine Scrn Negative ng/mL (Negative) 05/10/24 09:27 Ur Amphetamines Screen Negative ng/mL (Negative) 05/10/24 09:27 U Benzodiazepines Scrn Negative ng/mL (Negative) 05/10/24 09:27 Urine Cocaine Screen Negative ng/mL (Negative) 05/10/24 09:27 U Marijuana (THC) Screen Negative ng/mL (Negative) 05/10/24 09:27 Ethyl Alcohol 323 mg/dL (0-10) H* 05/10/24 09:05 Vitals Last Vital Signs Temp 100.3 F H 05/13/24 08:00 Pulse 79 05/13/24 08:49 Resp 16 05/13/24 08:49 BP 120/86 05/13/24 08:00 Pulse Ox 92 05/13/24 08:49 O2 Del Method Room Air 05/13/24 08:49 O2 Flow Rate 4 05/13/24 04:00 Discharge Plan Discharge Patient Disposition: Home Condition: Stable Prescriptions: Continued albuterol sulfate [Ventolin HFA] 90 mcg/actuation HFA aerosol inhaler 2 inh inhalation 6XD PRN (Reason: shortness of breath or wheezing) Qty: 8.5 2RF multivitamin Tablet 1 tab PO QAM Opsumit 10 mg tablet 10 mg PO QAM sildenafil (pulm.hypertension) 20 mg tablet 20 mg PO TID Dovato 50-300 mg tablet 1 tab PO QAM mirtazapine 15 mg tablet 15 mg PO BEDTIME testosterone 20.25 mg/1.25 gram (1.62 %) gel in metered-dose pump 2 pump topical QAM fluconazole 50 mg tablet 50 mg PO QAM azelastine 137 mcg (0.1 %) aerosol,spray 2 spray INTRANASAL BID diltiazem HCl 30 mg tablet 30 mg PO QAM Eliquis 5 mg tablet 5 mg PO BID ipratropium-albuterol 0.5 mg-3 mg(2.5 mg base)/3 mL solution for nebulization 3 ml inhalation Q4H PRN (Reason: shortness of breath or wheezing) Qty: 90 0RF Breztri Aerosphere 160-9-4.8 mcg/actuation HFA aerosol inhaler 2 inh INHALATION TID Airsupra 90-80 mcg/actuation HFA aerosol inhaler 2 inh INHALATION Q4H PRN (Reason: Shortness Of Breath) sulfamethoxazole-trimethoprim 800-160 mg tablet 1 tab PO .MON,WED,FRI potassium chloride 20 mEq tablet extended release 20 meq PO BID Qty: 6 0RF nicotine 21 mg/24 hr Patch 24 Hour 1 patch transdermal DAILY Qty: 30 3RF nicotine (polacrilex) 4 mg Lozenge 4 mg mucous membrane Q4H PRN (Reason: Nicotine Cravings) Qty: 108 3RF Discontinued trazodone 150 mg tablet 300 mg PO BEDTIME Discharge Orders: Discharge Order (Routine); Ordered 05/13/24 Ordered By: Kenny Osborn Referrals: Rafael Kendall MD [Primary Care Provider] - Patient Instructions: Opioid Safety Discharge Attestations Time Spent in Discharge Care*: greater than 30 min Status at Discharge: Cognitive status at discharge: cognitively intact, Behavioral status at discharge: can be uncooperative, Quality Metrics Clinical Quality Measures [ No reported AMI, CVA or VTE this stay] Coding Level of Care Code Acute Code for [facility] Fwd Diagnoses Refeeding syndrome E87.8 Respiratory failure with hypoxia and hypercapnia J96.91; J96.92 Acute hypoxemic respiratory failure J96.01 Intentional overdose of trazodone T43.212A Alcohol intoxication F10.929 Suicide attempt T14.91XA Alcohol use disorder, severe, dependence F10.20 HIV (human immunodeficiency virus infection) B20 COPD (chronic obstructive pulmonary disease) J44.9 Major depressive disorder, recurrent F33.9
== END 2024-05-13 13:35 | disposition home or self-care (01) | DRG 917 ==
LOC: ER 10:05 → ICU 11:16
PROVIDERS: Admitting Provider Internal Medicine; Emergency Provider Emergency Medicine; PCP Family Medicine; Visit Provider Internal Medicine
DX: T43.212A Poisoning by selective serotonin and norepinephrine reuptake inhibitors, intentional self-harm, initial encounter (principal); J96.01 Acute respiratory failure with hypoxia; F33.9 Major depressive disorder, recurrent, unspecified; F10.229 Alcohol dependence with intoxication, unspecified; Y90.8 Blood alcohol level of 240 mg/100 ml or more; J44.9 Chronic obstructive pulmonary disease, unspecified; I48.91 Unspecified atrial fibrillation; F43.10 Post-traumatic stress disorder, unspecified; I27.20 Pulmonary hypertension, unspecified; E29.1 Testicular hypofunction; Z21 Asymptomatic human immunodeficiency virus [HIV] infection status; Z79.01 Long term (current) use of anticoagulants; Z79.51 Long term (current) use of inhaled steroids; Z79.891 Long term (current) use of opiate analgesic; Z87.11 Personal history of peptic ulcer disease; Z86.718 Personal history of other venous thrombosis and embolism; Z86.0100 Personal history of colon polyps, unspecified; Z85.72 Personal history of non-Hodgkin lymphomas; Z90.79 Acquired absence of other genital organ(s); Z87.891 Personal history of nicotine dependence; Z99.81 Dependence on supplemental oxygen
CPT/HCPCS: 36415; 71045; 80048; 80053; 80306; 80307; 81001; 82607; 83605; 83735; 84145; 85025; 85610; 90471; 90686; 90732; 93005; 94640; 94664; 96372; 96374; 96376; 99285; J0780; J1644; J1885; J2060; J2405; J3411; J7030

== ENCOUNTER → 2024-08-13 07:51 | Outpatient (BNVA) | payer MEDICARE, MEDICAID, SELFPAY | PROVIDERS: PCP Family Medicine; Visit Provider Nurse Practitioner Family | DX: L82.1 Other seborrheic keratosis (principal); L81.4 Other melanin hyperpigmentation; Z08 Encounter for follow-up examination after completed treatment for malignant neoplasm; Z85.828 Personal history of other malignant neoplasm of skin; D48.5 Neoplasm of uncertain behavior of skin | CPT/HCPCS: 11102; 99213 ==

== ENCOUNTER → 2024-09-05 08:52 | Outpatient (BNVA) | payer MEDICARE, MEDICAID, SELFPAY | PROVIDERS: PCP Family Medicine; Visit Provider Thoracic Surgery (Cardiothoracic Vascular Surgery) | DX: I96 Gangrene, not elsewhere classified (principal); L89.220 Pressure ulcer of left hip, unstageable | CPT/HCPCS: 99213 ==

== ENCOUNTER → 2024-09-17 13:06 | Outpatient (BNVA) | payer MEDICARE, MEDICAID, SELFPAY | PROVIDERS: PCP Family Medicine; Visit Provider Thoracic Surgery (Cardiothoracic Vascular Surgery) | DX: I96 Gangrene, not elsewhere classified (principal); L89.220 Pressure ulcer of left hip, unstageable | CPT/HCPCS: 11042; A6021; A6248 ==

== ENCOUNTER → 2024-09-24 11:06 | Outpatient (BNVA) | payer MEDICARE, MEDICAID, SELFPAY | PROVIDERS: PCP Family Medicine; Visit Provider Thoracic Surgery (Cardiothoracic Vascular Surgery) | DX: I96 Gangrene, not elsewhere classified (principal); L89.220 Pressure ulcer of left hip, unstageable | CPT/HCPCS: 11042; A6021; A6212 ==

== ENCOUNTER → 2024-10-01 12:54 | Outpatient (BNVA) | payer MEDICARE, MEDICAID, SELFPAY | PROVIDERS: PCP Family Medicine; Visit Provider Thoracic Surgery (Cardiothoracic Vascular Surgery) | DX: I96 Gangrene, not elsewhere classified (principal); L89.893 Pressure ulcer of other site, stage 3 | CPT/HCPCS: 11042; A6210 ==

== ENCOUNTER → 2024-10-08 13:30 | Outpatient (BNVA) | payer MEDICARE, MEDICAID, SELFPAY | PROVIDERS: PCP Family Medicine; Visit Provider Thoracic Surgery (Cardiothoracic Vascular Surgery) | DX: L89.223 Pressure ulcer of left hip, stage 3 (principal) | CPT/HCPCS: 11042; A6210; A6248 ==

== ENCOUNTER → 2024-10-15 10:15 | Outpatient (BNVA) | payer MEDICARE, MEDICAID, SELFPAY | PROVIDERS: PCP Family Medicine; Visit Provider Thoracic Surgery (Cardiothoracic Vascular Surgery) | DX: I96 Gangrene, not elsewhere classified (principal); L89.223 Pressure ulcer of left hip, stage 3; L89.891 Pressure ulcer of other site, stage 1 | CPT/HCPCS: 11042; 97597; A6210; A6212 ==

== ENCOUNTER → 2024-10-22 13:18 | Outpatient (BNVA) | payer MEDICARE, MEDICAID, SELFPAY | PROVIDERS: PCP Family Medicine; Visit Provider Thoracic Surgery (Cardiothoracic Vascular Surgery) | DX: I96 Gangrene, not elsewhere classified (principal); L89.223 Pressure ulcer of left hip, stage 3; L89.891 Pressure ulcer of other site, stage 1 | CPT/HCPCS: 11042; A6021; A6210; A6212 ==

== ENCOUNTER 2024-10-27 13:26 | Outpatient (CLI) | payer MEDICARE, MEDICAID, SELFPAY ==
--- NOTE | 2024-10-27 13:32 | MR_ITS ---
WS: [id number] MRI BRAIN WITHOUT CONTRAST HISTORY: INTERMITTENT CONFUSION, history of lymphoma. COMPARISON: 05/14/2015 TECHNIQUE: Diffusion imaging, multiplanar T1, T2 and FLAIR imaging obtained. No acute infarct. Normal diffusion imaging. Bilateral T1 hyperintensity in the globus pallidus. Otherwise scattered small vessel ischemic changes have mildly progressed since 2015. Progression of mild diffuse volume loss and atrophy. No large infarct. Minimal hippocampal atrophy. Ventricles and extra-axial spaces are normal. No inferior displacement of cerebellar tonsils. The sella turcica and pituitary gland are unremarkable. Dural venous sinuses and yurok of [place] demonstrate no abnormality on this unenhanced studies. Paranasal sinuses: Clear. Mastoid air cells: Normal. Calvarium and scalp: Skull is intact. Scalp nodule over the LEFT frontal region is a small sebaceous cyst. This is stable. MR/MR head wo con* [id number] IMPRESSION: 1. No acute infarct or hemorrhage. 2. Bilateral T1 hyperintensities in the globus pallidus. This can be seen with hepatic encephalopathy. Correlate clinically with acute or chronic liver disea se. 3. Progression of cerebral and cerebellar atrophy and small vessel disease sin ce 2015.
== END 2024-10-27 13:27 | disposition home or self-care (01) ==
PROVIDERS: PCP Family Medicine; Visit Provider Family Medicine
DX: R41.0 Disorientation, unspecified (principal); R93.0 Abnormal findings on diagnostic imaging of skull and head, not elsewhere classified; G31.89 Other specified degenerative diseases of nervous system; L72.3 Sebaceous cyst
CPT/HCPCS: 70551

== ENCOUNTER → 2024-11-05 13:12 | Outpatient (BNVA) | payer MEDICARE, MEDICAID, SELFPAY | PROVIDERS: PCP Family Medicine | DX: I96 Gangrene, not elsewhere classified (principal); L89.223 Pressure ulcer of left hip, stage 3; L89.891 Pressure ulcer of other site, stage 1; S91.104A Unspecified open wound of right lesser toe(s) without damage to nail, initial encounter; X58.XXXA Exposure to other specified factors, initial encounter | CPT/HCPCS: 11042; 87070; 97597; A6021; A6212 ==

== ENCOUNTER 2024-11-07 13:21 | Outpatient (CLI) | payer MEDICARE, MEDICAID, SELFPAY ==
--- NOTE | 2024-11-07 13:30 | XR_ITS ---
WS: [id number] Right foot, 3 views, 11/07/2024 Clinical Data: Attention 5th Toe-Pain Comparison: None. Findings: No fractures or dislocations are seen. No bone destruction or erosion is noted. There are flexion deformities of the right second through fifth toes. The right fourth and fifth toes also have an additional medial subluxation. There is intra medullary guillermina in the distal right tibia fixed with orthopedic screws. XR/XR foot RT min 3V* [id number] Impression: 1. Flexion deformities of the right second through fifth toes. 2. Additional medial subluxations of the right fourth and fifth toes.
== END 2024-11-07 13:22 | disposition home or self-care (01) ==
LOC: RAD 13:23
PROVIDERS: PCP Family Medicine
DX: S91.104A Unspecified open wound of right lesser toe(s) without damage to nail, initial encounter (principal); M21.271 Flexion deformity, right ankle and toes; S93.104A Unspecified dislocation of right toe(s), initial encounter; X58.XXXA Exposure to other specified factors, initial encounter; Z98.890 Other specified postprocedural states
CPT/HCPCS: 73630

== ENCOUNTER → 2024-11-13 11:15 | Outpatient (BNVA) | payer MEDICARE, MEDICAID, SELFPAY | PROVIDERS: PCP Family Medicine; Visit Provider Thoracic Surgery (Cardiothoracic Vascular Surgery) | DX: I96 Gangrene, not elsewhere classified (principal); L89.893 Pressure ulcer of other site, stage 3; L89.891 Pressure ulcer of other site, stage 1; L97.511 Non-pressure chronic ulcer of other part of right foot limited to breakdown of skin | CPT/HCPCS: 97597; A6021; A6210 ==

== ENCOUNTER → 2024-11-20 10:53 | Outpatient (BNVA) | payer MEDICARE, MEDICAID, SELFPAY | PROVIDERS: PCP Family Medicine; Visit Provider Thoracic Surgery (Cardiothoracic Vascular Surgery) | DX: I96 Gangrene, not elsewhere classified (principal); L89.893 Pressure ulcer of other site, stage 3; L89.891 Pressure ulcer of other site, stage 1 | CPT/HCPCS: 97597; A6212 ==

== ENCOUNTER → 2024-11-27 13:19 | Outpatient (BNVA) | payer MEDICARE, MEDICAID, SELFPAY | PROVIDERS: PCP Family Medicine; Visit Provider Thoracic Surgery (Cardiothoracic Vascular Surgery) | DX: L89.891 Pressure ulcer of other site, stage 1 (principal); Z09 Encounter for follow-up examination after completed treatment for conditions other than malignant neoplasm | CPT/HCPCS: 97597; A6210 ==

== ENCOUNTER → 2024-12-03 13:08 | Outpatient (BNVA) | payer MEDICARE, MEDICAID, SELFPAY | PROVIDERS: PCP Family Medicine; Visit Provider Thoracic Surgery (Cardiothoracic Vascular Surgery) | DX: L89.891 Pressure ulcer of other site, stage 1 (principal) | CPT/HCPCS: 97597; A6210 ==

== ENCOUNTER → 2024-12-10 11:07 | Outpatient (BNVA) | payer MEDICARE, MEDICAID, SELFPAY | PROVIDERS: PCP Family Medicine; Visit Provider Thoracic Surgery (Cardiothoracic Vascular Surgery) | DX: L89.891 Pressure ulcer of other site, stage 1 (principal) | CPT/HCPCS: 97597; A6210 ==

== ENCOUNTER → 2024-12-19 11:42 | Outpatient (BNVA) | payer MEDICARE, MEDICAID, SELFPAY | PROVIDERS: PCP Family Medicine; Visit Provider Thoracic Surgery (Cardiothoracic Vascular Surgery) | DX: L89.891 Pressure ulcer of other site, stage 1 (principal) | CPT/HCPCS: 97597 ==

== ENCOUNTER → 2025-01-02 09:45 | Outpatient (BNVA) | payer MEDICARE, MEDICAID, SELFPAY | PROVIDERS: PCP Family Medicine; Visit Provider Thoracic Surgery (Cardiothoracic Vascular Surgery) | DX: I96 Gangrene, not elsewhere classified (principal); S90.424D Blister (nonthermal), right lesser toe(s), subsequent encounter; X58.XXXD Exposure to other specified factors, subsequent encounter | CPT/HCPCS: 97597 ==

== ENCOUNTER → 2025-01-16 09:55 | Outpatient (BNVA) | payer MEDICARE, MEDICAID, SELFPAY | PROVIDERS: PCP Family Medicine; Visit Provider Thoracic Surgery (Cardiothoracic Vascular Surgery) | DX: I96 Gangrene, not elsewhere classified (principal); L97.511 Non-pressure chronic ulcer of other part of right foot limited to breakdown of skin | CPT/HCPCS: 97597 ==

== ENCOUNTER → 2025-01-20 13:05 | Outpatient (BNVA) | payer MEDICARE, MEDICAID, SELFPAY | PROVIDERS: PCP Family Medicine; Visit Provider Podiatrist Foot & Ankle Surgery | DX: M79.671 Pain in right foot (principal); L84 Corns and callosities; M20.41 Other hammer toe(s) (acquired), right foot | CPT/HCPCS: 99203 ==

== ENCOUNTER → 2025-03-17 14:36 | Outpatient (BNVA) | payer MEDICARE, MEDICAID, SELFPAY | PROVIDERS: PCP Family Medicine; Visit Provider Podiatrist Foot & Ankle Surgery | DX: M79.671 Pain in right foot (principal); L84 Corns and callosities; M20.41 Other hammer toe(s) (acquired), right foot | CPT/HCPCS: 99213 ==

== ENCOUNTER 2025-05-19 09:57 | Outpatient (CLI) | payer MEDICARE, MEDICAID, SELFPAY ==
[2025-05-19 10:14] VITALS: PULSE 101; RESP 20; O2SAT 93
== END 2025-05-19 09:58 | disposition home or self-care (01) ==
LOC: RT 09:59
PROVIDERS: PCP Family Medicine; Visit Provider Internal Medicine
DX: I27.21 Secondary pulmonary arterial hypertension (principal); J96.11 Chronic respiratory failure with hypoxia; J44.9 Chronic obstructive pulmonary disease, unspecified; R94.2 Abnormal results of pulmonary function studies
CPT/HCPCS: 94060; 94726; 94729; J7613